=== PATIENT | female | born 1990 | race Caucasian/White ===

== ENCOUNTER 2019-10-07 11:23 | Emergency (ER) | payer OTHER ==
--- OUTSIDE RECORDS SUMMARY | 2019-10-07 11:28 | XMS REPORT ---
:1990 [facility] [address] [place] [address] Care Team Providers Name Role Phone MURPHY BARRIOS Unavailable Unavailable CAROLINA THOMPSON Unavailable Unavailable CIRILO ALAMO Unavailable Unavailable Payers Payer Name Policy Type Policy Number Effective Date Expiration Date Problems This patient has no known problems. Allergies, Adverse Reactions, Alerts Allergy Name Allergy Status Severity Reaction(s) Onset Inactive Treating Comments Type Date Date Clinician Sulfa DA Active [place] (Sulfonamide 08-10 Antibiotics) 00:00: 00 morphine DA Active [place] 08-10 00:00: 00 divalproex DA Active [place] sodium 08-10 00:00: 00 ethosuximide DA Active [place] 08-10 00:00: 00 adhesive DA Active [place] 08-10 00:00: 00 tizanidine DA Active [place] 08-10 00:00: 00 levetiracetam DA Active SV 08-10 00:00: 00 latex DA Active [place] 08-10 00:00: 00 Sulfa DA Active [place] (Sulfonamide 07-14 Antibiotics) 00:00: 00 morphine DA Active [place] 07-14 00:00: 00 divalproex DA Active [place] sodium 07-14 00:00: 00 ethosuximide DA Active [place] 07-14 00:00: 00 adhesive DA Active [place] 0 07-14 00:00: 00 tizanidine DA Active [place] 07-14 00:00: 00 levetiracetam DA Active 07-14 00:00: 00 latex DA Active [place] 07-14 00:00: 00 Medications This patient has no known medications. Results Test Description Test Time Test Comments Text Results Atomic Results Result Comments BASIC METABOLIC PANEL 2019-06-23 20:26:00 Test Item Value Reference Range Comments SODIUM (test code=NA) 140 mmol/l 134.0-147.0 POTASSIUM (test code=K) 4.4 mmol/L 3.6-5.2 CHLORIDE (test code=CL) 106 mmol/l 98.0-107.0 CARBON DIOXIDE (test code=CO2) 24.6 mmol/l 21.0-33.0 ANION GAP (test code=GAP) 13.8 0-20 GLUCOSE (test code=GLU) 103 mg/dl 70.0-110.0 BLOOD UREA NITROGEN (test code=BUN) 11 mg/dl 7.0-18.0 CREATININE (test code=CREAT) 0.86 mg/dL 0.60-1.30 GFR NON BLACK (test code=GFRNONBLACK) 82 mL/min 105-110 GFR BLACK (test code=GFRBLACK) 99 mL/min 127-133 CALCIUM (test code=CA) 9.0 mg/dl 8.0-10.5 BASIC METABOLIC [id number] 20:24:00 Test Item Value Reference Range Comments SODIUM (test code=NA) 140 mmol/l 134.0-147.0 POTASSIUM (test code=K) 4.4 mmol/L 3.6-5.2 CHLORIDE (test code=CL) 106 mmol/l 98.0-107.0 CARBON DIOXIDE (test code=CO2) 24.6 mmol/l 21.0-33.0 ANION GAP (test code=GAP) 13.8 0-20 GLUCOSE (test code=GLU) mg/dl 70.0-110.0 BLOOD UREA NITROGEN (test code=BUN) mg/dl 7.0-18.0 CREATININE (test code=CREAT) mg/dL 0.60-1.30 GFR NON BLACK (test code=GFRNONBLACK) mL/min 105-110 GFR BLACK (test code=GFRBLACK) mL/min 127-133 CALCIUM (test code=CA) mg/dl 8.0-10.5 CBC W/AUTO [id number] 20:19:00 Test Item Value Reference Range Comments WHITE BLOOD CELL (test code=WBC) 9.8 K/mm3 4.5-11.0 RED BLOOD CELL (test code=RBC) 4.45 M/mm3 3.80-5.20 HEMOGLOBIN (test code=HGB) 12.8 gm/dL 12.0-16.0 HEMATOCRIT (test code=HCT) 39.0 % 36.0-48.0 MEAN CELL VOLUME (test code=MCV) 87.6 UM3 82.0-99.0 MEAN CELL HGB (test code=MCH) 28.8 UUG 25.5-32.5 MEAN CELL HGB CONCETRATION (test code=MCHC) 32.8 gm/dL 29.0-35.5 RED CELL DISTRIBUTION WIDTH (test code=RDW) 13.4 % 11.5-15.0 RED CELL DISTRIBUTION WIDTH SD (test 42.6 fL 34.8-50.2 code=RDW-SD) PLATELET COUNT (test code=PLT) 418 K/mm3 150-400 MEAN PLATELET VOLUME (test code=MPV) 9.4 fl 7.4-10.4 NEUTROPHIL % (test code=NT%) 70.6 % 49.0-76.0 IMMATURE GRANULOCYTE % (test code=IG%) 0.3 % 0.0-0.4 LYMPHOCYTE % (test code=LY%) 20.2 % 23.0-38.0 MONOCYTE % (test code=MO%) 7.1 % 1.0-10.0 EOSINOPHIL % (test code=EO%) 1.4 % 1.0-5.0 BASOPHIL % (test code=BA%) 0.4 % 0.0-1.0 NEUTROPHIL # (test code=NT#) 6.9 K/mm3 2.4-6.3 IMMATURE GRANULOCYTE # (test code=IG#) 0.03 x10 3/uL 0.00-0.07 LYMPHOCYTE # (test code=LY#) 2.0 K/mm3 1.2-4.0 MONOCYTE # (test code=MO#) 0.7 K/mm3 0.0-0.6 EOSINOPHIL # (test code=EO#) 0.1 K/MM3 0.0-0.7 BASOPHIL # (test code=BA#) 0.0 K/mm3 0.0-0.2 - XR CHEST 1 [id number] 19:51:00 FAX: Romero Zamarripa MD [phone] [place]: St: REG Name: [facility] : 1990 Age/S: 29/F [address] [facility] Unit#: [id number] Loc: E.ERS2 [place], [place]: [place] [address] Acct: [id number] Dis Date: Status: REG ER PHONE #: [phone] Exam Date: 06/23/20191946 FAX #: [phone] Reason: SOB EXAMS: CPT CODE : [id number] XR CHEST 1 V 36921 AP VIEW OF THE CHEST LOCATION: R16 CLINICAL HISTORY: Shortness of breath. COMPARISON: Chest radiograph 04/16/2019. FINDINGS: The cardiomediastinal shadow is within normal limits. The lungs are clear. No pleural fluids. No acute bony abnormality is found. IMPRESSION: Unremarkable radiographic study of the chest. at 1950 Reported and signed by: Lilibeth Forbes M.D. CC: Romero Zamarripa MD Technologist: NEGRO GEE Trnscrd Date/Time/By: 06/23/2019 (1950) : By: Destin PAGE1 Signed Report FAX: Romero Zamarripa MD [phone] [place]: St: REG Name: [facility] : 1990 Age/S: 29/F [address] [facility] Unit #: [id number] Loc: E.[facility] [place], [place]: [place] [address] Acct: [id number] Dis Date: Status: REG ER PHONE #: [phone] Exam Date: 06/23/20191946 FAX #: [phone] Reason: SOB EXAMS: CPT CODE: [id number] XR CHEST 1 V 54518 <Continued> Orig Print D/T: S: 06/23/2019 (1953) PAGE 2 Signed ReportBASIC METABOLIC [id number] 07:11:00 Test Item Value Reference Range Comments SODIUM (test code=NA) 138 mmol/l 134.0-147.0 POTASSIUM (test code=K) 3.6 mmol/L 3.6-5.2 CHLORIDE (test code=CL) 105 mmol/l 98.0-107.0 CARBON DIOXIDE (test code=CO2) 25.9 mmol/l 21.0-33.0 ANION GAP (test code=GAP) 10.7 0-20 GLUCOSE (test code=GLU) 112 mg/dl 70.0-110.0 BLOOD UREA NITROGEN (test code=BUN) 7 mg/dl 7.0-18.0 CREATININE (test code=CREAT) 0.56 mg/dL 0.60-1.30 GFR NON BLACK (test code=GFRNONBLACK) 135 mL/min 105-110 GFR BLACK (test code=GFRBLACK) 163 mL/min 127-133 CALCIUM (test code=CA) 8.2 mg/dl 8.0-10.5 [id number] 07:11:00 Test Item Value Reference Range Comments MAGNESIUM (test code=MAG) 2.2 mg/dl 1.8-2.4 CBC W/AUTO [id number] 07:09:00 Test Item Value Reference Range Comments WHITE BLOOD CELL (test code=WBC) 6.8 K/mm3 4.5-11.0 RED BLOOD CELL (test code=RBC) 3.75 M/mm3 3.80-5.20 HEMOGLOBIN (test code=HGB) 10.8 gm/dL 12.0-16.0 HEMATOCRIT (test code=HCT) 34.6 % 36.0-48.0 MEAN CELL VOLUME (test code=MCV) 92.3 UM3 82.0-99.0 MEAN CELL HGB (test code=MCH) 28.8 UUG 25.5-32.5 MEAN CELL HGB CONCETRATION (test code=MCHC) 31.2 gm/dL 29.0-35.5 RED CELL DISTRIBUTION WIDTH (test code=RDW) 13.9 % 11.5-15.0 RED CELL DISTRIBUTION WIDTH SD (test 47.3 fL 34.8-50.2 code=RDW-SD) PLATELET COUNT (test code=PLT) 352 K/mm3 150-400 MEAN PLATELET VOLUME (test code=MPV) 9.3 fl 7.4-10.4 NEUTROPHIL % (test code=NT%) 59.8 % 49.0-76.0 IMMATURE GRANULOCYTE % (test code=IG%) 0.9 % 0.0-0.4 LYMPHOCYTE % (test code=LY%) 27.1 % 23.0-38.0 MONOCYTE % (test code=MO%) 9.5 % 1.0-10.0 EOSINOPHIL % (test code=EO%) 2.3 % 1.0-5.0 BASOPHIL % (test code=BA%) 0.4 % 0.0-1.0 NEUTROPHIL # (test code=NT#) 4.1 K/mm3 2.4-6.3 IMMATURE GRANULOCYTE # (test code=IG#) 0.06 x10 3/uL 0.00-0.07 LYMPHOCYTE # (test code=LY#) 1.9 K/mm3 1.2-4.0 MONOCYTE # (test code=MO#) 0.7 K/mm3 0.0-0.6 EOSINOPHIL # (test code=EO#) 0.2 K/MM3 0.0-0.7 BASOPHIL # (test code=BA#) 0.0 K/mm3 0.0-0.2 [id number] 19:58:00 Test Item Value Reference Range Comments GLUBED (test code=GLUBED) 133 mg/dL 70-110 [id number] 17:42:00 Test Item Value Reference Range Comments GLUBED (test code=GLUBED) 104 mg/dL 70-110 URINALYSIS [id number] 14:24:00 Test Item Value Reference Range Comments UA COLOR (test code=COLU) YELLOW UA APPEARANCE (test code=APPU) CLEAR UA GLUCOSE DIPSTICK (test code=DGLUU) NORMAL mg/dl NORMAL UA BILIRUBIN DIPSTICK (test code=BILU) NEGATIVE mg/dL NEGATIVE UA KETONE DIPSTICK (test code=KETU) 5 mg/dl mg/dl NEGATIVE UA SPECIFIC GRAVITY (test code=SGU) 1.010 1.000-1.030 UA BLOOD DIPSTICK (test code=RICHARD) NEGATIVE Ranjit/micL NEGATIVE UA PH DIPSTICK (test code=HEATHER) 8.0 5.0-9.0 UA PROTEIN DIPSTICK (test code=PROU) NEGATIVE mg/dl NEGATIVE UA UROBILINIOGEN DIPSTICK (test code=URO) NORMAL mg/dl NORMAL UA NITRITE DIPSTICK (test code=ESTEFANÍA) NEGATIVE NEGATIVE UA LEUKOCYTE ESTERASE DIPSTICK (test NEGATIVE Gilberto/micL NEGATIVE code=LEUU) UA WBC (test code=WBCU) 0-2 WBC/HPF NONE UA RBC (test code=RBCU) 0-2 RBC/HPF 0-3 UA EPITHELIAL CELLS (test code=EPIU) 0-3 EPI/HPF 0-3 UA BACTERIA (test code=BACU) NONE SEEN NONE URINALYSIS [id number] 14:17:00 Test Item Value Reference Range Comments UA COLOR (test code=COLU) UA APPEARANCE (test code=APPU) UA GLUCOSE DIPSTICK (test code=DGLUU) NORMAL mg/dl NORMAL UA BILIRUBIN DIPSTICK (test code=BILU) NEGATIVE mg/dL NEGATIVE UA KETONE DIPSTICK (test code=KETU) 5 mg/dl mg/dl NEGATIVE UA SPECIFIC GRAVITY (test code=SGU) 1.010 1.000-1.030 UA BLOOD DIPSTICK (test code=RICHARD) NEGATIVE Ranjit/micL NEGATIVE UA PH DIPSTICK (test code=HEATHER) 8.0 5.0-9.0 UA PROTEIN DIPSTICK (test code=PROU) NEGATIVE mg/dl NEGATIVE UA UROBILINIOGEN DIPSTICK (test code=URO) NORMAL mg/dl NORMAL UA NITRITE DIPSTICK (test code=ESTEFANÍA) NEGATIVE NEGATIVE UA LEUKOCYTE ESTERASE DIPSTICK (test NEGATIVE Gilberto/micL NEGATIVE code=LEUU) UA WBC (test code=WBCU) WBC/HPF NONE UA RBC (test code=RBCU) RBC/HPF 0-3 UA EPITHELIAL CELLS (test code=EPIU) EPI/HPF 0-3 UA BACTERIA (test code=BACU) NONE [id number] 12:23:00 Test Item Value Reference Range Comments GLUBED (test code=GLUBED) 110 mg/dL 70-110 THYROID STIMULATING [id number] 11:58:00 Test Item Value Reference Range Comments THYROID STIMULATING HORMONE 0.36 IU/ML 0.47-5.01 Result is in International (test code=TSH) Units/milliliter [id number] 10:57:00 Test Item Value Reference Range Comments MAGNESIUM (test code=MAG) 2.3 mg/dl 1.8-2.4 [id number] 07:07:00 Test Item Value Reference Range Comments GLUBED (test code=GLUBED) 112 mg/dL 70-110 BASIC METABOLIC [id number] 15:37:00 Test Item Value Reference Range Comments SODIUM (test code=NA) 132 mmol/l 134.0-147.0 POTASSIUM (test code=K) 3.9 mmol/L 3.6-5.2 CHLORIDE (test code=CL) 98 mmol/l 98.0-107.0 CARBON DIOXIDE (test code=CO2) 24.7 mmol/l 21.0-33.0 ANION GAP (test code=GAP) 13.2 0-20 GLUCOSE (test code=GLU) 189 mg/dl 70.0-110.0 BLOOD UREA NITROGEN (test code=BUN) 7 mg/dl 7.0-18.0 CREATININE (test code=CREAT) 0.77 mg/dL 0.60-1.30 GFR NON BLACK (test code=GFRNONBLACK) 93 mL/min 105-110 GFR BLACK (test code=GFRBLACK) 113 mL/min 127-133 CALCIUM (test code=CA) 9.0 mg/dl 8.0-10.5 BASIC METABOLIC [id number] 15:35:00 Test Item Value Reference Range Comments SODIUM (test code=NA) 132 mmol/l 134.0-147.0 POTASSIUM (test code=K) 3.9 mmol/L 3.6-5.2 CHLORIDE (test code=CL) 98 mmol/l 98.0-107.0 CARBON DIOXIDE (test code=CO2) 24.7 mmol/l 21.0-33.0 ANION GAP (test code=GAP) 13.2 0-20 GLUCOSE (test code=GLU) mg/dl 70.0-110.0 BLOOD UREA NITROGEN (test code=BUN) mg/dl 7.0-18.0 CREATININE (test code=CREAT) mg/dL 0.60-1.30 GFR NON BLACK (test code=GFRNONBLACK) mL/min 105-110 GFR BLACK (test code=GFRBLACK) mL/min 127-133 CALCIUM (test code=CA) mg/dl 8.0-10.5 - XR CHEST 1 [id number] 15:33:00 FAX: Romero Zamarripa MD [phone] [place]: St: PRE Name: [facility] : 1990 Age/S: 28/F [address] [facility] Unit#: [id number] Loc: E.ERS2 [place], [place]: [place] [address] Acct: [id number] Dis Date: Status: PRE ER PHONE #: [phone] Exam Date: 04/16/2019 1532 FAX #: [phone] Reason: SOB EXAMS: CPT CODE : [id number] XR CHEST 1 V 92707 Chest one view Clinical indication: Shortness ofbreath Comparison: 04/02/2019 Location B2 Lungs are clear. Heart, mediastinum and bony structures are unremarkable. Clothing artifact overlies the subscapular left upper lobe Impression: Normal at 1533 Reported and signed by: Rosa Soria M.D. CC: Romero Zamarripa MD Technologist: VIOLA TOPETE Trnscrd Date/Time/By: 01/2019 (1108) : By: Fina PAGE 1 Signed Report FAX: Romero Zamarripa MD [place]: St: PRE Name: ALDO MACIAS [facility] : 1990 Age/S: 28/F [address] [facility] Unit #: [id number] Loc: E.[address] Phys: [place] [address] Acct: [id number] Dis Date: Status: PRE ER PHONE #: [phone] Exam Date: 04/16/2019 1532 FAX #: [phone] Reason: SOB EXAMS: CPT CODE:[id number] XR CHEST 1 V 12152 <Continued> Orig Print D/T: S: 04/16/2019 (1973) PAGE 2 Signed ReportJACK[facility] W/AUTO [id number] 15:29:00 Test Item Value Reference Range Comments WHITE BLOOD CELL (test code=WBC) 14.4 K/mm3 4.5-11.0 RED BLOOD CELL (test code=RBC) 4.22 M/mm3 3.80-5.20 HEMOGLOBIN (test code=HGB) 12.0 gm/dL 12.0-16.0 HEMATOCRIT (test code=HCT) 37.9 % 36.0-48.0 MEAN CELL VOLUME (test code=MCV) 89.8 UM3 82.0-99.0 MEAN CELL HGB (test code=MCH) 28.4 UUG 25.5-32.5 MEAN CELL HGB CONCETRATION (test code=MCHC) 31.7 gm/dL 29.0-35.5 RED CELL DISTRIBUTION WIDTH (test code=RDW) 13.6 % 11.5-15.0 RED CELL DISTRIBUTION WIDTH SD (test 44.6 fL 34.8-50.2 code=RDW-SD) PLATELET COUNT (test code=PLT) 415 K/mm3 150-400 MEAN PLATELET VOLUME (test code=MPV) 10.1 fl 7.4-10.4 NEUTROPHIL % (test code=NT%) 83.7 % 49.0-76.0 IMMATURE GRANULOCYTE % (test code=IG%) 0.7 % 0.0-0.4 LYMPHOCYTE % (test code=LY%) 9.7 % 23.0-38.0 MONOCYTE % (test code=MO%) 4.9 % 1.0-10.0 EOSINOPHIL % (test code=EO%) 0.8 % 1.0-5.0 BASOPHIL % (test code=BA%) 0.2 % 0.0-1.0 NEUTROPHIL # (test code=NT#) 12.0 K/mm3 2.4-6.3 IMMATURE GRANULOCYTE # (test code=IG#) 0.10 x10 3/uL 0.00-0.07 LYMPHOCYTE # (test code=LY#) 1.4 K/mm3 1.2-4.0 MONOCYTE # (test code=MO#) 0.7 K/mm3 0.0-0.6 EOSINOPHIL # (test code=EO#) 0.1 K/MM3 0.0-0.7 BASOPHIL # (test code=BA#) 0.0 K/mm3 0.0-0.2 URINALYSIS [id number] 18:18:00 Test Item Value Reference Range Comments UA COLOR (test code=COLU) YELLOW UA APPEARANCE (test code=APPU) CLEAR UA GLUCOSE DIPSTICK (test code=DGLUU) NORMAL mg/dl NORMAL UA BILIRUBIN DIPSTICK (test code=BILU) NEGATIVE mg/dL NEGATIVE UA KETONE DIPSTICK (test code=KETU) NEGATIVE mg/dl NEGATIVE UA SPECIFIC GRAVITY (test code=SGU) 1.015 1.000-1.030 UA BLOOD DIPSTICK (test code=RICHARD) NEGATIVE Ranjit/micL NEGATIVE UA PH DIPSTICK (test code=HEATHER) 6.5 5.0-9.0 UA PROTEIN DIPSTICK (test code=PROU) NEGATIVE mg/dl NEGATIVE UA UROBILINIOGEN DIPSTICK (test code=URO) NORMAL mg/dl NORMAL UA NITRITE DIPSTICK (test code=ESTEFANÍA) NEGATIVE NEGATIVE UA LEUKOCYTE ESTERASE DIPSTICK (test NEGATIVE Gilberto/micL NEGATIVE code=LEUU) UA WBC (test code=WBCU) 1-3/HPF WBC/HPF NONE UA RBC (test code=RBCU) 0-2 RBC/HPF 0-3 UA EPITHELIAL CELLS (test code=EPIU) 0-3 EPI/HPF 0-3 UA BACTERIA (test code=BACU) TRACE NONE UR HCG [id number] 18:18:00 Test Item Value Reference Range Comments UR HCG QUAL (test code=HCGQLU) NEGATIVE NEGATIVE URINALYSIS [id number] 18:15:00 Test Item Value Reference Range Comments UA COLOR (test code=COLU) UA APPEARANCE (test code=APPU) UA GLUCOSE DIPSTICK (test code=DGLUU) NORMAL mg/dl NORMAL UA BILIRUBIN DIPSTICK (test code=BILU) NEGATIVE mg/dL NEGATIVE UA KETONE DIPSTICK (test code=KETU) NEGATIVE mg/dl NEGATIVE UA SPECIFIC GRAVITY (test code=SGU) 1.015 1.000-1.030 UA BLOOD DIPSTICK (test code=RICHARD) NEGATIVE Ranjit/micL NEGATIVE UA PH DIPSTICK (test code=HEATHER) 6.5 5.0-9.0 UA PROTEIN DIPSTICK (test code=PROU) NEGATIVE mg/dl NEGATIVE UA UROBILINIOGEN DIPSTICK (test code=URO) NORMAL mg/dl NORMAL UA NITRITE DIPSTICK (test code=ESTEFANÍA) NEGATIVE NEGATIVE UA LEUKOCYTE ESTERASE DIPSTICK (test NEGATIVE Gilberto/micL NEGATIVE code=LEUU) UA WBC (test code=WBCU) WBC/HPF NONE UA RBC (test code=RBCU) RBC/HPF 0-3 UA EPITHELIAL CELLS (test code=EPIU) EPI/HPF 0-3 UA BACTERIA (test code=BACU) NONE UR HCG [id number] 18:15:00 Test Item Value Reference Range Comments UR HCG QUAL (test code=HCGQLU) NEGATIVE NEGATIVE URINALYSIS [id number] 18:12:00 Test Item Value Reference Range Comments UA COLOR (test code=COLU) UA APPEARANCE (test code=APPU) UA GLUCOSE DIPSTICK (test code=DGLUU) NORMAL mg/dl NORMAL UA BILIRUBIN DIPSTICK (test code=BILU) NEGATIVE mg/dL NEGATIVE UA KETONE DIPSTICK (test code=KETU) NEGATIVE mg/dl NEGATIVE UA SPECIFIC GRAVITY (test code=SGU) 1.015 1.000-1.030 UA BLOOD DIPSTICK (test code=RICHARD) NEGATIVE Ranjit/micL NEGATIVE UA PH DIPSTICK (test code=HEATHER) 6.5 5.0-9.0 UA PROTEIN DIPSTICK (test code=PROU) NEGATIVE mg/dl NEGATIVE UA UROBILINIOGEN DIPSTICK (test code=URO) NORMAL mg/dl NORMAL UA NITRITE DIPSTICK (test code=ESTEFANÍA) NEGATIVE NEGATIVE UA LEUKOCYTE ESTERASE DIPSTICK (test NEGATIVE Gilberto/micL NEGATIVE code=LEUU) UA WBC (test code=WBCU) WBC/HPF NONE UA RBC (test code=RBCU) RBC/HPF 0-3 UA EPITHELIAL CELLS (test code=EPIU) EPI/HPF 0-3 UA BACTERIA (test code=BACU) NONE UR HCG [id number] 18:12:00 Test Item Value Reference Range Comments UR HCG QUAL (test code=HCGQLU) NEGATIVE COMPREHENSIVE METABOLIC [id number] 15:11:00 Test Item Value Reference Range Comments SODIUM (test code=NA) 136 mmol/l 134.0-147.0 POTASSIUM (test code=K) 4.3 mmol/L 3.6-5.2 CHLORIDE (test code=CL) 101 mmol/l 98.0-107.0 CARBON DIOXIDE (test code=CO2) 26.7 mmol/l 21.0-33.0 ANION GAP (test code=GAP) 12.6 0-20 GLUCOSE (test code=GLU) 206 mg/dl 70.0-110.0 BLOOD UREA NITROGEN (test code=BUN) 11 mg/dl 7.0-18.0 CREATININE (test code=CREAT) 0.65 mg/dL 0.60-1.30 GFR NON BLACK (test code=GFRNONBLACK) 113 mL/min 105-110 GFR BLACK (test code=GFRBLACK) 137 mL/min 127-133 TOTAL PROTEIN (test code=PROT) 8.2 gm/dL 6.4-8.2 ALBUMIN (test code=ALB) 4.0 gm/dl 3.2-4.7 CALCIUM (test code=CA) 9.2 mg/dl 8.0-10.5 BILIRUBIN TOTAL (test code=BILT) 0.3 mg/dl 0.0-1.0 SGOT/AST (test code=AST) 14 Units/L 15.0-37.0 SGPT/ALT (test code=ALT) 29 Units/L 12.0-78.0 ALKALINE PHOSPHATASE TOTAL (test code=ALKP) 75 Units/L 50.0-136.0 COMPREHENSIVE METABOLIC [id number] 14:59:00 Test Item Value Reference Range Comments SODIUM (test code=NA) 136 mmol/l 134.0-147.0 POTASSIUM (test code=K) 4.3 mmol/L 3.6-5.2 CHLORIDE (test code=CL) 101 mmol/l 98.0-107.0 CARBON DIOXIDE (test code=CO2) 26.7 mmol/l 21.0-33.0 ANION GAP (test code=GAP) 12.6 0-20 GLUCOSE (test code=GLU) mg/dl 70.0-110.0 BLOOD UREA NITROGEN (test code=BUN) mg/dl 7.0-18.0 CREATININE (test code=CREAT) mg/dL 0.60-1.30 GFR NON BLACK (test code=GFRNONBLACK) mL/min 105-110 GFR BLACK (test code=GFRBLACK) mL/min 127-133 TOTAL PROTEIN (test code=PROT) gm/dL 6.4-8.2 ALBUMIN (test code=ALB) gm/dl 3.2-4.7 CALCIUM (test code=CA) mg/dl 8.0-10.5 BILIRUBIN TOTAL (test code=BILT) mg/dl 0.0-1.0 SGOT/AST (test code=AST) Units/L 15.0-37.0 SGPT/ALT (test code=ALT) Units/L 12.0-78.0 ALKALINE PHOSPHATASE TOTAL (test code=ALKP) Units/L 50.0-136.0 CBC W/AUTO [id number] 14:56:00 Test Item Value Reference Range Comments WHITE BLOOD CELL (test code=WBC) 10.3 K/mm3 4.5-11.0 RED BLOOD CELL (test code=RBC) 4.34 M/mm3 3.80-5.20 HEMOGLOBIN (test code=HGB) 12.2 gm/dL 12.0-16.0 HEMATOCRIT (test code=HCT) 38.6 % 36.0-48.0 MEAN CELL VOLUME (test code=MCV) 88.9 UM3 82.0-99.0 MEAN CELL HGB (test code=MCH) 28.1 UUG 25.5-32.5 MEAN CELL HGB CONCETRATION (test code=MCHC) 31.6 gm/dL 29.0-35.5 RED CELL DISTRIBUTION WIDTH (test code=RDW) 14.2 % 11.5-15.0 RED CELL DISTRIBUTION WIDTH SD (test 45.8 fL 34.8-50.2 code=RDW-SD) PLATELET COUNT (test code=PLT) 449 K/mm3 150-400 MEAN PLATELET VOLUME (test code=MPV) 9.4 fl 7.4-10.4 NEUTROPHIL % (test code=NT%) 81.6 % 49.0-76.0 IMMATURE GRANULOCYTE % (test code=IG%) 1.0 % 0.0-0.4 LYMPHOCYTE % (test code=LY%) 11.5 % 23.0-38.0 MONOCYTE % (test code=MO%) 5.8 % 1.0-10.0 EOSINOPHIL % (test code=EO%) 0.0 % 1.0-5.0 BASOPHIL % (test code=BA%) 0.1 % 0.0-1.0 NEUTROPHIL # (test code=NT#) 8.4 K/mm3 2.4-6.3 IMMATURE GRANULOCYTE # (test code=IG#) 0.10 x10 3/uL 0.00-0.07 LYMPHOCYTE # (test code=LY#) 1.2 K/mm3 1.2-4.0 MONOCYTE # (test code=MO#) 0.6 K/mm3 0.0-0.6 EOSINOPHIL # (test code=EO#) 0.0 K/MM3 0.0-0.7 BASOPHIL # (test code=BA#) 0.0 K/mm3 0.0-0.2 - CT ANGIO [id number] 14:13:00 Name: ALDO MACIAS [facility] : 1990 Age/S: 28 / F [address] [place], [place] [address] Unit #: [id number] Loc: LUDY Laird77598 Phys: Corin Paulino [facility] Acct: [id number] Dis Date: Status: REG ER PHONE #: [phone] Exam Date: 04/02/2019 1340 FAX #: [phone] Reason: CHEST PAIN; EVALUATE FOR PE-HX OF PE EXAMS: CPTCODE: [id number] CT ANGIO CHEST [id number] PROCEDURE: CTA CHEST WITH IV CONTRAST AND 3-D MIP RECONSTRUCTION PULMONARY ARTERIES INDICATION: Acute chest pain. COMPARISON: Today's chest x-ray. TECHNIQUE: CTA of the pulmonary arteries was performed with 100 ml Isovue 300 intravenous contrast. Helical imaging performed apices to the lung bases. Multiplanar and 3-D MIP angiographic reconstructions are reviewed. CT imaging performed at this location utilizes radiation dose optimization techniques which include one or more of the following: - Automated exposure control -Adjustment of the mA and/or kV according to patient size -Use of iterative reconstruction technique CT Radiation Dose DLP 895.90 mGy-cm FINDINGS: PULMONARY ARTERIES: Normal enhancement without intraluminal filling defect. MEDIASTINUM: The thoracic aorta is normal. The mediastinal contents are normal. LUNGS: The lungs are clear. No pleural abnormality. UPPER ABDOMEN: Survey may be limited by early phase of contrast enhancement. No abnormality demonstrated. MUSCULOSKELETAL: The skeleton is intact. IMPRESSION: Normal exam. No evidence of pulmonary emboli. END IMPRESSION [id number] PAGE 1 Signed Report (CONTINUED) Name: ALDO MACIAS [facility] : 1990 Age/S: 28 / F [address] [place] [address] Unit #: [id number] Loc: LUDY Laird [address] Phys: Corin Paulino [facility] Acct: [id number] Dis Date: Status: REG ER PHONE #: [phone] Exam Date: 04/02/2019 1340 FAX #: [phone] Reason: CHEST PAIN; EVALUATE FOR PE-HX OF PE EXAMS: CPT CODE: [id number] CT ANGIO CHEST [address]307 < Continued> at 1413 Reported and signed by: Rudi Adams M.D. CC: Romero Zamarripa MD; Corin Paulino Technologist:Kota Bergeron RT(R) CTDI: DLP: Trnscb Date/Time : 04/02/2019 (1412) [email or web address] Orig Print D/T: S: 2018(1119) PAGE 2 Signed ReportPROTHROMBIN [id number] 12:41:00 Test Item Value Reference Range Comments PROTHROMBIN TIME PATIENT 11.6 SECONDS 9.3-12.9 (test code=PTP) INTERNATIONAL NORMAL RATIO 1.0 0.8-1.2 TARGET INR BY (test code=INR) INDICATION Indication INR1. Prophylaxis of venous thrombosis 2.0 - 3.0 (orthopedic surgery), Prophylaxis of venous thrombosis (other than high-risk surgery), Treatment of Deep Vein Thrombosis/Pulmonary Embolism, Prevention of systemic embolism - Tissue heart valves, Acute Myocardial Infarction (to prevent systemic embolism), Valvular heart disease, Atrial Fibrillation, Bileaflet mechanical valve in aortic position.2. Mechanical prosthetic valves (high risk), 2.5 - 3.5 Presence of Lupus Anticoagulant or Antiphospholipid Antibodies, Prevention of systemic embolism - Acute Myocardial Infarction (to prevent recurrent infarct). THROMBOPLASTIN TIME [id number] 12:41:00 Test Item Value Reference Range Comments THROMBOPLASTIN TIME PARTIAL 31.7 Seconds 25.0-39.5 Therapeutic Range: (test code=PTT) 50.4 - 88.3 Seconds Effective 02/27/2019 [id number] 12:41:00 Test Item Value Reference Range Comments D-DIMER (test 258 ng/mlFEU <=500 THROMBOSIS AND/OR PULMONARY code=DDIMER) EMBOLISM AND THE CLINICAL CUT- OFF VALUE FOR EXCLUSION (500 ng/mL FEU) OF THESE CONDITIONSIS VALIDATED BY THE CUSTOMER DEVELOPMENT MANAGER OF THE METHOD. A NEGATIVE D-DIMER RESULT WHEN COMBINED WITH A CLINICALASSESSMENT OF LOW PRETEST PROBABILITY HAS BEEN SHOWN TO HAVEA HIGH NEGATIVE PREDICTIVE VALUE OF DVT OR PE. D-DIMER VALUES >500 ng/mL FEU ARE NOT DIAGNOSTIC FOR DVT, PEor DIC WITHOUT OTHER CONFIRMATORY TESTS AND APPROPRIATECLINICAL EUALUATIONS. HCG SERUM [id number] 12:36:00 Test Item Value Reference Range Comments HCG SERUM QUAL (test code=HCGQL) SERUM NEGATIVE NEGATIVE [id number] 12:23:00 Test Item Value Reference Range Comments METHEMOGLOBIN (test code=METHGB) 0.0 % 0-1.5 CBC W/AUTO [id number] 10:43:00 Test Item Value Reference Range Comments WHITE BLOOD CELL (test code=WBC) 7.67 x10 3/uL 4.5-11.0 RED BLOOD CELL (test code=RBC) 4.15 x10 6/uL 3.54-5.02 HEMOGLOBIN (test code=HGB) 11.9 g/dL 11.0-15.0 HEMATOCRIT (test code=HCT) 37.6 % 33.0-45.0 MEAN CELL VOLUME (test code=MCV) 90.6 fL 81.0-99.0 MEAN CELL HGB (test code=MCH) 28.7 pg 27.0-33.0 MEAN CELL HGB CONCETRATION (test code=MCHC) 31.6 g/dL 33.0-37.0 RED CELL DISTRIBUTION WIDTH CV (test code=RDW) 14.5 % 11.5-14.5 RED CELL DISTRIBUTION WIDTH SD (test 47.7 fL 37.0-54.0 code=RDW-SD) PLATELET COUNT (test code=PLT) 398 x10 3/uL 150-400 MEAN PLATELET VOLUME (test code=MPV) 9.7 fL 7.0-9.0 NEUTROPHIL % (test code=NT%) 65.4 % 56.0-77.0 IMMATURE GRANULOCYTE % (test code=IG%) 0.9 % 0.0-2.0 LYMPHOCYTE % (test code=LY%) 21.8 % 14.0-32.0 MONOCYTE % (test code=MO%) 9.4 % 4.8-9.0 EOSINOPHIL % (test code=EO%) 2.0 % 0.3-3.7 BASOPHIL % (test code=BA%) 0.5 % 0.0-2.0 NUCLEATED RBC % (test code=NRBC%) 0.0 % 0-0 NEUTROPHIL # (test code=NT#) 5.02 x10 3/uL 2.0-7.6 IMMATURE GRANULOCYTE # (test code=IG#) 0.07 x10 3/uL 0.00-0.03 LYMPHOCYTE # (test code=LY#) 1.67 x10 3/uL 1.0-3.8 MONOCYTE # (test code=MO#) 0.72 x10 3/uL 0.1-0.8 EOSINOPHIL # (test code=EO#) 0.15 x10 3/uL 0.0-0.2 BASOPHIL # (test code=BA#) 0.04 x10 3/uL 0.0-0.2 NUCLEATED RBC # (test code=NRBC#) 0.00 x10 3/uL 0.0-0.1 MANUAL DIFF REQUIRED (test code=MDIFF) NO COMPREHENSIVE METABOLIC [id number] 10:35:00 Test Item Value Reference Range Comments SODIUM (test code=NA) 136 mEq/L 134-147 POTASSIUM (test code=K) 4.1 mEq/L 3.4-5.0 CHLORIDE (test code=CL) 105 mEq/L 100-108 CARBON DIOXIDE (test code=CO2) 25 mEq/L 21-33 ANION GAP (test code=GAP) 10 0-20 GLUCOSE (test code=GLU) 126 mg/dL 70-110 BLOOD UREA NITROGEN (test 8 mg/dL 7-18 code=BUN) GLOMERULAR FILTRATION RATE 144.9 105-110 Units of (test code=GFR) measure=ml/min/1.73 m2 CREATININE (test code=CREAT) 0.5 mg/dL 0.6-1.3 TOTAL PROTEIN (test code=PROT) 7.4 g/dL 6.4-8.2 ALBUMIN (test code=ALB) 3.60 g/dL 3.4-5.0 CALCIUM (test code=CA) 8.6 mg/dL 8.0-10.5 BILIRUBIN TOTAL (test 0.30 mg/dL 0.0-1.0 code=BILT) SGOT/AST (test code=AST) 25 IUnit/L 15-37 SGPT/ALT (test code=ALT) 53 IUnit/L 15-65 ALKALINE PHOSPHATASE TOTAL 85 IUnit/L 20-125 (test code=ALKP) [id number] 10:35:00 Test Item Value Reference Range Comments LIPASE (test code=LIP) 85 IUnit/L 73-393 COMPREHENSIVE METABOLIC [id number] 10:31:00 Test Item Value Reference Range Comments SODIUM (test code=NA) 136 mEq/L 134-147 POTASSIUM (test code=K) 4.1 mEq/L 3.4-5.0 CHLORIDE (test code=CL) 105 mEq/L 100-108 CARBON DIOXIDE (test code=CO2) 25 mEq/L 21-33 ANION GAP (test code=GAP) 10 0-20 GLUCOSE (test code=GLU) 126 mg/dL 70-110 BLOOD UREA NITROGEN (test 8 mg/dL 7-18 code=BUN) GLOMERULAR FILTRATION RATE 144.9 105-110 Units of (test code=GFR) measure=ml/min/1.73 m2 CREATININE (test code=CREAT) 0.5 mg/dL 0.6-1.3 TOTAL PROTEIN (test code=PROT) g/dL 6.4-8.2 ALBUMIN (test code=ALB) 3.60 g/dL 3.4-5.0 CALCIUM (test code=CA) 8.6 mg/dL 8.0-10.5 BILIRUBIN TOTAL (test mg/dL 0.0-1.0 code=BILT) SGOT/AST (test code=AST) 25 IUnit/L 15-37 SGPT/ALT (test code=ALT) 53 IUnit/L 15-65 ALKALINE PHOSPHATASE TOTAL IUnit/L 20-125 (test code=ALKP) [id number] 10:31:00 Test Item Value Reference Range Comments LIPASE (test code=LIP) 85 IUnit/L 73-393 URINALYSIS [id number] 10:26:00 Test Item Value Reference Range Comments UA COLOR (test code=COLU) YELLOW YEL/STRAW UA APPEARANCE (test code=APPU) CLEAR CLEAR UA GLUCOSE DIPSTICK (test code=DGLUU) NEGATIVE NEGATIVE UA BILIRUBIN DIPSTICK (test code=BILU) NEGATIVE NEGATIVE UA KETONE DIPSTICK (test code=KETU) NEGATIVE NEGATIVE UA SPECIFIC GRAVITY (test code=SGU) 1.011 1.005-1.030 UA BLOOD DIPSTICK (test code=RICHARD) NEGATIVE NEGATIVE UA PH DIPSTICK (test code=HEATHER) 7.0 5.0-7.0 UA PROTEIN DIPSTICK (test code=PROU) NEGATIVE NEGATIVE UA UROBILINIOGEN DIPSTICK (test code=URO) 0.2 mg/dL 0.2-1.0 UA NITRITE DIPSTICK (test code=ESTEFANÍA) NEGATIVE NEGATIVE UA LEUKOCYTE ESTERASE DIPSTICK (test NEGATIVE NEGATIVE code=LEUU) UA WBC (test code=WBCU) 0-3 WBC/HPF 0-3 UA RBC (test code=RBCU) 0-3 RBC/HPF 0-3 UA BACTERIA (test code=BACU) NONE SEEN /HPF NONE SEEN UA SQUAMOUS CELLS (test code=SQU) 0-5 /HPF NONE SEEN UA MUCUS (test code=MUCU) 1+ /LPF NONE SEEN - XR CHEST 2 [id number] 10:26:00 FAX: Romero Zamarripa MD [phone] [place]: St: REG FAX: Corin PaulinoP [phone] --- Name: ALDO MACIAS [facility] : 1990 Age/S: 28/F [address] [place] [address] Unit #: [id number] Loc: [place] [address] Phys: Corin PaulinoP Acct: [id number] Dis Date: Status: REG ER PHONE #: [phone] Exam Date: 04/02/2019 1014 FAX #: [phone] Reason: CHEST PAIN EXAMS: CPT CODE: [id number] XR CHEST 2 V 74564 CHEST RADIOGRAPHS - PA AND LATERAL: COMPARISON: July 14, 2017 CLINICAL HISTORY: CHEST PAIN The cardiopericardial silhouette is within normal limits. Lungsare clear. No vascular congestion or pneumothorax. IMPRESSION: No acute pulmonary abnormality. at 1026 Reported and signed by: Rayshawn Teran M.D. CC: Romero Zamarripa MD; Corin Paulino Technologist: Logan Owens RT(R) Trnscrd Date/Time/By: 04/02/2019 (2426) : By: [email or web address] Orig Print D/T: S: 04/02/2019 (6686) PAGE 1 Signed ReportURINALYSIS W/ [id number] 23:33:00 Test Item Value Reference Range Comments COLOR (BEAKER) (test xgzu=474) Yellow CLARITY (BEAKER) (test wbvy=144) Clear SPECIFIC GRAVITY UA (BEAKER) (test rcka=912) 1.025 1.001-1.035 PH UA (BEAKER) (test gntf=427) 6.5 5.0-8.0 PROTEIN UA (BEAKER) (test mroa=651) 30 mg/dL Negative GLUCOSE UA (BEAKER) (test namz=230) Negative Negative KETONES UA (BEAKER) (test wyzt=611) Negative Negative BILIRUBIN UA (BEAKER) (test jewk=822) Negative Negative BLOOD UA (BEAKER) (test lkzl=326) Moderate Negative NITRITE UA (BEAKER) (test xvkh=002) Negative Negative LEUKOCYTE ESTERASE UA (BEAKER) (test gffr=023) Negative Negative UROBILINOGEN UA (BEAKER) (test fziv=077) 0.2 mg/dL 0.2-1.0 RBC UA (BEAKER) (test gtvg=674) 108 /HPF WBC UA (BEAKER) (test ulyg=449) 3 /HPF MUCUS (BEAKER) (test pepk=9324) Moderate SQUAMOUS EPITHELIAL (BEAKER) (test uytg=485) 2 /HPF SOURCE(BEAKER) (test oglf=8927) SCREEN, [id number] 23:28:00 Test Item Value Reference Range Comments TEST URINE (BEAKER) (test zgze=687) Negative [id number] 21:25:00 Test Item Value Reference Range Comments LIPASE (BEAKER) (test nmtp=409) 25 U/L 8-78 [id number] 21:25:00 Test Item Value Reference Range Comments AMYLASE (BEAKER) (test jxnt=754) 40 U/L 25-125 Specimen slightly hemolyzed BASIC METABOLIC [id number] 21:25:00 Test Item Value Reference Range Comments SODIUM (BEAKER) (test 136 meq/L 136-145 btga=856) POTASSIUM (BEAKER) (test 4.2 meq/L 3.5-5.1 Specimen slightly qxvz=929) hemolyzed CHLORIDE (BEAKER) (test 104 meq/L 98-107 pgah=428) CO2 (BEAKER) (test 25 meq/L 22-29 rzzl=389) BLOOD UREA NITROGEN 13 mg/dL 7-21 (BEAKER) (test eeui=275) CREATININE (BEAKER) (test 0.65 mg/dL 0.57-1.25 Specimen slightly geuh=829) hemolyzed GLUCOSE RANDOM (BEAKER) 128 mg/dL 70-105 (test giey=329) CALCIUM (BEAKER) (test 9.5 mg/dL 8.4-10.2 suny=549) EGFR (BEAKER) (test 107 mL/min/1.73 sq m ESTIMATED GFR IS NOT uarm=4546) ACCURATE CREATININE CLEARANCE IN PREDICTING GLOMERULAR FILTRATION RATE. ESTIMATED GFR IS NOT APPLICABLE FOR DIALYSIS PATIENTS. HEPATIC FUNCTION [id number] 21:25:00 Test Item Value Reference Range Comments TOTAL PROTEIN (BEAKER) (test 7.6 gm/dL 6.0-8.3 Specimen slightly hemolyzed bcko=191) ALBUMIN (BEAKER) (test 4.1 g/dL 3.5-5.0 Specimen slightly hemolyzed yixp=0345) BILIRUBIN TOTAL (BEAKER) (test 0.3 mg/dL 0.2-1.2 Specimen slightly hemolyzed pano=776) BILIRUBIN DIRECT (BEAKER) (test 0.2 mg/dL 0.1-0.5 Specimen slightly hemolyzed fgwr=892) ALKALINE PHOSPHATASE (BEAKER) 75 U/L 40-150 (test fxsc=695) AST (SGOT) (BEAKER) (test 24 U/L 5-34 Specimen slightly hemolyzed sedl=153) ALT (SGPT) (BEAKER) (test 43 U/L 6-55 Specimen slightly hemolyzed pytl=379) CBC W/PLT COUNT & AUTO [id number] 21:07:00 Test Item Value Reference Range Comments WHITE BLOOD CELL COUNT (BEAKER) (test zrmr=293) 9.9 K/ L 3.5-10.5 RED BLOOD CELL COUNT (BEAKER) (test izir=057) 4.33 M/ L 3.93-5.22 HEMOGLOBIN (BEAKER) (test bxtj=287) 12.6 GM/DL 11.2-15.7 HEMATOCRIT (BEAKER) (test bzit=612) 40.4 % 34.1-44.9 MEAN CORPUSCULAR VOLUME (BEAKER) (test dcoa=266) 93.3 fL 79.4-94.8 MEAN CORPUSCULAR HEMOGLOBIN (BEAKER) (test 29.1 pg 25.6-32.2 ewle=299) MEAN CORPUSCULAR HEMOGLOBIN CONC (BEAKER) (test 31.2 GM/DL 32.2-35.5 ajob=043) RED CELL DISTRIBUTION WIDTH (BEAKER) (test 14.0 % 11.7-14.4 vlpr=444) PLATELET COUNT (BEAKER) (test kxza=331) 417 K/CU MM 150-450 MEAN PLATELET VOLUME (BEAKER) (test yate=077) 9.3 fL 9.4-12.3 NUCLEATED RED BLOOD CELLS (BEAKER) (test 0 /100 WBC 0-0 vlyv=785) NEUTROPHILS RELATIVE PERCENT (BEAKER) (test 69 % gnmb=884) LYMPHOCYTES RELATIVE PERCENT (BEAKER) (test 21 % soep=829) MONOCYTES RELATIVE PERCENT (BEAKER) (test 7 % cwqh=027) EOSINOPHILS RELATIVE PERCENT (BEAKER) (test 1 % zbkg=977) BASOPHILS RELATIVE PERCENT (BEAKER) (test 0 % zbwu=155) NEUTROPHILS ABSOLUTE COUNT (BEAKER) (test 6.77 K/ L 1.56-6.13 syaz=923) LYMPHOCYTES ABSOLUTE COUNT (BEAKER) (test 2.09 K/ L 1.18-3.74 xdlj=232) MONOCYTES ABSOLUTE COUNT (BEAKER) (test 0.72 K/ L 0.24-0.36 qozl=083) EOSINOPHILS ABSOLUTE COUNT (BEAKER) (test 0.13 K/ L 0.04-0.36 oeyf=278) BASOPHILS ABSOLUTE COUNT (BEAKER) (test 0.04 K/ L 0.01-0.08 nfeg=778) IMMATURE GRANULOCYTES-RELATIVE PERCENT (BEAKER) 1 % 0-1 (test awjb=2320) CT, [id number] 15:27:00Reason for exam:->abdominal painIs the patient ?->NoWhat is the patient's sedation requirement?->No SedationFINAL REPORT TECHNIQUE: CT of the abdomen and pelvis WITH intravenous contrast and WITHOUT oral contrast. Dose modulation, iterative reconstruction, and/or weight-based adjustment of the mA/kV was utilized to reduce the radiation dose to as low as reasonably achievable. INDICATION: Abdominal pain. COMPARISON: None. FINDINGS: LOWER THORAX: Unremarkable. HEPATOBILIARY: No focal hepatic lesions. Prior cholecystectomy. No biliary ductal dilatation.SPLEEN: 14.1 cm splenomegaly.PANCREAS: No focal masses or ductal dilatation. ADRENALS: No adrenal nodules.KIDNEYS/URETERS: No hydronephrosis, stones, or solid mass lesions.PELVIC ORGANS/BLADDER: A 2.3 similar hypoenhancing lesion off of the left anterior uterus is most consistent with a subserosal, exophytic leiomyoma. An additional similar lesion off of the lower uterine segment measures 2.2 cm and is also most likely a leiomyoma. Normal premenopausal appearance of the ovaries. PERITONEUM/RETROPERITONEUM: No free air or fluid.LYMPH NODES: No lymphadenopathy.VESSELS: Unremarkable. GI TRACT: No distention or wall thickening. Gastrojejunostomy tube with tip in the proximal jejunum. Prior appendectomy. There appears to be a connection between a portion of jejunum and the skin is seen on images 46 through 51. BONES AND SOFT TISSUES:Unremarkable. IMPRESSION: 1.No definite explanation for the abdominal pain on this CT. 2.There appears to be a connection between the jejunum and the skin. This could be a site of a prior jejunostomy or a fistula. 3.Mild splenomegaly. 4.Leiomyomas of the uterus. Signed: Keny Pittman MDReport Verified Date/Time: 09/04/2018 15:27:26 Reading Location: [address] Radiology Reading Room Electronically signed by: KENY PITTMAN MD on 03:27 PMHEPATIC FUNCTION [id number] 14:11:00 Test Item Value Reference Range Comments TOTAL PROTEIN (BEAKER) (test oups=542) 7.7 gm/dL 6.0-8.5 ALBUMIN (BEAKER) (test xuan=4172) 4.0 g/dL 3.5-5.0 BILIRUBIN TOTAL (BEAKER) (test fqxo=046) 0.6 mg/dL 0.1-1.2 BILIRUBIN DIRECT (BEAKER) (test mkdv=898) 0.4 mg/dL 0.0-0.4 ALKALINE PHOSPHATASE (BEAKER) (test ipec=951) 62 U/L 30-115 AST (SGOT) (BEAKER) (test sdad=448) 36 U/L 5-40 ALT (SGPT) (BEAKER) (test ofxt=835) 33 U/L 5-50 [id number] 14:11:00 Test Item Value Reference Range Comments LIPASE (BEAKER) (test helb=504) 81 U/L 40-240 BASIC METABOLIC [id number] 14:11:00 Test Item Value Reference Range Comments SODIUM (BEAKER) (test 137 meq/L 135-148 trao=362) POTASSIUM (BEAKER) (test 4.4 meq/L 3.6-5.5 tbha=228) CHLORIDE (BEAKER) (test 101 meq/L 98-106 fixp=597) CO2 (BEAKER) (test 23 meq/L 24-32 uuqq=841) BLOOD UREA NITROGEN 13 mg/dL 10-26 (BEAKER) (test rovi=647) CREATININE (BEAKER) (test 0.47 mg/dL 0.50-1.20 jgzj=314) GLUCOSE RANDOM (BEAKER) 117 mg/dL 70-110 (test wewp=199) CALCIUM (BEAKER) (test 9.0 mg/dL 8.5-10.5 ohkd=012) EGFR (BEAKER) (test 156 mL/min/1.73 sq m ESTIMATED GFR IS NOT svsp=1296) ACCURATE CREATININE CLEARANCE IN PREDICTING GLOMERULAR FILTRATION RATE. ESTIMATED GFR IS NOT APPLICABLE FOR DIALYSIS PATIENTS. URINALYSIS W/ [id number] 14:05:00 Test Item Value Reference Range Comments COLOR (BEAKER) (test tkrx=009) Yellow CLARITY (BEAKER) (test ilap=074) Clear SPECIFIC GRAVITY UA (BEAKER) (test iysn=241) 1.015 1.001-1.035 PH UA (BEAKER) (test rrxy=776) 7.0 5.0-8.0 PROTEIN UA (BEAKER) (test iget=904) Negative Negative GLUCOSE UA (BEAKER) (test pczz=461) Negative Negative KETONES UA (BEAKER) (test kphj=848) Negative Negative BILIRUBIN UA (BEAKER) (test rbbu=787) Negative Negative BLOOD UA (BEAKER) (test twqf=229) Negative Negative NITRITE UA (BEAKER) (test lslk=399) Positive Negative LEUKOCYTE ESTERASE UA (BEAKER) (test Negative Negative fdgz=966) UROBILINOGEN UA (BEAKER) (test nbeq=426) 0.2 mg/dL 0.2-1.0 BACTERIA (BEAKER) (test ylax=739) Moderate AMORPHOUS CRYSTALS (BEAKER) (test jcmq=2270) Few RBC UA-MANUAL (BEAKER) (test tsul=5641) None Seen /HPF WBC UA-MANUAL (BEAKER) (test guqk=3719) <5 /HPF SQUAMOUS EPITHELIAL MANUAL (BEAKER) (test <5 /HPF qruj=1917) SOURCE(BEAKER) (test hfto=0053) SCREEN, [id number] 14:00:00 Test Item Value Reference Range Comments TEST URINE (BEAKER) (test bjmc=424) Negative CBC W/PLT COUNT & AUTO [id number] 13:59:00 Test Item Value Reference Range Comments WHITE BLOOD CELL COUNT (BEAKER) (test aesj=350) 10.9 K/ L 4.0-10.0 RED BLOOD CELL COUNT (BEAKER) (test cagx=729) 4.27 M/ L 4.00-5.00 HEMOGLOBIN (BEAKER) (test uahl=360) 12.3 GM/DL 12.0-15.0 HEMATOCRIT (BEAKER) (test xebl=204) 37.9 % 36.0-45.0 MEAN CORPUSCULAR VOLUME (BEAKER) (test sesx=522) 88.7 fL 82.0-99.0 MEAN CORPUSCULAR HEMOGLOBIN (BEAKER) (test 28.7 pg 27.0-33.0 srgg=984) MEAN CORPUSCULAR HEMOGLOBIN CONC (BEAKER) (test 32.4 GM/DL 32.0-36.0 sixp=306) RED CELL DISTRIBUTION WIDTH (BEAKER) (test 13.7 % 10.3-14.2 fyyd=338) PLATELET COUNT (BEAKER) (test fwtd=894) 577 K/CU MM 150-430 MEAN PLATELET VOLUME (BEAKER) (test ftyz=145) 7.4 fL 6.5-10.5 NEUTROPHILS RELATIVE PERCENT (BEAKER) (test 68 % bazj=220) LYMPHOCYTES RELATIVE PERCENT (BEAKER) (test 21 % icpw=199) MONOCYTES RELATIVE PERCENT (BEAKER) (test 8 % lckx=621) EOSINOPHILS RELATIVE PERCENT (BEAKER) (test 2 % xqaq=944) BASOPHILS RELATIVE PERCENT (BEAKER) (test 1 % popb=612) NEUTROPHILS ABSOLUTE COUNT (BEAKER) (test 7.41 K/ L 1.80-8.00 whfl=504) LYMPHOCYTES ABSOLUTE COUNT (BEAKER) (test 2.30 K/ L 1.48-4.50 uxgs=589) MONOCYTES ABSOLUTE COUNT (BEAKER) (test 0.91 K/ L 0.00-1.30 rljt=020) EOSINOPHILS ABSOLUTE COUNT (BEAKER) (test 0.20 K/ L 0.00-0.50 twtl=321) BASOPHILS ABSOLUTE COUNT (BEAKER) (test 0.11 K/ L 0.00-0.20 jhfu=341) PROTHROMBIN [id number] 09:47:00 Test Item Value Reference Range Comments PROTIME (BEAKER) (test otob=331) 16.2 seconds 11.7-14.7 INR (BEAKER) (test nsck=241) 1.3 <=5.9 RECOMMENDED COUMADIN/WARFARIN INR THERAPY RANGESSTANDARD DOSE: 2.0 - 3.0 Includes: PROPHYLAXIS forvenous thrombosis, systemic embolization; TREATMENT for venous thrombosis and/or pulmonary embolus.HIGH RISK: Target INR is 2.5-3.5 for patients with mechanical heart valves.POCT-GLUCOSE [id number] 09:37:00 Test Item Value Reference Range Comments POC-GLUCOSE METER (BEAKER) 95 mg/dL 70-110 [facility]ED AT [facility] [address] (test rkiu=2321) [facility] [address]
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
--- OUTSIDE RECORDS SUMMARY | 2019-10-07 11:28 | XMS REPORT | Summary of Care ---
:1990 Author Organization [facility] Address [address] [place] [address] Care Team Providers Name Role Phone Nohemy Wu Haas Unavailable Unavailable Joe Regalado MD Unavailable Arina Escudero AUD Unavailable Unavailable Romero Zamarripa MD Insurance Hmo Romero Zamarripa MD Primary Care Provider Reason for Visit Reason Comments Authorization Encounter Details Date Type Department Care Team Description 06/13/2019 Telephone [facility] Family Adid Staley MD Authorization [address] 100 Primary Care [place] [id number] [place] [address] [phone] [address] [place] [address] Allergies Active Allergy Reactions Severity Noted Date [...] as of this encounter (statuses as of 06/13/2019) Medications Medication Sig Dispensed Refills Start Date End Date Status ranitidine 300 mg Take one tablet 30 tablet 2 02/21/2017 Active tablet each night before bedtime diclofenac 3 % gel 0 09/28/2017 Active fluticasone-salmeterol Inhale 2 Puffs 2 12 Inhaler 5 07/28/2018 Active (ADVAIR HFA) 230-21 (two) times mcg/actuation inhaler daily. olopatadine (PAZEO) 0.7 Place 1 Drop in 2.5 mL 11 08/02/2018 Active % Drop each eye daily. fluticasone (FLONASE [...] fibr (ISOSOURCE through feeding 1.5 [place]) 0.07 gram-1.5 tube daily. kcal/mL Liqd albuterol 2.5 mg /3 mL Inhale 3 mL 1 Box 6 09/11/2018 Active (0.083 %) nebulizer every 4 (four) solution hours as needed for Wheezing or Shortness of Breath. ipratropium 0.02 % Inhale 2.5 mL 30 Vial 6 09/11/2018 Active nebulizer solution every 6 (six) hours as needed for Wheezing or Shortness of Breath. Lancets (ONETOUCH Use lancet BID 100 Each 3 01/16/2019 Active ULTRASOFT LANCETS) MiscIndications: Type 2 diabetes mellitus without complication, without long-term current use of insulin povidone-iodine Apply to 100 mL 1 02/07/2019 Active (BETADINE) 10 % area(s) as solutionIndications: needed (wound). Wound abscess Vit Take 1 tablet by 90 tablet 3 02/07/2019 Active 02-Ipye-XW-DSS 90-1-50 mouth daily. mg per tabletIndications: Secondary oligomenorrhea, Patient desires metoprolol succinate XL Take 0.5 tablets 45 tablet 0 02/09/2019 Active 25 mg 24 hr tablet by mouth daily. diphenhydrAMINE Take 50 mg by 0 Active (BENADRYL) 25 mg mouth. capsuleIndications: pt stated that she takes it every 8hrs PRN, for allergy PNV Take 1 tablet by 30 tablet 11 03/05/2019 Active Comb.Fl81-Rwbd,Carb-FA- mouth daily. DSS 29-1-50 mg TbECIndications: Encounter for preconception consultation baclofen 10 mg Take 1 tablet by 90 tablet 0 03/22/2019 Active tabletIndications: Neck mouth 3 (three) muscle spasm times daily. ONETOUCH VERIO USE 1 STRIP 2 50 Strip 3 04/18/2019 Active stripIndications: Type (TWO) TIMES 2 diabetes mellitus DAILY. without complication, without long-term current use of insulin mupirocin 2 % ointment Apply to 30 g 0 04/20/2019 Active area(s) 3 (three) times daily. nystatin 100,000 Apply to 30 g 1 04/20/2019 Active unit/gram powder area(s) 2 (two) times daily. amitriptyline 50 mg Take 1 tablet by 30 tablet 2 05/06/2019 Active tabletIndications: mouth at Abdominal pain, bedtime. unspecified abdominal location AZELASTINE 137 mcg (0.1 USE 1 SPRAY IN 1 Bottle 1 05/08/2019 Active %) nasal EACH NOSTRIL 2 sprayIndications: Upper (TWO) TIMES respiratory infection DAILY. with cough and congestion promethazine 6.25 mg/5 Take 20 mL by 473 mL 11 05/09/2019 Active mL solutionIndications: mouth every 6 Nausea and vomiting, (six) hours as intractability of needed for vomiting not specified, Nausea and unspecified vomiting Vomiting (N/V). type butalbital-acetaminophe Take 1 tablet by 20 tablet 0 05/16/2019 Active n-caff 50-325-40 mg mouth every 6 tabletIndications: (six) hours as Nonintractable needed (prn headache, unspecified for). chronicity pattern, unspecified headache type dicyclomine 10 mg Take 1 capsule 90 capsule 3 05/22/2019 Active capsuleIndications: by mouth 3 Nausea and vomiting, (three) times intractability of daily. vomiting not specified, unspecified vomiting type midodrine 2.5 mg tablet TAKE 1 TABLET 3 90 tablet 0 05/24/2019 Active TIMES A DAY traMADOL (ULTRAM) 50 mg Take 1 tablet by 12 tablet 0 2019 Active tabletIndications: mouth every 6 Chronic pain of right (six) hours as ankle needed for Pain (scale 7-10). Oral Electrolytes GIVE 166ML EVERY 1 Bottle 3 05/28/2019 Active (PEDIATRIC ELECTROLYTE) 4 HOURS VIA PEG solutionIndications: Nonepileptic episode traZODONE 50 mg Take 1 tablet by 30 tablet 0 05/28/2019 Active tabletIndications: JOAN mouth at (obstructive sleep bedtime. apnea) Catheter 12 Fr Use as directed 60 Each 2 06/06/2019 Active MiscIndications: Urinary retention venlafaxine XR 75 mg 24 Take 1 capsule 30 capsule 0 06/06/2019 Active hr capsuleIndications: by mouth daily Migraine without aura with breakfast. and with status migrainosus, not intractable mirabegron (MYRBETRIQ) Take 1 tablet by 90 tablet 3 06/06/2019 Active 50 mg mouth daily. 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 04/08/2018 Hypogammaglobulinemia 01/05/2018 Lumbosacral spondylosis without myelopathy 08/09/2017 Overview: Added automatically from request for surgery [id number] Tachycardia 02/04/2017 History of DVT (deep vein thrombosis) 02/04/2017 Chronic superficial gastritis without bleeding 02/04/2017 Gastrointestinal tube in situ 02/04/2017 Ankle instability, left 02/07/2015 Morbid obesity 04/23/2014 Tear of lateral cartilage or meniscus of knee, current 02/11/2014 Epilepsy 06/09/2012 documented as of this encounter (statuses as of 06/13/2019) Resolved Problems Problem Noted Date Resolved Date [...] Headache 03/07/2014 06/06/2019 Overview: ICD10 Diagnosis 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 Seizure 02/18/2014 01/24/2018 documented as of this encounter (statuses as of 06/13/2019) Immunizations Name Administration Dates Next Due Influenza [...] of this encounter Last Filed Vital Signs Not on filedocumented in this encounter Plan of Treatment Date Type Specialty Care Team Description 06/15/2019 Appointment Radiology Nik Alfredo MD [address] [place] [address] 06/27/2019 Office Visit Family Medicine Addi Staley MD [address] [facility] [address] [place] [address] 06/29/2019 Office Visit Rheumatology Barbara Gonzales MD [address] [place] [phone] 07/10/2019 Office Visit Pulmonary Disease Angela Laurent [address] Willoughby [address] [place] [phone] 08/16/2019 Office Visit Cardiology Anil Stewart MD [address] [place] [phone] 09/10/2019 Office Visit Gastroenterology Srikanth Hall MD [address] [place] [phone] 09/17/2019 Office Visit Orthopedic Surgery Wu Marcelino MD [address] [place] [address] [phone] Health Maintenance Due Date Last Done Comments URINE MICROALBUMIN 1998 VARICELLA VACCINES (1 of 2 - 13+ 2001 2-dose series) FOOT EXAM 2006 DTaP,Tdap,and [...] of this encounter Implants Implanted Type Area Buckshot Swage Operator Device Shelf Model / Identifier Expiration Serial / Date Lot [place], Arthrex Fastak Auture #[id number] - [id number] ANCHOR Right: Arthrex Inc 08/14/2018 [id number] / Implanted: Qty: 1 on 04/09/2014 by Nki Alfredo MD at [facility] Feet / [id number] [place], Arthrex Fastak Auture #[id number] - [id number] ANCHOR Left: Arthrex Inc 11/13/2018 [id number] / Implanted: Qty: 2 on 03/18/2015 by Nik Alfredo MD at [facility] Foot / [id number] 22fr Alia Gastric-Jejunal Tube Peg [facility] 08/14/2019 ALIA / Implanted: Qty: 1 on 06/08/2018 at [facility] 0250- 22 / [id number] Screw, Small Bone Innovations 6.0mm X50mm Fusifix Triple Thrd #955-4007 - [id number] SCREW Right: Small Bone [id number] / Implanted: Qty: 1 on 04/09/2014 by Nik Alfredo MD at [facility] Feet Innovations / Screw, Small Bone Innovations 6.0mm X60mm Fusifix Triple Thrd #955-4009 - [id number] SCREW Right: Small Bone [id number] / Implanted: Qty: 1 on 04/09/2014 by Nik Alfredo MD at [facility] Feet Innovations / Screw, Small Bone Innovations 6.0mm X40mm Fusifix Triple Thrd #955-4005 - [id number] SCREW Left: Small Bone [id number] / Implanted: Qty: 2 on 03/18/2015 by Nik Alfredo MD at [facility] AT [facility] Innovations / AUTO #1 LOAD #5 [id number] K-Wire, Small Bone Innovations 1.5 X 150mm #960-0000 - [id number] WIRE Small Bone 960-0000 / Implanted: Qty: 2 on 04/09/2014 at [facility] AT [facility] / K-Wire, Small Bone Innovations 1.5 X 150mm #960-0000 - [id number] WIRE Left: Small Bone 960-0000 / Implanted: Qty: 3 on 03/18/2015 at [facility] AT [facility] Innovations / AUTO #1 LOAD #5 [id number] documented as of this encounter Results Not on filedocumented in this encounter Insurance Payer Benefit Plan / Subscriber ID Effective Dates Phone Address Type Group [facility] xxxxxxxxx 2015-Present Medicaid COMM PLAN - PLUS MANAGED MEDICAID documented as of this encounter Advance Directives Type Date Recorded Patient Trick Rodeo Rider Explanation Advance Directives and Living 01/21/2016 9:55 AM Will Power of Obstetrics Technician 01/21/2016 9:55 AM
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
--- OUTSIDE RECORDS SUMMARY | 2019-10-07 11:29 | XMS REPORT | Summary of Care ---
:1990 Author Organization [facility] Address [address] [place] [address] Care Team Providers Name Role Phone Wu Slater Unavailable Unavailable Joe Regalado MD Unavailable Unavailable Arina Escudero Unavailable Unavailable Romero Zamarripa MD Insurance Hmo Romero Zamarripa MD Primary Care Provider Encounter Details Date Type Department Care Team Description 06/15/2019 Patient Secure [facility] GouSrikanth Nausea and vomiting, Msg GASTROENTEROLOGY -Betty Sparks MD intractability of [facility] [address] vomiting not [address] [facility] specified, unspecified [address] [place], vomiting type [facility] [phone] Allergies Active Allergy Reactions Severity Noted Date [...] as of this encounter (statuses as of 06/16/2019) Medications Medication Sig Dispensed Refills Start Date End Date Status ranitidine 300 mg Take one 30 tablet 2 02/21/2017 Active tablet tablet each night before bedtime diclofenac 3 % gel 0 09/28/2017 Active fluticasone-salmeter Inhale 2 Puffs 12 Inhaler 5 07/28/2018 Active ol (ADVAIR HFA) 2 (two) times 230-21 mcg/actuation daily. inhaler olopatadine (PAZEO) Place 1 Drop 2.5 mL 11 08/02/2018 Active 0.7 % Drop in each eye daily. fluticasone (FLONASE Use 2 Sprays 16 g 11 08/02/2018 Active ALLERGY RELIEF) 50 in each mcg/actuation nasal nostril daily. spray XOPENEX HFA 45 Inhale 1-2 15 g 2 08/04/2018 Active mcg/actuation Puffs every 4 inhaler (four) hours as needed for Wheezing. lactose-reduced food Take 80 mL/hr 30 Bottle 1 08/18/2018 Active with fibr (ISOSOURCE through 1.5 [place]) 0.07 feeding tube gram-1.5 kcal/mL daily. Liqd albuterol 2.5 mg /3 Inhale 3 mL 1 Box 6 09/11/2018 Active mL (0.083 %) every 4 (four) nebulizer solution hours as needed for Wheezing or [...] (BETADINE) 10 % area(s) as solutionIndications: needed Wound abscess (wound). Vit Take 1 tablet 90 tablet 3 02/07/2019 Active 68-Ucox-HF-DSS by mouth 90-1-50 mg per daily. tabletIndications: Secondary oligomenorrhea, Patient desires metoprolol succinate Take 0.5 45 tablet 0 02/09/2019 Active XL 25 mg 24 hr tablets by tablet mouth daily. diphenhydrAMINE Take 50 mg by 0 Active (BENADRYL) 25 mg mouth. capsuleIndications: pt stated that she takes it every 8hrs PRN, for allergy PNV Take 1 tablet 30 tablet 11 03/05/2019 Active Comb.Yu94-Anrv,Carb- by mouth FA-DSS 29-1-50 mg daily. TbECIndications: Encounter for preconception consultation baclofen 10 mg Take 1 tablet 90 tablet 0 03/22/2019 Active tabletIndications: by mouth 3 Neck muscle spasm (three) times daily. ONETOUCH VERIO USE 1 STRIP 2 50 Strip 3 04/18/2019 Active stripIndications: (TWO) TIMES Type 2 diabetes DAILY. mellitus without complication, without long-term current use of insulin mupirocin 2 % Apply to 30 g 0 04/20/2019 Active ointment area(s) 3 (three) times daily. nystatin 100,000 Apply to 30 g 1 04/20/2019 Active unit/gram powder area(s) 2 (two) times daily. amitriptyline 50 mg Take 1 tablet 30 tablet 2 05/06/2019 Active tabletIndications: by mouth at Abdominal pain, bedtime. unspecified abdominal location AZELASTINE 137 mcg USE 1 SPRAY IN 1 Bottle 1 05/08/2019 Active (0.1 %) nasal EACH NOSTRIL 2 sprayIndications: (TWO) TIMES Upper respiratory DAILY. infection with cough and congestion butalbital-acetamino Take 1 tablet 20 tablet 0 05/16/2019 Active phen-caff 50-325-40 by mouth every mg 6 (six) hours tabletIndications: as needed (prn Nonintractable for). headache, unspecified chronicity pattern, unspecified headache type dicyclomine 10 mg Take 1 capsule 90 capsule 3 05/22/2019 Active capsuleIndications: by mouth 3 Nausea and vomiting, (three) times intractability of daily. vomiting not specified, unspecified vomiting type midodrine 2.5 mg TAKE 1 TABLET 90 tablet 0 05/24/2019 Active tablet 3 TIMES A DAY traMADOL (ULTRAM) 50 Take 1 tablet 12 tablet 0 2019 Active mg by mouth every tabletIndications: 6 (six) hours Chronic pain of as needed for right ankle Pain (scale 7-10). Oral Electrolytes GIVE 166ML 1 Bottle 3 05/28/2019 Active (PEDIATRIC EVERY 4 HOURS ELECTROLYTE) VIA PEG solutionIndications: Nonepileptic episode traZODONE 50 mg Take 1 tablet 30 tablet 0 05/28/2019 Active tabletIndications: by mouth at JOAN (obstructive bedtime. sleep apnea) Catheter 12 Fr Use as 60 Each 2 06/06/2019 Active MiscIndications: directed Urinary retention venlafaxine XR 75 mg Take 1 capsule 30 capsule 0 06/06/2019 Active 24 hr by mouth daily capsuleIndications: with Migraine without breakfast. aura and with status migrainosus, not intractable mirabegron Take 1 tablet 90 tablet 3 06/06/2019 Active (MYRBETRIQ) 50 mg by mouth tabletIndications: daily. Bladder spasms venlafaxine 37.5 mg Take 1 tablet 30 tablet 0 06/14/2019 Active tabletIndications: by mouth 3 Bipolar 1 disorder (three) times daily. promethazine 6.25 Take 20 mL by 1419 mL 5 06/16/2019 Active mg/5 mL mouth every 6 solutionIndications: (six) hours as Nausea and vomiting, needed for intractability of Nausea and vomiting not Vomiting specified, (N/V). unspecified vomiting type promethazine 6.25 Take 20 mL by 473 mL 11 05/09/2019 Discontinued mg/5 mL mouth every 6 9 solutionIndications: (six) hours as Nausea and vomiting, needed for intractability of Nausea and vomiting not Vomiting specified, (N/V). unspecified vomiting type promethazine 6.25 Take 20 mL by 946 mL 11 06/16/2019 Discontinued mg/5 mL mouth every 6 9 solutionIndications: (six) hours as Nausea and vomiting, needed for intractability of Nausea and vomiting not Vomiting specified, (N/V). 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 04/08/2018 Hypogammaglobulinemia 01/05/2018 Lumbosacral spondylosis without myelopathy 08/09/2017 Overview: Added automatically from request for surgery [id number] Tachycardia 02/04/2017 History of DVT (deep vein thrombosis) 02/04/2017 Chronic superficial gastritis without bleeding 02/04/2017 Gastrointestinal tube in situ 02/04/2017 Ankle instability, left 02/07/2015 Morbid obesity 04/23/2014 Tear of lateral cartilage or meniscus of knee, current 02/11/2014 Epilepsy 06/09/2012 documented as of this encounter (statuses as of 06/16/2019) Resolved Problems Problem Noted Date Resolved Date [...] Headache 03/07/2014 06/06/2019 Overview: ICD10 Diagnosis Term Medicaid Eligibility Specialist Utility Seizure 02/18/2014 01/24/2018 documented as of this encounter (statuses as of 06/16/2019) Immunizations Name Administration Dates Next Due Influenza [...] Treatment Date Type Specialty Care Team Description 06/29/2019 Office Visit Rheumatology Barbara Gonzales MD [address] [place] [address]. [place] [address] 06/29/2019 Office Visit Family Medicine Addi Staley MD [address] [place] [address] [address] [place] [address] 07/10/2019 Office Visit Pulmonary Disease Angela Laurent [address] [place] [address] [phone] 08/16/2019 Office Visit Cardiology Anil Stewart MD [address] [place] [address]. [place] [address] 09/10/2019 Office Visit Gastroenterology Srikanth Hall MD [address] [place], [place] 179075 09/17/2019 Office Visit Orthopedic Surgery Wu Marcelino MD [address] [place] [address] [phone] Health Maintenance Due Date Last Done Comments [...] of this encounter Implants Implanted Type Area [place] Device Shelf Model / Identifier Expiration Serial / Date Lot [place], Arthrex Fastak Auture #[id number] - [id number] ANCHOR Right: Ar[employer]rex Inc 08/14/2018 [id number] / Implanted: Qty: 1 on 04/09/2014 by Nik Alfredo MD at [facility] AT [facility] / [id number] [place], Arthrex Fastak Auture #[id number] - [id number] ANCHOR Left: [employer]rex [employer] 11/13/2018 [id number] / Implanted: Qty: 2 on 03/18/2015 by Nik Alfredo MD at [facility] [place] AT [facility] / [id number] 22fr Alia Gastric-Jejunal Tube Peg [facility] 08/14/2019 ALIA / Implanted: Qty: 1 on 06/08/2018 at [facility] 0250- 22 / [id number] Screw, Small Bone Innovations 6.0mm X50mm Fusifix Triple Thrd #955-4007 - [id number] SCREW Right: Small Bone 955-4007 / Implanted: Qty: 1 on 04/09/2014 by Nik Alfredo MD at [facility] [place] AT [facility] Innovations / Screw, Small Bone Innovations 6.0mm X60mm Fusifix Triple Thrd #955-4009 - [id number] SCREW Right: Small Bone 955-4009 / Implanted: Qty: 1 on 04/09/2014 by Nik Alfredo MD at [facility] [place] AT [facility] Innovations / Screw, Small Bone Innovations 6.0mm X40mm Fusifix Triple Thrd #955-4005 - [id number] SCREW Left: Small Bone 955-4005 / Implanted: Qty: 2 on 03/18/2015 by Nik Alfredo MD at [facility] [place] AT [facility] Innovations / AUTO #1 LOAD #5 [id number] K-Wire, Small Bone Innovations 1.5 X 150mm #960-0000 - [id number] WIRE Small Bone 960-0000 / Implanted: Qty: 2 on 04/09/2014 at [facility] [place] AT [facility] / K-Wire, Small Bone Innovations 1.5 X 150mm #960-0000 - [id number] WIRE Left: Small Bone 960-0000 / Implanted: Qty: 3 on 03/18/2015 at [facility] [place] AT [facility] [employer] 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
--- OUTSIDE RECORDS SUMMARY | 2019-10-07 11:29 | XMS REPORT | Summary of Care ---
:1990 Author Organization [facility] Address [address] [place] [address] Care Team Providers Name Role Phone Sarahidonita Wu Haas Unavailable Unavailable Joe Regalado MD Unavailable Arina Escudero AUD Unavailable Unavailable Romero Zamarripa MD Insurance Hmo Romero Zamarripa MD Primary Care Provider Reason for Visit Reason Comments Rx Concern/Question Encounter Details Date Type Department Care Team Description 06/15/2019 Telephone [facility] Addi Jones MD Rx Concern/Question [address], [address] [place] [address] Allergies Active Allergy Reactions Severity [...] tablet by 90 tablet 3 02/07/2019 Active 76-Itne-WM-DSS 90-1-50 mouth daily. mg per tabletIndications: Secondary oligomenorrhea, Patient desires metoprolol succinate XL Take 0.5 tablets 45 tablet 0 02/09/2019 Active 25 mg 24 hr tablet by mouth daily. diphenhydrAMINE Take 50 mg by 0 Active (BENADRYL) 25 mg mouth. capsuleIndications: pt stated that she takes it every 8hrs PRN, for allergy PNV Take 1 tablet by 30 tablet 11 03/05/2019 Active Comb.Hy71-Ygjk,Carb-FA- mouth daily. 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 Hypogammaglobulinemia 01/05/2018 Lumbosacral spondylosis without myelopathy 08/09/2017 Overview: Added automatically from request for surgery [id number] Tachycardia 02/04/2017 History of DVT (deep vein [...] Headache 03/07/2014 06/06/2019 Overview: ICD10 Diagnosis Term Mandolin Repair Person Utility Seizure 02/18/2014 01/24/2018 documented as of [...] Description 06/15/2019 Appointment Radiology Nik Alfredo MD [address] [place] [address] [id number] 06/29/2019 Office Visit Rheumatology Barbara Gonzales MD [address] [place] [phone] 06/29/2019 Office Visit Family Medicine Addi Staley MD [address] [facility] [address] [place], [place] 687[address] 07/10/2019 [facility] [address] [place] [address] [place] [address] [phone] 08/16/2019 Office Visit Cardiology Anil Stewart MD [address] [place] [phone] 09/10/2019 Office Visit Gastroenterology GoSrikanth carranza MD [address] [place] [address] [phone] 09/17/2019 Office Visit Orthopedic Surgery Wu Marcelino MD [address] [place] [address] [phone] Health Maintenance Due Date Last Done Comments [...] of this encounter Implants Implanted Type Area Analytical Technician Device Shelf Model / Identifier Expiration Serial / Date Lot [place], Arthrex Fastak Auture #Gn-5675-694cm - [id number] ANCHOR Right: Arthrex Inc 08/14/2018 [id number] / Implanted: Qty: 1 on 04/09/2014 by Nik Alfredo MD at [facility] [place] AT [facility] Feet / [id number] [place], Arthrex Fastak Auture #[id number] - [id number] ANCHOR Left: Ar[employer]rex Inc 11/13/2018 [id number] / Implanted: Qty: 2 on 03/18/2015 by Nik Alfredo MD at [facility] AT [facility] Foot / [id number] 22fr Alia Gastric-Jejunal Tube Peg [facility] 08/14/2019 ALIA / Implanted: Qty: 1 on 06/08/2018 at [facility] 0250- 22 / [id number] Screw, Small Bone Innovations 6.0mm X50mm Fusifix Triple Thrd #955-4007 - [id number] SCREW Right: Small Bone 955-4007 / Implanted: Qty: 1 on 04/09/2014 by Nik Alfredo MD at [facility] AT [facility] Feet Innovations / Screw, Small Bone Innovations 6.0mm X60mm Fusifix Triple Thrd #955-4009 - [id number] SCREW Right: Small Bone 955-4009 / Implanted: Qty: 1 on 04/09/2014 by Nik Alfredo MD at [facility] AT [facility] Feet Innovations / Screw, Small Bone Innovations 6.0mm X40mm Fusifix Triple Thrd #955-4005 - [id number] SCREW Left: Small Bone 955-4005 / Implanted: Qty: 2 on 03/18/2015 by Nik Alfredo MD at [facility] AT [facility] Foot Innovations / AUTO #1 LOAD #5 [id number] K-Wire, Small Bone Innovations 1.5 X 150mm #960-0000 - [id number] WIRE Small Bone 960-0000 / Implanted: Qty: 2 on 04/09/2014 at [facility] AT [facility] Innovations / K-Wire, Small Bone Innovations 1.5 X 150mm #960-0000 - [id number] WIRE Left: Small Bone 960-0000 / Implanted: Qty: 3 on 03/18/2015 at [facility] AT [facility] Foot Innovations / AUTO #1 LOAD #5 [id number] documented as of this encounter Results Not on filedocumented in this encounter Insurance Payer Benefit Plan / Subscriber ID Effective Dates Phone Address Type Group [facility] xxxxxxxxx 2015-Present Medicaid COMM PLAN - PLUS MANAGED MEDICAID documented as of this encounter Advance Directives Type Date Recorded Patient Supply Manager Explanation Advance Directives and Living 01/21/2016 9:55 AM Will Power of Facility Maintenance Technician 01/21/2016 9:55 AM
--- OUTSIDE RECORDS SUMMARY | 2019-10-07 11:30 | XMS REPORT | Summary of Care ---
:1990 Author Organization [facility] Address [address] [place] [address] Care Team Providers Name Role Phone Wu Slater Unavailable Unavailable Joe Regalado MD Unavailable Unavailable Arina Escudero Unavailable Unavailable Romero Zamarripa MD Insurance Hmo Romero Zamarripa MD Primary Care Provider Encounter Details Date Type Department Care Team Description 05/11/2019 Patient Secure [facility] [place] [address] [place] [address] [phone] Allergies Active Allergy Reactions Severity Noted Date [...] 1 tablet 90 tablet 3 02/07/2019 Active 82-Rbwc-XY-DSS by mouth 90-1-50 mg per daily. tabletIndications: Secondary oligomenorrhea, Patient desires metoprolol succinate Take 0.5 45 tablet 0 02/09/2019 Active XL 25 mg 24 hr tablets by tablet mouth daily. diphenhydrAMINE Take 50 mg by 0 Active (BENADRYL) 25 mg mouth. capsuleIndications: pt stated that she takes it every 8hrs PRN, for allergy PNV Take 1 tablet 30 tablet 11 03/05/2019 Active Comb.Dc23-Iuxk,Carb- by mouth FA-DSS 29-1-50 mg daily. TbECIndications: [...] respiratory DAILY. infection with cough and congestion Cholecalciferol, Take 2,000 0 Discontinued Vitamin D3, (VITAMIN Units by 9 D3) 2,000 unit mouth. capsule PEDIATRIC GIVE 166ML 3 10/03/2017 Discontinued ELECTROLYTE solution EVERY 4 HOURS 9 VIA PEG midodrine 2.5 mg TAKE 1 TABLET 90 tablet 0 02/09/2019 Discontinued tablet 3 TIMES A DAY 9 METFORMIN 500 mg TAKE 1 TABLET 180 tablet 1 03/12/2019 Discontinued tabletIndications: BY MOUTH TWICE 9 Type 2 diabetes A DAY WITH mellitus without MEALS complication, without long-term current use of insulin pregabalin 100 mg Take 1 capsule 90 capsule 0 03/22/2019 Discontinued capsule by mouth 3 9 (three) times daily. dicyclomine 10 mg Take 1 capsule 60 capsule 0 04/10/2019 Discontinued capsuleIndications: by mouth 4 9 Nausea and vomiting, (four) times intractability of daily. vomiting not specified, unspecified vomiting type omeprazole 40 mg Take 1 capsule 30 capsule 0 04/29/2019 Discontinued capsuleIndications: by mouth 9 Reflux gastritis daily. midodrine 2.5 mg Take 1 tablet 60 tablet 5 05/03/2019 Discontinued tabletIndications: by mouth 2 9 Idiopathic (two) times hypotension daily. zolpidem 5 mg Take 1 tablet 15 tablet 0 05/04/2019 Discontinued tabletIndications: by mouth at 9 Primary insomnia bedtime as needed for Insomnia. 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 [place] [address] [phone] 06/29/2019 Office Visit Family Medicine Addi Staley MD [address] [facility] [address] [place], [place] [address] 07/10/2019 [facility] [address] [phone] 08/16/2019 Office Visit Cardiology Anil Stewart MD [address] [place] [address]. [place] [phone] 09/10/2019 Office Visit Gastroenterology Srikanth Hall MD [address] [place] [address] 09/17/2019 Office Visit Orthopedic Surgery Wu Marcelino MD [address] [place] [address] [phone] Health Maintenance Due Date Last Done Comments URINE MICROALBUMIN 1998 VARICELLA VACCINES (1 of 2 - 13+ 2001 2-dose series) FOOT EXAM 2006 DTaP,Tdap,and Td Vaccines ( - 2007 Tdap) EYE EXAM 09/04/2015 09/04/2014, 08/02/2014, 07/23/2014, Additional history exists LDL-C 01/06/2019 01/06/2018 INFLUENZA VACCINE 07/15/2019 10/20/2018, 11/25/2014 HgA1C 07/19/2019 01/16/2019, 10/24/2018, 04/06/2018, Additional history exists CREATININE (SERUM) 05/08/2020 05/08/2019, 04/29/2019, 04/05/2019, Additional history exists PNEUMOCOCCAL 0-64 YEARS COMBINED Completed 07/28/2018, 10/15/2014 SERIES PAP SMEAR Discontinued 02/07/2019, 11/29/2014 documented as of this encounter Implants Implanted Type Area Wire Stitcher Operator Device Shelf Model / Identifier Expiration Serial / Date Lot [place], Arthrex Fastak Auture #[id number]-4055-272um - [id number] ANCHOR Right: Arthrex Inc 08/14/2018 [id number] / Implanted: Qty: 1 on 04/09/2014 by Nik Alfredo MD at [facility] AT [facility] / [id number] [place], Arthrex Fastak Auture #[id number] - [id number] ANCHOR Left: Ar[employer]rex Inc 11/13/2018 [id number] / Implanted: Qty: 2 on 03/18/2015 by Nik Alfredo MD at [facility] AT [facility] / [id number] 22fr Jadiel Gastric-Jejunal Tube Peg [facility] 08/14/2019 JADIEL / Implanted: Qty: 1 on 06/08/2018 at [facility] 0250- 22 / [id number] Screw, Small Bone Innovations 6.0mm X50mm Fusifix Triple Thrd #955-4007 - [id number] SCREW Right: Small Bone 955-4007 / Implanted: Qty: 1 on 04/09/2014 by Nik Alfredo MD at [facility] [place] [facility] Feet Innovations / Screw, Small Bone Innovations 6.0mm X60mm Fusifix Triple Thrd #955-4009 - [id number] SCREW Right: Small Bone 955-4009 / Implanted: Qty: 1 on 04/09/2014 by Nik Alfredo MD at [facility] AT [facility] [employer]et Innovations / Screw, Small Bone Innovations 6.0mm X40mm Fusifix Triple Thrd #955-4005 - [id number] SCREW Left: Small Bone 955-4005 / Implanted: Qty: 2 on 03/18/2015 by Nik Alfredo MD at [facility] AT [facility] Innovations / AUTO #1 LOAD #5 [id number] K-Wire, Small Bone Innovations 1.5 X 150mm #960-0000 - [id number] WIRE Small Bone 960-0000 / Implanted: Qty: 2 on 04/09/2014 at [facility] AT [facility] / K-Wire, Small Bone Innovations 1.5 X 150mm #960-0000 - [id number] WIRE Left: Small Bone 960-0000 / Implanted: Qty: 3 on 03/18/2015 at [facility] AT [facility] Innov[employer] / AUTO #1 LOAD #5 [id number] documented as of this encounter Results Not on filedocumented in this encounter Insurance Payer Benefit Plan / Subscriber ID Effective Dates Phone Address Type Group [facility] xxxxxxxxx 2015-Present Medicaid COMM PLAN - PLUS MANAGED MEDICAID documented as of this encounter Advance Directives Type Date Recorded Patient Manager Housekeeping Explanation Advance Directives and Living 01/21/2016 9:55 AM Will Power of Structural Layout Worker 01/21/2016 9:55 AM
--- OUTSIDE RECORDS SUMMARY | 2019-10-07 11:31 | XMS REPORT | Summary of Care ---
:1990 Author Organization [facility] - [facility] Address [address] [place] [address] Care Team Providers Name Role Phone Wu Slater Unavailable Unavailable Joe Regalado MD Unavailable Unavailable Arina Escudero Unavailable Unavailable Romero Zamarripa MD Insurance Hmo Romero Zamarripa MD Primary Care Provider Reason for Visit Reason Comments UTI Encounter Details Date Type Department Care Team Description 06/16/2019 Telephone [facility] Urology- Mario Puente MD UTI [address], [address] [place] [address] Floor [phone] [place] [phone] Allergies Active Allergy Reactions Severity Noted Date [...] 1 tablet 90 tablet 3 02/07/2019 Active 52-Iiwo-FH-DSS by mouth 90-1-50 mg per daily. tabletIndications: Secondary oligomenorrhea, Patient desires metoprolol succinate Take 0.5 45 tablet 0 02/09/2019 Active XL 25 mg 24 hr tablets by tablet mouth daily. diphenhydrAMINE Take 50 mg by 0 Active (BENADRYL) 25 mg mouth. capsuleIndications: pt stated that she takes it every 8hrs PRN, for allergy PNV Take 1 tablet 30 tablet 11 03/05/2019 Active Comb.Vy14-Jfnx,Carb- by mouth FA-DSS 29-1-50 mg daily. TbECIndications: [...] not Vomiting specified, (N/V). unspecified vomiting type cephALEXin 500 mg Take 1 capsule 28 capsule 0 06/16/2019 Active capsuleIndications: by mouth 4 Acute cystitis (four) times without hematuria daily. cephALEXin 500 mg Take 1 capsule 28 capsule 0 06/16/2019 Discontinued capsuleIndications: by mouth 4 9 Acute cystitis (four) times without hematuria daily for 7 days. 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 04/08/2018 Hypogammaglobulinemia 01/05/2018 Lumbosacral spondylosis without myelopathy 08/09/2017 Overview: Added automatically from request for surgery [id number] Tachycardia 02/04/2017 History of DVT (deep vein [...] Headache 03/07/2014 06/06/2019 Overview: ICD10 Diagnosis Term Plum Packer Utility Seizure 02/18/2014 01/24/2018 documented as of [...] Care Team Description 06/29/2019 Office Visit Rheumatology Barbraa Gonzales MD [address] [place] [phone] 06/29/2019 Office Visit Family Medicine Addi Staley MD [address] [facility] [address] [place], [place] [phone] 07/10/2019 Office Visit Pulmonary Disease Angela Laurent [address] Willoughby [address] [place] [address] [phone] 08/16/2019 Office Visit Cardiology Anil Stewart MD [address] [place] [phone] 09/10/2019 Office Visit Gastroenterology Gou, Srikanth Sparks MD [address] [place], [place] 168695 09/17/2019 Office Visit Orthopedic Surgery Wu Marcelino MD [address] [place] [address] [phone] Health Maintenance Due Date Last Done Comments [...] of this encounter Implants Implanted Type Area Lead Nurse Device Shelf Model / Identifier Expiration Serial / Date Lot [place], Arthrex Fastak Auture #[id number] - [id number] ANCHOR Right: Arthrex Inc 08/14/2018 [id number] / Implanted: Qty: 1 on 04/09/2014 by Nik Alfredo MD at [facility] Feet / [id number] [place], Arthrex Fastak Auture #[id number] - [id number] ANCHOR Left: Ar[employer]rex Inc 11/13/2018 [id number] / Implanted: Qty: 2 on 03/18/2015 by Nik Alfredo MD at [facility] Foot / [id number] 22fr Alia Gastric-Jejunal Tube Peg [facility] 08/14/2019 ALIA / Implanted: Qty: 1 on 06/08/2018 at [facility] 0250- 22 / [id number] Screw, Small Bone Innovations 6.0mm X50mm Fusifix Triple Thrd #955-4007 - [id number] SCREW Right: Small Bone 955-4007 / Implanted: Qty: 1 on 04/09/2014 by Nik Alfredo MD at [facility] Feet Innovations / Screw, Small Bone Innovations 6.0mm X60mm Fusifix Triple Thrd #955-4009 - [id number] SCREW Right: Small Bone 955-4009 / Implanted: Qty: 1 on 04/09/2014 by Nik Alfredo MD at [facility] SelStor Innovations / Screw, Small Bone Innovations 6.0mm X40mm Fusifix Triple Thrd #955-4005 - [id number] SCREW Left: Small Bone 955-4005 / Implanted: Qty: 2 on 03/18/2015 by Nik Alfredo MD at [facility] Foot Innovations / AUTO #1 LOAD #5 [id number] K-Wire, Small Bone Innovations 1.5 X 150mm #960-0000 - [id number] WIRE Small Bone 960-0000 / Implanted: Qty: 2 on 04/09/2014 at [facility] Innovations / K-Wire, Small Bone Innovations 1.5 X 150mm #960-0000 - [id number] WIRE Left: Small Bone 960-0000 / Implanted: Qty: 3 on 03/18/2015 at [facility] Foot Innovations / AUTO #1 LOAD #5 [id number] documented as of this encounter Results Not on filedocumented in this encounter Visit Diagnoses Diagnosis Acute cystitis without hematuria Acute cystitis documented in this encounter Insurance Payer Benefit Plan / Subscriber ID Effective Dates Phone Address Type Group [facility] xxxxxxxxx 2015-Present Medicaid COMM PLAN - PLUS MANAGED MEDICAID documented as of this encounter Advance Directives Type Date Recorded 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
--- OUTSIDE RECORDS SUMMARY | 2019-10-07 11:31 | XMS REPORT | Summary of Care ---
:1990 Author Organization [facility] Address [address] [place] [address] Care Team Providers Name Role Phone Wu Slater Unavailable Unavailable Joe Regalado MD Unavailable Unavailable Arina Escudero Unavailable Unavailable Romero Zamarripa MD Insurance Hmo Romero Zamarripa MD Primary Care Provider Reason for Visit Reason Comments URINARY TRACT INFECTION Encounter Details Date Type Department Care Team Description 06/16/2019 Case Management [facility] Mario Puente, URINARY TRACT and Clinics MD INFECTION [address] [place] [phone] Allergies Active Allergy Reactions Severity Noted Date [...] as of this encounter (statuses as of 06/18/2019) Medications Medication Sig Dispensed Refills Start Date [...] tablet by 90 tablet 3 02/07/2019 Active 57-Lhdu-RZ-DSS 90-1-50 mouth daily. mg per tabletIndications: Secondary oligomenorrhea, Patient desires metoprolol succinate XL Take 0.5 tablets 45 tablet 0 02/09/2019 Active 25 mg 24 hr tablet by mouth daily. diphenhydrAMINE Take 50 mg by 0 Active (BENADRYL) 25 mg mouth. capsuleIndications: pt stated that she takes it every 8hrs PRN, for allergy PNV Take 1 tablet by 30 tablet 11 03/05/2019 Active Comb.Gm30-Kisy,Carb-FA- mouth daily. DSS 29-1-50 mg TbECIndications: Encounter [...] respiratory infection DAILY. with cough and congestion butalbital-acetaminophe Take 1 tablet by 20 tablet [...] 3 (three) Bipolar 1 disorder times daily. promethazine 6.25 mg/5 Take 20 mL by 1419 mL 5 06/16/2019 Active mL solutionIndications: mouth every 6 Nausea and vomiting, (six) hours as intractability of needed for vomiting not specified, Nausea and unspecified vomiting Vomiting (N/V). 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 04/08/2018 Hypogammaglobulinemia 01/05/2018 Lumbosacral spondylosis without myelopathy 08/09/2017 Overview: Added automatically from request for surgery [id number] Tachycardia 02/04/2017 History of DVT (deep vein thrombosis) 02/04/2017 Chronic superficial gastritis without bleeding 02/04/2017 Gastrointestinal tube in situ 02/04/2017 Ankle instability, left 02/07/2015 Morbid obesity 04/23/2014 Tear of lateral cartilage or meniscus of knee, current 02/11/2014 Epilepsy 06/09/2012 documented as of this encounter (statuses as of 06/18/2019) Resolved Problems Problem Noted Date Resolved Date [...] Headache 03/07/2014 06/06/2019 Overview: ICD10 Diagnosis Term Communication Equipment Mechanic Utility Seizure 02/18/2014 01/24/2018 documented as of this encounter (statuses as of 06/18/2019) Immunizations Name Administration Dates Next Due Influenza [...] 06/29/2019 Office Visit Rheumatology Barbara Gonzales MD [address] [place] [phone] 06/29/2019 Office Visit Family Medicine Addi Staley MD [address] [facility] [address] [place], [place] [address] 07/10/2019 [facility] [address] [place] [address] [place] [phone] 08/16/2019 Office Visit Cardiology Anil Stewart MD [address] [place] [phone] 09/10/2019 Office Visit Gastroenterology Srikanth Hall MD [address] [place] [address] [phone] 09/17/2019 Office Visit Orthopedic Surgery Wu Marcelino MD [facility] [place] [address] [phone] Health Maintenance Due Date Last Done Comments [...] of this encounter Implants Implanted Type Area University Counselor Device Shelf Model / Identifier Expiration Serial / Date Lot [place], Arthrex Fastak Auture #[id number] - [id number] ANCHOR Right: Arthrex Inc 08/14/2018 [id number] / Implanted: Qty: 1 on 04/09/2014 by Nik Alfredo MD at [facility] Feet / [id number] [place], Arthrex Fastak Auture #[id number] - [id number] ANCHOR Left: Arthrex Inc 11/13/2018 [id number] / Implanted: Qty: 2 on 03/18/2015 by Nik Alfredo MD at [facility] Foot / [id number] 22fr Alia Gastric-Jejunal Tube Peg [facility] 08/14/2019 ALIA / Implanted: Qty: 1 on 06/08/2018 at [facility] 0250- 22 / [id number] Screw, Small Bone Innovations 6.0mm X50mm Fusifix Triple Thrd #955-4007 - [id number] SCREW Right: Small Bone 955-4007 / Implanted: Qty: 1 on 04/09/2014 by Nik Alfredo MD at [facility] Feet Innovations / Screw, Small Bone Innovations 6.0mm X60mm Fusifix Triple Thrd #955-4009 - [id number] SCREW Right: Small Bone 955-4009 / Implanted: Qty: 1 on 04/09/2014 by Nik Alfredo MD at [facility] Feet Innovations / Screw, Small Bone Innovations 6.0mm X40mm Fusifix Triple Thrd #955-4005 - [id number] SCREW Left: Small Bone 955-4005 / Implanted: Qty: 2 on 03/18/2015 by Nik Alfredo MD at [facility] Foot Innovations / AUTO #1 LOAD #5 [id number] K-Wire, Small Bone Innovations 1.5 X 150mm #960-0000 - [id number] WIRE Small Bone 960-0000 / Implanted: Qty: 2 on 04/09/2014 at [facility] / K-Wire, Small Bone Innovations 1.5 X 150mm #960-0000 - [id number] WIRE Left: Small Bone 960-0000 / Implanted: Qty: 3 on 03/18/2015 at [facility] Foot Innovations / AUTO #1 LOAD #5 [id number] documented as of this encounter Results Not on filedocumented in this encounter Visit Diagnoses Diagnosis Acute cystitis without hematuria Acute cystitis documented in this encounter Insurance Payer Benefit Plan / Subscriber ID Effective Dates Phone Address Type Group [facility] xxxxxxxxx 2015-Present Medicaid COMM PLAN - PLUS MANAGED MEDICAID documented as of this encounter Advance Directives Type Date Recorded 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
--- OUTSIDE RECORDS SUMMARY | 2019-10-07 11:32 | XMS REPORT | Summary of Care ---
:1990 Author Organization [facility] - [facility] Address [address] [place] [address] Care Team Providers Name Role Phone Wu Slater Unavailable Unavailable Joe Regalado MD Unavailable Unavailable Arina Escudero Unavailable Unavailable Romero Zamarripa MD Insurance Hmo Romero Zamarripa MD Primary Care Provider Reason for Visit Reason Comments Rx Concern/Question Patient wanting a different meciation other than Keflex Encounter Details Date Type Department Care Team Description 06/18/2019 Telephone [facility] Urology- Nilda Phelan Rx Concern/ Question [facility] Liz, SALVAGE DIVER (Patient wanting a [address]ciation [address] other than Keflex) [place] [address] 145163 Allergies Active Allergy Reactions Severity Noted Date [...] tablet by 90 tablet 3 02/07/2019 Active 61-Ykrd-JO-DSS 90-1-50 mouth daily. mg per tabletIndications: Secondary oligomenorrhea, Patient desires metoprolol succinate XL Take 0.5 tablets 45 tablet 0 02/09/2019 Active 25 mg 24 hr tablet by mouth daily. diphenhydrAMINE Take 50 mg by 0 Active (BENADRYL) 25 mg mouth. capsuleIndications: pt stated that she takes it every 8hrs PRN, for allergy PNV Take 1 tablet by 30 tablet 11 03/05/2019 Active Comb.Zw56-Eixp,Carb-FA- mouth daily. DSS 29-1-50 mg TbECIndications: Encounter [...] Nausea and unspecified vomiting Vomiting (N/V). type cephALEXin 500 mg Take 1 capsule 28 capsule 0 06/16/2019 Active capsuleIndications: by mouth 4 Acute cystitis without (four) times hematuria daily. 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 04/08/2018 Hypogammaglobulinemia 01/05/2018 Lumbosacral spondylosis without myelopathy 08/09/2017 Overview: Added automatically from request for surgery [id number] Tachycardia 02/04/2017 History of DVT (deep vein [...] Headache 03/07/2014 06/06/2019 Overview: ICD10 Diagnosis Term Resident Care Assistant Utility Seizure 02/18/2014 01/24/2018 documented as of [...] 06/29/2019 Office Visit Rheumatology Barbara Gonzales MD [address] [place] [phone] 06/29/2019 Office Visit Family Medicine Addi Staley MD [address] [facility] [address] [place], [place] [address] 07/10/2019 [facility] [address] [place]by [address] [place] [address] [phone] 08/16/2019 Office Visit Cardiology Anil Stewart MD [address] [place] [address] [phone] 09/10/2019 Office Visit Gastroenterology Srikanth Hall MD [address] [place] [address] [phone] 09/17/2019 Office Visit Orthopedic Surgery Wu Marcelino MD [address] [place] [address] [phone] Name Type Priority Associated Diagnoses Order Schedule URINE CULTURE LAB Routine Acute cystitis without 1 Occurrences starting hematuria 06/18/2019 until 09/18/2019 Health Maintenance Due Date Last Done Comments [...] of this encounter Implants Implanted Type Area Lighting Designer Device Shelf Model / Identifier Expiration Serial / Date Lot [place], Arthrex Fastak Auture #[id number] - [id number] ANCHOR Right: Arthrex Inc 08/14/2018 [id number] / Implanted: Qty: 1 on 04/09/2014 by Nik Alfredo MD at [facility] / [id number] [place], Arthrex Fastak Auture #[id number]-[id number] - [id number] ANCHOR Left: Arthrex Inc 11/13/2018 [id number] / Implanted: Qty: 2 on 03/18/2015 by Nik Alfredo MD at [facility] Foot / [id number] 22fr Alia Gastric-Jejunal Tube Peg [facility] 08/14/2019 ALIA / Implanted: Qty: 1 on 06/08/2018 at [facility] 0250- 22 / [id number] Screw, Small Bone Innovations 6.0mm X50mm Fusifix Triple Thrd #955-4007 - [id number] SCREW Right: Small Bone 955-4007 / Implanted: Qty: 1 on 04/09/2014 by Nik Alfredo MD at [facility] PLAYD8 Innovations / Screw, Small Bone Innovations 6.0mm X60mm Fusifix Triple Thrd #955-4009 - [id number] SCREW Right: Small Bone 955-4009 / Implanted: Qty: 1 on 04/09/2014 by Nik Alfredo MD at [facility] [employer]D8 Innovations / Screw, Small Bone Innovations 6.0mm X40mm Fusifix Triple Thrd #955-4005 - [id number] SCREW Left: Small Bone 955-4005 / Implanted: Qty: 2 on 03/18/2015 by Nik Alfredo MD at [facility] [employer] Innovations / AUTO #1 LOAD #5 [id number] K-Wire, Small Bone Innovations 1.5 X 150mm #960-0000 - [id number] WIRE Small Bone 960-0000 / Implanted: Qty: 2 on 04/09/2014 at [facility] Innovations / K-Wire, Small Bone Innovations 1.5 X 150mm #960-0000 - [id number] WIRE Left: Small Bone 960-0000 / Implanted: Qty: 3 on 03/18/2015 at [facility] [employer] Innovations / AUTO #1 LOAD #5 [id number] documented as of this encounter Results Not on filedocumented in this encounter Visit Diagnoses Diagnosis Acute cystitis without hematuria - Primary Acute cystitis documented in this encounter Insurance Payer Benefit Plan / Subscriber ID Effective Dates Phone Address Type Group [facility] xxxxxxxxx 2015-Present Medicaid COMM PLAN - PLUS MANAGED MEDICAID documented as of this encounter Advance Directives Type Date Recorded 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
--- OUTSIDE RECORDS SUMMARY | 2019-10-07 11:33 | XMS REPORT | Summary of Care ---
:1990 Author Organization [facility] Address [address] [place] [address] Care Team Providers Name Role Phone Wu Slater Unavailable Unavailable Joe Regalado MD Unavailable Unavailable Arina Escudero Unavailable Unavailable Romero Zamarripa MD Insurance Hmo Romero Zamarripa MD Primary Care Provider Reason for Visit Reason Comments Medication Problem Encounter Details Date Type Department Care Team Description 06/19/2019 Refill [facility] Family Addi Staley MD Medication Problem Medicine[address] Primary Care [address], [address] [place] [address] Allergies Active Allergy Reactions Severity [...] as of this encounter (statuses as of 06/19/2019) Medications Medication Sig Dispensed Refills Start Date [...] tablet by 90 tablet 3 02/07/2019 Active 01-Stku-SZ-DSS 90-1-50 mouth daily. mg per tabletIndications: Secondary oligomenorrhea, Patient desires metoprolol succinate XL Take 0.5 tablets 45 tablet 0 02/09/2019 Active 25 mg 24 hr tablet by mouth daily. diphenhydrAMINE Take 50 mg by 0 Active (BENADRYL) 25 mg mouth. capsuleIndications: pt stated that she takes it every 8hrs PRN, for allergy PNV Take 1 tablet by 30 tablet 11 03/05/2019 Active Comb.Rl45-Vnld,Carb-FA- mouth daily. DSS 29-1-50 mg TbECIndications: Encounter [...] Acute cystitis without (four) times hematuria daily. oxybutynin XL 5 mg 24 Take 1 tablet by 30 tablet 0 06/19/2019 Active hr tabletIndications: mouth daily. 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 04/08/2018 Hypogammaglobulinemia 01/05/2018 Lumbosacral spondylosis without myelopathy 08/09/2017 Overview: Added automatically from request for surgery [id number] Tachycardia 02/04/2017 History of DVT (deep vein thrombosis) 02/04/2017 Chronic superficial gastritis without bleeding 02/04/2017 Gastrointestinal tube in situ 02/04/2017 Ankle instability, left 02/07/2015 Morbid obesity 04/23/2014 Tear of lateral cartilage or meniscus of knee, current 02/11/2014 Epilepsy 06/09/2012 documented as of this encounter (statuses as of 06/19/2019) Resolved Problems Problem Noted Date Resolved Date [...] Headache 03/07/2014 06/06/2019 Overview: ICD10 Diagnosis Term Retail Sales Manager Utility Seizure 02/18/2014 01/24/2018 documented as of this encounter (statuses as of 06/19/2019) Immunizations Name Administration Dates Next Due Influenza [...] 06/29/2019 Office Visit Rheumatology Barbara Gonzales MD [address] [place] [phone] 06/29/2019 Office Visit Family Medicine Addi Staley MD [address] [facility] [address] [place], [place] [address] 07/10/2019 Office Visit Pulmonary Disease Angela Laurent [address] [place] [address] [place] [address]43[address] 08/16/2019 Office Visit Cardiology Anil Stewart MD [address] [place] [phone] 08/27/2019 Office Visit Gastroenterology Gou, Srikanth Sparks MD [address] [place] [address] [phone] 09/17/2019 Office Visit Orthopedic Surgery Wu Marcelino MD [address] [place] [address] [phone] Health Maintenance Due Date Last Done Comments [...] of this encounter Implants Implanted Type Area Director Of Speech Pathology Device Shelf Model / Identifier Expiration Serial / Date Lot [place], Arthrex Fastak Auture #[id number]-[id number] - [id number] ANCHOR Right: Ar[employer]rex Inc 08/14/2018 [id number] / Implanted: Qty: 1 on 04/09/2014 by Nik Alfredo MD at [facility] Feet / [id number] [place], Arthrex Fastak Auture #[id number] - [id number] ANCHOR Left: Ar[employer]rex Inc 11/13/2018 [id number] / Implanted: Qty: 2 on 03/18/2015 by Nik Alfredo MD at [facility] Foot / [id number] 22fr Alia Gastric-Jejunal Tube Peg [facility] 08/14/2019 ALIA / Implanted: Qty: 1 on 06/08/2018 at [facility] 0250- 22 / [id number] Screw, Small Bone Innovations 6.0mm X50mm Fusifix Triple Thrd #955-4007 - [id number] SCREW Right: Small Bone 955-4007 / Implanted: Qty: 1 on 04/09/2014 by Nik Alfredo MD at [facility] AT [facility] Cutefund Innovations / Screw, Small Bone Innovations 6.0mm X60mm Fusifix Triple Thrd #955-4009 - [id number] SCREW Right: Small Bone 955-4009 / Implanted: Qty: 1 on 04/09/2014 by Nik Alfredo MD at [facility] AT [facility] [employer]efund Innovations / Screw, Small Bone Innovations 6.0mm X40mm Fusifix Triple Thrd #955-4005 - [id number] SCREW Left: Small Bone 955-4005 / Implanted: Qty: 2 on 03/18/2015 by Nik Alfredo MD at [facility] AT [facility] Foot Innovations / AUTO #1 LOAD #5 [id number] K-Wire, Small Bone Innovations 1.5 X 150mm #960-0000 - [id number] WIRE Small Bone 960-0000 / Implanted: Qty: 2 on 04/09/2014 at [facility] AT [facility] Innovations / K-Wire, Small Bone Innovations 1.5 X 150mm #960-0000 - [id number] WIRE Left: Small Bone 960-0000 / Implanted: Qty: 3 on 03/18/2015 at [facility] AT [facility] Foot Innovations / AUTO #1 LOAD #5 [id number] documented as of this encounter Results Not on filedocumented in this encounter Visit Diagnoses Diagnosis Incomplete bladder emptying - Primary documented in this encounter Insurance Payer Benefit Plan / Subscriber ID Effective Dates Phone Address Type Group [facility]ILL[facility] xxxxxxxxx 2015-Present Medicaid COMM PLAN - PLUS MANAGED MEDICAID documented as of this encounter Advance Directives Type Date Recorded 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
--- OUTSIDE RECORDS SUMMARY | 2019-10-07 11:33 | XMS REPORT | Summary of Care ---
:1990 Author Organization [facility] Address [address] [place] [address] Care Team Providers Name Role Phone Wu Slater Unavailable Unavailable Joe Regalado MD Unavailable Unavailable Arina Escudero Unavailable Unavailable Romero Zamarripa MD Insurance Hmo Romero Zamarripa MD Primary Care Provider Reason for Visit Reason Comments Rx Concern/Question Encounter Details Date Type Department Care Team Description 06/13/2019 Telephone [facility] Addi Jones MD Rx Concern/Question [address] Primary [address], [address] [place] [address] Allergies Active Allergy Reactions Severity [...] 1 tablet 90 tablet 3 02/07/2019 Active 98-Eklg-PC-DSS by mouth 90-1-50 mg per daily. tabletIndications: Secondary oligomenorrhea, Patient desires metoprolol succinate Take 0.5 45 tablet 0 02/09/2019 Active XL 25 mg 24 hr tablets by tablet mouth daily. diphenhydrAMINE Take 50 mg by 0 Active (BENADRYL) 25 mg mouth. capsuleIndications: pt stated that she takes it every 8hrs PRN, for allergy PNV Take 1 tablet 30 tablet 11 03/05/2019 Active Comb.Kq82-Awpe,Carb- by mouth FA-DSS 29-1-50 mg daily. TbECIndications: [...] daily. 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 [place] [phone] 06/29/2019 Office Visit Family Medicine Addi Staley MD [address] [facility] [address] [place], [place] [address] 07/10/2019 Office Visit Pulmonary Disease Angela Laurent [address] [place] [address] [place] [address] [phone] 08/16/2019 Office Visit Cardiology Anil Stewart MD [address] [place] [phone] 09/10/2019 Office Visit Gastroenterology Srikanth Hall MD [address] [place] [address] 09/17/2019 Office Visit Orthopedic Surgery Wu Marcelino MD [address] [place] [address] [phone] Health Maintenance Due Date Last Done Comments [...] of this encounter Implants Implanted Type Area Child Care Director Device Shelf Model / Identifier Expiration Serial / Date Lot [place], Arthrex Fastak Auture #[id number]-[id number] - [id number] ANCHOR Right: Arthrex Inc 08/14/2018 [id number] / Implanted: Qty: 1 on 04/09/2014 by Nik Alfredo MD at [facility] Feet / [id number] [place], Arthrex Fastak Auture #Wk-1726-008fv - [id number] ANCHOR Left: Arthrex Inc 11/13/2018 [id number] / Implanted: Qty: 2 on 03/18/2015 by Nik Alfredo MD at [facility] Foot / [id number] 22fr Jadiel Gastric-Jejunal Tube Peg [facility] 08/14/2019 [id number] / Implanted: Qty: 1 on 06/08/2018 at [facility] 0250- 22 / [id number] Screw, Small Bone Innovations 6.0mm X50mm Fusifix Triple Thrd #955-4007 - [id number] SCREW Right: Small Bone 955-4007 / Implanted: Qty: 1 on 04/09/2014 by Nik Alfredo MD at [facility] Feet Innovations / Screw, Small Bone Innovations 6.0mm X60mm Fusifix Triple Thrd #955-4009 - [id number] SCREW Right: Small Bone 955-4009 / Implanted: Qty: 1 on 04/09/2014 by Nik Alfredo MD at [facility] AT [facility] Feet Innovations / Screw, Small Bone Innovations 6.0mm X40mm Fusifix Triple Thrd #955-4005 - [id number] SCREW Left: Small Bone 955-4005 / Implanted: Qty: 2 on 03/18/2015 by Nik Alfredo MD at [facility] AT [facility] Innovations / AUTO #1 LOAD #5 [id number] K-Wire, Small Bone Innovations 1.5 X 150mm #960-0000 - [id number] WIRE Small Bone 960-0000 / Implanted: Qty: 2 on 04/09/2014 at [facility] AT [facility] / K-Wire, Small Bone Innovations 1.5 X 150mm #960-0000 - [id number] WIRE Left: Small Bone 960-0000 / Implanted: Qty: 3 on 03/18/2015 at [facility] AT [facility] Innovations / AUTO #1 LOAD #5 [id number] documented as of this encounter Results Not on filedocumented in this encounter Visit Diagnoses Diagnosis Bipolar 1 disorder - Primary Bipolar I disorder, most recent episode (or current) unspecified documented in this encounter Insurance Payer Benefit Plan / Subscriber ID Effective Dates Phone Address Type Group [facility] xxxxxxxxx 2015-Present Medicaid COMM PLAN - PLUS MANAGED MEDICAID documented as of this encounter Advance Directives Type Date Recorded 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
--- OUTSIDE RECORDS SUMMARY | 2019-10-07 11:33 | XMS REPORT | Summary of Care ---
:1990 Author Organization [facility] Address [address] [place] [address] Care Team Providers Name Role Phone Sarahidonita Wu Haas Unavailable Unavailable Joe Regalado MD Unavailable Arina Escudero AUD Unavailable Unavailable Romero Zamarripa MD Insurance Hmo Romero Zamarripa MD Primary Care Provider Reason for Visit Reason Comments Medication Problem Encounter Details Date Type Department Care Team Description 06/21/2019 Refill [facility] Family Addi Staley MD Medication Problem Medicine, [address] Primary [address], [address] [place] [address] Allergies Active Allergy Reactions Severity [...] as of this encounter (statuses as of 06/21/2019) Medications Medication Sig Dispensed Refills Start Date [...] 1 tablet 90 tablet 3 02/07/2019 Active 57-Vykx-EF-DSS by mouth 90-1-50 mg per daily. tabletIndications: Secondary oligomenorrhea, Patient desires metoprolol succinate Take 0.5 45 tablet 0 02/09/2019 Active XL 25 mg 24 hr tablets by tablet mouth daily. diphenhydrAMINE Take 50 mg by 0 Active (BENADRYL) 25 mg mouth. capsuleIndications: pt stated that she takes it every 8hrs PRN, for allergy PNV Take 1 tablet 30 tablet 11 03/05/2019 Active Comb.Yw48-Huab,Carb- by mouth FA-DSS 29-1-50 mg daily. TbECIndications: [...] Acute cystitis (four) times without hematuria daily. oxybutynin chloride Take 1 tablet 30 tablet 0 06/21/2019 Active 5 mg by mouth tabletIndications: daily. Urinary dysfunction oxybutynin XL 5 mg Take 1 tablet 30 tablet 0 06/19/2019 Discontinued 24 hr by mouth 9 tabletIndications: daily. 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 04/08/2018 Hypogammaglobulinemia 01/05/2018 Lumbosacral spondylosis without myelopathy 08/09/2017 Overview: Added automatically from request for surgery [id number] Tachycardia 02/04/2017 History of DVT (deep vein thrombosis) 02/04/2017 Chronic superficial gastritis without bleeding 02/04/2017 Gastrointestinal tube in situ 02/04/2017 Ankle instability, left 02/07/2015 Morbid obesity 04/23/2014 Tear of lateral cartilage or meniscus of knee, current 02/11/2014 Epilepsy 06/09/2012 documented as of this encounter (statuses as of 06/21/2019) Resolved Problems Problem Noted Date Resolved Date [...] Headache 03/07/2014 06/06/2019 Overview: ICD10 Diagnosis 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 [phone] 06/29/2019 Office Visit Family Medicine Addi Staley MD [address] [place] [address] [address] [place], [place] [address] 07/10/2019 Office Visit Pulmonary Disease Angela Laurent [address] [place] [address] [phone] 08/16/2019 Office Visit Cardiology Anil Stewart MD [address] [facility] [place] [address] 08/27/2019 Office Visit Gastroenterology GoSrikanth carranza MD [address] [place], [place] [phone] 09/17/2019 Office Visit Orthopedic Surgery Wu Marcelino MD [address] [place], [place] 414803 Health Maintenance Due Date Last Done Comments [...] of this encounter Implants Implanted Type Area Narcotics And/Or Vice Detective Device Shelf Model / Identifier Expiration Serial / Date Lot [place], Arthrex Fastak Auture #[id number]-[id number] - [id number] ANCHOR Right: Arthrex Inc 08/14/2018 [id number] / Implanted: Qty: 1 on 04/09/2014 by Nik Alfredo MD at [facility] [place] AT [facility] / [id number] [place], Arthrex Fastak Auture #Nr-7704-054bs - [id number] ANCHOR Left: Ar[employer]rex Inc 11/13/2018 [id number] / Implanted: Qty: 2 on 03/18/2015 by Nik Alfredo MD at [facility] [place] AT [facility] / [id number] 22fr Alia Gastric-Jejunal Tube Peg [facility] 08/14/2019 ALIA / Implanted: Qty: 1 on 06/08/2018 at [facility] 0250- 22 / [id number] Screw, Small Bone Innovations 6.0mm X50mm Fusifix Triple Thrd #955-4007 - [id number] SCREW Right: Small Bone 955-4007 / Implanted: Qty: 1 on 04/09/2014 by Nik Alfredo MD at [facility] [place] AT [facility] Innovations / Screw, Small Bone Innovations 6.0mm X60mm Fusifix Triple Thrd #955-4009 - [id number] SCREW Right: Small Bone 955-4009 / Implanted: Qty: 1 on 04/09/2014 by Nik Alfredo MD at [facility] AT [facility] Innovations / Screw, Small Bone Innovations 6.0mm X40mm Fusifix Triple Thrd #955-4005 - [id number] SCREW Left: Small Bone 955-4005 / Implanted: Qty: 2 on 03/18/2015 by Nik Alfredo MD at [facility] [place] AT [facility] Innovations / AUTO #1 LOAD #5 [id number] K-Wire, Small Bone Innovations 1.5 X 150mm #960-0000 - [id number] WIRE Small Bone 960-0000 / Implanted: Qty: 2 on 04/09/2014 at [facility] AT [facility] / K-Wire, Small Bone Innovations 1.5 X 150mm #960-0000 - [id number] WIRE Left: Small Bone 960-0000 / Implanted: Qty: 3 on 03/18/2015 at [facility] Foot Innovations / AUTO #1 LOAD #5 [id number] documented as of this encounter Results Not on filedocumented in this encounter Visit Diagnoses Diagnosis Urinary dysfunction - Primary Other abnormality of urination documented in this encounter Insurance Payer Benefit Plan / Subscriber ID Effective Dates Phone Address Type Group [facility] xxxxxxxxx 2015-Present Medicaid COMM PLAN - PLUS MANAGED MEDICAID documented as of this encounter Advance Directives Type Date Recorded Patient 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
--- OUTSIDE RECORDS SUMMARY | 2019-10-07 11:34 | XMS REPORT | Summary of Care ---
:1990 Author Organization [facility] - [facility] Address [address] [place] [address] Care Team Providers Name Role Phone Sarahidonita Wu Haas Unavailable Unavailable Joe Regalado MD Unavailable Arina Escudero AUD Unavailable Unavailable Romero Zamarripa MD Insurance Hmo Romero Zamarripa MD Primary Care Provider Reason for Visit Reason Comments Forms Title 19 Encounter Details Date Type Department Care Team Description 06/21/2019 Telephone [facility] Urology- Nilda Phelan, Forms ( Title 19) [facility] [address] [place] [address] [place] [address] Allergies Active Allergy Reactions Severity Noted Date [...] tablet by 90 tablet 3 02/07/2019 Active 94-Ujyy-AK-DSS 90-1-50 mouth daily. mg per tabletIndications: Secondary oligomenorrhea, Patient desires metoprolol succinate XL Take 0.5 tablets 45 tablet 0 02/09/2019 Active 25 mg 24 hr tablet by mouth daily. diphenhydrAMINE Take 50 mg by 0 Active (BENADRYL) 25 mg mouth. capsuleIndications: pt stated that she takes it every 8hrs PRN, for allergy PNV Take 1 tablet by 30 tablet 11 03/05/2019 Active Comb.Sp80-Qnju,Carb-FA- mouth daily. DSS 29-1-50 mg TbECIndications: Encounter [...] cystitis without (four) times hematuria daily. oxybutynin chloride 5 Take 1 tablet by 30 tablet 0 06/21/2019 Active mg tabletIndications: mouth daily. 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 04/08/2018 Hypogammaglobulinemia 01/05/2018 Lumbosacral spondylosis without myelopathy 08/09/2017 Overview: Added automatically from request for surgery [id number] Tachycardia 02/04/2017 History of DVT (deep vein [...] Headache 03/07/2014 06/06/2019 Overview: ICD10 Diagnosis Term Reel Winder Utility Seizure 02/18/2014 01/24/2018 documented as of [...] 06/27/2019 Appointment Radiology Nik Alfredo MD [address] [place], [place] [id number] 06/27/2019 Appointment Radiology Asia Gupta MD [address] [facility] [address] [place], [place] [address] 06/29/2019 Office Visit Rheumatology Barbara Gonzales MD [address] [facility] [place] [address] 06/29/2019 Office Visit Family Medicine Addi Staley MD [address] [facility] [address] [place] [address] 07/10/2019 Office Visit Pulmonary Disease Angela Laurent [address] [place] [address] [place] [address] [phone] 08/16/2019 Office Visit Cardiology Anil Stewart MD [address] [place] [address]. [place] [address] 08/27/2019 Office Visit Gastroenterology Srikanth Hall MD [address] [place] [address] [phone] 09/17/2019 Office Visit Orthopedic Surgery Wu Marcelino MD [address] [place], [place] [phone] Health Maintenance Due Date Last Done Comments [...] of this encounter Implants Implanted Type Area Staff Physical Therapist Device Shelf Model / Identifier Expiration Serial / Date Lot [place], Barbra Fastak Auture #[id number] - [id number] ANCHOR Right: [employer] 08/14/2018 [id number] / Implanted: Qty: 1 on 04/09/2014 by Nik Alfredo MD at [facility] AT [facility] / [id number] [place], [employer] Fastak Auture #[id number] - [id number] ANCHOR Left: [employer] 11/13/2018 [id number] / Implanted: Qty: 2 on 03/18/2015 by Nik Alfredo MD at [facility] AT [facility] / [id number] 22fr Alia Gastric-Jejunal Tube Peg [facility] 08/14/2019 ALIA / Implanted: Qty: 1 on 06/08/2018 at [facility] 0250- 22 / [id number] Screw, Small Bone Innovations 6.0mm X50mm F[employer]ix Triple Thrd #955-4007 - [id number] SCREW Right: Small Bone [id number] / Implanted: Qty: 1 on 04/09/2014 by Nik Alfredo MD at [facility] [place] AT [facility] Innovations / Screw, Small Bone Innovations 6.0mm X60mm [employer] Triple Thrd #955-4009 - [id number] SCREW Right: Small Bone 955-4009 / Implanted: Qty: 1 on 04/09/2014 by Nik Alfrdeo MD at [facility] [place] AT [facility] Innovations / Screw, Small Bone Innovations 6.0mm X40mm [employer] Triple Thrd #955-4005 - [id number] SCREW Left: Small Bone [id number] / Implanted: Qty: 2 on 03/18/2015 by Nik Alfredo MD at [facility] [place] AT [facility] [employer] / AUTO #1 LOAD #5 [id number] K-Wire, Small Bone Innovations 1.5 X 150mm #960-0000 - [id number] WIRE Small Bone 960-0000 / Implanted: Qty: 2 on 04/09/2014 at [facility] [place] AT [facility] [employer] / K-Wire, Small Bone Innovations 1.5 X 150mm #960-0000 - [id number] WIRE Left: Small Bone 960-0000 / Implanted: Qty: 3 on 03/18/2015 at [facility] [place] AT [facility] [employer] / AUTO #1 LOAD #5 [id number] documented as of this encounter Results Not on filedocumented in this encounter Insurance Payer Benefit Plan / Subscriber ID Effective Dates Phone Address Type Group [facility] xxxxxxxxx 2015-Present Medicaid COMM PLAN - PLUS MANAGED MEDICAID documented as of this encounter Advance Directives Type Date Recorded 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
--- OUTSIDE RECORDS SUMMARY | 2019-10-07 11:34 | XMS REPORT | Summary of Care ---
:1990 Author Organization [facility] [place] [address] Care Team Providers Name Role Phone Romero Zamarripa Primary Care Provider Unavailable [place] MD Unavailable Reason for Visit Reason Comments Back Pain Neck Pain Migraine Encounter Details Date Type Department Care Team Description 06/25/2019 Office Visit [facility] Karel Loya Back Pain; Neck Pain; Medicine - Neurology MD [facility] [address], [address] [place] [id number] Allergies Active Allergy Reactions Severity Noted Date Comments Adhesive Tape 07/22/2016 Depakote 07/22/2016 Latex 07/22/2016 Opioid Analgesics 07/22/2016 Sulfa Antibiotics 07/22/2016 Tizanidine Hcl 07/22/2016 Zarontin 07/22/2016 documented as of this encounter (statuses as of 06/25/2019) Medications Medication Sig Dispensed Refills Start End Date Status Date Promethazine HCl Take by mouth. 0 Active (PHENERGAN OR) dicyclomine (BENTYL) Take 20 mg by 0 Active 20 MG tablet mouth every 6 hours. metoclopramide Take 5 mg by 0 Active (REGLAN) 5 MG tablet mouth four times daily. Methocarbamol Take by mouth. 0 Active (ROBAXIN-750 OR) Prochlorperazine Take by mouth. 0 Active Maleate (COMPAZINE PO) Sucralfate (CARAFATE Take by mouth. 0 Active OR) famotidine (PEPCID) Take 40 mg by 0 Active 40 MG tablet mouth daily. ALBUTEROL SULFATE OR Take by mouth. 0 Active albuterol Take 1 Ampule by 0 Active (PROVENTIL) (2.5 nebulization mg/3 mL) 0.083% once. nebulizer solution Scopolamine [address] Place onto the 0 Active MG/3DAYS PT72 skin. hyoscyamine (LEVBID) Take 1 Tab by 60 Each 1 Active 0.375 MG CR mouth every 12 6 tabletIndications: hours as needed Nausea for Cramping. ondansetron 4 mg/2 Inject 2 mL into 15 mL 3 Active mL injection the vein 3 times 6 daily as needed for Nausea. Scopolamine [address] 1 Patch 10 Patch 3 Active MG/3DAYS PT72 onto the skin 6 every 72 hours. ondansetron (ZOFRAN Take 1 Tab by 60 Tab 6 Active ODT) 8 mg mouth every 8 6 disintegrating hours as needed tablet for Nausea. hyoscyamine PLACE 1 TAB UNDER 120 Tab 1 Active (LEVSIN/SL) 0.125 MG THE TONGUE EVERY 6 SL 4 HOURS NEEDED tabletIndications: FOR CRAMPING. Nausea Na Sulfate-K [SUPREP] Take as 1 Bottle 0 Active Sulfate-Mg Sulf directed. 7 (SUPREP BOWEL PREP KIT) 17.5-3.13-1.6 GM/180ML SOLN promethazine Take 10 mL by 240 mL 3 Active (PHENERGAN) 6.25 mouth 4 times 8 MG/5ML syrup daily as needed for Nausea. azelastine (ASTELIN) 1 Lagrange by Nasal 0 Active 0.1 % nasal spray route. 8 ciprofloxacin Take 500 mg by 0 Active (CIPRO) 500 MG mouth two times 8 tablet daily. butalbital-acetamino Take 1 Tab by 0 Active phen-caffeine mouth. 8 (FIORICET, ESGIC) 50-325-40 MG per tablet chlorhexidine Apply topically. 0 Active (HIBICLENS) 4 % 8 liquid EPINEPHrine 0.3 INJECT 0.3 ML BY 0 Active MG/0.3ML injection INTRAMUSCULAR 8 ROUTE ONCE NOW FOR 1 DOSE. FIBER OR 80 mL/hr. 0 Active 8 fluticasone 2 Sprays by Nasal 0 Active (FLONASE) 50 MCG/ACT route. 8 nasal spray Fluticasone-Salmeter 2 Puffs by 0 Active ol (ADVAIR HFA) Inhalation route. 8 230-21 MCG/ACT AERO hydrOXYzine (ATARAX) Take 25 mg by 0 Active 25 MG tablet mouth. 8 ipratropium 0.5 mg by 0 Active (ATROVENT) 0.02 % Inhalation route. 8 nebulizer solution ipratropium INHALE 2.5 ML 6 Active (ATROVENT) 0.02 % EVERY 6 (SIX) 8 nebulizer solution HOURS NEEDED FOR WHEEZING OR SHORTNESS OF BREATH. XOPENEX HFA 45 INHALE 1-2 PUFFS 2 Active MCG/ACT AERO inhaler EVERY 4 (FOUR) 8 HOURS NEEDED FOR WHEEZING. metoprolol TAKE 0.5 TABLETS 1 Active (TOPROL-XL) 25 MG XL BY MOUTH DAILY. 8 tablet midodrine TAKE 1 TABLET 3 1 Active (PROAMATINE) 2.5 MG TIMES A DAY 8 tablet MYRBETRIQ 50 MG TB24 Take 1 Tab by 6 Active mouth daily. 8 nystatin two times daily. 2 Active (MYCOSTATIN) 8 ointment PAZEO 0.7 % SOLN PLACE 1 DROP IN 11 Active EACH EYE DAILY. 8 promethazine Take 10 mL by 240 mL 5 Active (PHENERGAN) 6.25 mouth 4 times 8 MG/5ML syrup daily as needed for Nausea. ondansetron (ZOFRAN Take 1 Tab by 30 Tab 5 Active ODT) 8 mg mouth every 8 8 disintegrating hours as needed tablet for Nausea. amitriptyline Take 1 Tab by 30 Tab 2 Active (ELAVIL) 50 MG mouth nightly. 9 tabletIndications: Migraine with aura and without status migrainosus, not intractable baclofen (LIORESAL) Take 1 Tab by 90 Tab 2 Active 10 MG mouth 3 times 9 tabletIndications: daily. Spasm of muscle LYRICA 100 MG TAKE 1 CAPSULE BY 90 Cap 2 Active capsuleIndications: MOUTH EVERY 8 9 Migraine with aura HOURS and without status migrainosus, not intractable, Spasm of muscle, Other chronic pain, Neck pain, Chronic low back pain with left-sided sciatica, unspecified back pain laterality tramadol (ULTRAM) 50 Take 1 Tab by 90 Tab 2 Active MG mouth every 8 9 tabletIndications: hours as needed Other chronic pain, for Pain. Neck pain, Chronic low back pain with left-sided sciatica, unspecified back pain laterality gabapentin Take 250 mg by 0 06/25/20 Discontinued (NEURONTIN) 250 mouth 3 times 19 MG/5ML solution daily. tramadol (ULTRAM) 50 Take 50 mg by 0 06/25/20 Discontinued MG tablet mouth. 8 19 amitriptyline Take 50 mg by 0 06/25/20 Discontinued (ELAVIL) 50 MG mouth. 8 19 tablet baclofen (LIORESAL) Take 10 mg by 2 06/25/20 Discontinued 10 MG tablet mouth 3 times 8 19 daily. LYRICA 100 MG TAKE 1 CAPSULE BY 2 06/25/20 Discontinued capsule MOUTH EVERY 8 8 19 HOURS documented as of this encounter (statuses as of 06/25/2019) Active Problems Problem Noted Date Hematochezia 04/12/2017 Arm DVT (deep venous thromboembolism), chronic 04/12/2017 Nausea and vomiting 04/12/2017 Functional abdominal pain syndrome 09/25/2016 Nausea 07/26/2016 Unintentional weight loss 07/26/[address] 07/26/2016 History of jejunostomy tube placement 07/26/2016 Obesity (BMI 35.0-39.9 without comorbidity) 07/26/2016 documented as of this encounter (statuses as of 06/25/2019) Resolved Problems Problem Noted Date Resolved Date Delayed gastric emptying 07/26/2016 09/25/2016 documented as of this encounter (statuses as of 06/25/2019) Immunizations Name Administration Dates Next Due Tetanus 09/02/2013 documented as of this encounter Social History Tobacco Use Types Packs/Day Years Used Date Never Smoker Smokeless Tobacco: Never Used Alcohol Use Drinks/Week oz/Week Comments No Alcohol Habits Answer Date Recorded How often do you have a drink containing alcohol? Never 09/15/2018 How many drinks containing alcohol do you have on a typical Not asked day when you are drinking? How often do you have six or more drinks on one occasion? Not asked Sex Assigned at Date Recorded Not on file Job Start Date Occupation Industry Not on file Not on file Not on file Travel History Travel Start Travel End No recent travel history available. documented as of this encounter Last Filed Vital Signs Vital Sign Reading Time Taken Comments Blood Pressure 113/78 06/25/2019 2:36 PM CDT Pulse 76 06/25/2019 2:36 PM CDT Temperature - - Respiratory Rate - - Oxygen Saturation - - Inhaled Oxygen Concentration - - Weight 107.5 kg (237 lb) 06/25/2019 2:36 PM CDT Height 154.9 cm (5' 1") 06/25/2019 2:36 PM CDT Body Mass Index 44.78 06/25/2019 2:36 PM CDT documented in this encounter Progress Notes Karel Loya MD - 06/25/2019 3:00 PM CDT Neurology History and Physical Chief Complaint Neck, lower back pain, migraine... History of Present Illness Coco Stewart is a 29 y.o. left-handed self referred for evaluation of the followin) Neck pain. Pt had a fall in September 2007 during which she sustained neck injury. She has sincehad mid to upper neck pain. She got a concussion, traumatic labyrinthitis for a while. She has received multiple facet injections and she has been managed on Tramadol, Lyrica and Baclofen for pain and spasms. Her pain ranks 4/10 but it is very tender. It is aching in quality. 2) LBP. Pt has hx of chronic LBP No radicular radiation now. Previously would radiate to right knee in the past. She has had lumbar Facet injection and RFAs. LBP started in 2014. Additionally she has had trochanteric bursal injections. 3) Migraine. Pt has hx of migraine at least 15 days out of each month. Frequently gets "floaters". She started having migraines since age 14. Pt has had Imitrex w/o help. Axjazmyne helped better. Fioricet prn is sometimes employed. She was on topiramate w/o help. Now she is on amitriptyline 50 mg at bedtime. Past Medical History Past Medical History: Diagnosis Date Acid reflux Anemia Anxiety Asthma Chronic pain syndrome Convulsion, non-epileptic Depression Diabetes Environmental allergies Hearing loss Hypermobility arthralgia Hypogammaglobulinemia Iron deficiency anemia Memory loss JOAN (obstructive sleep apnea) PFO (patent foramen ovale) POTS (postural orthostatic tachycardia syndrome) Surgical History Past Surgical History: Procedure Laterality Date HX ANKLE SURGERY & 2014 HX APPENDECTOMY 2010 HX ENDOSCOPY HX FOOT SURGERY 2007 HX GALLBLADDER SURGERY 2016 HX KNEE SURGERY 2007 Medications Prior to Admission medications Medication Sig Start Date End Date Taking? Authorizing Provider albuterol (PROVENTIL) (2.5 mg/3 mL) 0.083% nebulizer solution Take 1 Ampule by nebulization once.Provider, Historical ALBUTEROL SULFATE OR Take by mouth. Provider, Historical amitriptyline (ELAVIL) 50 MG tablet Take 50 mg by mouth. 08/07/18 Provider, Historical azelastine (ASTELIN) 0.1 % nasal spray 1 Lagrange by Nasal route. 07/28/18 Provider, Historical baclofen (LIORESAL) 10 MG tablet Take 10 mg by mouth 3 times daily. 08/21/18 Provider, Historical aalzpwbqnm-rjradxmxnfqmq-mwfwrtve (FIORICET, ESGIC) 50-325-40 MG per tablet Take 1 Tab by mouth. 07/31/18 Provider, Historical chlorhexidine (HIBICLENS) 4 % liquid Apply topically. 06/09/18 Provider, Historical ciprofloxacin (CIPRO) 500 MG tablet Take 500 mg by mouth two times daily. Provider, Historical dicyclomine (BENTYL) 20 MG tablet Take 20 mg by mouth every 6 hours. Provider , Historical EPINEPHrine 0.3 MG/0.3ML injection INJECT 0.3 ML BY INTRAMUSCULAR ROUTE ONCE NOW FOR 1 DOSE. 07/31/18 Provider, Historical famotidine (PEPCID) 40 MG tablet Take 40 mg by mouth daily. Provider, Historical FIBER OR 80 mL/hr. 08/18/18 Provider, Historical fluticasone (FLONASE) 50 MCG/ACT nasal spray 2 Sprays by Nasal route. 08/02/18 Provider, Historical Fluticasone-Salmeterol (ADVAIR HFA) 230-21 MCG/ACT AERO 2 Puffs by Inhalation route. 07/28/18 Provider, Historical gabapentin (NEURONTIN) 250 MG/5ML solution Take 250 mg by mouth 3 times daily. Provider, Historical hydrOXYzine (ATARAX) 25 MG tablet Take 25 mg by mouth. 08/07/18 Provider, Historical hyoscyamine (LEVBID) 0.375 MG CR tablet Take 1 Tab by mouth every 12 hours as needed for Cramping. Patient not taking: Reported on 04/12/2018 07/22/16 Destiney Acevedo MD hyoscyamine (LEVSIN/SL) 0.[address] 1 TAB UNDER THE TONGUE EVERY 4 HOURS NEEDED FOR CRAMPING. Patient not taking: Reported on 04/12/2018 09/14/16 Destiney Acevedo MD ipratropium (ATROVENT) 0.02 % nebulizer solution 0.5 mg by Inhalation route. Provider, Historical ipratropium (ATROVENT) 0.02 % nebulizer solution INHALE 2.5 ML EVERY 6 (SIX) HOURS NEEDED FOR WHEEZING OR SHORTNESS OF BREATH. 09/11/18 Provider, Historical LYRICA 100 MG capsule TAKE 1 CAPSULE BY MOUTH EVERY 8 HOURS 07/14/18 Provider, Historical Methocarbamol (ROBAXIN-750 OR) Take by mouth. Provider, Historical metoclopramide (REGLAN) 5 MG tablet Take 5 mg by mouth four times daily. Provider, Historical metoprolol (TOPROL-XL) 25 MG XL tablet TAKE 0.5 TABLETS BY MOUTH DAILY. 08/21/18 Provider, Historical midodrine (PROAMATINE) 2.5 MG tablet TAKE 1 TABLET 3 TIMES A DAY 08/21/18 Provider, Historical MYRBETRIQ 50 MG TB24 Take 1 Tab by mouth daily. 09/08/18 Provider, Historical Na Sulfate-K Sulfate-Mg Sulf (SUPREP BOWEL PREP KIT) 17.5-3.13-1.6 GM/180ML SOLN [SUPREP] Take as directed. Patient not taking: Reported on 04/12/2018 03/31/17 Destiney Acevedo MD nystatin (MYCOSTATIN) ointment two times daily. 08/23/18 Provider, Historical ondansetron (ZOFRAN ODT) 8 mg disintegrating tablet Take 1 Tab by mouth every 8 hours as needed for Nausea. 10/02/18 Destiney Acevedo MD ondansetron (ZOFRAN ODT) 8 mg disintegrating tablet Take 1 Tab by mouth every 8 hours as needed for Nausea. 08/30/16 Destiney Acevedo MD ondansetron 4 mg/2 mL injection Inject 2 mL into the vein 3 times daily as needed for Nausea. Patient not taking: Reported on 04/12/2018 08/26/16 Destiney Acevedo MD PAZEO 0.7 % SOLN PLACE 1 DROP IN EACH EYE DAILY. 09/11/18 Provider, Historical Prochlorperazine Maleate (COMPAZINE PO) Take by mouth. Provider, Historical promethazine (PHENERGAN) 6.25 MG/5ML syrup Take 10 mL by mouth 4 times daily as needed for Nausea. 10/02/18 Destiney Acevedo MD promethazine (PHENERGAN) 6.25 MG/5ML syrup Take 10 mL by mouth 4 times daily as needed for Nausea. 09/04/18 Destiney Acevedo MD Promethazine HCl (PHENERGAN OR) Take by mouth. Provider, Historical Scopolamine 1 MG/3DAYS PT72 Place 1 Patch onto the skin every 72 hours. Patient not taking: Reported on 04/12/2018 08/26/16 Destiney Acevedo MD Scopolamine 1 MG/3DAYS PT72 Place onto the skin. Provider, Historical Sucralfate (CARAFATE OR) Take by mouth. Provider, Historical tramadol (ULTRAM) 50 MG tablet Take 50 mg by mouth. 05/07/18 Provider, Historical XOPENEX HFA 45 MCG/ACT AERO inhaler INHALE 1-2 PUFFS EVERY 4 (FOUR) HOURS NEEDED FOR WHEEZING. 09/02/18 Provider, Historical Allergies Allergies Allergen Reactions Adhesive Tape Depakote Latex Morphine And Related [Opioid Analgesics] Sulfa Antibiotics Zanaflex [Tizanidine Hcl] Zarontin Social History Social History Socioeconomic History Marital status: Single Spouse name: Not on file Number of children: Not on file Years of education: Not on file Highest education level: Not on file Occupational History Not on file Social Needs Financial resource strain: Not on file Food insecurity: Worry: Not on file Inability: Not on file Transportation needs: Medical: Not on file Non-medical: Not on file Tobacco Use Smoking status: Never Smoker Smokeless tobacco: Never Used Substance and Sexual Activity Alcohol use: No Frequency: Never Drug use: No Sexual activity: Not Currently Lifestyle Physical activity: Days per week: Not on file Minutes per session: Not on file Stress: Not on file Relationships Social connections: Talks on phone: Not on file Gets together: Not on file Attends tenriism service: Not on file Active member of club or organization: Not on file Attends meetings of clubs or organizations: Not on file Relationship status: Not on file Intimate partner violence: Fear of current or ex partner: Not on file Emotionally abused: Not on file Physically abused: Not on file Forced sexual activity: Not on file Other Topics Concerns: Not on file Social History Narrative Not on file * Family History * Family History Problem Relation Name Age of Onset Other (Other) Other family hx of depression, thyroid dz, asthma, bipolar disorder, hypertension and diabetes Review of Systems 13 systems review is replete with several issues--gastroparesis on tube feedings , hx of right ankle pain chronically. Had talofibular ligament repair right ankle. Hx pseudotumor cerebri in remission,POTS w/o syncope, frequent migraines as mentioned in HPI, hearing loss, hot/cold flashes, memory impairment... Physical Exam Vitals: 06/25/19 1436 BP: 113/78 BP Location: left arm Patient Position: Sitting Cuff Size: large Pulse: 76 Weight: 237 lb (107.5 kg) Height: 5' 1" (1.549 m) General Exam General Appearance: Obese woman of stated age Skin: multiple skin ulcers likely from nervous skin picking Eyes: PERRLA HENT: Normocephalic, atraumatic, no hearing deficit, normal TM, normal oropharynx Neck: Normal ROM, supple, no lymphadenopathy, no bruits, no thyromegaly Cardiovascular: Regular rate and rhythm, no murmurs Respiratory: Clear to auscultation bilaterally Abdomen: Obese. Soft, non-tender, non-distended, normoactive bowel sounds, G- tube noted. Spine & Back: No scoliosis or other deformities, supple, nontender, no lesions. : Deferred. Rectal: Deferred Extremities: No clubbing, cyanosis, or edema. Crepitus L knee. Tender in knee. Mental Status Awake, alert ,oriented x4--that is to person, place, time and situation. Stream of thought fluent and coherent. Thought content is appropriate. Speech is fluent, no dysarthria. Mood and Affect: Congruent, Normal range (euthymic) at this time. Cranial Nerves II: Acuity deferred, visual rodriguez full, fundoscopic exam with crisp disc margins III, IV, : Pupils equal, round, reactive to light, extraocular muscles intact V1-V3: intact to light touch bilaterally VII: face symmetric, 5/5 orbicularis gus, 5/5 orbicularis oculi VIII: intact to finger rub bilaterally IX, X: palate elevates equally and symmetrically XI: SCM 5/5 on left, 5/5 on right. XII: tongue movements symmetric and midline. No tongue atrophy or fasciculations. Motor Tone: Normal Involuntary movements: None Contractures: None Myotonia: None Atrophy: None Fasciculations: None Upper Extremity Muscle Group Right MRC Left MRC Shoulder Abduction 5 5 Elbow Flexion 5 5 Elbow Extension 5 5 Wrist Flexion 5 5 Wrist Extension 5 5 Finger Extension 5 5 Finger Abduction 5 5 Finger Flexion 5 5 Opposition 5 5 Lower Extremity Muscle Group Right MRC Left MRC Hip Flexion 5 5 Hip Extension 5 5 Hip Abduction 5 5 Hip Adduction 5 5 Knee Extension 5 5 Knee Flexion 5 5 Foot dorsiflexion 5 5 Foot plantar flexion 5 5 Foot inversion 5 5 Foot eversion 5 5 Toe extension 5 5 Toe Flexion 5 5 Sensory Pinprick: reduced in legs and feet Temperature: as above Proprioception: intact Reflexes Right DTR Left DTR Biceps 2 2 Triceps 2 2 Brachioradialis 2 2 Hoffmans abs abs Patellar 2 2 Achilles 1 1 Toes In boot, deferred flexor Cerebellar Finger to Nose: No ataxia Heel to [place]: No ataxia Trunk: intact Gait Gait affected by wearing a boot @ RLE Romberg Negative Ancillary Data 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 Recommendations/Plan Continue Tramadol, baclofen and amitriptyline. RTC 1 month. Karel Loya MD documented in this encounter Plan of Treatment Name Type Priority Associated Diagnoses Order Schedule DRUG SCREEN COMPREHENSIVE Lab Routine Other chronic pain Ordered: 06/25/2019 URINE Chronic low back pain with left-sided sciatica, unspecified back pain laterality Therapeutic drug monitoring Health Maintenance Due Date Last Done Comments BMI FOLLOW UP PLAN 2006 HIV SCREENING 2006 CERVICAL CANCER SCREENING 3 YEAR FOLLOW UP 2009 FLU VACCINE > 6 MONTHS 06/14/2019 TETANUS SHOT (ADULT) 09/02/2023 09/02/2013 documented as of this encounter Results Not on filedocumented in this encounter Visit Diagnoses Diagnosis Chronic low back pain without sciatica, unspecified back pain laterality - Primary Migraine with aura and without status migrainosus, not intractable Migraine with aura, without mention of intractable migraine without mention of status migrainosus Spasm of muscle Other chronic pain Neck pain Cervicalgia Chronic low back pain with left-sided sciatica, unspecified back pain laterality Therapeutic drug monitoring Encounter for therapeutic drug monitoring documented in this encounter Insurance Payer Benefit Plan / Subscriber ID Effective Phone Address Type Group Dates [facility] xxxxxxxxx [facility] [address] [address] Medicaid [employer] [address] [place] [id number] documented as of this encounter
--- OUTSIDE RECORDS SUMMARY | 2019-10-07 11:35 | XMS REPORT | Summary of Care ---
:1990 Author Organization [facility] Address [address] [place] [address] Care Team Providers Name Role Phone Sarahidonita Wu Haas Unavailable Unavailable Joe Regalado MD Unavailable Arina Escudero AUD Unavailable Unavailable Romero Zamarripa MD Insurance Hmo Romero Zamarripa MD Primary Care Provider Reason for Visit Reason Comments Refill Request Encounter Details Date Type Department Care Team Description 06/26/2019 Refill [facility], Addi Staley MD Refill Request [address] [facility] [address] [address] [address] [place] [address] [phone] Allergies Active Allergy Reactions Severity Noted Date [...] as of this encounter (statuses as of 06/27/2019) Medications Medication Sig Dispensed Refills Start Date [...] 1 tablet 90 tablet 3 02/07/2019 Active 74-Febd-QU-DSS by mouth 90-1-50 mg per daily. tabletIndications: Secondary oligomenorrhea, Patient desires metoprolol succinate Take 0.5 45 tablet 0 02/09/2019 Active XL 25 mg 24 hr tablets by tablet mouth daily. diphenhydrAMINE Take 50 mg by 0 Active (BENADRYL) 25 mg mouth. capsuleIndications: pt stated that she takes it every 8hrs PRN, for allergy PNV Take 1 tablet 30 tablet 11 03/05/2019 Active Comb.Gw03-Gpms,Carb- by mouth FA-DSS 29-1-50 mg daily. TbECIndications: [...] HOURS ELECTROLYTE) VIA PEG solutionIndications: Nonepileptic episode Catheter 12 Fr Use as 60 Each [...] mg by mouth tabletIndications: daily. Urinary dysfunction TRAZODONE 50 mg TAKE 1 TABLET 30 tablet 0 06/27/2019 Active tabletIndications: BY MOUTH JOAN (obstructive EVERYDAY AT sleep apnea) BEDTIME traZODONE 50 mg Take 1 tablet 30 tablet 0 05/28/2019 Discontinued tabletIndications: by mouth at 9 JOAN (obstructive bedtime. 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 04/08/2018 Hypogammaglobulinemia 01/05/2018 Lumbosacral spondylosis without myelopathy 08/09/2017 Overview: Added automatically from request for surgery [id number] Tachycardia 02/04/2017 History of DVT (deep vein thrombosis) 02/04/2017 Chronic superficial gastritis without bleeding 02/04/2017 Gastrointestinal tube in situ 02/04/2017 Ankle instability, left 02/07/2015 Morbid obesity 04/23/2014 Tear of lateral cartilage or meniscus of knee, current 02/11/2014 Epilepsy 06/09/2012 documented as of this encounter (statuses as of 06/27/2019) Resolved Problems Problem Noted Date Resolved Date [...] Headache 03/07/2014 06/06/2019 Overview: ICD10 Diagnosis Term Balance Weigher Utility Seizure 02/18/2014 01/24/2018 documented as of this encounter (statuses as of 06/27/2019) Immunizations Name Administration Dates Next Due Influenza [...] 06/29/2019 Office Visit Rheumatology Barbara Gonzales MD [address] [place] [address]. [place] [phone] 06/29/2019 Office Visit Family Medicine Addi Staley MD [address] [place] [address] [address] [place], [place] [address] 07/10/2019 Office Visit Pulmonary Disease Angela Laurent [address] [place] [address] [phone] 08/16/2019 Office Visit Cardiology Anil Stewart MD [address] [facility] [place] [address] 08/27/2019 Office Visit Gastroenterology Srikanth Hall MD [address] [place] [address] [phone] 09/17/2019 Office Visit Orthopedic Surgery Wu Marcelino MD [facility] [place], [place] [address] Health Maintenance Due Date Last Done Comments URINE MICROALBUMIN 1998 VARICELLA VACCINES (1 of 2 - + 2001 2-dose series) FOOT EXAM [...] of this encounter Implants Implanted Type Area Forestry Fire Aide Device Shelf Model / Identifier Expiration Serial / Date Lot [place], Arthrex Fastak Auture #[id number] - [id number] ANCHOR Right: Arthrex Inc 08/14/2018 [id number] / Implanted: Qty: 1 on 04/09/2014 by Nik Alfredo MD at [facility] / [id number] [place], Arthrex Fastak Auture #[id number] - [id number] ANCHOR Left: Arthrex Inc 11/13/2018 [id number] / Implanted: Qty: 2 on 03/18/2015 by Nik Alfredo MD at [facility] AT [facility] / [id number] 22fr Alia Gastric-Jejunal Tube Peg [facility] 08/14/2019 ALIA / Implanted: Qty: 1 on 06/08/2018 at [facility] 0250- 22 / [id number] Screw, Small Bone Innovations 6.0mm X50mm Fusifix Triple Thrd #955-4007 - [id number] SCREW Right: Small Bone [id number] / Implanted: Qty: 1 on 04/09/2014 by Nik Alfredo MD at [facility] [place] AT [facility] Feet Innovations / Screw, Small Bone Innovations 6.0mm X60mm Fusifix Triple Thrd #955-4009 - [id number] SCREW Right: Small Bone [id number] / Implanted: Qty: 1 on 04/09/2014 by Nik Alfredo MD at [facility] [place] AT [facility] Feet Innovations / Screw, Small Bone Innovations 6.0mm X40mm Fusifix Triple Thrd #955-4005 - [id number] SCREW Left: Small Bone [id number] / Implanted: Qty: 2 on 03/18/2015 by Nik Alfredo MD at [facility] [place] AT [facility] Foot Innovations / AUTO #1 LOAD #5 [id number] K-Wire, Small Bone Innovations 1.5 X 150mm #960-0000 - [id number] WIRE Small Bone 960-0000 / Implanted: Qty: 2 on 04/09/2014 at [facility] [place] [facility] Brandfolder / K-Wire, Small Bone Innovations 1.5 X 150mm #960-0000 - [id number] WIRE Left: Small Bone 960-0000 / Implanted: Qty: 3 on 03/18/2015 at [facility] [place] [facility] Foot Innovations / AUTO #1 LOAD #5 [id number] documented as of this encounter Results Not on filedocumented in this encounter Visit Diagnoses Diagnosis JOAN (obstructive sleep apnea) Obstructive sleep apnea (adult) (pediatric) documented in this encounter Insurance Payer Benefit Plan / Subscriber ID Effective Dates Phone Address Type Group [facility] xxxxxxxxx 2015-Present Medicaid COMM PLAN - PLUS MANAGED MEDICAID documented as of this encounter Advance Directives Type Date Recorded 

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
--- OUTSIDE RECORDS SUMMARY | 2019-10-07 11:36 | XMS REPORT | Summary of Care ---
:1990 Author Organization [facility] Address [address] [place] [address] Care Team Providers Name Role Phone Wu Slater Unavailable Unavailable Joe Regalado MD Unavailable Arina Escudero AUD Unavailable Unavailable Romero Zamarripa MD Insurance Hmo Romero Zamarripa MD Primary Care Provider Encounter Details Date Type Department Care Team Description 05/18/2019 Letter (Out) [facility] Orthopaedic Wu Marcelino MD Surgery- [address] Primary Care [address] [address] [address] [place] [address] [phone] Allergies Active Allergy Reactions Severity Noted Date [...] tablet by 90 tablet 3 02/07/2019 Active 10-Ktbs-AS-DSS 90-1-50 mouth daily. mg per tabletIndications: Secondary oligomenorrhea, Patient desires metoprolol succinate XL Take 0.5 tablets 45 tablet 0 02/09/2019 Active 25 mg 24 hr tablet by mouth daily. diphenhydrAMINE Take 50 mg by 0 Active (BENADRYL) 25 mg mouth. capsuleIndications: pt stated that she takes it every 8hrs PRN, for allergy PNV Take 1 tablet by 30 tablet 11 03/05/2019 Active Comb.Vu35-Styl,Carb-FA- mouth daily. DSS 29-1-50 mg TbECIndications: Encounter [...] unspecified for). 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 04/08/2018 Hypogammaglobulinemia 01/05/2018 Lumbosacral spondylosis without myelopathy 08/09/2017 Overview: Added automatically from request for surgery [id number] Tachycardia 02/04/2017 History of DVT (deep vein [...] Headache 03/07/2014 06/06/2019 Overview: ICD10 Diagnosis Term Nailhead Setter Utility Seizure 02/18/2014 01/24/2018 documented as of [...] Care Team Description 06/29/2019 Office Visit Rheumatology Talyor Bazan [address] [address] [phone] Barbara Gonzales MD [address] [place] [phone] 06/29/2019 Office Visit Family Medicine Addi Staley MD [address] [facility] [address] [place], [place] [address]781 07/10/2019 Office Visit Pulmonary Disease Angela Laurent [address] [place] [address] [phone] 08/16/2019 Office Visit Cardiology Anil Stewart MD [address] [place] [address]. [place] [phone] 08/27/2019 Office Visit Gastroenterology Srikanth Hall MD [address] [place] [address] [phone] 09/17/2019 Office Visit Orthopedic Surgery Wu Marcelino MD [address] [place], [place] 290803 Health Maintenance Due Date Last Done Comments [...] of this encounter Implants Implanted Type Area Snowboarder Device Shelf Model / Identifier Expiration Serial / Date Lot [place], Arthrex Fastak Auture #[id number] - [id number] ANCHOR Right: Ar[employer]rex Inc 08/14/2018 [id number] / Implanted: Qty: 1 on 04/09/2014 by Nik Alfredo MD at [facility] / [id number] [place], Arthrex Fastak Auture #[id number] - [id number] ANCHOR Left: Ar[employer]rex Inc 11/13/2018 [id number] / Implanted: Qty: 2 on 03/18/2015 by Nik Alfredo MD at [facility] AT [facility] / [id number] 22fr Jadiel Gastric-Jejunal Tube Peg [facility] 08/14/2019 JADIEL / Implanted: Qty: 1 on 06/08/2018 at [facility] 0250- 22 / [id number] Screw, Small Bone Innovations 6.0mm X50mm Fusifix Triple Thrd #955-4007 - [id number] SCREW Right: Small Bone 955-4007 / Implanted: Qty: 1 on 04/09/2014 by Nik Alfredo MD at [facility] [place] AT [facility] [employer] / Screw, Small Bone Innovations 6.0mm X60mm Fusifix Triple Thrd #955-4009 - [id number] SCREW Right: Small Bone 955-4009 / Implanted: Qty: 1 on 04/09/2014 by Nik Alfredo MD at [facility] [place] AT [facility] Innovations / Screw, Small Bone Innovations 6.0mm X40mm Fusifix Triple Thrd #955-4005 - [id number] SCREW Left: Small Bone 955-4005 / Implanted: Qty: 2 on 03/18/2015 by Nik Alfredo MD at [facility] [place] AT [facility] Foot Innovations / AUTO #1 LOAD #5 [id number] K-Wire, Small Bone Innovations 1.5 X 150mm #960-0000 - [id number] WIRE Small Bone 960-0000 / Implanted: Qty: 2 on 04/09/2014 at [facility] [place] [facility] Innovations / K-Wire, Small Bone Innovations 1.5 X 150mm #960-0000 - [id number] WIRE Left: Small Bone 960-0000 / Implanted: Qty: 3 on 03/18/2015 at [facility] [place] AT [facility] Foot Innov[employer] / AUTO #1 LOAD #5 [id number] documented as of this encounter Results Not on filedocumented in this encounter Insurance Payer Benefit Plan / Subscriber ID Effective Dates Phone Address Type Group [facility] xxxxxxxxx 2015-Present Medicaid COMM PLAN - PLUS MANAGED MEDICAID documented as of this encounter Advance Directives Type Date Recorded 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
--- OUTSIDE RECORDS SUMMARY | 2019-10-07 11:37 | XMS REPORT | Summary of Care ---
:1990 Author Organization [facility] Address [address] [place] [address] Care Team Providers Name Role Phone Sarahidonita Wu Haas Unavailable Unavailable Joe Regalado MD Unavailable Arina Escudero AUD Unavailable Unavailable Romero Zamarripa MD Insurance Hmo Romero Zamarripa MD Primary Care Provider Reason for Visit Reason Comments MED PROB Encounter Details Date Type Department Care Team Description 06/29/2019 Telephone [facility] GASTRO[facility]OLOG[facility] GouSrikanth, MED PROB -[facility] [address] [place] [address] [place] [address] Allergies Active Allergy Reactions Severity Noted [...] as of this encounter (statuses as of 06/29/2019) Medications Medication Sig Dispensed Refills Start Date [...] tablet by 90 tablet 3 02/07/2019 Active 52-Bbkn-OY-DSS 90-1-50 mouth daily. mg per tabletIndications: Secondary oligomenorrhea, Patient desires metoprolol succinate XL Take 0.5 tablets 45 tablet 0 02/09/2019 Active 25 mg 24 hr tablet by mouth daily. diphenhydrAMINE Take 50 mg by 0 Active (BENADRYL) 25 mg mouth. capsuleIndications: pt stated that she takes it every 8hrs PRN, for allergy PNV Take 1 tablet by 30 tablet 11 03/05/2019 Active Comb.Mx40-Cqkb,Carb-FA- mouth daily. DSS 29-1-50 mg TbECIndications: Encounter [...] MOUTH EVERYDAY (obstructive sleep AT BEDTIME apnea) amoxicillin-clavulanate Take 1 tablet by 0 04/11/2019 Active 875-125 mg per tablet mouth 2 (two) times daily. methocarbamol 750 mg Take 750 mg by 0 Active tablet mouth. metoprolol tartrate 25 Take 0.5 tablets 0 05/14/2019 Active mg tablet by mouth. mometasone 50 Use 2 Sprays in 0 Active mcg/actuation nasal each nostril. spray omeprazole 40 mg Take 1 capsule 0 05/02/2019 Active capsule by mouth. ondansetron 4 mg/5 mL Take 5 mL by 2 06/14/2019 Active solution mouth. pantoprazole 40 mg EC Take 40 mg by 0 Active tablet mouth. pregabalin (LYRICA) 100 Take 1 capsule 0 06/25/2019 Active mg capsule by mouth. SELECT-OB + DHA 29 mg Take 1 tablet by 11 06/23/2019 Active iron-1 mg -250 mg combo mouth. pack zolpidem 5 mg tablet Take 1 tablet by 0 05/04/2019 Active mouth. 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 04/08/2018 Hypogammaglobulinemia 01/05/2018 Lumbosacral spondylosis without myelopathy 08/09/2017 Overview: Added automatically from request for surgery [id number] Tachycardia 02/04/2017 History of DVT (deep vein thrombosis) 02/04/2017 Gastrointestinal tube in situ 02/04/2017 Iron deficiency anemia due to dietary causes 01/16/2016 Chronic gastritis without bleeding 09/04/2015 Ankle instability, left 02/07/2015 Morbid obesity 04/23/2014 Tear of lateral cartilage or meniscus of knee, current 02/11/2014 Gastroparesis 11/14/2012 Sleep apnea in adult 07/10/2012 Bipolar 1 disorder, depressed 07/07/2012 Epilepsy 06/09/2012 Insomnia 07/07/2006 documented as of this encounter (statuses as of 06/29/2019) Resolved Problems Problem Noted Date Resolved Date [...] Headache 03/07/2014 06/06/2019 Overview: ICD10 Diagnosis Term Hadoop Java 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 [address] [place] [address] [phone] 08/16/2019 Office Visit Cardiology Anil Stewart MD [address] [place] [address]. [place] [phone] 08/27/2019 Office Visit Gastroenterology GoSrikanth carranza MD [address] [place] [address] [phone] 09/17/2019 Office Visit Orthopedic Surgery Wu Marcelino MD [facility] [place], [place] [address]86[address] Health Maintenance Due Date Last Done Comments [...] of this encounter Implants Implanted Type Area Business Reporter Device Shelf Model / Identifier Expiration Serial / Date Lot [place], Arthrex Fastak Auture #[id number] - [id number] ANCHOR Right: Arthrex Inc 08/14/2018 [id number] / Implanted: Qty: 1 on 04/09/2014 by Nik Alfredo MD at [facility] [place] AT [facility] / [id number] [place], Arthrex Fastak Auture #[id number] - [id number] ANCHOR Left: [employer] 11/13/2018 [id number] / Implanted: Qty: 2 on 03/18/2015 by Nik Alfredo MD at [facility] [place] AT [facility] / [id number] 22fr Jadiel Gastric-Jejunal Tube Peg [facility] 08/14/2019 JADIEL / Implanted: Qty: 1 on 06/08/2018 at [facility] 0250- 22 / [id number] Screw, Small Bone Innovations 6.0mm X50mm Fusifix Triple Thrd #955-4007 - [id number] SCREW Right: Small Bone 955-4007 / Implanted: Qty: 1 on 04/09/2014 by Nik Alfredo MD at [facility] AT [facility] Innovations / Screw, Small Bone Innovations 6.0mm X60mm Fusifix Triple Thrd #955-4009 - [id number] SCREW Right: Small Bone 955-4009 / Implanted: Qty: 1 on 04/09/2014 by Nik Alfredo MD at [facility] AT [facility] Feet Innovations / Screw, Small Bone Innovations 6.0mm X40mm Fusifix Triple Thrd #955-4005 - [id number] SCREW Left: Small Bone 955-4005 / Implanted: Qty: 2 on 03/18/2015 by Nik Alfredo MD at [facility] AT [facility] Foot Innov[employer] / AUTO #1 LOAD #5 [id number] K-Wire, Small Bone Innovations 1.5 X 150mm #960-0000 - [id number] WIRE Small Bone 960-0000 / Implanted: Qty: 2 on 04/09/2014 at [facility] AT [facility] / K-Wire, Small Bone Innovations 1.5 X 150mm #960-0000 - [id number] WIRE Left: Small Bone 960-0000 / Implanted: Qty: 3 on 03/18/2015 at [facility] Foot Innov[employer] / AUTO #1 LOAD #5 [id number] documented as of this encounter Results Not on filedocumented in this encounter Insurance Payer Benefit Plan / Subscriber ID Effective Dates Phone Address Type Group [facility] xxxxxxxxx 2015-Present Medicaid COMM PLAN - PLUS MANAGED MEDICAID documented as of this encounter Advance Directives Type Date Recorded 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
--- OUTSIDE RECORDS SUMMARY | 2019-10-07 11:38 | XMS REPORT | Summary of Care ---
:1990 Author Organization [facility] Address [address] [place] [address] Care Team Providers Name Role Phone Sarahidonita Wu Haas Unavailable Unavailable Joe Regalado MD Unavailable Arina Escudero AUD Unavailable Unavailable Romero Zamarripa MD Insurance Hmo Romero Zamarripa MD Primary Care Provider Reason for Visit Reason Comments MED PROB Encounter Details Date Type Department Care Team Description 06/29/2019 Telephone [facility] GASTROENTEROLOG[facility] GouSrikanth, MED PROB -[facility] [address] [place] [address] [place] [address] Allergies Active Allergy Reactions Severity [...] as of this encounter (statuses as of 07/02/2019) Medications Medication Sig Dispensed Refills Start Date [...] tablet by 90 tablet 3 02/07/2019 Active 61-Sbuj-RQ-DSS 90-1-50 mouth daily. mg per tabletIndications: Secondary oligomenorrhea, Patient desires metoprolol succinate XL Take 0.5 tablets 45 tablet 0 02/09/2019 Active 25 mg 24 hr tablet by mouth daily. diphenhydrAMINE Take 50 mg by 0 Active (BENADRYL) 25 mg mouth. capsuleIndications: pt stated that she takes it every 8hrs PRN, for allergy PNV Take 1 tablet by 30 tablet 11 03/05/2019 Active Comb.Hx72-Jlkp,Carb-FA- mouth daily. 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 04/08/2018 Hypogammaglobulinemia 01/05/2018 Lumbosacral spondylosis without myelopathy 08/09/2017 Overview: Added automatically from request for surgery [id number] Tachycardia 02/04/2017 History of DVT (deep vein [...] as of this encounter (statuses as of 07/02/2019) Resolved Problems Problem Noted Date Resolved Date [...] Headache 03/07/2014 06/06/2019 Overview: ICD10 Diagnosis Term Associate Music Professor Utility Seizure 02/18/2014 01/24/2018 documented as of this encounter (statuses as of 07/02/2019) Immunizations Name Administration Dates Next Due Influenza [...] Specialty Care Team Description 07/10/2019 Office Visit Family Medicine Addi Staley MD [address] [facility] [address] [place], [place] [phone] 07/10/2019 [facility] [address] [place] [address] 08/16/2019 Office Visit Cardiology Anil Stewart MD [address] [place] [address]. [place] [address] 08/27/2019 Office Visit Gastroenterology Gou, Srikanth Sparks MD [address] [place] [address] 984755 09/17/2019 Office Visit Orthopedic Surgery Wu Marcelino MD [address] [place], [place] 173373 Health Maintenance Due Date Last Done Comments [...] of this encounter Implants Implanted Type Area Possum Trapper Device Shelf Model / Identifier Expiration Serial / Date Lot [place], Arthrex Fastak Auture #[id number] - [id number] ANCHOR Right: Ar[employer]rex Inc 08/14/2018 [id number] / Implanted: Qty: 1 on 04/09/2014 by Nik Alfredo MD at [facility] [place] AT [facility] / [id number] [place], Arthrex Fastak Auture #Zi-2427-536pw - [id number] ANCHOR Left: [employer]rex Inc 11/13/2018 [id number] / Implanted: Qty: 2 on 03/18/2015 by Nik Alfredo MD at [facility] AT [facility] / [id number] 22fr [place] Gastric-Jejunal Tube Peg [facility] 08/14/2019 ALIA / Implanted: Qty: 1 on 06/08/2018 at [facility] 0250- 22 / [id number] Screw, Small Bone Innovations 6.0mm X50mm Fusifix Triple Thrd #955-4007 - [id number] SCREW Right: Small Bone 955-4007 / Implanted: Qty: 1 on 04/09/2014 by Nik Alfredo MD at [facility] AT [facility] Innovations / Screw, Small Bone Innovations 6.0mm X60mm Fusifix Triple Thrd #955-4009 - [id number] SCREW Right: Small Bone 955-4009 / Implanted: Qty: 1 on 04/09/2014 by Nik Alfredo MD at [facility] AT [facility] Innovations / Screw, Small Bone Innovations 6.0mm X40mm Fusifix Triple Thrd #955-4005 - [id number] SCREW Left: Small Bone 955-4005 / Implanted: Qty: 2 on 03/18/2015 by Nik Alfredo MD at [facility] AT [facility] Innov[employer] / AUTO #1 LOAD #5 [id number] K-Wire, Small Bone Innovations 1.5 X 150mm #960-0000 - [id number] WIRE Small Bone 960-0000 / Implanted: Qty: 2 on 04/09/2014 at [facility] [place] AT [facility] / K-Wire, Small Bone Innovations 1.5 X 150mm #960-0000 - [id number] WIRE Left: Small Bone 960-0000 / Implanted: Qty: 3 on 03/18/2015 at [facility] AT [facility] Foot Innov[employer] / AUTO #1 LOAD #5 [id number] documented as of this encounter Results Not on filedocumented in this encounter Insurance Payer Benefit Plan / Subscriber ID Effective Dates Phone Address Type Group [facility] xxxxxxxxx 2015-Present Medicaid COMM PLAN - PLUS MANAGED MEDICAID documented as of this encounter Advance Directives Type Date Recorded Patient Maintenance Specialist Explanation Advance Directives and Living 01/21/2016 9:55 AM Will Power of Floating Labor Gang Supervisor 01/21/2016 9:55 AM
--- OUTSIDE RECORDS SUMMARY | 2019-10-07 11:39 | XMS REPORT | Summary of Care ---
:1990 Author Organization [facility] - [facility] Address [address] [place] [address] Care Team Providers Name Role Phone Sarahidonita Wu Haas Unavailable Unavailable Joe Regalado MD Unavailable Arina Escudero AUD Unavailable Unavailable Romero Zamarripa MD Insurance Hmo Romero Zamarripa MD Primary Care Provider Reason for Visit Reason Comments Rx Concern/Question PA Encounter Details Date Type Department Care Team Description 06/29/2019 Telephone [facility] Primary oRmero Zamarripa MD Rx Concern/Question ([place] Care- [address] ) [address] [place] [phone] Allergies Active Allergy Reactions Severity Noted [...] as of this encounter (statuses as of 07/03/2019) Medications Medication Sig Dispensed Refills Start Date [...] tablet by 90 tablet 3 02/07/2019 Active 95-Fusz-JJ-DSS 90-1-50 mouth daily. mg per tabletIndications: Secondary oligomenorrhea, Patient desires metoprolol succinate XL Take 0.5 tablets 45 tablet 0 02/09/2019 Active 25 mg 24 hr tablet by mouth daily. diphenhydrAMINE Take 50 mg by 0 Active (BENADRYL) 25 mg mouth. capsuleIndications: pt stated that she takes it every 8hrs PRN, for allergy PNV Take 1 tablet by 30 tablet 11 03/05/2019 Active Comb.Xv05-Rtzj,Carb-FA- mouth daily. 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 04/08/2018 Hypogammaglobulinemia 01/05/2018 Lumbosacral spondylosis without myelopathy 08/09/2017 Overview: Added automatically from request for surgery [id number] Tachycardia 02/04/2017 History of DVT (deep vein [...] as of this encounter (statuses as of 07/03/2019) Resolved Problems Problem Noted Date Resolved Date [...] Headache 03/07/2014 06/06/2019 Overview: ICD10 Diagnosis Term Serials Librarian Utility Seizure 02/18/2014 01/24/2018 documented as of this encounter (statuses as of 07/03/2019) Immunizations Name Administration Dates Next Due Influenza [...] Treatment Date Type Specialty Care Team Description 07/09/2019 Appointment Radiology Asia Gupta MD [address] [facility] MA[address] [place], [place] [phone] 07/09/2019 Appointment Radiology Nik Alfredo MD 301 [place] [address] 07/10/2019 Office Visit Family Medicine Addi Staley MD [address] [facility] [address] [place] [address] 07/10/2019 Office Visit Pulmonary Disease [address] [phone] 08/16/2019 Office Visit Cardiology Anil Stewart MD [address] [place] [phone] 08/23/2019 Office Visit Rheumatology Neville Pritchett MD [address] [place] [phone] 08/27/2019 Office Visit Gastroenterology Srikanth Hall MD [address] [place] [phone] 09/17/2019 Office Visit Orthopedic Surgery Wu Marcelino MD [address] [place], [place] 914[address] Health Maintenance Due Date Last Done Comments [...] of this encounter Implants Implanted Type Area Hasher Operator Device Shelf Model / Identifier Expiration Serial / Date Lot [place], Arthrex Fastak Auture #[id number] - [id number] ANCHOR Right: Arthrex Inc 08/14/2018 [id number] / Implanted: Qty: 1 on 04/09/2014 by Nik Alfredo MD at [facility] AT [facility] / [id number] [place], Arthrex Fastak Auture #[id number] - [id number] ANCHOR Left: Arthrex Inc 11/13/2018 [id number] / Implanted: Qty: 2 on 03/18/2015 by Nik Alfredo MD at [facility] AT [facility] / [id number] 22fr Alia Gastric-Jejunal Tube Peg [facility] 08/14/2019 ALIA / Implanted: Qty: 1 on 06/08/2018 at [facility] 0250- 22 / [id number] Screw, Small Bone Innovations 6.0mm X50mm Fusifix Triple Thrd #955-4007 - [id number] SCREW Right: Small Bone 955-4007 / Implanted: Qty: 1 on 04/09/2014 by Nik Alfredo MD at [facility] [place] AT [facility] Feet Innovations / Screw, Small Bone Innovations 6.0mm X60mm Fusifix Triple Thrd #955-4009 - [id number] SCREW Right: Small Bone 955-4009 / Implanted: Qty: 1 on 04/09/2014 by Nik Alfredo MD at [facility] AT [facility] Feet Innovations / Screw, Small Bone Innovations 6.0mm X40mm Fusifix Triple Thrd #955-4005 - [id number] SCREW Left: Small Bone 955-4005 / Implanted: Qty: 2 on 03/18/2015 by Nik Alfredo MD at [facility] AT [facility] Innovations / AUTO #1 LOAD #5 [id number] K-Wire, Small Bone Innovations 1.5 X 150mm #960-0000 - [id number] WIRE Small Bone 960-0000 / Implanted: Qty: 2 on 04/09/2014 at [facility] AT [facility] / K-Wire, Small Bone Innovations 1.5 X 150mm #960-0000 - [id number] WIRE Left: Small Bone 960-0000 / Implanted: Qty: 3 on 03/18/2015 at [facility] AT [facility] Foot Innovations / AUTO #1 LOAD #5 [id number] documented as of this encounter Results Not on filedocumented in this encounter Insurance Payer Benefit Plan / Subscriber ID Effective Dates Phone Address Type Group [facility] xxxxxxxxx 2015-Present Medicaid COMM PLAN - PLUS MANAGED MEDICAID documented as of this encounter Advance Directives Type Date Recorded Patient Medical Record Clerk Explanation Advance Directives and Living 01/21/2016 9:55 AM Will Power of Sewing Machine Operator Floorperson 01/21/2016 9:55 AM
--- OUTSIDE RECORDS SUMMARY | 2019-10-07 11:39 | XMS REPORT | Summary of Care ---
:1990 Author Organization [facility] - [facility] Address [address] [place] [address] Care Team Providers Name Role Phone Wu Slater Unavailable Unavailable Joe Regalado MD Unavailable Arina Escudero AUD Unavailable Unavailable Romero Zamarripa MD Insurance Hmo Romero Zamarripa MD Primary Care Provider Reason for Visit Reason Comments Rx Concern/Question Encounter Details Date Type Department Care Team Description 07/02/2019 Telephone [facility] Srikanth Hall Rx Concern/ Question -[facility] MD [place] [address] [place] [phone] Allergies Active Allergy Reactions Severity Noted Date [...] 1 tablet 90 tablet 3 02/07/2019 Active 16-Bbqa-SG-DSS by mouth 90-1-50 mg per daily. tabletIndications: Secondary oligomenorrhea, Patient desires metoprolol succinate Take 0.5 45 tablet 0 02/09/2019 Active XL 25 mg 24 hr tablets by tablet mouth daily. diphenhydrAMINE Take 50 mg by 0 Active (BENADRYL) 25 mg mouth. capsuleIndications: pt stated that she takes it every 8hrs PRN, for allergy PNV Take 1 tablet 30 tablet 11 03/05/2019 Active Comb.Bm27-Cdrj,Carb- by mouth FA-DSS 29-1-50 mg daily. TbECIndications: [...] 3 Bipolar 1 disorder (three) times daily. cephALEXin 500 mg Take 1 capsule 28 capsule 0 06/16/2019 Active capsuleIndications: by mouth 4 Acute cystitis (four) times without hematuria daily. oxybutynin chloride Take 1 tablet 30 tablet 0 06/21/2019 Active 5 mg by mouth tabletIndications: daily. Urinary dysfunction TRAZODONE 50 mg TAKE 1 TABLET 30 tablet 0 06/27/2019 Active tabletIndications: BY MOUTH JOAN (obstructive EVERYDAY AT sleep apnea) BEDTIME amoxicillin-clavulan Take 1 tablet 0 04/11/2019 Active ate 875-125 mg per by mouth 2 tablet (two) times daily. methocarbamol 750 mg Take 750 mg by 0 Active tablet mouth. metoprolol tartrate Take 0.5 0 05/14/2019 Active 25 mg tablet tablets by mouth. mometasone 50 Use 2 Sprays 0 Active mcg/actuation nasal in each spray nostril. omeprazole 40 mg Take 1 capsule 0 05/02/2019 Active capsule by mouth. ondansetron 4 mg/5 Take 5 mL by 2 06/14/2019 Active mL solution mouth. pantoprazole 40 mg Take 40 mg by 0 Active EC tablet mouth. pregabalin (LYRICA) Take 1 capsule 0 06/25/2019 Active 100 mg capsule by mouth. SELECT-OB + DHA 29 Take 1 tablet 11 06/23/2019 Active mg iron-1 mg -250 mg by mouth. combo pack zolpidem 5 mg tablet Take 1 tablet 0 05/04/2019 Active by mouth. promethazine 6.25 Take 20 mL by 2838 mL 2 07/03/2019 Active mg/5 mL mouth every 6 solutionIndications: (six) hours as Nausea and vomiting, needed for intractability of Nausea and vomiting not Vomiting specified, (N/V). 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 Utility Seizure 02/18/2014 01/24/2018 documented as of [...] 07/09/2019 Appointment Radiology Asia Gupta MD 301 [facility] FR1236 [place], [place] [phone] 07/09/2019 Appointment Radiology Nik Alfredo MD 301 [place] [address] 07/10/2019 Office Visit Family Medicine Addi Staley MD [address] [facility] [address] [place], [place] [phone] 07/10/2019 Office Visit Pulmonary Disease [address] [place] [address] [place] [phone] 08/16/2019 Office Visit Cardiology Anil Stewart MD [address] [place] [phone] 08/23/2019 Office Visit Rheumatology Neville Pritchett MD [address] [place] [phone] 08/27/2019 Office Visit Gastroenterology GoSrikanth carranza MD [address] [place] [phone] 09/17/2019 Office Visit Orthopedic Surgery Wu Marcelino MD [address] [place] [address] [phone] Health Maintenance Due Date Last Done Comments [...] of this encounter Implants Implanted Type Area Hydrometallurgical Engineer Device Shelf Model / Identifier Expiration Serial / Date Lot [place], Arthrex Fastak Auture #[id number] - [id number] ANCHOR Right: Arthrex Inc 08/14/2018 [id number] / Implanted: Qty: 1 on 04/09/2014 by Nik Alfredo MD at [facility] Feet / [id number] [place], Arthrex Fastak Auture #[id number] - [id number] ANCHOR Left: Arthrex Inc 11/13/2018 [id number] / Implanted: Qty: 2 on 03/18/2015 by Nik Alfredo MD at [facility] [place] AT [facility] Foot / [id number] 22fr Alia Gastric-Jejunal Tube Peg [facility] 08/14/2019 ALIA / Implanted: Qty: 1 on 06/08/2018 at [facility] 0250- 22 / [id number] Screw, Small Bone Innovations 6.0mm X50mm Fusifix Triple Thrd #955-4007 - [id number] SCREW Right: Small Bone 955-4007 / Implanted: Qty: 1 on 04/09/2014 by Nik Alfredo MD at [facility] AT [facility] THE FASHION Innovations / Screw, Small Bone Innovations 6.0mm X60mm Fusifix Triple Thrd #955-4009 - [id number] SCREW Right: Small Bone 955-4009 / Implanted: Qty: 1 on 04/09/2014 by Nik Alfredo MD at [facility] AT [facility] Feet Innovations / Screw, Small Bone Innovations 6.0mm X40mm Fusifix Triple Thrd #955-4005 - [id number] SCREW Left: Small Bone 955-4005 / Implanted: Qty: 2 on 03/18/2015 by Nik Alfredo MD at [facility] AT [facility] Foot Innovations / AUTO #1 LOAD #5 [id number] K-Wire, Small Bone Innovations 1.5 X 150mm #960-0000 - [id number] WIRE Small Bone 960-0000 / Implanted: Qty: 2 on 04/09/2014 at [facility] AT [facility] [employer] / K-Wire, Small Bone Innovations 1.5 X 150mm #960-0000 - [id number] WIRE Left: Small Bone 960-0000 / Implanted: Qty: 3 on 03/18/2015 at [facility] AT [facility] Foot Innovations / AUTO #1 LOAD #5 [id number] documented as of this encounter Results Not on filedocumented in this encounter Visit Diagnoses Diagnosis Nausea and vomiting, intractability of vomiting not specified, unspecified vomiting type documented in this encounter Insurance Payer Benefit Plan / Subscriber ID Effective Dates Phone Address Type Group [facility] xxxxxxxxx 2015-Present Medicaid COMM PLAN - PLUS MANAGED MEDICAID documented as of this encounter Advance Directives Type Date Recorded Patient Infrastructure Tech Explanation Advance Directives and Living 01/21/2016 9:55 AM Will Power of Cattle Manager 01/21/2016 9:55 AM
--- OUTSIDE RECORDS SUMMARY | 2019-10-07 11:40 | XMS REPORT | Summary of Care ---
:1988 Author Organization [facility] - [address] [address] Care Team Providers Name Role Phone Sarahidonita Wu Haas Unavailable Unavailable Joe Regalado MD Unavailable Arina Escudero AUD Unavailable Unavailable Romero Zamarripa MD Insurance Hmo Romero Zamarripa MD Primary Care Provider Reason for Visit Reason Comments ED F/U Encounter Details Date Type Department Care Team Description 07/05/2019 Patient Outreach [facility] Zabrina Alejandra [facility]SOLE [facility]ER F/U [address] [address] Allergies Active Allergy Reactions Severity Noted Date [...] as of this encounter (statuses as of 07/05/2019) Medications Medication Sig Dispensed Refills Start Date End Date Status ranitidine 300 mg Take one tablet 30 tablet 2 02/21/2017 Active tablet each night before bedtime diclofenac 3 % gel 0 09/28/2017 Active fluticasone-salmeterol Inhale 2 Puffs 2 12 Inhaler 5 07/28/2018 Active (ADVAIR HFA) 230-21 (two) times mcg/actuation inhaler daily. olopatadine (PAZEO) Place 1 Drop in 2.5 [...] tablet by 90 tablet 3 02/07/2019 Active 23-Kcbl-QZ-DSS 90-1-50 mouth daily. mg per tabletIndications: Secondary oligomenorrhea, Patient desires metoprolol succinate Take 0.5 tablets 45 tablet 0 02/09/2019 Active XL 25 mg 24 hr tablet by mouth daily. diphenhydrAMINE Take 50 mg by 0 Active (BENADRYL) 25 mg mouth. capsuleIndications: pt stated that she takes it every 8hrs PRN, for allergy PNV Take 1 tablet by 30 tablet 11 03/05/2019 Active Comb.Ih11-Zdpx,Carb-FA mouth daily. -DSS 29-1-50 mg TbECIndications: Encounter for preconception consultation [...] respiratory DAILY. infection with cough and congestion butalbital-acetaminoph Take 1 tablet by 20 tablet 0 05/16/2019 Active en-caff 50-325-40 mg mouth every 6 tabletIndications: (six) [...] EVERY 1 Bottle 3 05/28/2019 Active (PEDIATRIC 4 HOURS VIA PEG ELECTROLYTE) solutionIndications: Nonepileptic episode Catheter 12 Fr Use as directed 60 Each 2 06/06/2019 Active MiscIndications: Urinary retention venlafaxine XR 75 mg Take 1 capsule 30 capsule 0 06/06/2019 Active 24 hr by mouth daily capsuleIndications: with breakfast. Migraine without aura and with status migrainosus, not intractable mirabegron (MYRBETRIQ) Take 1 tablet by 90 tablet 3 06/06/2019 Active 50 mg mouth daily. tabletIndications: Bladder spasms venlafaxine 37.5 mg Take 1 tablet by 30 tablet 0 06/14/2019 Active tabletIndications: mouth 3 (three) Bipolar 1 disorder times daily. oxybutynin chloride 5 Take 1 tablet by 30 tablet 0 06/21/2019 Active mg tabletIndications: mouth daily. Urinary dysfunction TRAZODONE 50 mg TAKE 1 TABLET BY 30 tablet 0 06/27/2019 Active tabletIndications: JOAN MOUTH EVERYDAY (obstructive sleep AT BEDTIME apnea) amoxicillin-clavulanat Take 1 tablet by 0 04/11/2019 Active e 875-125 mg per mouth 2 (two) tablet times daily. methocarbamol 750 mg Take 750 [...] by 0 Active tablet mouth. pregabalin (LYRICA) Take 1 capsule 0 06/25/2019 Active 100 mg capsule by mouth. SELECT-OB + DHA 29 mg Take 1 tablet by 11 06/23/2019 Active iron-1 mg -250 mg mouth. combo pack zolpidem 5 mg tablet Take 1 tablet by 0 05/04/2019 Active mouth. promethazine 6.25 mg/5 Take 20 mL by 2838 mL 2 07/03/2019 Active mL mouth every 6 solutionIndications: (six) hours as Nausea and vomiting, needed for intractability of Nausea and vomiting not Vomiting (N/V). specified, unspecified vomiting type cephALEXin (KEFLEX) Take 1 capsule 14 capsule 0 07/04/2019 07/11/2019 Active 500 mg by mouth 2 (two) capsuleIndications: times daily for Acute cystitis without 7 days. 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 Hypogammaglobulinemia 01/05/2018 Lumbosacral spondylosis without myelopathy 08/09/2017 Overview: Added automatically from request for surgery [id number] Tachycardia 02/04/2017 History of DVT (deep vein [...] as of this encounter (statuses as of 07/05/2019) Resolved Problems Problem Noted Date Resolved Date [...] Headache 03/07/2014 06/06/2019 Overview: ICD10 Diagnosis Term Technology Training Associate Utility Seizure 02/18/2014 01/24/2018 documented as of this encounter (statuses as of 07/05/2019) Immunizations Name Administration Dates Next Due Influenza [...] Signs Not on filedocumented in this encounter Progress Notes Zabrina Alejandra RN - 07/05/2019 5:22 PM JEFFERSONTZabrina Alejandra RN, dispensary clerk, called Coco Stewart is a 29 year old female following ED discharge on 07/04/2019; patient has had 4 ED visits in 90 days. Are you having any symptoms? No, patient feels better. Do you have all of your medications? Yes Have you scheduled a follow up appointment with your physician? No Do you need assistance with scheduling a follow up appointment? No, thank you. Do you have transportation to your appointment? Yes, self. Do you have any questions or concerns? Not at this time. Zabrina EAST, RN, CCRN Senior Accountant- PATRIZIA documented in this encounter Plan of Treatment Date Type Specialty Care Team Description 07/09/2019 Appointment Radiology Asia Gupta MD [address] [place] [address] [id number] [place], [place] [phone] 07/09/2019 Appointment Radiology Nik Alfredo MD [address] [place] [address] [phone] 07/10/2019 Office Visit Family Medicine Addi Staley MD [address] [facility] [address] [place], [place] [phone] 08/16/2019 Office Visit Cardiology Anil Stewart MD [address] [place] [phone] 08/23/2019 Office Visit Rheumatology Neville Pritchett MD [address] [place] [phone] 08/27/2019 Office Visit Gastroenterology Srikanth Hall MD [address] [place] [address] [phone] 09/11/2019 Office Visit Pulmonary Disease Eli Miller MD [address] [place] [phone] 09/17/2019 Office Visit Orthopedic Surgery Wu Marcelino MD [address] [place], [place] 369003 Health Maintenance Due Date Last Done Comments URINE MICROALBUMIN 1998 VARICELLA VACCINES (1 of 2 - 13+ 2001 2-dose series) FOOT EXAM 2006 DTaP,Tdap,and Td Vaccines (1 - 2007 Tdap) EYE EXAM 09/04/2015 09/04/2014, 08/02/2014, 07/23/2014, Additional history exists LDL-C 01/06/2019 01/06/2018 INFLUENZA VACCINE (#1) 2019 10/20/2018, 11/25/2014 HgA1C 07/19/2019 01/16/2019, 10/24/2018, 04/06/2018, Additional history exists CREATININE (SERUM) 07/04/2020 07/04/2019, 05/08/2019, 04/29/2019, Additional history exists PNEUMOCOCCAL 0-64 YEARS COMBINED Completed 07/28/2018, 10/15/2014 SERIES PAP SMEAR Discontinued 02/07/2019, 11/29/2014 documented as of this encounter Implants Implanted Type Area Salesperson Burial Plots Device Shelf Model / Identifier Expiration Serial / Date Lot [place], Arthrex Fastak Auture #[id number]-[id number] - [id number] ANCHOR Right: Arthrex Inc 08/14/2018 [id number] / Implanted: Qty: 1 on 04/09/2014 by Nik Alfredo MD at [facility] / [id number] [place], Arthrex Fastak Auture #Yr-[id number] - [id number] ANCHOR Left: Arthrex Inc 11/13/2018 [id number] / Implanted: Qty: 2 on 03/18/2015 by Nik Alfredo MD at [facility] AT [facility] Foot / [id number] 22fr Alia Gastric-Jejunal Tube Peg [facility] 08/14/2019 ALIA / Implanted: Qty: 1 on 06/08/2018 at [facility] 0250- 22 / [id number] Screw, Small Bone Innovations 6.0mm X50mm Fusifix Triple Thrd #955-4007 - [id number] SCREW Right: Small Bone 955-4007 / Implanted: Qty: 1 on 04/09/2014 by Nik Alfredo MD at [facility] [place] AT [facility] Feet Innovations / Screw, Small Bone Innovations 6.0mm X60mm Fusifix Triple Thrd #955-4009 - [id number] SCREW Right: Small Bone 955-4009 / Implanted: Qty: 1 on 04/09/2014 by Nik Alfredo MD at [facility] [place] AT [facility] Feet Innovations / Screw, Small Bone Innovations 6.0mm X40mm Fusifix Triple Thrd #955-4005 - [id number] SCREW Left: Small Bone 955-4005 / Implanted: Qty: 2 on 03/18/2015 by Nik Alfredo MD at [facility] [place] AT [facility] Foot Innovations / AUTO #1 LOAD #5 [id number] K-Wire, Small Bone Innovations 1.5 X 150mm #960-0000 - [id number] WIRE Small Bone 960-0000 / Implanted: Qty: 2 on 04/09/2014 at [facility] [place] AT [facility] Innovations / K-Wire, Small Bone Innovations 1.5 X 150mm #960-0000 - [id number] WIRE Left: Small Bone 960-0000 / Implanted: Qty: 3 on 03/18/2015 at [facility] [place] [facility] Foot Innovations / AUTO #1 LOAD #5 [id number] documented as of this encounter Results Not on filedocumented in this encounter Insurance Payer Benefit Plan / Subscriber ID Effective Dates Phone Address Type Group [facility] xxxxxxxxx 2015-Present Medicaid COMM PLAN - PLUS MANAGED MEDICAID documented as of this encounter Advance Directives Type Date Recorded Patient Dietary Aid Explanation Advance Directives and Living 01/21/2016 9:55 AM Will Power of Boiler Shop Supervisor 01/21/2016 9:55 AM
--- OUTSIDE RECORDS SUMMARY | 2019-10-07 11:40 | XMS REPORT | Summary of Care ---
:1990 Author Organization [facility] - [facility] Address [address] [place] [address] Care Team Providers Name Role Phone Wu Slater Unavailable Unavailable Joe Regalado MD Unavailable Arina Escudero AUD Unavailable Unavailable Romero Zamarripa MD Insurance Hmo Romero Zamarripa MD Primary Care Provider Reason for Referral Radiology Services (STAT) Status Reason Specialty Diagnoses / Referred By Referred To Procedures Contact Contact New Request Diagnostic Diagnoses Generalized abdominal pain Other constipation Diana, Katye R, Radiology Procedures 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 [address] [place] [address] Radiology Services (STAT) Status Reason Specialty Diagnoses / Referred By Referred To Procedures Contact Contact New Request Diagnostic Diagnoses Generalized abdominal pain Other constipation Diana, Katye R, Radiology Procedures 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 [address] [place] [address] Reason for Visit Reason Comments Abdominal Pain 1 day Vomiting Nausea Constipation 2 wks Auth/Cert Status Reason Specialty Diagnoses / Referred By Referred To Procedures Contact Contact Emergency Medicine [facility] Emergency Dept [address] [place] [address] Encounter Details Date Type Department Care Team Description 07/04/2019 Emergency [facility] Zoran Singer, Generalized abdominal pain (Primary Dx); Department Other constipation; [address] [place] Acute cystitis without hematuria [place], [place] [phone] LUDY OSMAN [phone] Allergies Active Allergy Reactions Severity Noted Date [...] as of this encounter (statuses as of 07/04/2019) Medications Medication Sig Dispensed Refills Start Date [...] 1 tablet 90 tablet 3 02/07/2019 Active 10-Orwm-CJ-DSS by mouth 90-1-50 mg per daily. tabletIndications: Secondary oligomenorrhea, Patient desires metoprolol succinate Take 0.5 45 tablet 0 02/09/2019 Active XL 25 mg 24 hr tablets by tablet mouth daily. diphenhydrAMINE Take 50 mg by 0 Active (BENADRYL) 25 mg mouth. capsuleIndications: pt stated that she takes it every 8hrs PRN, for allergy PNV Take 1 tablet 30 tablet 11 03/05/2019 Active Comb.Md31-Kzpr,Carb- by mouth FA-DSS 29-1-50 mg daily. TbECIndications: [...] 3 Bipolar 1 disorder (three) times daily. oxybutynin chloride Take 1 tablet 30 [...] Vomiting specified, (N/V). unspecified vomiting type cephALEXin (KEFLEX) Take 1 capsule 14 capsule 0 07/04/2019 Active 500 mg by mouth 2 9 capsuleIndications: (two) times Acute cystitis daily for 7 without hematuria days. cephALEXin 500 mg Take 1 capsule 28 capsule 0 06/16/2019 Discontinued capsuleIndications: by mouth 4 9 Acute cystitis (four) times without hematuria daily. 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 04/08/2018 Hypogammaglobulinemia 01/05/2018 Lumbosacral spondylosis without myelopathy 08/09/2017 Overview: Added automatically from request for surgery [id number] Tachycardia 02/04/2017 History of DVT (deep vein [...] as of this encounter (statuses as of 07/04/2019) Resolved Problems Problem Noted Date Resolved Date [...] Headache 03/07/2014 06/06/2019 Overview: ICD10 Diagnosis 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 Seizure 02/18/2014 01/24/2018 documented as of this encounter (statuses as of 07/04/2019) Immunizations Name Administration Dates Next Due Influenza [...] Sign Reading Time Taken Comments Blood Pressure 124/82 07/04/2019 7:33 PM CDT Pulse 83 07/04/2019 7:33 PM CDT Temperature 36.8 C (98.3 F) 07/04/2019 5:14 PM CDT Respiratory Rate 18 07/04/2019 7:33 PM CDT Oxygen Saturation 97% 07/04/2019 7:33 PM CDT Inhaled Oxygen Concentration - - Weight 107.5 kg (237 lb) 07/04/2019 2:30 PM CDT Height - - Body Mass Index 44.06 06/15/2019 9:12 AM CDT documented in this encounter Discharge Instructions InstructionsZoran Singer MD - 07/04/2019Return to ER for worsening pain, vomiting, fever AttachmentsThe following attachments cannot be sent through Care Everywhere.Abdominal Pain, Adult (Cuban)Urinary Tract Infections (UTIs), Understanding (Cuban)Constipation (Adult) (Cuban)Constipation, Treating ( Cuban)Diet, Eating a High-Fiber (Cuban)documented in this encounter Plan of Treatment Date Type Specialty Care Team Description 07/09/2019 Appointment Radiology Asia Gupta MD [address] [facility] [id number] [place], [place] [phone] 07/09/2019 Appointment Radiology Nik Alfredo MD [address] [place], [place] [phone] 07/10/2019 Office Visit Family Medicine Addi Staley MD [address] [facility] [address] [place] [address] 07/10/2019 Office Visit Pulmonary Disease [address] Willoughby [address] [place] [address] [phone] 08/16/2019 Office Visit Cardiology Anil Stewart MD [address] [place] [phone] 08/23/2019 Office Visit Rheumatology Neville Pritchett MD [address] [place] [phone] 08/27/2019 Office Visit Gastroenterology GoSrikanth carranza MD [address] [place] [phone] 09/17/2019 Office Visit Orthopedic Surgery Wu Marcelino MD [address] [place], [place] [phone] Name Type Priority Associated Diagnoses Date/Time XR KUB IMAGING STAT Generalized abdominal pain 07/04/2019 7:02 PM CDT Other constipation Health Maintenance Due Date Last Done Comments [...] of this encounter Implants Implanted Type Area Jewelsmith Device Shelf Model / Identifier Expiration Serial / Date Lot [place], Arthrex Fastak Auture #[id number] - [id number] ANCHOR Right: [employer] 08/14/2018 [id number] / Implanted: Qty: 1 on 04/09/2014 by Nik Alfredo MD at [facility] AT [facility] / [id number] [place], Arthrex Fastak Auture #[id number] - [id number] ANCHOR Left: [employer] 11/13/2018 [id number] / Implanted: Qty: 2 on 03/18/2015 by Nik Alfredo MD at [facility] AT [facility] / [id number] 22fr Alia Gastric-Jejunal Tube Peg [facility] 08/14/2019 ALIA / Implanted: Qty: 1 on 06/08/2018 at [facility] 0250- 22 / [id number] Screw, Small Bone Innovations 6.0mm X50mm Fusifix Triple Thrd #955-4007 - [id number] SCREW Right: Small Bone [id number] / Implanted: Qty: 1 on 04/09/2014 by Nik Alfredo MD at [facility] [place] [facility] Feet Innovations / Screw, Small Bone Innovations 6.0mm X60mm Fusifix Triple Thrd #955-4009 - [id number] SCREW Right: Small Bone [id number] / Implanted: Qty: 1 on 04/09/2014 by Nik Alfredo MD at [facility] [place] [facility] Healthways Innovations / Screw, Small Bone Innovations 6.0mm X40mm Fusifix Triple Thrd #955-4005 - [id number] SCREW Left: Small Bone [id number] / Implanted: Qty: 2 on 03/18/2015 by Nik Alfredo MD at [facility] AT [facility] Foot Innovations / AUTO #1 LOAD #[id number] K-Wire, Small Bone Innovations 1.5 X 150mm #960-0000 - [id number] WIRE Small Bone 960-0000 / Implanted: Qty: 2 on 04/09/2014 at [facility] AT [facility] Socratic / K-Wire, Small Bone Innovations 1.5 X 150mm #960-0000 - [id number] WIRE Left: Small Bone 960-0000 / Implanted: Qty: 3 on 03/18/2015 at [facility] Foot Innovations / AUTO #1 LOAD #5 [id number] documented as of this encounter Procedures Procedure Name Priority Date/Time Associated Diagnosis Comments XR KUB STAT 07/04/2019 7:02 PM CDT Generalized abdominal pain Other constipation Procedure Note - [facility] [[email or web address] Radiant Results Inft User - 07/04/2019 7:06 PM CDT EXAM: XR KUB HISTORY: constipation COMPARISON: 05/08/2019 FINDINGS: A percutaneous gastrostomy tube is noted, with balloon projecting over the stomach. The bowel gas pattern is normal without luminal distention or evidence of obstruction. A large volume of mixed stool and gas is in the colon and rectum. Right upper quadrant and left lower quadrant surgical clips are noted. No acute osseous abnormalities are identified. IMPRESSION Large amount of fecal burden, correlate for constipation. Nonobstructive bowel gas pattern. EXTRA TUBE URINE STAT 07/04/2019 5:14 PM CULTURE CDT URINALYSIS STAT 07/04/2019 5:14 PM Generalized Results for this CDT abdominal pain procedure are in Other constipation the results section. CBC WITH DIFFERENTIAL STAT 07/04/2019 3:31 PM Generalized Results for this CDT abdominal pain procedure are in Other constipation the results section. CBC WITH DIFF STAT 07/04/2019 3:31 PM Generalized Results for this CDT abdominal pain procedure are in Other constipation the results section. COMP. METABOLIC PANEL STAT 07/04/2019 3:31 PM Generalized Results for this (09573) CDT abdominal pain procedure are in Other constipation the results section. LIPASE STAT 07/04/2019 3:31 PM Generalized Results for this CDT abdominal pain procedure are in Other constipation the results section. CONSENT/REFUSAL FOR Routine 07/04/2019 2:22 PM DIAGNOSIS AND CDT TREATMENT documented in this encounter Results EXTRA TUBE URINE CULTURE (07/04/2019 5:14 PM CDT) Specimen Urine - URINE, CLEAN CATCH Performing Organization Address City/[facility]/Zipcode Phone Number [facility] CLIA: [id number], [address] [place] [phone] [facility] URINALYSIS (07/04/2019 5:14 PM CDT) APPEARANCE Hazy (A) Clear [facility] COLOR Yellow Yellow [facility] PH 6.0 4.8 - 8.0 [facility] SP GRAVITY 1.010 1.003 - 1.030 [facility] GLU U QUAL Normal Normal [facility] BLOOD NegativeComment: Negative [facility] INTERFERENCE FROM [facility] ASCORBIC [facility] CAUSE FALSE NEGATIVE RESULT KETONES Negative Negative [facility] PROTEIN Negative Negative [facility] UROBILIN Normal Normal [facility] BILIRUBIN Negative Negative [facility] NITRITE Negative Negative [facility] LEUK RICHARD 75/uL (A) Negative [facility] RBC/HPF 2 0 - 3 HPF [facility] WBC/HPF 41 (H) 0 - 5 HPF [facility] BACTERIA Moderate (A) Negative [facility] SQ EPITH 4 (H) <=2 HPF [facility] Specimen Urine - URINE, CLEAN CATCH Performing Organization Address City/[facility]/Zipcode Phone Number [facility] CLIA: [id number], [address] [place] [address] [facility] CBC WITH DIFFERENTIAL (07/04/2019 3:31 PM CDT) WBC 8.53 4.30 - 11.10 [facility] 10*3/L [facility] RBC 4.19 3.93 - 5.25 [facility] 10*6/L [facility] HGB 12.0 11.6 - 15.0 [facility] g/dL [facility] HCT 37.6 35.7 - 45.2 % [facility] MCV 89.7 80.6 - 95.5 fL [facility] MCH 28.6 25.9 - 32.8 pg [facility] MCHC 31.9 31.6 - 35.1 [facility] g/dL [facility] RDW-SD 45.7 39.0 - 49.9 fL [facility] RDW-CV 14.2 12.0 - 15.5 % [facility] PLT 395 (H) 166 - 358 [facility] 10*3/L [facility] MPV 9.2 (L) 9.5 - 12.9 fL [facility] NRBC/100 WBC 0.0 0.0 - 10.0 /100 [facility] WBCs [facility] NRBC x10^3 <0.01 10*3/L [facility] GRAN MAT (NEUT) % 66.8 % [facility] IMM GRAN % 1.40 % [facility] LYMPH % 21.6 % [facility] MONO % 7.4 % [facility] EOS % 2.2 % [facility] BASO % 0.6 % [facility] GRAN MAT x10^3(ANC) 5.70 1.88 - 7.09 [facility] 10*3/uL [facility] IMM GRAN x10^3 0.12 (H) 0.00 - 0.06 [facility] 10*3/uL [facility] LYMPH x10^3 1.84 1.32 - 3.29 [facility] 10*3/uL [facility] MONO x10^3 0.63 0.33 - 0.92 [facility] 10*3/uL [facility] EOS x10^3 0.19 0.03 - 0.39 [facility] 10*3/uL [facility] BASO x10^3 0.05 0.01 - 0.07 [facility] 10*3/uL [facility] Specimen Blood - VENOUS Performing Organization Address City/[facility]/Zipcode Phone Number [facility] CLIA: [id number], [address] [place] [address] [facility] LIPASE (07/04/2019 3:31 PM CDT) LIPASE 78 0 - 220 U/L [facility] Specimen Blood - VENOUS Performing Organization Address City/[facility]/Zipcode Phone Number [facility] CLIA: [id number], [address] [place] [address] [facility] COMP. METABOLIC PANEL (51768) (07/04/2019 3:31 PM CDT) NA 139 135 - 145 [facility] mmol/L [facility] K 4.8 3.5 - 5.0 [facility] mmol/L [facility] CL 102 98 - 108 mmol/L [facility] CO2 TOTAL 27 23 - 31 mmol/L [facility] AGAP 10 2 - 16 [facility] BUN 10 7 - 23 mg/dL [facility] GLUCOSE 114 (H) 70 - 110 mg/dL [facility] CREATININE 0.57 0.50 - 1.04 [facility] mg/dL [facility] TOTAL BILI 0.2 0.1 - 1.1 mg/dL [facility] CALCIUM 10.0 8.6 - 10.6 [facility] mg/dL [facility] T PROTEIN 7.2 6.3 - 8.2 g/dL [facility] ALBUMIN 4.3 3.5 - 5.0 g/dL [facility] ALK PHOS 66 34 - 122 U/L [facility] ALT(SGPT) 40 9 - 51 U/L [facility] AST(SGOT) 25 13 - 40 U/L [facility] eGFR Calculation 123.7 mL/min/1.73m2 [facility] (Non- [facility] Vincentian) [place] eGFR Calculation 149.9 mL/min/1.73m2 [facility] () [facility] Specimen Blood - VENOUS Narrative Performed At Association of Glomerular Filtration Rate [facility] (GFR) and Staging of Kidney Disease* [place] + + --+ + | GFR (mL/min/1.73 m2)| With Kidney Damage|Without Kidney Damage + + --+ + |>90 |Stage one| Normal + + --+ + |60-89| Stage two| Decreased GFR + + --+ + |30-59| Stage three| Stage three + + --+ + |15-29| Stage four | Stage four + + --+ + |<15 (or dialysis)|Stage five | Stage five + + --+ + *Each stage assumes the associated GFR level has been in effect for at least three months.Stages 1 to 5, with or without kidney disease, indicate chronic kidney disease. Notes: Determination of stages one and two (with eGFR >59mL/min/1.73 m2) requires estimation of kidney damage for at least three months as defined by structural or functional abnormalities of the kidney, manifested by either: Pathological abnormalities or Markers of kidney damage (including abnormalities in the composition of the blood or urine or abnormalities in imaging tests). Performing Organization Address City/State/Zipcode Phone Number [facility] CLIA: [id number], [address] [place] [address] SERVICES-[facility] documented in this encounter Visit Diagnoses Diagnosis Generalized abdominal pain - Primary Abdominal pain, generalized Other constipation Acute cystitis without hematuria Acute cystitis documented in this encounter Administered Medications Medication Order MAR Action Action Date Dose Rate Site cefTRIAXone (ROCEPHIN) 1,000 mg Given 07/04/2019 7:09 PM CDT 1,000 mg in NaCl 0.9% (NS) 50 mL MINI-BAG 1,000 mg, IV Piggyback, ONCE, 1 dose, Tue07/04/19 at 1945, 50 mL, Reason for Anti-Infective: Documented Infection, Documented Infection Site: Urine, Duration of Therapy: 7 days FENTanyl PF (SUBLIMAZE (PF)) injection 50 Given 07/04/2019 5:55 PM CDT 50 mcg mcg 50 mcg, Slow IV Push, ONCE, 1 dose, Tue07/04/19 at 1845, STAT FENTanyl PF (SUBLIMAZE (PF)) injection 50 Given 07/04/2019 7:09 PM CDT 50 mcg mcg 50 mcg, Slow IV Push, ONCE, 1 dose, Tue07/04/19 at 1945, STAT lactulose (CEPHULAC) solution 60 mL Given 07/04/2019 5:06 PM CDT 60 mL 60 mL, Oral, ONCE, 1 dose, Tue07/04/19 at 1615, BARRETT NaCl 0.9% (NS) IV infusion 1,000 New Bag 07/04/2019 5:06 PM CDT 1,000 mL 999 mL/hr mL at 999 mL/hr, Intravenous, ONCE, 1 dose, Tue07/04/19 at 1615, Routine ondansetron (ZOFRAN (PF)) injection 4 mg Given 07/04/2019 5:06 PM CDT 4 mg 4 mg, Slow IV Push, ONCE, 1 dose, Tue07/04/19 at 1615, BARRETT documented in this encounter Insurance Payer Benefit Plan / Subscriber ID Effective Dates Phone Address Type Group [facility] xxxxxxxxx 2015-Present Medicaid COMM PLAN - PLUS MANAGED MEDICAID documented as of this encounter Advance Directives Type Date Recorded 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
--- OUTSIDE RECORDS SUMMARY | 2019-10-07 11:41 | XMS REPORT | Summary of Care ---
:1990 Author Organization [facility] Address [address] [place] [address] Care Team Providers Name Role Phone SarahidonitaWu Unavailable Unavailable Joe Regalado MD Unavailable Arina Escudero AUD Unavailable Unavailable Romero Zamarripa MD Insurance Hmo Romero Zamarripa MD Primary Care Provider Reason for Visit Reason Comments Medication Assistance [employer] Company ([employer]) Requesting Updated Order Encounter Details Date Type Department Care Team Description 07/03/2019 Telephone [facility] Srikanth Hall Medication Assistance GASTROENTEROLOGY -Betty Sparks MD (D[employer] Company ([employer]) [address] Requesting Updated [address] [place], [place] Order) [address] [address] [place] [phone] Allergies Active Allergy Reactions Severity Noted Date [...] as of this encounter (statuses as of 07/06/2019) Medications Medication Sig Dispensed Refills Start Date [...] tablet by 90 tablet 3 02/07/2019 Active 55-Qoyx-UJ-DSS 90-1-50 mouth daily. mg per tabletIndications: Secondary oligomenorrhea, Patient desires metoprolol succinate XL Take 0.5 tablets 45 tablet 0 02/09/2019 Active 25 mg 24 hr tablet by mouth daily. diphenhydrAMINE Take 50 mg by 0 Active (BENADRYL) 25 mg mouth. capsuleIndications: pt stated that she takes it every 8hrs PRN, for allergy PNV Take 1 tablet by 30 tablet 11 03/05/2019 Active Comb.Po24-Ksjn,Carb-FA- mouth daily. DSS 29-1-50 mg TbECIndications: Encounter [...] by 2838 mL 2 07/03/2019 Active mL solutionIndications: mouth every 6 Nausea and vomiting, (six) hours as intractability of needed for vomiting not specified, Nausea and unspecified vomiting Vomiting (N/V). 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 04/08/2018 Hypogammaglobulinemia 01/05/2018 Lumbosacral spondylosis without myelopathy 08/09/2017 Overview: Added automatically from request for surgery [id number] Tachycardia 02/04/2017 History of DVT (deep vein [...] as of this encounter (statuses as of 07/06/2019) Resolved Problems Problem Noted Date Resolved Date [...] Headache 03/07/2014 06/06/2019 Overview: ICD10 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 02/18/2014 01/24/2018 documented as of this encounter (statuses as of 07/06/2019) Immunizations Name Administration Dates Next Due Influenza [...] 07/09/2019 Appointment Radiology Asia Gupta MD 301 [facility] [address] [place], [place] [phone] 07/09/2019 Appointment Radiology Nik Alfredo MD 301 [place], [place] [phone] 07/10/2019 Office Visit Family Medicine Addi Staley MD [address] [facility] [address] [place] [address] 08/16/2019 Office Visit Cardiology Anil Stewart MD [address] [place] [phone] 08/23/2019 Office Visit Rheumatology Neville Pritchett MD [address] [place] [phone] 08/27/2019 Office Visit Gastroenterology GoSrikanth carranza MD [address] [place] [phone] 09/11/2019 Office Visit Pulmonary Disease Eli Miller MD [address] [place] [phone] 09/17/2019 Office Visit Orthopedic Surgery Wu Marcelino MD [address] [place], [place] 623[address] Health Maintenance Due Date Last Done Comments [...] of this encounter Implants Implanted Type Area Lime Spreader Device Shelf Model / Identifier Expiration Serial / Date Lot [place], Arthrex Fastak Auture #[id number] - [id number] ANCHOR Right: Arthrex Inc 08/14/2018 [id number] / Implanted: Qty: 1 on 04/09/2014 by Nik Alfredo MD at [facility] [place] AT [facility] / [id number] [place], Arthrex Fastak Auture #[id number] - [id number] ANCHOR Left: Arthrex Inc 11/13/2018 [id number] / Implanted: Qty: 2 on 03/18/2015 by Nik Alfredo MD at [facility] AT [facility] / [id number] 22fr Alia Gastric-Jejunal Tube Peg [facility] 08/14/2019 ALIA / Implanted: Qty: 1 on 06/08/[address] [facility] 0250- 22 / [id number] Screw, Small Bone Innovations 6.0mm X50mm Fusifix Triple Thrd #955-4007 - [id number] SCREW Right: Small Bone [id number] / Implanted: Qty: 1 on 04/09/2014 by Nik Alfredo MD at [facility] [place] AT [facility] Feet Innovations / Screw, Small Bone Innovations 6.0mm X60mm Fusifix Triple Thrd #955-4009 - [id number] SCREW Right: Small Bone [id number] / Implanted: Qty: 1 on 04/09/2014 by Nik Alfredo MD at [facility] [place] AT [facility] Feet Innovations / Screw, Small Bone Innovations 6.0mm X40mm Fusifix Triple Thrd #955-4005 - [id number] SCREW Left: Small Bone 955-4005 / Implanted: Qty: 2 on 03/18/2015 by Nik Alfredo MD at [facility] AT [facility] Foot Innovations / AUTO #1 LOAD #5 [id number] K-Wire, Small Bone Innovations 1.5 X 150mm #960-0000 - [id number] WIRE Small Bone 960-0000 / Implanted: Qty: 2 on 04/09/2014 at [facility] AT [facility] Innovations / K-Wire, Small Bone Innovations 1.5 X 150mm #960-0000 - [id number] WIRE Left: Small Bone 960-0000 / Implanted: Qty: 3 on 03/18/2015 at [facility] AT [facility] Foot Innovations / AUTO #1 LOAD #5 [id number] documented as of this encounter Results Not on filedocumented in this encounter Insurance Payer Benefit Plan / Subscriber ID Effective Dates Phone Address Type Group [facility] xxxxxxxxx 2015-Present Medicaid COMM PLAN - PLUS MANAGED MEDICAID documented as of this encounter Advance Directives Type Date Recorded 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
--- OUTSIDE RECORDS SUMMARY | 2019-10-07 11:42 | XMS REPORT | Summary of Care ---
:1990 Author Organization [facility] - [facility] Address [address] [place] [address] Care Team Providers Name Role Phone SarahidonitauW Unavailable Unavailable Joe Regalado MD Unavailable Arina Escudero AUD Unavailable Unavailable Romero Zamarripa MD Insurance Hmo Romero Zamarripa MD Primary Care Provider Encounter Details Date Type Department Care Team Description 06/01/2019 Patient Secure [facility] Family Addi Staley MD [address] Primary [address], [address] [place] [address] Allergies Active Allergy Reactions Severity [...] as of this encounter (statuses as of 07/07/2019) Medications Medication Sig Dispensed Refills Start End Date Status Date ranitidine 300 mg Take one tablet 30 tablet 2 Active tablet each night 7 before bedtime diclofenac 3 % gel 0 Active 7 fluticasone-salmeter Inhale 2 Puffs 2 12 Inhaler 5 Active ol (ADVAIR HFA) (two) times 8 230-21 mcg/actuation daily. inhaler olopatadine (PAZEO) Place 1 Drop in 2.5 mL 11 Active 0.7 % Drop each eye daily. 8 fluticasone (FLONASE Use 2 Sprays in 16 g 11 Active ALLERGY RELIEF) 50 each nostril 8 mcg/actuation nasal daily. spray XOPENEX HFA 45 Inhale 1-2 Puffs 15 g 2 Active mcg/actuation every 4 (four) 8 inhaler hours as needed for Wheezing. lactose-reduced food Take 80 mL/hr 30 Bottle 1 Active with fibr (ISOSOURCE through feeding 8 1.5 [place]) 0.07 tube daily. gram-1.5 kcal/mL Liqd albuterol 2.5 mg /3 Inhale 3 mL 1 Box 6 Active mL (0.083 %) every 4 (four) 8 nebulizer solution hours as needed for Wheezing or Shortness of Breath. ipratropium 0.02 % Inhale 2.5 mL 30 Vial 6 Active nebulizer solution every 6 (six) 8 hours as needed for Wheezing or Shortness of Breath. Lancets (ONETOUCH Use lancet BID 100 Each 3 Active ULTRASOFT LANCETS) 9 MiscIndications: Type 2 diabetes mellitus without complication, without long-term current use of insulin povidone-iodine Apply to 100 mL 1 Active (BETADINE) 10 % area(s) as 9 solutionIndications: needed (wound). Wound abscess Vit Take 1 tablet by 90 tablet 3 Active 02-Xrig-KL-DSS mouth daily. 9 90-1-50 mg per tabletIndications: Secondary oligomenorrhea, Patient desires metoprolol succinate Take 0.5 tablets 45 tablet 0 Active XL 25 mg 24 hr by mouth daily. 9 tablet diphenhydrAMINE Take 50 mg by 0 Active (BENADRYL) 25 mg mouth. capsuleIndications: pt stated that she takes it every 8hrs PRN, for allergy PNV Take 1 tablet by 30 tablet 11 Active Comb.Yv65-Qkso,Carb- mouth daily. 9 FA-DSS 29-1-50 mg TbECIndications: Encounter for preconception consultation baclofen 10 mg Take 1 tablet by 90 tablet 0 Active tabletIndications: mouth 3 (three) 9 Neck muscle spasm times daily. ONETOUCH VERIO USE 1 STRIP 2 50 Strip 3 Active stripIndications: (TWO) TIMES 9 Type 2 diabetes DAILY. mellitus without complication, without long-term current use of insulin mupirocin 2 % Apply to 30 g 0 Active ointment area(s) 3 9 (three) times daily. nystatin 100,000 Apply to 30 g 1 Active unit/gram powder area(s) 2 (two) 9 times daily. amitriptyline 50 mg Take 1 tablet by 30 tablet 2 Active tabletIndications: mouth at 9 Abdominal pain, bedtime. unspecified abdominal location AZELASTINE 137 mcg USE 1 SPRAY IN 1 Bottle 1 Active (0.1 %) nasal EACH NOSTRIL 2 9 sprayIndications: (TWO) TIMES Upper respiratory DAILY. infection with cough and congestion butalbital-acetamino Take 1 tablet by 20 tablet 0 Active phen-caff 50-325-40 mouth every 6 9 mg (six) hours as tabletIndications: needed (prn Nonintractable for). headache, unspecified chronicity pattern, unspecified headache type dicyclomine 10 mg Take 1 capsule 90 capsule 3 Active capsuleIndications: by mouth 3 9 Nausea and vomiting, (three) times intractability of daily. vomiting not specified, unspecified vomiting type midodrine 2.5 mg TAKE 1 TABLET 3 90 tablet 0 Active tablet TIMES A DAY 9 traMADOL (ULTRAM) 50 Take 1 tablet by 12 tablet 0 Active mg mouth every 6 9 tabletIndications: (six) hours as Chronic pain of needed for Pain right ankle (scale 7-10). Oral Electrolytes GIVE 166ML EVERY 1 Bottle 3 Active (PEDIATRIC 4 HOURS VIA PEG 9 ELECTROLYTE) solutionIndications: Nonepileptic episode promethazine 6.25 Take 20 mL by 473 mL 11 06/16/20 Discontinued mg/5 mL mouth every 6 9 19 solutionIndications: (six) hours as Nausea and vomiting, needed for intractability of Nausea and vomiting not Vomiting (N/V). specified, unspecified vomiting type ondansetron 4 mg/5 Take 5 mL by 3 Bottle 2 06/05/20 mL mouth every 8 9 19 solutionIndications: (eight) hours as Nausea and vomiting, needed for N/V intractability of unresponsive to vomiting not Promethazine for specified, up to 14 days. unspecified vomiting type traZODONE 50 mg Take 1 tablet by 30 tablet 0 06/26/20 Discontinued tabletIndications: mouth at 9 19 JOAN (obstructive bedtime. sleep apnea) documented as of this encounter (statuses as of 07/07/2019) Active Problems Problem Noted Date Migraines 06/06/2019 History of heat stroke 06/06/2019 UTI (urinary tract infection), bacterial 04/29/2019 Reflux gastritis 04/29/2019 Malfunction of jejunostomy tube 04/04/2019 Scapholunate ligament injury with no instability, right, subsequent 03/21/2019 encounter Generalized anxiety disorder 06/06/2018 breadman associated with adverse incidents 04/08/2018 Hypogammaglobulinemia 01/05/2018 Lumbosacral spondylosis without myelopathy 08/09/2017 Overview: Added automatically from request for surgery [id number] Tachycardia 02/04/2017 History of DVT (deep vein [...] as of this encounter (statuses as of 07/07/2019) Resolved Problems Problem Noted Date Resolved Date [...] Headache 03/07/2014 06/06/2019 Overview: ICD10 Diagnosis Term 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 Order Clerk Utility Seizure 02/18/2014 01/24/2018 documented as of this encounter (statuses as of 07/07/2019) Immunizations Name Administration Dates Next Due Influenza [...] 07/09/2019 Appointment Radiology Asia Gupta MD [address] [facility] CV[address] [place], [place] [phone] 07/09/2019 Appointment Radiology Nik Alfredo MD 301 [place], [place] [phone] 07/10/2019 Office Visit Family Medicine Addi Staley MD [address] [facility] [address] [place], [place] [address] 08/16/2019 Office Visit Cardiology Anil Stewart MD [address] [place] [phone] 08/23/2019 Office Visit Rheumatology Neville Pritchett MD [address] [place] [phone] 08/27/2019 Office Visit Gastroenterology Gou, Srikanth Sparks MD [address] [place] [address] [phone] 09/11/2019 Office Visit Pulmonary Disease Eli Miller MD [address] [place] [phone] 09/17/2019 Office Visit Orthopedic Surgery Wu Marcelino MD [address] [place], [place] 087[address] Health Maintenance Due Date Last Done Comments [...] of this encounter Implants Implanted Type Area Labor Supervisor Device Shelf Model / Identifier Expiration Serial / Date Lot [place], Arthrex Fastak Auture #[id number] - [id number] ANCHOR Right: Arthrex Inc 08/14/2018 [id number] / Implanted: Qty: 1 on 04/09/2014 by Nik Alfredo MD at [facility] AT [facility] Feet / [id number] [place], Arthrex Fastak Auture #[id number] - [id number] ANCHOR Left: Arthrex Inc 11/13/2018 [id number] / Implanted: Qty: 2 on 03/18/2015 by Nik Alfredo MD at [facility] AT [facility] / [id number] 22fr Alia Gastric-Jejunal Tube Peg [facility] 08/14/2019 ALIA / Implanted: Qty: 1 on 06/08/2018 at [facility] 0250- 22 / [id number] Screw, Small Bone Innovations 6.0mm X50mm Fusifix Triple Thrd #955-4007 - [id number] SCREW Right: Small Bone 955-4007 / Implanted: Qty: 1 on 04/09/2014 by Nik Alfredo MD at [facility] [place] AT [facility] NewAer Innovations / Screw, Small Bone Innovations 6.0mm X60mm Fusifix Triple Thrd #955-4009 - [id number] SCREW Right: Small Bone 955-4009 / Implanted: Qty: 1 on 04/09/2014 by Nik Alfredo MD at [facility] [place] AT [facility] [employer]Aer Innovations / Screw, Small Bone Innovations 6.0mm X40mm Fusifix Triple Thrd #955-4005 - [id number] SCREW Left: Small Bone 955-4005 / Implanted: Qty: 2 on 03/18/2015 by Nik Alfredo MD at [facility] [place] AT [facility] Foot Innovations / AUTO #1 LOAD #5 [id number] K-Wire, Small Bone Innovations 1.5 X 150mm #960-0000 - [id number] WIRE Small Bone 960-0000 / Implanted: Qty: 2 on 04/09/2014 at [facility] [place] AT [facility] KZO Innovations / K-Wire, Small Bone Innovations 1.5 X 150mm #960-0000 - [id number] WIRE Left: Small Bone 960-0000 / Implanted: Qty: 3 on 03/18/2015 at [facility] AT [facility] [employer] Innovations / AUTO #1 LOAD #5 [id number] documented as of this encounter Results Not on filedocumented in this encounter Insurance Payer Benefit Plan / Subscriber ID Effective Dates Phone Address Type Group [facility] xxxxxxxxx 2015-Present Medicaid COMM PLAN - PLUS MANAGED MEDICAID documented as of this encounter Advance Directives Type Date Recorded Patient 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
--- OUTSIDE RECORDS SUMMARY | 2019-10-07 11:42 | XMS REPORT | Summary of Care ---
:1988 Author Organization [facility] - [facility] Address [address] [place] [address] Care Team Providers Name Role Phone Wu Slater Unavailable Unavailable Joe Regalado MD Unavailable Arina Escudero Unavailable Unavailable Romero Zamarripa MD Insurance Hmo Romero Zamarripa MD Primary Care Provider Reason for Referral Radiology Services (STAT) Status Reason Specialty Diagnoses / Referred By Referred To Procedures Contact Contact New Request Diagnostic Diagnoses Pain of left hand Ebrahim, Rania, Radiology Procedures XR HAND 3+ VW LEFT 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 [address] [place] [address] Radiology Services (STAT) Status Reason Specialty Diagnoses / Referred By Referred To Procedures Contact Contact New Request Diagnostic Diagnoses Pain of left hand Ebrahim, Rania, Radiology Procedures XR HAND 3+ VW LEFT 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 [address] [place] [address] Reason for Visit Radiology Services (STAT) Status Reason Specialty Diagnoses / Referred By Referred To Procedures Contact Contact New Request Diagnostic Diagnoses Pain of left hand Ebrahim, Rania, Radiology Procedures XR HAND 3+ VW LEFT 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 [address] [place] [address] Encounter Details Date Type Department Care Team Description 07/06/2019 Hospital Encounter [facility] Serge Paniagua FNP Arrived - [facility] [address] [facility] [address] [address] [place] [phone] Allergies Active Allergy Reactions Severity Noted Date [...] 07/07/2019) Medications Medication Sig Dispensed Refills Start Date [...] (FLONASE Use 2 Sprays in 16 g 08/02/2018 Active ALLERGY RELIEF) 50 each nostril [...] tablet by 90 tablet 3 02/07/2019 Active 98-Xlwg-IG-DSS 90-1-50 mouth daily. mg per tabletIndications: Secondary oligomenorrhea, Patient desires metoprolol succinate Take 0.5 tablets 45 tablet 0 02/09/2019 Active XL 25 mg 24 hr tablet by mouth daily. diphenhydrAMINE Take 50 mg by 0 Active (BENADRYL) 25 mg mouth. capsuleIndications: pt stated that she takes it every 8hrs PRN, for allergy PNV Take 1 tablet by 30 tablet 11 03/05/2019 Active Comb.Cj32-Nfjs,Carb-FA mouth daily. 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 [place] [phone] 08/23/2019 Office Visit Rheumatology Neville Pritchett MD [address] [facility] [place] [phone] 08/27/2019 Office Visit Gastroenterology Srikanth Hall MD [address] [place] [address] [phone] 09/11/2019 Office Visit Pulmonary Disease Eli Miller MD [address] [place] [phone] 09/17/2019 Office Visit Orthopedic Surgery Wu Marcelino MD [address] [place] [address] Health Maintenance Due Date Last Done Comments [...] of this encounter Implants Implanted Type Area Peanut Cleaner Device Shelf Model / Identifier Expiration Serial / Date Lot [place], Arthmayco Fastak Auture #[id number] - [id number] ANCHOR Right: Arthrex Inc 08/14/2018 [id number] / Implanted: Qty: 1 on 04/09/2014 by Nik Alfredo MD at [facility] AT [facility] / [id number] [place], Arthrex Fastak Auture #Lu-0625-925ng - [id number] ANCHOR Left: Arthrex Inc 11/13/2018 [id number] / Implanted: Qty: 2 on 03/18/2015 by Nik Alfredo MD at [facility] AT [facility] / [id number] 22fr Alia Gastric-Jejunal Tube Peg [facility] 08/14/2019 ALIA / Implanted: Qty: 1 on 06/08/2018 at [facility] 0250- 22 / [id number] Screw, Small Bone Innovations 6.0mm X50mm Fusifix Triple Thrd #955-4007 - [id number] SCREW Right: Small Bone 955-4007 / Implanted: Qty: 1 on 04/09/2014 by Nik Alfredo MD at [facility] AT [facility] Innovations / Screw, Small Bone Innovations 6.0mm X60mm Fusifix Triple Thrd #955-4009 - [id number] SCREW Right: Small Bone 955-4009 / Implanted: Qty: 1 on 04/09/2014 by Nik Alfredo MD at [facility] AT [facility] Innovations / Screw, Small Bone Innovations 6.0mm X40mm Fusifix Triple Thrd #955-4005 - [id number] SCREW Left: Small Bone 955-4005 / Implanted: Qty: 2 on 03/18/2015 by Nik Alfredo MD at [facility] AT [facility] Foot Innovations / AUTO #1 LOAD #5 [id number] K-Wire, Small Bone Innovations 1.5 X 150mm #960-0000 - [id number] WIRE Small Bone 960-0000 / Implanted: Qty: 2 on 04/09/2014 at [facility] AT [facility] / K-Wire, Small Bone Innovations 1.5 X 150mm #960-0000 - [id number] WIRE Left: Small Bone 960-0000 / Implanted: Qty: 3 on 03/18/2015 at [facility] AT [facility] Foot Innovations / AUTO #1 LOAD #5 [id number] documented as of this encounter Procedures Procedure Name Priority Date/Time Associated Diagnosis Comments XR HAND 3+ VW LEFT STAT 07/06/2019 9:34 PM Pain of left hand Results for this CDT procedure are in the results section. documented in this encounter Results XR HAND 3+ VW LEFT (07/06/2019 9:34 PM CDT) Specimen Impressions Performed At PACS/VR/DOSE Mild swelling. No acute bony abnormality is present. Narrative Performed At EXAM: PACS/VR/DOSE XR HAND 3+ VW LEFT HISTORY: hit hand on dresser, swelling and bruising COMPARISON: None FINDINGS: Imaging of the hand demonstrates minimal periarticular osteopenia. No erosions, subluxations or acute fractures are seen. Mild swelling is noted over the dorsal hand. Procedure Note [facility], Radiant Results Inft User - 07/06/2019 9:39 PM CDT EXAM: XR HAND 3+ VW LEFT HISTORY: hit hand on dresser, swelling and bruising COMPARISON: None FINDINGS: Imaging of the hand demonstrates minimal periarticular osteopenia. No erosions, subluxations or acute fractures are seen. Mild swelling is noted over the dorsal hand. IMPRESSION Mild swelling. No acute bony abnormality is present. Performing Organization Address City/State/Zipcode Phone Number PACS/VR/DOSE documented in this encounter Visit Diagnoses Diagnosis Pain of left hand Pain in limb documented in this encounter Insurance Payer Benefit Plan / Subscriber ID Effective Dates Phone Address Type Group [facility] xxxxxxxxx 2015-Present Medicaid COMM PLAN - PLUS MANAGED MEDICAID documented as of this encounter Advance Directives Type Date Recorded Patient Casing Soaker Explanation Advance Directives and Living 01/21/2016 9:55 AM Will Power of Import/Export Freight Forwarder 01/21/2016 9:55 AM
--- OUTSIDE RECORDS SUMMARY | 2019-10-07 11:43 | XMS REPORT | Summary of Care ---
:1990 Author Organization [facility] - Health Address [address] [place] [address] Care Team Providers Name Role Phone Sarahidonita Wu Haas Unavailable Unavailable Joe Regalado MD Unavailable Arina Escudero AUD Unavailable Unavailable Romero Zamarripa MD Insurance Hmo Romero Zamarripa MD Primary Care Provider Encounter Details Date Type Department Care Team Description 06/07/2019 Patient Secure Msg [facility] MyChart Messages Doctor Unassigned, [address] [place] [address] [place] [phone] [place] [address] [place] [address] Allergies Active Allergy Reactions Severity Noted Date [...] as of this encounter (statuses as of 07/14/2019) Medications Medication Sig Dispensed Refills Start Date [...] 1 tablet 90 tablet 3 02/07/2019 Active 54-Oauu-AJ-DSS by mouth 90-1-50 mg per daily. tabletIndications: Secondary oligomenorrhea, Patient desires metoprolol succinate Take 0.5 45 tablet 0 02/09/2019 Active XL 25 mg 24 hr tablets by tablet mouth daily. diphenhydrAMINE Take 50 mg by 0 Active (BENADRYL) 25 mg mouth. capsuleIndications: pt stated that she takes it every 8hrs PRN, for allergy PNV Take 1 tablet 30 tablet 11 03/05/2019 Active Comb.Xo40-Yjno,Carb- by mouth FA-DSS 29-1-50 mg daily. TbECIndications: [...] mg by mouth tabletIndications: daily. Bladder spasms promethazine 6.25 Take 20 mL by 473 mL 11 05/09/2019 Discontinued mg/5 mL mouth every 6 9 solutionIndications: (six) hours as Nausea and vomiting, needed for intractability of Nausea and vomiting not Vomiting specified, (N/V). unspecified vomiting type traZODONE 50 mg Take 1 tablet 30 tablet 0 05/28/2019 Discontinued tabletIndications: by mouth at 9 JOAN (obstructive bedtime. 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 04/08/2018 Hypogammaglobulinemia 01/05/2018 Lumbosacral spondylosis without myelopathy 08/09/2017 Overview: Added automatically from request for surgery [id number] Tachycardia 02/04/2017 History of DVT (deep vein [...] as of this encounter (statuses as of 07/14/2019) Resolved Problems Problem Noted Date Resolved Date [...] Headache 03/07/2014 06/06/2019 Overview: ICD10 Diagnosis Term 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 [address] [place], [place] [address] 08/16/2019 Office Visit Cardiology Anil Stewart MD [address] [place] [address] [phone] 08/23/2019 Office Visit Rheumatology Neville Pritchett MD [address] [place] [phone] 08/27/2019 Office Visit Gastroenterology Srikanth Hall MD [address] [place] [address] [phone] 09/11/2019 Office Visit Pulmonary Disease Eli Miller MD [address] [place] [phone] 09/17/2019 Office Visit Orthopedic Surgery Wu Marcelino MD [address] [place], [place] [phone] Health Maintenance Due Date Last Done Comments [...] of this encounter Implants Implanted Type Area Taker Out Device Shelf Model / Identifier Expiration Serial / Date Lot [place], Arthrex Fastak Auture #[id number]-[id number] - [id number] ANCHOR Right: Arthrex Inc 08/14/2018 [id number] / Implanted: Qty: 1 on 04/09/2014 by Nik Alfredo MD at [facility] [place] [facility] Feet / [id number] [place], Arthrex Fastak Auture #[id number]-2924-256oa - [id number] ANCHOR Left: Arthrex Inc 11/13/2018 [id number] / Implanted: Qty: 2 on 03/18/2015 by Nik Alfredo MD at [facility] [place] [facility] Foot / [id number] 22fr Alia Gastric-Jejunal Tube Peg [facility] 08/14/2019 ALIA / Implanted: Qty: 1 on 06/08/2018 at [facility] 0250- 22 / [id number] Screw, Small Bone Innovations 6.0mm X50mm Fusifix Triple Thrd #955-4007 - [id number] SCREW Right: Small Bone 955-4007 / Implanted: Qty: 1 on 04/09/2014 by Nik Alfredo MD at [facility] [place] [facility] Feet Innovations / Screw, Small Bone Innovations 6.0mm X60mm Fusifix Triple Thrd #955-4009 - [id number] SCREW Right: Small Bone 955-4009 / Implanted: Qty: 1 on 04/09/2014 by Nik Alfredo MD at [facility] Feet Innovations / Screw, Small Bone Innovations 6.0mm X40mm Fusifix Triple Thrd #955-4005 - [id number] SCREW Left: Small Bone 955-4005 / Implanted: Qty: 2 on 03/18/2015 by Nik Alfredo MD at [facility] Foot Innovations / AUTO #1 LOAD #5 [id number] K-Wire, Small Bone Innovations 1.5 X 150mm #960-0000 - [id number] WIRE Small Bone 960-0000 / Implanted: Qty: 2 on 04/09/2014 at [facility] AT [facility] / K-Wire, Small Bone Innovations 1.5 X 150mm #960-0000 - [id number] WIRE Left: Small Bone 960-0000 / Implanted: Qty: 3 on 03/18/2015 at [facility] Foot Innovations / AUTO #1 LOAD #5 [id number] documented as of this encounter Results Not on filedocumented in this encounter Insurance Payer Benefit Plan / Subscriber ID Effective Dates Phone Address Type Group [facility] xxxxxxxxx 2015-Present Medicaid COMM PLAN - PLUS MANAGED MEDICAID documented as of this encounter Advance Directives Type Date Recorded 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
--- OUTSIDE RECORDS SUMMARY | 2019-10-07 11:43 | XMS REPORT | Summary of Care ---
:1990 Author Organization [facility] - [facility] Address [address] [place] [address] Care Team Providers Name Role Phone SaarhidonitaWu Unavailable Unavailable Joe Regalado MD Unavailable Arina Escudero AUD Unavailable Unavailable Romero Zamarripa MD Insurance Hmo Romero Zamarripa MD Primary Care Provider Encounter Details Date Type Department Care Team Description 06/13/2019 Patient Secure [facility] Family Addi Staley MD [address] [place] [address] Allergies Active Allergy Reactions Severity [...] 1 tablet 90 tablet 3 02/07/2019 Active 65-Thll-OK-DSS by mouth 90-1-50 mg per daily. tabletIndications: Secondary oligomenorrhea, Patient desires metoprolol succinate Take 0.5 45 tablet 0 02/09/2019 Active XL 25 mg 24 hr tablets by tablet mouth daily. diphenhydrAMINE Take 50 mg by 0 Active (BENADRYL) 25 mg mouth. capsuleIndications: pt stated that she takes it every 8hrs PRN, for allergy PNV Take 1 tablet 30 tablet 11 03/05/2019 Active Comb.Ae27-Vurn,Carb- by mouth FA-DSS 29-1-50 mg daily. 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 04/08/2018 Hypogammaglobulinemia 01/05/2018 Lumbosacral spondylosis without myelopathy 08/09/2017 Overview: Added automatically from request for surgery [id number] Tachycardia 02/04/2017 History of DVT (deep vein [...] Headache 03/07/2014 06/06/2019 Overview: ICD10 Diagnosis Term Wind Site Manager Utility Seizure 02/18/2014 01/24/2018 documented as [...] Visit Family Medicine Addi Staley MD [address] [facility] [address] [place], [place] [phone] 08/16/2019 Office Visit Cardiology Anil Stewart MD [address] [place] [phone] 08/23/2019 Office Visit Rheumatology Neville Pritchett MD [address] [place] [phone] 08/27/2019 Office Visit Gastroenterology Srikanth Hall MD [address] [place] [address] [phone] 09/11/2019 Office Visit Pulmonary Disease Eli Miller MD [address] [place] [phone] 09/17/2019 Office Visit Orthopedic Surgery Wu Marcelino MD [address] [place] [address] [phone] Health Maintenance Due Date Last Done Comments [...] of this encounter Implants Implanted Type Area Laundry Bag Punch Operator Device Shelf Model / Identifier Expiration Serial / Date Lot [place], Arthrex Fastak Auture #Ol-7839-832ug - [id number] ANCHOR Right: Arthrex Inc 08/14/2018 [id number] / Implanted: Qty: 1 on 04/09/2014 by Nik Alfredo MD at [facility] [place] [facility] Feet / [id number] [place], Arthrex Fastak Auture #Yf-[id number] - [id number] ANCHOR Left: Arthrex Inc 11/13/2018 [id number] / Implanted: Qty: 2 on 03/18/2015 by Nik Alfredo MD at [facility] [place] [facility] Foot / [id number] 22fr Alia Gastric-Jejunal Tube Peg [facility] 08/14/2019 ALIA / Implanted: Qty: 1 on 06/08/[address] [facility] 0250- 22 / [id number] Screw, Small Bone Innovations 6.0mm X50mm Fusifix Triple Thrd #955-4007 - [id number] SCREW Right: Small Bone 955-4007 / Implanted: Qty: 1 on 04/09/2014 by Nik Alfredo MD at [facility] [place] [facility] Feet Innovations / Screw, Small Bone Innovations 6.0mm X60mm Fusifix Triple Thrd #955-4009 - [id number] SCREW Right: Small Bone 955-4009 / Implanted: Qty: 1 on 04/09/2014 by Nik Alfredo MD at [facility] AT [facility] Feet Innovations / Screw, Small Bone Innovations 6.0mm X40mm Fusifix Triple Thrd #955-4005 - [id number] SCREW Left: Small Bone 955-4005 / Implanted: Qty: 2 on 03/18/2015 by Nik Alfredo MD at [facility] AT [facility] Foot Innovations / AUTO #1 LOAD #5 [id number] K-Wire, Small Bone Innovations 1.5 X 150mm #960-0000 - [id number] WIRE Small Bone 960-0000 / Implanted: Qty: 2 on 04/09/2014 at [facility] AT [facility] Innovations / K-Wire, Small Bone Innovations 1.5 X 150mm #960-0000 - [id number] WIRE Left: Small Bone 960-0000 / Implanted: Qty: 3 on 03/18/2015 at [facility] AT [facility] Foot Innovations / AUTO #1 LOAD #5 [id number] documented as of this encounter Results Not on filedocumented in this encounter Insurance Payer Benefit Plan / Subscriber ID Effective Dates Phone Address Type Group [facility] xxxxxxxxx 2015-Present Medicaid COMM PLAN - PLUS MANAGED MEDICAID documented as of this encounter Advance Directives Type Date Recorded Patient Cosmetic Dentist Explanation Advance Directives and Living 01/21/2016 9:55 AM Will Power of Sales Exec 01/21/2016 9:55 AM
--- OUTSIDE RECORDS SUMMARY | 2019-10-07 11:44 | XMS REPORT | Summary of Care ---
:1990 Author Organization [facility] - Health Address [address] [place] [address] Care Team Providers Name Role Phone Sarahidonita Wu Haas Unavailable Unavailable Joe Regalado MD Unavailable Arina Escudero AUD Unavailable Unavailable Romero Zamarripa MD Insurance Hmo Romero Zamarripa MD Primary Care Provider Encounter Details Date Type Department Care Team Description 07/17/2019 Orders Only [facility] Doctor Unassigned, No [address] [facility] [place] [address] [address] [place] [phone] Allergies Active Allergy Reactions Severity Noted Date [...] as of this encounter (statuses as of 07/17/2019) Medications Medication Sig Dispensed Refills Start Date [...] tablet by 90 tablet 3 02/07/2019 Active 69-Zuae-FR-DSS 90-1-50 mouth daily. mg per tabletIndications: Secondary oligomenorrhea, Patient desires metoprolol succinate XL Take 0.5 tablets 45 tablet 0 02/09/2019 Active 25 mg 24 hr tablet by mouth daily. diphenhydrAMINE Take 50 mg by 0 Active (BENADRYL) 25 mg mouth. capsuleIndications: pt stated that she takes it every 8hrs PRN, for allergy PNV Take 1 tablet by 30 tablet 11 03/05/2019 Active Comb.Gr94-Zghh,Carb-FA- mouth daily. 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 04/08/2018 Hypogammaglobulinemia 01/05/2018 Lumbosacral spondylosis without myelopathy 08/09/2017 Overview: Added automatically from request for surgery [id number] Tachycardia 02/04/2017 History of DVT (deep vein [...] as of this encounter (statuses as of 07/17/2019) Resolved Problems Problem Noted Date Resolved Date [...] Headache 03/07/2014 06/06/2019 Overview: ICD10 Diagnosis Term Delivery Stock Clerk Utility Seizure 02/18/2014 01/24/2018 documented as of this encounter (statuses as of 07/17/2019) Immunizations Name Administration Dates Next Due Influenza [...] Office Visit Family Medicine Addi Staley MD [address] [place] [address] [phone] 08/16/2019 Office Visit Cardiology Anil Stewart MD [address] [place] [phone] 08/23/2019 Office Visit Rheumatology Neville Pritchett MD [address] [place] [phone] 08/27/2019 Office Visit Gastroenterology Srikanth Hall MD [address] [place] [address] 09/11/2019 Office Visit Pulmonary Disease Eli Miller MD [address] [place] [phone] 09/17/2019 Office Visit Orthopedic Surgery Wu Marcelino MD [address] [place] [address] [phone] Health Maintenance Due Date Last Done Comments [...] of this encounter Implants Implanted Type Area Sand Mixer Machine Device Shelf Model / Identifier Expiration Serial / Date Lot [place], Arthrex Fastak Auture #Qj-5824-329ax - [id number] ANCHOR Right: Arthrex Inc 08/14/2018 [id number] / Implanted: Qty: 1 on 04/09/2014 by Nik Alfredo MD at [facility] AT [facility] / [id number] [place], Arthrex Fastak Auture #Vu-9405-742nr - [id number] ANCHOR Left: Arthrex Inc 11/13/2018 [id number] / Implanted: Qty: 2 on 03/18/2015 by Nik Alfredo MD at [facility] AT [facility] / [id number] 22fr Alia Gastric-Jejunal Tube Peg [facility] 08/14/2019 ALIA / Implanted: Qty: 1 on 06/08/2018 at [facility] 0250- 22 / [id number] Screw, Small Bone Innovations 6.0mm X50mm Fusifix Triple Thrd #955-4007 - [id number] SCREW Right: Small Bone 955-4007 / Implanted: Qty: 1 on 04/09/2014 by Nik Alfredo MD at [facility] AT [facility] Innovations / Screw, Small Bone Innovations 6.0mm X60mm Fusifix Triple Thrd #955-4009 - [id number] SCREW Right: Small Bone 955-4009 / Implanted: Qty: 1 on 04/09/2014 by Nik Alfredo MD at [facility] AT [facility] Innovations / Screw, Small Bone Innovations 6.0mm X40mm Fusifix Triple Thrd #955-4005 - [id number] SCREW Left: Small Bone 955-4005 / Implanted: Qty: 2 on 03/18/2015 by Nik Alfredo MD at [facility] AT [facility] Innovations / AUTO #1 LOAD #5 [id number] K-Wire, Small Bone Innovations 1.5 X 150mm #960-0000 - [id number] WIRE Small Bone 960-0000 / Implanted: Qty: 2 on 04/09/2014 at [facility] SPECIAL[facility] Innovations / K-Wire, Small Bone Innovations 1.5 X 150mm #960-0000 - [id number] WIRE Left: Small Bone 960-0000 / Implanted: Qty: 3 on 03/18/2015 at [facility] Foot Innovations / AUTO #1 LOAD #5 [id number] documented as of this encounter Procedures Procedure Name Priority Date/Time Associated Diagnosis Comments EXTERNAL PROVIDER Routine 07/17/2019 12:01 AM CDT RECORDS documented in this encounter Results Not on filedocumented in this encounter Insurance Payer Benefit Plan / Subscriber ID Effective Dates Phone Address Type Group [facility] xxxxxxxxx 2015-Present Medicaid COMM PLAN - PLUS MANAGED MEDICAID documented as of this encounter Advance Directives Type Date Recorded Patient Machine Maintenance Technician Explanation Advance Directives and Living 01/21/2016 9:55 AM Will Power of Proteomics Scientist 01/21/2016 9:55 AM
--- OUTSIDE RECORDS SUMMARY | 2019-10-07 11:44 | XMS REPORT | Summary of Care ---
:[address] [facility] Address [address] [place] [address] Care Team Providers Name Role Phone Sarahidonita uW Haas Unavailable Unavailable Joe Regalado MD Unavailable Arina Escudero AUD Unavailable Unavailable Romero Zamarripa MD Insurance Hmo Romero Zamarripa MD Primary Care Provider Reason for Visit Reason Comments Refill Request Ondansetron 4 mg/5 mL solution // Pharmacy Request Encounter Details Date Type Department Care Team Description 07/17/2019 Telephone [facility] Srikanth Hall Refill Request GASTROENTEROLOGY -Betty Sparks MD (Ondansetron 4 mg/[address] solution // Pharmacy [address] [place], [place] Request) [address] [address] [place] [address] Allergies Active Allergy Reactions Severity Noted Date [...] as of this encounter (statuses as of 07/18/2019) Medications Medication Sig Dispensed Refills Start Date [...] 1 tablet 90 tablet 3 02/07/2019 Active 32-Wqhd-YB-DSS by mouth 90-1-50 mg per daily. tabletIndications: Secondary oligomenorrhea, Patient desires metoprolol succinate Take 0.5 45 tablet 0 02/09/2019 Active XL 25 mg 24 hr tablets by tablet mouth daily. diphenhydrAMINE Take 50 mg by 0 Active (BENADRYL) 25 mg mouth. capsuleIndications: pt stated that she takes it every 8hrs PRN, for allergy PNV Take 1 tablet 30 tablet 11 03/05/2019 Active Comb.Xt81-Rphq,Carb- by mouth FA-DSS 29-1-50 mg daily. TbECIndications: [...] mouth. promethazine 6.25 Take 20 mL by 410 mL 2 07/18/2019 Active mg/5 mL mouth every 6 solutionIndications: (six) hours as Nausea and vomiting, needed for intractability of Nausea and vomiting not Vomiting specified, (N/V). unspecified vomiting type promethazine 6.25 Take 20 mL by 2838 mL 2 07/03/2019 Discontinued mg/5 mL mouth every 6 9 solutionIndications: (six) hours as Nausea and vomiting, needed for intractability of Nausea and vomiting not Vomiting specified, (N/V). 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 04/08/2018 Hypogammaglobulinemia 01/05/2018 Lumbosacral spondylosis without myelopathy 08/09/2017 Overview: Added automatically from request for surgery [id number] Tachycardia 02/04/2017 History of DVT (deep vein [...] as of this encounter (statuses as of 07/18/2019) Resolved Problems Problem Noted Date Resolved Date [...] Headache 03/07/2014 06/06/2019 Overview: ICD10 Diagnosis Term Compacting Machine Operator/Tender Utility Seizure 02/18/2014 01/24/2018 documented as of this encounter (statuses as of 07/18/2019) Immunizations Name Administration Dates Next Due Influenza [...] Visit Family Medicine Addi Staley MD [address] [facility] [address] [place], [place] [phone] 08/16/2019 Office Visit Cardiology Anil Stewart MD [address] [place] [address] [phone] 08/23/2019 Office Visit Rheumatology Neville Pritchett MD [address] [place] [address] [phone] 08/27/2019 Office Visit Gastroenterology GoSrikanth carranza MD [address] [place] [address] [phone] 09/11/2019 Office Visit Pulmonary Disease Eli Miller MD [address] [place] [phone] 09/17/2019 Office Visit Orthopedic Surgery Wu Marcelino MD [address] [place], [place] [phone] Health Maintenance Due Date Last Done Comments [...] of this encounter Implants Implanted Type Area Services Coordinator Device Shelf Model / Identifier Expiration Serial / Date Lot [place], Arthrex Fastak Auture #Fx-0086-947yn - [id number] ANCHOR Right: Arthrex Inc 08/14/2018 [id number] / Implanted: Qty: 1 on 04/09/2014 by Nik Alfredo MD at [facility] AT [facility] / [id number] [place], Arthrex Fastak Auture #Kh-4267-708jo - [id number] ANCHOR Left: Arthrex Inc 11/13/2018 [id number] / Implanted: Qty: 2 on 03/18/2015 by Nik Alfredo MD at [facility] AT [facility] / [id number] 22fr Alia Gastric-Jejunal Tube Peg [facility] 08/14/2019 ALIA / Implanted: Qty: 1 on 06/08/2018 at [facility] 0250- 22 / [id number] Screw, Small Bone Innovations 6.0mm X50mm Fusifix Triple Thrd #955-4007 - [id number] SCREW Right: Small Bone 955-4007 / Implanted: Qty: 1 on 04/09/2014 by Nik Alfredo MD at [facility] AT [facility] Innovations / Screw, Small Bone Innovations 6.0mm X60mm Fusifix Triple Thrd #955-4009 - [id number] SCREW Right: Small Bone [id number] / Implanted: Qty: 1 on 04/09/2014 by Nik Alfredo MD at [facility] AT [facility] Feet Innovations / Screw, Small Bone Innovations 6.0mm X40mm Fusifix Triple Thrd #955-4005 - [id number] SCREW Left: Small Bone 955-4005 / Implanted: Qty: 2 on 03/18/2015 by Nik Alfredo MD at [facility] AT [facility] Foot Innovations / AUTO #1 LOAD #5 [id number] K-Wire, Small Bone Innovations 1.5 X 150mm #960-0000 - [id number] WIRE Small Bone 960-0000 / Implanted: Qty: 2 on 04/09/[address] [facility] AT [facility] / K-Wire, Small Bone Innovations 1.5 X 150mm #960-0000 - [id number] WIRE Left: Small Bone 960-0000 / Implanted: Qty: 3 on 03/18/[address] [facility] AT [facility] Foot Innovations / AUTO #1 LOAD #5 [id number] documented as of this encounter Results Not on filedocumented in this encounter Visit Diagnoses Diagnosis Nausea and vomiting, intractability of vomiting not specified, unspecified vomiting type documented in this encounter Insurance Payer Benefit Plan / Subscriber ID Effective Dates Phone Address Type Group [facility] xxxxxxxxx 2015-Present Medicaid COMM PLAN - PLUS MANAGED MEDICAID documented as of this encounter Advance Directives Type Date Recorded Patient Support Team Member Explanation Advance Directives and Living 01/21/2016 9:55 AM Will Power of Rotary Shear Operator 01/21/2016 9:55 AM
--- OUTSIDE RECORDS SUMMARY | 2019-10-07 11:45 | XMS REPORT | Summary of Care ---
:1990 Author Organization [facility] Address [address] [place] [address] Care Team Providers Name Role Phone Sarahidonita Wu Haas Unavailable Unavailable Joe Regalado MD Unavailable Arina Escudero AUD Unavailable Unavailable Romero Zamarripa MD Insurance Hmo Romero Zamarripa MD Primary Care Provider Reason for Visit Reason Comments Refill Request Ondansetron 4 mg/5 mL solution // Pharmacy Request Encounter Details Date Type Department Care Team Description 07/17/2019 Telephone [facility] Srikanth Hall Refill Request GASTROENTEROLOGY -Betty Sparks MD (Ondansetron 4 mg/[address] solution // Pharmacy [address] [place], [place] Request) [address] [address] [place] [address] Allergies Active Allergy Reactions Severity Noted Date [...] 07/18/2019) Medications Medication Sig Dispensed Refills Start End [...] 1 tablet by 90 tablet 3 Active 39-Fkbd-YY-DSS mouth daily. 9 90-1-50 mg per tabletIndications: Secondary oligomenorrhea, Patient desires metoprolol succinate Take 0.5 tablets 45 tablet 0 Active XL 25 mg 24 hr by mouth daily. 9 tablet diphenhydrAMINE Take 50 mg by 0 Active (BENADRYL) 25 mg mouth. capsuleIndications: pt stated that she takes it every 8hrs PRN, for allergy PNV Take 1 tablet by 30 tablet 11 Active Comb.Bt48-Fbap,Carb- mouth daily. 9 FA-DSS 29-1-50 mg TbECIndications: [...] VIA PEG 9 ELECTROLYTE) solutionIndications: Nonepileptic episode Catheter 12 Fr Use as directed 60 Each 2 Active MiscIndications: 9 Urinary retention venlafaxine XR 75 mg Take 1 capsule 30 capsule 0 Active 24 hr by mouth daily 9 capsuleIndications: with breakfast. Migraine without aura and with status migrainosus, not intractable mirabegron Take 1 tablet by 90 tablet 3 Active (MYRBETRIQ) 50 mg mouth daily. 9 tabletIndications: Bladder spasms venlafaxine 37.5 mg Take 1 tablet by 30 tablet 0 Active tabletIndications: mouth 3 (three) 9 Bipolar 1 disorder times daily. oxybutynin chloride Take 1 tablet by 30 tablet 0 Active 5 mg mouth daily. 9 tabletIndications: Urinary dysfunction TRAZODONE 50 mg TAKE 1 TABLET BY 30 tablet 0 Active tabletIndications: MOUTH EVERYDAY 9 JOAN (obstructive AT BEDTIME sleep apnea) amoxicillin-clavulan Take 1 tablet by 0 Active ate 875-125 mg per mouth 2 (two) 9 tablet times daily. methocarbamol 750 mg Take 750 mg by 0 Active tablet mouth. metoprolol tartrate Take 0.5 tablets 0 Active 25 mg tablet by mouth. 9 mometasone 50 Use 2 Sprays in 0 Active mcg/actuation nasal each nostril. spray omeprazole 40 mg Take 1 capsule 0 Active capsule by mouth. 9 pantoprazole 40 mg Take 40 mg by 0 Active EC tablet mouth. pregabalin (LYRICA) Take 1 capsule 0 Active 100 mg capsule by mouth. 9 SELECT-OB + DHA 29 Take 1 tablet by 11 Active mg iron-1 mg -250 mg mouth. 9 combo pack zolpidem 5 mg tablet Take 1 tablet by 0 Active mouth. 9 promethazine 6.25 Take 20 mL by 410 mL 2 Active mg/5 mL mouth every 6 9 solutionIndications: (six) hours as Nausea and vomiting, needed for intractability of Nausea and vomiting not Vomiting (N/V). specified, unspecified vomiting type ondansetron 4 mg/5 Take 5 mL by 410 mL 2 Active mL mouth 2 (two) 9 solutionIndications: times daily as Nausea and vomiting, needed for N/V intractability of unresponsive to vomiting not Promethazine. specified, unspecified vomiting type ondansetron 4 mg/5 Take 5 mL by 2 07/18/20 Discontinued mL solution mouth. 9 19 promethazine 6.25 Take 20 mL by 2838 mL 2 07/18/20 Discontinued mg/5 mL mouth every 6 9 19 solutionIndications: (six) hours as Nausea and vomiting, needed for intractability of Nausea and vomiting not Vomiting (N/V). 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 04/08/2018 Hypogammaglobulinemia 01/05/2018 Lumbosacral spondylosis without myelopathy 08/09/2017 Overview: Added automatically from request for surgery [id number] Tachycardia 02/04/2017 History of DVT (deep vein [...] Headache 03/07/2014 06/06/2019 Overview: ICD10 Diagnosis Term Attorney Utility Seizure 02/18/2014 01/24/2018 documented as of [...] Visit Family Medicine Addi Staley MD [address] [facility] [address] [place], [place] [address] 08/16/2019 Office Visit Cardiology Anil Stewart MD [address] [place] [phone] 08/23/2019 Office Visit Rheumatology Neville Pritchett MD [address] [place] [phone] 08/27/2019 Office Visit Gastroenterology Srikanth Hall MD [address] [place] [address] [phone] 09/11/2019 Office Visit Pulmonary Disease Eli Miller MD [address] [place] [address] [phone] 09/17/2019 Office Visit Orthopedic Surgery Wu Marcelino MD [address] [place] [address] [phone] Health Maintenance Due Date Last Done Comments [...] of this encounter Implants Implanted Type Area Mobile Engineer Device Shelf Model / Identifier Expiration Serial / Date Lot [place], Arthrex Fastak Auture #[id number] - [id number] ANCHOR Right: Ar[employer]rex Inc 08/14/2018 [id number] / Implanted: Qty: 1 on 04/09/2014 by Nik Alfredo MD at [facility] Feet / [id number] [place], Arthrex Fastak Auture #[id number] - [id number] ANCHOR Left: Ar[employer]rex Inc 11/13/2018 [id number] / Implanted: Qty: 2 on 03/18/2015 by Nik Alfredo MD at [facility] Foot / [id number] 22fr Alia Gastric-Jejunal Tube [facility] 08/14/2019 ALIA / Implanted: Qty: 1 on 06/08/2018 at [facility] 0250- 22 / [id number] Screw, Small Bone Innovations 6.0mm X50mm Fusifix Triple Thrd #955-4007 - [id number] SCREW Right: Small Bone 955-4007 / Implanted: Qty: 1 on 04/09/2014 by Nik Alfredo MD at [facility] [place] [facility] [employer]vita Innovations / Screw, Small Bone Innovations 6.0mm X60mm Fusifix Triple Thrd #955-4009 - [id number] SCREW Right: Small Bone 955-4009 / Implanted: Qty: 1 on 04/09/2014 by Nik Alfredo MD at [facility] [employer] Innov[employer] / Screw, Small Bone Innovations 6.0mm X40mm Fusifix Triple Thrd #955-4005 - [id number] SCREW Left: Small Bone 955-4005 / Implanted: Qty: 2 on 03/18/2015 by Nik Alfredo MD at [facility] AT [facility] Innovations / AUTO #1 LOAD #5 [id number] K-Wire, Small Bone Innovations 1.5 X 150mm #960-0000 - [id number] WIRE Small Bone 960-0000 / Implanted: Qty: 2 on 04/09/2014 at [facility] [employer] / K-Wire, Small Bone Innovations 1.5 X 150mm #960-0000 - [id number] WIRE Left: Small Bone 960-0000 / Implanted: Qty: 3 on 03/18/2015 at [facility] AT [facility] Innovations / AUTO #1 LOAD #5 [id number] documented as of this encounter Results Not on filedocumented in this encounter Visit Diagnoses Diagnosis Nausea and vomiting, intractability of vomiting not specified, unspecified vomiting type documented in this encounter Insurance Payer Benefit Plan / Subscriber ID Effective Dates Phone Address Type Group [facility] xxxxxxxxx 2015-Present Medicaid COMM PLAN - PLUS MANAGED MEDICAID documented as of this encounter Advance Directives Type Date Recorded Patient Accounting Reconciliation Clerk Explanation Advance Directives and Living 01/21/2016 9:55 AM Will Power of Television Specialist 01/21/2016 9:55 AM
--- OUTSIDE RECORDS SUMMARY | 2019-10-07 11:45 | XMS REPORT | Summary of Care ---
:1990 Author Organization [facility] Address [address] [place] [address] Care Team Providers Name Role Phone Sarahidonita Wu Haas Unavailable Unavailable Joe Regalado MD Unavailable Arina Escudero AUD Unavailable Unavailable Romero Zamarripa MD Insurance Hmo Romero Zamarripa MD Primary Care Provider Reason for Visit Reason Comments Refill Request Ondansetron 4 mg/5 mL solution // Pharmacy Request Encounter Details Date Type Department Care Team Description 07/17/2019 Telephone [facility] Srikanth Hall Refill Request GASTROENTEROLOGY -Betty Sparks MD (Ondansetron 4 mg/[address] solution // Pharmacy [address] [place], [place] Request) [address] [address] [place] [address] Allergies Active Allergy Reactions Severity Noted Date [...] 1 tablet 90 tablet 3 02/07/2019 Active 92-Glap-LU-DSS by mouth 90-1-50 mg per daily. tabletIndications: Secondary oligomenorrhea, Patient desires metoprolol succinate Take 0.5 45 tablet 0 02/09/2019 Active XL 25 mg 24 hr tablets by tablet mouth daily. diphenhydrAMINE Take 50 mg by 0 Active (BENADRYL) 25 mg mouth. capsuleIndications: pt stated that she takes it every 8hrs PRN, for allergy PNV Take 1 tablet 30 tablet 11 03/05/2019 Active Comb.Cs36-Nnsu,Carb- by mouth FA-DSS 29-1-50 mg daily. 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 Seizure 02/18/2014 01/24/2018 documented as of [...] MD [address] [facility] [address] [place], [place] [phone] 08/16/2019 Office Visit Cardiology Anil Stewart MD [address] [place] [phone] 08/23/2019 Office Visit Rheumatology Neville Pritchett MD [address] [place] [phone] 08/27/2019 Office Visit Gastroenterology GoSrikanth carranza MD [address] [place] [address] [phone] 09/11/2019 Office Visit Pulmonary Disease Eli Miller MD [address] [place] [phone] 09/17/2019 Office Visit Orthopedic Surgery Wu Marcelino MD [address] [place], [place] 540[address] Health Maintenance Due Date Last Done Comments [...] of this encounter Implants Implanted Type Area Retail Store Manager Device Shelf Model / Identifier Expiration Serial / Date Lot [place], Arthrex Fastak Auture #[id number] - [id number] ANCHOR Right: Arthrex Inc 08/14/2018 [id number] / Implanted: Qty: 1 on 04/09/2014 by Nik Alfredo MD at [facility] AT [facility] / [id number] [place], Arthrex Fastak Auture #[id number] - [id number] ANCHOR Left: Ar[employer]rex [employer] 11/13/2018 [id number] / Implanted: Qty: 2 on 03/18/2015 by Nik Alfredo MD at [facility] AT [facility] / [id number] 22fr Alia Gastric-Jejunal Tube Peg [facility] 08/14/2019 ALIA / Implanted: Qty: 1 on 06/08/2018 at [facility] 0250- 22 / [id number] Screw, Small Bone Innovations 6.0mm X50mm Fusifix Triple Thrd #955-4007 - [id number] SCREW Right: Small Bone 955-4007 / Implanted: Qty: 1 on 04/09/2014 by Nik Alfredo MD at [facility] AT [facility] Innovations / Screw, Small Bone Innovations 6.0mm X60mm Fusifix Triple Thrd #955-4009 - [id number] SCREW Right: Small Bone [id number] / Implanted: Qty: 1 on 04/09/2014 by Nik Alfredo MD at [facility] AT [facility] Feet Innovations / Screw, Small Bone Innovations 6.0mm X40mm Fusifix Triple Thrd #955-4005 - [id number] SCREW Left: Small Bone 955-4005 / Implanted: Qty: 2 on 03/18/2015 by Nik Alfredo MD at [facility] AT [facility] Foot Innovations / AUTO #1 LOAD #5 [id number] K-Wire, Small Bone Innovations 1.5 X 150mm #960-0000 - [id number] WIRE Small Bone 960-0000 / Implanted: Qty: 2 on 04/09/2014 at [facility] AT [facility] / K-Wire, Small Bone Innovations 1.5 X 150mm #960-0000 - [id number] WIRE Left: Small Bone 960-0000 / Implanted: Qty: 3 on 03/18/2015 at [facility] AT [facility] Foot Innovations / AUTO #1 LOAD #5 [id number] documented as of this encounter Results Not on filedocumented in this encounter Visit Diagnoses Diagnosis Nausea and vomiting, intractability of vomiting not specified, unspecified vomiting type documented in this encounter Insurance Payer Benefit Plan / Subscriber ID Effective Dates Phone Address Type Group [facility] xxxxxxxxx 2015-Present Medicaid COMM PLAN - PLUS MANAGED MEDICAID documented as of this encounter Advance Directives Type Date Recorded Patient Textbook Associate Explanation Advance Directives and Living 01/21/2016 9:55 AM Will Power of Manager Community Outreach 01/21/2016 9:55 AM
--- OUTSIDE RECORDS SUMMARY | 2019-10-07 11:46 | XMS REPORT | Summary of Care ---
:1990 Author Organization [facility] Address [address] [place] [address] Care Team Providers Name Role Phone Sarahidonita Wu Haas Unavailable Unavailable Joe Regalado MD Unavailable Arina Escudero AUD Unavailable Unavailable Romero Zamarripa MD Insurance Hmo Romero Zamarripa MD Primary Care Provider Reason for Visit Reason Comments Refill Request Ondansetron 4 mg/5 mL solution // Pharmacy Request Encounter Details Date Type Department Care Team Description 07/17/2019 Telephone [facility] Srikanth Hall Refill Request GASTROENTEROLOGY -Betty Sparks MD (Ondansetron 4 mg/[address] solution // Pharmacy [address] [place], [place] Request) [address] [address] [place] [phone] Allergies Active Allergy Reactions Severity Noted Date [...] as of this encounter (statuses as of 07/19/2019) Medications Medication Sig Dispensed Refills Start End [...] 1 tablet by 90 tablet 3 Active 58-Wxkp-KI-DSS mouth daily. 9 90-1-50 mg per tabletIndications: Secondary oligomenorrhea, Patient desires metoprolol succinate Take 0.5 tablets 45 tablet 0 Active XL 25 mg 24 hr by mouth daily. 9 tablet diphenhydrAMINE Take 50 mg by 0 Active (BENADRYL) 25 mg mouth. capsuleIndications: pt stated that she takes it every 8hrs PRN, for allergy PNV Take 1 tablet by 30 tablet 11 Active Comb.Mc03-Glfc,Carb- mouth daily. 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 04/08/2018 Hypogammaglobulinemia 01/05/2018 Lumbosacral spondylosis without myelopathy 08/09/2017 Overview: Added automatically from request for surgery [id number] Tachycardia 02/04/2017 History of DVT (deep vein [...] as of this encounter (statuses as of 07/19/2019) Resolved Problems Problem Noted Date Resolved Date [...] Headache 03/07/2014 06/06/2019 Overview: ICD10 Diagnosis Term 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 Utility Seizure 02/18/2014 01/24/2018 documented as of this encounter (statuses as of 07/19/2019) Immunizations Name Administration Dates Next Due Influenza [...] Visit Family Medicine Addi Staley MD [address] [facility] [address] [place], [place] [address] 08/16/2019 Office Visit Cardiology Anil Stewart MD [address] [place] [phone] 08/23/2019 Office Visit Rheumatology Neville Pritchett MD [address] [place] [phone] 08/27/2019 Office Visit Gastroenterology Srikanth Hall MD [address] [place] [address] [phone] 09/11/2019 Office Visit Pulmonary Disease Eli Miller MD [address] [place] [address] [phone] 09/17/2019 Office Visit Orthopedic Surgery Wu Marcelino MD [address] [place] [address] [phone] Health Maintenance Due Date Last Done Comments [...] of this encounter Implants Implanted Type Area Marketing Intern Device Shelf Model / Identifier Expiration Serial / Date Lot [place], Arthrex Fastak Auture #[id number] - [id number] ANCHOR Right: Arthrex Inc 08/14/2018 [id number] / Implanted: Qty: 1 on 04/09/2014 by Nik Alfredo MD at [facility] Feet / [id number] [place], Arthrex Fastak Auture #[id number] - [id number] ANCHOR Left: Ar[employer]rex Inc 11/13/2018 [id number] / Implanted: Qty: 2 on 03/18/2015 by Nik Alfredo MD at [facility] Foot / [id number] 22fr Alia Gastric-Jejunal Tube Peg [facility] 08/14/2019 ALIA / Implanted: Qty: 1 on 06/08/2018 at [facility] 0250- 22 / [id number] Screw, Small Bone Innovations 6.0mm X50mm Fusifix Triple Thrd #955-4007 - [id number] SCREW Right: Small Bone 955-4007 / Implanted: Qty: 1 on 04/09/2014 by Nik Alfredo MD at [facility] [place] AT [facility] [employer] Innovations / Screw, Small Bone Innovations 6.0mm X60mm Fusifix Triple Thrd #955-4009 - [id number] SCREW Right: Small Bone 955-4009 / Implanted: Qty: 1 on 04/09/2014 by Nik Alfredo MD at [facility] AT [facility] [employer] Innovations / Screw, Small Bone Innovations 6.0mm X40mm Fusifix Triple Thrd #955-4005 - [id number] SCREW Left: Small Bone 955-4005 / Implanted: Qty: 2 on 03/18/2015 by Nik Alfredo MD at [facility] AT [facility] Innovations / AUTO #1 LOAD #5 [id number] K-Wire, Small Bone Innovations 1.5 X 150mm #960-0000 - [id number] WIRE Small Bone 960-0000 / Implanted: Qty: 2 on 04/09/2014 at [facility] AT [facility] [employer] / K-Wire, Small Bone Innovations 1.5 X 150mm #960-0000 - [id number] WIRE Left: Small Bone 960-0000 / Implanted: Qty: 3 on 03/18/2015 at [facility] AT [facility] Innovations / AUTO #1 LOAD #5 [id number] documented as of this encounter Results Not on filedocumented in this encounter Visit Diagnoses Diagnosis Nausea and vomiting, intractability of vomiting not specified, unspecified vomiting type documented in this encounter Insurance Payer Benefit Plan / Subscriber ID Effective Dates Phone Address Type Group [facility] xxxxxxxxx 2015-Present Medicaid COMM PLAN - PLUS MANAGED MEDICAID documented as of this encounter Advance Directives Type Date Recorded Patient 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
--- OUTSIDE RECORDS SUMMARY | 2019-10-07 11:47 | XMS REPORT | Summary of Care ---
:1990 Author Organization [facility] - [address] [address] Care Team Providers Name Role Phone Sarahidonita Wu Haas Unavailable Unavailable Joe Regalado MD Unavailable Arina Escudero AUD Unavailable Unavailable Romero Zamarripa MD Insurance Hmo Romero Zamarripa MD Primary Care Provider Reason for Visit Reason Comments Heart Problem heart rate medication question Encounter Details Date Type Department Care Team Description 07/22/2019 Nurse Triage [facility] Jeannette Long RN Heart Problem (heart [address] [place] [address] rate medication [address] question) [place], [place] [phone] Allergies Active Allergy Reactions Severity Noted Date [...] as of this encounter (statuses as of 07/22/2019) Medications Medication Sig Dispensed Refills Start Date [...] tablet by 90 tablet 3 02/07/2019 Active 19-Aiwq-ML-DSS mouth daily. 90-1-50 mg per tabletIndications: Secondary oligomenorrhea, Patient desires metoprolol succinate Take 0.5 tablets 45 tablet 0 02/09/2019 Active XL 25 mg 24 hr tablet by mouth daily. diphenhydrAMINE Take 50 mg by 0 Active (BENADRYL) 25 mg mouth. capsuleIndications: pt stated that she takes it every 8hrs PRN, for allergy PNV Take 1 tablet by 30 tablet 11 03/05/2019 Active Comb.Hr16-Wntv,Carb-F mouth daily. A-DSS 29-1-50 mg TbECIndications: Encounter [...] Upper respiratory infection with cough and congestion butalbital-acetaminop Take 1 tablet by 20 tablet [...] venlafaxine XR 75 mg Take 1 capsule by 30 capsule 0 06/06/2019 Active 24 hr mouth daily with capsuleIndications: breakfast. Migraine without aura and with status migrainosus, not intractable mirabegron Take 1 tablet by 90 tablet 3 06/06/2019 Active (MYRBETRIQ) 50 mg mouth daily. tabletIndications: Bladder spasms venlafaxine 37.5 mg Take 1 tablet by 30 tablet 0 06/14/2019 Active tabletIndications: mouth 3 (three) Bipolar 1 disorder times daily. oxybutynin chloride 5 Take 1 tablet by 30 tablet 0 06/21/2019 Active mg tabletIndications: mouth daily. Urinary dysfunction TRAZODONE 50 mg TAKE 1 TABLET BY 30 tablet 0 06/27/2019 Active tabletIndications: MOUTH EVERYDAY AT JOAN (obstructive BEDTIME sleep apnea) amoxicillin-clavulana Take 1 tablet by 0 04/11/2019 Active te 875-125 mg per mouth 2 (two) tablet times daily. methocarbamol 750 mg Take 750 mg by 0 Active tablet mouth. metoprolol tartrate Take 0.5 tablets 0 05/14/2019 Active 25 mg tablet by mouth. mometasone 50 Use 2 Sprays in 0 Active mcg/actuation nasal each nostril. spray omeprazole 40 mg Take 1 capsule by 0 05/02/2019 Active capsule mouth. pantoprazole 40 mg EC Take 40 mg by 0 Active tablet mouth. pregabalin (LYRICA) Take 1 capsule by 0 06/25/2019 Active 100 mg capsule mouth. SELECT-OB + DHA 29 mg Take 1 tablet by 11 06/23/2019 Active iron-1 mg -250 mg mouth. combo pack zolpidem 5 mg tablet Take 1 tablet by 0 05/04/2019 Active mouth. promethazine 6.25 Take 20 mL by 410 mL 2 07/18/2019 Active mg/5 mL mouth every 6 solutionIndications: (six) hours as Nausea and vomiting, needed for Nausea intractability of and Vomiting vomiting not (N/V). specified, unspecified vomiting type ondansetron 4 mg/5 mL Take 5 mL by mouth 410 mL 2 07/18/2019 Active solutionIndications: 2 (two) times Nausea and vomiting, daily as needed intractability of for N/V vomiting not unresponsive to specified, Promethazine. 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 04/08/2018 Hypogammaglobulinemia 01/05/2018 Lumbosacral spondylosis without myelopathy 08/09/2017 Overview: Added automatically from request for surgery [id number] Tachycardia 02/04/2017 History of DVT (deep vein [...] as of this encounter (statuses as of 07/22/2019) Resolved Problems Problem Noted Date Resolved Date [...] Headache 03/07/2014 06/06/2019 Overview: ICD10 Diagnosis Term 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 Utility Seizure 02/18/2014 01/24/2018 documented as of this encounter (statuses as of 07/22/2019) Immunizations Name Administration Dates Next Due Influenza [...] Family Medicine Addi Staley MD [address] [facility] [address] [place], [place] [phone] 08/16/2019 Office Visit Cardiology Anil Stewart MD [address] [place] [phone] 08/23/2019 Office Visit Rheumatology Neville Pritchett MD [address] [place] [phone] 08/27/2019 Office Visit Gastroenterology GoSrikanth carranza MD [address] [place] [phone] 09/11/2019 Office Visit Pulmonary Disease Eli Miller MD [address] [place] [phone] 09/17/2019 Office Visit Orthopedic Surgery Wu Marcelino MD [address] [place], [place] [phone] Health Maintenance Due Date Last Done Comments [...] of this encounter Implants Implanted Type Area Laborer Chicken Farm Device Shelf Model / Identifier Expiration Serial / Date Lot [place], Arthrex Fastak Auture #[id number] - [id number] ANCHOR Right: Arthrex Inc 08/14/2018 [id number] / Implanted: Qty: 1 on 04/09/2014 by Nik Alfredo MD at [facility] AT [facility] / [id number] [place], Arthrex Fastak Auture #[id number] - [id number] ANCHOR Left: Ar[employer]rex Inc 11/13/2018 [id number] / Implanted: Qty: 2 on 03/18/2015 by Nik Alfredo MD at [facility] AT [facility] / [id number] 22fr Alia Gastric-Jejunal Tube Peg [facility] 08/14/2019 ALIA / Implanted: Qty: 1 on 06/08/2018 at [facility] 0250- 22 / [id number] Screw, Small Bone Innovations 6.0mm X50mm Fusifix Triple Thrd #955-4007 - [id number] SCREW Right: Small Bone 955-4007 / Implanted: Qty: 1 on 04/09/2014 by Nik Alfredo MD at [facility] AT [facility] Innovations / Screw, Small Bone Innovations 6.0mm X60mm Fusifix Triple Thrd #955-4009 - [id number] SCREW Right: Small Bone 955-4009 / Implanted: Qty: 1 on 04/09/2014 by Nik Alfredo MD at [facility] AT [facility] Innovations / Screw, Small Bone Innovations 6.0mm X40mm Fusifix Triple Thrd #955-4005 - [id number] SCREW Left: Small Bone 955-4005 / Implanted: Qty: 2 on 03/18/2015 by Nik Alfredo MD at [facility] [employer] / AUTO #1 LOAD #5 [id number] K-Wire, Small Bone Innovations 1.5 X 150mm #960-0000 - [id number] WIRE Small Bone 960-0000 / Implanted: Qty: 2 on 04/09/2014 at [facility] / K-Wire, Small Bone Innovations 1.5 X 150mm #960-0000 - [id number] WIRE Left: Small Bone 960-0000 / Implanted: Qty: 3 on 03/18/2015 at [facility] AT [facility] / AUTO #1 LOAD #5 [id number] documented as of this encounter Results Not on filedocumented in this encounter Insurance Payer Benefit Plan / Subscriber ID Effective Dates Phone Address Type Group [facility] xxxxxxxxx 2015-Present Medicaid COMM PLAN - PLUS MANAGED MEDICAID documented as of this encounter Advance Directives Type Date Recorded Patient Political Reporter Explanation Advance Directives and Living 01/21/2016 9:55 AM Will Power of Balloon Design Printer 01/21/2016 9:55 AM
--- OUTSIDE RECORDS SUMMARY | 2019-10-07 11:47 | XMS REPORT | Summary of Care ---
:1990 Author Organization [facility] - Health Address [address] [place] [address] Care Team Providers Name Role Phone Sarahidonita Wu Haas Unavailable Unavailable Joe Regalado MD Unavailable Arina Escudero AUD Unavailable Unavailable Romero Zamarripa MD Insurance Hmo Romero Zamarripa MD Primary Care Provider Encounter Details Date Type Department Care Team Description 06/19/2019 Patient Secure Msg [facility] MyChart Messages Doctor Unassigned, [address] [place] [address] [place] [address] [place] [address] [place] [address] Allergies Active Allergy Reactions Severity Noted Date [...] as of this encounter (statuses as of 07/21/2019) Medications Medication Sig Dispensed Refills Start Date [...] 1 tablet 90 tablet 3 02/07/2019 Active 80-Malx-RK-DSS by mouth 90-1-50 mg per daily. tabletIndications: Secondary oligomenorrhea, Patient desires metoprolol succinate Take 0.5 45 tablet 0 02/09/2019 Active XL 25 mg 24 hr tablets by tablet mouth daily. diphenhydrAMINE Take 50 mg by 0 Active (BENADRYL) 25 mg mouth. capsuleIndications: pt stated that she takes it every 8hrs PRN, for allergy PNV Take 1 tablet 30 tablet 11 03/05/2019 Active Comb.Si18-Jjrb,Carb- by mouth FA-DSS 29-1-50 mg daily. TbECIndications: [...] 3 Bipolar 1 disorder (three) times daily. traZODONE 50 mg Take 1 tablet 30 tablet 0 05/28/2019 Discontinued tabletIndications: by mouth at 9 JOAN (obstructive bedtime. sleep apnea) promethazine 6.25 Take 20 mL by 1419 mL 5 06/16/2019 Discontinued mg/5 mL mouth every 6 9 solutionIndications: (six) hours as Nausea and vomiting, needed for intractability of Nausea and vomiting not Vomiting specified, (N/V). unspecified vomiting type cephALEXin 500 mg Take 1 capsule 28 capsule 0 06/16/2019 Discontinued capsuleIndications: by mouth 4 9 Acute cystitis (four) times without hematuria daily. oxybutynin XL 5 mg Take 1 tablet 30 tablet 0 06/19/2019 Discontinued 24 hr by mouth 9 tabletIndications: daily. 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 04/08/2018 Hypogammaglobulinemia 01/05/2018 Lumbosacral spondylosis without myelopathy 08/09/2017 Overview: Added automatically from request for surgery [id number] Tachycardia 02/04/2017 History of DVT (deep vein [...] as of this encounter (statuses as of 07/21/2019) Resolved Problems Problem Noted Date Resolved Date [...] Headache 03/07/2014 06/06/2019 Overview: ICD10 Diagnosis Term 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 Utility Seizure 02/18/2014 01/24/2018 documented as of this encounter (statuses as of 07/21/2019) Immunizations Name Administration Dates Next Due Influenza [...] MD [address] [facility] [address] [place], [place] [phone] 08/16/2019 Office Visit Cardiology Anil Stewart MD [address] [place] [phone] 08/23/2019 Office Visit Rheumatology Neville Pritchett MD [address] [place] [phone] 08/27/2019 Office Visit Gastroenterology GoSrikanth carranza MD [address] [place] [address] [phone] 09/11/2019 Office Visit Pulmonary Disease Eli Miller MD [address] [place] [phone] 09/17/2019 Office Visit Orthopedic Surgery Wu Marcelino MD [address] [place], [place] [address] Health Maintenance Due Date Last Done Comments [...] of this encounter Implants Implanted Type Area Cable Tester Device Shelf Model / Identifier Expiration Serial / Date Lot [place], Arthrex Fastak Auture #[id number] - [id number] ANCHOR Right: Arthrex Inc 08/14/2018 [id number] / Implanted: Qty: 1 on 04/09/2014 by Nik Alfredo MD at [facility] / [id number] [place], Arthrex Fastak Auture #Ry-0735-358md - [id number] ANCHOR Left: Arthrex Inc 11/13/2018 [id number] / Implanted: Qty: 2 on 03/18/2015 by Nik Alfredo MD at [facility] AT [facility] / [id number] 22fr Alia Gastric-Jejunal Tube Peg [facility] 08/14/2019 ALIA / Implanted: Qty: 1 on 06/08/[address] [facility] 0250- 22 / [id number] Screw, Small Bone Innovations 6.0mm X50mm Fusifix Triple Thrd #955-4007 - [id number] SCREW Right: Small Bone 955-4007 / Implanted: Qty: 1 on 04/09/2014 by Nik Alfredo MD at [facility] [place] AT [facility] Feet Innovations / Screw, Small Bone Innovations 6.0mm X60mm Fusifix Triple Thrd #955-4009 - [id number] SCREW Right: Small Bone 955-4009 / Implanted: Qty: 1 on 04/09/2014 by Nik Alfredo MD at [facility] [place] AT [facility] Feet Innovations / Screw, Small Bone Innovations 6.0mm X40mm Fusifix Triple Thrd #955-4005 - [id number] SCREW Left: Small Bone 955-4005 / Implanted: Qty: 2 on 03/18/2015 by Nik Alfredo MD at [facility] AT [facility] Foot Innov[employer] / AUTO #1 LOAD #5 [id number] K-Wire, Small Bone Innovations 1.5 X 150mm #960-0000 - [id number] WIRE Small Bone 960-0000 / Implanted: Qty: 2 on 04/09/2014 at [facility] AT [facility] Innovations / K-Wire, Small Bone Innovations 1.5 X 150mm #960-0000 - [id number] WIRE Left: Small Bone 960-0000 / Implanted: Qty: 3 on 03/18/2015 at [facility] AT [facility] Foot [employer] / AUTO #1 LOAD #5 [id number] documented as of this encounter Results Not on filedocumented in this encounter Insurance Payer Benefit Plan / Subscriber ID Effective Dates Phone Address Type Group [facility] xxxxxxxxx 2015-Present Medicaid COMM PLAN - PLUS MANAGED MEDICAID documented as of this encounter Advance Directives Type Date Recorded Patient Head Men'S Tennis Coach Explanation Advance Directives and Living 01/21/2016 9:55 AM Will Power of Editorial Clerk 01/21/2016 9:55 AM
--- OUTSIDE RECORDS SUMMARY | 2019-10-07 11:48 | XMS REPORT | Summary of Care ---
:1990 Author Organization [facility] - [facility] Address [address] [place] [address] Care Team Providers Name Role Phone Sarahidonita Wu Haas Unavailable Unavailable Joe Regalado MD Unavailable Arina Escudero AUD Unavailable Unavailable Romero Zamarripa MD Insurance Hmo Romero Zamarripa MD Primary Care Provider Reason for Visit Reason Comments Refill Request Encounter Details Date Type Department Care Team Description 07/24/2019 Refill [facility] Family Medicine, Addi Staley MD Refill Request [address] [facility] [address] [address] [address] [place] [address] [phone] Allergies Active Allergy Reactions Severity Noted Date [...] as of this encounter (statuses as of 07/24/2019) Medications Medication Sig Dispensed Refills Start End [...] 1 tablet by 90 tablet 3 Active 11-Vafk-WR-DSS mouth daily. 9 90-1-50 mg per tabletIndications: Secondary oligomenorrhea, Patient desires metoprolol succinate Take 0.5 tablets 45 tablet 0 Active XL 25 mg 24 hr by mouth daily. 9 tablet diphenhydrAMINE Take 50 mg by 0 Active (BENADRYL) 25 mg mouth. capsuleIndications: pt stated that she takes it every 8hrs PRN, for allergy PNV Take 1 tablet by 30 tablet 11 Active Comb.Ut93-Upgb,Carb- mouth daily. 9 FA-DSS 29-1-50 mg TbECIndications: [...] (three) 9 Bipolar 1 disorder times daily. TRAZODONE 50 mg TAKE 1 TABLET BY [...] vomiting not Promethazine. specified, unspecified vomiting type oxybutynin chloride Take 1 tablet by 90 tablet 3 Active 5 mg mouth daily. 9 tabletIndications: Urinary dysfunction oxybutynin chloride Take 1 tablet by 30 tablet 0 07/24/20 Discontinued 5 mg mouth daily. 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 04/08/2018 Hypogammaglobulinemia 01/05/2018 Lumbosacral spondylosis without myelopathy 08/09/2017 Overview: Added automatically from request for surgery [id number] Tachycardia 02/04/2017 History of DVT (deep vein [...] as of this encounter (statuses as of 07/24/2019) Resolved Problems Problem Noted Date Resolved Date [...] 06/06/2019 Overview: ICD10 Diagnosis 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 Utility Seizure 02/18/2014 01/24/2018 documented as of this encounter (statuses as of 07/24/2019) Immunizations Name Administration Dates Next Due Influenza [...] Treatment Date Type Specialty Care Team Description 07/27/2019 Office Visit Allergy & Immunology: [facility] Self Internal Medicine MD Edgardo [address] [facility] [address] [place], [place] [phone] 08/03/2019 Office Visit Family Medicine Addi Staley MD [address] [facility] [address] [place], [place] [address] 08/16/2019 Office Visit Cardiology Anil Stewart MD [address] [place] [phone] 08/23/2019 Office Visit Rheumatology Neville Pritchett MD [address] [place] [phone] 08/27/2019 Office Visit Gastroenterology GouSrikanth MD [address] [place] [phone] 09/11/2019 Office Visit Pulmonary Disease Eli Miller MD [address] [place] [phone] 09/17/2019 Office Visit Orthopedic Surgery Wu Marcelino MD [address] [place] [address] Health Maintenance Due Date Last Done Comments [...] of this encounter Implants Implanted Type Area Amplifier Mechanic Device Shelf Model / Identifier Expiration Serial / Date Lot [place], Arthrex Fastak Auture #[id number]-3295-872bt - [id number] ANCHOR Right: Arthrex Inc 08/14/2018 [id number] / Implanted: Qty: 1 on 04/09/2014 by Nik Alfredo MD at [facility] AT [facility] / [id number] [place], Arthrex Fastak Auture #[id number]-[id number] - [id number] ANCHOR Left: Arthrex Inc 11/13/2018 [id number] / Implanted: Qty: 2 on 03/18/2015 by Nik Alfredo MD at [facility] [place] AT [facility] / [id number] 22fr Alia Gastric-Jejunal Tube Peg [facility] 08/14/2019 ALIA / Implanted: Qty: 1 on 06/08/2018 at [facility] 0250- 22 / [id number] Screw, Small Bone Innovations 6.0mm X50mm Fusifix Triple Thrd #955-4007 - [id number] SCREW Right: Small Bone 955-4007 / Implanted: Qty: 1 on 04/09/2014 by Nik Alfredo MD at [facility] Feet Innovations / Screw, Small Bone Innovations 6.0mm X60mm Fusifix Triple Thrd #955-4009 - [id number] SCREW Right: Small Bone 955-4009 / Implanted: Qty: 1 on 04/09/2014 by Nik Alfredo MD at [facility] AT [facility] Feet [employer] / Screw, Small Bone Innovations 6.0mm X40mm Fusifix Triple Thrd #955-4005 - [id number] SCREW Left: Small Bone 955-4005 / Implanted: Qty: 2 on 03/18/2015 by Nik Alfredo MD at [facility] AT [facility] Foot [employer] / AUTO #1 LOAD #5 [id number] K-Wire, Small Bone Innovations 1.5 X 150mm #960-0000 - [id number] WIRE Small Bone 960-0000 / Implanted: Qty: 2 on 04/09/2014 at [facility] AT [facility] Innovations / K-Wire, Small Bone Innovations 1.5 X 150mm #960-0000 - [id number] WIRE Left: Small Bone 960-0000 / Implanted: Qty: 3 on 03/18/2015 at [facility] AT 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
--- OUTSIDE RECORDS SUMMARY | 2019-10-07 11:48 | XMS REPORT | Summary of Care ---
:1990 Author Organization [facility] Address [address] [place] [address] Care Team Providers Name Role Phone Sarahidonita Wu Haas Unavailable Unavailable Joe Regalado MD Unavailable Arina Escudero AUD Unavailable Unavailable Romero Zamarripa MD Insurance Hmo Romero Zamarripa MD Primary Care Provider Reason for Visit Reason Comments Refill Request Encounter Details Date Type Department Care Team Description 07/21/2019 Refill [facility] Family Medicine, Addi Staley MD Refill Request [address] [facility] [address] [address] [address] [place] [address] [phone] Allergies Active Allergy Reactions Severity Noted Date [...] 07/24/2019) Medications Medication Sig Dispensed Refills Start Date [...] tablet by 90 tablet 3 02/07/2019 Active 93-Hbpq-OM-DSS mouth daily. 90-1-50 mg per tabletIndications: Secondary oligomenorrhea, Patient desires metoprolol succinate Take 0.5 tablets 45 tablet 0 02/09/2019 Active XL 25 mg 24 hr tablet by mouth daily. diphenhydrAMINE Take 50 mg by 0 Active (BENADRYL) 25 mg mouth. capsuleIndications: pt stated that she takes it every 8hrs PRN, for allergy PNV Take 1 tablet by 30 tablet 11 03/05/2019 Active Comb.Eq81-Dqsv,Carb-F mouth daily. 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 Utility Seizure 02/18/2014 01/24/2018 documented as [...] Paz Self Internal Medicine MD Edgardo [address] [place], [place] [address] 08/03/2019 Office Visit Family Medicine Addi Staley MD [address] [facility] [address] [place] [address] 08/16/2019 Office Visit Cardiology Anil Stewart MD [address] [place] [phone] 08/23/2019 Office Visit Rheumatology Neville Pritchett MD [address] [place] [phone] 08/27/2019 Office Visit Gastroenterology GouSrikanth MD [address] [place] [address] [phone] 09/11/2019 Office Visit Pulmonary Disease Eli Miller MD [address] [place] [address] 09/17/2019 Office Visit Orthopedic Surgery Wu Marcelino MD [address] [place] [address] Health Maintenance Due Date Last [...] of this encounter Implants Implanted Type Area Fireman Helper Device Shelf Model / Identifier Expiration Serial / Date Lot [place], Arthrex Fastak Auture #[id number] - [id number] ANCHOR Right: Arthrex Inc 08/14/2018 [id number] / Implanted: Qty: 1 on 04/09/2014 by Nik Alfredo MD at [facility] AT [facility] / [id number] [place], Arthrex Fastak Auture #[id number] - [id number] ANCHOR Left: Arthrex Inc 11/13/2018 [id number] / Implanted: Qty: 2 on 03/18/2015 by Nik Alfredo MD at [facility] AT [facility] / [id number] 22fr Alia Gastric-Jejunal Tube Peg [facility] 08/14/2019 ALIA / Implanted: Qty: 1 on 06/08/2018 at [facility] 0250- 22 / [id number] Screw, Small Bone Innovations 6.0mm X50mm Fusifix Triple Thrd #955-4007 - [id number] SCREW Right: Small Bone [id number] / Implanted: Qty: 1 on 04/09/2014 by Nik Alfredo MD at [facility] AT [facility] Innovations / Screw, Small Bone Innovations 6.0mm X60mm Fusifix Triple Thrd #955-4009 - [id number] SCREW Right: Small Bone [id number] / Implanted: Qty: 1 on 04/09/2014 by Nik Alfredo MD at [facility] AT [facility] Feet Innovations / Screw, Small Bone Innovations 6.0mm X40mm Fusifix Triple Thrd #955-4005 - [id number] SCREW Left: Small Bone [id number] / Implanted: Qty: 2 on 03/18/2015 by Nik Alfredo MD at [facility] AT [facility] Foot Innovations / AUTO #1 LOAD #5 [id number] K-Wire, Small Bone Innovations 1.5 X 150mm #960-0000 - [id number] WIRE Small Bone 960-0000 / Implanted: Qty: 2 on 04/09/2014 at [facility] AT [facility] / K-Wire, Small Bone Innovations 1.5 X 150mm #960-0000 - [id number] WIRE Left: Small Bone 960-0000 / Implanted: Qty: 3 on 03/18/2015 at [facility] AT [facility] Foot Innovations / AUTO #1 LOAD #5 [id number] documented as of this encounter Results Not on filedocumented in this encounter Visit Diagnoses Diagnosis Incomplete bladder emptying Urinary dysfunction Other abnormality of urination documented in this encounter Insurance Payer Benefit Plan / Subscriber ID Effective Dates Phone Address Type Group [facility] xxxxxxxxx 2015-Present Medicaid COMM PLAN - PLUS MANAGED MEDICAID documented as of this encounter Advance Directives Type Date Recorded 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
--- OUTSIDE RECORDS SUMMARY | 2019-10-07 11:49 | XMS REPORT | Summary of Care ---
:1990 Author Organization [facility] Address [address] [place] [address] Care Team Providers Name Role Phone Sarahidonita Wu Haas Unavailable Unavailable Joe Regalado MD Unavailable Arina Escudero AUD Unavailable Unavailable Romero Zamarripa MD Insurance Hmo Romero Zamarripa MD Primary Care Provider Reason for Visit Reason Comments Refill Request Encounter Details Date Type Department Care Team Description 07/22/2019 Refill [facility] Family Medicine, Addi Staley MD Refill Request [address] [facility] [address] [address] [address] [place] [address] [phone] Allergies Active Allergy Reactions Severity Noted Date [...] tablet by 90 tablet 3 02/07/2019 Active 01-Rmxn-XR-DSS mouth daily. 90-1-50 mg per tabletIndications: Secondary oligomenorrhea, Patient desires metoprolol succinate Take 0.5 tablets 45 tablet 0 02/09/2019 Active XL 25 mg 24 hr tablet by mouth daily. diphenhydrAMINE Take 50 mg by 0 Active (BENADRYL) 25 mg mouth. capsuleIndications: pt stated that she takes it every 8hrs PRN, for allergy PNV Take 1 tablet by 30 tablet 11 03/05/2019 Active Comb.Cm32-Seuy,Carb-F mouth daily. A-DSS 29-1-50 mg TbECIndications: Encounter [...] 3 (three) Bipolar 1 disorder times daily. 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 Utility Seizure 02/18/2014 01/24/2018 documented as [...] Treatment Date Type Specialty Care Team Description 07/26/2019 Office Visit Orthopedic Surgery Rudi Lopez MD [address] [place] [address] 07/27/2019 Office Visit Allergy & Immunology: Paz Self Internal Medicine MD Edgardo [address] [place], [place] [address] 08/03/2019 Office Visit Family Medicine Addi Staley MD [address] [facility] [address] [place], [place] [phone] 08/16/2019 Office Visit Cardiology Anil Stewart MD [address] [place] [phone] 08/23/2019 Office Visit Rheumatology Neville Pritchett MD [address] [place] [phone] 08/27/2019 Office Visit Gastroenterology Srikanth Hall MD [address] [place] [address] 09/11/2019 Office Visit Pulmonary Disease Eli Miller MD [address] [place] [address] 09/17/2019 Office Visit Orthopedic Surgery Wu Marcelino MD [address] [place] [address] Health Maintenance Due Date Last [...] of this encounter Implants Implanted Type Area Log Roper Device Shelf Model / Identifier Expiration Serial / Date Lot [place], Arthrex Fastak Auture #[id number] - [id number] ANCHOR Right: Arthrex Inc 08/14/2018 [id number] / Implanted: Qty: 1 on 04/09/2014 by Nik Alfredo MD at [facility] [place] AT [facility] / [id number] [place], Arthrex Fastak Auture #[id number] - [id number] ANCHOR Left: Arthrex Inc 11/13/2018 [id number] / Implanted: Qty: 2 on 03/18/2015 by Nik Alfredo MD at [facility] AT [facility] / [id number] 22fr Alia Gastric-Jejunal Tube Peg [facility] 08/14/2019 ALIA / Implanted: Qty: 1 on 06/08/2018 at [facility] 0250- 22 / [id number] Screw, Small Bone Innovations 6.0mm X50mm Fusifix Triple Thrd #955-4007 - [id number] SCREW Right: Small Bone [id number] / Implanted: Qty: 1 on 04/09/2014 by Nik Alfredo MD at [facility] [place] AT [facility] Innovations / Screw, Small Bone Innovations 6.0mm X60mm Fusifix Triple Thrd #955-4009 - [id number] SCREW Right: Small Bone 955-4009 / Implanted: Qty: 1 on 04/09/2014 by Nik Alfredo MD at [facility] AT [facility] Innovations / Screw, Small Bone Innovations 6.0mm X40mm Fusifix Triple Thrd #955-4005 - [id number] SCREW Left: Small Bone 955-4005 / Implanted: Qty: 2 on 03/18/2015 by Nik Alfredo MD at [facility] AT [facility] Foot Innovations / AUTO #1 LOAD #5 [id number] K-Wire, Small Bone Innovations 1.5 X 150mm #960-0000 - [id number] WIRE Small Bone 960-0000 / Implanted: Qty: 2 on 04/09/2014 at [facility] AT [facility] Utility Funding / K-Wire, Small Bone Innovations 1.5 X 150mm #960-0000 - [id number] WIRE Left: Small Bone 960-0000 / Implanted: Qty: 3 on 03/18/2015 at [facility] AT [facility] Foot Innovations / AUTO #1 LOAD #5 [id number] documented as of this encounter Results Not on filedocumented in this encounter Visit Diagnoses Diagnosis JOAN (obstructive sleep apnea) Obstructive sleep apnea (adult) (pediatric) documented in this encounter Insurance Payer Benefit Plan / Subscriber ID Effective Dates Phone Address Type Group [facility] [place] xxxxxxxxx 2015-Present Medicaid COMM PLAN - PLUS MANAGED MEDICAID documented as of this encounter Advance Directives Type Date Recorded Patient Files Supervisor Explanation Advance Directives and Living 01/21/2016 9:55 AM Will Power of Water And Sewer Systems Superintendent 01/21/2016 9:55 AM
--- OUTSIDE RECORDS SUMMARY | 2019-10-07 11:50 | XMS REPORT | Summary of Care ---
:1990 Author Organization [facility] Address [address] [place] [address] Care Team Providers Name Role Phone Sarahidonita Shereen Haas Unavailable Unavailable Joe Regalado MD Unavailable Arina Escudero AUD Unavailable Unavailable Romero Zamarripa MD Insurance Hmo Romero Zamarripa MD Primary Care Provider Reason for Referral (Routine) Status Reason Specialty Diagnoses / Referred By Referred To Procedures Contact Contact New Request Physical Therapy Diagnoses Patellar maltracking, right Rudi Lopez Procedures CONSULT/REFERRAL PHYSICAL THERAPY MD [facility] [place] [address] [place], [place] [phone] Radiology Services (Routine) Status Reason Specialty Diagnoses / Referred By Referred To Procedures Contact Contact New Request Diagnostic Diagnoses Acute pain of right knee Rudi Lopez Radiology Procedures XR KNEE 3 VW RIGHT MD Osmar [facility] [place] [address] [place] [address] Reason for Visit Reason Comments New Patient right knee Encounter Details Date Type Department Care Team Description 07/26/2019 Office Visit [facility] Rudi Lopez Patellar maltracking, right (Primary Dx); Orthopaedic Surgery- MD Osmar Acute pain of right knee [facility] [address], [address] [place] [id number] [place], [place] [phone] Allergies Active Allergy Reactions Severity Noted Date [...] as of this encounter (statuses as of 07/26/2019) Medications Medication Sig Dispensed Refills Start Date [...] tablet by 90 tablet 3 02/07/2019 Active 84-Tbuu-PL-DSS mouth daily. 90-1-50 mg per tabletIndications: Secondary oligomenorrhea, Patient desires metoprolol succinate Take 0.5 tablets 45 tablet 0 02/09/2019 Active XL 25 mg 24 hr tablet by mouth daily. diphenhydrAMINE Take 50 mg by 0 Active (BENADRYL) 25 mg mouth. capsuleIndications: pt stated that she takes it every 8hrs PRN, for allergy PNV Take 1 tablet by 30 tablet 11 03/05/2019 Active Comb.Tw96-Qyjn,Carb-F mouth daily. A-DSS 29-1-50 mg TbECIndications: Encounter [...] unresponsive to specified, Promethazine. unspecified vomiting type oxybutynin chloride 5 Take 1 tablet by 90 tablet 3 07/24/2019 Active mg tabletIndications: mouth daily. 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 Hypogammaglobulinemia 01/05/2018 Lumbosacral spondylosis without myelopathy 08/09/2017 Overview: Added automatically from request for surgery [id number] Tachycardia 02/04/2017 History of DVT (deep vein [...] as of this encounter (statuses as of 07/26/2019) Resolved Problems Problem Noted Date Resolved Date [...] Headache 03/07/2014 06/06/2019 Overview: ICD10 Diagnosis Term Plaster Pattern Caster Utility Seizure 02/18/2014 01/24/2018 documented as of this encounter (statuses as of 07/26/2019) Immunizations Name Administration Dates Next Due Influenza [...] Pressure - - Pulse - - Temperature 36.8 C (98.2 F) 07/26/2019 1:47 PM CDT Respiratory Rate - - Oxygen Saturation - - Inhaled Oxygen Concentration - - Weight 113.9 kg (251 lb 3.2 oz) 07/26/2019 1:47 PM CDT Height - - Body Mass Index 46.7 06/15/2019 9:12 AM CDT documented in this encounter Progress Sherin Urbano MD - 07/26/2019 1:30 PM CDT Ortho clinic Chief Complaint: Right knee pain HPI: Coco Stewart is a 29 year old female who presents to clinic today with complaint of right knee pain. She describes her pain as lateral pain, worse with getting up from standing and sitting for long periods. Her pain is constantly achy, with occasional sharp pain and "popping." She hashad many small popping episodes, but states that a few weeks ago she felt a much larger "pop" following bending her knee from an extended position, with associated swelling. She denies dislocation. She has a history of plica excision in 2007 and has been treated by Dr. Slater and Dr. Paulino with CSI and PT. She notes minimal improvement with CSI but has had some relief with PT, though admits that transportation and complying with HEP is a problem. She uses a knee brace with some relief, but the knee brace no longer fits. Past Medical History: Diagnosis Date Asthma Autoimmune disorder Bipolar I disorder depressed in partial or unspecified remission Cervical dystonia Generalized anxiety disorder GERD (gastroesophageal reflux disease) Heart murmur Iron deficiency anemia due to dietary causes 01/16/2016 Leiomyoma of uterus, unspecified Migraine Orthostatic lightheadedness [...] Surgeon: Joe Anne; Location: [facility] KNEE ARTHROSCOPY April 05, 2008 plical LIGAMENT REPAIR Left 03/18/2015 Surgeon: Nik Alfredo MD; [facility] RADIOFREQUENCY THERMOCOAGULATION 10/14/2014 RADIOFREQUENCY THERMOCOAGULATION Right 10/14/2014 Surgeon: Joe Anne MD; Location: [facility] SPLINT APPLICATION Left 03/18/2015 Surgeon: Nik Alfredo MD; Location: [facility] TARSAL TUNNEL RELEASE Right 08/14/2014 Surgeon: Nik Alfredo MD; Location: [facility] TENDON LENGTHENING Right 04/09/2014 Surgeon: Nik Alfredo [...] Last attempt to quit: 12/09/2008 Years since quittin.6 Smokeless tobacco: Never Used Tobacco comment: quit [...] file Gets together: Not on file Attends restorationism service: Not on file Active member of [...] Asked Social History Narrative Not on file REVIEW OF SYSTEMS Constitutional: no fever, no chills Eyes: no changes in vision ENMT: no sore throat, no congestion Cardiovascular: no chest pain Respiratory: no cough, no shortness of breath Gastrointestinal: no nausea, no vomiting, no diarrhea Genitourinary: no dysuria Integumentary: no itching, no rashes Neurological: no headaches, no seizures Hematologic/lymphatic: no bruising or bleeding tendencies Physical Exam Temp 36.8 C (98.2 F) (Temporal Artery) | Wt 113.9 kg (251 lb 3.2 oz) | BMI 46.70 kg/m Constitutional: NAD, morbid obesity CV: brisk capillary refill Respiratory: Breaths nonlabored, symmetrical chest expansion Musculoskeletal: Right Knee Fracture boot for ankle sprain in place AROM 0-110 + lateral tilt + maltracking of patella + patella grind TTP lateral joint line Imagin views right knee ordered today to evaluate for acute knee pain demonstrates no fractures or dislocations. Joint spaces maintained. Lateral patellar tilt present. Dx- Right knee patella maltracking - lateral patella compression syndrome Right knee PF chondromalacia A/p Educated patient on condition present Reviewed imaging Discussed conservative vs nonconservative management with the patient. Will proceed with conservative management at this time, since she has seen some imiprovement with brace and PT Script provided for Systems Eng patella stabilization brace Referral to PT Follow up in 6 weeks. Sherin Hameed MD Orthopaedic Surgery PGY-3 documented in this encounter Plan of Treatment Date Type Specialty Care Team Description 08/03/2019 Office Visit Family Medicine Addi Staley MD [address] [facility] [address] [place], [place] [phone] 08/10/2019 Office Visit Allergy & Immunology: Paz Self Internal Medicine MD Edgardo [address] [place], [place] [address] 08/16/2019 Office Visit Cardiology Anil Stewart MD [address] [place] [phone] 08/23/2019 Office Visit Rheumatology Neville Pritchett MD [address] [place] [address]. [place] [phone] 08/27/2019 Office Visit Gastroenterology GouSrikanth MD [address] [place] [address] [phone] 08/30/2019 Office Visit Orthopedic Surgery Rudi Lopez MD [address] [place] [address] [phone] 09/11/2019 Office Visit Pulmonary Disease Eli Miller MD [address] [place] [phone] 09/17/2019 Office Visit Orthopedic Surgery Shereen Marcelino MD [address] [place] [address] Health Maintenance Due Date Last [...] of this encounter Implants Implanted Type Area Double Cut Off Saw Operator Device Shelf Model / Identifier Expiration Serial / Date Lot [place], Arthrex Fastak Auture #[id number]-[id number] - [id number] ANCHOR Right: Arthrex Inc 08/14/2018 [id number] / Implanted: Qty: 1 on 04/09/2014 by Nik Alfredo MD at [facility] Feet / [id number] [place], Arthrex Fastak Auture #Gn-8099-885yg - [id number] ANCHOR Left: Ar[employer]rex Inc 11/13/2018 [id number] / Implanted: Qty: 2 on 03/18/2015 by Nik Alfredo MD at [facility] Foot / [id number] 22fr Alia Gastric-Jejunal Tube Peg [employer] 08/14/2019 ALIA / Implanted: Qty: 1 on 06/08/2018 at [facility] 0250- 22 / [id number] Screw, Small Bone Innovations 6.0mm X50mm Fusifix Triple Thrd #955-4007 - [id number] SCREW Right: Small Bone 955-4007 / Implanted: Qty: 1 on 04/09/2014 by Nik Alfredo MD at [facility] [place] AT [facility] Feet Innovations / Screw, Small Bone Innovations 6.0mm X60mm Fusifix Triple Thrd #955-4009 - [id number] SCREW Right: Small Bone 955-4009 / Implanted: Qty: 1 on 04/09/2014 by Nik Alfredo MD at [facility] [place] AT [facility] Innovations / Screw, Small Bone Innovations 6.0mm X40mm Fusifix Triple Thrd #955-4005 - [id number] SCREW Left: Small Bone 955-4005 / Implanted: Qty: 2 on 03/18/2015 by Nik Alfredo MD at [facility] AT [facility] Foot Innovations / AUTO #1 LOAD #5 [id number] K-Wire, Small Bone Innovations 1.5 X 150mm #960-0000 - [id number] WIRE Small Bone 960-0000 / Implanted: Qty: 2 on 04/09/2014 at [facility] AT [facility] Innovations / K-Wire, Small Bone Innovations 1.5 X 150mm #960-0000 - [id number] WIRE Left: Small Bone 960-0000 / Implanted: Qty: 3 on 03/18/2015 at [facility] AT [facility] Foot Innovations / AUTO #1 LOAD #5 [id number] documented as of this encounter Results XR KNEE 3 VW RIGHT (07/26/2019 1:59 PM CDT) Specimen Narrative Performed At 3 views right knee ordered today to evaluate for acute knee pain PACS demonstrates no fractures or dislocations. Joint spaces maintained. Lateral patellar tilt present. Performing Organization Address City/State/Zipcode Phone Number PACS documented in this encounter Visit Diagnoses Diagnosis Patellar maltracking, right - Primary Acute pain of right knee documented in this encounter Insurance Payer Benefit Plan Subscriber ID Effective Phone Address Type / Group Dates MEDICARE MEDICARE PART xxxxxxxxxxx 2019-[place] [phone] 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
--- OUTSIDE RECORDS SUMMARY | 2019-10-07 11:51 | XMS REPORT | Summary of Care ---
:1990 Author Organization [facility] Address [address] [place] [address] Care Team Providers Name Role Phone Nohemy Wu Haas Unavailable Unavailable Joe Regalado MD Unavailable Arina Escudero AUD Unavailable Unavailable Romero Zamarripa MD Insurance Hmo Romero Zamarripa MD Primary Care Provider Reason for Visit Reason Comments Rx Concern/Question Encounter Details Date Type Department Care Team Description 07/23/2019 Telephone [facility] Anil Stewart MD Rx Concern/Question Cardiology, [id number] [place] [address] [phone] Allergies Active Allergy Reactions Severity Noted Date [...] as of this encounter (statuses as of 07/27/2019) Medications Medication Sig Dispensed Refills Start Date [...] tablet by 90 tablet 3 02/07/2019 Active 02-Vsab-JK-DSS mouth daily. 90-1-50 mg per tabletIndications: Secondary oligomenorrhea, Patient desires metoprolol succinate Take 0.5 tablets 45 tablet 0 02/09/2019 Active XL 25 mg 24 hr tablet by mouth daily. diphenhydrAMINE Take 50 mg by 0 Active (BENADRYL) 25 mg mouth. capsuleIndications: pt stated that she takes it every 8hrs PRN, for allergy PNV Take 1 tablet by 30 tablet 11 03/05/2019 Active Comb.Mt17-Lcnh,Carb-F mouth daily. 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 Hypogammaglobulinemia 01/05/2018 Lumbosacral spondylosis without myelopathy 08/09/2017 Overview: Added automatically from request for surgery [id number] Tachycardia 02/04/2017 History of DVT (deep vein [...] as of this encounter (statuses as of 07/27/2019) Resolved Problems Problem Noted Date Resolved Date [...] Headache 03/07/2014 06/06/2019 Overview: ICD10 Diagnosis Term Fiberglass Machine Operator Utility Seizure 02/18/2014 01/24/2018 documented as of this encounter (statuses as of 07/27/2019) Immunizations Name Administration Dates Next Due Influenza [...] Visit Family Medicine Addi Staley MD [address] [place], [place] [address] 08/10/2019 Office Visit Allergy & Immunology: Paz Self Internal Medicine MD Edgardo [address] [place], [place] [address] 08/16/2019 Office Visit Cardiology Anil Stewart MD [address] [place] [phone] 08/23/2019 Office Visit Rheumatology Neville Pritchett MD [address] [place] [phone] 08/27/2019 Office Visit Gastroenterology GoSrikanth carranza MD [address] [place] [phone] 08/30/2019 Office Visit Orthopedic Surgery Rudi Lopez MD [address] [facility] [address] [place], [place] [address] 09/11/2019 Office Visit Pulmonary Disease Eli Miller MD [address] [place] [address] 09/17/2019 Office Visit Orthopedic Surgery Wu Marcelino MD [address] [place] [address] Health Maintenance Due Date Last [...] of this encounter Implants Implanted Type Area Employment Director Device Shelf Model / Identifier Expiration Serial / Date Lot Eagle, Arthrex Fastak Auture #In-[id number] - [id number] ANCHOR Right: Ar[employer]rex Inc 08/14/2018 [id number] / Implanted: Qty: 1 on 04/09/2014 by Nik Alfredo MD at [facility] [place] AT [facility] / [id number] Eagle, Arthrex Fastak Auture #Ai-1074-489aj - [id number] ANCHOR Left: [employer] 11/13/2018 [id number] / Implanted: Qty: 2 on 03/18/2015 by Nik Alfredo MD at [facility] AT [facility] / [id number] 22fr Alia Gastric-Jejunal Tube Peg [facility] 08/14/2019 ALIA / Implanted: Qty: 1 on 06/08/2018 at [facility] 0250- 22 / [id number] Screw, Small Bone Innovations 6.0mm X50mm Fusifix Triple Thrd #955-4007 - [id number] SCREW Right: Small Bone [id number] / Implanted: Qty: 1 on 04/09/2014 by Nik Alfredo MD at [facility] [place] AT [facility] Innovations / Screw, Small Bone Innovations 6.0mm X60mm Fusifix Triple Thrd #955-4009 - [id number] SCREW Right: Small Bone [id number] / Implanted: Qty: 1 on 04/09/2014 by Nik Alfredo MD at [facility] Feet Innovations / Screw, Small Bone Innovations 6.0mm X40mm Fusifix Triple Thrd #955-4005 - [id number] SCREW Left: Small Bone 955-4005 / Implanted: Qty: 2 on 03/18/2015 by Nik Alfredo MD at [facility] AT [facility] Foot Innovations / AUTO #1 LOAD #5 [id number] K-Wire, Small Bone Innovations 1.5 X 150mm #960-0000 - [id number] WIRE Small Bone 960-0000 / Implanted: Qty: 2 on 04/09/2014 at [facility] AT [facility] Innovations / K-Wire, Small Bone Innovations 1.5 X 150mm #960-0000 - [id number] WIRE Left: Small Bone 960-0000 / Implanted: Qty: 3 on 03/18/2015 at [facility] AT [facility] Foot Innovations / AUTO #1 LOAD #5 [id number] documented as of this encounter Results Not on filedocumented in this encounter Insurance Payer Benefit Plan Subscriber ID Effective Phone Address Type / Group Dates [facility] xxxxxxxxx 2015-Prese Medicaid HEALTHCARE COMM STAR PLUS nt PLAN - MANAGED MEDICAID MEDICARE MEDICARE PART xxxxxxxxxxx 2019-[place] 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
--- OUTSIDE RECORDS SUMMARY | 2019-10-07 11:51 | XMS REPORT | Summary of Care ---
:1990 Author Organization [facility] - [facility] Address [address] [place] [address] Care Team Providers Name Role Phone Wu Slater Unavailable Unavailable Joe Regalado MD Unavailable Arina Escudero AUD Unavailable Unavailable Romero Zamarripa MD Insurance Hmo Romero Zamarripa MD Primary Care Provider Reason for Visit Radiology Services (Routine) Status Reason Specialty Diagnoses / Referred By Referred To Procedures Contact Contact New Request Diagnostic Diagnoses Acute pain of right knee Rudi Lopez Radiology Procedures XR KNEE 3 VW RIGHT MD Osmar [address] [place] [address] [place] [phone] Encounter Details Date Type Department Care Team Description 07/26/2019 Hospital Encounter [facility] Rudi Lopez Arrived Orthopedics at [facility] MD Osmar [facility] Radiology [address] [place] [address] [place], [place] [phone] [phone] Allergies Active Allergy Reactions Severity Noted Date [...] tablet by 90 tablet 3 02/07/2019 Active 96-Lhhb-YG-DSS mouth daily. 90-1-50 mg per tabletIndications: Secondary oligomenorrhea, Patient desires metoprolol succinate Take 0.5 tablets 45 tablet 0 02/09/2019 Active XL 25 mg 24 hr tablet by mouth daily. diphenhydrAMINE Take 50 mg by 0 Active (BENADRYL) 25 mg mouth. capsuleIndications: pt stated that she takes it every 8hrs PRN, for allergy PNV Take 1 tablet by 30 tablet 11 03/05/2019 Active Comb.Ny50-Hprg,Carb-F mouth daily. 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 Hypogammaglobulinemia 01/05/2018 Lumbosacral spondylosis without myelopathy 08/09/2017 Overview: Added automatically from request for surgery [id number] Tachycardia 02/04/2017 History of DVT (deep vein [...] Headache 03/07/2014 06/06/2019 Overview: ICD10 Diagnosis Term Rn New Graduate Utility Seizure 02/18/2014 01/24/2018 documented as of [...] Addi Staley MD [address] [place] [address] 08/10/2019 Office Visit Allergy & Immunology: Paz Self Internal Medicine MD Edgardo [address] [facility] [address] [place], [place] [phone] 08/16/2019 Office Visit Cardiology Anil Stewart MD [address] [place] [phone] 08/23/2019 Office Visit Rheumatology Neville Pritchett MD [address] [place] [address] [phone] 08/27/2019 Office Visit Gastroenterology GoSrikanth carranza MD [address] [place] [address] [phone] 08/30/2019 Office Visit Orthopedic Surgery Rudi Lopez MD [address] [facility] [address] [place], [place] [address] 09/11/2019 Office Visit Pulmonary Disease Eli Miller MD [address] [place] [phone] 09/17/2019 Office Visit Orthopedic Surgery Wu Marcelino MD [address] [place] [address] [phone] Health Maintenance Due Date Last Done Comments [...] of this encounter Implants Implanted Type Area Solar Photovoltaic Installer Device Shelf Model / Identifier Expiration Serial / Date Lot [place], Arthrex Fastak Auture #Xe-[id number] - [id number] ANCHOR Right: Arthrex Inc 08/14/2018 [id number] / Implanted: Qty: 1 on 04/09/2014 by Nik Alfredo MD at [facility] Feet / [id number] [place], Arthrex Fastak Auture #Yc-2427-470ds - [id number] ANCHOR Left: Ar[employer]rex Inc 11/13/2018 [id number] / Implanted: Qty: 2 on 03/18/2015 by Nik Alfredo MD at [facility] Foot / [id number] 22fr Alia Gastric-Jejunal Tube Peg [facility] 08/14/2019 ALIA / Implanted: Qty: 1 on 06/08/2018 at [facility] 0250- 22 / [id number] Screw, Small Bone Innovations 6.0mm X50mm Fusifix Triple Thrd #955-4007 - [id number] SCREW Right: Small Bone 955-4007 / Implanted: Qty: 1 on 04/09/2014 by Nik Alfredo MD at [facility] [place] AT [facility] [employer] Innovations / Screw, Small Bone Innovations 6.0mm X60mm Fusifix Triple Thrd #955-4009 - [id number] SCREW Right: Small Bone 955-4009 / Implanted: Qty: 1 on 04/09/2014 by Nik Alfredo MD at [facility] AT [facility] Innovations / Screw, Small Bone Innovations 6.0mm X40mm Fusifix Triple Thrd #955-4005 - [id number] SCREW Left: Small Bone 955-4005 / Implanted: Qty: 2 on 03/18/2015 by Nik Alfredo MD at [facility] AT [facility] Innovations / AUTO #1 LOAD #5 [id number] K-Wire, Small Bone Innovations 1.5 X 150mm #960-0000 - [id number] WIRE Small Bone 960-0000 / Implanted: Qty: 2 on 04/09/2014 at [facility] studentSN / K-Wire, Small Bone Innovations 1.5 X 150mm #960-0000 - [id number] WIRE Left: Small Bone 960-0000 / Implanted: Qty: 3 on 03/18/2015 at [facility] AT [facility] Innovations / AUTO #1 LOAD #5 [id number] documented as of this encounter Procedures Procedure Name Priority Date/Time Associated Diagnosis Comments XR KNEE 3 VW RIGHT Routine 07/26/2019 1:59 PM Acute pain of right Results for this CDT knee procedure are in the results section. documented in this encounter Results XR KNEE 3 VW RIGHT (07/26/2019 1:59 PM CDT) Specimen Narrative Performed At 3 views right knee ordered today to evaluate for acute knee pain PACS demonstrates no fractures or dislocations. Joint spaces maintained. Lateral patellar tilt present. Performing Organization Address City/State/Zipcode Phone Number PACS documented in this encounter Visit Diagnoses Diagnosis Acute pain of right knee documented in this encounter Insurance Payer Benefit Plan Subscriber ID Effective Phone Address Type / Group Dates MEDICARE MEDICARE PART xxxxxxxxxxx [id number] [phone] [address] [facility] Medicare A & B nt [id number] BIBI MCCARTNEY [id number] [facility] xxxxxxxxx 2015-[place] Medicaid HEALTHCARE COMM STAR PLUS nt PLAN - MANAGED MEDICAID documented as of this encounter Advance Directives Type Date Recorded Patient Trials Manager Explanation Advance Directives and Living 01/21/2016 9:55 AM Will Power of Oil Well Perforator Operator 01/21/2016 9:55 AM
--- OUTSIDE RECORDS SUMMARY | 2019-10-07 11:51 | XMS REPORT | Summary of Care ---
:1990 Author Organization [facility] Address [address] [place] [address] Care Team Providers Name Role Phone Sarahidonita [...] Procedures CONSULT/REFERRAL PHYSICAL THERAPY MD Osmar [address] [facility] [place] [address] [place], [place] [phone] Radiology Services (Routine) Status Reason Specialty Diagnoses / Referred By Referred To Procedures Contact Contact New Request Diagnostic Diagnoses Acute pain of right knee Rudi Lopez Radiology Procedures XR KNEE 3 VW RIGHT MD Osmar [address] [facility] [place] [address] [place] [address] Reason for Visit Reason Comments New Patient right knee Encounter Details Date Type Department Care Team Description 07/26/2019 Office Visit [facility] Rudi Lopez Patellar maltracking, right (Primary Dx); Orthopaedic Surgery- MD Osmar Acute pain of right knee [facility] [address], [address] [place] [phone] [place], [place] [phone] Allergies Active Allergy Reactions Severity Noted Date [...] tablet by 90 tablet 3 02/07/2019 Active 05-Mgbc-BU-DSS mouth daily. 90-1-50 mg per tabletIndications: Secondary oligomenorrhea, Patient desires metoprolol succinate Take 0.5 tablets 45 tablet 0 02/09/2019 Active XL 25 mg 24 hr tablet by mouth daily. diphenhydrAMINE Take 50 mg by 0 Active (BENADRYL) 25 mg mouth. capsuleIndications: pt stated that she takes it every 8hrs PRN, for allergy PNV Take 1 tablet by 30 tablet 11 03/05/2019 Active Comb.Oh78-Wgpr,Carb-F mouth daily. 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 Sherin Hameed MD Orthopaedic Surgery PGY-3 I performed a history and physical examination of the patient and discussed the patient's managementwith the resident's. I reviewed the resident's note and agree with the documented findings and planof care. Rudi Lopez MD Cyber Forensics Analyst Orthopaedic Surgery 07/26/2019 3:05 PM documented in this encounter Plan of Treatment Date Type Specialty Care Team Description 08/03/2019 Office Visit Family Medicine Addi Staley MD [address] [facility] [address] [place], [place] [phone] 08/10/2019 Office Visit Allergy & Immunology: Paz Self Internal Medicine MD Edgardo [address] [facility] 107 [place], [place] [address] 08/16/2019 Office Visit Cardiology Anil Stewart MD [address] [place] [address] [phone] 08/23/2019 Office Visit Rheumatology Neville Pritchett MD [address] [place] [address] [phone] 08/27/2019 Office Visit Gastroenterology Srikanth Hall MD [address] [place] [address] [phone] 08/30/2019 Office Visit Orthopedic Surgery Rudi Lopez MD [address] [facility] 109 [place], [place] 3[address] 09/11/2019 Office Visit Pulmonary Disease Eli Miller MD [address] [place] [address] 09/17/2019 Office Visit Orthopedic Surgery Shereen Marcelino MD [address] [place] [address] [phone] Health Maintenance Due Date Last Done Comments [...] of this encounter Implants Implanted Type Area Mapping Specialist Device Shelf Model / Identifier Expiration Serial / Date Lot [place], Arthrex Fastak Auture #Ft-5025-970ss - [id number] ANCHOR Right: Ar[employer]rex Inc 08/14/2018 [id number] / Implanted: Qty: 1 on 04/09/2014 by Nik Alfredo MD at [facility] [place] AT [facility] Feet / [id number] [place], Arthrex Fastak Auture #Em-0622-534mc - [id number] ANCHOR Left: Ar[employer]rex Inc 11/13/2018 [id number] / Implanted: Qty: 2 on 03/18/2015 by Nik Alfredo MD at [facility] Foot / [id number] 22fr Alia Gastric-Jejunal Tube Peg [facility] 08/14/2019 ALIA / Implanted: Qty: 1 on 06/08/2018 at [facility] 0250- 22 / [id number] Screw, Small Bone Innovations 6.0mm X50mm Fusifix Triple Thrd #955-4007 - [id number] SCREW Right: Small Bone 955-4007 / Implanted: Qty: 1 on 04/09/2014 by Nik Alfredo MD at [facility] [place] AT [facility] [employer] Innovations / Screw, Small Bone Innovations 6.0mm X60mm Fusifix Triple Thrd #955-4009 - [id number] SCREW Right: Small Bone 955-4009 / Implanted: Qty: 1 on 04/09/2014 by Nik Alfredo MD at [facility] [place] AT [facility] [employer] Innov[employer] / Screw, Small Bone Innovations 6.0mm X40mm Fusifix Triple Thrd #955-4005 - [id number] SCREW Left: Small Bone 955-4005 / Implanted: Qty: 2 on 03/18/2015 by Nik Alfredo MD at [facility] [place] [facility] [employer] Innov[employer] / AUTO #1 LOAD #5 [id number] K-Wire, Small Bone Innovations 1.5 X 150mm #960-0000 - [id number] WIRE Small Bone 960-0000 / Implanted: Qty: 2 on 04/09/2014 at [facility] [employer] / K-Wire, Small Bone Innovations 1.5 X 150mm #960-0000 - [id number] WIRE Left: Small Bone 960-0000 / Implanted: Qty: 3 on 03/18/2015 at [facility] [place] [facility] [employer] Innov[employer] / AUTO #1 LOAD #5 [id number] documented as of this encounter Results XR [...] BOX Medicare A & B nt [id number] BIBI MCCARTNEY [phone] [facility] xxxxxxxxx 2015-[place] Medicaid HEALTHCARE [facility] STAR PLUS nt PLAN - MANAGED MEDICAID documented as of this encounter Advance Directives Type Date Recorded 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
--- OUTSIDE RECORDS SUMMARY | 2019-10-07 11:52 | XMS REPORT | Summary of Care ---
:1990 Author Organization [facility] - [facility] Address [address] [place] [address] Care Team Providers Name Role Phone Wu Slater Unavailable Unavailable Joe Regalado MD Unavailable Arina Escudero AUD Unavailable Unavailable Romero Zamarripa MD Insurance Hmo Romero Zamarripa MD Primary Care Provider Reason for Visit Reason Comments Rx Concern/Question oxybutynin chloride 5 mg tablet issue Encounter Details Date Type Department Care Team Description 06/22/2019 Telephone [facility] Pelvic Zhane, Nilda Rx Concern/Question [facility] Liz 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 tabletIndications: Secondary oligomenorrhea, Patient desires metoprolol succinate Take 0.5 45 tablet 0 02/09/2019 Active XL 25 mg 24 hr tablets by tablet mouth daily. diphenhydrAMINE Take 50 mg by 0 Active (BENADRYL) 25 mg mouth. capsuleIndications: pt stated that she takes it every 8hrs PRN, for allergy PNV Take 1 tablet 30 tablet 11 03/05/2019 Active Comb.Gn16-Cuep,Carb- by mouth FA-DSS 29-1-50 mg daily. TbECIndications: [...] Take 1 tablet 30 tablet 0 06/21/2019 Discontinued 5 mg by mouth 9 tabletIndications: daily. 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 04/08/2018 Hypogammaglobulinemia 01/05/2018 Lumbosacral spondylosis without myelopathy 08/09/2017 Overview: Added automatically from request for surgery [id number] Tachycardia 02/04/2017 History of DVT (deep vein [...] as of this encounter (statuses as of 07/29/2019) Resolved Problems Problem Noted Date Resolved Date [...] Headache 03/07/2014 06/06/2019 Overview: ICD10 Diagnosis 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 [phone] 08/27/2019 Office Visit Gastroenterology Srikanth Hall MD 301 [place], [place] [phone] 08/30/2019 Office Visit Orthopedic Surgery Rudi Lopez MD [address] [place] [address] [place] [address] [phone] 09/11/2019 Office Visit Pulmonary Disease Eli Miller MD [address] [place] [phone] 09/17/2019 Office Visit Orthopedic Surgery Wu Marcelino MD [address] [place] [address] Health Maintenance Due Date Last [...] of this encounter Implants Implanted Type Area Choke Reamer Device Shelf Model / Identifier Expiration Serial / Date Lot [place], Arthrex Fastak Auture #[id number] - [id number] ANCHOR Right: [employer] Inc 08/14/2018 [id number] / Implanted: Qty: 1 on 04/09/2014 by Nik Alfredo MD at [facility] [place] AT [facility] / [id number] [place], Arthrex Fastak Auture #[id number] - [id number] ANCHOR Left: [employer] 11/13/2018 [id number] / Implanted: Qty: 2 on 03/18/2015 by Nik Alfredo MD at [facility] [place] AT [facility] / [id number] 22fr Alia Gastric-Jejunal Tube Peg [facility] 08/14/2019 ALIA / Implanted: Qty: 1 on 06/08/2018 at [facility] 0250- 22 / [id number] Screw, Small Bone Innovations 6.0mm X50mm Fusifix Triple Thrd #955-4007 - [id number] SCREW Right: Small Bone [id number] / Implanted: Qty: 1 on 04/09/2014 by Nik Alfredo MD at [facility] [place] AT [facility] Innovations / Screw, Small Bone Innovations 6.0mm X60mm Fusifix Triple Thrd #955-4009 - [id number] SCREW Right: Small Bone [id number] / Implanted: Qty: 1 on 04/09/2014 by Nik Alfredo MD at [facility] AT [facility] Innovations / Screw, Small Bone Innovations 6.0mm X40mm Fusifix Triple Thrd #955-4005 - [id number] SCREW Left: Small Bone [id number] / Implanted: Qty: 2 on 03/18/2015 by Nik Alfredo MD at [facility] [place] AT [facility] Foot Innovations / AUTO #1 LOAD #5 [id number] K-Wire, Small Bone Innovations 1.5 X 150mm #960-0000 - [id number] WIRE Small Bone 960-0000 / Implanted: Qty: 2 on 04/09/2014 at [facility] AT [facility] Innovations / K-Wire, Small Bone Innovations 1.5 X 150mm #960-0000 - [id number] WIRE Left: Small Bone 960-0000 / Implanted: Qty: 3 on 03/18/2015 at [facility] AT [facility] Foot Innovations / AUTO #1 LOAD #5 [id number] documented as of this encounter Results Not on filedocumented in this encounter Insurance Payer Benefit Plan Subscriber ID Effective Phone Address Type / Group Dates [facility] xxxxxxxxx 2015-[place] Medicaid [facility] STAR PLUS nt PLAN - MANAGED MEDICAID MEDICARE MEDICARE PART xxxxxxxxxxx 2019-[place] [phone] 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
--- OUTSIDE RECORDS SUMMARY | 2019-10-07 11:53 | XMS REPORT | Summary of Care ---
:1990 Author Organization [facility] - [facility] Address [address] [place] [address] Care Team Providers Name Role Phone Wu Slater Unavailable Unavailable Joe Regalado MD Unavailable Arina Escudero AUD Unavailable Unavailable Romero Zamarripa MD Insurance Hmo Romero Zamarripa MD Primary Care Provider Reason for Referral MRI/CAT Scan (Routine) Status Reason Specialty Diagnoses / Referred By Referred To Procedures Contact Contact Closed Diagnostic Diagnoses Acute right ankle pain Panchbhavi, Radiology Procedures MR ANKLE RIGHT WO KIMBERLY Zaragoza MD [address] [place] [address] MRI/CAT Scan (Routine) Status Reason Specialty Diagnoses / Referred By Referred To Procedures Contact Contact Closed Diagnostic Diagnoses Acute right ankle pain Panchbhavi, Radiology Procedures MR ANKLE RIGHT WO KIMBERLY Zaragoza MD [address] [place] [address] Reason for Visit MRI/CAT Scan (Routine) Status Reason Specialty Diagnoses / Referred By Referred To Procedures Contact Contact Closed Diagnostic Diagnoses Acute right ankle pain Panchbhavi, Radiology Procedures MR ANKLE RIGHT WO KIMBERLY Zaragoza MD [address] [place] [address] Encounter Details Date Type Department Care Team Description 07/31/2019 Hospital Encounter [facility] IreneNik de guzman, Arrived Resonance Imaging [address] [facility] [place] [address] [place], [place] [phone] Allergies Active Allergy Reactions Severity Noted Date [...] as of this encounter (statuses as of 08/01/2019) Medications Medication Sig Dispensed Refills Start Date [...] tablet by 90 tablet 3 02/07/2019 Active 24-Wrli-PA-DSS mouth daily. 90-1-50 mg per tabletIndications: Secondary oligomenorrhea, Patient desires metoprolol succinate Take 0.5 tablets 45 tablet 0 02/09/2019 Active XL 25 mg 24 hr tablet by mouth daily. diphenhydrAMINE Take 50 mg by 0 Active (BENADRYL) 25 mg mouth. capsuleIndications: pt stated that she takes it every 8hrs PRN, for allergy PNV Take 1 tablet by 30 tablet 11 03/05/2019 Active Comb.Zf31-Uwny,Carb-F mouth daily. 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 04/08/2018 Hypogammaglobulinemia 01/05/2018 Lumbosacral spondylosis without myelopathy 08/09/2017 Overview: Added automatically from request for surgery [id number] Tachycardia 02/04/2017 History of DVT (deep vein [...] as of this encounter (statuses as of 08/01/2019) Resolved Problems Problem Noted Date Resolved Date [...] Headache 03/07/2014 06/06/2019 Overview: ICD10 Diagnosis 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 Utility Seizure 02/18/2014 01/24/2018 documented as of this encounter (statuses as of 08/01/2019) Immunizations Name Administration Dates Next Due Influenza [...] Visit Family Medicine Addi Staley MD [address] [facility] [address] [place], [place] [address] 08/10/2019 Office Visit Allergy & Immunology: Paz Self Internal Medicine MD Edgardo [address] [facility] [address] [place], [place] [address] 08/16/2019 Office Visit Cardiology Anil Stewart MD [address] [place] [phone] 08/23/2019 Office Visit Rheumatology Neville Pritchett MD [address] [place] [phone] 08/27/2019 Office Visit Gastroenterology GoSrikanth carranza MD [address] [place] [address] [phone] 08/30/2019 Ancillary Visit Physical Therapy Edgardo Paulino MD 301 [facility] DS[address]268 [place] [address] [phone] Hector Willis, PT [address] [place] [address] 08/30/2019 Office Visit Orthopedic Surgery Rudi Lopez MD [address] [facility] [address] [place] [address] [place] [address] [phone] 09/11/2019 Office Visit Pulmonary Disease Eli Miller MD 2660 [place] [phone] 09/17/2019 Office Visit Orthopedic Surgery Wu Marcelino MD [address] [place], [place] [phone] Health Maintenance Due Date Last Done Comments [...] of this encounter Implants Implanted Type Area Dog Barber Device Shelf Model / Identifier Expiration Serial / Date Lot [place], Arthrex Fastak Auture #[id number] - [id number] ANCHOR Right: Ar[employer]rex Inc 08/14/2018 [id number] / Implanted: Qty: 1 on 04/09/2014 by Nik Alfredo MD at [facility] [place] AT [facility] / [id number] [place], Arthrex Fastak Auture #[id number] - [id number] ANCHOR Left: [employer] 11/13/2018 [id number] / Implanted: Qty: 2 on 03/18/2015 by Nik Alfredo MD at [facility] [place] AT [facility] / [id number] 22fr Alia Gastric-Jejunal Tube Peg [facility] 08/14/2019 ALIA / Implanted: Qty: 1 on 06/08/2018 at [facility] 0250- 22 / [id number] Screw, Small Bone Innovations 6.0mm X50mm Fusifix Triple Thrd #955-4007 - [id number] SCREW Right: Small Bone 955-4007 / Implanted: Qty: 1 on 04/09/2014 by Nik Alfredo MD at [facility] [place] AT [facility] Innovations / Screw, Small Bone Innovations 6.0mm X60mm Fusifix Triple Thrd #955-4009 - [id number] SCREW Right: Small Bone 955-4009 / Implanted: Qty: 1 on 04/09/2014 by Nik Alfredo MD at [facility] AT [facility] Innovations / Screw, Small Bone Innovations 6.0mm X40mm Fusifix Triple Thrd #955-4005 - [id number] SCREW Left: Small Bone 955-4005 / Implanted: Qty: 2 on 03/18/2015 by Nik Alfredo MD at [facility] [place] AT [facility] Foot Innovations / AUTO #1 LOAD #5 [id number] K-Wire, Small Bone Innovations 1.5 X 150mm #960-0000 - [id number] WIRE Small Bone 960-0000 / Implanted: Qty: 2 on 04/09/2014 at [facility] AT [facility] Innovations / K-Wire, Small Bone Innovations 1.5 X 150mm #960-0000 - [id number] WIRE Left: Small Bone 960-0000 / Implanted: Qty: 3 on 03/18/2015 at [facility] AT [facility] Foot Innovations / AUTO #1 LOAD #5 [id number] documented as of this encounter Procedures Procedure Name Priority Date/Time Associated Diagnosis Comments MR ANKLE RIGHT WO Routine 07/31/2019 3:19 PM Acute right ankle Results for this CONTRAST CDT pain procedure are in the results section. documented in this encounter Results MR ANKLE RIGHT WO CONTRAST (07/31/2019 3:19 PM CDT) Specimen Impressions Performed At Chronic posttraumatic and/or post surgical thickening of the lateral PACS/VR/DOSE ligament complex. Status post calcaneal osteotomy with lateral shift of the Achilles/calcaneal tuberosity. Mild edema within the abductor hallucis muscle belly which may relate to muscle strain versus neurogenic edema. Narrative Performed At EXAM: PACS/VR/DOSE MRI RIGHT ANKLE HISTORY: Ankle pain, uncertain etiol, neg xray COMPARISON: Radiographs dated May 2019 TECHNIQUE AND FINDINGS: 1.5T multiplanar multiweighted MR imaging of the right ankle was performed. BONE AND JOINT: Susceptibility artifact from calcaneal osteotomy screw fixation and lateral malleolar fixation anchors are seen limiting evaluation in these regions. There is lateral shift of the calcaneus at the calcaneal tuberosity/Achilles tendon insertion. The talar dome cartilage surfaces are within normal limits. Bone marrow signal intensity is within normal limits. LIGAMENTS /TENDONS/SOFT TISSUES: The deltoid ligament complex is intact. The syndesmotic ligament complex is unremarkable. The lateral ligament complex is intact with mild thickening of the anterior talofibular ligament and calcaneal fibular ligament. Plantar fascia is intact. There is minimal fatty infiltration seen within the abductor digiti quinti. There is edema seen within the muscle belly of the abductor hallucis. The visualized flexor and extensor tendons are unremarkable.Mild subcutaneous T2 signal increase is seen over the medial and lateral ankle. Procedure Note [facility], Radiant Results Inft User - 07/31/2019 4:17 PM CDT EXAM: MRI RIGHT ANKLE HISTORY: Ankle pain, uncertain etiol, neg xray COMPARISON: Radiographs dated May 2019 TECHNIQUE AND FINDINGS: 1.5T multiplanar multiweighted MR imaging of the right ankle was performed. BONE AND JOINT: Susceptibility artifact from calcaneal osteotomy screw fixation and lateral malleolar fixation anchors are seen limiting evaluation in these regions. There is lateral shift of the calcaneus at the calcaneal tuberosity/Achilles tendon insertion. The talar dome cartilage surfaces are within normal limits. Bone marrow signal intensity is within normal limits. LIGAMENTS /TENDONS/SOFT TISSUES: The deltoid ligament complex is intact. The syndesmotic ligament complex is unremarkable. The lateral ligament complex is intact with mild thickening of the anterior talofibular ligament and calcaneal fibular ligament. Plantar fascia is intact. There is minimal fatty infiltration seen within the abductor digiti quinti. There is edema seen within the muscle belly of the abductor hallucis. The visualized flexor and extensor tendons are unremarkable.Mild subcutaneous T2 signal increase is seen over the medial and lateral ankle. 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 Status post calcaneal osteotomy with lateral shift of the Achilles/calcaneal tuberosity. Mild edema within the abductor hallucis muscle belly which may relate to muscle strain versus neurogenic edema. Performing Organization Address City/State/Zipcode Phone Number PACS/VR/DOSE documented in this encounter Visit Diagnoses Diagnosis Acute right ankle pain documented in this encounter Insurance Payer Benefit Plan Subscriber ID Effective Phone Address Type / Group Dates MEDICARE MEDIC[facility] PART [facility]xx [phone] [address] 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
--- OUTSIDE RECORDS SUMMARY | 2019-10-07 11:53 | XMS REPORT | Summary of Care ---
:1990 Author Organization [facility] - [facility] Address [address] [place] [address] Care Team Providers Name Role Phone Wu Slater Unavailable Unavailable Joe Regalado MD Unavailable Arina Escudero AUD Unavailable Unavailable Romero Zamarripa MD Insurance Hmo Romero Zamarripa MD Primary Care Provider Reason for Visit Reason Comments Abdominal Pain ERFU Constipation ERFU Other FU MEDS Refill Request Encounter Details Date Type Department Care Team Description 08/03/2019 Office Visit [facility] Family Addi Staley, Bladder spasm (Primary Dx); Geri Pagan MD JOAN (obstructive sleep apnea); [facility] [address] Bipolar 1 disorder; [facility] [address] Migraine without aura and without status migrainosus, not intractable; [address] Primary insomnia [address] [address] [place], [place] [phone] [address] [phone] Allergies Active Allergy Reactions Severity Noted Date [...] as of this encounter (statuses as of 08/03/2019) Medications Medication Sig Dispensed Refills Start End [...] 1 tablet by 90 tablet 3 Active 39-Uyhu-EQ-DSS mouth daily. 9 90-1-50 mg per tabletIndications: Secondary oligomenorrhea, Patient desires metoprolol succinate Take 0.5 tablets 45 tablet 0 Active XL 25 mg 24 hr by mouth daily. 9 tablet diphenhydrAMINE Take 50 mg by 0 Active (BENADRYL) 25 mg mouth. capsuleIndications: pt stated that she takes it every 8hrs PRN, for allergy PNV Take 1 tablet by 30 tablet 11 Active Comb.Ac60-Xwpi,Carb- mouth daily. 9 FA-DSS 29-1-50 mg TbECIndications: [...] mg mouth daily. 9 tabletIndications: Bladder spasms amoxicillin-clavulan Take 1 tablet by 0 Active [...] mg mouth daily. 9 tabletIndications: Urinary dysfunction traZODONE 50 mg TAKE 1 TABLET BY 90 tablet 3 Active tabletIndications: MOUTH EVERYDAY 9 JOAN (obstructive AT BEDTIME sleep apnea) venlafaxine 37.5 mg Take 1 tablet by 90 tablet 3 Active tabletIndications: mouth 3 (three) 9 Bipolar 1 disorder times daily. SUMAtriptan 50 mg Take 1 tablet by 30 tablet 0 Active tabletIndications: mouth every 15 9 Migraine without (fifteen) aura and without minutes as status migrainosus, needed for not intractable Migraine. oxybutynin chloride Take 1 tablet by 180 tablet 3 Active 5 mg mouth 2 (two) 9 tabletIndications: times daily. Bladder spasm Diabetic Supplies, Use as directed 3 Each 3 Active Miscellan. (OVAL 9 TAPE) MiscIndications: Bladder spasm venlafaxine 37.5 mg Take 1 tablet by 30 tablet 0 08/03/20 Discontinued tabletIndications: mouth 3 (three) 9 19 Bipolar 1 disorder times daily. 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 04/08/2018 Hypogammaglobulinemia 01/05/2018 Lumbosacral spondylosis without myelopathy 08/09/2017 Overview: Added automatically from request for surgery [id number] Tachycardia 02/04/2017 History of DVT (deep vein [...] as of this encounter (statuses as of 08/03/2019) Resolved Problems Problem Noted Date Resolved Date [...] Headache 03/07/2014 06/06/2019 Overview: ICD10 Diagnosis 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 02/18/2014 01/24/2018 documented as of this encounter (statuses as of 08/03/2019) Immunizations Name Administration Dates Next Due Influenza [...] Sign Reading Time Taken Comments Blood Pressure 113/72 08/03/2019 9:28 AM CDT Pulse 85 08/03/2019 9:28 AM CDT Temperature 36.7 C (98.1 F) 08/03/2019 9:28 AM CDT Respiratory Rate 20 08/03/2019 9:28 AM CDT Oxygen Saturation - - Inhaled Oxygen Concentration - - Weight 113.9 kg (251 lb 3.2 oz) 08/03/2019 9:28 AM CDT Height - - Body Mass Index 46.7 06/15/2019 9:12 AM CDT documented in this encounter Progress Notes Addi Staley MD - 08/03/2019 9:20 AM CDTS: 29 y/o female with multiple medical problems is here for medication refills. The patient states that the venlafaxine has helped decrease her migraines a lot. She states that sheused to have migraines about 15 days per month. Now, she has migraine about 3 days per month. The patient states that she is able to take any NSAIDs due to kidney and GI issues, so when she has migraines there are very painful and she is not able to really take anything. She states that she took Imitrex back in 2005. She states that it did not really help treat migraines at the time, but she does notknow what does she was taking. The patient was taking Fioricet in the past, which she states was helping her migraines. She states that the trazodone helps her insomnia a fair amount and she would like another refill forthat. PMH: migraines, insomnia, bladder spasms Social: the patient has a fiancee. She does not smoke CONSTITUTIONAL: no weight loss/gain, + fatigue, no fevers EYES: no vision changes CV: no chest pain RESPIRATORY: no shortness of breath GI: no abdominal pain : + urinary changes MSK: + joint pain, + back pain SKIN: no rashes NEURO: + headaches PSYCH: + depression/anxiety ENDOCRINE: no heat/cold intolerance HEMATOLOGIC: no abnormal bleeding O:BP 113/72 | Pulse 85 | Temp 36.7 C (98.1 F) (Oral) | Resp 20 | Wt 251 lb 3.2 oz (113.9 kg) | LMP 07/04/2019 (Exact Date) | BMI 46.70 kg/m GEN: NAD, healthy appearing SKIN: no visible rashes EYES: EOMI intact ENT: normal appearing oropharynx NECK: no LAD, no thyromegaly CV: RRR, no m/r/g LUNGS: CTA B, no wheezes/crackles, no accessory muscle exam EXTREMITIES: no edema, 2+ pulses b/l PSYCH: appropriate affect, judgement/insight intact, non-pressured speech NEURO: AAAO X 4 A/P: 1) Obesity - Nutritional/Exercise Counseling and Education: - Counseled on diet, exercise, weight control and goals - worsening, patient has gained about 11 pounds in the last 8 weeks 2) R hand pain - poorly controlled, but stable - partial tear of the scapho-lunar ligament - the patient has an appointment with Dr. Marcelino next month 3) Migraine - better controlled - continue venlafaxine TID, given rx for Imitrex 50 mg po prn for abortive treatment - the patient can continue OTC caffeine pills 4) Bladder spasms - overall better - increase dose of oxybutynin from 5 mg po daily to 5 mg bid 5) Insomnia - poorly controlled, but stable - given rx for trazodone 50 mg po qhs prn Plan discussed with patient. Patient understands medications and dosing, discussed side effects, andmedications reconciled. Barriers for compliance assessed and addressed. Counseled patient on treatment plan. Patient voices understanding of the plan and is available on Nexi. The patient was provided the after visit summary (AVS) documenting the visit, pertinent patient instructions and follow-up recommendations. Patient instructed to follow-up if the condition does not improve. Addi Staley MD, MPH, FAAFP Liquefied Natural Gas Plant Operator, Department of Family Medicine Transitional Studies Instructor, [facility] documented in this encounter Plan of Treatment Date Type Specialty Care Team Description 08/10/2019 Office Visit Allergy & Immunology: Paz Self Internal Medicine MD Edgardo [address] [place] [address] [address] [place] [address] 08/13/2019 Office Visit Orthopedic Surgery Nik Alfredo MD [address] [place] [address] 08/16/2019 Office Visit Cardiology Anil Stewart MD [address] [place] [phone] 08/23/2019 Office Visit Rheumatology Neville Pritchett MD [address] [place] [address] [phone] 08/27/2019 Office Visit Gastroenterology Srikanth Hall MD [address] [place] [address] [phone] 08/30/2019 Ancillary Visit Physical Therapy Edgardo Paulino MD [address] [facility] [id number] [place], [place] [address] Hector Willis, PT [address] [place] [address] 08/30/2019 Office Visit Orthopedic Surgery Rudi Lopez MD [address] [place] [address] [phone] 09/11/2019 Office Visit Pulmonary Disease Eli Miller MD [address] [place] [phone] 09/17/2019 Office Visit Orthopedic Surgery Wu Marcelino MD [address] [place], [place] 965133 10/15/2019 Office Visit Family Medicine Addi Staley MD [address] [facility] [address] [place], [place] 511[address] Health Maintenance Due Date Last Done Comments [...] of this encounter Implants Implanted Type Area Fence Builder Device Shelf Model / Identifier Expiration Serial / Date Lot [place], Arthrex Fastak Auture #[id number] - [id number] ANCHOR Right: [employer] 08/14/2018 [id number] / Implanted: Qty: 1 on 04/09/2014 by Nik Alfredo MD at [facility] AT [facility] / [id number] [place], Arthrex Fastak Auture #[id number] - [id number] ANCHOR Left: [employer] 11/13/2018 [id number] / Implanted: Qty: 2 on 03/18/2015 by Nik Alfredo MD at [facility] AT [facility] / [id number] 22fr Alia Gastric-Jejunal Tube Peg [facility] 08/14/2019 ALIA / Implanted: Qty: 1 on 06/08/2018 at [facility] 0250- 22 / [id number] Screw, Small Bone Innovations 6.0mm X50mm Fusifix Triple Thrd #955-4007 - [id number] SCREW Right: Small Bone 955-4007 / Implanted: Qty: 1 on 04/09/2014 by Nik Alfredo MD at [facility] AT [facility] Innovations / Screw, Small Bone Innovations 6.0mm X60mm Fusifix Triple Thrd #955-4009 - [id number] SCREW Right: Small Bone 955-4009 / Implanted: Qty: 1 on 04/09/2014 by Nik Alfredo MD at [facility] AT [facility] Feet Innovations / Screw, Small Bone Innovations 6.0mm X40mm Fusifix Triple Thrd #955-4005 - [id number] SCREW Left: Small Bone 955-4005 / Implanted: Qty: 2 on 03/18/2015 by Nik Alfredo MD at [facility] AT [facility] Foot Innovations / AUTO #1 LOAD #5 [id number] [place], Small Bone Innovations 1.5 X 150mm #960-0000 - [id number] WIRE Small Bone 960-0000 / Implanted: Qty: 2 on 04/09/2014 at [facility] AT [facility] Innovations / K-Wire, Small Bone Innovations 1.5 X 150mm #960-0000 - [id number] WIRE Left: Small Bone 960-0000 / Implanted: Qty: 3 on 03/18/2015 at [facility] AT [facility] Foot Innovations / AUTO #1 LOAD #5 [id number] documented as of this encounter Results Not on filedocumented in this encounter Visit Diagnoses Diagnosis Bladder spasm - Primary Other specified disorders of bladder JOAN (obstructive sleep apnea) Obstructive sleep apnea (adult) (pediatric) Bipolar 1 disorder Bipolar I disorder, most recent episode (or current) unspecified Migraine without aura and without status migrainosus, not intractable Migraine without aura, without mention of intractable migraine without mention of status migrainosus Primary insomnia Persistent disorder of initiating or maintaining sleep documented in this encounter Insurance Payer Benefit Plan Subscriber ID Effective Phone Address Type / Group Dates MEDICARE MEDICARE PART xxxxxxxxxxx 2019-[place] [phone] 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
--- OUTSIDE RECORDS SUMMARY | 2019-10-07 11:55 | XMS REPORT | Summary of Care ---
:1990 Author Organization [facility] - [facility] Address [address] [place] [address] Care Team Providers Name Role Phone Wu Slater Unavailable Unavailable Joe Regalado MD Unavailable Arina Escudero AUD Unavailable Unavailable Romero Zamarripa MD Insurance Hmo Romero Zamarripa MD Primary Care Provider Reason for Visit Reason Comments Abdominal Pain ERFU Constipation ERFU Other FU MEDS Refill Request Encounter Details Date Type Department Care Team Description 08/03/2019 Office Visit [facility] Family Addi Staley, Bladder spasm (Primary Dx); Geri Pagan MD JOAN (obstructive sleep apnea); [facility] [address] Bipolar 1 disorder; [facility] [address] Migraine without aura and without status migrainosus, not intractable; [address], [place] Primary insomnia [address] [address] [place], [place] [phone] [address] [phone] Allergies Active Allergy Reactions Severity Noted Date [...] 1 tablet by 90 tablet 3 Active 90-Vcpj-JY-DSS mouth daily. 9 90-1-50 mg per tabletIndications: Secondary oligomenorrhea, Patient desires metoprolol succinate Take 0.5 tablets 45 tablet 0 Active XL 25 mg 24 hr by mouth daily. 9 tablet diphenhydrAMINE Take 50 mg by 0 Active (BENADRYL) 25 mg mouth. capsuleIndications: pt stated that she takes it every 8hrs PRN, for allergy PNV Take 1 tablet by 30 tablet 11 Active Comb.Nj41-Nfmo,Carb- mouth daily. 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 The patient was provided the after visit summary (AVS) documenting the visit, pertinent patient instructions and follow-up recommendations. Patient instructed to follow-up if the condition does not improve. Addi Staley MD, MPH, FAAFP Gold Blower, Department of Family Medicine Stained Glass Joiner, [facility] documented in this encounter Plan of Treatment Date Type Specialty Care Team Description 08/10/2019 Office Visit Allergy & Immunology: Paz Self Internal Medicine MD Edgardo [address] [place] [address] [address] [place] [address] 08/13/2019 Office Visit Orthopedic Surgery Nik Alfredo MD [address] [place] [address] 08/16/2019 Office Visit Cardiology Anil Stewart MD [address] [place] [phone] 08/23/2019 Office Visit Rheumatology Neville Pritchett MD [address] [place] [phone] 08/27/2019 Office Visit Gastroenterology Srikanth Hall MD [address] [place] [address] [phone] 08/30/2019 Ancillary Visit Physical Therapy Edgardo Paulino MD [address] [facility] [id number] [place], [place] [address] Hector Willis, PT [address] [place] [address] 08/30/2019 Office Visit Orthopedic Surgery Rudi Lopez MD [address] [place] [address] [phone] 09/11/2019 Office Visit Pulmonary Disease Eli Miller MD [address] [place] [phone] 09/17/2019 Office Visit Orthopedic Surgery Wu Marcelino MD [address] [place], [place] [phone] 10/15/2019 Office Visit Family Medicine Addi Staley MD [address] [facility] [address] [place], [place] 3844[address] Health Maintenance Due Date Last Done Comments [...] of this encounter Implants Implanted Type Area Lawn Technician Device Shelf Model / Identifier Expiration Serial / Date Lot [place], Arthrex Fastak Auture #[id number] - [id number] ANCHOR Right: Ar[employer]rex Inc 08/14/2018 [id number] / Implanted: Qty: 1 on 04/09/2014 by Nik Alfredo MD at [facility] AT [facility] / [id number] [place], Arthrex Fastak Auture #[id number] - [id number] ANCHOR Left: [employer] Inc 11/13/2018 [id number] / Implanted: Qty: 2 on 03/18/2015 by Nik Alfredo MD at [facility] AT [facility] / [id number] 22fr Alia Gastric-Jejunal Tube Peg [facility] 08/14/2019 ALIA / Implanted: Qty: 1 on 06/08/2018 at [facility] 0250- 22 / [id number] Screw, Small Bone Innovations 6.0mm X50mm Fusifix Triple Thrd #955-4007 - [id number] SCREW Right: Small Bone 955-4007 / Implanted: Qty: 1 on 04/09/2014 by iNk Alfredo MD at [facility] AT [facility] Innovations / Screw, Small Bone Innovations 6.0mm X60mm Fusifix Triple Thrd #955-4009 - [id number] SCREW Right: Small Bone 955-4009 / Implanted: Qty: 1 on 04/09/2014 by Nik Alfredo MD at [facility] AT [facility] [employer] / Screw, Small Bone Innovations 6.0mm X40mm Fusifix Triple Thrd #955-4005 - [id number] SCREW Left: Small Bone 955-4005 / Implanted: Qty: 2 on 03/18/2015 by Nik Alfredo MD at [facility] [place] AT [facility] Foot Innov[employer] / AUTO #1 LOAD #5 [id number] K-Wire, Small Bone Innovations 1.5 X 150mm #960-0000 - [id number] WIRE Small Bone 960-0000 / Implanted: Qty: 2 on 04/09/2014 at [facility] [place] AT [facility] Innovations / K-Wire, Small Bone Innovations 1.5 X 150mm #960-0000 - [id number] WIRE Left: Small Bone 960-0000 / Implanted: Qty: 3 on 03/18/2015 at [facility] AT [facility] Foot Innov[employer] / AUTO #1 LOAD #5 [id number] documented as of this encounter Results Not [...] MEDICARE PART xxxxxxxxxxx 2019-[place] [phone] 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
[2019-10-07] MEDS ORDERED: FENTANYL CITR 100 MCG/2 ML ONE (12:12)
[2019-10-07] MEDS ORDERED: ONDANSETRON 4 MG/2 ML VIAL ONE (12:12)
[2019-10-07 13:04] LABS: Absolute Lymphocytes (CBC) 1.3 K/uL (0.7-4.9); Basophils % 0.6 % (0-1.3); Hematocrit 32.8 % (36.0-45.0); Lymphocytes % 24.1 % (15.3-44.8); MPV 7.3 fL (7.6-11.3); RBC Red Blood Cell Count 3.76 M/uL (3.86-4.86)
[2019-10-07 13:17] LABS: BUN Blood Urea Nitrogen 4 mg/dL (7-18); Bicarbonate 30 mmol/L (21-32); Glucose Level 120 mg/dL (74-106); Potassium 3.8 mmol/L (3.5-5.1); Sodium Level 137 mmol/L (136-145)
--- NOTE | 2019-10-07 14:30 | RAD REPORT ---
EXAM DESCRIPTION: CT - Chest For Pe Angio - 10/07/2019 2:10 pm CLINICAL HISTORY: SOB , recent surgical procedure [facility] that utilized general anesthesia COMPARISON: No comparisons TECHNIQUE: Dynamically enhanced 3 mm thick images of the chest were obtained during administration o f approximately 150mL Isovue 370 IV contrast. Coronal and oblique MIP reconstruction images were gene rated and reviewed. Exam utilizes a protocol to evaluate the pulmonary arterial tree. All CT scans are performed using dose optimization technique as appropriate and may include automated exposure control or mA/KV adjustment according to patient size. FINDINGS: No pulmonary emboli are identified. The aorta as imaged shows no acute or suspicious finding. No pericardial thickening or effusion. Hazy ground-glass opacification in the lower left lung field is probably atelectasis. Patient has cong g parenchymal opacities in the inferior aspect of the right middle lobe abutting the diaphragmatic pl eura. Slightly more prominent airspace opacities are present in the posterior gutter on the right. No endobronchial lesion or endobronchial process. No pleural effusion or pleural thickening. No mediastinal or hilar suspicious masses. No chest wall masses or abnormal axillary lymphadenopathy. Cardiac silhouette is prominent. No pericardial effusion. IMPRESSION: Minimal infectious or aspiration infiltrate in the posterior inferior right lower lobe. There are patchy atelectasis changes in both lower lung rodriguez as well. No pulmonary emboli.
--- NOTE | 2019-10-07 14:46 | RAD REPORT ---
EXAM DESCRIPTION: US - Extremity Venous Uni Ltd - 10/07/2019 1:17 pm CLINICAL HISTORY: Right arm pain and swelling COMPARISON: None. TECHNIQUE: Real-time sonographic evaluation of the right upper extremity deep venous systems was per formed. FINDINGS: Normal compressibility, flow augmentation, phasic flow and spontaneous flow are identified in the right upper extremity deep venous system. No intraluminal filling defects seen. Internal jugu lar and subclavian veins are normal as well. IMPRESSION: No DVT in the right upper extremity.
[2019-10-07] MEDS ORDERED: HYDROCODONE/APAP 10/325 TAB ONE (14:49)
[2019-10-07] MEDS ORDERED: ONDANSETRON 4 MG (ODT) TAB ONE (14:50)
--- NOTE | 2019-10-07 15:50 | ER ---
Nurse's Notes [facility] Name: Coco Stewart Age: 29 yrs Sex: Female : 1990 Arrival Date: 10/07/2019 Time: 11:32 Bed 6 Private MD: Diagnosis: Aspiration pneumonia s/p intubation two days prior Presentation: 10/07 11:32 Presenting complaint: Patient states: Pt had surgery on Tuesday on her right arm and had sv a piece of bone removed and then yesterday started having increasing swelling to the right hand and numbness has increased. Reports that she was intubated d/t being a long surgery and c/o SOB with exertion and non-productive cough. Transition of care: patient was not received from another setting of care. Onset of symptoms was October 06, 2019. Risk Assessment: Do you want to hurt yourself or someone else? Patient reports no desire to harm self or others. Care prior to arrival: None. 11:32 Method Of Arrival: Ambulatory sv 11:32 Acuity: ARCHIE 3 sv 12:00 Initial Sepsis Screen: Does the patient meet any 2 criteria? No. Patient's initial jl7 sepsis screen is negative. Does the patient have a suspected source of infection? No. Patient's initial sepsis screen is negative. 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 method jl7 Historical: - Allergies: 11:41 Sulfa (Sulfonamide Antibiotics); sv 11:41 Morphine; sv 11:41 Keppra; sv 11:41 Depakote; sv 11:41 Zarontin; sv 11:41 Zanaflex; sv 11:41 Latex, Natural Rubber; sv 11:41 Adhesives; sv - PMHx: 11:41 Seizures; Anxiety; gastroparesis; GERD; gastritis; Migraines; Pseudotumor; Diabetes - sv NIDDM; iron deficiency anemia; spondylosis; Arthritis; Asthma; Bipolar disorder; Hypogamma globunemia; 11:43 POTS; urinary retention; sv - PSHx: 11:41 ankle; foot; Knee surgery; Appendectomy; Cholecystectomy; Ear Tubes; PEG tube; wrist; sv - Immunization history:: Adult Immunizations up to date. - Social history:: Smoking status: Patient/guardian denies using tobacco. - Ebola Screening: : No symptoms or risks identified at this time. Screenin:52 Abuse screen: Denies threats or abuse. Denies injuries from another. Nutritional jl7 screening: No deficits noted. Tuberculosis screening: No symptoms or risk factors identified. Fall Risk None identified. Assessment: 11:53 General: Appears in no apparent distress. uncomfortable, Behavior is calm, cooperative, jl7 appropriate for age. Pain: Complains of pain in right arm Pain does not radiate. Pain currently is 8 out of 10 on a pain scale. Quality of pain is described as aching, numb, Pain began 2-3 days ago. Is continuous. Neuro: Level of Consciousness is awake, alert, obeys commands, Oriented to person, place, time, situation. Cardiovascular: Patient's skin is warm and dry. Respiratory: Airway is patent Respiratory effort is even, unlabored, Respiratory pattern is regular, symmetrical, Breath sounds are diminished in right posterior middle lobe and right posterior lower lobe. Derm: Skin is pink, warm \T\ dry. Musculoskeletal: Swelling present in right hand. 13:00 Reassessment: Patient appears in no apparent distress at this time. No changes from jl7 previously documented assessment. Patient and/or family updated on plan of care and expected duration. Pain level reassessed. Patient is alert, oriented x 3, equal unlabored respirations, skin warm/dry/pink. 14:00 Reassessment: Patient appears in no apparent distress at this time. No changes from jl7 previously documented assessment. Patient and/or family updated on plan of care and expected duration. Pain level reassessed. Patient is alert, oriented x 3, equal unlabored respirations, skin warm/dry/pink. 14:30 Reassessment: Patient reports increased pain to right shoulder, requests pain and ae4 nausea medication .Provider notified, new orders received. 17:14 Reassessment: EMS received report and has taken transfer of care. ae4 Vital Signs: 11:41 BP 115 / 91; Pulse 93; Resp 20; Temp 98.1; Pulse Ox 100% ; Weight 109.77 kg; Height 5 sv ft. 2 in. (157.48 cm); Pain 8/10; 12:30 BP 105 / 55; Pulse 72; Resp 16 S; Pulse Ox 100% on R/A; jl7 13:30 BP 100 / 58; Pulse 72; Resp 16; Pulse Ox 100% ; jl7 14:30 BP 117 / 74; Pulse 80; Resp 16 S; Pulse Ox 100% on R/A; jl7 15:15 BP 106 / 65; Pulse 70; Resp 16; Pulse Ox 100% ; jl7 11:41 Body Mass Index 44.26 (109.77 kg, 157.48 cm) sv ED Course: 11:32 Patient arrived in ED. mr 11:36 Triage completed. sv 11:41 Arm band placed on. sv 11:42 Juan Miguel Gregg MD is Attending Physician. kdr 11:43 Mathew Garcia RN is Primary Nurse. jl7 11:52 Patient has correct armband on for positive identification. Placed in gown. Bed in low jl7 position. Call light in reach. Side rails up X 1. 12:00 Inserted saline lock: 22 gauge in left forearm, using aseptic technique. jl7 13:17 US Extremity Venous Unilateral Ltd In Process Unspecified. EDMS 13:18 Ultrasound completed. Patient tolerated well. sg3 14:10 CT Chest For PE Angio In Process Unspecified. EDMS 14:11 CT completed. Patient tolerated procedure well. Patient moved back from CT. bq 17:13 No provider procedures requiring assistance completed. Patient transferred, IV remains ae4 in place. Administered Medications: 12:20 Drug: Zofran 4 mg Route: IVP; Site: right forearm; jl7 12:35 Follow up: Response: No adverse reaction jl7 12:22 Drug: fentaNYL (PF) 50 mcg Route: IVP; Site: right forearm; jl7 12:35 Follow up: Response: No adverse reaction; Pain is decreased jl7 14:50 Drug: Zofran 4 mg Route: PO; jl7 15:00 Follow up: Response: No adverse reaction jl7 14:50 Drug: [place] 10 mg-325 mg 1 tabs Route: PO; jl7 15:30 Follow up: Response: No adverse reaction; Pain is decreased jl7 16:20 Drug: Clindamycin 900 mg Route: IVPB; Infused Over: 30 mins; Site: left forearm; ae4 16:50 Follow up: Response: No adverse reaction; IV Status: Completed infusion jl7 Outcome: 15:48 ER care complete, transfer ordered by . kdr 17:14 Transferred by ground EMS to [facility]. ae4 17:14 Condition: stable 17:14 Instructed on the need for transfer, Demonstrated understanding of instructions. 17:15 Patient left the ED. ae4 Signatures: Dispatcher [employer] EDKaylee Bella, RN Juan Miguel Carl MD MD kdr Rivera, Mary mr Divya Viera Jahala, RN RN jl7 Marii Timmons 3 Devyn Juarez RN RN ae4
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
[2019-10-07] MEDS ORDERED: CLINDAMYCIN 900MG/D5W 900 MG/50 ML IVPB IV ONE (16:14)
[2019-10-07 19:29] VITALS: TEMP 98.1; O2SAT 100
[2019-10-07 19:35] VITALS: BP 106/65
== END 2019-10-07 17:15 | disposition short-term general hospital (02) ==
LOC: ER 11:23
DX: J95.4 Chemical pneumonitis due to anesthesia (principal); Z88.2 Allergy status to sulfonamides; Z88.5 Allergy status to narcotic agent; Z88.8 Allergy status to other drugs, medicaments and biological substances; Z91.040 Latex allergy status; Z91.048 Other nonmedicinal substance allergy status
CPT/HCPCS: 96365; 85025; 80048; 36415; 71275; 93971; 96375; 99285; Q9967; J3010; J2405

== ENCOUNTER 2023-01-16 12:00 | Emergency (ER) | payer OTHER ==
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
--- OUTSIDE RECORDS SUMMARY | 2023-01-16 13:01 | XMS REPORT | Continuity of Care Document ---
:1990 Author Organization [facility] t Address [address] [place] [address] Care Team Providers Name Role Phone Kleber Meza MD Primary Care Physician [phone] PAZ HARE Attending Clinician Unavailable GALLO MCKEON Attending Clinician Unavailable NIK CHARLES Attending Clinician Unavailable RAGINI SNELL Attending Clinician Unavailable ANIL WRIGHT Attending Clinician Unavailable Anil Wright MD Attending Clinician Doctor Unassigned, Goehner Attending Clinician Unavailable VELMA LINTON Attending Clinician Unavailable Velma Linton MD Attending Clinician Rommel HERNANDEZ, Antoine Reynoso Attending Clinician Unavailable WU MARCELINO Attending Clinician Unavailable Chari BAE, Wu Attending Clinician Lake BAIN Attending Clinician Unavailable Lake BAIN Attending Clinician Unavailable Ananya BAE, Paz Reynoso Attending Clinician Joseph Edwards PA-C Attending Clinician Edmund Lorenzo MD Attending Clinician JOSEPH EDWARDS Attending Clinician Unavailable ALFREDO REYNOLDS Attending Clinician Unavailable Romero Miller MD Attending Clinician Nik Charles MD Attending Clinician Delilah Polo Attending Clinician Unknown, Attending Attending Clinician Unavailable 2, Krista-Vl Infusion Chair Attending Clinician Unavailable Alfredo Reynolds DO Attending Clinician Jimbo Jni Attending Clinician JIMBO MARTINEZ Attending Clinician Unavailable Karel Felix MD Attending Clinician [phone] ROMERO MILLER Attending Clinician Unavailable ILYA CARDENAS Attending Clinician Unavailable Derik Werner Attending Clinician DERIK VALENTINE Attending Clinician Unavailable DAMARIS BURNS Attending Clinician Unavailable Damaris Burns MD Attending Clinician Dipak Attending Clinician Unavailable DEBBIE ALCANTARA Attending Clinician Unavailable Brian BAE, Debbie Attending Clinician JAY ENCISO Attending Clinician Unavailable Fernie RESISTANCE BRAZER, Jay Attending Clinician Camilo Dillard Attending Clinician Roslyn Narvaez RN Attending Clinician Unavailable Jenny Chan OT Attending Clinician Unavailable 1, Krista-Vl Infusion Chair Attending Clinician Unavailable Nayana Badillo MD Attending Clinician Debbie Velazquez MD Attending Clinician Ortho, Vls-Occup Therapy-Walkin Attending Clinician Unavaila NAYANA Henning Attending Clinician Unavailable Lyla Lopez MD Attending Clinician LYLA LOPEZ Attending Clinician Unavailable Wei Vicente MD Attending Clinician Gallo Mckeon MD Attending Clinician ADELFO COYLE Attending Clinician Unavailable Pineda Grace MD Attending Clinician KAREL FELIX Attending Clinician Unavailable Vasile Cervantes DO Attending Clinician Zaira Shepherd Attending Clinician ZAIRA JENKINS Attending Clinician Unavailable SRIKANTH RODRIGUEZ Attending Clinician Unavailable 4, Krista-Vl Infusion Chair Attending Clinician Unavailable Srikanth Rodriguez MD Attending Clinician GABINO FUNES Attending Clinician Unavailable Gabino Funes MD Attending Clinician 5, Krista-Vl Infusion Chair Attending Clinician Unavailable JUANCHO SAPP Attending Clinician Unavailable 3, Krista Adult Infusion Nurse Attending Clinician Unavailable Beny Thomas MD Attending Clinician Jhony Suresh DO Attending Clinician Vls-Lab Attending Clinician Unavailable EL MILLIGAN Attending Clinician Unavailable El Milligan MD Attending Clinician WEI VICENTE Attending Clinician Unavailable Diamond Cotto MD Attending Clinician DIAMOND COTTO Attending Clinician Unavailable Srikanth Bahena MD Attending Clinician BRIANNA CHAND Attending Clinician Unavailable EVAN DALEY Attending Clinician Unavailable Evan Daley MD Attending Clinician LAURA LANTIGUA Attending Clinician Unavailable Laura Lantigua MD Attending Clinician Adelfo Coyle MD Attending Clinician Bel Brewer MD Attending Clinician [phone] Mannie CASTILLO, Brianna Attending Clinician ADELFO VARGAS Attending Clinician Unavailable Adelfo Vargas MD Attending Clinician ROMÁN RUGGIERO Attending Clinician Unavailable ROMÁN RUGGIERO Attending Clinician Unavailable Pcp-Lab Attending Clinician Unavailable Dennis Perla MD Attending Clinician DENNIS PERLA Attending Clinician Unavailable 3, Krista-Vl Infusion Chair Attending Clinician Unavailable Trudy Stanford Attending Clinician Evangelina PT, Vazquez Attending Clinician Unavailable Linda Bhakta MD Attending Clinician Dariana Dugan MD Attending Clinician Only, Mir Test Attending Clinician Unavailable Srikanth Rey MD Attending Clinician SRIKANTH REY Attending Clinician Unavailable ANGEL VELEZ Attending Clinician Unavailable Pgy3 Attending Clinician Unavailable Angel Velez MD Attending Clinician LINDA BHAKTA Attending Clinician Unavailable Jacqui Brian Attending Clinician Ami Poole Attending Clinician Minerva PHD, Neva Reynoso Attending Clinician Celia Shaikh OT Attending Clinician Unavailable TIFFANY MARTIN Attending Clinician Unavailable Tiffany Orr Attending Clinician Yuly Zhu RN Attending Clinician Unavailable UNKNOWN, ATTENDING Attending Clinician Unavailable DAVID DELA CRUZ Attending Clinician Unavailable David Brand Attending Clinician Luz Mar MD Attending Clinician Cory Ferris MD Attending Clinician [phone] CORY FERRIS Attending Clinician Unavailable Jama Willams MD Attending Clinician JAMA WILLAMS Attending Clinician Unavailable LYRIC SORIANO Attending Clinician Unavailable Judd Downs MD Attending Clinician JUDD DOWNS Attending Clinician Unavailable Kodi HESTER, Giuseppe Humphrey Attending Clinician Unavailable JESS SERNA Attending Clinician Unavailable Shaji Nunez MD Attending Clinician SHAJI NUNEZ Attending Clinician Unavailable Osmar Lowe MD Attending Clinician 2, Krista Adult Infusion Nurse Attending Clinician Unavailable Joe BAE, Christel Whitten Attending Clinician CHRISTEL DIAZ Attending Clinician Unavailable Venus Martins MD Attending Clinician Kehinde BAE, Fito Attending Clinician Jihan Woody MD Attending Clinician Jennie BAE, Maycol Attending Clinician [phone] MAYCOL THRASHER Attending Clinician Unavailable Charan HERNANDEZ, Pedro Luis Attending Clinician Unavailable Kleber Meza MD Attending Clinician Franky Cardenas MD Attending Clinician FRANKY CARDENAS Attending Clinician Unavailable Eladio Velasquez DO Attending Clinician Omaghomi RESISTANCE BRAZER, Omayemi Attending Clinician HARITHA LEMONAYEMGeo Attending Clinician Unavailable LYDIA PICKENS Attending Clinician Unavailable Aston Johnson MD Attending Clinician VIC BERMEO Attending Clinician Unavailable Mert Willis PT Attending Clinician Unavailable Reji Valdez MD Attending Clinician Meera Chun RN Attending Clinician Unavailable Mohan [facility] Resident Attending Clinician Unavailable Shilpa BAE, Marii Gleason Attending Clinician Cinda Hendrix RN, Lisa Attending Clinician Unavailable Andrew GUERREROPSherin Attending Clinician Keira Moulton Attending Clinician Lab, Sleep Attending Clinician Unavailable Gwyn Gilmore MD Attending Clinician Only, [facility] Test Attending Clinician Unavailable Shelia Taylor Attending Clinician SHELIA QUINTANA Attending Clinician Unavailable SHERIN OMRALES Attending Clinician Unavailable ASTON JOHNSON Attending Clinician Unavailable Laura Obrien RN Attending Clinician Unavailable Jenny Martinez Attending Clinician Visit/Fp, [facility]-chp Nurse Attending Clinician Unavailable SUZI GILLIAM Attending Clinician Unavailable Suzi Gilliam DNP Attending Clinician KATERYNA PHELAN Attending Clinician Unavailable Zhane GUERREROP, Kateryna Hill Attending Clinician KINGSTON, JESS Attending Clinician Unavailable Joni PT, Gely N Attending Clinician Unavailable Lydia Pickens MD Attending Clinician WILLIAM BLANKENSHIP Attending Clinician Unavailable Zabrina Alejandra RN Attending Clinician Unavailable Tobi Raymond Attending Clinician RACHEL VELASQUEZ Attending Clinician Unavailable RACHEL VELASQUEZ Attending Clinician Unavailable KLEBER MEZA Attending Clinician Unavailable Rafael DUARTE, Tamela Attending Clinician TAMELA HALL Attending Clinician Unavailable Cecilio Thurman MD Attending Clinician Romana Owen MD Attending Clinician Brianna Natarajan MD Attending Clinician CAMILO WYMAN Attending Clinician Unavailable Kingston RD, Jess Attending Clinician SAM MASSEY Attending Clinician Unavailable William lBankenship MD Attending Clinician Nathaniel Crawford CNM Attending Clinician SINDI SHEPARD Attending Clinician Unavailable Valerie Alvares Attending Clinician Sindi Shepard MD Attending Clinician Dennis Miller MD, Brendan Attending Clinician [phone] Paz Kohler MD Attending Clinician PAZ KOHLER Attending Clinician Unavailable [facility] Attending Clinician Unavailable NATHANIEL CRAWFORD Attending Clinician Unavailable MICHAEL PISANO Attending Clinician Unavailable Aliya BAE, Michael Mo Attending Clinician José Miguel HERNANDEZ, Genia Attending Clinician Unavailable Lexy Beatty Attending Clinician Unavailable Therapy-Walkin, Bmz-Ci-Zacqh Attending Clinician Unavailable Abdoul Duarte DO Attending Clinician Unavailable Jonna HERNANDEZ, Shelia Ramirez Attending Clinician Unavailable YEN LINCOLN Attending Clinician Unavailable James Haile MD Attending Clinician MAURICE WONG Attending Clinician Unavailable JACQUI HAHN Attending Clinician Unavailable Room, Pcp Ortho Cast Attending Clinician Unavailable DEION LARIOS Attending Clinician Unavailable Ilya Cardenas MD Attending Clinician [phone] Jeannette Pozo RN Attending Clinician Unavailable FORTINO GARNETT Attending Clinician Unavailable SERGE GAMA Attending Clinician Unavailable EbSerge [place] Attending Clinician Zoran Singer MD Attending Clinician Mario Puente MD Attending Clinician Celso Gomez Attending Clinician Unavailable MERT ARZOLA Attending Clinician Unavailable MURPHY BARRIOS Attending Clinician Unavailable CAROLINA THOMPSON Attending Clinician Unavailable CIRILO ALAMO Attending Clinician Unavailable WU MARCELINO Admitting Clinician Unavailable Wu Marcelino MD Admitting Clinician Lake BAIN Admitting Clinician Unavailable ANIL WRIGHT Admitting Clinician Unavailable DAMARIS BURNS Admitting Clinician Unavailable Dipak Admitting Clinician Unavailable NAYANA BADILLO Admitting Clinician Unavailable GABINO FUNES Admitting Clinician Unavailable VELMA LINTON Admitting Clinician Unavailable ADELFO VARGAS Admitting Clinician Unavailable ROMÁN RUGGIERO Admitting Clinician Unavailable SRIKANTH RODRIGUEZ Admitting Clinician Unavailable JAMA WILLAMS Admitting Clinician Unavailable JOHN PEÑA Admitting Clinician Unavailable SHAJI NUNEZ Admitting Clinician Unavailable FRANKY CARDENAS Admitting Clinician Unavailable Romero Miller Admitting Clinician Unavailable TAMELA HALL Admitting Clinician Unavailable TIFFANY MARTIN Admitting Clinician Unavailable LINDA BHAKTA Admitting Clinician Unavailable CAMILO WYMAN Admitting Clinician Unavailable SINDI SHEPARD Admitting Clinician Unavailable Sindi Shepard MD Admitting Clinician NIK CHARLES Admitting Clinician Unavailable MICHAEL PISANO Admitting Clinician Unavailable ILYA CARDENAS Admitting Clinician Unavailable SERGE GAMA Admitting Clinician Unavailable Celso Gomez Admitting Clinician Unavailable WOJCIECH LEMON Admitting Clinician Unavailable CORY FERRIS Admitting Clinician Unavailable DERIK VALENTINE Admitting Clinician Unavailable MERT ARZOLA Admitting Clinician Unavailable CIRILO ALAMO Admitting Clinician Unavailable Payers Payer Name Policy Type Policy Number Effective Date Expiration Date S rangel [facility] [id number] [facility] [id number] 2021 HMO 00:00:00 MEDICAID [facility] [id number] 2021 00:00:00 [facility] MEDICARE [id number] COMPLETE CHOICE 00:00:00 [facility] [id number] 2021 00:00:00 [facility] DUAL [id number] 2021 COMP HMO D SNP 00:00:00 [facility] - [id number] [facility] COMMUNITY PLAN - DUAL ELIGIBLE (MEDICARE REPLACEMENT/ADVANTAG E - HMO) [employer] DUAL [id number] SNP O MEDICARE PART A \\T\\ [id number] 2019 B - MEDICARE 00:00:00 [facility] - MEDICARE [id number] COMPLETE (MEDICARE REPLACEMENT HMO) [facility] PLAN [id number] 2021 MEDICARE SNP 00:00:00 [employer] DUAL [id number] COORDINATION HMO SNP 00:00:00 Problems Condition Condition Condition Status Onset Resolution Last Treating Co mments Source Name Details Category Date Date Treatment Clinician Date Left wrist Left wrist Disease Active Overview : [facility] sprain, sprain, 2-07 [facility] ity o f sequela sequela 00:00: g of this note Medical might be Branch different from the original. Added automatic ally from request for surgery [id number] Migraine Migraine Problem Active 2021-11 [place] [facility] with aura with Aura 1-04 Fami ly 00:00: Practic 00 e Chronic Chronic Problem Active 2021-11 [facility] insomnia Insomnia 1-04 Family 00:00: Practic 00 e Type 2 Type 2 Problem Active [facility] diabetes Diabetes 8-04 Family mellitus Mellitus 00:00: Practi c 00 e Cobalamin Cobalamin Problem Active [facility] deficiency Deficiency 8-04 [facility] 00:00: Practic 00 e Transforme Transforme Problem Active V illage d migraine d Migraine 8 [facility] 00:00: Practic 00 e Benign Benign Problem Active [facility] intracrani Intracrani 804 [facility] al al 00:00: Practic hypertensi Hypertensi 00 e on on Asthma Asthma Problem Active [facility] without without 8-04 Family status Status 00:00: Practic asthmaticu Asthmaticu 00 e s s Gastropare Gastropare Problem Active V illage sis sis 8-04 Family syndrome Syndrome 00:00: Practi c 00 e Chronic Chronic Problem Active [facility] low back Low Back 8-04 Family pain Pain 00:00: Practic 00 e Hyperglyce Hyperglyce Problem Active V illage [place] due to [place] Due to 8 [facility] type 2 Type 2 00:00: Practic diabetes Diabetes 00 e mellitus Mellitus Left wrist Left wrist Disease Active U nivers tendonitis tendonitis 1-18 it y of 00:00: [place] [facility] Left wrist Left wrist Disease Active U nivers pain pain 1-18 ity of 00:00: [place] [facility] Hx of Hx of Disease Active Univers Clostridiu Clostridiu 4-21 it y of m m 00:00: [place] difficile difficile 00 Medi stan infection infection Bran ch History of History of Disease Active U nivers recurrent recurrent 4-21 ity of UTIs UTIs 00:00: [place] 00 [facility] Gross Gross Disease Active 2020-0 [facility] hematuria hematuria 4-21 ity of 00:00: [place] 00 [facility] Urinary Urinary Disease Active 2020-0 [facility] retention retention 4-21 ity of 00:00: [place] 00 [facility] Urinary Urinary Disease Active 2020-0 [facility] incontinen incontinen 4-21 it y of ce ce 00:00: [place] 00 [facility] Self-cheyenne Self-cheyenne Disease Active 2020-0 U nivers terizes terizes 4-21 ity of urinary urinary 00:00: [place] bladder bladder 00 Medical Branch Candidal Candidal Disease Active 2020-0 Unive rs intertrigo intertrigo 4-21 it y of 00:00: [place] 00 [facility] Abnormal Abnormal Disease Active 2019- Unive rs vaginal vaginal 4-21 ity of bleeding bleeding 00:00: [place] 00 [facility] Moderate Moderate Disease Active 2020-0 Unive rs persistent persistent 4-21 it y of asthma asthma 00:00: [place] 00 [facility] Allergies Allergies Disease Active 2020- Uni vers 4-21 ity of 00:00: [place] 00 [facility] Chronic Chronic Disease Active 2020-0 [facility] rhinitis rhinitis 4-21 ity of 00:00: [place] 00 [facility] Neuropathi Neuropathi Disease Active 2020-0 U nivers c pain c pain 4-21 ity of 00:00: [place] 00 [facility] Hx of Hx of Disease Active 2020-0 [facility] Clostridiu Clostridiu 4-21 it y of m m 00:00: [place] difficile difficile 00 Medi stan infection infection Bran ch Multiple Multiple Disease Active 2020-0 Unive rs episodes episodes 4-20 ity of of of 00:00: [place] hypoglycem hypoglycem 00 Me dical ia ia Branch Sprain of Sprain of Disease Active 2020- Uni vers left left 3-20 ity of ankle, ankle, 00:00: [place] unspecifie unspecifie 00 Me dical d d Branch ligament, ligament, initial initial encounter encounter Stiffness Stiffness Disease Active 2020- Uni vers of right of right 1-15 ity of wrist wrist 00:00: [place] joint joint 00 Medical Branch Migraines Migraines Disease Active 2019 Uni vers 7-24 ity of 00:00: [place] 00 [facility] History of History of Disease Active 2019- U nivers heat heat 7-24 ity of stroke stroke 00:00: [place] 00 [facility] Candidiasi Candidiasi Disease Active 2019- U nivers s of s of 6-16 ity of breast breast 00:00: [place] 00 [facility] Reflux Reflux Disease Active Univers gastritis gastritis 6-16 ity of 00:00: [place] [facility] Malfunctio Malfunctio Disease Active U nivers n of n of 5-22 ity of jejunostom jejunostom [place] tube y tube 00 [facility] Scapholuna Scapholuna Disease Active U nivers te te 5-08 ity of ligament ligament 00:00: [place] injury injury 00 Medical with no with no Branch instabilit instabilit y, right, y, right, subsequent subsequent encounter encounter Abdominal Abdominal Disease Active 2017-[address] [facility] [address] [facility] Gastropare Gastropare Disease Active 2017-[address] sis sis [facility] PEG PEG Disease Active 2017-[address] [facility] [address] (percutane (percutane 0-30 Marika kes ous ous 00:00: Medical endoscopic endoscopic 00 Ce nter gastrostom gastrostom y) status y) status Nausea Nausea Disease Active 2017-[address] [facility] [address] [facility] Generalize Generalize Disease Recurre Univers d anxiety d anxiety nce 7-24 ity of disorder disorder 00:00: [place] 00 [facility] Medical Medical Disease Active [facility] device device 5-26 it[place] of associated associated [place] with with 00 Medical adverse adverse Branch incidents incidents Hypogammag Hypogammag Disease Recurre Univers lobulinemi lobulinemi nce 2-22 it y of a a 00:00: [place] 00 [facility] Lumbosacra Lumbosacra Disease Active Overview : Univers l l 9-26 Formattin ity of spondylosi spondylosi 00:00: g of this [place] s without s without 00 note Medi stan myelopathy myelopathy might be Branch different from the original. Added automatic ally from request for surgery [id number] Hematochez Hematochez Disease Active [facility] 04-12 [facility] 00:00: 00 Medicin e Arm DVT Arm DVT Disease Active [facility] (deep (deep 5-30 College venous venous 00:00: of thromboemb thromboemb 00 Me dicin olism), olism), e chronic chronic Nausea and Nausea and Disease Active [facility] vomiting vomiting 5-30 Colleg e 00:00: of 00 Medicin e History of History of Disease Active U nivers DVT (deep DVT (deep 3-24 ity of vein vein 00:00: [place] thrombosis thrombosis 00 Me dical ) ) Branch Functional Functional Disease Active 2015-11 [facility] abdominal abdominal 1-12 [facility] pain pain 00:00: of syndrome syndrome 00 Medici n e Nausea Nausea Disease Active [facility] 9-12 College 00:00: of 00 Medicin e Unintentio Unintentio Disease Active [facility] nal weight nal weight 9-12 Co llege loss loss 00:00: of 00 Medicin e Gastrostom Gastrostom Disease Active [facility] y in place y in place 9-12 Co llege 00:00: of 00 Medicin e History of History of Disease Active [facility] jejunostom jejunostom 9-12 Co llege y tube y tube 00:00: of placement placement 00 Medi corine e Obesity Obesity Disease Active [facility] (BMI (BMI 9-12 College 35.0-39.9 35.0-39.9 00:00: of without without 00 Medicin comorbidit comorbidit e y) y) Iron Iron Disease Active [facility] deficiency deficiency 3-04 it y of anemia due anemia due 00:[place] to dietary to dietary 00 Me dical causes causes Branch Chronic Chronic Disease Active 2014-11 [facility] gastritis gastritis 0-22 ity of without without 00:00: [place] bleeding bleeding 00 Medica l Branch Morbid Morbid Disease Recurre Univers obesity obesity nce 6-10 ity of 00:00: [place] 00 [facility] Gastropare Gastropare Disease Active U echo sis sis 1-01 ity of 00:00: [place] 00 [facility] Sleep Sleep Disease Active [facility] apnea in apnea in 8-27 ity of adult adult 00:00: [place] 00 [facility] Bipolar 1 Bipolar 1 Disease Active Uni vers disorder, disorder, 8-24 it[facility] of depressed depressed [place] [facility] Epilepsy Epilepsy Disease Active Unive rs 7-27 ity of 00:00: [place] 00 [facility] Insomnia Insomnia Disease Active Unive rs 8-24 ity of 00:00: [place] 00 [facility] Urinary Urinary Disease Active [facility] retention retention ity of with with [place] incomplete incomplete Me dical bladder bladder Branch emptying emptying Leiomyoma Leiomyoma Disease Active Uni vers of uterus, of uterus, it y of unspecifie [place]specifie [place] d [facility] Allergies, Adverse Reactions, Alerts Allergy Allergy Status Severity Reaction(s) Onset Inactive Treating Comm ents Source Name Type Date Date Clinician Valproic Propensi Active [facility] Acid ty to 07-01 Health adverse 00:00: reaction 00 s Levetira Propensi Active [facility] cetam ty to 07-01 Health adverse 00:00: reaction 00 s Morphine Propensi Active [facility] ty to 07-01 Health adverse 00:00: reaction 00 s Sulfate Propensi Active [facility] ty to 07-01 Health adverse 00:00: reaction 00 s Tizanidi Propensi Active [facility] ne ty to 07-01 Health adverse 00:00: reaction 00 s Ethosuxi Propensi Active [facility] mide ty to 07-01 Health adverse 00:00: reaction 00 s SULFATE DRUG Active Unknown-Cmnt Uni vers ION INGREDI 07-01 ity of 00:00: 00 Medical Branch Adhesive Propensi Active Method i [facility] ty to 07-06 st icones adverse 00:00: Hospita reaction 00 l s to drug Divalpro Propensi Active Method i ex ty to 07-06 st adverse 00:00: [facility]osp[facility] reaction 00 l s to drug Levetira Propensi Active Method i cetam ty to 07-06 st adverse 00:00: [facility]osp[facility] reaction 00 l s to drug Latex Propensi Active Methodi ty to [facility] st adverse 00:00: Hospita reaction 00 l s to drug Morphine Propensi Active Method i ty to 8[facility] adverse 00:00: Hospita reaction 00 l s to drug Sulfa Propensi Active Methodi (Sulfona ty to 07-06 st mide adverse 00:00: Hospita Antibiot reaction 00 l ics) s to drug Tizanidi Propensi Active 2018-0 Method i ne ty to 07-06 st adverse 00:00: Hospita reaction 00 l s to drug Ethosuxi Propensi Active 2019-0 Method i mide ty to 07-06 st adverse 00:00: Hospita reaction 00 l s to drug VENOM-WA DRUG Active ITCHING 2018-0 Univers SP INGREDI 3- ity of 00:00: [place] 00 [facility] Branch Venom-Wa Propensi Active Itching 0 Unive rs sp ty to 3- ity of adverse 00:00: [place] reaction 00 Medical s Branch Sulfa DA Active PR 2017-0 [facility] (Sulfona 08-10 [facility] mide 00:[facility]: d Antibiot 00 Medical ics) Center morphine DA Active PR 2018-0 [facility] 08[facility]10 [facility] divalpro DA Active PR 2017-0 [facility] ex 08-10 [facility] sodium 00:00: d [facility] ethosuxi DA Active PR 2017-0 [facility] mide 08-10 [facility]: d [facility] adhesive DA Active PR 2018-0 [facility] 08-10 [facility] 00:[facility]: d [facility] tizanidi DA Active PR 2018-0 [facility] ne 08-10 [facility] 00:[facility]: d [facility] levetira DA Active SV 2017-0 [facility] cetam 08-10 [facility] 00:[facility]: d [facility] latex DA Active PR 2018-0 [facility] 08-10 [facility]: d [facility] Sulfa DA Active PR RASH, FLU [facility] (Sulfona LIKE 08-10 [facility] mide SYMPTOMS 00:00: d Antibiot 00 Medical ics) Center morphine DA Active PR RASH, VOMIT, 0 HC A FAINT, drops 08-10 [facility]ando bp 00:00: d 00 [facility] divalpro DA Active PR HAIR FALL [facility] ex OUT 08-10 [facility] sodium 00:00: d 00 [facility] ethosuxi DA Active PR RASH 2017-0 [facility] mide 08-10 [facility] 00:[facility]: d [facility] adhesive DA Active PR HIVES 2017-0 [facility] 08-10 [facility] 00:[facility]: d 00 [facility] tizanidi DA Active PR MIGRAINES, 2017-0 [facility] ne N/V 08-10 [facility] 00:00: d 00 [facility] [place] levetira DA Active SV RAGE, [facility] cetam DEPRESSIVE 08-10 [facility] n THOUGHTS 00:00: d Medical Center latex DA Active PR RASH 2017- [facility] 08-10 [facility] 00:00: d 00 [facility] [place] Sulfa DA Active PR 2016-0 [facility] (Sulfona 07-14 [facility] mide 00:00: [place] Antibiot 00 [facility] morphine DA Active PR HCA 07-14 Clear 00:00: Nunes 00 [facility] divalpro DA Active PR H[facility] ex 07-14 Clear sodium 00:00: Nunes 00 [facility] ethosuxi DA Active PR [facility] mide 8 Clear 00:00: Nuens [facility] adhesive DA Active PR [facility] 07-14 Clear 00:00: Nunes 00 [facility] tizanidi DA Active PR [facility] ne 07-14 Clear 00:00: Nunes 00 [facility] levetira DA Active SV [facility] cetam 07-14 Clear 00:00: Nunes 00 [facility] latex DA Active PR [facility] 07-14 Clear 00:00: Nunes 00 [facility] Tizanidi Drug Active Other (See Severe [facility] Allergy Comments) 6-05 headaches Dea es 00:00: GI pains Medical 00 [place] Ethosuxi Drug Active Itching, [facility] 00:[facility]: Medical 00 [place] Adhesive Drug Active Itching, 2017 Paper/leann [facility] Allergy Other (See 6-05 stic tape Marika kes Comments) 00:00: causes Medical 00 blisters! Center Pt states "hypafix" brand works well! Divalpro Drug Active Other (See Mood [facility] ex Allergy Comments) 6-05 swingsHai Dea es 00:00: r Medical 00 [place] Center rs Levetira Drug Active Other (See Caused [facility] cetam Allergy Comments) 6-05 suicidal Luke s 00:00: thoughts Medical 00 and mood Center swings Latex Drug Active Hives [facility] 00[facility] Medical 00 Center Morphine Drug Active Nausea And 2017-[address] Allergy Vomiting, 6-05 [facility] Rash, Other 00:00: Medic al (See 00 Center Comments) Onion Drug Active Other (See Mouth [facility] Allergy Comments) 6-05 blisters Luke s 00:00: Medical 00 Center Sulfa Drug Active Hives, [facility] (Sulfona Allergy Diarrhea, 6-05 [facility] mide Nausea And 00:00: Medica l Antibiot Vomiting 00 Center ics) Tomato Propensi Active Other (See Mouth [facility] (Solanum ty to Comments) 6-05 blisters Dea es Lycopers adverse 00:00: Medical icum) reaction 00 Center s Adhesive Drug Active Itching, Paper/leann [facility] Allergy Other (See 6 stic tape Marika kes Comments) 00:00: causes Medical 00 blisters! Center Pt states "hypafix" brand works well! Sulfa Drug Active Hives, [facility] (Sulfona Allergy Diarrhea, 6-05 [facility] mide Nausea And 00:00: Medica l Antibiot Vomiting 00 Center ics) ADHESIVE Drug Active ITCHING Univers Class 6-05 ity of 00:00: [place] 00 Medical Branch ONION DRUG Active Unknown-Cmnt Univ ers INGREDI 3-25 ity of 00:00: [place] 00 Medical Branch TOMATO DRUG Active Unknown-Cmnt Univ ers INGREDI 3-25 ity of 00:00: [place] 00 Medical Branch Onion Propensi Active Unknown - Sensitivi Un otoniel ty to See comments 3-25 ty ity of adverse 00:00: [place] reaction 00 Medical s Branch Tomato Propensi Active Unknown - Sensitivi Un otoniel ty to See comments 3-25 ty ity of adverse 00:00: [place] reaction 00 Medical s Branch SULFASAL DRUG Active Hives Univers AZINE INGREDI 07-22 ity of 00:00: [place] 00 Medical Branch Sulfasal Propensi Active Hives Univer s azine ty to 07-22 ity of adverse 00:00: [place] reaction 00 Medical s Branch Adhesive Propensi Active [facility] Tape ty to 07-22 College adverse 00:00: of reaction 00 Medicin s to e substanc e Depakote Propensi Active [facility] ty to [address] adverse 00:00: of reaction 00 Medicin s to e drug Latex Propensi Active [facility] ty to 07-22 [place] adverse 00:00: of reaction 00 Medicin s to e substanc e Opioid Propensi Active [facility] Analgesi ty to [address] [place] [address] cs adverse 00:00: of reaction 00 Medicin s to e drug Sulfa Propensi Active [facility] Antibiot ty to [address] [place] [address] ics adverse 00:00: of reaction Medicin s to e drug Opioid Propensi Active [facility] Analgesi ty to [address] [place] [address] cs adverse 00:00: of reaction 00 Medicin s to e drug Tizanidi Propensi Active [facility] ne Hcl ty to 07-22 [place] adverse 00:00: of reaction 00 Medicin s to e drug Zarontin Propensi Active [facility] ty to [address] [place] [address] adverse 00:00: of reaction Medicin s to e drug TIZANIDI DRUG Active ITCHING Univers NE HCL INGREDI 05 ity of 00:00: [place] [facility] Tizanidi Propensi Active Itching Severe Unive rs ne Hcl ty to 05 headaches ity of adverse 00:00: GI pains [place] reaction Medical s Branch ADHESIVE DRUG Active Rash Univers TAPE-CLIFFORD -07 ity of ICONES 00:00: [place] 00 Medical Branch LATEX DRUG Active Rash Univers INGREDI -07 ity of 00:00: Medical Branch Adhesive Propensi Active Rash Univer s Tape-Clifford ty to -07 ity of icones adverse 00:00: [place] reaction 00 Medical s to Branch drug Latex Propensi Active Rash Univers ty to -07 ity of adverse 00:00: [place] reaction 00 Medical s to Branch drug DIVALPRO DRUG Active Other-Cmnt Univ ers EX INGREDI 06-09 ity of SODIUM 00:00: [place] [facility] LEVETIRA DRUG Active Other-Cmnt Univ ers CETAM INGREDI 06-09 ity of 00:00: Medical Branch Divalpro Propensi Active Other - See Tremors, Univers ex ty to comments 06-09 mood ity of Sodium adverse 00:00: swings, [place] reaction 00 appetite Medica l s Branch Levetira Propensi Active Other - See Mood U nivers cetam ty to comments 06-09 swings, ity of adverse 00:00: suicidal [place] reaction 00 thoughts Medica l s Branch Sulfa Propensi Active Hives Univers (Sulfona ty to 06-08 ity of mide adverse 00:00: [place] Antibiot reaction 00 Medica l ics) s to Branch drug MORPHINE DRUG Active High N/V Univers INGREDI 06-08 ity of 00:00: [place] 00 Medical Branch SULFA Drug Active High Hives Univers (SULFONA Class 06-08 ity of MIDE 00:00: [place] ANTIBIOT 00 Medical ICS) Branch ETHOSUXI DRUG Active High Rash Univers MIDE INGREDI 06-08 ity of 00:00: [place] 00 Medical Branch Morphine Propensi Active Nausea Univer s ty to and/or 06-08 ity of adverse Vomiting 00:00: [place] reaction 00 Medical s to Branch drug Ethosuxi Propensi Active Rash Univer s mide ty to 06-08 ity of adverse 00:00: [place] reaction 00 Medical s to Branch drug SULFA Allergy Active Severe Hives [place] (SULFONA to 11-14 Family MIDE substanc 00:00: Practic ANTIBIOT e 00 e ICS) Depakote Allergy Active Severe Other Village to Family substanc Practic e e Keppra Allergy Active Severe Other Village to Family substanc Practic e e Morphine Allergy Active Severe Decreased Vill age to blood Family substanc pressure Practi c e e Social History Social Habit Start Date Stop Date Quantity Comments Source History SDOH [facility] Alcohol Frequency [facility] History SDOH [facility] Alcohol Std Medical Cente r Drinks History SDOH [facility] Alcohol Binge Medical Isidro ter Exposure to 2023-01-02 2023-01-12 Not sure University of SARS-CoV-2 00:00:00 09:57:00 [facility] (event) Branch Alcohol intake 2018-09-04 2018-09-04 Current drinker DIRK Magaña 00:00:00 00:00:00 of alcohol [facility] (finding) Tobacco use and 2017-04-18 2017-04-18 Never used DIRK Ruff exposure 00:00:00 00:00:00 Medical Center History SDOH 2017-04-18 2017-04-18 1 ALCOHOLIC 2X DRIK Jaime Alcohol Comment 00:00:00 00:00:00 PER YEAR Medical C enter History of 2008-12-09 Cigarette Smoker Universi ty of tobacco use 00:00:00 [facility] Sex Assigned At [birth year] DIRK Ruff 00:00:00 00:00:00 Medical Center Smoking Status Start Date Stop Date Source Tobacco smoking consumption [facility] [place] [facility] unknown Never smoked tobacco [facility] Medications Ordered Filled Start Stop Current Ordering Indication Dosage Frequency Signature Comments Components Source Medication Medication Date Date Medication? Clinician (SIG) Name Name dexamethaso 2022- No 10mg 10 mg, Uni vers ne sod phos 01-08 Intramuscu i ty of PF 23:45: 23:38 lar, ONCE, [place] injection 00 :00 1 dose, On Medi stan 10 mg Sat Branch 01/08/23 at 1745, 1 mL HYDROcodone 2022- No 1{tbl} 1 tablet, Univers -acetaminop 2-24 -24 Oral, ity of hen (NORCO 15:45: 15:51 ONCE, 1 Mir as 5) 5-325 mg 00 :00 dose, On Medi stan tablet 1 Fri Branch tablet 01/07/23 at 0945, Routine, PACU HYDROcodone 2022-0 2022- No 1{tbl} 1 tablet, Univers -acetaminop 2-24 24 Oral, ity of hen (NORCO 15:45: 15:51 ONCE, 1 Mir as 5) 5-325 mg 00 :00 dose, On Medi stan tablet 1 Fri Branch tablet 01/07/23 at 0945, Routine, PACU HYDROmorphO Yes .2mg 0.2 mg, Uni vers ne 24 Slow IV ity of (DILAUDID) 15:31: Push, [place] injection 02 Q5MIN PRN, Medi stan 0.2 mg 10 doses, Branch Starting on 01/07/23 at 0931, Until Discontinu ed, Routine, Pain (scale 7-10), PACU
Us e approved by (Faculty): PACU USE -ANESTHESI A SERVICE-HY DROMORPHON E INJECTIONS FENTanyl PF 2022- No 25ug 25 mcg, Un otoniel (SUBLIMAZE 01-07 Slow IV ity o f (PF)) 15:31: 15:56 Push, [place] injection 02 :00 Q5MIN PRN, Medi stan 25 mcg 4 doses, Branch Starting on Tue01/07/23 at 0931, Until Discontinu ed, Routine, Pain (scale 4-6), PACU ondansetron 2022- No 4mg 4 mg, Slow Univers (ZOFRAN 01-07 IV Push, ity of (PF)) 15:31: 15:37 PRN, 1 [place] injection 4 02 :00 dose, Medical mg Starting Branch on Tue01/07/23 at 0931, Until Discontinu ed, Routine, Nausea and Vomiting (N/V), PACU HYDROmorphO 2022- No .2mg 0.2 mg, Un otoniel ne 01-07 Slow IV ity of (DILAUDID) 15:31: 18:40 Push, [place] injection 02 :32 Q5MIN PRN, Medi stan 0.2 mg 10 doses, Branch Starting on Tue01/07/23 at 0931, Until Tue01/07/23 at 1240, Routine, Pain (scale 7-10), PACU
Us e approved by (Faculty): PACU USE -ANESTHESI A SERVICE-HY DROMORPHON E INJECTIONS FENTanyl PF 2022- No 25ug 25 mcg, Un otoniel (SUBLIMAZE 01-07 Slow IV ity o f (PF)) 15:31: 15:56 Push, [place] injection 02 :00 Q5MIN PRN, Medi stan 25 mcg 4 doses, Branch Starting on Tue01/07/23 at 0931, Until Discontinu ed, Routine, Pain (scale 4-6), PACU ondansetron 2022- No 4mg 4 mg, Slow Univers (ZOFRAN 01-07 IV Push, ity of (PF)) 15:31: 15:37 PRN, 1 [place] injection 4 02 :00 dose, Medical mg Starting Branch on Tue01/07/23 at 0931, Until Discontinu ed, Routine, Nausea and Vomiting (N/V), PACU sodium 2022- No PRN, Univers chloride 01-07 Starting ity of 0.9 % 13:14: 15:40 on Tue irrigation 00 :06 01/07/23 at [facility] ical solution 0714, Branch Until Tue01/07/23 at 0940, Intra-op EPINEPHrine 2022- No PRN, Unive rs 1:1,000 (1 01-07 Starting ity of mg/mL) 13:14: 15:40 on Tue (ADRENALIN) 00 :06 01/07/23 at Pr dical injection 0714, Branch Until Tue01/07/23 at 0940, Routine, Intra-op lactated 2022- No 1000mL at 42 Unive rs ringers IV 01-07-24 mL/hr, ity of infusion 12:30: 12:44 1,000 mL, Mir as 1,000 mL 00 :00 IV Medical Infusion, Branch ONCE, 1 dose, On Tue01/07/23 at 0630, Routine, DSU Pre-op lactated 2022- No 1000mL at 42 Unive rs ringers IV 01-07- mL/hr, ity of infusion 12:30: 12:44 1,000 mL, Mir as 1,000 mL 00 :00 IV Medical Infusion, Branch ONCE, 1 dose, On Tue01/07/23 at 0630, Routine, DSU Pre-op Mth-Me 3-0 Yes Take by Univers Blue-Sod 2-24 mouth. ity of Phos-PhSal- 10:40: [address] ([facility]) [place] 118-10-40.8 -36 mg capsule Mth-Me 3-0 Yes Take by Univers Blue-Sod 2-24 mouth. ity of Phos-PhSal- 10:40: [address] ([facility]) Branch 118-10-40.8 -36 mg capsule Mth-Me 2023-0 Yes Take by Univers Blue-Sod 2-24 mouth. ity of Phos-PhSal- 10:40: [address] ([facility]) Branch 118-10-40.8 -36 mg capsule Mth-Me 2023-0 Yes Take by Univers Blue-Sod 2-24 mouth. ity of Phos-PhSal- 10:40: [facility] ([facility] Branch 118-10-40.8 -36 mg capsule Mth-Me 2023-0 Yes Take by Univers Blue-Sod 2-24 mouth. ity of Phos-PhSal- 10:40: [place] [address] Medical (URIBEL) Branch 118-10-40.8 -36 mg capsule Mth-Me 2023-0 Yes Take by Univers Blue-Sod 2-24 mouth. ity of Phos-PhSal- 10:40: [facility] Branch 118-10-40.8 -36 mg capsule Mth-Me 2023-0 Yes Take by Univers Blue-Sod 2-24 mouth. ity of Phos-PhSal- 10:40: [place] [address] Medical (URIBEL) Branch 118-10-40.8 -36 mg capsule Mth-Me 2023-0 Yes Take by Univers Blue-Sod 2-24 mouth. ity of Phos-PhSal- 10:40: [facility] Branch 118-10-40.8 -36 mg capsule Mth-Me 2023-0 Yes Take by Univers Blue-Sod 2-24 mouth. ity of Phos-PhSal- 10:40: [place] [address] Medical (URIBEL) Branch 118-10-40.8 -36 mg capsule HYDROcodone 2022-0 2022- Yes [id number] 1{tbl} Take 1 U nivers -acetaminop 2-24 03-04 tablet by it y of hen 5-325 00:00: 05:59 mouth [place] mg tablet 00 :00 every 6 Medical (six) Branch hours as needed for Pain (scale 4-6) or Pain (scale 7-10) for up to 7 days. Indication s: acute pain HYDROcodone 2022-0 2022- Yes 4647 1{tbl} Take 1 U nivers -acetaminop 2-24 03-04 tablet by it y of hen 5-325 00:00: 05:59 mouth [place] mg tablet 00 :00 every 6 Medical (six) Branch hours as needed for Pain (scale 4-6) or Pain (scale 7-10) for up to 7 days. Indication s: acute pain HYDROcodone 2022- Yes 4647 1{tbl} Take 1 U nivers -acetaminop 2-24 03-04 tablet by it y of hen 5-325 00:00: 05:59 mouth [place] mg tablet 00 :00 every 6 Medical (six) Branch hours as needed for Pain (scale 4-6) or Pain (scale 7-10) for up to 7 days. Indication s: acute pain HYDROcodone 2022- Yes 4647 1{tbl} Take 1 U nivers -acetaminop 2-24 03-04 tablet by it y of hen 5-325 00:00: 05:59 mouth [place] mg tablet 00 :00 every 6 Medical (six) Branch hours as needed for Pain (scale 4-6) or Pain (scale 7-10) for up to 7 days. Indication s: acute pain HYDROcodone 2022- Yes 4647 1{tbl} Take 1 U nivers -acetaminop 2-24 03-04 tablet by it y of hen 5-325 00:00: 05:59 mouth [place] mg tablet 00 :00 every 6 Medical (six) Branch hours as needed for Pain (scale 4-6) or Pain (scale 7-10) for up to 7 days. Indication s: acute pain HYDROcodone 2022- Yes 4647 1{tbl} Take 1 U nivers -acetaminop 2-24 03-04 tablet by it y of hen 5-325 00:00: 05:59 mouth [place] mg tablet 00 :00 every 6 Medical (six) Branch hours as needed for Pain (scale 4-6) or Pain (scale 7-10) for up to 7 days. Indication s: acute pain HYDROcodone 2022- Yes 4647 1{tbl} Take 1 U nivers -acetaminop 2-24 03-04 tablet by it y of hen 5-325 00:00: 05:59 mouth [place] mg tablet 00 :00 every 6 Medical (six) Branch hours as needed for Pain (scale 4-6) or Pain (scale 7-10) for up to 7 days. Indication s: acute pain HYDROcodone 2022- Yes 4647 1{tbl} Take 1 U nivers -acetaminop 2-24 03-04 tablet by it y of hen 5-325 00:00: 05:59 mouth [place] mg tablet 00 :00 every 6 Medical (six) Branch hours as needed for Pain (scale 4-6) or Pain (scale 7-10) for up to 7 days. Indication s: acute pain HYDROcodone 2022- Yes 4647 1{tbl} Take 1 U nivers -acetaminop 01-07 tablet by it y of hen 5-325 00:00: 05:59 mouth [place] mg tablet 00 :00 every 6 Medical (six) Branch hours as needed for Pain (scale 4-6) or Pain (scale 7-10) for up to 7 days. Indication s: acute pain traMADoL 50 2022-2022- No 4647 50mg Take 1 Uni vers mg tablet 01-07- tablet by ity of 00:00: 00:00 mouth [place] 00 :00 every 6 Medical (six) Branch hours as needed for Pain (scale 4-6) or Pain (scale 7-10) for up to 7 days. Indication s: acute pain traMADoL 50 2022- No 4647 50mg Take 1 Uni vers mg tablet 01-07- tablet by ity of 00:00: 00:00 mouth [place] 00 :00 every 6 Medical (six) Branch hours as needed for Pain (scale 4-6) or Pain (scale 7-10) for up to 7 days. Indication s: acute pain insulin 2022- No inject Univers lispro 12-31 under the ity of (HUMALOG 12:17: 00:00 skin. [place] KWIKPEN 48 :00 Medical INSULIN SC) Branch insulin 2022- No inject Univers lispro 12-31 under the ity of (HUMALOG 12:17: 00:00 skin. [place] KWIKPEN 48 :00 Medical INSULIN SC) Branch cefTRIAXone 2022- No 1000mg 1,000 mg, Univers (ROCEPHIN) 12-30 IV ity of 1,000 mg in 04:45: 05:24 Piggyback, [place] NaCl 0.9% 00 :00 ONCE, 1 Medical (NS) 50 mL dose, On Bran h MINI-BAG 12/29/22 at 2245, Administer over 30 Minutes, 50 mL
Reas on for Anti-Infec tive: Documented Infection< br>Documen reggie Infection Site: Urine<br&g t;Duration of Therapy: 7 days iopamidol 0 2022- No [id number] 80mL 80 mL, U nivers (ISOVUE 16 -16 Intravenou ity o f 370-500 mL) 04:16: 04:10 s, ONCE, 1 [place] injection 00 :00 dose, On Medica l 80 mL Wed Branch 12/29/22 at 2230, Routine NaCl 0.9% 2022- No 1000mL at 999 Uni vers (NS) bolus 12-30-16 mL/hr, ity of infusion 02:15: 04:02 1,000 mL, Mir as 1,000 mL 00 :00 IV Medical Infusion, Branch ONCE, 1 dose, On 12/29/22 at 2015, BARRETT cetirizine 2022-0 Yes [id number] 10mg Take 1 U nivers 10 mg 2-15 tablet by ity of tablet 00:00: mouth in [place] [address] the morning Branch and 1 tablet in the evening. FAMOTIDINE 2022-0 Yes [id number] TAKE ONE Univers 20 mg 2-15 (1) TABLET ity of tablet 00:00: BY MOUTH [address] Medical DAILY Branch FAMOTIDINE 2022-0 Yes [id number] TAKE ONE Univers 20 mg 2-15 (1) TABLET ity of tablet 00:00: BY MOUTH [address] Medical DAILY Branch cetirizine 2022-0 Yes [id number] 10mg Take 1 U nivers 10 mg 2-15 tablet by ity of tablet 00:00: mouth in [place] [address] the [facility] morning Branch and 1 tablet in the evening. FAMOTIDINE 2022-0 Yes [id number] TAKE ONE Univers 20 mg 2-15 (1) TABLET ity of tablet 00:00: BY MOUTH [address] Medical DAILY Branch cetirizine 2022-0 Yes [id number] 10mg Take 1 U nivers 10 mg 2-15 tablet by ity of tablet 00:00: mouth in [address] morning [place] and 1 tablet in the evening. FAMOTIDINE 2022-0 Yes [id number] TAKE ONE Univers 20 mg 2-15 (1) TABLET ity of tablet 00:00: BY MOUTH [address] Medical DAILY Branch cetirizine 3-0 Yes [id number] 10mg Take 1 U nivers 10 mg 2-15 tablet by ity of tablet 00:00: mouth in [place] the Medical morning Branch and 1 tablet in the evening. FAMOTIDINE 3-0 Yes [id number] TAKE ONE Univers 20 mg 2-15 (1) TABLET ity of tablet 00:00: BY MOUTH [place] [address] TWICE Medical DAILY Branch cetirizine 3-0 Yes [id number] 10mg Take 1 U nivers 10 mg 2-15 tablet by ity of tablet 00:00: mouth in [place] [address] the Medical morning Branch and 1 tablet in the evening. FAMOTIDINE 2022-0 Yes [id number] TAKE ONE Univers 20 mg 2-15 (1) TABLET ity of tablet 00:00: BY MOUTH [address] Medical DAILY Branch cetirizine 2022-0 Yes [id number] 10mg Take 1 U nivers 10 mg 2-15 tablet by ity of tablet 00:00: mouth in [place] [address] the Medical morning Branch and 1 tablet in the evening. FAMOTIDINE 2022-0 Yes [id number] TAKE ONE Univers 20 mg 2-15 (1) TABLET ity of tablet 00:00: BY MOUTH [address] Medical DAILY Branch cetirizine 2022-0 Yes [id number] 10mg Take 1 U nivers 10 mg 2-15 tablet by ity of tablet 00:00: mouth in [place] [address] the Medical morning Branch and 1 tablet in the evening. FAMOTIDINE 2022-0 Yes [id number] TAKE ONE Univers 20 mg 2-15 (1) TABLET ity of tablet 00:00: BY MOUTH [address] Medical DAILY Branch cetirizine 3-0 Yes [id number] 10mg Take 1 U nivers 10 mg 2-15 tablet by ity of tablet 00:00: mouth in [place] [address] the Medical morning Branch and 1 tablet in the evening. FAMOTIDINE 3-0 Yes [id number] TAKE ONE Univers 20 mg 2-15 (1) TABLET ity of tablet 00:00: BY MOUTH [address] Medical DAILY Branch cetirizine 3-0 Yes [id number] 10mg Take 1 U nivers 10 mg 2-15 tablet by ity of tablet 00:00: mouth in [place] [address] the Medical morning Branch and 1 tablet in the evening. FAMOTIDINE 2023-0 Yes [id number] TAKE ONE Univers 20 mg 2-15 (1) TABLET ity of tablet 00:00: BY MOUTH [place] [address] TWICE Medical DAILY Branch cetirizine 2023-0 Yes [id number] 10mg Take 1 U nivers 10 mg 2-15 tablet by ity of tablet 00:00: mouth in [place] [address] the Medical morning Branch and 1 tablet in the evening. FAMOTIDINE 2023-0 Yes [id number] TAKE ONE Univers 20 mg 2-15 (1) TABLET ity of tablet 00:00: BY MOUTH [place] [address] TWICE Medical DAILY Branch cetirizine 2023-0 Yes [id number] 10mg Take 1 U nivers 10 mg 2-15 tablet by ity of tablet 00:00: mouth in [place] [address] the Medical morning Branch and 1 tablet in the evening. cephALEXin 2023-0 2023- Yes [id number] 500mg Take 1 Univers (KEFLEX) 2-15 02-21 capsule by ity of 500 mg 00:00: 05:59 mouth 4 [place] capsule 00 :00 (four) Medical times Branch daily for 5 days. cephALEXin 2023-0 2023- No [id number] 500mg Take 1 Univers (KEFLEX) 2-15 02-21 capsule by ity of 500 mg 00:00: 05:59 mouth 4 [place] capsule 00 :00 (four) Medical times Branch daily for 5 days. cephALEXin 2023-0 2023- No [id number] 500mg Take 1 Univers (KEFLEX) 2-15 02-21 capsule by ity of 500 mg 00:00: 05:59 mouth 4 [place] capsule 00 :00 (four) Medical times [place] daily for 5 days. promethazin 2023-0 Yes 25mg Take 20 mL Univers e 6.25 mg/5 2-09 by mouth ity of mL solution 00:00: every 8 Mir as 00 (eight) Medical hours as Branch needed for Nausea and Vomiting (N/V). promethazin 2023-0 Yes 25mg Take 20 mL Univers e 6.25 mg/5 2-09 by mouth ity of mL solution 00:00: every 8 Mir as 00 (eight) Medical hours as Branch needed for Nausea and Vomiting (N/V). promethazin 2023-0 Yes 25mg Take 20 mL Univers e 6.25 mg/5 2-09 by mouth ity of mL solution 00:00: every 8 [place] as 00 (eight) Medical hours as Branch needed for Nausea and Vomiting (N/V). promethazin 2023-0 Yes 25mg Take 20 mL Univers e 6.25 mg/5 2-09 by mouth ity of mL solution 00:00: every 8 [place] 00 (eight) Medical hours as Branch needed for Nausea and Vomiting (N/V). promethazin 2023-0 Yes 25mg Take 20 mL Univers e 6.25 mg/5 2-09 by mouth ity of mL solution 00:00: every 8 [place] as 00 (eight) Medical hours as Branch needed for Nausea and Vomiting (N/V). promethazin 2023-0 Yes 25mg Take 20 mL Univers e 6.25 mg/5 2-09 by mouth ity of mL solution 00:00: every 8 [place] 00 (eight) Medical hours as Branch needed for Nausea and Vomiting (N/V). promethazin 2023-0 Yes 25mg Take 20 mL Univers e 6.25 mg/5 2-09 by mouth ity of mL solution 00:00: every 8 [place] 00 (eight) Medical hours as Branch needed for Nausea and Vomiting (N/V). promethazin 2023-0 Yes 25mg Take 20 mL Univers e 6.25 mg/5 2-09 by mouth ity of mL solution 00:00: every 8 [place] as 00 (eight) Medical hours as Branch needed for Nausea and Vomiting (N/V). promethazin 2023-0 Yes 25mg Take 20 mL Univers e 6.25 mg/5 2-09 by mouth ity of mL solution 00:00: every 8 [place] as 00 (eight) Medical hours as Branch needed for Nausea and Vomiting (N/V). promethazin 2023-0 Yes 25mg Take 20 mL Univers e 6.25 mg/5 2-09 by mouth ity of mL solution 00:00: every 8 [place] as 00 (eight) Medical hours as Branch needed for Nausea and Vomiting (N/V). promethazin 2023-0 Yes 25mg Take 20 mL Univers e 6.25 mg/5 2-09 by mouth ity of mL solution 00:00: every 8 [place] as 00 (eight) Medical hours as Branch needed for Nausea and Vomiting (N/V). promethazin 2023-0 Yes 25mg Take 20 mL Univers e 6.25 mg/5 2-09 by mouth ity of mL solution 00:00: every 8 [place] as 00 (eight) Medical hours as Branch needed for Nausea and Vomiting (N/V). promethazin 2023-0 Yes 25mg Take 20 mL Univers e 6.25 mg/5 2-09 by mouth ity of mL solution 00:00: every 8 [place] as 00 (eight) Medical hours as Branch needed for Nausea and Vomiting (N/V). promethazin 2023-0 2023- No 25mg Take 20 mL Univers e 6.25 mg/5 2-09 02-09 by mouth ity of mL solution 00:00: 00:00 every 8 [place] 00 :00 (eight) Medical hours as Branch needed for Nausea and Vomiting (N/V). pantoprazol 2023-0 Yes [id number] 40mg Take 1 Univers e 40 mg EC 2-03 tablet by ity of tablet 00:00: mouth in [place] 00 the Medical morning. Branch pantoprazol 2023-0 Yes [id number] 40mg Take 1 Univers e 40 mg EC 2-03 tablet by ity of tablet 00:00: mouth in [place] 00 the Medical morning. Branch pantoprazol 2023-0 Yes [id number] 40mg Take 1 Univers e 40 mg EC 2-03 tablet by ity of tablet 00:00: mouth in [place] 00 the Medical morning. Branch pantoprazol 2023-0 Yes [id number] 40mg Take 1 Univers e 40 mg EC 2-03 tablet by ity of tablet 00:00: mouth in [place] 00 the Medical morning. Branch pantoprazol 2023-0 Yes [id number] 40mg Take 1 Univers e 40 mg EC 2-03 tablet by ity of tablet 00:00: mouth in [place] 00 the Medical morning. Branch pantoprazol 2023-0 Yes [id number] 40mg Take 1 Univers e 40 mg EC 2-03 tablet by ity of tablet 00:00: mouth in [place] 00 the Medical morning. Branch pantoprazol 2023-0 Yes [id number] 40mg Take 1 Univers e 40 mg EC 2-03 tablet by ity of tablet 00:00: mouth in [place] 00 the Medical morning. Branch pantoprazol 2023-0 Yes [id number] 40mg Take 1 Univers e 40 mg EC 2-03 tablet by ity of tablet 00:00: mouth in [place] 00 the Medical morning. Branch pantoprazol 2023-0 Yes [id number] 40mg Take 1 [facility] e 40 mg EC 2-03 tablet by ity of tablet 00:00: mouth in [place] 00 the Medical morning. Branch pantoprazol 2023-0 Yes [id number] 40mg Take 1 [facility] e 40 mg EC 2-03 tablet by ity of tablet 00:00: mouth in [place] 00 the Medical morning. Branch pantoprazol 2023-0 Yes [id number] 40mg Take 1 [facility] e 40 mg EC 2-03 tablet by ity of tablet 00:00: mouth in [place] 00 the Medical morning. Branch pantoprazol 2023-0 Yes [id number] 40mg Take 1 [facility] e 40 mg EC 2-03 tablet by ity of tablet 00:00: mouth in [place] 00 the Medical morning. Branch pantoprazol 2023-0 Yes [id number] 40mg Take 1 [facility] e 40 mg EC 2-03 tablet by ity of tablet 00:00: mouth in [place] 00 the Medical morning. Branch pantoprazol 2023-0 Yes [id number] 40mg Take 1 [facility] e 40 mg EC 2-03 tablet by ity of tablet 00:00: mouth in [place] 00 the Medical morning. Branch pantoprazol 2023-0 Yes [id number] 40mg Take 1 [facility] e 40 mg EC 2-03 tablet by ity of tablet 00:00: mouth in [place] 00 the Medical morning. Branch pantoprazol 2023-0 Yes [id number] 40mg Take 1 [facility] e 40 mg EC 2-03 tablet by ity of tablet 00:00: mouth in [place] 00 the Medical morning. Branch pantoprazol 2023-0 Yes [id number] 40mg Take 1 [facility] e 40 mg EC 2-03 tablet by ity of tablet 00:00: mouth in [place] 00 the Medical morning. Branch pantoprazol 2023-0 Yes [id number] 40mg Take 1 [facility] e 40 mg EC 2-03 tablet by ity of tablet 00:00: mouth in [place] 00 the Medical morning. Branch pantoprazol 2023-0 Yes [id number] 40mg Take 1 [facility] e 40 mg EC 2-03 tablet by ity of tablet 00:00: mouth in [place] 00 the Medical morning. Branch pantoprazol 2023-0 2023- Yes [id number] 40mg Take 1 [facility] e 40 mg EC 12-16 tablet by ity of tablet 00:00: 05:59 mouth in [place] 00 :00 the [facility] for 30 days. pantoprazol 2022- Yes [id number] 40mg Take 1 [facility] e 40 mg EC 12-16 tablet by ity of tablet 00:00: 05:59 mouth in [place] 00 :00 the [facility] for 30 days. pantoprazol 2022-0 2022- Yes [id number] 40mg Take 1 [facility] e 40 mg EC 12-16 tablet by ity of tablet 00:00: 05:59 mouth in [place] 00 :00 the [facility] for 30 days. pantoprazol 2022-2022- No [id number] 40mg Take 1 [facility] e 40 mg EC 12-16 tablet by ity of tablet 00:00: 00:00 mouth in [place] 00 :00 the [facility] for 30 days. lancets 28 2022-0 Yes [id number] Use as U nivers gauge Misc 1-31 directed ity o f 00:00: [place] 00 Medical Branch lancets 28 2023-0 Yes [id number] Use as U nivers gauge Misc 1-31 directed ity o f 00:00: [place] [facility] lancets 28 2023-0 Yes [id number] Use as U nivers gauge Misc 1-31 directed ity o f 00:00: [place] 00 Medical Branch lancets 28 2023-0 Yes [id number] Use as U nivers gauge Misc 1-31 directed ity o f 00:00: [place] [facility] lancets 28 2023-0 Yes [id number] Use as U nivers gauge Misc 1-31 directed ity o f 00:00: [place] 00 Medical Branch lancets 28 2023-0 Yes [id number] Use as U nivers gauge Misc 1-31 directed ity o f 00:00: [place] 00 Medical Branch lancets 28 2023-0 Yes [id number] Use as U nivers gauge Misc 1-31 directed ity o f 00:00: [place] 00 Medical Branch lancets 28 2023-0 Yes [id number] Use as U nivers gauge Misc 1-31 directed ity o f 00:00: [place] 00 Medical Branch lancets 28 2023-0 Yes [id number] Use as U nivers gauge Misc 1-31 directed ity o f 00:00: [place] [facility] lancets 28 2023-0 Yes [id number] Use as U nivers gauge Misc 1-31 directed ity o f 00:00: [place] [facility] lancets 28 2023-0 Yes [id number] Use as U nivers gauge Misc 1-31 directed ity o f 00:00: [place] [facility] lancets 28 2023-0 Yes [id number] Use as U nivers gauge Misc 1-31 directed ity o f 00:00: [place] [facility] lancets 28 2023-0 Yes [id number] Use as U nivers gauge Misc 1-31 directed ity o f 00:00: [place] [facility] lancets 28 3-0 Yes [id number] Use as U nivers gauge Misc 1-31 directed ity o f 00:00: [place] [facility] lancets 28 2023-0 Yes [id number] Use as U nivers gauge Misc 1-31 directed ity o f 00:00: [place] [facility] lancets 28 2023-0 Yes [id number] Use as U nivers gauge Misc 1-31 directed ity o f 00:00: [place] [facility] lancets 28 2023-0 Yes [id number] Use as U nivers gauge Misc 1-31 directed ity o f 00:00: [place] [facility] lancets 28 2023-0 Yes [id number] Use as U nivers gauge Misc 1-31 directed ity o f 00:00: [place] [facility] lancets 28 2023-0 Yes [id number] Use as U nivers gauge Misc 1-31 directed ity o f 00:00: [place] [facility] lancets 28 2023-0 Yes [id number] Use as U nivers gauge Misc 1-31 directed ity o f 00:00: [place] [facility] lancets 28 2023-0 Yes [id number] Use as U nivers gauge Misc 1-31 directed ity o f 00:00: [place] [facility] lancets 28 2023-0 Yes [id number] Use as U nivers gauge Misc 1-31 directed ity o f 00:00: [place] [facility] lancets 28 2023-0 Yes [id number] Use as U nivers gauge Misc 1-31 directed ity o f 00:00: [place] 00 Medical Branch levalbutero 2022-0 Yes [id number] INHALE 1-2 Univers l 45 1-30 PUFFS BY ity of mcg/actuati 00:00: MOUTH [place] on inhaler 00 EVERY 4 Medica l HOURS Branch NEEDED FOR WHEEZING levalbutero 2023-0 Yes [id number] INHALE 1-2 Univers l 45 1-30 PUFFS BY ity of mcg/actuati 00:00: MOUTH [place] on inhaler 00 EVERY 4 Medica l HOURS Branch NEEDED FOR WHEEZING levalbutero 3-0 Yes [id number] INHALE 1-2 Univers l 45 1-30 PUFFS BY ity of mcg/actuati 00:00: MOUTH [place] on inhaler 00 EVERY 4 Medica l HOURS Branch NEEDED FOR WHEEZING levalbutero 2023-0 Yes [id number] INHALE 1-2 Univers l 45 1-30 PUFFS BY ity of mcg/actuati 00:00: MOUTH [place] on inhaler 00 EVERY 4 Medica l HOURS Branch NEEDED FOR WHEEZING levalbutero 3-0 Yes [id number] INHALE 1-2 Univers l 45 1-30 PUFFS BY ity of mcg/actuati 00:00: MOUTH [place] on inhaler 00 EVERY 4 Medica l HOURS Branch NEEDED FOR WHEEZING levalbutero 3-0 Yes [id number] INHALE 1-2 Univers l 45 1-30 PUFFS BY ity of mcg/actuati 00:00: MOUTH [place] on inhaler 00 EVERY 4 Medica l HOURS Branch NEEDED FOR WHEEZING levalbutero 3-0 Yes [id number] INHALE 1-2 Univers l 45 1-30 PUFFS BY ity of mcg/actuati 00:00: MOUTH [place] on inhaler 00 EVERY 4 Medica l HOURS Branch NEEDED FOR WHEEZING levalbutero 2023-0 Yes [id number] INHALE 1-2 Univers l 45 1-30 PUFFS BY ity of mcg/actuati 00:00: MOUTH [place] on inhaler 00 EVERY 4 Medica l HOURS Branch NEEDED FOR WHEEZING levalbutero 2023-0 Yes [id number] INHALE 1-2 Univers l 45 1-30 PUFFS BY ity of mcg/actuati 00:00: MOUTH [place] on inhaler 00 EVERY 4 Medica l HOURS Branch NEEDED FOR WHEEZING levalbutero 2023-0 Yes [id number] INHALE 1-2 Univers l 45 1-30 PUFFS BY ity of mcg/actuati 00:00: MOUTH [place] on inhaler 00 EVERY 4 Medica l HOURS Branch NEEDED FOR WHEEZING levalbutero 2023-0 Yes [id number] INHALE 1-2 Univers l 45 1-30 PUFFS BY ity of mcg/actuati 00:00: MOUTH [place] on inhaler 00 EVERY 4 Medica l HOURS Branch NEEDED FOR WHEEZING levalbutero 2023-0 Yes [id number] INHALE 1-2 Univers l 45 1-30 PUFFS BY ity of mcg/actuati 00:00: MOUTH [place] on inhaler 00 EVERY 4 Medica l HOURS Branch NEEDED FOR WHEEZING levalbutero 2023-0 Yes [id number] INHALE 1-2 Univers l 45 1-30 PUFFS BY ity of mcg/actuati 00:00: MOUTH [place] on inhaler 00 EVERY 4 Medica l HOURS Branch NEEDED FOR WHEEZING levalbutero 2023-0 Yes [id number] INHALE 1-2 Univers l 45 1-30 PUFFS BY ity of mcg/actuati 00:00: MOUTH [place] on inhaler 00 EVERY 4 Medica l HOURS Branch NEEDED FOR WHEEZING levalbutero 2023-0 Yes [id number] INHALE 1-2 Univers l 45 1-30 PUFFS BY ity of mcg/actuati 00:00: MOUTH [place] on inhaler 00 EVERY 4 Medica l HOURS Branch NEEDED FOR WHEEZING levalbutero 2023-0 Yes [id number] INHALE 1-2 Univers l 45 1-30 PUFFS BY ity of mcg/actuati 00:00: MOUTH [place] on inhaler 00 EVERY 4 Medica l HOURS Branch NEEDED FOR WHEEZING levalbutero 2023-0 Yes [id number] INHALE 1-2 Univers l 45 1-30 PUFFS BY ity of mcg/actuati 00:00: MOUTH [place] on inhaler 00 EVERY 4 Medica l HOURS Branch NEEDED FOR WHEEZING levalbutero 2023-0 Yes [id number] INHALE 1-2 Univers l 45 1-30 PUFFS BY ity of mcg/actuati 00:00: MOUTH [place] on inhaler 00 EVERY 4 Medica l HOURS Branch NEEDED FOR WHEEZING levalbutero 2022-0 Yes [id number] INHALE 1-2 Univers l 45 1-30 PUFFS BY ity of mcg/actuati 00:00: MOUTH [place] on inhaler 00 EVERY 4 Medica l HOURS Branch NEEDED FOR WHEEZING levalbutero 2022-0 Yes [id number] INHALE 1-2 Univers l 45 1-30 PUFFS BY ity of mcg/actuati 00:00: MOUTH [place] on inhaler 00 EVERY 4 Medica l HOURS Branch NEEDED FOR WHEEZING levalbutero 2022-0 Yes [id number] INHALE 1-2 Univers l 45 1-30 PUFFS BY ity of mcg/actuati 00:00: MOUTH [place] on inhaler 00 EVERY 4 Medica l HOURS Branch NEEDED FOR WHEEZING levalbutero 2022-0 Yes [id number] INHALE 1-2 Univers l 45 1-30 PUFFS BY ity of mcg/actuati 00:00: MOUTH [place] on inhaler 00 EVERY 4 Medica l HOURS Branch NEEDED FOR WHEEZING levalbutero 2022-0 Yes [id number] INHALE 1-2 Univers l 45 1-30 PUFFS BY ity of mcg/actuati 00:00: MOUTH [place] on inhaler 00 EVERY 4 Medica l HOURS Branch NEEDED FOR WHEEZING levalbutero 2022-0 Yes [id number] INHALE 1-2 Univers l 45 1-30 PUFFS BY ity of mcg/actuati 00:00: MOUTH [place] on inhaler 00 EVERY 4 Medica l HOURS Branch NEEDED FOR WHEEZING insulin 0 Yes TAKE Univers lispro 100 1-27 DIRECTED ity o f unit/mL pen 00:00: PER [place] injector 00 SLIDING Medical SCALE *MAX Branch DAILY DOSE: 100 UNITS* solifenacin 2022-0 Yes 10mg Take 10 mg Univers 10 mg 1-27 by mouth ity of tablet 00:00: in the [place] 00 morning. Medical Branch insulin 2022-0 Yes TAKE [facility] lispro 100 1-27 DIRECTED ity o f unit/mL pen 00:00: PER [place] injector 00 SLIDING Medical SCALE *MAX Branch DAILY DOSE: 100 UNITS* solifenacin 2022-0 Yes 10mg Take 10 mg [facility] 10 mg 1-27 by mouth ity of tablet 00:00: in the [place] 00 morning. Medical Branch insulin 3-0 Yes TAKE [facility] lispro 100 1-27 DIRECTED ity o f unit/mL pen 00:00: PER [place] injector 00 SLIDING Medical SCALE *MAX Branch DAILY DOSE: 100 UNITS* solifenacin 2023-0 Yes 10mg Take 10 mg [facility] 10 mg 1-27 by mouth ity of tablet 00:00: in the [place] 00 morning. Medical Branch insulin 3-0 Yes TAKE [facility] lispro 100 1-27 DIRECTED ity o f unit/mL pen 00:00: PER [place] injector 00 SLIDING Medical SCALE *MAX Branch DAILY DOSE: 100 UNITS* solifenacin 2023-0 Yes 10mg Take 10 mg [facility] 10 mg 1-27 by mouth ity of tablet 00:00: in the [place] 00 morning. Medical Branch insulin 3-0 Yes TAKE [facility] lispro 100 1-27 DIRECTED ity o f unit/mL pen 00:00: PER [place] injector 00 SLIDING Medical SCALE *MAX Branch DAILY DOSE: 100 UNITS* solifenacin 2023-0 Yes 10mg Take 10 mg [facility] 10 mg 1-27 by mouth ity of tablet 00:00: in the [place] 00 morning. Medical Branch insulin 3-0 Yes TAKE [facility] lispro 100 1-27 DIRECTED ity o f unit/mL pen 00:00: PER [place] injector 00 SLIDING Medical SCALE *MAX Branch DAILY DOSE: 100 UNITS* solifenacin 2023-0 Yes 10mg Take 10 mg [facility] 10 mg 1-27 by mouth ity of tablet 00:00: in the [place] 00 morning. Medical Branch insulin 3-0 Yes TAKE [facility] lispro 100 1-27 DIRECTED ity o f unit/mL pen 00:00: PER [place] injector 00 SLIDING Medical SCALE *MAX Branch DAILY DOSE: 100 UNITS* solifenacin 2023-0 Yes 10mg Take 10 mg [facility] 10 mg 1-27 by mouth ity of tablet 00:00: in the [place] 00 morning. Medical Branch insulin 2023-0 Yes TAKE [facility] lispro 100 1-27 DIRECTED ity o f unit/mL pen 00:00: PER [place] injector 00 SLIDING Medical SCALE *MAX Branch DAILY DOSE: 100 UNITS* solifenacin 2023-0 Yes 10mg Take 10 mg [facility] 10 mg 1-27 by mouth ity of tablet 00:00: in the [place] 00 morning. Medical Branch insulin Yes TAKE [facility] lispro 100 27 DIRECTED ity o f unit/mL pen 00:00: PER [place] injector 00 SLIDING Medical SCALE *MAX Branch DAILY DOSE: 100 UNITS* solifenacin Yes 10mg Take 10 mg [facility] 10 mg 12-10 by mouth ity of tablet 00:00: in the [place] 00 morning. Medical Branch tc 2022- No [id number] 31.5mCi 31.5 Unive rs 99m-tetrofo 12-09 millicurie i ty of smin 17:30: 16:14 , [place] (MYOVIEW) 00 :00 Intravenou Medi stan injection s, ONCE, 1 Bran ch 31.5 dose, On [facility] 12/09/22 at 1130, Routine regadenoson 2022- No [id number] .4mg 0.4 mg, IV Univers (LEXISCAN) 12-09 Push, ity of injection 16:15: 16:14 [place] [facility] [facility]5, Routine
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 Use in each nostril as directed azelastine Yes [id number] 1{spray Use 1 [facility] 137 mcg 1-24 } [place] in ity of (0.1 %) 00:00: each [place] nasal spray 00 nostril in [facility] the [place] morning and 1 [place] in the evening. Use in each nostril as directed azelastine Yes [id number] 1{spray Use 1 [facility] 137 mcg 1-24 } [place] in ity of (0.1 %) 00:00: each [place] nasal spray 00 nostril in [facility] the [place] morning and 1 [place] in the evening. Use in each nostril as directed azelastine Yes [id number] 1{spray Use 1 [facility] 137 mcg 1-24 } [place] in ity of (0.1 %) 00:00: each [place] nasal spray 00 nostril in Me dical the Branch morning and 1 [place] in the evening. Use in each nostril as directed azelastine 2023-0 Yes [id number] 1{spray Use 1 [facility] 137 mcg 1-24 } [place] in ity of (0.1 %) 00:00: each [place] nasal spray 00 nostril in Me dical the Branch morning and 1 [place] in the evening. Use in each nostril as directed azelastine 2023-0 Yes [id number] 1{spray Use 1 [facility] 137 mcg 1-24 } [place] in ity of (0.1 %) 00:00: each [place] nasal spray 00 nostril in Pr dical the Branch morning and 1 [place] in the evening. Use in each nostril as directed azelastine 2023-0 Yes [id number] 1{spray Use 1 [facility] 137 mcg 1-24 } [place] in ity of (0.1 %) 00:00: each [place] nasal spray 00 nostril in Pr dical the Branch morning and 1 [place] in the evening. Use in each nostril as directed azelastine 2023-0 Yes [id number] 1{spray Use 1 [facility] 137 mcg 1-24 } [place] in ity of (0.1 %) 00:00: each [place] nasal spray 00 nostril in Me dical the Branch morning and 1 [place] in the evening. Use in each nostril as directed azelastine 2023-0 Yes [id number] 1{spray Use 1 [facility] 137 mcg 1-24 } [place] in ity of (0.1 %) 00:00: each [place] nasal spray 00 nostril in Pr dical the Branch morning and 1 [place] in the evening. Use in each nostril as directed azelastine 2023-0 Yes [id number] 1{spray Use 1 [facility] 137 mcg 1-24 } [place] in ity of (0.1 %) 00:00: each [place] nasal spray 00 nostril in Me dical the Branch morning and 1 [place] in the evening. Use in each nostril as directed azelastine 2023-0 Yes [id number] 1{spray Use 1 [facility] 137 mcg 1-24 } [place] in ity of (0.1 %) 00:00: each [place] nasal spray 00 nostril in Me dical the Branch morning and 1 [place] in the evening. Use in each nostril as directed azelastine 2023-0 Yes [id number] 1{spray Use 1 [facility] 137 mcg 1-24 } [place] in ity of (0.1 %) 00:00: each [place] nasal spray 00 nostril in Me dical the Branch morning and 1 [place] in the evening. Use in each nostril as directed azelastine 2023-0 Yes [id number] 1{spray Use 1 [facility] 137 mcg 1-24 } [place] in ity of (0.1 %) 00:00: each [place] nasal spray 00 nostril in Me dical the Branch morning and 1 [place] in the evening. Use in each nostril as directed azelastine 2023-0 Yes [id number] 1{spray Use 1 [facility] 137 mcg 1-24 } [place] in ity of (0.1 %) 00:00: each [place] nasal spray 00 nostril in Me dical the Branch morning and 1 [place] in the evening. Use in each nostril as directed azelastine 2023-0 Yes [id number] 1{spray Use 1 [facility] 137 mcg 1-24 } [place] in ity of (0.1 %) 00:00: each [place] nasal spray 00 nostril in Me dical the Branch morning and 1 [place] in the evening. Use in each nostril as directed azelastine 2023-0 Yes [id number] 1{spray Use 1 [facility] 137 mcg 1-24 } [place] in ity of (0.1 %) 00:00: each [place] nasal spray 00 nostril in Me dical the Branch morning and 1 [place] in the evening. Use in each nostril as directed azelastine 2023-0 Yes [id number] 1{spray Use 1 Univers 137 mcg 1-24 } [place] in ity of (0.1 %) 00:00: each [place] nasal spray 00 nostril in Me dical the Branch morning and 1 [place] in the evening. Use in each nostril as directed azelastine 2023-0 Yes [id number] 1{spray Use 1 Univers 137 mcg 1-24 } [place] in ity of (0.1 %) 00:00: each [place] nasal spray 00 nostril in Me dical the Branch morning and 1 [place] in the evening. Use in each nostril as directed azelastine 2023-0 Yes [id number] 1{spray Use 1 Univers 137 mcg 1-24 } [place] in ity of (0.1 %) 00:00: each [place] nasal spray 00 nostril in Pr dical the Branch morning and 1 [place] in the evening. Use in each nostril as directed azelastine 2023-0 Yes [id number] 1{spray Use 1 Univers 137 mcg 1-24 } [place] in ity of (0.1 %) 00:00: each [place] nasal spray 00 nostril in Pr dical the Branch morning and 1 [place] in the evening. Use in each nostril as directed azelastine 2023-0 Yes [id number] 1{spray Use 1 [facility] 137 mcg 1-24 } [place] in ity of (0.1 %) 00:00: each [place] nasal spray 00 nostril in Pr dical the Branch morning and 1 [place] in the evening. Use in each nostril as directed azelastine 2023-0 Yes [id number] 1{spray Use 1 Univers 137 mcg 1-24 } [place] in ity of (0.1 %) 00:00: each [place] nasal spray 00 nostril in Pr dical the Branch morning and 1 [place] in the evening. Use in each nostril as directed azelastine 2023-0 Yes [id number] 1{spray Use 1 Univers 137 mcg 1-24 } [place] in ity of (0.1 %) 00:00: each [place] nasal spray 00 nostril in Pr dical the Branch morning and 1 [place] in the evening. Use in each nostril as directed azelastine 2023-0 Yes [id number] 1{spray Use 1 Univers 137 mcg 1-24 } [place] in ity of (0.1 %) 00:00: each [place] nasal spray 00 nostril in Pr dical the Branch morning and 1 [place] in the evening. Use in each nostril as directed azelastine 2023-0 Yes [id number] 1{spray Use 1 Univers 137 mcg 1-24 } [place] in ity of (0.1 %) 00:00: each [place] nasal spray 00 nostril in Me dical the Branch morning and 1 [place] in the evening. Use in each nostril as directed azelastine 3-0 Yes [id number] 1{spray Use 1 Univers 137 mcg 1-24 } [place] in ity of (0.1 %) 00:00: each [place] nasal spray 00 nostril in Me dical the Branch morning and 1 [place] in the evening. Use in each nostril as directed azelastine 3-0 Yes [id number] 1{spray Use 1 [facility] 137 mcg 1-24 } [place] in ity of (0.1 %) 00:00: each [place] nasal spray 00 nostril in Me dical the Branch morning and 1 [place] in the evening. Use in each nostril as directed azelastine 3-0 Yes [id number] 1{spray Use 1 Univers 137 mcg 1-24 } [place] in ity of (0.1 %) 00:00: each [place] nasal spray 00 nostril in Pr dical the Branch morning and 1 [place] in the evening. Use in each nostril as directed azelastine 3-0 Yes [id number] 1{spray Use 1 [facility] 137 mcg 1-24 } [place] in ity of (0.1 %) 00:00: each [place] nasal spray 00 nostril in Me dical the Branch morning and 1 [place] in the evening. Use in each nostril as directed azelastine 3-0 Yes [id number] 1{spray Use 1 [facility] 137 mcg 1-24 } [place] in ity of (0.1 %) 00:00: each [place] nasal spray 00 nostril in Pr dical the Branch morning and 1 [place] in the evening. Use in each nostril as directed azelastine 3-0 Yes [id number] 1{spray Use 1 [facility] 137 mcg 1-24 } [place] in ity of (0.1 %) 00:00: each [place] nasal spray 00 nostril in Pr dical the Branch morning and 1 [place] in the evening. Use in each nostril as directed NaCl 0.9% 2022-0 2023- No [id number] 1000mL at 999 Univers (NS) IV 1-18 01-18 mL/hr, IV ity of infusion 19:15: 20:20 Infusion, [place] as 1,000 mL 00 :00 ONCE, 1 Medical dose, On Branch 12/01/22 at 1315, Routine methylPREDN 2023-0 Yes [id number] Take by Univers ISolone 1-18 mouth ity of (MEDROL, 00:00: SEE-INSTRU [place] as SURINDER,) 4 mg 00 CTIONS. Medica l tablets follow Branch package directions methylPREDN 2023-0 Yes [id number] Take by Univers ISolone 1-18 mouth ity of (MEDROL, 00:00: SEE-INSTRU [place] SURINDER,) 4 mg 00 CTIONS. Medica l tablets follow Branch package directions methylPREDN 2023-0 Yes [id number] Take by Univers ISolone 1-18 mouth ity of (MEDROL, 00:00: SEE-INSTRU [place] SURINDER,) 4 mg 00 CTIONS. Medica l tablets follow Branch package directions methylPREDN 2023-0 Yes [id number] Take by Univers ISolone 1-18 mouth ity of (MEDROL, 00:00: SEE-INSTRU [place] SURINDER,) 4 mg 00 CTIONS. Medica l tablets follow Branch package directions methylPREDN 2023-0 Yes [id number] Take by Univers ISolone 1-18 mouth ity of (MEDROL, 00:00: SEE-INSTRU [place] SURINDER,) 4 mg 00 CTIONS. Medica l tablets follow Branch package directions methylPREDN 2023-0 Yes [id number] Take by Univers ISolone 1-18 mouth ity of (MEDROL, 00:00: SEE-INSTRU [place] as SURINDER,) 4 mg 00 CTIONS. Medica l tablets follow Branch package directions methylPREDN 2023-0 Yes [id number] Take by Univers ISolone 1-18 mouth ity of (MEDROL, 00:00: SEE-INSTRU [place] as SURINDER,) 4 mg 00 CTIONS. Medica l tablets follow Branch package directions methylPREDN 2023-0 Yes [id number] Take by Univers ISolone 1-18 mouth ity of (MEDROL, 00:00: SEE-INSTRU [place] as SURINDER,) 4 mg 00 CTIONS. Medica l tablets follow Branch package directions methylPREDN 2023-0 Yes [id number] Take by Univers ISolone 1-18 mouth ity of (MEDROL, 00:00: SEE-INSTRU [place] as SURINDER,) 4 mg 00 CTIONS. Medica l tablets follow Branch package directions methylPREDN 2023-0 Yes [id number] Take by Univers ISolone 1-18 mouth ity of (MEDROL, 00:00: SEE-INSTRU [place] as SURINDER,) 4 mg 00 CTIONS. Medica l tablets follow Branch package directions methylPREDN 2023-0 Yes [id number] Take by Univers ISolone 1-18 mouth ity of (MEDROL, 00:00: SEE-INSTRU [place] SURINDER,) 4 mg 00 CTIONS. Medica l tablets follow Branch package directions methylPREDN 2023-0 Yes [id number] Take by Univers ISolone 1-18 mouth ity of (MEDROL, 00:00: SEE-INSTRU [place] as SURINDER,) 4 mg 00 CTIONS. Medica l tablets follow Branch package directions methylPREDN 2023-0 Yes [id number] Take by Univers ISolone 1-18 mouth ity of (MEDROL, 00:00: SEE-INSTRU [place] as SURINDER,) 4 mg 00 CTIONS. Medica l tablets follow Branch package directions methylPREDN 2023-0 Yes [id number] Take by Univers ISolone 1-18 mouth ity of (MEDROL, 00:00: SEE-INSTRU [place] as SURINDER,) 4 mg 00 CTIONS. Medica l tablets follow Branch package directions methylPREDN 2023-0 Yes [id number] Take by Univers ISolone 1-18 mouth ity of (MEDROL, 00:00: SEE-INSTRU [place] as SURINDER,) 4 mg 00 CTIONS. Medica l tablets follow Branch package directions methylPREDN 2023-0 Yes [id number] Take by Univers ISolone 1-18 mouth ity of (MEDROL, 00:00: SEE-INSTRU [place] as SURINDER,) 4 mg 00 CTIONS. Medica l tablets follow Branch package directions methylPREDN 2023-0 Yes [id number] Take by Univers ISolone 1-18 mouth ity of (MEDROL, 00:00: SEE-INSTRU [place] as SURINDER,) 4 mg 00 CTIONS. Medica l tablets follow Branch package directions methylPREDN 2023-0 Yes [id number] Take by Univers ISolone 1-18 mouth ity of (MEDROL, 00:00: SEE-INSTRU [place] as SURINDER,) 4 mg 00 CTIONS. Medica l tablets follow Branch package directions methylPREDN 2023-0 Yes [id number] Take by Univers ISolone 1-18 mouth ity of (MEDROL, 00:00: SEE-INSTRU [place] as SURINDER,) 4 mg 00 CTIONS. Medica l tablets follow Branch package directions methylPREDN 2023-0 Yes [id number] Take by Univers ISolone 1-18 mouth ity of (MEDROL, 00:00: SEE-INSTRU [place] as SURINDER,) 4 mg 00 CTIONS. Medica l tablets follow Branch package directions methylPREDN 2023-0 Yes [id number] Take by Univers ISolone 1-18 mouth ity of (MEDROL, 00:00: SEE-INSTRU [place] as SURINDER,) 4 mg 00 CTIONS. Medica l tablets follow Branch package directions methylPREDN 2023-0 Yes [id number] Take by Univers ISolone 1-18 mouth ity of (MEDROL, 00:00: SEE-INSTRU [place] as SURINDER,) 4 mg 00 CTIONS. Medica l tablets follow Branch package directions methylPREDN 2023-0 Yes [id number] Take by Univers ISolone 1-18 mouth ity of (MEDROL, 00:00: SEE-INSTRU [place] as SURINDER,) 4 mg 00 CTIONS. Medica l tablets follow Branch package directions methylPREDN 2023-0 Yes [id number] Take by Univers ISolone 1-18 mouth ity of (MEDROL, 00:00: SEE-INSTRU [place] as SURINDER,) 4 mg 00 CTIONS. Medica l tablets follow Branch package directions methylPREDN 2023-0 Yes [id number] Take by [facility] ISolone 1-18 mouth ity of (MEDROL, 00:00: SEE-INSTRU [place] SURINDER,) 4 mg 00 CTIONS. Medica l tablets follow Branch package directions methylPREDN 2023-0 Yes [id number] Take by [facility] ISolone 1-18 mouth ity of (MEDROL, 00:00: SEE-INSTRU [place] SURINDER,) 4 mg 00 CTIONS. Medica l tablets follow Branch package directions methylPREDN 2023-0 Yes [id number] Take by [facility] ISolone 1-18 mouth ity of (MEDROL, 00:00: SEE-INSTRU [place] SURINDER,) 4 mg 00 CTIONS. Medica l tablets follow Branch package directions methylPREDN 2023-0 2023- No [id number] Take by [facility] ISol[facility] 12-0117 mouth ity of (MEDROL, 00:00: 00:[place] SURIND[place] 4 mg 00 :00 CTIONS. Medica l tablets follow Branch package directions methylPREDN 0 3- No [id number] Take by [facility] 12-0117 mouth ity of (MEDROL, 00:00: 00:[place] SURIND[place] 4 mg 00 :00 CTIONS. Medica l tablets follow Branch package directions ergotamine- 0 Yes Univer s caffeine 1-13 ity of 1-100 mg 00:00: [place] per tablet 00 [facility] ergotamine- 2022-0 Yes Univer s caffeine 1-13 ity of 1-100 mg 00:00: [place] per tablet 00 [facility] ergotamine- 2022-0 Yes Univer s caffeine 1-13 ity of 1-100 mg 00:00: [place] per tablet 00 [facility] ergotamine- 2022-0 Yes Univer s caffeine 1-13 ity of 1-100 mg 00:00: [place] per tablet 00 [facility] Branch ergotamine- 2022-0 Yes Univer s caffeine 1-13 ity of 1-100 mg 00:00: [place] per tablet 00 [facility] ergotamine- 2022-0 Yes Univer s caffeine 1-13 ity of 1-100 mg 00:00: [place] per tablet 00 [facility] ergotamine- 2022-0 Yes Univer s caffeine 1-13 ity of 1-100 mg 00:00: [place] per tablet 00 [facility] Branch ergotamine- 2022-0 Yes Univer s caffeine 1-13 ity of 1-100 mg 00:00: [place] per tablet 00 [facility] ergotamine- 2022-0 Yes Univer s caffeine 1-13 ity of 1-100 mg 00:00: [place] per tablet 00 [facility] azelastine 0 Yes [id number] 1{spray Use 1 [facility] 137 mcg 1-10 } [place] in ity of (0.1 %) 00:00: each nasal spray 00 nostril in [facility] the Branch morning and 1 [place] in the evening. Use in each nostril as directed cetirizine 0 Yes [id number] 10mg Take 1 U nivers 10 mg 1-10 tablet by ity of tablet 00:00: mouth in [place] the Medical morning Branch and 1 tablet in the evening. fluticasone 0 Yes [id number] 2{puff} Inhale 2 [facility] propion-lauren 1-10 Puffs in ity of meteroL 00:00: the [place] (ADVAIR 00 morning Medical HFA) 230-21 and 2 Branch mcg/actuati Puffs in on inhaler the evening. ipratropium 0 Yes [id number] 3mL Inhale 3 [facility] -albuteroL 1-10 mL 4 ity of 0.5 mg-3 00:00: (four) [place] mg(2.5 mg 00 times Medical base)/3 mL daily. [facility] nebulizer solution EPINEPHrine Yes [id number] INJECT [facility] 0.3 mg/0.3 1-10 0.3ML ity of mL 00:00: INTRAMUSCU [place] injection 00 LARLY Medica l NEEDED FOR Branch ANAPHYLAXI S azelastine 0 Yes [id number] 1{spray Use 1 [facility] 137 mcg 1-10 } [place] in ity of (0.1 %) 00:00: each [place] nasal spray 00 nostril in [facility] the Branch morning and 1 [place] in the evening. Use in each nostril as directed cetirizine 0 Yes [id number] 10mg Take 1 U nivers 10 mg 1-10 tablet by ity of tablet 00:00: mouth in [place] [address] the [facility] and 1 tablet in the evening. fluticasone 0 Yes [id number] 2{puff} Inhale 2 [facility] propion-lauren 1-10 Puffs in ity of meteroL 00:00: the [place] (ADVAIR 00 morning Medical HFA) 230-21 and 2 Branch mcg/actuati Puffs in on inhaler the evening. ipratropium 0 Yes [id number] 3mL Inhale 3 [facility] -albuteroL 1-10 mL 4 ity of 0.5 mg-3 00:00: (four) [place] mg(2.5 mg 00 times Medical base)/3 mL daily. Branch nebulizer solution EPINEPHrine Yes [id number] INJECT [facility] 0.3 mg/0.3 1-10 0.3ML ity of mL 00:00: INTRAMUSCU [place] injection 00 LARLY Medica l NEEDED FOR Branch ANAPHYLAXI S azelastine Yes [id number] 1{spray Use 1 [facility] 137 mcg 1-10 } [place] in ity of (0.1 %) 00:00: each [place] nasal spray 00 nostril in [facility] the Branch morning and 1 [place] in the evening. Use in each nostril as directed cetirizine Yes [id number] 10mg Take 1 U nivers 10 mg 1-10 tablet by ity of tablet 00:00: mouth in [place] 00 the Medical morning Branch and 1 tablet in the evening. fluticasone Yes [id number] 2{puff} Inhale 2 [facility] propion-lauren 1-10 Puffs in ity of meteroL 00:00: the [place] (ADVAIR 00 morning Medical HFA) 230-21 and 2 Branch mcg/actuati Puffs in on inhaler the evening. ipratropium Yes [id number] 3mL Inhale 3 [facility] -albuteroL 1-10 mL 4 ity of 0.5 mg-3 00:00: (four) [place] mg(2.5 mg 00 times Medical base)/3 mL daily. Branch nebulizer solution EPINEPHrine Yes [id number] INJECT Univers 0.3 mg/0.3 1-10 0.3ML ity of mL 00:00: INTRAMUSCU [place] injection 00 LARLY Medica l NEEDED FOR Branch ANAPHYLAXI S azelastine Yes [id number] 1{spray Use 1 [facility] 137 mcg 1-10 } [place] in ity of (0.1 %) 00:00: each [place] nasal spray 00 nostril in [facility] the Branch morning and 1 [place] in the evening. Use in each nostril as directed cetirizine Yes [id number] 10mg Take 1 U nivers 10 mg 1-10 tablet by ity of tablet 00:00: mouth in [place] 00 the Medical morning Branch and 1 tablet in the evening. fluticasone Yes [id number] 2{puff} Inhale 2 [facility] propion-lauren 1-10 Puffs in ity of meteroL 00:00: the [place] (ADVAIR 00 morning Medical HFA) 230-21 and 2 Branch mcg/actuati Puffs in on inhaler the evening. ipratropium Yes [id number] 3mL Inhale 3 [facility] -albuteroL 1-10 mL 4 ity of 0.5 mg-3 00:00: (four) [place] mg(2.5 mg 00 times Medical base)/3 mL daily. Branch nebulizer solution EPINEPHrine Yes [id number] INJECT Univers 0.3 mg/0.3 1-10 0.3ML ity of mL 00:00: INTRAMUSCU [place] injection 00 LARLY Medica l NEEDED FOR Branch ANAPHYLAXI S azelastine Yes [id number] 1{spray Use 1 [facility] 137 mcg 1-10 } [place] in ity of (0.1 %) 00:00: each [place] nasal spray 00 nostril in [facility] the Branch morning and 1 [place] in the evening. Use in each nostril as directed cetirizine Yes [id number] 10mg Take 1 U nivers 10 mg 1-10 tablet by ity of tablet 00:00: mouth in [place] 00 the Medical morning Branch and 1 tablet in the evening. fluticasone Yes [id number] 2{puff} Inhale 2 [facility] propion-lauren 1-10 Puffs in ity of meteroL 00:00: the [place] (ADVAIR 00 morning Medical HFA) 230-21 and 2 Branch mcg/actuati Puffs in on inhaler the evening. ipratropium Yes [id number] 3mL Inhale 3 [facility] -albuteroL 1-10 mL 4 ity of 0.5 mg-3 00:00: (four) [place] mg(2.5 mg 00 times Medical base)/3 mL daily. Branch nebulizer solution EPINEPHrine Yes [id number] INJECT Univers 0.3 mg/0.3 1-10 0.3ML ity of mL 00:00: INTRAMUSCU [place] injection 00 LARLY Medica l NEEDED FOR Branch ANAPHYLAXI S azelastine 2022-0 Yes [id number] 1{spray Use 1 [facility] 137 mcg 1-10 } [place] in ity of (0.1 %) 00:00: each [place] nasal spray 00 nostril in [facility] morning and 1 [place] in the evening. Use in each nostril as directed cetirizine 2022-0 Yes [id number] 10mg Take 1 U nivers 10 mg 1-10 tablet by ity of tablet 00:00: mouth in [address] and 1 tablet in the evening. fluticasone 2022-0 Yes [id number] 2{puff} Inhale 2 [facility] propion-lauren 1-10 Puffs in ity of meteroL 00:00: the [place] (ADVAIR morning Medical HFA) 230-21 and 2 Branch mcg/actuati Puffs in on inhaler the evening. ipratropium 2022-0 Yes [id number] 3mL Inhale 3 [facility] -albuteroL 1-10 mL 4 ity of 0.5 mg-3 00:00: (four) [place] mg(2.5 mg 00 times Medical base)/3 mL daily. [place] nebulizer solution EPINEPHrine 0 Yes [id number] INJECT Univers 0.3 mg/0.3 1-10 0.3ML ity of mL 00:00: INTRAMUSCU [place] injection 00 LARLY Medica l NEEDED FOR Branch ANAPHYLAXI S azelastine 2022-0 Yes [id number] 1{spray Use 1 [facility] 137 mcg 1-10 } [place] in ity of (0.1 %) 00:00: each [place] nasal spray 00 nostril in [facility] morning and 1 [place] in the evening. Use in each nostril as directed cetirizine 2022-0 Yes [id number] 10mg Take 1 U nivers 10 mg 1-10 tablet by ity of tablet 00:00: mouth in [address] and 1 tablet in the evening. fluticasone 2022-0 Yes [id number] 2{puff} Inhale 2 [facility] propion-lauren 1-10 Puffs in ity of meteroL 00:00: the [place] (ADVAIR morning Medical HFA) 230-21 and 2 Branch mcg/actuati Puffs in on inhaler the evening. ipratropium 2022-0 Yes [id number] 3mL Inhale 3 [facility] -albuteroL 1-10 mL 4 ity of 0.5 mg-3 00:00: (four) [place] mg(2.5 mg 00 times Medical base)/3 mL daily. Branch nebulizer solution EPINEPHrine Yes [id number] INJECT Univers 0.3 mg/0.3 1-10 0.3ML ity of mL 00:00: INTRAMUSCU [place] injection 00 LARLY Medica l NEEDED FOR Branch ANAPHYLAXI S azelastine 0 Yes [id number] 1{spray Use 1 [facility] 137 mcg 1-10 } [place] in ity of (0.1 %) 00:00: each [place] nasal spray 00 nostril in [facility] the Branch morning and 1 [place] in the evening. Use in each nostril as directed cetirizine 2022- Yes [id number] 10mg Take 1 U nivers 10 mg 1-10 tablet by ity of tablet 00:00: mouth in [place] [address] the Medical morning Branch and 1 tablet in the evening. fluticasone Yes [id number] 2{puff} Inhale 2 [facility] propion-lauren 1-10 Puffs in ity of meteroL 00:00: the [place] (ADVAIR 00 morning Medical HFA) 230-21 and 2 Branch mcg/actuati Puffs in on inhaler the evening. ipratropium Yes [id number] 3mL Inhale 3 [facility] -albuteroL 1-10 mL 4 ity of 0.5 mg-3 00:00: (four) [place] mg(2.5 mg 00 times Medical base)/3 mL daily. Branch nebulizer solution EPINEPHrine Yes [id number] INJECT Univers 0.3 mg/0.3 1-10 0.3ML ity of mL 00:00: INTRAMUSCU [place] injection 00 LARLY Medica l NEEDED FOR Branch ANAPHYLAXI S azelastine 2022-0 Yes [id number] 1{spray Use 1 [facility] 137 mcg 1-10 } [place] in ity of (0.1 %) 00:00: each [place] nasal spray 00 nostril in [facility] the Branch morning and 1 [place] in the evening. Use in each nostril as directed cetirizine 2022-0 Yes [id number] 10mg Take 1 U nivers 10 mg 1-10 tablet by ity of tablet 00:00: mouth in [place] 00 the Medical morning Branch and 1 tablet in the evening. fluticasone 2022-0 Yes [id number] 2{puff} Inhale 2 [facility] propion-lauren 1-10 Puffs in ity of meteroL 00:00: the [place] (ADVAIR morning Medical HFA) 230-21 and 2 Branch mcg/actuati Puffs in on inhaler the evening. ipratropium 2022-0 Yes [id number] 3mL Inhale 3 [facility] -albuteroL 1-10 mL 4 ity of 0.5 mg-3 00:00: (four) [place] mg(2.5 mg 00 times Medical base)/3 mL daily. Branch nebulizer solution EPINEPHrine 0 Yes [id number] INJECT Univers 0.3 mg/0.3 1-10 0.3ML ity of mL 00:00: INTRAMUSCU [place] injection 00 LARLY Medica l NEEDED FOR Branch ANAPHYLAXI S azelastine 2022-0 Yes [id number] 1{spray Use 1 [facility] 137 mcg 1-10 } [place] in ity of (0.1 %) 00:00: each [place] nasal spray 00 nostril in [facility] the Branch morning and 1 [place] in the evening. Use in each nostril as directed cetirizine 2022-0 Yes [id number] 10mg Take 1 U nivers 10 mg 1-10 tablet by ity of tablet 00:00: mouth in [place] 00 the Medical morning Branch and 1 tablet in the evening. fluticasone 2022-0 Yes [id number] 2{puff} Inhale 2 [facility] propion-lauren 1-10 Puffs in ity of meteroL 00:00: the [place] (ADVAIR morning Medical HFA) 230-21 and 2 Branch mcg/actuati Puffs in on inhaler the evening. ipratropium 2022-0 Yes [id number] 3mL Inhale 3 [facility] -albuteroL 1-10 mL 4 ity of 0.5 mg-3 00:00: (four) [place] mg(2.5 mg 00 times Medical base)/3 mL daily. Branch nebulizer solution EPINEPHrine 2022-0 Yes [id number] INJECT Univers 0.3 mg/0.3 1-10 0.3ML ity of mL 00:00: INTRAMUSCU [place] injection 00 LARLY Medica l NEEDED FOR Branch ANAPHYLAXI S azelastine Yes [id number] 1{spray Use 1 [facility] 137 mcg 1-10 } [place] in ity of (0.1 %) 00:00: each [place] nasal spray 00 nostril in [facility] morning and 1 [place] in the evening. Use in each nostril as directed cetirizine Yes [id number] 10mg Take 1 U nivers 10 mg 1-10 tablet by ity of tablet 00:00: mouth in [place] the [facility] Branch and 1 tablet in the evening. fluticasone 0 Yes [id number] 2{puff} Inhale 2 [facility] propion-lauren 1-10 Puffs in ity of meteroL 00:00: the [place] (ADVAIR morning Medical HFA) 230-21 and 2 Branch mcg/actuati Puffs in on inhaler the evening. ipratropium Yes [id number] 3mL Inhale 3 [facility] -albuteroL 1-10 mL 4 ity of 0.5 mg-3 00:00: (four) [place] mg(2.5 mg 00 times Medical base)/3 mL daily. Branch nebulizer solution EPINEPHrine Yes [id number] INJECT Univers 0.3 mg/0.3 1-10 0.3ML ity of mL 00:00: INTRAMUSCU [place] injection 00 LARLY Medica l NEEDED FOR Branch ANAPHYLAXI S azelastine 0 Yes [id number] 1{spray Use 1 [facility] 137 mcg 1-10 } [place] in ity of (0.1 %) 00:00: each [place] nasal spray 00 nostril in [facility] morning and 1 [place] in the evening. Use in each nostril as directed cetirizine 0 Yes [id number] 10mg Take 1 U nivers 10 mg 1-10 tablet by ity of tablet 00:00: mouth in [place] [address] the [facility] Branch and 1 tablet in the evening. fluticasone 0 Yes [id number] 2{puff} Inhale 2 [facility] propion-lauren 1-10 Puffs in ity of meteroL 00:00: the [place] (ADVAIR morning Medical HFA) 230-21 and 2 Branch mcg/actuati Puffs in on inhaler the evening. ipratropium Yes [id number] 3mL Inhale 3 [facility] -albuteroL 1-10 mL 4 ity of 0.5 mg-3 00:00: (four) [place] mg(2.5 mg 00 times Medical base)/3 mL daily. Branch nebulizer solution EPINEPHrine Yes [id number] INJECT Univers 0.3 mg/0.3 1-10 0.3ML ity of mL 00:00: INTRAMUSCU [place] injection 00 LARLY Medica l NEEDED FOR Branch ANAPHYLAXI S azelastine Yes [id number] 1{spray Use 1 [facility] 137 mcg 1-10 } [place] in ity of (0.1 %) 00:00: each [place] nasal spray 00 nostril in [facility] the Branch morning and 1 [place] in the evening. Use in each nostril as directed cetirizine Yes [id number] 10mg Take 1 U nivers 10 mg 1-10 tablet by ity of tablet 00:00: mouth in [place] 00 the Medical morning Branch and 1 tablet in the evening. fluticasone Yes [id number] 2{puff} Inhale 2 [facility] propion-lauren 1-10 Puffs in ity of meteroL 00:00: the [place] (ADVAIR 00 morning Medical HFA) 230-21 and 2 Branch mcg/actuati Puffs in on inhaler the evening. ipratropium Yes [id number] 3mL Inhale 3 [facility] -albuteroL 1-10 mL 4 ity of 0.5 mg-3 00:00: (four) [place] mg(2.5 mg 00 times Medical base)/3 mL daily. Branch nebulizer solution EPINEPHrine Yes [id number] INJECT Univers 0.3 mg/0.3 1-10 0.3ML ity of mL 00:00: INTRAMUSCU [place] injection 00 LARLY Medica l NEEDED FOR Branch ANAPHYLAXI S azelastine 0 Yes [id number] 1{spray Use 1 [facility] 137 mcg 1-10 } [place] in ity of (0.1 %) 00:00: each [place] nasal spray 00 nostril in [facility] morning and 1 [place] in the evening. Use in each nostril as directed cetirizine 0 Yes [id number] 10mg Take 1 U nivers 10 mg 1-10 tablet by ity of tablet 00:00: mouth in [address] and 1 tablet in the evening. fluticasone 0 Yes [id number] 2{puff} Inhale 2 [facility] propion-lauren 1-10 Puffs in ity of meteroL 00:00: the [place] (ADVAIR morning [facility]) 230-21 and 2 Branch mcg/actuati Puffs in on inhaler the evening. ipratropium Yes [id number] 3mL Inhale 3 Univers -albuteroL 1-10 mL 4 ity of 0.5 mg-3 00:00: (four) [place] mg(2.5 mg 00 times Medical base)/3 mL daily. [facility] nebulizer solution EPINEPHrine Yes [id number] INJECT Univers 0.3 mg/0.3 1-10 0.3ML ity of mL 00:00: INTRAMUSCU [place] injection 00 LARLY Medica l NEEDED FOR [facility] ANAPHYLAXI S azelastine 0 Yes [id number] 1{spray Use 1 [facility] 137 mcg 1-10 } [place] in ity of (0.1 %) 00:00: each [place] nasal spray 00 nostril in [facility] the morning and 1 [place] in the evening. Use in each nostril as directed cetirizine 0 Yes [id number] 10mg Take 1 U nivers 10 mg 1-10 tablet by ity of tablet 00:00: mouth in [address] and 1 tablet in the evening. fluticasone 0 Yes [id number] 2{puff} Inhale 2 [facility] propion-lauren 1-10 Puffs in ity of meteroL 00:00: the [place] (ADVAIR morning Medical [facility]) 230-21 and 2 Branch mcg/actuati Puffs in on inhaler the evening. ipratropium 0 Yes [id number] 3mL Inhale 3 [facility] -albuteroL 1-10 mL 4 ity of 0.5 mg-3 00:00: (four) [place] mg(2.5 mg 00 times Medical base)/3 mL daily. [facility] nebulizer solution EPINEPHrine Yes [id number] INJECT Univers 0.3 mg/0.3 1-10 0.3ML ity of mL 00:00: INTRAMUSCU [place] injection 00 LARLY Medica l NEEDED FOR Branch ANAPHYLAXI S azelastine Yes [id number] 1{spray Use 1 [facility] 137 mcg 1-10 } [place] in ity of (0.1 %) 00:00: each [place] nasal spray 00 nostril in [facility] the Branch morning and 1 [place] in the evening. Use in each nostril as directed cetirizine Yes [id number] 10mg Take 1 U nivers 10 mg 1-10 tablet by ity of tablet 00:00: mouth in [place] [address] the Medical morning Branch and 1 tablet in the evening. fluticasone Yes [id number] 2{puff} Inhale 2 [facility] propion-lauren 1-10 Puffs in ity of meteroL 00:00: the [place] (ADVAIR 00 morning Medical HFA) 230-21 and 2 Branch mcg/actuati Puffs in on inhaler the evening. ipratropium Yes [id number] 3mL Inhale 3 [facility] -albuteroL 1-10 mL 4 ity of 0.5 mg-3 00:00: (four) [place] mg(2.5 mg 00 times Medical base)/3 mL daily. Branch nebulizer solution EPINEPHrine Yes [id number] INJECT Univers 0.3 mg/0.3 1-10 0.3ML ity of mL 00:00: INTRAMUSCU [place] injection 00 LARLY Medica l NEEDED FOR Branch ANAPHYLAXI S azelastine Yes [id number] 1{spray Use 1 [facility] 137 mcg 1-10 } [place] in ity of (0.1 %) 00:00: each [place] nasal spray 00 nostril in [facility] the Branch morning and 1 [place] in the evening. Use in each nostril as directed cetirizine Yes [id number] 10mg Take 1 U nivers 10 mg 1-10 tablet by ity of tablet 00:00: mouth in [place] [address] the Medical morning Branch and 1 tablet in the evening. fluticasone Yes [id number] 2{puff} Inhale 2 [facility] propion-lauren 1-10 Puffs in ity of meteroL 00:00: the [place] (ADVAIR 00 morning Medical HFA) 230-21 and 2 Branch mcg/actuati Puffs in on inhaler the evening. ipratropium 0 Yes [id number] 3mL Inhale 3 [facility] -albuteroL 1-10 mL 4 ity of 0.5 mg-3 00:00: (four) [place] mg(2.5 mg 00 times Medical base)/3 mL daily. Branch nebulizer solution EPINEPHrine Yes [id number] INJECT Univers 0.3 mg/0.3 1-10 0.3ML ity of mL 00:00: INTRAMUSCU [place] injection 00 LARLY Medica l NEEDED FOR Branch ANAPHYLAXI S cetirizine 0 Yes [id number] 10mg Take 1 U nivers 10 mg 1-10 tablet by ity of tablet 00:00: mouth in [place] 00 the Medical morning Branch and 1 tablet in the evening. fluticasone 0 Yes [id number] 2{puff} Inhale 2 [facility] propion-lauren 1-10 Puffs in ity of meteroL 00:00: the [place] (ADVAIR 00 morning Medical HFA) 230-21 and 2 Branch mcg/actuati Puffs in on inhaler the evening. ipratropium 0 Yes [id number] 3mL Inhale 3 [facility] -albuteroL 1-10 mL 4 ity of 0.5 mg-3 00:00: (four) [place] mg(2.5 mg 00 times Medical base)/3 mL daily. Branch nebulizer solution EPINEPHrine 0 Yes [id number] INJECT Univers 0.3 mg/0.3 1-10 0.3ML ity of mL 00:00: INTRAMUSCU [place] injection 00 LARLY Medica l NEEDED FOR Branch ANAPHYLAXI S cetirizine 0 Yes [id number] 10mg Take 1 U nivers 10 mg 1-10 tablet by ity of tablet 00:00: mouth in [place] 00 the Medical morning Branch and 1 tablet in the evening. fluticasone 0 Yes [id number] 2{puff} Inhale 2 [facility] propion-lauren 1-10 Puffs in ity of meteroL 00:00: the [place] (ADVAIR 00 morning Medical HFA) 230-21 and 2 Branch mcg/actuati Puffs in on inhaler the evening. ipratropium 2022-0 Yes [id number] 3mL Inhale 3 Univers -albuteroL 1-10 mL 4 ity of 0.5 mg-3 00:00: (four) [place] mg(2.5 mg 00 times Medical base)/3 mL daily. Branch nebulizer solution EPINEPHrine 0 Yes [id number] INJECT Univers 0.3 mg/0.3 1-10 0.3ML ity of mL 00:00: INTRAMUSCU [place] injection 00 LARLY Medica l NEEDED FOR Branch ANAPHYLAXI S cetirizine 2022-0 Yes [id number] 10mg Take 1 U nivers 10 mg 1-10 tablet by ity of tablet 00:00: mouth in [place] the Medical morning Branch and 1 tablet in the evening. fluticasone 2022-0 Yes [id number] 2{puff} Inhale 2 [facility] propion-lauren 1-10 Puffs in ity of meteroL 00:00: the [place] (ADVAIR morning Medical HFA) 230-21 and 2 Branch mcg/actuati Puffs in on inhaler the evening. ipratropium 2022-0 Yes [id number] 3mL Inhale 3 Univers -albuteroL 1-10 mL 4 ity of 0.5 mg-3 00:00: (four) [place] mg(2.5 mg 00 times Medical base)/3 mL daily. Branch nebulizer solution EPINEPHrine 2022-0 Yes [id number] INJECT Univers 0.3 mg/0.3 1-10 0.3ML ity of mL 00:00: INTRAMUSCU [place] injection 00 LARLY Medica l NEEDED FOR Branch ANAPHYLAXI S cetirizine 2022-0 Yes [id number] 10mg Take 1 U nivers 10 mg 1-10 tablet by ity of tablet 00:00: mouth in [place] the Medical morning Branch and 1 tablet in the evening. fluticasone 2022-0 Yes [id number] 2{puff} Inhale 2 [facility] propion-lauren 1-10 Puffs in ity of meteroL 00:00: the [place] (ADVAIR morning Medical HFA) 230-21 and 2 Branch mcg/actuati Puffs in on inhaler the evening. ipratropium Yes [id number] 3mL Inhale 3 Univers -albuteroL 1-10 mL 4 ity of 0.5 mg-3 00:00: (four) [place] mg(2.5 mg 00 times Medical base)/3 mL daily. Branch nebulizer solution EPINEPHrine Yes [id number] INJECT Univers 0.3 mg/0.3 1-10 0.3ML ity of mL 00:00: INTRAMUSCU [place] injection 00 LARLY Medica l NEEDED FOR Branch ANAPHYLAXI S cetirizine Yes [id number] 10mg Take 1 U nivers 10 mg 1-10 tablet by ity of tablet 00:00: mouth in [place] 00 the Medical morning Branch and 1 tablet in the evening. fluticasone Yes [id number] 2{puff} Inhale 2 [facility] propion-lauren 1-10 Puffs in ity of meteroL 00:00: the [place] (ADVAIR 00 morning Medical HFA) 230-21 and 2 Branch mcg/actuati Puffs in on inhaler the evening. ipratropium 0 Yes [id number] 3mL Inhale 3 Univers -albuteroL 1-10 mL 4 ity of 0.5 mg-3 00:00: (four) [place] mg(2.5 mg 00 times Medical base)/3 mL daily. Branch nebulizer solution EPINEPHrine Yes [id number] INJECT Univers 0.3 mg/0.3 1-10 0.3ML ity of mL 00:00: INTRAMUSCU [place] injection 00 LARLY Medica l NEEDED FOR Branch ANAPHYLAXI S cetirizine 0 Yes [id number] 10mg Take 1 U nivers 10 mg 1-10 tablet by ity of tablet 00:00: mouth in [place] 00 the Medical morning Branch and 1 tablet in the evening. fluticasone 2022-0 Yes [id number] 2{puff} Inhale 2 [facility] propion-lauren 1-10 Puffs in ity of meteroL 00:00: the [place] (ADVAIR 00 morning Medical HFA) 230-21 and 2 Branch mcg/actuati Puffs in on inhaler the evening. ipratropium 0 Yes [id number] 3mL Inhale 3 [facility] -albuteroL 1-10 mL 4 ity of 0.5 mg-3 00:00: (four) [place] mg(2.5 mg 00 times Medical base)/3 mL daily. Branch nebulizer solution EPINEPHrine Yes [id number] INJECT Univers 0.3 mg/0.3 1-10 0.3ML ity of mL 00:00: INTRAMUSCU [place] injection 00 LARLY Medica l NEEDED FOR Branch ANAPHYLAXI S cetirizine Yes [id number] 10mg Take 1 U nivers 10 mg 1-10 tablet by ity of tablet 00:00: mouth in [place] 00 the Medical morning Branch and 1 tablet in the evening. fluticasone 0 Yes [id number] 2{puff} Inhale 2 [facility] propion-lauren 1-10 Puffs in ity of meteroL 00:00: the [place] (ADVAIR 00 morning Medical HFA) 230-21 and 2 Branch mcg/actuati Puffs in on inhaler the evening. ipratropium 0 Yes [id number] 3mL Inhale 3 [facility] -albuteroL 1-10 mL 4 ity of 0.5 mg-3 00:00: (four) [place] mg(2.5 mg 00 times Medical base)/3 mL daily. Branch nebulizer solution EPINEPHrine Yes [id number] INJECT Univers 0.3 mg/0.3 1-10 0.3ML ity of mL 00:00: INTRAMUSCU [place] injection 00 LARLY Medica l NEEDED FOR Branch ANAPHYLAXI S cetirizine 0 Yes [id number] 10mg Take 1 U nivers 10 mg 1-10 tablet by ity of tablet 00:00: mouth in [place] 00 the Medical morning Branch and 1 tablet in the evening. fluticasone 2022-0 Yes [id number] 2{puff} Inhale 2 [facility] propion-lauren 1-10 Puffs in ity of meteroL 00:00: the [place] (ADVAIR 00 morning Medical HFA) 230-21 and 2 Branch mcg/actuati Puffs in on inhaler the evening. ipratropium 2022-0 Yes [id number] 3mL Inhale 3 [facility] -albuteroL 1-10 mL 4 ity of 0.5 mg-3 00:00: (four) [place] mg(2.5 mg 00 times Medical base)/3 mL daily. Branch nebulizer solution EPINEPHrine 0 Yes [id number] INJECT Univers 0.3 mg/0.3 1-10 0.3ML ity of mL 00:00: INTRAMUSCU [place] injection 00 LARLY Medica l NEEDED FOR Branch ANAPHYLAXI S cetirizine 0 Yes [id number] 10mg Take 1 U nivers 10 mg 1-10 tablet by ity of tablet 00:00: mouth in [place] 00 the Medical morning Branch and 1 tablet in the evening. fluticasone 2022-0 Yes [id number] 2{puff} Inhale 2 [facility] propion-lauren 1-10 Puffs in ity of meteroL 00:00: the [place] (ADVAIR morning Medical HFA) 230-21 and 2 Branch mcg/actuati Puffs in on inhaler the evening. ipratropium 2022-0 Yes [id number] 3mL Inhale 3 [facility] -albuteroL 1-10 mL 4 ity of 0.5 mg-3 00:00: (four) [place] mg(2.5 mg 00 times Medical base)/3 mL daily. Branch nebulizer solution EPINEPHrine 0 Yes [id number] INJECT [facility] 0.3 mg/0.3 1-10 0.3ML ity of mL 00:00: INTRAMUSCU [place] injection 00 LARLY Medica l NEEDED FOR Branch ANAPHYLAXI S cetirizine 2022-0 Yes [id number] 10mg Take 1 U nivers 10 mg 1-10 tablet by ity of tablet 00:00: mouth in [place] 00 the Medical morning Branch and 1 tablet in the evening. fluticasone 2022-0 Yes [id number] 2{puff} Inhale 2 [facility] propion-lauren 1-10 Puffs in ity of meteroL 00:00: the [place] (ADVAIR 00 morning Medical HFA) 230-21 and 2 Branch mcg/actuati Puffs in on inhaler the evening. ipratropium 2022-0 Yes [id number] 3mL Inhale 3 [facility] -albuteroL 1-10 mL 4 ity of 0.5 mg-3 00:00: (four) [place] mg(2.5 mg 00 times Medical base)/3 mL daily. Branch nebulizer solution EPINEPHrine Yes [id number] INJECT [facility] 0.3 mg/0.3 1-10 0.3ML ity of mL 00:00: INTRAMUSCU [place] injection 00 LARLY Medica l NEEDED FOR Branch ANAPHYLAXI S cetirizine Yes [id number] 10mg Take 1 U nivers 10 mg 1-10 tablet by ity of tablet 00:00: mouth in [place] 00 the Medical morning Branch and 1 tablet in the evening. fluticasone Yes [id number] 2{puff} Inhale 2 [facility] propion-lauren 1-10 Puffs in ity of meteroL 00:00: the [place] (ADVAIR 00 morning Medical HFA) 230-21 and 2 Branch mcg/actuati Puffs in on inhaler the evening. ipratropium Yes [id number] 3mL Inhale 3 [facility] -albuteroL 1-10 mL 4 ity of 0.5 mg-3 00:00: (four) [place] mg(2.5 mg 00 times Medical base)/3 mL daily. Branch nebulizer solution EPINEPHrine Yes [id number] INJECT [facility] 0.3 mg/0.3 1-10 0.3ML ity of mL 00:00: INTRAMUSCU [place] injection 00 LARLY Medica l NEEDED FOR Branch ANAPHYLAXI S cetirizine Yes [id number] 10mg Take 1 U nivers 10 mg 1-10 tablet by ity of tablet 00:00: mouth in [place] 00 the Medical morning Branch and 1 tablet in the evening. fluticasone Yes [id number] 2{puff} Inhale 2 [facility] propion-lauren 1-10 Puffs in ity of meteroL 00:00: the [place] (ADVAIR 00 morning Medical HFA) 230-21 and 2 Branch mcg/actuati Puffs in on inhaler the evening. ipratropium 0 Yes [id number] 3mL Inhale 3 [facility] -albuteroL 1-10 mL 4 ity of 0.5 mg-3 00:00: (four) [place] mg(2.5 mg 00 times Medical base)/3 mL daily. Branch nebulizer solution EPINEPHrine Yes [id number] INJECT [facility] 0.3 mg/0.3 1-10 0.3ML ity of mL 00:00: INTRAMUSCU [place] injection 00 LARLY Medica l NEEDED FOR Branch ANAPHYLAXI S cetirizine 0 Yes [id number] 10mg Take 1 U nivers 10 mg 1-10 tablet by ity of tablet 00:00: mouth in [place] 00 the Medical morning Branch and 1 tablet in the evening. fluticasone 2022-0 Yes [id number] 2{puff} Inhale 2 [facility] propion-lauren 1-10 Puffs in ity of meteroL 00:00: the [place] (ADVAIR 00 morning Medical HFA) 230-21 and 2 Branch mcg/actuati Puffs in on inhaler the evening. ipratropium 2022-0 Yes [id number] 3mL Inhale 3 [facility] -albuteroL 1-10 mL 4 ity of 0.5 mg-3 00:00: (four) [place] mg(2.5 mg 00 times Medical base)/3 mL daily. Branch nebulizer solution EPINEPHrine Yes [id number] INJECT [facility] 0.3 mg/0.3 1-10 0.3ML ity of mL 00:00: INTRAMUSCU [place] injection 00 LARLY Medica l NEEDED FOR Branch ANAPHYLAXI S cetirizine 2022-0 Yes [id number] 10mg Take 1 U nivers 10 mg 1-10 tablet by ity of tablet 00:00: mouth in [place] 00 the Medical morning Branch and 1 tablet in the evening. fluticasone 2022-0 Yes [id number] 2{puff} Inhale 2 [facility] propion-lauren 1-10 Puffs in ity of meteroL 00:00: the [place] (ADVAIR 00 morning Medical HFA) 230-21 and 2 Branch mcg/actuati Puffs in on inhaler the evening. ipratropium 2022-0 Yes [id number] 3mL Inhale 3 [facility] -albuteroL 1-10 mL 4 ity of 0.5 mg-3 00:00: (four) [place] mg(2.5 mg 00 times Medical base)/3 mL daily. Branch nebulizer solution EPINEPHrine 2022-0 Yes [id number] INJECT [facility] 0.3 mg/0.3 1-10 0.3ML ity of mL 00:00: INTRAMUSCU [place] injection 00 LARLY Medica l NEEDED FOR Branch ANAPHYLAXI S cetirizine 0 Yes [id number] 10mg Take 1 U nivers 10 mg 1-10 tablet by ity of tablet 00:00: mouth in [place] 00 the Medical morning Branch and 1 tablet in the evening. fluticasone 2022-0 Yes [id number] 2{puff} Inhale 2 [facility] propion-lauren 1-10 Puffs in ity of meteroL 00:00: the [place] [facility] 230-21 and 2 Branch mcg/actuati Puffs in on inhaler the evening. ipratropium 2022-0 Yes [id number] 3mL Inhale 3 [facility] -albuteroL 1-10 mL 4 ity of 0.5 mg-3 00:00: (four) [place] mg(2.5 mg 00 times Medical base)/3 mL daily. Branch nebulizer solution EPINEPHrine Yes [id number] INJECT [facility] 0.3 mg/0.3 1-10 0.3ML ity of mL 00:00: INTRAMUSCU [place] injection 00 LARLY Medica l NEEDED FOR Branch ANAPHYLAXI S cetirizine 2022-0 Yes [id number] 10mg Take 1 U nivers 10 mg 1-10 tablet by ity of tablet 00:00: mouth in [place] 00 the Medical morning Branch and 1 tablet in the evening. fluticasone 2022-0 Yes [id number] 2{puff} Inhale 2 [facility] propion-lauren 1-10 Puffs in ity of meteroL 00:00: the [place] [facility] and 2 Branch mcg/actuati Puffs in on inhaler the evening. ipratropium 2022-0 Yes [id number] 3mL Inhale 3 [facility] -albuteroL 1-10 mL 4 ity of 0.5 mg-3 00:00: (four) [place] mg(2.5 mg 00 times Medical base)/3 mL daily. Branch nebulizer solution EPINEPHrine 0 Yes [id number] INJECT Univers 0.3 mg/0.3 1-10 0.3ML ity of mL 00:00: INTRAMUSCU [place] injection 00 LARLY Medica l NEEDED FOR Branch ANAPHYLAXI S cetirizine 2022-0 Yes [id number] 10mg Take 1 U nivers 10 mg 1-10 tablet by ity of tablet 00:00: mouth in [place] 00 the Medical morning Branch and 1 tablet in the evening. fluticasone 2022-0 Yes [id number] 2{puff} Inhale 2 [facility] propion-lauren 1-10 Puffs in ity of meteroL 00:00: the [place] (ADVAIR 00 morning Medical HFA) 230-21 and 2 Branch mcg/actuati Puffs in on inhaler the evening. ipratropium 2022-0 Yes [id number] 3mL Inhale 3 [facility] -albuteroL 1-10 mL 4 ity of 0.5 mg-3 00:00: (four) [place] mg(2.5 mg 00 times Medical base)/3 mL daily. Branch nebulizer solution EPINEPHrine 0 Yes [id number] INJECT Univers 0.3 mg/0.3 1-10 0.3ML ity of mL 00:00: INTRAMUSCU [place] injection 00 LARLY Medica l NEEDED FOR Branch ANAPHYLAXI S cetirizine 2022-0 Yes [id number] 10mg Take 1 U nivers 10 mg 1-10 tablet by ity of tablet 00:00: mouth in [place] 00 the Medical morning Branch and 1 tablet in the evening. fluticasone 2022-0 Yes [id number] 2{puff} Inhale 2 [facility] propion-lauren 1-10 Puffs in ity of meteroL 00:00: the [place] (ADVAIR 00 morning Medical HFA) 230-21 and 2 Branch mcg/actuati Puffs in on inhaler the evening. ipratropium 2022-0 Yes [id number] 3mL Inhale 3 [facility] -albuteroL 1-10 mL 4 ity of 0.5 mg-3 00:00: (four) [place] mg(2.5 mg 00 times Medical base)/3 mL daily. Branch nebulizer solution EPINEPHrine 2022-0 Yes [id number] INJECT Univers 0.3 mg/0.3 1-10 0.3ML ity of mL 00:00: INTRAMUSCU [place] injection 00 LARLY Medica l NEEDED FOR Branch ANAPHYLAXI S cetirizine 2022-0 Yes [id number] 10mg Take 1 U nivers 10 mg 1-10 tablet by ity of tablet 00:00: mouth in [place] 00 the Medical morning Branch and 1 tablet in the evening. fluticasone 2022-0 Yes [id number] 2{puff} Inhale 2 [facility] propion-lauren 1-10 Puffs in ity of meteroL 00:00: the [place] (ADVAIR 00 morning Medical HFA) 230-21 and 2 Branch mcg/actuati Puffs in on inhaler the evening. ipratropium 2022-0 Yes [id number] 3mL Inhale 3 Univers -albuteroL 1-10 mL 4 ity of 0.5 mg-3 00:00: (four) [place] mg(2.5 mg 00 times Medical base)/3 mL daily. Branch nebulizer solution EPINEPHrine Yes [id number] INJECT Univers 0.3 mg/0.3 1-10 0.3ML ity of mL 00:00: INTRAMUSCU [place] injection 00 LARLY Medica l NEEDED FOR Branch ANAPHYLAXI S fluticasone 2022-0 Yes [id number] 2{puff} Inhale 2 [facility] propion-lauren 1-10 Puffs in ity of meteroL 00:00: the [place] (ADVAIR 00 morning Medical HFA) 230-21 and 2 Branch mcg/actuati Puffs in on inhaler the evening. ipratropium 2022-0 Yes [id number] 3mL Inhale 3 [facility] -albuteroL 1-10 mL 4 ity of 0.5 mg-3 00:00: (four) [place] mg(2.5 mg 00 times Medical base)/3 mL daily. Branch nebulizer solution EPINEPHrine 2022-0 Yes [id number] INJECT Univers 0.3 mg/0.3 1-10 0.3ML ity of mL 00:00: INTRAMUSCU [place] injection 00 LARLY Medica l NEEDED FOR Branch ANAPHYLAXI S fluticasone 2022-0 Yes [id number] 2{puff} Inhale 2 [facility] propion-lauren 1-10 Puffs in ity of meteroL 00:00: the [place] (ADVAIR 00 morning Medical HFA) 230-21 and 2 Branch mcg/actuati Puffs in on inhaler the evening. ipratropium 2022-0 Yes [id number] 3mL Inhale 3 Univers -albuteroL 1-10 mL 4 ity of 0.5 mg-3 00:00: (four) [place] mg(2.5 mg 00 times Medical base)/3 mL daily. Branch nebulizer solution EPINEPHrine Yes [id number] INJECT Univers 0.3 mg/0.3 1-10 0.3ML ity of mL 00:00: INTRAMUSCU [place] injection 00 LARLY Medica l NEEDED FOR Branch ANAPHYLAXI S fluticasone Yes [id number] 2{puff} Inhale 2 [facility] propion-lauren 1-10 Puffs in ity of meteroL 00:00: the [place] (ADVAIR 00 morning Medical HFA) 230-21 and 2 Branch mcg/actuati Puffs in on inhaler the evening. ipratropium Yes [id number] 3mL Inhale 3 Univers -albuteroL 1-10 mL 4 ity of 0.5 mg-3 00:00: (four) [place] mg(2.5 mg 00 times Medical base)/3 mL daily. Branch nebulizer solution EPINEPHrine Yes [id number] INJECT Univers 0.3 mg/0.3 1-10 0.3ML ity of mL 00:00: INTRAMUSCU [place] injection 00 LARLY Medica l NEEDED FOR Branch ANAPHYLAXI S fluticasone 0 Yes [id number] 2{puff} Inhale 2 [facility] propion-lauren 1-10 Puffs in ity of meteroL 00:00: the [place] (ADVAIR 00 morning Medical HFA) 230-21 and 2 Branch mcg/actuati Puffs in on inhaler the evening. ipratropium 0 Yes [id number] 3mL Inhale 3 Univers -albuteroL 1-10 mL 4 ity of 0.5 mg-3 00:00: (four) [place] mg(2.5 mg 00 times Medical base)/3 mL daily. Branch nebulizer solution EPINEPHrine Yes [id number] INJECT Univers 0.3 mg/0.3 1-10 0.3ML ity of mL 00:00: INTRAMUSCU [place] injection 00 LARLY Medica l NEEDED FOR Branch ANAPHYLAXI S fluticasone 2022-0 Yes [id number] 2{puff} Inhale 2 [facility] propion-lauren 1-10 Puffs in ity of meteroL 00:00: the [place] (ADVAIR 00 morning Medical HFA) 230-21 and 2 Branch mcg/actuati Puffs in on inhaler the evening. ipratropium 0 Yes [id number] 3mL Inhale 3 Univers -albuteroL 1-10 mL 4 ity of 0.5 mg-3 00:00: (four) [place] mg(2.5 mg 00 times Medical base)/3 mL daily. Branch nebulizer solution EPINEPHrine Yes [id number] INJECT Univers 0.3 mg/0.3 1-10 0.3ML ity of mL 00:00: INTRAMUSCU [place] injection 00 LARLY Medica l NEEDED FOR Branch ANAPHYLAXI S fluticasone 2022-0 Yes [id number] 2{puff} Inhale 2 [facility] propion-lauren 1-10 Puffs in ity of meteroL 00:00: the [place] (ADVAIR 00 morning Medical HFA) 230-21 and 2 Branch mcg/actuati Puffs in on inhaler the evening. ipratropium 2022-0 Yes [id number] 3mL Inhale 3 Univers -albuteroL 1-10 mL 4 ity of 0.5 mg-3 00:00: (four) [place] mg(2.5 mg 00 times Medical base)/3 mL daily. Branch nebulizer solution EPINEPHrine Yes [id number] INJECT Univers 0.3 mg/0.3 1-10 0.3ML ity of mL 00:00: INTRAMUSCU [place] injection 00 LARLY Medica l NEEDED FOR Branch ANAPHYLAXI S fluticasone 2022-0 Yes [id number] 2{puff} Inhale 2 [facility] propion-lauren 1-10 Puffs in ity of meteroL 00:00: the [place] (ADVAIR 00 morning Medical HFA) 230-21 and 2 Branch mcg/actuati Puffs in on inhaler the evening. ipratropium 2022-0 Yes [id number] 3mL Inhale 3 Univers -albuteroL 1-10 mL 4 ity of 0.5 mg-3 00:00: (four) [place] mg(2.5 mg 00 times Medical base)/3 mL daily. Branch nebulizer solution EPINEPHrine 2022-0 Yes [id number] INJECT Univers 0.3 mg/0.3 1-10 0.3ML ity of mL 00:00: INTRAMUSCU [place] injection 00 LARLY Medica l NEEDED FOR Branch ANAPHYLAXI S fluticasone Yes [id number] 2{puff} Inhale 2 [facility] propion-lauren 1-10 Puffs in ity of meteroL 00:00: the [place] (ADVAIR 00 morning Medical HFA) 230-21 and 2 Branch mcg/actuati Puffs in on inhaler the evening. ipratropium Yes [id number] 3mL Inhale 3 Univers -albuteroL 1-10 mL 4 ity of 0.5 mg-3 00:00: (four) [place] mg(2.5 mg 00 times Medical base)/3 mL daily. Branch nebulizer solution EPINEPHrine Yes [id number] INJECT Univers 0.3 mg/0.3 1-10 0.3ML ity of mL 00:00: INTRAMUSCU [place] injection 00 LARLY Medica l NEEDED FOR Branch ANAPHYLAXI S fluticasone Yes [id number] 2{puff} Inhale 2 [facility] propion-lauren 1-10 Puffs in ity of meteroL 00:00: the [place] (ADVAIR 00 morning Medical HFA) 230-21 and 2 Branch mcg/actuati Puffs in on inhaler the evening. ipratropium Yes [id number] 3mL Inhale 3 Univers -albuteroL 1-10 mL 4 ity of 0.5 mg-3 00:00: (four) [place] mg(2.5 mg 00 times Medical base)/3 mL daily. Branch nebulizer solution EPINEPHrine Yes [id number] INJECT Univers 0.3 mg/0.3 1-10 0.3ML ity of mL 00:00: INTRAMUSCU [place] injection 00 LARLY Medica l NEEDED FOR Branch ANAPHYLAXI S fluticasone 0 Yes [id number] 2{puff} Inhale 2 [facility] propion-lauren 1-10 Puffs in ity of meteroL 00:00: the [place] (ADVAIR 00 morning Medical HFA) 230-21 and 2 Branch mcg/actuati Puffs in on inhaler the evening. ipratropium 0 Yes [id number] 3mL Inhale 3 Univers -albuteroL 1-10 mL 4 ity of 0.5 mg-3 00:00: (four) [place] mg(2.5 mg 00 times Medical base)/3 mL daily. Branch nebulizer solution EPINEPHrine Yes [id number] INJECT Univers 0.3 mg/0.3 1-10 0.3ML ity of mL 00:00: INTRAMUSCU [place] injection 00 LARLY Medica l NEEDED FOR Branch ANAPHYLAXI S fluticasone Yes [id number] 2{puff} Inhale 2 [facility] propion-lauren 1-10 Puffs in ity of meteroL 00:00: the [place] (ADVAIR 00 morning Medical HFA) 230-21 and 2 Branch mcg/actuati Puffs in on inhaler the evening. ipratropium Yes [id number] 3mL Inhale 3 Univers -albuteroL 1-10 mL 4 ity of 0.5 mg-3 00:00: (four) [place] mg(2.5 mg 00 times Medical base)/3 mL daily. Branch nebulizer solution EPINEPHrine Yes [id number] INJECT Univers 0.3 mg/0.3 1-10 0.3ML ity of mL 00:00: INTRAMUSCU [place] injection 00 LARLY Medica l NEEDED FOR Branch ANAPHYLAXI S fluticasone Yes [id number] 2{puff} Inhale 2 [facility] propion-lauren 1-10 Puffs in ity of meteroL 00:00: the [place] (ADVAIR 00 morning Medical HFA) 230-21 and 2 Branch mcg/actuati Puffs in on inhaler the evening. ipratropium Yes [id number] 3mL Inhale 3 Univers -albuteroL 1-10 mL 4 ity of 0.5 mg-3 00:00: (four) [place] mg(2.5 mg 00 times Medical base)/3 mL daily. Branch nebulizer solution EPINEPHrine Yes [id number] INJECT Univers 0.3 mg/0.3 1-10 0.3ML ity of mL 00:00: INTRAMUSCU [place] injection 00 LARLY Medica l NEEDED FOR Branch ANAPHYLAXI S cetirizine 2022- No [id number] 10mg Take 1 Univers 10 mg 1-10 02-15 tablet by ity of tablet 00:00: 00:00 mouth in [place] 00 :00 the Medical morning Branch and 1 tablet in the evening. azelastine 3-0 3- No [id number] 1{spray Use 1 Univers 137 mcg 11-23 } [place] in ity of (0.1 %) 00:00: 00:00 each [place] nasal spray 00 :00 nostril in [facility] the Branch morning and 1 [place] in the evening. Use in each nostril as directed metoclopram 2023-0 Yes TAKE 1 Univ ers sera HCl 5 1-08 TABLET 3 ity of mg tablet 00:00: TIMES A 00 DAY BY Medical ORAL Branch ROUTE. metoclopram 2023-0 Yes TAKE 1 Univ ers sera HCl 5 1-08 TABLET 3 ity of mg tablet 00:00: TIMES A [place] DAY BY Medical ORAL Branch ROUTE. metoclopram 2023-0 Yes TAKE 1 Univ ers sera HCl 5 1-08 TABLET 3 ity of mg tablet 00:00: TIMES A [place] 00 DAY BY Medical ORAL Branch ROUTE. metoclopram 2023-0 Yes TAKE 1 Univ ers sera HCl 5 1-08 TABLET 3 ity of mg tablet 00:00: TIMES A [place] 00 DAY BY Medical ORAL Branch ROUTE. metoclopram 2023-0 Yes TAKE 1 Univ ers sera HCl 5 1-08 TABLET 3 ity of mg tablet 00:00: TIMES A [place] 00 DAY BY Medical ORAL Branch ROUTE. metoclopram 2023-0 Yes TAKE 1 Univ ers sera HCl 5 1-08 TABLET 3 ity of mg tablet 00:00: TIMES A 00 DAY BY Medical ORAL Branch ROUTE. metoclopram 2023-0 Yes TAKE 1 Univ ers sera HCl 5 1-08 TABLET 3 ity of mg tablet 00:00: TIMES A [place] 00 DAY BY Medical ORAL Branch ROUTE. metoclopram 2023-0 Yes TAKE 1 Univ ers sera HCl 5 1-08 TABLET 3 ity of mg tablet 00:00: TIMES A [place] 00 DAY BY Medical ORAL Branch ROUTE. metoclopram 2023-0 Yes TAKE 1 Univ ers sera HCl 5 1-08 TABLET 3 ity of mg tablet 00:00: TIMES A [place] 00 DAY BY Medical ORAL Branch ROUTE. gadoteridol 3-0 3- No [id number] .2mL/kg 24.22 mL Univers (PROHANCE-2 -02 12- [id number] (0.2 mL/kg ity of 0 mL) 21:15: 21:05 ?121.1 [place] injection 00 :00 kg), Medical 24.22 mL Intravenou Branc h s, ONCE, 1 dose, On Tue11/17/22 at 1515, Routine levalbutero 2021-11 Yes [id number] 1{puff} Inhale 1-2 Univers l 45 2-30 Puffs ity of mcg/actuati 00:00: every 4 [place] as on inhaler 00 (four) Medical hours as Branch needed for Wheezing. levalbutero 2021-11 Yes [id number] 1{puff} Inhale 1-2 [facility] l 45 2-30 Puffs ity of mcg/actuati 00:00: every 4 [place] as on inhaler 00 (four) Medical hours as Branch needed for Wheezing. levalbutero 2021-11 Yes [id number] 1{puff} Inhale 1-2 [facility] l 45 2-30 Puffs ity of mcg/actuati 00:00: every 4 [place] as on inhaler 00 (four) Medical hours as Branch needed for Wheezing. levalbutero 2021-11 Yes [id number] 1{puff} Inhale 1-2 [facility] l 45 2-30 Puffs ity of mcg/actuati 00:00: every 4 [place] on inhaler 00 (four) Medical hours as Branch needed for Wheezing. levalbutero 2021-11 Yes [id number] 1{puff} Inhale 1-2 [facility] l 45 2-30 Puffs ity of mcg/actuati 00:00: every 4 [place] on inhaler 00 (four) Medical hours as Branch needed for Wheezing. levalbutero 2021-11 Yes [id number] 1{puff} Inhale 1-2 [facility] l 45 2-30 Puffs ity of mcg/actuati 00:00: every 4 [place] as on inhaler 00 (four) Medical hours as Branch needed for Wheezing. levalbutero 2021-11 Yes [id number] 1{puff} Inhale 1-2 [facility] l 45 2-30 Puffs ity of mcg/actuati 00:00: every 4 [place] as on inhaler 00 (four) Medical hours as Branch needed for Wheezing. levalbutero 2021-11 Yes [id number] 1{puff} Inhale 1-2 [facility] l 45 2-30 Puffs ity of mcg/actuati 00:00: every 4 [place] as on inhaler 00 (four) Medical hours as Branch needed for Wheezing. levalbutero 2021-11 Yes [id number] 1{puff} Inhale 1-2 [facility] l 45 2-30 Puffs ity of mcg/actuati 00:00: every 4 [place] on inhaler 00 (four) Medical hours as Branch needed for Wheezing. levalbutero 2021-11 Yes [id number] 1{puff} Inhale 1-2 Univers l 45 2-30 Puffs ity of mcg/actuati 00:00: every 4 [place] on inhaler 00 (four) Medical hours as Branch needed for Wheezing. levalbutero 2021-11 Yes [id number] 1{puff} Inhale 1-2 Univers l 45 2-30 Puffs ity of mcg/actuati 00:00: every 4 [place] on inhaler 00 (four) Medical hours as Branch needed for Wheezing. levalbutero 2021-11 Yes [id number] 1{puff} Inhale 1-2 Univers l 45 2-30 Puffs ity of mcg/actuati 00:00: every 4 [place] on inhaler 00 (four) Medical hours as Branch needed for Wheezing. levalbutero 2021-11 Yes [id number] 1{puff} Inhale 1-2 [facility] l 45 2-30 Puffs ity of mcg/actuati 00:00: every 4 [place] on inhaler 00 (four) Medical hours as Branch needed for Wheezing. levalbutero 2021-11 Yes [id number] 1{puff} Inhale 1-2 [facility] l 45 2-30 Puffs ity of mcg/actuati 00:00: every 4 [place] on inhaler 00 (four) Medical hours as Branch needed for Wheezing. levalbutero 2021-11 Yes [id number] 1{puff} Inhale 1-2 [facility] l 45 2-30 Puffs ity of mcg/actuati 00:00: every 4 [place] on inhaler 00 (four) Medical hours as Branch needed for Wheezing. levalbutero 2021-11 Yes [id number] 1{puff} Inhale 1-2 [facility] l 45 2-30 Puffs ity of mcg/actuati 00:00: every 4 [place] on inhaler 00 (four) Medical hours as Branch needed for Wheezing. levalbutero 2021-11 Yes [id number] 1{puff} Inhale 1-2 Univers l 45 2-30 Puffs ity of mcg/actuati 00:00: every 4 [place] on inhaler 00 (four) Medical hours as Branch needed for Wheezing. levalbutero 2021-11 Yes [id number] 1{puff} Inhale 1-2 Univers l 45 2-30 Puffs ity of mcg/actuati 00:00: every 4 [place] on inhaler 00 (four) Medical hours as Branch needed for Wheezing. levalbutero 2021-11 Yes [id number] 1{puff} Inhale 1-2 Univers l 45 2-30 Puffs ity of mcg/actuati 00:00: every 4 [place] on inhaler 00 (four) Medical hours as Branch needed for Wheezing. levalbutero 2021-11 Yes [id number] 1{puff} Inhale 1-2 Univers l 45 2-30 Puffs ity of mcg/actuati 00:00: every 4 [place] on inhaler 00 (four) Medical hours as Branch needed for Wheezing. levalbutero 2021-11 Yes [id number] 1{puff} Inhale 1-2 [facility] l 45 2-30 Puffs ity of mcg/actuati 00:00: every 4 [place] on inhaler 00 (four) Medical hours as Branch needed for Wheezing. levalbutero 2021-11 Yes [id number] 1{puff} Inhale 1-2 Univers l 45 2-30 Puffs ity of mcg/actuati 00:00: every 4 [place] on inhaler 00 (four) Medical hours as Branch needed for Wheezing. levalbutero 2021-11 Yes [id number] 1{puff} Inhale 1-2 Univers l 45 2-30 Puffs ity of mcg/actuati 00:00: every 4 [place] on inhaler 00 (four) Medical hours as Branch needed for Wheezing. levalbutero 2021-11 Yes [id number] 1{puff} Inhale 1-2 [facility] l 45 2-30 Puffs ity of mcg/actuati 00:00: every 4 [place] on inhaler 00 (four) Medical hours as Branch needed for Wheezing. levalbutero 2021-11 Yes [id number] 1{puff} Inhale 1-2 Univers l 45 2-30 Puffs ity of mcg/actuati 00:00: every 4 [place] on inhaler 00 (four) Medical hours as Branch needed for Wheezing. levalbutero 2021-113- No [id number] 1{puff} Inhale 1-2 [facility] l 45 2-30 01-30 Puffs ity of mcg/actuati 00:00: 00:00 every 4 [place] on inhaler 00 :00 (four) Medical hours as Branch needed for Wheezing. benzonatate 2021-11 Yes [id number] 200mg Take 1 Univers 200 mg 2-28 capsule by ity of capsule 00:00: mouth 3 (three) Medical times Branch daily as needed for Cough. benzonatate 2021-11 Yes [id number] 200mg Take 1 [facility] 200 mg 2-28 capsule by ity of capsule 00:00: mouth (three) Medical times Branch daily as needed for Cough. benzonatate 2021-11 Yes [id number] 200mg Take 1 [facility] 200 mg 2-28 capsule by ity of capsule 00:00: mouth 3 (three) Medical times Branch daily as needed for Cough. benzonatate 2021-11 Yes [id number] 200mg Take 1 [facility] 200 mg 2-28 capsule by ity of capsule 00:00: mouth (three) Medical times Branch daily as needed for Cough. benzonatate 2021-11 Yes [id number] 200mg Take 1 [facility] 200 mg 2-28 capsule by ity of capsule 00:00: mouth 3 (three) Medical times Branch daily as needed for Cough. benzonatate 2021-11 Yes [id number] 200mg Take 1 [facility] 200 mg 2-28 capsule by ity of capsule 00:00: mouth 3 (three) Medical times Branch daily as needed for Cough. benzonatate 2021-11 Yes [id number] 200mg Take 1 [facility] 200 mg 2-28 capsule by ity of capsule 00:00: mouth 3 (three) Medical times Branch daily as needed for Cough. benzonatate 2021-11 Yes [id number] 200mg Take 1 [facility] 200 mg 2-28 capsule by ity of capsule 00:00: mouth (three) Medical times Branch daily as needed for Cough. benzonatate 2021-11 Yes [id number] 200mg Take 1 [facility] 200 mg 2-28 capsule by ity of capsule 00:00: mouth (three) Medical times Branch daily as needed for Cough. benzonatate 2021-11 Yes [id number] 200mg Take 1 [facility] 200 mg 2-28 capsule by ity of capsule 00:00: mouth (three) Medical times Branch daily as needed for Cough. benzonatate 2021-11 Yes [id number] 200mg Take 1 [facility] 200 mg 2-28 capsule by ity of capsule 00:00: mouth (three) Medical times Branch daily as needed for Cough. benzonatate 2021-11 Yes [id number] 200mg Take 1 [facility] 200 mg 2-28 capsule by ity of capsule 00:00: mouth (three) Medical times Branch daily as needed for Cough. benzonatate 2021-11 Yes [id number] 200mg Take 1 [facility] 200 mg 2-28 capsule by [facility] capsule 00:00: mouth (three) Medical times [facility] daily as needed for Cough. benzonatate 2021-11 Yes [id number] 200mg Take 1 [facility] 200 mg 2-28 capsule by [facility] capsule 00:00: mouth (three) Medical times [facility] daily as needed for Cough. benzonatate 2021-11 Yes [id number] 200mg Take 1 [facility] 200 mg 2-28 capsule by [facility] capsule 00:00: mouth (three) Medical times [facility] daily as needed for Cough. benzonatate 2021-11 Yes [id number] 200mg Take 1 [facility] 200 mg 2-28 capsule by [facility] capsule 00:00: mouth (three) Medical times [facility] daily as needed for Cough. benzonatate 2021-11 Yes [id number] 200mg Take 1 [facility] 200 mg 2-28 capsule by [facility] of capsule 00:00: mouth (three) Medical times Branch daily as needed for Cough. benzonatate 2021-11 Yes [id number] 200mg Take 1 [facility] 200 mg 2-28 capsule by ity of capsule 00:00: mouth (three) Medical times Branch daily as needed for Cough. benzonatate 2021-11 Yes [id number] 200mg Take 1 [facility] 200 mg 2-28 capsule by ity of capsule 00:00: mouth (three) Medical times Branch daily as needed for Cough. benzonatate 2021-11 Yes [id number] 200mg Take 1 [facility] 200 mg 2-28 capsule by ity of capsule 00:00: mouth (three) Medical times Branch daily as needed for Cough. benzonatate 2021-11 Yes [id number] 200mg Take 1 [facility] 200 mg 2-28 capsule by ity of capsule 00:00: mouth (three) Medical times Branch daily as needed for Cough. benzonatate 2021-11 Yes [id number] 200mg Take 1 [facility] 200 mg 2-28 capsule by ity of capsule 00:00: mouth (three) Medical times Branch daily as needed for Cough. benzonatate 2021-11 Yes [id number] 200mg Take 1 [facility] 200 mg 2-28 capsule by ity of capsule 00:00: mouth (three) Medical times Branch daily as needed for Cough. benzonatate 2021-11 Yes [id number] 200mg Take 1 [facility] 200 mg 2-28 capsule by ity of capsule 00:00: mouth () Medical times Branch daily as needed for Cough. benzonatate 2021-11 Yes [id number] 200mg Take 1 [facility] 200 mg 2-28 capsule by ity of capsule 00:00: mouth (three) Medical times Branch daily as needed for Cough. benzonatate 2021-11 Yes [id number] 200mg Take 1 [facility] 200 mg 2-28 capsule by ity of capsule 00:00: mouth (three) Medical times Branch daily as needed for Cough. benzonatate 2021-11 Yes [id number] 200mg Take 1 [facility] 200 mg 2-28 capsule by ity of capsule 00:00: mouth (three) Medical times Branch daily as needed for Cough. benzonatate 2021-11 Yes [id number] 200mg Take 1 [facility] 200 mg 2-28 capsule by ity of capsule 00:00: mouth (three) Medical times Branch daily as needed for Cough. benzonatate 2021-11 Yes [id number] 200mg Take 1 [facility] 200 mg 2-28 capsule by ity of capsule 00:00: mouth (three) Medical times Branch daily as needed for Cough. benzonatate 2021-11 Yes [id number] 200mg Take 1 [facility] 200 mg 2-28 capsule by ity of capsule 00:00: mouth (three) Medical times Branch daily as needed for Cough. benzonatate 2021-11 Yes [id number] 200mg Take 1 [facility] 200 mg 2-28 capsule by ity of capsule 00:00: mouth (three) Medical times Branch daily as needed for Cough. benzonatate 2021-11 Yes [id number] 200mg Take 1 [facility] 200 mg 2-28 capsule by ity of capsule 00:00: mouth (three) Medical times Branch daily as needed for Cough. benzonatate 2021-11 Yes [id number] 200mg Take 1 [facility] 200 mg 2-28 capsule by ity of capsule 00:00: mouth (three) Medical times Branch daily as needed for Cough. benzonatate 2021-11 Yes [id number] 200mg Take 1 [facility] 200 mg 2-28 capsule by ity of capsule 00:00: mouth (three) Medical times Branch daily as needed for Cough. benzonatate 2021-11 Yes [id number] 200mg Take 1 [facility] 200 mg 2-28 capsule by ity of capsule 00:00: mouth (three) Medical times Branch daily as needed for Cough. benzonatate 2021-11 Yes [id number] 200mg Take 1 [facility] 200 mg 2-28 capsule by ity of capsule 00:00: mouth (three) Medical times Branch daily as needed for Cough. benzonatate 2021-11 Yes [id number] 200mg Take 1 [facility] 200 mg 2-28 capsule by ity of capsule 00:00: mouth (three) Medical times Branch daily as needed for Cough. benzonatate 2021-11 Yes [id number] 200mg Take 1 [facility] 200 mg 2-28 capsule by ity of capsule 00:00: mouth (three) Medical times Branch daily as needed for Cough. benzonatate 2021-11 Yes [id number] 200mg Take 1 [facility] 200 mg 2-28 capsule by ity of capsule 00:00: mouth 3 [place] 00 (three) Medical times Branch daily as needed for Cough. benzonatate 2021-11 Yes [id number] 200mg Take 1 [facility] 200 mg 2-28 capsule by ity of capsule 00:00: mouth 3 [place] 00 (three) Medical times Branch daily as needed for Cough. benzonatate 2021-11 Yes [id number] 200mg Take 1 [facility] 200 mg 2-28 capsule by ity of capsule 00:00: mouth 3 [place] 00 (three) Medical times Branch daily as needed for Cough. benzonatate 2021-11 Yes [id number] 200mg Take 1 [facility] 200 mg 2-28 capsule by ity of capsule 00:00: mouth 3 [place] 00 (three) Medical times Branch daily as needed for Cough. benzonatate 2021-11 Yes [id number] 200mg Take 1 [facility] 200 mg 2-28 capsule by ity of capsule 00:00: mouth 3 [place] 00 (three) Medical times Branch daily as needed for Cough. benzonatate 2021-11- No [id number] 200mg Take 1 [facility] 200 mg 2-28 02-17 capsule by ity of capsule 00:00: 00:00 mouth 3 [place] 00 :00 (three) Medical times Branch daily as needed for Cough. benzonatate 2021-11- No [id number] 200mg Take 1 [facility] 200 mg 2-28 02-17 capsule by ity of capsule 00:00: 00:00 mouth 3 [place] 00 :00 (three) Medical times Branch daily as needed for Cough. insulin 2021-11 Yes Inject [facility] lispro 2-20 into the [place] (HUMALOG) 14:22: skin. of 100 UNIT/ML 20 Medicin injection e MAGNESIUM 2021-11 Yes Take by [place] CITRATE OR 2-20 mouth as Colle ge 14:20: needed. of 02 Medicin e sumatriptan 2021-11 Yes 50mg Take 50 mg Jose Rafael (IMITREX) 2-20 by mouth [facility] 50 MG 14:20: once as of tablet 02 needed for Medicin Migraine. e Mth-Me 2021-11 Yes Take by [facility] Blue-Sod 2-19 mouth. ity of Phos-PhSal- 10:00: [place] Hyo 03 Medical (URIBEL) Branch 118-10-40.8 -36 mg capsule insulin 2021-11 Yes inject [facility] lispro 2-19 under the ity of (HUMALOG 10:00: skin. [place] KWIKPEN 03 Medical INSULIN SC) Branch [facility] 2021-11 Yes Take by [facility] Blue-Sod 2-19 mouth. ity of Phos-PhSal- 10:00: [place] Hyo 03 Medical (URIBEL) Branch 118-10-40.8 -36 mg capsule insulin 2021-11 Yes inject [facility] lispro 2-19 under the ity of (HUMALOG 10:00: skin. [place] KWIKPEN 03 Medical INSULIN SC) Branch [facility] 2021-11 Yes Take by [facility] Blue-Sod 2-19 mouth. ity of Phos-PhSal- 10:00: [place] Hyo 03 Medical (URIBEL) Branch 118-10-40.8 -36 mg capsule insulin 2021-11 Yes inject [facility] lispro 2-19 under the ity of (HUMALOG 10:00: skin. [place] KWIKPEN 03 Medical INSULIN SC) Branch [facility] 2021-11 Yes Take by [facility] Blue-Sod 2-19 mouth. ity of Phos-PhSal- 10:00: [place] Hyo 03 Medical (URIBEL) Branch 118-10-40.8 -36 mg capsule insulin 2021-11 Yes inject [facility] lispro 2-19 under the ity of (HUMALOG 10:00: skin. [place] KWIKPEN 03 Medical INSULIN SC) Branch [facility] 2021-11 Yes Take by [facility] Blue-Sod 2-19 mouth. ity of Phos-PhSal- 10:00: [place] Hyo 03 Medical (URIBEL) Branch 118-10-40.8 -36 mg capsule insulin 2021-11 Yes inject [facility] lispro 2-19 under the ity of (HUMALOG 10:00: skin. [place] KWIKPEN 03 Medical INSULIN SC) Branch [facility] 2021-11 Yes Take by [facility] Blue-Sod 2-19 mouth. ity of Phos-PhSal- 10:00: [place] Hyo 03 Medical (URIBEL) Branch 118-10-40.8 -36 mg capsule insulin 2021-11 Yes inject [facility] lispro 2-19 under the ity of (HUMALOG 10:00: skin. [place] KWIKPEN 03 Medical INSULIN SC) Branch [facility] 2021-11 Yes Take by [facility] Blue-Sod 2-19 mouth. ity of Phos-PhSal- 10:00: [place] Hyo 03 Medical (URIBEL) Branch 118-10-40.8 -36 mg capsule insulin 2021-11 Yes inject [facility] lispro 2-19 under the ity of (HUMALOG 10:00: skin. [place] KWIKPEN 03 Medical INSULIN SC) Branch [facility] 2021-11 Yes Take by [facility] Blue-Sod 2-19 mouth. ity of Phos-PhSal- 10:00: [place] Hyo 03 Medical (URIBEL) Branch 118-10-40.8 -36 mg capsule insulin 2021-11 Yes inject [facility] lispro 2-19 under the ity of (HUMALOG 10:00: skin. [place] KWIKPEN 03 Medical INSULIN SC) Branch [facility] 2021-11 Yes Take by [facility] Blue-Sod 2-19 mouth. ity of Phos-PhSal- 10:00: [place] Hyo 03 Medical (URIBEL) Branch 118-10-40.8 -36 mg capsule insulin 2021-11 Yes inject [facility] lispro 2-19 under the ity of (HUMALOG 10:00: skin. [place] KWIKPEN 03 Medical INSULIN SC) Branch [facility] 2021-11 Yes Take by [facility] Blue-Sod 2-19 mouth. ity of Phos-PhSal- 10:00: [place] Hyo 03 Medical (URIBEL) Branch 118-10-40.8 -36 mg capsule insulin 2021-11 Yes inject [facility] lispro 2-19 under the ity of (HUMALOG 10:00: skin. [place] KWIKPEN 03 Medical INSULIN SC) Branch [facility] 2021-11 Yes Take by [facility] Blue-Sod 2-19 mouth. ity of Phos-PhSal- 10:00: [place] Hyo 03 Medical (URIBEL) Branch 118-10-40.8 -36 mg capsule insulin 2021-11 Yes inject [facility] lispro 2-19 under the ity of (HUMALOG 10:00: skin. [place] KWIKPEN 03 Medical INSULIN SC) Branch [facility] 2021-11 Yes Take by [facility] Blue-Sod 2-19 mouth. ity of Phos-PhSal- 10:00: [place] Hyo 03 Medical (URIBEL) Branch 118-10-40.8 -36 mg capsule insulin 2021-11 Yes inject [facility] lispro 2-19 under the ity of (HUMALOG 10:00: skin. [place] KWIKPEN 03 Medical INSULIN SC) Branch [facility] 2021-11 Yes Take by [facility] Blue-Sod 2-19 mouth. ity of Phos-PhSal- 10:00: [place] Hyo 03 Medical (URIBEL) Branch 118-10-40.8 -36 mg capsule insulin 2021-11 Yes inject [facility] lispro 2-19 under the ity of (HUMALOG 10:00: skin. [place] KWIKPEN 03 Medical INSULIN SC) Branch [facility] 2021-11 Yes Take by [facility] Blue-Sod 2-19 mouth. ity of Phos-PhSal- 10:00: [place] Hyo 03 Medical (URIBEL) Branch 118-10-40.8 -36 mg capsule insulin 2021-11 Yes inject [facility] lispro 2-19 under the ity of (HUMALOG 10:00: skin. [place] KWIKPEN 03 Medical INSULIN SC) Branch [facility] 2021-11 Yes Take by [facility] Blue-Sod 2-19 mouth. ity of Phos-PhSal- 10:00: [place] Hyo 03 Medical (URIBEL) Branch 118-10-40.8 -36 mg capsule insulin 2021-11 Yes inject [facility] lispro 2-19 under the ity of (HUMALOG 10:00: skin. [place] KWIKPEN 03 Medical INSULIN SC) Branch [facility] 2021-11 Yes Take by [facility] Blue-Sod 2-19 mouth. ity of Phos-PhSal- 10:00: [place] Hyo 03 Medical (URIBEL) Branch 118-10-40.8 -36 mg capsule insulin 2021-11 Yes inject [facility] lispro 2-19 under the ity of (HUMALOG 10:00: skin. [place] KWIKPEN 03 Medical INSULIN SC) Branch [facility] 2021-11 Yes Take by [facility] Blue-Sod 2-19 mouth. ity of Phos-PhSal- 10:00: [place] Hyo 03 Medical (URIBEL) Branch 118-10-40.8 -36 mg capsule insulin 2021-11 Yes inject [facility] lispro 2-19 under the ity of (HUMALOG 10:00: skin. [place] KWIKPEN 03 Medical INSULIN SC) Branch [facility] 2021-11 Yes Take by [facility] Blue-Sod 2-19 mouth. ity of Phos-PhSal- 10:00: [place] Hyo 03 Medical (URIBEL) Branch 118-10-40.8 -36 mg capsule insulin 2021-11 Yes inject [facility] lispro 2-19 under the ity of (HUMALOG 10:00: skin. [place] KWIKPEN 03 Medical INSULIN SC) Branch [facility] 2021-11 Yes Take by [facility] Blue-Sod 2-19 mouth. ity of Phos-PhSal- 10:00: [place] Hyo 03 Medical (URIBEL) Branch 118-10-40.8 -36 mg capsule insulin 2021-11 Yes inject [facility] lispro 2-19 under the ity of (HUMALOG 10:00: skin. [place] KWIKPEN 03 Medical INSULIN SC) Branch [facility] 2021-11 Yes Take by [facility] Blue-Sod 2-19 mouth. ity of Phos-PhSal- 10:00: [place] Hyo 03 Medical (URIBEL) Branch 118-10-40.8 -36 mg capsule insulin 2021-11 Yes inject [facility] lispro 2-19 under the ity of (HUMALOG 10:00: skin. [place] KWIKPEN 03 Medical INSULIN SC) Branch [facility] 2021-11 Yes Take by [facility] Blue-Sod 2-19 mouth. ity of Phos-PhSal- 10:00: [place] Hyo 03 Medical (URIBEL) Branch 118-10-40.8 -36 mg capsule insulin 2021-11 Yes inject [facility] lispro 2-19 under the ity of (HUMALOG 10:00: skin. [place] KWIKPEN 03 Medical INSULIN SC) Branch [facility] 2021-11 Yes Take by [facility] Blue-Sod 2-19 mouth. ity of Phos-PhSal- 10:00: [place] Hyo 03 Medical (URIBEL) Branch 118-10-40.8 -36 mg capsule insulin 2021-11 Yes inject [facility] lispro 2-19 under the ity of (HUMALOG 10:00: skin. [place] KWIKPEN 03 Medical INSULIN SC) Branch [facility] 2021-11 Yes Take by [facility] Blue-Sod 2-19 mouth. ity of Phos-PhSal- 10:00: [place] Hyo 03 Medical (URIBEL) Branch 118-10-40.8 -36 mg capsule insulin 2021-11 Yes inject [facility] lispro 2-19 under the ity of (HUMALOG 10:00: skin. [place] KWIKPEN 03 Medical INSULIN SC) Branch [facility] 2021-11 Yes Take by [facility] Blue-Sod 2-19 mouth. ity of Phos-PhSal- 10:00: [place] Hyo 03 Medical (URIBEL) Branch 118-10-40.8 -36 mg capsule insulin 2021-11 Yes inject [facility] lispro 2-19 under the ity of (HUMALOG 10:00: skin. [place] KWIKPEN 03 Medical INSULIN SC) Branch [facility] 2021-11 Yes Take by [facility] Blue-Sod 2-19 mouth. ity of Phos-PhSal- 10:00: [place] Hyo 03 Medical (URIBEL) Branch 118-10-40.8 -36 mg capsule insulin 2021-11 Yes inject [facility] lispro 2-19 under the ity of (HUMALOG 10:00: skin. [place] KWIKPEN 03 Medical INSULIN SC) Branch [facility] 2021-11 Yes Take by [facility] Blue-Sod 2-19 mouth. ity of Phos-PhSal- 10:00: [place] Hyo 03 Medical (URIBEL) Branch 118-10-40.8 -36 mg capsule insulin 2021-11 Yes inject [facility] lispro 2-19 under the ity of (HUMALOG 10:00: skin. [place] KWIKPEN 03 Medical INSULIN SC) Branch [facility] 2021-11 Yes Take by [facility] Blue-Sod 2-19 mouth. ity of Phos-PhSal- 10:00: [place] Hyo 03 Medical (URIBEL) Branch 118-10-40.8 -36 mg capsule insulin 2021-11 Yes inject [facility] lispro 2-19 under the ity of (HUMALOG 10:00: skin. [place] KWIKPEN 03 Medical INSULIN SC) Branch [facility] 2021-11 Yes Take by [facility] Blue-Sod 2-19 mouth. ity of Phos-PhSal- 10:00: [place] Hyo 03 Medical (URIBEL) Branch 118-10-40.8 -36 mg capsule insulin 2021-11 Yes inject [facility] lispro 2-19 under the ity of (HUMALOG 10:00: skin. [place] KWIKPEN 03 Medical INSULIN SC) Branch [facility] 2021-11 Yes Take by [facility] Blue-Sod 2-19 mouth. ity of Phos-PhSal- 10:00: [place] Hyo 03 Medical (URIBEL) Branch 118-10-40.8 -36 mg capsule insulin 2021-11 Yes inject [facility] lispro 2-19 under the ity of (HUMALOG 10:00: skin. [place] KWIKPEN 03 Medical INSULIN SC) Branch [facility] 2021-11 Yes Take by [facility] Blue-Sod 2-19 mouth. ity of Phos-PhSal- 10:00: [place] Hyo 03 Medical (URIBEL) Branch 118-10-40.8 -36 mg capsule insulin 2021-11 Yes inject [facility] lispro 2-19 under the ity of (HUMALOG 10:00: skin. [place] KWIKPEN 03 Medical INSULIN SC) Branch [facility] 2021-11 Yes Take by Univers Blue-Sod 2-19 mouth. ity of Phos-PhSal- 10:00: [place] Hyo 03 Medical (URIBEL) Branch 118-10-40.8 -36 mg capsule insulin 2021-11 Yes inject [facility] lispro 2-19 under the ity of (HUMALOG 10:00: skin. [place] KWIKPEN 03 Medical INSULIN SC) Branch [facility] 2021-11 Yes Take by [facility] Blue-Sod 2-19 mouth. ity of Phos-PhSal- 10:00: [place] Hyo 03 Medical (URIBEL) Branch 118-10-40.8 -36 mg capsule insulin 2021-11 Yes inject [facility] lispro 2-19 under the ity of (HUMALOG 10:00: skin. [place] KWIKPEN 03 Medical INSULIN SC) Branch [facility] 2021-11 Yes Take by [facility] Blue-Sod 2-19 mouth. ity of Phos-PhSal- 10:00: [place] Hyo 03 Medical (URIBEL) Branch 118-10-40.8 -36 mg capsule insulin 2021-11 Yes inject [facility] lispro 2-19 under the ity of (HUMALOG 10:00: skin. [place] KWIKPEN 03 Medical INSULIN SC) Branch [facility] 2021-11 Yes Take by [facility] Blue-Sod 2-19 mouth. ity of Phos-PhSal- 10:00: [place] Hyo 03 Medical (URIBEL) Branch 118-10-40.8 -36 mg capsule insulin 2021-11 Yes inject [facility] lispro 2-19 under the ity of (HUMALOG 10:00: skin. [place] KWIKPEN 03 Medical INSULIN SC) Branch [facility] 2021-11 Yes Take by [facility] Blue-Sod 2-19 mouth. ity of Phos-PhSal- 10:00: [place] Hyo 03 Medical (URIBEL) Branch 118-10-40.8 -36 mg capsule insulin 2021-11 Yes inject [facility] lispro 2-19 under the ity of (HUMALOG 10:00: skin. [place] KWIKPEN 03 Medical INSULIN SC) Branch [facility] 2021-11 Yes Take by [facility] Blue-Sod 2-19 mouth. ity of Phos-PhSal- 10:00: [place] Hyo 03 Medical (URIBEL) Branch 118-10-40.8 -36 mg capsule insulin 2021-11 Yes inject [facility] lispro 2-19 under the ity of (HUMALOG 10:00: skin. [place] KWIKPEN 03 Medical INSULIN SC) Branch [facility] 2021-11 Yes Take by [facility] Blue-Sod 2-19 mouth. ity of Phos-PhSal- 10:00: [place] Hyo 03 Medical (URIBEL) Branch 118-10-40.8 -36 mg capsule insulin 2021-11 Yes inject [facility] lispro 2-19 under the ity of (HUMALOG 10:00: skin. [place] KWIKPEN 03 Medical INSULIN SC) Branch [facility] 2021-11 Yes Take by [facility] Blue-Sod 2-19 mouth. ity of Phos-PhSal- 10:00: [place] Hyo 03 Medical (URIBEL) Branch 118-10-40.8 -36 mg capsule insulin 2021-11 Yes inject [facility] lispro 2-19 under the ity of (HUMALOG 10:00: skin. [place] KWIKPEN 03 Medical INSULIN SC) Branch [facility] 2021-11 Yes Take by [facility] Blue-Sod 2-19 mouth. ity of Phos-PhSal- 10:00: [place] Hyo 03 Medical (URIBEL) Branch 118-10-40.8 -36 mg capsule insulin 2021-11 Yes inject [facility] lispro 2-19 under the ity of (HUMALOG 10:00: skin. [place] KWIKPEN 03 Medical INSULIN SC) Branch [facility] 2021-11 Yes Take by [facility] Blue-Sod 2-19 mouth. ity of Phos-PhSal- 10:00: [place] Hyo 03 Medical (URIBEL) Branch 118-10-40.8 -36 mg capsule insulin 2021-11 Yes inject [facility] lispro 2-19 under the ity of (HUMALOG 10:00: skin. [place] KWIKPEN 03 Medical INSULIN SC) Branch [facility] 2021-11 Yes Take by [facility] Blue-Sod 2-19 mouth. ity of Phos-PhSal- 10:00: [place] Hyo 03 Medical (URIBEL) Branch 118-10-40.8 -36 mg capsule insulin 2021-11 Yes inject [facility] lispro 2-19 under the ity of (HUMALOG 10:00: skin. [place] KWIKPEN 03 Medical INSULIN SC) Branch [facility] 2021-11 Yes Take by [facility] Blue-Sod 2-19 mouth. ity of Phos-PhSal- 10:00: [place] Hy[facility] 03 Medical (URIBEL) Branch 118-10-40.8 -36 mg capsule insulin 2021-11 Yes inject [facility] lispro 2-19 under the ity of (HUMALOG 10:00: skin. [place] KWIKPEN 03 Medical INSULIN SC) Branch [facility] 2021-11 Yes Take by [facility] Blue-Sod 2-19 mouth. ity of Phos-PhSal- 10:00: [place] Hyo 03 Medical (URIBEL) Branch 118-10-40.8 -36 mg capsule insulin 2021-11 Yes inject [facility] lispro 2-19 under the ity of (HUMALOG 10:00: skin. [place] KWIKPEN 03 Medical INSULIN SC) Branch [facility] 2021-11 Yes Take by [facility] Blue-Sod 2-19 mouth. ity of Phos-PhSal- 10:00: [place] Hy[facility] 03 Medical (URIBEL) Branch 118-10-40.8 -36 mg capsule insulin 2021-11 Yes inject [facility] lispro 2-19 under the ity of (HUMALOG 10:00: skin. [place] KWIKPEN 03 Medical INSULIN SC) Branch [facility] 2021-11 Yes Take by [facility] Blue-Sod 2-19 mouth. ity of Phos-PhSal- 10:00: [place] Hy[facility] 03 Medical (URIBEL) Branch 118-10-40.8 -36 mg capsule insulin 2021-11 Yes inject [facility] lispro 2-19 under the ity of (HUMALOG 10:00: skin. [place] KWIKPEN 03 Medical INSULIN SC) Branch [facility] 2021-11 Yes Take by [facility] Blue-Sod 2-19 mouth. ity of Phos-PhSal- 10:00: [place] [address] Medical (URIB) Branch 118-10-40.8 -36 mg capsule insulin 2021-11 Yes inject Univers lispro 2-19 under the ity of (HUMALOG 10:00: skin. [place] KWIKPEN 03 Medical INSULIN SC) Branch [facility] 2021-11 Yes Take by [facility] Blue-Sod 2-19 mouth. ity of Phos-PhSal- 10:00: [address] (URIB) Branch 118-10-40.8 -36 mg capsule insulin 2021-11 Yes inject [facility] lispro 2-19 under the ity of (HUMALOG 10:00: [facility] [place] pregabalin 2021-11 Yes [id number] TAKE 1 [facility] (LYRICA) 2-19 CAPSULE BY Danielle ge 100 MG 00:00: MOUTH 3 of capsule 00 TIMES Medicin DAILY e baclofen 2021-11 Yes [id number] TAKE 1 [place] [facility] (LIORESAL) 2-19 TABLET BY Glenn ege 10 MG 00:00: MOUTH 3 of tablet 00 TIMES Medicin DAILY e ketorolac 2021-11- No 60mg 60 mg, Unive rs (TORADOL) 12-25 Intramuscu ity of injection 22:57: 23:33 lar, ONCE, [place] 60 mg 00 :00 1 dose, On [facility] Branch 10/24/22 at 1700, [place] traMADoL 2021-11- No 50mg 50 mg, Univer s (ULTRAM) 12-25 Oral, ity of tablet 50 22:48: 23:34 ONCE, 1 [place] mg 00 :00 dose, On [facility] 10/24/22 at 1700, [place] NaCl 0.9% 2021-11- No [id number] 1000mL at 999 Univers (NS) IV 12-21 12-07 mL/hr, IV ity of infusion 17:00: 18:04 Infusion, [place] 1,000 mL 00 :00 ONCE, 1 Medical dose, On Branch 10/20/22 at 1100, Routine levalbutero 2021-11 Yes [id number] INHALE 1-2 Univers l 45 1-30 PUFFS BY ity of mcg/actuati 00:00: MOUTH [place] on inhaler 00 EVERY 4 Medica l HOURS Branch NEEDED FOR WHEEZING *PATIENT NEEDS APPOINTMEN T FOR FURTHER REFILLS* levalbutero 2021-11 Yes [id number] INHALE 1-2 Univers l 45 1-30 PUFFS BY ity of mcg/actuati 00:00: MOUTH [place] on inhaler 00 EVERY 4 Medica l HOURS Branch NEEDED FOR WHEEZING *PATIENT NEEDS APPOINTMEN T FOR FURTHER REFILLS* levalbutero 2021-11 Yes [id number] INHALE 1-2 Univers l 45 1-30 PUFFS BY ity of mcg/actuati 00:00: MOUTH [place] on inhaler 00 EVERY 4 Medica l HOURS Branch NEEDED FOR WHEEZING *PATIENT NEEDS APPOINTMEN T FOR FURTHER REFILLS* levalbutero 2021-11 Yes [id number] INHALE 1-2 Univers l 45 1-30 PUFFS BY ity of mcg/actuati 00:00: MOUTH [place] on inhaler 00 EVERY 4 Medica l HOURS Branch NEEDED FOR WHEEZING *PATIENT NEEDS APPOINTMEN T FOR FURTHER REFILLS* levalbutero 2021-11 Yes [id number] INHALE 1-2 Univers l 45 1-30 PUFFS BY ity of mcg/actuati 00:00: MOUTH [place] on inhaler 00 EVERY 4 Medica l HOURS Branch NEEDED FOR WHEEZING *PATIENT NEEDS APPOINTMEN T FOR FURTHER REFILLS* levalbutero 2021-11 Yes [id number] INHALE 1-2 Univers l 45 1-30 PUFFS BY ity of mcg/actuati 00:00: MOUTH [place] on inhaler 00 EVERY 4 Medica l HOURS Branch NEEDED FOR WHEEZING *PATIENT NEEDS APPOINTMEN T FOR FURTHER REFILLS* levalbutero 2021-11 Yes [id number] INHALE 1-2 Univers l 45 1-30 PUFFS BY ity of mcg/actuati 00:00: MOUTH [place] on inhaler 00 EVERY 4 Medica l HOURS Branch NEEDED FOR WHEEZING *PATIENT NEEDS APPOINTMEN T FOR FURTHER REFILLS* levalbutero 2021-11 Yes [id number] INHALE 1-2 Univers l 45 1-30 PUFFS BY ity of mcg/actuati 00:00: MOUTH [place] on inhaler 00 EVERY 4 Medica l HOURS Branch NEEDED FOR WHEEZING *PATIENT NEEDS APPOINTMEN T FOR FURTHER REFILLS* levalbutero 2021-11 Yes [id number] INHALE 1-2 Univers l 45 1-30 PUFFS BY ity of mcg/actuati 00:00: MOUTH [place] on inhaler 00 EVERY 4 Medica l HOURS Branch NEEDED FOR WHEEZING *PATIENT NEEDS APPOINTMEN T FOR FURTHER REFILLS* levalbutero 2021-11 Yes [id number] INHALE 1-2 Univers l 45 1-30 PUFFS BY ity of mcg/actuati 00:00: MOUTH [place] on inhaler 00 EVERY 4 Medica l HOURS Branch NEEDED FOR WHEEZING *PATIENT NEEDS APPOINTMEN T FOR FURTHER REFILLS* levalbutero 2021-11 Yes [id number] INHALE 1-2 Univers l 45 1-30 PUFFS BY ity of mcg/actuati 00:00: MOUTH [place] on inhaler 00 EVERY 4 Medica l HOURS Branch NEEDED FOR WHEEZING *PATIENT NEEDS APPOINTMEN T FOR FURTHER REFILLS* levalbutero 2021-11 Yes [id number] INHALE 1-2 Univers l 45 1-30 PUFFS BY ity of mcg/actuati 00:00: MOUTH [place] on inhaler 00 EVERY 4 Medica l HOURS Branch NEEDED FOR WHEEZING *PATIENT NEEDS APPOINTMEN T FOR FURTHER REFILLS* levalbutero 2021-11 Yes [id number] INHALE 1-2 Univers l 45 1-30 PUFFS BY ity of mcg/actuati 00:00: MOUTH [place] on inhaler 00 EVERY 4 Medica l HOURS Branch NEEDED FOR WHEEZING *PATIENT NEEDS APPOINTMEN T FOR FURTHER REFILLS* levalbutero 2021-11- No [id number] INHALE 1-2 Univers l 45 1-30 12-30 PUFFS BY ity of mcg/actuati 00:00: 00:00 MOUTH [place] inhaler 00 :00 EVERY 4 Medica l HOURS Branch NEEDED FOR WHEEZING *PATIENT NEEDS APPOINTMEN T FOR FURTHER REFILLS* levalbutero 2021-11- No [id number] INHALE 1-2 Univers l 45 1-30 12-30 PUFFS BY ity of mcg/actuati 00:00: 00:00 MOUTH [place] inhaler 00 :00 EVERY 4 Medica l HOURS Branch NEEDED FOR WHEEZING *PATIENT NEEDS APPOINTMEN T FOR FURTHER REFILLS* ondansetron 2021-11 Yes 4mg Take 5 mL U nivers (ZOFRAN) 4 1-28 by mouth 2 ity of mg/5 mL 00:00: (two) [place] solution 00 times Medical daily as Branch needed for Nausea and Vomiting (N/V) or N/V unresponsi ve to Promethazi ne. ondansetron 2021-11 Yes 4mg Take 5 mL U nivers (ZOFRAN) 4 1-28 by mouth 2 ity of mg/5 mL 00:00: (two) [place] solution 00 times Medical daily as Branch needed for Nausea and Vomiting (N/V) or N/V unresponsi ve to Promethazi ne. ondansetron 2021-11 Yes 4mg Take 5 mL U nivers (ZOFRAN) 4 1-28 by mouth 2 ity of mg/5 mL 00:00: (two) [place] solution 00 times Medical daily as Branch needed for Nausea and Vomiting (N/V) or N/V unresponsi ve to Promethazi ne. ondansetron 2021-11 Yes 4mg Take 5 mL U nivers (ZOFRAN) 4 1-28 by mouth 2 ity of mg/5 mL 00:00: (two) [place] solution 00 times Medical daily as Branch needed for Nausea and Vomiting (N/V) or N/V unresponsi ve to Promethazi ne. ondansetron 2021-11 Yes 4mg Take 5 mL U nivers (ZOFRAN) 4 1-28 by mouth 2 ity of mg/5 mL 00:00: (two) [place] solution 00 times Medical daily as Branch needed for Nausea and Vomiting (N/V) or N/V unresponsi ve to Promethazi ne. ondansetron 2021-11 Yes 4mg Take 5 mL U nivers (ZOFRAN) 4 1-28 by mouth 2 ity of mg/5 mL 00:00: (two) [place] solution 00 times Medical daily as Branch needed for Nausea and Vomiting (N/V) or N/V unresponsi ve to [facility] ne. ondansetron 2021-11 Yes 4mg Take 5 mL [facility] (ZOFRAN) 4 1-28 by mouth 2 [facility]y of mg/5 mL 00:00: (two) [place] solution 00 times Medical daily as Branch needed for Nausea and Vomiting (N/V) or N/V unresponsi ve to [facility] ne. ondansetron 2021- Yes 4mg Take 5 mL [facility] (ZOFRAN) 4 1-28 by mouth 2 ity of mg/5 mL 00:00: (two) [place] solution 00 times Medical daily as Branch needed for Nausea and Vomiting (N/V) or N/V unresponsi ve to [facility] ne. ondansetron 2021- Yes 4mg Take 5 mL [facility] (ZOFRAN) 4 1-28 by mouth 2 [facility]y of mg/5 mL 00:00: (two) [place] solution 00 times Medical daily as Branch needed for Nausea and Vomiting (N/V) or N/V unresponsi ve to [facility] ne. ondansetron 2021- Yes 4mg Take 5 mL [facility] (ZOFRAN) 4 1-28 by mouth 2 [facility]y of mg/5 mL 00:00: (two) [place] solution 00 times Medical daily as Branch needed for Nausea and Vomiting (N/V) or N/V unresponsi ve to [facility] ne. ondansetron 2021- Yes 4mg Take 5 mL [facility] (ZOFRAN) 4 1-28 by mouth 2 [facility]y of mg/5 mL 00:00: (two) [place] solution 00 times Medical daily as Branch needed for Nausea and Vomiting (N/V) or N/V unresponsi ve to [facility] ne. ondansetron 2021- Yes 4mg Take 5 mL [facility] (ZOFRAN) 4 1-28 by mouth 2 ity of mg/5 mL 00:00: (two) [place] solution 00 times Medical daily as Branch needed for Nausea and Vomiting (N/V) or N/V unresponsi ve to [facility] ne. ondansetron 2021-1 Yes 4mg Take 5 mL [facility] (ZOFRAN) 4 1-28 by mouth 2 ity of mg/5 mL 00:00: (two) [place] solution 00 times Medical daily as Branch needed for Nausea and Vomiting (N/V) or N/V unresponsi ve to [facility] ne. ondansetron 2021- Yes 4mg Take 5 mL [facility] (ZOFRAN) 4 1-28 by mouth 2 ity of mg/5 mL 00:00: (two) [place] solution 00 times Medical daily as Branch needed for Nausea and Vomiting (N/V) or N/V unresponsi ve to [facility] ne. ondansetron 2021- Yes 4mg Take 5 mL [facility] (ZOFRAN) 4 1-28 by mouth 2 ity of mg/5 mL 00:00: (two) [place] solution 00 times Medical daily as Branch needed for Nausea and Vomiting (N/V) or N/V unresponsi ve to [facility] ne. ondansetron 2021- Yes 4mg Take 5 mL [facility] (ZOFRAN) 4 1-28 by mouth 2 ity of mg/5 mL 00:00: (two) [place] solution 00 times Medical daily as Branch needed for Nausea and Vomiting (N/V) or N/V unresponsi ve to [facility] ne. ondansetron 2021- Yes 4mg Take 5 mL [facility] (ZOFRAN) 4 1-28 by mouth 2 ity of mg/5 mL 00:00: (two) [place] solution 00 times Medical daily as Branch needed for Nausea and Vomiting (N/V) or N/V unresponsi ve to [facility] ne. ondansetron 2021- Yes 4mg Take 5 mL [facility] (ZOFRAN) 4 1-28 by mouth 2 ity of mg/5 mL 00:00: (two) [place] solution 00 times Medical daily as Branch needed for Nausea and Vomiting (N/V) or N/V unresponsi ve to [facility] ne. ondansetron 2021-1 Yes 4mg Take 5 mL [facility] (ZOFRAN) 4 1-28 by mouth 2 ity of mg/5 mL 00:00: (two) [place] solution 00 times Medical daily as Branch needed for Nausea and Vomiting (N/V) or N/V unresponsi ve to [facility] ne. ondansetron 2021-1 Yes 4mg Take 5 mL [facility] (ZOFRAN) 4 1-28 by mouth 2 ity of mg/5 mL 00:00: (two) [place] solution 00 times Medical daily as Branch needed for Nausea and Vomiting (N/V) or N/V unresponsi ve to [facility] ne. ondansetron 2021- Yes 4mg Take 5 mL [facility] (ZOFRAN) 4 1-28 by mouth 2 ity of mg/5 mL 00:00: (two) [place] solution 00 times Medical daily as Branch needed for Nausea and Vomiting (N/V) or N/V unresponsi ve to [facility] ne. ondansetron 2021- Yes 4mg Take 5 mL [facility] (ZOFRAN) 4 1-28 by mouth 2 ity of mg/5 mL 00:00: (two) [place] solution 00 times Medical daily as Branch needed for Nausea and Vomiting (N/V) or N/V unresponsi ve to [facility] ne. ondansetron 2021- Yes 4mg Take 5 mL [facility] (ZOFRAN) 4 1-28 by mouth 2 ity of mg/5 mL 00:00: (two) [place] solution 00 times Medical daily as Branch needed for Nausea and Vomiting (N/V) or N/V unresponsi ve to [facility] ne. ondansetron 2021- Yes 4mg Take 5 mL [facility] (ZOFRAN) 4 1-28 by mouth 2 ity of mg/5 mL 00:00: (two) [place] solution 00 times Medical daily as Branch needed for Nausea and Vomiting (N/V) or N/V unresponsi ve to [facility] ne. ondansetron 2021- Yes 4mg Take 5 mL [facility] (ZOFRAN) 4 1-28 by mouth 2 ity of mg/5 mL 00:00: (two) [place] solution 00 times Medical daily as Branch needed for Nausea and Vomiting (N/V) or N/V unresponsi ve to [facility] ne. ondansetron 2021-1 Yes 4mg Take 5 mL [facility] (ZOFRAN) 4 1-28 by mouth 2 ity of mg/5 mL 00:00: (two) [place] solution 00 times Medical daily as Branch needed for Nausea and Vomiting (N/V) or N/V unresponsi ve to [facility] ne. ondansetron 2021-1 Yes 4mg Take 5 mL [facility] (ZOFRAN) 4 1-28 by mouth 2 ity of mg/5 mL 00:00: (two) [place] solution 00 times Medical daily as Branch needed for Nausea and Vomiting (N/V) or N/V unresponsi ve to [facility] ne. ondansetron 2021- Yes 4mg Take 5 mL [facility] (ZOFRAN) 4 1-28 by mouth 2 ity of mg/5 mL 00:00: (two) [place] solution 00 times Medical daily as Branch needed for Nausea and Vomiting (N/V) or N/V unresponsi ve to [facility] ne. ondansetron 2021- Yes 4mg Take 5 mL [facility] (ZOFRAN) 4 1-28 by mouth 2 ity of mg/5 mL 00:00: (two) [place] solution 00 times Medical daily as Branch needed for Nausea and Vomiting (N/V) or N/V unresponsi ve to [facility] ne. ondansetron 2021- Yes 4mg Take 5 mL [facility] (ZOFRAN) 4 1-28 by mouth 2 ity of mg/5 mL 00:00: (two) [place] solution 00 times Medical daily as Branch needed for Nausea and Vomiting (N/V) or N/V unresponsi ve to [facility] ne. ondansetron 2021- Yes 4mg Take 5 mL [facility] (ZOFRAN) 4 1-28 by mouth 2 ity of mg/5 mL 00:00: (two) [place] solution 00 times Medical daily as Branch needed for Nausea and Vomiting (N/V) or N/V unresponsi ve to [facility] ne. ondansetron 2021- Yes 4mg Take 5 mL [facility] (ZOFRAN) 4 1-28 by mouth 2 ity of mg/5 mL 00:00: (two) [place] solution 00 times Medical daily as Branch needed for Nausea and Vomiting (N/V) or N/V unresponsi ve to [facility] ne. ondansetron 2021-1 Yes 4mg Take 5 mL [facility] (ZOFRAN) 4 1-28 by mouth 2 ity of mg/5 mL 00:00: (two) [place] solution 00 times Medical daily as Branch needed for Nausea and Vomiting (N/V) or N/V unresponsi ve to [facility] ne. ondansetron 2021- Yes 4mg Take 5 mL [facility] (ZOFRAN) 4 1-28 by mouth 2 ity of mg/5 mL 00:00: (two) [place] solution 00 times Medical daily as Branch needed for Nausea and Vomiting (N/V) or N/V unresponsi ve to [facility] ne. ondansetron 2021- Yes 4mg Take 5 mL [facility] (ZOFRAN) 4 1-28 by mouth 2 ity of mg/5 mL 00:00: (two) [place] solution 00 times Medical daily as Branch needed for Nausea and Vomiting (N/V) or N/V unresponsi ve to [facility] ne. ondansetron 2021- Yes 4mg Take 5 mL [facility] (ZOFRAN) 4 1-28 by mouth 2 ity of mg/5 mL 00:00: (two) [place] solution 00 times Medical daily as Branch needed for Nausea and Vomiting (N/V) or N/V unresponsi ve to [facility] ne. ondansetron 2021- Yes 4mg Take 5 mL [facility] (ZOFRAN) 4 1-28 by mouth 2 ity of mg/5 mL 00:00: (two) [place] solution 00 times Medical daily as Branch needed for Nausea and Vomiting (N/V) or N/V unresponsi ve to [facility] ne. ondansetron 2021- Yes 4mg Take 5 mL [facility] (ZOFRAN) 4 1-28 by mouth 2 ity of mg/5 mL 00:00: (two) [place] solution 00 times Medical daily as Branch needed for Nausea and Vomiting (N/V) or N/V unresponsi ve to [facility] ne. ondansetron 2021-1 Yes 4mg Take 5 mL [facility] (ZOFRAN) 4 1-28 by mouth 2 ity of mg/5 mL 00:00: (two) [place] solution 00 times Medical daily as Branch needed for Nausea and Vomiting (N/V) or N/V unresponsi ve to [facility] ne. ondansetron 2021-1 Yes 4mg Take 5 mL [facility] (ZOFRAN) 4 1-28 by mouth 2 ity of mg/5 mL 00:00: (two) [place] solution 00 times Medical daily as Branch needed for Nausea and Vomiting (N/V) or N/V unresponsi ve to [facility] ne. ondansetron 2021- Yes 4mg Take 5 mL [facility] (ZOFRAN) 4 1-28 by mouth 2 ity of mg/5 mL 00:00: (two) [place] solution 00 times Medical daily as Branch needed for Nausea and Vomiting (N/V) or N/V unresponsi ve to [facility] ne. ondansetron 2021- Yes 4mg Take 5 mL [facility] (ZOFRAN) 4 1-28 by mouth 2 ity of mg/5 mL 00:00: (two) [place] solution 00 times Medical daily as Branch needed for Nausea and Vomiting (N/V) or N/V unresponsi ve to [facility] ne. ondansetron 2021- Yes 4mg Take 5 mL [facility] (ZOFRAN) 4 1-28 by mouth 2 ity of mg/5 mL 00:00: (two) [place] solution 00 times Medical daily as Branch needed for Nausea and Vomiting (N/V) or N/V unresponsi ve to [facility] ne. ondansetron 2021- Yes 4mg Take 5 mL [facility] (ZOFRAN) 4 1-28 by mouth 2 ity of mg/5 mL 00:00: (two) [place] solution 00 times Medical daily as Branch needed for Nausea and Vomiting (N/V) or N/V unresponsi ve to [facility] ne. ondansetron 2021- Yes 4mg Take 5 mL [facility] (ZOFRAN) 4 1-28 by mouth 2 ity of mg/5 mL 00:00: (two) [place] solution 00 times Medical daily as Branch needed for Nausea and Vomiting (N/V) or N/V unresponsi ve to [facility] ne. ondansetron 2021-1 Yes 4mg Take 5 mL [facility] (ZOFRAN) 4 1-28 by mouth 2 ity of mg/5 mL 00:00: (two) [place] solution 00 times Medical daily as Branch needed for Nausea and Vomiting (N/V) or N/V unresponsi ve to [facility] ne. ondansetron 2021-1 Yes 4mg Take 5 mL [facility] (ZOFRAN) 4 1-28 by mouth 2 ity of mg/5 mL 00:00: (two) [place] solution 00 times Medical daily as Branch needed for Nausea and Vomiting (N/V) or N/V unresponsi ve to [facility] ne. ondansetron 2021- Yes 4mg Take 5 mL [facility] (ZOFRAN) 4 1-28 by mouth 2 ity of mg/5 mL 00:00: (two) [place] solution 00 times Medical daily as Branch needed for Nausea and Vomiting (N/V) or N/V unresponsi ve to [facility] ne. ondansetron 2021- Yes 4mg Take 5 mL [facility] (ZOFRAN) 4 1-28 by mouth 2 ity of mg/5 mL 00:00: (two) [place] solution 00 times Medical daily as Branch needed for Nausea and Vomiting (N/V) or N/V unresponsi ve to [facility] ne. ondansetron 2021- Yes 4mg Take 5 mL [facility] (ZOFRAN) 4 1-28 by mouth 2 ity of mg/5 mL 00:00: (two) [place] solution 00 times Medical daily as Branch needed for Nausea and Vomiting (N/V) or N/V unresponsi ve to [facility] ne. ondansetron 2021- Yes 4mg Take 5 mL [facility] (ZOFRAN) 4 1-28 by mouth 2 ity of mg/5 mL 00:00: (two) [place] solution 00 times Medical daily as Branch needed for Nausea and Vomiting (N/V) or N/V unresponsi ve to [facility] ne. ondansetron 2021- Yes 4mg Take 5 mL [facility] (ZOFRAN) 4 1-28 by mouth 2 ity of mg/5 mL 00:00: (two) [place] solution 00 times Medical daily as Branch needed for Nausea and Vomiting (N/V) or N/V unresponsi ve to [facility] ne. ondansetron 2021-1 Yes 4mg Take 5 mL [facility] (ZOFRAN) 4 1-28 by mouth 2 ity of mg/5 mL 00:00: (two) [place] solution 00 times Medical daily as Branch needed for Nausea and Vomiting (N/V) or N/V unresponsi ve to [facility] ne. ondansetron 2021- Yes 4mg Take 5 mL [facility] (ZOFRAN) 4 1-28 by mouth 2 ity of mg/5 mL 00:00: (two) [place] solution 00 times Medical daily as Branch needed for Nausea and Vomiting (N/V) or N/V unresponsi ve to [facility] ne. ondansetron 2021- Yes 4mg Take 5 mL [facility] (ZOFRAN) 4 1-28 by mouth 2 ity of mg/5 mL 00:00: (two) [place] solution 00 times Medical daily as Branch needed for Nausea and Vomiting (N/V) or N/V unresponsi ve to [facility] ne. ondansetron 2021- Yes 4mg Take 5 mL [facility] (ZOFRAN) 4 1-28 by mouth 2 ity of mg/5 mL 00:00: (two) [place] solution 00 times Medical daily as Branch needed for Nausea and Vomiting (N/V) or N/V unresponsi ve to [facility] ne. ondansetron 2021- Yes 4mg Take 5 mL [facility] (ZOFRAN) 4 1-28 by mouth 2 ity of mg/5 mL 00:00: (two) [place] solution 00 times Medical daily as Branch needed for Nausea and Vomiting (N/V) or N/V unresponsi ve to [facility] ne. ondansetron 2021- Yes 4mg Take 5 mL [facility] (ZOFRAN) 4 1-28 by mouth 2 ity of mg/5 mL 00:00: (two) [place] solution 00 times Medical daily as Branch needed for Nausea and Vomiting (N/V) or N/V unresponsi ve to [facility] ne. ondansetron 2021-1 Yes 4mg Take 5 mL [facility] (ZOFRAN) 4 1-28 by mouth 2 ity of mg/5 mL 00:00: (two) [place] solution 00 times Medical daily as Branch needed for Nausea and Vomiting (N/V) or N/V unresponsi ve to [facility] ne. ondansetron 2021-1 Yes 4mg Take 5 mL [facility] (ZOFRAN) 4 1-28 by mouth 2 ity of mg/5 mL 00:00: (two) [place] solution 00 times Medical daily as Branch needed for Nausea and Vomiting (N/V) or N/V unresponsi ve to [facility] ne. ondansetron 2021- Yes 4mg Take 5 mL [facility] (ZOFRAN) 4 1-28 by mouth 2 ity of mg/5 mL 00:00: (two) [place] solution 00 times Medical daily as Branch needed for Nausea and Vomiting (N/V) or N/V unresponsi ve to [facility] ne. ondansetron 2021- Yes 4mg Take 5 mL [facility] (ZOFRAN) 4 1-28 by mouth 2 ity of mg/5 mL 00:00: (two) [place] solution 00 times Medical daily as Branch needed for Nausea and Vomiting (N/V) or N/V unresponsi ve to [facility] ne. ondansetron 2021- Yes 4mg Take 5 mL [facility] (ZOFRAN) 4 1-28 by mouth 2 ity of mg/5 mL 00:00: (two) [place] solution 00 times Medical daily as Branch needed for Nausea and Vomiting (N/V) or N/V unresponsi ve to [facility] ne. ondansetron 2021- Yes 4mg Take 5 mL [facility] (ZOFRAN) 4 1-28 by mouth 2 ity of mg/5 mL 00:00: (two) [place] solution 00 times Medical daily as Branch needed for Nausea and Vomiting (N/V) or N/V unresponsi ve to [facility] ne. ondansetron 2021- Yes 4mg Take 5 mL [facility] (ZOFRAN) 4 1-28 by mouth 2 ity of mg/5 mL 00:00: (two) [place] solution 00 times Medical daily as Branch needed for Nausea and Vomiting (N/V) or N/V unresponsi ve to [facility] ne. ondansetron 2021-1 Yes 4mg Take 5 mL [facility] (ZOFRAN) 4 1-28 by mouth 2 ity of mg/5 mL 00:00: (two) [place] solution 00 times Medical daily as Branch needed for Nausea and Vomiting (N/V) or N/V unresponsi ve to [facility] ne. ondansetron 2021-1 Yes 4mg Take 5 mL [facility] (ZOFRAN) 4 1-28 by mouth 2 ity of mg/5 mL 00:00: (two) [place] solution 00 times Medical daily as Branch needed for Nausea and Vomiting (N/V) or N/V unresponsi ve to [facility] ne. ondansetron 2021-11 Yes 4mg Take 5 mL [facility] (ZOFRAN) 4 1-28 by mouth 2 ity of mg/5 mL 00:00: (two) [place] solution 00 times Medical daily as Branch needed for Nausea and Vomiting (N/V) or N/V unresponsi ve to [facility] ne. ondansetron 2021-11 Yes 4mg Take 5 mL [facility] (ZOFRAN) 4 1-28 by mouth 2 ity of mg/5 mL 00:00: (two) [place] solution 00 times Medical daily as Branch needed for Nausea and Vomiting (N/V) or N/V unresponsi ve to [facility] ne. lidocaine 2021-11- No 1{patch 1 Patch, [facility] (LIDODERM) 1-17 09-30 } Topical, ity of 5 % (700 08:00: 19:59 [facility] [place] mg/patch) 00 :00 over 12 Medical patch 1 Hours, Branch Patch ONCE, 1 dose, On Cecily 09/30/22 at 0200, Routine lidocaine 5 2021-11 Yes [id number] 1{patch Apply 1 [facility] % (700 1-17 } Patch to ity of mg/patch) 00:00: area(s) as [place] patch 00 needed for Medical Localized Branch pain. Diclofenac 2021-11 Yes [id number] Apply to [facility] Sodium 1-17 area(s) 4 ity of (VOLTAREN) 00:00: (four) [place] 1 % gel 00 times Medical daily as Branch needed for Pain (scale 4-6) or Pain (scale 1-3). lidocaine 5 2021-11 Yes [id number] 1{patch Apply 1 [facility] % (700 1-17 } Patch to it[facility] of mg/patch) 00:00: area(s) [place] patch 00 needed for [facility] Localized [facility] pain. Diclofenac 2021-11 Yes [id number] Apply to [facility] Sodium 1-17 area(s) 4 ity of (VOLTAREN) 00:00: (four) [place] 1 % gel 00 times Medical daily as Branch needed for Pain (scale 4-6) or Pain (scale 1-3). lidocaine 2021-11 Yes [id number] 1{patch Apply 1 [facility] % (700 1-17 } Patch to [facility]y of mg/patch) 00:00: area(s) [facility] [place] patch 00 needed for [facility] Localized [facility] pain. Diclofenac 2021-11 Yes [id number] Apply to [facility] Sodium 1-17 area(s) 4 ity of (VOLTAREN) 00:00: (four) [place] 1 % gel 00 times Medical daily as Branch needed for Pain (scale 4-6) or Pain (scale 1-3). lidocaine 2021-11 Yes [id number] 1{patch Apply 1 [facility] % (700 1-17 } Patch to [facility] of mg/patch) 00:00: area(s) [place] patch 00 needed for [facility] Localized [facility] pain. Diclofenac 2021-11 Yes [id number] Apply to [facility] Sodium 1-17 area(s) 4 ity of (VOLTAREN) 00:00: (four) [place] 1 % gel 00 times Medical daily as Branch needed for Pain (scale 4-6) or Pain (scale 1-3). lidocaine 2021-11 Yes [id number] 1{patch Apply 1 [facility] % (700 1-17 } Patch to [facility] of mg/patch) 00:00: area(s) [place] patch 00 needed for [facility] Localized [facility] pain. Diclofenac 2021-11 Yes [id number] Apply to [facility] Sodium 1-17 area(s) 4 ity of (VOLTAREN) 00:00: (four) [place] 1 % gel 00 times Medical daily as Branch needed for Pain (scale 4-6) or Pain (scale 1-3). lidocaine 2021-11 Yes [id number] 1{patch Apply 1 [facility] % (700 1-17 } Patch to [facility] of mg/patch) 00:00: area(s) [place] patch 00 needed for [facility] Localized [facility] pain. Diclofenac 2021-11 Yes [id number] Apply to [facility] Sodium 1-17 area(s) 4 ity of (VOLTAREN) 00:00: (four) [place] 1 % gel 00 times Medical daily as Branch needed for Pain (scale 4-6) or Pain (scale 1-3). lidocaine 2021-11 Yes [id number] 1{patch Apply 1 [facility] % (700 1-17 } Patch to [facility] of mg/patch) 00:00: area(s) as [place] patch 00 needed for Medical Localized Branch pain. Diclofenac 2021-11 Yes [id number] Apply to [facility] Sodium 1-17 area(s) 4 ity of (VOLTAREN) 00:00: (four) [place] 1 % gel 00 times Medical daily as Branch needed for Pain (scale 4-6) or Pain (scale 1-3). lidocaine 2021-11 Yes [id number] 1{patch Apply 1 [facility] % (700 1-17 } Patch to [facility] of mg/patch) 00:00: area(s) [facility] [place] patch 00 needed for Medical Localized [facility] pain. Diclofenac 2021-11 Yes [id number] Apply to [facility] Sodium 1-17 area(s) 4 ity of (VOLTAREN) 00:00: (four) [place] 1 % gel 00 times Medical daily as Branch needed for Pain (scale 4-6) or Pain (scale 1-3). lidocaine 2021-11 Yes [id number] 1{patch Apply 1 [facility] % (700 1-17 } Patch to [facility] of mg/patch) 00:00: area(s) as [place] patch 00 needed for Medical Localized Branch pain. Diclofenac 2021-11 Yes [id number] Apply to [facility] Sodium 1-17 area(s) 4 ity of (VOLTAREN) 00:00: (four) [place] 1 % gel 00 times Medical daily as Branch needed for Pain (scale 4-6) or Pain (scale 1-3). lidocaine 2021-11 Yes [id number] 1{patch Apply 1 [facility] % (700 1-17 } Patch to [facility]y of mg/patch) 00:00: area(s) as [place] patch 00 needed for Medical Localized Branch pain. Diclofenac 2021-11 Yes [id number] Apply to [facility] Sodium 1-17 area(s) 4 ity of (VOLTAREN) 00:00: (four) [place] 1 % gel 00 times Medical daily as Branch needed for Pain (scale 4-6) or Pain (scale 1-3). lidocaine 2021-11 Yes [id number] 1{patch Apply 1 [facility] % (700 1-17 } Patch to [facility] of mg/patch) 00:00: area(s) as [place] patch 00 needed for Medical Localized [facility] pain. Diclofenac 2021-11 Yes [id number] Apply to [facility] Sodium 1-17 area(s) 4 ity of (VOLTAREN) 00:00: (four) [place] 1 % gel 00 times Medical daily as Branch needed for Pain (scale 4-6) or Pain (scale 1-3). lidocaine 2021-11 Yes [id number] 1{patch Apply 1 [facility] % (700 1-17 } Patch to [facility] of mg/patch) 00:00: area(s) as [place] patch 00 needed for Medical Localized [facility] pain. Diclofenac 2021-11 Yes [id number] Apply to [facility] Sodium 1-17 area(s) 4 ity of (VOLTAREN) 00:00: (four) [place] 1 % gel 00 times Medical daily as Branch needed for Pain (scale 4-6) or Pain (scale 1-3). lidocaine 2021-11 Yes [id number] 1{patch Apply 1 [facility] % (700 1-17 } Patch to [facility]y of mg/patch) 00:00: area(s) as [place] patch 00 needed for Medical Localized Branch pain. Diclofenac 2021-11 Yes [id number] Apply to [facility] Sodium 1-17 area(s) 4 ity of (VOLTAREN) 00:00: (four) [place] 1 % gel 00 times Medical daily as Branch needed for Pain (scale 4-6) or Pain (scale 1-3). lidocaine 2021-11 Yes [id number] 1{patch Apply 1 [facility] % (700 1-17 } Patch to [facility] of mg/patch) 00:00: area(s) as [place] patch 00 needed for Medical Localized Branch pain. Diclofenac 2021-11 Yes [id number] Apply to [facility] Sodium 1-17 area(s) 4 ity of (VOLTAREN) 00:00: (four) [place] 1 % gel 00 times Medical daily as Branch needed for Pain (scale 4-6) or Pain (scale 1-3). lidocaine 2021-11 Yes [id number] 1{patch Apply 1 [facility] % (700 1-17 } Patch to [facility]y of mg/patch) 00:00: area(s) as [place] patch 00 needed for Medical Localized Branch pain. Diclofenac 2021-11 Yes [id number] Apply to [facility] Sodium 1-17 area(s) 4 ity of (VOLTAREN) 00:00: (four) [place] 1 % gel 00 times Medical daily as Branch needed for Pain (scale 4-6) or Pain (scale 1-3). lidocaine 5 2021-11 Yes [id number] 1{patch Apply 1 [facility] % (700 1-17 } Patch to [facility]y of mg/patch) 00:00: area(s) as [place] patch 00 needed for Medical Localized Branch pain. Diclofenac 2021-11 Yes [id number] Apply to [facility] Sodium 1-17 area(s) 4 ity of (VOLTAREN) 00:00: (four) [place] 1 % gel 00 times Medical daily as Branch needed for Pain (scale 4-6) or Pain (scale 1-3). Diclofenac 2021-11 Yes [id number] Apply to [facility] Sodium 1-17 area(s) 4 ity of (VOLTAREN) 00:00: (four) [place] 1 % gel 00 times Medical daily as Branch needed for Pain (scale 4-6) or Pain (scale 1-3). Diclofenac 2021-11 Yes [id number] Apply to [facility] Sodium 1-17 area(s) 4 ity of (VOLTAREN) 00:00: (four) [place] 1 % gel 00 times Medical daily as Branch needed for Pain (scale 4-6) or Pain (scale 1-3). Diclofenac 2021-11 Yes [id number] Apply to [facility] Sodium 1-17 area(s) 4 ity of (VOLTAREN) 00:00: (four) [place] 1 % gel 00 times Medical daily as Branch needed for Pain (scale 4-6) or Pain (scale 1-3). Diclofenac 2021-11 Yes [id number] Apply to [facility] Sodium 1-17 area(s) 4 ity of (VOLTAREN) 00:00: (four) [place] 1 % gel 00 times Medical daily as Branch needed for Pain (scale 4-6) or Pain (scale 1-3). Diclofenac 2021-11 Yes [id number] Apply to [facility] Sodium 1-17 area(s) 4 ity of (VOLTAREN) 00:00: (four) [place] 1 % gel 00 times Medical daily as Branch needed for Pain (scale 4-6) or Pain (scale 1-3). Diclofenac 2021-11 Yes [id number] Apply to [facility] Sodium 1-17 area(s) 4 ity of (VOLTAREN) 00:00: (four) [place] 1 % gel 00 times Medical daily as Branch needed for Pain (scale 4-6) or Pain (scale 1-3). Diclofenac 2021-11 Yes [id number] Apply to [facility] Sodium 1-17 area(s) 4 ity of (VOLTAREN) 00:00: (four) [place] 1 % gel 00 times Medical daily as Branch needed for Pain (scale 4-6) or Pain (scale 1-3). Diclofenac 2021-11 Yes [id number] Apply to [facility] Sodium 1-17 area(s) 4 ity of (VOLTAREN) 00:00: (four) [place] 1 % gel 00 times Medical daily as Branch needed for Pain (scale 4-6) or Pain (scale 1-3). Diclofenac 2021-11 Yes [id number] Apply to [facility] Sodium 1-17 area(s) 4 ity of (VOLTAREN) 00:00: (four) [place] 1 % gel 00 times Medical daily as Branch needed for Pain (scale 4-6) or Pain (scale 1-3). Diclofenac 2021-11 Yes [id number] Apply to [facility] Sodium 1-17 area(s) 4 ity of (VOLTAREN) 00:00: (four) [place] 1 % gel 00 times Medical daily as Branch needed for Pain (scale 4-6) or Pain (scale 1-3). Diclofenac 2021-11 Yes [id number] Apply to [facility] Sodium 1-17 area(s) 4 ity of (VOLTAREN) 00:00: (four) [place] 1 % gel 00 times Medical daily as Branch needed for Pain (scale 4-6) or Pain (scale 1-3). Diclofenac 2021-11 Yes [id number] Apply to [facility] Sodium 1-17 area(s) 4 ity of (VOLTAREN) 00:00: (four) [place] 1 % gel 00 times Medical daily as Branch needed for Pain (scale 4-6) or Pain (scale 1-3). Diclofenac 2021-11 Yes [id number] Apply to [facility] Sodium 1-17 area(s) 4 ity of (VOLTAREN) 00:00: (four) [place] 1 % gel 00 times Medical daily as Branch needed for Pain (scale 4-6) or Pain (scale 1-3). Diclofenac 2021-11 Yes [id number] Apply to [facility] Sodium 1-17 area(s) 4 ity of (VOLTAREN) 00:00: (four) [place] 1 % gel 00 times Medical daily as Branch needed for Pain (scale 4-6) or Pain (scale 1-3). Diclofenac 2021-11 Yes [id number] Apply to [facility] Sodium 1-17 area(s) 4 ity of (VOLTAREN) 00:00: (four) [place] 1 % gel 00 times Medical daily as Branch needed for Pain (scale 4-6) or Pain (scale 1-3). Diclofenac 2021-11 Yes [id number] Apply to [facility] Sodium 1-17 area(s) 4 ity of (VOLTAREN) 00:00: (four) [place] 1 % gel 00 times Medical daily as Branch needed for Pain (scale 4-6) or Pain (scale 1-3). Diclofenac 2021-11 Yes [id number] Apply to [facility] Sodium 1-17 area(s) 4 ity of (VOLTAREN) 00:00: (four) [place] 1 % gel 00 times Medical daily as Branch needed for Pain (scale 4-6) or Pain (scale 1-3). Diclofenac 2021-11 Yes [id number] Apply to [facility] Sodium 1-17 area(s) 4 ity of (VOLTAREN) 00:00: (four) [place] 1 % gel 00 times Medical daily as Branch needed for Pain (scale 4-6) or Pain (scale 1-3). Diclofenac 2021-11 Yes [id number] Apply to [facility] Sodium 1-17 area(s) 4 ity of (VOLTAREN) 00:00: (four) [place] 1 % gel 00 times Medical daily as Branch needed for Pain (scale 4-6) or Pain (scale 1-3). Diclofenac 2021-11 Yes [id number] Apply to [facility] Sodium 1-17 area(s) 4 ity of (VOLTAREN) 00:00: (four) [place] 1 % gel 00 times Medical daily as Branch needed for Pain (scale 4-6) or Pain (scale 1-3). Diclofenac 2021-11 Yes [id number] Apply to [facility] Sodium 1-17 area(s) 4 ity of (VOLTAREN) 00:00: (four) [place] 1 % gel 00 times Medical daily as Branch needed for Pain (scale 4-6) or Pain (scale 1-3). Diclofenac 2021-11 Yes [id number] Apply to [facility] Sodium 1-17 area(s) 4 ity of (VOLTAREN) 00:00: (four) [place] 1 % gel 00 times Medical daily as Branch needed for Pain (scale 4-6) or Pain (scale 1-3). Diclofenac 2021-11 Yes [id number] Apply to [facility] Sodium 1-17 area(s) 4 ity of (VOLTAREN) 00:00: (four) [place] 1 % gel 00 times Medical daily as Branch needed for Pain (scale 4-6) or Pain (scale 1-3). Diclofenac 2021-11 Yes [id number] Apply to [facility] Sodium 1-17 area(s) 4 ity of (VOLTAREN) 00:00: (four) [place] 1 % gel 00 times Medical daily as Branch needed for Pain (scale 4-6) or Pain (scale 1-3). Diclofenac 2021-11 Yes [id number] Apply to [facility] Sodium 1-17 area(s) 4 ity of (VOLTAREN) 00:00: (four) [place] 1 % gel 00 times Medical daily as Branch needed for Pain (scale 4-6) or Pain (scale 1-3). Diclofenac 2021-11 Yes [id number] Apply to [facility] Sodium 1-17 area(s) 4 ity of (VOLTAREN) 00:00: (four) [place] 1 % gel 00 times Medical daily as Branch needed for Pain (scale 4-6) or Pain (scale 1-3). Diclofenac 2021-11 Yes [id number] Apply to [facility] Sodium 1-17 area(s) 4 ity of (VOLTAREN) 00:00: (four) [place] 1 % gel 00 times Medical daily as Branch needed for Pain (scale 4-6) or Pain (scale 1-3). Diclofenac 2021-11 Yes [id number] Apply to [facility] Sodium 1-17 area(s) 4 ity of (VOLTAREN) 00:00: (four) [place] 1 % gel 00 times Medical daily as Branch needed for Pain (scale 4-6) or Pain (scale 1-3). Diclofenac 2021-11 Yes [id number] Apply to [facility] Sodium 1-17 area(s) 4 ity of (VOLTAREN) 00:00: (four) [place] 1 % gel 00 times Medical daily as Branch needed for Pain (scale 4-6) or Pain (scale 1-3). Diclofenac 2021-11 Yes [id number] Apply to [facility] Sodium 1-17 area(s) 4 ity of (VOLTAREN) 00:00: (four) [place] 1 % gel 00 times Medical daily as Branch needed for Pain (scale 4-6) or Pain (scale 1-3). Diclofenac 2021-11 Yes [id number] Apply to [facility] Sodium 1-17 area(s) 4 ity of (VOLTAREN) 00:00: (four) [place] 1 % gel 00 times Medical daily as Branch needed for Pain (scale 4-6) or Pain (scale 1-3). Diclofenac 2021-11 Yes [id number] Apply to [facility] Sodium 1-17 area(s) 4 ity of (VOLTAREN) 00:00: (four) [place] 1 % gel 00 times Medical daily as Branch needed for Pain (scale 4-6) or Pain (scale 1-3). Diclofenac 2021-11 Yes [id number] Apply to [facility] Sodium 1-17 area(s) 4 ity of (VOLTAREN) 00:00: (four) [place] 1 % gel 00 times Medical daily as Branch needed for Pain (scale 4-6) or Pain (scale 1-3). Diclofenac 2021-11 Yes [id number] Apply to [facility] Sodium 1-17 area(s) 4 ity of (VOLTAREN) 00:00: (four) [place] 1 % gel 00 times Medical daily as Branch needed for Pain (scale 4-6) or Pain (scale 1-3). Diclofenac 2021-11 Yes [id number] Apply to [facility] Sodium 1-17 area(s) 4 ity of (VOLTAREN) 00:00: (four) [place] 1 % gel 00 times Medical daily as Branch needed for Pain (scale 4-6) or Pain (scale 1-3). Diclofenac 2021-11 Yes [id number] Apply to [facility] Sodium 1-17 area(s) 4 ity of (VOLTAREN) 00:00: (four) [place] 1 % gel 00 times Medical daily as Branch needed for Pain (scale 4-6) or Pain (scale 1-3). Diclofenac 2021-11 Yes [id number] Apply to [facility] Sodium 1-17 area(s) 4 ity of (VOLTAREN) 00:00: (four) [place] 1 % gel 00 times Medical daily as Branch needed for Pain (scale 4-6) or Pain (scale 1-3). Diclofenac 2021-11 Yes [id number] Apply to [facility] Sodium 1-17 area(s) 4 ity of (VOLTAREN) 00:00: (four) [place] 1 % gel 00 times Medical daily as Branch needed for Pain (scale 4-6) or Pain (scale 1-3). Diclofenac 2021-11 Yes [id number] Apply to [facility] Sodium 1-17 area(s) 4 ity of (VOLTAREN) 00:00: (four) [place] 1 % gel 00 times Medical daily as Branch needed for Pain (scale 4-6) or Pain (scale 1-3). Diclofenac 2021-11 Yes [id number] Apply to [facility] Sodium 1-17 area(s) 4 ity of (VOLTAREN) 00:00: (four) [place] 1 % gel 00 times Medical daily as Branch needed for Pain (scale 4-6) or Pain (scale 1-3). Diclofenac 2021-11 Yes [id number] Apply to [facility] Sodium 1-17 area(s) 4 ity of (VOLTAREN) 00:00: (four) [place] 1 % gel 00 times Medical daily as Branch needed for Pain (scale 4-6) or Pain (scale 1-3). Diclofenac 2021-11 Yes [id number] Apply to [facility] Sodium 1-17 area(s) 4 ity of (VOLTAREN) 00:00: (four) [place] 1 % gel 00 times Medical daily as Branch needed for Pain (scale 4-6) or Pain (scale 1-3). Diclofenac 2021-11 Yes [id number] Apply to [facility] Sodium 1-17 area(s) 4 ity of (VOLTAREN) 00:00: (four) [place] 1 % gel 00 times Medical daily as Branch needed for Pain (scale 4-6) or Pain (scale 1-3). Diclofenac 2021-11 Yes [id number] Apply to [facility] Sodium 1-17 area(s) 4 ity of (VOLTAREN) 00:00: (four) [place] 1 % gel 00 times Medical daily as Branch needed for Pain (scale 4-6) or Pain (scale 1-3). Diclofenac 2021-11 Yes [id number] Apply to [facility] Sodium 1-17 area(s) 4 ity of (VOLTAREN) 00:00: (four) [place] 1 % gel 00 times Medical daily as Branch needed for Pain (scale 4-6) or Pain (scale 1-3). Diclofenac 2021-11 Yes [id number] Apply to [facility] Sodium 1-17 area(s) 4 ity of (VOLTAREN) 00:00: (four) [place] 1 % gel 00 times Medical daily as Branch needed for Pain (scale 4-6) or Pain (scale 1-3). Diclofenac 2021-11 Yes [id number] Apply to [facility] Sodium 1-17 area(s) 4 ity of (VOLTAREN) 00:00: (four) [place] 1 % gel 00 times Medical daily as Branch needed for Pain (scale 4-6) or Pain (scale 1-3). Diclofenac 2021-11 Yes [id number] Apply to [facility] Sodium 1-17 area(s) 4 ity of (VOLTAREN) 00:00: (four) [place] 1 % gel 00 times Medical daily as Branch needed for Pain (scale 4-6) or Pain (scale 1-3). Diclofenac 2021-11 Yes [id number] Apply to [facility] Sodium 1-17 area(s) 4 ity of (VOLTAREN) 00:00: (four) [place] 1 % gel 00 times Medical daily as Branch needed for Pain (scale 4-6) or Pain (scale 1-3). Diclofenac 2021-11 Yes [id number] Apply to [facility] Sodium 1-17 area(s) 4 ity of (VOLTAREN) 00:00: (four) [place] 1 % gel 00 times Medical daily as Branch needed for Pain (scale 4-6) or Pain (scale 1-3). Diclofenac 2021-11 Yes [id number] Apply to [facility] Sodium 1-17 area(s) 4 ity of (VOLTAREN) 00:00: (four) [place] 1 % gel 00 times Medical daily as Branch needed for Pain (scale 4-6) or Pain (scale 1-3). Diclofenac 2021-11 Yes [id number] Apply to [facility] Sodium 1-17 area(s) 4 ity of (VOLTAREN) 00:00: (four) [place] 1 % gel 00 times Medical daily as Branch needed for Pain (scale 4-6) or Pain (scale 1-3). Diclofenac 2021-11 Yes [id number] Apply to [facility] Sodium 1-17 area(s) 4 ity of (VOLTAREN) 00:00: (four) [place] 1 % gel 00 times Medical daily as Branch needed for Pain (scale 4-6) or Pain (scale 1-3). Diclofenac 2021-11 Yes [id number] Apply to [facility] Sodium 1-17 area(s) 4 ity of (VOLTAREN) 00:00: (four) [place] 1 % gel 00 times Medical daily as Branch needed for Pain (scale 4-6) or Pain (scale 1-3). Diclofenac 2021-11 Yes [id number] Apply to [facility] Sodium 1-17 area(s) 4 ity of (VOLTAREN) 00:00: (four) [place] 1 % gel 00 times Medical daily as Branch needed for Pain (scale 4-6) or Pain (scale 1-3). Diclofenac 2021-11 Yes [id number] Apply to [facility] Sodium 1-17 area(s) 4 ity of (VOLTAREN) 00:00: (four) [place] 1 % gel 00 times Medical daily as Branch needed for Pain (scale 4-6) or Pain (scale 1-3). lidocaine 5 2021-11- No [id number] 1{patch Apply 1 [facility] % (700 1-17 12-19 } Patch to ity of mg/patch) 00:00: 00:00 area(s) as [place] patch 00 :00 needed for Medical Localized Branch pain. lidocaine 5 2021-11- No [id number] 1{patch Apply 1 [facility] % (700 1-17 12-19 } Patch to ity of mg/patch) 00:00: 00:00 area(s) as [place] patch 00 :00 needed for Medical Localized Branch pain. lidocaine 5 2021-11- No [id number] 1{patch Apply 1 [facility] % (700 1-17 12-19 } Patch to ity of mg/patch) 00:00: 00:00 area(s) as [place] patch 00 :00 needed for Medical Localized Branch pain. methylPREDN 2021-11- No [id number] Take by [facility] ISolone 4 17 11-24 mouth ity of mg tablets 00:00: 05:59 SEE-INSTRU [place] 00 :00 CTIONS for Medical 6 days. Branch follow package directions methylPREDN 2021-11- No [id number] Take by [facility] ISolone 4 17 11-24 mouth ity of mg tablets 00:00: 05:59 SEE-INSTRU [place] 00 :00 CTIONS for Medical 6 days. Branch follow package directions NaCl 0.9% 2021-11- No [id number] 1000mL at 999 Univers (NS) IV 11-22 11-09 mL/hr, IV ity of infusion 16:45: 17:51 Infusion, [place] 1,000 mL 00 :00 ONCE, 1 Medical dose, On Branch Tue09/22/22 at 1045, Routine NaCl 0.9% 2021-11- No [id number] 1000mL at 999 Univers (NS) bolus 104 11-04 mL/hr, ity of infusion 05:45: 06:14 1,000 mL, [place] 1,000 mL 00 :00 IV Medical Infusion, Branch ONCE, 1 dose, On Tue09/17/22 at 0045, [place] ondansetron 2021-11- No [id number] 4mg 4 mg, Slow Univers (ZOFRAN 11-17 11-04 IV Push, ity of (PF)) 05:00: 05:12 ONCE, 1 [place] injection 4 00 :00 dose, On Medi stan mg Fri Branch 09/17/22 at 0000, [place] levalbutero 2021-11 Yes [id number] INHALE 1-2 Univers l 45 1-04 PUFFS BY ity of mcg/actuati 00:00: MOUTH [place] on inhaler 00 EVERY 4 Medica l HOURS Branch NEEDED FOR WHEEZING levalbutero 2021-11 Yes [id number] INHALE 1-2 Univers l 45 1-04 PUFFS BY ity of mcg/actuati 00:00: MOUTH [place] on inhaler 00 EVERY 4 Medica l HOURS Branch NEEDED FOR WHEEZING fluticasone 2021-11 Yes [id number] INHALE 2 [facility] propion-lauren 1-04 PUFFS BY ity of meteroL 00:00: MOUTH 2 [place] (ADVAIR 00 (TWO) Medical HFA) 230-21 TIMES Branch mcg/actuati DAILY. on inhaler levalbutero 2021-11 Yes [id number] INHALE 1-2 Univers l 45 1-04 PUFFS BY ity of mcg/actuati 00:00: MOUTH [place] on inhaler 00 EVERY 4 Medica l HOURS Branch NEEDED FOR WHEEZING fluticasone 2021-11 Yes [id number] INHALE 2 [facility] propion-lauren 1-04 PUFFS BY ity of meteroL 00:00: MOUTH 2 [place] (ADVAIR 00 (TWO) Medical HFA) 230-21 TIMES Branch mcg/actuati DAILY. on inhaler levalbutero 2021-11 Yes [id number] INHALE 1-2 Univers l 45 1-04 PUFFS BY ity of mcg/actuati 00:00: MOUTH [place] on inhaler 00 EVERY 4 Medica l HOURS Branch NEEDED FOR WHEEZING fluticasone 2021-11 Yes [id number] INHALE 2 [facility] propion-lauren 1-04 PUFFS BY ity of meteroL 00:00: MOUTH 2 [place] (ADVAIR 00 (TWO) Medical HFA) 230-21 TIMES Branch mcg/actuati DAILY. on inhaler levalbutero 2021-11 Yes [id number] INHALE 1-2 Univers l 45 1-04 PUFFS BY ity of mcg/actuati 00:00: MOUTH [place] on inhaler 00 EVERY 4 Medica l HOURS Branch NEEDED FOR WHEEZING fluticasone 2021-11 Yes [id number] INHALE 2 [facility] propion-lauren 1-04 PUFFS BY ity of meteroL 00:00: MOUTH 2 [place] (ADVAIR 00 (TWO) Medical HFA) 230-21 TIMES Branch mcg/actuati DAILY. on inhaler levalbutero 2021-11 Yes [id number] INHALE 1-2 Univers l 45 1-04 PUFFS BY ity of mcg/actuati 00:00: MOUTH [place] on inhaler 00 EVERY 4 Medica l HOURS Branch NEEDED FOR WHEEZING fluticasone 2021-11 Yes [id number] INHALE 2 [facility] propion-lauren 1-04 PUFFS BY ity of meteroL 00:00: MOUTH 2 [place] (ADVAIR ([facility]) Medical HFA) 230-21 TIMES Branch mcg/actuati DAILY. on inhaler levalbutero 2021-11 Yes [id number] INHALE 1-2 Univers l 45 1-04 PUFFS BY ity of mcg/actuati 00:00: MOUTH on inhaler 00 EVERY 4 Medica l HOURS Branch NEEDED FOR WHEEZING fluticasone 2021-11 Yes [id number] INHALE 2 [facility] propion-lauren 1-04 PUFFS BY ity of meteroL 00:00: MOUTH 2 [place] (ADVAIR (TWO) Medical HFA) 230-21 TIMES Branch mcg/actuati DAILY. on inhaler levalbutero 2021-11 Yes [id number] INHALE 1-2 Univers l 45 1-04 PUFFS BY ity of mcg/actuati 00:00: MOUTH [place] on inhaler 00 EVERY 4 Medica l HOURS Branch NEEDED FOR WHEEZING fluticasone 2021-11 Yes [id number] INHALE 2 [facility] propion-lauren 1-04 PUFFS BY ity of meteroL 00:00: MOUTH 2 [place] (ADVAIR ([facility]) Medical HFA) 230-21 TIMES Branch mcg/actuati DAILY. on inhaler levalbutero 2021-11 Yes [id number] INHALE 1-2 Univers l 45 1-04 PUFFS BY ity of mcg/actuati 00:00: MOUTH [place] on inhaler 00 EVERY 4 Medica l HOURS Branch NEEDED FOR WHEEZING fluticasone 2021-11 Yes [id number] INHALE 2 [facility] propion-lauren 1-04 PUFFS BY ity of meteroL 00:00: MOUTH 2 [place] (ADVAIR ([facility]) Medical HFA) 230-21 TIMES Branch mcg/actuati DAILY. on inhaler levalbutero 2021-11 Yes [id number] INHALE 1-2 Univers l 45 1-04 PUFFS BY ity of mcg/actuati 00:00: MOUTH [place] on inhaler 00 EVERY 4 Medica l HOURS Branch NEEDED FOR WHEEZING fluticasone 2021-11 Yes [id number] INHALE 2 [facility] propion-lauren 1-04 PUFFS BY ity of meteroL 00:00: MOUTH 2 [place] (ADVAIR (TWO) Medical HFA) 230-21 TIMES Branch mcg/actuati DAILY. on inhaler levalbutero 2021-11 Yes [id number] INHALE 1-2 Univers l 45 1-04 PUFFS BY ity of mcg/actuati 00:00: MOUTH [place] on inhaler 00 EVERY 4 Medica l HOURS Branch NEEDED FOR WHEEZING fluticasone 2021-11 Yes [id number] INHALE 2 [facility] propion-lauren 1-04 PUFFS BY ity of meteroL 00:00: MOUTH 2 [place] (ADVAIR ([facility]) [facility]) 230-21 TIMES Branch mcg/actuati DAILY. on inhaler levalbutero 2021-11 Yes [id number] INHALE 1-2 Univers l 45 1-04 PUFFS BY ity of mcg/actuati 00:00: MOUTH [place] on inhaler 00 EVERY 4 Medica l HOURS Branch NEEDED FOR WHEEZING fluticasone 2021-11 Yes [id number] INHALE 2 [facility] propion-lauren 1-04 PUFFS BY ity of meteroL 00:00: MOUTH 2 [place] [facility]) 230-21 TIMES Branch mcg/actuati DAILY. on inhaler levalbutero 2021-11 Yes [id number] INHALE 1-2 Univers l 45 1-04 PUFFS BY ity of mcg/actuati 00:00: MOUTH [place] on inhaler 00 EVERY 4 Medica l HOURS Branch NEEDED FOR WHEEZING fluticasone 2021-11 Yes [id number] INHALE 2 [facility] propion-lauren 1-04 PUFFS BY ity of meteroL 00:00: MOUTH 2 [place] ([facility]IR [facility] Branch mcg/actuati DAILY. on inhaler fluticasone 2021-11 Yes [id number] INHALE 2 [facility] propion-lauren 1-04 PUFFS BY ity of meteroL 00:00: MOUTH 2 [place] (ADVAIR (TWO) Medical HFA) 230-21 TIMES Branch mcg/actuati DAILY. on inhaler fluticasone 2021-11 Yes [id number] INHALE 2 [facility] propion-lauren 1-04 PUFFS BY ity of meteroL 00:00: MOUTH 2 [place] (ADVAIR (TWO) Medical HFA) 230-21 TIMES Branch mcg/actuati DAILY. on inhaler fluticasone 2021-11 Yes [id number] INHALE 2 [facility] propion-lauren 1-04 PUFFS BY ity of meteroL 00:00: MOUTH 2 [place] (ADVAIR ([facility]) 230-21 TIMES Branch mcg/actuati DAILY. on inhaler fluticasone 2021-11 Yes [id number] INHALE 2 [facility] propion-lauren 1-04 PUFFS BY ity of meteroL 00:00: MOUTH 2 [place] (ADVAIR ([facility]) 230-21 TIMES Branch mcg/actuati DAILY. on inhaler fluticasone 2021-11 Yes [id number] INHALE 2 [facility] propion-lauren 1-04 PUFFS BY ity of meteroL 00:00: MOUTH 2 [place] [facility]ES Branch mcg/actuati DAILY. on inhaler fluticasone 2021-11 Yes [id number] INHALE 2 [facility] propion-lauren 1-04 PUFFS BY ity of meteroL 00:00: MOUTH 2 [place] [facility]-21 TIMES Branch mcg/actuati DAILY. on inhaler fluticasone 2021-11 Yes [id number] INHALE 2 [facility] propion-lauren 1-04 PUFFS BY ity of meteroL 00:00: MOUTH 2 [place] [facility] 230-21 TIMES Branch mcg/actuati DAILY. on inhaler fluticasone 2021-11 Yes [id number] INHALE 2 [facility] propion-lauren 1-04 PUFFS BY ity of meteroL 00:00: MOUTH 2 [place] (ADVAIR [facility] TIMES Branch mcg/actuati DAILY. on inhaler fluticasone 2021-11 Yes [id number] INHALE 2 [facility] propion-lauren 1-04 PUFFS BY ity of meteroL 00:00: MOUTH 2 [place] (ADVAIR 00 ([facility]) [facility] HFA) 230-21 TIMES Branch mcg/actuati DAILY. on inhaler fluticasone 2021-11 Yes [id number] INHALE 2 [facility] propion-lauren 1-04 PUFFS BY ity of meteroL 00:00: MOUTH 2 [place] (ADVAIR 00 ([facility] 230[facility]21 TIMES Branch mcg/actuati DAILY. on inhaler fluticasone 2021-11 Yes [id number] INHALE 2 [facility] propion-lauren 1-04 PUFFS BY ity of meteroL 00:00: MOUTH 2 [place] (ADVAIR ([facility] HFA) 230-21 TIMES Branch mcg/actuati DAILY. on inhaler fluticasone 2021-11 Yes [id number] INHALE 2 [facility] propion-lauren 1-04 PUFFS BY ity of meteroL 00:00: MOUTH 2 [place] (ADVAIR ([facility] HFA) 230-21 TIMES Branch mcg/actuati DAILY. on inhaler fluticasone 2021-11 Yes [id number] INHALE 2 [facility] propion-lauren 1-04 PUFFS BY ity of meteroL 00:00: MOUTH 2 [place] (ADVAIR ([facility] HFA) 230-21 TIMES Branch mcg/actuati DAILY. on inhaler fluticasone 2021-11 Yes [id number] INHALE 2 [facility] propion-lauren 1-04 PUFFS BY ity of meteroL 00:00: MOUTH 2 [place] (ADVAIR ([facility]) [facility] HFA) 230-21 TIMES Branch mcg/actuati DAILY. on inhaler fluticasone 2021-11 Yes [id number] INHALE 2 [facility] propion-lauren 1-04 PUFFS BY ity of meteroL 00:00: MOUTH 2 [place] (ADVAIR ([facility] HFA) 230-21 TIMES Branch mcg/actuati DAILY. on inhaler fluticasone 2021-11 Yes [id number] INHALE 2 [facility] propion-lauren 1-04 PUFFS BY ity of meteroL 00:00: MOUTH 2 [place] (ADVAIR ([facility]) Medical HFA) 230-21 TIMES Branch mcg/actuati DAILY. on inhaler fluticasone 2021-11 Yes [id number] INHALE 2 [facility] propion-lauren 1-04 PUFFS BY ity of meteroL 00:00: MOUTH 2 [place] (ADVAIR (TWO) [facility] HFA) 230-21 TIMES Branch mcg/actuati DAILY. on inhaler fluticasone 2021-11 Yes [id number] INHALE 2 [facility] propion-lauren 1-04 PUFFS BY ity of meteroL 00:00: MOUTH 2 [place] (ADVAIR ([facility]) Medical HFA) 230-21 TIMES Branch mcg/actuati DAILY. on inhaler fluticasone 2021-11- No [id number] INHALE 2 [facility] propion-lauren 1-04 01-10 PUFFS BY ity of meteroL 00:00: 00:00 MOUTH 2 [place] (ADVAIR 00 :00 (TWO) Medical HFA) 230-21 TIMES Branch mcg/actuati DAILY. on inhaler fluticasone 2021-11- No [id number] INHALE 2 [facility] propion-lauren 1-04 01-10 PUFFS BY ity of meteroL 00:00: 00:00 MOUTH 2 [place] (ADVAIR 00 :00 (TWO) Medical HFA) 230-21 TIMES Branch mcg/actuati DAILY. on inhaler fluticasone 2021-11- No [id number] INHALE 2 [facility] propion-lauren 1-04 01-10 PUFFS BY ity of meteroL 00:00: 00:00 MOUTH 2 [place] (ADVAIR 00 :00 (TWO) Medical HFA) 230-21 TIMES Branch mcg/actuati DAILY. on inhaler fluticasone 2021-11- No [id number] INHALE 2 [facility] propion-lauren 1-04 01-10 PUFFS BY ity of meteroL 00:00: 00:00 MOUTH 2 [place] (ADVAIR 00 :00 (TWO) Medical HFA) 230-21 TIMES Branch mcg/actuati DAILY. on inhaler levalbutero 2021-11- No [id number] INHALE 1-2 Univers l 45 1-04 11-30 PUFFS BY ity of mcg/actuati 00:00: 00:00 MOUTH [place] on inhaler 00 :00 EVERY 4 Medica l HOURS Branch NEEDED FOR WHEEZING famotidine 2021-11 Yes [id number] TAKE 1 Univers 20 mg 1-01 TABLET BY ity of tablet 00:00: MOUTH [place] 00 TWICE Medical DAILY Branch famotidine 2021-11 Yes [id number] TAKE 1 [facility] 20 mg 1-01 TABLET BY ity of tablet 00:00: MOUTH [place] 00 TWICE Medical DAILY Branch famotidine 2021-11 Yes [id number] TAKE 1 [facility] 20 mg 1-01 TABLET BY ity of tablet 00:00: MOUTH [place] 00 TWICE Medical DAILY Branch famotidine 2021-11 Yes [id number] TAKE 1 [facility] 20 mg 1-01 TABLET BY ity of tablet 00:00: MOUTH TWICE Medical DAILY Branch famotidine 2021-11 Yes [id number] TAKE 1 [facility] 20 mg 1-01 TABLET BY ity of tablet 00:00: MOUTH [place] TWICE Medical DAILY Branch famotidine 2021-11 Yes [id number] TAKE 1 [facility] 20 mg 1-01 TABLET BY ity of tablet 00:00: MOUTH [place] TWICE Medical DAILY Branch famotidine 2021-11 Yes [id number] TAKE 1 [facility] 20 mg 1-01 TABLET BY ity of tablet 00:00: MOUTH [place] TWICE Medical DAILY Branch famotidine 2021-11 Yes [id number] TAKE 1 Univers 20 mg 1-01 TABLET BY ity of tablet 00:00: [facility] TWICE Medical DAILY Branch famotidine 2021-11 Yes [id number] TAKE 1 Univers 20 mg 1-01 TABLET BY ity of tablet 00:00: [facility] TWICE Medical DAILY Branch famotidine 2021-11 Yes [id number] TAKE 1 Univers 20 mg 1-01 TABLET BY ity of tablet 00:00: MOUTH [place] TWICE Medical DAILY Branch famotidine 2021-11 Yes [id number] TAKE 1 Univers 20 mg 1-01 TABLET BY ity of tablet 00:00: [facility] TWICE Medical DAILY Branch famotidine 2021-11 Yes [id number] TAKE 1 Univers 20 mg 1-01 TABLET BY ity of tablet 00:00: [facility] TWICE Medical DAILY Branch famotidine 2021-11 Yes [id number] TAKE 1 Univers 20 mg 1-01 TABLET BY ity of tablet 00:00: [facility] TWICE Medical DAILY Branch famotidine 2021-11 Yes [id number] TAKE 1 [facility] 20 mg 1-01 TABLET BY ity of tablet 00:00: MOUTH [place] TWICE Medical DAILY Branch famotidine 2021-11 Yes [id number] TAKE 1 [facility] 20 mg 1-01 TABLET BY ity of tablet 00:00: [facility] 00 TWICE Medical DAILY Branch famotidine 2021-11 Yes [id number] TAKE 1 [facility] 20 mg 1-01 TABLET BY ity of tablet 00:00: [facility] TWICE Medical DAILY Branch famotidine 2021-11 Yes [id number] TAKE 1 [facility] 20 mg 1-01 TABLET BY ity of tablet 00:00: MOUTH TWICE Medical DAILY Branch famotidine 2021-11 Yes [id number] TAKE 1 [facility] 20 mg 1-01 TABLET BY ity of tablet 00:00: MOUTH TWICE Medical DAILY Branch famotidine 2021-11 Yes [id number] TAKE 1 [facility] 20 mg 1-01 TABLET BY ity of tablet 00:00: MOUTH TWICE Medical DAILY Branch famotidine 2021-11 Yes [id number] TAKE 1 [facility] 20 mg 1-01 TABLET BY ity of tablet 00:00: MOUTH TWICE Medical DAILY Branch famotidine 2021-11 Yes [id number] TAKE 1 [facility] 20 mg 1-01 TABLET BY ity of tablet 00:00: MOUTH TWICE Medical DAILY Branch famotidine 2021-11 Yes [id number] TAKE 1 [facility] 20 mg 1-01 TABLET BY ity of tablet 00:00: MOUTH TWICE Medical DAILY Branch famotidine 2021-11 Yes [id number] TAKE 1 [facility] 20 mg 1-01 TABLET BY ity of tablet 00:00: [facility] TWICE Medical DAILY Branch famotidine 2021-11 Yes [id number] TAKE 1 [facility] 20 mg 1-01 TABLET BY ity of tablet 00:00: MOUTH TWICE Medical DAILY Branch famotidine 2021-11 Yes [id number] TAKE 1 [facility] 20 mg 1-01 TABLET BY ity of tablet 00:00: [facility] TWICE Medical DAILY Branch famotidine 2021-11 Yes [id number] TAKE 1 [facility] 20 mg 1-01 TABLET BY ity of tablet 00:00: [facility] TWICE Medical DAILY Branch famotidine 2021-11 Yes [id number] TAKE 1 [facility] 20 mg 1-01 TABLET BY ity of tablet 00:00: MOUTH TWICE Medical DAILY Branch famotidine 2021-11 Yes [id number] TAKE 1 [facility] 20 mg 1-01 TABLET BY ity of tablet 00:00: [facility] TWICE Medical DAILY Branch famotidine 2021-11 Yes [id number] TAKE 1 [facility] 20 mg 1-01 TABLET BY ity of tablet 00:00: MOUTH [place] TWICE Medical DAILY Branch famotidine 2021-11 Yes [id number] TAKE 1 [facility] 20 mg 1-01 TABLET BY ity of tablet 00:00: MOUTH [place] TWICE Medical DAILY Branch famotidine 2022-1 Yes [id number] TAKE 1 [facility] 20 mg 1-01 TABLET BY [facility] tablet 00:00: [facility] famotidine 2021-11 Yes [id number] TAKE 1 [facility] 20 mg 1-01 TABLET BY [facility] tablet 00:00: [facility]TH [facility] DA[facility] famotidine 2021-11 Yes [id number] TAKE 1 [facility] 20 mg 1-01 TABLET BY [facility] tablet 00:00: [facility]TH TW[facility] famotidine 2021-11 Yes [id number] TAKE 1 [facility] 20 mg 1-01 TABLET BY [facility] tablet 00:00: [facility]TH [facility] famotidine 2021-11 Yes [id number] TAKE 1 [facility] 20 mg 1-01 TABLET BY [facility] tablet 00:00: [facility]TH [facility] famotidine 2021-11 Yes [id number] TAKE 1 [facility] 20 mg 1-01 TABLET BY [facility] tablet 00:00: [facility]TH TW[facility] DA[facility] famotidine 2021-11 Yes [id number] TAKE 1 [facility] 20 mg 1-01 TABLET BY [facility] tablet 00:00: [facility]TH [facility] DA[facility] famotidine 2021-11 Yes [id number] TAKE 1 [facility] 20 mg 1-01 TABLET BY [facility] tablet 00:00: MOUTH TWICE [facility] DAILY [facility] famotidine 2021-11 Yes [id number] TAKE 1 [facility] 20 mg 1-01 TABLET BY [facility] of tablet 00:00: MOUTH TWICE Medical DAILY Branch famotidine 2021- Yes [id number] TAKE 1 [facility] 20 mg 1-01 TABLET BY [facility] tablet 00:00: MOUTH TWICE Medical DAILY Branch famotidine 2021- Yes [id number] TAKE 1 [facility] 20 mg 1-01 TABLET BY [facility] of tablet 00:00: MOUTH TWICE Medical DAILY Branch famotidine 2021- Yes [id number] TAKE 1 [facility] 20 mg 1-01 TABLET BY [facility] tablet 00:00: MOUTH TWICE Medical DAILY Branch famotidine 2021- Yes [id number] TAKE 1 [facility] 20 mg 1-01 TABLET BY [facility] of tablet 00:00: MOUTH TWICE Medical DAILY Branch famotidine 2021- Yes [id number] TAKE 1 [facility] 20 mg 1-01 TABLET BY [facility] tablet 00:00: MOUTH TWICE Medical DAILY Branch famotidine 2021-11 Yes [id number] TAKE 1 [facility] 20 mg 1-01 TABLET BY [facility] of tablet 00:00: MOUTH TWICE Medical DAILY Branch famotidine 2021-11 Yes [id number] TAKE 1 [facility] 20 mg 1-01 TABLET BY [facility] of tablet 00:00: MOUTH TWICE Medical DAILY Branch famotidine 2021-11 Yes [id number] TAKE 1 [facility] 20 mg 1-01 TABLET BY [facility] of tablet 00:00: MOUTH TWICE Medical DAILY Branch famotidine 2021-11 Yes [id number] TAKE 1 [facility] 20 mg 1-01 TABLET BY [facility] tablet 00:00: MOUTH TWICE Medical DAILY Branch famotidine 2021-11 Yes [id number] TAKE 1 [facility] 20 mg 1-01 TABLET BY [facility] tablet 00:00: MOUTH TWICE Medical DAILY Branch famotidine 2021-11 Yes [id number] TAKE 1 [facility] 20 mg 1-01 TABLET BY [facility] of tablet 00:00: MOUTH TWICE Medical DAILY Branch famotidine 2021-11 Yes [id number] TAKE 1 [facility] 20 mg 1-01 TABLET BY [facility] of tablet 00:00: MOUTH TWICE Medical DAILY Branch famotidine 2021-11 Yes [id number] TAKE 1 [facility] 20 mg 1-01 TABLET BY [facility] of tablet 00:00: MOUTH TWICE Medical DAILY Branch famotidine 2021-11 Yes [id number] TAKE 1 [facility] 20 mg 1-01 TABLET BY [facility] of tablet 00:00: [facility] TWICE Medical DAILY Branch famotidine 2021-11 Yes [id number] TAKE 1 [facility] 20 mg 1-01 TABLET BY ity of tablet 00:00: MOUTH TWICE Medical DAILY Branch famotidine 2021-11 Yes [id number] TAKE 1 [facility] 20 mg 1-01 TABLET BY [facility] of tablet 00:00: MOUTH TWICE Medical DAILY Branch famotidine 2021-11 Yes [id number] TAKE 1 [facility] 20 mg 1-01 TABLET BY [facility] of tablet 00:00: MOUTH TWICE Medical DAILY Branch famotidine 2021-11 Yes [id number] TAKE 1 [facility] 20 mg 1-01 TABLET BY [facility] of tablet 00:00: MOUTH TWICE Medical DAILY Branch famotidine 2022-1 Yes [id number] TAKE 1 [facility] 20 mg 1-01 TABLET BY [facility] of tablet 00:00: MOUTH [place] 00 TWICE Medical DAILY Branch famotidine 2021-11 Yes [id number] TAKE 1 [facility] 20 mg 1-01 TABLET BY [facility] of tablet 00:00: MOUTH 00 TWICE Medical DAILY Branch famotidine 2021-11 Yes [id number] TAKE 1 [facility] 20 mg 1-01 TABLET BY [facility] of tablet 00:00: MOUTH TWICE Medical DAILY Branch famotidine 2021-11 Yes [id number] TAKE 1 [facility] 20 mg 1-01 TABLET BY [facility] of tablet 00:00: MOUTH 00 TWICE Medical DAILY Branch famotidine 2021-11 Yes [id number] TAKE 1 [facility] 20 mg 1-01 TABLET BY [facility] of tablet 00:00: MOUTH TWICE Medical DAILY Branch famotidine 2021-11 Yes [id number] TAKE 1 [facility] 20 mg 1-01 TABLET BY [facility] of tablet 00:00: MOUTH TWICE Medical DAILY Branch famotidine 2021-11 Yes [id number] TAKE 1 [facility] 20 mg 1-01 TABLET BY [facility] of tablet 00:00: MOUTH 00 TWICE Medical DAILY Branch famotidine 2021-11 Yes [id number] TAKE 1 [facility] 20 mg 1-01 TABLET BY [facility] of tablet 00:00: MOUTH 00 TWICE Medical DAILY Branch famotidine 2021-11 Yes [id number] TAKE 1 [facility] 20 mg 1-01 TABLET BY [facility] of tablet 00:00: MOUTH 00 TWICE Medical DAILY Branch famotidine 2021-11 Yes [id number] TAKE 1 [facility] 20 mg 1-01 TABLET BY [facility] of tablet 00:00: MOUTH 00 TWICE Medical DAILY Branch famotidine 2021-11 Yes [id number] TAKE 1 [facility] 20 mg 1-01 TABLET BY [facility] of tablet 00:00: MOUTH 00 TWICE Medical DAILY Branch famotidine 2021-11 Yes [id number] TAKE 1 [facility] 20 mg 1-01 TABLET BY [facility] of tablet 00:00: MOUTH 00 TWICE Medical DAILY Branch famotidine 2021-11 Yes [id number] TAKE 1 [facility] 20 mg 1-01 TABLET BY [facility] of tablet 00:00: MOUTH 00 TWICE Medical DAILY Branch famotidine 2021-11 2023- No [id number] TAKE 1 [facility] 20 mg 1-01 02-15 TABLET BY [facility] of tablet 00:00: 00:00 MOUTH [place] 00 :00 TWICE Medical DAILY Branch triamcinolo 2021-11- No [id number] 20mg [facility] ne 0- 10- [id number] ity of acetonide 00:15: 23:24 [place] (KENALOG) 00 :00 Medical injection Branch 20 mg triamcinolo 2021-11- No [id number] 20mg 20 mg, [facility] ne 0-27 - [id number] Intr[facility] ity of acetonide 00:15: 23:24 [place], [place]CE, [place] (KENALOG[place] 00 :00 1 dose, On Medi stan injection Wed Branch 20 mg 09/08/22 at 1915, Routine triamcinolo 2021-11- No [id number] 20mg [facility] ne 0-09 09- [id number] ity of acetonide 00:15: 23:24 [place] (KENALOG) 00 :00 Medical injection Branch 20 mg triamcinolo 2021-11- No [id number] 20mg 20 mg, [facility] ne 0-09 09- [id number] [facility] ity of acetonide 00:15: 23:24 [place], [place]CE, [place] (KENALOG) 00 :00 1 dose, On Medi stan injection Wed Branch 20 mg 09/08/22 at 1915, Routine triamcinolo 2021-11- No [id number] 20mg [facility] ne 0-09 09- [id number] ity of acetonide 00:15: 23:24 [place] (KENALOG) 00 :00 Medical injection Branch 20 mg triamcinolo 2021-11- No [id number] 20mg 20 mg, [facility] ne 0 10- [id number] [facility] ity of acetonide 00:15: 23:24 [place], [place]CE, [place] (KENALOG) 00 :00 1 dose, On Medi stan injection Wed Branch 20 mg 09/08/22 at 1915, Routine triamcinolo 2021-11- No [id number] 20mg [facility] ne 0-27 - [id number] ity of acetonide 00:15: 23:24 [place] (KENALOG) 00 :00 Medical injection Branch 20 mg triamcinolo 2021-11- No [id number] 20mg 20 mg, [facility] ne 0-27 - [id number] [facility] ity of acetonide 00:15: 23:24 lar, [place]CE, [place] (KENALOG) 00 :00 1 dose, On Medi stan injection Wed Branch 20 mg 09/08/22 at 1915, Routine ibuprofen 2021-11- No 600mg 600 mg, Uni vers (IBU) 0-25 10-25 Oral, ity of tablet 600 05:00: 05:00 ONCE, 1 [place] [facility] mg 00 :00 dose, On Medical Tue Branch 09/07/22 at 0000, [place] cefpodoxime 2021-11- No [id number] 200mg Take 1 [facility] 200 mg 0-25 11-02 tablet by ity of tablet 00:00: 04:59 mouth in [place] 00 :00 the [facility] and 1 tablet in the evening. Do all this for 7 days. cefpodoxime 2021-11- No [id number] 200mg Take 1 [facility] 200 mg 0-25 11- tablet by ity of tablet 00:00: 04:59 mouth in [place] 00 :00 the [facility] and 1 tablet in the evening. Do all this for 7 days. cefpodoxime 2021-11- No [id number] 200mg Take 1 [facility] 200 mg 0-25 11-02 tablet by ity of tablet 00:00: 04:59 mouth in [place] 00 :00 the [facility] and 1 tablet in the evening. Do all this for 7 days. cefpodoxime 2021-11- No [id number] 200mg Take 1 [facility] 200 mg 0-25 11-02 tablet by ity of tablet 00:00: 04:59 mouth in [place] 00 :00 the [facility] and 1 tablet in the evening. Do all this for 7 days. cefpodoxime 2021-11- No [id number] 200mg Take 1 [facility] 200 mg 0-25 11-02 tablet by ity of tablet 00:00: 04:59 mouth in [place] 00 :00 the [facility] and 1 tablet in the evening. Do all this for 7 days. cefpodoxime 2021-11- No [id number] 200mg Take 1 [facility] 200 mg 0-25 11-02 tablet by ity of tablet 00:00: 04:59 mouth in [place] 00 :00 the Medical morning Branch and 1 tablet in the evening. Do all this for 7 days. cefpodoxime 2021-11- No [id number] 200mg Take 1 [facility] 200 mg 0-25 - tablet by ity of tablet 00:00: 04:59 mouth in [place] 00 :00 the Medical morning Branch and 1 tablet in the evening. Do all this for 7 days. cefpodoxime 2021-11- No [id number] 200mg Take 1 [facility] 200 mg 0-25 - tablet by ity of tablet 00:00: 04:59 mouth in [place] 00 :00 the Medical morning Branch and 1 tablet in the evening. Do all this for 7 days. ivabradine 2021-11 Yes [id number] 7.5mg Take 1 [facility] (CORLANOR) 0-19 tablet by ity of 7.5 mg 00:00: mouth in [place] tablet 00 the Medical morning Branch and 1 tablet in the evening. ivabradine 2021-11 Yes [id number] 7.5mg Take 1 [facility] (CORLANOR) 0-19 tablet by ity of 7.5 mg 00:00: mouth in [place] tablet 00 the Medical morning Branch and 1 tablet in the evening. ivabradine 2021-11 Yes [id number] 7.5mg Take 1 [facility] (CORLANOR) 0-19 tablet by ity of 7.5 mg 00:00: mouth in [place] tablet 00 the Medical morning Branch and 1 tablet in the evening. ivabradine 2021-11 Yes [id number] 7.5mg Take 1 [facility] (CORLANOR) 0-19 tablet by ity of 7.5 mg 00:00: mouth in [place] tablet 00 the Medical morning Branch and 1 tablet in the evening. ivabradine 2021-11 Yes [id number] 7.5mg Take 1 [facility] (CORLANOR) 0-19 tablet by ity of 7.5 mg 00:00: mouth in [place] tablet 00 the Medical morning Branch and 1 tablet in the evening. ivabradine 2021-11 Yes [id number] 7.5mg Take 1 [facility] (CORLANOR) 0-19 tablet by ity of 7.5 mg 00:00: mouth in [place] tablet 00 the Medical morning Branch and 1 tablet in the evening. ivabradine 2021-11 Yes [id number] 7.5mg Take 1 [facility] (CORLANOR) 0-19 tablet by ity of 7.5 mg 00:00: mouth in [place] tablet 00 the Medical morning Branch and 1 tablet in the evening. ivabradine 2021-11 Yes [id number] 7.5mg Take 1 [facility] (CORLANOR) 0-19 tablet by ity of 7.5 mg 00:00: mouth in [place] tablet 00 the Medical morning Branch and 1 tablet in the evening. ivabradine 2021-11 Yes [id number] 7.5mg Take 1 [facility] (CORLANOR) 0-19 tablet by ity of 7.5 mg 00:00: mouth in [place] tablet 00 the Medical morning Branch and 1 tablet in the evening. ivabradine 2021-11 Yes [id number] 7.5mg Take 1 [facility] (CORLANOR) 0-19 tablet by ity of 7.5 mg 00:00: mouth in [place] tablet 00 the Medical morning Branch and 1 tablet in the evening. ivabradine 2021-11 Yes [id number] 7.5mg Take 1 [facility] (CORLANOR) 0-19 tablet by ity of 7.5 mg 00:00: mouth in [place] tablet 00 the Medical morning Branch and 1 tablet in the evening. ivabradine 2021-11 Yes [id number] 7.5mg Take 1 [facility] (CORLANOR) 0-19 tablet by ity of 7.5 mg 00:00: mouth in [place] tablet 00 the Medical morning Branch and 1 tablet in the evening. ivabradine 2021-11 Yes [id number] 7.5mg Take 1 [facility] (CORLANOR) 0-19 tablet by ity of 7.5 mg 00:00: mouth in [place] tablet 00 the Medical morning Branch and 1 tablet in the evening. ivabradine 2021-11 Yes [id number] 7.5mg Take 1 [facility] (CORLANOR) 0-19 tablet by ity of 7.5 mg 00:00: mouth in [place] tablet 00 the Medical morning Branch and 1 tablet in the evening. ivabradine 2021-11 Yes [id number] 7.5mg Take 1 [facility] (CORLANOR) 0-19 tablet by ity of 7.5 mg 00:00: mouth in [place] tablet 00 the Medical morning Branch and 1 tablet in the evening. ivabradine 2021-11 Yes [id number] 7.5mg Take 1 [facility] (CORLANOR) 0-19 tablet by ity of 7.5 mg 00:00: mouth in [place] tablet 00 the Medical morning Branch and 1 tablet in the evening. ivabradine 2021-11 Yes [id number] 7.5mg Take 1 [facility] (CORLANOR) 0-19 tablet by ity of 7.5 mg 00:00: mouth in [place] tablet 00 the Medical morning Branch and 1 tablet in the evening. ivabradine 2021-11 Yes [id number] 7.5mg Take 1 [facility] (CORLANOR) 0-19 tablet by ity of 7.5 mg 00:00: mouth in [place] tablet 00 the Medical morning Branch and 1 tablet in the evening. ivabradine 2021-11 Yes [id number] 7.5mg Take 1 [facility] (CORLANOR) 0-19 tablet by ity of 7.5 mg 00:00: mouth in [place] tablet 00 the Medical morning Branch and 1 tablet in the evening. ivabradine 2021-11 Yes [id number] 7.5mg Take 1 [facility] (CORLANOR) 0-19 tablet by ity of 7.5 mg 00:00: mouth in [place] tablet 00 the Medical morning Branch and 1 tablet in the evening. ivabradine 2021-11 Yes [id number] 7.5mg Take 1 [facility] (CORLANOR) 0-19 tablet by ity of 7.5 mg 00:00: mouth in [place] tablet 00 the Medical morning Branch and 1 tablet in the evening. ivabradine 2021-11 Yes [id number] 7.5mg Take 1 [facility] (CORLANOR) 0-19 tablet by ity of 7.5 mg 00:00: mouth in [place] tablet 00 the Medical morning Branch and 1 tablet in the evening. ivabradine 2021-11 Yes [id number] 7.5mg Take 1 [facility] (CORLANOR) 0-19 tablet by ity of 7.5 mg 00:00: mouth in [place] tablet 00 the Medical morning Branch and 1 tablet in the evening. ivabradine 2021-11 Yes [id number] 7.5mg Take 1 [facility] (CORLANOR) 0-19 tablet by ity of 7.5 mg 00:00: mouth in [place] tablet 00 the Medical morning Branch and 1 tablet in the evening. ivabradine 2021-11 Yes [id number] 7.5mg Take 1 [facility] (CORLANOR) 0-19 tablet by ity of 7.5 mg 00:00: mouth in [place] tablet 00 the Medical morning Branch and 1 tablet in the evening. ivabradine 2021-11 Yes [id number] 7.5mg Take 1 [facility] (CORLANOR) 0-19 tablet by ity of 7.5 mg 00:00: mouth in [place] tablet 00 the Medical morning Branch and 1 tablet in the evening. ivabradine 2021-11 Yes [id number] 7.5mg Take 1 [facility] (CORLANOR) 0-19 tablet by ity of 7.5 mg 00:00: mouth in [place] tablet 00 the Medical morning Branch and 1 tablet in the evening. ivabradine 2021-11 Yes [id number] 7.5mg Take 1 [facility] (CORLANOR) 0-19 tablet by ity of 7.5 mg 00:00: mouth in [place] tablet 00 the Medical morning Branch and 1 tablet in the evening. ivabradine 2021-11 Yes [id number] 7.5mg Take 1 [facility] (CORLANOR) 0-19 tablet by ity of 7.5 mg 00:00: mouth in [place] tablet 00 the Medical morning Branch and 1 tablet in the evening. ivabradine 2021-11 Yes [id number] 7.5mg Take 1 [facility] (CORLANOR) 0-19 tablet by ity of 7.5 mg 00:00: mouth in [place] tablet 00 the Medical morning Branch and 1 tablet in the evening. ivabradine 2021-11 Yes [id number] 7.5mg Take 1 [facility] (CORLANOR) 0-19 tablet by ity of 7.5 mg 00:00: mouth in [place] tablet 00 the Medical morning Branch and 1 tablet in the evening. ivabradine 2021-11 Yes [id number] 7.5mg Take 1 [facility] (CORLANOR) 0-19 tablet by ity of 7.5 mg 00:00: mouth in [place] tablet 00 the Medical morning Branch and 1 tablet in the evening. ivabradine 2021-11 Yes [id number] 7.5mg Take 1 [facility] (CORLANOR) 0-19 tablet by ity of 7.5 mg 00:00: mouth in [place] tablet 00 the Medical morning Branch and 1 tablet in the evening. ivabradine 2021-11 Yes [id number] 7.5mg Take 1 [facility] (CORLANOR) 0-19 tablet by ity of 7.5 mg 00:00: mouth in [place] tablet 00 the Medical morning Branch and 1 tablet in the evening. ivabradine 2021-11 Yes [id number] 7.5mg Take 1 [facility] (CORLANOR) 0-19 tablet by ity of 7.5 mg 00:00: mouth in [place] tablet 00 the Medical morning Branch and 1 tablet in the evening. ivabradine 2021-11 Yes [id number] 7.5mg Take 1 [facility] (CORLANOR) 0-19 tablet by ity of 7.5 mg 00:00: mouth in [place] tablet 00 the Medical morning Branch and 1 tablet in the evening. ivabradine 2021-11 Yes [id number] 7.5mg Take 1 [facility] (CORLANOR) 0-19 tablet by ity of 7.5 mg 00:00: mouth in [place] tablet 00 the Medical morning Branch and 1 tablet in the evening. ivabradine 2021-11 Yes [id number] 7.5mg Take 1 [facility] (CORLANOR) 0-19 tablet by ity of 7.5 mg 00:00: mouth in [place] tablet 00 the Medical morning Branch and 1 tablet in the evening. ivabradine 2021-11 Yes [id number] 7.5mg Take 1 [facility] (CORLANOR) 0-19 tablet by ity of 7.5 mg 00:00: mouth in [place] tablet 00 the Medical morning Branch and 1 tablet in the evening. ivabradine 2021-11 Yes [id number] 7.5mg Take 1 [facility] (CORLANOR) 0-19 tablet by ity of 7.5 mg 00:00: mouth in [place] tablet 00 the Medical morning Branch and 1 tablet in the evening. ivabradine 2021-11 Yes [id number] 7.5mg Take 1 [facility] (CORLANOR) 0-19 tablet by ity of 7.5 mg 00:00: mouth in [place] tablet 00 the Medical morning Branch and 1 tablet in the evening. ivabradine 2021-11 Yes [id number] 7.5mg Take 1 [facility] (CORLANOR) 0-19 tablet by ity of 7.5 mg 00:00: mouth in [place] tablet 00 the Medical morning Branch and 1 tablet in the evening. ivabradine 2021-11 Yes [id number] 7.5mg Take 1 [facility] (CORLANOR) 0-19 tablet by ity of 7.5 mg 00:00: mouth in [place] tablet 00 the Medical morning Branch and 1 tablet in the evening. ivabradine 2021-11 Yes [id number] 7.5mg Take 1 [facility] (CORLANOR) 0-19 tablet by ity of 7.5 mg 00:00: mouth in [place] tablet 00 the Medical morning Branch and 1 tablet in the evening. ivabradine 2021-11 Yes [id number] 7.5mg Take 1 [facility] (CORLANOR) 0-19 tablet by ity of 7.5 mg 00:00: mouth in [place] tablet 00 the Medical morning Branch and 1 tablet in the evening. ivabradine 2021-11 Yes [id number] 7.5mg Take 1 [facility] (CORLANOR) 0-19 tablet by ity of 7.5 mg 00:00: mouth in [place] tablet 00 the Medical morning Branch and 1 tablet in the evening. ivabradine 2021-11 Yes [id number] 7.5mg Take 1 [facility] (CORLANOR) 0-19 tablet by ity of 7.5 mg 00:00: mouth in [place] tablet 00 the Medical morning Branch and 1 tablet in the evening. ivabradine 2021-11 Yes [id number] 7.5mg Take 1 [facility] (CORLANOR) 0-19 tablet by ity of 7.5 mg 00:00: mouth in [place] tablet 00 the Medical morning Branch and 1 tablet in the evening. ivabradine 2021-11 Yes [id number] 7.5mg Take 1 [facility] (CORLANOR) 0-19 tablet by ity of 7.5 mg 00:00: mouth in [place] tablet 00 the Medical morning Branch and 1 tablet in the evening. ivabradine 2021-11 Yes [id number] 7.5mg Take 1 [facility] (CORLANOR) 0-19 tablet by ity of 7.5 mg 00:00: mouth in [place] tablet 00 the Medical morning Branch and 1 tablet in the evening. ivabradine 2021-11 Yes [id number] 7.5mg Take 1 [facility] (CORLANOR) 0-19 tablet by ity of 7.5 mg 00:00: mouth in [place] tablet 00 the Medical morning Branch and 1 tablet in the evening. ivabradine 2021-11 Yes [id number] 7.5mg Take 1 [facility] (CORLANOR) 0-19 tablet by ity of 7.5 mg 00:00: mouth in [place] tablet 00 the Medical morning Branch and 1 tablet in the evening. ivabradine 2021-11 Yes [id number] 7.5mg Take 1 [facility] (CORLANOR) 0-19 tablet by ity of 7.5 mg 00:00: mouth in [place] tablet 00 the Medical morning Branch and 1 tablet in the evening. ivabradine 2021-11 Yes [id number] 7.5mg Take 1 [facility] (CORLANOR) 0-19 tablet by ity of 7.5 mg 00:00: mouth in [place] tablet 00 the Medical morning Branch and 1 tablet in the evening. ivabradine 2021-11 Yes [id number] 7.5mg Take 1 [facility] (CORLANOR) 0-19 tablet by ity of 7.5 mg 00:00: mouth in [place] tablet 00 the Medical morning Branch and 1 tablet in the evening. ivabradine 2021-11 Yes [id number] 7.5mg Take 1 [facility] (CORLANOR) 0-19 tablet by ity of 7.5 mg 00:00: mouth in [place] tablet 00 the Medical morning Branch and 1 tablet in the evening. ivabradine 2021-11 Yes [id number] 7.5mg Take 1 [facility] (CORLANOR) 0-19 tablet by ity of 7.5 mg 00:00: mouth in [place] tablet 00 the Medical morning Branch and 1 tablet in the evening. ivabradine 2021-11 Yes [id number] 7.5mg Take 1 [facility] (CORLANOR) 0-19 tablet by ity of 7.5 mg 00:00: mouth in [place] tablet 00 the Medical morning Branch and 1 tablet in the evening. ivabradine 2021-11 Yes [id number] 7.5mg Take 1 [facility] (CORLANOR) 0-19 tablet by ity of 7.5 mg 00:00: mouth in [place] tablet 00 the Medical morning Branch and 1 tablet in the evening. ivabradine 2021-11 Yes [id number] 7.5mg Take 1 [facility] (CORLANOR) 0-19 tablet by ity of 7.5 mg 00:00: mouth in [place] tablet 00 the Medical morning Branch and 1 tablet in the evening. ivabradine 2021-11 Yes [id number] 7.5mg Take 1 [facility] (CORLANOR) 0-19 tablet by ity of 7.5 mg 00:00: mouth in [place] tablet 00 the Medical morning Branch and 1 tablet in the evening. ivabradine 2021-11 Yes [id number] 7.5mg Take 1 [facility] (CORLANOR) 0-19 tablet by ity of 7.5 mg 00:00: mouth in [place] tablet 00 the Medical morning Branch and 1 tablet in the evening. ivabradine 2021-11 Yes [id number] 7.5mg Take 1 [facility] (CORLANOR) 0-19 tablet by ity of 7.5 mg 00:00: mouth in [place] tablet 00 the Medical morning Branch and 1 tablet in the evening. ivabradine 2021-11 Yes [id number] 7.5mg Take 1 [facility] (CORLANOR) 0-19 tablet by ity of 7.5 mg 00:00: mouth in [place] tablet 00 the Medical morning Branch and 1 tablet in the evening. ivabradine 2021-11 Yes [id number] 7.5mg Take 1 [facility] (CORLANOR) 0-19 tablet by ity of 7.5 mg 00:00: mouth in [place] tablet 00 the Medical morning Branch and 1 tablet in the evening. ivabradine 2021-11 Yes [id number] 7.5mg Take 1 [facility] (CORLANOR) 0-19 tablet by ity of 7.5 mg 00:00: mouth in [place] tablet 00 the Medical morning Branch and 1 tablet in the evening. ivabradine 2021-11 Yes [id number] 7.5mg Take 1 [facility] (CORLANOR) 0-19 tablet by ity of 7.5 mg 00:00: mouth in [place] tablet 00 the Medical morning Branch and 1 tablet in the evening. ivabradine 2021-11 Yes [id number] 7.5mg Take 1 [facility] (CORLANOR) 0-19 tablet by ity of 7.5 mg 00:00: mouth in [place] tablet 00 the Medical morning Branch and 1 tablet in the evening. ivabradine 2021-11 Yes [id number] 7.5mg Take 1 [facility] (CORLANOR) 0-19 tablet by ity of 7.5 mg 00:00: mouth in [place] tablet 00 the Medical morning Branch and 1 tablet in the evening. ivabradine 2021-11 Yes [id number] 7.5mg Take 1 [facility] (CORLANOR) 0-19 tablet by ity of 7.5 mg 00:00: mouth in [place] tablet 00 the Medical morning Branch and 1 tablet in the evening. ivabradine 2021-11 Yes [id number] 7.5mg Take 1 [facility] (CORLANOR) 0-19 tablet by ity of 7.5 mg 00:00: mouth in [place] tablet 00 the Medical morning Branch and 1 tablet in the evening. ivabradine 2021-11 Yes [id number] 7.5mg Take 1 [facility] (CORLANOR) 0-19 tablet by ity of 7.5 mg 00:00: mouth in [place] tablet 00 the Medical morning Branch and 1 tablet in the evening. ivabradine 2021-11 Yes [id number] 7.5mg Take 1 [facility] (CORLANOR) 0-19 tablet by ity of 7.5 mg 00:00: mouth in [place] tablet 00 the Medical morning Branch and 1 tablet in the evening. ivabradine 2021-11 Yes [id number] 7.5mg Take 1 [facility] (CORLANOR) 0-19 tablet by ity of 7.5 mg 00:00: mouth in [place] tablet 00 the Medical morning Branch and 1 tablet in the evening. ivabradine 2021-11 Yes [id number] 7.5mg Take 1 [facility] (CORLANOR) 0-19 tablet by ity of 7.5 mg 00:00: mouth in [place] tablet 00 the Medical morning Branch and 1 tablet in the evening. ivabradine 2021-11 Yes [id number] 7.5mg Take 1 [facility] (CORLANOR) 0-19 tablet by ity of 7.5 mg 00:00: mouth in [place] tablet 00 the Medical morning Branch and 1 tablet in the evening. ivabradine 2021-11 Yes [id number] 7.5mg Take 1 [facility] (CORLANOR) 0-19 tablet by ity of 7.5 mg 00:00: mouth in [place] tablet 00 the Medical morning Branch and 1 tablet in the evening. ivabradine 2021-11 Yes [id number] 7.5mg Take 1 [facility] (CORLANOR) 0-19 tablet by ity of 7.5 mg 00:00: mouth in [place] tablet 00 the Medical morning Branch and 1 tablet in the evening. ivabradine 2021-11 Yes [id number] 7.5mg Take 1 [facility] (CORLANOR) 0-19 tablet by ity of 7.5 mg 00:00: mouth in [place] tablet 00 the Medical morning Branch and 1 tablet in the evening. ivabradine 2021-11 Yes [id number] 7.5mg Take 1 [facility] (CORLANOR) 0-19 tablet by ity of 7.5 mg 00:00: mouth in [place] tablet 00 the Medical morning Branch and 1 tablet in the evening. ivabradine 2021-11 Yes [id number] 7.5mg Take 1 [facility] (CORLANOR) 0-19 tablet by ity of 7.5 mg 00:00: mouth in [place] tablet 00 the Medical morning Branch and 1 tablet in the evening. ivabradine 2021-11 Yes [id number] 7.5mg Take 1 [facility] (CORLANOR) 0-19 tablet by ity of 7.5 mg 00:00: mouth in [place] tablet 00 the Medical morning Branch and 1 tablet in the evening. ivabradine 2021-11 Yes [id number] 7.5mg Take 1 [facility] (CORLANOR) 0-19 tablet by ity of 7.5 mg 00:00: mouth in [place] tablet 00 the Medical morning Branch and 1 tablet in the evening. ivabradine 2021-11 Yes [id number] 7.5mg Take 1 [facility] (CORLANOR) 0-19 tablet by ity of 7.5 mg 00:00: mouth in [place] tablet 00 the Medical morning Branch and 1 tablet in the evening. ivabradine 2021-11 Yes [id number] 7.5mg Take 1 [facility] (CORLANOR) 0-19 tablet by ity of 7.5 mg 00:00: mouth in [place] tablet 00 the Medical morning Branch and 1 tablet in the evening. ivabradine 2021-11 Yes [id number] 7.5mg Take 1 [facility] (CORLANOR) 0-19 tablet by ity of 7.5 mg 00:00: mouth in [place] tablet 00 the Medical morning Branch and 1 tablet in the evening. ivabradine 2021-11 Yes [id number] 7.5mg Take 1 [facility] (CORLANOR) 0-19 tablet by ity of 7.5 mg 00:00: mouth in [place] tablet 00 the Medical morning Branch and 1 tablet in the evening. ivabradine 2021-11 Yes [id number] 7.5mg Take 1 [facility] (CORLANOR) 0-19 tablet by ity of 7.5 mg 00:00: mouth in [place] tablet 00 the Medical morning Branch and 1 tablet in the evening. ivabradine 2021-11 Yes [id number] 7.5mg Take 1 [facility] (CORLANOR) 0-19 tablet by ity of 7.5 mg 00:00: mouth in [place] tablet 00 the Medical morning Branch and 1 tablet in the evening. ivabradine 2021-11 Yes [id number] 7.5mg Take 1 [facility] (CORLANOR) 0-19 tablet by ity of 7.5 mg 00:00: mouth in [place] tablet 00 the Medical morning Branch and 1 tablet in the evening. ivabradine 2021-11 Yes [id number] 7.5mg Take 1 [facility] (CORLANOR) 0-19 tablet by ity of 7.5 mg 00:00: mouth in [place] tablet 00 the Medical morning Branch and 1 tablet in the evening. ivabradine 2021-11 Yes [id number] 7.5mg Take 1 [facility] ([facility]) 0-19 tablet by ity of 7.5 mg 00:00: mouth in [place] tablet 00 the Medical morning Branch and 1 tablet in the evening. Insulin 2021-11 Yes INJECT 5 [facility] 0-14 UNITS ity of ([place] 00:[place] USLY ONCE Medica l U-100 DAILY Branch INSULIN) 100 unit/mL (3 mL) injection Insulin 2021-11 Yes INJECT 5 [facility] [place] 0-14 UNITS ity of ([place] 00:[place]: [place] USLY ONCE Medica l U-100 DAILY Branch INSULIN) 100 unit/mL (3 mL) injection Insulin 2021-11 Yes INJECT 5 [facility] [place] 0-14 UNITS ity of ([place] 00:00: [place] 00 USLY ONCE Medica l U-100 DAILY Branch INSULIN) 100 unit/mL (3 mL) injection Insulin 2021-11 Yes INJECT 5 [facility] [place] 0-14 UNITS ity of ([place] 00:00: [place] 00 USLY ONCE Medica l U-100 DAILY Branch INSULIN) 100 unit/mL (3 mL) injection Insulin 2021-11 Yes INJECT 5 [facility] [place] 0-14 UNITS ity of ([place] 00:00: [place] 00 USLY ONCE Medica l U-100 DAILY Branch INSULIN) 100 unit/mL (3 mL) injection Insulin 2021-11 Yes INJECT 5 [facility] [place] 0-14 UNITS ity of ([place] 00:00: [place] 00 USLY ONCE Medica l U-100 DAILY Branch INSULIN) 100 unit/mL (3 mL) injection Insulin 2021-11 Yes INJECT 5 [facility] [place] 0-14 UNITS ity of ([place] 00:00: [place] 00 USLY ONCE Medica l U-100 DAILY Branch INSULIN) 100 unit/mL (3 mL) injection Insulin 2021-11 Yes INJECT 5 [facility] [place] 0-14 UNITS ity of ([place] 00:00: [place] 00 USLY ONCE Medica l U-100 DAILY Branch INSULIN) 100 unit/mL (3 mL) injection Insulin 2021-11 Yes INJECT 5 [facility] [place] 0-14 UNITS ity of ([place] 00:00: [place] 00 USLY ONCE Medica l U-100 DAILY Branch INSULIN) 100 unit/mL (3 mL) injection LANTUS 2021-11 Yes INJECT 5 Jose Rafael SOLOSTAR 0-14 UNITS [facility] 100 UNIT/ML 00:00: SUBCUTANEO of SOPN 00 USLY ONCE Medicin DAILY e insulin 2021-11 Yes [id number] Inject 5 U nivers glargine-yf 0-13 units ity of gn 100 00:00: daily [place] unit/mL (3 00 Medical mL) InPn Branch insulin 2021-11 Yes [id number] Inject 5 U nivers glargine-yf 0-13 units ity of gn 100 00:00: daily [place] unit/mL (3 00 Medical mL) InPn Branch insulin 2021-11 Yes [id number] Inject 5 [facility]ivers glargine-yf 0-13 units ity of gn 100 00:00: daily [place] unit/mL (3 00 Medical mL) InPn Branch insulin 2021-11 Yes [id number] Inject 5 U [facility]ivers glargine-yf 0-13 units ity of gn 100 00:00: daily [place] unit/mL (3 00 Medical mL) InPn Branch insulin 2021-11 Yes [id number] Inject 5 [facility] glargine-yf 0-13 units ity of gn 100 00:00: daily [place] unit/mL (3 00 Medical mL) InPn Branch insulin 2021-11 Yes [id number] Inject 5 U [facility]ivers glargine-yf 0-13 units ity of gn 100 00:00: daily [place] unit/mL (3 00 Medical mL) InPn Branch insulin 2021-11 Yes [id number] Inject 5 U nivers glargine-yf 0-13 units ity of gn 100 00:00: daily [place] unit/mL (3 00 Medical mL) InPn Branch insulin 2021-11 Yes [id number] Inject 5 U nivers glargine-yf 0-13 units ity of gn 100 00:00: daily [place] unit/mL (3 00 Medical mL) InPn Branch insulin 2021-11 Yes [id number] Inject 5 U nivers glargine-yf 0-13 units ity of gn 100 00:00: daily [place] unit/mL (3 00 Medical mL) InPn Branch insulin 2021-11 Yes [id number] Inject 5 U nivers glargine-yf 0-13 units ity of gn 100 00:00: daily [place] unit/mL (3 00 Medical mL) InPn Branch insulin 2021-11 Yes [id number] Inject 5 U nivers glargine-yf 0-13 units ity of gn 100 00:00: daily [place] unit/mL (3 00 Medical mL) InPn Branch insulin 2021-11 Yes [id number] Inject 5 U nivers glargine-yf 0-13 units ity of gn 100 00:00: daily [place] unit/mL (3 00 Medical mL) InPn Branch insulin 2021-11 Yes [id number] Inject 5 U nivers glargine-yf 0-13 units ity of gn 100 00:00: daily [place] unit/mL (3 00 Medical mL) InPn Branch insulin 2021-11 Yes [id number] Inject 5 U nivers glargine-yf 0-13 units ity of gn 100 00:00: daily [place] unit/mL (3 00 Medical mL) InPn Branch insulin 2021-11 Yes [id number] Inject 5 U nivers glargine-yf 0-13 units ity of gn 100 00:00: daily [place] unit/mL (3 00 Medical mL) InPn Branch insulin 2021-11 Yes [id number] Inject 5 U nivers glargine-yf 0-13 units ity of gn 100 00:00: daily [place] unit/mL (3 00 Medical mL) InPn Branch insulin 2021-11 Yes [id number] Inject 5 U nivers glargine-yf 0-13 units ity of gn 100 00:00: daily [place] unit/mL (3 00 Medical mL) InPn Branch insulin 2021-11 Yes [id number] Inject 5 U nivers glargine-yf 0-13 units ity of gn 100 00:00: daily [place] unit/mL (3 00 Medical mL) InPn Branch insulin 2021-11 Yes [id number] Inject 5 U nivers glargine-yf 0-13 units ity of gn 100 00:00: daily [place] unit/mL (3 00 Medical mL) InPn Branch insulin 2021-11 Yes [id number] Inject 5 U nivers glargine-yf 0-13 units ity of gn 100 00:00: daily [place] unit/mL (3 00 Medical mL) InPn Branch insulin 2021-11 Yes [id number] Inject 5 U nivers glargine-yf 0-13 units ity of gn 100 00:00: daily [place] unit/mL (3 00 Medical mL) InPn Branch insulin 2021-11 Yes [id number] Inject 5 U nivers glargine-yf 0-13 units ity of gn 100 00:00: daily [place] unit/mL (3 00 Medical mL) InPn Branch insulin 2021-11 Yes [id number] Inject 5 U nivers glargine-yf 0-13 units ity of gn 100 00:00: daily [place] unit/mL (3 00 Medical mL) InPn Branch insulin 2021-11 Yes [id number] Inject 5 U nivers glargine-yf 0-13 units ity of gn 100 00:00: daily [place] unit/mL (3 00 Medical mL) InPn Branch insulin 2021-11 Yes [id number] Inject 5 U nivers glargine-yf 0-13 units ity of gn 100 00:00: daily [place] unit/mL (3 00 Medical mL) InPn Branch insulin 2021-11 Yes [id number] Inject 5 U nivers glargine-yf 0-13 units ity of gn 100 00:00: daily [place] unit/mL (3 00 Medical mL) InPn Branch insulin 2021-11 Yes [id number] Inject 5 U nivers glargine-yf 0-13 units ity of gn 100 00:00: daily [place] unit/mL (3 00 Medical mL) InPn Branch insulin 2021-11 Yes [id number] Inject 5 U nivers glargine-yf 0-13 units ity of gn 100 00:00: daily [place] unit/mL (3 00 Medical mL) InPn Branch insulin 2021-11 Yes [id number] Inject 5 [facility] glargine-yf 0-13 units ity of gn 100 00:00: daily [place] unit/mL (3 00 Medical mL) InPn Branch insulin 2021-11 Yes [id number] Inject 5 [facility] nivers glargine-yf 0-13 units ity of gn 100 00:00: daily [place] unit/mL (3 00 Medical mL) InPn Branch insulin 2021-11 Yes [id number] Inject 5 U nivers glargine-yf 0-13 units ity of gn 100 00:00: daily [place] unit/mL (3 00 Medical mL) InPn Branch insulin 2021-11 Yes [id number] Inject 5 [facility] nivers glargine-yf 0-13 units ity of gn 100 00:00: daily [place] unit/mL (3 00 Medical mL) InPn Branch insulin 2021-11 Yes [id number] Inject 5 [facility] nivers glargine-yf 0-13 units ity of gn 100 00:00: daily [place] unit/mL (3 00 Medical mL) In Branch insulin 2021-11 Yes [id number] Inject 5 [facility] nivers glargine-yf 0-13 units ity of gn 100 00:00: daily [place] unit/mL (3 00 Medical mL) InPn Branch insulin 2021-11 Yes [id number] Inject 5 [facility] nivers glargine-yf 0-13 units ity of gn 100 00:00: daily [place] unit/mL (3 00 Medical mL) InPn Branch insulin 2021-11 Yes [id number] Inject 5 [facility] glargine-yf 0-13 units ity of gn 100 00:00: daily [place] unit/mL (3 00 Medical mL) InPn Branch insulin 2021-11 Yes [id number] Inject 5 [facility]ivers glargine-yf 0-13 units ity of gn 100 00:00: daily [place] unit/mL (3 00 Medical mL) InPn Branch insulin 2021-11 Yes [id number] Inject 5 [facility] glargine-yf 0-13 units ity of gn 100 00:00: daily [place] unit/mL (3 00 Medical mL) InPn Branch insulin 2021-11 Yes [id number] Inject 5 [facility] nivers glargine-yf 0-13 units ity of gn 100 00:00: daily [place] unit/mL (3 00 Medical mL) InPn Branch insulin 2021-11 Yes [id number] Inject 5 [facility] glargine-yf 0-13 units ity of gn 100 00:00: daily [place] unit/mL (3 00 Medical mL) InPn Branch insulin 2021-11 Yes [id number] Inject 5 [facility]ivers glargine-yf 0-13 units ity of gn 100 00:00: daily [place] unit/mL (3 00 Medical mL) InPn Branch insulin 2021-11 Yes [id number] Inject 5 U nivers glargine-yf 0-13 units ity of gn 100 00:00: daily [place] unit/mL (3 00 Medical mL) InPn Branch insulin 2021-11 Yes [id number] Inject 5 [facility] nivers glargine-yf 0-13 units ity of gn 100 00:00: daily [place] unit/mL (3 00 Medical mL) InPn Branch insulin 2021-11 Yes [id number] Inject 5 U nivers glargine-yf 0-13 units ity of gn 100 00:00: daily [place] unit/mL (3 00 Medical mL) InPn Branch insulin 2021-11 Yes [id number] Inject 5 [facility] nivers glargine-yf 0-13 units ity of gn 100 00:00: daily [place] unit/mL (3 00 Medical mL) InPn Branch insulin 2021-11 Yes [id number] Inject 5 U nivers glargine-yf 0-13 units ity of gn 100 00:00: daily [place] unit/mL (3 00 Medical mL) InPn Branch insulin 2021-11 Yes [id number] Inject 5 U nivers glargine-yf 0-13 units ity of gn 100 00:00: daily [place] unit/mL (3 00 Medical mL) InPn Branch insulin 2021-11 Yes [id number] Inject 5 U nivers glargine-yf 0-13 units ity of gn 100 00:00: daily [place] unit/mL (3 00 Medical mL) InPn Branch insulin 2021-11 Yes [id number] Inject 5 U nivers glargine-yf 0-13 units ity of gn 100 00:00: daily [place] unit/mL (3 00 Medical mL) InPn Branch insulin 2021-11 Yes [id number] Inject 5 U nivers glargine-yf 0-13 units ity of gn 100 00:00: daily [place] unit/mL (3 00 Medical mL) InPn Branch insulin 2021-11 Yes [id number] Inject 5 [facility] nivers glargine-yf 0-13 units ity of gn 100 00:00: daily [place] unit/mL (3 00 Medical mL) InPn Branch insulin 2021-11 Yes [id number] Inject 5 [facility] nivers glargine-yf 0-13 units ity of gn 100 00:00: daily [place] unit/mL (3 00 Medical mL) InPn Branch insulin 2021-11 Yes [id number] Inject 5 [facility] nivers glargine-yf 0-13 units ity of gn 100 00:00: daily [place] unit/mL (3 00 Medical mL) InPn Branch insulin 2021-11 Yes [id number] Inject 5 [facility] nivers glargine-yf 0-13 units ity of gn 100 00:00: daily [place] unit/mL (3 00 Medical mL) InPn Branch insulin 2021-11 Yes [id number] Inject 5 [facility] nivers glargine-yf 0-13 units ity of gn 100 00:00: daily [place] unit/mL (3 00 Medical mL) InPn Branch insulin 2021-11 Yes [id number] Inject 5 [facility]ivers glargine-yf 0-13 units ity of gn 100 00:00: daily [place] unit/mL (3 00 Medical mL) InPn Branch insulin 2021-11 Yes [id number] Inject 5 U nivers glargine-yf 0-13 units ity of gn 100 00:00: daily [place] unit/mL (3 00 Medical mL) InPn Branch insulin 2021-11 Yes [id number] Inject 5 U nivers glargine-yf 0-13 units ity of gn 100 00:00: daily [place] unit/mL (3 00 Medical mL) InPn Branch insulin 2021-11 Yes [id number] Inject 5 U nivers glargine-yf 0-13 units ity of gn 100 00:00: daily [place] unit/mL (3 00 Medical mL) InPn Branch insulin 2021-11 Yes [id number] Inject 5 [facility] nivers glargine-yf 0-13 units ity of gn 100 00:00: daily [place] unit/mL (3 00 Medical mL) InPn Branch insulin 2021-11 Yes [id number] Inject 5 U nivers glargine-yf 0-13 units ity of gn 100 00:00: daily [place] unit/mL (3 00 Medical mL) InPn Branch insulin 2021-11 Yes [id number] Inject 5 U nivers glargine-yf 0-13 units ity of gn 100 00:00: daily [place] unit/mL (3 00 Medical mL) InPn Branch insulin 2021-11 Yes [id number] Inject 5 U nivers glargine-yf 0-13 units ity of gn 100 00:00: daily [place] unit/mL (3 00 Medical mL) InPn Branch insulin 2021-11 Yes [id number] Inject 5 U nivers glargine-yf 0-13 units ity of gn 100 00:00: daily [place] unit/mL (3 00 Medical mL) InPn Branch insulin 2021-11 Yes [id number] Inject 5 U nivers glargine-yf 0-13 units ity of gn 100 00:00: daily [place] unit/mL (3 00 Medical mL) InPn Branch insulin 2021-11 Yes [id number] Inject 5 U nivers glargine-yf 0-13 units ity of gn 100 00:00: daily [place] unit/mL (3 00 Medical mL) InPn Branch insulin 2021-11 Yes [id number] Inject 5 U nivers glargine-yf 0-13 units ity of gn 100 00:00: daily [place] unit/mL (3 00 Medical mL) InPn Branch insulin 2021-11 Yes [id number] Inject 5 U nivers glargine-yf 0-13 units ity of gn 100 00:00: daily [place] unit/mL (3 00 Medical mL) InPn Branch insulin 2021-11 Yes [id number] Inject 5 U nivers glargine-yf 0-13 units ity of gn 100 00:00: daily [place] unit/mL (3 00 Medical mL) InPn Branch insulin 2021-11 Yes [id number] Inject 5 U nivers glargine-yf 0-13 units ity of gn 100 00:00: daily [place] unit/mL (3 00 Medical mL) InPn Branch insulin 2021-11 Yes [id number] Inject 5 U nivers glargine-yf 0-13 units ity of gn 100 00:00: daily [place] unit/mL (3 00 Medical mL) InPn Branch insulin 2021-11 Yes [id number] Inject 5 U nivers glargine-yf 0-13 units ity of gn 100 00:00: daily [place] unit/mL (3 00 Medical mL) InPn Branch insulin 2021-11 Yes [id number] Inject 5 U nivers glargine-yf 0-13 units ity of gn 100 00:00: daily [place] unit/mL (3 00 Medical mL) InPn Branch insulin 2021-11 Yes [id number] Inject 5 U nivers glargine-yf 0-13 units ity of gn 100 00:00: daily [place] unit/mL (3 00 Medical mL) InPn Branch insulin 2021-11 Yes [id number] Inject 5 U nivers glargine-yf 0-13 units ity of gn 100 00:00: daily [place] unit/mL (3 00 Medical mL) InPn Branch insulin 2021-11 Yes [id number] Inject 5 U nivers glargine-yf 0-13 units ity of gn 100 00:00: daily [place] unit/mL (3 00 Medical mL) InPn Branch insulin 2021-11 Yes [id number] Inject 5 U nivers glargine-yf 0-13 units ity of gn 100 00:00: daily [place] unit/mL (3 00 Medical mL) InPn Branch insulin 2021-11 Yes [id number] Inject 5 U nivers glargine-yf 0-13 units ity of gn 100 00:00: daily [place] unit/mL (3 00 Medical mL) InPn Branch insulin 2021-11 Yes [id number] Inject 5 U nivers glargine-yf 0-13 units ity of gn 100 00:00: daily [place] unit/mL (3 00 Medical mL) InPn Branch insulin 2021-11 Yes [id number] Inject 5 U nivers glargine-yf 0-13 units ity of gn 100 00:00: daily [place] unit/mL (3 00 Medical mL) InPn Branch insulin 2021-11 Yes [id number] Inject 5 U nivers glargine-yf 0-13 units ity of gn 100 00:00: daily [place] unit/mL (3 00 Medical mL) InPn Branch insulin 2021-11 Yes [id number] Inject 5 U nivers glargine-yf 0-13 units ity of gn 100 00:00: daily [place] unit/mL (3 00 Medical mL) InPn Branch insulin 2021-11 Yes [id number] Inject 5 U nivers glargine-yf 0-13 units ity of gn 100 00:00: daily [place] unit/mL (3 00 Medical mL) InPn Branch insulin 2021-11 Yes [id number] Inject 5 U nivers glargine-yf 0-13 units ity of gn 100 00:00: daily [place] unit/mL (3 00 Medical mL) InPn Branch insulin 2021-11- No [id number] Inject 5 [facility] glargine-yf 0-13 02-17 units ity of gn 100 00:00: 00:00 daily [place] unit/mL (3 00 :00 Medical mL) InPn Branch insulin 2021-11- No [id number] Inject 5 [facility] glargine-yf 0-13 02-17 units ity of gn 100 00:00: 00:00 daily [place] unit/mL (3 00 [facility] [id number] 5U inject Un otoniel glargine-yf 0-13 10-13 0.05 mL ity of gn 00:00: 00:00 under the [place] (SEMGLEE,IN 00 :[address] [facility], morning. PEN) 100 unit/mL (3 mL) In insulin 2021-11- No [id number] 5U inject Un otoniel glargine-yf 0-13 10-13 0.05 mL ity of gn 00:00: 00:00 under the [place] (SEMGLEE,IN 00 :[address] [facility], morning. PEN) 100 unit/mL (3 mL) In insulin 2021-11 No [id number] 5U inject Un otoniel glargine-yf 0-13 10-13 0.05 mL ity of gn 00:00: 00:00 under the [place] (SEMGLEE,IN 00 :[address] [facility], morning. PEN) 100 unit/mL (3 mL) In NaCl 0.9% 2021-11- No [id number] 1000mL at 999 Univers (NS) IV 0-12 10-12 mL/hr, IV ity of infusion 15:45: 16:55 Infusion, [place] as 1,000 mL 00 :00 ONCE, 1 Medical dose, On Branch Tue08/25/22 at 1045, Routine ondansetron 2021-11 Yes 4mg Take 5 mL U nivers (ZOFRAN) 4 0-12 by mouth 2 ity of mg/5 mL 00:00: (two) [place] solution 00 times Medical daily as Branch needed for Nausea and Vomiting (N/V) or N/V unresponsi ve to Promethazi ne. ondansetron 2021-11 Yes 4mg Take 5 mL U nivers (ZOFRAN) 4 0-12 by mouth 2 ity of mg/5 mL 00:00: (two) [place] solution 00 times Medical daily as Branch needed for Nausea and Vomiting (N/V) or N/V unresponsi ve to Promethazi ne. ondansetron 2-1 Yes 4mg Take 5 mL U nivers (ZOFRAN) 4 0-12 by mouth 2 ity of mg/5 mL 00:00: (two) [place] solution 00 times Medical daily as Branch needed for Nausea and Vomiting (N/V) or N/V unresponsi ve to Promethazi ne. ondansetron 2021-1 Yes 4mg Take 5 mL U nivers (ZOFRAN) 4 0-12 by mouth 2 ity of mg/5 mL 00:00: (two) [place] solution 00 times Medical daily as Branch needed for Nausea and Vomiting (N/V) or N/V unresponsi ve to Promethazi ne. ondansetron 2021-1 Yes 4mg Take 5 mL U nivers (ZOFRAN) 4 0-12 by mouth 2 ity of mg/5 mL 00:00: (two) [place] solution 00 times Medical daily as Branch needed for Nausea and Vomiting (N/V) or N/V unresponsi ve to Promethazi ne. ondansetron 2021- Yes 4mg Take 5 mL U nivers (ZOFRAN) 4 0-12 by mouth 2 ity of mg/5 mL 00:00: (two) [place] solution 00 times Medical daily as Branch needed for Nausea and Vomiting (N/V) or N/V unresponsi ve to Promethazi ne. ondansetron 2021-1 Yes 4mg Take 5 mL U nivers (ZOFRAN) 4 0-12 by mouth 2 ity of mg/5 mL 00:00: (two) [place] solution 00 times Medical daily as Branch needed for Nausea and Vomiting (N/V) or N/V unresponsi ve to Promethazi ne. ondansetron 2021-1 Yes 4mg Take 5 mL U nivers (ZOFRAN) 4 0-12 by mouth 2 ity of mg/5 mL 00:00: (two) [place] solution 00 times Medical daily as Branch needed for Nausea and Vomiting (N/V) or N/V unresponsi ve to Promethazi ne. ondansetron 2-1 Yes 4mg Take 5 mL U nivers (ZOFRAN) 4 0-12 by mouth 2 ity of mg/5 mL 00:00: (two) [place] solution 00 times Medical daily as Branch needed for Nausea and Vomiting (N/V) or N/V unresponsi ve to Promethazi ne. ondansetron 2-1 Yes 4mg Take 5 mL U nivers (ZOFRAN) 4 0-12 by mouth 2 ity of mg/5 mL 00:00: (two) [place] solution 00 times Medical daily as Branch needed for Nausea and Vomiting (N/V) or N/V unresponsi ve to Promethazi ne. ondansetron 2021-1 Yes 4mg Take 5 mL U nivers (ZOFRAN) 4 0-12 by mouth 2 ity of mg/5 mL 00:00: (two) [place] solution 00 times Medical daily as Branch needed for Nausea and Vomiting (N/V) or N/V unresponsi ve to Promethazi ne. ondansetron 2021-1 Yes 4mg Take 5 mL U nivers (ZOFRAN) 4 0-12 by mouth 2 ity of mg/5 mL 00:00: (two) [place] solution 00 times Medical daily as Branch needed for Nausea and Vomiting (N/V) or N/V unresponsi ve to Promethazi ne. ondansetron 2021-1 Yes 4mg Take 5 mL U nivers (ZOFRAN) 4 0-12 by mouth 2 ity of mg/5 mL 00:00: (two) [place] solution 00 times Medical daily as Branch needed for Nausea and Vomiting (N/V) or N/V unresponsi ve to Promethazi ne. ondansetron 2-1 Yes 4mg Take 5 mL U nivers (ZOFRAN) 4 0-12 by mouth 2 ity of mg/5 mL 00:00: (two) [place] solution 00 times Medical daily as Branch needed for Nausea and Vomiting (N/V) or N/V unresponsi ve to Promethazi ne. ondansetron 2-1 Yes 4mg Take 5 mL U nivers (ZOFRAN) 4 0-12 by mouth 2 ity of mg/5 mL 00:00: (two) [place] solution 00 times Medical daily as Branch needed for Nausea and Vomiting (N/V) or N/V unresponsi ve to Promethazi ne. ondansetron 2-1 Yes 4mg Take 5 mL U nivers (ZOFRAN) 4 0-12 by mouth 2 ity of mg/5 mL 00:00: (two) [place] solution 00 times Medical daily as Branch needed for Nausea and Vomiting (N/V) or N/V unresponsi ve to Promethazi ne. ondansetron 2-1 Yes 4mg Take 5 mL U nivers (ZOFRAN) 4 0-12 by mouth 2 ity of mg/5 mL 00:00: (two) [place] solution 00 times Medical daily as Branch needed for Nausea and Vomiting (N/V) or N/V unresponsi ve to Promethazi ne. ondansetron 2021-1 Yes 4mg Take 5 mL U nivers (ZOFRAN) 4 0-12 by mouth 2 ity of mg/5 mL 00:00: (two) [place] solution 00 times Medical daily as Branch needed for Nausea and Vomiting (N/V) or N/V unresponsi ve to Promethazi ne. ondansetron 2021- Yes 4mg Take 5 mL U nivers (ZOFRAN) 4 0-12 by mouth 2 ity of mg/5 mL 00:00: (two) [place] solution 00 times Medical daily as Branch needed for Nausea and Vomiting (N/V) or N/V unresponsi ve to Promethazi ne. ondansetron 2-1 Yes 4mg Take 5 mL U nivers (ZOFRAN) 4 0-12 by mouth 2 ity of mg/5 mL 00:00: (two) [place] solution 00 times Medical daily as Branch needed for Nausea and Vomiting (N/V) or N/V unresponsi ve to Promethazi ne. ondansetron 2-1 Yes 4mg Take 5 mL U nivers (ZOFRAN) 4 0-12 by mouth 2 ity of mg/5 mL 00:00: (two) [place] solution 00 times Medical daily as Branch needed for Nausea and Vomiting (N/V) or N/V unresponsi ve to Promethazi ne. ondansetron 2-1 Yes 4mg Take 5 mL U nivers (ZOFRAN) 4 0-12 by mouth 2 ity of mg/5 mL 00:00: (two) [place] solution 00 times Medical daily as Branch needed for Nausea and Vomiting (N/V) or N/V unresponsi ve to Promethazi ne. ondansetron 2021-11 Yes 4mg Take 5 mL U nivers (ZOFRAN) 4 0-12 by mouth 2 ity of mg/5 mL 00:00: (two) [place] solution 00 times Medical daily as Branch needed for Nausea and Vomiting (N/V) or N/V unresponsi ve to Promethazi ne. ondansetron 2021-11 Yes 4mg Take 5 mL U nivers (ZOFRAN) 4 0-12 by mouth 2 ity of mg/5 mL 00:00: (two) [place] solution 00 times Medical daily as Branch needed for Nausea and Vomiting (N/V) or N/V unresponsi ve to Promethazi ne. ondansetron 2021-11 Yes 4mg Take 5 mL U nivers (ZOFRAN) 4 0-12 by mouth 2 ity of mg/5 mL 00:00: (two) [place] solution 00 times Medical daily as Branch needed for Nausea and Vomiting (N/V) or N/V unresponsi ve to Promethazi ne. ondansetron 2021-11 Yes 4mg Take 5 mL U nivers (ZOFRAN) 4 0-12 by mouth 2 ity of mg/5 mL 00:00: (two) [place] solution 00 times Medical daily as Branch needed for Nausea and Vomiting (N/V) or N/V unresponsi ve to Promethazi ne. ondansetron 2021-11 Yes 4mg Take 5 mL U nivers (ZOFRAN) 4 0-12 by mouth 2 ity of mg/5 mL 00:00: (two) [place] solution 00 times Medical daily as Branch needed for Nausea and Vomiting (N/V) or N/V unresponsi ve to Promethazi ne. ondansetron 2021-11 4mg Take 5 mL Univers (ZOFRAN) 4 0-12 11-28 by mouth 2 it y of mg/5 mL 00:00: 00:00 (two) [place] solution 00 :00 times Medical daily as Branch needed for Nausea and Vomiting (N/V) or N/V unresponsi ve to Promethazi ne. levalbutero 2021-11 Yes [id number] INHALE 1-2 Univers l 45 0-04 PUFFS BY ity of mcg/actuati 00:00: MOUTH [place] on inhaler 00 EVERY 4 Medica l HOURS Branch NEEDED FOR WHEEZING levalbutero 2021-11 Yes [id number] INHALE 1-2 Univers l 45 0-04 PUFFS BY ity of mcg/actuati 00:00: MOUTH [place] on inhaler 00 EVERY 4 Medica l HOURS Branch NEEDED FOR WHEEZING levalbutero 2021-11 Yes [id number] INHALE 1-2 Univers l 45 0-04 PUFFS BY ity of mcg/actuati 00:00: MOUTH [place] on inhaler 00 EVERY 4 Medica l HOURS Branch NEEDED FOR WHEEZING levalbutero 2021-11 Yes [id number] INHALE 1-2 Univers l 45 0-04 PUFFS BY ity of mcg/actuati 00:00: MOUTH [place] on inhaler 00 EVERY 4 Medica l HOURS Branch NEEDED FOR WHEEZING levalbutero 2021-11 Yes [id number] INHALE 1-2 Univers l 45 0-04 PUFFS BY ity of mcg/actuati 00:00: MOUTH [place] on inhaler 00 EVERY 4 Medica l HOURS Branch NEEDED FOR WHEEZING levalbutero 2021-11 Yes [id number] INHALE 1-2 Univers l 45 0-04 PUFFS BY ity of mcg/actuati 00:00: MOUTH [place] on inhaler 00 EVERY 4 Medica l HOURS Branch NEEDED FOR WHEEZING levalbutero 2021-11 Yes [id number] INHALE 1-2 Univers l 45 0-04 PUFFS BY ity of mcg/actuati 00:00: MOUTH [place] on inhaler 00 EVERY 4 Medica l HOURS Branch NEEDED FOR WHEEZING levalbutero 2021-11 Yes [id number] INHALE 1-2 Univers l 45 0-04 PUFFS BY ity of mcg/actuati 00:00: MOUTH [place] on inhaler 00 EVERY 4 Medica l HOURS Branch NEEDED FOR WHEEZING levalbutero 2021-11 Yes [id number] INHALE 1-2 Univers l 45 0-04 PUFFS BY ity of mcg/actuati 00:00: MOUTH [place] on inhaler 00 EVERY 4 Medica l HOURS Branch NEEDED FOR WHEEZING levalbutero 2021-11 Yes [id number] INHALE 1-2 [facility] 45 0-04 PUFFS BY [facility]y of mcg/actuati 00:00: MOUTH [place] on inhaler 00 EVERY 4 [facility]ica [facility] HOURS [facility] NEEDED FOR WHEEZING levalbutero 2021-11 Yes [id number] INHALE 1-2 [facility] 45 0-04 PUFFS BY [facility]y of mcg/actuati 00:00: MOUTH [place] on inhaler 00 EVERY 4 Medica [facility] HOURS [facility] NEEDED FOR WHEEZING levalbutero 2021-11 Yes [id number] INHALE 1-2 [facility] 45 0-04 PUFFS BY ity of mcg/actuati 00:00: MOUTH [place] on inhaler 00 EVERY 4 Medica [facility] HOURS [facility] NEEDED FOR WHEEZING levalbutero 2021-11 Yes [id number] INHALE 1-2 [facility] 45 0-04 PUFFS BY ity of mcg/actuati 00:00: MOUTH [place] on inhaler 00 EVERY 4 Medica [facility] HOURS [facility] NEEDED FOR WHEEZING levalbutero 2021-11 Yes [id number] INHALE 1-2 [facility] 45 0-04 PUFFS BY ity of mcg/actuati 00:00: MOUTH [place] on inhaler 00 EVERY 4 Medica [facility] HOURS [facility] NEEDED FOR WHEEZING levalbutero 2021-11 Yes [id number] INHALE 1-2 [facility] 45 0-04 PUFFS BY ity of mcg/actuati 00:00: MOUTH [place] on inhaler 00 EVERY 4 Medica [facility] HOURS [facility] NEEDED FOR WHEEZING levalbutero 2021-11 Yes [id number] INHALE 1-2 [facility] 45 [facility]-04 PUFFS BY [facility] of mcg/actuati 00:00: MOUTH [place] on inhaler 00 EVERY 4 Medica l HOURS Branch NEEDED FOR WHEEZING levalbutero 2021-11 Yes [id number] INHALE 1-2 [facility] 45 0-04 PUFFS BY ity of mcg/actuati 00:00: MOUTH [place] on inhaler 00 EVERY 4 Medica l HOURS Branch NEEDED FOR WHEEZING levalbutero 2021-11 Yes [id number] INHALE 1-2 [facility] 45 0-04 PUFFS BY ity of mcg/actuati 00:00: MOUTH [place] on inhaler 00 EVERY 4 Medica l HOURS Branch NEEDED FOR WHEEZING levalbutero 2021-11 Yes [id number] INHALE 1-2 [facility] 45 0-04 PUFFS BY ity of mcg/actuati 00:00: MOUTH [place] on inhaler 00 EVERY 4 Medica l HOURS Branch NEEDED FOR WHEEZING levalbutero 2021-11- No [id number] INHALE 1-2 [facility] 45 0-04 11-04 PUFFS BY ity of mcg/actuati 00:00: 00:00 [place] 00 :00 EVERY 4 Medica l HOURS Branch NEEDED FOR WHEEZING ivabradine Yes [id number] TAKE 1 [facility] (CORLANOR) 9-28 TABLET BY ity of 7.5 mg 00:00: MOUTH [place] tablet 00 TWICE A Medical DAY Branch ivabradine Yes [id number] TAKE 1 [facility] (CORLANOR) 9-28 TABLET BY ity of 7.5 mg 00:00: MOUTH [place] tablet 00 TWICE A Medical DAY Branch ivabradine Yes [id number] TAKE 1 [facility] (CORLANOR) 9-28 TABLET BY ity of 7.5 mg 00:00: MOUTH [place] tablet 00 TWICE A Medical DAY Branch ivabradine Yes [id number] TAKE 1 [facility] (CORLANOR) 9-28 TABLET BY ity of 7.5 mg 00:00: MOUTH [place] tablet 00 TWICE A Medical DAY Branch ivabradine Yes [id number] TAKE 1 [facility] (CORLANOR) 9-28 TABLET BY ity of 7.5 mg 00:00: MOUTH [place] tablet 00 TWICE A Medical DAY Branch ivabradine Yes [id number] TAKE 1 [facility] (CORLANOR) 9-28 TABLET BY ity of 7.5 mg 00:00: MOUTH [place] tablet 00 TWICE A Medical DAY Branch ivabradine 2021- No [id number] TAKE 1 [facility] (CORLANOR) 9-28 10-19 TABLET BY ity of 7.5 mg 00:00: 00:00 MOUTH [place] tablet 00 :00 TWICE A Medical DAY Branch ivabradine 2021- No [id number] TAKE 1 [facility] (CORLANOR) 9-28 10-19 TABLET BY ity of 7.5 mg 00:00: 00:00 MOUTH [place] tablet 00 :00 TWICE A Medical DAY Branch ivabradine 2021- No [id number] TAKE 1 [facility] (CORLANOR) 9-28 10-19 TABLET BY ity of 7.5 mg 00:00: 00:00 MOUTH [place] tablet 00 :00 TWICE A Medical DAY Branch diclofenac 2021- No [id number] 50mg Take 1 [facility] 50 mg 9-15 10-31 tablet by ity of tablet 00:00: 04:59 mouth in [place] 00 :00 the Medical morning Branch and 1 tablet at noon and 1 tablet in the evening. Do all this for 45 days. diclofenac 2021- No [id number] 50mg Take 1 [facility] 50 mg 9-15 10-31 tablet by ity of tablet 00:00: 04:59 mouth in [place] 00 :00 the Medical morning Branch and 1 tablet at noon and 1 tablet in the evening. Do all this for 45 days. diclofenac 2021- No [id number] 50mg Take 1 [facility] 50 mg 9-15 10-31 tablet by ity of tablet 00:00: 04:59 mouth in [place] 00 :00 the Medical morning Branch and 1 tablet at noon and 1 tablet in the evening. Do all this for 45 days. diclofenac 2021- No [id number] 50mg Take 1 [facility] 50 mg 9-15 10-31 tablet by ity of tablet 00:00: 04:59 mouth in [place] 00 :00 the Medical morning Branch and 1 tablet at noon and 1 tablet in the evening. Do all this for 45 days. diclofenac 2021- No [id number] 50mg Take 1 [facility] 50 mg 9-15 10-31 tablet by ity of tablet 00:00: 04:59 mouth in [place] 00 :00 the Medical morning Branch and 1 tablet at noon and 1 tablet in the evening. Do all this for 45 days. diclofenac 2021- No [id number] 50mg Take 1 [facility] 50 mg 9-15 10-31 tablet by ity of tablet 00:00: 04:59 mouth in [place] 00 :00 the Medical morning Branch and 1 tablet at noon and 1 tablet in the evening. Do all this for 45 days. diclofenac 2021-2021- No [id number] 50mg Take 1 [facility] 50 mg 9-15 10-31 tablet by ity of tablet 00:00: 04:59 mouth in [place] 00 :00 the Medical morning Branch and 1 tablet at noon and 1 tablet in the evening. Do all this for 45 days. diclofenac 2021-2021- No [id number] 50mg Take 1 [facility] 50 mg 9-15 10-31 tablet by ity of tablet 00:00: 04:59 mouth in [place] 00 :00 the Medical morning Branch and 1 tablet at noon and 1 tablet in the evening. Do all this for 45 days. diclofenac 2021-2021- No [id number] 50mg Take 1 [facility] 50 mg 9-15 10-31 tablet by ity of tablet 00:00: 04:59 mouth in [place] 00 :00 the Medical morning Branch and 1 tablet at noon and 1 tablet in the evening. Do all this for 45 days. diclofenac 2021-0 2021- No [id number] 50mg Take 1 [facility] 50 mg 9-15 10-31 tablet by ity of tablet 00:00: 04:59 mouth in [place] 00 :00 the Medical morning Branch and 1 tablet at noon and 1 tablet in the evening. Do all this for 45 days. diclofenac 2021-2021- No [id number] 50mg Take 1 [facility] 50 mg 9-15 10-31 tablet by ity of tablet 00:00: 04:59 mouth in [place] 00 :00 the Medical morning Branch and 1 tablet at noon and 1 tablet in the evening. Do all this for 45 days. diclofenac 2021-2021- No [id number] 50mg Take 1 [facility] 50 mg 9-15 10-31 tablet by ity of tablet 00:00: 04:59 mouth in [place] 00 :00 the Medical morning Branch and 1 tablet at noon and 1 tablet in the evening. Do all this for 45 days. diclofenac 2021-0 2021- No [id number] 50mg Take 1 [facility] 50 mg 9-15 10-31 tablet by ity of tablet 00:00: 04:59 mouth in [place] 00 :00 the Medical morning Branch and 1 tablet at noon and 1 tablet in the evening. Do all this for 45 days. diclofenac 2021-0 2021- No [id number] 50mg Take 1 [facility] 50 mg 9-15 10-31 tablet by ity of tablet 00:00: 04:59 mouth in [place] 00 :00 the Medical morning Branch and 1 tablet at noon and 1 tablet in the evening. Do all this for 45 days. diclofenac 2021-2021- No [id number] 50mg Take 1 [facility] 50 mg 9-15 10-31 tablet by ity of tablet 00:00: 04:59 mouth in [place] 00 :00 the [facility] morning Branch and 1 tablet at noon and 1 tablet in the evening. Do all this for 45 days. diclofenac 2021-2021- No [id number] 50mg Take 1 [facility] 50 mg 9-15 10-31 tablet by ity of tablet 00:00: 04:59 mouth in [place] 00 :00 the [facility] and 1 tablet at noon and 1 tablet in the evening. Do all this for 45 days. diclofenac 2021-2021- No [id number] 50mg Take 1 [facility] 50 mg 9-15 10-31 tablet by ity of tablet 00:00: 04:59 mouth in [place] 00 :00 the [facility] and 1 tablet at noon and 1 tablet in the evening. Do all this for 45 days. diclofenac 2021-2021- No [id number] 50mg Take 1 [facility] 50 mg 9-15 10-31 tablet by ity of tablet 00:00: 04:59 mouth in [place] 00 :00 the [facility] and 1 tablet at noon and 1 tablet in the evening. Do all this for 45 days. diclofenac 2021-2021- No [id number] 50mg Take 1 [facility] 50 mg 9-15 10-31 tablet by ity of tablet 00:00: 04:59 mouth in [place] 00 :00 the [facility] and 1 tablet at noon and 1 tablet in the evening. Do all this for 45 days. diclofenac 2021-2021- No [id number] 50mg Take 1 [facility] 50 mg 9-15 10-31 tablet by ity of tablet 00:00: 04:59 mouth in [place] 00 :00 the [facility] and 1 tablet at noon and 1 tablet in the evening. Do all this for 45 days. diclofenac 2021-0 2021- No [id number] 50mg Take 1 [facility] 50 mg 9-15 10-31 tablet by ity of tablet 00:00: 04:59 mouth in [place] 00 :00 [facility] and 1 tablet at noon and 1 tablet in the evening. Do all this for 45 days. diclofenac 2021-0 2021- No [id number] 50mg Take 1 [facility] 50 mg 9-15 10-31 tablet by ity of tablet 00:00: 04:59 mouth in [place] 00 :00 the Medical morning Branch and 1 tablet at noon and 1 tablet in the evening. Do all this for 45 days. diclofenac 0 2021- No [id number] 50mg Take 1 [facility] 50 mg 9-15 10-31 tablet by ity of tablet 00:00: 04:59 mouth in [place] 00 :00 the [facility] morning Branch and 1 tablet at noon and 1 tablet in the evening. Do all this for 45 days. diclofenac 0 2021- No [id number] 50mg Take 1 [facility] 50 mg 9-15 10-31 tablet by ity of tablet 00:00: 04:59 mouth in [place] 00 :00 the [facility] and 1 tablet at noon and 1 tablet in the evening. Do all this for 45 days. dicyclomine Yes 10mg Take 10 mg [facility] (BENTYL) 10 9-13 by mouth [facility] MG capsule 14:20: every 6 of 56 hours. Medicin e ALBUTEROL Yes Take by [facility] SULFATE OR 9-13 mouth. [facility] 14:20: of 56 Medicin e albuterol Yes 1{ampul Take 1 [facility] (PROVENTIL) 9-13 e} Ampule by [facility] (2.5 mg/3 14:20: nebulizati of mL) 0.083% 56 on as Medicin nebulizer needed. e solution MAGNESIUM Yes Take by [facility] CITRATE OR 9-13 mouth as Colle ge 14:20: needed. of 56 Medicin e VENLAFAXINE Yes Take by [facility] HCL OR 9-13 mouth. [facility] 14:20: of 56 Medicin e sumatriptan Yes 50mg Take 50 mg [facility] (IMITREX) 9-13 by mouth Colleg e 50 MG 14:20: once as of tablet 56 needed for Medicin Migraine. e naproxen 0 Yes 500mg Take 500 [facility] (NAPROSYN) 9-13 mg by [facility] 500 MG 14:20: mouth 2 of tablet 56 times Medicin daily e (with meals). Nystatin 0 Yes [facility] POWD 9-13 [facility] 14:20: of 56 Medicin e dicyclomine 2022-0 Yes 10mg Take 10 mg [facility] (BENTYL) 10 9-13 by mouth [facility] MG capsule 14:20: every 6 of 56 hours. Medicin e ALBUTEROL Yes Take by [facility] SULFATE OR -13 mouth. [place] 14:20: of 56 Medicin e albuterol Yes 1{ampul Take 1 [facility] (PROVENTIL) 9-13 e} Ampule by [facility] (2.5 mg/3 14:20: nebulizati of mL) 0.083% 56 on as Medicin nebulizer needed. e solution VENLAFAXINE Yes Take by [facility] HCL OR 9-13 mouth. [place] 14:20: of 56 Medicin e naproxen Yes 500mg Take 500 [facility] (NAPROSYN) 9-13 mg by [place] 500 MG 14:20: mouth 2 of tablet 56 times Medicin daily e (with meals). Nystatin 0 Yes [facility] POWD 07-27 [place] 14:20: of 56 Medicin e traMADoL 50 Yes 1{tbl} Take 1 Un [place] mg tablet 9-13 tablet by ity o f 00:00: mouth. [place] [facility] traMADoL 50 Yes 1{tbl} Take 1 Un [place] mg tablet 9-13 tablet by ity o f 00:00: mouth. [place] [facility] traMADoL 50 Yes 1{tbl} Take 1 Un [place] mg tablet 9-13 tablet by ity o f 00:00: mouth. [place] [facility] traMADoL 50 Yes 1{tbl} Take 1 Un [place] mg tablet 9-13 tablet by ity o f 00:00: mouth. [place] [facility] traMADoL 50 Yes 1{tbl} Take 1 Un [place] mg tablet 9-13 tablet by ity o f 00:00: mouth. [place] [facility] traMADoL 50 0 Yes 1{tbl} Take 1 Un o[place] mg tablet 9-13 tablet by ity o f 00:00: mouth. [place] [facility] traMADoL 50 Yes 1{tbl} Take 1 Un o[place] mg tablet 9-13 tablet by ity o f 00:00: mouth. Medical Branch traMADoL 50 2021-0 Yes 1{tbl} Take 1 Un [place] mg tablet 9-13 tablet by ity o f 00:00: mouth. Medical Branch traMADoL 50 2021-0 Yes 1{tbl} Take 1 Un [place] mg tablet 9-13 tablet by ity o f 00:00: mouth. Medical Branch tramadol 2021-0 Yes [id number] 1{tbl} Take 1 [facility] (ULTRAM) 50 9-13 Tablet by [facility] MG tablet 00:00: mouth of 00 every 4 Medicin hours as e needed for Pain (max 6/dqy). tramadol Yes [id number] 1{tbl} Take 1 [facility] (ULTRAM) 50 9-13 Tablet by Col [facility] MG tablet 00:00: mouth of 00 every 4 Medicin hours as e needed for Pain (max 6/dqy). hydrOXYzine Yes [id number] TAKE 1 U nivers 50 mg 9-10 TABLET BY ity of tablet 00:00: MOUTH 3 00 TIMES Medical DAILY Branch NEEDED FOR ANXIETY. hydrOXYzine 0 Yes [id number] TAKE 1 U nivers 50 mg 9-10 TABLET BY ity of tablet 00:00: MOUTH 3 00 TIMES Medical DAILY Branch NEEDED FOR ANXIETY. hydrOXYzine 0 Yes [id number] TAKE 1 U nivers 50 mg 9-10 TABLET BY ity of tablet 00:00: MOUTH 3 00 TIMES Medical DAILY Branch NEEDED FOR ANXIETY. hydrOXYzine 0 Yes [id number] TAKE 1 U nivers 50 mg 9-10 TABLET BY ity of tablet 00:00: MOUTH 3 00 TIMES Medical DAILY Branch NEEDED FOR ANXIETY. hydrOXYzine 0 Yes [id number] TAKE 1 U nivers 50 mg 9-10 TABLET BY ity of tablet 00:00: MOUTH 3 00 TIMES Medical DAILY Branch NEEDED FOR ANXIETY. hydrOXYzine 0 Yes [id number] TAKE 1 U nivers 50 mg 9-10 TABLET BY ity of tablet 00:00: MOUTH 3 00 TIMES Medical DAILY Branch NEEDED FOR ANXIETY. hydrOXYzine 0 Yes [id number] TAKE 1 U nivers 50 mg 9-10 TABLET BY ity of tablet 00:00: MOUTH 3 [place] 00 TIMES Medical DAILY Branch NEEDED FOR ANXIETY. hydrOXYzine 2021-0 Yes [id number] TAKE 1 U nivers 50 mg 9-10 TABLET BY ity of tablet 00:00: MOUTH 3 [place] 00 TIMES Medical DAILY Branch NEEDED FOR ANXIETY. hydrOXYzine 2021-0 Yes [id number] TAKE 1 U nivers 50 mg 9-10 TABLET BY ity of tablet 00:00: MOUTH 3 [place] 00 TIMES Medical DAILY Branch NEEDED FOR ANXIETY. hydrOXYzine 2021-0 Yes [id number] TAKE 1 U nivers 50 mg 9-10 TABLET BY ity of tablet 00:00: MOUTH 3 [place] 00 TIMES Medical DAILY Branch NEEDED FOR ANXIETY. hydrOXYzine 2021-0 Yes [id number] TAKE 1 U nivers 50 mg 9-10 TABLET BY ity of tablet 00:00: MOUTH 3 [place] 00 TIMES Medical DAILY Branch NEEDED FOR ANXIETY. hydrOXYzine 2021-0 Yes [id number] TAKE 1 U nivers 50 mg 9-10 TABLET BY ity of tablet 00:00: MOUTH 3 [place] 00 TIMES Medical DAILY Branch NEEDED FOR ANXIETY. hydrOXYzine 2021-0 Yes [id number] TAKE 1 U nivers 50 mg 9-10 TABLET BY ity of tablet 00:00: MOUTH 3 [place] 00 TIMES Medical DAILY Branch NEEDED FOR ANXIETY. hydrOXYzine 2021-0 Yes [id number] TAKE 1 U nivers 50 mg 9-10 TABLET BY ity of tablet 00:00: MOUTH 3 [place] 00 TIMES Medical DAILY Branch NEEDED FOR ANXIETY. hydrOXYzine 2021-0 Yes [id number] TAKE 1 U nivers 50 mg 9-10 TABLET BY ity of tablet 00:00: MOUTH 3 [place] 00 TIMES Medical DAILY Branch NEEDED FOR ANXIETY. hydrOXYzine 2021-0 Yes [id number] TAKE 1 U nivers 50 mg 9-10 TABLET BY ity of tablet 00:00: MOUTH 3 [place] 00 TIMES Medical DAILY Branch NEEDED FOR ANXIETY. hydrOXYzine 2021-0 Yes [id number] TAKE 1 U nivers 50 mg 9-10 TABLET BY ity of tablet 00:00: MOUTH 3 [place] 00 TIMES Medical DAILY Branch NEEDED FOR ANXIETY. hydrOXYzine 2021-0 Yes [id number] TAKE 1 U nivers 50 mg 9-10 TABLET BY ity of tablet 00:00: MOUTH 3 [place] 00 TIMES Medical DAILY Branch NEEDED FOR ANXIETY. hydrOXYzine 2021-0 Yes [id number] TAKE 1 U nivers 50 mg 9-10 TABLET BY ity of tablet 00:00: MOUTH 3 [place] 00 TIMES Medical DAILY Branch NEEDED FOR ANXIETY. hydrOXYzine 0 Yes [id number] TAKE 1 U nivers 50 mg 9-10 TABLET BY ity of tablet 00:00: MOUTH 3 [place] 00 TIMES Medical DAILY Branch NEEDED FOR ANXIETY. hydrOXYzine 0 Yes [id number] TAKE 1 U nivers 50 mg 9-10 TABLET BY ity of tablet 00:00: MOUTH 3 [place] 00 TIMES Medical DAILY Branch NEEDED FOR ANXIETY. hydrOXYzine 0 Yes [id number] TAKE 1 U nivers 50 mg 9-10 TABLET BY ity of tablet 00:00: MOUTH 3 [place] 00 TIMES Medical DAILY Branch NEEDED FOR ANXIETY. hydrOXYzine 0 Yes [id number] TAKE 1 U nivers 50 mg 9-10 TABLET BY ity of tablet 00:00: MOUTH 3 [place] 00 TIMES Medical DAILY Branch NEEDED FOR ANXIETY. hydrOXYzine 0 Yes [id number] TAKE 1 U nivers 50 mg 9-10 TABLET BY ity of tablet 00:00: MOUTH 3 [place] 00 TIMES Medical DAILY Branch NEEDED FOR ANXIETY. hydrOXYzine 0 Yes [id number] TAKE 1 U nivers 50 mg 9-10 TABLET BY ity of tablet 00:00: MOUTH 3 [place] 00 TIMES Medical DAILY Branch NEEDED FOR ANXIETY. hydrOXYzine 0 Yes [id number] TAKE 1 U nivers 50 mg 9-10 TABLET BY ity of tablet 00:00: MOUTH 3 [place] 00 TIMES Medical DAILY Branch NEEDED FOR ANXIETY. hydrOXYzine 0 Yes [id number] TAKE 1 U nivers 50 mg 9-10 TABLET BY ity of tablet 00:00: MOUTH 3 [place] 00 TIMES Medical DAILY Branch NEEDED FOR ANXIETY. hydrOXYzine 0 Yes [id number] TAKE 1 U nivers 50 mg 9-10 TABLET BY ity of tablet 00:00: MOUTH 3 [place] 00 TIMES Medical DAILY Branch NEEDED FOR ANXIETY. hydrOXYzine 2021-0 Yes [id number] TAKE 1 U nivers 50 mg 9-10 TABLET BY ity of tablet 00:00: MOUTH 3 [place] 00 TIMES Medical DAILY Branch NEEDED FOR ANXIETY. hydrOXYzine 0 Yes [id number] TAKE 1 U nivers 50 mg 9-10 TABLET BY ity of tablet 00:00: MOUTH 3 [place] 00 TIMES Medical DAILY Branch NEEDED FOR ANXIETY. hydrOXYzine 2021-0 Yes [id number] TAKE 1 U nivers 50 mg 9-10 TABLET BY ity of tablet 00:00: MOUTH 3 [place] 00 TIMES Medical DAILY Branch NEEDED FOR ANXIETY. hydrOXYzine 2021-0 Yes [id number] TAKE 1 U nivers 50 mg 9-10 TABLET BY ity of tablet 00:00: MOUTH 3 [place] 00 TIMES Medical DAILY Branch NEEDED FOR ANXIETY. hydrOXYzine 0 Yes [id number] TAKE 1 U nivers 50 mg 9-10 TABLET BY ity of tablet 00:00: MOUTH 3 [place] 00 TIMES Medical DAILY Branch NEEDED FOR ANXIETY. hydrOXYzine 0 Yes [id number] TAKE 1 U nivers 50 mg 9-10 TABLET BY ity of tablet 00:00: MOUTH 3 [place] 00 TIMES Medical DAILY Branch NEEDED FOR ANXIETY. hydrOXYzine 0 Yes [id number] TAKE 1 U nivers 50 mg 9-10 TABLET BY ity of tablet 00:00: MOUTH 3 [place] 00 TIMES Medical DAILY Branch NEEDED FOR ANXIETY. hydrOXYzine 0 Yes [id number] TAKE 1 U nivers 50 mg 9-10 TABLET BY ity of tablet 00:00: MOUTH 3 [place] 00 TIMES Medical DAILY Branch NEEDED FOR ANXIETY. hydrOXYzine 0 Yes [id number] TAKE 1 U nivers 50 mg 9-10 TABLET BY ity of tablet 00:00: MOUTH 3 [place] 00 TIMES Medical DAILY Branch NEEDED FOR ANXIETY. hydrOXYzine 2021-0 Yes [id number] TAKE 1 U nivers 50 mg 9-10 TABLET BY ity of tablet 00:00: MOUTH 3 [place] 00 TIMES Medical DAILY Branch NEEDED FOR ANXIETY. hydrOXYzine 2021-0 Yes [id number] TAKE 1 U nivers 50 mg 9-10 TABLET BY ity of tablet 00:00: MOUTH 3 [place] 00 TIMES Medical DAILY Branch NEEDED FOR ANXIETY. hydrOXYzine 2021-0 Yes [id number] TAKE 1 U nivers 50 mg 9-10 TABLET BY ity of tablet 00:00: MOUTH 3 [place] 00 TIMES Medical DAILY Branch NEEDED FOR ANXIETY. hydrOXYzine 2021-0 Yes [id number] TAKE 1 U nivers 50 mg 9-10 TABLET BY ity of tablet 00:00: MOUTH 3 [place] 00 TIMES Medical DAILY Branch NEEDED FOR ANXIETY. hydrOXYzine 2021-0 Yes [id number] TAKE 1 U nivers 50 mg 9-10 TABLET BY ity of tablet 00:00: MOUTH 3 [place] 00 TIMES Medical DAILY Branch NEEDED FOR ANXIETY. hydrOXYzine 0 Yes [id number] TAKE 1 U nivers 50 mg 9-10 TABLET BY ity of tablet 00:00: MOUTH 3 [place] 00 TIMES Medical DAILY Branch NEEDED FOR ANXIETY. hydrOXYzine 0 Yes [id number] TAKE 1 U nivers 50 mg 9-10 TABLET BY ity of tablet 00:00: MOUTH 3 [place] 00 TIMES Medical DAILY Branch NEEDED FOR ANXIETY. hydrOXYzine 0 Yes [id number] TAKE 1 U nivers 50 mg 9-10 TABLET BY ity of tablet 00:00: MOUTH 3 [place] 00 TIMES Medical DAILY Branch NEEDED FOR ANXIETY. hydrOXYzine 0 Yes [id number] TAKE 1 U nivers 50 mg 9-10 TABLET BY ity of tablet 00:00: MOUTH 3 [place] 00 TIMES Medical DAILY Branch NEEDED FOR ANXIETY. hydrOXYzine 0 Yes [id number] TAKE 1 U nivers 50 mg 9-10 TABLET BY ity of tablet 00:00: MOUTH 3 [place] 00 TIMES Medical DAILY Branch NEEDED FOR ANXIETY. hydrOXYzine 0 Yes [id number] TAKE 1 U nivers 50 mg 9-10 TABLET BY ity of tablet 00:00: MOUTH 3 [place] 00 TIMES Medical DAILY Branch NEEDED FOR ANXIETY. hydrOXYzine 0 Yes [id number] TAKE 1 U nivers 50 mg 9-10 TABLET BY ity of tablet 00:00: MOUTH 3 [place] 00 TIMES Medical DAILY Branch NEEDED FOR ANXIETY. hydrOXYzine 0 Yes [id number] TAKE 1 U nivers 50 mg 9-10 TABLET BY ity of tablet 00:00: MOUTH 3 [place] 00 TIMES Medical DAILY Branch NEEDED FOR ANXIETY. hydrOXYzine 2021-0 Yes [id number] TAKE 1 U nivers 50 mg 9-10 TABLET BY ity of tablet 00:00: MOUTH 3 [place] 00 TIMES Medical DAILY Branch NEEDED FOR ANXIETY. hydrOXYzine 2021-0 Yes [id number] TAKE 1 U nivers 50 mg 9-10 TABLET BY ity of tablet 00:00: MOUTH 3 [place] 00 TIMES Medical DAILY Branch NEEDED FOR ANXIETY. hydrOXYzine 2021-0 Yes [id number] TAKE 1 U nivers 50 mg 9-10 TABLET BY ity of tablet 00:00: MOUTH 3 [place] 00 TIMES Medical DAILY Branch NEEDED FOR ANXIETY. hydrOXYzine 2021-0 Yes [id number] TAKE 1 U nivers 50 mg 9-10 TABLET BY ity of tablet 00:00: MOUTH 3 [place] 00 TIMES Medical DAILY Branch NEEDED FOR ANXIETY. hydrOXYzine 0 Yes [id number] TAKE 1 U nivers 50 mg 9-10 TABLET BY ity of tablet 00:00: MOUTH 3 [place] 00 TIMES Medical DAILY Branch NEEDED FOR ANXIETY. hydrOXYzine 0 Yes [id number] TAKE 1 U nivers 50 mg 9-10 TABLET BY ity of tablet 00:00: MOUTH 3 [place] 00 TIMES Medical DAILY Branch NEEDED FOR ANXIETY. hydrOXYzine 0 Yes [id number] TAKE 1 U nivers 50 mg 9-10 TABLET BY ity of tablet 00:00: MOUTH 3 [place] 00 TIMES Medical DAILY Branch NEEDED FOR ANXIETY. hydrOXYzine 0 Yes [id number] TAKE 1 U nivers 50 mg 9-10 TABLET BY ity of tablet 00:00: MOUTH 3 [place] 00 TIMES Medical DAILY Branch NEEDED FOR ANXIETY. hydrOXYzine 0 Yes [id number] TAKE 1 U nivers 50 mg 9-10 TABLET BY ity of tablet 00:00: MOUTH 3 [place] 00 TIMES Medical DAILY Branch NEEDED FOR ANXIETY. hydrOXYzine 0 Yes [id number] TAKE 1 U nivers 50 mg 9-10 TABLET BY ity of tablet 00:00: MOUTH 3 [place] 00 TIMES Medical DAILY Branch NEEDED FOR ANXIETY. hydrOXYzine 2021-0 Yes [id number] TAKE 1 U nivers 50 mg 9-10 TABLET BY ity of tablet 00:00: MOUTH 3 [place] 00 TIMES Medical DAILY Branch NEEDED FOR ANXIETY. hydrOXYzine 2021-0 Yes [id number] TAKE 1 U nivers 50 mg 9-10 TABLET BY ity of tablet 00:00: MOUTH 3 [place] 00 TIMES Medical DAILY Branch NEEDED FOR ANXIETY. hydrOXYzine 2021-0 Yes [id number] TAKE 1 U nivers 50 mg 9-10 TABLET BY ity of tablet 00:00: MOUTH 3 [place] 00 TIMES Medical DAILY Branch NEEDED FOR ANXIETY. hydrOXYzine 2021-0 Yes [id number] TAKE 1 U nivers 50 mg 9-10 TABLET BY ity of tablet 00:00: MOUTH 3 [place] 00 TIMES Medical DAILY Branch NEEDED FOR ANXIETY. hydrOXYzine 2021-0 Yes [id number] TAKE 1 U nivers 50 mg 9-10 TABLET BY ity of tablet 00:00: MOUTH 3 [place] 00 TIMES Medical DAILY Branch NEEDED FOR ANXIETY. hydrOXYzine 2021-0 Yes [id number] TAKE 1 U nivers 50 mg 9-10 TABLET BY ity of tablet 00:00: MOUTH 3 [place] 00 TIMES Medical DAILY Branch NEEDED FOR ANXIETY. hydrOXYzine 2021-0 Yes [id number] TAKE 1 U nivers 50 mg 9-10 TABLET BY ity of tablet 00:00: MOUTH 3 [place] 00 TIMES Medical DAILY Branch NEEDED FOR ANXIETY. hydrOXYzine 2021-0 Yes [id number] TAKE 1 U nivers 50 mg 9-10 TABLET BY ity of tablet 00:00: MOUTH 3 [place] 00 TIMES Medical DAILY Branch NEEDED FOR ANXIETY. hydrOXYzine 2021-0 Yes [id number] TAKE 1 U nivers 50 mg 9-10 TABLET BY ity of tablet 00:00: MOUTH 3 [place] 00 TIMES Medical DAILY Branch NEEDED FOR ANXIETY. hydrOXYzine 2021-0 Yes [id number] TAKE 1 U nivers 50 mg 9-10 TABLET BY ity of tablet 00:00: MOUTH 3 [place] 00 TIMES Medical DAILY Branch NEEDED FOR ANXIETY. hydrOXYzine 2021-0 Yes [id number] TAKE 1 U nivers 50 mg 9-10 TABLET BY ity of tablet 00:00: MOUTH 3 [place] 00 TIMES Medical DAILY Branch NEEDED FOR ANXIETY. hydrOXYzine 2021-0 Yes [id number] TAKE 1 U nivers 50 mg 9-10 TABLET BY ity of tablet 00:00: MOUTH 3 [place] 00 TIMES Medical DAILY Branch NEEDED FOR ANXIETY. hydrOXYzine 2021-0 Yes [id number] TAKE 1 U nivers 50 mg 9-10 TABLET BY ity of tablet 00:00: MOUTH 3 [place] 00 TIMES Medical DAILY Branch NEEDED FOR ANXIETY. hydrOXYzine 2021-0 Yes [id number] TAKE 1 U nivers 50 mg 9-10 TABLET BY ity of tablet 00:00: MOUTH 3 [place] 00 TIMES Medical DAILY Branch NEEDED FOR ANXIETY. hydrOXYzine 2021-0 Yes [id number] TAKE 1 U nivers 50 mg 9-10 TABLET BY ity of tablet 00:00: MOUTH 3 [place] 00 TIMES Medical DAILY Branch NEEDED FOR ANXIETY. hydrOXYzine 0 Yes [id number] TAKE 1 U nivers 50 mg 9-10 TABLET BY ity of tablet 00:00: MOUTH 3 [place] 00 TIMES Medical DAILY Branch NEEDED FOR ANXIETY. hydrOXYzine 0 Yes [id number] TAKE 1 U nivers 50 mg 9-10 TABLET BY ity of tablet 00:00: MOUTH 3 [place] 00 TIMES Medical DAILY Branch NEEDED FOR ANXIETY. hydrOXYzine 0 Yes [id number] TAKE 1 U nivers 50 mg 9-10 TABLET BY ity of tablet 00:00: MOUTH 3 [place] 00 TIMES Medical DAILY Branch NEEDED FOR ANXIETY. hydrOXYzine 0 Yes [id number] TAKE 1 U nivers 50 mg 9-10 TABLET BY ity of tablet 00:00: MOUTH 3 [place] 00 TIMES Medical DAILY Branch NEEDED FOR ANXIETY. hydrOXYzine 0 Yes [id number] TAKE 1 U nivers 50 mg 9-10 TABLET BY ity of tablet 00:00: MOUTH 3 [place] 00 TIMES Medical DAILY Branch NEEDED FOR ANXIETY. hydrOXYzine 0 Yes [id number] TAKE 1 U nivers 50 mg 9-10 TABLET BY ity of tablet 00:00: MOUTH 3 [place] 00 TIMES Medical DAILY Branch NEEDED FOR ANXIETY. hydrOXYzine 0 Yes [id number] TAKE 1 U nivers 50 mg 9-10 TABLET BY ity of tablet 00:00: MOUTH 3 [place] 00 TIMES Medical DAILY Branch NEEDED FOR ANXIETY. hydrOXYzine 0 Yes [id number] TAKE 1 U nivers 50 mg 9-10 TABLET BY ity of tablet 00:00: MOUTH 3 [place] 00 TIMES Medical DAILY Branch NEEDED FOR ANXIETY. hydrOXYzine 0 Yes [id number] TAKE 1 U nivers 50 mg 9-10 TABLET BY ity of tablet 00:00: MOUTH 3 [place] 00 TIMES Medical DAILY Branch NEEDED FOR ANXIETY. hydrOXYzine 0 Yes [id number] TAKE 1 U nivers 50 mg 9-10 TABLET BY ity of tablet 00:00: MOUTH 3 [place] 00 TIMES Medical DAILY Branch NEEDED FOR ANXIETY. hydrOXYzine 0 Yes [id number] TAKE 1 U nivers 50 mg 9-10 TABLET BY ity of tablet 00:00: MOUTH 3 [place] 00 TIMES Medical DAILY Branch NEEDED FOR ANXIETY. hydrOXYzine 0 Yes [id number] TAKE 1 U nivers 50 mg 9-10 TABLET BY ity of tablet 00:00: MOUTH 3 [place] 00 TIMES Medical DAILY Branch NEEDED FOR ANXIETY. hydrOXYzine 2021-0 Yes [id number] TAKE 1 [facility] n[facility] 50 mg 9-10 TABLET BY [facility] tablet 00:00: MOUTH 3 [place] 00 TIMES Medical DAILY Branch NEEDED FOR ANXIETY. hydrOXYzine 2021-0 Yes [id number] TAKE 1 [facility] nivers 50 mg 9-10 TABLET BY [facility] tablet 00:00: MOUTH 3 [place] 00 TIMES Medical DAILY Branch NEEDED FOR ANXIETY. hydrOXYzine 0 Yes [id number] TAKE 1 [facility] n[facility] 50 mg 9-10 TABLET BY [facility] tablet 00:00: MOUTH 3 [place] 00 TIMES Medical DAILY Branch NEEDED FOR ANXIETY. hydrOXYzine 2021-0 Yes [id number] TAKE 1 [facility] 50 mg 9-10 TABLET BY [facility] tablet 00:00: MOUTH 3 [place] 00 TIMES Medical DAILY Branch NEEDED FOR ANXIETY. hydrOXYzine 0 Yes [id number] TAKE 1 [facility] 50 mg 9-10 TABLET BY [facility] tablet 00:00: MOUTH 3 [place] 00 TIMES Medical DAILY Branch NEEDED FOR ANXIETY. hydrOXYzine 0 Yes [id number] TAKE 1 [facility] n[facility] 50 mg 9-10 TABLET BY [facility] tablet 00:00: MOUTH 3 [place] 00 TIMES Medical DAILY Branch NEEDED FOR ANXIETY. hydrOXYzine 0 Yes [id number] TAKE 1 [facility] 50 mg 9-10 TABLET BY [facility] tablet 00:00: MOUTH 3 [place] 00 TIMES Medical DAILY Branch NEEDED FOR ANXIETY. hydrOXYzine 2021-0 Yes [id number] TAKE 1 [facility] 50 mg 9-10 TABLET BY [facility] tablet 00:00: MOUTH 3 [place] 00 TIMES Medical DAILY Branch NEEDED FOR ANXIETY. hydrOXYzine 2021-0 Yes [id number] TAKE 1 [facility] n[facility] 50 mg 9-10 TABLET BY [facility] tablet 00:00: MOUTH 3 [place] 00 TIMES Medical DAILY Branch NEEDED FOR ANXIETY. hydrOXYzine 2021-0 Yes [id number] TAKE 1 [facility] n[facility] 50 mg 9-10 TABLET BY [facility] tablet 00:00: MOUTH 3 [place] 00 TIMES Medical DAILY Branch NEEDED FOR ANXIETY. hydrOXYzine 2021-0 Yes [id number] TAKE 1 [facility] n[facility] 50 mg 9-10 TABLET BY [facility] tablet 00:00: MOUTH 3 [place] 00 TIMES Medical DAILY Branch NEEDED FOR ANXIETY. hydrOXYzine 2021-0 Yes [id number] TAKE 1 [facility] 50 mg 9-10 TABLET BY [facility] tablet 00:00: MOUTH 3 [place] 00 TIMES Medical DAILY Branch NEEDED FOR ANXIETY. hydrOXYzine 2021-0 Yes [id number] TAKE 1 [facility] 50 mg 9-10 TABLET BY [facility] tablet 00:00: MOUTH 3 [place] 00 TIMES Medical DAILY Branch NEEDED FOR ANXIETY. hydrOXYzine 2021-0 Yes [id number] TAKE 1 [facility] 50 mg 9-10 TABLET BY [facility] tablet 00:00: MOUTH 3 [place] 00 TIMES Medical DAILY Branch NEEDED FOR ANXIETY. hydrOXYzine 2021-0 Yes [id number] TAKE 1 [facility] 50 mg 9-10 TABLET BY [facility] tablet 00:00: MOUTH 3 [place] 00 TIMES Medical DAILY Branch NEEDED FOR ANXIETY. hydrOXYzine 2021-0 Yes [id number] TAKE 1 [facility] 50 mg 9-10 TABLET BY [facility] tablet 00:00: MOUTH 3 [place] 00 TIMES Medical DAILY Branch NEEDED FOR ANXIETY. hydrOXYzine 2021-0 Yes [id number] TAKE 1 [facility] 50 mg 9-10 TABLET BY [facility] tablet 00:00: MOUTH 3 [place] 00 TIMES Medical DAILY Branch NEEDED FOR ANXIETY. hydrOXYzine 2021-0 Yes [id number] TAKE 1 [facility] 50 mg 9-10 TABLET BY [facility] tablet 00:00: MOUTH 3 [place] 00 TIMES Medical DAILY Branch NEEDED FOR ANXIETY. hydrOXYzine 2021-0 Yes [id number] TAKE 1 [facility] 50 mg 9-10 TABLET BY [facility] tablet 00:00: MOUTH 3 [place] 00 TIMES Medical DAILY Branch NEEDED FOR ANXIETY. traZODone 2021-0 Yes [id number] TAKE 1 [facility] 150 mg 9-08 TABLET BY [facility] tablet 00:00: MOUTH [place] 00 EVERYDAY Medical AT BEDTIME Branch venlafaxine 2021-0 Yes [id number] TAKE 2 [facility] 37.5 mg 9-08 TABLETS IN [facility] tablet 00:00: THE 00 MORNING Medical AND 1 Branch TABLET IN THE AFTERNOON AND TWO TABLETS AT NIGHT traZODone 2021-0 Yes [id number] TAKE 1 [facility] vers 150 mg 9-08 TABLET BY [facility] tablet 00:00: MOUTH [place] 00 EVERYDAY Medical AT BEDTIME Branch venlafaxine 2021-0 Yes [id number] TAKE 2 [facility] 37.5 mg 9-08 TABLETS IN [facility] tablet 00:00: THE MORNING Medical AND 1 Branch TABLET IN THE AFTERNOON AND TWO TABLETS AT NIGHT traZODone 2021-0 Yes [id number] TAKE 1 [facility] 150 mg 9-08 TABLET BY [facility] tablet 00:00: MOUTH EVERYDAY Medical AT BEDTIME Branch venlafaxine 2021-0 Yes [id number] TAKE 2 [facility] 37.5 mg 9-08 TABLETS IN [facility] tablet 00:00: THE MORNING Medical AND 1 Branch TABLET IN THE AFTERNOON AND TWO TABLETS AT NIGHT traZODone 2021-0 Yes [id number] TAKE 1 [facility] vers 150 mg 9-08 TABLET BY [facility] tablet 00:00: MOUTH EVERYDAY Medical AT BEDTIME Branch venlafaxine 2021-0 Yes [id number] TAKE 2 [facility] 37.5 mg 9-08 TABLETS IN [facility] tablet 00:00: THE MORNING Medical AND 1 Branch TABLET IN THE AFTERNOON AND TWO TABLETS AT NIGHT traZODone 2021-0 Yes [id number] TAKE 1 [facility] 150 mg 9-08 TABLET BY [facility] of tablet 00:00: MOUTH EVERYDAY Medical AT BEDTIME Branch venlafaxine 2021-0 Yes [id number] TAKE 2 [facility] 37.5 mg 9-08 TABLETS IN [facility] of tablet 00:00: THE MORNING Medical AND 1 Branch TABLET IN THE AFTERNOON AND TWO TABLETS AT NIGHT traZODone 2021-0 Yes [id number] TAKE 1 [facility] vers 150 mg 9-08 TABLET BY [facility] of tablet 00:00: [facility] EVERYDAY Medical AT BEDTIME Branch venlafaxine 2021-0 Yes [id number] TAKE 2 [facility] 37.5 mg 9-08 TABLETS IN ity of tablet 00:00: THE MORNING Medical AND 1 Branch TABLET IN THE AFTERNOON AND TWO TABLETS AT NIGHT traZODone 2-0 Yes [id number] TAKE 1 [facility] vers 150 mg 9-08 TABLET BY [facility] of tablet 00:00: MOUTH [place] EVERYDAY Medical AT BEDTIME Branch venlafaxine 2021-0 Yes [id number] TAKE 2 [facility] 37.5 mg 9-08 TABLETS IN ity of tablet 00:00: THE MORNING Medical AND 1 Branch TABLET IN THE AFTERNOON AND TWO TABLETS AT NIGHT traZODone 2022-0 Yes [id number] TAKE 1 [facility] vers 150 mg 9-08 TABLET BY [facility] tablet 00:00: MOUTH EVERYDAY Medical AT BEDTIME Branch venlafaxine 2021-0 Yes [id number] TAKE 2 [facility] 37.5 mg 9-08 TABLETS IN [facility] of tablet 00:00: THE MORNING Medical AND 1 Branch TABLET IN THE AFTERNOON AND TWO TABLETS AT NIGHT traZODone 2021-0 Yes [id number] TAKE 1 [facility] vers 150 mg 9-08 TABLET BY [facility] of tablet 00:00: MOUTH EVERYDAY Medical AT BEDTIME Branch venlafaxine 2021-0 Yes [id number] TAKE 2 [facility] 37.5 mg 9-08 TABLETS IN [facility] of tablet 00:00: THE MORNING Medical AND 1 Branch TABLET IN THE AFTERNOON AND TWO TABLETS AT NIGHT traZODone 2021-0 Yes [id number] TAKE 1 [facility] vers 150 mg 9-08 TABLET BY [facility] of tablet 00:00: MOUTH EVERYDAY Medical AT BEDTIME Branch venlafaxine 2021-0 Yes [id number] TAKE 2 [facility] 37.5 mg 9-08 TABLETS IN [facility] of tablet 00:00: THE MORNING Medical AND 1 Branch TABLET IN THE AFTERNOON AND TWO TABLETS AT NIGHT traZODone 2021-0 Yes [id number] TAKE 1 [facility] vers 150 mg 9-08 TABLET BY [facility] of tablet 00:00: MOUTH EVERYDAY Medical AT BEDTIME Branch venlafaxine 2021-0 Yes [id number] TAKE 2 [facility] 37.5 mg 9-08 TABLETS IN it[facility] of tablet 00:00: THE MORNING Medical AND 1 Branch TABLET IN THE AFTERNOON AND TWO TABLETS AT NIGHT traZODone 2021-0 Yes [id number] TAKE 1 [facility] vers 150 mg 9-08 TABLET BY [facility] of tablet 00:00: MOUTH EVERYDAY Medical AT BEDTIME Branch venlafaxine 2021-0 Yes [id number] TAKE 2 [facility] 37.5 mg 9-08 TABLETS IN [facility] of tablet 00:00: THE MORNING Medical AND 1 Branch TABLET IN THE AFTERNOON AND TWO TABLETS AT NIGHT traZODone 2021-0 Yes [id number] TAKE 1 [facility] vers 150 mg 9-08 TABLET BY [facility] of tablet 00:00: MOUTH EVERYDAY Medical AT BEDTIME Branch venlafaxine 2021-0 Yes [id number] TAKE 2 [facility] 37.5 mg 9-08 TABLETS IN [facility] of tablet 00:00: THE MORNING Medical AND 1 Branch TABLET IN THE AFTERNOON AND TWO TABLETS AT NIGHT traZODone 2021-0 Yes [id number] TAKE 1 [facility] vers 150 mg 9-08 TABLET BY [facility] of tablet 00:00: MOUTH EVERYDAY Medical AT BEDTIME Branch venlafaxine 2021-0 Yes [id number] TAKE 2 [facility] 37.5 mg 9-08 TABLETS IN [facility] of tablet 00:00: THE MORNING Medical AND 1 Branch TABLET IN THE AFTERNOON AND TWO TABLETS AT NIGHT traZODone 2021-0 Yes [id number] TAKE 1 [facility] vers 150 mg 9-08 TABLET BY [facility] of tablet 00:00: MOUTH EVERYDAY Medical AT BEDTIME Branch venlafaxine 2021-0 Yes [id number] TAKE 2 [facility] 37.5 mg 9-08 TABLETS IN [facility] of tablet 00:00: THE MORNING Medical AND 1 Branch TABLET IN THE AFTERNOON AND TWO TABLETS AT NIGHT traZODone 2021-0 Yes [id number] TAKE 1 [facility] vers 150 mg 9-08 TABLET BY [facility] of tablet 00:00: MOUTH EVERYDAY Medical AT BEDTIME Branch venlafaxine 2021-0 Yes [id number] TAKE 2 [facility] 37.5 mg 9-08 TABLETS IN ity of tablet 00:00: THE MORNING Medical AND 1 Branch TABLET IN THE AFTERNOON AND TWO TABLETS AT NIGHT traZODone 2021-0 Yes [id number] TAKE 1 [facility] vers 150 mg 9-08 TABLET BY it[facility] of tablet 00:00: [facility] EVERYDAY Medical AT BEDTIME Branch venlafaxine 2021-0 Yes [id number] TAKE 2 [facility] 37.5 mg 9-08 TABLETS IN ity of tablet 00:00: THE MORNING Medical AND 1 Branch TABLET IN THE AFTERNOON AND TWO TABLETS AT NIGHT traZODone 2021-0 Yes [id number] TAKE 1 [facility] vers 150 mg 9-08 TABLET BY it[facility] of tablet 00:00: MOUTH EVERYDAY Medical AT BEDTIME Branch venlafaxine 2021-0 Yes [id number] TAKE 2 [facility] 37.5 mg 9-08 TABLETS IN ity of tablet 00:00: THE MORNING Medical AND 1 Branch TABLET IN THE AFTERNOON AND TWO TABLETS AT NIGHT traZODone 2021-0 Yes [id number] TAKE 1 [facility] vers 150 mg 9-08 TABLET BY [facility] of tablet 00:00: MOUTH EVERYDAY Medical AT BEDTIME Branch venlafaxine 2021-0 Yes [id number] TAKE 2 [facility] 37.5 mg 9-08 TABLETS IN ity of tablet 00:00: THE MORNING Medical AND 1 Branch TABLET IN THE AFTERNOON AND TWO TABLETS AT NIGHT traZODone 2021-0 Yes [id number] TAKE 1 [facility] vers 150 mg 9-08 TABLET BY [facility] of tablet 00:00: MOUTH EVERYDAY Medical AT BEDTIME Branch venlafaxine 2021-0 Yes [id number] TAKE 2 [facility] 37.5 mg 9-08 TABLETS IN ity of tablet 00:00: THE MORNING Medical AND 1 Branch TABLET IN THE AFTERNOON AND TWO TABLETS AT NIGHT traZODone 2021-0 Yes [id number] TAKE 1 [facility] vers 150 mg 9-08 TABLET BY [facility] of tablet 00:00: MOUTH EVERYDAY Medical AT BEDTIME Branch venlafaxine 2021-0 Yes [id number] TAKE 2 [facility] 37.5 mg 9-08 TABLETS IN ity of tablet 00:00: THE MORNING Medical AND 1 Branch TABLET IN THE AFTERNOON AND TWO TABLETS AT NIGHT traZODone 2021-0 Yes [id number] TAKE 1 [facility] vers 150 mg 9-08 TABLET BY [facility] of tablet 00:00: MOUTH EVERYDAY Medical AT BEDTIME Branch venlafaxine 2021-0 Yes [id number] TAKE 2 [facility] 37.5 mg 9-08 TABLETS IN ity of tablet 00:00: THE MORNING Medical AND 1 Branch TABLET IN THE AFTERNOON AND TWO TABLETS AT NIGHT traZODone 2021-0 Yes [id number] TAKE 1 [facility] vers 150 mg 9-08 TABLET BY [facility] of tablet 00:00: MOUTH EVERYDAY Medical AT BEDTIME Branch venlafaxine 2021-0 Yes [id number] TAKE 2 [facility] 37.5 mg 9-08 TABLETS IN ity of tablet 00:00: THE MORNING Medical AND 1 Branch TABLET IN THE AFTERNOON AND TWO TABLETS AT NIGHT traZODone 2021-0 Yes [id number] TAKE 1 [facility] vers 150 mg 9-08 TABLET BY [facility] of tablet 00:00: MOUTH EVERYDAY Medical AT BEDTIME Branch venlafaxine 2021-0 Yes [id number] TAKE 2 [facility] 37.5 mg 9-08 TABLETS IN ity of tablet 00:00: THE MORNING Medical AND 1 Branch TABLET IN THE AFTERNOON AND TWO TABLETS AT NIGHT traZODone 2-0 Yes [id number] TAKE 1 [facility] vers 150 mg 9-08 TABLET BY ity of tablet 00:00: MOUTH [place] EVERYDAY Medical AT BEDTIME Branch venlafaxine 2021-0 Yes [id number] TAKE 2 [facility] 37.5 mg 9-08 TABLETS IN ity of tablet 00:00: THE MORNING Medical AND 1 Branch TABLET IN THE AFTERNOON AND TWO TABLETS AT NIGHT traZODone 2-0 Yes [id number] TAKE 1 [facility] vers 150 mg 9-08 TABLET BY ity of tablet 00:00: [facility] EVERYDAY Medical AT BEDTIME Branch venlafaxine 2021-0 Yes [id number] TAKE 2 [facility] 37.5 mg 9-08 TABLETS IN ity of tablet 00:00: THE MORNING Medical AND 1 Branch TABLET IN THE AFTERNOON AND TWO TABLETS AT NIGHT traZODone 2-0 Yes [id number] TAKE 1 [facility] vers 150 mg 9-08 TABLET BY ity of tablet 00:00: MOUTH EVERYDAY Medical AT BEDTIME Branch venlafaxine 2021-0 Yes [id number] TAKE 2 [facility] 37.5 mg 9-08 TABLETS IN ity of tablet 00:00: THE [place] MORNING Medical AND 1 Branch TABLET IN THE AFTERNOON AND TWO TABLETS AT NIGHT traZODone 2021-0 Yes [id number] TAKE 1 [facility] vers 150 mg 9-08 TABLET BY ity of tablet 00:00: [facility] EVERYDAY Medical AT BEDTIME Branch venlafaxine 2021-0 Yes [id number] TAKE 2 [facility] 37.5 mg 9-08 TABLETS IN ity of tablet 00:00: THE [place] MORNING Medical AND 1 Branch TABLET IN THE AFTERNOON AND TWO TABLETS AT NIGHT traZODone 2-0 Yes [id number] TAKE 1 [facility] vers 150 mg 9-08 TABLET BY ity of tablet 00:00: [facility] EVERYDAY Medical AT BEDTIME Branch venlafaxine 2021-0 Yes [id number] TAKE 2 [facility] 37.5 mg 9-08 TABLETS IN ity of tablet 00:00: THE [place] MORNING Medical AND 1 Branch TABLET IN THE AFTERNOON AND TWO TABLETS AT NIGHT traZODone 2-0 Yes [id number] TAKE 1 [facility] vers 150 mg 9-08 TABLET BY ity of tablet 00:00: MOUTH EVERYDAY Medical AT BEDTIME Branch venlafaxine 2021-0 Yes [id number] TAKE 2 [facility] 37.5 mg 9-08 TABLETS IN ity of tablet 00:00: THE MORNING Medical AND 1 Branch TABLET IN THE AFTERNOON AND TWO TABLETS AT NIGHT traZODone 2-0 Yes [id number] TAKE 1 [facility] vers 150 mg 9-08 TABLET BY [facility] of tablet 00:00: MOUTH EVERYDAY Medical AT BEDTIME Branch venlafaxine 2021-0 Yes [id number] TAKE 2 [facility] 37.5 mg 9-08 TABLETS IN ity of tablet 00:00: THE MORNING Medical AND 1 Branch TABLET IN THE AFTERNOON AND TWO TABLETS AT NIGHT traZODone 2021-0 Yes [id number] TAKE 1 [facility] vers 150 mg 9-08 TABLET BY [facility] of tablet 00:00: MOUTH EVERYDAY Medical AT BEDTIME Branch venlafaxine 2021-0 Yes [id number] TAKE 2 [facility] 37.5 mg 9-08 TABLETS IN ity of tablet 00:00: THE MORNING Medical AND 1 Branch TABLET IN THE AFTERNOON AND TWO TABLETS AT NIGHT traZODone 2021-0 Yes [id number] TAKE 1 [facility] vers 150 mg 9-08 TABLET BY ity of tablet 00:00: MOUTH EVERYDAY Medical AT BEDTIME Branch venlafaxine 2021-0 Yes [id number] TAKE 2 [facility] 37.5 mg 9-08 TABLETS IN ity of tablet 00:00: THE MORNING Medical AND 1 Branch TABLET IN THE AFTERNOON AND TWO TABLETS AT NIGHT traZODone 2-0 Yes [id number] TAKE 1 [facility] vers 150 mg 9-08 TABLET BY ity of tablet 00:00: MOUTH EVERYDAY Medical AT BEDTIME Branch venlafaxine 2021-0 Yes [id number] TAKE 2 [facility] 37.5 mg 9-08 TABLETS IN ity of tablet 00:00: THE MORNING Medical AND 1 Branch TABLET IN THE AFTERNOON AND TWO TABLETS AT NIGHT traZODone 2-0 Yes [id number] TAKE 1 [facility] vers 150 mg 9-08 TABLET BY ity of tablet 00:00: MOUTH EVERYDAY Medical AT BEDTIME Branch venlafaxine 2021-0 Yes [id number] TAKE 2 [facility] 37.5 mg 9-08 TABLETS IN ity of tablet 00:00: THE MORNING Medical AND 1 Branch TABLET IN THE AFTERNOON AND TWO TABLETS AT NIGHT traZODone 2-0 Yes [id number] TAKE 1 [facility] vers 150 mg 9-08 TABLET BY ity of tablet 00:00: MOUTH EVERYDAY Medical AT BEDTIME Branch venlafaxine 2021-0 Yes [id number] TAKE 2 [facility] 37.5 mg 9-08 TABLETS IN ity of tablet 00:00: THE MORNING Medical AND 1 Branch TABLET IN THE AFTERNOON AND TWO TABLETS AT NIGHT traZODone 2021-0 Yes [id number] TAKE 1 [facility] vers 150 mg 9-08 TABLET BY ity of tablet 00:00: MOUTH EVERYDAY Medical AT BEDTIME Branch venlafaxine 2021-0 Yes [id number] TAKE 2 [facility] 37.5 mg 9-08 TABLETS IN ity of tablet 00:00: THE MORNING Medical AND 1 Branch TABLET IN THE AFTERNOON AND TWO TABLETS AT NIGHT traZODone 2021-0 Yes [id number] TAKE 1 [facility] vers 150 mg 9-08 TABLET BY ity of tablet 00:00: [facility] EVERYDAY Medical AT BEDTIME Branch venlafaxine 2021-0 Yes [id number] TAKE 2 [facility] 37.5 mg 9-08 TABLETS IN ity of tablet 00:00: THE MORNING Medical AND 1 Branch TABLET IN THE AFTERNOON AND TWO TABLETS AT NIGHT traZODone 2021-0 Yes [id number] TAKE 1 [facility] vers 150 mg 9-08 TABLET BY ity of tablet 00:00: [facility] EVERYDAY Medical AT BEDTIME Branch venlafaxine 2021-0 Yes [id number] TAKE 2 [facility] 37.5 mg 9-08 TABLETS IN ity of tablet 00:00: THE MORNING Medical AND 1 Branch TABLET IN THE AFTERNOON AND TWO TABLETS AT NIGHT traZODone 2-0 Yes [id number] TAKE 1 [facility] vers 150 mg 9-08 TABLET BY ity of tablet 00:00: [facility] EVERYDAY Medical AT BEDTIME Branch venlafaxine 2021-0 Yes [id number] TAKE 2 [facility] 37.5 mg 9-08 TABLETS IN ity of tablet 00:00: THE MORNING Medical AND 1 Branch TABLET IN THE AFTERNOON AND TWO TABLETS AT NIGHT traZODone 2-0 Yes [id number] TAKE 1 [facility] vers 150 mg 9-08 TABLET BY ity of tablet 00:00: MOUTH EVERYDAY Medical AT BEDTIME Branch venlafaxine 2021-0 Yes [id number] TAKE 2 [facility] 37.5 mg 9-08 TABLETS IN ity of tablet 00:00: THE MORNING Medical AND 1 Branch TABLET IN THE AFTERNOON AND TWO TABLETS AT NIGHT traZODone 2-0 Yes [id number] TAKE 1 [facility] vers 150 mg 9-08 TABLET BY ity of tablet 00:00: MOUTH EVERYDAY Medical AT BEDTIME Branch venlafaxine 2021-0 Yes [id number] TAKE 2 [facility] 37.5 mg 9-08 TABLETS IN ity of tablet 00:00: THE MORNING Medical AND 1 Branch TABLET IN THE AFTERNOON AND TWO TABLETS AT NIGHT traZODone 2021-0 Yes [id number] TAKE 1 [facility] vers 150 mg 9-08 TABLET BY ity of tablet 00:00: MOUTH EVERYDAY Medical AT BEDTIME Branch venlafaxine 2021-0 Yes [id number] TAKE 2 [facility] 37.5 mg 9-08 TABLETS IN ity of tablet 00:00: THE MORNING Medical AND 1 Branch TABLET IN THE AFTERNOON AND TWO TABLETS AT NIGHT traZODone 2-0 Yes [id number] TAKE 1 [facility] vers 150 mg 9-08 TABLET BY ity of tablet 00:00: [facility] EVERYDAY Medical AT BEDTIME Branch venlafaxine 2021-0 Yes [id number] TAKE 2 [facility] 37.5 mg 9-08 TABLETS IN ity of tablet 00:00: THE MORNING Medical AND 1 Branch TABLET IN THE AFTERNOON AND TWO TABLETS AT NIGHT traZODone 2-0 Yes [id number] TAKE 1 [facility] vers 150 mg 9-08 TABLET BY ity of tablet 00:00: [facility] EVERYDAY Medical AT BEDTIME Branch venlafaxine 2021-0 Yes [id number] TAKE 2 [facility] 37.5 mg 9-08 TABLETS IN ity of tablet 00:00: THE MORNING Medical AND 1 Branch TABLET IN THE AFTERNOON AND TWO TABLETS AT NIGHT traZODone 2-0 Yes [id number] TAKE 1 [facility] vers 150 mg 9-08 TABLET BY ity of tablet 00:00: MOUTH EVERYDAY Medical AT BEDTIME Branch venlafaxine 2021-0 Yes [id number] TAKE 2 [facility] 37.5 mg 9-08 TABLETS IN ity of tablet 00:00: THE MORNING Medical AND 1 Branch TABLET IN THE AFTERNOON AND TWO TABLETS AT NIGHT traZODone 2-0 Yes [id number] TAKE 1 [facility] vers 150 mg 9-08 TABLET BY ity of tablet 00:00: MOUTH EVERYDAY Medical AT BEDTIME Branch venlafaxine 2021-0 Yes [id number] TAKE 2 [facility] 37.5 mg 9-08 TABLETS IN ity of tablet 00:00: THE MORNING Medical AND 1 Branch TABLET IN THE AFTERNOON AND TWO TABLETS AT NIGHT traZODone 2021-0 Yes [id number] TAKE 1 [facility] vers 150 mg 9-08 TABLET BY it[facility] of tablet 00:00: MOUTH EVERYDAY Medical AT BEDTIME Branch venlafaxine 2021-0 Yes [id number] TAKE 2 [facility] 37.5 mg 9-08 TABLETS IN ity of tablet 00:00: THE MORNING Medical AND 1 Branch TABLET IN THE AFTERNOON AND TWO TABLETS AT NIGHT traZODone 2021-0 Yes [id number] TAKE 1 [facility] vers 150 mg 9-08 TABLET BY ity of tablet 00:00: [facility] EVERYDAY Medical AT BEDTIME Branch venlafaxine 2021-0 Yes [id number] TAKE 2 [facility] 37.5 mg 9-08 TABLETS IN ity of tablet 00:00: THE MORNING Medical AND 1 Branch TABLET IN THE AFTERNOON AND TWO TABLETS AT NIGHT traZODone 2021-0 Yes [id number] TAKE 1 [facility] vers 150 mg 9-08 TABLET BY ity of tablet 00:00: [facility] EVERYDAY Medical AT BEDTIME Branch venlafaxine 2021-0 Yes [id number] TAKE 2 [facility] 37.5 mg 9-08 TABLETS IN ity of tablet 00:00: THE MORNING Medical AND 1 Branch TABLET IN THE AFTERNOON AND TWO TABLETS AT NIGHT traZODone 2021-0 Yes [id number] TAKE 1 [facility] vers 150 mg 9-08 TABLET BY ity of tablet 00:00: [facility] EVERYDAY Medical AT BEDTIME Branch venlafaxine 2021-0 Yes [id number] TAKE 2 [facility] 37.5 mg 9-08 TABLETS IN ity of tablet 00:00: THE MORNING Medical AND 1 Branch TABLET IN THE AFTERNOON AND TWO TABLETS AT NIGHT traZODone 2-0 Yes [id number] TAKE 1 [facility] vers 150 mg 9-08 TABLET BY ity of tablet 00:00: MOUTH EVERYDAY Medical AT BEDTIME Branch venlafaxine 2021-0 Yes [id number] TAKE 2 [facility] 37.5 mg 9-08 TABLETS IN ity of tablet 00:00: THE MORNING Medical AND 1 Branch TABLET IN THE AFTERNOON AND TWO TABLETS AT NIGHT traZODone 2021-0 Yes [id number] TAKE 1 [facility] vers 150 mg 9-08 TABLET BY ity of tablet 00:00: MOUTH EVERYDAY Medical AT BEDTIME Branch venlafaxine 2021-0 Yes [id number] TAKE 2 [facility] 37.5 mg 9-08 TABLETS IN ity of tablet 00:00: THE MORNING Medical AND 1 Branch TABLET IN THE AFTERNOON AND TWO TABLETS AT NIGHT traZODone 2021-0 Yes [id number] TAKE 1 [facility] vers 150 mg 9-08 TABLET BY ity of tablet 00:00: MOUTH EVERYDAY Medical AT BEDTIME Branch venlafaxine 2021-0 Yes [id number] TAKE 2 [facility] 37.5 mg 9-08 TABLETS IN ity of tablet 00:00: THE MORNING Medical AND 1 Branch TABLET IN THE AFTERNOON AND TWO TABLETS AT NIGHT traZODone 2021-0 Yes [id number] TAKE 1 [facility] vers 150 mg 9-08 TABLET BY ity of tablet 00:00: MOUTH EVERYDAY Medical AT BEDTIME Branch venlafaxine 2021-0 Yes [id number] TAKE 2 [facility] 37.5 mg 9-08 TABLETS IN ity of tablet 00:00: THE MORNING Medical AND 1 Branch TABLET IN THE AFTERNOON AND TWO TABLETS AT NIGHT traZODone 2021-0 Yes [id number] TAKE 1 [facility] vers 150 mg 9-08 TABLET BY ity of tablet 00:00: [facility] EVERYDAY Medical AT BEDTIME Branch venlafaxine 2021-0 Yes [id number] TAKE 2 [facility] 37.5 mg 9-08 TABLETS IN ity of tablet 00:00: THE MORNING Medical AND 1 Branch TABLET IN THE AFTERNOON AND TWO TABLETS AT NIGHT traZODone 2-0 Yes [id number] TAKE 1 [facility] vers 150 mg 9-08 TABLET BY ity of tablet 00:00: MOUTH [place] EVERYDAY Medical AT BEDTIME Branch venlafaxine 2021-0 Yes [id number] TAKE 2 [facility] 37.5 mg 9-08 TABLETS IN ity of tablet 00:00: THE MORNING Medical AND 1 Branch TABLET IN THE AFTERNOON AND TWO TABLETS AT NIGHT traZODone 2022-0 Yes [id number] TAKE 1 [facility] vers 150 mg 9-08 TABLET BY ity of tablet 00:00: MOUTH EVERYDAY Medical AT BEDTIME Branch venlafaxine 2021-0 Yes [id number] TAKE 2 [facility] 37.5 mg 9-08 TABLETS IN ity of tablet 00:00: THE MORNING Medical AND 1 Branch TABLET IN THE AFTERNOON AND TWO TABLETS AT NIGHT traZODone 2021-0 Yes [id number] TAKE 1 [facility] vers 150 mg 9-08 TABLET BY ity of tablet 00:00: MOUTH EVERYDAY Medical AT BEDTIME Branch venlafaxine 2021-0 Yes [id number] TAKE 2 [facility] 37.5 mg 9-08 TABLETS IN ity of tablet 00:00: THE MORNING Medical AND 1 Branch TABLET IN THE AFTERNOON AND TWO TABLETS AT NIGHT traZODone 2021-0 Yes [id number] TAKE 1 [facility] vers 150 mg 9-08 TABLET BY ity of tablet 00:00: MOUTH EVERYDAY Medical AT BEDTIME Branch venlafaxine 2021-0 Yes [id number] TAKE 2 [facility] 37.5 mg 9-08 TABLETS IN ity of tablet 00:00: THE MORNING Medical AND 1 Branch TABLET IN THE AFTERNOON AND TWO TABLETS AT NIGHT traZODone 2021-0 Yes [id number] TAKE 1 [facility] vers 150 mg 9-08 TABLET BY ity of tablet 00:00: MOUTH EVERYDAY Medical AT BEDTIME Branch venlafaxine 2021-0 Yes [id number] TAKE 2 [facility] 37.5 mg 9-08 TABLETS IN ity of tablet 00:00: THE MORNING Medical AND 1 Branch TABLET IN THE AFTERNOON AND TWO TABLETS AT NIGHT traZODone 2021-0 Yes [id number] TAKE 1 [facility] vers 150 mg 9-08 TABLET BY ity of tablet 00:00: MOUTH EVERYDAY Medical AT BEDTIME Branch venlafaxine 2021-0 Yes [id number] TAKE 2 [facility] 37.5 mg 9-08 TABLETS IN ity of tablet 00:00: THE MORNING Medical AND 1 Branch TABLET IN THE AFTERNOON AND TWO TABLETS AT NIGHT traZODone 2021-0 Yes [id number] TAKE 1 [facility] vers 150 mg 9-08 TABLET BY ity of tablet 00:00: MOUTH EVERYDAY Medical AT BEDTIME Branch venlafaxine 2021-0 Yes [id number] TAKE 2 [facility] 37.5 mg 9-08 TABLETS IN ity of tablet 00:00: THE MORNING Medical AND 1 Branch TABLET IN THE AFTERNOON AND TWO TABLETS AT NIGHT traZODone 2021-0 Yes [id number] TAKE 1 [facility] vers 150 mg 9-08 TABLET BY ity of tablet 00:00: MOUTH EVERYDAY Medical AT BEDTIME Branch venlafaxine 2021-0 Yes [id number] TAKE 2 [facility] 37.5 mg 9-08 TABLETS IN ity of tablet 00:00: THE MORNING Medical AND 1 Branch TABLET IN THE AFTERNOON AND TWO TABLETS AT NIGHT traZODone 2021-0 Yes [id number] TAKE 1 [facility] vers 150 mg 9-08 TABLET BY ity of tablet 00:00: MOUTH EVERYDAY Medical AT BEDTIME Branch venlafaxine 2021-0 Yes [id number] TAKE 2 [facility] 37.5 mg 9-08 TABLETS IN ity of tablet 00:00: THE MORNING Medical AND 1 Branch TABLET IN THE AFTERNOON AND TWO TABLETS AT NIGHT traZODone 2021-0 Yes [id number] TAKE 1 [facility] vers 150 mg 9-08 TABLET BY ity of tablet 00:00: MOUTH EVERYDAY Medical AT BEDTIME Branch venlafaxine 2021-0 Yes [id number] TAKE 2 [facility] 37.5 mg 9-08 TABLETS IN ity of tablet 00:00: THE MORNING Medical AND 1 Branch TABLET IN THE AFTERNOON AND TWO TABLETS AT NIGHT traZODone 2021-0 Yes [id number] TAKE 1 [facility] vers 150 mg 9-08 TABLET BY ity of tablet 00:00: [facility] EVERYDAY Medical AT BEDTIME Branch venlafaxine 2021-0 Yes [id number] TAKE 2 [facility] 37.5 mg 9-08 TABLETS IN ity of tablet 00:00: THE MORNING Medical AND 1 Branch TABLET IN THE AFTERNOON AND TWO TABLETS AT NIGHT traZODone 2021-0 Yes [id number] TAKE 1 [facility] vers 150 mg 9-08 TABLET BY ity of tablet 00:00: MOUTH EVERYDAY Medical AT BEDTIME Branch venlafaxine 2021-0 Yes [id number] TAKE 2 [facility] 37.5 mg 9-08 TABLETS IN ity of tablet 00:00: THE MORNING Medical AND 1 Branch TABLET IN THE AFTERNOON AND TWO TABLETS AT NIGHT traZODone 2021-0 Yes [id number] TAKE 1 [facility] vers 150 mg 9-08 TABLET BY ity of tablet 00:00: MOUTH EVERYDAY Medical AT BEDTIME Branch venlafaxine 2021-0 Yes [id number] TAKE 2 [facility] 37.5 mg 9-08 TABLETS IN ity of tablet 00:00: THE MORNING Medical AND 1 Branch TABLET IN THE AFTERNOON AND TWO TABLETS AT NIGHT traZODone 2021-0 Yes [id number] TAKE 1 [facility] vers 150 mg 9-08 TABLET BY ity of tablet 00:00: MOUTH EVERYDAY Medical AT BEDTIME Branch venlafaxine 2021-0 Yes [id number] TAKE 2 [facility] 37.5 mg 9-08 TABLETS IN ity of tablet 00:00: THE MORNING Medical AND 1 Branch TABLET IN THE AFTERNOON AND TWO TABLETS AT NIGHT traZODone 2021-0 Yes [id number] TAKE 1 [facility] vers 150 mg 9-08 TABLET BY ity of tablet 00:00: MOUTH EVERYDAY Medical AT BEDTIME Branch venlafaxine 2021-0 Yes [id number] TAKE 2 [facility] 37.5 mg 9-08 TABLETS IN ity of tablet 00:00: THE MORNING Medical AND 1 Branch TABLET IN THE AFTERNOON AND TWO TABLETS AT NIGHT traZODone 2021-0 Yes [id number] TAKE 1 [facility] vers 150 mg 9-08 TABLET BY ity of tablet 00:00: MOUTH EVERYDAY Medical AT BEDTIME Branch venlafaxine 2021-0 Yes [id number] TAKE 2 [facility] 37.5 mg 9-08 TABLETS IN ity of tablet 00:00: THE MORNING Medical AND 1 Branch TABLET IN THE AFTERNOON AND TWO TABLETS AT NIGHT traZODone 2021-0 Yes [id number] TAKE 1 [facility] vers 150 mg 9-08 TABLET BY ity of tablet 00:00: MOUTH EVERYDAY Medical AT BEDTIME Branch venlafaxine 2021-0 Yes [id number] TAKE 2 [facility] 37.5 mg 9-08 TABLETS IN ity of tablet 00:00: THE MORNING Medical AND 1 Branch TABLET IN THE AFTERNOON AND TWO TABLETS AT NIGHT traZODone 2021-0 Yes [id number] TAKE 1 [facility] vers 150 mg 9-08 TABLET BY ity of tablet 00:00: MOUTH EVERYDAY Medical AT BEDTIME Branch venlafaxine 2021-0 Yes [id number] TAKE 2 [facility] 37.5 mg 9-08 TABLETS IN ity of tablet 00:00: THE MORNING Medical AND 1 Branch TABLET IN THE AFTERNOON AND TWO TABLETS AT NIGHT traZODone 2-0 Yes [id number] TAKE 1 [facility] vers 150 mg 9-08 TABLET BY ity of tablet 00:00: MOUTH [place] EVERYDAY Medical AT BEDTIME Branch venlafaxine 2021-0 Yes [id number] TAKE 2 [facility] 37.5 mg 9-08 TABLETS IN ity of tablet 00:00: THE MORNING Medical AND 1 Branch TABLET IN THE AFTERNOON AND TWO TABLETS AT NIGHT traZODone 2-0 Yes [id number] TAKE 1 [facility] vers 150 mg 9-08 TABLET BY ity of tablet 00:00: [facility] EVERYDAY Medical AT BEDTIME Branch venlafaxine 2021-0 Yes [id number] TAKE 2 [facility] 37.5 mg 9-08 TABLETS IN ity of tablet 00:00: THE MORNING Medical AND 1 Branch TABLET IN THE AFTERNOON AND TWO TABLETS AT NIGHT traZODone 2-0 Yes [id number] TAKE 1 [facility] vers 150 mg 9-08 TABLET BY ity of tablet 00:00: MOUTH EVERYDAY Medical AT BEDTIME Branch venlafaxine 2021-0 Yes [id number] TAKE 2 [facility] 37.5 mg 9-08 TABLETS IN ity of tablet 00:00: THE [place] MORNING Medical AND 1 Branch TABLET IN THE AFTERNOON AND TWO TABLETS AT NIGHT traZODone 2021-0 Yes [id number] TAKE 1 [facility] vers 150 mg 9-08 TABLET BY ity of tablet 00:00: [facility] EVERYDAY Medical AT BEDTIME Branch venlafaxine 2021-0 Yes [id number] TAKE 2 [facility] 37.5 mg 9-08 TABLETS IN ity of tablet 00:00: THE [place] MORNING Medical AND 1 Branch TABLET IN THE AFTERNOON AND TWO TABLETS AT NIGHT traZODone 2-0 Yes [id number] TAKE 1 [facility] vers 150 mg 9-08 TABLET BY ity of tablet 00:00: [facility] EVERYDAY Medical AT BEDTIME Branch venlafaxine 2021-0 Yes [id number] TAKE 2 [facility] 37.5 mg 9-08 TABLETS IN ity of tablet 00:00: THE [place] MORNING Medical AND 1 Branch TABLET IN THE AFTERNOON AND TWO TABLETS AT NIGHT traZODone 2-0 Yes [id number] TAKE 1 [facility] vers 150 mg 9-08 TABLET BY ity of tablet 00:00: MOUTH EVERYDAY Medical AT BEDTIME Branch venlafaxine 2021-0 Yes [id number] TAKE 2 [facility] 37.5 mg 9-08 TABLETS IN ity of tablet 00:00: THE MORNING Medical AND 1 Branch TABLET IN THE AFTERNOON AND TWO TABLETS AT NIGHT traZODone 2-0 Yes [id number] TAKE 1 [facility] vers 150 mg 9-08 TABLET BY ity of tablet 00:00: MOUTH EVERYDAY Medical AT BEDTIME Branch venlafaxine 2021-0 Yes [id number] TAKE 2 [facility] 37.5 mg 9-08 TABLETS IN ity of tablet 00:00: THE MORNING Medical AND 1 Branch TABLET IN THE AFTERNOON AND TWO TABLETS AT NIGHT traZODone 2021-0 Yes [id number] TAKE 1 [facility] vers 150 mg 9-08 TABLET BY ity of tablet 00:00: MOUTH EVERYDAY Medical AT BEDTIME Branch venlafaxine 2021-0 Yes [id number] TAKE 2 [facility] 37.5 mg 9-08 TABLETS IN ity of tablet 00:00: THE MORNING Medical AND 1 Branch TABLET IN THE AFTERNOON AND TWO TABLETS AT NIGHT traZODone 2021-0 Yes [id number] TAKE 1 [facility] vers 150 mg 9-08 TABLET BY ity of tablet 00:00: MOUTH EVERYDAY Medical AT BEDTIME Branch venlafaxine 2021-0 Yes [id number] TAKE 2 [facility] 37.5 mg 9-08 TABLETS IN ity of tablet 00:00: THE MORNING Medical AND 1 Branch TABLET IN THE AFTERNOON AND TWO TABLETS AT NIGHT traZODone 2-0 Yes [id number] TAKE 1 [facility] vers 150 mg 9-08 TABLET BY ity of tablet 00:00: MOUTH EVERYDAY Medical AT BEDTIME Branch venlafaxine 2021-0 Yes [id number] TAKE 2 [facility] 37.5 mg 9-08 TABLETS IN ity of tablet 00:00: THE MORNING Medical AND 1 Branch TABLET IN THE AFTERNOON AND TWO TABLETS AT NIGHT traZODone 2-0 Yes [id number] TAKE 1 [facility] vers 150 mg 9-08 TABLET BY ity of tablet 00:00: MOUTH EVERYDAY Medical AT BEDTIME Branch venlafaxine 2021-0 Yes [id number] TAKE 2 [facility] 37.5 mg 9-08 TABLETS IN ity of tablet 00:00: THE MORNING Medical AND 1 Branch TABLET IN THE AFTERNOON AND TWO TABLETS AT NIGHT traZODone 2-0 Yes [id number] TAKE 1 [facility] vers 150 mg 9-08 TABLET BY ity of tablet 00:00: MOUTH EVERYDAY Medical AT BEDTIME Branch venlafaxine 2021-0 Yes [id number] TAKE 2 [facility] 37.5 mg 9-08 TABLETS IN ity of tablet 00:00: THE MORNING Medical AND 1 Branch TABLET IN THE AFTERNOON AND TWO TABLETS AT NIGHT traZODone 2021-0 Yes [id number] TAKE 1 [facility] vers 150 mg 9-08 TABLET BY ity of tablet 00:00: MOUTH EVERYDAY Medical AT BEDTIME Branch venlafaxine 2021-0 Yes [id number] TAKE 2 [facility] 37.5 mg 9-08 TABLETS IN ity of tablet 00:00: THE MORNING Medical AND 1 Branch TABLET IN THE AFTERNOON AND TWO TABLETS AT NIGHT traZODone 2021-0 Yes [id number] TAKE 1 [facility] vers 150 mg 9-08 TABLET BY ity of tablet 00:00: [facility] EVERYDAY Medical AT BEDTIME Branch venlafaxine 2021-0 Yes [id number] TAKE 2 [facility] 37.5 mg 9-08 TABLETS IN ity of tablet 00:00: THE MORNING Medical AND 1 Branch TABLET IN THE AFTERNOON AND TWO TABLETS AT NIGHT traZODone 2021-0 Yes [id number] TAKE 1 [facility] vers 150 mg 9-08 TABLET BY ity of tablet 00:00: [facility] EVERYDAY Medical AT BEDTIME Branch venlafaxine 2021-0 Yes [id number] TAKE 2 [facility] 37.5 mg 9-08 TABLETS IN ity of tablet 00:00: THE MORNING Medical AND 1 Branch TABLET IN THE AFTERNOON AND TWO TABLETS AT NIGHT traZODone 2-0 Yes [id number] TAKE 1 [facility] vers 150 mg 9-08 TABLET BY ity of tablet 00:00: [facility] EVERYDAY Medical AT BEDTIME Branch venlafaxine 2021-0 Yes [id number] TAKE 2 [facility] 37.5 mg 9-08 TABLETS IN ity of tablet 00:00: THE MORNING Medical AND 1 Branch TABLET IN THE AFTERNOON AND TWO TABLETS AT NIGHT traZODone 2-0 Yes [id number] TAKE 1 [facility] vers 150 mg 9-08 TABLET BY ity of tablet 00:00: MOUTH EVERYDAY Medical AT BEDTIME Branch venlafaxine 2021-0 Yes [id number] TAKE 2 [facility] 37.5 mg 9-08 TABLETS IN ity of tablet 00:00: THE MORNING Medical AND 1 Branch TABLET IN THE AFTERNOON AND TWO TABLETS AT NIGHT traZODone 2-0 Yes [id number] TAKE 1 [facility] vers 150 mg 9-08 TABLET BY ity of tablet 00:00: MOUTH EVERYDAY Medical AT BEDTIME Branch venlafaxine 2021-0 Yes [id number] TAKE 2 [facility] 37.5 mg 9-08 TABLETS IN ity of tablet 00:00: THE MORNING Medical AND 1 Branch TABLET IN THE AFTERNOON AND TWO TABLETS AT NIGHT traZODone 2021-0 Yes [id number] TAKE 1 [facility] vers 150 mg 9-08 TABLET BY ity of tablet 00:00: MOUTH EVERYDAY Medical AT BEDTIME Branch venlafaxine 2021-0 Yes [id number] TAKE 2 [facility] 37.5 mg 9-08 TABLETS IN ity of tablet 00:00: THE MORNING Medical AND 1 Branch TABLET IN THE AFTERNOON AND TWO TABLETS AT NIGHT traZODone 2-0 Yes [id number] TAKE 1 [facility] vers 150 mg 9-08 TABLET BY ity of tablet 00:00: [facility] EVERYDAY Medical AT BEDTIME Branch venlafaxine 2021-0 Yes [id number] TAKE 2 [facility] 37.5 mg 9-08 TABLETS IN ity of tablet 00:00: THE MORNING Medical AND 1 Branch TABLET IN THE AFTERNOON AND TWO TABLETS AT NIGHT traZODone 2-0 Yes [id number] TAKE 1 [facility] vers 150 mg 9-08 TABLET BY ity of tablet 00:00: [facility] EVERYDAY Medical AT BEDTIME Branch venlafaxine 2021-0 Yes [id number] TAKE 2 [facility] 37.5 mg 9-08 TABLETS IN ity of tablet 00:00: THE MORNING Medical AND 1 Branch TABLET IN THE AFTERNOON AND TWO TABLETS AT NIGHT traZODone 2-0 Yes [id number] TAKE 1 [facility] vers 150 mg 9-08 TABLET BY ity of tablet 00:00: MOUTH EVERYDAY Medical AT BEDTIME Branch venlafaxine 2021-0 Yes [id number] TAKE 2 [facility] 37.5 mg 9-08 TABLETS IN ity of tablet 00:00: THE MORNING Medical AND 1 Branch TABLET IN THE AFTERNOON AND TWO TABLETS AT NIGHT traZODone 2-0 Yes [id number] TAKE 1 [facility] vers 150 mg 9-08 TABLET BY ity of tablet 00:00: MOUTH EVERYDAY Medical AT BEDTIME Branch venlafaxine 2021-0 Yes [id number] TAKE 2 [facility] 37.5 mg 9-08 TABLETS IN ity of tablet 00:00: THE MORNING Medical AND 1 Branch TABLET IN THE AFTERNOON AND TWO TABLETS AT NIGHT traZODone 2021-0 Yes [id number] TAKE 1 [facility] vers 150 mg 9-08 TABLET BY ity of tablet 00:00: MOUTH EVERYDAY Medical AT BEDTIME Branch venlafaxine 2021-0 Yes [id number] TAKE 2 [facility] 37.5 mg 9-08 TABLETS IN ity of tablet 00:00: THE MORNING Medical AND 1 Branch TABLET IN THE AFTERNOON AND TWO TABLETS AT NIGHT traZODone 2021-0 Yes [id number] TAKE 1 [facility] vers 150 mg 9-08 TABLET BY ity of tablet 00:00: [facility] EVERYDAY Medical AT BEDTIME Branch venlafaxine 2021-0 Yes [id number] TAKE 2 [facility] 37.5 mg 9-08 TABLETS IN ity of tablet 00:00: THE MORNING Medical AND 1 Branch TABLET IN THE AFTERNOON AND TWO TABLETS AT NIGHT traZODone 2021-0 Yes [id number] TAKE 1 [facility] vers 150 mg 9-08 TABLET BY ity of tablet 00:00: [facility] EVERYDAY Medical AT BEDTIME Branch venlafaxine 2021-0 Yes [id number] TAKE 2 [facility] 37.5 mg 9-08 TABLETS IN ity of tablet 00:00: THE MORNING Medical AND 1 Branch TABLET IN THE AFTERNOON AND TWO TABLETS AT NIGHT traZODone 2021-0 Yes [id number] TAKE 1 [facility] vers 150 mg 9-08 TABLET BY ity of tablet 00:00: [facility] EVERYDAY Medical AT BEDTIME Branch venlafaxine 2021-0 Yes [id number] TAKE 2 [facility] 37.5 mg 9-08 TABLETS IN ity of tablet 00:00: THE MORNING Medical AND 1 Branch TABLET IN THE AFTERNOON AND TWO TABLETS AT NIGHT traZODone 2-0 Yes [id number] TAKE 1 [facility] vers 150 mg 9-08 TABLET BY ity of tablet 00:00: MOUTH EVERYDAY Medical AT BEDTIME Branch venlafaxine 2021-0 Yes [id number] TAKE 2 [facility] 37.5 mg 9-08 TABLETS IN ity of tablet 00:00: THE MORNING Medical AND 1 Branch TABLET IN THE AFTERNOON AND TWO TABLETS AT NIGHT traZODone 2021-0 Yes [id number] TAKE 1 [facility] vers 150 mg 9-08 TABLET BY ity of tablet 00:00: [facility] EVERYDAY Medical AT BEDTIME Branch venlafaxine 2021-0 Yes [id number] TAKE 2 [facility] 37.5 mg 9-08 TABLETS IN ity of tablet 00:00: THE MORNING Medical AND 1 Branch TABLET IN THE AFTERNOON AND TWO TABLETS AT NIGHT traZODone 2021-0 Yes [id number] TAKE 1 [facility] vers 150 mg 9-08 TABLET BY ity of tablet 00:00: [facility] EVERYDAY Medical AT BEDTIME Branch venlafaxine 2021-0 Yes [id number] TAKE 2 [facility] 37.5 mg 9-08 TABLETS IN ity of tablet 00:00: THE MORNING Medical AND 1 Branch TABLET IN THE AFTERNOON AND TWO TABLETS AT NIGHT traZODone 2021-0 Yes [id number] TAKE 1 [facility] vers 150 mg 9-08 TABLET BY ity of tablet 00:00: [facility] EVERYDAY Medical AT BEDTIME Branch venlafaxine 2021-0 Yes [id number] TAKE 2 [facility] 37.5 mg 9-08 TABLETS IN ity of tablet 00:00: THE [place] MORNING Medical AND 1 Branch TABLET IN THE AFTERNOON AND TWO TABLETS AT NIGHT traZODone 2021-0 Yes [id number] TAKE 1 [facility] vers 150 mg 9-08 TABLET BY ity of tablet 00:00: [facility] EVERYDAY Medical AT BEDTIME Branch venlafaxine 2021-0 Yes [id number] TAKE 2 [facility] 37.5 mg 9-08 TABLETS IN ity of tablet 00:00: THE [place] MORNING Medical AND 1 Branch TABLET IN THE AFTERNOON AND TWO TABLETS AT NIGHT levalbutero 2021-0 Yes [id number] INHALE 1-2 Univers l 45 9-06 PUFFS ity of mcg/actuati 00:00: EVERY 4 [place] on inhaler 00 HOURS Medic al NEEDED FOR Branch WHEEZING levalbutero 2021-0 Yes [id number] INHALE 1-2 [facility] l 45 9-06 PUFFS ity of mcg/actuati 00:00: EVERY 4 [place] [facility] on inhaler 00 HOURS Medic al NEEDED FOR Branch WHEEZING levalbutero Yes [id number] INHALE 1-2 [facility] l 45 9-06 PUFFS ity of mcg/actuati 00:00: EVERY 4 [facility] on inhaler 00 HOURS Medic al NEEDED FOR Branch WHEEZING levalbutero 0 Yes [id number] INHALE 1-2 [facility] l 45 9-06 PUFFS ity of mcg/actuati 00:00: EVERY 4 [facility] on inhaler 00 HOURS Medic al NEEDED FOR Branch WHEEZING levalbutero Yes [id number] INHALE 1-2 [facility] l 45 9-06 PUFFS ity of mcg/actuati 00:00: EVERY 4 [facility] on inhaler 00 HOURS Medic al NEEDED FOR Branch WHEEZING levalbutero Yes [id number] INHALE 1-2 [facility] l 45 9-06 PUFFS ity of mcg/actuati 00:00: EVERY 4 [place] [facility] on inhaler 00 HOURS Medic al NEEDED FOR Branch WHEEZING levalbutero Yes [id number] INHALE 1-2 [facility] l 45 9-06 PUFFS ity of mcg/actuati 00:00: EVERY 4 [place] [facility] on inhaler 00 HOURS Medic al NEEDED FOR Branch WHEEZING levalbutero Yes [id number] INHALE 1-2 [facility] l 45 9-06 PUFFS ity of mcg/actuati 00:00: EVERY 4 [place] [facility] on inhaler 00 HOURS Medic al NEEDED FOR Branch WHEEZING levalbutero 2021-0 2021- No [id number] INHALE 1-2 [facility] l 45 9-06 10-04 PUFFS ity of mcg/actuati 00:00: 00:00 EVERY 4 [place] on inhaler 00 :00 HOURS Medic al NEEDED FOR Branch WHEEZING cyanocobala Yes INJECT 1 [facility] min 1,000 8-21 ML ity of mcg/mL 00:00: INTRAMUSCU [place] injection 00 LARLY Medical EVERY 14 Branch DAYS FOR 3 MONTHS THEN ONCE PER MONTH THEREAFTER cyanocobala 0 Yes INJECT 1 [facility] min 1,000 8-21 ML ity of mcg/mL 00:00: INTRAMUSCU [place] injection 00 LARLY Medical EVERY 14 Branch DAYS FOR 3 MONTHS THEN ONCE PER MONTH THEREAFTER cyanocobala 2021-0 Yes INJECT 1 [facility] min 1,000 8-21 ML ity of mcg/mL 00:00: INTRAMUSCU [place] injection 00 LARLY Medical EVERY 14 Branch DAYS FOR 3 MONTHS THEN ONCE PER MONTH THEREAFTER cyanocobala 0 Yes INJECT 1 [facility] [place] min 1,000 8-21 ML ity of mcg/mL 00:00: INTRAMUSCU [place] injection 00 LARLY Medical EVERY 14 Branch DAYS FOR 3 MONTHS THEN ONCE PER MONTH THEREAFTER cyanocobala 0 Yes INJECT 1 [facility] [place] min 1,000 8-21 ML ity of mcg/mL 00:00: INTRAMUSCU [place] injection 00 LARLY Medical EVERY 14 Branch DAYS FOR 3 MONTHS THEN ONCE PER MONTH THEREAFTER cyanocobala 0 Yes INJECT 1 [facility] [place] min 1,000 8-21 ML ity of mcg/mL 00:00: INTRAMUSCU [place] injection 00 LARLY Medical EVERY 14 Branch DAYS FOR 3 MONTHS THEN ONCE PER MONTH THEREAFTER cyanocobala 2021-0 Yes INJECT 1 [facility] [place] min 1,000 8-21 ML ity of mcg/mL 00:00: INTRAMUSCU [place] injection 00 LARLY Medical EVERY 14 Branch DAYS FOR 3 MONTHS THEN ONCE PER MONTH THEREAFTER cyanocobala 2021-0 Yes INJECT 1 [facility] [place] min 1,000 8-21 ML ity of mcg/mL 00:00: INTRAMUSCU [place] injection 00 LARLY Medical EVERY 14 Branch DAYS FOR 3 MONTHS THEN ONCE PER MONTH THEREAFTER cyanocobala 2021-0 Yes INJECT 1 [facility] [place] min 1,000 8-21 ML ity of mcg/mL 00:00: INTRAMUSCU [place] injection 00 LARLY Medical EVERY 14 Branch DAYS FOR 3 MONTHS THEN ONCE PER MONTH THEREAFTER cyanocobala 2021-0 Yes [id number] INJECT 1 [facility] min 1000 8-21 ML College MCG/ML 00:00: INTRAMUSCU of injection 00 LARLY Medicin EVERY 14 e DAYS FOR 3 MONTHS THEN ONCE PER MONTH THEREAFTER cyanocobala 2021-0 Yes [id number] INJECT 1 [facility] min 1000 8-21 ML [facility] MCG/ML 00:00: INTRAMUSCU of injection 00 LARLY Medicin EVERY 14 e DAYS FOR 3 MONTHS THEN ONCE PER MONTH THEREAFTER EPINEPHrine 2021-0 Yes [id number] INJECT Univers 0.3 mg/0.3 8-12 0.3ML ity of mL 00:00: INTRAMUSCU [place] injection 00 LARLY Medica l NEEDED FOR Branch ANAPHYLAXI S EPINEPHrine 0 Yes [id number] INJECT [facility] 0.3 mg/0.3 8-12 0.3ML ity of mL 00:00: INTRAMUSCU [place] injection 00 LARLY Medica l NEEDED FOR Branch ANAPHYLAXI S EPINEPHrine 0 Yes [id number] INJECT [facility] 0.3 mg/0.3 8-12 0.3ML ity of mL 00:00: INTRAMUSCU [place] injection 00 LARLY Medica l NEEDED FOR Branch ANAPHYLAXI S EPINEPHrine 0 Yes [id number] INJECT [facility] 0.3 mg/0.3 8-12 0.3ML ity of mL 00:00: INTRAMUSCU [place] injection 00 LARLY Medica l NEEDED FOR Branch ANAPHYLAXI S EPINEPHrine 0 Yes [id number] INJECT [facility] 0.3 mg/0.3 8-12 0.3ML ity of mL 00:00: INTRAMUSCU [place] injection 00 LARLY Medica l NEEDED FOR Branch ANAPHYLAXI S EPINEPHrine 0 Yes [id number] INJECT [facility] 0.3 mg/0.3 8-12 0.3ML ity of mL 00:00: INTRAMUSCU [place] injection 00 LARLY Medica l NEEDED FOR Branch ANAPHYLAXI S EPINEPHrine 0 Yes [id number] INJECT Univers 0.3 mg/0.3 8-12 0.3ML ity of mL 00:00: INTRAMUSCU [place] injection 00 LARLY Medica l NEEDED FOR Branch ANAPHYLAXI S EPINEPHrine 2021-0 Yes [id number] INJECT [facility] 0.3 mg/0.3 8-12 0.3ML ity of mL 00:00: INTRAMUSCU [place] injection 00 LARLY Medica l NEEDED FOR Branch ANAPHYLAXI S EPINEPHrine 2021-0 Yes [id number] INJECT Univers 0.3 mg/0.3 8-12 0.3ML ity of mL 00:00: INTRAMUSCU [place] injection 00 LARLY Medica l NEEDED FOR Branch ANAPHYLAXI S EPINEPHrine 2021-0 Yes [id number] INJECT Univers 0.3 mg/0.3 8-12 0.3ML ity of mL 00:00: INTRAMUSCU [place] injection 00 LARLY Medica l NEEDED FOR Branch ANAPHYLAXI S EPINEPHrine Yes [id number] INJECT [facility] 0.3 mg/0.3 8-12 0.3ML ity of mL 00:00: INTRAMUSCU [place] injection 00 LARLY Medica l NEEDED FOR Branch ANAPHYLAXI S EPINEPHrine Yes [id number] INJECT [facility] 0.3 mg/0.3 8-12 0.3ML ity of mL 00:00: INTRAMUSCU [place] injection 00 LARLY Medica l NEEDED FOR Branch ANAPHYLAXI S EPINEPHrine Yes [id number] INJECT Univers 0.3 mg/0.3 8-12 0.3ML ity of mL 00:00: INTRAMUSCU [place] injection 00 LARLY Medica l NEEDED FOR Branch ANAPHYLAXI S EPINEPHrine Yes [id number] INJECT [facility] 0.3 mg/0.3 8-12 0.3ML ity of mL 00:00: INTRAMUSCU [place] injection 00 LARLY Medica l NEEDED FOR Branch ANAPHYLAXI S EPINEPHrine Yes [id number] INJECT [facility] 0.3 mg/0.3 8-12 0.3ML ity of mL 00:00: INTRAMUSCU [place] injection 00 LARLY Medica l NEEDED FOR Branch ANAPHYLAXI S EPINEPHrine Yes [id number] INJECT Univers 0.3 mg/0.3 8-12 0.3ML ity of mL 00:00: INTRAMUSCU [place] injection 00 LARLY Medica l NEEDED FOR Branch ANAPHYLAXI S EPINEPHrine Yes [id number] INJECT Univers 0.3 mg/0.3 8-12 0.3ML ity of mL 00:00: INTRAMUSCU [place] injection 00 LARLY Medica l NEEDED FOR Branch ANAPHYLAXI S EPINEPHrine Yes [id number] INJECT Univers 0.3 mg/0.3 8-12 0.3ML ity of mL 00:00: INTRAMUSCU [place] injection 00 LARLY Medica l NEEDED FOR Branch ANAPHYLAXI S EPINEPHrine Yes [id number] INJECT Univers 0.3 mg/0.3 8-12 0.3ML ity of mL 00:00: INTRAMUSCU [place] injection 00 LARLY Medica l NEEDED FOR Branch ANAPHYLAXI S EPINEPHrine Yes [id number] INJECT [facility] 0.3 mg/0.3 8-12 0.3ML ity of mL 00:00: INTRAMUSCU [place] injection 00 LARLY Medica l NEEDED FOR Branch ANAPHYLAXI S EPINEPHrine 0 Yes [id number] INJECT Univers 0.3 mg/0.3 8-12 0.3ML ity of mL 00:00: INTRAMUSCU [place] injection 00 LARLY Medica l NEEDED FOR Branch ANAPHYLAXI S EPINEPHrine 0 Yes [id number] INJECT [facility] 0.3 mg/0.3 8-12 0.3ML ity of mL 00:00: INTRAMUSCU [place] injection 00 LARLY Medica l NEEDED FOR Branch ANAPHYLAXI S EPINEPHrine 0 Yes [id number] INJECT [facility] 0.3 mg/0.3 8-12 0.3ML ity of mL 00:00: INTRAMUSCU [place] injection 00 LARLY Medica l NEEDED FOR Branch ANAPHYLAXI S EPINEPHrine 0 Yes [id number] INJECT [facility] 0.3 mg/0.3 8-12 0.3ML ity of mL 00:00: INTRAMUSCU [place] injection 00 LARLY Medica l NEEDED FOR Branch ANAPHYLAXI S EPINEPHrine 0 Yes [id number] INJECT Univers 0.3 mg/0.3 8-12 0.3ML ity of mL 00:00: INTRAMUSCU [place] injection 00 LARLY Medica l NEEDED FOR Branch ANAPHYLAXI S EPINEPHrine 0 Yes [id number] INJECT Univers 0.3 mg/0.3 8-12 0.3ML ity of mL 00:00: INTRAMUSCU [place] injection 00 LARLY Medica l NEEDED FOR Branch ANAPHYLAXI S EPINEPHrine 2021-0 Yes [id number] INJECT Univers 0.3 mg/0.3 8-12 0.3ML ity of mL 00:00: INTRAMUSCU [place] injection 00 LARLY Medica l NEEDED FOR Branch ANAPHYLAXI S EPINEPHrine 2021-0 Yes [id number] INJECT Univers 0.3 mg/0.3 8-12 0.3ML ity of mL 00:00: INTRAMUSCU [place] injection 00 LARLY Medica l NEEDED FOR Branch ANAPHYLAXI S EPINEPHrine 2021-0 Yes [id number] INJECT Univers 0.3 mg/0.3 8-12 0.3ML ity of mL 00:00: INTRAMUSCU [place] injection 00 LARLY Medica l NEEDED FOR Branch ANAPHYLAXI S EPINEPHrine 0 Yes [id number] INJECT [facility] 0.3 mg/0.3 8-12 0.3ML ity of mL 00:00: INTRAMUSCU [place] injection 00 LARLY Medica l NEEDED FOR Branch ANAPHYLAXI S EPINEPHrine 2021-0 Yes [id number] INJECT Univers 0.3 mg/0.3 8-12 0.3ML ity of mL 00:00: INTRAMUSCU [place] injection 00 LARLY Medica l NEEDED FOR Branch ANAPHYLAXI S EPINEPHrine 0 Yes [id number] INJECT [facility] 0.3 mg/0.3 8-12 0.3ML ity of mL 00:00: INTRAMUSCU [place] injection 00 LARLY Medica l NEEDED FOR Branch ANAPHYLAXI S EPINEPHrine 0 Yes [id number] INJECT Univers 0.3 mg/0.3 8-12 0.3ML ity of mL 00:00: INTRAMUSCU [place] injection 00 LARLY Medica l NEEDED FOR Branch ANAPHYLAXI S EPINEPHrine 2021-0 Yes [id number] INJECT Univers 0.3 mg/0.3 8-12 0.3ML ity of mL 00:00: INTRAMUSCU [place] injection 00 LARLY Medica l NEEDED FOR Branch ANAPHYLAXI S EPINEPHrine 0 Yes [id number] INJECT [facility] 0.3 mg/0.3 8-12 0.3ML ity of mL 00:00: INTRAMUSCU [place] injection 00 LARLY Medica l NEEDED FOR Branch ANAPHYLAXI S EPINEPHrine 2021-0 Yes [id number] INJECT [facility] 0.3 mg/0.3 8-12 0.3ML ity of mL 00:00: INTRAMUSCU [place] injection 00 LARLY Medica l NEEDED FOR Branch ANAPHYLAXI S EPINEPHrine 2021-0 Yes [id number] INJECT Univers 0.3 mg/0.3 8-12 0.3ML ity of mL 00:00: INTRAMUSCU [place] injection 00 LARLY Medica l NEEDED FOR Branch ANAPHYLAXI S EPINEPHrine 2021-0 Yes [id number] INJECT [facility] 0.3 mg/0.3 8-12 0.3ML ity of mL 00:00: INTRAMUSCU [place] injection 00 LARLY Medica l NEEDED FOR Branch ANAPHYLAXI S EPINEPHrine 0 Yes [id number] INJECT Univers 0.3 mg/0.3 8-12 0.3ML ity of mL 00:00: INTRAMUSCU [place] injection 00 LARLY Medica l NEEDED FOR Branch ANAPHYLAXI S EPINEPHrine 0 Yes [id number] INJECT [facility] 0.3 mg/0.3 8-12 0.3ML ity of mL 00:00: INTRAMUSCU [place] injection 00 LARLY Medica l NEEDED FOR Branch ANAPHYLAXI S EPINEPHrine Yes [id number] INJECT [facility] 0.3 mg/0.3 8-12 0.3ML ity of mL 00:00: INTRAMUSCU [place] injection 00 LARLY Medica l NEEDED FOR Branch ANAPHYLAXI S EPINEPHrine Yes [id number] INJECT [facility] 0.3 mg/0.3 8-12 0.3ML ity of mL 00:00: INTRAMUSCU [place] injection 00 LARLY Medica l NEEDED FOR Branch ANAPHYLAXI S EPINEPHrine Yes [id number] INJECT [facility] 0.3 mg/0.3 8-12 0.3ML ity of mL 00:00: INTRAMUSCU [place] injection 00 LARLY Medica l NEEDED FOR Branch ANAPHYLAXI S EPINEPHrine 0 Yes [id number] INJECT [facility] 0.3 mg/0.3 8-12 0.3ML ity of mL 00:00: INTRAMUSCU [place] injection 00 LARLY Medica l NEEDED FOR Branch ANAPHYLAXI S EPINEPHrine 0 Yes [id number] INJECT [facility] 0.3 mg/0.3 8-12 0.3ML ity of mL 00:00: INTRAMUSCU [place] injection 00 LARLY Medica l NEEDED FOR Branch ANAPHYLAXI S EPINEPHrine 0 Yes [id number] INJECT [facility] 0.3 mg/0.3 8-12 0.3ML ity of mL 00:00: INTRAMUSCU [place] injection 00 LARLY Medica l NEEDED FOR Branch ANAPHYLAXI S EPINEPHrine 0 Yes [id number] INJECT [facility] 0.3 mg/0.3 8-12 0.3ML ity of mL 00:00: INTRAMUSCU [place] injection 00 LARLY Medica l NEEDED FOR Branch ANAPHYLAXI S EPINEPHrine 2021-0 Yes [id number] INJECT [facility] 0.3 mg/0.3 8-12 0.3ML ity of mL 00:00: INTRAMUSCU [place] injection 00 LARLY Medica l NEEDED FOR Branch ANAPHYLAXI S EPINEPHrine 0 Yes [id number] INJECT [facility] 0.3 mg/0.3 8-12 0.3ML ity of mL 00:00: INTRAMUSCU [place] injection 00 LARLY Medica l NEEDED FOR Branch ANAPHYLAXI S EPINEPHrine 0 Yes [id number] INJECT [facility] 0.3 mg/0.3 8-12 0.3ML ity of mL 00:00: INTRAMUSCU [place] injection 00 LARLY Medica l NEEDED FOR Branch ANAPHYLAXI S EPINEPHrine 0 Yes [id number] INJECT [facility] 0.3 mg/0.3 8-12 0.3ML ity of mL 00:00: INTRAMUSCU [place] injection 00 LARLY Medica l NEEDED FOR Branch ANAPHYLAXI S EPINEPHrine 0 Yes [id number] INJECT [facility] 0.3 mg/0.3 8-12 0.3ML ity of mL 00:00: INTRAMUSCU [place] injection 00 LARLY Medica l NEEDED FOR Branch ANAPHYLAXI S EPINEPHrine 0 Yes [id number] INJECT [facility] 0.3 mg/0.3 8-12 0.3ML ity of mL 00:00: INTRAMUSCU [place] injection 00 LARLY Medica l NEEDED FOR Branch ANAPHYLAXI S EPINEPHrine 0 Yes [id number] INJECT [facility] 0.3 mg/0.3 8-12 0.3ML ity of mL 00:00: INTRAMUSCU [place] injection 00 LARLY Medica l NEEDED FOR Branch ANAPHYLAXI S EPINEPHrine 0 Yes [id number] INJECT [facility] 0.3 mg/0.3 8-12 0.3ML ity of mL 00:00: INTRAMUSCU [place] injection 00 LARLY Medica l NEEDED FOR Branch ANAPHYLAXI S EPINEPHrine 0 Yes [id number] INJECT [facility] 0.3 mg/0.3 8-12 0.3ML ity of mL 00:00: INTRAMUSCU [place] injection 00 LARLY Medica l NEEDED FOR Branch ANAPHYLAXI S EPINEPHrine 0 Yes [id number] INJECT [facility] 0.3 mg/0.3 8-12 0.3ML ity of mL 00:00: INTRAMUSCU [place] injection 00 LARLY Medica l NEEDED FOR Branch ANAPHYLAXI S EPINEPHrine Yes [id number] INJECT [facility] 0.3 mg/0.3 8-12 0.3ML ity of mL 00:00: INTRAMUSCU [place] injection 00 LARLY Medica l NEEDED FOR Branch ANAPHYLAXI S EPINEPHrine 3- No [id number] INJECT [facility] 0.3 mg/0.3 8-12 01-10 0.3ML ity of mL 00:00: 00:00 INTRAMUSCU [place] injection 00 :00 LARLY Medica l NEEDED FOR Branch ANAPHYLAXI S EPINEPHrine 2022- No [id number] INJECT [facility] 0.3 mg/0.3 8-12 01-10 0.3ML ity of mL 00:00: 00:00 INTRAMUSCU [place] injection 00 :00 LARLY Medica l NEEDED FOR Branch ANAPHYLAXI S EPINEPHrine 2022- No [id number] INJECT [facility] 0.3 mg/0.3 8-12 01-10 0.3ML ity of mL 00:00: 00:00 INTRAMUSCU [place] injection 00 :00 LARLY Medica l NEEDED FOR Branch ANAPHYLAXI S EPINEPHrine 2022- No [id number] INJECT [facility] 0.3 mg/0.3 8-12 01-10 0.3ML ity of mL 00:00: 00:00 INTRAMUSCU [place] injection 00 :00 LARLY Medica l NEEDED FOR Branch ANAPHYLAXI S promethazin Yes [id number] 25mg Take 20 mL [facility] e 6.25 mg/5 7-28 by mouth ity of mL solution 00:00: every 8 [place] 00 (eight) Medical hours as Branch needed for Nausea and Vomiting (N/V). promethazin Yes [id number] 25mg Take 20 mL [facility] e 6.25 mg/5 7-28 by mouth ity of mL solution 00:00: every 8 [place] 00 (eight) Medical hours as Branch needed for Nausea and Vomiting (N/V). promethazin Yes [id number] 25mg Take 20 mL [facility] e 6.25 mg/5 7-28 by mouth ity of mL solution 00:00: every 8 [place] 00 (eight) Medical hours as Branch needed for Nausea and Vomiting (N/V). promethazin Yes [id number] 25mg Take 20 mL [facility] e 6.25 mg/5 7-28 by mouth ity of mL solution 00:00: every 8 [place] 00 (eight) Medical hours as Branch needed for Nausea and Vomiting (N/V). promethazin 0 Yes [id number] 25mg Take 20 mL [facility] e 6.25 mg/5 7-28 by mouth ity of mL solution 00:00: every 8 [place] 00 (eight) Medical hours as Branch needed for Nausea and Vomiting (N/V). promethazin 0 Yes [id number] 25mg Take 20 mL [facility] e 6.25 mg/5 7-28 by mouth ity of mL solution 00:00: every 8 [place] 00 (eight) Medical hours as Branch needed for Nausea and Vomiting (N/V). promethazin 0 Yes [id number] 25mg Take 20 mL [facility] e 6.25 mg/5 7-28 by mouth ity of mL solution 00:00: every 8 [place] 00 (eight) Medical hours as Branch needed for Nausea and Vomiting (N/V). promethazin Yes [id number] 25mg Take 20 mL [facility] e 6.25 mg/5 7-28 by mouth ity of mL solution 00:00: every 8 [place] 00 (eight) Medical hours as Branch needed for Nausea and Vomiting (N/V). promethazin 0 Yes [id number] 25mg Take 20 mL [facility] e 6.25 mg/5 7-28 by mouth ity of mL solution 00:00: every 8 [place] 00 (eight) Medical hours as Branch needed for Nausea and Vomiting (N/V). promethazin 0 Yes [id number] 25mg Take 20 mL [facility] e 6.25 mg/5 7-28 by mouth ity of mL solution 00:00: every 8 [place] 00 (eight) Medical hours as Branch needed for Nausea and Vomiting (N/V). promethazin 0 2021- No [id number] 25mg Take 20 mL [facility] e 6.25 mg/5 7-28 10-12 by mouth ity of mL solution 00:00: 00:00 every 8 [place] 00 :00 (eight) Medical hours as Branch needed for Nausea and Vomiting (N/V). ivabradine Yes [id number] TAKE 1 [facility] (CORLANOR) 7-27 TABLET BY ity of 7.5 mg 00:00: MOUTH [place] tablet 00 TWICE A Medical DAY Branch ivabradine Yes [id number] TAKE 1 [facility] (CORLANOR) 7-27 TABLET BY ity of 7.5 mg 00:00: MOUTH [place] tablet 00 TWICE A Medical DAY Branch ivabradine Yes [id number] TAKE 1 [facility] (CORLANOR) 7-27 TABLET BY ity of 7.5 mg 00:00: MOUTH [place] tablet 00 TWICE A Medical DAY Branch ivabradine Yes [id number] TAKE 1 [facility] (CORLANOR) 7-27 TABLET BY ity of 7.5 mg 00:00: MOUTH [place] tablet 00 TWICE A Medical DAY Branch ivabradine Yes [id number] TAKE 1 [facility] (CORLANOR) 7-27 TABLET BY ity of 7.5 mg 00:00: MOUTH [place] tablet 00 TWICE A Medical DAY Branch ivabradine Yes [id number] TAKE 1 [facility] (CORLANOR) 7-27 TABLET BY ity of 7.5 mg 00:00: MOUTH [place] tablet 00 TWICE A Medical DAY Branch ivabradine 2021- No [id number] TAKE 1 [facility] (CORLANOR) 7-27 -28 TABLET BY ity of 7.5 mg 00:00: 00:00 MOUTH [place] tablet 00 :00 TWICE A Medical DAY Branch pregabalin Yes [id number] TAKE 1 [facility] (LYRICA) 7-20 CAPSULE BY [facility] 100 MG 00:00: MOUTH of capsule 00 THREE Medicin TIMES A e DAY tramadol 2021- No [id number] 1{tbl} Take 1 [facility] (ULTRAM) 50 7-20 09-13 Tablet by [facility] MG tablet 00:00: 00:00 mouth of 00 :00 every 4 Medicin hours as e needed for Pain (max 6/dqy). methocarbam Yes [id number] TAKE 1 [facility] ol 7-07 TABLET BY [place] (ROBAXIN) 00:00: MOUTH of 750 MG 00 EVERY 8 Medicin tablet HOURS e NEEDED FOR SPASM methocarbam 0 Yes [id number] TAKE 1 [facility] ol 7-07 TABLET BY [place] (ROBAXIN) 00:00: MOUTH of 750 MG 00 EVERY 8 Medicin tablet HOURS e NEEDED FOR SPASM semaglutide 2021-0 Yes [id number] .25mg inject [facility] (OZEMPIC) 05-12 104 0.25 mg ity of 0.25 mg or 00:00: under the [place] 0.5 mg(2 00 skin Medical mg/1.5 mL) weekly. Branch [place] semaglutide 2021-0 Yes [id number] .25mg inject [facility] (OZEMPIC) 05-12 104 0.25 mg ity of 0.25 mg or 00:00: under the [place] 0.5 mg(2 00 skin Medical mg/1.5 mL) weekly. Branch [place] semaglutide 0 Yes [id number] .25mg inject [facility] (OZEMPIC) 05-12 104 0.25 mg ity of 0.25 mg or 00:00: under the [place] 0.5 mg(2 00 skin Medical mg/1.5 mL) weekly. Branch SenaIj semaglutide 2021-0 Yes [id number] .25mg inject [facility] (OZEMPIC) 05-12 104 0.25 mg ity of 0.25 mg or 00:00: under the [place] 0.5 mg(2 00 skin Medical mg/1.5 mL) weekly. Branch [place] semaglutide 2021-0 Yes [id number] .25mg inject [facility] (OZEMPIC) 05-12 104 0.25 mg ity of 0.25 mg or 00:00: under the [place] 0.5 mg(2 00 skin Medical mg/1.5 mL) weekly. Branch SenaIj semaglutide 2021-0 Yes [id number] .25mg inject [facility] (OZEMPIC) 05-12 104 0.25 mg ity of 0.25 mg or 00:00: under the [place] 0.5 mg(2 00 skin Medical mg/1.5 mL) weekly. Branch SenaIj semaglutide 2021-0 Yes [id number] .25mg inject [facility] (OZEMPIC) 05-12 104 0.25 mg ity of 0.25 mg or 00:00: under the [place] 0.5 mg(2 00 skin Medical mg/1.5 mL) weekly. Branch SenaIj semaglutide 2021-0 Yes [id number] .25mg inject [facility] (OZEMPIC) 05-12 104 0.25 mg ity of 0.25 mg or 00:00: under the [place] 0.5 mg(2 00 skin Medical mg/1.5 mL) weekly. Branch PnIj semaglutide 2021-0 Yes [id number] .25mg inject [facility] (OZEMPIC) 05-12 104 0.25 mg ity of 0.25 mg or 00:00: under the [place] 0.5 mg(2 00 skin Medical mg/1.5 mL) weekly. Branch PnIj semaglutide 2021-0 Yes [id number] .25mg inject [facility] (OZEMPIC) 05-12 104 0.25 mg ity of 0.25 mg or 00:00: under the [place] 0.5 mg(2 00 skin Medical mg/1.5 mL) weekly. Branch PnIj semaglutide 2021-0 Yes [id number] .25mg inject [facility] (OZEMPIC) 05-12 104 0.25 mg ity of 0.25 mg or 00:00: under the [place] 0.5 mg(2 00 skin Medical mg/1.5 mL) weekly. Branch PnIj semaglutide 2021-0 Yes [id number] .25mg inject [facility] (OZEMPIC) 05-12 104 0.25 mg ity of 0.25 mg or 00:00: under the [place] 0.5 mg(2 00 skin Medical mg/1.5 mL) weekly. Branch PnIj semaglutide 2021-0 Yes [id number] .25mg inject [facility] (OZEMPIC) 05-12 104 0.25 mg ity of 0.25 mg or 00:00: under the [place] 0.5 mg(2 00 skin Medical mg/1.5 mL) weekly. Branch PnIj semaglutide 2021-0 Yes [id number] .25mg inject [facility] (OZEMPIC) 05-12 104 0.25 mg ity of 0.25 mg or 00:00: under the [place] 0.5 mg(2 00 skin Medical mg/1.5 mL) weekly. Branch PnIj semaglutide 2021-0 Yes [id number] .25mg inject [facility] (OZEMPIC) 629 104 0.25 mg ity of 0.25 mg or 00:00: under the [place] 0.5 mg(2 00 skin Medical mg/1.5 mL) weekly. Branch SenaIj semaglutide 2021-0 Yes [id number] .25mg inject [facility] (OZEMPIC) 05-12 104 0.25 mg ity of 0.25 mg or 00:00: under the [place] 0.5 mg(2 00 skin Medical mg/1.5 mL) weekly. Branch PnIj semaglutide 2021-0 Yes [id number] .25mg inject [facility] (OZEMPIC) 05-12 104 0.25 mg ity of 0.25 mg or 00:00: under the [place] 0.5 mg(2 00 skin Medical mg/1.5 mL) weekly. Branch SenaIj semaglutide 2021-0 Yes [id number] .25mg inject [facility] (OZEMPIC) 05-12 104 0.25 mg ity of 0.25 mg or 00:00: under the [place] 0.5 mg(2 00 skin Medical mg/1.5 mL) weekly. Branch SenaIj semaglutide 2021-0 Yes [id number] .25mg inject [facility] (OZEMPIC) 05-12 104 0.25 mg ity of 0.25 mg or 00:00: under the [place] 0.5 mg(2 00 skin Medical mg/1.5 mL) weekly. Branch SenaIj semaglutide 2021-0 Yes [id number] .25mg inject [facility] (OZEMPIC) 05-12 104 0.25 mg ity of 0.25 mg or 00:00: under the [place] 0.5 mg(2 00 skin Medical mg/1.5 mL) weekly. Branch PnIj semaglutide 2021-0 Yes [id number] .25mg inject [facility] (OZEMPIC) 05-12 104 0.25 mg ity of 0.25 mg or 00:00: under the [place] 0.5 mg(2 00 skin Medical mg/1.5 mL) weekly. Branch PnIj semaglutide 2021-0 Yes [id number] .25mg inject [facility] (OZEMPIC) 05-12 104 0.25 mg ity of 0.25 mg or 00:00: under the [place] 0.5 mg(2 00 skin Medical mg/1.5 mL) weekly. Branch PnIj semaglutide 2021-0 Yes [id number] .25mg inject [facility] (OZEMPIC) 05-12 104 0.25 mg ity of 0.25 mg or 00:00: under the [place] 0.5 mg(2 00 skin Medical mg/1.5 mL) weekly. Branch PnIj semaglutide 2021-0 Yes [id number] .25mg inject [facility] (OZEMPIC) 05-12 104 0.25 mg ity of 0.25 mg or 00:00: under the [place] 0.5 mg(2 00 skin Medical mg/1.5 mL) weekly. Branch PnIj semaglutide 2021-0 Yes [id number] .25mg inject [facility] (OZEMPIC) 05-12 104 0.25 mg ity of 0.25 mg or 00:00: under the [place] 0.5 mg(2 00 skin Medical mg/1.5 mL) weekly. Branch PnIj semaglutide 2021-0 Yes [id number] .25mg inject [facility] (OZEMPIC) 05-12 104 0.25 mg ity of 0.25 mg or 00:00: under the [place] 0.5 mg(2 00 skin Medical mg/1.5 mL) weekly. Branch PnIj semaglutide 2021-0 Yes [id number] .25mg inject [facility] (OZEMPIC) 05-12 104 0.25 mg ity of 0.25 mg or 00:00: under the [place] 0.5 mg(2 00 skin Medical mg/1.5 mL) weekly. Branch PnIj semaglutide 2021-0 Yes [id number] .25mg inject [facility] (OZEMPIC) 05-12 104 0.25 mg ity of 0.25 mg or 00:00: under the [place] 0.5 mg(2 00 skin Medical mg/1.5 mL) weekly. Branch PnIj semaglutide 2021-0 Yes [id number] .25mg inject [facility] (OZEMPIC) 05-12 104 0.25 mg ity of 0.25 mg or 00:00: under the [place] 0.5 mg(2 00 skin Medical mg/1.5 mL) weekly. Branch PnIj semaglutide 2021-0 Yes [id number] .25mg inject [facility] (OZEMPIC) 05-12 104 0.25 mg ity of 0.25 mg or 00:00: under the [place] 0.5 mg(2 00 skin Medical mg/1.5 mL) weekly. Branch PnIj semaglutide 2021-0 Yes [id number] .25mg inject [facility] (OZEMPIC) 05-12 104 0.25 mg ity of 0.25 mg or 00:00: under the [place] 0.5 mg(2 00 skin Medical mg/1.5 mL) weekly. Branch PnIj semaglutide 2021-0 Yes [id number] .25mg inject [facility] (OZEMPIC) 05-12 104 0.25 mg ity of 0.25 mg or 00:00: under the [place] 0.5 mg(2 00 skin Medical mg/1.5 mL) weekly. Branch PnIj semaglutide 2021-0 Yes [id number] .25mg inject [facility] (OZEMPIC) 05-12 104 0.25 mg ity of 0.25 mg or 00:00: under the [place] 0.5 mg(2 00 skin Medical mg/1.5 mL) weekly. Branch PnIj semaglutide 2021-0 Yes [id number] .25mg inject [facility] (OZEMPIC) 05-12 104 0.25 mg ity of 0.25 mg or 00:00: under the [place] 0.5 mg(2 00 skin Medical mg/1.5 mL) weekly. Branch PnIj semaglutide 2021-0 Yes [id number] .25mg inject [facility] (OZEMPIC) 05-12 104 0.25 mg ity of 0.25 mg or 00:00: under the [place] 0.5 mg(2 00 skin Medical mg/1.5 mL) weekly. Branch PnIj semaglutide 2021-0 Yes [id number] .25mg inject [facility] (OZEMPIC) 05-12 104 0.25 mg ity of 0.25 mg or 00:00: under the [place] 0.5 mg(2 00 skin Medical mg/1.5 mL) weekly. Branch PnIj semaglutide 2021-0 Yes [id number] .25mg inject [facility] (OZEMPIC) 05-12 104 0.25 mg ity of 0.25 mg or 00:00: under the [place] 0.5 mg(2 00 skin Medical mg/1.5 mL) weekly. Branch SenaIj semaglutide 2021-0 Yes [id number] .25mg inject [facility] (OZEMPIC) 05-12 104 0.25 mg ity of 0.25 mg or 00:00: under the [place] 0.5 mg(2 00 skin Medical mg/1.5 mL) weekly. Branch PnIj semaglutide 2021-0 Yes [id number] .25mg inject [facility] (OZEMPIC) 05-12 104 0.25 mg ity of 0.25 mg or 00:00: under the [place] 0.5 mg(2 00 skin Medical mg/1.5 mL) weekly. Branch SenaIj semaglutide 2021-0 Yes [id number] .25mg inject [facility] (OZEMPIC) 05-12 104 0.25 mg ity of 0.25 mg or 00:00: under the [place] 0.5 mg(2 00 skin Medical mg/1.5 mL) weekly. Branch SenaIj semaglutide 2021-0 Yes [id number] .25mg inject [facility] (OZEMPIC) 05-12 104 0.25 mg ity of 0.25 mg or 00:00: under the [place] 0.5 mg(2 00 skin Medical mg/1.5 mL) weekly. Branch [place] semaglutide 2021-0 Yes [id number] .25mg inject [facility] (OZEMPIC) 05-12 104 0.25 mg ity of 0.25 mg or 00:00: under the [place] 0.5 mg(2 00 skin Medical mg/1.5 mL) weekly. Branch SenaIj semaglutide 2021-0 Yes [id number] .25mg inject [facility] (OZEMPIC) 05-12 104 0.25 mg ity of 0.25 mg or 00:00: under the [place] 0.5 mg(2 00 skin Medical mg/1.5 mL) weekly. Branch SenaIj semaglutide 2021-0 Yes [id number] .25mg inject [facility] (OZEMPIC) 05-12 104 0.25 mg ity of 0.25 mg or 00:00: under the [place] 0.5 mg(2 00 skin Medical mg/1.5 mL) weekly. Branch SenaIj semaglutide 2021-0 Yes [id number] .25mg inject [facility] (OZEMPIC) 05-12 104 0.25 mg ity of 0.25 mg or 00:00: under the [place] 0.5 mg(2 00 skin Medical mg/1.5 mL) weekly. Branch SenaIj semaglutide 2021-0 Yes [id number] .25mg inject [facility] (OZEMPIC) 05-12 104 0.25 mg ity of 0.25 mg or 00:00: under the [place] 0.5 mg(2 00 skin Medical mg/1.5 mL) weekly. Branch SenaIj semaglutide 2021-0 Yes [id number] .25mg inject [facility] (OZEMPIC) 05-12 104 0.25 mg ity of 0.25 mg or 00:00: under the [place] 0.5 mg(2 00 skin Medical mg/1.5 mL) weekly. Branch [place] semaglutide 2021-0 Yes [id number] .25mg inject [facility] (OZEMPIC) 05-12 104 0.25 mg ity of 0.25 mg or 00:00: under the [place] 0.5 mg(2 00 skin Medical mg/1.5 mL) weekly. Branch SenaIj semaglutide 2021-0 Yes [id number] .25mg inject [facility] (OZEMPIC) 05-12 104 0.25 mg ity of 0.25 mg or 00:00: under the [place] 0.5 mg(2 00 skin Medical mg/1.5 mL) weekly. Branch [place] semaglutide 2021-0 Yes [id number] .25mg inject [facility] (OZEMPIC) 05-12 104 0.25 mg ity of 0.25 mg or 00:00: under the [place] 0.5 mg(2 00 skin Medical mg/1.5 mL) weekly. Branch SenaIj semaglutide 2021-0 2021- No [id number] .25mg inject [facility] (OZEMPIC) 05-12 12- 104 0.25 mg ity of 0.25 mg or 00:00: 00:00 under the [place] 0.5 mg(2 00 :00 skin Medical mg/1.5 mL) weekly. Branch PnIj semaglutide 2021- No [id number] .25mg inject [facility] (OZEMPIC) 05-12 104 0.25 mg ity of 0.25 mg or 00:00: 00:00 under the [place] 0.5 mg(2 00 :00 skin Medical mg/1.5 mL) weekly. Branch PnIj semaglutide 2021- No [id number] .25mg inject [facility] (OZEMPIC) 05-12 104 0.25 mg ity of 0.25 mg or 00:00: 00:00 under the [place] 0.5 mg(2 00 :00 skin Medical mg/1.5 mL) weekly. Branch PnIj azelastine Yes 1{spray Use 1 [facility] vers 137 mcg 5-31 } [place] in ity of (0.1 %) 00:00: each [place] nasal spray 00 nostril 2 Med ical (two) Branch times daily. Use in each nostril as directed fluticasone Yes [id number] 2{puff} Inhale 2 [facility] propion-lauren 5-31 Puffs 2 ity o f meteroL 00:00: (two) [place] (ADVAIR 00 times Medical HFA) 230-21 daily. Branch mcg/actuati on inhaler fluticasone Yes [id number] USE 2 [facility] [place] propionate 5-31 SPRAYS IN ity of 50 00:00: EACH [place] mcg/actuati 00 NOSTRIL Medic al on nasal EVERY DAY Branch spray azelastine Yes 1{spray Use 1 [facility] vers 137 mcg 5-31 } [place] in ity of (0.1 %) 00:00: each [place] nasal spray 00 nostril 2 Med ical (two) Branch times daily. Use in each nostril as directed fluticasone Yes [id number] 2{puff} Inhale 2 [facility] propion-lauren 5-31 Puffs 2 ity o f meteroL 00:00: (two) [place] (ADVAIR 00 times Medical HFA) 230-21 daily. Branch mcg/actuati on inhaler fluticasone Yes [id number] USE 2 [facility] [place] propionate 5-31 SPRAYS IN ity of 50 00:00: EACH [place] mcg/actuati 00 NOSTRIL Medic al on nasal EVERY DAY Branch spray azelastine Yes 1{spray Use 1 [facility] vers 137 mcg 5-31 } [place] in ity of (0.1 %) 00:00: each [place] nasal spray 00 nostril 2 Med ical (two) Branch times daily. Use in each nostril as directed fluticasone 2021-0 Yes [id number] 2{puff} Inhale 2 [facility] propion-lauren 5-31 Puffs 2 ity o f meteroL 00:00: (two) [place] (ADVAIR 00 times Medical HFA) 230-21 daily. Branch mcg/actuati on inhaler fluticasone 0 Yes [id number] USE 2 Un [place] propionate 5-31 SPRAYS IN ity of 50 00:00: EACH [place] mcg/actuati 00 NOSTRIL Medic al on nasal EVERY DAY Branch spray azelastine 0 Yes 1{spray Use 1 [facility] vers 137 mcg 5-31 } [place] in ity of (0.1 %) 00:00: each [place] nasal spray 00 nostril 2 Med ical (two) Branch times daily. Use in each nostril as directed fluticasone 2021-0 Yes [id number] 2{puff} Inhale 2 [facility] propion-lauren 5-31 Puffs 2 ity o f meteroL 00:00: (two) [place] (ADVAIR 00 times Medical HFA) 230-21 daily. Branch mcg/actuati on inhaler fluticasone 2021-0 Yes [id number] USE 2 [facility] [place] propionate 5-31 SPRAYS IN ity of 50 00:00: EACH [place] mcg/actuati 00 NOSTRIL Medic al on nasal EVERY DAY Branch spray azelastine 2021-0 Yes 1{spray Use 1 [facility] vers 137 mcg 5-31 } [place] in ity of (0.1 %) 00:00: each [place] nasal spray 00 nostril 2 Med ical (two) Branch times daily. Use in each nostril as directed fluticasone 2021-0 Yes [id number] 2{puff} Inhale 2 [facility] propion-lauren 5-31 Puffs 2 ity o f meteroL 00:00: (two) [place] (ADVAIR 00 times Medical HFA) 230-21 daily. Branch mcg/actuati on inhaler fluticasone 2021-0 Yes [id number] USE 2 [facility] [place] propionate 5-31 SPRAYS IN ity of 50 00:00: EACH [place] mcg/actuati 00 NOSTRIL Medic al on nasal EVERY DAY Branch spray azelastine 2021-0 Yes 1{spray Use 1 [facility] vers 137 mcg 5-31 } [place] in ity of (0.1 %) 00:00: each [place] nasal spray 00 nostril 2 Med ical (two) Branch times daily. Use in each nostril as directed fluticasone 2021-0 Yes [id number] 2{puff} Inhale 2 [facility] propion-lauren 5-31 Puffs 2 ity o f meteroL 00:00: (two) [place] (ADVAIR 00 times Medical HFA) 230-21 daily. Branch mcg/actuati on inhaler fluticasone 2021-0 Yes [id number] USE 2 [facility] [place] propionate 5-31 SPRAYS IN ity of 50 00:00: EACH [place] mcg/actuati 00 NOSTRIL Medic al on nasal EVERY DAY Branch spray azelastine 2021-0 Yes 1{spray Use 1 [facility] vers 137 mcg 5-31 } [place] in ity of (0.1 %) 00:00: each [place] nasal spray 00 nostril 2 Med ical (two) Branch times daily. Use in each nostril as directed fluticasone 2021-0 Yes [id number] 2{puff} Inhale 2 [facility] propion-lauren 5-31 Puffs 2 ity o f meteroL 00:00: (two) [place] (ADVAIR 00 times Medical HFA) 230-21 daily. Branch mcg/actuati on inhaler fluticasone 2021-0 Yes [id number] USE 2 [facility] [place] propionate 5-31 SPRAYS IN ity of 50 00:00: EACH [place] mcg/actuati 00 NOSTRIL Medic al on nasal EVERY DAY Branch spray azelastine 2021-0 Yes 1{spray Use 1 [facility] vers 137 mcg 5-31 } [place] in ity of (0.1 %) 00:00: each [place] nasal spray 00 nostril 2 Med ical (two) Branch times daily. Use in each nostril as directed fluticasone Yes [id number] 2{puff} Inhale 2 [facility] propion-lauren 5-31 Puffs 2 ity o f meteroL 00:00: (two) [place] (ADVAIR 00 times Medical HFA) 230-21 daily. Branch mcg/actuati on inhaler fluticasone Yes [id number] USE 2 [facility] [place] propionate 5-31 SPRAYS IN ity of 50 00:00: EACH [place] mcg/actuati 00 NOSTRIL Medic al on nasal EVERY DAY Branch spray azelastine Yes 1{spray Use 1 [facility] vers 137 mcg 5-31 } [place] in ity of (0.1 %) 00:00: each [place] nasal spray 00 nostril 2 Med ical (two) Branch times daily. Use in each nostril as directed fluticasone 0 Yes [id number] 2{puff} Inhale 2 [facility] propion-lauren 5-31 Puffs 2 ity o f meteroL 00:00: (two) [place] (ADVAIR 00 times Medical HFA) 230-21 daily. Branch mcg/actuati on inhaler fluticasone 0 Yes [id number] USE 2 [facility] [place] propionate 5-31 SPRAYS IN ity of 50 00:00: EACH [place] mcg/actuati 00 NOSTRIL Medic al on nasal EVERY DAY Branch spray azelastine 0 Yes 1{spray Use 1 [facility] vers 137 mcg 5-31 } [place] in ity of (0.1 %) 00:00: each [place] nasal spray 00 nostril 2 Med ical (two) Branch times daily. Use in each nostril as directed fluticasone 0 Yes [id number] 2{puff} Inhale 2 [facility] propion-lauren 5-31 Puffs 2 ity o f meteroL 00:00: (two) [place] (ADVAIR 00 times Medical HFA) 230-21 daily. Branch mcg/actuati on inhaler fluticasone 0 Yes [id number] USE 2 [facility] [place] propionate 5-31 SPRAYS IN ity of 50 00:00: EACH [place] mcg/actuati 00 NOSTRIL Medic al on nasal EVERY DAY Branch spray azelastine 0 Yes 1{spray Use 1 [facility] vers 137 mcg 5-31 } [place] in ity of (0.1 %) 00:00: each [place] nasal spray 00 nostril 2 Med ical (two) Branch times daily. Use in each nostril as directed fluticasone Yes [id number] 2{puff} Inhale 2 [facility] propion-lauren 5-31 Puffs 2 ity o f meteroL 00:00: (two) [place] (ADVAIR 00 times Medical HFA) 230-21 daily. Branch mcg/actuati on inhaler fluticasone Yes [id number] USE 2 [facility] [place] propionate 5-31 SPRAYS IN ity of 50 00:00: EACH [place] mcg/actuati 00 NOSTRIL Medic al on nasal EVERY DAY Branch spray azelastine Yes 1{spray Use 1 [facility] vers 137 mcg 5-31 } [place] in ity of (0.1 %) 00:00: each [place] nasal spray 00 nostril 2 Med ical (two) Branch times daily. Use in each nostril as directed fluticasone 0 Yes [id number] 2{puff} Inhale 2 [facility] propion-lauren 5-31 Puffs 2 ity o f meteroL 00:00: (two) [place] (ADVAIR 00 times Medical HFA) 230-21 daily. Branch mcg/actuati on inhaler fluticasone Yes [id number] USE 2 [facility] [place] propionate 5-31 SPRAYS IN ity of 50 00:00: EACH [place] mcg/actuati 00 NOSTRIL Medic al on nasal EVERY DAY Branch spray azelastine 0 Yes 1{spray Use 1 [facility] vers 137 mcg 5-31 } [place] in ity of (0.1 %) 00:00: each [place] nasal spray 00 nostril 2 Med ical (two) Branch times daily. Use in each nostril as directed fluticasone 2021-0 Yes [id number] 2{puff} Inhale 2 [facility] propion-lauren 5-31 Puffs 2 ity o f meteroL 00:00: (two) [place] (ADVAIR 00 times Medical HFA) 230-21 daily. Branch mcg/actuati on inhaler fluticasone 0 Yes [id number] USE 2 [facility] [place] propionate 5-31 SPRAYS IN ity of 50 00:00: EACH [place] mcg/actuati 00 NOSTRIL Medic al on nasal EVERY DAY Branch spray azelastine Yes 1{spray Use 1 [facility] vers 137 mcg 5-31 } [place] in ity of (0.1 %) 00:00: each [place] nasal spray 00 nostril 2 Med ical (two) Branch times daily. Use in each nostril as directed fluticasone 2021-0 Yes [id number] 2{puff} Inhale 2 [facility] propion-lauren 5-31 Puffs 2 ity o f meteroL 00:00: (two) [place] (ADVAIR 00 times Medical HFA) 230-21 daily. Branch mcg/actuati on inhaler fluticasone 0 Yes [id number] USE 2 Un otoniel propionate 5-31 SPRAYS IN ity of 50 00:00: EACH [place] mcg/actuati 00 NOSTRIL Medic al on nasal EVERY DAY Branch spray azelastine 0 Yes 1{spray Use 1 Uni vers 137 mcg 5-31 } [place] in ity of (0.1 %) 00:00: each [place] nasal spray 00 nostril 2 Med ical (two) Branch times daily. Use in each nostril as directed fluticasone 2021-0 Yes [id number] 2{puff} Inhale 2 [facility] propion-lauren 5-31 Puffs 2 ity o f meteroL 00:00: (two) [place] (ADVAIR 00 times Medical HFA) 230-21 daily. Branch mcg/actuati on inhaler fluticasone 2021-0 Yes [id number] USE 2 Un otoniel propionate 5-31 SPRAYS IN ity of 50 00:00: EACH [place] mcg/actuati 00 NOSTRIL Medic al on nasal EVERY DAY Branch spray azelastine 0 Yes 1{spray Use 1 Uni vers 137 mcg 5-31 } [place] in ity of (0.1 %) 00:00: each [place] nasal spray 00 nostril 2 Med ical (two) Branch times daily. Use in each nostril as directed fluticasone 2021-0 Yes [id number] 2{puff} Inhale 2 [facility] propion-lauren 5-31 Puffs 2 ity o f meteroL 00:00: (two) [place] (ADVAIR 00 times Medical HFA) 230-21 daily. Branch mcg/actuati on inhaler fluticasone 2021-0 Yes [id number] USE 2 Un otoniel propionate 5-31 SPRAYS IN ity of 50 00:00: EACH [place] mcg/actuati 00 NOSTRIL Medic al on nasal EVERY DAY Branch spray azelastine 0 Yes 1{spray Use 1 Uni vers 137 mcg 5-31 } [place] in ity of (0.1 %) 00:00: each [place] nasal spray 00 nostril 2 Med ical (two) Branch times daily. Use in each nostril as directed fluticasone 2021-0 Yes [id number] 2{puff} Inhale 2 [facility] propion-lauren 5-31 Puffs 2 ity o f meteroL 00:00: (two) [place] (ADVAIR 00 times Medical HFA) 230-21 daily. Branch mcg/actuati on inhaler fluticasone 2021-0 Yes [id number] USE 2 Un otoniel propionate 5-31 SPRAYS IN ity of 50 00:00: EACH [place] mcg/actuati 00 NOSTRIL Medic al on nasal EVERY DAY Branch spray azelastine 0 Yes 1{spray Use 1 Uni vers 137 mcg 5-31 } [place] in ity of (0.1 %) 00:00: each [place] nasal spray 00 nostril 2 Med ical (two) Branch times daily. Use in each nostril as directed fluticasone 2021-0 Yes [id number] 2{puff} Inhale 2 [facility] propion-lauren 5-31 Puffs 2 ity o f meteroL 00:00: (two) [place] (ADVAIR 00 times Medical HFA) 230-21 daily. Branch mcg/actuati on inhaler fluticasone 2021-0 Yes [id number] USE 2 Un otoniel propionate 5-31 SPRAYS IN ity of 50 00:00: EACH [place] mcg/actuati 00 NOSTRIL Medic al on nasal EVERY DAY Branch spray azelastine 0 Yes 1{spray Use 1 Uni vers 137 mcg 5-31 } [place] in ity of (0.1 %) 00:00: each [place] nasal spray 00 nostril 2 Med ical (two) Branch times daily. Use in each nostril as directed fluticasone 0 Yes [id number] 2{puff} Inhale 2 [facility] propion-lauren 5-31 Puffs 2 ity o f meteroL 00:00: (two) [place] (ADVAIR 00 times Medical HFA) 230-21 daily. Branch mcg/actuati on inhaler fluticasone 0 Yes [id number] USE 2 Un otoniel propionate 5-31 SPRAYS IN ity of 50 00:00: EACH [place] mcg/actuati 00 NOSTRIL Medic al on nasal EVERY DAY Branch spray azelastine 0 Yes 1{spray Use 1 Uni vers 137 mcg 5-31 } [place] in ity of (0.1 %) 00:00: each [place] nasal spray 00 nostril 2 Med ical (two) Branch times daily. Use in each nostril as directed fluticasone 0 Yes [id number] 2{puff} Inhale 2 [facility] propion-lauren 5-31 Puffs 2 ity o f meteroL 00:00: (two) [place] (ADVAIR 00 times Medical HFA) 230-21 daily. Branch mcg/actuati on inhaler fluticasone 0 Yes [id number] USE 2 Un otoniel propionate 5-31 SPRAYS IN ity of 50 00:00: EACH [place] mcg/actuati 00 NOSTRIL Medic al on nasal EVERY DAY Branch spray azelastine 0 Yes 1{spray Use 1 Uni vers 137 mcg 5-31 } [place] in ity of (0.1 %) 00:00: each [place] nasal spray 00 nostril 2 Med ical (two) Branch times daily. Use in each nostril as directed fluticasone 0 Yes [id number] 2{puff} Inhale 2 [facility] propion-lauren 5-31 Puffs 2 ity o f meteroL 00:00: (two) [place] (ADVAIR 00 times Medical HFA) 230-21 daily. Branch mcg/actuati on inhaler fluticasone 0 Yes [id number] USE 2 Un otoniel propionate 5-31 SPRAYS IN ity of 50 00:00: EACH [place] mcg/actuati 00 NOSTRIL Medic al on nasal EVERY DAY Branch spray azelastine 0 Yes 1{spray Use 1 Uni vers 137 mcg 5-31 } [place] in ity of (0.1 %) 00:00: each [place] nasal spray 00 nostril 2 Med ical (two) Branch times daily. Use in each nostril as directed fluticasone Yes [id number] 2{puff} Inhale 2 [facility] propion-lauren 5-31 Puffs 2 ity o f meteroL 00:00: (two) [place] (ADVAIR 00 times Medical HFA) 230-21 daily. Branch mcg/actuati on inhaler fluticasone Yes [id number] USE 2 Un otoniel propionate 5-31 SPRAYS IN ity of 50 00:00: EACH [place] mcg/actuati 00 NOSTRIL Medic al on nasal EVERY DAY Branch spray azelastine 0 Yes 1{spray Use 1 Uni vers 137 mcg 5-31 } [place] in ity of (0.1 %) 00:00: each [place] nasal spray 00 nostril 2 Med ical (two) Branch times daily. Use in each nostril as directed fluticasone 0 Yes [id number] 2{puff} Inhale 2 [facility] propion-lauren 5-31 Puffs 2 ity o f meteroL 00:00: (two) [place] (ADVAIR 00 times Medical HFA) 230-21 daily. Branch mcg/actuati on inhaler fluticasone Yes [id number] USE 2 Un otoniel propionate 5-31 SPRAYS IN ity of 50 00:00: EACH [place] mcg/actuati 00 NOSTRIL Medic al on nasal EVERY DAY Branch spray azelastine 0 Yes 1{spray Use 1 Uni vers 137 mcg 5-31 } [place] in ity of (0.1 %) 00:00: each [place] nasal spray 00 nostril 2 Med ical (two) Branch times daily. Use in each nostril as directed fluticasone 0 Yes [id number] 2{puff} Inhale 2 [facility] propion-lauren 5-31 Puffs 2 ity o f meteroL 00:00: (two) [place] (ADVAIR 00 times Medical HFA) 230-21 daily. Branch mcg/actuati on inhaler fluticasone 0 Yes [id number] USE 2 Un otoniel propionate 5-31 SPRAYS IN ity of 50 00:00: EACH [place] mcg/actuati 00 NOSTRIL Medic al on nasal EVERY DAY Branch spray azelastine 0 Yes 1{spray Use 1 Uni vers 137 mcg 5-31 } [place] in ity of (0.1 %) 00:00: each [place] nasal spray 00 nostril 2 Med ical (two) Branch times daily. Use in each nostril as directed fluticasone 2021-0 Yes [id number] 2{puff} Inhale 2 [facility] propion-lauren 5-31 Puffs 2 ity o f meteroL 00:00: (two) [place] (ADVAIR 00 times Medical HFA) 230-21 daily. Branch mcg/actuati on inhaler fluticasone 0 Yes [id number] USE 2 Un otoniel propionate 5-31 SPRAYS IN ity of 50 00:00: EACH [place] mcg/actuati 00 NOSTRIL Medic al on nasal EVERY DAY Branch spray azelastine 0 Yes 1{spray Use 1 Uni vers 137 mcg 5-31 } [place] in ity of (0.1 %) 00:00: each [place] nasal spray 00 nostril 2 Med ical (two) Branch times daily. Use in each nostril as directed fluticasone 2021-0 Yes [id number] 2{puff} Inhale 2 [facility] propion-lauren 5-31 Puffs 2 ity o f meteroL 00:00: (two) [place] (ADVAIR 00 times Medical HFA) 230-21 daily. Branch mcg/actuati on inhaler fluticasone 2021-0 Yes [id number] USE 2 Un otoniel propionate 5-31 SPRAYS IN ity of 50 00:00: EACH [place] mcg/actuati 00 NOSTRIL Medic al on nasal EVERY DAY Branch spray azelastine 2021-0 Yes 1{spray Use 1 Uni vers 137 mcg 5-31 } [place] in ity of (0.1 %) 00:00: each [place] nasal spray 00 nostril 2 Med ical (two) Branch times daily. Use in each nostril as directed fluticasone 2021-0 Yes [id number] 2{puff} Inhale 2 [facility] propion-lauren 5-31 Puffs 2 ity o f meteroL 00:00: (two) [place] (ADVAIR 00 times Medical HFA) 230-21 daily. Branch mcg/actuati on inhaler fluticasone 2021-0 Yes [id number] USE 2 Un otoniel propionate 5-31 SPRAYS IN ity of 50 00:00: EACH [place] mcg/actuati 00 NOSTRIL Medic al on nasal EVERY DAY Branch spray azelastine 2021-0 Yes 1{spray Use 1 Uni vers 137 mcg 5-31 } [place] in ity of (0.1 %) 00:00: each [place] nasal spray 00 nostril 2 Med ical (two) Branch times daily. Use in each nostril as directed fluticasone 2021-0 Yes [id number] 2{puff} Inhale 2 [facility] propion-lauren 5-31 Puffs 2 ity o f meteroL 00:00: (two) [place] (ADVAIR 00 times Medical HFA) 230-21 daily. Branch mcg/actuati on inhaler fluticasone 2021-0 Yes [id number] USE 2 Un otoniel propionate 5-31 SPRAYS IN ity of 50 00:00: EACH [place] mcg/actuati 00 NOSTRIL Medic al on nasal EVERY DAY Branch spray azelastine 2021-0 Yes 1{spray Use 1 Uni vers 137 mcg 5-31 } [place] in ity of (0.1 %) 00:00: each [place] nasal spray 00 nostril 2 Med ical (two) Branch times daily. Use in each nostril as directed fluticasone 2021-0 Yes [id number] USE 2 Un otoniel propionate 5-31 SPRAYS IN ity of 50 00:00: EACH [place] mcg/actuati 00 NOSTRIL Medic al on nasal EVERY DAY Branch spray azelastine 2021-0 Yes 1{spray Use 1 Uni vers 137 mcg 5-31 } [place] in ity of (0.1 %) 00:00: each [place] nasal spray 00 nostril 2 Med ical (two) Branch times daily. Use in each nostril as directed fluticasone 2021-0 Yes [id number] USE 2 Un otoniel propionate 5-31 SPRAYS IN ity of 50 00:00: EACH [place] mcg/actuati 00 NOSTRIL Medic al on nasal EVERY DAY Branch spray azelastine 2021-0 Yes 1{spray Use 1 Uni vers 137 mcg 5-31 } [place] in ity of (0.1 %) 00:00: each [place] nasal spray 00 nostril 2 Med ical (two) Branch times daily. Use in each nostril as directed fluticasone 2021-0 Yes [id number] USE 2 Un otoniel propionate 5-31 SPRAYS IN ity of 50 00:00: EACH [place] mcg/actuati 00 NOSTRIL Medic al on nasal EVERY DAY Branch spray azelastine 2021-0 Yes 1{spray Use 1 Uni vers 137 mcg 5-31 } [place] in ity of (0.1 %) 00:00: each [place] nasal spray 00 nostril 2 Med ical (two) Branch times daily. Use in each nostril as directed fluticasone 2021-0 Yes [id number] USE 2 Un otoniel propionate 5-31 SPRAYS IN ity of 50 00:00: EACH [place] mcg/actuati 00 NOSTRIL Medic al on nasal EVERY DAY Branch spray azelastine 2021-0 Yes 1{spray Use 1 Uni vers 137 mcg 5-31 } [place] in ity of (0.1 %) 00:00: each [place] nasal spray 00 nostril 2 Med ical (two) Branch times daily. Use in each nostril as directed fluticasone 2021-0 Yes [id number] USE 2 Un otoniel propionate 5-31 SPRAYS IN ity of 50 00:00: EACH [place] mcg/actuati 00 NOSTRIL Medic al on nasal EVERY DAY Branch spray azelastine 2021-0 Yes 1{spray Use 1 Uni vers 137 mcg 5-31 } [place] in ity of (0.1 %) 00:00: each [place] nasal spray 00 nostril 2 Med ical (two) Branch times daily. Use in each nostril as directed fluticasone 2021-0 Yes [id number] USE 2 Un otoniel propionate 5-31 SPRAYS IN ity of 50 00:00: EACH [place] mcg/actuati 00 NOSTRIL Medic al on nasal EVERY DAY Branch spray azelastine 2021-0 Yes 1{spray Use 1 Uni vers 137 mcg 5-31 } [place] in ity of (0.1 %) 00:00: each [place] nasal spray 00 nostril 2 Med ical (two) Branch times daily. Use in each nostril as directed fluticasone 2-0 Yes [id number] USE 2 Un otoniel propionate 5-31 SPRAYS IN ity of 50 00:00: EACH [place] mcg/actuati 00 NOSTRIL Medic al on nasal EVERY DAY Branch spray azelastine 2021-0 Yes 1{spray Use 1 Uni vers 137 mcg 5-31 } [place] in ity of (0.1 %) 00:00: each [place] nasal spray 00 nostril 2 Med ical (two) Branch times daily. Use in each nostril as directed fluticasone 2-0 Yes [id number] USE 2 Un otoniel propionate 5-31 SPRAYS IN ity of 50 00:00: EACH [place] mcg/actuati 00 NOSTRIL Medic al on nasal EVERY DAY Branch spray azelastine 2021-0 Yes 1{spray Use 1 Uni vers 137 mcg 5-31 } [place] in ity of (0.1 %) 00:00: each [place] nasal spray 00 nostril 2 Med ical (two) Branch times daily. Use in each nostril as directed fluticasone 2-0 Yes [id number] USE 2 Un otoniel propionate 5-31 SPRAYS IN ity of 50 00:00: EACH [place] mcg/actuati 00 NOSTRIL Medic al on nasal EVERY DAY Branch spray azelastine 2021-0 Yes 1{spray Use 1 Uni vers 137 mcg 5-31 } [place] in ity of (0.1 %) 00:00: each [place] nasal spray 00 nostril 2 Med ical (two) Branch times daily. Use in each nostril as directed fluticasone 2-0 Yes [id number] USE 2 Un otoniel propionate 5-31 SPRAYS IN ity of 50 00:00: EACH [place] mcg/actuati 00 NOSTRIL Medic al on nasal EVERY DAY Branch spray azelastine 2021-0 Yes 1{spray Use 1 Uni vers 137 mcg 5-31 } [place] in ity of (0.1 %) 00:00: each [place] nasal spray 00 nostril 2 Med ical (two) Branch times daily. Use in each nostril as directed fluticasone 2-0 Yes [id number] USE 2 Un otoniel propionate 5-31 SPRAYS IN ity of 50 00:00: EACH [place] mcg/actuati 00 NOSTRIL Medic al on nasal EVERY DAY Branch spray azelastine 2021-0 Yes 1{spray Use 1 Uni vers 137 mcg 5-31 } [place] in ity of (0.1 %) 00:00: each [place] nasal spray 00 nostril 2 Med ical (two) Branch times daily. Use in each nostril as directed fluticasone 2021-0 Yes [id number] USE 2 Un otoniel propionate 5-31 SPRAYS IN ity of 50 00:00: EACH [place] mcg/actuati 00 NOSTRIL Medic al on nasal EVERY DAY Branch spray azelastine 2021-0 Yes 1{spray Use 1 Uni vers 137 mcg 5-31 } [place] in ity of (0.1 %) 00:00: each [place] nasal spray 00 nostril 2 Med ical (two) Branch times daily. Use in each nostril as directed fluticasone 2021-0 Yes [id number] USE 2 Un otoniel propionate 5-31 SPRAYS IN ity of 50 00:00: EACH [place] mcg/actuati 00 NOSTRIL Medic al on nasal EVERY DAY Branch spray azelastine 2021-0 Yes 1{spray Use 1 Uni vers 137 mcg 5-31 } [place] in ity of (0.1 %) 00:00: each [place] nasal spray 00 nostril 2 Med ical (two) Branch times daily. Use in each nostril as directed fluticasone 2021-0 Yes [id number] USE 2 Un otoniel propionate 5-31 SPRAYS IN ity of 50 00:00: EACH [place] mcg/actuati 00 NOSTRIL Medic al on nasal EVERY DAY Branch spray azelastine 2021-0 Yes 1{spray Use 1 Uni vers 137 mcg 5-31 } [place] in ity of (0.1 %) 00:00: each [place] nasal spray 00 nostril 2 Med ical (two) Branch times daily. Use in each nostril as directed fluticasone 2021-0 Yes [id number] USE 2 Un otoniel propionate 5-31 SPRAYS IN ity of 50 00:00: EACH [place] mcg/actuati 00 NOSTRIL Medic al on nasal EVERY DAY Branch spray azelastine 2021-0 Yes 1{spray Use 1 Uni vers 137 mcg 5-31 } [place] in ity of (0.1 %) 00:00: each [place] nasal spray 00 nostril 2 Med ical (two) Branch times daily. Use in each nostril as directed fluticasone 2-0 Yes [id number] USE 2 Un otoniel propionate 5-31 SPRAYS IN ity of 50 00:00: EACH [place] mcg/actuati 00 NOSTRIL Medic al on nasal EVERY DAY Branch spray azelastine 2021-0 Yes 1{spray Use 1 Uni vers 137 mcg 5-31 } [place] in ity of (0.1 %) 00:00: each [place] nasal spray 00 nostril 2 Med ical (two) Branch times daily. Use in each nostril as directed fluticasone 2021-0 Yes [id number] USE 2 Un otoniel propionate 5-31 SPRAYS IN ity of 50 00:00: EACH [place] mcg/actuati 00 NOSTRIL Medic al on nasal EVERY DAY Branch spray azelastine 2021-0 Yes 1{spray Use 1 Uni vers 137 mcg 5-31 } [place] in ity of (0.1 %) 00:00: each [place] nasal spray 00 nostril 2 Med ical (two) Branch times daily. Use in each nostril as directed fluticasone 2021-0 Yes [id number] USE 2 Un otoniel propionate 5-31 SPRAYS IN ity of 50 00:00: EACH [place] mcg/actuati 00 NOSTRIL Medic al on nasal EVERY DAY Branch spray azelastine 2021-0 Yes 1{spray Use 1 Uni vers 137 mcg 5-31 } [place] in ity of (0.1 %) 00:00: each [place] nasal spray 00 nostril 2 Med ical (two) Branch times daily. Use in each nostril as directed fluticasone 2-0 Yes [id number] USE 2 Un otoniel propionate 5-31 SPRAYS IN ity of 50 00:00: EACH [place] mcg/actuati 00 NOSTRIL Medic al on nasal EVERY DAY Branch spray azelastine 2021-0 Yes 1{spray Use 1 Uni vers 137 mcg 5-31 } [place] in ity of (0.1 %) 00:00: each [place] nasal spray 00 nostril 2 Med ical (two) Branch times daily. Use in each nostril as directed fluticasone 2022-0 Yes [id number] USE 2 Un otoniel propionate 5-31 SPRAYS IN ity of 50 00:00: EACH [place] mcg/actuati 00 NOSTRIL Medic al on nasal EVERY DAY Branch spray azelastine 0 Yes 1{spray Use 1 Uni vers 137 mcg 5-31 } [place] in ity of (0.1 %) 00:00: each [place] nasal spray 00 nostril 2 Med ical (two) Branch times daily. Use in each nostril as directed fluticasone 2021-0 Yes [id number] USE 2 Un otoniel propionate 5-31 SPRAYS IN ity of 50 00:00: EACH [place] mcg/actuati 00 NOSTRIL Medic al on nasal EVERY DAY Branch spray azelastine 0 Yes 1{spray Use 1 Uni vers 137 mcg 5-31 } [place] in ity of (0.1 %) 00:00: each [place] nasal spray 00 nostril 2 Med ical (two) Branch times daily. Use in each nostril as directed fluticasone 2021-0 Yes [id number] USE 2 Un otoniel propionate 5-31 SPRAYS IN ity of 50 00:00: EACH [place] mcg/actuati 00 NOSTRIL Medic al on nasal EVERY DAY Branch spray azelastine 2021-0 Yes 1{spray Use 1 Uni vers 137 mcg 5-31 } [place] in ity of (0.1 %) 00:00: each [place] nasal spray 00 nostril 2 Med ical (two) Branch times daily. Use in each nostril as directed fluticasone 2021-0 Yes [id number] USE 2 Un otoniel propionate 5-31 SPRAYS IN ity of 50 00:00: EACH [place] mcg/actuati 00 NOSTRIL Medic al on nasal EVERY DAY Branch spray azelastine 2021-0 Yes 1{spray Use 1 Uni vers 137 mcg 5-31 } [place] in ity of (0.1 %) 00:00: each [place] nasal spray 00 nostril 2 Med ical (two) Branch times daily. Use in each nostril as directed fluticasone 2021-0 Yes [id number] USE 2 Un otoniel propionate 5-31 SPRAYS IN ity of 50 00:00: EACH [place] mcg/actuati 00 NOSTRIL Medic al on nasal EVERY DAY Branch spray azelastine 2021-0 Yes 1{spray Use 1 Uni vers 137 mcg 5-31 } [place] in ity of (0.1 %) 00:00: each [place] nasal spray 00 nostril 2 Med ical (two) Branch times daily. Use in each nostril as directed fluticasone 2021-0 Yes [id number] USE 2 Un otoniel propionate 5-31 SPRAYS IN ity of 50 00:00: EACH [place] mcg/actuati 00 NOSTRIL Medic al on nasal EVERY DAY Branch spray azelastine 2021-0 Yes 1{spray Use 1 Uni vers 137 mcg 5-31 } [place] in ity of (0.1 %) 00:00: each [place] nasal spray 00 nostril 2 Med ical (two) Branch times daily. Use in each nostril as directed fluticasone 2021-0 Yes [id number] USE 2 Un otoniel propionate 5-31 SPRAYS IN ity of 50 00:00: EACH [place] mcg/actuati 00 NOSTRIL Medic al on nasal EVERY DAY Branch spray azelastine 2021-0 Yes 1{spray Use 1 Uni vers 137 mcg 5-31 } [place] in ity of (0.1 %) 00:00: each [place] nasal spray 00 nostril 2 Med ical (two) Branch times daily. Use in each nostril as directed fluticasone 2021-0 Yes [id number] USE 2 Un otoniel propionate 5-31 SPRAYS IN ity of 50 00:00: EACH [place] mcg/actuati 00 NOSTRIL Medic al on nasal EVERY DAY Branch spray azelastine 2021-0 Yes 1{spray Use 1 Uni vers 137 mcg 5-31 } [place] in ity of (0.1 %) 00:00: each [place] nasal spray 00 nostril 2 Med ical (two) Branch times daily. Use in each nostril as directed fluticasone 2021-0 Yes [id number] USE 2 Un otoniel propionate 5-31 SPRAYS IN ity of 50 00:00: EACH [place] mcg/actuati 00 NOSTRIL Medic al on nasal EVERY DAY Branch spray azelastine 2021-0 Yes 1{spray Use 1 Uni vers 137 mcg 5-31 } [place] in ity of (0.1 %) 00:00: each [place] nasal spray 00 nostril 2 Med ical (two) Branch times daily. Use in each nostril as directed fluticasone Yes [id number] USE 2 Un otoniel propionate 5-31 SPRAYS IN ity of 50 00:00: EACH [place] mcg/actuati 00 NOSTRIL Medic al on nasal EVERY DAY Branch spray azelastine Yes 1{spray Use 1 Uni vers 137 mcg 5-31 } [place] in ity of (0.1 %) 00:00: each [place] nasal spray 00 nostril 2 Med ical (two) Branch times daily. Use in each nostril as directed fluticasone Yes [id number] USE 2 Un otoniel propionate 5-31 SPRAYS IN ity of 50 00:00: EACH [place] mcg/actuati 00 NOSTRIL Medic al on nasal EVERY DAY Branch spray fluticasone Yes [id number] USE 2 Un otoniel propionate 5-31 SPRAYS IN ity of 50 00:00: EACH [place] mcg/actuati 00 NOSTRIL Medic al on nasal EVERY DAY Branch spray fluticasone Yes [id number] USE 2 Un otoniel propionate 5-31 SPRAYS IN ity of 50 00:00: EACH [place] mcg/actuati 00 NOSTRIL Medic al on nasal EVERY DAY Branch spray fluticasone Yes [id number] USE 2 Un otoniel propionate 5-31 SPRAYS IN ity of 50 00:00: EACH [place] mcg/actuati 00 NOSTRIL Medic al on nasal EVERY DAY Branch spray fluticasone 0 Yes [id number] USE 2 Un otoniel propionate 5-31 SPRAYS IN ity of 50 00:00: EACH [place] mcg/actuati 00 NOSTRIL Medic al on nasal EVERY DAY Branch spray fluticasone 0 Yes [id number] USE 2 Un otoniel propionate 5-31 SPRAYS IN ity of 50 00:00: EACH [place] mcg/actuati 00 NOSTRIL Medic al on nasal EVERY DAY Branch spray fluticasone 0 Yes [id number] USE 2 Un otoniel propionate 5-31 SPRAYS IN ity of 50 00:00: EACH [place] mcg/actuati 00 NOSTRIL Medic al on nasal EVERY DAY Branch spray fluticasone 0 Yes [id number] USE 2 Un otoniel propionate 5-31 SPRAYS IN ity of 50 00:00: EACH [place] mcg/actuati 00 NOSTRIL Medic al on nasal EVERY DAY Branch spray fluticasone Yes [id number] USE 2 Un otoniel propionate 5-31 SPRAYS IN ity of 50 00:00: EACH [place] mcg/actuati 00 NOSTRIL Medic al on nasal EVERY DAY Branch spray fluticasone Yes [id number] USE 2 Un otoniel propionate 5-31 SPRAYS IN ity of 50 00:00: EACH [place] mcg/actuati 00 NOSTRIL Medic al on nasal EVERY DAY Branch spray fluticasone Yes [id number] USE 2 Un otoniel propionate 5-31 SPRAYS IN ity of 50 00:00: EACH [place] mcg/actuati 00 NOSTRIL Medic al on nasal EVERY DAY Branch spray fluticasone Yes [id number] USE 2 Un otoniel propionate 5-31 SPRAYS IN ity of 50 00:00: EACH [place] mcg/actuati NOSTRIL Medic al on nasal EVERY DAY Branch spray fluticasone Yes [id number] USE 2 Un otoniel propionate 5-31 SPRAYS IN ity of 50 00:00: EACH [place] mcg/actuati 00 NOSTRIL Medic al on nasal EVERY DAY Branch spray fluticasone Yes [id number] USE 2 Un otoniel propionate 5-31 SPRAYS IN ity of 50 00:00: EACH [place] mcg/actuati 00 NOSTRIL Medic al on nasal EVERY DAY Branch spray fluticasone Yes [id number] USE 2 Un otoniel propionate 5-31 SPRAYS IN ity of 50 00:00: EACH [place] mcg/actuati 00 NOSTRIL Medic al on nasal EVERY DAY Branch spray fluticasone Yes [id number] USE 2 Un otoniel propionate 5-31 SPRAYS IN ity of 50 00:00: EACH [place] mcg/actuati 00 NOSTRIL Medic al on nasal EVERY DAY Branch spray fluticasone Yes [id number] USE 2 Un otoniel propionate 5-31 SPRAYS IN ity of 50 00:00: EACH [place] mcg/actuati 00 NOSTRIL Medic al on nasal EVERY DAY Branch spray fluticasone Yes [id number] USE 2 Un otoniel propionate 5-31 SPRAYS IN ity of 50 00:00: EACH [place] mcg/actuati 00 NOSTRIL Medic al on nasal EVERY DAY Branch spray fluticasone Yes [id number] USE 2 Un otoniel propionate 5-31 SPRAYS IN ity of 50 00:00: EACH [place] mcg/actuati 00 NOSTRIL Medic al on nasal EVERY DAY Branch spray fluticasone Yes [id number] USE 2 Un otoniel propionate 5-31 SPRAYS IN ity of 50 00:00: EACH [place] mcg/actuati 00 NOSTRIL Medic al on nasal EVERY DAY Branch spray fluticasone Yes [id number] USE 2 Un otoniel propionate 5-31 SPRAYS IN ity of 50 00:00: EACH [place] mcg/actuati 00 NOSTRIL Medic al on nasal EVERY DAY Branch spray fluticasone Yes [id number] USE 2 Un otoniel propionate 5-31 SPRAYS IN ity of 50 00:00: EACH [place] mcg/actuati NOSTRIL Medic al on nasal EVERY DAY Branch spray fluticasone Yes [id number] USE 2 Un otoniel propionate 5-31 SPRAYS IN ity of 50 00:00: EACH [place] mcg/actuati 00 NOSTRIL Medic al on nasal EVERY DAY Branch spray fluticasone Yes [id number] USE 2 Un otoniel propionate 5-31 SPRAYS IN ity of 50 00:00: EACH [place] mcg/actuati 00 NOSTRIL Medic al on nasal EVERY DAY Branch spray fluticasone Yes [id number] USE 2 Un otoniel propionate 5-31 SPRAYS IN ity of 50 00:00: EACH [place] mcg/actuati 00 NOSTRIL Medic al on nasal EVERY DAY Branch spray fluticasone Yes [id number] USE 2 Un otoniel propionate 5-31 SPRAYS IN ity of 50 00:00: EACH [place] mcg/actuati 00 NOSTRIL Medic al on nasal EVERY DAY Branch spray fluticasone Yes [id number] USE 2 Un otoniel propionate 5-31 SPRAYS IN ity of 50 00:00: EACH [place] mcg/actuati 00 NOSTRIL Medic al on nasal EVERY DAY Branch spray fluticasone Yes [id number] USE 2 Un otoniel propionate 5-31 SPRAYS IN ity of 50 00:00: EACH [place] mcg/actuati 00 NOSTRIL Medic al on nasal EVERY DAY Branch spray fluticasone Yes [id number] USE 2 Un otoniel propionate 5-31 SPRAYS IN ity of 50 00:00: EACH [place] mcg/actuati 00 NOSTRIL Medic al on nasal EVERY DAY Branch spray fluticasone Yes [id number] USE 2 Un otoniel propionate 5-31 SPRAYS IN ity of 50 00:00: EACH [place] mcg/actuati 00 NOSTRIL Medic al on nasal EVERY DAY Branch spray fluticasone Yes [id number] USE 2 Un otoniel propionate 5-31 SPRAYS IN ity of 50 00:00: EACH [place] mcg/actuati 00 NOSTRIL Medic al on nasal EVERY DAY Branch spray fluticasone Yes [id number] USE 2 Un otoniel propionate 5-31 SPRAYS IN ity of 50 00:00: EACH [place] mcg/actuati NOSTRIL Medic al on nasal EVERY DAY Branch spray fluticasone Yes [id number] USE 2 Un otoniel propionate 5-31 SPRAYS IN ity of 50 00:00: EACH [place] mcg/actuati 00 NOSTRIL Medic al on nasal EVERY DAY Branch spray fluticasone Yes [id number] USE 2 Un otoniel propionate 5-31 SPRAYS IN ity of 50 00:00: EACH [place] mcg/actuati 00 NOSTRIL Medic al on nasal EVERY DAY Branch spray fluticasone Yes [id number] USE 2 Un otoniel propionate 5-31 SPRAYS IN ity of 50 00:00: EACH [place] mcg/actuati 00 NOSTRIL Medic al on nasal EVERY DAY Branch spray fluticasone Yes [id number] USE 2 Un otoniel propionate 5-31 SPRAYS IN ity of 50 00:00: EACH [place] mcg/actuati 00 NOSTRIL Medic al on nasal EVERY DAY Branch spray fluticasone Yes [id number] USE 2 Un otoniel propionate 5-31 SPRAYS IN ity of 50 00:00: EACH [place] mcg/actuati 00 NOSTRIL Medic al on nasal EVERY DAY Branch spray fluticasone Yes [id number] USE 2 Un otoniel propionate 5-31 SPRAYS IN ity of 50 00:00: EACH [place] mcg/actuati 00 NOSTRIL Medic al on nasal EVERY DAY Branch spray fluticasone Yes [id number] USE 2 Un o[facility]iel propionate 5-31 SPRAYS IN ity of 50 00:00: EACH [place] mcg/actuati 00 NOSTRIL Medic al on nasal EVERY DAY Branch spray fluticasone Yes [id number] USE 2 Un otoniel propionate 5-31 SPRAYS IN ity of 50 00:00: EACH [place] mcg/actuati 00 NOSTRIL Medic al on nasal EVERY DAY Branch spray fluticasone Yes [id number] USE 2 Un otoniel propionate 5-31 SPRAYS IN ity of 50 00:00: EACH [place] mcg/actuati 00 NOSTRIL Medic al on nasal EVERY DAY Branch spray fluticasone Yes [id number] USE 2 Un otoniel propionate 5-31 SPRAYS IN ity of 50 00:00: EACH [place] mcg/actuati NOSTRIL Medic al on nasal EVERY DAY Branch spray fluticasone Yes [id number] USE 2 Un otoniel propionate 5-31 SPRAYS IN ity of 50 00:00: EACH [place] mcg/actuati 00 NOSTRIL Medic al on nasal EVERY DAY Branch spray fluticasone Yes [id number] USE 2 Un otoniel propionate 5-31 SPRAYS IN ity of 50 00:00: EACH [place] mcg/actuati 00 NOSTRIL Medic al on nasal EVERY DAY Branch spray fluticasone Yes [id number] USE 2 [facility] propionate 5-31 SPRAYS IN ity of 50 00:00: EACH [place] mcg/actuati 00 NOSTRIL Medic al on nasal EVERY DAY Branch spray fluticasone Yes [id number] USE 2 [facility] propionate 5-31 SPRAYS IN ity of 50 00:00: EACH [place] mcg/actuati 00 NOSTRIL Medic al on nasal EVERY DAY Branch spray fluticasone Yes [id number] USE 2 [facility] propionate 5-31 SPRAYS IN ity of 50 00:00: EACH [place] mcg/actuati 00 NOSTRIL Medic al on nasal EVERY DAY Branch spray fluticasone Yes [id number] USE 2 [facility] propionate 5-31 SPRAYS IN ity of 50 00:00: EACH [place] mcg/actuati 00 NOSTRIL Medic al on nasal EVERY DAY Branch spray fluticasone Yes [id number] USE 2 [facility] propionate 5-31 SPRAYS IN ity of 50 00:00: EACH [place] mcg/actuati 00 NOSTRIL Medic al on nasal EVERY DAY Branch spray azelastine 2022- No 1{spray Use 1 [facility] 137 mcg 5-31 01-10 } [place] in ity of (0.1 %) 00:00: 00:00 each [place] nasal spray 00 :00 nostril 2 Med ical (two) Branch times daily. Use in each nostril as directed azelastine 2022- No 1{spray Use 1 [facility] 137 mcg 5-31 01-10 } [place] in ity of (0.1 %) 00:00: 00:00 each [place] nasal spray 00 :00 nostril 2 Med ical (two) Branch times daily. Use in each nostril as directed azelastine 2022- No 1{spray Use 1 [facility] 137 mcg 5-31 01-10 } [place] in ity of (0.1 %) 00:00: 00:00 each [place] nasal spray 00 :00 nostril 2 Med ical (two) Branch times daily. Use in each nostril as directed azelastine 2022- No 1{spray Use 1 [facility] 137 mcg 5-31 01-10 } [place] in ity of (0.1 %) 00:00: 00:00 each [place] nasal spray 00 :00 nostril 2 Med ical (two) Branch times daily. Use in each nostril as directed fluticasone 2021- No [id number] 2{puff} Inhale 2 [facility] propion-lauren 5-31 11-04 Puffs 2 ity of meteroL 00:00: 00:00 (two) [place] (ADVAIR 00 :00 times Medical HFA) 230-21 daily. Branch mcg/actuati on inhaler blood sugar Yes [id number] E 11.9. [facility] diagnostic 5-20 Please ity of (BLOOD 00:00: provide [place] GLUCOSE 00 test Medical TEST) strip strips Branch proofread by insurance. Use test strips 3 times per day. Lancets 2-0 Yes [id number] E 11.9, [facility] Misc 5-20 please ity of 00:00: provide [place] 00 brand of Medical lancets Branch covered by insurance. Test 3 times per day. Alcohol 2-0 Yes [id number] Apply to [facility] Swabs 5-20 area(s) 3 ity of (ALCOHOL 00:00: (three) [place] PADS) PadM 00 times Medical daily. Branch blood sugar 2-0 Yes [id number] E 11.9. [facility] diagnostic 5-20 Please ity of (BLOOD 00:00: provide [place] GLUCOSE 00 test Medical TEST) strip strips Branch proofread by insurance. Use test strips 3 times per day. Lancets 2021-0 Yes [id number] E 11.9, [facility] Misc 5-20 please ity of 00:00: provide [place] 00 brand of Medical lancets Branch covered by insurance. Test 3 times per day. Alcohol 2021-0 Yes [id number] Apply to [facility] Swabs 5-20 area(s) 3 ity of (ALCOHOL 00:00: (three) [place] PADS) PadM 00 times Medical daily. Branch blood sugar 2021-0 Yes [id number] E 11.9. [facility] diagnostic 5-20 Please ity of (BLOOD 00:00: provide [place] GLUCOSE 00 test Medical TEST) strip strips Branch proofread by insurance. Use test strips 3 times per day. Lancets 2021-0 Yes [id number] E 11.9, [facility] Misc 5-20 please ity of 00:00: provide [place] 00 brand of Medical lancets Branch covered by insurance. Test 3 times per day. Alcohol 2-0 Yes [id number] Apply to [facility] Swabs 5-20 area(s) 3 ity of (ALCOHOL 00:00: (three) [place] PADS) PadM 00 times Medical daily. Branch blood sugar 2-0 Yes [id number] E 11.9. [facility] diagnostic 5-20 Please ity of (BLOOD 00:00: provide [place] GLUCOSE 00 test Medical TEST) strip strips Branch proofread by insurance. Use test strips 3 times per day. Lancets 2-0 Yes [id number] E 11.9, [facility] Misc 5-20 please ity of 00:00: provide [place] 00 brand of Medical lancets Branch covered by insurance. Test 3 times per day. Alcohol 2-0 Yes [id number] Apply to [facility] Swabs 5-20 area(s) 3 ity of (ALCOHOL 00:00: (three) [place] PADS) PadM 00 times Medical daily. Branch blood sugar 2-0 Yes [id number] E 11.9. [facility] diagnostic 5-20 Please ity of (BLOOD 00:00: provide [place] GLUCOSE 00 test Medical TEST) strip strips Branch proofread by insurance. Use test strips 3 times per day. Lancets 2-0 Yes [id number] E 11.9, [facility] Misc 5-20 please ity of 00:00: provide [place] 00 brand of Medical lancets Branch covered by insurance. Test 3 times per day. Alcohol 2021-0 Yes [id number] Apply to [facility] Swabs 5-20 area(s) 3 ity of (ALCOHOL 00:00: (three) [place] PADS) PadM 00 times Medical daily. Branch blood sugar 2021-0 Yes [id number] E 11.9. [facility] diagnostic 5-20 Please ity of (BLOOD 00:00: provide [place] GLUCOSE 00 test Medical TEST) strip strips Branch proofread by insurance. Use test strips 3 times per day. Lancets 2021-0 Yes [id number] E 11.9, [facility] Misc 5-20 please ity of 00:00: provide [place] 00 brand of Medical lancets Branch covered by insurance. Test 3 times per day. Alcohol 2021-0 Yes [id number] Apply to [facility] Swabs 5-20 area(s) 3 ity of (ALCOHOL 00:00: (three) [place] PADS) PadM 00 times Medical daily. Branch blood sugar 2-0 Yes [id number] E 11.9. [facility] diagnostic 5-20 Please ity of (BLOOD 00:00: provide [place] GLUCOSE 00 test Medical TEST) strip strips Branch proofread by insurance. Use test strips 3 times per day. Lancets 2-0 Yes [id number] E 11.9, [facility] Misc 5-20 please ity of 00:00: provide [place] 00 brand of Medical lancets Branch covered by insurance. Test 3 times per day. Alcohol 2-0 Yes [id number] Apply to [facility] Swabs 5-20 area(s) 3 ity of (ALCOHOL 00:00: (three) [place] PADS) PadM 00 times Medical daily. Branch blood sugar 2-0 Yes [id number] E 11.9. [facility] diagnostic 5-20 Please ity of (BLOOD 00:00: provide [place] GLUCOSE 00 test Medical TEST) strip strips Branch proofread by insurance. Use test strips 3 times per day. Lancets 2-0 Yes [id number] E 11.9, [facility] Misc 5-20 please ity of 00:00: provide [place] 00 brand of Medical lancets Branch covered by insurance. Test 3 times per day. Alcohol 2-0 Yes [id number] Apply to [facility] Swabs 5-20 area(s) 3 ity of (ALCOHOL 00:00: (three) [place] PADS) PadM 00 times Medical daily. Branch blood sugar 2-0 Yes [id number] E 11.9. [facility] diagnostic 5-20 Please ity of (BLOOD 00:00: provide [place] GLUCOSE 00 test Medical TEST) strip strips Branch proofread by insurance. Use test strips 3 times per day. Lancets 2021-0 Yes [id number] E 11.9, [facility] Misc 5-20 please ity of 00:00: provide [place] 00 brand of Medical lancets Branch covered by insurance. Test 3 times per day. Alcohol 2021-0 Yes [id number] Apply to [facility] Swabs 5-20 area(s) 3 ity of (ALCOHOL 00:00: (three) [place] PADS) PadM 00 times Medical daily. Branch blood sugar 2-0 Yes [id number] E 11.9. [facility] diagnostic 5-20 Please ity of (BLOOD 00:00: provide [place] GLUCOSE 00 test Medical TEST) strip strips Branch proofread by insurance. Use test strips 3 times per day. Lancets 2-0 Yes [id number] E 11.9, [facility] Misc 5-20 please ity of 00:00: provide [place] 00 brand of Medical lancets Branch covered by insurance. Test 3 times per day. Alcohol 2-0 Yes [id number] Apply to [facility] Swabs 5-20 area(s) 3 ity of (ALCOHOL 00:00: (three) [place] PADS) PadM 00 times Medical daily. Branch blood sugar 2022-0 Yes [id number] E 11.9. [facility] diagnostic 5-20 Please ity of (BLOOD 00:00: provide [place] GLUCOSE 00 test Medical TEST) strip strips Branch proofread by insurance. Use test strips 3 times per day. Lancets 2-0 Yes [id number] E 11.9, [facility] Misc 5-20 please ity of 00:00: provide [place] 00 brand of Medical lancets Branch covered by insurance. Test 3 times per day. Alcohol 2-0 Yes [id number] Apply to [facility] Swabs 5-20 area(s) 3 ity of (ALCOHOL 00:00: (three) [place] PADS) PadM 00 times Medical daily. Branch blood sugar 2-0 Yes [id number] E 11.9. [facility] diagnostic 5-20 Please ity of (BLOOD 00:00: provide [place] GLUCOSE 00 test Medical TEST) strip strips Branch proofread by insurance. Use test strips 3 times per day. Lancets 2021-0 Yes [id number] E 11.9, [facility] Misc 5-20 please ity of 00:00: provide [place] 00 brand of Medical lancets Branch covered by insurance. Test 3 times per day. Alcohol 2-0 Yes [id number] Apply to [facility] Swabs 5-20 area(s) 3 ity of (ALCOHOL 00:00: (three) [place] PADS) PadM 00 times Medical daily. Branch blood sugar 2-0 Yes [id number] E 11.9. [facility] diagnostic 5-20 Please ity of (BLOOD 00:00: provide [place] GLUCOSE 00 test Medical TEST) strip strips Branch proofread by insurance. Use test strips 3 times per day. Lancets 2-0 Yes [id number] E 11.9, [facility] Misc 5-20 please ity of 00:00: provide [place] 00 brand of Medical lancets Branch covered by insurance. Test 3 times per day. Alcohol 2022-0 Yes [id number] Apply to [facility] Swabs 5-20 area(s) 3 ity of (ALCOHOL 00:00: (three) [place] PADS) PadM 00 times Medical daily. Branch blood sugar 2022-0 Yes [id number] E 11.9. [facility] diagnostic 5-20 Please ity of (BLOOD 00:00: provide [place] GLUCOSE 00 test Medical TEST) strip strips Branch proofread by insurance. Use test strips 3 times per day. Lancets 2022-0 Yes [id number] E 11.9, [facility] Misc 5-20 please ity of 00:00: provide [place] 00 brand of Medical lancets Branch covered by insurance. Test 3 times per day. Alcohol 2022-0 Yes [id number] Apply to [facility] Swabs 5-20 area(s) 3 ity of (ALCOHOL 00:00: (three) [place] PADS) PadM 00 times Medical daily. Branch blood sugar 2-0 Yes [id number] E 11.9. [facility] diagnostic 5-20 Please ity of (BLOOD 00:00: provide [place] GLUCOSE 00 test Medical TEST) strip strips Branch proofread by insurance. Use test strips 3 times per day. Lancets 2-0 Yes [id number] E 11.9, [facility] Misc 5-20 please ity of 00:00: provide [place] 00 brand of Medical lancets Branch covered by insurance. Test 3 times per day. Alcohol 2021-0 Yes [id number] Apply to [facility] Swabs 5-20 area(s) 3 ity of (ALCOHOL 00:00: (three) [place] PADS) PadM 00 times Medical daily. Branch blood sugar 2-0 Yes [id number] E 11.9. [facility] diagnostic 5-20 Please ity of (BLOOD 00:00: provide [place] GLUCOSE 00 test Medical TEST) strip strips Branch proofread by insurance. Use test strips 3 times per day. Lancets 2-0 Yes [id number] E 11.9, [facility] Misc 5-20 please ity of 00:00: provide [place] 00 brand of Medical lancets Branch covered by insurance. Test 3 times per day. Alcohol 2-0 Yes [id number] Apply to [facility] Swabs 5-20 area(s) 3 ity of (ALCOHOL 00:00: (three) [place] PADS) PadM 00 times Medical daily. Branch blood sugar 2-0 Yes [id number] E 11.9. [facility] diagnostic 5-20 Please ity of (BLOOD 00:00: provide [place] GLUCOSE 00 test Medical TEST) strip strips Branch proofread by insurance. Use test strips 3 times per day. Lancets 2022-0 Yes [id number] E 11.9, [facility] Misc 5-20 please ity of 00:00: provide [place] 00 brand of Medical lancets Branch covered by insurance. Test 3 times per day. Alcohol 2-0 Yes [id number] Apply to [facility] Swabs 5-20 area(s) 3 ity of (ALCOHOL 00:00: (three) [place] PADS) PadM 00 times Medical daily. Branch blood sugar 2-0 Yes [id number] E 11.9. [facility] diagnostic 5-20 Please ity of (BLOOD 00:00: provide [place] GLUCOSE 00 test Medical TEST) strip strips Branch proofread by insurance. Use test strips 3 times per day. Lancets 2-0 Yes [id number] E 11.9, [facility] Misc 5-20 please ity of 00:00: provide [place] 00 brand of Medical lancets Branch covered by insurance. Test 3 times per day. Alcohol 2-0 Yes [id number] Apply to [facility] Swabs 5-20 area(s) 3 ity of (ALCOHOL 00:00: (three) [place] PADS) PadM 00 times Medical daily. Branch blood sugar 2-0 Yes [id number] E 11.9. [facility] diagnostic 5-20 Please ity of (BLOOD 00:00: provide [place] GLUCOSE 00 test Medical TEST) strip strips Branch proofread by insurance. Use test strips 3 times per day. Lancets 2-0 Yes [id number] E 11.9, [facility] Misc 5-20 please ity of 00:00: provide [place] 00 brand of Medical lancets Branch covered by insurance. Test 3 times per day. Alcohol 2-0 Yes [id number] Apply to [facility] Swabs 5-20 area(s) 3 ity of (ALCOHOL 00:00: (three) [place] PADS) PadM 00 times Medical daily. Branch blood sugar 2022-0 Yes [id number] E 11.9. [facility] diagnostic 5-20 Please ity of (BLOOD 00:00: provide [place] GLUCOSE 00 test Medical TEST) strip strips Branch proofread by insurance. Use test strips 3 times per day. Lancets 2022-0 Yes [id number] E 11.9, [facility] Misc 5-20 please ity of 00:00: provide [place] 00 brand of Medical lancets Branch covered by insurance. Test 3 times per day. Alcohol 2022-0 Yes [id number] Apply to [facility] Swabs 5-20 area(s) 3 ity of (ALCOHOL 00:00: (three) [place] PADS) PadM 00 times Medical daily. Branch blood sugar 2022-0 Yes [id number] E 11.9. [facility] diagnostic 5-20 Please ity of (BLOOD 00:00: provide [place] GLUCOSE 00 test Medical TEST) strip strips Branch proofread by insurance. Use test strips 3 times per day. Lancets 2-0 Yes [id number] E 11.9, [facility] Misc 5-20 please ity of 00:00: provide [place] 00 brand of Medical lancets Branch covered by insurance. Test 3 times per day. Alcohol 2-0 Yes [id number] Apply to [facility] Swabs 5-20 area(s) 3 ity of (ALCOHOL 00:00: (three) [place] PADS) PadM 00 times Medical daily. Branch blood sugar 2-0 Yes [id number] E 11.9. [facility] diagnostic 5-20 Please ity of (BLOOD 00:00: provide [place] GLUCOSE 00 test Medical TEST) strip strips Branch proofread by insurance. Use test strips 3 times per day. Lancets 2-0 Yes [id number] E 11.9, [facility] Misc 5-20 please ity of 00:00: provide [place] 00 brand of Medical lancets Branch covered by insurance. Test 3 times per day. Alcohol 2021-0 Yes [id number] Apply to [facility] Swabs 5-20 area(s) 3 ity of (ALCOHOL 00:00: (three) [place] PADS) PadM 00 times Medical daily. Branch blood sugar 2-0 Yes [id number] E 11.9. [facility] diagnostic 5-20 Please ity of (BLOOD 00:00: provide [place] GLUCOSE 00 test Medical TEST) strip strips Branch proofread by insurance. Use test strips 3 times per day. Lancets 2-0 Yes [id number] E 11.9, [facility] Misc 5-20 please ity of 00:00: provide [place] 00 brand of Medical lancets Branch covered by insurance. Test 3 times per day. Alcohol 2022-0 Yes [id number] Apply to [facility] Swabs 5-20 area(s) 3 ity of (ALCOHOL 00:00: (three) [place] PADS) PadM 00 times Medical daily. Branch blood sugar 2022-0 Yes [id number] E 11.9. [facility] diagnostic 5-20 Please ity of (BLOOD 00:00: provide [place] GLUCOSE 00 test Medical TEST) strip strips Branch proofread by insurance. Use test strips 3 times per day. Lancets 2-0 Yes [id number] E 11.9, [facility] Misc 5-20 please ity of 00:00: provide [place] 00 brand of Medical lancets Branch covered by insurance. Test 3 times per day. Alcohol 2-0 Yes [id number] Apply to [facility] Swabs 5-20 area(s) 3 ity of (ALCOHOL 00:00: (three) [place] PADS) PadM 00 times Medical daily. Branch blood sugar 2-0 Yes [id number] E 11.9. [facility] diagnostic 5-20 Please ity of (BLOOD 00:00: provide [place] GLUCOSE 00 test Medical TEST) strip strips Branch proofread by insurance. Use test strips 3 times per day. Lancets 2-0 Yes [id number] E 11.9, [facility] Misc 5-20 please ity of 00:00: provide [place] 00 brand of Medical lancets Branch covered by insurance. Test 3 times per day. Alcohol 2021-0 Yes [id number] Apply to [facility] Swabs 5-20 area(s) 3 ity of (ALCOHOL 00:00: (three) [place] PADS) PadM 00 times Medical daily. Branch blood sugar 2021-0 Yes [id number] E 11.9. [facility] diagnostic 5-20 Please ity of (BLOOD 00:00: provide [place] GLUCOSE 00 test Medical TEST) strip strips Branch proofread by insurance. Use test strips 3 times per day. Lancets 2-0 Yes [id number] E 11.9, [facility] Misc 5-20 please ity of 00:00: provide [place] 00 brand of Medical lancets Branch covered by insurance. Test 3 times per day. Alcohol 2-0 Yes [id number] Apply to [facility] Swabs 5-20 area(s) 3 ity of (ALCOHOL 00:00: (three) [place] PADS) PadM 00 times Medical daily. Branch blood sugar 2022-0 Yes [id number] E 11.9. [facility] diagnostic 5-20 Please ity of (BLOOD 00:00: provide [place] GLUCOSE 00 test Medical TEST) strip strips Branch proofread by insurance. Use test strips 3 times per day. Lancets 2022-0 Yes [id number] E 11.9, [facility] Misc 5-20 please ity of 00:00: provide [place] 00 brand of Medical lancets Branch covered by insurance. Test 3 times per day. Alcohol 2-0 Yes [id number] Apply to [facility] Swabs 5-20 area(s) 3 ity of (ALCOHOL 00:00: (three) [place] PADS) PadM 00 times Medical daily. Branch blood sugar 2-0 Yes [id number] E 11.9. [facility] diagnostic 5-20 Please ity of (BLOOD 00:00: provide [place] GLUCOSE 00 test Medical TEST) strip strips Branch proofread by insurance. Use test strips 3 times per day. Lancets 2-0 Yes [id number] E 11.9, [facility] Misc 5-20 please ity of 00:00: provide [place] 00 brand of Medical lancets Branch covered by insurance. Test 3 times per day. Alcohol 2021-0 Yes [id number] Apply to [facility] Swabs 5-20 area(s) 3 ity of (ALCOHOL 00:00: (three) [place] PADS) PadM 00 times Medical daily. Branch blood sugar 2021-0 Yes [id number] E 11.9. [facility] diagnostic 5-20 Please ity of (BLOOD 00:00: provide [place] GLUCOSE 00 test Medical TEST) strip strips Branch proofread by insurance. Use test strips 3 times per day. Lancets 2-0 Yes [id number] E 11.9, [facility] Misc 5-20 please ity of 00:00: provide [place] 00 brand of Medical lancets Branch covered by insurance. Test 3 times per day. Alcohol 2021-0 Yes [id number] Apply to [facility] Swabs 5-20 area(s) 3 ity of (ALCOHOL 00:00: (three) [place] PADS) PadM 00 times Medical daily. Branch blood sugar 2-0 Yes [id number] E 11.9. [facility] diagnostic 5-20 Please ity of (BLOOD 00:00: provide [place] GLUCOSE 00 test Medical TEST) strip strips Branch proofread by insurance. Use test strips 3 times per day. Lancets 2-0 Yes [id number] E 11.9, [facility] Misc 5-20 please ity of 00:00: provide [place] 00 brand of Medical lancets Branch covered by insurance. Test 3 times per day. Alcohol 2021-0 Yes [id number] Apply to [facility] Swabs 5-20 area(s) 3 ity of (ALCOHOL 00:00: (three) [place] PADS) PadM 00 times Medical daily. Branch blood sugar 2-0 Yes [id number] E 11.9. [facility] diagnostic 5-20 Please ity of (BLOOD 00:00: provide [place] GLUCOSE 00 test Medical TEST) strip strips Branch proofread by insurance. Use test strips 3 times per day. Lancets 2021-0 Yes [id number] E 11.9, [facility] Misc 5-20 please ity of 00:00: provide [place] 00 brand of Medical lancets Branch covered by insurance. Test 3 times per day. Alcohol 2021-0 Yes [id number] Apply to [facility] Swabs 5-20 area(s) 3 ity of (ALCOHOL 00:00: (three) [place] PADS) PadM 00 times Medical daily. Branch blood sugar 2021-0 Yes [id number] E 11.9. [facility] diagnostic 5-20 Please ity of (BLOOD 00:00: provide [place] GLUCOSE 00 test Medical TEST) strip strips Branch proofread by insurance. Use test strips 3 times per day. Lancets 2021-0 Yes [id number] E 11.9, [facility] Misc 5-20 please ity of 00:00: provide [place] 00 brand of Medical lancets Branch covered by insurance. Test 3 times per day. Alcohol 2021-0 Yes [id number] Apply to [facility] Swabs 5-20 area(s) 3 ity of (ALCOHOL 00:00: (three) [place] PADS) PadM 00 times Medical daily. Branch blood sugar 2021-0 Yes [id number] E 11.9. [facility] diagnostic 5-20 Please ity of (BLOOD 00:00: provide [place] GLUCOSE 00 test Medical TEST) strip strips Branch proofread by insurance. Use test strips 3 times per day. Lancets 2-0 Yes [id number] E 11.9, [facility] Misc 5-20 please ity of 00:00: provide [place] 00 brand of Medical lancets Branch covered by insurance. Test 3 times per day. Alcohol 2-0 Yes [id number] Apply to [facility] Swabs 5-20 area(s) 3 ity of (ALCOHOL 00:00: (three) [place] PADS) PadM 00 times Medical daily. Branch blood sugar 2022-0 Yes [id number] E 11.9. [facility] diagnostic 5-20 Please ity of (BLOOD 00:00: provide [place] GLUCOSE 00 test Medical TEST) strip strips Branch proofread by insurance. Use test strips 3 times per day. Lancets 2022-0 Yes [id number] E 11.9, [facility] Misc 5-20 please ity of 00:00: provide [place] 00 brand of Medical lancets Branch covered by insurance. Test 3 times per day. Alcohol 2022-0 Yes [id number] Apply to [facility] Swabs 5-20 area(s) 3 ity of (ALCOHOL 00:00: (three) [place] PADS) PadM 00 times Medical daily. Branch blood sugar 2-0 Yes [id number] E 11.9. [facility] diagnostic 5-20 Please ity of (BLOOD 00:00: provide [place] GLUCOSE 00 test Medical TEST) strip strips Branch proofread by insurance. Use test strips 3 times per day. Lancets 2-0 Yes [id number] E 11.9, [facility] Misc 5-20 please ity of 00:00: provide [place] 00 brand of Medical lancets Branch covered by insurance. Test 3 times per day. Alcohol 2-0 Yes [id number] Apply to [facility] Swabs 5-20 area(s) 3 ity of (ALCOHOL 00:00: (three) [place] PADS) PadM 00 times Medical daily. Branch blood sugar 2022-0 Yes [id number] E 11.9. [facility] diagnostic 5-20 Please ity of (BLOOD 00:00: provide [place] GLUCOSE 00 test Medical TEST) strip strips Branch proofread by insurance. Use test strips 3 times per day. Lancets 2022-0 Yes [id number] E 11.9, [facility] Misc 5-20 please ity of 00:00: provide [place] 00 brand of Medical lancets Branch covered by insurance. Test 3 times per day. Alcohol 2022-0 Yes [id number] Apply to [facility] Swabs 5-20 area(s) 3 ity of (ALCOHOL 00:00: (three) [place] PADS) PadM 00 times Medical daily. Branch blood sugar 2022-0 Yes [id number] E 11.9. [facility] diagnostic 5-20 Please ity of (BLOOD 00:00: provide [place] GLUCOSE 00 test Medical TEST) strip strips Branch proofread by insurance. Use test strips 3 times per day. Lancets 2-0 Yes [id number] E 11.9, [facility] Misc 5-20 please ity of 00:00: provide [place] 00 brand of Medical lancets Branch covered by insurance. Test 3 times per day. Alcohol 2-0 Yes [id number] Apply to [facility] Swabs 5-20 area(s) 3 ity of (ALCOHOL 00:00: (three) [place] PADS) PadM 00 times Medical daily. Branch blood sugar 2-0 Yes [id number] E 11.9. [facility] diagnostic 5-20 Please ity of (BLOOD 00:00: provide [place] GLUCOSE 00 test Medical TEST) strip strips Branch proofread by insurance. Use test strips 3 times per day. Lancets 2021-0 Yes [id number] E 11.9, [facility] Misc 5-20 please ity of 00:00: provide [place] 00 brand of Medical lancets Branch covered by insurance. Test 3 times per day. Alcohol 2021-0 Yes [id number] Apply to [facility] Swabs 5-20 area(s) 3 ity of (ALCOHOL 00:00: (three) [place] PADS) PadM 00 times Medical daily. Branch blood sugar 2021-0 Yes [id number] E 11.9. [facility] diagnostic 5-20 Please ity of (BLOOD 00:00: provide [place] GLUCOSE 00 test Medical TEST) strip strips Branch proofread by insurance. Use test strips 3 times per day. Lancets 2021-0 Yes [id number] E 11.9, [facility] Misc 5-20 please ity of 00:00: provide [place] 00 brand of Medical lancets Branch covered by insurance. Test 3 times per day. Alcohol 2-0 Yes [id number] Apply to [facility] Swabs 5-20 area(s) 3 ity of (ALCOHOL 00:00: (three) [place] PADS) PadM 00 times Medical daily. Branch blood sugar 2-0 Yes [id number] E 11.9. [facility] diagnostic 5-20 Please ity of (BLOOD 00:00: provide [place] GLUCOSE 00 test Medical TEST) strip strips Branch proofread by insurance. Use test strips 3 times per day. Lancets 2-0 Yes [id number] E 11.9, [facility] Misc 5-20 please ity of 00:00: provide [place] 00 brand of Medical lancets Branch covered by insurance. Test 3 times per day. Alcohol 2021-0 Yes [id number] Apply to [facility] Swabs 5-20 area(s) 3 ity of (ALCOHOL 00:00: (three) [place] PADS) PadM 00 times Medical daily. Branch blood sugar 2-0 Yes [id number] E 11.9. [facility] diagnostic 5-20 Please ity of (BLOOD 00:00: provide [place] GLUCOSE 00 test Medical TEST) strip strips Branch proofread by insurance. Use test strips 3 times per day. Lancets 2021-0 Yes [id number] E 11.9, [facility] Misc 5-20 please ity of 00:00: provide [place] 00 brand of Medical lancets Branch covered by insurance. Test 3 times per day. Alcohol 2021-0 Yes [id number] Apply to [facility] Swabs 5-20 area(s) 3 ity of (ALCOHOL 00:00: (three) [place] PADS) PadM 00 times Medical daily. Branch blood sugar 2021-0 Yes [id number] E 11.9. [facility] diagnostic 5-20 Please ity of (BLOOD 00:00: provide [place] GLUCOSE 00 test Medical TEST) strip strips Branch proofread by insurance. Use test strips 3 times per day. Lancets 2021-0 Yes [id number] E 11.9, [facility] Misc 5-20 please ity of 00:00: provide [place] 00 brand of Medical lancets Branch covered by insurance. Test 3 times per day. Alcohol 2021-0 Yes [id number] Apply to [facility] Swabs 5-20 area(s) 3 ity of (ALCOHOL 00:00: (three) [place] PADS) PadM 00 times Medical daily. Branch blood sugar 2-0 Yes [id number] E 11.9. [facility] 5-20 Please ity of (BLOOD 00:00: provide [place] GLUCOSE 00 test Medical TEST) strip strips Branch proofread by insurance. Use test strips 3 times per day. Lancets 2-0 Yes [id number] E 11.9, [facility] Misc 5-20 please ity of 00:00: provide [place] 00 brand of Medical lancets Branch covered by insurance. Test 3 times per day. Alcohol 2-0 Yes [id number] Apply to [facility] Swabs 5-20 area(s) 3 ity of (ALCOHOL 00:00: (three) [place] PADS) PadM 00 times Medical daily. Branch blood sugar 2-0 Yes [id number] E 11.9. [facility] diagnostic 5-20 Please ity of (BLOOD 00:00: provide [place] GLUCOSE 00 test Medical TEST) strip strips Branch proofread by insurance. Use test strips 3 times per day. Lancets 2-0 Yes [id number] E 11.9, [facility] Misc 5-20 please ity of 00:00: provide [place] 00 brand of Medical lancets Branch covered by insurance. Test 3 times per day. Alcohol 2021-0 Yes [id number] Apply to [facility] Swabs 5-20 area(s) 3 ity of (ALCOHOL 00:00: (three) [place] PADS) PadM 00 times Medical daily. Branch blood sugar 2021-0 Yes [id number] E 11.9. [facility] diagnostic 5-20 Please ity of (BLOOD 00:00: provide [place] GLUCOSE 00 test Medical TEST) strip strips Branch proofread by insurance. Use test strips 3 times per day. Lancets 2021-0 Yes [id number] E 11.9, [facility] Misc 5-20 please ity of 00:00: provide [place] 00 brand of Medical lancets Branch covered by insurance. Test 3 times per day. Alcohol 2021-0 Yes [id number] Apply to [facility] Swabs 5-20 area(s) 3 ity of (ALCOHOL 00:00: (three) [place] PADS) PadM 00 times Medical daily. Branch blood sugar 2-0 Yes [id number] E 11.9. [facility] diagnostic 5-20 Please ity of (BLOOD 00:00: provide [place] GLUCOSE 00 test Medical TEST) strip strips Branch proofread by insurance. Use test strips 3 times per day. Lancets 2-0 Yes [id number] E 11.9, [facility] Misc 5-20 please ity of 00:00: provide [place] 00 brand of Medical lancets Branch covered by insurance. Test 3 times per day. Alcohol 2022-0 Yes [id number] Apply to [facility] Swabs 5-20 area(s) 3 ity of (ALCOHOL 00:00: (three) [place] PADS) PadM 00 times Medical daily. Branch blood sugar 2022-0 Yes [id number] E 11.9. [facility] diagnostic 5-20 Please ity of (BLOOD 00:00: provide [place] GLUCOSE 00 test Medical TEST) strip strips Branch proofread by insurance. Use test strips 3 times per day. Lancets 2-0 Yes [id number] E 11.9, [facility] Misc 5-20 please ity of 00:00: provide [place] 00 brand of Medical lancets Branch covered by insurance. Test 3 times per day. Alcohol 2-0 Yes [id number] Apply to [facility] Swabs 5-20 area(s) 3 ity of (ALCOHOL 00:00: (three) [place] PADS) PadM 00 times Medical daily. Branch blood sugar 2-0 Yes [id number] E 11.9. [facility] diagnostic 5-20 Please ity of (BLOOD 00:00: provide [place] GLUCOSE 00 test Medical TEST) strip strips Branch proofread by insurance. Use test strips 3 times per day. Lancets 2021-0 Yes [id number] E 11.9, [facility] Misc 5-20 please ity of 00:00: provide [place] 00 brand of Medical lancets Branch covered by insurance. Test 3 times per day. Alcohol 2-0 Yes [id number] Apply to [facility] Swabs 5-20 area(s) 3 ity of (ALCOHOL 00:00: (three) [place] PADS) PadM 00 times Medical daily. Branch blood sugar 2-0 Yes [id number] E 11.9. [facility] diagnostic 5-20 Please ity of (BLOOD 00:00: provide [place] GLUCOSE 00 test Medical TEST) strip strips Branch proofread by insurance. Use test strips 3 times per day. Lancets 2-0 Yes [id number] E 11.9, [facility] Misc 5-20 please ity of 00:00: provide [place] 00 brand of Medical lancets Branch covered by insurance. Test 3 times per day. Alcohol 2022-0 Yes [id number] Apply to [facility] Swabs 5-20 area(s) 3 ity of (ALCOHOL 00:00: (three) [place] PADS) PadM 00 times Medical daily. Branch blood sugar 2022-0 Yes [id number] E 11.9. [facility] diagnostic 5-20 Please ity of (BLOOD 00:00: provide [place] GLUCOSE 00 test Medical TEST) strip strips Branch proofread by insurance. Use test strips 3 times per day. Lancets 2022-0 Yes [id number] E 11.9, [facility] Misc 5-20 please ity of 00:00: provide [place] 00 brand of Medical lancets Branch covered by insurance. Test 3 times per day. Alcohol 2022-0 Yes [id number] Apply to [facility] Swabs 5-20 area(s) 3 ity of (ALCOHOL 00:00: (three) [place] PADS) PadM 00 times Medical daily. Branch blood sugar 2022-0 Yes [id number] E 11.9. [facility] diagnostic 5-20 Please ity of (BLOOD 00:00: provide [place] GLUCOSE 00 test Medical TEST) strip strips Branch proofread by insurance. Use test strips 3 times per day. Lancets 2-0 Yes [id number] E 11.9, [facility] Misc 5-20 please ity of 00:00: provide [place] 00 brand of Medical lancets Branch covered by insurance. Test 3 times per day. Alcohol 2-0 Yes [id number] Apply to [facility] Swabs 5-20 area(s) 3 ity of (ALCOHOL 00:00: (three) [place] PADS) PadM 00 times Medical daily. Branch blood sugar 2-0 Yes [id number] E 11.9. [facility] diagnostic 5-20 Please ity of (BLOOD 00:00: provide [place] GLUCOSE 00 test Medical TEST) strip strips Branch proofread by insurance. Use test strips 3 times per day. Lancets 2-0 Yes [id number] E 11.9, [facility] Misc 5-20 please ity of 00:00: provide [place] 00 brand of Medical lancets Branch covered by insurance. Test 3 times per day. Alcohol 2022-0 Yes [id number] Apply to [facility] Swabs 5-20 area(s) 3 ity of (ALCOHOL 00:00: (three) [place] PADS) PadM 00 times Medical daily. Branch blood sugar 2022-0 Yes [id number] E 11.9. [facility] diagnostic 5-20 Please ity of (BLOOD 00:00: provide [place] GLUCOSE 00 test Medical TEST) strip strips Branch proofread by insurance. Use test strips 3 times per day. Lancets 2022-0 Yes [id number] E 11.9, [facility] Misc 5-20 please ity of 00:00: provide [place] 00 brand of Medical lancets Branch covered by insurance. Test 3 times per day. Alcohol 2021-0 Yes [id number] Apply to [facility] Swabs 5-20 area(s) 3 ity of (ALCOHOL 00:00: (three) [place] PADS) PadM 00 times Medical daily. Branch blood sugar 2-0 Yes [id number] E 11.9. [facility] diagnostic 5-20 Please ity of (BLOOD 00:00: provide [place] GLUCOSE 00 test Medical TEST) strip strips Branch proofread by insurance. Use test strips 3 times per day. Lancets 2021-0 Yes [id number] E 11.9, [facility] Misc 5-20 please ity of 00:00: provide [place] 00 brand of Medical lancets Branch covered by insurance. Test 3 times per day. Alcohol 2021-0 Yes [id number] Apply to [facility] Swabs 5-20 area(s) 3 ity of (ALCOHOL 00:00: (three) [place] PADS) PadM 00 times Medical daily. Branch blood sugar 2021-0 Yes [id number] E 11.9. [facility] diagnostic 5-20 Please ity of (BLOOD 00:00: provide [place] GLUCOSE 00 test Medical TEST) strip strips Branch proofread by insurance. Use test strips 3 times per day. Lancets 2021-0 Yes [id number] E 11.9, [facility] Misc 5-20 please ity of 00:00: provide [place] 00 brand of Medical lancets Branch covered by insurance. Test 3 times per day. Alcohol 2021-0 Yes [id number] Apply to [facility] Swabs 5-20 area(s) 3 ity of (ALCOHOL 00:00: (three) [place] PADS) PadM 00 times Medical daily. Branch blood sugar 2-0 Yes [id number] E 11.9. [facility] diagnostic 5-20 Please ity of (BLOOD 00:00: provide [place] GLUCOSE 00 test Medical TEST) strip strips Branch proofread by insurance. Use test strips 3 times per day. Lancets 2-0 Yes [id number] E 11.9, [facility] Misc 5-20 please ity of 00:00: provide [place] 00 brand of Medical lancets Branch covered by insurance. Test 3 times per day. Alcohol 2-0 Yes [id number] Apply to [facility] Swabs 5-20 area(s) 3 ity of (ALCOHOL 00:00: (three) [place] PADS) PadM 00 times Medical daily. Branch blood sugar 2022-0 Yes [id number] E 11.9. [facility] diagnostic 5-20 Please ity of (BLOOD 00:00: provide [place] GLUCOSE 00 test Medical TEST) strip strips Branch proofread by insurance. Use test strips 3 times per day. Lancets 2022-0 Yes [id number] E 11.9, [facility] Misc 5-20 please ity of 00:00: provide [place] 00 brand of Medical lancets Branch covered by insurance. Test 3 times per day. Alcohol 2022-0 Yes [id number] Apply to [facility] Swabs 5-20 area(s) 3 ity of (ALCOHOL 00:00: (three) [place] PADS) PadM 00 times Medical daily. Branch blood sugar 2-0 Yes [id number] E 11.9. [facility] diagnostic 5-20 Please ity of (BLOOD 00:00: provide [place] GLUCOSE 00 test Medical TEST) strip strips Branch proofread by insurance. Use test strips 3 times per day. Lancets 2-0 Yes [id number] E 11.9, [facility] Misc 5-20 please ity of 00:00: provide [place] 00 brand of Medical lancets Branch covered by insurance. Test 3 times per day. Alcohol 2-0 Yes [id number] Apply to [facility] Swabs 5-20 area(s) 3 ity of (ALCOHOL 00:00: (three) [place] PADS) PadM 00 times Medical daily. Branch blood sugar 2-0 Yes [id number] E 11.9. [facility] diagnostic 5-20 Please ity of (BLOOD 00:00: provide [place] GLUCOSE 00 test Medical TEST) strip strips Branch proofread by insurance. Use test strips 3 times per day. Lancets 2022-0 Yes [id number] E 11.9, [facility] Misc 5-20 please ity of 00:00: provide [place] 00 brand of Medical lancets Branch covered by insurance. Test 3 times per day. Alcohol 2022-0 Yes [id number] Apply to [facility] Swabs 5-20 area(s) 3 ity of (ALCOHOL 00:00: (three) [place] PADS) PadM 00 times Medical daily. Branch blood sugar 2022-0 Yes [id number] E 11.9. [facility] diagnostic 5-20 Please ity of (BLOOD 00:00: provide [place] GLUCOSE 00 test Medical TEST) strip strips Branch proofread by insurance. Use test strips 3 times per day. Lancets 2-0 Yes [id number] E 11.9, [facility] Misc 5-20 please ity of 00:00: provide [place] 00 brand of Medical lancets Branch covered by insurance. Test 3 times per day. Alcohol 2021-0 Yes [id number] Apply to [facility] Swabs 5-20 area(s) 3 ity of (ALCOHOL 00:00: (three) [place] PADS) PadM 00 times Medical daily. Branch blood sugar 2021-0 Yes [id number] E 11.9. [facility] diagnostic 5-20 Please ity of (BLOOD 00:00: provide [place] GLUCOSE 00 test Medical TEST) strip strips Branch proofread by insurance. Use test strips 3 times per day. Lancets 2021-0 Yes [id number] E 11.9, [facility] Misc 5-20 please ity of 00:00: provide [place] 00 brand of Medical lancets Branch covered by insurance. Test 3 times per day. Alcohol 2021-0 Yes [id number] Apply to [facility] Swabs 5-20 area(s) 3 ity of (ALCOHOL 00:00: (three) [place] PADS) PadM 00 times Medical daily. Branch blood sugar 2021-0 Yes [id number] E 11.9. [facility] diagnostic 5-20 Please ity of (BLOOD 00:00: provide [place] GLUCOSE 00 test Medical TEST) strip strips Branch proofread by insurance. Use test strips 3 times per day. Lancets 2-0 Yes [id number] E 11.9, [facility] Misc 5-20 please ity of 00:00: provide [place] 00 brand of Medical lancets Branch covered by insurance. Test 3 times per day. Alcohol 2022-0 Yes [id number] Apply to [facility] Swabs 5-20 area(s) 3 ity of (ALCOHOL 00:00: (three) [place] PADS) PadM 00 times Medical daily. Branch blood sugar 2-0 Yes [id number] E 11.9. [facility] diagnostic 5-20 Please ity of (BLOOD 00:00: provide [place] GLUCOSE 00 test Medical TEST) strip strips Branch proofread by insurance. Use test strips 3 times per day. Lancets 2-0 Yes [id number] E 11.9, [facility] Misc 5-20 please ity of 00:00: provide [place] 00 brand of Medical lancets Branch covered by insurance. Test 3 times per day. Alcohol 2-0 Yes [id number] Apply to [facility] Swabs 5-20 area(s) 3 ity of (ALCOHOL 00:00: (three) [place] PADS) PadM 00 times Medical daily. Branch blood sugar 2-0 Yes [id number] E 11.9. [facility] diagnostic 5-20 Please ity of (BLOOD 00:00: provide [place] GLUCOSE 00 test Medical TEST) strip strips Branch proofread by insurance. Use test strips 3 times per day. Lancets 2021-0 Yes [id number] E 11.9, [facility] Misc 5-20 please ity of 00:00: provide [place] 00 brand of Medical lancets Branch covered by insurance. Test 3 times per day. Alcohol 2021-0 Yes [id number] Apply to [facility] Swabs 5-20 area(s) 3 ity of (ALCOHOL 00:00: (three) [place] PADS) PadM 00 times Medical daily. Branch blood sugar 2021-0 Yes [id number] E 11.9. [facility] diagnostic 5-20 Please ity of (BLOOD 00:00: provide [place] GLUCOSE 00 test Medical TEST) strip strips Branch proofread by insurance. Use test strips 3 times per day. Lancets 2021-0 Yes [id number] E 11.9, [facility] Misc 5-20 please ity of 00:00: provide [place] 00 brand of Medical lancets Branch covered by insurance. Test 3 times per day. Alcohol 2021-0 Yes [id number] Apply to [facility] Swabs 5-20 area(s) 3 ity of (ALCOHOL 00:00: (three) [place] PADS) PadM 00 times Medical daily. Branch blood sugar 2-0 Yes [id number] E 11.9. [facility] diagnostic 5-20 Please ity of (BLOOD 00:00: provide [place] GLUCOSE 00 test Medical TEST) strip strips Branch proofread by insurance. Use test strips 3 times per day. Lancets 2-0 Yes [id number] E 11.9, [facility] Misc 5-20 please ity of 00:00: provide [place] 00 brand of Medical lancets Branch covered by insurance. Test 3 times per day. Alcohol 2022-0 Yes [id number] Apply to [facility] Swabs 5-20 area(s) 3 ity of (ALCOHOL 00:00: (three) [place] PADS) PadM 00 times Medical daily. Branch blood sugar 2022-0 Yes [id number] E 11.9. [facility] diagnostic 5-20 Please ity of (BLOOD 00:00: provide [place] GLUCOSE 00 test Medical TEST) strip strips Branch proofread by insurance. Use test strips 3 times per day. Lancets 2022-0 Yes [id number] E 11.9, [facility] Misc 5-20 please ity of 00:00: provide [place] 00 brand of Medical lancets Branch covered by insurance. Test 3 times per day. Alcohol 2-0 Yes [id number] Apply to [facility] Swabs 5-20 area(s) 3 ity of (ALCOHOL 00:00: (three) [place] PADS) PadM 00 times Medical daily. Branch blood sugar 2-0 Yes [id number] E 11.9. [facility] diagnostic 5-20 Please ity of (BLOOD 00:00: provide [place] GLUCOSE 00 test Medical TEST) strip strips Branch proofread by insurance. Use test strips 3 times per day. Lancets 2-0 Yes [id number] E 11.9, [facility] Misc 5-20 please ity of 00:00: provide [place] 00 brand of Medical lancets Branch covered by insurance. Test 3 times per day. Alcohol 2-0 Yes [id number] Apply to [facility] Swabs 5-20 area(s) 3 ity of (ALCOHOL 00:00: (three) [place] PADS) PadM 00 times Medical daily. Branch blood sugar 2022-0 Yes [id number] E 11.9. [facility] diagnostic 5-20 Please ity of (BLOOD 00:00: provide [place] GLUCOSE 00 test Medical TEST) strip strips Branch proofread by insurance. Use test strips 3 times per day. Lancets 2022-0 Yes [id number] E 11.9, [facility] Misc 5-20 please ity of 00:00: provide [place] 00 brand of Medical lancets Branch covered by insurance. Test 3 times per day. Alcohol 2022-0 Yes [id number] Apply to [facility] Swabs 5-20 area(s) 3 ity of (ALCOHOL 00:00: (three) [place] PADS) PadM 00 times Medical daily. Branch blood sugar 2022-0 Yes [id number] E 11.9. [facility] diagnostic 5-20 Please ity of (BLOOD 00:00: provide [place] GLUCOSE 00 test Medical TEST) strip strips Branch proofread by insurance. Use test strips 3 times per day. Lancets 2022-0 Yes [id number] E 11.9, [facility] Misc 5-20 please ity of 00:00: provide [place] 00 brand of Medical lancets Branch covered by insurance. Test 3 times per day. Alcohol 2022-0 Yes [id number] Apply to [facility] Swabs 5-20 area(s) 3 ity of (ALCOHOL 00:00: (three) [place] PADS) PadM 00 times Medical daily. Branch blood sugar 2-0 Yes [id number] E 11.9. [facility] diagnostic 5-20 Please ity of (BLOOD 00:00: provide [place] GLUCOSE 00 test Medical TEST) strip strips Branch proofread by insurance. Use test strips 3 times per day. Lancets 2-0 Yes [id number] E 11.9, [facility] Misc 5-20 please ity of 00:00: provide [place] 00 brand of Medical lancets Branch covered by insurance. Test 3 times per day. Alcohol 2-0 Yes [id number] Apply to [facility] Swabs 5-20 area(s) 3 ity of (ALCOHOL 00:00: (three) [place] PADS) PadM 00 times Medical daily. Branch blood sugar 2022-0 Yes [id number] E 11.9. [facility] diagnostic 5-20 Please ity of (BLOOD 00:00: provide [place] GLUCOSE 00 test Medical TEST) strip strips Branch proofread by insurance. Use test strips 3 times per day. Lancets 2022-0 Yes [id number] E 11.9, [facility] Misc 5-20 please ity of 00:00: provide [place] 00 brand of Medical lancets Branch covered by insurance. Test 3 times per day. Alcohol 2022-0 Yes [id number] Apply to [facility] Swabs 5-20 area(s) 3 ity of (ALCOHOL 00:00: (three) [place] PADS) PadM 00 times Medical daily. Branch blood sugar 2022-0 Yes [id number] E 11.9. [facility] diagnostic 5-20 Please ity of (BLOOD 00:00: provide [place] GLUCOSE 00 test Medical TEST) strip strips Branch proofread by insurance. Use test strips 3 times per day. Lancets 2-0 Yes [id number] E 11.9, [facility] Misc 5-20 please ity of 00:00: provide [place] 00 brand of Medical lancets Branch covered by insurance. Test 3 times per day. Alcohol 2-0 Yes [id number] Apply to [facility] Swabs 5-20 area(s) 3 ity of (ALCOHOL 00:00: (three) [place] PADS) PadM 00 times Medical daily. Branch blood sugar 2-0 Yes [id number] E 11.9. [facility] diagnostic 5-20 Please ity of (BLOOD 00:00: provide [place] GLUCOSE 00 test Medical TEST) strip strips Branch proofread by insurance. Use test strips 3 times per day. Lancets 2021-0 Yes [id number] E 11.9, [facility] Misc 5-20 please ity of 00:00: provide [place] 00 brand of Medical lancets Branch covered by insurance. Test 3 times per day. Alcohol 2021-0 Yes [id number] Apply to [facility] Swabs 5-20 area(s) 3 ity of (ALCOHOL 00:00: (three) [place] PADS) PadM 00 times Medical daily. Branch blood sugar 2021-0 Yes [id number] E 11.9. [facility] diagnostic 5-20 Please ity of (BLOOD 00:00: provide [place] GLUCOSE 00 test Medical TEST) strip strips Branch proofread by insurance. Use test strips 3 times per day. Lancets 2021-0 Yes [id number] E 11.9, [facility] Misc 5-20 please ity of 00:00: provide [place] 00 brand of Medical lancets Branch covered by insurance. Test 3 times per day. Alcohol 2-0 Yes [id number] Apply to [facility] Swabs 5-20 area(s) 3 ity of (ALCOHOL 00:00: (three) [place] PADS) PadM 00 times Medical daily. Branch blood sugar 2-0 Yes [id number] E 11.9. [facility] diagnostic 5-20 Please ity of (BLOOD 00:00: provide [place] GLUCOSE 00 test Medical TEST) strip strips Branch proofread by insurance. Use test strips 3 times per day. Lancets 2-0 Yes [id number] E 11.9, [facility] Misc 5-20 please ity of 00:00: provide [place] 00 brand of Medical lancets Branch covered by insurance. Test 3 times per day. Alcohol 2021-0 Yes [id number] Apply to [facility] Swabs 5-20 area(s) 3 ity of (ALCOHOL 00:00: (three) [place] PADS) PadM 00 times Medical daily. Branch blood sugar 2-0 Yes [id number] E 11.9. [facility] diagnostic 5-20 Please ity of (BLOOD 00:00: provide [place] GLUCOSE 00 test Medical TEST) strip strips Branch proofread by insurance. Use test strips 3 times per day. Lancets 2021-0 Yes [id number] E 11.9, [facility] Misc 5-20 please ity of 00:00: provide [place] 00 brand of Medical lancets Branch covered by insurance. Test 3 times per day. Alcohol 2021-0 Yes [id number] Apply to [facility] Swabs 5-20 area(s) 3 ity of (ALCOHOL 00:00: (three) [place] PADS) PadM 00 times Medical daily. Branch blood sugar 2021-0 Yes [id number] E 11.9. [facility] diagnostic 5-20 Please ity of (BLOOD 00:00: provide [place] GLUCOSE 00 test Medical TEST) strip strips Branch proofread by insurance. Use test strips 3 times per day. Lancets 2021-0 Yes [id number] E 11.9, [facility] Misc 5-20 please ity of 00:00: provide [place] 00 brand of Medical lancets Branch covered by insurance. Test 3 times per day. Alcohol 2021-0 Yes [id number] Apply to [facility] Swabs 5-20 area(s) 3 ity of (ALCOHOL 00:00: (three) [place] PADS) PadM 00 times Medical daily. Branch blood sugar 2-0 Yes [id number] E 11.9. [facility] diagnostic 5-20 Please ity of (BLOOD 00:00: provide [place] GLUCOSE 00 test Medical TEST) strip strips Branch proofread by insurance. Use test strips 3 times per day. Lancets 2-0 Yes [id number] E 11.9, [facility] Misc 5-20 please ity of 00:00: provide [place] 00 brand of Medical lancets Branch covered by insurance. Test 3 times per day. Alcohol 2021-0 Yes [id number] Apply to [facility] Swabs 5-20 area(s) 3 ity of (ALCOHOL 00:00: (three) [place] PADS) PadM 00 times Medical daily. Branch blood sugar 2-0 Yes [id number] E 11.9. [facility] diagnostic 5-20 Please ity of (BLOOD 00:00: provide [place] GLUCOSE 00 test Medical TEST) strip strips Branch proofread by insurance. Use test strips 3 times per day. Lancets 2-0 Yes [id number] E 11.9, [facility] Misc 5-20 please ity of 00:00: provide [place] 00 brand of Medical lancets Branch covered by insurance. Test 3 times per day. Alcohol 2021-0 Yes [id number] Apply to [facility] Swabs 5-20 area(s) 3 ity of (ALCOHOL 00:00: (three) [place] PADS) PadM 00 times Medical daily. Branch blood sugar 2021-0 Yes [id number] E 11.9. [facility] diagnostic 5-20 Please ity of (BLOOD 00:00: provide [place] GLUCOSE 00 test Medical TEST) strip strips Branch proofread by insurance. Use test strips 3 times per day. Lancets 2021-0 Yes [id number] E 11.9, [facility] Misc 5-20 please ity of 00:00: provide [place] 00 brand of Medical lancets Branch covered by insurance. Test 3 times per day. Alcohol 2021-0 Yes [id number] Apply to [facility] Swabs 5-20 area(s) 3 ity of (ALCOHOL 00:00: (three) [place] PADS) PadM 00 times Medical daily. Branch blood sugar 2-0 Yes [id number] E 11.9. [facility] diagnostic 5-20 Please ity of (BLOOD 00:00: provide [place] GLUCOSE 00 test Medical TEST) strip strips Branch proofread by insurance. Use test strips 3 times per day. Lancets 2-0 Yes [id number] E 11.9, [facility] Misc 5-20 please ity of 00:00: provide [place] 00 brand of Medical lancets Branch covered by insurance. Test 3 times per day. Alcohol 2-0 Yes [id number] Apply to [facility] Swabs 5-20 area(s) 3 ity of (ALCOHOL 00:00: (three) [place] PADS) PadM 00 times Medical daily. Branch blood sugar 2022-0 Yes [id number] E 11.9. [facility] diagnostic 5-20 Please ity of (BLOOD 00:00: provide [place] GLUCOSE 00 test Medical TEST) strip strips Branch proofread by insurance. Use test strips 3 times per day. Lancets 2022-0 Yes [id number] E 11.9, [facility] Misc 5-20 please ity of 00:00: provide [place] 00 brand of Medical lancets Branch covered by insurance. Test 3 times per day. Alcohol 2022-0 Yes [id number] Apply to [facility] Swabs 5-20 area(s) 3 ity of (ALCOHOL 00:00: (three) [place] PADS) PadM 00 times Medical daily. Branch blood sugar 2-0 Yes [id number] E 11.9. [facility] diagnostic 5-20 Please ity of (BLOOD 00:00: provide [place] GLUCOSE 00 test Medical TEST) strip strips Branch proofread by insurance. Use test strips 3 times per day. Lancets 2-0 Yes [id number] E 11.9, [facility] Misc 5-20 please ity of 00:00: provide [place] 00 brand of Medical lancets Branch covered by insurance. Test 3 times per day. Alcohol 2-0 Yes [id number] Apply to [facility] Swabs 5-20 area(s) 3 ity of (ALCOHOL 00:00: (three) [place] PADS) PadM 00 times Medical daily. Branch blood sugar 2022-0 Yes [id number] E 11.9. [facility] diagnostic 5-20 Please ity of (BLOOD 00:00: provide [place] GLUCOSE 00 test Medical TEST) strip strips Branch proofread by insurance. Use test strips 3 times per day. Lancets 2-0 Yes [id number] E 11.9, [facility] Misc 5-20 please ity of 00:00: provide [place] 00 brand of Medical lancets Branch covered by insurance. Test 3 times per day. Alcohol 2022-0 Yes [id number] Apply to [facility] Swabs 5-20 area(s) 3 ity of (ALCOHOL 00:00: (three) [place] PADS) PadM 00 times Medical daily. Branch blood sugar 2022-0 Yes [id number] E 11.9. [facility] diagnostic 5-20 Please ity of (BLOOD 00:00: provide [place] GLUCOSE 00 test Medical TEST) strip strips Branch proofread by insurance. Use test strips 3 times per day. Lancets 2022-0 Yes [id number] E 11.9, [facility] Misc 5-20 please ity of 00:00: provide [place] 00 brand of Medical lancets Branch covered by insurance. Test 3 times per day. Alcohol 2-0 Yes [id number] Apply to [facility] Swabs 5-20 area(s) 3 ity of (ALCOHOL 00:00: (three) [place] PADS) PadM 00 times Medical daily. Branch blood sugar 2-0 Yes [id number] E 11.9. [facility] diagnostic 5-20 Please ity of (BLOOD 00:00: provide [place] GLUCOSE 00 test Medical TEST) strip strips Branch proofread by insurance. Use test strips 3 times per day. Lancets 2-0 Yes [id number] E 11.9, [facility] Misc 5-20 please ity of 00:00: provide [place] 00 brand of Medical lancets Branch covered by insurance. Test 3 times per day. Alcohol 2-0 Yes [id number] Apply to [facility] Swabs 5-20 area(s) 3 ity of (ALCOHOL 00:00: (three) [place] PADS) PadM 00 times Medical daily. Branch blood sugar 2-0 Yes [id number] E 11.9. [facility] diagnostic 5-20 Please ity of (BLOOD 00:00: provide [place] GLUCOSE 00 test Medical TEST) strip strips Branch proofread by insurance. Use test strips 3 times per day. Lancets 2-0 Yes [id number] E 11.9, [facility] Misc 5-20 please ity of 00:00: provide [place] 00 brand of Medical lancets Branch covered by insurance. Test 3 times per day. Alcohol 2-0 Yes [id number] Apply to [facility] Swabs 5-20 area(s) 3 ity of (ALCOHOL 00:00: (three) [place] PADS) PadM 00 times Medical daily. Branch blood sugar 2022-0 Yes [id number] E 11.9. [facility] 5-20 Please ity of (BLOOD 00:00: provide [place] GLUCOSE 00 test Medical TEST) strip strips Branch proofread by insurance. Use test strips 3 times per day. Lancets 2022-0 Yes [id number] E 11.9, [facility] Misc 5-20 please ity of 00:00: provide [place] 00 brand of Medical lancets Branch covered by insurance. Test 3 times per day. Alcohol 2-0 Yes [id number] Apply to [facility] Swabs 5-20 area(s) 3 ity of (ALCOHOL 00:00: (three) [place] PADS) PadM 00 times Medical daily. Branch blood sugar 2-0 Yes [id number] E 11.9. [facility] diagnostic 5-20 Please ity of (BLOOD 00:00: provide [place] GLUCOSE 00 test Medical TEST) strip strips Branch proofread by insurance. Use test strips 3 times per day. Lancets 2-0 Yes [id number] E 11.9, [facility] Misc 5-20 please ity of 00:00: provide [place] 00 brand of Medical lancets Branch covered by insurance. Test 3 times per day. Alcohol 2021-0 Yes [id number] Apply to [facility] Swabs 5-20 area(s) 3 ity of (ALCOHOL 00:00: (three) [place] PADS) PadM 00 times Medical daily. Branch blood sugar 2021-0 Yes [id number] E 11.9. [facility] diagnostic 5-20 Please ity of (BLOOD 00:00: provide [place] GLUCOSE 00 test Medical TEST) strip strips Branch proofread by insurance. Use test strips 3 times per day. Lancets 2021-0 Yes [id number] E 11.9, [facility] Misc 5-20 please ity of 00:00: provide [place] 00 brand of Medical lancets Branch covered by insurance. Test 3 times per day. Alcohol 2021-0 Yes [id number] Apply to [facility] Swabs 5-20 area(s) 3 ity of (ALCOHOL 00:00: (three) [place] PADS) PadM 00 times Medical daily. Branch blood sugar 2-0 Yes [id number] E 11.9. [facility] diagnostic 5-20 Please ity of (BLOOD 00:00: provide [place] GLUCOSE 00 test Medical TEST) strip strips Branch proofread by insurance. Use test strips 3 times per day. Lancets 2-0 Yes [id number] E 11.9, [facility] Misc 5-20 please ity of 00:00: provide [place] 00 brand of Medical lancets Branch covered by insurance. Test 3 times per day. Alcohol 2022-0 Yes [id number] Apply to [facility] Swabs 5-20 area(s) 3 ity of (ALCOHOL 00:00: (three) [place] PADS) PadM 00 times Medical daily. Branch blood sugar 2-0 Yes [id number] E 11.9. [facility] diagnostic 5-20 Please ity of (BLOOD 00:00: provide [place] GLUCOSE 00 test Medical TEST) strip strips Branch proofread by insurance. Use test strips 3 times per day. Lancets 2-0 Yes [id number] E 11.9, [facility] Misc 5-20 please ity of 00:00: provide [place] 00 brand of Medical lancets Branch covered by insurance. Test 3 times per day. Alcohol 2021-0 Yes [id number] Apply to [facility] Swabs 5-20 area(s) 3 ity of (ALCOHOL 00:00: (three) [place] PADS) PadM 00 times Medical daily. Branch blood sugar 2-0 Yes [id number] E 11.9. [facility] diagnostic 5-20 Please ity of (BLOOD 00:00: provide [place] GLUCOSE 00 test Medical TEST) strip strips Branch proofread by insurance. Use test strips 3 times per day. Lancets 2021-0 Yes [id number] E 11.9, [facility] Misc 5-20 please ity of 00:00: provide [place] 00 brand of Medical lancets Branch covered by insurance. Test 3 times per day. Alcohol 2021-0 Yes [id number] Apply to [facility] Swabs 5-20 area(s) 3 ity of (ALCOHOL 00:00: (three) [place] PADS) PadM 00 times Medical daily. Branch blood sugar 2-0 Yes [id number] E 11.9. [facility] diagnostic 5-20 Please ity of (BLOOD 00:00: provide [place] GLUCOSE 00 test Medical TEST) strip strips Branch proofread by insurance. Use test strips 3 times per day. Lancets 2-0 Yes [id number] E 11.9, [facility] Misc 5-20 please ity of 00:00: provide [place] 00 brand of Medical lancets Branch covered by insurance. Test 3 times per day. Alcohol 2-0 Yes [id number] Apply to [facility] Swabs 5-20 area(s) 3 ity of (ALCOHOL 00:00: (three) [place] PADS) PadM 00 times Medical daily. Branch blood sugar 2022-0 Yes [id number] E 11.9. [facility] diagnostic 5-20 Please ity of (BLOOD 00:00: provide [place] GLUCOSE 00 test Medical TEST) strip strips Branch proofread by insurance. Use test strips 3 times per day. Lancets 2-0 Yes [id number] E 11.9, [facility] Misc 5-20 please ity of 00:00: provide [place] 00 brand of Medical lancets Branch covered by insurance. Test 3 times per day. Alcohol 2-0 Yes [id number] Apply to [facility] Swabs 5-20 area(s) 3 ity of (ALCOHOL 00:00: (three) [place] PADS) PadM 00 times Medical daily. Branch blood sugar 2-0 Yes [id number] E 11.9. [facility] diagnostic 5-20 Please ity of (BLOOD 00:00: provide [place] GLUCOSE 00 test Medical TEST) strip strips Branch proofread by insurance. Use test strips 3 times per day. Lancets 2021-0 Yes [id number] E 11.9, [facility] Misc 5-20 please ity of 00:00: provide [place] 00 brand of Medical lancets Branch covered by insurance. Test 3 times per day. Alcohol 2-0 Yes [id number] Apply to [facility] Swabs 5-20 area(s) 3 ity of (ALCOHOL 00:00: (three) [place] PADS) PadM 00 times Medical daily. Branch blood sugar 2021-0 Yes [id number] E 11.9. [facility] diagnostic 5-20 Please ity of (BLOOD 00:00: provide [place] GLUCOSE 00 test Medical TEST) strip strips Branch proofread by insurance. Use test strips 3 times per day. Lancets 2-0 Yes [id number] E 11.9, [facility] Misc 5-20 please ity of 00:00: provide [place] 00 brand of Medical lancets Branch covered by insurance. Test 3 times per day. Alcohol 2022-0 Yes [id number] Apply to [facility] Swabs 5-20 area(s) 3 ity of (ALCOHOL 00:00: (three) [place] PADS) PadM 00 times Medical daily. Branch blood sugar 2-0 Yes [id number] E 11.9. [facility] diagnostic 5-20 Please ity of (BLOOD 00:00: provide [place] GLUCOSE 00 test Medical TEST) strip strips Branch proofread by insurance. Use test strips 3 times per day. Lancets 2022-0 Yes [id number] E 11.9, [facility] Misc 5-20 please ity of 00:00: provide [place] 00 brand of Medical lancets Branch covered by insurance. Test 3 times per day. Alcohol 2022-0 Yes [id number] Apply to [facility] Swabs 5-20 area(s) 3 ity of (ALCOHOL 00:00: (three) [place] PADS) PadM 00 times Medical daily. Branch blood sugar 2-0 Yes [id number] E 11.9. [facility] diagnostic 5-20 Please ity of (BLOOD 00:00: provide [place] GLUCOSE 00 test Medical TEST) strip strips Branch proofread by insurance. Use test strips 3 times per day. Lancets 2-0 Yes [id number] E 11.9, [facility] Misc 5-20 please ity of 00:00: provide [place] 00 brand of Medical lancets Branch covered by insurance. Test 3 times per day. Alcohol 2-0 Yes [id number] Apply to [facility] Swabs 5-20 area(s) 3 ity of (ALCOHOL 00:00: (three) [place] PADS) PadM 00 times Medical daily. Branch blood sugar 2-0 Yes [id number] E 11.9. [facility] diagnostic 5-20 Please ity of (BLOOD 00:00: provide [place] GLUCOSE 00 test Medical TEST) strip strips Branch proofread by insurance. Use test strips 3 times per day. Lancets 2-0 Yes [id number] E 11.9, [facility] Misc 5-20 please ity of 00:00: provide [place] 00 brand of Medical lancets Branch covered by insurance. Test 3 times per day. Alcohol 2-0 Yes [id number] Apply to [facility] Swabs 5-20 area(s) 3 ity of (ALCOHOL 00:00: (three) [place] PADS) PadM 00 times Medical daily. Branch blood sugar 2-0 Yes [id number] E 11.9. [facility] diagnostic 5-20 Please ity of (BLOOD 00:00: provide [place] GLUCOSE 00 test Medical TEST) strip strips Branch proofread by insurance. Use test strips 3 times per day. Lancets 2-0 Yes [id number] E 11.9, [facility] Misc 5-20 please ity of 00:00: provide [place] 00 brand of Medical lancets Branch covered by insurance. Test 3 times per day. Alcohol 2-0 Yes [id number] Apply to [facility] Swabs 5-20 area(s) 3 ity of (ALCOHOL 00:00: (three) [place] PADS) PadM 00 times Medical daily. Branch blood sugar 2-0 Yes [id number] E 11.9. [facility] diagnostic 5-20 Please ity of (BLOOD 00:00: provide [place] GLUCOSE 00 test Medical TEST) strip strips Branch proofread by insurance. Use test strips 3 times per day. Lancets 2-0 Yes [id number] E 11.9, [facility] Misc 5-20 please ity of 00:00: provide [place] 00 brand of Medical lancets Branch covered by insurance. Test 3 times per day. Alcohol 2021-0 Yes [id number] Apply to [facility] Swabs 5-20 area(s) 3 ity of (ALCOHOL 00:00: (three) [place] PADS) PadM 00 times Medical daily. Branch blood sugar 2021-0 Yes [id number] E 11.9. [facility] diagnostic 5-20 Please ity of (BLOOD 00:00: provide [place] GLUCOSE 00 test Medical TEST) strip strips Branch proofread by insurance. Use test strips 3 times per day. Lancets 2-0 Yes [id number] E 11.9, [facility] Misc 5-20 please ity of 00:00: provide [place] 00 brand of Medical lancets Branch covered by insurance. Test 3 times per day. Alcohol 2-0 Yes [id number] Apply to [facility] Swabs 5-20 area(s) 3 ity of (ALCOHOL 00:00: (three) [place] PADS) PadM 00 times Medical daily. Branch blood sugar 2-0 Yes [id number] E 11.9. [facility] diagnostic 5-20 Please ity of (BLOOD 00:00: provide [place] GLUCOSE 00 test Medical TEST) strip strips Branch proofread by insurance. Use test strips 3 times per day. Lancets 2-0 Yes [id number] E 11.9, [facility] Misc 5-20 please ity of 00:00: provide [place] 00 brand of Medical lancets Branch covered by insurance. Test 3 times per day. Alcohol 2-0 Yes [id number] Apply to [facility] Swabs 5-20 area(s) 3 ity of (ALCOHOL 00:00: (three) [place] PADS) PadM 00 times Medical daily. Branch blood sugar 2021-0 Yes [id number] E 11.9. [facility] diagnostic 5-20 Please ity of (BLOOD 00:00: provide [place] GLUCOSE 00 test Medical TEST) strip strips Branch proofread by insurance. Use test strips 3 times per day. Lancets 2021-0 Yes [id number] E 11.9, [facility] Misc 5-20 please ity of 00:00: provide [place] 00 brand of Medical lancets Branch covered by insurance. Test 3 times per day. Alcohol 2021-0 Yes [id number] Apply to [facility] Swabs 5-20 area(s) 3 ity of (ALCOHOL 00:00: (three) [place] PADS) PadM 00 times Medical daily. Branch blood sugar 2021-0 Yes [id number] USE 1 [facility] 5-19 STRIP 2 ity of (ONETOUCH 00:00: (TWO) [place] VERIO TEST 00 TIMES Medical STRIPS) DAILY. Branch strip blood sugar 2021-0 Yes [id number] USE 1 [facility] diagnostic 5-19 STRIP 2 ity of (ONETOUCH 00:00: (TWO) [place] VERIO TEST 00 TIMES Medical STRIPS) DAILY. Branch strip blood sugar 2021-0 Yes [id number] USE 1 [facility] diagnostic 5-19 STRIP 2 ity of (ONETOUCH 00:00: (TWO) [place] VERIO TEST 00 TIMES Medical STRIPS) DAILY. Branch strip blood sugar 2-0 Yes [id number] USE 1 [facility] diagnostic 5-19 STRIP 2 ity of (ONETOUCH 00:00: (TWO) [place] VERIO TEST 00 TIMES Medical STRIPS) DAILY. Branch strip blood sugar 2021-0 Yes [id number] USE 1 [facility] diagnostic 5-19 STRIP 2 ity of (ONETOUCH 00:00: (TWO) [place] VERIO TEST 00 TIMES Medical STRIPS) DAILY. Branch strip blood sugar 2-0 Yes [id number] USE 1 [facility] diagnostic 5-19 STRIP 2 ity of (ONETOUCH 00:00: (TWO) [place] VERIO TEST 00 TIMES Medical STRIPS) DAILY. Branch strip blood sugar 2-0 Yes [id number] USE 1 [facility] diagnostic 5-19 STRIP 2 ity of (ONETOUCH 00:00: (TWO) [place] VERIO TEST 00 TIMES Medical STRIPS) DAILY. Branch strip blood sugar 2022-0 Yes [id number] USE 1 [facility] diagnostic 5-19 STRIP 2 ity of (ONETOUCH 00:00: (TWO) [place] VERIO TEST 00 TIMES Medical STRIPS) DAILY. Branch strip blood sugar 2022-0 Yes [id number] USE 1 [facility] diagnostic 5-19 STRIP 2 ity of (ONETOUCH 00:00: (TWO) [place] VERIO TEST 00 TIMES Medical STRIPS) DAILY. Branch strip blood sugar 2022-0 Yes [id number] USE 1 [facility] diagnostic 5-19 STRIP 2 ity of (ONETOUCH 00:00: (TWO) [place] VERIO TEST 00 TIMES Medical STRIPS) DAILY. Branch strip blood sugar 2022-0 Yes [id number] USE 1 [facility] diagnostic 5-19 STRIP 2 ity of (ONETOUCH 00:00: (TWO) [place] VERIO TEST 00 TIMES Medical STRIPS) DAILY. Branch strip blood sugar 2022-0 Yes [id number] USE 1 [facility] diagnostic 5-19 STRIP 2 ity of (ONETOUCH 00:00: (TWO) [place] VERIO TEST 00 TIMES Medical STRIPS) DAILY. Branch strip blood sugar 2022-0 Yes [id number] USE 1 [facility] diagnostic 5-19 STRIP 2 ity of (ONETOUCH 00:00: (TWO) [place] VERIO TEST 00 TIMES Medical STRIPS) DAILY. Branch strip blood sugar 2022-0 Yes [id number] USE 1 [facility] diagnostic 5-19 STRIP 2 ity of (ONETOUCH 00:00: (TWO) [place] VERIO TEST 00 TIMES Medical STRIPS) DAILY. Branch strip blood sugar 2022-0 Yes [id number] USE 1 [facility] diagnostic 5-19 STRIP 2 ity of (ONETOUCH 00:00: (TWO) [place] VERIO TEST 00 TIMES Medical STRIPS) DAILY. Branch strip blood sugar 2022-0 Yes [id number] USE 1 [facility] diagnostic 5-19 STRIP 2 ity of (ONETOUCH 00:00: (TWO) [place] VERIO TEST 00 TIMES Medical STRIPS) DAILY. Branch strip blood sugar 2022-0 Yes [id number] USE 1 [facility] diagnostic 5-19 STRIP 2 ity of (ONETOUCH 00:00: (TWO) [place] VERIO TEST 00 TIMES Medical STRIPS) DAILY. Branch strip blood sugar 2022-0 Yes [id number] USE 1 [facility] diagnostic 5-19 STRIP 2 ity of (ONETOUCH 00:00: (TWO) [place] VERIO TEST 00 TIMES Medical STRIPS) DAILY. Branch strip blood sugar 2022-0 Yes [id number] USE 1 [facility] diagnostic 5-19 STRIP 2 ity of (ONETOUCH 00:00: (TWO) [place] VERIO TEST 00 TIMES Medical STRIPS) DAILY. Branch strip blood sugar 2022-0 Yes [id number] USE 1 [facility] diagnostic 5-19 STRIP 2 ity of (ONETOUCH 00:00: (TWO) [place] VERIO TEST 00 TIMES Medical STRIPS) DAILY. Branch strip blood sugar 2022-0 Yes [id number] USE 1 [facility] diagnostic 5-19 STRIP 2 ity of (ONETOUCH 00:00: (TWO) [place] VERIO TEST 00 TIMES Medical STRIPS) DAILY. Branch strip blood sugar 2022-0 Yes [id number] USE 1 [facility] diagnostic 5-19 STRIP 2 ity of (ONETOUCH 00:00: (TWO) [place] VERIO TEST 00 TIMES Medical STRIPS) DAILY. Branch strip blood sugar 2022-0 Yes [id number] USE 1 [facility] diagnostic 5-19 STRIP 2 ity of (ONETOUCH 00:00: (TWO) [place] VERIO TEST 00 TIMES Medical STRIPS) DAILY. Branch strip blood sugar 2022-0 Yes [id number] USE 1 [facility] diagnostic 5-19 STRIP 2 ity of (ONETOUCH 00:00: (TWO) [place] VERIO TEST 00 TIMES Medical STRIPS) DAILY. Branch strip blood sugar 2022-0 Yes [id number] USE 1 [facility] diagnostic 5-19 STRIP 2 ity of (ONETOUCH 00:00: (TWO) [place] VERIO TEST 00 TIMES Medical STRIPS) DAILY. Branch strip blood sugar 2022-0 Yes [id number] USE 1 [facility] diagnostic 5-19 STRIP 2 ity of (ONETOUCH 00:00: (TWO) [place] VERIO TEST 00 TIMES Medical STRIPS) DAILY. Branch strip blood sugar 2022-0 Yes [id number] USE 1 [facility] diagnostic 5-19 STRIP 2 ity of (ONETOUCH 00:00: (TWO) [place] VERIO TEST 00 TIMES Medical STRIPS) DAILY. Branch strip blood sugar 2022-0 Yes [id number] USE 1 [facility] diagnostic 5-19 STRIP 2 ity of (ONETOUCH 00:00: (TWO) [place] VERIO TEST 00 TIMES Medical STRIPS) DAILY. Branch strip blood sugar 2022-0 Yes [id number] USE 1 [facility] diagnostic 5-19 STRIP 2 ity of (ONETOUCH 00:00: (TWO) [place] VERIO TEST 00 TIMES Medical STRIPS) DAILY. Branch strip blood sugar 2022-0 Yes [id number] USE 1 [facility] diagnostic 5-19 STRIP 2 ity of (ONETOUCH 00:00: (TWO) [place] VERIO TEST 00 TIMES Medical STRIPS) DAILY. Branch strip blood sugar 2022-0 Yes [id number] USE 1 [facility] diagnostic 5-19 STRIP 2 ity of (ONETOUCH 00:00: (TWO) [place] VERIO TEST 00 TIMES Medical STRIPS) DAILY. Branch strip blood sugar 2022-0 Yes [id number] USE 1 [facility] diagnostic 5-19 STRIP 2 ity of (ONETOUCH 00:00: (TWO) [place] VERIO TEST 00 TIMES Medical STRIPS) DAILY. Branch strip blood sugar 2022-0 Yes [id number] USE 1 [facility] diagnostic 5-19 STRIP 2 ity of (ONETOUCH 00:00: (TWO) [place] VERIO TEST 00 TIMES Medical STRIPS) DAILY. Branch strip blood sugar 2022-0 Yes [id number] USE 1 [facility] diagnostic 5-19 STRIP 2 ity of (ONETOUCH 00:00: (TWO) [place] VERIO TEST 00 TIMES Medical STRIPS) DAILY. Branch strip blood sugar 2022-0 Yes [id number] USE 1 [facility] diagnostic 5-19 STRIP 2 ity of (ONETOUCH 00:00: (TWO) [place] VERIO TEST 00 TIMES Medical STRIPS) DAILY. Branch strip blood sugar 2022-0 Yes [id number] USE 1 [facility] diagnostic 5-19 STRIP 2 ity of (ONETOUCH 00:00: (TWO) [place] VERIO TEST 00 TIMES Medical STRIPS) DAILY. Branch strip blood sugar 2022-0 Yes [id number] USE 1 [facility] diagnostic 5-19 STRIP 2 ity of (ONETOUCH 00:00: (TWO) [place] VERIO TEST 00 TIMES Medical STRIPS) DAILY. Branch strip blood sugar 2022-0 Yes [id number] USE 1 [facility] diagnostic 5-19 STRIP 2 ity of (ONETOUCH 00:00: (TWO) [place] VERIO TEST 00 TIMES Medical STRIPS) DAILY. Branch strip blood sugar 2022-0 Yes [id number] USE 1 [facility] diagnostic 5-19 STRIP 2 ity of (ONETOUCH 00:00: (TWO) [place] VERIO TEST 00 TIMES Medical STRIPS) DAILY. Branch strip blood sugar 2022-0 Yes [id number] USE 1 [facility] diagnostic 5-19 STRIP 2 ity of (ONETOUCH 00:00: (TWO) [place] VERIO TEST 00 TIMES Medical STRIPS) DAILY. Branch strip blood sugar 2022-0 Yes [id number] USE 1 [facility] diagnostic 5-19 STRIP 2 ity of (ONETOUCH 00:00: (TWO) [place] VERIO TEST 00 TIMES Medical STRIPS) DAILY. Branch strip blood sugar 2022-0 Yes [id number] USE 1 [facility] diagnostic 5-19 STRIP 2 ity of (ONETOUCH 00:00: (TWO) [place] VERIO TEST 00 TIMES Medical STRIPS) DAILY. Branch strip blood sugar 2022-0 Yes [id number] USE 1 [facility] diagnostic 5-19 STRIP 2 ity of (ONETOUCH 00:00: (TWO) [place] VERIO TEST 00 TIMES Medical STRIPS) DAILY. Branch strip blood sugar 2022-0 Yes [id number] USE 1 [facility] diagnostic 5-19 STRIP 2 ity of (ONETOUCH 00:00: (TWO) [place] VERIO TEST 00 TIMES Medical STRIPS) DAILY. Branch strip blood sugar 2022-0 Yes [id number] USE 1 [facility] diagnostic 5-19 STRIP 2 ity of (ONETOUCH 00:00: (TWO) [place] VERIO TEST 00 TIMES Medical STRIPS) DAILY. Branch strip blood sugar 2022-0 Yes [id number] USE 1 [facility] diagnostic 5-19 STRIP 2 ity of (ONETOUCH 00:00: (TWO) [place] VERIO TEST 00 TIMES Medical STRIPS) DAILY. Branch strip blood sugar 2022-0 Yes [id number] USE 1 [facility] diagnostic 5-19 STRIP 2 ity of (ONETOUCH 00:00: (TWO) [place] VERIO TEST 00 TIMES Medical STRIPS) DAILY. Branch strip blood sugar 2022-0 Yes [id number] USE 1 [facility] diagnostic 5-19 STRIP 2 ity of (ONETOUCH 00:00: (TWO) [place] VERIO TEST 00 TIMES Medical STRIPS) DAILY. Branch strip blood sugar 2022-0 Yes [id number] USE 1 [facility] diagnostic 5-19 STRIP 2 ity of (ONETOUCH 00:00: (TWO) [place] VERIO TEST 00 TIMES Medical STRIPS) DAILY. Branch strip blood sugar 2022-0 Yes [id number] USE 1 [facility] diagnostic 5-19 STRIP 2 ity of (ONETOUCH 00:00: (TWO) [place] VERIO TEST 00 TIMES Medical STRIPS) DAILY. Branch strip blood sugar 2022-0 Yes [id number] USE 1 [facility] diagnostic 5-19 STRIP 2 ity of (ONETOUCH 00:00: (TWO) [place] VERIO TEST 00 TIMES Medical STRIPS) DAILY. Branch strip blood sugar 2022-0 Yes [id number] USE 1 [facility] diagnostic 5-19 STRIP 2 ity of (ONETOUCH 00:00: (TWO) [place] VERIO TEST 00 TIMES Medical STRIPS) DAILY. Branch strip blood sugar 2022-0 Yes [id number] USE 1 [facility] diagnostic 5-19 STRIP 2 ity of (ONETOUCH 00:00: (TWO) [place] VERIO TEST 00 TIMES Medical STRIPS) DAILY. Branch strip blood sugar 2-0 Yes [id number] USE 1 [facility] diagnostic 5-19 STRIP 2 ity of (ONETOUCH 00:00: (TWO) [place] VERIO TEST 00 TIMES Medical STRIPS) DAILY. Branch strip blood sugar 2022-0 Yes [id number] USE 1 [facility] diagnostic 5-19 STRIP 2 ity of (ONETOUCH 00:00: (TWO) [place] VERIO TEST 00 TIMES Medical STRIPS) DAILY. Branch strip blood sugar 2022-0 Yes [id number] USE 1 [facility] diagnostic 5-19 STRIP 2 ity of (ONETOUCH 00:00: (TWO) [place] VERIO TEST 00 TIMES Medical STRIPS) DAILY. Branch strip blood sugar 2022-0 Yes [id number] USE 1 [facility] diagnostic 5-19 STRIP 2 ity of (ONETOUCH 00:00: (TWO) [place] VERIO TEST 00 TIMES Medical STRIPS) DAILY. Branch strip blood sugar 2022-0 Yes [id number] USE 1 [facility] diagnostic 5-19 STRIP 2 ity of (ONETOUCH 00:00: (TWO) [place] VERIO TEST 00 TIMES Medical STRIPS) DAILY. Branch strip blood sugar 2022-0 Yes [id number] USE 1 [facility] diagnostic 5-19 STRIP 2 ity of (ONETOUCH 00:00: (TWO) [place] VERIO TEST 00 TIMES Medical STRIPS) DAILY. Branch strip blood sugar 2022-0 Yes [id number] USE 1 [facility] diagnostic 5-19 STRIP 2 ity of (ONETOUCH 00:00: (TWO) [place] VERIO TEST 00 TIMES Medical STRIPS) DAILY. Branch strip blood sugar 2022-0 Yes [id number] USE 1 [facility] diagnostic 5-19 STRIP 2 ity of (ONETOUCH 00:00: (TWO) [place] VERIO TEST 00 TIMES Medical STRIPS) DAILY. Branch strip blood sugar 2022-0 Yes [id number] USE 1 [facility] diagnostic 5-19 STRIP 2 ity of (ONETOUCH 00:00: (TWO) [place] VERIO TEST 00 TIMES Medical STRIPS) DAILY. Branch strip blood sugar 2022-0 Yes [id number] USE 1 [facility] diagnostic 5-19 STRIP 2 ity of (ONETOUCH 00:00: (TWO) [place] VERIO TEST 00 TIMES Medical STRIPS) DAILY. Branch strip blood sugar 2022-0 Yes [id number] USE 1 [facility] diagnostic 5-19 STRIP 2 ity of (ONETOUCH 00:00: (TWO) [place] VERIO TEST 00 TIMES Medical STRIPS) DAILY. Branch strip blood sugar 2022-0 Yes [id number] USE 1 [facility] diagnostic 5-19 STRIP 2 ity of (ONETOUCH 00:00: (TWO) [place] VERIO TEST 00 TIMES Medical STRIPS) DAILY. Branch strip blood sugar 2022-0 Yes [id number] USE 1 [facility] diagnostic 5-19 STRIP 2 ity of (ONETOUCH 00:00: (TWO) [place] VERIO TEST 00 TIMES Medical STRIPS) DAILY. Branch strip blood sugar 2022-0 Yes [id number] USE 1 [facility] diagnostic 5-19 STRIP 2 ity of (ONETOUCH 00:00: (TWO) [place] VERIO TEST 00 TIMES Medical STRIPS) DAILY. Branch strip blood sugar 2022-0 Yes [id number] USE 1 [facility] diagnostic 5-19 STRIP 2 ity of (ONETOUCH 00:00: (TWO) [place] VERIO TEST 00 TIMES Medical STRIPS) DAILY. Branch strip blood sugar 2022-0 Yes [id number] USE 1 [facility] diagnostic 5-19 STRIP 2 ity of (ONETOUCH 00:00: (TWO) [place] VERIO TEST 00 TIMES Medical STRIPS) DAILY. Branch strip blood sugar 2022-0 Yes [id number] USE 1 [facility] diagnostic 5-19 STRIP 2 ity of (ONETOUCH 00:00: (TWO) [place] VERIO TEST 00 TIMES Medical STRIPS) DAILY. Branch strip blood sugar 2022-0 Yes [id number] USE 1 [facility] diagnostic 5-19 STRIP 2 ity of (ONETOUCH 00:00: (TWO) [place] VERIO TEST 00 TIMES Medical STRIPS) DAILY. Branch strip blood sugar 2022-0 Yes [id number] USE 1 [facility] diagnostic 5-19 STRIP 2 ity of (ONETOUCH 00:00: (TWO) [place] VERIO TEST 00 TIMES Medical STRIPS) DAILY. Branch strip blood sugar 2022-0 Yes [id number] USE 1 [facility] diagnostic 5-19 STRIP 2 ity of (ONETOUCH 00:00: (TWO) [place] VERIO TEST 00 TIMES Medical STRIPS) DAILY. Branch strip blood sugar 2022-0 Yes [id number] USE 1 [facility] diagnostic 5-19 STRIP 2 ity of (ONETOUCH 00:00: (TWO) [place] VERIO TEST 00 TIMES Medical STRIPS) DAILY. Branch strip blood sugar 2022-0 Yes [id number] USE 1 [facility] diagnostic 5-19 STRIP 2 ity of (ONETOUCH 00:00: (TWO) [place] VERIO TEST 00 TIMES Medical STRIPS) DAILY. Branch strip blood sugar 2022-0 Yes [id number] USE 1 [facility] diagnostic 5-19 STRIP 2 ity of (ONETOUCH 00:00: (TWO) [place] VERIO TEST 00 TIMES Medical STRIPS) DAILY. Branch strip blood sugar 2022-0 Yes [id number] USE 1 [facility] diagnostic 5-19 STRIP 2 ity of (ONETOUCH 00:00: (TWO) [place] VERIO TEST 00 TIMES Medical STRIPS) DAILY. Branch strip blood sugar 2022-0 Yes [id number] USE 1 [facility] diagnostic 5-19 STRIP 2 ity of (ONETOUCH 00:00: (TWO) [place] VERIO TEST 00 TIMES Medical STRIPS) DAILY. Branch strip blood sugar 2022-0 Yes [id number] USE 1 [facility] diagnostic 5-19 STRIP 2 ity of (ONETOUCH 00:00: (TWO) [place] VERIO TEST 00 TIMES Medical STRIPS) DAILY. Branch strip blood sugar 2022-0 Yes [id number] USE 1 [facility] diagnostic 5-19 STRIP 2 ity of (ONETOUCH 00:00: (TWO) [place] VERIO TEST 00 TIMES Medical STRIPS) DAILY. Branch strip blood sugar 2022-0 Yes [id number] USE 1 [facility] diagnostic 5-19 STRIP 2 ity of (ONETOUCH 00:00: (TWO) [place] VERIO TEST 00 TIMES Medical STRIPS) DAILY. Branch strip blood sugar 2022-0 Yes [id number] USE 1 [facility] diagnostic 5-19 STRIP 2 ity of (ONETOUCH 00:00: (TWO) [place] VERIO TEST 00 TIMES Medical STRIPS) DAILY. Branch strip blood sugar 2022-0 Yes [id number] USE 1 [facility] diagnostic 5-19 STRIP 2 ity of (ONETOUCH 00:00: (TWO) [place] VERIO TEST 00 TIMES Medical STRIPS) DAILY. Branch strip blood sugar 2022-0 Yes [id number] USE 1 [facility] 5-19 STRIP 2 ity of (ONETOUCH 00:00: (TWO) [place] VERIO TEST 00 TIMES Medical STRIPS) DAILY. Branch strip blood sugar 2022-0 Yes [id number] USE 1 [facility] 5-19 STRIP 2 ity of (ONETOUCH 00:00: (TWO) [place] VERIO TEST 00 TIMES Medical STRIPS) DAILY. Branch strip blood sugar 2022-0 Yes [id number] USE 1 [facility] diagnostic 5-19 STRIP 2 ity of (ONETOUCH 00:00: (TWO) [place] VERIO TEST 00 TIMES Medical STRIPS) DAILY. Branch strip blood sugar 2022-0 Yes [id number] USE 1 [facility] 5-19 STRIP 2 ity of (ONETOUCH 00:00: (TWO) [place] VERIO TEST 00 TIMES Medical STRIPS) DAILY. Branch strip blood sugar 2022-0 Yes [id number] USE 1 [facility] 5-19 STRIP 2 ity of (ONETOUCH 00:00: (TWO) [place] VERIO TEST 00 TIMES Medical STRIPS) DAILY. Branch strip blood sugar 2022-0 Yes [id number] USE 1 [facility] 5-19 STRIP 2 ity of (ONETOUCH 00:00: (TWO) [place] VERIO TEST 00 TIMES Medical STRIPS) DAILY. Branch strip blood sugar 2022-0 Yes [id number] USE 1 [facility] 5-19 STRIP 2 ity of (ONETOUCH 00:00: (TWO) [place] VERIO TEST 00 TIMES Medical STRIPS) DAILY. Branch strip blood sugar 2022-0 Yes [id number] USE 1 [facility] 5-19 STRIP 2 ity of (ONETOUCH 00:00: (TWO) [place] VERIO TEST 00 TIMES Medical STRIPS) DAILY. Branch strip blood sugar 2022-0 Yes [id number] USE 1 [facility] 5-19 STRIP 2 ity of (ONETOUCH 00:00: (TWO) [place] VERIO TEST 00 TIMES Medical STRIPS) DAILY. Branch strip blood sugar 2022-0 Yes [id number] USE 1 [facility] diagnostic 5-19 STRIP 2 ity of (ONETOUCH 00:00: (TWO) [place] VERIO TEST 00 TIMES Medical STRIPS) DAILY. Branch strip blood sugar 2022-0 Yes [id number] USE 1 [facility] diagnostic 5-19 STRIP 2 ity of (ONETOUCH 00:00: (TWO) [place] VERIO TEST 00 TIMES Medical STRIPS) DAILY. Branch strip blood sugar 2022-0 Yes [id number] USE 1 [facility] 5-19 STRIP 2 ity of (ONETOUCH 00:00: (TWO) [place] VERIO TEST 00 TIMES Medical STRIPS) DAILY. Branch strip blood sugar 2022-0 Yes [id number] USE 1 [facility] diagnostic 5-19 STRIP 2 ity of (ONETOUCH 00:00: (TWO) [place] VERIO TEST 00 TIMES Medical STRIPS) DAILY. Branch strip blood sugar 2022-0 Yes [id number] USE 1 [facility] diagnostic 5-19 STRIP 2 ity of (ONETOUCH 00:00: (TWO) [place] VERIO TEST 00 TIMES Medical STRIPS) DAILY. Branch strip blood sugar 2022-0 Yes [id number] USE 1 [facility] diagnostic 5-19 STRIP 2 ity of (ONETOUCH 00:00: (TWO) [place] VERIO TEST 00 TIMES Medical STRIPS) DAILY. Branch strip blood sugar 2022-0 Yes [id number] USE 1 [facility] diagnostic 5-19 STRIP 2 ity of (ONETOUCH 00:00: (TWO) [place] VERIO TEST 00 TIMES Medical STRIPS) DAILY. Branch strip blood sugar 2022-0 Yes [id number] USE 1 [facility] diagnostic 5-19 STRIP 2 ity of (ONETOUCH 00:00: (TWO) [place] VERIO TEST 00 TIMES Medical STRIPS) DAILY. Branch strip blood sugar 2022-0 Yes [id number] USE 1 [facility] diagnostic 5-19 STRIP 2 ity of (ONETOUCH 00:00: (TWO) [place] VERIO TEST 00 TIMES Medical STRIPS) DAILY. Branch strip blood sugar 2022-0 Yes [id number] USE 1 [facility] diagnostic 5-19 STRIP 2 ity of (ONETOUCH 00:00: (TWO) [place] VERIO TEST 00 TIMES Medical STRIPS) DAILY. Branch strip blood sugar 2022-0 Yes [id number] USE 1 [facility] diagnostic 5-19 STRIP 2 ity of (ONETOUCH 00:00: (TWO) [place] VERIO TEST 00 TIMES Medical STRIPS) DAILY. Branch strip blood sugar 2021-0 Yes [id number] USE 1 [facility] 5-19 STRIP 2 ity of (ONETOUCH 00:00: (TWO) [place] VERIO TEST 00 TIMES Medical STRIPS) DAILY. Branch strip blood sugar 2021-0 Yes [id number] USE 1 [facility] diagnostic 5-19 STRIP 2 ity of (ONETOUCH 00:00: (TWO) [place] VERIO TEST 00 TIMES Medical STRIPS) DAILY. Branch strip blood sugar 2021-0 Yes [id number] USE 1 [facility] diagnostic 5-19 STRIP 2 ity of (ONETOUCH 00:00: (TWO) [place] VERIO TEST 00 TIMES Medical STRIPS) DAILY. Branch strip ondansetron 2021-0 Yes [id number] 4mg Take 5 mL [facility] (ZOFRAN) 4 5-17 by mouth 2 ity of mg/5 mL 00:00: (two) [place] solution 00 times Medical daily as Branch needed for Nausea and Vomiting (N/V) or N/V unresponsi ve to Promethazi ne. nystatin 2-0 Yes [id number] Apply to U nivers 100,000 5-17 area(s) 2 ity of unit/gram 00:00: (two) [place] powder 00 times Medical daily. Branch ondansetron 2021-0 Yes [id number] 4mg Take 5 mL [facility] (ZOFRAN) 4 5-17 by mouth 2 ity of mg/5 mL 00:00: (two) [place] solution 00 times Medical daily as Branch needed for Nausea and Vomiting (N/V) or N/V unresponsi ve to Promethazi ne. nystatin 2-0 Yes [id number] Apply to U nivers 100,000 5-17 area(s) 2 ity of unit/gram 00:00: (two) [place] powder 00 times Medical daily. Branch ondansetron 2-0 Yes [id number] 4mg Take 5 mL [facility] (ZOFRAN) 4 5-17 by mouth 2 ity of mg/5 mL 00:00: (two) [place] solution 00 times Medical daily as Branch needed for Nausea and Vomiting (N/V) or N/V unresponsi ve to Promethazi ne. nystatin 2022-0 Yes [id number] Apply to U nivers 100,000 5-17 area(s) 2 ity of unit/gram 00:00: (two) [place] powder 00 times Medical daily. Branch ondansetron 2021-0 Yes [id number] 4mg Take 5 mL [facility] (ZOFRAN) 4 5-17 by mouth 2 ity of mg/5 mL 00:00: (two) [place] solution 00 times Medical daily as Branch needed for Nausea and Vomiting (N/V) or N/V unresponsi ve to Promethwai ne. nystatin 2021-0 Yes [id number] Apply to [facility] 100,000 5-17 area(s) 2 ity of unit/gram 00:00: (two) [place] powder 00 times Medical daily. Branch ondansetron 2021-0 Yes [id number] 4mg Take 5 mL [facility] (ZOFRAN) 4 5-17 by mouth 2 ity of mg/5 mL 00:00: (two) [place] solution 00 times Medical daily as Branch needed for Nausea and Vomiting (N/V) or N/V unresponsi ve to [facility]. nystatin 2021-0 Yes [id number] Apply to U [facility] 100,000 5-17 area(s) 2 ity of unit/gram 00:00: (two) [place] powder 00 times Medical daily. Branch ondansetron 2021-0 Yes [id number] 4mg Take 5 mL [facility] (ZOFRAN) 4 5-17 by mouth 2 ity of mg/5 mL 00:00: (two) [place] solution 00 times Medical daily as Branch needed for Nausea and Vomiting (N/V) [facility]-0 Yes [id number] Apply to [facility] 100,000 5-17 area(s) 2 ity of unit/gram 00:00: (two) [place] powder 00 times Medical daily. Branch ondansetron 2-0 Yes [id number] 4mg Take 5 mL [facility] (ZOFRAN) 4 5-17 by mouth 2 ity of mg/5 mL 00:00: (two) [place] solution 00 times Medical daily as Branch needed for Nausea and Vomiting (N/V) or N/V unresponsi ve to Promethazi ne. nystatin 2-0 Yes [id number] Apply to U nivers 100,000 5-17 area(s) 2 ity of unit/gram 00:00: (two) [place] powder 00 times Medical daily. Branch ondansetron 2-0 Yes [id number] 4mg Take 5 mL [facility] (ZOFRAN) 4 5-17 by mouth 2 ity of mg/5 mL 00:00: (two) [place] solution 00 times Medical daily as Branch needed for Nausea and Vomiting (N/V) or N/V unresponsi ve to [facility]. nystatin 2-0 Yes [id number] Apply to U nivers 100,000 5-17 area(s) 2 ity of unit/gram 00:00: (two) [place] powder 00 times Medical daily. Branch ondansetron 2021-0 Yes [id number] 4mg Take 5 mL [facility] (ZOFRAN) 4 5-17 by mouth 2 ity of mg/5 mL 00:00: (two) [place] solution 00 times Medical daily as Branch needed for Nausea and Vomiting (N/V) or N/V unresponsi ve to [facility]. nystatin 2021-0 Yes [id number] Apply to U nivers 100,000 5-17 area(s) 2 ity of unit/gram 00:00: (two) [place] powder 00 times Medical daily. Branch ondansetron 2021-0 Yes [id number] 4mg Take 5 mL [facility] (ZOFRAN) 4 5-17 by mouth 2 ity of mg/5 mL 00:00: (two) [place] solution 00 times Medical daily as Branch needed for Nausea and Vomiting (N/V) or N/V unresponsi ve to [facility]. nystatin 2-0 Yes [id number] Apply to U nivers 100,000 5-17 area(s) 2 ity of unit/gram 00:00: (two) [place] powder 00 times Medical daily. Branch nystatin 2022-0 Yes [id number] Apply to U nivers 100,000 5-17 area(s) 2 ity of unit/gram 00:00: (two) [place] powder 00 times Medical daily. Branch nystatin 2022-0 Yes [id number] Apply to U nivers 100,000 5-17 area(s) 2 ity of unit/gram 00:00: (two) [place] powder 00 times Medical daily. Branch nystatin 2022-0 Yes [id number] Apply to U nivers 100,000 5-17 area(s) 2 ity of unit/gram 00:00: (two) [place] powder 00 times Medical daily. Branch nystatin 2022-0 Yes [id number] Apply to U nivers 100,000 5-17 area(s) 2 ity of unit/gram 00:00: (two) [place] powder 00 times Medical daily. Branch nystatin 2022-0 Yes [id number] Apply to U nivers 100,000 5-17 area(s) 2 ity of unit/gram 00:00: (two) [place] powder 00 times Medical daily. Branch nystatin 2022-0 Yes [id number] Apply to U nivers 100,000 5-17 area(s) 2 ity of unit/gram 00:00: (two) [place] powder 00 times Medical daily. Branch nystatin 2022-0 Yes [id number] Apply to U nivers 100,000 5-17 area(s) 2 ity of unit/gram 00:00: (two) [place] powder 00 times Medical daily. Branch nystatin 2022-0 Yes [id number] Apply to U nivers 100,000 5-17 area(s) 2 ity of unit/gram 00:00: (two) [place] powder 00 times Medical daily. Branch nystatin 2022-0 Yes [id number] Apply to U nivers 100,000 5-17 area(s) 2 ity of unit/gram 00:00: (two) [place] powder 00 times Medical daily. Branch nystatin 2022-0 Yes [id number] Apply to U nivers 100,000 5-17 area(s) 2 ity of unit/gram 00:00: (two) [place] powder 00 times Medical daily. Branch nystatin 2022-0 Yes [id number] Apply to U nivers 100,000 5-17 area(s) 2 ity of unit/gram 00:00: (two) [place] powder 00 times Medical daily. Branch nystatin 2022-0 Yes [id number] Apply to U nivers 100,000 5-17 area(s) 2 ity of unit/gram 00:00: (two) [place] powder 00 times Medical daily. Branch nystatin 2022-0 Yes [id number] Apply to U nivers 100,000 5-17 area(s) 2 ity of unit/gram 00:00: (two) [place] powder 00 times Medical daily. Branch nystatin 2022-0 Yes [id number] Apply to U nivers 100,000 5-17 area(s) 2 ity of unit/gram 00:00: (two) [place] powder 00 times Medical daily. Branch nystatin 2022-0 Yes [id number] Apply to U nivers 100,000 5-17 area(s) 2 ity of unit/gram 00:00: (two) [place] powder 00 times Medical daily. Branch nystatin 2022-0 Yes [id number] Apply to U nivers 100,000 5-17 area(s) 2 ity of unit/gram 00:00: (two) [place] powder 00 times Medical daily. Branch nystatin 2022-0 Yes [id number] Apply to U nivers 100,000 5-17 area(s) 2 ity of unit/gram 00:00: (two) [place] powder 00 times Medical daily. Branch nystatin 2022-0 Yes [id number] Apply to U nivers 100,000 5-17 area(s) 2 ity of unit/gram 00:00: (two) [place] powder 00 times Medical daily. Branch nystatin 2022-0 Yes [id number] Apply to U nivers 100,000 5-17 area(s) 2 ity of unit/gram 00:00: (two) [place] powder 00 times Medical daily. Branch nystatin 2022-0 Yes [id number] Apply to U nivers 100,000 5-17 area(s) 2 ity of unit/gram 00:00: (two) [place] powder 00 times Medical daily. Branch nystatin 2022-0 Yes [id number] Apply to U nivers 100,000 5-17 area(s) 2 ity of unit/gram 00:00: (two) [place] powder 00 times Medical daily. Branch nystatin 2022-0 Yes [id number] Apply to U nivers 100,000 5-17 area(s) 2 ity of unit/gram 00:00: (two) [place] powder 00 times Medical daily. Branch nystatin 2022-0 Yes [id number] Apply to U nivers 100,000 5-17 area(s) 2 ity of unit/gram 00:00: (two) [place] powder 00 times Medical daily. Branch nystatin 2022-0 Yes [id number] Apply to U nivers 100,000 5-17 area(s) 2 ity of unit/gram 00:00: (two) [place] powder 00 times Medical daily. Branch nystatin 2022-0 Yes [id number] Apply to U nivers 100,000 5-17 area(s) 2 ity of unit/gram 00:00: (two) [place] powder 00 times Medical daily. Branch nystatin 2022-0 Yes [id number] Apply to U nivers 100,000 5-17 area(s) 2 ity of unit/gram 00:00: (two) [place] powder 00 times Medical daily. Branch nystatin 2022-0 Yes [id number] Apply to U nivers 100,000 5-17 area(s) 2 ity of unit/gram 00:00: (two) [place] powder 00 times Medical daily. Branch nystatin 2022-0 Yes [id number] Apply to U nivers 100,000 5-17 area(s) 2 ity of unit/gram 00:00: (two) [place] powder 00 times Medical daily. Branch nystatin 2022-0 Yes [id number] Apply to U nivers 100,000 5-17 area(s) 2 ity of unit/gram 00:00: (two) [place] powder 00 times Medical daily. Branch nystatin 2022-0 Yes [id number] Apply to U nivers 100,000 5-17 area(s) 2 ity of unit/gram 00:00: (two) [place] powder 00 times Medical daily. Branch nystatin 2022-0 Yes [id number] Apply to U nivers 100,000 5-17 area(s) 2 ity of unit/gram 00:00: (two) [place] powder 00 times Medical daily. Branch nystatin 2022-0 Yes [id number] Apply to U nivers 100,000 5-17 area(s) 2 ity of unit/gram 00:00: (two) [place] powder 00 times Medical daily. Branch nystatin 2022-0 Yes [id number] Apply to U nivers 100,000 5-17 area(s) 2 ity of unit/gram 00:00: (two) [place] powder 00 times Medical daily. Branch nystatin 2022-0 Yes [id number] Apply to U nivers 100,000 5-17 area(s) 2 ity of unit/gram 00:00: (two) [place] powder 00 times Medical daily. Branch nystatin 2022-0 Yes [id number] Apply to U nivers 100,000 5-17 area(s) 2 ity of unit/gram 00:00: (two) [place] powder 00 times Medical daily. Branch nystatin 2022-0 Yes [id number] Apply to U nivers 100,000 5-17 area(s) 2 ity of unit/gram 00:00: (two) [place] powder 00 times Medical daily. Branch nystatin 2022-0 Yes [id number] Apply to U nivers 100,000 5-17 area(s) 2 ity of unit/gram 00:00: (two) [place] powder 00 times Medical daily. Branch nystatin 2022-0 Yes [id number] Apply to U nivers 100,000 5-17 area(s) 2 ity of unit/gram 00:00: (two) [place] powder 00 times Medical daily. Branch nystatin 2022-0 Yes [id number] Apply to U nivers 100,000 5-17 area(s) 2 ity of unit/gram 00:00: (two) [place] powder 00 times Medical daily. Branch nystatin 2022-0 Yes [id number] Apply to U nivers 100,000 5-17 area(s) 2 ity of unit/gram 00:00: (two) [place] powder 00 times Medical daily. Branch nystatin 2022-0 Yes [id number] Apply to U nivers 100,000 5-17 area(s) 2 ity of unit/gram 00:00: (two) [place] powder 00 times Medical daily. Branch nystatin 2022-0 Yes [id number] Apply to U nivers 100,000 5-17 area(s) 2 ity of unit/gram 00:00: (two) [place] powder 00 times Medical daily. Branch nystatin 2022-0 Yes [id number] Apply to U nivers 100,000 5-17 area(s) 2 ity of unit/gram 00:00: (two) [place] powder 00 times Medical daily. Branch nystatin 2022-0 Yes [id number] Apply to U nivers 100,000 5-17 area(s) 2 ity of unit/gram 00:00: (two) [place] powder 00 times Medical daily. Branch nystatin 2022-0 Yes [id number] Apply to U nivers 100,000 5-17 area(s) 2 ity of unit/gram 00:00: (two) [place] powder 00 times Medical daily. Branch nystatin 2022-0 Yes [id number] Apply to U nivers 100,000 5-17 area(s) 2 ity of unit/gram 00:00: (two) [place] powder 00 times Medical daily. Branch nystatin 2022-0 Yes [id number] Apply to U nivers 100,000 5-17 area(s) 2 ity of unit/gram 00:00: (two) [place] powder 00 times Medical daily. Branch nystatin 2022-0 Yes [id number] Apply to U nivers 100,000 5-17 area(s) 2 ity of unit/gram 00:00: (two) [place] powder 00 times Medical daily. Branch nystatin 2022-0 Yes [id number] Apply to U nivers 100,000 5-17 area(s) 2 ity of unit/gram 00:00: (two) [place] powder 00 times Medical daily. Branch nystatin 2022-0 Yes [id number] Apply to U nivers 100,000 5-17 area(s) 2 ity of unit/gram 00:00: (two) [place] powder 00 times Medical daily. Branch nystatin 2022-0 Yes [id number] Apply to U nivers 100,000 5-17 area(s) 2 ity of unit/gram 00:00: (two) [place] powder 00 times Medical daily. Branch nystatin 2022-0 Yes [id number] Apply to U nivers 100,000 5-17 area(s) 2 ity of unit/gram 00:00: (two) [place] powder 00 times Medical daily. Branch nystatin 2022-0 Yes [id number] Apply to U nivers 100,000 5-17 area(s) 2 ity of unit/gram 00:00: (two) [place] powder 00 times Medical daily. Branch nystatin 2022-0 Yes [id number] Apply to U nivers 100,000 5-17 area(s) 2 ity of unit/gram 00:00: (two) [place] powder 00 times Medical daily. Branch nystatin 2022-0 Yes [id number] Apply to U nivers 100,000 5-17 area(s) 2 ity of unit/gram 00:00: (two) [place] powder 00 times Medical daily. Branch nystatin 2022-0 Yes [id number] Apply to U nivers 100,000 5-17 area(s) 2 ity of unit/gram 00:00: (two) [place] powder 00 times Medical daily. Branch nystatin 2022-0 Yes [id number] Apply to U nivers 100,000 5-17 area(s) 2 ity of unit/gram 00:00: (two) [place] powder 00 times Medical daily. Branch nystatin 2022-0 Yes [id number] Apply to U nivers 100,000 5-17 area(s) 2 ity of unit/gram 00:00: (two) [place] powder 00 times Medical daily. Branch nystatin 2022-0 Yes [id number] Apply to U nivers 100,000 5-17 area(s) 2 ity of unit/gram 00:00: (two) [place] powder 00 times Medical daily. Branch nystatin 2022-0 Yes [id number] Apply to U nivers 100,000 5-17 area(s) 2 ity of unit/gram 00:00: (two) [place] powder 00 times Medical daily. Branch nystatin 2022-0 Yes [id number] Apply to U nivers 100,000 5-17 area(s) 2 ity of unit/gram 00:00: (two) [place] powder 00 times Medical daily. Branch nystatin 2022-0 Yes [id number] Apply to U nivers 100,000 5-17 area(s) 2 ity of unit/gram 00:00: (two) [place] powder 00 times Medical daily. Branch nystatin 2022-0 Yes [id number] Apply to U nivers 100,000 5-17 area(s) 2 ity of unit/gram 00:00: (two) [place] powder 00 times Medical daily. Branch nystatin 2022-0 Yes [id number] Apply to U nivers 100,000 5-17 area(s) 2 ity of unit/gram 00:00: (two) [place] powder 00 times Medical daily. Branch nystatin 2022-0 Yes [id number] Apply to U nivers 100,000 5-17 area(s) 2 ity of unit/gram 00:00: (two) [place] powder 00 times Medical daily. Branch nystatin 2022-0 Yes [id number] Apply to U nivers 100,000 5-17 area(s) 2 ity of unit/gram 00:00: (two) [place] powder 00 times Medical daily. Branch nystatin 2022-0 Yes [id number] Apply to U nivers 100,000 5-17 area(s) 2 ity of unit/gram 00:00: (two) [place] powder 00 times Medical daily. Branch nystatin 2022-0 Yes [id number] Apply to U nivers 100,000 5-17 area(s) 2 ity of unit/gram 00:00: (two) [place] powder 00 times Medical daily. Branch nystatin 2022-0 Yes [id number] Apply to U nivers 100,000 5-17 area(s) 2 ity of unit/gram 00:00: (two) [place] powder 00 times Medical daily. Branch nystatin 2022-0 Yes [id number] Apply to U nivers 100,000 5-17 area(s) 2 ity of unit/gram 00:00: (two) [place] powder 00 times Medical daily. Branch nystatin 2022-0 Yes [id number] Apply to U nivers 100,000 5-17 area(s) 2 ity of unit/gram 00:00: (two) [place] powder 00 times Medical daily. Branch nystatin 2022-0 Yes [id number] Apply to U nivers 100,000 5-17 area(s) 2 ity of unit/gram 00:00: (two) [place] powder 00 times Medical daily. Branch nystatin 2022-0 Yes [id number] Apply to U nivers 100,000 5-17 area(s) 2 ity of unit/gram 00:00: (two) [place] powder 00 times Medical daily. Branch nystatin 2022-0 Yes [id number] Apply to U nivers 100,000 5-17 area(s) 2 ity of unit/gram 00:00: (two) [place] powder 00 times Medical daily. Branch nystatin 2022-0 Yes [id number] Apply to U nivers 100,000 5-17 area(s) 2 ity of unit/gram 00:00: (two) [place] powder 00 times Medical daily. Branch nystatin 2022-0 Yes [id number] Apply to U nivers 100,000 5-17 area(s) 2 ity of unit/gram 00:00: (two) [place] powder 00 times Medical daily. Branch nystatin 2022-0 Yes [id number] Apply to U nivers 100,000 5-17 area(s) 2 ity of unit/gram 00:00: (two) [place] powder 00 times Medical daily. Branch nystatin 2022-0 Yes [id number] Apply to U nivers 100,000 5-17 area(s) 2 ity of unit/gram 00:00: (two) [place] powder 00 times Medical daily. Branch nystatin 2022-0 Yes [id number] Apply to U nivers 100,000 5-17 area(s) 2 ity of unit/gram 00:00: (two) [place] powder 00 times Medical daily. Branch nystatin 2022-0 Yes [id number] Apply to U nivers 100,000 5-17 area(s) 2 ity of unit/gram 00:00: (two) [place] powder 00 times Medical daily. Branch nystatin 2022-0 Yes [id number] Apply to U nivers 100,000 5-17 area(s) 2 ity of unit/gram 00:00: (two) [place] powder 00 times Medical daily. Branch nystatin 2022-0 Yes [id number] Apply to U nivers 100,000 5-17 area(s) 2 ity of unit/gram 00:00: (two) [place] powder 00 times Medical daily. Branch nystatin 2022-0 Yes [id number] Apply to U nivers 100,000 5-17 area(s) 2 ity of unit/gram 00:00: (two) [place] powder 00 times Medical daily. Branch nystatin 2022-0 Yes [id number] Apply to U nivers 100,000 5-17 area(s) 2 ity of unit/gram 00:00: (two) [place] powder 00 times Medical daily. Branch nystatin 2022-0 Yes [id number] Apply to U nivers 100,000 5-17 area(s) 2 ity of unit/gram 00:00: (two) [place] powder 00 times Medical daily. Branch nystatin 2022-0 Yes [id number] Apply to U nivers 100,000 5-17 area(s) 2 ity of unit/gram 00:00: (two) [place] powder 00 times Medical daily. Branch nystatin 2022-0 Yes [id number] Apply to U nivers 100,000 5-17 area(s) 2 ity of unit/gram 00:00: (two) [place] powder 00 times Medical daily. Branch nystatin 2022-0 Yes [id number] Apply to U nivers 100,000 5-17 area(s) 2 ity of unit/gram 00:00: (two) [place] powder 00 times Medical daily. Branch nystatin 2022-0 Yes [id number] Apply to U nivers 100,000 5-17 area(s) 2 ity of unit/gram 00:00: (two) [place] powder 00 times Medical daily. Branch nystatin 2022-0 Yes [id number] Apply to U nivers 100,000 5-17 area(s) 2 ity of unit/gram 00:00: (two) [place] powder 00 times Medical daily. Branch nystatin 2022-0 Yes [id number] Apply to U nivers 100,000 5-17 area(s) 2 ity of unit/gram 00:00: (two) [place] powder 00 times Medical daily. Branch nystatin 2022-0 Yes [id number] Apply to U nivers 100,000 5-17 area(s) 2 ity of unit/gram 00:00: (two) [place] powder 00 times Medical daily. Branch nystatin 2022-0 Yes [id number] Apply to U nivers 100,000 5-17 area(s) 2 ity of unit/gram 00:00: (two) [place] powder 00 times Medical daily. Branch nystatin 2022-0 Yes [id number] Apply to U nivers 100,000 5-17 area(s) 2 ity of unit/gram 00:00: (two) [place] powder 00 times Medical daily. Branch nystatin 2022-0 Yes [id number] Apply to U nivers 100,000 5-17 area(s) 2 ity of unit/gram 00:00: (two) [place] powder 00 times Medical daily. Branch nystatin 2022-0 Yes [id number] Apply to U nivers 100,000 5-17 area(s) 2 ity of unit/gram 00:00: (two) [place] powder 00 times Medical daily. Branch ondansetron 0 2021- No [id number] 4mg Take 5 mL [facility] (ZOFRAN) 4 5-17 10-12 by mouth 2 it y of mg/5 mL 00:00: 00:00 (two) [place] solution 00 :00 times Medical daily as Branch needed for Nausea and Vomiting (N/V) or N/V unresponsi ve to [facility]. PRO COMFORT 2021-0 Yes USE TO [facility] ers ALCOHOL 5-16 TEST BLOOD ity of PADS PadM 00:00: GLUCOSE [place] 00 TWICE Medical DAILY Branch OT 0 Yes USE TO [facility] ULTRA/FASTT 5-16 CALIBRATE ity of RACK 00:00: METER [place] CONTROL 00 Medical [facility] Branch ONETOUCH 0 Yes USE TO [facility] ULTRA2 5-16 TEST BLOOD ity of METER Misc 00:00: GLUCOSE [place] 00 [facility] PRO COMFORT 2021-0 Yes USE TO [facility] ers ALCOHOL 5-16 TEST BLOOD ity of PADS PadM 00:00: GLUCOSE [place] 00 TWICE Medical DAILY Branch OT 2021-0 Yes USE TO [facility] ULTRA/FASTT 5-16 CALIBRATE ity of RACK 00:00: METER [place] CONTROL 00 Medical [facility] Branch ONETOUCH 2021-0 Yes USE TO [facility] ULTRA2 5-16 TEST BLOOD ity of METER Misc 00:00: GLUCOSE [place] [facility] PRO COMFORT 2021-0 Yes USE TO Univ ers ALCOHOL 5-16 TEST BLOOD ity of PADS PadM 00:00: GLUCOSE [place] 00 TWICE Medical DAILY Branch OT 2021-0 Yes USE TO [facility] ULTRA/FASTT 5-16 CALIBRATE ity of RACK 00:00: METER [place] CONTROL 00 Medical [facility] Branch ONETOUCH 2021-0 Yes USE TO [facility] ULTRA2 5-16 TEST BLOOD ity of METER Misc 00:00: GLUCOSE [place] [facility] PRO COMFORT 2021-0 Yes USE TO [facility] ers ALCOHOL 5-16 TEST BLOOD ity of PADS PadM 00:00: GLUCOSE [place] 00 TWICE Medical DAILY Branch OT 2021-0 Yes USE TO [facility] ULTRA/FASTT 5-16 CALIBRATE ity of RACK 00:00: METER [place] CONTROL 00 Medical [facility] Branch ONETOUCH 2021-0 Yes USE TO [facility] ULTRA2 5-16 TEST BLOOD ity of METER Misc 00:00: GLUCOSE [place] 00 [facility] PRO COMFORT 2022-0 Yes USE TO [facility] ers ALCOHOL 5-16 TEST BLOOD ity of PADS PadM 00:00: GLUCOSE [place] 00 TWICE Medical DAILY Branch OT 2-0 Yes USE TO [facility] ULTRA/FASTT 5-16 CALIBRATE ity of RACK 00:00: METER [place] CONTROL 00 Medical [facility] ONETOUCH 2-0 Yes USE TO [facility] ULTRA2 5-16 TEST BLOOD ity of METER Misc 00:00: GLUCOSE [place] [facility] PRO COMFORT 2-0 Yes USE TO [facility] ers ALCOHOL 5-16 TEST BLOOD ity of PADS PadM 00:00: GLUCOSE [place] 00 TWICE Medical DAILY Branch OT 2-0 Yes USE TO [facility] ULTRA/FASTT 5-16 CALIBRATE ity of RACK 00:00: METER [place] CONTROL 00 Medical [facility] Branch ONETOUCH 2-0 Yes USE TO [facility] ULTRA2 5-16 TEST BLOOD ity of METER Misc 00:00: GLUCOSE [place] [facility] PRO COMFORT 2-0 Yes USE TO [facility] ers ALCOHOL 5-16 TEST BLOOD ity of PADS PadM 00:00: GLUCOSE [place] 00 TWICE Medical DAILY Branch OT 2-0 Yes USE TO [facility] ULTRA/FASTT 5-16 CALIBRATE ity of RACK 00:00: METER [place] CONTROL 00 Medical [facility] Branch ONETOUCH 2-0 Yes USE TO [facility] ULTRA2 5-16 TEST BLOOD ity of METER Misc 00:00: GLUCOSE [place] [facility] PRO COMFORT 2-0 Yes USE TO Univ ers ALCOHOL 5-16 TEST BLOOD ity of PADS PadM 00:00: GLUCOSE [place] 00 TWICE Medical DAILY Branch OT 2-0 Yes USE TO [facility] ULTRA/FASTT 5-16 CALIBRATE ity of RACK 00:00: METER [place] CONTROL 00 Medical [facility] ONETOUCH 2-0 Yes USE TO [facility] ULTRA2 5-16 TEST BLOOD ity of METER Misc 00:00: [place]SE [place] 00 [facility] PRO COMFORT 2-0 Yes USE TO [facility] ers ALCOHOL 5-16 TEST BLOOD ity of PADS PadM 00:00: GLUCOSE [place] 00 TWICE Medical DAILY Branch OT 2-0 Yes USE TO [facility] ULTRA/FASTT 5-16 CALIBRATE ity of RACK 00:00: METER [place] CONTROL 00 Medical [facility] ONETOUCH 2-0 Yes USE TO [facility] ULTRA2 5-16 TEST BLOOD ity of METER Misc 00:00: [place]SE [place] [facility] PRO COMFORT 2-0 Yes USE TO [facility] ers ALCOHOL 5-16 TEST BLOOD ity of PADS PadM 00:00: GLUCOSE [place] 00 TWICE Medical DAILY Branch OT 2-0 Yes USE TO [facility] ULTRA/FASTT 5-16 CALIBRATE ity of RACK 00:00: METER [place] CONTROL 00 Medical [facility] ONETOUCH 2-0 Yes USE TO [facility] ULTRA2 5-16 TEST BLOOD ity of METER Misc 00:00: [place]SE [place] [facility] PRO COMFORT 2-0 Yes USE TO [facility] ALCOHOL 5-16 TEST BLOOD ity of PADS PadM 00:00: GLUCOSE [place] 00 TWICE Medical DAILY [facility] OT 2021-0 Yes USE TO [facility] ULTRA/FASTT 5-16 CALIBRATE ity of RACK 00:00: METER [place] CONTROL 00 Medical [facility] ONETOUCH 2021-0 Yes USE TO [facility] ULTRA2 5-16 TEST BLOOD ity of METER Misc 00:00: [place]SE [place] 00 [facility] PRO COMFORT 2-0 Yes USE TO [facility] ALCOHOL 5-16 TEST BLOOD ity of PADS PadM 00:00: GLUCOSE [place] 00 TWICE Medical DAILY [facility] OT 2021-0 Yes USE TO [facility] ULTRA/FASTT 5-16 CALIBRATE ity of RACK 00:00: METER [place] CONTROL 00 [facility] ONETOUCH 2021-0 Yes USE TO [facility] ULTRA2 5-16 TEST BLOOD ity of METER Misc 00:00: [place]SE [place] 00 [facility] PRO COMFORT 2-0 Yes USE TO [facility] ALCOHOL 5-16 TEST BLOOD ity of PADS PadM 00:00: GLUCOSE [place] 00 TWICE Medical DAILY [facility] OT 2-0 Yes USE TO [facility] ULTRA/FASTT 5-16 CALIBRATE ity of RACK 00:00: METER [place] CONTROL 00 Medical [facility] ONETOUCH 2-0 Yes USE TO [facility] ULTRA2 5-16 TEST BLOOD ity of METER Misc 00:00: [place]SE [place] 00 [facility] PRO COMFORT 2-0 Yes USE TO [facility] ALCOHOL 5-16 TEST BLOOD ity of PADS PadM 00:00: GLUCOSE [place] 00 TWICE Medical DAILY Branch OT 2-0 Yes USE TO [facility] ULTRA/FASTT 5-16 CALIBRATE ity of RACK 00:00: METER [place] CONTROL 00 [facility] ONETOUCH 2-0 Yes USE TO [facility] ULTRA2 5-16 TEST BLOOD ity of METER Misc 00:00: [place]SE [place] 00 [facility] PRO COMFORT 2-0 Yes USE TO [facility] ers ALCOHOL 5-16 TEST BLOOD ity of PADS PadM 00:00: GLUCOSE [place] 00 TWICE Medical DAILY Branch OT 2-0 Yes USE TO [facility] ULTRA/FASTT 5-16 CALIBRATE ity of RACK 00:00: METER [place] CONTROL 00 Medical [facility] ONETOUCH 2-0 Yes USE TO [facility] ULTRA2 5-16 TEST BLOOD ity of METER Misc 00:00: [place]SE [place] 00 [facility] PRO COMFORT 2-0 Yes USE TO [facility] ers ALCOHOL 5-16 TEST BLOOD ity of PADS PadM 00:00: GLUCOSE [place] 00 TWICE Medical DAILY Branch OT 2-0 Yes USE TO [facility] ULTRA/FASTT 5-16 CALIBRATE ity of RACK 00:00: METER [place] CONTROL 00 [facility] ONETOUCH 2021-0 Yes USE TO [facility] ULTRA2 5-16 TEST BLOOD ity of METER Misc 00:00: [place]SE [place] 00 [facility] PRO COMFORT 2-0 Yes USE TO [facility] ers ALCOHOL 5-16 TEST BLOOD ity of PADS PadM 00:00: GLUCOSE [place] 00 TWICE Medical DAILY Branch OT 2-0 Yes USE TO [facility] ULTRA/FASTT 5-16 CALIBRATE ity of RACK 00:00: METER [place] CONTROL 00 [facility] ONETOUCH 2-0 Yes USE TO [facility] ULTRA2 5-16 TEST BLOOD ity of METER Misc 00:00: [place]SE [place] 00 [facility] PRO COMFORT 2-0 Yes USE TO [facility] ers ALCOHOL 5-16 TEST BLOOD ity of PADS PadM 00:00: GLUCOSE [place] 00 TWICE Medical DAILY Branch OT 2-0 Yes USE TO [facility] ULTRA/FASTT 5-16 CALIBRATE ity of RACK 00:00: METER [place] CONTROL 00 Medical [facility] ONETOUCH 2-0 Yes USE TO [facility] ULTRA2 5-16 TEST BLOOD ity of METER Misc 00:00: [place]SE [place] 00 [facility] PRO COMFORT 2-0 Yes USE TO [facility] ers ALCOHOL 5-16 TEST BLOOD ity of PADS PadM 00:00: GLUCOSE [place] 00 TWICE Medical DAILY Branch OT 2-0 Yes USE TO [facility] ULTRA/FASTT 5-16 CALIBRATE ity of RACK 00:00: METER [place] CONTROL 00 Medical [facility] ONETOUCH 2-0 Yes USE TO [facility] ULTRA2 5-16 TEST BLOOD ity of METER Misc 00:00: [place]SE [place] 00 [facility] PRO COMFORT 2-0 Yes USE TO [facility] ers ALCOHOL 5-16 TEST BLOOD ity of PADS PadM 00:00: GLUCOSE [place] 00 TWICE Medical DAILY Branch OT 2-0 Yes USE TO [facility] ULTRA/FASTT 5-16 CALIBRATE ity of RACK 00:00: METER [place] CONTROL 00 Medical [facility] ONETOUCH 2-0 Yes USE TO [facility] ULTRA2 5-16 TEST BLOOD ity of METER Misc 00:00: [place]SE [place] 00 [facility] PRO COMFORT 2-0 Yes USE TO [facility] ALCOHOL 5-16 TEST BLOOD ity of PADS PadM 00:00: GLUCOSE [place] 00 TWICE Medical DAILY [facility] OT 2021-0 Yes USE TO [facility] ULTRA/FASTT 5-16 CALIBRATE ity of RACK 00:00: METER [place] CONTROL 00 Medical [facility] ONETOUCH 2-0 Yes USE TO [facility] ULTRA2 5-16 TEST BLOOD ity of METER Misc 00:00: [place]SE [place] 00 [facility] PRO COMFORT 2-0 Yes USE TO [facility] ers ALCOHOL 5-16 TEST BLOOD ity of PADS PadM 00:00: GLUCOSE [place] 00 TWICE Medical DAILY [facility] OT 2-0 Yes USE TO [facility] ULTRA/FASTT 5-16 CALIBRATE ity of RACK 00:00: METER [place] CONTROL 00 [facility] ONETOUCH 2-0 Yes USE TO [facility] ULTRA2 5-16 TEST BLOOD ity of METER Misc 00:00: [place]SE [place] 00 [facility] PRO COMFORT 2-0 Yes USE TO [facility] ers ALCOHOL 5-16 TEST BLOOD ity of PADS PadM 00:00: GLUCOSE [place] 00 TWICE Medical DAILY [facility] OT 2-0 Yes USE TO [facility] ULTRA/FASTT 5-16 CALIBRATE ity of RACK 00:00: METER [place] CONTROL 00 Medical [facility] ONETOUCH 2-0 Yes USE TO [facility] ULTRA2 5-16 TEST BLOOD ity of METER Misc 00:00: [place]SE [place] 00 [facility] PRO COMFORT 2-0 Yes USE TO [facility] ers ALCOHOL 5-16 TEST BLOOD ity of PADS PadM 00:00: GLUCOSE [place] 00 TWICE Medical DAILY Branch OT 2-0 Yes USE TO [facility] ULTRA/FASTT 5-16 CALIBRATE ity of RACK 00:00: METER [place] CONTROL 00 Medical [facility] ONETOUCH 2-0 Yes USE TO [facility] ULTRA2 5-16 TEST BLOOD ity of METER Misc 00:00: [place]SE [place] 00 [facility] PRO COMFORT 2-0 Yes USE TO [facility] ALCOHOL 5-16 TEST BLOOD ity of PADS PadM 00:00: GLUCOSE [place] 00 TWICE Medical DAILY Branch OT 2021-0 Yes USE TO [facility] ULTRA/FASTT 5-16 CALIBRATE ity of RACK 00:00: METER [place] CONTROL 00 Medical [facility] ONETOUCH 2021-0 Yes USE TO [facility] ULTRA2 5-16 TEST BLOOD ity of METER Misc 00:00: GLU[place]SE [place] 00 [facility] PRO COMFORT 2-0 Yes USE TO [facility] ALCOHOL 5-16 TEST BLOOD ity of PADS PadM 00:00: GLUCOSE [place] 00 TWICE Medical DAILY [facility] OT 2021-0 Yes USE TO [facility] ULTRA/FASTT 5-16 CALIBRATE ity of RACK 00:00: METER [place] CONTROL 00 Medical [facility] ONETOUCH 2021-0 Yes USE TO [facility] ULTRA2 5-16 TEST BLOOD ity of METER Misc 00:00: [place]SE [place] 00 [facility] PRO COMFORT 2-0 Yes USE TO [facility] ers ALCOHOL 5-16 TEST BLOOD ity of PADS PadM 00:00: GLUCOSE [place] 00 TWICE Medical DAILY Branch OT 2021-0 Yes USE TO [facility] ULTRA/FASTT 5-16 CALIBRATE ity of RACK 00:00: METER [place] CONTROL 00 Medical [facility] ONETOUCH 2021-0 Yes USE TO [facility] ULTRA2 5-16 TEST BLOOD ity of METER Misc 00:00: [place]SE [place] 00 [facility] PRO COMFORT 2-0 Yes USE TO [facility] ALCOHOL 5-16 TEST BLOOD ity of PADS PadM 00:00: GLUCOSE [place] 00 TWICE Medical DAILY Branch OT 2-0 Yes USE TO [facility] ULTRA/FASTT 5-16 CALIBRATE ity of RACK 00:00: METER [place] CONTROL 00 Medical [facility] ONETOUCH 2-0 Yes USE TO [facility] ULTRA2 5-16 TEST BLOOD ity of METER Misc 00:00: [place]SE [place] 00 [facility] PRO COMFORT 2-0 Yes USE TO [facility] ers ALCOHOL 5-16 TEST BLOOD ity of PADS PadM 00:00: GLUCOSE [place] 00 TWICE Medical DAILY Branch OT 2-0 Yes USE TO [facility] ULTRA/FASTT 5-16 CALIBRATE ity of RACK 00:00: METER [place] CONTROL 00 [facility] ONETOUCH 2-0 Yes USE TO [facility] ULTRA2 5-16 TEST BLOOD ity of METER Misc 00:00: [place]SE [place] 00 [facility] PRO COMFORT 2-0 Yes USE TO [facility] ers ALCOHOL 5-16 TEST BLOOD ity of PADS PadM 00:00: GLUCOSE [place] 00 TWICE Medical DAILY Branch OT 2-0 Yes USE TO [facility] ULTRA/FASTT 5-16 CALIBRATE ity of RACK 00:00: METER [place] CONTROL 00 Medical [facility] ONETOUCH 2021-0 Yes USE TO [facility] ULTRA2 5-16 TEST BLOOD ity of METER Misc 00:00: GLU[place]SE [place] 00 [facility] PRO COMFORT 2-0 Yes USE TO [facility] ers ALCOHOL 5-16 TEST BLOOD ity of PADS PadM 00:00: GLUCOSE [place] 00 TWICE Medical DAILY Branch OT 2-0 Yes USE TO [facility] ULTRA/FASTT 5-16 CALIBRATE ity of RACK 00:00: METER [place] CONTROL 00 Medical [facility] ONETOUCH 2-0 Yes USE TO [facility] ULTRA2 5-16 TEST BLOOD ity of METER Misc 00:00: GLU[place]SE [place] 00 [facility] PRO COMFORT 2-0 Yes USE TO [facility] ers ALCOHOL 5-16 TEST BLOOD ity of PADS PadM 00:00: GLUCOSE [place] 00 TWICE Medical DAILY Branch OT 2-0 Yes USE TO [facility] ULTRA/FASTT 5-16 CALIBRATE ity of RACK 00:00: METER [place] CONTROL 00 Medical [facility] ONETOUCH 2-0 Yes USE TO [facility] ULTRA2 5-16 TEST BLOOD ity of METER Misc 00:00: GLU[place]SE [place] 00 [facility] PRO COMFORT 2-0 Yes USE TO [facility] ers ALCOHOL 5-16 TEST BLOOD ity of PADS PadM 00:00: GLUCOSE [place] 00 TWICE Medical DAILY Branch OT 2-0 Yes USE TO [facility] ULTRA/FASTT 5-16 CALIBRATE ity of RACK 00:00: METER [place] CONTROL 00 Medical [facility] ONETOUCH 2-0 Yes USE TO [facility] ULTRA2 5-16 TEST BLOOD ity of METER Misc 00:00: GLUCOSE [place] 00 [facility] PRO COMFORT 2022-0 Yes USE TO [facility] ers ALCOHOL 5-16 TEST BLOOD ity of PADS PadM 00:00: GLUCOSE [place] 00 TWICE Medical DAILY Branch OT 2021-0 Yes USE TO [facility] ULTRA/FASTT 5-16 CALIBRATE ity of RACK 00:00: METER [place] CONTROL 00 Medical [facility] ONETOUCH 2021-0 Yes USE TO [facility] ULTRA2 5-16 TEST BLOOD ity of METER Misc 00:00: GLU[place]SE [place] 00 [facility] PRO COMFORT 2-0 Yes USE TO [facility] ers ALCOHOL 5-16 TEST BLOOD ity of PADS PadM 00:00: GLUCOSE [place] 00 TWICE Medical DAILY Branch OT 2021-0 Yes USE TO [facility] ULTRA/FASTT 5-16 CALIBRATE ity of RACK 00:00: METER [place] CONTROL 00 [facility] ONETOUCH 2021-0 Yes USE TO [facility] ULTRA2 5-16 TEST BLOOD ity of METER Misc 00:00: GLUCOSE [place] 00 [facility] PRO COMFORT 2021-0 Yes USE TO [facility] ers ALCOHOL 5-16 TEST BLOOD ity of PADS PadM 00:00: GLUCOSE [place] 00 TWICE Medical DAILY Branch OT 2021-0 Yes USE TO [facility] ULTRA/FASTT 5-16 CALIBRATE ity of RACK 00:00: METER [place] CONTROL 00 [facility] ONETOUCH 2021-0 Yes USE TO [facility] ULTRA2 5-16 TEST BLOOD ity of METER Misc 00:00: [place] [facility] PRO COMFORT 2-0 Yes USE TO [facility] ers ALCOHOL 5-16 TEST BLOOD ity of PADS PadM 00:00: GLUCOSE [place] 00 TWICE Medical DAILY Branch OT 2021-0 Yes USE TO [facility] ULTRA/FASTT 5-16 CALIBRATE ity of RACK 00:00: METER [place] CONTROL 00 Medical [facility] ONETOUCH 2-0 Yes USE TO [facility] ULTRA2 5-16 TEST BLOOD ity of METER Misc 00:00: GLUCOSE [place] 00 [facility] PRO COMFORT 2-0 Yes USE TO [facility] ers ALCOHOL 5-16 TEST BLOOD ity of PADS PadM 00:00: GLUCOSE [place] 00 TWICE Medical DAILY Branch OT 2-0 Yes USE TO [facility] ULTRA/FASTT 5-16 CALIBRATE ity of RACK 00:00: METER [place] CONTROL 00 [facility] ONETOUCH 2-0 Yes USE TO [facility] ULTRA2 5-16 TEST BLOOD ity of METER Misc 00:00: GLUCOSE [place] 00 [facility] PRO COMFORT 2-0 Yes USE TO [facility] ers ALCOHOL 5-16 TEST BLOOD ity of PADS PadM 00:00: GLUCOSE [place] 00 TWICE Medical DAILY Branch OT 2-0 Yes USE TO [facility] ULTRA/FASTT 5-16 CALIBRATE ity of RACK 00:00: METER [place] CONTROL 00 Medical [facility] ONETOUCH 2-0 Yes USE TO [facility] ULTRA2 5-16 TEST BLOOD ity of METER Misc 00:00: [place]UCOSE [place] 00 [facility] PRO COMFORT 2-0 Yes USE TO Univ ers ALCOHOL 5-16 TEST BLOOD ity of PADS PadM 00:00: GLUCOSE [place] 00 TWICE Medical DAILY Branch OT 2021-0 Yes USE TO [facility] ULTRA/FASTT 5-16 CALIBRATE ity of RACK 00:00: METER [place] CONTROL 00 Medical [facility] ONETOUCH 2021-0 Yes USE TO [facility] ULTRA2 5-16 TEST BLOOD ity of METER Misc 00:00: GLUCOSE [place] 00 [facility] PRO COMFORT 2-0 Yes USE TO [facility] ers ALCOHOL 5-16 TEST BLOOD ity of PADS PadM 00:00: GLUCOSE [place] 00 TWICE Medical DAILY Branch OT 2-0 Yes USE TO [facility] ULTRA/FASTT 5-16 CALIBRATE ity of RACK 00:00: METER [place] CONTROL 00 Medical [facility] ONETOUCH 2-0 Yes USE TO [facility] ULTRA2 5-16 TEST BLOOD ity of METER Misc 00:00: [place] [facility] PRO COMFORT 2-0 Yes USE TO Univ ers ALCOHOL 5-16 TEST BLOOD ity of PADS PadM 00:00: GLUCOSE [place] 00 TWICE Medical DAILY Branch OT 2-0 Yes USE TO [facility] ULTRA/FASTT 5-16 CALIBRATE ity of RACK 00:00: METER [place] CONTROL 00 Medical [facility] ONETOUCH 2-0 Yes USE TO [facility] ULTRA2 5-16 TEST BLOOD ity of METER Misc 00:00: GLUCOSE [place] 00 [facility] PRO COMFORT 2-0 Yes USE TO Univ ers ALCOHOL 5-16 TEST BLOOD ity of PADS PadM 00:00: GLUCOSE [place] 00 TWICE Medical DAILY Branch OT 2-0 Yes USE TO [facility] ULTRA/FASTT 5-16 CALIBRATE ity of RACK 00:00: METER [place] CONTROL 00 Medical [facility] ONETOUCH 2-0 Yes USE TO [facility] ULTRA2 5-16 TEST BLOOD ity of METER Misc 00:00: GLUCOSE [place] 00 [facility] PRO COMFORT 2-0 Yes USE TO Univ ers ALCOHOL 5-16 TEST BLOOD ity of PADS PadM 00:00: GLUCOSE [place] 00 TWICE Medical DAILY Branch OT 2-0 Yes USE TO [facility] ULTRA/FASTT 5-16 CALIBRATE ity of RACK 00:00: METER [place] CONTROL 00 [facility] ONETOUCH 2021-0 Yes USE TO [facility] ULTRA2 5-16 TEST BLOOD ity of METER Misc 00:00: GLUCOSE [place] 00 [facility] PRO COMFORT 2-0 Yes USE TO Univ ers ALCOHOL 5-16 TEST BLOOD ity of PADS PadM 00:00: GLUCOSE [place] 00 TWICE Medical DAILY Branch OT 2021-0 Yes USE TO [facility] ULTRA/FASTT 5-16 CALIBRATE ity of RACK 00:00: METER [place] CONTROL 00 [facility] ONETOUCH 2021-0 Yes USE TO [facility] ULTRA2 5-16 TEST BLOOD ity of METER Misc 00:00: GLUCOSE [place] 00 [facility] PRO COMFORT 2-0 Yes USE TO Univ ers ALCOHOL 5-16 TEST BLOOD ity of PADS PadM 00:00: GLUCOSE [place] 00 TWICE Medical DAILY Branch OT 2021-0 Yes USE TO [facility] ULTRA/FASTT 5-16 CALIBRATE ity of RACK 00:00: METER [place] CONTROL 00 [facility] ONETOUCH 2021-0 Yes USE TO [facility] ULTRA2 5-16 TEST BLOOD ity of METER Misc 00:00: GLUCOSE [place] 00 [facility] PRO COMFORT 2-0 Yes USE TO Univ ers ALCOHOL 5-16 TEST BLOOD ity of PADS PadM 00:00: GLUCOSE [place] 00 TWICE Medical DAILY Branch OT 2-0 Yes USE TO [facility] ULTRA/FASTT 5-16 CALIBRATE ity of RACK 00:00: METER [place] CONTROL 00 [facility] ONETOUCH 2021-0 Yes USE TO [facility] ULTRA2 5-16 TEST BLOOD ity of METER Misc 00:00: GLUCOSE [place] 00 [facility] PRO COMFORT 2-0 Yes USE TO Univ ers ALCOHOL 5-16 TEST BLOOD ity of PADS PadM 00:00: GLUCOSE [place] 00 TWICE Medical DAILY Branch OT 2-0 Yes USE TO [facility] ULTRA/FASTT 5-16 CALIBRATE ity of RACK 00:00: METER [place] CONTROL 00 [facility] ONETOUCH 2-0 Yes USE TO [facility] ULTRA2 5-16 TEST BLOOD ity of METER Misc 00:00: GLUCOSE [place] 00 [facility] PRO COMFORT 2021-0 Yes USE TO Univ ers ALCOHOL 5-16 TEST BLOOD ity of PADS PadM 00:00: GLUCOSE [place] 00 TWICE Medical DAILY Branch OT 2021-0 Yes USE TO [facility] ULTRA/FASTT 5-16 CALIBRATE ity of RACK 00:00: METER [place] CONTROL 00 Medical [facility] ONETOUCH 2021-0 Yes USE TO [facility] ULTRA2 5-16 TEST BLOOD ity of METER Misc 00:00: GLUCOSE [place] 00 [facility] PRO COMFORT 2021-0 Yes USE TO Univ ers ALCOHOL 5-16 TEST BLOOD ity of PADS PadM 00:00: GLUCOSE [place] 00 TWICE Medical DAILY Branch OT 2021-0 Yes USE TO [facility] ULTRA/FASTT 5-16 CALIBRATE ity of RACK 00:00: METER [place] CONTROL 00 [facility] ONETOUCH 2021-0 Yes USE TO [facility] ULTRA2 5-16 TEST BLOOD ity of METER Misc 00:00: GLUCOSE [place] 00 [facility] OT 2-0 Yes USE TO [facility] ULTRA/FASTT 5-16 CALIBRATE ity of RACK 00:00: METER [place] CONTROL 00 Medical [facility] ONETOUCH 2021-0 Yes USE TO [facility] ULTRA2 5-16 TEST BLOOD ity of METER Misc 00:00: GLUCOSE [place] 00 [facility] OT 2021-0 Yes USE TO [facility] ULTRA/FASTT 5-16 CALIBRATE ity of RACK 00:00: METER [place] CONTROL 00 Medical [facility] ONETOUCH 2021-0 Yes USE TO [facility] ULTRA2 5-16 TEST BLOOD ity of METER Misc 00:00: GLUCOSE [place] 00 [facility] OT 2-0 Yes USE TO [facility] ULTRA/FASTT 5-16 CALIBRATE ity of RACK 00:00: METER [place] CONTROL 00 Medical [facility] ONETOUCH 2021-0 Yes USE TO [facility] ULTRA2 5-16 TEST BLOOD ity of METER Misc 00:00: GLUCOSE [place] 00 [facility] OT 2-0 Yes USE TO [facility] ULTRA/FASTT 5-16 CALIBRATE ity of RACK 00:00: METER [place] CONTROL 00 [facility] ONETOUCH 2-0 Yes USE TO [facility] ULTRA2 5-16 TEST BLOOD ity of METER Misc 00:00: GLUCOSE [place] 00 [facility] OT 2021-0 Yes USE TO [facility] ULTRA/FASTT 5-16 CALIBRATE ity of RACK 00:00: METER [place] CONTROL 00 [facility] ONETOUCH 2021-0 Yes USE TO [facility] ULTRA2 5-16 TEST BLOOD ity of METER Misc 00:00: [place] [facility] OT 2021-0 Yes USE TO [facility] ULTRA/FASTT 5-16 CALIBRATE ity of RACK 00:00: METER [place] CONTROL 00 [facility] ONETOUCH 2021-0 Yes USE TO [facility] ULTRA2 5-16 TEST BLOOD ity of METER Misc 00:00: [place] [facility] OT 2021-0 Yes USE TO [facility] ULTRA/FASTT 5-16 CALIBRATE ity of RACK 00:00: METER [place] CONTROL 00 [facility] ONETOUCH 2021-0 Yes USE TO [facility] ULTRA2 5-16 TEST BLOOD ity of METER Misc 00:00: [place] [place] [facility] OT 2021-0 Yes USE TO [facility] ULTRA/FASTT 5-16 CALIBRATE ity of RACK 00:00: METER [place] CONTROL 00 [facility] ONETOUCH 2021-0 Yes USE TO [facility] ULTRA2 5-16 TEST BLOOD ity of METER Misc 00:00: GLUCOSE [place] 00 [facility] OT 2021-0 Yes USE TO [facility] ULTRA/FASTT 5-16 CALIBRATE ity of RACK 00:00: METER [place] CONTROL 00 [facility] ONETOUCH 2021-0 Yes USE TO [facility] ULTRA2 5-16 TEST BLOOD ity of METER Misc 00:00: [place]SE [place] [facility] OT 2021-0 Yes USE TO [facility] ULTRA/FASTT 5-16 CALIBRATE ity of RACK 00:00: METER [place] CONTROL 00 [facility] ONETOUCH 2021-0 Yes USE TO [facility] ULTRA2 5-16 TEST BLOOD ity of METER Misc 00:00: GLUCOSE [place] 00 [facility] OT 2021-0 Yes USE TO [facility] ULTRA/FASTT 5-16 CALIBRATE ity of RACK 00:00: METER [place] CONTROL 00 [facility] ONETOUCH 2021-0 Yes USE TO [facility] ULTRA2 5-16 TEST BLOOD ity of METER Misc 00:00: GLUCOSE [place] 00 [facility] OT 2021-0 Yes USE TO [facility] ULTRA/FASTT 5-16 CALIBRATE ity of RACK 00:00: METER [place] CONTROL 00 [facility] ONETOUCH 2021-0 Yes USE TO [facility] ULTRA2 5-16 TEST BLOOD ity of METER Misc 00:00: [place] [place] [facility] OT 2021-0 Yes USE TO [facility] ULTRA/FASTT 5-16 CALIBRATE ity of RACK 00:00: METER [place] CONTROL 00 [facility] ONETOUCH 2021-0 Yes USE TO [facility] ULTRA2 5-16 TEST BLOOD ity of METER Misc 00:00: [place] [place] [facility] OT 2021-0 Yes USE TO [facility] ULTRA/FASTT 5-16 CALIBRATE ity of RACK 00:00: METER [place] CONTROL [facility] ONETOUCH 2021-0 Yes USE TO [facility] ULTRA2 5-16 TEST BLOOD ity of METER Misc 00:00: [place]SE [place] [facility] OT 2021-0 Yes USE TO [facility] ULTRA/FASTT 5-16 CALIBRATE ity of RACK 00:00: METER [place] CONTROL 00 [facility] ONETOUCH 2021-0 Yes USE TO [facility] ULTRA2 5-16 TEST BLOOD ity of METER Misc 00:00: [place] [place] [facility] OT 2021-0 Yes USE TO [facility] ULTRA/FASTT 5-16 CALIBRATE ity of RACK 00:00: METER [place] CONTROL 00 [facility] ONETOUCH 2021-0 Yes USE TO [facility] ULTRA2 5-16 TEST BLOOD ity of METER Misc 00:00: [place]SE [place] [facility] OT 2021-0 Yes USE TO [facility] ULTRA/FASTT 5-16 CALIBRATE ity of RACK 00:00: METER [place] CONTROL 00 [facility] ONETOUCH 2021-0 Yes USE TO [facility] ULTRA2 5-16 TEST BLOOD ity of METER Misc 00:00: [place]SE [place] [facility] OT 2021-0 Yes USE TO [facility] ULTRA/FASTT 5-16 CALIBRATE ity of RACK 00:00: METER [place] CONTROL 00 [facility] ONETOUCH 2021-0 Yes USE TO [facility] ULTRA2 5-16 TEST BLOOD ity of METER Misc 00:00: [place] [place] [facility] OT 2-0 Yes USE TO [facility] ULTRA/FASTT 5-16 CALIBRATE ity of RACK 00:00: METER [place] CONTROL 00 [facility] ONETOUCH 2021-0 Yes USE TO [facility] ULTRA2 5-16 TEST BLOOD ity of METER Misc 00:00: GLU[place]SE [place] 00 [facility] OT 2021-0 Yes USE TO [facility] ULTRA/FASTT 5-16 CALIBRATE ity of RACK 00:00: METER [place] CONTROL 00 [facility] ONETOUCH 2021-0 Yes USE TO [facility] ULTRA2 5-16 TEST BLOOD ity of METER Misc 00:00: GLU[place]SE [place] 00 [facility] OT 2021-0 Yes USE TO [facility] ULTRA/FASTT 5-16 CALIBRATE ity of RACK 00:00: METER [place] CONTROL 00 [facility] ONETOUCH 2021-0 Yes USE TO [facility] ULTRA2 5-16 TEST BLOOD ity of METER Misc 00:00: GLU[place]SE [place] 00 [facility] OT 2021-0 Yes USE TO [facility] ULTRA/FASTT 5-16 CALIBRATE ity of RACK 00:00: METER [place] CONTROL 00 [facility] ONETOUCH 2021-0 Yes USE TO [facility] ULTRA2 5-16 TEST BLOOD ity of METER Misc 00:00: GLUCOSE [place] 00 [facility] OT 2021-0 Yes USE TO [facility] ULTRA/FASTT 5-16 CALIBRATE ity of RACK 00:00: METER [place] CONTROL 00 [facility] ONETOUCH 2021-0 Yes USE TO [facility] ULTRA2 5-16 TEST BLOOD ity of METER Misc 00:00: GLU[place]SE [place] 00 [facility] OT 2021-0 Yes USE TO [facility] ULTRA/FASTT 5-16 CALIBRATE ity of RACK 00:00: METER [place] CONTROL 00 [facility] ONETOUCH 2021-0 Yes USE TO [facility] ULTRA2 5-16 TEST BLOOD ity of METER Misc 00:00: [place]SE [place] 00 [facility] OT 2021-0 Yes USE TO [facility] ULTRA/FASTT 5-16 CALIBRATE ity of RACK 00:00: METER [place] CONTROL 00 [facility] ONETOUCH 2021-0 Yes USE TO [facility] ULTRA2 5-16 TEST BLOOD ity of METER Misc 00:00: GLUCOSE [place] 00 [facility] OT 2021-0 Yes USE TO [facility] ULTRA/FASTT 5-16 CALIBRATE ity of RACK 00:00: METER [place] CONTROL 00 [facility] ONETOUCH 2-0 Yes USE TO [facility] ULTRA2 5-16 TEST BLOOD ity of METER Misc 00:00: [place]SE [place] 00 [facility] OT 2021-0 Yes USE TO [facility] ULTRA/FASTT 5-16 CALIBRATE ity of RACK 00:00: METER [place] CONTROL [facility] ONETOUCH 2021-0 Yes USE TO [facility] ULTRA2 5-16 TEST BLOOD ity of METER Misc 00:00: [place] [facility] OT 2021-0 Yes USE TO [facility] ULTRA/FASTT 5-16 CALIBRATE ity of RACK 00:00: METER [place] CONTROL 00 [facility] ONETOUCH 2021-0 Yes USE TO [facility] ULTRA2 5-16 TEST BLOOD ity of METER Misc 00:00: GLU[place]SE [place] 00 [facility] OT 2021-0 Yes USE TO [facility] ULTRA/FASTT 5-16 CALIBRATE ity of RACK 00:00: METER [place] CONTROL 00 [facility] ONETOUCH 2021-0 Yes USE TO [facility] ULTRA2 5-16 TEST BLOOD ity of METER Misc 00:00: GLU[place]SE [place] [facility] OT 2021-0 Yes USE TO [facility] ULTRA/FASTT 5-16 CALIBRATE ity of RACK 00:00: METER [place] CONTROL 00 [facility] ONETOUCH 2021-0 Yes USE TO [facility] ULTRA2 5-16 TEST BLOOD ity of METER Misc 00:00: [place]SE [place] [facility] OT 2021-0 Yes USE TO [facility] ULTRA/FASTT 5-16 CALIBRATE ity of RACK 00:00: METER [place] CONTROL 00 [facility] ONETOUCH 2021-0 Yes USE TO [facility] ULTRA2 5-16 TEST BLOOD ity of METER Misc 00:00: [place]SE [place] [facility] OT 2-0 Yes USE TO [facility] ULTRA/FASTT 5-16 CALIBRATE ity of RACK 00:00: METER [place] CONTROL 00 [facility] ONETOUCH 2021-0 Yes USE TO [facility] ULTRA2 5-16 TEST BLOOD ity of METER Misc 00:00: [place]SE [place] [facility] OT 2-0 Yes USE TO [facility] ULTRA/FASTT 5-16 CALIBRATE ity of RACK 00:00: METER [place] CONTROL 00 [facility] ONETOUCH 2-0 Yes USE TO [facility] ULTRA2 5-16 TEST BLOOD ity of METER Misc 00:00[place] [facility] OT 2021-0 Yes USE TO [facility] ULTRA/FASTT 5-16 CALIBRATE ity of RACK 00:00: METER [place] CONTROL 00 [facility] ONETOUCH 2021-0 Yes USE TO Univers ULTRA2 5-16 TEST BLOOD ity of METER Misc 00:00: [place] [facility] OT 2021-0 Yes USE TO [facility] ULTRA/FASTT 5-16 CALIBRATE ity of RACK 00:00: METER [place] CONTROL 00 [facility] ONETOUCH 2021-0 Yes USE TO Univers ULTRA2 5-16 TEST BLOOD ity of METER Misc 00:00: [place] [facility] OT 2021-0 Yes USE TO [facility] ULTRA/FASTT 5-16 CALIBRATE ity of RACK 00:00: METER [place] CONTROL 00 [facility] ONETOUCH 2021-0 Yes USE TO Univers ULTRA2 5-16 TEST BLOOD ity of METER Misc 00:00: [place]SE [place] [facility] OT 2021-0 Yes USE TO [facility] ULTRA/FASTT 5-16 CALIBRATE ity of RACK 00:00: METER [place] CONTROL 00 [facility] ONETOUCH 2021-0 Yes USE TO Univers ULTRA2 5-16 TEST BLOOD ity of METER Misc 00:00: [place] [facility] OT 2021-0 Yes USE TO [facility] ULTRA/FASTT 5-16 CALIBRATE ity of RACK 00:00: METER [place] CONTROL 00 [facility] ONETOUCH 2021-0 Yes USE TO Univers ULTRA2 5-16 TEST BLOOD ity of METER Misc 00:00: [place] [facility] OT 2021-0 Yes USE TO [facility] ULTRA/FASTT 5-16 CALIBRATE ity of RACK 00:00: METER [place] CONTROL 00 [facility] ONETOUCH 2021-0 Yes USE TO Univers ULTRA2 5-16 TEST BLOOD ity of METER Misc 00:00: [place]SE [place] [facility] OT 2021-0 Yes USE TO [facility] ULTRA/FASTT 5-16 CALIBRATE ity of RACK 00:00: METER [place] CONTROL 00 [facility] ONETOUCH 2021-0 Yes USE TO Univers ULTRA2 5-16 TEST BLOOD ity of METER Misc 00:00: [place]SE [place] [facility] OT 2021-0 Yes USE TO [facility] ULTRA/FASTT 5-16 CALIBRATE ity of RACK 00:00: METER [place] CONTROL 00 [facility] ONETOUCH 2021-0 Yes USE TO Univers ULTRA2 5-16 TEST BLOOD ity of METER Misc 00:00: [place] [facility] OT 2021-0 Yes USE TO [facility] ULTRA/FASTT 5-16 CALIBRATE ity of RACK 00:00: METER [place] CONTROL 00 [facility] ONETOUCH 2021-0 Yes USE TO Univers ULTRA2 5-16 TEST BLOOD ity of METER Misc 00:00: [place] [facility] OT 2021-0 Yes USE TO [facility] ULTRA/FASTT 5-16 CALIBRATE ity of RACK 00:00: METER [place] CONTROL [facility] ONETOUCH 2021-0 Yes USE TO Univers ULTRA2 5-16 TEST BLOOD ity of METER Misc 00:00: [place] [facility] OT 2021-0 Yes USE TO [facility] ULTRA/FASTT 5-16 CALIBRATE ity of RACK 00:00: METER [place] CONTROL 00 [facility] ONETOUCH 2021-0 Yes USE TO Univers ULTRA2 5-16 TEST BLOOD ity of METER Misc 00:00: [place] [facility] OT 2021-0 Yes USE TO [facility] ULTRA/FASTT 5-16 CALIBRATE ity of RACK 00:00: METER [place] CONTROL 00 [facility] ONETOUCH 2021-0 Yes USE TO Univers ULTRA2 5-16 TEST BLOOD ity of METER Misc 00:00: [place] [facility] OT 2-0 Yes USE TO [facility] ULTRA/FASTT 5-16 CALIBRATE ity of RACK 00:00: METER [place] CONTROL 00 [facility] ONETOUCH 2021-0 Yes USE TO Univers ULTRA2 5-16 TEST BLOOD ity of METER Misc 00:00: [place] [facility] OT 2021-0 Yes USE TO [facility] ULTRA/FASTT 5-16 CALIBRATE ity of RACK 00:00: METER [place] CONTROL 00 [facility] ONETOUCH 2021-0 Yes USE TO Univers ULTRA2 5-16 TEST BLOOD ity of METER Misc 00:00: [place] [facility] OT 2-0 Yes USE TO [facility] ULTRA/FASTT 5-16 CALIBRATE ity of RACK 00:00: METER [place] CONTROL 00 [facility] ONETOUCH 2021-0 Yes USE TO Univers ULTRA2 5-16 TEST BLOOD ity of METER Misc 00:00: [place] [facility] OT 2021-0 Yes USE TO [facility] ULTRA/FASTT 5-16 CALIBRATE ity of RACK 00:00: METER [place] CONTROL 00 [facility] ONETOUCH 2021-0 Yes USE TO Univers ULTRA2 5-16 TEST BLOOD ity of METER Misc 00:00: [place]SE [place] [facility] OT 2021-0 Yes USE TO [facility] ULTRA/FASTT 5-16 CALIBRATE ity of RACK 00:00: METER [place] CONTROL 00 [facility] ONETOUCH 2021-0 Yes USE TO Univers ULTRA2 5-16 TEST BLOOD ity of METER Misc 00:00: [place]SE [place] [facility] OT 2021-0 Yes USE TO [facility] ULTRA/FASTT 5-16 CALIBRATE ity of RACK 00:00: METER [place] CONTROL 00 [facility] ONETOUCH 2021-0 Yes USE TO Univers ULTRA2 5-16 TEST BLOOD ity of METER Misc 00:00: [place]SE [place] [facility] OT 2021-0 Yes USE TO [facility] ULTRA/FASTT 5-16 CALIBRATE ity of RACK 00:00: METER [place] CONTROL 00 [facility] ONETOUCH 2021-0 Yes USE TO Univers ULTRA2 5-16 TEST BLOOD ity of METER Misc 00:00: [place]SE [place] [facility] OT 2021-0 Yes USE TO [facility] ULTRA/FASTT 5-16 CALIBRATE ity of RACK 00:00: METER [place] CONTROL 00 [facility] ONETOUCH 2021-0 Yes USE TO Univers ULTRA2 5-16 TEST BLOOD ity of METER Misc 00:00: [place]SE [place] [facility] OT 2021-0 Yes USE TO [facility] ULTRA/FASTT 5-16 CALIBRATE ity of RACK 00:00: METER [place] CONTROL 00 [facility] ONETOUCH 2021-0 Yes USE TO Univers ULTRA2 5-16 TEST BLOOD ity of METER Misc 00:00: [place]SE [place] [facility] OT 2021-0 Yes USE TO [facility] ULTRA/FASTT 5-16 CALIBRATE ity of RACK 00:00: METER [place] CONTROL 00 [facility] ONETOUCH 2021-0 Yes USE TO Univers ULTRA2 5-16 TEST BLOOD ity of METER Misc 00:00: [place]SE [place] [facility] OT 2021-0 Yes USE TO [facility] ULTRA/FASTT 5-16 CALIBRATE ity of RACK 00:00: METER [place] CONTROL 00 [facility] ONETOUCH 2021-0 Yes USE TO [facility] ULTRA2 5-16 TEST BLOOD ity of METER Misc 00:00: [place]SE [place] [facility] PRO COMFORT 2021-0 2022- No USE TO Uni vers ALCOHOL 5-16 12-19 TEST BLOOD ity o f PADS PadM 00:00: 00:00 [place]SE [place] :00 TWICE Medical DAILY Branch PRO COMFORT 2021-0 2021- No USE TO Uni vers ALCOHOL 5-16 12-19 TEST BLOOD ity o f PADS PadM 00:00: 00:00 [place]SE [place] 00 :00 TWICE Medical DAILY Branch PRO COMFORT 2021-0 2021- No USE TO Uni vers ALCOHOL 5-16 12-19 TEST BLOOD ity o f PADS PadM 00:00: 00:00 [place]SE [place] 00 :00 TWICE Medical DAILY Branch famotidine 2021-0 Yes [id number] 20mg Take 1 [facility] 20 mg 5-13 tablet by ity of tablet 00:00: mouth [place] ([facility]) Medical times Branch daily. famotidine 2021-0 Yes [id number] 20mg Take 1 [facility] 20 mg 5-13 tablet by ity of tablet 00:00: mouth [place] (two) Medical times Branch daily. famotidine 2021-0 Yes [id number] 20mg Take 1 [facility] 20 mg 5-13 tablet by ity of tablet 00:00: mouth [place] (two) Medical times Branch daily. famotidine 2021-0 Yes [id number] 20mg Take 1 [facility] 20 mg 5-13 tablet by ity of tablet 00:00: mouth 2 [place] (two) Medical times Branch daily. famotidine 2022-0 Yes [id number] 20mg Take 1 [facility] 20 mg 5-13 tablet by ity of tablet 00:00: mouth 2 [place] (two) Medical times Branch daily. famotidine 2-0 Yes [id number] 20mg Take 1 [facility] 20 mg 5-13 tablet by ity of tablet 00:00: mouth [place] (two) Medical times Branch daily. famotidine 2022-0 Yes [id number] 20mg Take 1 [facility] 20 mg 5-13 tablet by ity of tablet 00:00: mouth [place] (two) Medical times Branch daily. famotidine 2022-0 Yes [id number] 20mg Take 1 [facility] 20 mg 5-13 tablet by ity of tablet 00:00: mouth [place] (two) Medical times Branch daily. famotidine 2022-0 Yes [id number] 20mg Take 1 [facility] 20 mg 5-13 tablet by ity of tablet 00:00: mouth [place] (two) Medical times Branch daily. famotidine 2022-0 Yes [id number] 20mg Take 1 [facility] 20 mg 5-13 tablet by ity of tablet 00:00: mouth [place] (two) Medical times Branch daily. famotidine 2022-0 Yes [id number] 20mg Take 1 [facility] 20 mg 5-13 tablet by ity of tablet 00:00: mouth [place] (two) Medical times Branch daily. famotidine 2022-0 Yes [id number] 20mg Take 1 [facility] 20 mg 5-13 tablet by ity of tablet 00:00: mouth [place] (two) Medical times Branch daily. famotidine 2022-0 Yes [id number] 20mg Take 1 [facility] 20 mg 5-13 tablet by ity of tablet 00:00: [address] (two) Medical times Branch daily. famotidine 2022-0 Yes [id number] 20mg Take 1 [facility] 20 mg 5-13 tablet by ity of tablet 00:00: mouth [address] [place] [address] (two) Medical times Branch daily. famotidine 2022-0 Yes [id number] 20mg Take 1 [facility] 20 mg 5-13 tablet by ity of tablet 00:00: mouth [address] [place] [address] (two) Medical times Branch daily. famotidine 2022-0 Yes [id number] 20mg Take 1 [facility] 20 mg 5-13 tablet by ity of tablet 00:00: mouth [address] [place] [address] (two) Medical times Branch daily. famotidine 2022-0 Yes [id number] 20mg Take 1 [facility] 20 mg 5-13 tablet by ity of tablet 00:00: mouth [address] [place] [address] (two) Medical times Branch daily. famotidine 2022-0 Yes [id number] 20mg Take 1 [facility] 20 mg 5-13 tablet by ity of tablet 00:00: mouth 2 (two) Medical times Branch daily. famotidine 2022-0 Yes [id number] 20mg Take 1 [facility] 20 mg 5-13 tablet by ity of tablet 00:00: mouth 2 (two) Medical times Branch daily. famotidine 2022-0 Yes [id number] 20mg Take 1 [facility] 20 mg 5-13 tablet by ity of tablet 00:00: mouth 2 (two) Medical times Branch daily. famotidine 2022-0 Yes [id number] 20mg Take 1 [facility] 20 mg 5-13 tablet by ity of tablet 00:00: mouth 2 [place] (two) Medical times Branch daily. famotidine 2022-0 Yes [id number] 20mg Take 1 [facility] 20 mg 5-13 tablet by ity of tablet 00:00: mouth 2 [place] (two) Medical times Branch daily. famotidine 2022-0 Yes [id number] 20mg Take 1 [facility] 20 mg 5-13 tablet by ity of tablet 00:00: mouth 2 [place] (two) Medical times Branch daily. famotidine 2022-0 Yes [id number] 20mg Take 1 [facility] 20 mg 5-13 tablet by ity of tablet 00:00: mouth 2 [place] (two) Medical times Branch daily. famotidine 2022-0 Yes [id number] 20mg Take 1 [facility] 20 mg 5-13 tablet by ity of tablet 00:00: mouth 2 [place] (two) Medical times Branch daily. famotidine 2022-0 2022- No [id number] 20mg Take 1 [facility] 20 mg 5-13 - tablet by ity of tablet 00:00: 00:00 mouth 2 [place] 00 :00 (two) Medical times Branch daily. nystatin-tr 2022-0 Yes [id number] Apply to Univers iamcinolone 5-03 area(s) 3 ity of cream 00:00: (three) [place] 00 times Medical daily. Branch nystatin-tr 2022-0 Yes [id number] Apply to Univers iamcinolone 5-03 area(s) 3 ity of cream 00:00: (three) [place] 00 times Medical daily. Branch nystatin-tr 2022-0 Yes [id number] Apply to Univers iamcinolone 5-03 area(s) 3 ity of cream 00:00: (three) [place] 00 times Medical daily. Branch nystatin-tr 2022-0 Yes [id number] Apply to Univers iamcinolone 5-03 area(s) 3 ity of cream 00:00: (three) [place] 00 times Medical daily. Branch nystatin-tr 2022-0 Yes [id number] Apply to Univers iamcinolone 5-03 area(s) 3 ity of cream 00:00: (three) [place] 00 times Medical daily. Branch nystatin-tr 2022-0 Yes [id number] Apply to Univers iamcinolone 5-03 area(s) 3 ity of cream 00:00: (three) [place] 00 times Medical daily. Branch nystatin-tr 2022-0 Yes [id number] Apply to Univers iamcinolone 5-03 area(s) 3 ity of cream 00:00: (three) [place] 00 times Medical daily. Branch nystatin-tr 2022-0 Yes [id number] Apply to Univers iamcinolone 5-03 area(s) 3 ity of cream 00:00: (three) [place] 00 times Medical daily. Branch nystatin-tr 2022-0 Yes [id number] Apply to Univers iamcinolone 5-03 area(s) 3 ity of cream 00:00: (three) [place] 00 times Medical daily. Branch nystatin-tr 2022-0 Yes [id number] Apply to Univers iamcinolone 5-03 area(s) 3 ity of cream 00:00: (three) [place] 00 times Medical daily. Branch nystatin-tr 2022-0 Yes [id number] Apply to Univers iamcinolone 5-03 area(s) 3 ity of cream 00:00: (three) [place] 00 times Medical daily. Branch nystatin-tr 2022-0 Yes [id number] Apply to Univers iamcinolone 5-03 area(s) 3 ity of cream 00:00: (three) [place] 00 times Medical daily. Branch nystatin-tr 2022-0 Yes [id number] Apply to Univers iamcinolone 5-03 area(s) 3 ity of cream 00:00: (three) [place] 00 times Medical daily. Branch nystatin-tr 2022-0 Yes [id number] Apply to Univers iamcinolone 5-03 area(s) 3 ity of cream 00:00: (three) [place] 00 times Medical daily. Branch nystatin-tr 2022-0 Yes [id number] Apply to Univers iamcinolone 5-03 area(s) 3 ity of cream 00:00: (three) [place] 00 times Medical daily. Branch nystatin-tr 2022-0 Yes [id number] Apply to Univers iamcinolone 5-03 area(s) 3 ity of cream 00:00: (three) [place] 00 times Medical daily. Branch nystatin-tr 2022-0 Yes [id number] Apply to Univers iamcinolone 5-03 area(s) 3 ity of cream 00:00: (three) [place] 00 times Medical daily. Branch nystatin-tr 2022-0 Yes [id number] Apply to Univers iamcinolone 5-03 area(s) 3 ity of cream 00:00: (three) [place] 00 times Medical daily. Branch nystatin-tr 2022-0 Yes [id number] Apply to Univers iamcinolone 5-03 area(s) 3 ity of cream 00:00: (three) [place] 00 times Medical daily. Branch nystatin-tr 2022-0 Yes [id number] Apply to Univers iamcinolone 5-03 area(s) 3 ity of cream 00:00: (three) [place] 00 times Medical daily. Branch nystatin-tr 2022-0 Yes [id number] Apply to Univers iamcinolone 5-03 area(s) 3 ity of cream 00:00: (three) [place] 00 times Medical daily. Branch nystatin-tr 2022-0 Yes [id number] Apply to Univers iamcinolone 5-03 area(s) 3 ity of cream 00:00: (three) [place] 00 times Medical daily. Branch nystatin-tr 2022-0 Yes [id number] Apply to Univers iamcinolone 5-03 area(s) 3 ity of cream 00:00: (three) [place] 00 times Medical daily. Branch nystatin-tr 2022-0 Yes [id number] Apply to Univers iamcinolone 5-03 area(s) 3 ity of cream 00:00: (three) [place] 00 times Medical daily. Branch nystatin-tr 2022-0 Yes [id number] Apply to Univers iamcinolone 5-03 area(s) 3 ity of cream 00:00: (three) [place] 00 times Medical daily. Branch nystatin-tr 2022-0 Yes [id number] Apply to Univers iamcinolone 5-03 area(s) 3 ity of cream 00:00: (three) [place] 00 times Medical daily. Branch nystatin-tr 2022-0 Yes [id number] Apply to Univers iamcinolone 5-03 area(s) 3 ity of cream 00:00: (three) [place] 00 times Medical daily. Branch nystatin-tr 2022-0 Yes [id number] Apply to Univers iamcinolone 5-03 area(s) 3 ity of cream 00:00: (three) [place] 00 times Medical daily. Branch nystatin-tr 2022-0 Yes [id number] Apply to Univers iamcinolone 5-03 area(s) 3 ity of cream 00:00: (three) [place] 00 times Medical daily. Branch nystatin-tr 2022-0 Yes [id number] Apply to Univers iamcinolone 5-03 area(s) 3 ity of cream 00:00: (three) [place] 00 times Medical daily. Branch nystatin-tr 2022-0 Yes [id number] Apply to Univers iamcinolone 5-03 area(s) 3 ity of cream 00:00: (three) [place] 00 times Medical daily. Branch nystatin-tr 2022-0 Yes [id number] Apply to Univers iamcinolone 5-03 area(s) 3 ity of cream 00:00: (three) [place] 00 times Medical daily. Branch nystatin-tr 2022-0 Yes [id number] Apply to Univers iamcinolone 5-03 area(s) 3 ity of cream 00:00: (three) [place] 00 times Medical daily. Branch nystatin-tr 2022-0 Yes [id number] Apply to Univers iamcinolone 5-03 area(s) 3 ity of cream 00:00: (three) [place] 00 times Medical daily. Branch nystatin-tr 2022-0 Yes [id number] Apply to Univers iamcinolone 5-03 area(s) 3 ity of cream 00:00: (three) [place] 00 times Medical daily. Branch nystatin-tr 2022-0 Yes [id number] Apply to Univers iamcinolone 5-03 area(s) 3 ity of cream 00:00: (three) [place] 00 times Medical daily. Branch nystatin-tr 2022-0 Yes [id number] Apply to Univers iamcinolone 5-03 area(s) 3 ity of cream 00:00: (three) [place] 00 times Medical daily. Branch nystatin-tr 2022-0 Yes [id number] Apply to Univers iamcinolone 5-03 area(s) 3 ity of cream 00:00: (three) [place] 00 times Medical daily. Branch nystatin-tr 2022-0 Yes [id number] Apply to Univers iamcinolone 5-03 area(s) 3 ity of cream 00:00: (three) [place] 00 times Medical daily. Branch nystatin-tr 2022-0 Yes [id number] Apply to Univers iamcinolone 5-03 area(s) 3 ity of cream 00:00: (three) [place] 00 times Medical daily. Branch nystatin-tr 2022-0 Yes [id number] Apply to Univers iamcinolone 5-03 area(s) 3 ity of cream 00:00: (three) [place] 00 times Medical daily. Branch nystatin-tr 2022-0 Yes [id number] Apply to Univers iamcinolone 5-03 area(s) 3 ity of cream 00:00: (three) [place] 00 times Medical daily. Branch nystatin-tr 2022-0 Yes [id number] Apply to Univers iamcinolone 5-03 area(s) 3 ity of cream 00:00: (three) [place] 00 times Medical daily. Branch nystatin-tr 2022-0 Yes [id number] Apply to Univers iamcinolone 5-03 area(s) 3 ity of cream 00:00: (three) [place] 00 times Medical daily. Branch nystatin-tr 2022-0 Yes [id number] Apply to Univers iamcinolone 5-03 area(s) 3 ity of cream 00:00: (three) [place] 00 times Medical daily. Branch nystatin-tr 2022-0 Yes [id number] Apply to Univers iamcinolone 5-03 area(s) 3 ity of cream 00:00: (three) [place] 00 times Medical daily. Branch nystatin-tr 2022-0 Yes [id number] Apply to Univers iamcinolone 5-03 area(s) 3 ity of cream 00:00: (three) [place] 00 times Medical daily. Branch nystatin-tr 2022-0 Yes [id number] Apply to Univers iamcinolone 5-03 area(s) 3 ity of cream 00:00: (three) [place] 00 times Medical daily. Branch nystatin-tr 2022-0 Yes [id number] Apply to Univers iamcinolone 5-03 area(s) 3 ity of cream 00:00: (three) [place] 00 times Medical daily. Branch nystatin-tr 2022-0 Yes [id number] Apply to Univers iamcinolone 5-03 area(s) 3 ity of cream 00:00: (three) [place] 00 times Medical daily. Branch nystatin-tr 2022-0 2022- No [id number] Apply to Univers iamcinolone 5-03 12-19 area(s) 3 it y of cream 00:00: 00:00 (three) [place] 00 :00 times Medical daily. Branch nystatin-tr 2022-0 2022- No [id number] Apply to Univers iamcinolone 5-03 12-19 area(s) 3 it y of cream 00:00: 00:00 (three) [place] 00 :00 times Medical daily. Branch nystatin-tr 2022-0 2022- No [id number] Apply to Univers iamcinolone 5-03 12-19 area(s) 3 it y of cream 00:00: 00:00 (three) [place] 00 :00 times Medical daily. Branch Methen-Hyos 2022-0 Yes [id number] 120mg Take 120 Univers c-M.Blue-Sa 4-18 mg by ity of l-NaPhos 00:00: mouth 2 [place] ([facility]) 00 (two) Medical 120-0.12 mg times Branch Cap daily as needed (bladder spasms). [place]-Hyos 2022-0 Yes [id number] 120mg Take 120 Univers c-M.Blue-Sa 4-18 mg by ity of l-NaPhos 00:00: mouth 2 [place] ([facility]) 00 (two) Medical 120-0.12 mg times Branch Cap daily as needed (bladder spasms). [place] 2022-0 Yes [id number] 120mg Take 120 Univers c-M.Blue-Sa 4-18 mg by ity of l-NaPhos 00:00: mouth 2 [place] ([facility]) 00 (two) Medical 120-0.12 mg times Branch Cap daily as needed (bladder spasms). [place] 2022-0 Yes [id number] 120mg Take 120 Univers c-M.Blue-Sa 4-18 mg by ity of l-NaPhos 00:00: mouth 2 [place] ([facility]) 00 (two) Medical 120-0.12 mg times Branch Cap daily as needed (bladder spasms). [place] 2022-0 Yes [id number] 120mg Take 120 Univers c-M.Blue-Sa 4-18 mg by ity of l-NaPhos 00:00: mouth 2 [place] ([facility]) 00 (two) Medical 120-0.12 mg times Branch Cap daily as needed (bladder spasms). [place] 2-0 Yes [id number] 120mg Take 120 Univers c-M.Blue-Sa 4-18 mg by ity of l-NaPhos 00:00: mouth 2 [place] ([facility]) 00 (two) Medical 120-0.12 mg times Branch Cap daily as needed (bladder spasms). [place] 2-0 Yes [id number] 120mg Take 120 Univers c-M.Blue-Sa 4-18 mg by ity of l-NaPhos 00:00: mouth 2 [place] ([facility]) 00 (two) Medical 120-0.12 mg times Branch Cap daily as needed (bladder spasms). [place] 2022-0 Yes [id number] 120mg Take 120 Univers c-M.Blue-Sa 4-18 mg by ity of l-NaPhos 00:00: mouth 2 [place] ([facility]) 00 (two) Medical 120-0.12 mg times Branch Cap daily as needed (bladder spasms). [place] 2022-0 Yes [id number] 120mg Take 120 Univers c-M.Blue-Sa 4-18 mg by ity of l-NaPhos 00:00: mouth 2 [place] ([facility]) 00 (two) Medical 120-0.12 mg times Branch Cap daily as needed (bladder spasms). [place] 2-0 Yes [id number] 120mg Take 120 Univers c-M.Blue-Sa 4-18 mg by ity of l-NaPhos 00:00: mouth 2 [place] ([facility]) 00 (two) Medical 120-0.12 mg times Branch Cap daily as needed (bladder spasms). [place]os 2021-0 Yes [id number] 120mg Take 120 Univers c-M.Blue-Sa 4-18 mg by ity of l-NaPhos 00:00: mouth 2 [place] ([facility]) 00 (two) Medical 120-0.12 mg times Branch Cap daily as needed (bladder spasms). [place]os 2021-0 Yes [id number] 120mg Take 120 Univers c-M.Blue-Sa 4-18 mg by ity of l-NaPhos 00:00: mouth 2 [place] ([facility]) 00 (two) Medical 120-0.12 mg times Branch Cap daily as needed (bladder spasms). [place]os 2021-0 Yes [id number] 120mg Take 120 Univers c-M.Blue-Sa 4-18 mg by ity of l-NaPhos 00:00: mouth 2 [place] ([facility]) 00 (two) Medical 120-0.12 mg times Branch Cap daily as needed (bladder spasms). [place]os 2021-0 Yes [id number] 120mg Take 120 Univers c-M.Blue-Sa 4-18 mg by ity of l-NaPhos 00:00: mouth 2 [place] ([facility]) 00 (two) Medical 120-0.12 mg times Branch Cap daily as needed (bladder spasms). [place] 2-0 Yes [id number] 120mg Take 120 Univers c-M.Blue-Sa 4-18 mg by ity of l-NaPhos 00:00: mouth 2 [place] ([facility]) 00 (two) Medical 120-0.12 mg times Branch Cap daily as needed (bladder spasms). [place] 2-0 Yes [id number] 120mg Take 120 Univers c-M.Blue-Sa 4-18 mg by ity of l-NaPhos 00:00: mouth 2 [place] ([facility]) 00 (two) Medical 120-0.12 mg times Branch Cap daily as needed (bladder spasms). [place] 2-0 Yes [id number] 120mg Take 120 Univers c-M.Blue-Sa 4-18 mg by ity of l-NaPhos 00:00: mouth 2 [place] ([facility]) 00 (two) Medical 120-0.12 mg times Branch Cap daily as needed (bladder spasms). [place]os 2021-0 Yes [id number] 120mg Take 120 Univers c-M.Blue-Sa 4-18 mg by ity of l-NaPhos 00:00: mouth 2 [place] ([facility]) 00 (two) Medical 120-0.12 mg times Branch Cap daily as needed (bladder spasms). [place] 2021-0 Yes [id number] 120mg Take 120 Univers c-M.Blue-Sa 4-18 mg by ity of l-NaPhos 00:00: mouth 2 [place] ([facility]) 00 (two) Medical 120-0.12 mg times Branch Cap daily as needed (bladder spasms). [place] 2021-0 Yes [id number] 120mg Take 120 Univers c-M.Blue-Sa 4-18 mg by ity of l-NaPhos 00:00: mouth 2 [place] ([facility]) 00 (two) Medical 120-0.12 mg times Branch Cap daily as needed (bladder spasms). [place]os 2021-0 Yes [id number] 120mg Take 120 Univers c-M.Blue-Sa 4-18 mg by ity of l-NaPhos 00:00: mouth 2 [place] ([facility]) 00 (two) Medical 120-0.12 mg times Branch Cap daily as needed (bladder spasms). [place]os 2021-0 Yes [id number] 120mg Take 120 Univers c-M.Blue-Sa 4-18 mg by ity of l-NaPhos 00:00: mouth 2 [place] ([facility]) 00 (two) Medical 120-0.12 mg times Branch Cap daily as needed (bladder spasms). [place]-[facility]os 2021-0 Yes [id number] 120mg Take 120 Univers c-M.Blue-Sa 4-18 mg by ity of l-NaPhos 00:00: mouth 2 [place] ([facility]) 00 (two) Medical 120-0.12 mg times Branch Cap daily as needed (bladder spasms). [place]os 2021-0 Yes [id number] 120mg Take 120 Univers c-M.Blue-Sa 4-18 mg by ity of l-NaPhos 00:00: mouth 2 [place] ([facility]) 00 (two) Medical 120-0.12 mg times Branch Cap daily as needed (bladder spasms). [place] 2021-0 Yes [id number] 120mg Take 120 Univers c-M.Blue-Sa 4-18 mg by ity of l-NaPhos 00:00: mouth 2 [place] ([facility]) 00 (two) Medical 120-0.12 mg times Branch Cap daily as needed (bladder spasms). [place] 2021-0 Yes [id number] 120mg Take 120 Univers c-M.Blue-Sa 4-18 mg by ity of l-NaPhos 00:00: mouth 2 [place] ([facility]) 00 (two) Medical 120-0.12 mg times Branch Cap daily as needed (bladder spasms). [place]-[facility] 2021-0 Yes [id number] 120mg Take 120 Univers c-M.Blue-Sa 4-18 mg by ity of l-NaPhos 00:00: mouth 2 [place] ([facility]) 00 (two) Medical 120-0.12 mg times Branch Cap daily as needed (bladder spasms). [facility]os 2021-0 Yes [id number] 120mg Take 120 [facility]-M.Blue-Sa 4-18 mg by [facility] 00:00: mouth 2 [place] ([facility]) 00 (two) Medical 120-0.12 mg times Branch Cap daily as needed (bladder spasms). [facility]os 2021-0 Yes [id number] 120mg Take 120 [facility] c-M.Blue-Sa 4-18 mg by ity of l-[facility]Ph[facility] 00:00: mouth 2 [place] ([facility]) 00 (two) Medical 120-0.12 mg times Branch Cap daily as needed (bladder spasms). [facility]os 2022-0 Yes [id number] 120mg Take 120 [facility] c-M.Blue-Sa 4-18 mg by ity of l-[facility]Ph[facility] 00:00: mouth 2 [place] ([facility]) 00 (two) Medical 120-0.12 mg times Branch Cap daily as needed (bladder spasms). [facility]os 2021-0 Yes [id number] 120mg Take 120 [facility] c-M.Blue-Sa 4-18 mg by ity of l-NaPhos 00:00: mouth 2 [place] ([facility]) 00 (two) Medical 120-0.12 mg times Branch Cap daily as needed (bladder spasms). [facility]os 2021-0 Yes [id number] 120mg Take 120 [facility] c-M.Blue-Sa 4-18 mg by ity of l-NaPhos 00:00: mouth 2 [place] ([facility]) 00 (two) Medical 120-0.12 mg times Branch Cap daily as needed (bladder spasms). [facility]os 2021-0 Yes [id number] 120mg Take 120 [facility] c-M.Blue-Sa 4-18 mg by ity of l-NaPhos 00:00: mouth 2 [place] ([facility]) 00 (two) Medical 120-0.12 mg times Branch Cap daily as needed (bladder spasms). [facility]os 2021-0 Yes [id number] 120mg Take 120 [facility] c-M.Blue-Sa 4-18 mg by ity of l-NaPhos 00:00: mouth 2 [place] ([facility]) 00 (two) Medical 120-0.12 mg times Branch Cap daily as needed (bladder spasms). [facility]os 2021-0 Yes [id number] 120mg Take 120 [facility] c-M.Blue-Sa 4-18 mg by ity of l-NaPhos 00:00: mouth 2 [place] ([facility]) 00 (two) Medical 120-0.12 mg times Branch Cap daily as needed (bladder spasms). [facility]os 2021-0 Yes [id number] 120mg Take 120 [facility] c-M.Blue-Sa 4-18 mg by ity of l-NaPhos 00:00: mouth 2 [place] ([facility]) 00 (two) Medical 120-0.12 mg times Branch Cap daily as needed (bladder spasms). [facility]os 2022-0 Yes [id number] 120mg Take 120 [facility] c-M.Blue-Sa 4-18 mg by ity of l-NaPhos 00:00: mouth 2 [place] ([facility]) 00 (two) Medical 120-0.12 mg times Branch Cap daily as needed (bladder spasms). [facility]os 2022-0 Yes [id number] 120mg Take 120 [facility] c-M.Blue-Sa 4-18 mg by ity of l-NaPhos 00:00: mouth 2 [place] ([facility]) 00 (two) Medical 120-0.12 mg times Branch Cap daily as needed (bladder spasms). [facility]os 2022-0 Yes [id number] 120mg Take 120 [facility] c-M.Blue-Sa 4-18 mg by ity of l-NaPhos 00:00: mouth 2 [place] ([facility]) 00 (two) Medical 120-0.12 mg times Branch Cap daily as needed (bladder spasms). [facility]os 2-0 Yes [id number] 120mg Take 120 [facility] c-M.Blue-Sa 4-18 mg by ity of l-NaPhos 00:00: mouth 2 [place] ([facility]) 00 (two) Medical 120-0.12 mg times Branch Cap daily as needed (bladder spasms). [facility]os 2-0 Yes [id number] 120mg Take 120 [facility] c-M.Blue-Sa 4-18 mg by ity of l-NaPhos 00:00: mouth 2 [place] ([facility]) 00 (two) Medical 120-0.12 mg times Branch Cap daily as needed (bladder spasms). [facility]os 2022-0 Yes [id number] 120mg Take 120 [facility] c-M.Blue-Sa 4-18 mg by ity of l-NaPhos 00:00: mouth 2 [place] ([facility]) 00 (two) Medical 120-0.12 mg times Branch Cap daily as needed (bladder spasms). [facility]os 2022-0 Yes [id number] 120mg Take 120 [facility] c-M.Blue-Sa 4-18 mg by ity of l-NaPhos 00:00: mouth 2 [place] ([facility]) 00 (two) Medical 120-0.12 mg times Branch Cap daily as needed (bladder spasms). [facility]os 2022-0 Yes [id number] 120mg Take 120 [facility] c-M.Blue-Sa 4-18 mg by ity of l-NaPhos 00:00: mouth 2 [place] ([facility]) 00 (two) Medical 120-0.12 mg times Branch Cap daily as needed (bladder spasms). [facility]os 2022-0 Yes [id number] 120mg Take 120 [facility] c-M.Blue-Sa 4-18 mg by ity of l-NaPhos 00:00: mouth 2 [place] ([facility]) 00 (two) Medical 120-0.12 mg times Branch Cap daily as needed (bladder spasms). [facility]-Hyos 2022-0 Yes [id number] 120mg Take 120 [facility] c-M.Blue-Sa 4-18 mg by ity of l-NaPhos 00:00: mouth 2 [place] ([facility]) 00 (two) Medical 120-0.12 mg times Branch Cap daily as needed (bladder spasms). [facility]os 2022-0 Yes [id number] 120mg Take 120 [facility] c-M.Blue-Sa 4-18 mg by ity of l-NaPhos 00:00: mouth 2 [place] ([facility]) 00 (two) Medical 120-0.12 mg times Branch Cap daily as needed (bladder spasms). [facility]-Hyos 2022-0 Yes [id number] 120mg Take 120 [facility] c-M.Blue-Sa 4-18 mg by ity of l-NaPhos 00:00: mouth 2 [place] ([facility]) 00 (two) Medical 120-0.12 mg times Branch Cap daily as needed (bladder spasms). [facility]hen-Hyos 2022-0 Yes [id number] 120mg Take 120 [facility] c-M.Blue-Sa 4-18 mg by ity of l-NaPhos 00:00: mouth 2 [place] ([facility]) 00 (two) Medical 120-0.12 mg times Branch Cap daily as needed (bladder spasms). [facility]-Hyos 2022-0 Yes [id number] 120mg Take 120 [facility] c-M.Blue-Sa 4-18 mg by ity of l-NaPhos 00:00: mouth 2 [place] ([facility]) 00 (two) Medical 120-0.12 mg times Branch Cap daily as needed (bladder spasms). [facility]-Hyos 2021-0 2021- No [id number] 120mg Take 120 [facility] c-M.Blue-Sa 4-18 12-19 mg by ity of l-NaPhos 00:00: 00:00 mouth 2 [place] ([facility]) 00 :00 (two) Medical 120-0.12 mg times Branch Cap daily as needed (bladder spasms). [facility]-Hyos 2021-0 2021- No [id number] 120mg Take 120 [facility] c-M.Blue-Sa 4-18 12-19 mg by ity of l-NaPhos 00:00: 00:00 mouth 2 [place] ([facility]) 00 :00 (two) Medical 120-0.12 mg times Branch Cap daily as needed (bladder spasms). [facility]-Hyos 2021-0 2021- No [id number] 120mg Take 120 [facility] c-M.Blue-Sa 4-18 12-19 mg by ity of l-NaPhos 00:00: 00:00 mouth 2 [place] ([facility]) 00 :00 (two) Medical 120-0.12 mg times Branch Cap daily as needed (bladder spasms). tamsulosin 2-0 Yes [id number] .4mg Take 1 Un o[facility]iel 0.4 mg 24 4-04 capsule by ity of hr capsule 00:00: mouth [place] 00 daily. Medical Branch tamsulosin 2-0 Yes [id number] .4mg Take 1 Un [facility] 0.4 mg 24 4-04 capsule by ity of hr capsule 00:00: mouth 00 daily. Medical Branch tamsulosin 2022-0 Yes [id number] .4mg Take 1 Un [facility] 0.4 mg 24 4-04 capsule by ity of hr capsule 00:00: mouth 00 daily. Medical Branch tamsulosin 2022-0 Yes [id number] .4mg Take 1 Un [facility] 0.4 mg 24 4-04 capsule by ity of hr capsule 00:00: mouth 00 daily. Medical Branch tamsulosin 2022-0 Yes [id number] .4mg Take 1 Un [place] 0.4 mg 24 4-04 capsule by ity of hr capsule 00:00: mouth 00 daily. Medical Branch tamsulosin 2-0 Yes [id number] .4mg Take 1 Un [facility] 0.4 mg 24 4-04 capsule by ity of hr capsule 00:00: mouth [place] 00 daily. Medical Branch tamsulosin 2-0 Yes [id number] .4mg Take 1 Un [facility] 0.4 mg 24 4-04 capsule by ity of hr capsule 00:00: mouth [place] 00 daily. Medical Branch tamsulosin 2-0 Yes [id number] .4mg Take 1 Un [facility] 0.4 mg 24 4-04 capsule by ity of hr capsule 00:00: mouth [place] 00 daily. Medical Branch tamsulosin 2-0 Yes [id number] .4mg Take 1 Un [facility] 0.4 mg 24 4-04 capsule by ity of hr capsule 00:00: mouth [place] 00 daily. Medical Branch tamsulosin 2-0 Yes [id number] .4mg Take 1 Un [facility] 0.4 mg 24 4-04 capsule by ity of hr capsule 00:00: mouth [place] 00 daily. Medical Branch tamsulosin 2-0 Yes [id number] .4mg Take 1 Un [facility] 0.4 mg 24 4-04 capsule by ity of hr capsule 00:00: mouth [place] 00 daily. Medical Branch tamsulosin 2-0 Yes [id number] .4mg Take 1 Un [facility] 0.4 mg 24 4-04 capsule by ity of hr capsule 00:00: mouth [place] 00 daily. Medical Branch tamsulosin 2022-0 Yes [id number] .4mg Take 1 Un [facility] 0.4 mg 24 4-04 capsule by ity of hr capsule 00:00: mouth [place] 00 daily. Medical Branch tamsulosin 2-0 Yes [id number] .4mg Take 1 Un [facility] 0.4 mg 24 4-04 capsule by ity of hr capsule 00:00: mouth [place] 00 daily. Medical Branch tamsulosin 2022-0 Yes [id number] .4mg Take 1 Un [facility] 0.4 mg 24 4-04 capsule by ity of hr capsule 00:00: mouth [place] 00 daily. Medical Branch tamsulosin 2022-0 Yes [id number] .4mg Take 1 Un [facility] 0.4 mg 24 4-04 capsule by ity of hr capsule 00:00: mouth [place] 00 daily. Medical Branch tamsulosin 2022-0 Yes [id number] .4mg Take 1 Un [facility] 0.4 mg 24 4-04 capsule by ity of hr capsule 00:00: mouth [place] 00 daily. Medical Branch tamsulosin 2-0 Yes [id number] .4mg Take 1 Un [facility] 0.4 mg 24 4-04 capsule by ity of hr capsule 00:00: mouth [place] 00 daily. Medical Branch tamsulosin 2-0 Yes [id number] .4mg Take 1 Un [facility] 0.4 mg 24 4-04 capsule by ity of hr capsule 00:00: mouth [place] 00 daily. Medical Branch tamsulosin 2-0 Yes [id number] .4mg Take 1 Un [facility] 0.4 mg 24 4-04 capsule by ity of hr capsule 00:00: mouth [place] 00 daily. Medical Branch tamsulosin 2-0 Yes [id number] .4mg Take 1 Un [facility] 0.4 mg 24 4-04 capsule by ity of hr capsule 00:00: mouth [place] 00 daily. Medical Branch tamsulosin 2-0 Yes [id number] .4mg Take 1 Un [place] 0.4 mg 24 4-04 capsule by ity of hr capsule 00:00: mouth [place] 00 daily. Medical Branch tamsulosin 2-0 Yes [id number] .4mg Take 1 Un [facility] 0.4 mg 24 4-04 capsule by ity of hr capsule 00:00: mouth [place] 00 daily. Medical Branch tamsulosin 2-0 Yes [id number] .4mg Take 1 Un [place] 0.4 mg 24 4-04 capsule by ity of hr capsule 00:00: mouth [place] 00 daily. Medical Branch tamsulosin 2-0 Yes [id number] .4mg Take 1 Un [place] 0.4 mg 24 4-04 capsule by ity of hr capsule 00:00: mouth [place] 00 daily. Medical Branch tamsulosin 2-0 Yes [id number] .4mg Take 1 Un [place] 0.4 mg 24 4-04 capsule by ity of hr capsule 00:00: mouth [place] 00 daily. Medical Branch tamsulosin 2-0 Yes [id number] .4mg Take 1 Un [place] 0.4 mg 24 4-04 capsule by ity of hr capsule 00:00: mouth [place] 00 daily. Medical Branch tamsulosin 2022-0 Yes [id number] .4mg Take 1 Un [facility] 0.4 mg 24 4-04 capsule by ity of hr capsule 00:00: mouth [place] 00 daily. Medical Branch tamsulosin 2-0 Yes [id number] .4mg Take 1 Un [place] 0.4 mg 24 4-04 capsule by ity of hr capsule 00:00: mouth [place] 00 daily. Medical Branch tamsulosin 2-0 Yes [id number] .4mg Take 1 Un [place] 0.4 mg 24 4-04 capsule by ity of hr capsule 00:00: mouth [place] 00 daily. Medical Branch tamsulosin 2-0 Yes [id number] .4mg Take 1 Un [place] 0.4 mg 24 4-04 capsule by ity of hr capsule 00:00: mouth [place] 00 daily. Medical Branch tamsulosin 2021-0 Yes [id number] .4mg Take 1 Un [place] 0.4 mg 24 4-04 capsule by ity of hr capsule 00:00: mouth [place] 00 daily. Medical Branch tamsulosin 2-0 Yes [id number] .4mg Take 1 Un [place] 0.4 mg 24 4-04 capsule by ity of hr capsule 00:00: mouth [place] 00 daily. Medical Branch tamsulosin 2-0 Yes [id number] .4mg Take 1 Un [place] 0.4 mg 24 4-04 capsule by ity of hr capsule 00:00: mouth [place] 00 daily. Medical Branch tamsulosin 2-0 Yes [id number] .4mg Take 1 Un [place] 0.4 mg 24 4-04 capsule by ity of hr capsule 00:00: mouth [place] 00 daily. Medical Branch tamsulosin 2-0 Yes [id number] .4mg Take 1 Un [place] 0.4 mg 24 4-04 capsule by ity of hr capsule 00:00: mouth [place] 00 daily. Medical Branch tamsulosin 2-0 Yes [id number] .4mg Take 1 Un [place] 0.4 mg 24 4-04 capsule by ity of hr capsule 00:00: mouth [place] 00 daily. Medical Branch tamsulosin 2-0 Yes [id number] .4mg Take 1 [facility] [place] 0.4 mg 24 4-04 capsule by ity of hr capsule 00:00: mouth [place] 00 daily. Medical Branch tamsulosin 2-0 Yes [id number] .4mg Take 1 Un [place] 0.4 mg 24 4-04 capsule by ity of hr capsule 00:00: mouth [place] 00 daily. Medical Branch tamsulosin 2-0 Yes [id number] .4mg Take 1 Un [place] 0.4 mg 24 4-04 capsule by ity of hr capsule 00:00: mouth [place] 00 daily. Medical Branch tamsulosin 2-0 Yes [id number] .4mg Take 1 [facility] [place] 0.4 mg 24 4-04 capsule by ity of hr capsule 00:00: mouth [place] 00 daily. Medical Branch tamsulosin 2-0 Yes [id number] .4mg Take 1 Un [place] 0.4 mg 24 4-04 capsule by ity of hr capsule 00:00: mouth [place] 00 daily. Medical Branch tamsulosin 2-0 Yes [id number] .4mg Take 1 [facility] [place] 0.4 mg 24 4-04 capsule by ity of hr capsule 00:00: mouth [place] 00 daily. Medical Branch tamsulosin 2-0 Yes [id number] .4mg Take 1 Un [place] 0.4 mg 24 4-04 capsule by ity of hr capsule 00:00: mouth [place] 00 daily. Medical Branch tamsulosin 2-0 Yes [id number] .4mg Take 1 Un [place] 0.4 mg 24 4-04 capsule by ity of hr capsule 00:00: mouth [place] 00 daily. Medical Branch tamsulosin 2-0 Yes [id number] .4mg Take 1 [facility] [place] 0.4 mg 24 4-04 capsule by ity of hr capsule 00:00: mouth [place] 00 daily. Medical Branch tamsulosin 2-0 Yes [id number] .4mg Take 1 [facility] [place] 0.4 mg 24 4-04 capsule by ity of hr capsule 00:00: mouth [place] 00 daily. Medical Branch tamsulosin 2-0 Yes [id number] .4mg Take 1 Un [place] 0.4 mg 24 4-04 capsule by ity of hr capsule 00:00: mouth [place] 00 daily. Medical Branch tamsulosin 2-0 Yes [id number] .4mg Take 1 Un [place] 0.4 mg 24 4-04 capsule by ity of hr capsule 00:00: mouth [place] 00 daily. Medical Branch tamsulosin 2-0 Yes [id number] .4mg Take 1 Un [place] 0.4 mg 24 4-04 capsule by ity of hr capsule 00:00: mouth [place] 00 daily. Medical Branch tamsulosin 2021-0 Yes [id number] .4mg Take 1 Un [place] 0.4 mg 24 4-04 capsule by ity of hr capsule 00:00: mouth [place] 00 daily. Medical Branch tamsulosin 2-0 Yes [id number] .4mg Take 1 [facility] [place] 0.4 mg 24 4-04 capsule by ity of hr capsule 00:00: mouth [place] 00 daily. Medical Branch tamsulosin 2-0 Yes [id number] .4mg Take 1 Un [place] 0.4 mg 24 4-04 capsule by ity of hr capsule 00:00: mouth [place] 00 daily. Medical Branch tamsulosin 2021-0 Yes [id number] .4mg Take 1 Un [place] 0.4 mg 24 4-04 capsule by ity of hr capsule 00:00: mouth [place] 00 daily. Medical Branch tamsulosin 2021-0 Yes [id number] .4mg Take 1 [facility] [place] 0.4 mg 24 4-04 capsule by ity of hr capsule 00:00: mouth [place] 00 daily. Medical Branch tamsulosin 2021-0 Yes [id number] .4mg Take 1 Un [place] 0.4 mg 24 4-04 capsule by ity of hr capsule 00:00: mouth [place] 00 daily. Medical Branch tamsulosin 2021-0 Yes [id number] .4mg Take 1 Un [place] 0.4 mg 24 4-04 capsule by ity of hr capsule 00:00: mouth [place] 00 daily. Medical Branch tamsulosin 2-0 Yes [id number] .4mg Take 1 Un [place] 0.4 mg 24 4-04 capsule by ity of hr capsule 00:00: mouth [place] 00 daily. Medical Branch tamsulosin 2-0 Yes [id number] .4mg Take 1 [facility] [place] 0.4 mg 24 4-04 capsule by ity of hr capsule 00:00: mouth [place] 00 daily. Medical Branch tamsulosin 2-0 Yes [id number] .4mg Take 1 Un [place] 0.4 mg 24 4-04 capsule by ity of hr capsule 00:00: mouth [place] 00 daily. Medical Branch tamsulosin 2-0 Yes [id number] .4mg Take 1 [facility] [place] 0.4 mg 24 4-04 capsule by ity of hr capsule 00:00: mouth [place] 00 daily. Medical Branch tamsulosin 2-0 Yes [id number] .4mg Take 1 Un [place] 0.4 mg 24 4-04 capsule by ity of hr capsule 00:00: mouth [place] 00 daily. Medical Branch tamsulosin 2-0 Yes [id number] .4mg Take 1 Un [place] 0.4 mg 24 4-04 capsule by ity of hr capsule 00:00: mouth [place] 00 daily. Medical Branch tamsulosin 2-0 Yes [id number] .4mg Take 1 [facility] [place] 0.4 mg 24 4-04 capsule by ity of hr capsule 00:00: mouth [place] 00 daily. Medical Branch tamsulosin 2021-0 Yes [id number] .4mg Take 1 [facility] [place] 0.4 mg 24 4-04 capsule by ity of hr capsule 00:00: mouth [place] 00 daily. Medical Branch tamsulosin 2021-0 Yes [id number] .4mg Take 1 [facility] [place] 0.4 mg 24 4-04 capsule by ity of hr capsule 00:00: mouth [place] 00 daily. Medical Branch tamsulosin 2021-0 Yes [id number] .4mg Take 1 [facility] [place] 0.4 mg 24 4-04 capsule by ity of hr capsule 00:00: mouth [place] 00 daily. Medical Branch tamsulosin 2021-0 Yes [id number] .4mg Take 1 [facility] [place] 0.4 mg 24 4-04 capsule by ity of hr capsule 00:00: mouth [place] 00 daily. Medical Branch tamsulosin 2-0 Yes [id number] .4mg Take 1 [facility] [place] 0.4 mg 24 4-04 capsule by ity of hr capsule 00:00: mouth [place] 00 daily. Medical Branch tamsulosin 2-0 Yes [id number] .4mg Take 1 [facility] [place] 0.4 mg 24 4-04 capsule by ity of hr capsule 00:00: mouth [place] 00 daily. Medical Branch tamsulosin 2-0 Yes [id number] .4mg Take 1 [facility] [place] 0.4 mg 24 4-04 capsule by ity of hr capsule 00:00: mouth [place] 00 daily. Medical Branch tamsulosin 2-0 Yes [id number] .4mg Take 1 [facility] [place] 0.4 mg 24 4-04 capsule by ity of hr capsule 00:00: mouth [place] 00 daily. Medical Branch tamsulosin 2-0 Yes [id number] .4mg Take 1 [facility] [place] 0.4 mg 24 4-04 capsule by ity of hr capsule 00:00: mouth [place] 00 daily. Medical Branch tamsulosin 2-0 Yes [id number] .4mg Take 1 [facility] [place] 0.4 mg 24 4-04 capsule by ity of hr capsule 00:00: mouth [place] 00 daily. Medical Branch tamsulosin 2-0 Yes [id number] .4mg Take 1 [facility] [place] 0.4 mg 24 4-04 capsule by ity of hr capsule 00:00: mouth [place] 00 daily. Medical Branch tamsulosin 2-0 Yes [id number] .4mg Take 1 [facility] [place] 0.4 mg 24 4-04 capsule by ity of hr capsule 00:00: mouth [place] 00 daily. Medical Branch tamsulosin 2-0 Yes [id number] .4mg Take 1 [facility] [place] 0.4 mg 24 4-04 capsule by ity of hr capsule 00:00: mouth [place] 00 daily. Medical Branch tamsulosin 2-0 Yes [id number] .4mg Take 1 [facility] [place] 0.4 mg 24 4-04 capsule by ity of hr capsule 00:00: mouth [place] 00 daily. Medical Branch tamsulosin 2-0 Yes [id number] .4mg Take 1 [facility] [place] 0.4 mg 24 4-04 capsule by ity of hr capsule 00:00: mouth [place] 00 daily. Medical Branch tamsulosin 2-0 Yes [id number] .4mg Take 1 [facility] [place] 0.4 mg 24 4-04 capsule by ity of hr capsule 00:00: mouth [place] 00 daily. Medical Branch tamsulosin 2-0 Yes [id number] .4mg Take 1 [facility] [place] 0.4 mg 24 4-04 capsule by ity of hr capsule 00:00: mouth [place] 00 daily. Medical Branch tamsulosin 2-0 Yes [id number] .4mg Take 1 [facility] [place] 0.4 mg 24 4-04 capsule by ity of hr capsule 00:00: mouth [place] 00 daily. Medical Branch tamsulosin 2022-0 Yes [id number] .4mg Take 1 [facility] [place] 0.4 mg 24 4-04 capsule by ity of hr capsule 00:00: mouth [place] 00 daily. Medical Branch tamsulosin 2022-0 Yes [id number] .4mg Take 1 [facility] [place] 0.4 mg 24 4-04 capsule by ity of hr capsule 00:00: mouth [place] 00 daily. Medical Branch tamsulosin 2022-0 Yes [id number] .4mg Take 1 [facility] [place] 0.4 mg 24 4-04 capsule by ity of hr capsule 00:00: mouth [place] 00 daily. Medical Branch tamsulosin 2022-0 Yes [id number] .4mg Take 1 [facility] [place] 0.4 mg 24 4-04 capsule by ity of hr capsule 00:00: mouth [place] 00 daily. Medical Branch tamsulosin 2022-0 Yes [id number] .4mg Take 1 [facility] [place] 0.4 mg 24 4-04 capsule by ity of hr capsule 00:00: mouth [place] 00 daily. Medical Branch tamsulosin 2022-0 Yes [id number] .4mg Take 1 [facility] [place] 0.4 mg 24 4-04 capsule by ity of hr capsule 00:00: mouth [place] 00 daily. Medical Branch tamsulosin 2022-0 Yes [id number] .4mg Take 1 [facility] [place] 0.4 mg 24 4-04 capsule by ity of hr capsule 00:00: mouth [place] 00 daily. Medical Branch tamsulosin 2022-0 Yes [id number] .4mg Take 1 [facility] [place] 0.4 mg 24 4-04 capsule by ity of hr capsule 00:00: mouth [place] 00 daily. Medical Branch tamsulosin 2022-0 Yes [id number] .4mg Take 1 [facility] [place] 0.4 mg 24 4-04 capsule by ity of hr capsule 00:00: mouth [place] 00 daily. Medical Branch tamsulosin 2022-0 Yes [id number] .4mg Take 1 [facility] [place] 0.4 mg 24 4-04 capsule by ity of hr capsule 00:00: mouth [place] 00 daily. Medical Branch tamsulosin 2022-0 Yes [id number] .4mg Take 1 [facility] [place] 0.4 mg 24 4-04 capsule by ity of hr capsule 00:00: mouth [place] 00 daily. Medical Branch tamsulosin 2022-0 Yes [id number] .4mg Take 1 [facility] [place] 0.4 mg 24 4-04 capsule by ity of hr capsule 00:00: mouth [place] 00 daily. Medical Branch tamsulosin 2022-0 Yes [id number] .4mg Take 1 [facility] [place] 0.4 mg 24 4-04 capsule by ity of hr capsule 00:00: mouth [place] 00 daily. Medical Branch tamsulosin 2022-0 Yes [id number] .4mg Take 1 [facility] [place] 0.4 mg 24 4-04 capsule by ity of hr capsule 00:00: mouth [place] 00 daily. Medical Branch tamsulosin 2022-0 Yes [id number] .4mg Take 1 [facility] [place] 0.4 mg 24 4-04 capsule by ity of hr capsule 00:00: mouth [place] 00 daily. Medical Branch tamsulosin 2022-0 Yes [id number] .4mg Take 1 [facility] [place] 0.4 mg 24 4-04 capsule by ity of hr capsule 00:00: mouth [place] 00 daily. Medical Branch tamsulosin 2022-0 Yes [id number] .4mg Take 1 [facility] [place] 0.4 mg 24 4-04 capsule by ity of hr capsule 00:00: mouth [place] 00 daily. Medical Branch tamsulosin 2022-0 Yes [id number] .4mg Take 1 [facility] [place] 0.4 mg 24 4-04 capsule by ity of hr capsule 00:00: mouth [place] 00 daily. Medical Branch tamsulosin 2022-0 Yes [id number] .4mg Take 1 [facility] [place] 0.4 mg 24 4-04 capsule by ity of hr capsule 00:00: mouth [place] 00 daily. Medical Branch tamsulosin 2022-0 Yes [id number] .4mg Take 1 [facility] [place] 0.4 mg 24 4-04 capsule by ity of hr capsule 00:00: mouth [place] 00 daily. Medical Branch tamsulosin 2022-0 Yes [id number] .4mg Take 1 [facility] [place] 0.4 mg 24 4-04 capsule by ity of hr capsule 00:00: mouth [place] 00 daily. Medical Branch tamsulosin 2022-0 Yes [id number] .4mg Take 1 [facility] [place] 0.4 mg 24 4-04 capsule by ity of hr capsule 00:00: mouth [place] 00 daily. Medical Branch tamsulosin 2022-0 Yes [id number] .4mg Take 1 [facility] [place] 0.4 mg 24 4-04 capsule by ity of hr capsule 00:00: mouth [place] 00 daily. Medical Branch tamsulosin Yes [id number] .4mg Take 1 Un [place] 0.4 mg 24 4-04 capsule by ity of hr capsule 00:00: mouth [place] 00 daily. Medical Branch dicyclomine Yes 10mg Take 10 mg Jose Rafael (BENTYL) 10 3-14 by mouth [facility] capsule 14:45: every 6 of 20 hours. Medicin e ALBUTEROL Yes Take by [facility] SULFATE OR 3-14 mouth. [place] 14:45: of 20 Medicin e albuterol Yes 1{ampul Take 1 [place] [facility] (PROVENTIL) 3-14 e} Ampule by [facility] (2.5 mg/3 14:45: nebulizati of mL) 0.083% 20 on as Medicin nebulizer needed. e solution methocarbam Yes TAKE 1 [facility] 750 mg 3-14 TABLET BY ity o f tablet 00:00: MOUTH [place] 00 EVERY 8 Medical HOURS Branch NEEDED (SPASM). methocarbam Yes TAKE 1 [facility] oL 750 mg 3-14 TABLET BY ity o f tablet 00:00: MOUTH [place] 00 EVERY 8 Medical HOURS Branch NEEDED (SPASM). methocarbam 0 Yes TAKE 1 [facility] oL 750 mg 3-14 TABLET BY ity o f tablet 00:00: MOUTH [place] 00 EVERY 8 Medical HOURS Branch NEEDED (SPASM). methocarbam Yes TAKE 1 [facility] oL 750 mg 3-14 TABLET BY ity o f tablet 00:00: MOUTH [place] 00 EVERY 8 Medical HOURS Branch NEEDED (SPASM). methocarbam Yes TAKE 1 [facility] oL 750 mg 3-14 TABLET BY ity o f tablet 00:00: MOUTH [place] 00 EVERY 8 Medical HOURS Branch NEEDED (SPASM). methocarbam 2021-0 Yes TAKE 1 [facility] oL 750 mg 3-14 TABLET BY ity o f tablet 00:00: MOUTH [place] 00 EVERY 8 Medical HOURS Branch NEEDED (SPASM). methocarbam 2021-0 Yes TAKE 1 [facility] ers oL 750 mg 3-14 TABLET BY ity o f tablet 00:00: MOUTH [place] 00 EVERY 8 Medical HOURS Branch NEEDED (SPASM). methocarbam 2021-0 Yes TAKE 1 [facility] ers oL 750 mg 3-14 TABLET BY ity o f tablet 00:00: MOUTH [place] 00 EVERY 8 Medical HOURS Branch NEEDED (SPASM). methocarbam 2021-0 Yes TAKE 1 [facility] ers oL 750 mg 3-14 TABLET BY ity o f tablet 00:00: MOUTH [place] 00 EVERY 8 Medical HOURS Branch NEEDED (SPASM). methocarbam 2021-0 Yes TAKE 1 [facility] oL 750 mg 3-14 TABLET BY ity o f tablet 00:00: MOUTH [place] 00 EVERY 8 Medical HOURS Branch NEEDED (SPASM). methocarbam 2021-0 Yes TAKE 1 [facility] ers oL 750 mg 3-14 TABLET BY ity o f tablet 00:00: MOUTH [place] 00 EVERY 8 Medical HOURS Branch NEEDED (SPASM). methocarbam 2021-0 Yes TAKE 1 [facility] oL 750 mg 3-14 TABLET BY ity o f tablet 00:00: MOUTH [place] 00 EVERY 8 Medical HOURS Branch NEEDED (SPASM). methocarbam 2021-0 Yes TAKE 1 [facility] oL 750 mg 3-14 TABLET BY ity o f tablet 00:00: MOUTH [place] 00 EVERY 8 Medical HOURS Branch NEEDED (SPASM). methocarbam 2021-0 Yes TAKE 1 [facility] oL 750 mg 3-14 TABLET BY ity o f tablet 00:00: MOUTH [place] 00 EVERY 8 Medical HOURS Branch NEEDED (SPASM). methocarbam 2021-0 Yes TAKE 1 [facility] ers oL 750 mg 3-14 TABLET BY ity o f tablet 00:00: MOUTH [place] 00 EVERY 8 Medical HOURS Branch NEEDED (SPASM). methocarbam 2021-0 Yes TAKE 1 [facility] oL 750 mg 3-14 TABLET BY ity o f tablet 00:00: MOUTH [place] 00 EVERY 8 Medical HOURS Branch NEEDED (SPASM). methocarbam 2021-0 Yes TAKE 1 [facility] oL 750 mg 3-14 TABLET BY ity o f tablet 00:00: MOUTH [place] 00 EVERY 8 Medical HOURS Branch NEEDED (SPASM). methocarbam 2021-0 Yes TAKE 1 [facility] 3-14 TABLET BY [facility] o f tablet 00:00: MOUTH [place] 00 EVERY 8 [facility] HOURS [facility] NEEDED (SPASM). methocarbam 2021-0 Yes TAKE 1 [facility] 750 mg 3-14 TABLET BY [facility] o [facility] tablet 00:00: MOUTH [place] 00 EVERY 8 [facility] HOURS [facility] NEEDED (SPASM). methocarbam 2021-0 Yes TAKE 1 [facility] 750 mg 3-14 TABLET BY [facility] tablet 00:00: MOUTH [place] 00 EVERY 8 [facility] HOURS [facility] NEEDED (SPASM). methocarbam 2021-0 Yes TAKE 1 [facility] 750 mg 3-14 TABLET BY [facility] tablet 00:00: MOUTH [place] 00 EVERY 8 [facility] HOU[facility] NEEDED (SPASM). methocarbam 2021-0 Yes TAKE 1 [facility] 750 mg 3-14 TABLET BY [facility] tablet 00:00: MOUTH [place] 00 EVERY 8 [facility] HOURS [facility] NEEDED (SPASM). methocarbam 2021-0 Yes TAKE 1 [facility] 750 mg 3-14 TABLET BY [facility] tablet 00:00: MOUTH [place] 00 EVERY 8 [facility] HOU[facility] NEEDED (SPASM). methocarbam 2021-0 Yes TAKE 1 [facility] 750 mg 3-14 TABLET BY [facility] tablet 00:00: MOUTH [place] 00 EVERY 8 [facility] HOU[facility] NEEDED (SPASM). methocarbam 2021-0 Yes TAKE 1 [facility] 750 mg 3-14 TABLET BY [facility] tablet 00:00: MOUTH [place] 00 EVERY 8 [facility] HOU[facility] NEEDED (SPASM). methocarbam 2021-0 Yes TAKE 1 [facility] 750 mg 3-14 TABLET BY [facility] tablet 00:00: MOUTH [place] 00 EVERY 8 [facility] HOU[facility] NEEDED (SPASM). methocarbam 2021-0 Yes TAKE 1 [facility] 750 mg 3-14 TABLET BY [facility] tablet 00:00: MOUTH [place] 00 EVERY 8 [facility] HOU[facility] NEEDED (SPASM). methocarbam 2021-0 Yes TAKE 1 [facility] 750 mg 3-14 TABLET BY [facility] tablet 00:00: MOUTH [place] 00 EVERY 8 [facility] HOU[facility] NEEDED (SPASM). methocarbam 2021-0 Yes TAKE 1 [facility] 750 mg 3-14 TABLET BY [facility] tablet 00:00: MOUTH [place] 00 EVERY 8 [facility] HOURS [facility] NEEDED (SPASM). methocarbam 2021-0 Yes TAKE 1 [facility] 750 mg 3-14 TABLET BY [facility] tablet 00:00: MOUTH [place] 00 EVERY 8 [facility] HOU[facility] NEEDED (SPASM). methocarbam 2021-0 Yes TAKE 1 [facility] 750 mg 3-14 TABLET BY [facility] tablet 00:00: MOUTH [place] 00 EVERY 8 [facility] HOU[facility] NEEDED (SPASM). methocarbam 2021-0 Yes TAKE 1 [facility] 750 mg 3-14 TABLET BY [facility] tablet 00:00: MOUTH [place] 00 EVERY 8 [facility] HOURS [facility] NEEDED (SPASM). methocarbam 2021-0 Yes TAKE 1 [facility] 750 mg 3-14 TABLET BY [facility] o [facility] tablet 00:00: MOUTH [place] 00 EVERY 8 [facility] HOU[facility] NEEDED (SPASM). methocarbam 2021-0 Yes TAKE 1 [facility] 750 mg 3-14 TABLET BY [facility] o [facility] tablet 00:00: MOUTH [place] 00 EVERY 8 [facility] HOURS [facility] NEEDED (SPASM). methocarbam 2021-0 Yes TAKE 1 [facility] 750 mg 3-14 TABLET BY [facility] tablet 00:00: MOUTH [place] 00 EVERY 8 [facility] HOU[facility] NEEDED (SPASM). methocarbam 2021-0 Yes TAKE 1 [facility] 750 mg 3-14 TABLET BY [facility] tablet 00:00: MOUTH [place] 00 EVERY 8 [facility] HOU[facility] NEEDED (SPASM). methocarbam 2021-0 Yes TAKE 1 [facility] 750 mg 3-14 TABLET BY [facility] o [facility] tablet 00:00: MOUTH [place] 00 EVERY 8 [facility] HOU[facility] NEEDED (SPASM). methocarbam 2021-0 Yes TAKE 1 [facility] 750 mg 3-14 TABLET BY [facility] o [facility] tablet 00:00: MOUTH [place] 00 EVERY 8 [facility] HOURS [facility] NEEDED (SPASM). methocarbam 2021-0 Yes TAKE 1 [facility] 750 mg 3-14 TABLET BY [facility] o [facility] tablet 00:00: MOUTH [place] 00 EVERY 8 [facility] HOURS [facility] NEEDED (SPASM). methocarbam 2021-0 Yes TAKE 1 [facility] 750 mg 3-14 TABLET BY [facility] o [facility] tablet 00:00: MOUTH [place] 00 EVERY 8 [facility] HOURS [facility] NEEDED (SPASM). methocarbam 2021-0 Yes TAKE 1 [facility] 750 mg 3-14 TABLET BY [facility] o f tablet 00:00: MOUTH [place] 00 EVERY 8 [facility] HOURS [facility] NEEDED (SPASM). methocarbam 2021-0 Yes TAKE 1 [facility] 750 mg 3-14 TABLET BY [facility] o f tablet 00:00: MOUTH [place] 00 EVERY 8 [facility] HOURS [facility] NEEDED (SPASM). methocarbam 2021-0 Yes TAKE 1 [facility] 750 mg 3-14 TABLET BY [facility] o [facility] tablet 00:00: MOUTH [place] 00 EVERY 8 [facility] HOURS [facility] NEEDED (SPASM). methocarbam 2021-0 Yes TAKE 1 [facility] 750 mg 3-14 TABLET BY [facility] o [facility] tablet 00:00: MOUTH [place] 00 EVERY 8 [facility] HOURS [facility] NEEDED (SPASM). methocarbam 2021-0 Yes TAKE 1 [facility] 750 mg 3-14 TABLET BY [facility] o [facility] tablet 00:00: MOUTH [place] 00 EVERY 8 [facility] HOURS [facility] NEEDED (SPASM). methocarbam 2021-0 Yes TAKE 1 [facility] 750 mg 3-14 TABLET BY [facility] o f tablet 00:00: MOUTH [place] 00 EVERY 8 [facility] HOURS [facility] NEEDED (SPASM). methocarbam 2021-0 Yes TAKE 1 [facility] 750 mg 3-14 TABLET BY [facility] o f tablet 00:00: MOUTH [place] 00 EVERY 8 [facility] HOURS [facility] NEEDED (SPASM). methocarbam 2021-0 Yes TAKE 1 [facility] 750 mg 3-14 TABLET BY [facility] o [facility] tablet 00:00: MOUTH [place] 00 EVERY 8 [facility] HOURS [facility] NEEDED (SPASM). methocarbam 2021-0 Yes TAKE 1 [facility] 750 mg 3-14 TABLET BY [facility] o [facility] tablet 00:00: MOUTH [place] 00 EVERY 8 [facility] HOURS [facility] NEEDED (SPASM). methocarbam 2021-0 Yes TAKE 1 [facility] 750 mg 3-14 TABLET BY [facility] o f tablet 00:00: MOUTH [place] 00 EVERY 8 [facility] HOURS [facility] NEEDED (SPASM). methocarbam 2021-0 Yes TAKE 1 [facility] 750 mg 3-14 TABLET BY [facility] o [facility] tablet 00:00: MOUTH [place] 00 EVERY 8 [facility] HOURS [facility] NEEDED (SPASM). methocarbam 2021-0 Yes TAKE 1 [facility] 750 mg 3-14 TABLET BY [facility] o [facility] tablet 00:00: MOUTH [place] 00 EVERY 8 [facility] HOURS [facility] NEEDED (SPASM). methocarbam 2021-0 Yes TAKE 1 [facility] 750 mg 3-14 TABLET BY [facility] o [facility] tablet 00:00: MOUTH [place] 00 EVERY 8 [facility] HOURS [facility] NEEDED (SPASM). methocarbam 2021-0 Yes TAKE 1 [facility] 750 mg 3-14 TABLET BY [facility] o [facility] tablet 00:00: MOUTH [place] 00 EVERY 8 [facility] HOURS [facility] NEEDED (SPASM). methocarbam 2021-0 Yes TAKE 1 [facility] 750 mg 3-14 TABLET BY [facility] o [facility] tablet 00:00: MOUTH [place] 00 EVERY 8 [facility] HOURS [facility] NEEDED (SPASM). methocarbam 2021-0 Yes TAKE 1 [facility] 750 mg 3-14 TABLET BY [facility] tablet 00:00: MOUTH [place] 00 EVERY 8 [facility] HOURS [facility] NEEDED (SPASM). methocarbam 2021-0 Yes TAKE 1 [facility] 750 mg 3-14 TABLET BY [facility] o [facility] tablet 00:00: MOUTH [place] 00 EVERY 8 [facility] HOURS [facility] NEEDED (SPASM). methocarbam 2021-0 Yes TAKE 1 [facility] 750 mg 3-14 TABLET BY [facility] o [facility] tablet 00:00: MOUTH [place] 00 EVERY 8 [facility] HOURS [facility] NEEDED (SPASM). methocarbam 2021-0 Yes TAKE 1 [facility] 750 mg 3-14 TABLET BY [facility] o [facility] tablet 00:00: MOUTH [place] 00 EVERY 8 [facility] HOURS [facility] NEEDED (SPASM). methocarbam 2021-0 Yes TAKE 1 [facility] 750 mg 3-14 TABLET BY [facility] o [facility] tablet 00:00: MOUTH [place] 00 EVERY 8 [facility] HOURS [facility] NEEDED (SPASM). methocarbam 2021-0 Yes TAKE 1 [facility] 750 mg 3-14 TABLET BY [facility] tablet 00:00: MOUTH [place] 00 EVERY 8 [facility] HOURS [facility] NEEDED (SPASM). methocarbam 2021-0 Yes TAKE 1 [facility] 750 mg 3-14 TABLET BY [facility] o [facility] tablet 00:00: MOUTH [place] 00 EVERY 8 [facility] HOURS [facility] NEEDED (SPASM). methocarbam 2021-0 Yes TAKE 1 [facility] 750 mg 3-14 TABLET BY [facility] o f tablet 00:00: MOUTH [place] 00 EVERY 8 [facility] HOURS [facility] NEEDED (SPASM). methocarbam 2021-0 Yes TAKE 1 [facility] 750 mg 3-14 TABLET BY [facility] o [facility] tablet 00:00: MOUTH [place] 00 EVERY 8 [facility] HOURS [facility] NEEDED (SPASM). methocarbam 2021-0 Yes TAKE 1 [facility] 750 mg 3-14 TABLET BY [facility] o [facility] tablet 00:00: MOUTH [place] 00 EVERY 8 [facility] HOURS [facility] NEEDED (SPASM). methocarbam 2021-0 Yes TAKE 1 [facility] 750 mg 3-14 TABLET BY [facility] o [facility] tablet 00:00: MOUTH [place] 00 EVERY 8 [facility] HOURS [facility] NEEDED (SPASM). methocarbam 2021-0 Yes TAKE 1 [facility] 750 mg 3-14 TABLET BY [facility] o [facility] tablet 00:00: MOUTH [place] 00 EVERY 8 [facility] HOURS [facility] NEEDED (SPASM). methocarbam 2021-0 Yes TAKE 1 [facility] 750 mg 3-14 TABLET BY [facility] o [facility] tablet 00:00: MOUTH [place] 00 EVERY 8 [facility] HOURS [facility] NEEDED (SPASM). methocarbam 2021-0 Yes TAKE 1 [facility] 750 mg 3-14 TABLET BY [facility] o [facility] tablet 00:00: MOUTH [place] 00 EVERY 8 [facility] HOURS [facility] NEEDED (SPASM). methocarbam 2021-0 Yes TAKE 1 [facility] 750 mg 3-14 TABLET BY [facility] o [facility] tablet 00:00: MOUTH [place] 00 EVERY 8 [facility] HOURS [facility] NEEDED (SPASM). methocarbam 2021-0 Yes TAKE 1 [facility] 750 mg 3-14 TABLET BY [facility] o [facility] tablet 00:00: MOUTH [place] 00 EVERY 8 [facility] HOURS [facility] NEEDED (SPASM). methocarbam 2021-0 Yes TAKE 1 [facility] 750 mg 3-14 TABLET BY [facility] o f tablet 00:00: MOUTH [place] 00 EVERY 8 [facility] HOURS [facility] NEEDED (SPASM). methocarbam 2021-0 Yes TAKE 1 [facility] 750 mg 3-14 TABLET BY [facility] o [facility] tablet 00:00: MOUTH [place] 00 EVERY 8 [facility] HOURS [facility] NEEDED (SPASM). methocarbam 2021-0 Yes TAKE 1 [facility] 750 mg 3-14 TABLET BY [facility] o [facility] tablet 00:00: MOUTH [place] 00 EVERY 8 [facility] HOURS [facility] NEEDED (SPASM). methocarbam 2021-0 Yes TAKE 1 [facility] 750 mg 3-14 TABLET BY [facility] o f tablet 00:00: MOUTH [place] 00 EVERY 8 [facility] HOURS [facility] NEEDED (SPASM). methocarbam 2021-0 Yes TAKE 1 [facility] 750 mg 3-14 TABLET BY [facility] o [facility] tablet 00:00: MOUTH [place] 00 EVERY 8 [facility] HOURS [facility] NEEDED (SPASM). methocarbam 2021-0 Yes TAKE 1 [facility] 750 mg 3-14 TABLET BY [facility] o f tablet 00:00: MOUTH [place] 00 EVERY 8 [facility] HOURS [facility] NEEDED (SPASM). methocarbam 2021-0 Yes TAKE 1 [facility] 750 mg 3-14 TABLET BY ity o f tablet 00:00: MOUTH [place] 00 EVERY 8 [facility] HOURS [facility] NEEDED (SPASM). methocarbam 2021-0 Yes TAKE 1 [facility] 750 mg 3-14 TABLET BY ity o f tablet 00:00: MOUTH [place] 00 EVERY 8 [facility] HOURS [facility] NEEDED (SPASM). methocarbam 2021-0 Yes TAKE 1 [facility] 750 mg 3-14 TABLET BY ity o f tablet 00:00: MOUTH [place] 00 EVERY 8 [facility] HOURS [facility] NEEDED (SPASM). methocarbam 2021-0 Yes TAKE 1 [facility] 750 mg 3-14 TABLET BY ity o f tablet 00:00: MOUTH [place] 00 EVERY 8 [facility] HOURS [facility] NEEDED (SPASM). methocarbam 2021-0 Yes TAKE 1 [facility] 750 mg 3-14 TABLET BY ity o f tablet 00:00: MOUTH [place] 00 EVERY 8 [facility] HOURS [facility] NEEDED (SPASM). methocarbam 2021-0 Yes TAKE 1 [facility] 750 mg 3-14 TABLET BY ity o f tablet 00:00: MOUTH [place] 00 EVERY 8 [facility] HOURS [facility] NEEDED (SPASM). methocarbam 2021-0 Yes TAKE 1 [facility] 750 mg 3-14 TABLET BY ity o f tablet 00:00: MOUTH [place] 00 EVERY 8 [facility] HOURS [facility] NEEDED (SPASM). methocarbam 2021-0 Yes TAKE 1 [facility] 750 mg 3-14 TABLET BY ity o f tablet 00:00: MOUTH [place] 00 EVERY 8 [facility] HOURS [facility] NEEDED (SPASM). methocarbam 2021-0 Yes TAKE 1 [facility] 750 mg 3-14 TABLET BY ity o f tablet 00:00: MOUTH [place] 00 EVERY 8 [facility] HOURS [facility] NEEDED (SPASM). methocarbam 2021-0 Yes TAKE 1 [facility] 750 mg 3-14 TABLET BY ity o f tablet 00:00: MOUTH [place] 00 EVERY 8 [facility] HOURS [facility] NEEDED (SPASM). methocarbam 2021-0 Yes TAKE 1 [facility] 750 mg 3-14 TABLET BY ity o f tablet 00:00: MOUTH [place] 00 EVERY 8 [facility] HOURS [facility] NEEDED (SPASM). methocarbam 2021-0 Yes TAKE 1 [facility] 750 mg 3-14 TABLET BY ity o f tablet 00:00: MOUTH [place] 00 EVERY 8 [facility] HOURS [facility] NEEDED (SPASM). methocarbam 2021-0 Yes TAKE 1 [facility] 750 mg 3-14 TABLET BY ity o f tablet 00:00: MOUTH [place] 00 EVERY 8 [facility] HOURS [facility] NEEDED (SPASM). methocarbam 2021-0 Yes TAKE 1 [facility] 750 mg 3-14 TABLET BY ity o f tablet 00:00: MOUTH [place] 00 EVERY 8 Medical HOURS [facility] NEEDED (SPASM). methocarbam 2021-0 Yes TAKE 1 [facility] 750 mg 3-14 TABLET BY ity o f tablet 00:00: MOUTH [place] 00 EVERY 8 Medical HOURS [facility] NEEDED (SPASM). methocarbam 2021-0 Yes TAKE 1 [facility] 750 mg 3-14 TABLET BY ity o f tablet 00:00: MOUTH [place] 00 EVERY 8 Medical HOURS [facility] NEEDED (SPASM). methocarbam 2021-0 Yes TAKE 1 [facility] 750 mg 3-14 TABLET BY ity o f tablet 00:00: MOUTH [place] 00 EVERY 8 [facility] HOURS [facility] NEEDED (SPASM). methocarbam 2021-0 Yes TAKE 1 [facility] 750 mg 3-14 TABLET BY ity o f tablet 00:00: MOUTH [place] 00 EVERY 8 Medical HOURS [facility] NEEDED (SPASM). methocarbam 2021-0 Yes TAKE 1 [facility] 750 mg 3-14 TABLET BY ity o f tablet 00:00: MOUTH [place] 00 EVERY 8 Medical HOURS [facility] NEEDED (SPASM). methocarbam 2021-0 Yes TAKE 1 [facility] 750 mg 3-14 TABLET BY ity o f tablet 00:00: MOUTH [place] 00 EVERY 8 Medical HOURS [facility] NEEDED (SPASM). methocarbam 2021-0 Yes TAKE 1 [facility] 750 mg 3-14 TABLET BY ity o f tablet 00:00: MOUTH [place] 00 EVERY 8 Medical HOURS [facility] NEEDED (SPASM). methocarbam 2021-0 Yes TAKE 1 [facility] 750 mg 3-14 TABLET BY ity o f tablet 00:00: MOUTH [place] 00 EVERY 8 Medical HOURS [facility] NEEDED (SPASM). methocarbam 2021-0 Yes TAKE 1 [facility] 750 mg 3-14 TABLET BY ity o f tablet 00:00: MOUTH [place] 00 EVERY 8 Medical HOURS [facility] NEEDED (SPASM). methocarbam 2021-0 Yes TAKE 1 [facility] 750 mg 3-14 TABLET BY ity o f tablet 00:00: MOUTH [place] 00 EVERY 8 Medical HOURS [facility] NEEDED (SPASM). methocarbam Yes TAKE 1 [facility] 750 mg 3-14 TABLET BY ity o f tablet 00:00: MOUTH [place] 00 EVERY 8 Medical HOURS [facility] NEEDED (SPASM). methocarbam Yes TAKE 1 [facility] 750 mg 3-14 TABLET BY ity o f tablet 00:00: MOUTH [place] 00 EVERY 8 Medical HOURS [facility] NEEDED (SPASM). methocarbam Yes TAKE 1 [facility] 750 mg 3-14 TABLET BY ity o f tablet 00:00: MOUTH [place] 00 EVERY 8 Medical HOURS [facility] NEEDED (SPASM). methocarbam Yes TAKE 1 [facility] 750 mg 3-14 TABLET BY ity o f tablet 00:00: MOUTH [place] 00 EVERY 8 Medical HOURS [facility] NEEDED (SPASM). methocarbam Yes TAKE 1 [facility] 750 mg 3-14 TABLET BY ity o f tablet 00:00: MOUTH [place] 00 EVERY 8 Medical HOURS Branch NEEDED (SPASM). tramadol Yes [id number] 1{tbl} Take 1 [facility] (ULTRAM) 50 3-14 Tablet by [facility] MG tablet 00:00: mouth of 00 every 4 Medicin hours as e needed for Pain (max 6/dqy). methocarbam Yes [id number] 750mg Take 1 [facility] ol 3-14 Tablet by [place] (ROBAXIN-75 00:00: mouth of 0) 750 MG 00 every 8 Medicin tablet hours as e needed (spasm). topiramate Yes [id number] TAKE 1 [facility] (Topamax) 2-13 TABLET BY [facility]alt [facility] 25 MG 00:00: MOUTH tablet 00 TWICE A DAY cyanocobala Yes [id number] INJECT 1ML [facility] min 1000 1-31 INTRAMUSCU Colle ge MCG/ML 00:00: LARLY of injection 00 EVERY 14 Medici n DAYS FOR 3 e MONTHS THEN ONCE PER MONTH THEREAFTER tramadol 2022- No [id number] 1{tbl} Take 1 [facility] (ULTRAM) 50 1-26 03-14 Tablet by [facility] MG tablet 00:00: 00:00 mouth of 00 :00 every 8 Medicin hours as e needed for Pain. dicyclomine 2020-11 Yes 10mg Take 10 mg [facility] (BENTYL) 10 2-13 by mouth [facility] MG capsule 15:06: every 6 of 51 hours. Medicin e Nystatin 2020-11 Yes [facility] POWD 2-13 [place] 15:06: of 51 Medicin e Nystatin 2020-11 Yes [facility] POWD 2-13 [place] 15:06: of 51 Medicin e ALBUTEROL 2020-11 Yes Take by [facility] [facility] SULFATE OR 2-13 mouth. [place] 15:03: of 21 Medicin e albuterol 2020-11 Yes 1{ampul Take 1 [place] [facility] (PROVENTIL) 2-13 e} Ampule by Col [facility] (2.5 mg/3 15:03: nebulizati of mL) 0.083% 21 on as Medicin nebulizer needed. e solution MAGNESIUM 2020-11 Yes Take by [facility] CITRATE OR 2-13 mouth as [facility] 15:03: needed. of 21 Medicin e VENLAFAXINE 2020-11 Yes Take by [place] [facility] HCL OR 2-13 mouth. [place] 15:03: of 21 Medicin e sumatriptan 2020-11 Yes 50mg Take 50 mg [facility] (IMITREX) 2-13 by mouth Colleg e 50 MG 15:03: once as of tablet 21 needed for Medicin Migraine. e naproxen 2020-11 Yes 500mg Take 500 [facility] (NAPROSYN) 2-13 mg by [place] 500 MG 15:03: mouth 2 of tablet 21 times Medicin daily e (with meals). MAGNESIUM 2020-11 Yes Take by [facility] CITRATE OR 2-13 mouth as [facility] 15:03: needed. of 21 Medicin e VENLAFAXINE 2020-11 Yes Take by [place] [facility] HCL OR 2-13 mouth. [facility] 15:03: of 21 Medicin e sumatriptan 2020-11 Yes 50mg Take 50 mg [facility] (IMITREX) 2-13 by mouth [facility] e 50 MG 15:03: once as of tablet 21 needed for Medicin Migraine. e naproxen 2020-11 Yes 500mg Take 500 [facility] (NAPROSYN) 2-13 mg by [place] 500 MG 15:03: mouth 2 of tablet 21 times Medicin daily e (with meals). Promethazin 2020-11- No Take by [place] [facility] HCl 2- 12-13 mouth. [place] (PHENERGAN 15:03: 00:00 of OR) 21 :00 Medicin e Sucralfate 2020-11- No Take by [place] [facility] (CARAFATE 2-13 12-13 mouth. [place] OR) 15:03: 00:00 of 21 :00 Medicin e oxybutynin 2020-11- No 5mg Take 5 mg [facility] (DITROPAN) 2-13 12-13 by mouth [facility] 5 MG tablet 15:03: 00:00 two times of 21 :00 daily. Medicin e baclofen 2020-11 Yes [id number] TAKE 1 [facility] (LIORESAL) 2-13 TABLET BY [facility] 10 MG 00:00: MOUTH of tablet 00 THREE Medicin TIMES A e DAY baclofen 2020-11 Yes [id number] TAKE 1 [place] [facility] (LIORESAL) 2-13 TABLET BY [facility] 10 MG 00:00: MOUTH of tablet 00 THREE Medicin TIMES A e DAY baclofen 2020-11 Yes [id number] TAKE 1 [place] [facility] (LIORESAL) 2-13 TABLET BY [facility] 10 MG 00:00: MOUTH of tablet 00 THREE Medicin TIMES A e DAY pregabalin 2020-11 Yes [id number] TAKE 1 [facility] (LYRICA) 2-12 CAPSULE BY [facility] 100 MG 00:00: MOUTH of capsule 00 THREE Medicin TIMES A e DAY pregabalin 2020-11 Yes [id number] TAKE 1 [facility] (LYRICA) 2-12 CAPSULE BY [facility] 100 MG 00:00: MOUTH of capsule 00 THREE Medicin TIMES A e DAY cyanocobala 2020-11 Yes [id number] INJECT 1ML [facility] min 1000 1-24 INTRAMUSCU [facility]le [facility] MCG/ML 00:00: LARLY of injection 00 EVERY 14 Medici n DAYS FOR 3 e MONTHS THEN ONCE PER MONTH THEREAFTER topiramate 2020-11 Yes [facility] 25 mg 1-19 ity of tablet 00:00: [address] topiramate 2020-11 Yes Univers 25 mg 1-19 ity of tablet 00:00: [address] topiramate 2020-11 Yes Univers 25 mg 1-19 ity of tablet 00:00: [address] topiramate 2020- Yes [facility] 25 mg 1-19 ity of tablet 00:00: [address] topiramate 2020- Yes Univers 25 mg 1-19 ity of tablet 00:00: [address] topiramate 2020- Yes Univers 25 mg 1-19 ity of tablet 00:00: [address] topiramate 2020- Yes Univers 25 mg 1-19 ity of tablet 00:00: [address] topiramate 2020- Yes Univers 25 mg 1-19 ity of tablet 00:00: [address] topiramate 2020- Yes Univers 25 mg 1-19 ity of tablet 00:00: [address] topiramate 2020- Yes Univers 25 mg 1-19 ity of tablet 00:00: [address] topiramate 2020- Yes Univers 25 mg 1-19 ity of tablet 00:00: [address] topiramate 2020- Yes [facility] 25 mg 1-19 ity of tablet 00:00: [address] topiramate 2020- Yes Univers 25 mg 1-19 ity of tablet 00:00: [address] topiramate 2020- Yes Univers 25 mg 1-19 ity of tablet 00:00: [address] topiramate 2020- Yes Univers 25 mg 1-19 ity of tablet 00:00: [address] topiramate 2020- Yes Univers 25 mg 1-19 ity of tablet 00:00: [address] topiramate 2020- Yes Univers 25 mg 1-19 ity of tablet 00:00: [address] topiramate 2020- Yes Univers 25 mg 1-19 ity of tablet 00:00: [address] topiramate 2020- Yes Univers 25 mg 1-19 ity of tablet 00:00: [address] topiramate 2020- Yes Univers 25 mg 1-19 ity of tablet 00:00: [address] topiramate 2020- Yes Univers 25 mg 1-19 ity of tablet 00:00: [address] topiramate 2020-1 Yes Univers 25 mg 1-19 ity of tablet 00:00: [facility] topiramate 2020- Yes Univers 25 mg 1-19 ity of tablet 00:00: [address] topiramate 2020- Yes Univers 25 mg 1-19 ity of tablet 00:00: [address] topiramate 2020- Yes Univers 25 mg 1-19 ity of tablet 00:00: [address] topiramate 2020- Yes Univers 25 mg 1-19 ity of tablet 00:00: [address] topiramate 2020- Yes Univers 25 mg 1-19 ity of tablet 00:00: [address] topiramate 2020- Yes Univers 25 mg 1-19 ity of tablet 00:00: [address] topiramate 2020- Yes Univers 25 mg 1-19 ity of tablet 00:00: [address] topiramate 2020- Yes [facility] 25 mg 1-19 ity of tablet 00:00: [address] topiramate 2020- Yes Univers 25 mg 1-19 ity of tablet 00:00: [address] topiramate 2020- Yes Univers 25 mg 1-19 ity of tablet 00:00: [address] topiramate 2020- Yes [facility] 25 mg 1-19 ity of tablet 00:00: [address] topiramate 2020- Yes [facility] 25 mg 1-19 ity of tablet 00:00: [address] topiramate 2020- Yes Univers 25 mg 1-19 ity of tablet 00:00: [address] topiramate 2020- Yes Univers 25 mg 1-19 ity of tablet 00:00: [address] topiramate 2020- Yes Univers 25 mg 1-19 ity of tablet 00:00: [address] topiramate 2020- Yes [facility] 25 mg 1-19 ity of tablet 00:00: [address] topiramate 2020- Yes Univers 25 mg 1-19 ity of tablet 00:00: [address] topiramate 2020- Yes Univers 25 mg 1-19 ity of tablet 00:00: [address] topiramate 2020- Yes Univers 25 mg 1-19 ity of tablet 00:00: [address] topiramate 2020- Yes Univers 25 mg 1-19 ity of tablet 00:00: [address] topiramate 2020- Yes Univers 25 mg 1-19 ity of tablet 00:00: [address] topiramate 2020- Yes Univers 25 mg 1-19 ity of tablet 00:00: [address] topiramate 2020- Yes Univers 25 mg 1-19 ity of tablet 00:00: [address] topiramate 2020- Yes Univers 25 mg 1-19 ity of tablet 00:00: [address] topiramate 2020- Yes Univers 25 mg 1-19 ity of tablet 00:00: [address] topiramate 2020- Yes Univers 25 mg 1-19 ity of tablet 00:00: [address] topiramate 2020- Yes Univers 25 mg 1-19 ity of tablet 00:00: [address] topiramate 2020- Yes Univers 25 mg 1-19 ity of tablet 00:00: [address] topiramate 2020- Yes Univers 25 mg 1-19 ity of tablet 00:00: [address] topiramate 2020- Yes Univers 25 mg 1-19 ity of tablet 00:00: [address] topiramate 2020- Yes [facility] 25 mg 1-19 ity of tablet 00:00: [address] topiramate 2020- Yes [facility] 25 mg 1-19 ity of tablet 00:00: [address] topiramate 2020- Yes [facility] 25 mg 1-19 ity of tablet 00:00: [address] topiramate 2020- Yes [facility] 25 mg 1-19 ity of tablet 00:00: [address] topiramate 2020- Yes Univers 25 mg 1-19 ity of tablet 00:00: [address] topiramate 2020- Yes Univers 25 mg 1-19 ity of tablet 00:00: [address] topiramate 2020- Yes Univers 25 mg 1-19 ity of tablet 00:00: [address] topiramate 2020- Yes Univers 25 mg 1-19 ity of tablet 00:00: [address] topiramate 2020- Yes Univers 25 mg 1-19 ity of tablet 00:00: [address] topiramate 2020- Yes Univers 25 mg 1-19 ity of tablet 00:00: [address] topiramate 2020- Yes [facility] 25 mg 1-19 ity of tablet 00:00: [address] topiramate 2020- Yes [facility] 25 mg 1-19 ity of tablet 00:00: [address] topiramate 2020- Yes [facility] 25 mg 1-19 ity of tablet 00:00: [address] topiramate 2020- Yes [facility] 25 mg 1-19 ity of tablet 00:00: [address] topiramate 2020- Yes [facility] 25 mg 1-19 ity of tablet 00:00: [address] topiramate 2020- Yes [facility] 25 mg 1-19 ity of tablet 00:00: [address] topiramate 2020- Yes [facility] 25 mg 1-19 ity of tablet 00:00: [address] topiramate 2020- Yes [facility] 25 mg 1-19 ity of tablet 00:00: [address] topiramate 2020- Yes [facility] 25 mg 1-19 ity of tablet 00:00: [address] topiramate 2020- Yes [facility] 25 mg 1-19 ity of tablet 00:00: [address] topiramate 2020- Yes [facility] 25 mg 1-19 ity of tablet 00:00: [address] topiramate 2020- Yes [facility] 25 mg 1-19 ity of tablet 00:00: [address] topiramate 2020- Yes [facility] 25 mg 1-19 ity of tablet 00:00: [address] topiramate 2020- Yes [facility] 25 mg 1-19 ity of tablet 00:00: [address] topiramate 2020- Yes [facility] 25 mg 1-19 ity of tablet 00:00: [address] topiramate 2020- Yes [facility] 25 mg 1-19 ity of tablet 00:00: [address] topiramate 2020- Yes [facility] 25 mg 1-19 ity of tablet 00:00: [address] topiramate 2020-11 Yes [facility] 25 mg 1-19 ity of tablet 00:00: [address] topiramate 2020- Yes [facility] 25 mg 1-19 ity of tablet 00:00: [address] topiramate 2020- Yes [facility] 25 mg 1-19 ity of tablet 00:00: [address] topiramate 2020- Yes [facility] 25 mg 1-19 ity of tablet 00:00: [address] topiramate 2020- Yes [facility] 25 mg 1-19 ity of tablet 00:00: [address] topiramate 2020- Yes [facility] 25 mg 1-19 ity of tablet 00:00: [address] topiramate 2020- Yes [facility] 25 mg 1-19 ity of tablet 00:00: [address] topiramate 2020- Yes [facility] 25 mg 1-19 ity of tablet 00:00: [address] topiramate 2020- Yes [facility] 25 mg 1-19 ity of tablet 00:00: [address] topiramate 2020- Yes [facility] 25 mg 1-19 ity of tablet 00:00: [address] topiramate 2020- Yes [facility] 25 mg 1-19 ity of tablet 00:00: [address] topiramate 2020- Yes [facility] 25 mg 1-19 ity of tablet 00:00: [address] topiramate 2020- Yes [facility] 25 mg 1-19 ity of tablet 00:00: [address] topiramate 2020- Yes [facility] 25 mg 1-19 ity of tablet 00:00: [address] topiramate 2020- Yes [facility] 25 mg 1-19 ity of tablet 00:00: [address] topiramate 2020- Yes [facility] 25 mg 1-19 ity of tablet 00:00: [address] topiramate 2020- Yes [facility] 25 mg 1-19 ity of tablet 00:00: [address] topiramate 2020- Yes [facility] 25 mg 1-19 ity of tablet 00:00: [address] topiramate 2020- Yes [facility] 25 mg 1-19 ity of tablet 00:00: [address] topiramate 2020-11 Yes [facility] 25 mg 1-19 ity of tablet 00:00: [facility] topiramate 2020-11 Yes [facility] 25 mg 1-19 ity of tablet 00:00: [facility] topiramate 2020-11 Yes [facility] 25 mg 1-19 ity of tablet 00:00: [facility] topiramate 2020-11 Yes [facility] 25 mg 1-19 ity of tablet 00:00: [facility] topiramate 2020-11 Yes [facility] 25 mg 1-19 ity of tablet 00:00: [facility] topiramate 2020-11 Yes [facility] 25 mg 1-19 ity of tablet 00:00: [facility] topiramate 2020-11 Yes [facility] 25 mg 1-19 ity of tablet 00:00: [place] [facility] topiramate 2020-11 Yes [facility] 25 mg 1-19 ity of tablet 00:00: [place] [facility] sodium 2020-11 Yes Infuse [facility] chloride 0-19 into a Health 0.9 % 14:18: venous solution 32 catheter. azelastine 2020-11 Yes 1{spray Administer [facility] (Astelin) 0-19 } 1 spray Health 0.1 % nasal 14:18: into spray 32 affected nostril(s) . azelastine 2020-11 Yes 1{spray Administer [facility] (Astelin) 0-19 } 1 spray Health 0.1 % nasal 14:18: into spray 32 affected nostril(s) . sodium 2020-11 Yes Infuse [facility] chloride 0-19 into a Health 0.9 % 14:18: venous solution 32 catheter. azelastine 2020-11 Yes 1{spray Administer [facility] (Astelin) 0-19 } 1 spray Health 0.1 % nasal 14:18: into spray 32 affected nostril(s) . sodium 2020-11 Yes Infuse [facility] chloride 0-19 into a [facility] 0.9 % 14:18: venous solution 32 catheter. PAZEO 0.7 % 2020-[id number] 1 [facility] Drop 0-12 DROP IN ity of 00:00: EACH EYE ONCE DAILY [facility] PAZEO 0.7 % 2020-[id number] 1 [facility] Drop 0-12 DROP IN ity of 00:00: EACH EYE ONCE DAILY [facility] PAZEO 0.7 % 2020-[id number] 1 [facility] Drop 0-12 DROP IN ity of 00:00: EACH EYE [place] 00 ONCE DAILY [facility] PAZEO 0.7 % 2020-[id number] 1 [facility] Drop 0-12 DROP IN ity of 00:00: EACH EYE [place] 00 ONCE DAILY [facility] PAZEO 0.7 % 2020-[id number] 1 [facility] Drop 0-12 DROP IN ity of 00:00: EACH EYE [place] 00 ONCE DAILY [facility] PAZEO 0.7 % 2020-[id number] 1 [facility] Drop 0-12 DROP IN ity of 00:00: EACH EYE [place] 00 ONCE DAILY [facility] PAZEO 0.7 % 2020-[id number] 1 [facility] Drop 0-12 DROP IN ity of 00:00: EACH EYE [place] 00 ONCE DAILY [facility] PAZEO 0.7 % 2020-[id number] 1 [facility] Drop 0-12 DROP IN ity of 00:00: EACH EYE [place] 00 ONCE DAILY [facility] PAZEO 0.7 % 2020-[id number] 1 [facility] Drop 0-12 DROP IN ity of 00:00: EACH EYE [place] 00 ONCE DAILY [facility] PAZEO 0.7 % 2020-[id number] 1 [facility] Drop 0-12 DROP IN ity of 00:00: EACH EYE [place] 00 ONCE DAILY [facility] PAZEO 0.7 % 2020-[id number] 1 [facility] Drop 0-12 DROP IN ity of 00:00: EACH EYE [place] 00 ONCE DAILY [facility] PAZEO 0.7 % 2020-[id number] 1 [facility] Drop 0-12 DROP IN ity of 00:00: EACH EYE [place] 00 ONCE DAILY [facility] PAZEO 0.7 % 2020-[id number] 1 [facility] Drop 0-12 DROP IN ity of 00:00: EACH EYE [place] 00 ONCE DAILY [facility] PAZEO 0.7 % 2020-[id number] 1 [facility] Drop 0-12 DROP IN ity of 00:00: EACH EYE [place] 00 ONCE DAILY [facility] PAZEO 0.7 % 2020-[id number] 1 [facility] Drop 0-12 DROP IN ity of 00:00: EACH EYE [place] 00 ONCE DAILY [facility] PAZEO 0.7 % 2020-[id number] 1 [facility] Drop 0-12 DROP IN ity of 00:00: EACH EYE [place] 00 ONCE DAILY [facility] PAZEO 0.7 % 2020-[id number] 1 [facility] Drop 0-12 DROP IN ity of 00:00: EACH EYE [place] 00 ONCE DAILY [facility] PAZEO 0.7 % 2020-[id number] 1 [facility] Drop 0-12 DROP IN ity of 00:00: EACH EYE [place] 00 ONCE DAILY [facility] PAZEO 0.7 % 2020-[id number] 1 [facility] Drop 0-12 DROP IN ity of 00:00: EACH EYE [place] 00 ONCE DAILY [facility] PAZEO 0.7 % 2020-[id number] 1 [facility] Drop 0-12 DROP IN ity of 00:00: EACH EYE [place] 00 ONCE DAILY [facility] PAZEO 0.7 % 2020-[id number] 1 [facility] Drop 0-12 DROP IN ity of 00:00: EACH EYE [place] 00 ONCE DAILY [facility] PAZEO 0.7 % 2020-[id number] 1 [facility] Drop 0-12 DROP IN ity of 00:00: EACH EYE [place] 00 ONCE DAILY [facility] PAZEO 0.7 % 2020-[id number] 1 [facility] Drop 0-12 DROP IN ity of 00:00: EACH EYE [place] 00 ONCE DAILY [facility] PAZEO 0.7 % 2020-[id number] 1 [facility] Drop 0-12 DROP IN ity of 00:00: EACH EYE [place] 00 ONCE DAILY [facility] PAZEO 0.7 % 2020-[id number] 1 [facility] Drop 0-12 DROP IN ity of 00:00: EACH EYE [place] 00 ONCE DAILY [facility] PAZEO 0.7 % 2020-[id number] 1 [facility] Drop 0-12 DROP IN ity of 00:00: EACH EYE [place] 00 ONCE DAILY [facility] PAZEO 0.7 % 2020-[id number] 1 [facility] Drop 0-12 DROP IN ity of 00:00: EACH EYE [place] 00 ONCE DAILY [facility] PAZEO 0.7 % 2020-[id number] 1 [facility] Drop 0-12 DROP IN ity of 00:00: EACH EYE [place] 00 ONCE DAILY [facility] PAZEO 0.7 % 2020-[id number] 1 [facility] Drop 0-12 DROP IN ity of 00:00: EACH EYE [place] 00 ONCE DAILY [facility] PAZEO 0.7 % 2020-[id number] 1 [facility] Drop 0-12 DROP IN ity of 00:00: EACH EYE [place] 00 ONCE DAILY [facility] PAZEO 0.7 % 2020-[id number] 1 [facility] Drop 0-12 DROP IN ity of 00:00: EACH EYE [place] 00 ONCE DAILY [facility] PAZEO 0.7 % 2020-[id number] 1 [facility] Drop 0-12 DROP IN ity of 00:00: EACH EYE [place] 00 ONCE DAILY [facility] PAZEO 0.7 % 2020-[id number] 1 [facility] Drop 0-12 DROP IN ity of 00:00: EACH EYE [place] 00 ONCE DAILY [facility] PAZEO 0.7 % 2020-[id number] 1 [facility] Drop 0-12 DROP IN ity of 00:00: EACH EYE [place] 00 ONCE DAILY [facility] PAZEO 0.7 % 2020-[id number] 1 [facility] Drop 0-12 DROP IN ity of 00:00: EACH EYE [place] 00 ONCE DAILY [facility] PAZEO 0.7 % 2020-[id number] 1 [facility] Drop 0-12 DROP IN ity of 00:00: EACH EYE [place] 00 ONCE DAILY [facility] PAZEO 0.7 % 2020-[id number] 1 [facility] Drop 0-12 DROP IN ity of 00:00: EACH EYE [place] 00 ONCE DAILY [facility] PAZEO 0.7 % 2020-[id number] 1 [facility] Drop 0-12 DROP IN ity of 00:00: EACH EYE [place] 00 ONCE DAILY [facility] PAZEO 0.7 % 2020-[id number] 1 [facility] Drop 0-12 DROP IN ity of 00:00: EACH EYE [place] 00 ONCE DAILY [facility] PAZEO 0.7 % 2020-[id number] 1 [facility] Drop 0-12 DROP IN ity of 00:00: EACH EYE [place] 00 ONCE DAILY [facility] PAZEO 0.7 % 2020-[id number] 1 [facility] Drop 0-12 DROP IN ity of 00:00: EACH EYE [place] 00 ONCE DAILY [facility] PAZEO 0.7 % 2020-[id number] 1 [facility] Drop 0-12 DROP IN ity of 00:00: EACH EYE [place] 00 ONCE DAILY [facility] PAZEO 0.7 % 2020-[id number] 1 [facility] Drop 0-12 DROP IN ity of 00:00: EACH EYE [place] 00 ONCE DAILY [facility] PAZEO 0.7 % 2020-[id number] 1 [facility] Drop 0-12 DROP IN ity of 00:00: EACH EYE [place] 00 ONCE DAILY [facility] PAZEO 0.7 % 2020-[id number] 1 [facility] Drop 0-12 DROP IN ity of 00:00: EACH EYE [place] 00 ONCE DAILY [facility] PAZEO 0.7 % 2020-[id number] 1 [facility] Drop 0-12 DROP IN ity of 00:00: EACH EYE [place] 00 ONCE DAILY [facility] PAZEO 0.7 % 2020-[id number] 1 [facility] Drop 0-12 DROP IN ity of 00:00: EACH EYE [place] 00 ONCE DAILY [facility] PAZEO 0.7 % 2020-[id number] 1 [facility] Drop 0-12 DROP IN ity of 00:00: EACH EYE [place] 00 ONCE DAILY [facility] PAZEO 0.7 % 2020-[id number] 1 [facility] Drop 0-12 DROP IN ity of 00:00: EACH EYE [place] 00 ONCE DAILY [facility] PAZEO 0.7 % 2020-[id number] 1 [facility] Drop 0-12 DROP IN ity of 00:00: EACH EYE [place] 00 ONCE DAILY [facility] PAZEO 0.7 % 2020-[id number] 1 [facility] Drop 0-12 DROP IN ity of 00:00: EACH EYE [place] 00 ONCE DAILY [facility] PAZEO 0.7 % 2020-[id number] 1 [facility] Drop 0-12 DROP IN ity of 00:00: EACH EYE [place] 00 ONCE DAILY [facility] PAZEO 0.7 % 2020-[id number] 1 [facility] Drop 0-12 DROP IN ity of 00:00: EACH EYE [place] 00 ONCE DAILY [facility] PAZEO 0.7 % 2020-[id number] 1 [facility] Drop 0-12 DROP IN ity of 00:00: EACH EYE [place] 00 ONCE DAILY [facility] PAZEO 0.7 % 2020-[id number] 1 [facility] Drop 0-12 DROP IN ity of 00:00: EACH EYE [place] 00 ONCE DAILY [facility] PAZEO 0.7 % 2020-[id number] 1 [facility] Drop 0-12 DROP IN ity of 00:00: EACH EYE [place] 00 ONCE DAILY [facility] PAZEO 0.7 % 2020-[id number] 1 [facility] Drop 0-12 DROP IN ity of 00:00: EACH EYE [place] 00 ONCE DAILY [facility] PAZEO 0.7 % 2020-[id number] 1 [facility] Drop 0-12 DROP IN ity of 00:00: EACH EYE [place] 00 ONCE DAILY [facility] PAZEO 0.7 % 2020-[id number] 1 [facility] Drop 0-12 DROP IN ity of 00:00: EACH EYE [place] 00 ONCE DAILY [facility] PAZEO 0.7 % 2020-[id number] 1 [facility] Drop 0-12 DROP IN ity of 00:00: EACH EYE [place] 00 ONCE DAILY [facility] PAZEO 0.7 % 2020-[id number] 1 [facility] Drop 0-12 DROP IN ity of 00:00: EACH EYE [place] 00 ONCE DAILY [facility] PAZEO 0.7 % 2020-[id number] 1 [facility] Drop 0-12 DROP IN ity of 00:00: EACH EYE [place] 00 ONCE DAILY [facility] PAZEO 0.7 % 2020-[id number] 1 [facility] Drop 0-12 DROP IN ity of 00:00: EACH EYE [place] 00 ONCE DAILY [facility] PAZEO 0.7 % 2020-[id number] 1 [facility] Drop 0-12 DROP IN ity of 00:00: EACH EYE [place] 00 ONCE DAILY [facility] PAZEO 0.7 % 2020-[id number] 1 [facility] Drop 0-12 DROP IN ity of 00:00: EACH EYE [place] 00 ONCE DAILY [facility] PAZEO 0.7 % 2020-[id number] 1 [facility] Drop 0-12 DROP IN ity of 00:00: EACH EYE [place] 00 ONCE DAILY [facility] PAZEO 0.7 % 2020-[id number] 1 [facility] Drop 0-12 DROP IN ity of 00:00: EACH EYE [place] 00 ONCE DAILY [facility] PAZEO 0.7 % 2020-[id number] 1 [facility] Drop 0-12 DROP IN ity of 00:00: EACH EYE [place] 00 ONCE DAILY [facility] PAZEO 0.7 % 2020-[id number] 1 [facility] Drop 0-12 DROP IN ity of 00:00: EACH EYE [place] 00 ONCE DAILY [facility] PAZEO 0.7 % 2020-[id number] 1 [facility] Drop 0-12 DROP IN ity of 00:00: EACH EYE [place] 00 ONCE DAILY [facility] PAZEO 0.7 % 2020-[id number] 1 [facility] Drop 0-12 DROP IN ity of 00:00: EACH EYE [place] 00 ONCE DAILY [facility] PAZEO 0.7 % 2020-[id number] 1 [facility] Drop 0-12 DROP IN ity of 00:00: EACH EYE [place] 00 ONCE DAILY [facility] PAZEO 0.7 % 2020-[id number] 1 [facility] Drop 0-12 DROP IN ity of 00:00: EACH EYE [place] 00 ONCE DAILY [facility] PAZEO 0.7 % 2020-[id number] 1 [facility] Drop 0-12 DROP IN ity of 00:00: EACH EYE [place] 00 ONCE DAILY [facility] PAZEO 0.7 % 2020-[id number] 1 [facility] Drop 0-12 DROP IN ity of 00:00: EACH EYE [place] 00 ONCE DAILY [facility] PAZEO 0.7 % 2020-[id number] 1 [facility] Drop 0-12 DROP IN ity of 00:00: EACH EYE [place] 00 ONCE DAILY [facility] PAZEO 0.7 % 2020-[id number] 1 [facility] Drop 0-12 DROP IN ity of 00:00: EACH EYE [place] 00 ONCE DAILY [facility] PAZEO 0.7 % 2020-[id number] 1 [facility] Drop 0-12 DROP IN ity of 00:00: EACH EYE [place] 00 ONCE DAILY [facility] PAZEO 0.7 % 2020-[id number] 1 [facility] Drop 0-12 DROP IN ity of 00:00: EACH EYE [place] 00 ONCE DAILY [facility] PAZEO 0.7 % 2020-[id number] 1 [facility] Drop 0-12 DROP IN ity of 00:00: EACH EYE [place] 00 ONCE DAILY [facility] PAZEO 0.7 % 2020-[id number] 1 [facility] Drop 0-12 DROP IN ity of 00:00: EACH EYE [place] 00 ONCE DAILY [facility] PAZEO 0.7 % 2020-[id number] 1 [facility] Drop 0-12 DROP IN ity of 00:00: EACH EYE [place] 00 ONCE DAILY [facility] PAZEO 0.7 % 2020-[id number] 1 [facility] Drop 0-12 DROP IN ity of 00:00: EACH EYE [place] 00 ONCE DAILY [facility] PAZEO 0.7 % 2020-[id number] 1 [facility] Drop 0-12 DROP IN ity of 00:00: EACH EYE [place] 00 ONCE DAILY [facility] PAZEO 0.7 % 2020-[id number] 1 [facility] Drop 0-12 DROP IN ity of 00:00: EACH EYE [place] 00 ONCE DAILY [facility] PAZEO 0.7 % 2020-[id number] 1 [facility] Drop 0-12 DROP IN ity of 00:00: EACH EYE [place] 00 ONCE DAILY [facility] PAZEO 0.7 % 2020-[id number] 1 [facility] Drop 0-12 DROP IN ity of 00:00: EACH EYE [place] 00 ONCE DAILY [facility] PAZEO 0.7 % 2020-[id number] 1 [facility] Drop 0-12 DROP IN ity of 00:00: EACH EYE [place] 00 ONCE DAILY [facility] PAZEO 0.7 % 2020-[id number] 1 [facility] Drop 0-12 DROP IN ity of 00:00: EACH EYE [place] 00 ONCE DAILY [facility] PAZEO 0.7 % 2020-[id number] 1 [facility] Drop 0-12 DROP IN ity of 00:00: EACH EYE [place] 00 ONCE DAILY [facility] PAZEO 0.7 % 2020-[id number] 1 [facility] Drop 0-12 DROP IN ity of 00:00: EACH EYE [place] 00 ONCE DAILY [facility] PAZEO 0.7 % 2020-[id number] 1 [facility] Drop 0-12 DROP IN ity of 00:00: EACH EYE [place] 00 ONCE DAILY [facility] PAZEO 0.7 % 2020-[id number] 1 [facility] Drop 0-12 DROP IN ity of 00:00: EACH EYE [place] 00 ONCE DAILY [facility] PAZEO 0.7 % 2020-[id number] 1 [facility] Drop 0-12 DROP IN ity of 00:00: EACH EYE [place] 00 ONCE DAILY [facility] PAZEO 0.7 % 2020-[id number] 1 [facility] Drop 0-12 DROP IN ity of 00:00: EACH EYE [place] 00 ONCE DAILY [facility] PAZEO 0.7 % 2020-[id number] 1 [facility] Drop 0-12 DROP IN ity of 00:00: EACH EYE [place] 00 ONCE DAILY [facility] PAZEO 0.7 % 2020-[id number] 1 [facility] Drop 0-12 DROP IN ity of 00:00: EACH EYE [place] 00 ONCE DAILY [facility] PAZEO 0.7 % 2020-[id number] 1 [facility] Drop 0-12 DROP IN ity of 00:00: EACH EYE [place] 00 ONCE DAILY [facility] PAZEO 0.7 % 2020-[id number] 1 [facility] Drop 0-12 DROP IN ity of 00:00: EACH EYE [place] 00 ONCE DAILY [facility] PAZEO 0.7 % 2020-[id number] 1 [facility] Drop 0-12 DROP IN ity of 00:00: EACH EYE [place] 00 ONCE DAILY [facility] PAZEO 0.7 % 2020-[id number] 1 [facility] Drop 0-12 DROP IN ity of 00:00: EACH EYE [place] 00 ONCE DAILY [facility] PAZEO 0.7 % 2020-[id number] 1 [facility] Drop 0-12 DROP IN ity of 00:00: EACH EYE [place] 00 ONCE DAILY [facility] PAZEO 0.7 % 2020-[id number] 1 [facility] Drop 0-12 DROP IN ity of 00:00: EACH EYE [place] 00 ONCE DAILY [facility] PAZEO 0.7 % 2020-[id number] 1 [facility] Drop 0-12 DROP IN ity of 00:00: EACH EYE [place] 00 ONCE DAILY [facility] PAZEO 0.7 % 2020-[id number] 1 [facility] Drop 0-12 DROP IN ity of 00:00: EACH EYE [place] 00 ONCE DAILY [facility] PAZEO 0.7 % 2020-[id number] 1 [facility] Drop 0-12 DROP IN ity of 00:00: EACH EYE [place] 00 ONCE DAILY [facility] Promethazin Yes Take by [facility] e HCl 9-15 mouth. [place] (PHENERGAN 15:02: of OR) 00 Medicin e dicyclomine Yes 10mg Take 10 mg [facility] (BENTYL) 10 9-15 by mouth [facility] MG capsule 15:02: every 6 of 00 hours. Medicin e Sucralfate 0 Yes Take by [facility] (CARAFATE 9-15 mouth. [place] OR) 15:02: of 00 Medicin e ALBUTEROL 0 Yes Take by [facility] SULFATE OR 9-15 mouth. [place] 15:02: of 00 Medicin e albuterol 0 Yes 1{ampul Take 1 [facility] (PROVENTIL) 9-15 e} Ampule by [facility] (2.5 mg/3 15:02: nebulizati of mL) 0.083% 00 on as Medicin nebulizer needed. e solution Promethazin Yes Take by [place] [facility] e HCl 9-15 mouth. [place] (PHENERGAN 15:02: of OR) 00 Medicin e dicyclomine 0 Yes 10mg Take 10 mg [facility] (BENTYL) 10 9-15 by mouth [facility] MG capsule 15:02: every 6 of 00 hours. Medicin e Sucralfate 0 Yes Take by [facility] (CARAFATE 9-15 mouth. [place]) 15:02: of 00 Medicin e ALBUTEROL 0 Yes Take by [facility] SULFATE OR 9-15 mouth. [facility] 15:02: of 00 Medicin e albuterol 0 Yes 1{ampul Take 1 [facility] (PROVENTIL) 9-15 e} Ampule by [facility] (2.5 mg/3 15:02: nebulizati of mL) 0.083% 00 on as Medicin nebulizer needed. e solution MAGNESIUM 0 Yes Take by [facility] CITRATE OR 9-15 mouth as [facility] 15:02: needed. of 00 Medicin e oxybutynin 0 Yes 5mg Take 5 mg [facility] (DITROPAN) 9-15 by mouth [facility] 5 MG tablet 15:02: two times o f 00 daily. Medicin e VENLAFAXINE 0 Yes Take by [facility] HCL OR 9-15 mouth. [place] 15:02: of 00 Medicin e sumatriptan 2020-0 Yes 50mg Take 50 mg [facility] (IMITREX) 9-15 by mouth [facility] 50 MG 15:02: once as of tablet 00 needed for Medicin Migraine. e naproxen 0 Yes 500mg Take 500 [facility] (NAPROSYN) 9-15 mg by [place] 500 MG 15:02: mouth 2 of tablet 00 times Medicin daily e (with meals). MAGNESIUM 2020-0 Yes Take by [facility] CITRATE OR 9-15 mouth as [facility] 15:02: needed. of 00 Medicin e oxybutynin 0 Yes 5mg Take 5 mg [facility] (DITROPAN) 9-15 by mouth Colle ge 5 MG tablet 15:02: two times o f 00 daily. Medicin e VENLAFAXINE 2020-0 Yes Take by [facility] HCL OR 9-15 mouth. [facility] 15:02: of 00 Medicin e sumatriptan 2020-0 Yes 50mg Take 50 mg [facility] (IMITREX) 9-15 by mouth [facility] 50 MG 15:02: once as of tablet 00 needed for Medicin Migraine. e naproxen 2020-0 Yes 500mg Take 500 [facility] (NAPROSYN) 9-15 mg by [place] 500 MG 15:02: mouth 2 of tablet 00 times Medicin daily e (with meals). tramadol 2020-0 Yes [id number] 1{tbl} Take 1 [facility] (ULTRAM) 50 9-15 Tablet by [facility] MG tablet 00:00: mouth of 00 every 8 Medicin hours as e needed for Pain. baclofen Yes [id number] TAKE 1 [facility] (LIORESAL) 9-15 TABLET BY [facility] 10 MG 00:00: MOUTH of tablet 00 THREE Medicin TIMES A e DAY Cyanocobala Yes [id number] 1000ug Inject [facility] min 1000 9-15 1,000 mcg [facility] MCG/ML KIT 00:00: as of 00 directed Medicin every 14 e days. For 3 months then once per week tramadol 2020- Yes [id number] 1{tbl} Take 1 [facility] (ULTRAM) 50 9-15 Tablet by [facility] MG tablet 00:00: mouth of 00 every 8 Medicin hours as e needed for Pain. tramadol Yes [id number] 1{tbl} Take 1 [facility] (ULTRAM) 50 9-15 Tablet by [facility] MG tablet 00:00: mouth of 00 every 8 Medicin hours as e needed for Pain. baclofen Yes [id number] TAKE 1 [facility] (LIORESAL) 9-15 TABLET BY [facility] 10 MG 00:00: MOUTH of tablet 00 THREE Medicin TIMES A e DAY Cyanocobala Yes [id number] 1000ug Inject [facility] min 1000 9-15 1,000 mcg Colleg [facility] MCG/ML KIT 00:00: as of 00 directed Medicin every 14 e days. For 3 months then once per week baclofen 2020-0 2020- No [id number] TAKE 1 [facility] (LIORESAL) 9-15 12-13 TABLET BY [facility] 10 MG 00:00: 00:00 MOUTH of tablet 00 :00 THREE Medicin TIMES A e DAY Topamax 25 2020-0 Yes [id number] 25mg Q.5D Take 1 [facility] tablet 8-18 tablet ( 00:00: mg total) 00 by mouth 2 (two) times a day. Topamax 25 2020-0 Yes [id number] 25mg Q.5D Take 1 [facility] tablet 8-18 tablet ( 00:00: mg total) 00 by mouth 2 (two) times a day. topiramate 2020-0 2020- No 25mg Take 25 mg [facility] (TOPAMAX) 07-01 by mouth [facility] 25 MG 00:00: 04:59 two times of tablet 00 :00 daily. Medicin e topiramate 2020-0 2020- No 25mg Take 25 mg [facility] (TOPAMAX) 07-01 by mouth [facility] 25 MG 00:00: 04:59 two times of tablet 00 :00 daily. Medicin e acetaZOLAMI 0 Yes 250mg Take 250 [facility] (Diamox) 8-17 mg by Health 250 MG 00:00: mouth. tablet 00 venlafaxine 0 Yes [facility] (Effexor) 8-17 Health 37.5 MG 00:00: tablet 00 acetaZOLAMI 2020-0 Yes 250mg Take 250 [facility] (Diamox) 8-17 mg by [facility] 250 MG 00:00: mouth. tablet 00 venlafaxine 0 Yes [facility] (Effexor) 8-17 Health 37.5 MG 00:00: tablet 00 acetaZOLAMI 0 Yes 250mg Take 250 [facility] (Diamox) 8-17 mg by [facility] 250 MG 00:00: mouth. tablet 00 venlafaxine 0 Yes [facility] (Effexor) 8-17 Health 37.5 MG 00:00: tablet 00 pregabalin 2020-0 Yes [facility] (Lyrica) 8-16 [facility] 100 MG 00:00: capsule 00 pregabalin 2020-0 Yes [facility] (Lyrica) 8-16 [facility] 100 MG 00:00: capsule 00 pregabalin 2020-0 Yes [facility] (Lyrica) 8-16 [facility] 100 MG 00:00: capsule 00 pregabalin 2020-0 Yes [id number] TAKE 1 [facility] (LYRICA) 8-16 CAPSULE BY [facility] 100 MG 00:00: MOUTH of capsule 00 THREE Medicin TIMES A e DAY pregabalin 2020-0 Yes [id number] TAKE 1 [facility] (LYRICA) 8-16 CAPSULE BY [facility] 100 MG 00:00: MOUTH of capsule 00 THREE Medicin TIMES A e DAY promethazin 2020-0 Yes [facility] 8-09 [facility] (Phenergan) 00:00: 6.25 MG/5ML 00 syrup nystatin 2021-0 Yes APPLY TO [facility] (Mycostatin 06-22 AFFECTED [facility]al [facility] ) cream 00:00: AREA TWICE 00 A DAY promethazin 2020-0 Yes [facility] e 06-22 [facility] (Phenergan) 00:00: 6.25 MG/5ML 00 syrup nystatin 2020-0 Yes APPLY TO [facility] (Mycostatin 06-22 AFFECTED [facility]al [facility] ) cream 00:00: AREA TWICE 00 A DAY promethazin 2020-0 Yes [facility] 06-[facility] (Phenergan) 00:00: 6.25 MG/5ML 00 syrup nystatin 2020-0 Yes APPLY TO [facility] (Mycostatin 06-22 AFFECTED Heal th ) cream 00:00: AREA TWICE 00 A DAY nystatin 2020-0 Yes [id number] Apply to U nivers 100,000 8 affected ity of unit/gram 00:00: area(s) 2 [facility] as cream 00 (two) Medical times Branch daily. nystatin 2020-0 Yes [id number] Apply to [facility] 100,000 06-22 affected ity of unit/gram 00:00: area(s) 2 [facility] cream 00 (two) Medical times Branch daily. nystatin 2020-0 Yes [id number] Apply to [facility] 100,000 8 affected ity of unit/gram 00:00: area(s) 2 [facility] cream 00 (two) Medical times Branch daily. nystatin 2020-0 Yes [id number] Apply to [facility] 100,000 8 affected ity of unit/gram 00:00: area(s) 2 [facility] cream 00 (two) Medical times Branch daily. nystatin 2020-0 Yes [id number] Apply to [facility] 100,000 8 affected ity of unit/gram 00:00: area(s) 2 [facility] cream 00 (two) Medical times Branch daily. nystatin 2020-0 Yes [id number] Apply to [facility] 100,000 8 affected ity of unit/gram 00:00: area(s) 2 [facility] cream 00 (two) Medical times Branch daily. nystatin 2020-0 Yes [id number] Apply to [facility] 100,000 8 affected ity of unit/gram 00:00: area(s) 2 [facility] cream 00 (two) Medical times Branch daily. nystatin 2020-0 Yes [id number] Apply to [facility] 100,000 8-09 affected ity of unit/gram 00:00: area(s) 2 [facility] cream 00 (two) Medical times Branch daily. nystatin 2020-0 Yes [id number] Apply to [facility] 100,000 8- affected ity of unit/gram 00:00: area(s) 2 [facility] cream 00 (two) Medical times Branch daily. nystatin 2020-0 Yes [id number] Apply to [facility] 100,000 8- affected ity of unit/gram 00:00: area(s) 2 [facility] cream 00 (two) Medical times Branch daily. nystatin 2020-0 Yes [id number] Apply to [facility] 100,000 8- affected ity of unit/gram 00:00: area(s) 2 [facility] cream 00 (two) Medical times Branch daily. nystatin 2020-0 Yes [id number] Apply to U [facility]ivers 100,000 8- affected ity of unit/gram 00:00: area(s) 2 [facility] cream 00 (two) Medical times Branch daily. nystatin 2020-0 Yes [id number] Apply to [facility] 100,000 8- affected ity of unit/gram 00:00: area(s) 2 [facility] cream 00 (two) Medical times Branch daily. nystatin 2020-0 Yes [id number] Apply to [facility] nivers 100,000 8- affected ity of unit/gram 00:00: area(s) 2 Mir as cream 00 (two) Medical times Branch daily. nystatin 2020-0 Yes [id number] Apply to [facility] nivers 100,000 8- affected ity of unit/gram 00:00: area(s) 2 Mir as cream 00 (two) Medical times Branch daily. nystatin 202-0 Yes [id number] Apply to U nivers 100,000 8-09 affected ity of unit/gram 00:00: area(s) 2 Mir as cream 00 (two) Medical times Branch daily. nystatin 202-0 Yes [id number] Apply to U nivers 100,000 8- affected ity of unit/gram 00:00: area(s) 2 Mir as cream 00 (two) Medical times Branch daily. nystatin 2020-0 Yes [id number] Apply to [facility] 100,000 8-09 affected ity of unit/gram 00:00: area(s) 2 Mir as cream 00 (two) Medical times Branch daily. nystatin 2020-0 Yes [id number] Apply to [facility] 100,000 8- affected ity of unit/gram 00:00: area(s) 2 Mir as cream 00 (two) Medical times Branch daily. nystatin 2020-0 Yes [id number] Apply to [facility] 100,000 8- affected ity of unit/gram 00:00: area(s) 2 Mir as cream 00 (two) Medical times Branch daily. nystatin 2020-0 Yes [id number] Apply to [facility] 100,000 8- affected ity of unit/gram 00:00: area(s) 2 Mir as cream 00 (two) Medical times Branch daily. nystatin 2020-0 Yes [id number] Apply to [facility] 100,000 8- affected ity of unit/gram 00:00: area(s) 2 Mir as cream 00 (two) Medical times Branch daily. nystatin 2020-0 Yes [id number] Apply to [facility] 100,000 8- affected ity of unit/gram 00:00: area(s) 2 Mir as cream 00 (two) Medical times Branch daily. nystatin 2020-0 Yes [id number] Apply to [facility] 100,000 8- affected ity of unit/gram 00:00: area(s) 2 Mir as cream 00 (two) Medical times Branch daily. nystatin 2020-0 Yes [id number] Apply to [facility] 100,000 8- affected ity of unit/gram 00:00: area(s) 2 Mir as cream 00 (two) Medical times Branch daily. nystatin 202-0 Yes [id number] Apply to [facility] 100,000 8-09 affected ity of unit/gram 00:00: area(s) 2 Mir as cream 00 (two) Medical times Branch daily. nystatin 202-0 Yes [id number] Apply to [facility] 100,000 8- affected ity of unit/gram 00:00: area(s) 2 Mir as cream 00 (two) Medical times Branch daily. nystatin 2020-0 Yes [id number] Apply to [facility] 100,000 8-09 affected ity of unit/gram 00:00: area(s) 2 Mir as cream 00 (two) Medical times Branch daily. nystatin 2020-0 Yes [id number] Apply to [facility] 100,000 8- affected ity of unit/gram 00:00: area(s) 2 Mir as cream 00 (two) Medical times Branch daily. nystatin 2020-0 Yes [id number] Apply to [facility] 100,000 8- affected ity of unit/gram 00:00: area(s) 2 Mir as cream 00 (two) Medical times Branch daily. nystatin 2020-0 Yes [id number] Apply to [facility] 100,000 8- affected ity of unit/gram 00:00: area(s) 2 Mir as cream 00 (two) Medical times Branch daily. nystatin 2020-0 Yes [id number] Apply to [facility] 100,000 8- affected ity of unit/gram 00:00: area(s) 2 Mir as cream 00 (two) Medical times Branch daily. nystatin 2020-0 Yes [id number] Apply to [facility] 100,000 8- affected ity of unit/gram 00:00: area(s) 2 Mir as cream 00 (two) Medical times Branch daily. nystatin 2020-0 Yes [id number] Apply to [facility] 100,000 8- affected ity of unit/gram 00:00: area(s) 2 [facility] as cream 00 (two) Medical times Branch daily. nystatin 2020-0 Yes [id number] Apply to [facility] 100,000 8- affected ity of unit/gram 00:00: area(s) 2 Mir as cream 00 (two) Medical times Branch daily. nystatin 202-0 Yes [id number] Apply to [facility] 100,000 8-09 affected ity of unit/gram 00:00: area(s) 2 Mir as cream 00 (two) Medical times Branch daily. nystatin 202-0 Yes [id number] Apply to [facility] 100,000 8- affected ity of unit/gram 00:00: area(s) 2 [facility] as cream 00 (two) Medical times Branch daily. nystatin 2020-0 Yes [id number] Apply to [facility] 100,000 8-09 affected ity of unit/gram 00:00: area(s) 2 Mir as cream 00 (two) Medical times Branch daily. nystatin 2020-0 Yes [id number] Apply to [facility] 100,000 8- affected ity of unit/gram 00:00: area(s) 2 Mir as cream 00 (two) Medical times Branch daily. nystatin 2020-0 Yes [id number] Apply to [facility] 100,000 8- affected ity of unit/gram 00:00: area(s) 2 Mir as cream 00 (two) Medical times Branch daily. nystatin 2020-0 Yes [id number] Apply to [facility] 100,000 8- affected ity of unit/gram 00:00: area(s) 2 Mir as cream 00 (two) Medical times Branch daily. nystatin 2020-0 Yes [id number] Apply to [facility] 100,000 8- affected ity of unit/gram 00:00: area(s) 2 Mir as cream 00 (two) Medical times Branch daily. nystatin 2020-0 Yes [id number] Apply to [facility] 100,000 8- affected ity of unit/gram 00:00: area(s) 2 Mir as cream 00 (two) Medical times Branch daily. nystatin 2020-0 Yes [id number] Apply to [facility] 100,000 8- affected ity of unit/gram 00:00: area(s) 2 Mir as cream 00 (two) Medical times Branch daily. nystatin 2020-0 Yes [id number] Apply to [facility] 100,000 8- affected ity of unit/gram 00:00: area(s) 2 Mir as cream 00 (two) Medical times Branch daily. nystatin 202-0 Yes [id number] Apply to [facility] 100,000 8-09 affected ity of unit/gram 00:00: area(s) 2 Mir as cream 00 (two) Medical times Branch daily. nystatin 202-0 Yes [id number] Apply to [facility] 100,000 8- affected ity of unit/gram 00:00: area(s) 2 Mir as cream 00 (two) Medical times Branch daily. nystatin 2020-0 Yes [id number] Apply to [facility] 100,000 8-09 affected ity of unit/gram 00:00: area(s) 2 Mir as cream 00 (two) Medical times Branch daily. nystatin 2020-0 Yes [id number] Apply to [facility] 100,000 8- affected ity of unit/gram 00:00: area(s) 2 Mir as cream 00 (two) Medical times Branch daily. nystatin 2020-0 Yes [id number] Apply to [facility] 100,000 8- affected ity of unit/gram 00:00: area(s) 2 Mir as cream 00 (two) Medical times Branch daily. nystatin 2020-0 Yes [id number] Apply to [facility] 100,000 8- affected ity of unit/gram 00:00: area(s) 2 Mir as cream 00 (two) Medical times Branch daily. nystatin 2020-0 Yes [id number] Apply to [facility] 100,000 8- affected ity of unit/gram 00:00: area(s) 2 Mir as cream 00 (two) Medical times Branch daily. nystatin 2020-0 Yes [id number] Apply to [facility] 100,000 8- affected ity of unit/gram 00:00: area(s) 2 Mir as cream 00 (two) Medical times Branch daily. nystatin 2020-0 Yes [id number] Apply to [facility] 100,000 8- affected ity of unit/gram 00:00: area(s) 2 Mir as cream 00 (two) Medical times Branch daily. nystatin 2020-0 Yes [id number] Apply to [facility] 100,000 8- affected ity of unit/gram 00:00: area(s) 2 Mir as cream 00 (two) Medical times Branch daily. nystatin 202-0 Yes [id number] Apply to [facility] 100,000 8-09 affected ity of unit/gram 00:00: area(s) 2 Mir as cream 00 (two) Medical times Branch daily. nystatin 202-0 Yes [id number] Apply to [facility] 100,000 8- affected ity of unit/gram 00:00: area(s) 2 Mir as cream 00 (two) Medical times Branch daily. nystatin 2020-0 Yes [id number] Apply to [facility] 100,000 8-09 affected ity of unit/gram 00:00: area(s) 2 Mir as cream 00 (two) Medical times Branch daily. nystatin 2020-0 Yes [id number] Apply to [facility] 100,000 8- affected ity of unit/gram 00:00: area(s) 2 Mir as cream 00 (two) Medical times Branch daily. nystatin 2020-0 Yes [id number] Apply to [facility] 100,000 8- affected ity of unit/gram 00:00: area(s) 2 Mir as cream 00 (two) Medical times Branch daily. nystatin 2020-0 Yes [id number] Apply to [facility] 100,000 8- affected ity of unit/gram 00:00: area(s) 2 Mir as cream 00 (two) Medical times Branch daily. nystatin 2020-0 Yes [id number] Apply to [facility] 100,000 8- affected ity of unit/gram 00:00: area(s) 2 Mir as cream 00 (two) Medical times Branch daily. nystatin 2020-0 Yes [id number] Apply to [facility] 100,000 8- affected ity of unit/gram 00:00: area(s) 2 Mir as cream 00 (two) Medical times Branch daily. nystatin 2020-0 Yes [id number] Apply to [facility] 100,000 8- affected ity of unit/gram 00:00: area(s) 2 Mir as cream 00 (two) Medical times Branch daily. nystatin 2020-0 Yes [id number] Apply to [facility] 100,000 8- affected ity of unit/gram 00:00: area(s) 2 Mir as cream 00 (two) Medical times Branch daily. nystatin 202-0 Yes [id number] Apply to [facility] 100,000 8-09 affected ity of unit/gram 00:00: area(s) 2 Mir as cream 00 (two) Medical times Branch daily. nystatin 202-0 Yes [id number] Apply to [facility] 100,000 8- affected ity of unit/gram 00:00: area(s) 2 Mir as cream 00 (two) Medical times Branch daily. nystatin 2020-0 Yes [id number] Apply to [facility] 100,000 8-09 affected ity of unit/gram 00:00: area(s) 2 Mir as cream 00 (two) Medical times Branch daily. nystatin 2020-0 Yes [id number] Apply to [facility] 100,000 8- affected ity of unit/gram 00:00: area(s) 2 Mir as cream 00 (two) Medical times Branch daily. nystatin 2020-0 Yes [id number] Apply to [facility] 100,000 8- affected ity of unit/gram 00:00: area(s) 2 Mir as cream 00 (two) Medical times Branch daily. nystatin 2020-0 Yes [id number] Apply to [facility] 100,000 8- affected ity of unit/gram 00:00: area(s) 2 Mir as cream 00 (two) Medical times Branch daily. nystatin 2020-0 Yes [id number] Apply to [facility] 100,000 8- affected ity of unit/gram 00:00: area(s) 2 Mir as cream 00 (two) Medical times Branch daily. nystatin 2020-0 Yes [id number] Apply to [facility] 100,000 8- affected ity of unit/gram 00:00: area(s) 2 Mir as cream 00 (two) Medical times Branch daily. nystatin 2020-0 Yes [id number] Apply to [facility] 100,000 8- affected ity of unit/gram 00:00: area(s) 2 Mir as cream 00 (two) Medical times Branch daily. nystatin 2020-0 Yes [id number] Apply to [facility] 100,000 8- affected ity of unit/gram 00:00: area(s) 2 [facility] as cream 00 (two) Medical times Branch daily. nystatin 202-0 Yes [id number] Apply to [facility] 100,000 8-09 affected ity of unit/gram 00:00: area(s) 2 Mir as cream 00 (two) Medical times Branch daily. nystatin 202-0 Yes [id number] Apply to [facility] 100,000 8- affected ity of unit/gram 00:00: area(s) 2 Mir as cream 00 (two) Medical times Branch daily. nystatin 2020-0 Yes [id number] Apply to [facility] 100,000 8-09 affected ity of unit/gram 00:00: area(s) 2 Mir as cream 00 (two) Medical times Branch daily. nystatin 2020-0 Yes [id number] Apply to [facility] 100,000 8- affected ity of unit/gram 00:00: area(s) 2 Mir as cream 00 (two) Medical times Branch daily. nystatin 2020-0 Yes [id number] Apply to [facility] 100,000 8- affected ity of unit/gram 00:00: area(s) 2 Mir as cream 00 (two) Medical times Branch daily. nystatin 2020-0 Yes [id number] Apply to [facility] 100,000 8- affected ity of unit/gram 00:00: area(s) 2 Mir as cream 00 (two) Medical times Branch daily. nystatin 2020-0 Yes [id number] Apply to [facility] 100,000 8- affected ity of unit/gram 00:00: area(s) 2 Mir as cream 00 (two) Medical times Branch daily. nystatin 2020-0 Yes [id number] Apply to [facility] 100,000 8- affected ity of unit/gram 00:00: area(s) 2 Mir as cream 00 (two) Medical times Branch daily. nystatin 2020-0 Yes [id number] Apply to [facility] 100,000 8- affected ity of unit/gram 00:00: area(s) 2 Mir as cream 00 (two) Medical times Branch daily. nystatin 2020-0 Yes [id number] Apply to [facility] 100,000 8- affected ity of unit/gram 00:00: area(s) 2 Mir as cream 00 (two) Medical times Branch daily. nystatin 202-0 Yes [id number] Apply to [facility] 100,000 8-09 affected ity of unit/gram 00:00: area(s) 2 Mir as cream 00 (two) Medical times Branch daily. nystatin 202-0 Yes [id number] Apply to [facility] 100,000 8- affected ity of unit/gram 00:00: area(s) 2 Mir as cream 00 (two) Medical times Branch daily. nystatin 2020-0 Yes [id number] Apply to [facility] 100,000 8-09 affected ity of unit/gram 00:00: area(s) 2 Mir as cream 00 (two) Medical times Branch daily. nystatin 2020-0 Yes [id number] Apply to [facility] 100,000 8- affected ity of unit/gram 00:00: area(s) 2 Mir as cream 00 (two) Medical times Branch daily. nystatin 2020-0 Yes [id number] Apply to [facility] 100,000 8- affected ity of unit/gram 00:00: area(s) 2 Mir as cream 00 (two) Medical times Branch daily. nystatin 2020-0 Yes [id number] Apply to [facility] 100,000 8- affected ity of unit/gram 00:00: area(s) 2 Mir as cream 00 (two) Medical times Branch daily. nystatin 2020-0 Yes [id number] Apply to [facility] 100,000 8- affected ity of unit/gram 00:00: area(s) 2 Mir as cream 00 (two) Medical times Branch daily. nystatin 2020-0 Yes [id number] Apply to [facility] 100,000 8- affected ity of unit/gram 00:00: area(s) 2 Mir as cream 00 (two) Medical times Branch daily. nystatin 2020-0 Yes [id number] Apply to [facility] 100,000 8- affected ity of unit/gram 00:00: area(s) 2 Mir as cream 00 (two) Medical times Branch daily. nystatin 2020-0 Yes [id number] Apply to [facility] 100,000 8- affected ity of unit/gram 00:00: area(s) 2 Mir as cream 00 (two) Medical times Branch daily. nystatin 202-0 Yes [id number] Apply to [facility] 100,000 8-09 affected ity of unit/gram 00:00: area(s) 2 Mir as cream 00 (two) Medical times Branch daily. nystatin 202-0 Yes [id number] Apply to [facility] 100,000 8- affected ity of unit/gram 00:00: area(s) 2 Mir as cream 00 (two) Medical times Branch daily. nystatin 2020-0 Yes [id number] Apply to [facility] 100,000 8- affected ity of unit/gram 00:00: area(s) 2 Mir as cream 00 (two) Medical times Branch daily. nystatin 2020-0 Yes [id number] Apply to [facility] 100,000 8- affected ity of unit/gram 00:00: area(s) 2 Mir as cream 00 (two) Medical times Branch daily. nystatin 2020-0 Yes [id number] Apply to [facility] 100,000 8- affected ity of unit/gram 00:00: area(s) 2 Mir as cream 00 (two) Medical times Branch daily. nystatin 2020-0 Yes [id number] Apply to [facility] 100,000 8 affected ity of unit/gram 00:00: area(s) 2 Mir as cream 00 (two) Medical times Branch daily. nystatin 2020-0 Yes [id number] Apply to [facility] 100,000 8 affected ity of unit/gram 00:00: area(s) 2 Mir as cream 00 (two) Medical times Branch daily. nystatin 2020-0 Yes [id number] Apply to [facility] 100,000 8 affected ity of unit/gram 00:00: area(s) 2 Mir as cream 00 (two) Medical times Branch daily. nystatin 2020-0 Yes [id number] Apply to [facility] 100,000 8 affected ity of unit/gram 00:00: area(s) 2 Mir as cream 00 (two) Medical times Branch daily. nystatin 2020-0 Yes [id number] Apply to [facility] 100,000 8 affected ity of unit/gram 00:00: area(s) 2 Mir as cream 00 (two) Medical times Branch daily. nystatin 2020-0 Yes [id number] Apply to [facility] 100,000 8- affected ity of unit/gram 00:00: area(s) 2 Mir as cream 00 (two) Medical times Branch daily. ondansetron 0 Yes TAKE 5ML UT (Zofran) 4 7-29 BY MOUTH [facility] MG/5ML 00:00: TWICE A solution 00 DAY NEEDED FOR NAUSEA & VOMITING UNRESPONSI VE TO PROMETHAZI NE ondansetron Yes TAKE 5ML UT (Zofran) 4 7-29 BY MOUTH [facility] MG/5ML 00:00: TWICE A solution 00 DAY NEEDED FOR NAUSEA & VOMITING UNRESPONSI VE TO PROMETHAZI NE ondansetron Yes TAKE 5ML UT (Zofran) 4 7-29 BY MOUTH [facility] MG/5ML 00:00: TWICE A solution 00 DAY NEEDED FOR NAUSEA & VOMITING UNRESPONSI VE TO PROMETHAZI NE traMADol Yes 50mg Take 50 mg UT (Ultram) 50 7-24 by mouth [facility] MG tablet 00:00: every 8 00 (eight) hours if needed. traMADol Yes 50mg Take 50 mg UT (Ultram) 50 7-24 by mouth [facility] MG tablet 00:00: every 8 00 (eight) hours if needed. traMADol Yes 50mg Take 50 mg UT (Ultram) 50 7-24 by mouth [facility] MG tablet 00:00: every 8 00 (eight) hours if needed. Advair HFA Yes INHALE 2 UT 230-21 7-14 PUFFS BY [facility] MCG/ACT 00:00: MOUTH 2 inhaler 00 (TWO) TIMES DAILY. Advair HFA Yes INHALE 2 UT 230-21 7-14 PUFFS BY [facility] MCG/ACT 00:00: MOUTH 2 inhaler 00 (TWO) TIMES DAILY. Advair HFA Yes INHALE 2 UT 230-21 7-14 PUFFS BY [facility] MCG/ACT 00:00: MOUTH 2 inhaler 00 (TWO) TIMES DAILY. metoprolol Yes TAKE 0.5 UT tartrate 7-08 TABLETS BY [facility] (Lopressor) 00:00: MOUTH 3 25 MG 00 (THREE) tablet TIMES DAILY. metoprolol Yes TAKE 0.5 UT tartrate 7-08 TABLETS BY [facility] (Lopressor) 00:00: MOUTH 3 25 MG 00 (THREE) tablet TIMES DAILY. metoprolol Yes TAKE 0.5 UT tartrate 7-08 TABLETS BY [facility] (Lopressor) 00:00: MOUTH 3 25 MG 00 (THREE) tablet TIMES DAILY. meloxicam 2021-0 Yes TAKE 1 UT (Mobic) 7.5 6-28 TABLET BY [facility] MG tablet 00:00: MOUTH ONCE 00 DAILY NEEDED FOR PAIN (SCALE 7 10). meloxicam Yes TAKE 1 UT (Mobic) 7.5 6-28 TABLET BY [facility] MG tablet 00:00: MOUTH ONCE 00 DAILY NEEDED FOR PAIN (SCALE 7 10). meloxicam Yes TAKE 1 UT (Mobic) 7.5 6-28 TABLET BY [facility] MG tablet 00:00: MOUTH ONCE 00 DAILY NEEDED FOR PAIN (SCALE 7 10). hydrOXYzine Yes 1{tbl} [id number] Take 1 UT HCl 6-20 [id number] tablet by [facility] (Atarax) 50 00:00: 3D mouth 3 MG tablet 00 (three) times a day if needed. TAKE 1 TABLET BY MOUTH 3 TIMES DAILY NEEDED FOR ANXIETY hydrOXYzine Yes 1{tbl} Q.[id number] Take 1 UT HCl 6-20 [id number] tablet by [facility] (Atarax) 50 00:00: 3D mouth 3 MG tablet 00 (three) times a day if needed. TAKE 1 TABLET BY MOUTH 3 TIMES DAILY NEEDED FOR ANXIETY hydrOXYzine Yes 1{tbl} Q.[id number] Take 1 UT HCl 6-20 [id number] tablet by [facility] (Atarax) 50 00:00: 3D mouth 3 MG tablet 00 (three) times a day if needed. TAKE 1 TABLET BY MOUTH 3 TIMES DAILY NEEDED FOR ANXIETY baclofen Yes TAKE 1 UT (Lioresal) 6-16 TABLET BY [facility] 10 MG 00:00: MOUTH tablet 00 THREE TIMES A DAY baclofen 2020-0 Yes TAKE 1 UT (Lioresal) 6-16 TABLET BY [facility] 10 MG 00:00: MOUTH tablet 00 THREE TIMES A DAY baclofen 2020-0 Yes TAKE 1 UT (Lioresal) 6-16 TABLET BY [facility] 10 MG 00:00: MOUTH tablet 00 THREE TIMES A DAY cyanocobala 2020-0 Yes 1{tbl} Place 1 [facility] min/folic 6-16 tablet ity of acid 00:00: under the [place] (VITAMIN 00 tongue. Medical B02-VMSUG Branch ACID) 1,000-400 mcg Lozg cyanocobala 2021-0 Yes 1{tbl} Place 1 [facility] min/folic 6-16 tablet ity of acid 00:00: under the [place] (VITAMIN 00 tongue. Medical X36-DZOLC Branch ACID) 1,000-400 mcg Lozg cyanocobala 2021-0 Yes 1{tbl} Place 1 [facility] min/folic 6-16 tablet ity of acid 00:00: under the [place] (VITAMIN 00 tongue. Medical S26-PMUXV Branch ACID) 1,000-400 mcg Lozg cyanocobala 1-0 Yes 1{tbl} Place 1 [facility] min/folic 6-16 tablet ity of acid 00:00: under the [place] (VITAMIN 00 tongue. Medical Q18-YYPON Branch ACID) 1,000-400 mcg Lozg cyanocobala 1-0 Yes 1{tbl} Place 1 [facility] min/folic 6-16 tablet ity of acid 00:00: under the [place] (VITAMIN 00 tongue. Medical R72-DCLDQ Branch ACID) 1,000-400 mcg Lozg cyanocobala 1-0 Yes 1{tbl} Place 1 [facility] min/folic 6-16 tablet ity of acid 00:00: under the [place] (VITAMIN 00 tongue. Medical X17-URPNO Branch ACID) 1,000-400 mcg Lozg cyanocobala 1-0 Yes 1{tbl} Place 1 [facility] min/folic 6-16 tablet ity of acid 00:00: under the [place] (VITAMIN 00 tongue. Medical E05-QLXEZ Branch ACID) 1,000-400 mcg Lozg cyanocobala 1-0 Yes 1{tbl} Place 1 [facility] min/folic 6-16 tablet ity of acid 00:00: under the [place] (VITAMIN 00 tongue. Medical Q92-KPASL Branch ACID) 1,000-400 mcg Lozg cyanocobala 2021-0 Yes 1{tbl} Place 1 [facility] min/folic 6-16 tablet ity of acid 00:00: under the [place] (VITAMIN 00 tongue. Medical X16-XWUDE Branch ACID) 1,000-400 mcg Lozg cyanocobala 2021-0 Yes 1{tbl} Place 1 [facility] min/folic 6-16 tablet ity of acid 00:00: under the [place] (VITAMIN 00 tongue. Medical E58-NTSXI Branch ACID) 1,000-400 mcg Lozg cyanocobala 2021-0 Yes 1{tbl} Place 1 [facility] min/folic 6-16 tablet ity of acid 00:00: under the [place] (VITAMIN 00 tongue. Medical C16-VYWCN Branch ACID) 1,000-400 mcg Lozg cyanocobala 2021-0 Yes 1{tbl} Place 1 [facility] min/folic 6-16 tablet ity of acid 00:00: under the [place] (VITAMIN 00 tongue. Medical P12-GLHMD Branch ACID) 1,000-400 mcg Lozg cyanocobala 2021-0 Yes 1{tbl} Place 1 [facility] min/folic 6-16 tablet ity of acid 00:00: under the [place] (VITAMIN 00 tongue. Medical G95-ICRHN Branch ACID) 1,000-400 mcg Lozg cyanocobala 2021-0 Yes 1{tbl} Place 1 [facility] min/folic 6-16 tablet ity of acid 00:00: under the [place] (VITAMIN 00 tongue. Medical V88-IXUEY Branch ACID) 1,000-400 mcg Lozg cyanocobala 2021-0 Yes 1{tbl} Place 1 [facility] min/folic 6-16 tablet ity of acid 00:00: under the [place] (VITAMIN 00 tongue. Medical X80-JFXUF Branch ACID) 1,000-400 mcg Lozg cyanocobala 2021-0 Yes 1{tbl} Place 1 [facility] min/folic 6-16 tablet ity of acid 00:00: under the [place] (VITAMIN 00 tongue. Medical Z20-OCDRA Branch ACID) 1,000-400 mcg Lozg cyanocobala 2021-0 Yes 1{tbl} Place 1 [facility] min/folic 6-16 tablet ity of acid 00:00: under the [place] (VITAMIN 00 tongue. Medical M28-BJVZS Branch ACID) 1,000-400 mcg Lozg cyanocobala 2021-0 Yes 1{tbl} Place 1 [facility] min/folic 6-16 tablet ity of acid 00:00: under the [place] (VITAMIN 00 tongue. Medical J47-ECFLZ Branch ACID) 1,000-400 mcg Lozg cyanocobala 2021-0 Yes 1{tbl} Place 1 [facility] min/folic 6-16 tablet ity of acid 00:00: under the [place] (VITAMIN 00 tongue. Medical U58-PXYXZ Branch ACID) 1,000-400 mcg Lozg cyanocobala 1-0 Yes 1{tbl} Place 1 [facility] min/folic 6-16 tablet ity of acid 00:00: under the [place] (VITAMIN 00 tongue. Medical X50-KNLSE Branch ACID) 1,000-400 mcg Lozg cyanocobala 1-0 Yes 1{tbl} Place 1 [facility] min/folic 6-16 tablet ity of acid 00:00: under the [place] (VITAMIN 00 tongue. Medical E98-HQYRQ Branch ACID) 1,000-400 mcg Lozg cyanocobala 2020-0 Yes 1{tbl} Place 1 [facility] min/folic 6-16 tablet ity of acid 00:00: under the [place] (VITAMIN 00 tongue. Medical Y83-TEEOL Branch ACID) 1,000-400 mcg Lozg cyanocobala 2020-0 Yes 1{tbl} Place 1 [facility] min/folic 6-16 tablet ity of acid 00:00: under the [place] (VITAMIN 00 tongue. Medical O18-TIFEI Branch ACID) 1,000-400 mcg Lozg cyanocobala 2020-0 Yes 1{tbl} Place 1 [facility] min/folic 6-16 tablet ity of acid 00:00: under the [place] (VITAMIN 00 tongue. Medical I38-NQJCA Branch ACID) 1,000-400 mcg Lozg cyanocobala 1-0 Yes 1{tbl} Place 1 [facility] min/folic 6-16 tablet ity of acid 00:00: under the [place] (VITAMIN 00 tongue. Medical D12-NHNBM Branch ACID) 1,000-400 mcg Lozg cyanocobala 1-0 Yes 1{tbl} Place 1 [facility] min/folic 6-16 tablet ity of acid 00:00: under the [place] (VITAMIN 00 tongue. Medical Q04-VBKHG Branch ACID) 1,000-400 mcg Lozg cyanocobala 1-0 Yes 1{tbl} Place 1 [facility] min/folic 6-16 tablet ity of acid 00:00: under the [place] (VITAMIN 00 tongue. Medical O27-CBOTO Branch ACID) 1,000-400 mcg Lozg cyanocobala 2021-0 Yes 1{tbl} Place 1 [facility] min/folic 6-16 tablet ity of acid 00:00: under the [place] (VITAMIN 00 tongue. Medical Y58-BQFKS Branch ACID) 1,000-400 mcg Lozg cyanocobala 2021-0 Yes 1{tbl} Place 1 [facility] min/folic 6-16 tablet ity of acid 00:00: under the [place] (VITAMIN 00 tongue. Medical H01-SQAJL Branch ACID) 1,000-400 mcg Lozg cyanocobala 2021-0 Yes 1{tbl} Place 1 [facility] min/folic 6-16 tablet ity of acid 00:00: under the [place] (VITAMIN 00 tongue. Medical C55-NLHYT Branch ACID) 1,000-400 mcg Lozg cyanocobala 2021-0 Yes 1{tbl} Place 1 [facility] min/folic 6-16 tablet ity of acid 00:00: under the [place] (VITAMIN 00 tongue. Medical L87-YCYVT Branch ACID) 1,000-400 mcg Lozg cyanocobala 1-0 Yes 1{tbl} Place 1 [facility] min/folic 6-16 tablet ity of acid 00:00: under the [place] (VITAMIN 00 tongue. Medical Y05-KEUWP Branch ACID) 1,000-400 mcg Lozg cyanocobala 1-0 Yes 1{tbl} Place 1 [facility] n[facility] min/folic 6-16 tablet ity of acid 00:00: under the [place] (VITAMIN 00 tongue. Medical R16-NKBYK Branch ACID) 1,000-400 mcg Lozg cyanocobala 2021-0 Yes 1{tbl} Place 1 [facility] min/folic 6-16 tablet ity of acid 00:00: under the [place] (VITAMIN 00 tongue. Medical E54-HUNQU Branch ACID) 1,000-400 mcg Lozg cyanocobala 2021-0 Yes 1{tbl} Place 1 [facility] min/folic 6-16 tablet ity of acid 00:00: under the [place] (VITAMIN 00 tongue. Medical R24-MVIVX Branch ACID) 1,000-400 mcg Lozg cyanocobala 2021-0 Yes 1{tbl} Place 1 [facility] nivers min/folic 6-16 tablet ity of acid 00:00: under the [place] (VITAMIN 00 tongue. Medical J61-BVUQW Branch ACID) 1,000-400 mcg Lozg cyanocobala 2021-0 Yes 1{tbl} Place 1 [facility] min/folic 6-16 tablet ity of acid 00:00: under the [place] (VITAMIN 00 tongue. Medical Z80-QUFXY Branch ACID) 1,000-400 mcg Lozg cyanocobala 2021-0 Yes 1{tbl} Place 1 [facility]ivers min/folic 6-16 tablet ity of acid 00:00: under the [place] (VITAMIN 00 tongue. Medical H31-BACRJ Branch ACID) 1,000-400 mcg Lozg cyanocobala 2021-0 Yes 1{tbl} Place 1 [facility] min/folic 6-16 tablet ity of acid 00:00: under the [place] (VITAMIN 00 tongue. Medical O64-CCBXA Branch ACID) 1,000-400 mcg Lozg cyanocobala 2021-0 Yes 1{tbl} Place 1 U nivers min/folic 6-16 tablet ity of acid 00:00: under the [place] (VITAMIN 00 tongue. Medical [id number] Branch ACID) 1,000-400 mcg Lozg cyanocobala 2021-0 Yes 1{tbl} Place 1 U nivers min/folic 6-16 tablet ity of acid 00:00: under the [place] (VITAMIN 00 tongue. Medical [id number]-[id number] Branch ACID) 1,000-400 mcg Lozg cyanocobala 2021-0 Yes 1{tbl} Place 1 U nivers min/folic 6-16 tablet ity of acid 00:00: under the [place] (VITAMIN 00 tongue. Medical [id number] Branch ACID) 1,000-400 mcg Lozg cyanocobala 2021-0 Yes 1{tbl} Place 1 [facility] min/folic 6-16 tablet ity of acid 00:00: under the [place] (VITAMIN 00 tongue. Medical F70-HVAVB Branch ACID) 1,000-400 mcg Lozg cyanocobala 2021-0 Yes 1{tbl} Place 1 [facility] min/folic 6-16 tablet ity of acid 00:00: under the [place] (VITAMIN 00 tongue. Medical M79-GDZAH Branch ACID) 1,000-400 mcg Lozg cyanocobala 2021-0 Yes 1{tbl} Place 1 [facility] min/folic 6-16 tablet ity of acid 00:00: under the [place] (VITAMIN 00 tongue. Medical J52-FGAIT Branch ACID) 1,000-400 mcg Lozg cyanocobala 1-0 Yes 1{tbl} Place 1 [facility] min/folic 6-16 tablet ity of acid 00:00: under the [place] (VITAMIN 00 tongue. Medical Z81-HDPWL Branch ACID) 1,000-400 mcg Lozg cyanocobala 1-0 Yes 1{tbl} Place 1 [facility] min/folic 6-16 tablet ity of acid 00:00: under the [place] (VITAMIN 00 tongue. Medical D99-XAMKJ Branch ACID) 1,000-400 mcg Lozg cyanocobala 1-0 Yes 1{tbl} Place 1 [facility] min/folic 6-16 tablet ity of acid 00:00: under the [place] (VITAMIN 00 tongue. Medical W66-GAOYO Branch ACID) 1,000-400 mcg Lozg cyanocobala 1-0 Yes 1{tbl} Place 1 [facility] nivers min/folic 6-16 tablet ity of acid 00:00: under the [place] (VITAMIN 00 tongue. Medical U27-LHWQA Branch ACID) 1,000-400 mcg Lozg cyanocobala 1-0 Yes 1{tbl} Place 1 [facility] min/folic 6-16 tablet ity of acid 00:00: under the [place] (VITAMIN 00 tongue. Medical N56-FYGLH Branch ACID) 1,000-400 mcg Lozg cyanocobala 1-0 Yes 1{tbl} Place 1 [facility] nivers min/folic 6-16 tablet ity of acid 00:00: under the [place] (VITAMIN 00 tongue. Medical C20-PNZIG Branch ACID) 1,000-400 mcg Lozg cyanocobala 2021-0 Yes 1{tbl} Place 1 [facility] n[facility] min/folic 6-16 tablet ity of acid 00:00: under the [place] (VITAMIN 00 tongue. Medical L52-RJDUM Branch ACID) 1,000-400 mcg Lozg cyanocobala 2021-0 Yes 1{tbl} Place 1 [facility] n[facility] min/folic 6-16 tablet ity of acid 00:00: under the [place] (VITAMIN 00 tongue. Medical V92-MXVWS Branch ACID) 1,000-400 mcg Lozg cyanocobala 2021-0 Yes 1{tbl} Place 1 [facility] nivers min/folic 6-16 tablet ity of acid 00:00: under the [place] (VITAMIN 00 tongue. Medical J67-DFAMJ Branch ACID) 1,000-400 mcg Lozg cyanocobala 2021-0 Yes 1{tbl} Place 1 [facility] nivers min/folic 6-16 tablet ity of acid 00:00: under the [place] (VITAMIN 00 tongue. Medical M61-PQUZN Branch ACID) 1,000-400 mcg Lozg cyanocobala 2021-0 Yes 1{tbl} Place 1 [facility] nivers min/folic 6-16 tablet ity of acid 00:00: under the [place] (VITAMIN 00 tongue. Medical J76-BXKTN Branch ACID) 1,000-400 mcg Lozg cyanocobala 2021-0 Yes 1{tbl} Place 1 [facility] nivers min/folic 6-16 tablet ity of acid 00:00: under the [place] (VITAMIN 00 tongue. Medical M12-XYVCJ Branch ACID) 1,000-400 mcg Lozg cyanocobala 2021-0 Yes 1{tbl} Place 1 [facility] nivers min/folic 6-16 tablet ity of acid 00:00: under the [place] (VITAMIN 00 tongue. Medical S41-DHCBD Branch ACID) 1,000-400 mcg Lozg cyanocobala 2021-0 Yes 1{tbl} Place 1 [facility] nivers min/folic 6-16 tablet ity of acid 00:00: under the [place] (VITAMIN 00 tongue. Medical Y82-BRUKV Branch ACID) 1,000-400 mcg Lozg cyanocobala 2021-0 Yes 1{tbl} Place 1 [facility] nivers min/folic 6-16 tablet ity of acid 00:00: under the [place] (VITAMIN 00 tongue. Medical B96-LEYOH Branch ACID) 1,000-400 mcg Lozg cyanocobala 2021-0 Yes 1{tbl} Place 1 [facility] nivers min/folic 6-16 tablet ity of acid 00:00: under the [place] (VITAMIN 00 tongue. Medical X95-USXLX Branch ACID) 1,000-400 mcg Lozg cyanocobala 2021-0 Yes 1{tbl} Place 1 [facility] nivers min/folic 6-16 tablet ity of acid 00:00: under the [place] (VITAMIN 00 tongue. Medical O99-FPUVV Branch ACID) 1,000-400 mcg Lozg cyanocobala 2021-0 Yes 1{tbl} Place 1 [facility] nivers min/folic 6-16 tablet ity of acid 00:00: under the [place] (VITAMIN 00 tongue. Medical L05-YTYEE Branch ACID) 1,000-400 mcg Lozg cyanocobala 1-0 Yes 1{tbl} Place 1 [facility] nivers min/folic 6-16 tablet ity of acid 00:00: under the [place] (VITAMIN 00 tongue. Medical Q41-PBHRI Branch ACID) 1,000-400 mcg Lozg cyanocobala 1-0 Yes 1{tbl} Place 1 [facility] min/folic 6-16 tablet ity of acid 00:00: under the [place] (VITAMIN 00 tongue. Medical X32-VYPES Branch ACID) 1,000-400 mcg Lozg cyanocobala 1-0 Yes 1{tbl} Place 1 [facility] n[facility] min/folic 6-16 tablet ity of acid 00:00: under the [place] (VITAMIN 00 tongue. Medical C91-TYZQR Branch ACID) 1,000-400 mcg Lozg cyanocobala 1-0 Yes 1{tbl} Place 1 [facility] nivers min/folic 6-16 tablet ity of acid 00:00: under the [place] (VITAMIN 00 tongue. Medical H76-OGZIV Branch ACID) 1,000-400 mcg Lozg cyanocobala 2021-0 Yes 1{tbl} Place 1 [facility] nivers min/folic 6-16 tablet ity of acid 00:00: under the [place] (VITAMIN 00 tongue. Medical D59-AVHFL Branch ACID) 1,000-400 mcg Lozg cyanocobala 2021-0 Yes 1{tbl} Place 1 [facility] n[facility] min/folic 6-16 tablet ity of acid 00:00: under the [place] (VITAMIN 00 tongue. Medical B04-QZVVM Branch ACID) 1,000-400 mcg Lozg cyanocobala 2021-0 Yes 1{tbl} Place 1 [facility] nivers min/folic 6-16 tablet ity of acid 00:00: under the [place] (VITAMIN 00 tongue. Medical D34-XVYTO Branch ACID) 1,000-400 mcg Lozg cyanocobala 2021-0 Yes 1{tbl} Place 1 [facility] nivers min/folic 6-16 tablet ity of acid 00:00: under the [place] (VITAMIN 00 tongue. Medical R13-ODGDJ Branch ACID) 1,000-400 mcg Lozg cyanocobala 1-0 Yes 1{tbl} Place 1 [facility] nivers min/folic 6-16 tablet ity of acid 00:00: under the [place] (VITAMIN 00 tongue. Medical E55-ZNNZT Branch ACID) 1,000-400 mcg Lozg cyanocobala 1-0 Yes 1{tbl} Place 1 [facility] nivers min/folic 6-16 tablet ity of acid 00:00: under the [place] (VITAMIN 00 tongue. Medical O39-QFDYB Branch ACID) 1,000-400 mcg Lozg cyanocobala 1-0 Yes 1{tbl} Place 1 [facility] n[facility] min/folic 6-16 tablet ity of acid 00:00: under the [place] (VITAMIN 00 tongue. Medical H13-EFXEC Branch ACID) 1,000-400 mcg Lozg cyanocobala 2020-0 Yes 1{tbl} Place 1 [facility] nivers min/folic 6-16 tablet ity of acid 00:00: under the [place] (VITAMIN 00 tongue. Medical N39-DJNRL Branch ACID) 1,000-400 mcg Lozg cyanocobala 1-0 Yes 1{tbl} Place 1 [facility] nivers min/folic 6-16 tablet ity of acid 00:00: under the [place] (VITAMIN 00 tongue. Medical I46-NIZXC Branch ACID) 1,000-400 mcg Lozg cyanocobala 1-0 Yes 1{tbl} Place 1 [facility] nivers min/folic 6-16 tablet ity of acid 00:00: under the [place] (VITAMIN 00 tongue. Medical D41-SYYBC Branch ACID) 1,000-400 mcg Lozg cyanocobala 2021-0 Yes 1{tbl} Place 1 [facility] nivers min/folic 6-16 tablet ity of acid 00:00: under the [place] (VITAMIN 00 tongue. Medical N28-SJCKB Branch ACID) 1,000-400 mcg Lozg cyanocobala 1-0 Yes 1{tbl} Place 1 [facility] nivers min/folic 6-16 tablet ity of acid 00:00: under the [place] (VITAMIN 00 tongue. Medical A40-IOOLF Branch ACID) 1,000-400 mcg Lozg cyanocobala 2021-0 Yes 1{tbl} Place 1 [facility] nivers min/folic 6-16 tablet ity of acid 00:00: under the [place] (VITAMIN 00 tongue. Medical I50-ERFQD Branch ACID) 1,000-400 mcg Lozg cyanocobala 2021-0 Yes 1{tbl} Place 1 [facility] n[facility] min/folic 6-16 tablet ity of acid 00:00: under the [place] (VITAMIN 00 tongue. Medical X55-BGESI Branch ACID) 1,000-400 mcg Lozg cyanocobala 2021-0 Yes 1{tbl} Place 1 [facility] n[facility] min/folic 6-16 tablet ity of acid 00:00: under the [place] (VITAMIN 00 tongue. Medical C65-XCQKT Branch ACID) 1,000-400 mcg Lozg cyanocobala 2021-0 Yes 1{tbl} Place 1 [facility] nivers min/folic 6-16 tablet ity of acid 00:00: under the [place] (VITAMIN 00 tongue. Medical X15-QNPQV Branch ACID) 1,000-400 mcg Lozg cyanocobala 2021-0 Yes 1{tbl} Place 1 [facility] n[facility] min/folic 6-16 tablet ity of acid 00:00: under the [place] (VITAMIN 00 tongue. Medical I27-KDUCC Branch ACID) 1,000-400 mcg Lozg cyanocobala 2021-0 Yes 1{tbl} Place 1 [facility] n[facility] min/folic 6-16 tablet ity of acid 00:00: under the [place] (VITAMIN 00 tongue. Medical Q56-YJEJO Branch ACID) 1,000-400 mcg Lozg cyanocobala 2021-0 Yes 1{tbl} Place 1 [facility] nivers min/folic 6-16 tablet ity of acid 00:00: under the [place] (VITAMIN 00 tongue. Medical C14-JNEDM Branch ACID) 1,000-400 mcg Lozg cyanocobala 2021-0 Yes 1{tbl} Place 1 [facility] n[facility] min/folic 6-16 tablet ity of acid 00:00: under the [place] (VITAMIN 00 tongue. Medical H01-XYVCV Branch ACID) 1,000-400 mcg Lozg cyanocobala 2021-0 Yes 1{tbl} Place 1 [facility] nivers min/folic 6-16 tablet ity of acid 00:00: under the [place] (VITAMIN 00 tongue. Medical J63-VHENG Branch ACID) 1,000-400 mcg Lozg cyanocobala 1-0 Yes 1{tbl} Place 1 [facility] nivers min/folic 6-16 tablet ity of acid 00:00: under the [place] (VITAMIN 00 tongue. Medical Y54-KCFPO Branch ACID) 1,000-400 mcg Lozg cyanocobala 1-0 Yes 1{tbl} Place 1 [facility] n[facility] min/folic 6-16 tablet ity of acid 00:00: under the [place] (VITAMIN 00 tongue. Medical V47-XFMHV Branch ACID) 1,000-400 mcg Lozg cyanocobala 1-0 Yes 1{tbl} Place 1 [facility] nivers min/folic 6-16 tablet ity of acid 00:00: under the [place] (VITAMIN 00 tongue. Medical D22-BHNMK Branch ACID) 1,000-400 mcg Lozg cyanocobala 2020-0 Yes 1{tbl} Place 1 [facility] n[facility] min/folic 6-16 tablet ity of acid 00:00: under the [place] (VITAMIN 00 tongue. Medical J43-VSYTK Branch ACID) 1,000-400 mcg Lozg cyanocobala 1-0 Yes 1{tbl} Place 1 [facility] nivers min/folic 6-16 tablet ity of acid 00:00: under the [place] (VITAMIN 00 tongue. Medical Y08-DEBOF Branch ACID) 1,000-400 mcg Lozg cyanocobala 1-0 Yes 1{tbl} Place 1 [facility] nivers min/folic 6-16 tablet ity of acid 00:00: under the [place] (VITAMIN 00 tongue. Medical T84-CDXZM Branch ACID) 1,000-400 mcg Lozg cyanocobala 2021-0 Yes 1{tbl} Place 1 [facility] nivers min/folic 6-16 tablet ity of acid 00:00: under the [place] (VITAMIN 00 tongue. Medical C54-WRYKB Branch ACID) 1,000-400 mcg Lozg cyanocobala 1-0 Yes 1{tbl} Place 1 U nivers min/folic 6-16 tablet ity of acid 00:00: under the [place] (VITAMIN 00 tongue. Medical U39-WOFWX Branch ACID) 1,000-400 mcg Lozg cyanocobala 2021-0 Yes 1{tbl} Place 1 [facility] nivers min/folic 6-16 tablet ity of acid 00:00: under the [place] (VITAMIN 00 tongue. Medical G30-RWEEI Branch ACID) 1,000-400 mcg Lozg cyanocobala 2021-0 Yes 1{tbl} Place 1 U nivers min/folic 6-16 tablet ity of acid 00:00: under the [place] (VITAMIN 00 tongue. Medical U60-KLKMV Branch ACID) 1,000-400 mcg Lozg cyanocobala 2021-0 Yes 1{tbl} Place 1 U nivers min/folic 6-16 tablet ity of acid 00:00: under the [place] (VITAMIN 00 tongue. Medical P77-ZOSIJ Branch ACID) 1,000-400 mcg Lozg cyanocobala 2021-0 Yes 1{tbl} Place 1 U nivers min/folic 6-16 tablet ity of acid 00:00: under the [place] (VITAMIN 00 tongue. Medical A58-VBOLE Branch ACID) 1,000-400 mcg Lozg cyanocobala 1-0 Yes 1{tbl} Place 1 U nivers min/folic 6-16 tablet ity of acid 00:00: under the [place] (VITAMIN 00 tongue. Medical Z34-KKOKZ Branch ACID) 1,000-400 mcg Lozg cyanocobala 2021-0 Yes 1{tbl} Place 1 U nivers min/folic 6-16 tablet ity of acid 00:00: under the [place] (VITAMIN 00 tongue. Medical M49-AGIGL Branch ACID) 1,000-400 mcg Lozg cyanocobala 2021-0 Yes 1{tbl} Place 1 U nivers min/folic 6-16 tablet ity of acid 00:00: under the [place] (VITAMIN 00 tongue. Medical L28-DRVLF Branch ACID) 1,000-400 mcg Lozg cyanocobala 2021-0 Yes 1{tbl} Place 1 U nivers min/folic 6-16 tablet ity of acid 00:00: under the [place] (VITAMIN 00 tongue. Medical P42-OLJBD Branch ACID) 1,000-400 mcg Lozg cyanocobala 2021-0 Yes 1{tbl} Place 1 U nivers min/folic 6-16 tablet ity of acid 00:00: under the [place] (VITAMIN 00 tongue. Medical G73-UUXUN Branch ACID) 1,000-400 mcg Lozg cyanocobala 0 Yes 1{tbl} Place 1 [facility] nivers min/folic 6-16 tablet ity of acid 00:00: under the [place] (VITAMIN 00 tongue. Medical M92-MOVOU Branch ACID) 1,000-400 mcg Lozg Cobalamin 2020-0 Yes [id number] 1{tbl} Place 1 [facility] Combination 6-16 Tablet [facility] (B-12) 00:00: under the of 1000-400 00 tongue Medicin MCG SUBL daily. e tramadol 2020-0 Yes [id number] 1{tbl} Take 1 [facility] (ULTRAM) 50 6-16 Tablet by [facility] MG tablet 00:00: mouth of 00 every 8 Medicin hours as e needed for Pain. pregabalin 2020-0 Yes [id number] TAKE 1 [facility] (LYRICA) 6-16 CAPSULE BY Colle [facility] 100 MG 00:00: MOUTH of capsule 00 THREE Medicin TIMES A e DAY baclofen 2020-0 Yes [id number] TAKE 1 [facility] (LIORESAL) 6-16 TABLET BY [facility] 10 MG 00:00: MOUTH of tablet 00 THREE Medicin TIMES A e DAY Cobalamin 2020-0 Yes [id number] 1{tbl} Place 1 [facility] Combination 6-16 Tablet [facility] (-) 00:00: under the of 1000-400 00 tongue Medicin MCG SUBL daily. e Cobalamin 2020-0 Yes [id number] 1{tbl} Place 1 [facility] Combination 6-16 Tablet [facility] (B-) 00:00: under the of 1000-400 00 tongue Medicin MCG SUBL daily. e Cobalamin 2020-0 2020- No [id number] 1{tbl} Place 1 [facility] Combination 6-16 12-13 Tablet [facility]le [facility] (B-12) 00:00: 00:00 under the of 1000-400 00 :00 tongue Medicin MCG SUBL daily. e tramadol 2020-0 2020- No [id number] 1{tbl} Take 1 [facility] (ULTRAM) 50 6-16 09-15 Tablet by [facility] l[facility] MG tablet 00:00: 00:00 mouth of 00 :00 every 8 Medicin hours as e needed for Pain. baclofen 2020- No [id number] TAKE 1 [facility] (LIORESAL) 04-29 TABLET BY [facility] 10 MG 00:00: 00:00 MOUTH of tablet 00 :00 THREE Medicin TIMES A e DAY tramadol 2020- No [id number] 1{tbl} Take 1 [facility] (ULTRAM) 50 04-29 Tablet by [facility] MG tablet 00:00: 00:00 mouth of 00 :00 every 8 Medicin hours as e needed for Pain. baclofen 2020- No [id number] TAKE 1 [facility] (LIORESAL) 04-29 TABLET BY [facility] 10 MG 00:00: 00:00 MOUTH of tablet 00 :00 THREE Medicin TIMES A e DAY meloxicam Yes 7.5mg Take 7.5 [facility] (MOBIC) 7.5 6-04 mg by [facility] MG tablet 00:00: mouth. of 00 Medicin e hydrOXYzine 2020-0 Yes 50mg Take 50 mg [facility] (ATARAX) 50 6-04 by mouth. [facility]ge MG tablet 00:00: of 00 Medicin e meloxicam 2020-0 Yes 7.5mg Take 7.5 [facility] (MOBIC) 7.5 6-04 mg by [facility] MG tablet 00:00: mouth. of 00 Medicin e hydrOXYzine 2020-0 Yes 50mg Take 50 mg [facility] (ATARAX) 50 6-04 by mouth. [facility]ge MG tablet 00:00: of 00 Medicin e meloxicam 2020-0 Yes 7.5mg Take 7.5 [facility] (MOBIC) 7.5 6-04 mg by [facility] MG tablet 00:00: mouth. of 00 Medicin e hydrOXYzine 2020-0 Yes 50mg Take 50 mg [facility] (ATARAX) 50 6-04 by mouth. [facility] MG tablet 00:00: of 00 Medicin e meloxicam 2020-0 Yes 7.5mg Take 7.5 [facility] (MOBIC) 7.5 6-04 mg by [facility] MG tablet 00:00: mouth. of 00 Medicin e hydrOXYzine Yes 50mg Take 50 mg [facility] (ATARAX) 50 6-04 by mouth. Col lege MG tablet 00:00: of Medicin e meloxicam Yes 7.5mg Take 7.5 [facility] (MOBIC) 7.5 6-04 mg by [facility] MG tablet 00:00: mouth. of 00 Medicin e hydrOXYzine Yes 50mg Take 50 mg [facility] (ATARAX) 50 6-04 by mouth. [facility]ge MG tablet 00:00: of Medicin e meloxicam Yes 7.5mg Take 7.5 [place] [facility] (MOBIC) 7.5 6-04 mg by [facility] MG tablet 00:00: mouth. of 00 Medicin e hydrOXYzine Yes 50mg Take 50 mg [facility] (ATARAX) 50 6-04 by mouth. [facility]ge MG tablet 00:00: of Medicin e meloxicam Yes 7.5mg Take 7.5 [place] [facility] (MOBIC) 7.5 6-04 mg by [facility] MG tablet 00:00: mouth. of Medicin e hydrOXYzine Yes 50mg Take 50 mg [facility] (ATARAX) 50 6-04 by mouth. [facility]ge MG tablet 00:00: of Medicin e baclofen 2020- No [id number] TAKE 1 [facility] (LIORESAL) 5-20 06-16 TABLET BY [facility] 10 MG 00:00: 00:00 MOUTH of tablet 00 :00 THREE Medicin TIMES A e DAY pregabalin 2020- No [id number] TAKE 1 [facility] (LYRICA) 4-11 06-16 CAPSULE BY [facility] 100 MG 00:00: 00:00 MOUTH of capsule 00 :00 THREE Medicin TIMES A e DAY traZODone Yes 150mg Take 150 [facility] (Desyrel) 4-06 mg by Health 150 MG 00:00: mouth tablet 00 every night. SUMAtriptan Yes TAKE 1 [facility] (Imitrex) 4-06 TABLET BY [facility]alt [facility] 50 MG 00:00: MOUTH tablet 00 EVERY 15 (FIFTEEN) MINUTES NEEDED FOR MIGRAINE. traZODone Yes 150mg Take 150 [facility] (Desyrel) 4-06 mg by Health 150 MG 00:00: mouth tablet 00 every night. SUMAtriptan 1-0 Yes TAKE 1 [facility] (Imitrex) 4-06 TABLET BY [facility]alt [facility] 50 MG 00:00: MOUTH tablet 00 EVERY 15 (FIFTEEN) MINUTES NEEDED FOR MIGRAINE. traZODone 2021-0 Yes 150mg Take 150 [facility] (Desyrel) 4-06 mg by Health 150 MG 00:00: mouth tablet 00 every night. SUMAtriptan 1-0 Yes TAKE 1 [facility] (Imitrex) 4-06 TABLET BY [facility]alt [facility] 50 MG 00:00: MOUTH tablet 00 EVERY 15 (FIFTEEN) MINUTES NEEDED FOR MIGRAINE. SUMAtriptan 1-0 Yes [id number] 50mg Take 1 [facility] 50 mg 4-06 tablet by ity of tablet 00:00: mouth [place] 00 every 15 Medical (fifteen) Branch minutes as needed for Migraine. SUMAtriptan 1-0 Yes [id number] 50mg Take 1 [facility] 50 mg 4-06 tablet by ity of tablet 00:00: mouth [place] 00 every 15 Medical (fifteen) Branch minutes as needed for Migraine. SUMAtriptan 1-0 Yes [id number] 50mg Take 1 [facility] 50 mg 4-06 tablet by ity of tablet 00:00: mouth [place] 00 every 15 Medical (fifteen) Branch minutes as needed for Migraine. SUMAtriptan 1-0 Yes [id number] 50mg Take 1 [facility] 50 mg 4-06 tablet by ity of tablet 00:00: mouth [place] 00 every 15 Medical (fifteen) Branch minutes as needed for Migraine. SUMAtriptan 1-0 Yes [id number] 50mg Take 1 [facility] 50 mg 4-06 tablet by ity of tablet 00:00: mouth [place] 00 every 15 Medical (fifteen) Branch minutes as needed for Migraine. SUMAtriptan 2021-0 Yes [id number] 50mg Take 1 [facility] 50 mg 4-06 tablet by ity of tablet 00:00: mouth [place] 00 every 15 Medical (fifteen) Branch minutes as needed for Migraine. SUMAtriptan 2021-0 Yes [id number] 50mg Take 1 [facility] 50 mg 4-06 tablet by ity of tablet 00:00: mouth [place] 00 every 15 Medical (fifteen) Branch minutes as needed for Migraine. SUMAtriptan 2021-0 Yes [id number] 50mg Take 1 [facility] 50 mg 4-06 tablet by ity of tablet 00:00: mouth [place] 00 every 15 Medical (fifteen) Branch minutes as needed for Migraine. SUMAtriptan 2021-0 Yes [id number] 50mg Take 1 [facility] 50 mg 4-06 tablet by ity of tablet 00:00: mouth [place] 00 every 15 Medical (fifteen) Branch minutes as needed for Migraine. SUMAtriptan 2021-0 Yes [id number] 50mg Take 1 [facility] 50 mg 4-06 tablet by ity of tablet 00:00: mouth [place] 00 every 15 Medical (fifteen) Branch minutes as needed for Migraine. SUMAtriptan 2021-0 Yes [id number] 50mg Take 1 [facility] 50 mg 4-06 tablet by ity of tablet 00:00: mouth [place] 00 every 15 Medical (fifteen) Branch minutes as needed for Migraine. SUMAtriptan 2021-0 Yes [id number] 50mg Take 1 [facility] 50 mg 4-06 tablet by ity of tablet 00:00: mouth [place] 00 every 15 Medical (fifteen) Branch minutes as needed for Migraine. SUMAtriptan 2021-0 Yes [id number] 50mg Take 1 [facility] 50 mg 4-06 tablet by ity of tablet 00:00: mouth [place] 00 every 15 Medical (fifteen) Branch minutes as needed for Migraine. SUMAtriptan 2021-0 Yes [id number] 50mg Take 1 [facility] 50 mg 4-06 tablet by ity of tablet 00:00: mouth [place] 00 every 15 Medical (fifteen) Branch minutes as needed for Migraine. SUMAtriptan 2021-0 Yes [id number] 50mg Take 1 [facility] 50 mg 4-06 tablet by ity of tablet 00:00: mouth [place] 00 every 15 Medical (fifteen) Branch minutes as needed for Migraine. SUMAtriptan 2021-0 Yes [id number] 50mg Take 1 [facility] 50 mg 4-06 tablet by ity of tablet 00:00: mouth [place] 00 every 15 Medical (fifteen) Branch minutes as needed for Migraine. SUMAtriptan 2021-0 Yes [id number] 50mg Take 1 [facility] 50 mg 4-06 tablet by ity of tablet 00:00: mouth [place] 00 every 15 Medical (fifteen) Branch minutes as needed for Migraine. SUMAtriptan 2021-0 Yes [id number] 50mg Take 1 [facility] 50 mg 4-06 tablet by ity of tablet 00:00: mouth [place] 00 every 15 Medical (fifteen) Branch minutes as needed for Migraine. SUMAtriptan 2021-0 Yes [id number] 50mg Take 1 [facility] 50 mg 4-06 tablet by ity of tablet 00:00: mouth [place] 00 every 15 Medical (fifteen) Branch minutes as needed for Migraine. SUMAtriptan 2021-0 Yes [id number] 50mg Take 1 [facility] 50 mg 4-06 tablet by ity of tablet 00:00: mouth [place] 00 every 15 Medical (fifteen) Branch minutes as needed for Migraine. SUMAtriptan 2021-0 Yes [id number] 50mg Take 1 [facility] 50 mg 4-06 tablet by ity of tablet 00:00: mouth [place] 00 every 15 Medical (fifteen) Branch minutes as needed for Migraine. SUMAtriptan 2021-0 Yes [id number] 50mg Take 1 [facility] 50 mg 4-06 tablet by ity of tablet 00:00: mouth [place] 00 every 15 Medical (fifteen) Branch minutes as needed for Migraine. SUMAtriptan 2021-0 Yes [id number] 50mg Take 1 [facility] 50 mg 4-06 tablet by ity of tablet 00:00: mouth [place] 00 every 15 Medical (fifteen) Branch minutes as needed for Migraine. SUMAtriptan 2021-0 Yes [id number] 50mg Take 1 [facility] 50 mg 4-06 tablet by ity of tablet 00:00: mouth [place] 00 every 15 Medical (fifteen) Branch minutes as needed for Migraine. SUMAtriptan 2021-0 Yes [id number] 50mg Take 1 [facility] 50 mg 4-06 tablet by ity of tablet 00:00: mouth [place] 00 every 15 Medical (fifteen) Branch minutes as needed for Migraine. SUMAtriptan 2021-0 Yes [id number] 50mg Take 1 [facility] 50 mg 4-06 tablet by ity of tablet 00:00: mouth [place] 00 every 15 Medical (fifteen) Branch minutes as needed for Migraine. SUMAtriptan 2021-0 Yes [id number] 50mg Take 1 [facility] 50 mg 4-06 tablet by ity of tablet 00:00: mouth [place] 00 every 15 Medical (fifteen) Branch minutes as needed for Migraine. SUMAtriptan 2021-0 Yes [id number] 50mg Take 1 [facility] 50 mg 4-06 tablet by ity of tablet 00:00: mouth [place] 00 every 15 Medical (fifteen) Branch minutes as needed for Migraine. SUMAtriptan 2021-0 Yes [id number] 50mg Take 1 [facility] 50 mg 4-06 tablet by ity of tablet 00:00: mouth [place] 00 every 15 Medical (fifteen) Branch minutes as needed for Migraine. SUMAtriptan 2021-0 Yes [id number] 50mg Take 1 [facility] 50 mg 4-06 tablet by ity of tablet 00:00: mouth [place] 00 every 15 Medical (fifteen) Branch minutes as needed for Migraine. SUMAtriptan 2021-0 Yes [id number] 50mg Take 1 [facility] 50 mg 4-06 tablet by ity of tablet 00:00: mouth [place] 00 every 15 Medical (fifteen) Branch minutes as needed for Migraine. SUMAtriptan 2021-0 Yes [id number] 50mg Take 1 [facility] 50 mg 4-06 tablet by ity of tablet 00:00: mouth [place] 00 every 15 Medical (fifteen) Branch minutes as needed for Migraine. SUMAtriptan 2021-0 Yes [id number] 50mg Take 1 [facility] 50 mg 4-06 tablet by ity of tablet 00:00: mouth [place] 00 every 15 Medical (fifteen) Branch minutes as needed for Migraine. SUMAtriptan 2021-0 Yes [id number] 50mg Take 1 [facility] 50 mg 4-06 tablet by ity of tablet 00:00: mouth [place] 00 every 15 Medical (fifteen) Branch minutes as needed for Migraine. SUMAtriptan 2021-0 Yes [id number] 50mg Take 1 [facility] 50 mg 4-06 tablet by ity of tablet 00:00: mouth [place] 00 every 15 Medical (fifteen) Branch minutes as needed for Migraine. SUMAtriptan 2021-0 Yes [id number] 50mg Take 1 [facility] 50 mg 4-06 tablet by ity of tablet 00:00: mouth [place] 00 every 15 Medical (fifteen) Branch minutes as needed for Migraine. SUMAtriptan 2021-0 Yes [id number] 50mg Take 1 [facility] 50 mg 4-06 tablet by ity of tablet 00:00: mouth [place] 00 every 15 Medical (fifteen) Branch minutes as needed for Migraine. SUMAtriptan 2021-0 Yes [id number] 50mg Take 1 [facility] 50 mg 4-06 tablet by ity of tablet 00:00: mouth [place] 00 every 15 Medical (fifteen) Branch minutes as needed for Migraine. SUMAtriptan 2021-0 Yes [id number] 50mg Take 1 [facility] 50 mg 4-06 tablet by ity of tablet 00:00: mouth [place] 00 every 15 Medical (fifteen) Branch minutes as needed for Migraine. SUMAtriptan 2021-0 Yes [id number] 50mg Take 1 [facility] 50 mg 4-06 tablet by ity of tablet 00:00: mouth [place] 00 every 15 Medical (fifteen) Branch minutes as needed for Migraine. SUMAtriptan 2021-0 Yes [id number] 50mg Take 1 [facility] 50 mg 4-06 tablet by ity of tablet 00:00: mouth [place] 00 every 15 Medical (fifteen) Branch minutes as needed for Migraine. SUMAtriptan 2021-0 Yes [id number] 50mg Take 1 [facility] 50 mg 4-06 tablet by ity of tablet 00:00: mouth [place] 00 every 15 Medical (fifteen) Branch minutes as needed for Migraine. SUMAtriptan 2021-0 Yes [id number] 50mg Take 1 [facility] 50 mg 4-06 tablet by ity of tablet 00:00: mouth [place] 00 every 15 Medical (fifteen) Branch minutes as needed for Migraine. SUMAtriptan 2021-0 Yes [id number] 50mg Take 1 [facility] 50 mg 4-06 tablet by ity of tablet 00:00: mouth [place] 00 every 15 Medical (fifteen) Branch minutes as needed for Migraine. SUMAtriptan 2021-0 Yes [id number] 50mg Take 1 [facility] 50 mg 4-06 tablet by ity of tablet 00:00: mouth [place] 00 every 15 Medical (fifteen) Branch minutes as needed for Migraine. SUMAtriptan 2021-0 Yes [id number] 50mg Take 1 [facility] 50 mg 4-06 tablet by ity of tablet 00:00: mouth [place] 00 every 15 Medical (fifteen) Branch minutes as needed for Migraine. SUMAtriptan 2021-0 Yes [id number] 50mg Take 1 [facility] 50 mg 4-06 tablet by ity of tablet 00:00: mouth [place] 00 every 15 Medical (fifteen) Branch minutes as needed for Migraine. SUMAtriptan 2021-0 Yes [id number] 50mg Take 1 [facility] 50 mg 4-06 tablet by [facility] of tablet 00:00: mouth [place] 00 every 15 Medical (fifteen) Branch minutes as needed for Migraine. SUMAtriptan 2021-0 Yes [id number] 50mg Take 1 [facility] 50 mg 4-06 tablet by [facility] of tablet 00:00: mouth [place] 00 every 15 Medical (fifteen) Branch minutes as needed for Migraine. SUMAtriptan 2020-0 Yes [id number] 50mg Take 1 [facility] 50 mg 4-06 tablet by ity of tablet 00:00: mouth [place] 00 every 15 Medical (fifteen) Branch minutes as needed for Migraine. SUMAtriptan 2- No [id number] 50mg Take 1 [facility] 50 mg 4-06 12-19 tablet by ity of tablet 00:00: 00:00 mouth [place] 00 :00 every 15 Medical (fifteen) Branch minutes as needed for Migraine. SUMAtriptan 2020-2021- No [id number] 50mg Take 1 [facility] 50 mg 4-06 12-19 tablet by ity of tablet 00:00: 00:00 mouth [place] 00 :00 every 15 Medical (fifteen) Branch minutes as needed for Migraine. SUMAtriptan 2021- No [id number] 50mg Take 1 [facility] 50 mg 4-06 12-19 tablet by ity of tablet 00:00: 00:00 mouth [place] 00 :00 every 15 Medical (fifteen) Branch minutes as needed for Migraine. lidocaine 2020-0 Yes [id number] 1{patch PLACE 1 [facility] (LIDODERM) 3-08 } PATCH ONTO [facility] 5 % patch 00:00: THE SKIN of 00 EVERY 24 Medicin HOURS. e lidocaine 2020-0 Yes [id number] 1{patch PLACE 1 [facility] (LIDODERM) 3-08 } PATCH ONTO [facility] 5 % patch 00:00: THE SKIN of 00 EVERY 24 Medicin HOURS. e lidocaine 2020-0 Yes [id number] 1{patch PLACE 1 [facility] (LIDODERM) 3-08 } PATCH ONTO [facility] 5 % patch 00:00: THE SKIN of 00 EVERY 24 Medicin HOURS. e lidocaine 2020-0 Yes [id number] 1{patch PLACE 1 [facility] (LIDODERM) 3-08 } PATCH ONTO [facility] 5 % patch 00:00: THE SKIN of 00 EVERY 24 Medicin HOURS. e lidocaine 202-0 Yes [id number] 1{patch PLACE 1 [facility] (LIDODERM) 3-08 } PATCH ONTO [facility] 5 % patch 00:00: THE SKIN of 00 EVERY 24 Medicin HOURS. e lidocaine 202-0 Yes [id number] 1{patch PLACE 1 [facility] (LIDODERM) 3-08 } PATCH ONTO [facility] 5 % patch 00:00: THE SKIN of 00 EVERY 24 Medicin HOURS. e lidocaine 2021-0 Yes [id number] 1{patch PLACE 1 [facility] (LIDODERM) 3-08 } PATCH ONTO [facility] 5 % patch 00:00: THE SKIN of 00 EVERY 24 Medicin HOURS. e ipratropium 2021-0 Yes INHALE 3 [facility] -albuterol 3-05 ML EVERY 6 [facility] (Duo-Neb) 00:00: (SIX) 0.5-2.5 00 HOURS mg/3 mL NEEDED FOR nebulizer WHEEZING solution OR SHORTNESS OF BREATH. ipratropium 2021-0 Yes 3mL Inhale 3 [facility] -albuterol 3-05 mL. [facility] (Duo-Neb) 00:00: 0.5-2.5 00 mg/3 mL nebulizer solution ipratropium 2021-0 Yes INHALE 3 [facility] -albuterol 3-05 ML EVERY 6 [facility] (Duo-Neb) 00:00: (SIX) 0.5-2.5 00 HOURS mg/3 mL NEEDED FOR nebulizer WHEEZING solution OR SHORTNESS OF BREATH. ipratropium 2021-0 Yes 3mL Inhale 3 [facility] -albuterol 3-05 mL. Health (Duo-Neb) 00:00: 0.5-2.5 00 mg/3 mL nebulizer solution ipratropium 2021-0 Yes INHALE 3 [facility] -albuterol 3-05 ML EVERY 6 [facility] (Duo-Neb) 00:00: (SIX) 0.5-2.5 00 HOURS mg/3 mL NEEDED FOR nebulizer WHEEZING solution OR SHORTNESS OF BREATH. ipratropium 2021-0 Yes 3mL Inhale 3 [facility] -albuterol 3-05 mL. [facility] (Duo-Neb) 00:00: 0.5-2.5 00 mg/3 mL nebulizer solution ipratropium 2021-0 Yes 3mL Inhale 3 [facility] -albuteroL 3-05 mL every 6 ity of 0.5 mg-3 00:00: (six) [place] mg(2.5 mg 00 hours as Medica l base)/3 mL needed for Bra nch nebulizer Wheezing solution or Shortness of Breath. ipratropium 2021-0 Yes 3mL Inhale 3 [facility] -albuteroL 3-05 mL every 6 ity of 0.5 mg-3 00:00: (six) [place] mg(2.5 mg 00 hours as Medica l base)/3 mL needed for Bra nch nebulizer Wheezing solution or Shortness of Breath. ipratropium 2021-0 Yes 3mL Inhale 3 [facility] -albuteroL 3-05 mL every 6 ity of 0.5 mg-3 00:00: (six) [place] mg(2.5 mg 00 hours as Medica l base)/3 mL needed for Bra nch nebulizer Wheezing solution or Shortness of Breath. ipratropium 2021-0 Yes 3mL Inhale 3 [facility] -albuteroL 3-05 mL every 6 ity of 0.5 mg-3 00:00: (six) [place] mg(2.5 mg 00 hours as Medica l base)/3 mL needed for Bra nch nebulizer Wheezing solution or Shortness of Breath. ipratropium 2021-0 Yes 3mL Inhale 3 [facility] -albuteroL 3-05 mL every 6 ity of 0.5 mg-3 00:00: (six) [place] mg(2.5 mg 00 hours as Medica l base)/3 mL needed for Bra nch nebulizer Wheezing solution or Shortness of Breath. ipratropium 2021-0 Yes 3mL Inhale 3 [facility] -albuteroL 3-05 mL every 6 ity of 0.5 mg-3 00:00: (six) [place] mg(2.5 mg 00 hours as Medica l base)/3 mL needed for Bra nch nebulizer Wheezing solution or Shortness of Breath. ipratropium 2021-0 Yes 3mL Inhale 3 [facility] -albuteroL 3-05 mL every 6 ity of 0.5 mg-3 00:00: (six) [place] mg(2.5 mg 00 hours as Medica l base)/3 mL needed for Bra nch nebulizer Wheezing solution or Shortness of Breath. ipratropium 2021-0 Yes 3mL Inhale 3 [facility] -albuteroL 3-05 mL every 6 ity of 0.5 mg-3 00:00: (six) [place] mg(2.5 mg 00 hours as Medica l base)/3 mL needed for Bra nch nebulizer Wheezing solution or Shortness of Breath. ipratropium 2021-0 Yes 3mL Inhale 3 [facility] -albuteroL 3-05 mL every 6 ity of 0.5 mg-3 00:00: (six) [place] mg(2.5 mg 00 hours as Medica l base)/3 mL needed for Bra nch nebulizer Wheezing solution or Shortness of Breath. ipratropium 2021-0 Yes 3mL Inhale 3 [facility] -albuteroL 3-05 mL every 6 ity of 0.5 mg-3 00:00: (six) [place] mg(2.5 mg 00 hours as Medica l base)/3 mL needed for Bra nch nebulizer Wheezing solution or Shortness of Breath. ipratropium 2021-0 Yes 3mL Inhale 3 [facility] -albuteroL 3-05 mL every 6 ity of 0.5 mg-3 00:00: (six) [place] mg(2.5 mg 00 hours as Medica l base)/3 mL needed for Bra nch nebulizer Wheezing solution or Shortness of Breath. ipratropium 2021-0 Yes 3mL Inhale 3 [facility] -albuteroL 3-05 mL every 6 ity of 0.5 mg-3 00:00: (six) [place] mg(2.5 mg 00 hours as Medica l base)/3 mL needed for Bra nch nebulizer Wheezing solution or Shortness of Breath. ipratropium 2021-0 Yes 3mL Inhale 3 [facility] -albuteroL 3-05 mL every 6 ity of 0.5 mg-3 00:00: (six) [place] mg(2.5 mg 00 hours as Medica l base)/3 mL needed for Bra nch nebulizer Wheezing solution or Shortness of Breath. ipratropium 2021-0 Yes 3mL Inhale 3 [facility] -albuteroL 3-05 mL every 6 ity of 0.5 mg-3 00:00: (six) [place] mg(2.5 mg 00 hours as Medica l base)/3 mL needed for Bra nch nebulizer Wheezing solution or Shortness of Breath. ipratropium 2021-0 Yes 3mL Inhale 3 [facility] -albuteroL 3-05 mL every 6 ity of 0.5 mg-3 00:00: (six) [place] mg(2.5 mg 00 hours as Medica l base)/3 mL needed for Bra nch nebulizer Wheezing solution or Shortness of Breath. ipratropium 2021-0 Yes 3mL Inhale 3 [facility] -albuteroL 3-05 mL every 6 ity of 0.5 mg-3 00:00: (six) [place] mg(2.5 mg 00 hours as Medica l base)/3 mL needed for Bra nch nebulizer Wheezing solution or Shortness of Breath. ipratropium 2021-0 Yes 3mL Inhale 3 [facility] -albuteroL 3-05 mL every 6 ity of 0.5 mg-3 00:00: (six) [place] mg(2.5 mg 00 hours as Medica l base)/3 mL needed for Bra nch nebulizer Wheezing solution or Shortness of Breath. ipratropium 2021-0 Yes 3mL Inhale 3 [facility] -albuteroL 3-05 mL every 6 ity of 0.5 mg-3 00:00: (six) [place] mg(2.5 mg 00 hours as Medica l base)/3 mL needed for Bra nch nebulizer Wheezing solution or Shortness of Breath. ipratropium 2021-0 Yes 3mL Inhale 3 [facility] -albuteroL 3-05 mL every 6 ity of 0.5 mg-3 00:00: (six) [place] mg(2.5 mg 00 hours as Medica l base)/3 mL needed for Bra nch nebulizer Wheezing solution or Shortness of Breath. ipratropium 2021-0 Yes 3mL Inhale 3 [facility] -albuteroL 3-05 mL every 6 ity of 0.5 mg-3 00:00: (six) [place] mg(2.5 mg 00 hours as Medica l base)/3 mL needed for Bra nch nebulizer Wheezing solution or Shortness of Breath. ipratropium 2021-0 Yes 3mL Inhale 3 [facility] -albuteroL 3-05 mL every 6 ity of 0.5 mg-3 00:00: (six) [place] mg(2.5 mg 00 hours as Medica l base)/3 mL needed for Bra nch nebulizer Wheezing solution or Shortness of Breath. ipratropium 2021-0 Yes 3mL Inhale 3 [facility] -albuteroL 3-05 mL every 6 ity of 0.5 mg-3 00:00: (six) [place] mg(2.5 mg 00 hours as Medica l base)/3 mL needed for Bra nch nebulizer Wheezing solution or Shortness of Breath. ipratropium 2021-0 Yes 3mL Inhale 3 [facility] -albuteroL 3-05 mL every 6 ity of 0.5 mg-3 00:00: (six) [place] mg(2.5 mg 00 hours as Medica l base)/3 mL needed for Bra nch nebulizer Wheezing solution or Shortness of Breath. ipratropium 2021-0 Yes 3mL Inhale 3 [facility] -albuteroL 3-05 mL every 6 ity of 0.5 mg-3 00:00: (six) [place] mg(2.5 mg 00 hours as Medica l base)/3 mL needed for Bra nch nebulizer Wheezing solution or Shortness of Breath. ipratropium 2021-0 Yes 3mL Inhale 3 [facility] -albuteroL 3-05 mL every 6 ity of 0.5 mg-3 00:00: (six) [place] mg(2.5 mg 00 hours as Medica l base)/3 mL needed for Bra nch nebulizer Wheezing solution or Shortness of Breath. ipratropium 2021-0 Yes 3mL Inhale 3 [facility] -albuteroL 3-05 mL every 6 ity of 0.5 mg-3 00:00: (six) [place] mg(2.5 mg 00 hours as Medica l base)/3 mL needed for Bra nch nebulizer Wheezing solution or Shortness of Breath. ipratropium 2021-0 Yes 3mL Inhale 3 [facility] -albuteroL 3-05 mL every 6 ity of 0.5 mg-3 00:00: (six) [place] mg(2.5 mg 00 hours as Medica l base)/3 mL needed for Bra nch nebulizer Wheezing solution or Shortness of Breath. ipratropium 2021-0 Yes 3mL Inhale 3 [facility] -albuteroL 3-05 mL every 6 ity of 0.5 mg-3 00:00: (six) [place] mg(2.5 mg 00 hours as Medica l base)/3 mL needed for Bra nch nebulizer Wheezing solution or Shortness of Breath. ipratropium 2021-0 Yes 3mL Inhale 3 [facility] -albuteroL 3-05 mL every 6 ity of 0.5 mg-3 00:00: (six) [place] mg(2.5 mg 00 hours as Medica l base)/3 mL needed for Bra nch nebulizer Wheezing solution or Shortness of Breath. ipratropium 2021-0 Yes 3mL Inhale 3 [facility] -albuteroL 3-05 mL every 6 ity of 0.5 mg-3 00:00: (six) [place] mg(2.5 mg 00 hours as Medica l base)/3 mL needed for Bra nch nebulizer Wheezing solution or Shortness of Breath. ipratropium 2021-0 Yes 3mL Inhale 3 [facility] -albuteroL 3-05 mL every 6 ity of 0.5 mg-3 00:00: (six) [place] mg(2.5 mg 00 hours as Medica l base)/3 mL needed for Bra nch nebulizer Wheezing solution or Shortness of Breath. ipratropium 2021-0 Yes 3mL Inhale 3 [facility] -albuteroL 3-05 mL every 6 ity of 0.5 mg-3 00:00: (six) [place] mg(2.5 mg 00 hours as Medica l base)/3 mL needed for Bra nch nebulizer Wheezing solution or Shortness of Breath. ipratropium 2021-0 Yes 3mL Inhale 3 [facility] -albuteroL 3-05 mL every 6 ity of 0.5 mg-3 00:00: (six) [place] mg(2.5 mg 00 hours as Medica l base)/3 mL needed for Bra nch nebulizer Wheezing solution or Shortness of Breath. ipratropium 2021-0 Yes 3mL Inhale 3 [facility] -albuteroL 3-05 mL every 6 ity of 0.5 mg-3 00:00: (six) [place] mg(2.5 mg 00 hours as Medica l base)/3 mL needed for Bra nch nebulizer Wheezing solution or Shortness of Breath. ipratropium 2021-0 Yes 3mL Inhale 3 [facility] -albuteroL 3-05 mL every 6 ity of 0.5 mg-3 00:00: (six) [place] mg(2.5 mg 00 hours as Medica l base)/3 mL needed for Bra nch nebulizer Wheezing solution or Shortness of Breath. ipratropium 2021-0 Yes 3mL Inhale 3 [facility] -albuteroL 3-05 mL every 6 ity of 0.5 mg-3 00:00: (six) [place] mg(2.5 mg 00 hours as Medica l base)/3 mL needed for Bra nch nebulizer Wheezing solution or Shortness of Breath. ipratropium 2021-0 Yes 3mL Inhale 3 [facility] -albuteroL 3-05 mL every 6 ity of 0.5 mg-3 00:00: (six) [place] mg(2.5 mg 00 hours as Medica l base)/3 mL needed for Bra nch nebulizer Wheezing solution or Shortness of Breath. ipratropium 2021-0 Yes 3mL Inhale 3 [facility] -albuteroL 3-05 mL every 6 ity of 0.5 mg-3 00:00: (six) [place] mg(2.5 mg 00 hours as Medica l base)/3 mL needed for Bra nch nebulizer Wheezing solution or Shortness of Breath. ipratropium 2021-0 Yes 3mL Inhale 3 [facility] -albuteroL 3-05 mL every 6 ity of 0.5 mg-3 00:00: (six) [place] mg(2.5 mg 00 hours as Medica l base)/3 mL needed for Bra nch nebulizer Wheezing solution or Shortness of Breath. ipratropium 2021-0 Yes 3mL Inhale 3 [facility] -albuteroL 3-05 mL every 6 ity of 0.5 mg-3 00:00: (six) [place] mg(2.5 mg 00 hours as Medica l base)/3 mL needed for Bra nch nebulizer Wheezing solution or Shortness of Breath. ipratropium 2021-0 Yes 3mL Inhale 3 [facility] -albuteroL 3-05 mL every 6 ity of 0.5 mg-3 00:00: (six) [place] mg(2.5 mg 00 hours as Medica l base)/3 mL needed for Bra nch nebulizer Wheezing solution or Shortness of Breath. ipratropium 2021-0 Yes 3mL Inhale 3 [facility] -albuteroL 3-05 mL every 6 ity of 0.5 mg-3 00:00: (six) [place] mg(2.5 mg 00 hours as Medica l base)/3 mL needed for Bra nch nebulizer Wheezing solution or Shortness of Breath. ipratropium 2021-0 Yes 3mL Inhale 3 [facility] -albuteroL 3-05 mL every 6 ity of 0.5 mg-3 00:00: (six) [place] mg(2.5 mg 00 hours as Medica l base)/3 mL needed for Bra nch nebulizer Wheezing solution or Shortness of Breath. ipratropium 2021-0 Yes 3mL Inhale 3 [facility] -albuteroL 3-05 mL every 6 ity of 0.5 mg-3 00:00: (six) [place] mg(2.5 mg 00 hours as Medica l base)/3 mL needed for Bra nch nebulizer Wheezing solution or Shortness of Breath. ipratropium 2021-0 Yes 3mL Inhale 3 [facility] -albuteroL 3-05 mL every 6 ity of 0.5 mg-3 00:00: (six) [place] mg(2.5 mg 00 hours as Medica l base)/3 mL needed for Bra nch nebulizer Wheezing solution or Shortness of Breath. ipratropium 2021-0 Yes 3mL Inhale 3 [facility] -albuteroL 3-05 mL every 6 ity of 0.5 mg-3 00:00: (six) [place] mg(2.5 mg 00 hours as Medica l base)/3 mL needed for Bra nch nebulizer Wheezing solution or Shortness of Breath. ipratropium 2021-0 Yes 3mL Inhale 3 [facility] -albuteroL 3-05 mL every 6 ity of 0.5 mg-3 00:00: (six) [place] mg(2.5 mg 00 hours as Medica l base)/3 mL needed for Bra nch nebulizer Wheezing solution or Shortness of Breath. ipratropium 2021-0 Yes 3mL Inhale 3 [facility] -albuteroL 3-05 mL every 6 ity of 0.5 mg-3 00:00: (six) [place] mg(2.5 mg 00 hours as Medica l base)/3 mL needed for Bra nch nebulizer Wheezing solution or Shortness of Breath. ipratropium 2021-0 Yes 3mL Inhale 3 [facility] -albuteroL 3-05 mL every 6 ity of 0.5 mg-3 00:00: (six) [place] mg(2.5 mg 00 hours as Medica l base)/3 mL needed for Bra nch nebulizer Wheezing solution or Shortness of Breath. ipratropium 2021-0 Yes 3mL Inhale 3 [facility] -albuteroL 3-05 mL every 6 ity of 0.5 mg-3 00:00: (six) [place] mg(2.5 mg 00 hours as Medica l base)/3 mL needed for Bra nch nebulizer Wheezing solution or Shortness of Breath. ipratropium 2021-0 Yes 3mL Inhale 3 [facility] -albuteroL 3-05 mL every 6 ity of 0.5 mg-3 00:00: (six) [place] mg(2.5 mg 00 hours as Medica l base)/3 mL needed for Bra nch nebulizer Wheezing solution or Shortness of Breath. ipratropium 2021-0 Yes 3mL Inhale 3 [facility] -albuteroL 3-05 mL every 6 ity of 0.5 mg-3 00:00: (six) [place] mg(2.5 mg 00 hours as Medica l base)/3 mL needed for Bra nch nebulizer Wheezing solution or Shortness of Breath. ipratropium 2021-0 Yes 3mL Inhale 3 [facility] -albuteroL 3-05 mL every 6 ity of 0.5 mg-3 00:00: (six) [place] mg(2.5 mg 00 hours as Medica l base)/3 mL needed for Bra nch nebulizer Wheezing solution or Shortness of Breath. ipratropium 2021-0 Yes 3mL Inhale 3 [facility] -albuteroL 3-05 mL every 6 ity of 0.5 mg-3 00:00: (six) [place] mg(2.5 mg 00 hours as Medica l base)/3 mL needed for Bra nch nebulizer Wheezing solution or Shortness of Breath. ipratropium 2021-0 Yes 3mL Inhale 3 [facility] -albuteroL 3-05 mL every 6 ity of 0.5 mg-3 00:00: (six) [place] mg(2.5 mg 00 hours as Medica l base)/3 mL needed for Bra nch nebulizer Wheezing solution or Shortness of Breath. ipratropium 2021-0 Yes 3mL Inhale 3 [facility] -albuteroL 3-05 mL every 6 ity of 0.5 mg-3 00:00: (six) [place] mg(2.5 mg 00 hours as Medica l base)/3 mL needed for Bra nch nebulizer Wheezing solution or Shortness of Breath. ipratropium 2021-0 Yes 3mL Inhale 3 [facility] -albuteroL 3-05 mL every 6 ity of 0.5 mg-3 00:00: (six) [place] mg(2.5 mg 00 hours as Medica l base)/3 mL needed for Bra nch nebulizer Wheezing solution or Shortness of Breath. ipratropium 2021-0 Yes 3mL Inhale 3 [facility] -albuteroL 3-05 mL every 6 ity of 0.5 mg-3 00:00: (six) [place] mg(2.5 mg 00 hours as Medica l base)/3 mL needed for Bra nch nebulizer Wheezing solution or Shortness of Breath. ipratropium 2021-0 Yes 3mL Inhale 3 [facility] -albuteroL 3-05 mL every 6 ity of 0.5 mg-3 00:00: (six) [place] mg(2.5 mg 00 hours as Medica l base)/3 mL needed for Bra nch nebulizer Wheezing solution or Shortness of Breath. ipratropium 2021-0 Yes 3mL Inhale 3 [facility] -albuteroL 3-05 mL every 6 ity of 0.5 mg-3 00:00: (six) [place] mg(2.5 mg 00 hours as Medica l base)/3 mL needed for Bra nch nebulizer Wheezing solution or Shortness of Breath. ipratropium 2021-0 Yes 3mL Inhale 3 [facility] -albuteroL 3-05 mL every 6 ity of 0.5 mg-3 00:00: (six) [place] mg(2.5 mg 00 hours as Medica l base)/3 mL needed for Bra nch nebulizer Wheezing solution or Shortness of Breath. ipratropium 2021-0 Yes 3mL Inhale 3 [facility] -albuteroL 3-05 mL every 6 ity of 0.5 mg-3 00:00: (six) [place] mg(2.5 mg 00 hours as Medica l base)/3 mL needed for Bra nch nebulizer Wheezing solution or Shortness of Breath. ipratropium 2021-0 Yes 3mL Inhale 3 [facility] -albuteroL 3-05 mL every 6 ity of 0.5 mg-3 00:00: (six) [place] mg(2.5 mg 00 hours as Medica l base)/3 mL needed for Bra nch nebulizer Wheezing solution or Shortness of Breath. ipratropium 2021-0 Yes 3mL Inhale 3 [facility] -albuteroL 3-05 mL every 6 ity of 0.5 mg-3 00:00: (six) [place] mg(2.5 mg 00 hours as Medica l base)/3 mL needed for Bra nch nebulizer Wheezing solution or Shortness of Breath. ipratropium 2021-0 Yes 3mL Inhale 3 [facility] -albuteroL 3-05 mL every 6 ity of 0.5 mg-3 00:00: (six) [place] mg(2.5 mg 00 hours as Medica l base)/3 mL needed for Bra nch nebulizer Wheezing solution or Shortness of Breath. ipratropium 2021-0 Yes 3mL Inhale 3 [facility] -albuteroL 3-05 mL every 6 ity of 0.5 mg-3 00:00: (six) [place] mg(2.5 mg 00 hours as Medica l base)/3 mL needed for Bra nch nebulizer Wheezing solution or Shortness of Breath. ipratropium 2021-0 Yes 3mL Inhale 3 [facility] -albuteroL 3-05 mL every 6 ity of 0.5 mg-3 00:00: (six) [place] mg(2.5 mg 00 hours as Medica l base)/3 mL needed for Bra nch nebulizer Wheezing solution or Shortness of Breath. ipratropium 2021-0 Yes 3mL Inhale 3 [facility] -albuteroL 3-05 mL every 6 ity of 0.5 mg-3 00:00: (six) [place] mg(2.5 mg 00 hours as Medica l base)/3 mL needed for Bra nch nebulizer Wheezing solution or Shortness of Breath. ipratropium 2021-0 Yes 3mL Inhale 3 [facility] -albuteroL 3-05 mL every 6 ity of 0.5 mg-3 00:00: (six) [place] mg(2.5 mg 00 hours as Medica l base)/3 mL needed for Bra nch nebulizer Wheezing solution or Shortness of Breath. ipratropium 2021-0 Yes 3mL Inhale 3 [facility] -albuteroL 3-05 mL every 6 ity of 0.5 mg-3 00:00: (six) [place] mg(2.5 mg 00 hours as Medica l base)/3 mL needed for Bra nch nebulizer Wheezing solution or Shortness of Breath. ipratropium 2021-0 Yes 3mL Inhale 3 [facility] -albuteroL 3-05 mL every 6 ity of 0.5 mg-3 00:00: (six) [place] mg(2.5 mg 00 hours as Medica l base)/3 mL needed for Bra nch nebulizer Wheezing solution or Shortness of Breath. ipratropium 2021-0 Yes 3mL Inhale 3 [facility] -albuteroL 3-05 mL every 6 ity of 0.5 mg-3 00:00: (six) [place] mg(2.5 mg 00 hours as Medica l base)/3 mL needed for Bra nch nebulizer Wheezing solution or Shortness of Breath. ipratropium 2021-0 Yes 3mL Inhale 3 [facility] -albuteroL 3-05 mL every 6 ity of 0.5 mg-3 00:00: (six) [place] mg(2.5 mg 00 hours as Medica l base)/3 mL needed for Bra nch nebulizer Wheezing solution or Shortness of Breath. ipratropium 2021-0 Yes 3mL Inhale 3 [facility] -albuteroL 3-05 mL every 6 ity of 0.5 mg-3 00:00: (six) [place] mg(2.5 mg 00 hours as Medica l base)/3 mL needed for Bra nch nebulizer Wheezing solution or Shortness of Breath. ipratropium 2021-0 Yes 3mL Inhale 3 [facility] -albuteroL 3-05 mL every 6 ity of 0.5 mg-3 00:00: (six) [place] mg(2.5 mg 00 hours as Medica l base)/3 mL needed for Bra nch nebulizer Wheezing solution or Shortness of Breath. ipratropium 2021-0 Yes 3mL Inhale 3 [facility] -albuteroL 3-05 mL every 6 ity of 0.5 mg-3 00:00: (six) [place] mg(2.5 mg 00 hours as Medica l base)/3 mL needed for Bra nch nebulizer Wheezing solution or Shortness of Breath. ipratropium 2021-0 Yes 3mL Inhale 3 [facility] -albuteroL 3-05 mL every 6 ity of 0.5 mg-3 00:00: (six) [place] mg(2.5 mg 00 hours as Medica l base)/3 mL needed for Bra nch nebulizer Wheezing solution or Shortness of Breath. ipratropium 2021-0 Yes 3mL Inhale 3 [facility] -albuteroL 3-05 mL every 6 ity of 0.5 mg-3 00:00: (six) [place] mg(2.5 mg 00 hours as Medica l base)/3 mL needed for Bra nch nebulizer Wheezing solution or Shortness of Breath. ipratropium 2021-0 Yes 3mL Inhale 3 [facility] -albuteroL 3-05 mL every 6 ity of 0.5 mg-3 00:00: (six) [place] mg(2.5 mg 00 hours as Medica l base)/3 mL needed for Bra nch nebulizer Wheezing solution or Shortness of Breath. ipratropium 2021-0 Yes 3mL Inhale 3 [facility] -albuteroL 3-05 mL every 6 ity of 0.5 mg-3 00:00: (six) [place] mg(2.5 mg 00 hours as Medica l base)/3 mL needed for Bra nch nebulizer Wheezing solution or Shortness of Breath. ipratropium 2021-0 Yes 3mL Inhale 3 [facility] -albuteroL 3-05 mL every 6 ity of 0.5 mg-3 00:00: (six) [place] mg(2.5 mg 00 hours as Medica l base)/3 mL needed for Bra nch nebulizer Wheezing solution or Shortness of Breath. ipratropium 2021-0 Yes 3mL Inhale 3 [facility] -albuteroL 3-05 mL every 6 ity of 0.5 mg-3 00:00: (six) [place] mg(2.5 mg 00 hours as Medica l base)/3 mL needed for Bra nch nebulizer Wheezing solution or Shortness of Breath. ipratropium 2021-0 Yes 3mL Inhale 3 [facility] -albuteroL 3-05 mL every 6 ity of 0.5 mg-3 00:00: (six) [place] mg(2.5 mg 00 hours as Medica l base)/3 mL needed for Bra nch nebulizer Wheezing solution or Shortness of Breath. ipratropium 2021-0 Yes 3mL Inhale 3 [facility] -albuteroL 3-05 mL every 6 ity of 0.5 mg-3 00:00: (six) [place] mg(2.5 mg 00 hours as Medica l base)/3 mL needed for Bra nch nebulizer Wheezing solution or Shortness of Breath. ipratropium 2021-0 Yes 3mL Inhale 3 [facility] -albuteroL 3-05 mL every 6 ity of 0.5 mg-3 00:00: (six) [place] mg(2.5 mg 00 hours as Medica l base)/3 mL needed for Bra nch nebulizer Wheezing solution or Shortness of Breath. ipratropium 2021-0 Yes 3mL Inhale 3 [facility] -albuteroL 3-05 mL every 6 ity of 0.5 mg-3 00:00: (six) [place] mg(2.5 mg 00 hours as Medica l base)/3 mL needed for Bra n[facility] nebulizer Wheezing solution or Shortness of Breath. ipratropium 2021-0 Yes 3mL Inhale 3 Un otoniel -albuteroL 3-05 mL every 6 ity of 0.5 mg-3 00:00: (six) [place] mg(2.5 mg 00 hours as Medica l base)/3 mL needed for Bra n[facility] nebulizer Wheezing solution or Shortness of Breath. ipratropium 2021-0 Yes 3mL Inhale 3 Un otoniel -albuteroL 3-05 mL every 6 ity of 0.5 mg-3 00:00: (six) [place] mg(2.5 mg 00 hours as Medica l base)/3 mL needed for Bra n[facility] nebulizer Wheezing solution or Shortness of Breath. ipratropium 2021-0 Yes 3mL Inhale 3 Un otoniel -albuteroL 3-05 mL every 6 ity of 0.5 mg-3 00:00: (six) [place] mg(2.5 mg 00 hours as Medica l base)/3 mL needed for Bra n[facility] nebulizer Wheezing solution or Shortness of Breath. ipratropium 2021-0 Yes 3mL Inhale 3 Un otoniel -albuteroL 3-05 mL every 6 ity of 0.5 mg-3 00:00: (six) [place] mg(2.5 mg 00 hours as Medica l base)/3 mL needed for Bra nch nebulizer Wheezing solution or Shortness of Breath. ipratropium 2021-0 Yes 3mL Inhale 3 Un o[facility]iel -albuteroL 3-05 mL every 6 ity of 0.5 mg-3 00:00: (six) [place] mg(2.5 mg 00 hours as Medica l base)/3 mL needed for Bra nch nebulizer Wheezing solution or Shortness of Breath. ipratropium 2021-0 Yes 3mL Inhale 3 Un o[facility]iel -albuteroL 3-05 mL every 6 ity of 0.5 mg-3 00:00: (six) [place] mg(2.5 mg 00 hours as Medica l base)/3 mL needed for Bra nch nebulizer Wheezing solution or Shortness of Breath. ipratropium 2021-0 Yes 3mL Inhale 3 Un o[facility] -albuteroL 3-05 mL every 6 ity of 0.5 mg-3 00:00: (six) [place] mg(2.5 mg 00 hours as Medica l base)/3 mL needed for Bra nch nebulizer Wheezing solution or Shortness of Breath. ipratropium 2021-0 Yes 3mL Inhale 3 Un o[facility] -albuteroL 3-05 mL every 6 ity of 0.5 mg-3 00:00: (six) [place] mg(2.5 mg 00 hours as Medica l base)/3 mL needed for Bra nch nebulizer Wheezing solution or Shortness of Breath. ipratropium 2021-0 Yes 3mL Inhale 3 [facility] -albuteroL 3-05 mL every 6 ity of 0.5 mg-3 00:00: (six) [place] mg(2.5 mg 00 hours as Medica l base)/3 mL needed for Bra nch nebulizer Wheezing solution or Shortness of Breath. ipratropium 2021-0 Yes 3mL Inhale 3 [facility] -albuteroL 3-05 mL every 6 ity of 0.5 mg-3 00:00: (six) [place] mg(2.5 mg 00 hours as Medica l base)/3 mL needed for Bra nch nebulizer Wheezing solution or Shortness of Breath. ipratropium 1-0 Yes 3mL Inhale 3 [facility] -albuteroL 3-05 mL every 6 ity of 0.5 mg-3 00:00: (six) [place] mg(2.5 mg 00 hours as Medica l base)/3 mL needed for Bra nch nebulizer Wheezing solution or Shortness of Breath. ipratropium 1-0 Yes 3mL Inhale 3 [facility] -albuteroL 3-05 mL every 6 ity of 0.5 mg-3 00:00: (six) [place] mg(2.5 mg 00 hours as Medica l base)/3 mL needed for Bra nch nebulizer Wheezing solution or Shortness of Breath. ipratropium 2021-0 Yes 3mL Inhale 3 [facility] -albuteroL 3-05 mL every 6 ity of 0.5 mg-3 00:00: (six) [place] mg(2.5 mg 00 hours as Medica l base)/3 mL needed for Bra nch nebulizer Wheezing solution or Shortness of Breath. ipratropium 2021-0 Yes 3mL Inhale 3 [facility] -albuteroL 3-05 mL every 6 ity of 0.5 mg-3 00:00: (six) [place] mg(2.5 mg 00 hours as Medica [facility] base)/3 mL needed for Bra nch nebulizer Wheezing solution or Shortness of Breath. ipratropium 2021-0 Yes 3mL Inhale 3 [facility] -albuteroL 3-05 mL every 6 ity of 0.5 mg-3 00:00: (six) [place] mg(2.5 mg 00 hours as [facility] base)/3 mL needed for Bra nch nebulizer Wheezing solution or Shortness of Breath. ipratropium 2021-0 Yes 3mL Inhale 3 [facility] -albuteroL 3-05 mL every 6 ity of 0.5 mg-3 00:00: (six) [place] mg(2.5 mg 00 hours as [facility] base)/3 mL needed for Bra nch nebulizer Wheezing solution or Shortness of Breath. ipratropium 1-0 Yes 3mL Inhale 3 [facility] -albuteroL 3-05 mL every 6 ity of 0.5 mg-3 00:00: (six) [place] mg(2.5 mg 00 hours as [facility] base)/3 mL needed for Bra nch nebulizer Wheezing solution or Shortness of Breath. ipratropium 2020-0 Yes 3mL Inhale 3 [facility] -albuteroL 3-05 mL every 6 ity of 0.5 mg-3 00:00: (six) [place] mg(2.5 mg 00 hours as Med[facility] base)/3 mL needed for Bra nch nebulizer Wheezing solution or Shortness of Breath. ipratropium 2020-0 Yes 3mL Inhale 3 [facility] -albuteroL 3-05 mL every 6 ity of 0.5 mg-3 00:00: (six) [place] mg(2.5 mg 00 hours as Med[facility] l base)/3 mL needed for Bra nch nebulizer Wheezing solution or Shortness of Breath. ipratropium 2020-0 Yes 3mL Inhale 3 [facility] -albuteroL 3-05 mL every 6 ity of 0.5 mg-3 00:00: (six) [place] mg(2.5 mg 00 hours as Medica l base)/3 mL needed for Bra nch nebulizer Wheezing solution or Shortness of Breath. amitriptyli 2020-0 Yes [id number] TAKE 1 [facility] (ELAVIL) 3-01 TABLET BY [facility] 50 MG 00:00: MOUTH of tablet 00 EVERY DAY Medicin AT NIGHT e amitriptyli 2020-0 Yes [id number] TAKE 1 [facility] (ELAVIL) 3-01 TABLET BY [facility] 50 MG 00:00: MOUTH of tablet 00 EVERY DAY Medicin AT NIGHT e amitriptyli 2020-0 Yes [id number] TAKE 1 [facility] (ELAVIL) 3-01 TABLET BY [facility] 50 MG 00:00: MOUTH of tablet 00 EVERY DAY Medicin AT NIGHT e amitriptyli 2020- 2021- No [id number] TAKE 1 [facility] ne (ELAVIL) 3-01 12-13 TABLET BY [facility] 50 MG 00:00: 00:00 MOUTH of tablet 00 :00 EVERY DAY Medicin AT NIGHT e tramadol 1- No [id number] 1{tbl} Take 1 [facility] (ULTRAM) 50 2-26 06-16 Tablet by [facility] MG tablet 00:00: 00:00 mouth of 00 :00 every 8 Medicin hours as e needed for Pain. lidocaine 2020-[address] [facility]oderm[facility] patch 00:00: THE SKIN 00 EVERY 24 HOURS. lidocaine 2020-[address] [facility] (Lidoderm[facility] 1[facility] % patch 00:00: THE SKIN 00 EVERY 24 HOURS. lidocaine 2020-[address] 1 [facility] (Lidoderm) 1-[facility] % patch 00:00: THE SKIN 00 EVERY 24 HOURS. EPINEPHrine 2020-0 Yes 0.3 ML [facility] (Epipen) 1-22 [facility] 0.3 00:00: [place] MG/0.3ML 00 NEEDED injection (ANAPHYLAX syringe IS). EPINEPHrine 2020-0 Yes 0.3 ML [facility] (Epipen) 1-22 [facility] 0.3 00:00: [place] MG/0.3ML 00 NEEDED injection (ANAPHYLAX syringe IS). EPINEPHrine 2021-0 Yes 0.3 ML BY [facility] (Epipen) 1-22 [facility]CU [facility]alt [facility] 0.3 00:00: [place] MG/0.3ML 00 NEEDED injection (ANAPHYLAX syringe IS). tramadol 2019- Yes [id number] 1{tbl} Take 1 [facility] (ULTRAM) 50 1-18 Tablet by [facility] MG tablet 00:00: mouth of 00 every 8 Medicin hours as e needed for Pain. lidocaine 2019-11 Yes [id number] 1{patch Place 1 [facility] (LIDODERM) 1-18 } Patch onto [facility] 5 % patch 00:00: the skin of 00 every 24 Medicin hours. e baclofen 2019-11 Yes [id number] TAKE 1 [facility] (LIORESAL) 0-16 TABLET BY [facility] 10 MG 00:00: MOUTH of tablet 00 THREE Medicin TIMES A e DAY OneTouch 2019-11 Yes USE LANCET [facility] 0-06 2 TIMES [facility] Lancets 33G 00:00: DAY misc 00 OneTouch 2019-11 Yes USE LANCET [facility] 0-06 2 TIMES [facility] Lancets 33G 00:00: DAY misc 00 OneTouch 2019-11 Yes USE LANCET [facility] 0-06 2 TIMES [facility] 33G 00:00: DAY misc 00 VENLAFAXINE 2020-0 Yes Take by [place] [facility] HCL OR 8-19 mouth. College 20:19: of 52 Medicin e sumatriptan 2020-0 Yes 50mg Take 50 mg [facility] (IMITREX) 8-19 by mouth Colleg e 50 MG 20:19: once as of tablet 52 needed for Medicin Migraine. e VENLAFAXINE 2020-0 Yes Take by [facility] HCL OR 8-19 mouth. College 20:19: of 52 Medicin e sumatriptan 2020-0 Yes 50mg Take 50 mg [facility] (IMITREX) 8-19 by mouth Colleg e 50 MG 20:19: once as of tablet 52 needed for Medicin Migraine. e Promethazin 2020-0 Yes Take by [place] [facility] e HCl 8-19 mouth. College (PHENERGAN 20:19: of OR) 40 Medicin e Sucralfate 2020-0 Yes Take by [facility] (CARAFATE 8-19 mouth. College OR) 20:19: of 40 Medicin e MAGNESIUM 2020-0 Yes Take by [facility] CITRATE OR 8-19 mouth as Colle ge 20:19: needed. of 40 Medicin e oxybutynin 2020-0 Yes 5mg Take 5 mg [facility] (DITROPAN) 8-19 by mouth [facility]le [facility] 5 MG tablet 20:19: two times o f 40 daily. Medicin e naproxen 2020-0 Yes 500mg Take 500 [facility] (NAPROSYN) 8-19 mg by [place] 500 MG 20:19: mouth 2 of tablet 40 times Medicin daily e (with meals). Promethazin 2020-0 Yes Take by [place] [facility] e HCl - mouth. [facility] (PHENERGAN 20:19: of OR) 40 Medicin e Sucralfate 2020-0 Yes Take by [facility] (CARAFATE - mouth. [facility] OR) 20:19: of 40 Medicin e MAGNESIUM 2020-0 Yes Take by [facility] CITRATE OR 07-02 mouth as Colle ge 20:19: needed. of 40 Medicin e oxybutynin 2020-0 Yes 5mg Take 5 mg [facility] (DITROPAN) 8- by mouth [facility]le ge 5 MG tablet 20:19: two times o f 40 daily. Medicin e naproxen 2020-0 Yes 500mg Take 500 [facility] (NAPROSYN) 8-19 mg by [place] 500 MG 20:19: mouth 2 of tablet 40 times Medicin daily e (with meals). Prochlorper 2020-0 2020- No Take by [facility] azine 07-02 mouth. [facility] 20:19: 00:00 of (COMPAZINE 40 :00 Medicin PO) e Scopolamine 2020-0 2020- No Place onto [facility] 1 MG/3DAYS 07-02 the skin. [facility] PT72 20:19: 00:00 of 40 :00 Medicin e raNITIdine 2020-0 2020- No Take by [facility] HCl (ZANTAC 07-02 mouth. [facility]le ge OR) 20:19: 00:00 of 14 :00 Medicin e dicyclomine 2020-0 Yes 10mg Take 10 mg [facility] (BENTYL) 10 - by mouth [facility] MG capsule 20:17: every 6 of 42 hours. Medicin e albuterol 2020-0 Yes 1{ampul Take 1 [facility] (PROVENTIL) - e} Ampule by [facility] (2.5 mg/3 20:17: nebulizati of mL) 0.083% 42 on as Medicin nebulizer needed. e solution dicyclomine 2020-0 Yes 10mg Take 10 mg [facility] (BENTYL) 10 8-19 by mouth [facility] MG capsule 20:17: every 6 of 42 hours. Medicin e albuterol 2020-0 Yes 1{ampul Take 1 [facility] (PROVENTIL) 8-19 e} Ampule by [facility] (2.5 mg/3 20:17: nebulizati of mL) 0.083% 42 on as Medicin nebulizer needed. e solution VENLAFAXINE 2020-0 Yes Take by [facility] HCL OR 8-19 mouth. [place] 15:19: of 52 Medicin e sumatriptan 2020-0 Yes 50mg Take 50 mg [facility] (IMITREX) 8-19 by mouth Colleg e 50 MG 15:19: once as of tablet 52 needed for Medicin Migraine. e Promethazin 2020-0 Yes Take by [facility] e HCl 8-19 mouth. [place] (PHENERGAN 15:19: of OR) 40 Medicin e Sucralfate 2020-0 Yes Take by [facility] (CARAFATE 8-19 mouth. [place] OR) 15:19: of 40 Medicin e MAGNESIUM 2020-0 Yes Take by [facility] CITRATE OR 8-19 mouth as Colle ge 15:19: needed. of 40 Medicin e oxybutynin 2020-0 Yes 5mg Take 5 mg [facility] (DITROPAN) 8-19 by mouth Colle ge 5 MG tablet 15:19: two times o f 40 daily. Medicin e naproxen 2020-0 Yes 500mg Take 500 [facility] (NAPROSYN) 8-19 mg by [place] 500 MG 15:19: mouth 2 of tablet 40 times Medicin daily e (with meals). dicyclomine 2020-0 Yes 10mg Take 10 mg [facility] (BENTYL) 10 8-19 by mouth [facility] MG capsule 15:17: every 6 of 42 hours. Medicin e albuterol 2020-0 Yes 1{ampul Take 1 [facility] (PROVENTIL) 8-19 e} Ampule by [facility] (2.5 mg/3 15:17: nebulizati of mL) 0.083% 42 on as Medicin nebulizer needed. e solution pregabalin 2020-0 Yes [id number] 100mg Take 1 Cap [facility] (LYRICA) 8-19 by mouth 3 [facility]le [facility] 100 MG 00:00: times of capsule 00 daily. Medicin e tramadol 2020-0 Yes [id number] 1{tbl} Take 1 Tab [facility] (ULTRAM) 50 8-19 by mouth [facility] MG tablet 00:00: every 8 of 00 hours as Medicin needed for e Pain. pregabalin 2020-0 Yes [id number] 100mg Take 1 Cap [facility] (LYRICA) 8-19 by mouth 3 [facility] 100 MG 00:00: times of capsule 00 daily. Medicin e tramadol 2019-0 2020- No [id number] 1{tbl} Take 1 Tab [facility] (ULTRAM) 50 8-19 11-18 by mouth [facility] MG tablet 00:00: 00:00 every 8 of 00 :00 hours as Medicin needed for e Pain. baclofen 2019-0 Yes [id number] TAKE 1 [facility] (LIORESAL) 7-29 TABLET BY [facility] 10 MG 00:00: MOUTH of tablet 00 THREE Medicin TIMES A e DAY Adhesive 2019-0 Yes [id number] Use as [facility] Tape 7-20 directed ity of (HYPAFIX) 2 00:00: [place] X 72 " Tape 00 Medical Branch Adhesive 0 Yes [id number] Use as [facility] vers Tape 7-20 directed ity of (HYPAFIX) 2 00:00: [place] X 72 " Tape 00 Medical Branch Adhesive 2019-0 Yes [id number] Use as [facility] vers Tape 7-20 directed ity of (HYPAFIX) 2 00:00: [place] X 72 " Tape 00 Medical Branch Adhesive 2019-0 Yes [id number] Use as [facility] vers Tape 7-20 directed ity of (HYPAFIX) 2 00:00: [place] X 72 " Tape 00 Medical Branch Adhesive 2019-0 Yes [id number] Use as [facility] vers Tape 7-20 directed ity of (HYPAFIX) 2 00:00: [place] X 72 " Tape 00 Medical Branch Adhesive 2019-0 Yes [id number] Use as [facility] vers Tape 7-20 directed ity of (HYPAFIX) 2 00:00: [place] X 72 " Tape 00 Medical Branch Adhesive 2019-0 Yes [id number] Use as [facility] vers Tape 7-20 directed ity of (HYPAFIX) 2 00:00: [place] X 72 " Tape 00 Medical Branch Adhesive 2020-0 Yes [id number] Use as [facility] vers Tape 7-20 directed ity of (HYPAFIX) 2 00:00: [place] X 72 " Tape 00 Medical Branch Adhesive 2020-0 Yes [id number] Use as [facility] vers Tape 7-20 directed ity of (HYPAFIX) 2 00:00: [place] X 72 " Tape 00 Medical Branch Adhesive 2020-0 Yes [id number] Use as [facility] vers Tape 7-20 directed ity of (HYPAFIX) 2 00:00: [place] X 72 " Tape 00 Medical Branch Adhesive 2020-0 Yes [id number] Use as [facility] vers Tape 7-20 directed ity of (HYPAFIX) 2 00:00: [place] X 72 " Tape 00 Medical Branch Adhesive 2020-0 Yes [id number] Use as [facility] vers Tape 7-20 directed ity of (HYPAFIX) 2 00:00: [place] X 72 " Tape 00 Medical Branch Adhesive 2020-0 Yes [id number] Use as [facility] vers Tape 7-20 directed ity of (HYPAFIX) 2 00:00: [place] X 72 " Tape 00 Medical Branch Adhesive 2020-0 Yes [id number] Use as [facility] vers Tape 7-20 directed ity of (HYPAFIX) 2 00:00: [place] X 72 " Tape 00 Medical Branch Adhesive 2020-0 Yes [id number] Use as [facility] vers Tape 7-20 directed ity of (HYPAFIX) 2 00:00: [place] X 72 " Tape 00 Medical Branch Adhesive 2020-0 Yes [id number] Use as [facility] vers Tape 7-20 directed ity of (HYPAFIX) 2 00:00: [place] X 72 " Tape 00 Medical Branch Adhesive 2020-0 Yes [id number] Use as [facility] vers Tape 7-20 directed ity of (HYPAFIX) 2 00:00: [place] X 72 " Tape 00 Medical Branch Adhesive 2020-0 Yes [id number] Use as [facility] vers Tape 7-20 directed ity of (HYPAFIX) 2 00:00: [place] X 72 " Tape 00 Medical Branch Adhesive 2020-0 Yes [id number] Use as [facility] vers Tape 7-20 directed ity of (HYPAFIX) 2 00:00: [place] X 72 " Tape 00 Medical Branch Adhesive 2020-0 Yes [id number] Use as [facility] vers Tape 7-20 directed ity of (HYPAFIX) 2 00:00: [place] X 72 " Tape 00 Medical Branch Adhesive 2020-0 Yes [id number] Use as [facility] vers Tape 7-20 directed ity of (HYPAFIX) 2 00:00: [place] X 72 " Tape 00 Medical Branch Adhesive 2020-0 Yes [id number] Use as [facility] vers Tape 7-20 directed ity of (HYPAFIX) 2 00:00: [place] X 72 " Tape 00 Medical Branch Adhesive 2020-0 Yes [id number] Use as [facility] vers Tape 7-20 directed ity of (HYPAFIX) 2 00:00: [place] X 72 " Tape 00 Medical Branch Adhesive 2020-0 Yes [id number] Use as [facility] vers Tape 7-20 directed ity of (HYPAFIX) 2 00:00: [place] X 72 " Tape 00 Medical Branch Adhesive 2020-0 Yes [id number] Use as [facility] vers Tape 7-20 directed ity of (HYPAFIX) 2 00:00: [place] X 72 " Tape 00 Medical Branch Adhesive 2020-0 Yes [id number] Use as [facility] vers Tape 7-20 directed ity of (HYPAFIX) 2 00:00: [place] X 72 " Tape 00 Medical Branch Adhesive 2020-0 Yes [id number] Use as [facility] vers Tape 7-20 directed ity of (HYPAFIX) 2 00:00: [place] X 72 " Tape 00 Medical Branch Adhesive 2020-0 Yes [id number] Use as [facility] vers Tape 7-20 directed ity of (HYPAFIX) 2 00:00: [place] X 72 " Tape 00 Medical Branch Adhesive 2020-0 Yes [id number] Use as [facility] vers Tape 7-20 directed ity of (HYPAFIX) 2 00:00: [place] X 72 " Tape 00 Medical Branch Adhesive 2020-0 Yes [id number] Use as [facility] vers Tape 7-20 directed ity of (HYPAFIX) 2 00:00: [place] X 72 " Tape 00 Medical Branch Adhesive 2020-0 Yes [id number] Use as [facility] vers Tape 7-20 directed ity of (HYPAFIX) 2 00:00: [place] X 72 " Tape 00 Medical Branch Adhesive 2020-0 Yes [id number] Use as [facility] vers Tape 7-20 directed ity of (HYPAFIX) 2 00:00: [place] X 72 " Tape 00 Medical Branch Adhesive 2020-0 Yes [id number] Use as [facility] vers Tape 7-20 directed ity of (HYPAFIX) 2 00:00: [place] X 72 " Tape 00 Medical Branch Adhesive 2020-0 Yes [id number] Use as [facility] vers Tape 7-20 directed ity of (HYPAFIX) 2 00:00: [place] X 72 " Tape 00 Medical Branch Adhesive 2020-0 Yes [id number] Use as [facility] vers Tape 7-20 directed ity of (HYPAFIX) 2 00:00: [place] X 72 " Tape 00 [facility] Branch Adhesive 2020-0 Yes [id number] Use as [facility] vers Tape 7-20 directed ity of (HYPAFIX) 2 00:00: [place] X 72 " Tape 00 Medical Branch Adhesive 2020-0 Yes [id number] Use as [facility] vers Tape 7-20 directed ity of (HYPAFIX) 2 00:00: [place] X 72 " Tape 00 Medical Branch Adhesive 2020-0 Yes [id number] Use as [facility] vers Tape 7-20 directed ity of (HYPAFIX) 2 00:00: [place] X 72 " Tape 00 Medical Branch Adhesive 2020-0 Yes [id number] Use as [facility] vers Tape 7-20 directed ity of (HYPAFIX) 2 00:00: [place] X 72 " Tape 00 Medical Branch Adhesive 2020-0 Yes [id number] Use as [facility] vers Tape 7-20 directed ity of (HYPAFIX) 2 00:00: [place] X 72 " Tape 00 Medical Branch Adhesive 2020-0 Yes [id number] Use as [facility] vers Tape 7-20 directed ity of (HYPAFIX) 2 00:00: [place] X 72 " Tape 00 Medical Branch Adhesive 2020-0 Yes [id number] Use as [facility] vers Tape 7-20 directed ity of (HYPAFIX) 2 00:00: [place] X 72 " Tape 00 [facility] Branch Adhesive 2020-0 Yes [id number] Use as [facility] vers Tape 7-20 directed ity of (HYPAFIX) 2 00:00: [place] X 72 " Tape 00 [facility] Branch Adhesive 2020-0 Yes [id number] Use as [facility] vers Tape 7-20 directed ity of (HYPAFIX) 2 00:00: [place] X 72 " Tape 00 [facility] Branch Adhesive 2020-0 Yes [id number] Use as [facility] vers Tape 7-20 directed ity of (HYPAFIX) 2 00:00: [place] X 72 " Tape 00 Medical Branch Adhesive 2020-0 Yes [id number] Use as [facility] vers Tape 7-20 directed ity of (HYPAFIX) 2 00:00: [place] X 72 " Tape 00 [facility] Branch Adhesive 2020-0 Yes [id number] Use as [facility] vers Tape 7-20 directed ity of (HYPAFIX) 2 00:00: [place] X 72 " Tape 00 [facility] Branch Adhesive 2019-0 Yes [id number] Use as [facility] vers Tape 7-20 directed ity of (HYPAFIX) 2 00:00: [place] X 72 " Tape 00 [facility] Branch Adhesive 2020-0 Yes [id number] Use as [facility] vers Tape 7-20 directed ity of (HYPAFIX) 2 00:00: [place] X 72 " Tape 00 [facility] Branch Adhesive 2019-0 Yes [id number] Use as Uni vers Tape 7-20 directed ity of (HYPAFIX) 2 00:00: [place] X 72 " Tape 00 [facility] Branch Adhesive 2019-0 2021- No [id number] Use as [facility] Tape 7-20 12-19 directed ity of (HYPAFIX) 2 00:00: 00:00 [place] X 72 " Tape 00 :00 Medical Branch Adhesive 2019-0 2021- No [id number] Use as [facility] Tape 7-20 12-19 directed ity of (HYPAFIX) 2 00:00: 00:00 [place] X 72 " Tape 00 :00 Medical Branch Adhesive 2019-0 2021- No [id number] Use as [facility] Tape 7-20 12-19 directed ity of (HYPAFIX) 2 00:00: 00:00 [place] X 72 " Tape 00 :00 Medical Branch trazodone 2020-0 Yes TAKE 1 [facility] (DESYREL) 6-04 TABLET BY [facility]le [facility] 50 MG 00:00: MOUTH of tablet 00 EVERYDAY Medicin AT BEDTIME e trazodone 2020-0 Yes TAKE 1 [facility] (DESYREL) 6-04 TABLET BY [facility] 50 MG 00:00: MOUTH of tablet 00 EVERYDAY Medicin AT BEDTIME e trazodone 2020-0 Yes TAKE 1 [facility] (DESYREL) 6-04 TABLET BY [facility] 50 MG 00:00: MOUTH of tablet 00 EVERYDAY Medicin AT BEDTIME e trazodone 2020-0 Yes TAKE 1 [facility] (DESYREL) 6-04 TABLET BY [facility] 50 MG 00:00: MOUTH of tablet 00 EVERYDAY Medicin AT BEDTIME e trazodone 2020-0 Yes TAKE 1 [facility] (DESYREL) 6-04 TABLET BY [facility] 50 MG 00:00: MOUTH of tablet 00 EVERYDAY Medicin AT BEDTIME e trazodone 2020-0 Yes TAKE 1 [facility] (DESYREL) 6-04 TABLET BY [facility] 50 MG 00:00: MOUTH of tablet 00 EVERYDAY Medicin AT BEDTIME e trazodone 2020-0 Yes TAKE 1 [facility] (DESYREL) 6-04 TABLET BY Colle ge 50 MG 00:00: MOUTH of tablet 00 EVERYDAY Medicin AT BEDTIME e trazodone 2020-0 Yes TAKE 1 [facility] (DESYREL) 6-04 TABLET BY [facility] 50 MG 00:00: MOUTH of tablet 00 EVERYDAY Medicin AT BEDTIME e trazodone 2020-0 Yes TAKE 1 [facility] (DESYREL) 6-04 TABLET BY [facility]le [facility] 50 MG 00:00: MOUTH of tablet 00 EVERYDAY Medicin AT BEDTIME e tramadol 2020-0 2020- No [id number] TAKE 1 [facility] (ULTRAM) 50 6- 08-19 TABLET BY Co [facility]lege MG tablet 00:00: 00:00 MOUTH of 00 :00 EVERY 8 Medicin HOURS e NEEDED FOR PAIN naproxen 2020-0 Yes 500mg Take 500 [facility] (NAPROSYN) 5-21 mg by [place] 500 MG 18:25: mouth 2 of tablet 22 times Medicin daily e (with meals). Promethazin 2020-0 Yes Take by [place] [facility] e HCl 5-21 mouth. College (PHENERGAN 18:23: of OR) 48 Medicin e dicyclomine 2020-0 Yes 10mg Take 10 mg [facility] (BENTYL) 10 5-21 by mouth [facility] MG capsule 18:23: every 6 of 48 hours. Medicin e Prochlorper 2020-0 Yes Take by [place] [facility] azine 5-21 mouth. [facility] 18:23: of (COMPAZINE 48 Medicin PO) e Sucralfate 2020-0 Yes Take by [facility] (CARAFATE 5-21 mouth. College OR) 18:23: of 48 Medicin e ALBUTEROL 2020-0 Yes Take by [facility] SULFATE OR 5-21 mouth. College 18:23: of 48 Medicin e albuterol 2020-0 Yes 1{ampul Take 1 [facility] (PROVENTIL) 5-21 e} Ampule by [facility] (2.5 mg/3 18:23: nebulizati of mL) 0.083% 48 on once. Medic in nebulizer e solution Scopolamine 2020-[address] [facility] 1 MG/3DAYS 5-21 the skin. [facility] PT72 18:23: of 48 Medicin e MAGNESIUM 2020-0 Yes Take by [facility] CITRATE OR 5-21 mouth as Colle ge 18:23: needed. of 48 Medicin e oxybutynin 2020-0 Yes 5mg Take 5 mg [facility] (DITROPAN) 5-21 by mouth Colle ge 5 MG tablet 18:23: two times o f 48 daily. Medicin e VENLAFAXINE 2020-0 Yes Take by [facility] HCL OR 5-21 mouth. College 18:23: of 48 Medicin e sumatriptan 2020-0 Yes 50mg Take 50 mg [facility] (IMITREX) 5-21 by mouth [facility] e 50 MG 18:23: once as of tablet 48 needed for Medicin Migraine. e raNITIdine 2020-0 Yes Take by [facility] HCl (ZANTAC 5-21 mouth. Colleg e OR) 18:23: of 48 Medicin e ALBUTEROL 2020-0 Yes Take by [facility] SULFATE OR 5-21 mouth. College 18:23: of 48 Medicin e ALBUTEROL 2020-0 Yes Take by [facility] SULFATE OR 5-21 mouth. College 18:23: of 48 Medicin e ALBUTEROL 2020-0 Yes Take by [facility] SULFATE OR 5-21 mouth. College 13:23: of 48 Medicin e naproxen 2020-0 Yes 500mg Take 500 [facility] (Naprosyn) 5-14 mg by Health 500 MG 00:00: mouth. tablet 00 naproxen 2020-0 Yes 500mg Take 500 [facility] (Naprosyn) 5-14 mg by Health 500 MG 00:00: mouth. tablet 00 naproxen 2020-0 Yes 500mg Take 500 [facility] (Naprosyn) 5-14 mg by Health 500 MG 00:00: mouth. tablet 00 Respiratory 2020-0 Yes Use as [facility] 2-21 directed [facility] Supplies 00:00: ([employer] 00 S Combo Pack) device Respiratory 2020-0 Yes Use as [facility] 2-21 directed [facility] Supplies 00:00: ([employer] 00 S Combo Pack) device Respiratory 2020-0 Yes Use as [facility] 2-21 directed Health Supplies 00:00: ([employer] 00 S Combo Pack) device Nebulizer & 2020-0 Yes [id number] Use as [facility] Compressor 2-21 directed ity o f For Neb 00:00: [place] [facility] 00 [facility] Nebulizer & 2020-0 Yes [id number] Use as [facility] Compressor 2-21 directed ity o f For Neb 00:00: [place] [facility] 00 [facility] Nebulizer & 2020-0 Yes [id number] Use as [facility] Compressor 2-21 directed ity o f For Neb 00:00: [place] [facility] 00 [facility] Nebulizer & 2020-0 Yes [id number] Use as [facility] Compressor 2-21 directed ity o f For Neb 00:00: [place] [facility] 00 [facility] Nebulizer & 2020-0 Yes [id number] Use as [facility] Compressor 2-21 directed ity o f For Neb 00:00: [place] [facility] 00 [facility] Nebulizer & 2020-0 Yes [id number] Use as [facility] Compressor 2-21 directed ity o f For Neb 00:00: [place] [facility] 00 [facility] Nebulizer & 2020-0 Yes [id number] Use as [facility] Compressor 2-21 directed ity o f For Neb 00:00: [place] [facility] 00 [facility] Nebulizer & 2020-0 Yes [id number] Use as [facility] Compressor 2-21 directed ity o f For Neb 00:00: [place] [facility] 00 [facility] Nebulizer & 2020-0 Yes [id number] Use as [facility] Compressor 2-21 directed ity o f For Neb 00:00: [place] [facility] 00 [facility] Nebulizer & 2020-0 Yes [id number] Use as [facility] Compressor 2-21 directed ity o f For Neb 00:00: [place] [facility] 00 [facility] Nebulizer & 2020-0 Yes [id number] Use as [facility] Compressor 2-21 directed ity o f For Neb 00:00: [place] [facility] 00 [facility] Nebulizer & 2020-0 Yes [id number] Use as [facility] Compressor 2-21 directed ity o f For Neb 00:00: [place] [facility] 00 [facility] Nebulizer & 2020-0 Yes [id number] Use as [facility] Compressor 2-21 directed ity o f For Neb 00:00: [place] [facility] 00 [facility] Nebulizer & 2020-0 Yes [id number] Use as [facility] Compressor 2-21 directed ity o f For Neb 00:00: [place] [facility] 00 [facility] Nebulizer & 2020-0 Yes [id number] Use as [facility] Compressor 2-21 directed ity o f For Neb 00:00: [place] [facility] 00 [facility] Nebulizer & 2020-0 Yes [id number] Use as [facility] Compressor 2-21 directed ity o f For Neb 00:00: [facility] Nebulizer & 2020-0 Yes [id number] Use as [facility] Compressor 2-21 directed ity o f For Neb 00:00: [place] [facility] 00 [facility] Nebulizer & 2020-0 Yes [id number] Use as [facility] Compressor 2-21 directed ity o f For Neb 00:00: 00 [facility] Branch Nebulizer & 2020-0 Yes [id number] Use as [facility] Compressor 2-21 directed ity o f For Neb 00:00: Medical Branch Nebulizer & 2020-0 Yes [id number] Use as [facility] Compressor 2-21 directed ity o f For Neb 00:00: [facility] Nebulizer & 2020-0 Yes [id number] Use as [facility] Compressor 2-21 directed ity o f For Neb 00:00: [facility] Branch Nebulizer & 2020-0 Yes [id number] Use as [facility] Compressor 2-21 directed ity o f For Neb 00:00: [facility] Nebulizer & 2020-0 Yes [id number] Use as [facility] Compressor 2-21 directed ity o f For Neb 00:00: [facility] Branch Nebulizer & 2020-0 Yes [id number] Use as [facility] Compressor 2-21 directed ity o f For Neb 00:00: 00 [facility] Branch Nebulizer & 2020-0 Yes [id number] Use as [facility] Compressor 2-21 directed ity o f For Neb 00:00: [place] [facility] 00 [facility] Nebulizer & 2020-0 Yes [id number] Use as [facility] Compressor 2-21 directed ity o f For Neb 00:00: [place] [facility] 00 [facility] Nebulizer & 2020-0 Yes [id number] Use as [facility] Compressor 2-21 directed ity o f For Neb 00:00: [place] [facility] 00 [facility] Nebulizer & 2020-0 Yes [id number] Use as [facility] Compressor 2-21 directed ity o f For Neb 00:00: [place] [facility] 00 [facility] Nebulizer & 2020-0 Yes [id number] Use as [facility] Compressor 2-21 directed ity o f For Neb 00:00: [place] [facility] 00 [facility] Nebulizer & 2020-0 Yes [id number] Use as [facility] Compressor 2-21 directed ity o f For Neb 00:00: [place] [facility] 00 [facility] Branch Nebulizer & 2020-0 Yes [id number] Use as [facility] Compressor 2-21 directed ity o f For Neb 00:00: 00 Medical Branch Nebulizer & 2020-0 Yes [id number] Use as [facility] Compressor 2-21 directed ity o f For Neb 00:00: [place] [facility] Nebulizer & 2020-0 Yes [id number] Use as [facility] Compressor 2-21 directed ity o f For Neb 00:00: 00 Medical Branch Nebulizer & 2020-0 Yes [id number] Use as [facility] Compressor 2-21 directed ity o f For Neb 00:00: [place] [facility] 00 Medical Branch Nebulizer & 2020-0 Yes [id number] Use as [facility] Compressor 2-21 directed ity o f For Neb 00:00: Medical Branch Nebulizer & 2020-0 Yes [id number] Use as [facility] Compressor 2-21 directed ity o f For Neb 00:00: 00 Medical Branch Nebulizer & 2020-0 Yes [id number] Use as [facility] Compressor 2-21 directed ity o f For Neb 00:00: [place] [facility] 00 [facility] Branch Nebulizer & 2020-0 Yes [id number] Use as [facility] Compressor 2-21 directed ity o f For Neb 00:00: [place] [facility] 00 [facility] Branch Nebulizer & 2020-0 Yes [id number] Use as [facility] Compressor 2-21 directed ity o f For Neb 00:00: [place] [facility] 00 [facility] Branch Nebulizer & 2020-0 Yes [id number] Use as [facility] Compressor 2-21 directed ity o f For Neb 00:00: [place] [facility] 00 [facility] Branch Nebulizer & 2020-0 Yes [id number] Use as [facility] Compressor 2-21 directed ity o f For Neb 00:00: [place] [facility] 00 [facility] Branch Nebulizer & 2020-0 Yes [id number] Use as [facility] Compressor 2-21 directed ity o f For Neb 00:00: [place] [facility] 00 [facility] Branch Nebulizer & 2020-0 Yes [id number] Use as [facility] Compressor 2-21 directed ity o f For Neb 00:00: [place] [facility] 00 [facility] Nebulizer & 2020-0 Yes [id number] Use as [facility] Compressor 2-21 directed ity o f For Neb 00:00: [place] [facility] 00 [facility] Nebulizer & 2020-0 Yes [id number] Use as [facility] Compressor 2-21 directed ity o f For Neb 00:00: 00 Medical Branch Nebulizer & 2020-0 Yes [id number] Use as [facility] Compressor 2-21 directed ity o f For Neb 00:00: [place] [facility] 00 [facility] Nebulizer & 2020-0 Yes [id number] Use as [facility] Compressor 2-21 directed ity o f For Neb 00:00: [place] [facility] 00 [facility] Nebulizer & 2020-0 Yes [id number] Use as [facility] Compressor 2-21 directed ity o f For Neb 00:00: [place] [facility] Nebulizer & 2020-0 Yes [id number] Use as [facility] Compressor 2-21 directed ity o f For Neb 00:00: [place] [facility] Nebulizer & 2020-0 Yes [id number] Use as [facility] Compressor 2-21 directed ity o f For Neb 00:00: [place] [facility] 00 [facility] Nebulizer & 2020-0 Yes [id number] Use as [facility] Compressor 2-21 directed ity o f For Neb 00:00: Medical Branch Nebulizer & 2020-0 Yes [id number] Use as [facility] Compressor 2-21 directed ity o f For Neb 00:00: [place] [facility] 00 [facility] Nebulizer & 2020-0 Yes [id number] Use as [facility] Compressor 2-21 directed ity o f For Neb 00:00: [place] [facility] 00 [facility] Nebulizer & 2020-0 Yes [id number] Use as [facility] Compressor 2-21 directed ity o f For Neb 00:00: [place] 00 [facility] Nebulizer & 2020-0 Yes [id number] Use as [facility] Compressor 2-21 directed ity o f For Neb 00:00: [place] [facility] 00 [facility] Nebulizer & 2020-0 Yes [id number] Use as [facility] Compressor 2-21 directed ity o f For Neb 00:00: [place] [facility] 00 [facility] Nebulizer & 2020-0 Yes [id number] Use as [facility] Compressor 2-21 directed ity o f For Neb 00:00: [place] 00 [facility] Nebulizer & 2020-0 Yes [id number] Use as [facility] Compressor 2-21 directed ity o f For Neb 00:00: [place] [facility] 00 [facility] Nebulizer & 2020-0 Yes [id number] Use as [facility] Compressor 2-21 directed ity o f For Neb 00:00: 00 Medical Branch Nebulizer & 2020-0 Yes [id number] Use as [facility] Compressor 2-21 directed ity o f For Neb 00:00: Medical Branch Nebulizer & 2020-0 Yes [id number] Use as [facility] Compressor 2-21 directed ity o f For Neb 00:00: 00 Medical Branch Nebulizer & 2020-0 Yes [id number] Use as [facility] Compressor 2-21 directed ity o f For Neb 00:00: Medical Branch Nebulizer & 2020-0 Yes [id number] Use as [facility] Compressor 2-21 directed ity o f For Neb 00:00: Medical Branch Nebulizer & 2020-0 Yes [id number] Use as [facility] Compressor 2-21 directed ity o f For Neb 00:00: Medical Branch Nebulizer & 2020-0 Yes [id number] Use as [facility] Compressor 2-21 directed ity o f For Neb 00:00: Medical Branch Nebulizer & 2020-0 Yes [id number] Use as [facility] Compressor 2-21 directed ity o f For Neb 00:00: Medical Branch Nebulizer & 2020-0 Yes [id number] Use as [facility] Compressor 2-21 directed ity o f For Neb 00:00: [place] [facility] Nebulizer & 2020-0 Yes [id number] Use as [facility] Compressor 2-21 directed ity o f For Neb 00:00: [place] [facility] 00 [facility] Nebulizer & 2020-0 Yes [id number] Use as [facility] Compressor 2-21 directed ity o f For Neb 00:00: [place] [facility] 00 [facility] Nebulizer & 2020-0 Yes [id number] Use as [facility] Compressor 2-21 directed ity o f For Neb 00:00: [place] [facility] 00 [facility] Nebulizer & 2020-0 Yes [id number] Use as [facility] Compressor 2-21 directed ity o f For Neb 00:00: [place] 00 [facility] Nebulizer & 2020-0 Yes [id number] Use as [facility] Compressor 2-21 directed ity o f For Neb 00:00: [place] 00 [facility] Nebulizer & 2020-0 Yes [id number] Use as [facility] Compressor 2-21 directed ity o f For Neb 00:00: 00 Medical Branch Nebulizer & 2020-0 Yes [id number] Use as [facility] Compressor 2-21 directed ity o f For Neb 00:00: 00 Medical Branch Nebulizer & 2020-0 Yes [id number] Use as [facility] Compressor 2-21 directed ity o f For Neb 00:00: Medical Branch Nebulizer & 2020-0 Yes [id number] Use as [facility] Compressor 2-21 directed ity o f For Neb 00:00: Medical Branch Nebulizer & 2020-0 Yes [id number] Use as [facility] Compressor 2-21 directed ity o f For Neb 00:00: Medical Branch Nebulizer & 2020-0 Yes [id number] Use as [facility] Compressor 2-21 directed ity o f For Neb 00:00: Medical Branch Nebulizer & 2020-0 Yes [id number] Use as [facility] Compressor 2-21 directed ity o f For Neb 00:00: Medical Branch Nebulizer & 2020-0 Yes [id number] Use as [facility] Compressor 2-21 directed ity o f For Neb 00:00: Medical Branch Nebulizer & 2020-0 Yes [id number] Use as [facility] Compressor 2-21 directed ity o f For Neb 00:00: Medical Branch Nebulizer & 2020-0 Yes [id number] Use as [facility] Compressor 2-21 directed ity o f For Neb 00:00: [place] [facility] Nebulizer & 2020-0 Yes [id number] Use as [facility] Compressor 2-21 directed ity o f For Neb 00:00: [place] [facility] 00 [facility] Nebulizer & 2020-0 Yes [id number] Use as [facility] Compressor 2-21 directed ity o f For Neb 00:00: [place] [facility] Nebulizer & 2020-0 Yes [id number] Use as [facility] Compressor 2-21 directed ity o f For Neb 00:00: [place] [facility] 00 [facility] Nebulizer & 2020-0 Yes [id number] Use as [facility] Compressor 2-21 directed ity o f For Neb 00:00: [place] [facility] 00 [facility] Nebulizer & 2020-0 Yes [id number] Use as [facility] Compressor 2-21 directed ity o f For Neb 00:00: [place] [facility] 00 [facility] Nebulizer & 2020-0 Yes [id number] Use as [facility] Compressor 2-21 directed ity o f For Neb 00:00: [place] [facility] 00 [facility] Nebulizer & 2020-0 Yes [id number] Use as [facility] Compressor 2-21 directed ity o f For Neb 00:00: [place] [facility] 00 [facility] Nebulizer & 2020-0 Yes [id number] Use as [facility] Compressor 2-21 directed ity o f For Neb 00:00: [place] 00 [facility] Nebulizer & 2020-0 Yes [id number] Use as [facility] Compressor 2-21 directed ity o f For Neb 00:00: [place] [facility] Nebulizer & 2020-0 Yes [id number] Use as [facility] Compressor 2-21 directed ity o f For Neb 00:00: [place] [facility] Nebulizer & 2020-0 Yes [id number] Use as [facility] Compressor 2-21 directed ity o f For Neb 00:00: [place] [facility] Nebulizer & 2020-0 Yes [id number] Use as [facility] Compressor 2-21 directed ity o f For Neb 00:00: [place] [facility] Nebulizer & 2020-0 Yes [id number] Use as [facility] Compressor 2-21 directed ity o f For Neb 00:00: [place] [facility] 00 [facility] Nebulizer & 2020-0 Yes [id number] Use as [facility] Compressor 2-21 directed ity o f For Neb 00:00: [place] 00 [facility] Nebulizer & 2020-0 Yes [id number] Use as [facility] Compressor 2-21 directed ity o f For Neb 00:00: [place] 00 [facility] Nebulizer & 2020-0 Yes [id number] Use as [facility] Compressor 2-21 directed ity o f For Neb 00:00: [place] [facility] 00 [facility] Nebulizer & 2020-0 Yes [id number] Use as [facility] Compressor 2-21 directed ity o f For Neb 00:00: [place] [facility] 00 [facility] Nebulizer & 2020-0 Yes [id number] Use as [facility] Compressor 2-21 directed ity o f For Neb 00:00: Medical Branch Nebulizer & 2020-0 Yes [id number] Use as [facility] Compressor 2-21 directed ity o f For Neb 00:00: Medical Branch Nebulizer & 2020-0 Yes [id number] Use as [facility] Compressor 2-21 directed ity o f For Neb 00:00: Medical Branch Nebulizer & 2020-0 Yes [id number] Use as [facility] Compressor 2-21 directed ity o f For Neb 00:00: [place] [facility] Nebulizer & 2020-0 Yes [id number] Use as [facility] Compressor 2-21 directed ity o f For Neb 00:00: Medical Branch Nebulizer & 2020-0 Yes [id number] Use as [facility] Compressor 2-21 directed ity o f For Neb 00:00: [place] [facility] Nebulizer & 2020-0 Yes [id number] Use as [facility] Compressor 2-21 directed ity o f For Neb 00:00: [place] [facility] Promethazin 2020-0 Yes Take by [place] [facility] e HCl 2-19 mouth. [place] (PHENERGAN 19:24: of OR) 25 Medicin e dicyclomine 2020-0 Yes 10mg Take 10 mg [facility] (BENTYL) 10 2-19 by mouth [facility] MG capsule 19:24: every 6 of 25 hours. Medicin e Prochlorper 2020-0 Yes Take by [place] [facility] azine 2-19 mouth. [place] Maleate 19:24: of (COMPAZINE 25 Medicin PO) e Sucralfate 2020-0 Yes Take by [facility] (CARAFATE 2-19 mouth. [place] OR) 19:24: of 25 Medicin e ALBUTEROL 2020-0 Yes Take by [facility] SULFATE OR 2-19 mouth. [place] 19:24: of 25 Medicin e albuterol 2020-0 Yes 1{ampul Take 1 [place] [facility] (PROVENTIL) 2-19 e} Ampule by [facility] (2.5 mg/3 19:24: nebulizati of mL) 0.083% 25 on once. Medic in nebulizer e solution Scopolamine 2020-[address] [facility] 1 MG/3DAYS 2-19 the skin. [facility] PT72 19:24: of 25 Medicin e MAGNESIUM 2020-0 Yes Take by [facility] [facility] CITRATE OR 2-19 mouth as [facility] 19:24: needed. of 25 Medicin e oxybutynin 2020-0 Yes 5mg Take 5 mg [facility] (DITROPAN) 2-19 by mouth [facility] 5 MG tablet 19:24: two times o f 25 daily. Medicin e VENLAFAXINE 2020-0 Yes Take by [place] [facility] HCL OR 2-19 mouth. [facility] 19:24: of 25 Medicin e sumatriptan 2020-0 Yes 50mg Take 50 mg [place] [facility] (IMITREX) 2-19 by mouth [facility] 50 MG 19:24: once as of tablet 25 needed for Medicin Migraine. e raNITIdine 2020-0 Yes Take by [facility] HCl (ZANTAC 2-19 mouth. [facility] OR) 19:24: of 25 Medicin e pregabalin 2020-0 Yes 100mg Take 1 Cap [facility] (LYRICA) 2-19 by mouth 3 [facility] 100 MG 00:00: times of capsule 00 daily. Medicin e tramadol 2020-0 Yes [id number] 1{tbl} Take 1 Tab [place] [facility] (ULTRAM) 50 2-19 by mouth [facility] MG tablet 00:00: every 8 of 00 hours as Medicin needed for e Pain. amitriptyli 2020-0 Yes [id number] 50mg Take 1 Tab [facility] ne (ELAVIL) 2-19 by mouth [facility] 50 MG 00:00: nightly. of tablet 00 Medicin e baclofen 2020-0 Yes [id number] TAKE 1 [place] [facility] (LIORESAL) 2-19 TABLET BY [facility] 10 MG 00:00: MOUTH of tablet 00 THREE Medicin TIMES A e DAY pregabalin 2020-0 Yes 100mg Take 1 Cap [facility] (LYRICA) 2-19 by mouth 3 [facility] 100 MG 00:00: times of capsule 00 daily. Medicin e tramadol 2020-0 Yes [id number] 1{tbl} Take 1 Tab [place] (ULTRAM) 50 2-19 by mouth [place] [facility] MG tablet 00:00: every 8 of 00 hours as Medicin needed for e Pain. amitriptyli 2020-0 Yes [id number] 50mg Take 1 Tab [facility] ne (ELAVIL) 2-19 by mouth [place] [facility] 50 MG 00:00: nightly. of tablet 00 Medicin e baclofen 2020-0 Yes [id number] TAKE 1 [place] [facility] (LIORESAL) 2-19 TABLET BY [facility] 10 MG 00:00: MOUTH of tablet 00 THREE Medicin TIMES A e DAY amitriptyli 2020-0 Yes [id number] 50mg Take 1 Tab [facility] ne (ELAVIL) 2-19 by mouth [place] [facility] 50 MG 00:00: nightly. of tablet 00 Medicin e amitriptyli 2020-0 Yes [id number] 50mg Take 1 Tab [facility] ne (ELAVIL) 2-19 by mouth [place] [facility] 50 MG 00:00: nightly. of tablet 00 Medicin e Gauze Pads 0 Yes Use as [facility] 2-19 directed Heal th (RA STERILE 00:00: PADS 4"X4") 00 4"X4" pads Gauze Pads Yes Use as [facility] 2-19 directed Heal th (RA STERILE 00:00: PADS 4"X4") 00 4"X4" pads Gauze Pads 0 Yes Use as [facility] 2-19 directed Heal th (RA STERILE 00:00: PADS 4"X4") 00 4"X4" pads Gauze 2019-0 Yes [id number] Use as Unive rs Bandage - directed ity of (GAUZE PAD) 00:00: [place] 4 X 4 " 00 Medical Bndg Branch Miscellaneo 0 Yes [id number] [facility] [place] ity of Supply Misc 00:00: valve [place] 00 bags, 500 Medical ml Branch syringe, Yes [id number] 1{syrin 1 Syringe [facility] ENFit, 2-19 ge} 3 (three) ity of non-sterile 00:00: times [place] (MONOJECT 00 daily. Medical ENFIT Branch SYRINGE) 35 mL Syrg nut.tx.impa 2019-0 Yes [id number] 1000mL 1,000 mL [facility] ired renal 2-19 by PEG ity of fxn,soy 00:00: [place]ube route [place] (NOVASOURCE 00 daily. Medica l RENAL 2 Method of Branch STAN) 0.09 feeding is gram- 2 pump, 4 kcal/mL cans per Liqd day, patient to titrate rate of administra tion, 80mL/hr into the Jejunal port of [place] GJ tube Miscellaneo 2020-0 Yes [id number] 4 straight [facility] 2-19 12" G ity of Supply Misc 00:00: [place] [facility] extensions Branch Miscellaneo 2020-0 Yes [id number] 4 right [facility] 2-19 angle 12" ity of Supply Misc 00:00: [place] 00 [place] [facility] Gauze 2019-0 Yes [id number] Use as Unive rs Bandage 2-19 directed ity of (GAUZE PAD) 00:00: [place] 4 X 4 " 00 Medical Bndg Branch Miscellaneo 2019-0 Yes [id number] [facility] 01-02 [place] ity of Supply Misc 00:00: valve bags, 500 Medical ml Branch syringe, 0 Yes [id number] 1{syrin 1 Syringe [facility], 01-02 ge} 3 (three) ity of non-sterile 00:00: times [place] (MONOJECT 00 daily. Medical ENFIT Branch SYRINGE) 35 mL Syrg nut.tx.impa 0 Yes [id number] 1000mL 1,000 mL [facility] ired renal 2-19 by PEG ity of fxn,soy 00:00: [place] (NOVASOURCE 00 daily. Medica l RENAL 2 Method of Branch STAN) 0.09 feeding is gram- 2 pump, 4 kcal/mL cans per Liqd day, patient to titrate rate of administra tion, 80mL/hr into the Jejunal port of [place] GJ tube Miscellaneo 2020-0 Yes [id number] 4 straight [facility] 2-19 12" G ity of Supply Misc 00:00: [place] Medical extensions Branch Miscellaneo 2020-0 Yes [id number] 4 right [facility] 2-19 angle 12" ity of Supply Misc 00:00: [place] 00 extensions [facility] Gauze 2020-0 Yes [id number] Use as Unive rs Bandage 2-19 directed ity of (GAUZE PAD) 00:00: [place] 4 X 4 " 00 Medical Bndg Branch Miscellaneo 2020-0 Yes [id number] [facility] 2-19 [place] ity of Supply Misc 00:00: valve [place] 00 bags, 500 Medical ml Branch syringe, 2020-0 Yes [id number] 1{syrin 1 Syringe [facility] ENFit, 2-19 ge} 3 (three) ity of non-sterile 00:00: times [place] (MONOJECT 00 daily. Medical ENFIT Branch SYRINGE) 35 mL Syrg nut.tx.impa 2020-0 Yes [id number] 1000mL 1,000 mL [facility] ired renal 2-19 by PEG ity of fxn,soy 00:00: [place] (NOVASOURCE 00 daily. Medica l RENAL 2 Method of Branch STAN) 0.09 feeding is gram- 2 pump, 4 kcal/mL cans per Liqd day, patient to titrate rate of administra tion, 80mL/hr into the Jejunal port of [place] GJ tube Miscellaneo 2020-0 Yes [id number] 4 straight [facility] 01-02 12" G ity of Supply Misc 00:00: bolus [place] 00 Ze Medical extensions Branch Miscellaneo 2020-0 Yes [id number] 4 right [facility] 2-19 angle 12" ity of Supply Misc 00:00: [place] 00 extensions [facility] Gauze 2020-0 Yes [id number] Use as Unive rs Bandage 2 directed ity of (GAUZE PAD) 00:00: [place] 4 X 4 " 00 Medical Bndg Branch Miscellaneo 2020-0 Yes [id number] [facility] [address] ity of Supply Misc 00:00: valve [place] 00 bags, 500 Medical ml Branch syringe, 2020-0 Yes [id number] 1{syrin 1 Syringe [facility] ENFit, 2-19 ge} 3 (three) ity of non-sterile 00:00: times [place] (MONOJECT 00 daily. Medical ENFIT Branch SYRINGE) 35 mL Syrg nut.tx.impa 2020-0 Yes [id number] 1000mL 1,000 mL [facility] ired renal 2-19 by PEG ity of fxn,soy 00:00: [place] (NOVASOURCE 00 daily. Medica l RENAL 2 Method of Branch STAN) 0.09 feeding is gram- 2 pump, 4 kcal/mL cans per Liqd day, patient to titrate rate of administra tion, 80mL/hr into the Jejunal port of [place] GJ tube Miscellaneo 2020-0 Yes [id number] 4 straight [facility] 2-19 12" G ity of Supply Misc 00:00: [facility] Medical extensions Branch Miscellaneo 2020-0 Yes [id number] 4 right [facility] 2-19 angle 12" ity of Supply Misc 00:00: [place] 00 extensions [facility] Gauze 2019-0 Yes [id number] Use as Unive rs Bandage 219 directed ity of (GAUZE PAD) 00:00: [place] 4 X 4 " 00 Medical Bndg Branch Miscellaneo 2019-0 Yes [id number] [facility] 01-02 [place] ity of Supply Misc 00:00: valve bags, 500 Medical ml Branch syringe, 0 Yes [id number] 1{syrin 1 Syringe Univers [facility], 01-02 ge} 3 (three) ity of non-sterile 00:00: times [place] (MONOJECT 00 daily. Medical ENFIT Branch SYRINGE) 35 mL Syrg nut.tx.impa 0 Yes [id number] 1000mL 1,000 mL [facility] ired renal 2-19 by PEG ity of fxn,soy 00:00: [place]ube [place] (NOVASOURCE 00 daily. Medica l RENAL 2 Method of Branch STAN) 0.09 feeding is gram- 2 pump, 4 kcal/mL cans per Liqd day, patient to titrate rate of administra tion, 80mL/hr into the Jejunal port of [place] GJ tube Miscellaneo 2020-0 Yes [id number] 4 straight [facility] 219 12" G ity of Supply Misc 00:00: [place] Medical extensions Branch Miscellaneo 2020-0 Yes [id number] 4 right [facility] 2-19 angle 12" ity of Supply Misc 00:00: [place] 00 extensions [facility] Gauze 2020-0 Yes [id number] Use as Unive rs Bandage 2-19 directed ity of (GAUZE PAD) 00:00: [place] 4 X 4 " 00 Medical Bndg Branch Miscellaneo 2020-0 Yes [id number] [facility] 2-19 [place] ity of Supply Misc 00:00: valve [place] 00 bags, 500 Medical ml Branch syringe, 2020-0 Yes [id number] 1{syrin 1 Syringe [facility] ENFit, 2-19 ge} 3 (three) ity of non-sterile 00:00: times [place] (MONOJECT 00 daily. Medical ENFIT Branch SYRINGE) 35 mL Syrg nut.tx.impa 2020-0 Yes [id number] 1000mL 1,000 mL [facility] ired renal 2-19 by PEG ity of fxn,soy 00:00: [place]ube [place] (NOVASOURCE 00 daily. Medica l RENAL 2 Method of Branch STAN) 0.09 feeding is gram- 2 pump, 4 kcal/mL cans per Liqd day, patient to titrate rate of administra tion, 80mL/hr into the Jejunal port of [place] GJ tube Miscellaneo 2020-0 Yes [id number] 4 straight [facility] 2-19 12" G ity of Supply Misc 00:00: bolus [place] 00 Ze Medical extensions Branch Miscellaneo 2020-0 Yes [id number] 4 right [facility] 2-19 angle 12" ity of Supply Misc 00:00: [place] 00 extensions [facility] Gauze 2020-0 Yes [id number] Use as Unive rs Bandage 2-19 directed ity of (GAUZE PAD) 00:00: [place] 4 X 4 " 00 Medical Bndg Branch Miscellaneo 2020-0 Yes [id number] [facility] 2-19 [place] ity of Supply Misc 00:00: valve [place] 00 bags, 500 Medical ml Branch syringe, 2020-0 Yes [id number] 1{syrin 1 Syringe [facility] ENFit, 2-19 ge} 3 (three) ity of non-sterile 00:00: times [place] (MONOJECT 00 daily. Medical ENFIT Branch SYRINGE) 35 mL Syrg nut.tx.impa 2020-0 Yes [id number] 1000mL 1,000 mL [facility] ired renal 2-19 by PEG ity of fxn,soy 00:00: [place]ube route [place] (NOVASOURCE 00 daily. Medica l RENAL 2 Method of Branch STAN) 0.09 feeding is gram- 2 pump, 4 kcal/mL cans per Liqd day, patient to titrate rate of administra tion, 80mL/hr into the Jejunal port of [place] GJ tube Miscellaneo 2020-0 Yes [id number] 4 straight [facility] 2-19 12" G ity of Supply Misc 00:00: bolus [place] Medical extensions Branch Miscellaneo 2020-0 Yes [id number] 4 right [facility] 2 angle 12" ity of Supply Misc 00:00: [place] 00 extensions [facility] Gauze 2019-0 Yes [id number] Use as Unive rs Bandage 2-19 directed ity of (GAUZE PAD) 00:00: [place] 4 X 4 " 00 Medical Bndg Branch Miscellaneo 0 Yes [id number] [facility] 01-02 [place] ity of Supply Misc 00:00: valve bags, 500 Medical ml Branch syringe, 0 Yes [id number] 1{syrin 1 [facility]} 3 (three) ity of non-sterile 00:00: times [place] (MONOJECT 00 daily. Medical ENFIT Branch SYRINGE) 35 mL Syrg nut.tx.impa 2019-0 Yes [id number] 1000mL 1,000 mL [facility] ired renal 2-19 by PEG ity of fxn,soy 00:00: [place]ube route [place] (NOVASOURCE 00 daily. Medica l RENAL 2 Method of Branch STAN) 0.09 feeding is gram- 2 pump, 4 kcal/mL cans per Liqd day, patient to titrate rate of administra tion, 80mL/hr into the Jejunal port of [place] GJ tube Miscellaneo 2020-0 Yes [id number] 4 straight [facility] 219 12" G ity of Supply Misc 00:00: bolus [place] Medical extensions Branch Miscellaneo 2020-0 Yes [id number] 4 right [facility] 2 angle 12" ity of Supply Misc 00:00: [place] 00 extensions [facility] Branch Gauze 2020-0 Yes [id number] Use as Unive rs Bandage 2-19 directed ity of (GAUZE PAD) 00:00: [place] 4 X 4 " 00 Medical Bndg Branch Miscellaneo 2019-0 Yes [id number] [facility] 2-19 [place] ity of Supply Misc 00:00: valve [place] 00 bags, 500 Medical ml Branch syringe, 2020-0 Yes [id number] 1{syrin 1 Syringe [facility] ENFit, 2-19 ge} 3 (three) ity of non-sterile 00:00: times [place] (MONOJECT 00 daily. Medical ENFIT Branch SYRINGE) 35 mL Syrg nut.tx.impa 2020-0 Yes [id number] 1000mL 1,000 mL [facility] ired renal 2-19 by PEG ity of fxn,soy 00:00: [place]ube route [place] (NOVASOURCE 00 daily. Medica l RENAL 2 Method of Branch STAN) 0.09 feeding is gram- 2 pump, 4 kcal/mL cans per Liqd day, patient to titrate rate of administra tion, 80mL/hr into the Jejunal port of Jad[place] GJ tube Miscellaneo 2020-0 Yes [id number] 4 straight [facility] 01-02 12" G ity of Supply Misc 00:00: bolus [place] 00 Ze Medical extensions Branch Miscellaneo 2020-0 Yes [id number] 4 right [facility] 2-19 angle 12" ity of Supply Misc 00:00: [place] 00 extensions [facility] Branch Gauze 2020-0 Yes [id number] Use as Unive rs Bandage 2-19 directed ity of (GAUZE PAD) 00:00: [place] 4 X 4 " 00 Medical Bndg Branch Miscellaneo 2020-0 Yes [id number] [facility] 2-19 [place] ity of Supply Misc 00:00: valve [place] 00 bags, 500 Medical ml Branch syringe, 2020-0 Yes [id number] 1{syrin 1 Syringe [facility] ENFit, 2-19 ge} 3 (three) ity of non-sterile 00:00: times [place] (MONOJECT 00 daily. Medical ENFIT Branch SYRINGE) 35 mL Syrg nut.tx.impa 2020-0 Yes [id number] 1000mL 1,000 mL [facility] ired renal 2-19 by PEG ity of fxn,soy 00:00: Tube route [place] (NOVASOURCE 00 daily. Medica l RENAL 2 Method of Branch STAN) 0.09 feeding is gram- 2 pump, 4 kcal/mL cans per Liqd day, patient to titrate rate of administra tion, 80mL/hr into the Jejunal port of Jadiel GJ tube Miscellaneo 2020-0 Yes [id number] 4 straight [facility] 2-19 12" G ity of Supply Misc 00:00: bolus Ze Medical extensions Branch Miscellaneo 2020-0 Yes [id number] 4 right [facility] 2 angle 12" ity of Supply Misc 00:00: [place] feed [place] 00 extensions Medical Branch Gauze 2019-0 Yes [id number] Use as Unive rs Bandage 2-19 directed ity of (GAUZE PAD) 00:00: [place] 4 X 4 " 00 Medical Bndg Branch Miscellaneo 2019-0 Yes [id number] [facility] 01-02 [place] ity of Supply Misc 00:00: valve bags, 500 Medical ml Branch syringe, 2019-0 Yes [id number] 1{syrin 1 Syringe [facility] ENFit, 01-02 ge} 3 (three) ity of non-sterile 00:00: times [place] (MONOJECT 00 daily. Medical ENFIT Branch SYRINGE) 35 mL Syrg nut.tx.impa 2019-0 Yes [id number] 1000mL 1,000 mL [facility] ired renal 2-19 by PEG ity of fxn,soy 00:00: [place]ube [place] (NOVASOURCE 00 daily. Medica l RENAL 2 Method of Branch STAN) 0.09 feeding is gram- 2 pump, 4 kcal/mL cans per Liqd day, patient to titrate rate of administra tion, 80mL/hr into the Jejunal port of Jadiel GJ tube Miscellaneo 2020-0 Yes [id number] 4 straight [facility] 2-19 12" G ity of Supply Misc 00:00: bolus [place] Medical extensions Branch Miscellaneo 2020-0 Yes [id number] 4 right [facility] 2 angle 12" ity of Supply Misc 00:[place] Gauze 2020-0 Yes [id number] Use as Unive rs Bandage 2-19 directed ity of (GAUZE PAD) 00:00: [place] 4 X 4 " 00 Medical Bndg Branch Miscellaneo 2019-0 Yes [id number] enfit [facility] 2-19 [place] ity of Supply Misc 00:00: valve [place] 00 bags, 500 Medical ml Branch syringe, 2020-0 Yes [id number] 1{syrin 1 Syringe [facility], 2-19 ge} 3 (three) ity of non-sterile 00:00: times [place] (MONOJECT 00 daily. Medical ENFIT Branch SYRINGE) 35 mL Syrg nut.tx.impa 2020-0 Yes [id number] 1000mL 1,000 mL [facility] 2-19 by PEG ity of fxn,soy 00:00: [place]ube [place] (NOVASOURCE 00 daily. Medica l RENAL 2 Method of Branch STAN) 0.09 feeding is gram- 2 pump, 4 kcal/mL cans per Liqd day, patient to titrate rate of administra tion, 80mL/hr into the Jejunal port of Jadiel GJ tube Miscellaneo 2019-0 Yes [id number] 4 straight [facility] 19 12" G ity of Supply Misc 00:00: bolus [place] 00 Ze Medical extensions Branch Miscellaneo 2020-0 Yes [id number] 4 right [facility] 2-19 angle 12" ity of Supply Misc 00:00: [place] 00 extensions [place] [facility] Gauze 2020-0 Yes [id number] Use as Unive rs Bandage 2-19 directed ity of (GAUZE PAD) 00:00: [place] 4 X 4 " 00 Medical Bndg Branch Miscellaneo 2019-0 Yes [id number] [facility] -19 [place] ity of Supply Misc 00:00: valve [place] 00 bags, 500 Medical ml Branch syringe, 2020-0 Yes [id number] 1{syrin 1 Syringe [facility], 2-19 ge} 3 (three) ity of non-sterile 00:00: times [place] (MONOJECT 00 daily. Medical ENFIT Branch SYRINGE) 35 mL Syrg nut.tx.impa 2020-0 Yes [id number] 1000mL 1,000 mL [facility] 2-19 by PEG ity of fxn,soy 00:00: [place]ube route [place] (NOVASOURCE 00 daily. Medica l RENAL 2 Method of Branch STAN) 0.09 feeding is gram- 2 pump, 4 kcal/mL cans per Liqd day, patient to titrate rate of administra tion, 80mL/hr into the Jejunal port of Jadiel GJ tube Miscellaneo 2020-0 Yes [id number] 4 straight [facility] 2-19 12" G ity of Supply Misc 00:00: bolus [place] Medical extensions Branch Miscellaneo 2020-0 Yes [id number] 4 right [facility] 2-19 angle 12" ity of Supply Misc 00:00: [place] 00 extensions [facility] Branch Gauze 2019-0 Yes [id number] Use as Unive rs Bandage 2-19 directed ity of (GAUZE PAD) 00:00: [place] 4 X 4 " 00 Medical Bndg Branch Miscellaneo 2019-0 Yes [id number] [facility] 01-02 [place] ity of Supply Misc 00:00: valve bags, 500 Medical ml Branch syringe, 2019-0 Yes [id number] 1{syrin 1 Syringe [facility], 219 ge} 3 (three) ity of non-sterile 00:00: times [place] (MONOJECT 00 daily. Medical ENFIT Branch SYRINGE) 35 mL Syrg nut.tx.impa 0 Yes [id number] 1000mL 1,000 mL [facility] 2-19 by PEG ity of fxn,soy 00:00: [place]ube route [place] (NOVASOURCE 00 daily. Medica l RENAL 2 Method of Branch STAN) 0.09 feeding is gram- 2 pump, 4 kcal/mL cans per Liqd day, patient to titrate rate of administra tion, 80mL/hr into the Jejunal port of Jadiel GJ tube Miscellaneo 2020-0 Yes [id number] 4 straight [facility] 2-19 12" G ity of Supply Misc 00:00: bolus [place] Medical extensions Branch Miscellaneo 2020-0 Yes [id number] 4 right [facility] 2-19 angle 12" ity of Supply Misc 00:00: [place] 00 extensions Medical Branch Gauze 2020-0 Yes [id number] Use as Unive rs Bandage 2-19 directed ity of (GAUZE PAD) 00:00: [place] 4 X 4 " 00 Medical Bndg Branch Miscellaneo 2019-0 Yes [id number] enfit [facility] -19 [place] ity of Supply Misc 00:00: valve [place] 00 bags, 500 Medical ml Branch syringe, 2019-0 Yes [id number] 1{syrin 1 Syringe [facility], 2-19 ge} 3 (three) ity of non-sterile 00:00: times [place] (MONOJECT 00 daily. Medical ENFIT Branch SYRINGE) 35 mL Syrg nut.tx.impa 2020-0 Yes [id number] 1000mL 1,000 mL [facility] renal 2-19 by PEG ity of fxn,soy 00:00: [place]ube route [place] (NOVASOURCE 00 daily. Medica l RENAL 2 Method of Branch STAN) 0.09 feeding is gram- 2 pump, 4 kcal/mL cans per Liqd day, patient to titrate rate of administra tion, 80mL/hr into the Jejunal port of Jadiel GJ tube Miscellaneo 2019-0 Yes [id number] 4 straight [facility] 01-02 12" G ity of Supply Misc 00:00: bolus [place] 00 Ze Medical extensions Branch Miscellaneo 2020-0 Yes [id number] 4 right [facility] 01-02 angle 12" ity of Supply Misc 00:00: [place] feed [place] 00 extensions Medical Branch Gauze 2020-0 Yes [id number] Use as Unive rs Bandage 01-02 directed ity of (GAUZE PAD) 00:00: [place] 4 X 4 " 00 Medical Bndg Branch Miscellaneo 2020-0 Yes [id number] [facility] 19 [place] ity of Supply Misc 00:00: valve [place] 00 bags, 500 Medical ml Branch syringe, 2019-0 Yes [id number] 1{syrin 1 Syringe [facility], 2-19 ge} 3 (three) ity of non-sterile 00:00: times [place] (MONOJECT 00 daily. Medical ENFIT Branch SYRINGE) 35 mL Syrg nut.tx.impa 2020-0 Yes [id number] 1000mL 1,000 mL [facility] renal 2-19 by PEG ity of fxn,soy 00:00: Tube route [place] (NOVASOURCE 00 daily. Medica l RENAL 2 Method of Branch STAN) 0.09 feeding is gram- 2 pump, 4 kcal/mL cans per Liqd day, patient to titrate rate of administra tion, 80mL/hr into the Jejunal port of Jadiel GJ tube Miscellaneo 2020-0 Yes [id number] 4 straight [facility] 2-19 12" G ity of Supply Misc 00:00: bolus [place] Medical extensions Branch Miscellaneo 2020-0 Yes [id number] 4 right [facility] 219 angle 12" ity of Supply Misc 00:00: J feed [place] 00 extensions Medical Branch Gauze 2020-0 Yes [id number] Use as Unive rs Bandage 2-19 directed ity of (GAUZE PAD) 00:00: [place] 4 X 4 " 00 Medical Bndg Branch Miscellaneo 2019-0 Yes [id number] [facility] 01-02 [place] ity of Supply Misc 00:00: valve bags, 500 Medical ml Branch syringe, 2019-0 Yes [id number] 1{syrin 1 Syringe Univers [facility], 219 ge} 3 (three) ity of non-sterile 00:00: times [place] (MONOJECT 00 daily. Medical ENFIT Branch SYRINGE) 35 mL Syrg nut.tx.impa 2019-0 Yes [id number] 1000mL 1,000 mL [facility] 2-19 by PEG ity of fxn,soy 00:00: Tube route [place] (NOVASOURCE 00 daily. Medica l RENAL 2 Method of Branch STAN) 0.09 feeding is gram- 2 pump, 4 kcal/mL cans per Liqd day, patient to titrate rate of administra tion, 80mL/hr into the Jejunal port of Jadiel GJ tube Miscellaneo 2020-0 Yes [id number] 4 straight [facility] 2-19 12" G ity of Supply Misc 00:00: bolus [place] Medical extensions Branch Miscellaneo 2020-0 Yes [id number] 4 right [facility] 01-02 angle 12" ity of Supply Misc 00:00: J feed [place] 00 extensions Medical Branch Gauze 2020-0 Yes [id number] Use as Unive rs Bandage 2-19 directed ity of (GAUZE PAD) 00:00: [place] 4 X 4 " 00 Medical Bndg Branch Miscellaneo 2020-0 Yes [id number] enfit [facility] 2-19 [place] ity of Supply Misc 00:00: valve [place] 00 bags, 500 Medical ml Branch syringe, 2020-0 Yes [id number] 1{syrin 1 Syringe [facility], 2-19 ge} 3 (three) ity of non-sterile 00:00: times [place] (MONOJECT 00 daily. Medical ENFIT Branch SYRINGE) 35 mL Syrg nut.tx.impa 2020-0 Yes [id number] 1000mL 1,000 mL [facility] renal 2-19 by PEG ity of fxn,soy 00:00: Tube route [place] (NOVASOURCE 00 daily. Medica l RENAL 2 Method of Branch STAN) 0.09 feeding is gram- 2 pump, 4 kcal/mL cans per Liqd day, patient to titrate rate of administra tion, 80mL/hr into the Jejunal port of Jadiel GJ tube Miscellaneo 2020-0 Yes [id number] 4 straight [facility] 01-02 12" G ity of Supply Misc 00:00: bolus [place] 00 Ze Medical extensions Branch Miscellaneo 2020-0 Yes [id number] 4 right [facility] -19 angle 12" ity of Supply Misc 00:00: J feed [place] 00 extensions Medical Branch Gauze 2020-0 Yes [id number] Use as Unive rs Bandage 01-02 directed ity of (GAUZE PAD) 00:00: [place] 4 X 4 " 00 Medical Bndg Branch Miscellaneo 2020-0 Yes [id number] [facility] -19 [place] ity of Supply Misc 00:00: valve [place] 00 bags, 500 Medical ml Branch syringe, 2019-0 Yes [id number] 1{syrin 1 Syringe [facility], 2-19 ge} 3 (three) ity of non-sterile 00:00: times [place] (MONOJECT 00 daily. Medical ENFIT Branch SYRINGE) 35 mL Syrg nut.tx.impa 2020-0 Yes [id number] 1000mL 1,000 mL [facility] i[facility] renal 2-19 by PEG ity of fxn,soy 00:00: Tube route [place] (NOVASOURCE 00 daily. Medica l RENAL 2 Method of Branch STAN) 0.09 feeding is gram- 2 pump, 4 kcal/mL cans per Liqd day, patient to titrate rate of administra tion, 80mL/hr into the Jejunal port of Jadiel GJ tube Miscellaneo 2020-0 Yes [id number] 4 straight [facility] 2-19 12" G ity of Supply Misc 00:00: bolus [place] Medical extensions Branch Miscellaneo 2020-0 Yes [id number] 4 right [facility] 01-02 angle 12" ity of Supply Misc 00:00: J feed [place] 00 extensions Medical Branch Gauze 2020-0 Yes [id number] Use as Unive rs Bandage 2-19 directed ity of (GAUZE PAD) 00:00: [place] 4 X 4 " 00 Medical Bndg Branch Miscellaneo 2019-0 Yes [id number] [facility] 01-02 [place] ity of Supply Misc 00:00: valve [place], 500 Medical ml Branch syringe, 2019-0 Yes [id number] 1{syrin 1 Syringe [facility], 219 ge} 3 (three) ity of non-sterile 00:00: times [place] (MONOJECT 00 daily. Medical ENFIT Branch SYRINGE) 35 mL Syrg nut.tx.impa 2019-0 Yes [id number] 1000mL 1,000 mL [facility] i[facility] renal 2-19 by PEG ity of fxn,soy 00:00: Tube route [place] (NOVASOURCE 00 daily. Medica l RENAL 2 Method of Branch STAN) 0.09 feeding is gram- 2 pump, 4 kcal/mL cans per Liqd day, patient to titrate rate of administra tion, 80mL/hr into the Jejunal port of Jadiel GJ tube Miscellaneo 2020-0 Yes [id number] 4 [facility] 2-19 12" G ity of Supply Misc 00:00: bolus Ze Medical extensions Branch Miscellaneo 2020-0 Yes [id number] 4 right [facility] 01-02 angle 12" ity of Supply Misc 00:00: J feed [place] 00 extensions Medical Branch Gauze 2020-0 Yes [id number] Use as Unive rs Bandage 2-19 directed ity of (GAUZE PAD) 00:00: [place] 4 X 4 " 00 Medical Bndg Branch Miscellaneo 2019-0 Yes [id number] enfit [facility] 2-19 [place] ity of Supply Misc 00:00: valve [place] 00 bags, 500 Medical ml Branch syringe, 2019-0 Yes [id number] 1{syrin 1 Syringe [facility], 2-19 ge} 3 (three) ity of non-sterile 00:00: times [place] (MONOJECT 00 daily. Medical ENFIT Branch SYRINGE) 35 mL Syrg nut.tx.impa 2020-0 Yes [id number] 1000mL 1,000 mL [facility] ired renal 2-19 by PEG ity of fxn,soy 00:00: Tube route [place] (NOVASOURCE 00 daily. Medica l RENAL 2 Method of Branch STAN) 0.09 feeding is gram- 2 pump, 4 kcal/mL cans per Liqd day, patient to titrate rate of administra tion, 80mL/hr into the Jejunal port of Jadiel GJ tube Miscellaneo 2020-0 Yes [id number] 4 straight [facility] -19 12" G ity of Supply Misc 00:00: bolus [place] 00 Ze Medical extensions Branch Miscellaneo 2020-0 Yes [id number] 4 right [facility] -19 angle 12" ity of Supply Misc 00:00: J feed [place] 00 extensions Medical Branch Gauze 2020-0 Yes [id number] Use as Unive rs Bandage 2-19 directed ity of (GAUZE PAD) 00:00: [place] 4 X 4 " 00 Medical Bndg Branch Miscellaneo 2020-0 Yes [id number] [facility] 2-19 [place] ity of Supply Misc 00:00: valve [place] 00 bags, 500 Medical ml Branch syringe, 2019-0 Yes [id number] 1{syrin 1 Syringe [facility], 2-19 ge} 3 (three) ity of non-sterile 00:00: times [place] (MONOJECT 00 daily. Medical ENFIT Branch SYRINGE) 35 mL Syrg nut.tx.impa 2020-0 Yes [id number] 1000mL 1,000 mL [facility] ired renal 2-19 by PEG ity of fxn,soy 00:00: Tube route [place] (NOVASOURCE 00 daily. Medica l RENAL 2 Method of Branch STAN) 0.09 feeding is gram- 2 pump, 4 kcal/mL cans per Liqd day, patient to titrate rate of administra tion, 80mL/hr into the Jejunal port of Jadiel GJ tube Miscellaneo 2020-0 Yes [id number] 4 straight [facility] 2-19 12" G ity of Supply Misc 00:00: bolus [place] Medical extensions Branch Miscellaneo 2020-0 Yes [id number] 4 right [facility] 19 angle 12" ity of Supply Misc 00:00: J feed [place] 00 extensions Medical Branch Gauze 2020-0 Yes [id number] Use as Unive rs Bandage 2-19 directed ity of (GAUZE PAD) 00:00: [place] 4 X 4 " 00 Medical Bndg Branch Miscellaneo 0 Yes [id number] [facility] 01-02 [place] ity of Supply Misc 00:00: valve bags, 500 Medical ml Branch syringe, 0 Yes [id number] 1{syrin 1 Syringe Univers [facility], 219 ge} 3 (three) ity of non-sterile 00:00: times [place] (MONOJECT 00 daily. Medical ENFIT Branch SYRINGE) 35 mL Syrg nut.tx.impa 0 Yes [id number] 1000mL 1,000 mL [facility] ired renal 2-19 by PEG ity of fxn,soy 00:00: Tube route [place] (NOVASOURCE 00 daily. Medica l RENAL 2 Method of Branch STAN) 0.09 feeding is gram- 2 pump, 4 kcal/mL cans per Liqd day, patient to titrate rate of administra tion, 80mL/hr into the Jejunal port of Jadiel GJ tube Miscellaneo 2020-0 Yes [id number] 4 straight [facility] 2-19 12" G ity of Supply Misc 00:00: bolus Ze Medical extensions Branch Miscellaneo 2020-0 Yes [id number] 4 right [facility] 01-02 angle 12" ity of Supply Misc 00:00: J feed [place] 00 extensions Medical Branch Gauze 2020-0 Yes [id number] Use as Unive rs Bandage 2-19 directed ity of (GAUZE PAD) 00:00: [place] 4 X 4 " 00 Medical Bndg Branch Miscellaneo 2019-0 Yes [id number] enfit [facility] 2-19 [place] ity of Supply Misc 00:00: valve [place] 00 bags, 500 Medical ml Branch syringe, 2020-0 Yes [id number] 1{syrin 1 Syringe [facility], 2-19 ge} 3 (three) ity of non-sterile 00:00: times [place] (MONOJECT 00 daily. Medical ENFIT Branch SYRINGE) 35 mL Syrg nut.tx.impa 2020-0 Yes [id number] 1000mL 1,000 mL [facility] ired renal 2-19 by PEG ity of fxn,soy 00:00: Tube route [place] (NOVASOURCE 00 daily. Medica l RENAL 2 Method of Branch STAN) 0.09 feeding is gram- 2 pump, 4 kcal/mL cans per Liqd day, patient to titrate rate of administra tion, 80mL/hr into the Jejunal port of Jadiel GJ tube Miscellaneo 2020-0 Yes [id number] 4 straight [facility] 2-19 12" G ity of Supply Misc 00:00: bolus [place] 00 Ze Medical extensions Branch Miscellaneo 2020-0 Yes [id number] 4 right [facility] 2-19 angle 12" ity of Supply Misc 00:00: J feed [place] 00 extensions Medical Branch Gauze 2020-0 Yes [id number] Use as Unive rs Bandage 2-19 directed ity of (GAUZE PAD) 00:00: [place] 4 X 4 " 00 Medical Bndg Branch Miscellaneo 2020-0 Yes [id number] [facility] 2-19 [place] ity of Supply Misc 00:00: valve [place] 00 bags, 500 Medical ml Branch syringe, 2019-0 Yes [id number] 1{syrin 1 Syringe [facility], 2-19 ge} 3 (three) ity of non-sterile 00:00: times [place] (MONOJECT 00 daily. Medical ENFIT Branch SYRINGE) 35 mL Syrg nut.tx.impa 2020-0 Yes [id number] 1000mL 1,000 mL [facility] ired renal 2-19 by PEG ity of fxn,soy 00:00: Tube route [place] (NOVASOURCE 00 daily. Medica l RENAL 2 Method of Branch STAN) 0.09 feeding is gram- 2 pump, 4 kcal/mL cans per Liqd day, patient to titrate rate of administra tion, 80mL/hr into the Jejunal port of Jadiel GJ tube Miscellaneo 2020-0 Yes [id number] 4 straight [facility] 2-19 12" G ity of Supply Misc 00:00: bolus [place] Medical extensions Branch Miscellaneo 2020-0 Yes [id number] 4 right [facility] 19 angle 12" ity of Supply Misc 00:00: J feed [place] 00 extensions Medical Branch Gauze 2020-0 Yes [id number] Use as Unive rs Bandage 2-19 directed ity of (GAUZE PAD) 00:00: [place] 4 X 4 " 00 Medical Bndg Branch Miscellaneo 0 Yes [id number] [facility] 01-02 [place] ity of Supply Misc 00:00: valve bags, 500 Medical ml Branch syringe, 0 Yes [id number] 1{syrin 1 Syringe [facility], 219 ge} 3 (three) ity of non-sterile 00:00: times [place] (MONOJECT 00 daily. Medical ENFIT Branch SYRINGE) 35 mL Syrg nut.tx.impa 0 Yes [id number] 1000mL 1,000 mL [facility] ired renal 2-19 by PEG ity of fxn,soy 00:00: Tube route [place] (NOVASOURCE 00 daily. Medica l RENAL 2 Method of Branch STAN) 0.09 feeding is gram- 2 pump, 4 kcal/mL cans per Liqd day, patient to titrate rate of administra tion, 80mL/hr into the Jejunal port of Jadiel GJ tube Miscellaneo 2020-0 Yes [id number] 4 straight [facility] 2-19 12" G ity of Supply Misc 00:00: bolus Ze Medical extensions Branch Miscellaneo 2020-0 Yes [id number] 4 right [facility] 01-02 angle 12" ity of Supply Misc 00:00: J feed [place] 00 extensions Medical Branch Gauze 2020-0 Yes [id number] Use as Unive rs Bandage 2-19 directed ity of (GAUZE PAD) 00:00: [place] 4 X 4 " 00 Medical Bndg Branch Miscellaneo 2020-0 Yes [id number] enfit [facility] -19 [place] ity of Supply Misc 00:00: valve [place] 00 bags, 500 Medical ml Branch syringe, 2019-0 Yes [id number] 1{syrin 1 Syringe [facility], 2-19 ge} 3 (three) ity of non-sterile 00:00: times [place] (MONOJECT 00 daily. Medical ENFIT Branch SYRINGE) 35 mL Syrg nut.tx.impa 2020-0 Yes [id number] 1000mL 1,000 mL [facility] ired renal 2-19 by PEG ity of fxn,soy 00:00: Tube route [place] (NOVASOURCE 00 daily. Medica l RENAL 2 Method of Branch STAN) 0.09 feeding is gram- 2 pump, 4 kcal/mL cans per Liqd day, patient to titrate rate of administra tion, 80mL/hr into the Jejunal port of Jadiel GJ tube Miscellaneo 2020-0 Yes [id number] 4 straight [facility] 01-02 12" G ity of Supply Misc 00:00: bolus [place] 00 Ze Medical extensions Branch Miscellaneo 2020-0 Yes [id number] 4 right [facility] -19 angle 12" ity of Supply Misc 00:00: J feed [place] 00 extensions Medical Branch Gauze 2020-0 Yes [id number] Use as Unive rs Bandage 01-02 directed ity of (GAUZE PAD) 00:00: [place] 4 X 4 " 00 Medical Bndg Branch Miscellaneo 2020-0 Yes [id number] [facility] -19 [place] ity of Supply Misc 00:00: valve [place] 00 bags, 500 Medical ml Branch syringe, 2019-0 Yes [id number] 1{syrin 1 Syringe [facility]NFit, 2-19 ge} 3 (three) ity of non-sterile 00:00: times [place] (MONOJECT 00 daily. Medical ENFIT Branch SYRINGE) 35 mL Syrg nut.tx.impa 2020-0 Yes [id number] 1000mL 1,000 mL [facility] ired renal 2-19 by PEG ity of fxn,soy 00:00: Tube route [place] (NOVASOURCE 00 daily. Medica l RENAL 2 Method of Branch STAN) 0.09 feeding is gram- 2 pump, 4 kcal/mL cans per Liqd day, patient to titrate rate of administra tion, 80mL/hr into the Jejunal port of Jadiel GJ tube Miscellaneo 2020-0 Yes [id number] 4 straight [facility] 2-19 12" G ity of Supply Misc 00:00: bolus Ze Medical extensions Branch Miscellaneo 2020-0 Yes [id number] 4 right [facility] 01-02 angle 12" ity of Supply Misc 00:00: J feed [place] 00 extensions Medical Branch Gauze 2020-0 Yes [id number] Use as Unive rs Bandage 2-19 directed ity of (GAUZE PAD) 00:00: [place] 4 X 4 " 00 Medical Bndg Branch Miscellaneo 2019-0 Yes [id number] [facility] 01-02 [place] ity of Supply Misc 00:00: valve bags, 500 Medical ml Branch syringe, 0 Yes [id number] 1{syrin 1 Syringe [facility], 219 ge} 3 (three) ity of non-sterile 00:00: times [place] (MONOJECT 00 daily. Medical ENFIT Branch SYRINGE) 35 mL Syrg nut.tx.impa 2019-0 Yes [id number] 1000mL 1,000 mL [facility] ired renal 2-19 by PEG ity of fxn,soy 00:00: Tube route [place] (NOVASOURCE 00 daily. Medica l RENAL 2 Method of Branch STAN) 0.09 feeding is gram- 2 pump, 4 kcal/mL cans per Liqd day, patient to titrate rate of administra tion, 80mL/hr into the Jejunal port of Jadiel GJ tube Miscellaneo 2020-0 Yes [id number] 4 straight [facility] 2-19 12" G ity of Supply Misc 00:00: bolus Ze Medical extensions Branch Miscellaneo 2020-0 Yes [id number] 4 right [facility] -19 angle 12" ity of Supply Misc 00:00: J feed [place] 00 extensions Medical Branch Gauze 2020-0 Yes [id number] Use as Unive rs Bandage 2-19 directed ity of (GAUZE PAD) 00:00: [place] 4 X 4 " 00 Medical Bndg Branch Miscellaneo 2020-0 Yes [id number] enfit [facility] 2-19 [place] ity of Supply Misc 00:00: valve [place] 00 bags, 500 Medical ml Branch syringe, 2019-0 Yes [id number] 1{syrin 1 Syringe [facility]it, 2-19 ge} 3 (three) ity of non-sterile 00:00: times [place] (MONOJECT 00 daily. Medical ENFIT Branch SYRINGE) 35 mL Syrg nut.tx.impa 2020-0 Yes [id number] 1000mL 1,000 mL [facility] ired renal 2-19 by PEG ity of fxn,soy 00:00: Tube route [place] (NOVASOURCE 00 daily. Medica l RENAL 2 Method of Branch STAN) 0.09 feeding is gram- 2 pump, 4 kcal/mL cans per Liqd day, patient to titrate rate of administra tion, 80mL/hr into the Jejunal port of Jadiel GJ tube Miscellaneo 2020-0 Yes [id number] 4 straight [facility] 01-02 12" G ity of Supply Misc 00:00: bolus [place] 00 Ze Medical extensions Branch Miscellaneo 2020-0 Yes [id number] 4 right [facility] - angle 12" ity of Supply Misc 00:00: J feed [place] 00 extensions Medical Branch Gauze 2020-0 Yes [id number] Use as Unive rs Bandage 01-02 directed ity of (GAUZE PAD) 00:00: [place] 4 X 4 " 00 Medical Bndg Branch Miscellaneo 2020-0 Yes [id number] [facility] -19 [place] ity of Supply Misc 00:00: valve [place] 00 bags, 500 Medical ml Branch syringe, 2019-0 Yes [id number] 1{syrin 1 Syringe [facility]NFit, 2-19 ge} 3 (three) ity of non-sterile 00:00: times [place] (MONOJECT 00 daily. Medical ENFIT Branch SYRINGE) 35 mL Syrg nut.tx.impa 2020-0 Yes [id number] 1000mL 1,000 mL [facility] ired renal 2-19 by PEG ity of fxn,soy 00:00: Tube route [place] (NOVASOURCE 00 daily. Medica l RENAL 2 Method of Branch STAN) 0.09 feeding is gram- 2 pump, 4 kcal/mL cans per Liqd day, patient to titrate rate of administra tion, 80mL/hr into the Jejunal port of Jadiel GJ tube Miscellaneo 2020-0 Yes [id number] 4 straight [facility] 2-19 12" G ity of Supply Misc 00:00: bolus Ze Medical extensions Branch Miscellaneo 2020-0 Yes [id number] 4 right [facility] 2-19 angle 12" ity of Supply Misc 00:00: [place] 00 extensions Medical Branch Gauze 2020-0 Yes [id number] Use as Unive rs Bandage 2-19 directed ity of (GAUZE PAD) 00:00: [place] 4 X 4 " 00 Medical Bndg Branch Miscellaneo 2020-0 Yes [id number] [facility] 01-02 [place] ity of Supply Misc 00:00: valve bags, 500 Medical ml Branch syringe, 2019-0 Yes [id number] 1{syrin 1 [facility]ringe [facility]} 3 (three) ity of non-sterile 00:00: times [place] (MONOJECT 00 daily. Medical ENFIT Branch SYRINGE) 35 mL Syrg nut.tx.impa 2019-0 Yes [id number] 1000mL 1,000 mL [facility] ired renal 2-19 by PEG ity of fxn,soy 00:00: Tube route [place] (NOVASOURCE 00 daily. Medica l RENAL 2 Method of Branch STAN) 0.09 feeding is gram- 2 pump, 4 kcal/mL cans per Liqd day, patient to titrate rate of administra tion, 80mL/hr into the Jejunal port of Jadiel GJ tube Miscellaneo 2020-0 Yes [id number] 4 straight [facility] 2-19 12" G ity of Supply Misc 00:00: bolus [place] Ze Medical extensions Branch Miscellaneo 2020-0 Yes [id number] 4 right [facility] 2-19 angle 12" ity of Supply Misc 00:00: [place] 00 extensions Medical Branch Gauze 2020-0 Yes [id number] Use as Unive rs Bandage 2-19 directed ity of (GAUZE PAD) 00:00: [place] 4 X 4 " 00 Medical Bndg Branch Miscellaneo 2020-0 Yes [id number] enfit [facility] -19 [place] ity of Supply Misc 00:00: valve [place] 00 bags, 500 Medical ml Branch syringe, 2019-0 Yes [id number] 1{syrin 1 Syringe [facility] ENFit, 2-19 ge} 3 (three) ity of non-sterile 00:00: times [place] (MONOJECT 00 daily. Medical ENFIT Branch SYRINGE) 35 mL Syrg nut.tx.impa 2020-0 Yes [id number] 1000mL 1,000 mL [facility] 2-19 by PEG ity of fxn,[place] 00:00: [place] (NOVASOURCE 00 daily. Medica l RENAL 2 Method of Branch STAN) 0.09 feeding is gram- 2 pump, 4 kcal/mL cans per Liqd day, patient to titrate rate of administra tion, 80mL/hr into the Jejunal port of Jadiel GJ tube Miscellaneo 2020-0 Yes [id number] 4 straight [facility] 01-02 12" G ity of Supply Misc 00:00: bolus [place] 00 Ze Medical extensions Branch Miscellaneo 2020-0 Yes [id number] 4 right [facility] -19 angle 12" ity of Supply Misc 00:00: [place] 00 extensions Medical Branch Gauze 2020-0 Yes [id number] Use as Unive rs Bandage 2 directed ity of (GAUZE PAD) 00:00: [place] 4 X 4 " 00 Medical Bndg Branch Miscellaneo 2020-0 Yes [id number] [facility] -19 [place] ity of Supply Misc 00:00: valve [place] 00 bags, 500 Medical ml Branch syringe, 2019-0 Yes [id number] 1{syrin 1 Syringe [facility]NFit, 2-19 ge} 3 (three) ity of non-sterile 00:00: times [place] (MONOJECT 00 daily. Medical ENFIT Branch SYRINGE) 35 mL Syrg nut.tx.impa 2019-0 Yes [id number] 1000mL 1,000 mL [facility] renal 2-19 by PEG ity of fxn,soy 00:00: [place] (NOVASOURCE 00 daily. Medica l RENAL 2 Method of Branch STAN) 0.09 feeding is gram- 2 pump, 4 kcal/mL cans per Liqd day, patient to titrate rate of administra tion, 80mL/hr into the Jejunal port of Jadiel GJ tube Miscellaneo 2020-0 Yes [id number] 4 straight [facility] 2-19 12" G ity of Supply Misc 00:00: bolus [place] Medical extensions Branch Miscellaneo 2020-0 Yes [id number] 4 right [facility] 2-19 angle 12" ity of Supply Misc 00:00: [place] 00 extensions [place] Branch Gauze 2020-0 Yes [id number] Use as Unive rs Bandage 2-19 directed ity of (GAUZE PAD) 00:00: [place] 4 X 4 " 00 Medical Bndg Branch Miscellaneo 2019-0 [id number] [place] ity of [facility] Misc 00:00: valve bags, 500 Medical ml Branch syringe, 0 Yes [id number] 1{syrin 1 [facility]} 3 (three) ity of non-sterile 00:00: times [place] (MONOJECT 00 daily. Medical ENFIT Branch SYRINGE) 35 mL Syrg nut.tx.impa 2019-0 Yes [id number] 1000mL 1,000 mL [facility] renal 2-19 by PEG ity of fxn,soy 00:00: [place]ube [place] (NOVASOURCE 00 daily. Medica l RENAL 2 Method of Branch STAN) 0.09 feeding is gram- 2 pump, 4 kcal/mL cans per Liqd day, patient to titrate rate of administra tion, 80mL/hr into the Jejunal port of Jadiel GJ tube Miscellaneo 2020-0 Yes [id number] 4 straight [facility] 2-19 12" G ity of Supply Misc 00:00: bolus [place] Ze Medical extensions Branch Miscellaneo 2020-0 Yes [id number] 4 right [facility] 2-19 angle 12" ity of Supply Misc 00:00: [place] 00 extensions Medical Branch Gauze 2020-0 Yes [id number] Use as Unive rs Bandage 2-19 directed ity of (GAUZE PAD) 00:00: [place] 4 X 4 " 00 Medical Bndg Branch Miscellaneo 2020-0 Yes [id number] enfit [facility] 2-19 [place] ity of Supply Misc 00:00: valve [place] 00 bags, 500 Medical ml Branch syringe, 2020-0 Yes [id number] 1{syrin 1 Syringe [facility], 2-19 ge} 3 (three) ity of non-sterile 00:00: times [place] (MONOJECT 00 daily. Medical ENFIT Branch SYRINGE) 35 mL Syrg nut.tx.impa 2019-0 Yes [id number] 1000mL 1,000 mL [facility] renal 2-19 by PEG ity of fxn,soy 00:00: [place]ube route [place] (NOVASOURCE 00 daily. Medica l RENAL 2 Method of Branch STAN) 0.09 feeding is gram- 2 pump, 4 kcal/mL cans per Liqd day, patient to titrate rate of administra tion, 80mL/hr into the Jejunal port of Jadiel GJ tube Miscellaneo 2020-0 Yes [id number] 4 straight [facility] 2-19 12" G ity of Supply Misc 00:00: bolus [place] 00 Ze Medical extensions Branch Miscellaneo 2020-0 Yes [id number] 4 right [facility] 2-19 angle 12" ity of Supply Misc 00:00: [place] extensions Medical [place] Gauze 2020-0 Yes [id number] Use as Unive rs Bandage 2-19 directed ity of (GAUZE PAD) 00:00: [place] 4 X 4 " 00 Medical Bndg Branch Miscellaneo 2020-0 Yes [id number] [facility] 2-19 [place] ity of Supply Misc 00:00: valve [place] 00 bags, 500 Medical ml Branch syringe, 2019-0 Yes [id number] 1{syrin 1 Syringe [facility], 2-19 ge} 3 (three) ity of non-sterile 00:00: times [place] (MONOJECT 00 daily. Medical ENFIT Branch SYRINGE) 35 mL Syrg nut.tx.impa 2020-0 Yes [id number] 1000mL 1,000 mL [facility] renal 2-19 by PEG ity of fxn,soy 00:00: [place]ube route [place] (NOVASOURCE 00 daily. Medica l RENAL 2 Method of Branch STAN) 0.09 feeding is gram- 2 pump, 4 kcal/mL cans per Liqd day, patient to titrate rate of administra tion, 80mL/hr into the Jejunal port of Jadiel GJ tube Miscellaneo 2020-0 Yes [id number] 4 straight [facility] 2-19 12" G ity of Supply Misc 00:00: [place] Medical extensions Branch Miscellaneo 2020-0 Yes [id number] 4 right [facility] 219 angle 12" ity of Supply Misc 00:00: [place] feed [place] 00 extensions Medical Branch Gauze 2020-0 Yes [id number] Use as Unive rs Bandage 2-19 directed ity of (GAUZE PAD) 00:00: [place] 4 X 4 " 00 Medical Bndg Branch Miscellaneo 2019-0 [id number] [place] ity of Supply Misc 00:00: valve bags, 500 Medical ml Branch syringe, 0 Yes [id number] 1{syrin 1 Syringe [facility], 01-02 ge} 3 (three) ity of non-sterile 00:00: times [place] (MONOJECT 00 daily. Medical ENFIT Branch SYRINGE) 35 mL Syrg nut.tx.impa 0 Yes [id number] 1000mL 1,000 mL [facility] renal 2-19 by PEG ity of fxn,soy 00:00: Tube route [place] (NOVASOURCE 00 daily. Medica l RENAL 2 Method of Branch STAN) 0.09 feeding is gram- 2 pump, 4 kcal/mL cans per Liqd day, patient to titrate rate of administra tion, 80mL/hr into the Jejunal port of Jadiel GJ tube Miscellaneo 2020-0 Yes [id number] 4 straight [facility] 2-19 12" G ity of Supply Misc 00:00: bolus [place] Medical extensions Branch Miscellaneo 2020-0 Yes [id number] 4 right [facility] 2-19 angle 12" ity of Supply Misc 00:00: [place] feed [place] 00 extensions Medical Branch Gauze 2020-0 Yes [id number] Use as Unive rs Bandage 2-19 directed ity of (GAUZE PAD) 00:00: [place] 4 X 4 " 00 Medical Bndg Branch Miscellaneo 2020-0 Yes [id number] enfit [facility] 2-19 [place] ity of Supply Misc 00:00: valve [place] 00 bags, 500 Medical ml Branch syringe, 2020-0 Yes [id number] 1{syrin 1 Syringe [facility], 2-19 ge} 3 (three) ity of non-sterile 00:00: times [place] (MONOJECT 00 daily. Medical ENFIT Branch SYRINGE) 35 mL Syrg nut.tx.impa 2019-0 Yes [id number] 1000mL 1,000 mL [facility] renal 2-19 by PEG ity of fxn,soy 00:00: Tube route [place] (NOVASOURCE 00 daily. Medica l RENAL 2 Method of Branch STAN) 0.09 feeding is gram- 2 pump, 4 kcal/mL cans per Liqd day, patient to titrate rate of administra tion, 80mL/hr into the Jejunal port of Jadiel GJ tube Miscellaneo 2020-0 Yes [id number] 4 straight [facility] 01-02 12" G ity of Supply Misc 00:00: bolus [place] 00 Ze Medical extensions Branch Miscellaneo 2020-0 Yes [id number] 4 right [facility] -19 angle 12" ity of Supply Misc 00:00: J feed [place] 00 extensions Medical Branch Gauze 2020-0 Yes [id number] Use as Unive rs Bandage 2-19 directed ity of (GAUZE PAD) 00:00: [place] 4 X 4 " 00 Medical Bndg Branch Miscellaneo 2020-0 Yes [id number] [facility] 2-19 [place] ity of Supply Misc 00:00: valve [place] 00 bags, 500 Medical ml Branch syringe, 2019-0 Yes [id number] 1{syrin 1 Syringe [facility], 2-19 ge} 3 (three) ity of non-sterile 00:00: times [place] (MONOJECT 00 daily. Medical ENFIT Branch SYRINGE) 35 mL Syrg nut.tx.impa 2020-0 Yes [id number] 1000mL 1,000 mL [facility] renal 2-19 by PEG ity of fxn,soy 00:00: Tube route [place] (NOVASOURCE 00 daily. Medica l RENAL 2 Method of Branch STAN) 0.09 feeding is gram- 2 pump, 4 kcal/mL cans per Liqd day, patient to titrate rate of administra tion, 80mL/hr into the Jejunal port of Jadiel GJ tube Miscellaneo 2020-0 Yes [id number] 4 straight [facility] 2-19 12" G ity of Supply Misc 00:00: [place] Medical extensions Branch Miscellaneo 2020-0 Yes [id number] 4 right [facility] 2 angle 12" ity of Supply Misc 00:00: J feed [place] 00 extensions Medical Branch Gauze 2020-0 Yes [id number] Use as Unive rs Bandage 2-19 directed ity of (GAUZE PAD) 00:00: [place] 4 X 4 " 00 Medical Bndg Branch Miscellaneo 2019-0 Yes [id number] [facility] 01-02 [place] ity of Supply Misc 00:00: valve bags, 500 Medical ml Branch syringe, 0 Yes [id number] 1{syrin 1 Syringe [facility], 219 ge} 3 (three) ity of non-sterile 00:00: times [place] (MONOJECT 00 daily. Medical ENFIT Branch SYRINGE) 35 mL Syrg nut.tx.impa 0 Yes [id number] 1000mL 1,000 mL [facility] renal 2-19 by PEG ity of fxn,soy 00:00: Tube route [place] (NOVASOURCE 00 daily. Medica l RENAL 2 Method of Branch STAN) 0.09 feeding is gram- 2 pump, 4 kcal/mL cans per Liqd day, patient to titrate rate of administra tion, 80mL/hr into the Jejunal port of Jadiel GJ tube Miscellaneo 2020-0 Yes [id number] 4 straight [facility] 2-19 12" G ity of Supply Misc 00:00: [place] Medical extensions Branch Miscellaneo 2020-0 Yes [id number] 4 right [facility] 2-19 angle 12" ity of Supply Misc 00:00: J feed [place] 00 extensions Medical Branch Gauze 2020-0 Yes [id number] Use as Unive rs Bandage 2-19 directed ity of (GAUZE PAD) 00:00: [place] 4 X 4 " 00 Medical Bndg Branch Miscellaneo 2020-0 Yes [id number] enfit [facility] -19 [place] ity of Supply Misc 00:00: valve [place] 00 bags, 500 Medical ml Branch syringe, 2020-0 Yes [id number] 1{syrin 1 Syringe [facility], 2-19 ge} 3 (three) ity of non-sterile 00:00: times [place] (MONOJECT 00 daily. Medical ENFIT Branch SYRINGE) 35 mL Syrg nut.tx.impa 2020-0 Yes [id number] 1000mL 1,000 mL [facility] renal 2-19 by PEG ity of fxn,soy 00:00: Tube route [place] (NOVASOURCE 00 daily. Medica l RENAL 2 Method of Branch STAN) 0.09 feeding is gram- 2 pump, 4 kcal/mL cans per Liqd day, patient to titrate rate of administra tion, 80mL/hr into the Jejunal port of Jadiel GJ tube Miscellaneo 2020-0 Yes [id number] 4 straight [facility] 01-02 12" G ity of Supply Misc 00:00: bolus [place] 00 Ze Medical extensions Branch Miscellaneo 2020-0 Yes [id number] 4 right [facility] - angle 12" ity of Supply Misc 00:00: J feed [place] 00 extensions Medical Branch Gauze 2020-0 Yes [id number] Use as Unive rs Bandage 2-19 directed ity of (GAUZE PAD) 00:00: [place] 4 X 4 " 00 Medical Bndg Branch Miscellaneo 2020-0 Yes [id number] [facility] 2-19 [place] ity of Supply Misc 00:00: valve [place] 00 bags, 500 Medical ml Branch syringe, 2020-0 Yes [id number] 1{syrin 1 Syringe [facility], 2-19 ge} 3 (three) ity of non-sterile 00:00: times [place] (MONOJECT 00 daily. Medical ENFIT Branch SYRINGE) 35 mL Syrg nut.tx.impa 2020-0 Yes [id number] 1000mL 1,000 mL [facility] renal 2-19 by PEG ity of fxn,soy 00:00: Tube route [place] (NOVASOURCE 00 daily. Medica l RENAL 2 Method of Branch STAN) 0.09 feeding is gram- 2 pump, 4 kcal/mL cans per Liqd day, patient to titrate rate of administra tion, 80mL/hr into the Jejunal port of Jadiel GJ tube Miscellaneo 2020-0 Yes [id number] 4 straight [facility] 219 12" G ity of Supply Misc 00:00: bolus [place] Medical extensions Branch Miscellaneo 2019-0 Yes [id number] 4 right [facility] 01-02 angle 12" ity of Supply Misc 00:00: J feed [place] 00 extensions Medical Branch Gauze 2019-0 Yes [id number] Use as Unive rs Bandage 2-19 directed ity of (GAUZE PAD) 00:00: [place] 4 X 4 " 00 Medical Bndg Branch Miscellaneo 0 Yes [id number] [facility] 01-02 [place] ity of Supply Misc 00:00: valve bags, 500 Medical ml Branch syringe, 0 Yes [id number] 1{syrin 1 Syringe Univers [facility], 01-02 ge} 3 (three) ity of non-sterile 00:00: times [place] (MONOJECT 00 daily. Medical ENFIT Branch SYRINGE) 35 mL Syrg nut.tx.impa 0 Yes [id number] 1000mL 1,000 mL [facility] ired renal 2-19 by PEG ity of fxn,soy 00:00: Tube route [place] (NOVASOURCE 00 daily. Medica l RENAL 2 Method of Branch STAN) 0.09 feeding is gram- 2 pump, 4 kcal/mL cans per Liqd day, patient to titrate rate of administra tion, 80mL/hr into the Jejunal port of Jadiel GJ tube Miscellaneo 2020-0 Yes [id number] 4 [facility] 219 12" G ity of Supply Misc 00:00: bolus [place] Medical extensions Branch Miscellaneo 2020-0 Yes [id number] 4 right [facility] 2-19 angle 12" ity of Supply Misc 00:00: J feed [place] 00 extensions Medical Branch Gauze 2020-0 Yes [id number] Use as Unive rs Bandage 2-19 directed ity of (GAUZE PAD) 00:00: [place] 4 X 4 " 00 Medical Bndg Branch Miscellaneo 2020-0 [id number] [place] ity of Supply Misc 00:00: valve [place] 00 bags, 500 Medical ml Branch syringe, 2020-0 Yes [id number] 1{syrin 1 Syringe [facility], 2-19 ge} 3 (three) ity of non-sterile 00:00: times [place] (MONOJECT 00 daily. Medical ENFIT Branch SYRINGE) 35 mL Syrg nut.tx.impa 2020-0 Yes [id number] 1000mL 1,000 mL [facility] renal 2-19 by PEG ity of fxn,soy 00:00: Tube route [place] (NOVASOURCE 00 daily. Medica l RENAL 2 Method of Branch STAN) 0.09 feeding is gram- 2 pump, 4 kcal/mL cans per Liqd day, patient to titrate rate of administra tion, 80mL/hr into the Jejunal port of Jadiel GJ tube Miscellaneo 2020-0 Yes [id number] 4 straight [facility] 01-02 12" G ity of Supply Misc 00:00: bolus [place] 00 Ze Medical extensions Branch Miscellaneo 2020-0 Yes [id number] 4 right [facility] 01-02 angle 12" ity of Supply Misc 00:00: J feed [place] 00 extensions Medical Branch Gauze 2020-0 Yes [id number] Use as Unive rs Bandage -19 directed ity of (GAUZE PAD) 00:00: [place] 4 X 4 " 00 Medical Bndg Branch Miscellaneo 2020-0 Yes [id number] [facility] -19 [place] ity of Supply Misc 00:00: valve [place] 00 bags, 500 Medical ml Branch syringe, 2020-0 Yes [id number] 1{syrin 1 Syringe [facility], 2-19 ge} 3 (three) ity of non-sterile 00:00: times [place] (MONOJECT 00 daily. Medical ENFIT Branch SYRINGE) 35 mL Syrg nut.tx.impa 2020-0 Yes [id number] 1000mL 1,000 mL [facility] ired renal 2-19 by PEG ity of fxn,soy 00:00: Tube route [place] (NOVASOURCE 00 daily. Medica l RENAL 2 Method of Branch STNA) 0.09 feeding is gram- 2 pump, 4 kcal/mL cans per Liqd day, patient to titrate rate of administra tion, 80mL/hr into the Jejunal port of Jadiel GJ tube Miscellaneo 2020-0 Yes [id number] 4 straight [facility] 219 12" G ity of Supply Misc 00:00: bolus [place] Medical extensions Branch Miscellaneo 2019-0 Yes [id number] 4 right [facility] 01-02 angle 12" ity of Supply Misc 00:00: J feed [place] 00 extensions Medical Branch Gauze 2020-0 Yes [id number] Use as Unive rs Bandage 2-19 directed ity of (GAUZE PAD) 00:00: [place] 4 X 4 " 00 Medical Bndg Branch Miscellaneo 0 [id number] [place] ity of Supply Misc 00:00: valve bags, 500 Medical ml Branch syringe, 0 Yes [id number] 1{syrin 1 Syringe [facility]} 3 (three) ity of non-sterile 00:00: times [place] (MONOJECT 00 daily. Medical ENFIT Branch SYRINGE) 35 mL Syrg nut.tx.impa 0 Yes [id number] 1000mL 1,000 mL [facility] ired renal 2-19 by PEG ity of fxn,soy 00:00: Tube route [place] (NOVASOURCE 00 daily. Medica l RENAL 2 Method of Branch STAN) 0.09 feeding is gram- 2 pump, 4 kcal/mL cans per Liqd day, patient to titrate rate of administra tion, 80mL/hr into the Jejunal port of Jadiel GJ tube Miscellaneo 2019-0 Yes [id number] 4 straight [facility] 2 12" G ity of Supply Misc 00:00: bolus [place] Medical extensions Branch Miscellaneo 2019-0 Yes [id number] 4 right [facility] 01-02 angle 12" ity of Supply Misc 00:00: J feed [place] 00 extensions Medical Branch Gauze 2019-0 Yes [id number] Use as Unive rs Bandage 2-19 directed ity of (GAUZE PAD) 00:00: [place] 4 X 4 " 00 Medical Bndg Branch Miscellaneo 2020-0 [id number] [place] ity of Supply Misc 00:00: valve [place] 00 bags, 500 Medical ml Branch syringe, 2020-0 Yes [id number] 1{syrin 1 Syringe [facility]NFit, 2-19 ge} 3 (three) ity of non-sterile 00:00: times [place] (MONOJECT 00 daily. Medical ENFIT Branch SYRINGE) 35 mL Syrg nut.tx.impa 2020-0 Yes [id number] 1000mL 1,000 mL [facility] ired renal 2-19 by PEG ity of fxn,soy 00:00: Tube route [place] (NOVASOURCE 00 daily. Medica l RENAL 2 Method of Branch STAN) 0.09 feeding is gram- 2 pump, 4 kcal/mL cans per Liqd day, patient to titrate rate of administra tion, 80mL/hr into the Jejunal port of Jadiel GJ tube Miscellaneo 2020-0 Yes [id number] 4 straight [facility] 01-02 12" G ity of Supply Misc 00:00: bolus [place] 00 Ze Medical extensions Branch Miscellaneo 2020-0 Yes [id number] 4 right [facility] 01-02 angle 12" ity of Supply Misc 00:00: J feed [place] 00 extensions Medical Branch Gauze 2020-0 Yes [id number] Use as Unive rs Bandage 01-02 directed ity of (GAUZE PAD) 00:00: [place] 4 X 4 " 00 Medical Bndg Branch Miscellaneo 2020-0 Yes [id number] [facility] 19 [place] ity of Supply Misc 00:00: valve [place] 00 bags, 500 Medical ml Branch syringe, 2020-0 Yes [id number] 1{syrin 1 Syringe [facility] ENFit, 2-19 ge} 3 (three) ity of non-sterile 00:00: times [place] (MONOJECT 00 daily. Medical ENFIT Branch SYRINGE) 35 mL Syrg nut.tx.impa 2020-0 Yes [id number] 1000mL 1,000 mL [facility] ired renal 2-19 by PEG ity of fxn,soy 00:00: Tube route [place] (NOVASOURCE 00 daily. Medica l RENAL 2 Method of Branch STAN) 0.09 feeding is gram- 2 pump, 4 kcal/mL cans per Liqd day, patient to titrate rate of administra tion, 80mL/hr into the Jejunal port of Jadiel GJ tube Miscellaneo 2020-0 Yes [id number] 4 straight [facility] 2-19 12" G ity of Supply Misc 00:00: bolus [place] Medical extensions Branch Miscellaneo 2020-0 Yes [id number] 4 right [facility] 01-02 angle 12" ity of Supply Misc 00:00: J feed [place] 00 extensions Medical Branch Gauze 2020-0 Yes [id number] Use as Unive rs Bandage 2-19 directed ity of (GAUZE PAD) 00:00: [place] 4 X 4 " 00 Medical Bndg Branch Miscellaneo 2019-0 [id number] [place] ity of Supply Misc 00:00: valve bags, 500 Medical ml Branch syringe, 0 Yes [id number] 1{syrin 1 Syringe [facility] ENFit, 219 ge} 3 (three) ity of non-sterile 00:00: times [place] (MONOJECT 00 daily. Medical ENFIT Branch SYRINGE) 35 mL Syrg nut.tx.impa 0 Yes [id number] 1000mL 1,000 mL [facility] ired renal 2-19 by PEG ity of fxn,soy 00:00: Tube route [place] (NOVASOURCE 00 daily. Medica l RENAL 2 Method of Branch STAN) 0.09 feeding is gram- 2 pump, 4 kcal/mL cans per Liqd day, patient to titrate rate of administra tion, 80mL/hr into the Jejunal port of Jadiel GJ tube Miscellaneo 2020-0 Yes [id number] 4 straight [facility] 219 12" G ity of Supply Misc 00:00: bolus [place] Medical extensions Branch Miscellaneo 2020-0 Yes [id number] 4 right [facility] 219 angle 12" ity of Supply Misc 00:00: J feed [place] 00 extensions Medical Branch Gauze 2020-0 Yes [id number] Use as Unive rs Bandage 2-19 directed ity of (GAUZE PAD) 00:00: [place] 4 X 4 " 00 Medical Bndg Branch Miscellaneo 2020-0 [id number] [facility] [place] ity of Supply Misc 00:00: valve [place] 00 bags, 500 Medical ml Branch syringe, 2020-0 Yes [id number] 1{syrin 1 Syringe [facility] ENFit, 2-19 ge} 3 (three) ity of non-sterile 00:00: times [place] (MONOJECT 00 daily. Medical ENFIT Branch SYRINGE) 35 mL Syrg nut.tx.impa 2020-0 Yes [id number] 1000mL 1,000 mL [facility] ired renal 2-19 by PEG ity of fxn,soy 00:00: Tube route [place] (NOVASOURCE 00 daily. Medica l RENAL 2 Method of Branch STAN) 0.09 feeding is gram- 2 pump, 4 kcal/mL cans per Liqd day, patient to titrate rate of administra tion, 80mL/hr into the Jejunal port of Jadiel GJ tube Miscellaneo 2020-0 Yes [id number] 4 straight [facility] 01-02 12" G ity of Supply Misc 00:00: bolus [place] 00 Ze Medical extensions Branch Miscellaneo 2020-0 Yes [id number] 4 right [facility] 01-02 angle 12" ity of Supply Misc 00:00: J feed [place] 00 extensions Medical Branch Gauze 2020-0 Yes [id number] Use as Unive rs Bandage 01-02 directed ity of (GAUZE PAD) 00:00: [place] 4 X 4 " 00 Medical Bndg Branch Miscellaneo 2020-0 Yes [id number] [facility] 01-02 [place] ity of Supply Misc 00:00: valve [place] 00 bags, 500 Medical ml Branch syringe, 2020-0 Yes [id number] 1{syrin 1 Syringe [facility] ENFit, 2-19 ge} 3 (three) ity of non-sterile 00:00: times [place] (MONOJECT 00 daily. Medical ENFIT Branch SYRINGE) 35 mL Syrg nut.tx.impa 2020-0 Yes [id number] 1000mL 1,000 mL [facility] ired renal 2-19 by PEG ity of fxn,soy 00:00: Tube route [place] (NOVASOURCE 00 daily. Medica l RENAL 2 Method of Branch STAN) 0.09 feeding is gram- 2 pump, 4 kcal/mL cans per Liqd day, patient to titrate rate of administra tion, 80mL/hr into the Jejunal port of Jadiel GJ tube Miscellaneo 2020-0 Yes [id number] 4 straight [facility] 2-19 12" G ity of Supply Misc 00:00: bolus Ze Medical extensions Branch Miscellaneo 2020-0 Yes [id number] 4 right [facility] 01-02 angle 12" ity of Supply Misc 00:00: J feed [place] 00 extensions Medical Branch Gauze 2020-0 Yes [id number] Use as Unive rs Bandage 2-19 directed ity of (GAUZE PAD) 00:00: [place] 4 X 4 " 00 Medical Bndg Branch Miscellaneo 2019-0 Yes [id number] [facility] 01-02 [place] ity of Supply Misc 00:00: valve bags, 500 Medical ml Branch syringe, 0 Yes [id number] 1{syrin 1 Syringe [facility] ENFit, 2-19 ge} 3 (three) ity of non-sterile 00:00: times [place] (MONOJECT 00 daily. Medical ENFIT Branch SYRINGE) 35 mL Syrg nut.tx.impa 0 Yes [id number] 1000mL 1,000 mL [facility] ired renal 2-19 by PEG ity of fxn,soy 00:00: Tube route [place] (NOVASOURCE 00 daily. Medica l RENAL 2 Method of Branch STAN) 0.09 feeding is gram- 2 pump, 4 kcal/mL cans per Liqd day, patient to titrate rate of administra tion, 80mL/hr into the Jejunal port of Jadiel GJ tube Miscellaneo 2020-0 Yes [id number] 4 [facility] 2-19 12" G ity of Supply Misc 00:00: bolus Ze Medical extensions Branch Miscellaneo 2020-0 Yes [id number] 4 right [facility] 2-19 angle 12" ity of Supply Misc 00:00: [place] 00 extensions Medical Branch Gauze 2020-0 Yes [id number] Use as Unive rs Bandage 2-19 directed ity of (GAUZE PAD) 00:00: [place] 4 X 4 " 00 Medical Bndg Branch Miscellaneo 2020-0 [id number] [place] ity of Supply Misc 00:00: valve [place] 00 bags, 500 Medical ml Branch syringe, 2020-0 Yes [id number] 1{syrin 1 Syringe [facility] ENFit, 2-19 ge} 3 (three) ity of non-sterile 00:00: times [place] (MONOJECT 00 daily. Medical ENFIT Branch SYRINGE) 35 mL Syrg nut.tx.impa 2020-0 Yes [id number] 1000mL 1,000 mL [facility] ired renal 2-19 by PEG ity of fxn,soy 00:00: Tube route [place] (NOVASOURCE 00 daily. Medica l RENAL 2 Method of Branch STAN) 0.09 feeding is gram- 2 pump, 4 kcal/mL cans per Liqd day, patient to titrate rate of administra tion, 80mL/hr into the Jejunal port of Jadiel GJ tube Miscellaneo 2020-0 Yes [id number] 4 straight [facility] 01-02 12" G ity of Supply Misc 00:00: bolus [place] 00 Ze Medical extensions Branch Miscellaneo 2020-0 Yes [id number] 4 right [facility] 01-02 angle 12" ity of Supply Misc 00:00: [place] 00 extensions Medical Branch Gauze 2020-0 Yes [id number] Use as Unive rs Bandage 01-02 directed ity of (GAUZE PAD) 00:00: [place] 4 X 4 " 00 Medical Bndg Branch Miscellaneo 2020-0 Yes [id number] [facility] 01-02 [place] ity of Supply Misc 00:00: valve [place] 00 bags, 500 Medical ml Branch syringe, 2020-0 Yes [id number] 1{syrin 1 Syringe [facility] ENFit, 2-19 ge} 3 (three) ity of non-sterile 00:00: times [place] (MONOJECT 00 daily. Medical ENFIT Branch SYRINGE) 35 mL Syrg nut.tx.impa 2020-0 Yes [id number] 1000mL 1,000 mL [facility] 2-19 by PEG ity of fxn,[place] 00:00: [place] (NOVASOURCE 00 daily. Medica l RENAL 2 Method of Branch STAN) 0.09 feeding is gram- 2 pump, 4 kcal/mL cans per Liqd day, patient to titrate rate of administra tion, 80mL/hr into the Jejunal port of Jadiel GJ tube Miscellaneo 2020-0 Yes [id number] 4 straight [facility] 2-19 12" G ity of Supply Misc 00:00: bolus Ze Medical extensions Branch Miscellaneo 2019-0 Yes [id number] 4 right [facility] 219 angle 12" ity of Supply Misc 00:00: [place] 00 extensions [facility] Gauze 2020-0 Yes [id number] Use as Unive rs Bandage 2-19 directed ity of (GAUZE PAD) 00:00: [place] 4 X 4 " 00 Medical Bndg Branch [facility]iscellaneo 2019-0 [id number] [place] ity of Supply Misc 00:00: valve bags, 500 Medical ml Branch syringe, 0 Yes [id number] 1{syrin 1 Syringe [facility], 2-19 ge} 3 (three) ity of non-sterile 00:00: times [place] (MONOJECT 00 daily. Medical ENFIT Branch SYRINGE) 35 mL Syrg nut.tx.impa 0 Yes [id number] 1000mL 1,000 mL [facility] 2-19 by PEG ity of fxn,soy 00:00: [place] (NOVASOURCE 00 daily. Medica l RENAL 2 Method of Branch STAN) 0.09 feeding is gram- 2 pump, 4 kcal/mL cans per Liqd day, patient to titrate rate of administra tion, 80mL/hr into the Jejunal port of Jadiel GJ tube Miscellaneo 2020-0 Yes [id number] 4 [facility] 2-19 12" G ity of Supply Misc 00:00: bolus Ze Medical extensions Branch Miscellaneo 2020-0 Yes [id number] 4 right [facility] 2-19 angle 12" ity of Supply Misc 00:00: [place] 00 extensions [facility] Gauze 2020-0 Yes [id number] Use as Unive rs Bandage 2-19 directed ity of (GAUZE PAD) 00:00: [place] 4 X 4 " 00 Medical Bndg Branch Miscellaneo 2020-0 Yes [id number] enfit [facility] 01-02 [place] ity of Supply Misc 00:00: valve [place] 00 bags, 500 Medical ml Branch syringe, 2020-0 Yes [id number] 1{syrin 1 Syringe [facility], 2-19 ge} 3 (three) ity of non-sterile 00:00: times [place] (MONOJECT 00 daily. Medical ENFIT Branch SYRINGE) 35 mL Syrg nut.tx.impa 2020-0 Yes [id number] 1000mL 1,000 mL [facility] 2-19 by PEG ity of fxn,soy 00:00: [place]ube [place] (NOVASOURCE 00 daily. Medica l RENAL 2 Method of Branch STAN) 0.09 feeding is gram- 2 pump, 4 kcal/mL cans per Liqd day, patient to titrate rate of administra tion, 80mL/hr into the Jejunal port of Jadiel GJ tube Miscellaneo 2020-0 Yes [id number] 4 straight [facility] 01-02 12" G ity of Supply Misc 00:00: bolus [place] 00 Ze Medical extensions Branch Miscellaneo 2020-0 Yes [id number] 4 right [facility] 01-02 angle 12" ity of Supply Misc 00:00: [place] feed [place] 00 extensions [facility] Branch Gauze 2020-0 Yes [id number] Use as Unive rs Bandage 01-02 directed ity of (GAUZE PAD) 00:00: [place] 4 X 4 " 00 Medical Bndg Branch Miscellaneo 2020-0 Yes [id number] [facility] 19 [place] ity of Supply Misc 00:00: valve [place] 00 bags, 500 Medical ml Branch syringe, 2020-0 Yes [id number] 1{syrin 1 Syringe [facility], 2-19 ge} 3 (three) ity of non-sterile 00:00: times [place] (MONOJECT 00 daily. Medical ENFIT Branch SYRINGE) 35 mL Syrg nut.tx.impa 2020-0 Yes [id number] 1000mL 1,000 mL [facility] 2-19 by PEG ity of fxn,soy 00:00: [place]ube route [place] (NOVASOURCE 00 daily. Medica l RENAL 2 Method of Branch STAN) 0.09 feeding is gram- 2 pump, 4 kcal/mL cans per Liqd day, patient to titrate rate of administra tion, 80mL/hr into the Jejunal port of Jadiel GJ tube Miscellaneo 2020-0 Yes [id number] 4 straight [facility] 219 12" G ity of Supply Misc 00:00: bolus [place] Medical extensions Branch Miscellaneo 2019-0 Yes [id number] 4 right [facility] 01-02 angle 12" ity of Supply Misc 00:00: [place] feed [place] 00 extensions Medical Branch Gauze 2019-0 Yes [id number] Use as Unive rs Bandage 2-19 directed ity of (GAUZE PAD) 00:00: [place] 4 X 4 " 00 Medical Bndg Branch Miscellaneo 0 [id number] [place] ity of Supply Misc 00:00: valve bags, 500 Medical ml Branch syringe, Yes [id number] 1{syrin 1 Syringe [facility], 219 ge} 3 (three) ity of non-sterile 00:00: times [place] (MONOJECT 00 daily. Medical ENFIT Branch SYRINGE) 35 mL Syrg nut.tx.impa Yes [id number] 1000mL 1,000 mL [facility] 2-19 by PEG ity of fxn,soy 00:00: [place]ube route [place] (NOVASOURCE 00 daily. Medica l RENAL 2 Method of Branch STAN) 0.09 feeding is gram- 2 pump, 4 kcal/mL cans per Liqd day, patient to titrate rate of administra tion, 80mL/hr into the Jejunal port of Jadiel GJ tube Miscellaneo 2019-0 Yes [id number] 4 [facility] 219 12" G ity of Supply Misc 00:00: bolus [place] Medical extensions Branch Miscellaneo 2019-0 Yes [id number] 4 right [facility] 01-02 angle 12" ity of Supply Misc 00:00: [place] 00 extensions Medical Branch Gauze 2019-0 Yes [id number] Use as Unive rs Bandage 2-19 directed ity of (GAUZE PAD) 00:00: [place] 4 X 4 " 00 Medical Bndg Branch Miscellaneo 2020-0 Yes [id number] enfit [facility] 01-02 [place] ity of Supply Misc 00:00: valve [place] 00 bags, 500 Medical ml Branch syringe, 2020-0 Yes [id number] 1{syrin 1 Syringe [facility], 2-19 ge} 3 (three) ity of non-sterile 00:00: times [place] (MONOJECT 00 daily. Medical ENFIT Branch SYRINGE) 35 mL Syrg nut.tx.impa 2020-0 Yes [id number] 1000mL 1,000 mL [facility] 2-19 by PEG ity of fxn,soy 00:00: Tube route [place] (NOVASOURCE 00 daily. Medica l RENAL 2 Method of Branch STAN) 0.09 feeding is gram- 2 pump, 4 kcal/mL cans per Liqd day, patient to titrate rate of administra tion, 80mL/hr into the Jejunal port of Jadiel GJ tube Miscellaneo 2020-0 Yes [id number] 4 straight [facility] 01-02 12" G ity of Supply Misc 00:00: bolus [place] 00 Ze Medical extensions Branch Miscellaneo 2020-0 Yes [id number] 4 right [facility] 01-02 angle 12" ity of Supply Misc 00:00: [place] feed [place] 00 extensions Medical Branch Gauze 2020-0 Yes [id number] Use as Unive rs Bandage 01-02 directed ity of (GAUZE PAD) 00:00: [place] 4 X 4 " 00 Medical Bndg Branch Miscellaneo 2020-0 Yes [id number] [facility] 19 [place] ity of Supply Misc 00:00: valve [place] 00 bags, 500 Medical ml Branch syringe, 2019-0 Yes [id number] 1{syrin 1 Syringe [facility], 2-19 ge} 3 (three) ity of non-sterile 00:00: times [place] (MONOJECT 00 daily. Medical ENFIT Branch SYRINGE) 35 mL Syrg nut.tx.impa 2020-0 Yes [id number] 1000mL 1,000 mL [facility] 2-19 by PEG ity of fxn,soy 00:00: Tube route [place] (NOVASOURCE 00 daily. Medica l RENAL 2 Method of Branch STAN) 0.09 feeding is gram- 2 pump, 4 kcal/mL cans per Liqd day, patient to titrate rate of administra tion, 80mL/hr into the Jejunal port of Jadiel GJ tube Miscellaneo 2020-0 Yes [id number] 4 straight [facility] 2-19 12" G ity of Supply Misc 00:00: bolus [place] Medical extensions Branch Miscellaneo 2019-0 Yes [id number] 4 right [facility] 19 angle 12" ity of Supply Misc 00:00: J feed [place] 00 extensions Medical Branch Gauze 2019-0 Yes [id number] Use as Unive rs Bandage 2-19 directed ity of (GAUZE PAD) 00:00: [place] 4 X 4 " 00 Medical Bndg Branch Miscellaneo 0 [id number] [place] ity of Supply Misc 00:00: valve bags, 500 Medical ml Branch syringe, Yes [id number] 1{syrin 1 Syringe [facility], 2-19 ge} 3 (three) ity of non-sterile 00:00: times [place] (MONOJECT 00 daily. Medical ENFIT Branch SYRINGE) 35 mL Syrg nut.tx.impa Yes [id number] 1000mL 1,000 mL [facility] 2-19 by PEG ity of fxn,soy 00:00: [place]ube route [place] (NOVASOURCE 00 daily. Medica l RENAL 2 Method of Branch STAN) 0.09 feeding is gram- 2 pump, 4 kcal/mL cans per Liqd day, patient to titrate rate of administra tion, 80mL/hr into the Jejunal port of Jadiel GJ tube Miscellaneo 2019-0 Yes [id number] 4 straight [facility] 2-19 12" G ity of Supply Misc 00:00: bolus [place] Medical extensions Branch Miscellaneo 2019-0 Yes [id number] 4 right [facility] 2-19 angle 12" ity of Supply Misc 00:00: J feed [place] 00 extensions Medical Branch Gauze 2020-0 Yes [id number] Use as Unive rs Bandage 2-19 directed ity of (GAUZE PAD) 00:00: [place] 4 X 4 " 00 Medical Bndg Branch Miscellaneo 2020-0 Yes [id number] enfit [facility] 01-02 [place] ity of Supply Misc 00:00: valve [place] 00 bags, 500 Medical ml Branch syringe, 2019-0 Yes [id number] 1{syrin 1 Syringe [facility], 2-19 ge} 3 (three) ity of non-sterile 00:00: times [place] (MONOJECT 00 daily. Medical ENFIT Branch SYRINGE) 35 mL Syrg nut.tx.impa 2020-0 Yes [id number] 1000mL 1,000 mL [facility] 2-19 by PEG ity of fxn,soy 00:00: Tube route [place] (NOVASOURCE 00 daily. Medica l RENAL 2 Method of Branch STAN) 0.09 feeding is gram- 2 pump, 4 kcal/mL cans per Liqd day, patient to titrate rate of administra tion, 80mL/hr into the Jejunal port of Jadiel GJ tube Miscellaneo 2020-0 Yes [id number] 4 straight [facility] 01-02 12" G ity of Supply Misc 00:00: bolus [place] 00 Ze Medical extensions Branch Miscellaneo 2020-0 Yes [id number] 4 right [facility] 01-02 angle 12" ity of Supply Misc 00:00: J feed [place] 00 extensions Medical Branch Gauze 2020-0 Yes [id number] Use as Unive rs Bandage 01-02 directed ity of (GAUZE PAD) 00:00: [place] 4 X 4 " 00 Medical Bndg Branch Miscellaneo 2020-0 Yes [id number] [facility] 01-02 [place] ity of Supply Misc 00:00: valve [place] 00 bags, 500 Medical ml Branch syringe, 2019-0 Yes [id number] 1{syrin 1 Syringe [facility], 2-19 ge} 3 (three) ity of non-sterile 00:00: times [place] (MONOJECT 00 daily. Medical ENFIT Branch SYRINGE) 35 mL Syrg nut.tx.impa 2020-0 Yes [id number] 1000mL 1,000 mL [facility] 2-19 by PEG ity of fxn,soy 00:00: Tube route [place] (NOVASOURCE 00 daily. Medica l RENAL 2 Method of Branch STAN) 0.09 feeding is gram- 2 pump, 4 kcal/mL cans per Liqd day, patient to titrate rate of administra tion, 80mL/hr into the Jejunal port of Jadiel GJ tube Miscellaneo 2020-0 Yes [id number] 4 straight [facility] 2-19 12" G ity of Supply Misc 00:00: bolus Ze Medical extensions Branch Miscellaneo 2019-0 Yes [id number] 4 right [facility] 2-19 angle 12" ity of Supply Misc 00:00: J feed [place] 00 extensions Medical Branch Gauze 2020-0 Yes [id number] Use as Unive rs Bandage 2-19 directed ity of (GAUZE PAD) 00:00: [place] 4 X 4 " 00 Medical Bndg Branch Miscellaneo 2019-0 [id number] [place] ity of Supply Misc 00:00: valve bags, 500 Medical ml Branch syringe, 0 Yes [id number] 1{syrin 1 Syringe [facility], 2-19 ge} 3 (three) ity of non-sterile 00:00: times [place] (MONOJECT 00 daily. Medical ENFIT Branch SYRINGE) 35 mL Syrg nut.tx.impa 0 Yes [id number] 1000mL 1,000 mL [facility] 2-19 by PEG ity of fxn,soy 00:00: Tube route [place] (NOVASOURCE 00 daily. Medica l RENAL 2 Method of Branch STAN) 0.09 feeding is gram- 2 pump, 4 kcal/mL cans per Liqd day, patient to titrate rate of administra tion, 80mL/hr into the Jejunal port of Jadiel GJ tube Miscellaneo 2020-0 Yes [id number] 4 [facility] 2-19 12" G ity of Supply Misc 00:00: bolus Ze Medical extensions Branch Miscellaneo 2020-0 Yes [id number] 4 right [facility] 2-19 angle 12" ity of Supply Misc 00:00: J feed [place] 00 extensions Medical Branch Gauze 2020-0 Yes [id number] Use as Unive rs Bandage 2-19 directed ity of (GAUZE PAD) 00:00: [place] 4 X 4 " 00 Medical Bndg Branch Miscellaneo 2020-0 [id number] [place] ity of Supply Misc 00:00: valve [place] 00 bags, 500 Medical ml Branch syringe, 2019-0 Yes [id number] 1{syrin 1 Syringe [facility], 2-19 ge} 3 (three) ity of non-sterile 00:00: times [place] (MONOJECT 00 daily. Medical ENFIT Branch SYRINGE) 35 mL Syrg nut.tx.impa 2019-0 Yes [id number] 1000mL 1,000 mL [facility] 2-19 by PEG ity of fxn,soy 00:00: Tube route [place] (NOVASOURCE 00 daily. Medica l RENAL 2 Method of Branch STAN) 0.09 feeding is gram- 2 pump, 4 kcal/mL cans per Liqd day, patient to titrate rate of administra tion, 80mL/hr into the Jejunal port of Jadiel GJ tube Miscellaneo 2020-0 Yes [id number] 4 straight [facility] 01-02 12" G ity of Supply Misc 00:00: bolus [place] 00 Ze Medical extensions Branch Miscellaneo 2020-0 Yes [id number] 4 right [facility] 01-02 angle 12" ity of Supply Misc 00:00: J feed [place] 00 extensions Medical Branch Gauze 2020-0 Yes [id number] Use as Unive rs Bandage 2-19 directed ity of (GAUZE PAD) 00:00: [place] 4 X 4 " 00 Medical Bndg Branch Miscellaneo 2020-0 Yes [id number] [facility] 01-02 [place] ity of Supply Misc 00:00: valve [place] 00 bags, 500 Medical ml Branch syringe, 2019-0 Yes [id number] 1{syrin 1 Syringe [facility], 2-19 ge} 3 (three) ity of non-sterile 00:00: times [place] (MONOJECT 00 daily. Medical ENFIT Branch SYRINGE) 35 mL Syrg nut.tx.impa 2020-0 Yes [id number] 1000mL 1,000 mL [facility] 2-19 by PEG ity of fxn,soy 00:00: Tube route [place] (NOVASOURCE 00 daily. Medica l RENAL 2 Method of Branch STAN) 0.09 feeding is gram- 2 pump, 4 kcal/mL cans per Liqd day, patient to titrate rate of administra tion, 80mL/hr into the Jejunal port of Jadiel GJ tube Miscellaneo 2020-0 Yes [id number] 4 straight [facility] 2-19 12" G ity of Supply Misc 00:00: bolus Ze Medical extensions Branch Miscellaneo 2019-0 Yes [id number] 4 right [facility] 2-19 angle 12" ity of Supply Misc 00:00: J feed [place] 00 extensions Medical Branch Gauze 2020-0 Yes [id number] Use as Unive rs Bandage 2-19 directed ity of (GAUZE PAD) 00:00: [place] 4 X 4 " 00 Medical Bndg Branch Miscellaneo 2019-0 [id number] [place] ity of Supply Misc 00:00: valve 00 bags, 500 Medical ml Branch syringe, 0 Yes [id number] 1{syrin 1 Syringe [facility], 2-19 ge} 3 (three) ity of non-sterile 00:00: times [place] (MONOJECT 00 daily. Medical ENFIT Branch SYRINGE) 35 mL Syrg nut.tx.impa 0 Yes [id number] 1000mL 1,000 mL [facility] 2-19 by PEG ity of fxn,soy 00:00: Tube route [place] (NOVASOURCE 00 daily. Medica l RENAL 2 Method of Branch STAN) 0.09 feeding is gram- 2 pump, 4 kcal/mL cans per Liqd day, patient to titrate rate of administra tion, 80mL/hr into the Jejunal port of Jadiel GJ tube Miscellaneo 2020-0 Yes [id number] 4 [facility] 2-19 12" G ity of Supply Misc 00:00: bolus Ze Medical extensions Branch Miscellaneo 2020-0 Yes [id number] 4 right [facility] 2-19 angle 12" ity of Supply Misc 00:00: J feed [place] 00 extensions Medical Branch Gauze 2020-0 Yes [id number] Use as Unive rs Bandage 2-19 directed ity of (GAUZE PAD) 00:00: [place] 4 X 4 " 00 Medical Bndg Branch Miscellaneo 2020-0 Yes [id number] enfit [facility] 19 [place] ity of Supply Misc 00:00: valve [place] 00 bags, 500 Medical ml Branch syringe, 2020-0 Yes [id number] 1{syrin 1 Syringe [facility], 2-19 ge} 3 (three) ity of non-sterile 00:00: times [place] (MONOJECT 00 daily. Medical ENFIT Branch SYRINGE) 35 mL Syrg nut.tx.impa 2020-0 Yes [id number] 1000mL 1,000 mL [facility] 2-19 by PEG ity of fxn,soy 00:00: Tube route [place] (NOVASOURCE 00 daily. Medica l RENAL 2 Method of Branch STAN) 0.09 feeding is gram- 2 pump, 4 kcal/mL cans per Liqd day, patient to titrate rate of administra tion, 80mL/hr into the Jejunal port of Jadiel GJ tube Miscellaneo 2020-0 Yes [id number] 4 straight [facility] - 12" G ity of Supply Misc 00:00: bolus [place] 00 Ze Medical extensions Branch Miscellaneo 2020-0 Yes [id number] 4 right [facility] - angle 12" ity of Supply Misc 00:00: J feed [place] 00 extensions Medical Branch Gauze 2020-0 Yes [id number] Use as Unive rs Bandage 2-19 directed ity of (GAUZE PAD) 00:00: [place] 4 X 4 " 00 Medical Bndg Branch Miscellaneo 2020-0 Yes [id number] [facility] -19 [place] ity of Supply Misc 00:00: valve [place] 00 bags, 500 Medical ml Branch syringe, 2019-0 Yes [id number] 1{syrin 1 Syringe [facility], 2-19 ge} 3 (three) ity of non-sterile 00:00: times [place] (MONOJECT 00 daily. Medical ENFIT Branch SYRINGE) 35 mL Syrg nut.tx.impa 2020-0 Yes [id number] 1000mL 1,000 mL [facility] 2-19 by PEG ity of fxn,soy 00:00: Tube route [place] (NOVASOURCE 00 daily. Medica l RENAL 2 Method of Branch STAN) 0.09 feeding is gram- 2 pump, 4 kcal/mL cans per Liqd day, patient to titrate rate of administra tion, 80mL/hr into the Jejunal port of Jadiel GJ tube Miscellaneo 2020-0 Yes [id number] 4 straight [facility] 2-19 12" G ity of Supply Misc 00:00: bolus Ze Medical extensions Branch Miscellaneo 2020-0 Yes [id number] 4 right [facility] 2-19 angle 12" ity of Supply Misc 00:00: J feed [place] 00 extensions Medical Branch Gauze 2020-0 Yes [id number] Use as Unive rs Bandage 2-19 directed ity of (GAUZE PAD) 00:00: [place] 4 X 4 " 00 Medical Bndg Branch Miscellaneo 2019-0 Yes [id number] enfit [facility] 2-19 [place] ity of Supply Misc 00:00: valve 00 bags, 500 Medical ml Branch syringe, 0 Yes [id number] 1{syrin 1 Syringe [facility], 2-19 ge} 3 (three) ity of non-sterile 00:00: times [place] (MONOJECT 00 daily. Medical ENFIT Branch SYRINGE) 35 mL Syrg nut.tx.impa 0 Yes [id number] 1000mL 1,000 mL [facility] 2-19 by PEG ity of fxn,soy 00:00: Tube route [place] (NOVASOURCE 00 daily. Medica l RENAL 2 Method of Branch STAN) 0.09 feeding is gram- 2 pump, 4 kcal/mL cans per Liqd day, patient to titrate rate of administra tion, 80mL/hr into the Jejunal port of Jadiel GJ tube Miscellaneo 2020-0 Yes [id number] 4 straight [facility] 2-19 12" G ity of Supply Misc 00:00: bolus Ze Medical extensions Branch Miscellaneo 2020-0 Yes [id number] 4 right [facility] 2-19 angle 12" ity of Supply Misc 00:00: J feed [place] 00 extensions Medical Branch Gauze 2020-0 Yes [id number] Use as Unive rs Bandage 2-19 directed ity of (GAUZE PAD) 00:00: [place] 4 X 4 " 00 Medical Bndg Branch Miscellaneo 2020-0 Yes [id number] enfit [facility] 2-19 [place] ity of Supply Misc 00:00: valve [place] 00 bags, 500 Medical ml Branch syringe, 2020-0 Yes [id number] 1{syrin 1 Syringe [facility], 2-19 ge} 3 (three) ity of non-sterile 00:00: times [place] (MONOJECT 00 daily. Medical ENFIT Branch SYRINGE) 35 mL Syrg nut.tx.impa 2020-0 Yes [id number] 1000mL 1,000 mL [facility] 2-19 by PEG ity of fxn,soy 00:00: Tube route [place] (NOVASOURCE 00 daily. Medica l RENAL 2 Method of Branch STAN) 0.09 feeding is gram- 2 pump, 4 kcal/mL cans per Liqd day, patient to titrate rate of administra tion, 80mL/hr into the Jejunal port of Jadiel GJ tube Miscellaneo 2020-0 Yes [id number] 4 straight [facility] 2-19 12" G ity of Supply Misc 00:00: bolus [place] 00 Ze Medical extensions Branch Miscellaneo 2020-0 Yes [id number] 4 right [facility] 2-19 angle 12" ity of Supply Misc 00:00: J feed [place] 00 extensions Medical Branch Gauze 2020-0 Yes [id number] Use as Unive rs Bandage 2-19 directed ity of (GAUZE PAD) 00:00: [place] 4 X 4 " 00 Medical Bndg Branch Miscellaneo 2020-0 Yes [id number] [facility] 2-19 [place] ity of Supply Misc 00:00: valve [place] 00 bags, 500 Medical ml Branch syringe, 2019-0 Yes [id number] 1{syrin 1 Syringe [facility], 2-19 ge} 3 (three) ity of non-sterile 00:00: times [place] (MONOJECT 00 daily. Medical ENFIT Branch SYRINGE) 35 mL Syrg nut.tx.impa 2020-0 Yes [id number] 1000mL 1,000 mL [facility] 2-19 by PEG ity of fxn,soy 00:00: Tube route [place] (NOVASOURCE 00 daily. Medica l RENAL 2 Method of Branch STAN) 0.09 feeding is gram- 2 pump, 4 kcal/mL cans per Liqd day, patient to titrate rate of administra tion, 80mL/hr into the Jejunal port of Jadiel GJ tube Miscellaneo 2020-0 Yes [id number] 4 straight [facility] 2-19 12" G ity of Supply Misc 00:00: bolus Ze Medical extensions Branch Miscellaneo 2019-0 Yes [id number] 4 right [facility] 2-19 angle 12" ity of Supply Misc 00:00: J feed [place] 00 extensions Medical Branch Gauze 2019-0 Yes [id number] Use as Unive rs Bandage 2-19 directed ity of (GAUZE PAD) 00:00: [place] 4 X 4 " 00 Medical Bndg Branch Miscellaneo 2019-0 [id number] [place] ity of Supply Misc 00:00: [place] 00 bags, 500 Medical ml Branch syringe, 2019-0 Yes [id number] 1{syrin 1 Syringe [facility] E[facility]it, 2-19 ge} 3 (three) ity of non-sterile 00:00: times [place] (MONOJECT 00 daily. Medical ENFIT Branch SYRINGE) 35 mL Syrg nut.tx.impa 0 Yes [id number] 1000mL 1,000 mL [facility] 2-19 by PEG ity of fxn,soy 00:00: Tube route [place] (NOVASOURCE 00 daily. Medica l RENAL 2 Method of Branch STAN) 0.09 feeding is gram- 2 pump, 4 kcal/mL cans per Liqd day, patient to titrate rate of administra tion, 80mL/hr into the Jejunal port of Jadiel GJ tube Miscellaneo 2020-0 Yes [id number] 4 straight [facility] 2-19 12" G ity of Supply Misc 00:00: bolus Ze Medical extensions Branch Miscellaneo 2020-0 Yes [id number] 4 right [facility] 2-19 angle 12" ity of Supply Misc 00:00: J feed [place] 00 extensions Medical Branch Gauze 2019-0 Yes [id number] Use as Unive rs Bandage 2-19 directed ity of (GAUZE PAD) 00:00: [place] 4 X 4 " 00 Medical Bndg Branch Miscellaneo 2020-0 Yes [id number] enfit [facility] -19 [place] ity of Supply Misc 00:00: valve [place] 00 bags, 500 Medical ml Branch syringe, 2020-0 Yes [id number] 1{syrin 1 Syringe [facility] ENFit, 2-19 ge} 3 (three) ity of non-sterile 00:00: times [place] (MONOJECT 00 daily. Medical ENFIT Branch SYRINGE) 35 mL Syrg nut.tx.impa 2020-0 Yes [id number] 1000mL 1,000 mL [facility] 2-19 by PEG ity of fxn,soy 00:00: Tube route [place] (NOVASOURCE 00 daily. Medica l RENAL 2 Method of Branch STAN) 0.09 feeding is gram- 2 pump, 4 kcal/mL cans per Liqd day, patient to titrate rate of administra tion, 80mL/hr into the Jejunal port of Jadiel GJ tube Miscellaneo 2020-0 Yes [id number] 4 straight [facility] 2-19 12" G ity of Supply Misc 00:00: bolus [place] 00 Ze Medical extensions Branch Miscellaneo 2020-0 Yes [id number] 4 right [facility] 2-19 angle 12" ity of Supply Misc 00:00: J feed [place] 00 extensions Medical Branch Gauze 2020-0 Yes [id number] Use as Unive rs Bandage 2-19 directed ity of (GAUZE PAD) 00:00: [place] 4 X 4 " 00 Medical Bndg Branch Miscellaneo 2020-0 Yes [id number] [facility] 2-19 [place] ity of Supply Misc 00:00: valve [place] 00 bags, 500 Medical ml Branch syringe, 2019-0 Yes [id number] 1{syrin 1 Syringe [facility] E[facility], 2-19 ge} 3 (three) ity of non-sterile 00:00: times [place] (MONOJECT 00 daily. Medical ENFIT Branch SYRINGE) 35 mL Syrg nut.tx.impa 2020-0 Yes [id number] 1000mL 1,000 mL [facility] 2-19 by PEG ity of fxn,soy 00:00: Tube route [place] (NOVASOURCE 00 daily. Medica l RENAL 2 Method of Branch STAN) 0.09 feeding is gram- 2 pump, 4 kcal/mL cans per Liqd day, patient to titrate rate of administra tion, 80mL/hr into the Jejunal port of Jadiel GJ tube Miscellaneo 2020-0 Yes [id number] 4 straight [facility] 2-19 12" G ity of Supply Misc 00:00: bolus Ze Medical extensions Branch Miscellaneo 2019-0 Yes [id number] 4 right [facility] 2-19 angle 12" ity of Supply Misc 00:00: [place] 00 extensions [facility] Gauze 2019-0 Yes [id number] Use as Unive rs Bandage 219 directed ity of (GAUZE PAD) 00:00: [place] 4 X 4 " 00 Medical Bndg Branch Miscellaneo 2019-0 Yes [id number] [facility] 19 [place] ity of Supply Misc 00:00: valve 00 bags, 500 Medical ml Branch syringe, 2019-0 Yes [id number] 1{syrin 1 Syringe [facility] ENFit, 2-19 ge} 3 (three) ity of non-sterile 00:00: times [place] (MONOJECT 00 daily. Medical ENFIT Branch SYRINGE) 35 mL Syrg nut.tx.impa 0 Yes [id number] 1000mL 1,000 mL [facility] 2-19 by PEG ity of fxn,soy 00:00: Tube route [place] (NOVASOURCE 00 daily. Medica l RENAL 2 Method of Branch STAN) 0.09 feeding is gram- 2 pump, 4 kcal/mL cans per Liqd day, patient to titrate rate of administra tion, 80mL/hr into the Jejunal port of Jadiel GJ tube Miscellaneo 2020-0 Yes [id number] 4 [facility] 2-19 12" G ity of Supply Misc 00:00: bolus [place] Medical extensions Branch Miscellaneo 2020-0 Yes [id number] 4 right [facility] 2-19 angle 12" ity of Supply Misc 00:[place] Gauze 2019-0 Yes [id number] Use as Unive rs Bandage 2-19 directed ity of (GAUZE PAD) 00:00: [place] 4 X 4 " 00 Medical Bndg Branch Miscellaneo 2020-0 Yes [id number] enfit [facility] -19 [place] ity of Supply Misc 00:00: valve [place] 00 bags, 500 Medical ml Branch syringe, 2020-0 Yes [id number] 1{syrin 1 Syringe [facility], 2-19 ge} 3 (three) ity of non-sterile 00:00: times [place] (MONOJECT 00 daily. Medical ENFIT Branch SYRINGE) 35 mL Syrg nut.tx.impa 2020-0 Yes [id number] 1000mL 1,000 mL [facility] 2-19 by PEG ity of fxn,soy 00:00: [place]ube route [place] (NOVASOURCE 00 daily. Medica l RENAL 2 Method of Branch STAN) 0.09 feeding is gram- 2 pump, 4 kcal/mL cans per Liqd day, patient to titrate rate of administra tion, 80mL/hr into the Jejunal port of Jadiel GJ tube Miscellaneo 2020-0 Yes [id number] 4 straight [facility] 2- 12" G ity of Supply Misc 00:00: bolus [place] 00 Ze Medical extensions Branch Miscellaneo 2020-0 Yes [id number] 4 right [facility] - angle 12" ity of Supply Misc 00:00: [place] 00 extensions [place] [facility] Gauze 2020-0 Yes [id number] Use as Unive rs Bandage 2-19 directed ity of (GAUZE PAD) 00:00: [place] 4 X 4 " 00 Medical Bndg Branch Miscellaneo 2020-0 [id number] [place] ity of Supply Misc 00:00: valve [place] 00 bags, 500 Medical ml Branch syringe, 2019-0 Yes [id number] 1{syrin 1 Syringe [facility], 2-19 ge} 3 (three) ity of non-sterile 00:00: times [place] (MONOJECT 00 daily. Medical ENFIT Branch SYRINGE) 35 mL Syrg nut.tx.impa 2020-0 Yes [id number] 1000mL 1,000 mL [facility] 2-19 by PEG ity of fxn,soy 00:00: [place]ube route [place] (NOVASOURCE 00 daily. Medica l RENAL 2 Method of Branch STAN) 0.09 feeding is gram- 2 pump, 4 kcal/mL cans per Liqd day, patient to titrate rate of administra tion, 80mL/hr into the Jejunal port of Jadiel GJ tube Miscellaneo 2020-0 Yes [id number] 4 straight [facility] 219 12" G ity of Supply Misc 00:00: bolus [place] Medical extensions Branch Miscellaneo 2020-0 Yes [id number] 4 right [facility] 19 angle 12" ity of Supply Misc 00:00: [place] 00 extensions [facility] Branch Gauze 2020-0 Yes [id number] Use as Unive rs Bandage 19 directed ity of (GAUZE PAD) 00:00: [place] 4 X 4 " 00 Medical Bndg Branch Miscellaneo 2019-0 Yes [id number] [facility] 01-02 [place] ity of Supply Misc 00:00: valve [place] 00 bags, 500 Medical ml Branch syringe, 2019-0 Yes [id number] 1{syrin 1 Syringe [facility], 2-19 ge} 3 (three) ity of non-sterile 00:00: times [place] (MONOJECT 00 daily. Medical ENFIT Branch SYRINGE) 35 mL Syrg nut.tx.impa 0 Yes [id number] 1000mL 1,000 mL [facility] 2-19 by PEG ity of fxn,soy 00:00: Tube route [place] (NOVASOURCE 00 daily. Medica l RENAL 2 Method of Branch STAN) 0.09 feeding is gram- 2 pump, 4 kcal/mL cans per Liqd day, patient to titrate rate of administra tion, 80mL/hr into the Jejunal port of Jadiel GJ tube Miscellaneo 2020-0 Yes [id number] 4 [facility] 219 12" G ity of Supply Misc 00:00: bolus [place] Medical extensions Branch Miscellaneo 2020-0 Yes [id number] 4 right [facility] 2-19 angle 12" ity of Supply Misc 00:00: [place] 00 extensions [facility] Branch Gauze 2019-0 Yes [id number] Use as Unive rs Bandage 2-19 directed ity of (GAUZE PAD) 00:00: [place] 4 X 4 " 00 Medical Bndg Branch Miscellaneo 2020-0 Yes [id number] enfit [facility] -19 [place] ity of Supply Misc 00:00: valve [place] 00 bags, 500 Medical ml Branch syringe, 2020-0 Yes [id number] 1{syrin 1 Syringe [facility], 2-19 ge} 3 (three) ity of non-sterile 00:00: times [place] (MONOJECT 00 daily. Medical ENFIT Branch SYRINGE) 35 mL Syrg nut.tx.impa 2020-0 Yes [id number] 1000mL 1,000 mL [facility] 2-19 by PEG ity of fxn,soy 00:00: Tube route [place] (NOVASOURCE 00 daily. Medica l RENAL 2 Method of Branch STAN) 0.09 feeding is gram- 2 pump, 4 kcal/mL cans per Liqd day, patient to titrate rate of administra tion, 80mL/hr into the Jejunal port of Jadiel GJ tube Miscellaneo 2020-0 Yes [id number] 4 straight [facility] 2-19 12" G ity of Supply Misc 00:00: bolus [place] 00 Ze Medical extensions Branch Miscellaneo 2020-0 Yes [id number] 4 right [facility] 2-19 angle 12" ity of Supply Misc 00:00: [place] 00 extensions Medical Branch Gauze 2020-0 Yes [id number] Use as Unive rs Bandage 2-19 directed ity of (GAUZE PAD) 00:00: [place] 4 X 4 " 00 Medical Bndg Branch Miscellaneo 2020-0 [id number] [place] ity of Supply Misc 00:00: valve [place] 00 bags, 500 Medical ml Branch syringe, 2020-0 Yes [id number] 1{syrin 1 Syringe [facility], 2-19 ge} 3 (three) ity of non-sterile 00:00: times [place] (MONOJECT 00 daily. Medical ENFIT Branch SYRINGE) 35 mL Syrg nut.tx.impa 2020-0 Yes [id number] 1000mL 1,000 mL [facility] 2-19 by PEG ity of fxn,soy 00:00: Tube route [place] (NOVASOURCE 00 daily. Medica l RENAL 2 Method of Branch STAN) 0.09 feeding is gram- 2 pump, 4 kcal/mL cans per Liqd day, patient to titrate rate of administra tion, 80mL/hr into the Jejunal port of Jadiel GJ tube Miscellaneo 2020-0 Yes [id number] 4 straight [facility] 219 12" G ity of Supply Misc 00:00: bolus [place] Medical extensions Branch Miscellaneo 2020-0 Yes [id number] 4 right [facility] 19 angle 12" ity of Supply Misc 00:00: J feed [place] 00 extensions Medical Branch Gauze 2020-0 Yes [id number] Use as Unive rs Bandage 01-02 directed ity of (GAUZE PAD) 00:00: [place] 4 X 4 " 00 Medical Bndg Branch Miscellaneo 2019-0 [id number] [place] ity of Supply Misc 00:00: valve [place] 00 bags, 500 Medical ml Branch syringe, 2019-0 Yes [id number] 1{syrin 1 Syringe [facility], 219 ge} 3 (three) ity of non-sterile 00:00: times [place] (MONOJECT 00 daily. Medical ENFIT Branch SYRINGE) 35 mL Syrg nut.tx.impa 0 Yes [id number] 1000mL 1,000 mL [facility] 2-19 by PEG ity of fxn,soy 00:00: Tube route [place] (NOVASOURCE 00 daily. Medica l RENAL 2 Method of Branch STAN) 0.09 feeding is gram- 2 pump, 4 kcal/mL cans per Liqd day, patient to titrate rate of administra tion, 80mL/hr into the Jejunal port of Jadiel GJ tube Miscellaneo 2020-0 Yes [id number] 4 [facility] 219 12" G ity of Supply Misc 00:00: bolus [place] Medical extensions Branch Miscellaneo 2020-0 Yes [id number] 4 right [facility] 219 angle 12" ity of Supply Misc 00:00: J feed [place] 00 extensions Medical Branch Gauze 2020-0 Yes [id number] Use as Unive rs Bandage 2-19 directed ity of (GAUZE PAD) 00:00: [place] 4 X 4 " 00 Medical Bndg Branch Miscellaneo 2020-0 Yes [id number] enfit [facility] -19 [place] ity of Supply Misc 00:00: valve [place] 00 bags, 500 Medical ml Branch syringe, 2020-0 Yes [id number] 1{syrin 1 Syringe [facility], 2-19 ge} 3 (three) ity of non-sterile 00:00: times [place] (MONOJECT 00 daily. Medical ENFIT Branch SYRINGE) 35 mL Syrg nut.tx.impa 2020-0 Yes [id number] 1000mL 1,000 mL [facility] 2-19 by PEG ity of fxn,soy 00:00: Tube route [place] (NOVASOURCE 00 daily. Medica l RENAL 2 Method of Branch STAN) 0.09 feeding is gram- 2 pump, 4 kcal/mL cans per Liqd day, patient to titrate rate of administra tion, 80mL/hr into the Jejunal port of Jadiel GJ tube Miscellaneo 2020-0 Yes [id number] 4 straight [facility] 2-19 12" G ity of Supply Misc 00:00: bolus [place] 00 Ze Medical extensions Branch Miscellaneo 2020-0 Yes [id number] 4 right [facility] 2-19 angle 12" ity of Supply Misc 00:00: J feed [place] 00 extensions Medical Branch Gauze 2020-0 Yes [id number] Use as Unive rs Bandage 2-19 directed ity of (GAUZE PAD) 00:00: [place] 4 X 4 " 00 Medical Bndg Branch Miscellaneo 2020-0 [id number] [place] ity of Supply Misc 00:00: valve [place] 00 bags, 500 Medical ml Branch syringe, 2020-0 Yes [id number] 1{syrin 1 Syringe [facility], 2-19 ge} 3 (three) ity of non-sterile 00:00: times [place] (MONOJECT 00 daily. Medical ENFIT Branch SYRINGE) 35 mL Syrg nut.tx.impa 2020-0 Yes [id number] 1000mL 1,000 mL [facility] 2-19 by PEG ity of fxn,soy 00:00: Tube route [place] (NOVASOURCE 00 daily. Medica l RENAL 2 Method of Branch STAN) 0.09 feeding is gram- 2 pump, 4 kcal/mL cans per Liqd day, patient to titrate rate of administra tion, 80mL/hr into the Jejunal port of Jadiel GJ tube Miscellaneo 2020-0 Yes [id number] 4 straight [facility] 01-02 12" G ity of Supply Misc 00:00: bolus [place] Medical extensions Branch Miscellaneo 2020-0 Yes [id number] 4 right [facility] 19 angle 12" ity of Supply Misc 00:00: J feed [place] 00 extensions Medical Branch Gauze 2019-0 Yes [id number] Use as Unive rs Bandage 01-02 directed ity of (GAUZE PAD) 00:00: [place] 4 X 4 " 00 Medical Bndg Branch Miscellaneo 2019-0 Yes [id number] [facility] 01-02 [place] ity of Supply Misc 00:00: valve bags, 500 Medical ml Branch syringe, 2019-0 Yes [id number] 1{syrin 1 Syringe [facility], 01-02 ge} 3 (three) ity of non-sterile 00:00: times [place] (MONOJECT 00 daily. Medical ENFIT Branch SYRINGE) 35 mL Syrg nut.tx.impa 0 Yes [id number] 1000mL 1,000 mL [facility] 2-19 by PEG ity of fxn,soy 00:00: Tube route [place] (NOVASOURCE 00 daily. Medica l RENAL 2 Method of Branch STAN) 0.09 feeding is gram- 2 pump, 4 kcal/mL cans per Liqd day, patient to titrate rate of administra tion, 80mL/hr into the Jejunal port of Jadiel GJ tube Miscellaneo 2020-0 Yes [id number] 4 [facility] 219 12" G ity of Supply Misc 00:00: bolus [place] Medical extensions Branch Miscellaneo 2020-0 Yes [id number] 4 right [facility] 19 angle 12" ity of Supply Misc 00:00: J feed [place] 00 extensions Medical Branch Gauze 2019-0 Yes [id number] Use as Unive rs Bandage 2-19 directed ity of (GAUZE PAD) 00:00: [place] 4 X 4 " 00 Medical Bndg Branch Miscellaneo 2020-0 Yes [id number] enfit [facility] 2-19 [place] ity of Supply Misc 00:00: valve [place] 00 bags, 500 Medical ml Branch syringe, 2020-0 Yes [id number] 1{syrin 1 Syringe [facility], 2-19 ge} 3 (three) ity of non-sterile 00:00: times [place] (MONOJECT 00 daily. Medical ENFIT Branch SYRINGE) 35 mL Syrg nut.tx.impa 2020-0 Yes [id number] 1000mL 1,000 mL [facility] 2-19 by PEG ity of fxn,soy 00:00: Tube route [place] (NOVASOURCE 00 daily. Medica l RENAL 2 Method of Branch STAN) 0.09 feeding is gram- 2 pump, 4 kcal/mL cans per Liqd day, patient to titrate rate of administra tion, 80mL/hr into the Jejunal port of Jadiel GJ tube Miscellaneo 2020-0 Yes [id number] 4 straight [facility] 2-19 12" G ity of Supply Misc 00:00: bolus [place] 00 Ze Medical extensions Branch Miscellaneo 2020-0 Yes [id number] 4 right [facility] 2-19 angle 12" ity of Supply Misc 00:00: J feed [place] 00 extensions Medical Branch Gauze 2020-0 Yes [id number] Use as Unive rs Bandage 2-19 directed ity of (GAUZE PAD) 00:00: [place] 4 X 4 " 00 Medical Bndg Branch Miscellaneo 2020-0 [id number] [place] ity of Supply Misc 00:00: valve [place] 00 bags, 500 Medical ml Branch syringe, 2020-0 Yes [id number] 1{syrin 1 Syringe [facility], 2-19 ge} 3 (three) ity of non-sterile 00:00: times [place] (MONOJECT 00 daily. Medical ENFIT Branch SYRINGE) 35 mL Syrg nut.tx.impa 2020-0 Yes [id number] 1000mL 1,000 mL [facility] 2-19 by PEG ity of fxn,soy 00:00: Tube route [place] (NOVASOURCE 00 daily. Medica l RENAL 2 Method of Branch STAN) 0.09 feeding is gram- 2 pump, 4 kcal/mL cans per Liqd day, patient to titrate rate of administra tion, 80mL/hr into the Jejunal port of Jadiel GJ tube Miscellaneo 2020-0 Yes [id number] 4 [facility] 01-02 12" G ity of Supply Misc 00:00: bolus [place] Medical extensions Branch Miscellaneo 2020-0 Yes [id number] 4 right [facility] 19 angle 12" ity of Supply Misc 00:00: J feed [place] 00 extensions Medical Branch Gauze 2019-0 Yes [id number] Use as Unive rs Bandage 01-02 directed ity of (GAUZE PAD) 00:00: [place] 4 X 4 " 00 Medical Bndg Branch Miscellaneo 2019-0 Yes [id number] [facility] 01-02 [place] ity of Supply Misc 00:00: valve [place], 500 Medical ml Branch syringe, 2019-0 Yes [id number] 1{syrin 1 Syringe [facility]} 3 (three) ity of non-sterile 00:00: times [place] (MONOJECT 00 daily. Medical ENFIT Branch SYRINGE) 35 mL Syrg nut.tx.impa 0 Yes [id number] 1000mL 1,000 mL [facility] 2-19 by PEG ity of fxn,soy 00:00: Tube route [place] (NOVASOURCE 00 daily. Medica l RENAL 2 Method of Branch STAN) 0.09 feeding is gram- 2 pump, 4 kcal/mL cans per Liqd day, patient to titrate rate of administra tion, 80mL/hr into the Jejunal port of Jadiel GJ tube Miscellaneo 2020-0 Yes [id number] 4 [facility] 01-02 12" G ity of Supply Misc 00:00: bolus [place] Medical extensions Branch Miscellaneo 2020-0 Yes [id number] 4 right [facility] 19 angle 12" ity of Supply Misc 00:00: J feed [place] 00 extensions Medical Branch Gauze 2019-0 Yes [id number] Use as Unive rs Bandage 2-19 directed ity of (GAUZE PAD) 00:00: [place] 4 X 4 " 00 Medical Bndg Branch Miscellaneo 2020-0 Yes [id number] enfit [facility] 2-19 [place] ity of Supply Misc 00:00: valve [place] 00 bags, 500 Medical ml Branch syringe, 2020-0 Yes [id number] 1{syrin 1 Syringe [facility], 2-19 ge} 3 (three) ity of non-sterile 00:00: times [place] (MONOJECT 00 daily. Medical ENFIT Branch SYRINGE) 35 mL Syrg nut.tx.impa 2020-0 Yes [id number] 1000mL 1,000 mL [facility] 2-19 by PEG ity of fxn,soy 00:00: Tube route [place] (NOVASOURCE 00 daily. Medica l RENAL 2 Method of Branch STAN) 0.09 feeding is gram- 2 pump, 4 kcal/mL cans per Liqd day, patient to titrate rate of administra tion, 80mL/hr into the Jejunal port of Jadiel GJ tube Miscellaneo 2020-0 Yes [id number] 4 straight [facility] 2-19 12" G ity of Supply Misc 00:00: bolus [place] 00 Ze Medical extensions Branch Miscellaneo 2020-0 Yes [id number] 4 right [facility] 2-19 angle 12" ity of Supply Misc 00:00: J feed [place] 00 extensions Medical Branch Gauze 2020-0 Yes [id number] Use as Unive rs Bandage 2-19 directed ity of (GAUZE PAD) 00:00: [place] 4 X 4 " 00 Medical Bndg Branch Miscellaneo 2020-0 Yes [id number] enfit [facility] 2-19 [place] ity of Supply Misc 00:00: valve [place] 00 bags, 500 Medical ml Branch syringe, 2020-0 Yes [id number] 1{syrin 1 Syringe [facility], 2-19 ge} 3 (three) ity of non-sterile 00:00: times [place] (MONOJECT 00 daily. Medical ENFIT Branch SYRINGE) 35 mL Syrg nut.tx.impa 2020-0 Yes [id number] 1000mL 1,000 mL [facility] 2-19 by PEG ity of fxn,soy 00:00: Tube route [place] (NOVASOURCE 00 daily. Medica l RENAL 2 Method of Branch STAN) 0.09 feeding is gram- 2 pump, 4 kcal/mL cans per Liqd day, patient to titrate rate of administra tion, 80mL/hr into the Jejunal port of Jadiel GJ tube Miscellaneo 2020-0 Yes [id number] 4 [facility] 01-02 12" G ity of Supply Misc 00:00: bolus [place] Medical extensions Branch Miscellaneo 2020-0 Yes [id number] 4 right [facility] 19 angle 12" ity of Supply Misc 00:00: J feed [place] 00 extensions Medical Branch Gauze 2019-0 Yes [id number] Use as Unive rs Bandage 01-02 directed ity of (GAUZE PAD) 00:00: [place] 4 X 4 " 00 Medical Bndg Branch Miscellaneo 2019-0 Yes [id number] [facility] 01-02 [place] ity of Supply Misc 00:00: valve 00 bags, 500 Medical ml Branch syringe, 2019-0 Yes [id number] 1{syrin 1 Syringe [facility], 01-02 ge} 3 (three) ity of non-sterile 00:00: times [place] (MONOJECT 00 daily. Medical ENFIT Branch SYRINGE) 35 mL Syrg nut.tx.impa 0 Yes [id number] 1000mL 1,000 mL [facility] 2-19 by PEG ity of fxn,soy 00:00: Tube route [place] (NOVASOURCE 00 daily. Medica l RENAL 2 Method of Branch STAN) 0.09 feeding is gram- 2 pump, 4 kcal/mL cans per Liqd day, patient to titrate rate of administra tion, 80mL/hr into the Jejunal port of Jadiel GJ tube Miscellaneo 2020-0 Yes [id number] 4 [facility] 19 12" G ity of Supply Misc 00:00: bolus [place] Medical extensions Branch Miscellaneo 2020-0 Yes [id number] 4 [facility] 19 angle 12" ity of Supply Misc 00:00: J feed [place] 00 extensions Medical Branch Gauze 2020-0 Yes [id number] Use as Unive rs Bandage 2-19 directed ity of (GAUZE PAD) 00:00: [place] 4 X 4 " 00 Medical Bndg Branch Miscellaneo 2020-0 Yes [id number] enfit [facility] -19 [place] ity of Supply Misc 00:00: valve [place] 00 bags, 500 Medical ml Branch syringe, 2019-0 Yes [id number] 1{syrin 1 Syringe [facility], 2-19 ge} 3 (three) ity of non-sterile 00:00: times [place] (MONOJECT 00 daily. Medical ENFIT Branch SYRINGE) 35 mL Syrg nut.tx.impa 2020-0 Yes [id number] 1000mL 1,000 mL [facility] 2-19 by PEG ity of fxn,soy 00:00: Tube route [place] (NOVASOURCE 00 daily. Medica l RENAL 2 Method of Branch STAN) 0.09 feeding is gram- 2 pump, 4 kcal/mL cans per Liqd day, patient to titrate rate of administra tion, 80mL/hr into the Jejunal port of Jadiel GJ tube Miscellaneo 2020-0 Yes [id number] 4 straight [facility] 2-19 12" G ity of Supply Misc 00:00: bolus [place] 00 Ze Medical extensions Branch Miscellaneo 2020-0 Yes [id number] 4 right [facility] 2-19 angle 12" ity of Supply Misc 00:00: J feed [place] 00 extensions Medical Branch Gauze 2020-0 Yes [id number] Use as Unive rs Bandage 2-19 directed ity of (GAUZE PAD) 00:00: [place] 4 X 4 " 00 Medical Bndg Branch Miscellaneo 2020-0 Yes [id number] enfit [facility] 2-19 [place] ity of Supply Misc 00:00: valve [place] 00 bags, 500 Medical ml Branch syringe, 2019-0 Yes [id number] 1{syrin 1 Syringe [facility], 2-19 ge} 3 (three) ity of non-sterile 00:00: times [place] (MONOJECT 00 daily. Medical ENFIT Branch SYRINGE) 35 mL Syrg nut.tx.impa 2020-0 Yes [id number] 1000mL 1,000 mL [facility] 2-19 by PEG ity of fxn,soy 00:00: Tube route [place] (NOVASOURCE 00 daily. Medica l RENAL 2 Method of Branch STAN) 0.09 feeding is gram- 2 pump, 4 kcal/mL cans per Liqd day, patient to titrate rate of administra tion, 80mL/hr into the Jejunal port of Jadiel GJ tube Miscellaneo 2020-0 Yes [id number] 4 straight [facility] 01-02 12" G ity of Supply Misc 00:00: bolus [place] Medical extensions Branch Miscellaneo 2020-0 Yes [id number] 4 right [facility] - angle 12" ity of Supply Misc 00:00: J feed [place] 00 extensions Medical Branch Gauze 0 Yes [id number] Use as Unive rs Bandage 01-02 directed ity of (GAUZE PAD) 00:00: [place] 4 X 4 " 00 Medical Bndg Branch Miscellaneo 2019-0 [id number] [place] ity of Supply Misc 00:00: valve 00 bags, 500 Medical ml Branch syringe, 2019-0 Yes [id number] 1{syrin 1 Syringe [facility], 01-02 ge} 3 (three) ity of non-sterile 00:00: times [place] (MONOJECT 00 daily. Medical ENFIT Branch SYRINGE) 35 mL Syrg nut.tx.impa 2019-0 Yes [id number] 1000mL 1,000 mL [facility] 2-19 by PEG ity of fxn,soy 00:00: Tube route [place] (NOVASOURCE 00 daily. Medica l RENAL 2 Method of Branch STAN) 0.09 feeding is gram- 2 pump, 4 kcal/mL cans per Liqd day, patient to titrate rate of administra tion, 80mL/hr into the Jejunal port of Jadiel GJ tube Miscellaneo 2020-0 Yes [id number] 4 straight [facility] 219 12" G ity of Supply Misc 00:00: bolus [place] Medical extensions Branch Miscellaneo 2020-0 Yes [id number] 4 right [facility] 01-02 angle 12" ity of Supply Misc 00:00: J feed [place] 00 extensions Medical Branch Gauze 2020-0 Yes [id number] Use as Unive rs Bandage 2-19 directed ity of (GAUZE PAD) 00:00: [place] 4 X 4 " 00 Medical Bndg Branch Miscellaneo 2020-0 Yes [id number] enfit [facility] 2-19 [place] ity of Supply Misc 00:00: valve [place] 00 bags, 500 Medical ml Branch syringe, 2019-0 Yes [id number] 1{syrin 1 Syringe [facility], 2-19 ge} 3 (three) ity of non-sterile 00:00: times [place] (MONOJECT 00 daily. Medical ENFIT Branch SYRINGE) 35 mL Syrg nut.tx.impa 2019-0 Yes [id number] 1000mL 1,000 mL [facility] 2-19 by PEG ity of fxn,soy 00:00: Tube route [place] (NOVASOURCE 00 daily. Medica l RENAL 2 Method of Branch STAN) 0.09 feeding is gram- 2 pump, 4 kcal/mL cans per Liqd day, patient to titrate rate of administra tion, 80mL/hr into the Jejunal port of Jadiel GJ tube Miscellaneo 2020-0 Yes [id number] 4 straight [facility] 2-19 12" G ity of Supply Misc 00:00: bolus [place] 00 Ze Medical extensions Branch Miscellaneo 2020-0 Yes [id number] 4 right [facility] 2-19 angle 12" ity of Supply Misc 00:00: J feed [place] 00 extensions Medical Branch Gauze 2020-0 Yes [id number] Use as Unive rs Bandage 2-19 directed ity of (GAUZE PAD) 00:00: [place] 4 X 4 " 00 Medical Bndg Branch Miscellaneo 2020-0 Yes [id number] enfit [facility] 2-19 [place] ity of Supply Misc 00:00: valve [place] 00 bags, 500 Medical ml Branch syringe, 2019-0 Yes [id number] 1{syrin 1 Syringe [facility], 2-19 ge} 3 (three) ity of non-sterile 00:00: times [place] (MONOJECT 00 daily. Medical ENFIT Branch SYRINGE) 35 mL Syrg nut.tx.impa 2020-0 Yes [id number] 1000mL 1,000 mL [facility] 2-19 by PEG ity of fxn,soy 00:00: Tube route [place] (NOVASOURCE 00 daily. Medica l RENAL 2 Method of Branch STAN) 0.09 feeding is gram- 2 pump, 4 kcal/mL cans per Liqd day, patient to titrate rate of administra tion, 80mL/hr into the Jejunal port of Jadiel GJ tube Miscellaneo 2020-0 Yes [id number] 4 straight [facility] 01-02 12" G ity of Supply Misc 00:00: bolus Ze Medical extensions Branch Miscellaneo 2020-0 Yes [id number] 4 right [facility] 19 angle 12" ity of Supply Misc 00:00: [place] extensions Medical Branch Gauze 2019-0 Yes [id number] Use as Unive rs Bandage 01-02 directed ity of (GAUZE PAD) 00:00: [place] 4 X 4 " 00 Medical Bndg Branch Miscellaneo 2019-0 [id number] [place] ity of Supply Misc 00:00: [place] 00 bags, 500 Medical ml Branch syringe, 2019-0 Yes [id number] 1{syrin 1 Syringe [facility], 01-02 ge} 3 (three) ity of non-sterile 00:00: times [place] (MONOJECT 00 daily. Medical ENFIT Branch SYRINGE) 35 mL Syrg nut.tx.impa 2020-0 Yes [id number] 1000mL 1,000 mL [facility] 2-19 by PEG ity of fxn,soy 00:00: Tube route [place] (NOVASOURCE 00 daily. Medica l RENAL 2 Method of Branch STAN) 0.09 feeding is gram- 2 pump, 4 kcal/mL cans per Liqd day, patient to titrate rate of administra tion, 80mL/hr into the Jejunal port of Jadiel GJ tube Miscellaneo 2020-0 Yes [id number] 4 [facility] 19 12" G ity of Supply Misc 00:00: bolus Ze Medical extensions Branch Miscellaneo 2020-0 Yes [id number] 4 right [facility] 19 angle 12" ity of Supply Misc 00:00: [place] 00 extensions Medical Branch Gauze 2020-0 Yes [id number] Use as Unive rs Bandage 2-19 directed ity of (GAUZE PAD) 00:00: [place] 4 X 4 " 00 Medical Bndg Branch Miscellaneo 2020-0 Yes [id number] enfit [facility] 2-19 [place] ity of Supply Misc 00:00: valve [place] 00 bags, 500 Medical ml Branch syringe, 2019-0 Yes [id number] 1{syrin 1 Syringe [facility], 2-19 ge} 3 (three) ity of non-sterile 00:00: times [place] (MONOJECT 00 daily. Medical ENFIT Branch SYRINGE) 35 mL Syrg nut.tx.impa 2019-0 Yes [id number] 1000mL 1,000 mL [facility] 2-19 by PEG ity of fxn,soy 00:00: Tube route [place] (NOVASOURCE 00 daily. Medica l RENAL 2 Method of Branch STAN) 0.09 feeding is gram- 2 pump, 4 kcal/mL cans per Liqd day, patient to titrate rate of administra tion, 80mL/hr into the Jejunal port of Jadiel GJ tube Miscellaneo 2020-0 Yes [id number] 4 straight [facility] 2-19 12" G ity of Supply Misc 00:00: bolus [place] 00 Ze Medical extensions Branch Miscellaneo 2020-0 Yes [id number] 4 right [facility] 2-19 angle 12" ity of Supply Misc 00:00: [place] 00 extensions [place] Gauze 2020-0 Yes [id number] Use as Unive rs Bandage 2-19 directed ity of (GAUZE PAD) 00:00: [place] 4 X 4 " 00 Medical Bndg Branch Miscellaneo 2020-0 Yes [id number] enfit [facility] 2-19 Doan ity of Supply Misc 00:00: valve [place] 00 bags, 500 Medical ml Branch syringe, 2019-0 Yes [id number] 1{syrin 1 Syringe [facility], 2-19 ge} 3 (three) ity of non-sterile 00:00: times [place] (MONOJECT 00 daily. Medical ENFIT Branch SYRINGE) 35 mL Syrg [email or web address] 2019-0 Yes [id number] 1000mL 1,000 mL [facility] renal 2-19 by PEG ity of fxn,soy 00:00: [place]ube route [place] (NOVASOURCE 00 daily. Medica l RENAL 2 Method of Branch STAN) 0.09 feeding is gram- 2 pump, 4 kcal/mL cans per Liqd day, patient to titrate rate of administra tion, 80mL/hr into the Jejunal port of Jadiel GJ tube Miscellaneo 2020-0 Yes [id number] 4 straight [facility] 01-02 12" G ity of Supply Misc 00:00: bolus [place] Ze Medical extensions Branch Miscellaneo 2020-0 Yes [id number] 4 right [facility] 19 angle 12" ity of Supply Misc 00:00: [place] 00 extensions [place] Branch Gauze 2019-0 Yes [id number] Use as Unive rs Bandage 01-02 directed ity of (GAUZE PAD) 00:00: [place] 4 X 4 " 00 Medical Bndg Branch Miscellaneo 2019-0 [id number] ity [facility] Misc 00:00: valve 00 bags, 500 Medical ml Branch syringe, 2019-0 Yes [id number] 1{syrin 1 Syringe [facility] ENFit, 19 ge} 3 (three) ity of non-sterile 00:00: times [place] (MONOJECT 00 daily. Medical ENFIT Branch SYRINGE) 35 mL Syrg [email or web address] 2020-0 Yes [id number] 1000mL 1,000 mL [facility] renal 2-19 by PEG ity of fxn,soy 00:00: [place]ube route [place] (NOVASOURCE 00 daily. Medica l RENAL 2 Method of Branch STAN) 0.09 feeding is gram- 2 pump, 4 kcal/mL cans per Liqd day, patient to titrate rate of administra tion, 80mL/hr into the Jejunal port of Jadiel GJ tube Miscellaneo 2020-0 Yes [id number] 4 [facility] 219 12" G ity of Supply Misc 00:00: [place] Medical extensions Branch Miscellaneo 2020-0 Yes [id number] 4 right [facility] 19 angle 12" ity of Supply Misc 00:00: [place] 00 extensions [place] Gauze 2020-0 Yes [id number] Use as Unive rs Bandage 2-19 directed ity of (GAUZE PAD) 00:00: [place] 4 X 4 " 00 Medical Bndg Branch Miscellaneo 2020-0 Yes [id number] enfit [facility] 2-19 Doan ity of Supply Misc 00:00: valve [place] 00 bags, 500 Medical ml Branch syringe, 2020-0 Yes [id number] 1{syrin 1 Syringe [facility], 2-19 ge} 3 (three) ity of non-sterile 00:00: times [place] (MONOJECT 00 daily. Medical ENFIT Branch SYRINGE) 35 mL Syrg [email or web address] 2019-0 Yes [id number] 1000mL 1,000 mL [facility] renal 2-19 by PEG ity of fxn,soy 00:00: [place]ube route [place] (NOVASOURCE 00 daily. Medica l RENAL 2 Method of Branch STAN) 0.09 feeding is gram- 2 pump, 4 kcal/mL cans per Liqd day, patient to titrate rate of administra tion, 80mL/hr into the Jejunal port of Jadiel GJ tube Miscellaneo 2020-0 Yes [id number] 4 straight [facility] 2-19 12" G ity of Supply Misc 00:00: bolus [place] 00 Ze Medical extensions Branch Miscellaneo 2020-0 Yes [id number] 4 right [facility] 2-19 angle 12" ity of Supply Misc 00:00: [place] 00 extensions [place] Branch Gauze 2020-0 Yes [id number] Use as Unive rs Bandage 2-19 directed ity of (GAUZE PAD) 00:00: [place] 4 X 4 " 00 Medical Bndg Branch Miscellaneo 2020-0 Yes [id number] enfit [facility] 2-19 Doan ity of Supply Misc 00:00: valve [place] 00 bags, 500 Medical ml Branch syringe, 2019-0 Yes [id number] 1{syrin 1 Syringe [facility], 2-19 ge} 3 (three) ity of non-sterile 00:00: times [place] (MONOJECT 00 daily. Medical ENFIT Branch SYRINGE) 35 mL Syrg [email or web address] 2019-0 Yes [id number] 1000mL 1,000 mL [facility] renal 2-19 by PEG ity of fxn,soy 00:00: Tube route [place] (NOVASOURCE 00 daily. Medica l RENAL 2 Method of Branch STAN) 0.09 feeding is gram- 2 pump, 4 kcal/mL cans per Liqd day, patient to titrate rate of administra tion, 80mL/hr into the Jejunal port of Jadiel GJ tube Miscellaneo 2020-0 Yes [id number] 4 straight [facility] 01-02 12" G ity of Supply Misc 00:00: bolus [place] Ze Medical extensions Branch Miscellaneo 2020-0 Yes [id number] 4 right [facility] 19 angle 12" ity of Supply Misc 00:00: [place] 00 extensions Medical Branch Gauze 2020-0 Yes [id number] Use as Unive rs Bandage 01-02 directed ity of (GAUZE PAD) 00:00: [place] 4 X 4 " 00 Medical Bndg Branch Miscellaneo 2019-0 [id number] Doan ity of Supply Misc 00:00: valve [place] 00 bags, 500 Medical ml Branch syringe, 2019-0 Yes [id number] 1{syrin 1 Syringe Univers [facility], 01-02 ge} 3 (three) ity of non-sterile 00:00: times [place] (MONOJECT 00 daily. Medical ENFIT Branch SYRINGE) 35 mL Syrg [email or web address] 2020-0 Yes [id number] 1000mL 1,000 mL [facility] ired renal 2-19 by PEG ity of fxn,soy 00:00: Tube route [place] (NOVASOURCE 00 daily. Medica l RENAL 2 Method of Branch STAN) 0.09 feeding is gram- 2 pump, 4 kcal/mL cans per Liqd day, patient to titrate rate of administra tion, 80mL/hr into the Jejunal port of Jadiel GJ tube Miscellaneo 2020-0 Yes [id number] 4 [facility] 2-19 12" G ity of Supply Misc 00:00: [place] Medical extensions Branch Miscellaneo 2020-0 Yes [id number] 4 right [facility] 19 angle 12" ity of Supply Misc 00:00: [place] 00 extensions Medical Branch Gauze 2020-0 Yes [id number] Use as Unive rs Bandage 2-19 directed ity of (GAUZE PAD) 00:00: [place] 4 X 4 " 00 Medical Bndg Branch Miscellaneo 2020-0 Yes [id number] enfit [facility] 2-19 Doan ity of Supply Misc 00:00: valve [place] 00 bags, 500 Medical ml Branch syringe, 2020-0 Yes [id number] 1{syrin 1 Syringe [facility], 2-19 ge} 3 (three) ity of non-sterile 00:00: times [place] (MONOJECT 00 daily. Medical ENFIT Branch SYRINGE) 35 mL Syrg [email or web address] 2019-0 Yes [id number] 1000mL 1,000 mL [facility] renal 2-19 by PEG ity of fxn,soy 00:00: Tube route [place] (NOVASOURCE 00 daily. Medica l RENAL 2 Method of Branch STAN) 0.09 feeding is gram- 2 pump, 4 kcal/mL cans per Liqd day, patient to titrate rate of administra tion, 80mL/hr into the Jejunal port of Jadiel GJ tube Miscellaneo 2020-0 Yes [id number] 4 straight [facility] 2-19 12" G ity of Supply Misc 00:00: bolus [place] 00 Ze Medical extensions Branch Miscellaneo 2020-0 Yes [id number] 4 right [facility] 2-19 angle 12" ity of Supply Misc 00:00: [place] 00 extensions Medical Branch Gauze 2020-0 Yes [id number] Use as Unive rs Bandage 2-19 directed ity of (GAUZE PAD) 00:00: [place] 4 X 4 " 00 Medical Bndg Branch Miscellaneo 2020-0 Yes [id number] enfit [facility] 2-19 Doan ity of Supply Misc 00:00: valve [place] 00 bags, 500 Medical ml Branch syringe, 2020-0 Yes [id number] 1{syrin 1 Syringe [facility], 2-19 ge} 3 (three) ity of non-sterile 00:00: times [place] (MONOJECT 00 daily. Medical ENFIT Branch SYRINGE) 35 mL Syrg [email or web address] 2020-0 Yes [id number] 1000mL 1,000 mL [facility] i[facility] renal -19 by PEG ity of fxn,soy 00:00: Tube route [place] (NOVASOURCE 00 daily. Medica l RENAL 2 Method of Branch STAN) 0.09 feeding is gram- 2 pump, 4 kcal/mL cans per Liqd day, patient to titrate rate of administra tion, 80mL/hr into the Jejunal port of Jadiel GJ tube Miscellaneo 2020-0 Yes [id number] 4 straight [facility] Medical 01-02 12" G ity of Supply Misc 00:00: [place] Medical extensions Branch Miscellaneo 2020-0 Yes [id number] 4 right [facility] 01-02 angle 12" ity of Supply Misc 00:00: [place] 00 extensions Medical Branch pregabalin 0 2020- No 100mg Take 1 Cap [place] (LYRICA) 01-02 by mouth 3 Glenn ege 100 MG 00:00: 00:00 times of capsule 00 :00 daily. Medicin e Olopatadine 2020-[address] 1 [place] HCl (Pazeo) 2-03 DROP IN Healt h 0.7 % 00:00: EACH EYE solution 00 DAILY. Olopatadine 2020-[address] 1 [place] HCl (Pazeo) 2-03 DROP IN Healt h 0.7 % 00:00: EACH EYE solution 00 DAILY. Olopatadine 2020-[address] 1 [place] HCl (Pazeo) 2-03 DROP IN Healt h 0.7 % 00:00: EACH EYE solution 00 DAILY. baclofen 2020-0 2020- No [id number] TAKE 1 [place] (LIORESAL) 12-17 TABLET BY Col lege 10 MG 00:00: 00:00 MOUTH of tablet 00 :00 THREE Medicin TIMES A e DAY Oral 2018-11 Yes [id number] GIVE 166ML Uni vers Electrolyte 2-02 EVERY 4 ity o f s 00:00: HOURS VIA [place] (PEDIATRIC 00 PEG Medical ELECTROLYTE Branch ) solution Oral 2018-11 Yes [id number] GIVE 166ML Uni vers Electrolyte 2-02 EVERY 4 ity o f s 00:00: HOURS VIA [place] (PEDIATRIC 00 PEG Medical ELECTROLYTE Branch ) solution Oral 2018-11 Yes [id number] GIVE 166ML Uni vers Electrolyte 2-02 EVERY 4 ity o f s 00:00: HOURS VIA [place] (PEDIATRIC 00 PEG Medical ELECTROLYTE Branch ) solution Oral 2019- Yes [id number] GIVE 166ML Uni vers Electrolyte 2-02 EVERY 4 ity o f s 00:00: HOURS VIA [place] (PEDIATRIC 00 PEG Medical ELECTROLYTE Branch ) solution Oral 2019- Yes [id number] GIVE 166ML Uni vers Electrolyte 2-02 EVERY 4 ity o f s 00:00: HOURS VIA [place] (PEDIATRIC 00 PEG Medical ELECTROLYTE Branch ) solution Oral 2019- Yes [id number] GIVE 166ML Uni vers Electrolyte 2-02 EVERY 4 ity o f s 00:00: HOURS VIA [place] (PEDIATRIC 00 PEG Medical ELECTROLYTE Branch ) solution Oral 2018- Yes [id number] GIVE 166ML Uni vers Electrolyte 2-02 EVERY 4 ity o f s 00:00: HOURS VIA [place] (PEDIATRIC 00 PEG Medical ELECTROLYTE Branch ) solution Oral 2018- Yes [id number] GIVE 166ML Uni vers Electrolyte 2-02 EVERY 4 ity o f s 00:00: HOURS VIA [place] (PEDIATRIC 00 PEG Medical ELECTROLYTE Branch ) solution Oral 2019- Yes [id number] GIVE 166ML Uni vers Electrolyte 2-02 EVERY 4 ity o f s 00:00: HOURS VIA [place] (PEDIATRIC 00 PEG Medical ELECTROLYTE Branch ) solution Oral 2019- Yes [id number] GIVE 166ML Uni vers Electrolyte 2-02 EVERY 4 ity o f s 00:00: HOURS VIA [place] (PEDIATRIC 00 PEG Medical ELECTROLYTE Branch ) solution Oral 2019- Yes [id number] GIVE 166ML Uni vers Electrolyte 2-02 EVERY 4 ity o f s 00:00: HOURS VIA [place] (PEDIATRIC 00 PEG Medical ELECTROLYTE Branch ) solution Oral 2019- Yes [id number] GIVE 166ML Uni vers Electrolyte 2-02 EVERY 4 ity o f s 00:00: HOURS VIA [place] (PEDIATRIC 00 PEG Medical ELECTROLYTE Branch ) solution Oral 2019- Yes [id number] GIVE 166ML Uni vers Electrolyte 2-02 EVERY 4 ity o f s 00:00: HOURS VIA [place] (PEDIATRIC 00 PEG Medical ELECTROLYTE Branch ) solution Oral 2019- Yes [id number] GIVE 166ML Uni vers Electrolyte 2-02 EVERY 4 ity o f s 00:00: HOURS VIA [place] (PEDIATRIC 00 PEG Medical ELECTROLYTE Branch ) solution Oral 2019- Yes [id number] GIVE 166ML Uni vers Electrolyte 2-02 EVERY 4 ity o f s 00:00: HOURS VIA [place] (PEDIATRIC 00 PEG Medical ELECTROLYTE Branch ) solution Oral 2018-11 Yes [id number] GIVE 166ML Uni vers Electrolyte 2-02 EVERY 4 ity o f s 00:00: HOURS VIA [place] (PEDIATRIC 00 PEG Medical ELECTROLYTE Branch ) solution Oral 2018- Yes [id number] GIVE 166ML Uni vers Electrolyte 2-02 EVERY 4 ity o f s 00:00: HOURS VIA [place] (PEDIATRIC 00 PEG Medical ELECTROLYTE Branch ) solution Oral 2018-11 Yes [id number] GIVE 166ML Uni vers Electrolyte 2-02 EVERY 4 ity o f s 00:00: HOURS VIA [place] (PEDIATRIC 00 PEG Medical ELECTROLYTE Branch ) solution Oral 2018-11 Yes [id number] GIVE 166ML Uni vers Electrolyte 2-02 EVERY 4 ity o f s 00:00: HOURS VIA [place] (PEDIATRIC 00 PEG Medical ELECTROLYTE Branch ) solution Oral 2018-11 Yes [id number] GIVE 166ML Uni vers Electrolyte 2-02 EVERY 4 ity o f s 00:00: HOURS VIA [place] (PEDIATRIC 00 PEG Medical ELECTROLYTE Branch ) solution Oral 2018-11 Yes [id number] GIVE 166ML Uni vers Electrolyte 2-02 EVERY 4 ity o f s 00:00: HOURS VIA [place] (PEDIATRIC 00 PEG Medical ELECTROLYTE Branch ) solution Oral 2018-11 Yes [id number] GIVE 166ML Uni vers Electrolyte 2-02 EVERY 4 ity o f s 00:00: HOURS VIA [place] (PEDIATRIC 00 PEG Medical ELECTROLYTE Branch ) solution Oral 2018-11 Yes [id number] GIVE 166ML Uni vers Electrolyte 2-02 EVERY 4 ity o f s 00:00: HOURS VIA [place] (PEDIATRIC 00 PEG Medical ELECTROLYTE Branch ) solution Oral 2018-11 Yes [id number] GIVE 166ML Uni vers Electrolyte 2-02 EVERY 4 ity o f s 00:00: HOURS VIA [place] (PEDIATRIC 00 PEG Medical ELECTROLYTE Branch ) solution Oral 2018-11 Yes [id number] GIVE 166ML Uni vers Electrolyte 2-02 EVERY 4 ity o f s 00:00: HOURS VIA [place] (PEDIATRIC 00 PEG Medical ELECTROLYTE Branch ) solution Oral 2018- Yes [id number] GIVE 166ML Uni vers Electrolyte 2-02 EVERY 4 ity o f s 00:00: HOURS VIA [place] (PEDIATRIC 00 PEG Medical ELECTROLYTE Branch ) solution Oral 2018- Yes [id number] GIVE 166ML Uni vers Electrolyte 2-02 EVERY 4 ity o f s 00:00: HOURS VIA [place] (PEDIATRIC 00 PEG Medical ELECTROLYTE Branch ) solution Oral 2018-11 Yes [id number] GIVE 166ML Uni vers Electrolyte 2-02 EVERY 4 ity o f s 00:00: HOURS VIA [place] (PEDIATRIC 00 PEG Medical ELECTROLYTE Branch ) solution Oral 2019- Yes [id number] GIVE 166ML Uni vers Electrolyte 2-02 EVERY 4 ity o f s 00:00: HOURS VIA [place] (PEDIATRIC 00 PEG Medical ELECTROLYTE Branch ) solution Oral 2019- Yes [id number] GIVE 166ML Uni vers Electrolyte 2-02 EVERY 4 ity o f s 00:00: HOURS VIA [place] (PEDIATRIC 00 PEG Medical ELECTROLYTE Branch ) solution Oral 2019- Yes [id number] GIVE 166ML Uni vers Electrolyte 2-02 EVERY 4 ity o f s 00:00: HOURS VIA [place] (PEDIATRIC 00 PEG Medical ELECTROLYTE Branch ) solution Oral 2018- Yes [id number] GIVE 166ML Uni vers Electrolyte 2-02 EVERY 4 ity o f s 00:00: HOURS VIA [place] (PEDIATRIC 00 PEG Medical ELECTROLYTE Branch ) solution Oral 2018- Yes [id number] GIVE 166ML Uni vers Electrolyte 2-02 EVERY 4 ity o f s 00:00: HOURS VIA [place] (PEDIATRIC 00 PEG Medical ELECTROLYTE Branch ) solution Oral 2019- Yes [id number] GIVE 166ML Uni vers Electrolyte 2-02 EVERY 4 ity o f s 00:00: HOURS VIA [place] (PEDIATRIC 00 PEG Medical ELECTROLYTE Branch ) solution Oral 2019- Yes [id number] GIVE 166ML Uni vers Electrolyte 2-02 EVERY 4 ity o f s 00:00: HOURS VIA [place] (PEDIATRIC 00 PEG Medical ELECTROLYTE Branch ) solution Oral 2019- Yes [id number] GIVE 166ML Uni vers Electrolyte 2-02 EVERY 4 ity o f s 00:00: HOURS VIA [place] (PEDIATRIC 00 PEG Medical ELECTROLYTE Branch ) solution Oral 2019- Yes [id number] GIVE 166ML Uni vers Electrolyte 2-02 EVERY 4 ity o f s 00:00: HOURS VIA [place] (PEDIATRIC 00 PEG Medical ELECTROLYTE Branch ) solution Oral 2019- Yes [id number] GIVE 166ML Uni vers Electrolyte 2-02 EVERY 4 ity o f s 00:00: HOURS VIA [place] (PEDIATRIC 00 PEG Medical ELECTROLYTE Branch ) solution Oral 2019- Yes [id number] GIVE 166ML Uni vers Electrolyte 2-02 EVERY 4 ity o f s 00:00: HOURS VIA [place] (PEDIATRIC 00 PEG Medical ELECTROLYTE Branch ) solution Oral 2019- Yes [id number] GIVE 166ML Uni vers Electrolyte 2-02 EVERY 4 ity o f s 00:00: HOURS VIA [place] (PEDIATRIC 00 PEG Medical ELECTROLYTE Branch ) solution Oral 2018-11 Yes [id number] GIVE 166ML Uni vers Electrolyte 2-02 EVERY 4 ity o f s 00:00: HOURS VIA [place] (PEDIATRIC 00 PEG Medical ELECTROLYTE Branch ) solution Oral 2018- Yes [id number] GIVE 166ML Uni vers Electrolyte 2-02 EVERY 4 ity o f s 00:00: HOURS VIA [place] (PEDIATRIC 00 PEG Medical ELECTROLYTE Branch ) solution Oral 2018-11 Yes [id number] GIVE 166ML Uni vers Electrolyte 2-02 EVERY 4 ity o f s 00:00: HOURS VIA [place] (PEDIATRIC 00 PEG Medical ELECTROLYTE Branch ) solution Oral 2018-11 Yes [id number] GIVE 166ML Uni vers Electrolyte 2-02 EVERY 4 ity o f s 00:00: HOURS VIA [place] (PEDIATRIC 00 PEG Medical ELECTROLYTE Branch ) solution Oral 2018-11 Yes [id number] GIVE 166ML Uni vers Electrolyte 2-02 EVERY 4 ity o f s 00:00: HOURS VIA [place] (PEDIATRIC 00 PEG Medical ELECTROLYTE Branch ) solution Oral 2018-11 Yes [id number] GIVE 166ML Uni vers Electrolyte 2-02 EVERY 4 ity o f s 00:00: HOURS VIA [place] (PEDIATRIC 00 PEG Medical ELECTROLYTE Branch ) solution Oral 2018-11 Yes [id number] GIVE 166ML Uni vers Electrolyte 2-02 EVERY 4 ity o f s 00:00: HOURS VIA [place] (PEDIATRIC 00 PEG Medical ELECTROLYTE Branch ) solution Oral 2018-11 Yes [id number] GIVE 166ML Uni vers Electrolyte 2-02 EVERY 4 ity o f s 00:00: HOURS VIA [place] (PEDIATRIC 00 PEG Medical ELECTROLYTE Branch ) solution Oral 2018-11 Yes [id number] GIVE 166ML Uni vers Electrolyte 2-02 EVERY 4 ity o f s 00:00: HOURS VIA [place] (PEDIATRIC 00 PEG Medical ELECTROLYTE Branch ) solution Oral 2018-11 Yes [id number] GIVE 166ML Uni vers Electrolyte 2-02 EVERY 4 ity o f s 00:00: HOURS VIA [place] (PEDIATRIC 00 PEG Medical ELECTROLYTE Branch ) solution Oral 2018- Yes [id number] GIVE 166ML Uni vers Electrolyte 2-02 EVERY 4 ity o f s 00:00: HOURS VIA [place] (PEDIATRIC 00 PEG Medical ELECTROLYTE Branch ) solution Oral 2018- Yes [id number] GIVE 166ML Uni vers Electrolyte 2-02 EVERY 4 ity o f s 00:00: HOURS VIA [place] (PEDIATRIC 00 PEG Medical ELECTROLYTE Branch ) solution Oral 2018-11 Yes [id number] GIVE 166ML Uni vers Electrolyte 2-02 EVERY 4 ity o f s 00:00: HOURS VIA [place] (PEDIATRIC 00 PEG Medical ELECTROLYTE Branch ) solution Oral 2019- Yes [id number] GIVE 166ML Uni vers Electrolyte 2-02 EVERY 4 ity o f s 00:00: HOURS VIA [place] (PEDIATRIC 00 PEG Medical ELECTROLYTE Branch ) solution Oral 2019- Yes [id number] GIVE 166ML Uni vers Electrolyte 2-02 EVERY 4 ity o f s 00:00: HOURS VIA [place] (PEDIATRIC 00 PEG Medical ELECTROLYTE Branch ) solution Oral 2019- Yes [id number] GIVE 166ML Uni vers Electrolyte 2-02 EVERY 4 ity o f s 00:00: HOURS VIA [place] (PEDIATRIC 00 PEG Medical ELECTROLYTE Branch ) solution Oral 2018- Yes [id number] GIVE 166ML Uni vers Electrolyte 2-02 EVERY 4 ity o f s 00:00: HOURS VIA [place] (PEDIATRIC 00 PEG Medical ELECTROLYTE Branch ) solution Oral 2018- Yes [id number] GIVE 166ML Uni vers Electrolyte 2-02 EVERY 4 ity o f s 00:00: HOURS VIA [place] (PEDIATRIC 00 PEG Medical ELECTROLYTE Branch ) solution Oral 2019- Yes [id number] GIVE 166ML Uni vers Electrolyte 2-02 EVERY 4 ity o f s 00:00: HOURS VIA [place] (PEDIATRIC 00 PEG Medical ELECTROLYTE Branch ) solution Oral 2019- Yes [id number] GIVE 166ML Uni vers Electrolyte 2-02 EVERY 4 ity o f s 00:00: HOURS VIA [place] (PEDIATRIC 00 PEG Medical ELECTROLYTE Branch ) solution Oral 2019- Yes [id number] GIVE 166ML Uni vers Electrolyte 2-02 EVERY 4 ity o f s 00:00: HOURS VIA [place] (PEDIATRIC 00 PEG Medical ELECTROLYTE Branch ) solution Oral 2019- Yes [id number] GIVE 166ML Uni vers Electrolyte 2-02 EVERY 4 ity o f s 00:00: HOURS VIA [place] (PEDIATRIC 00 PEG Medical ELECTROLYTE Branch ) solution Oral 2019- Yes [id number] GIVE 166ML Uni vers Electrolyte 2-02 EVERY 4 ity o f s 00:00: HOURS VIA [place] (PEDIATRIC 00 PEG Medical ELECTROLYTE Branch ) solution Oral 2019- Yes [id number] GIVE 166ML Uni vers Electrolyte 2-02 EVERY 4 ity o f s 00:00: HOURS VIA [place] (PEDIATRIC 00 PEG Medical ELECTROLYTE Branch ) solution Oral 2019- Yes [id number] GIVE 166ML Uni vers Electrolyte 2-02 EVERY 4 ity o f s 00:00: HOURS VIA [place] (PEDIATRIC 00 PEG Medical ELECTROLYTE Branch ) solution Oral 2018-11 Yes [id number] GIVE 166ML Uni vers Electrolyte 2-02 EVERY 4 ity o f s 00:00: HOURS VIA [place] (PEDIATRIC 00 PEG Medical ELECTROLYTE Branch ) solution Oral 2018- Yes [id number] GIVE 166ML Uni vers Electrolyte 2-02 EVERY 4 ity o f s 00:00: HOURS VIA [place] (PEDIATRIC 00 PEG Medical ELECTROLYTE Branch ) solution Oral 2018-11 Yes [id number] GIVE 166ML Uni vers Electrolyte 2-02 EVERY 4 ity o f s 00:00: HOURS VIA [place] (PEDIATRIC 00 PEG Medical ELECTROLYTE Branch ) solution Oral 2018-11 Yes [id number] GIVE 166ML Uni vers Electrolyte 2-02 EVERY 4 ity o f s 00:00: HOURS VIA [place] (PEDIATRIC 00 PEG Medical ELECTROLYTE Branch ) solution Oral 2018-11 Yes [id number] GIVE 166ML Uni vers Electrolyte 2-02 EVERY 4 ity o f s 00:00: HOURS VIA [place] (PEDIATRIC 00 PEG Medical ELECTROLYTE Branch ) solution Oral 2018-11 Yes [id number] GIVE 166ML Uni vers Electrolyte 2-02 EVERY 4 ity o f s 00:00: HOURS VIA [place] (PEDIATRIC 00 PEG Medical ELECTROLYTE Branch ) solution Oral 2018-11 Yes [id number] GIVE 166ML Uni vers Electrolyte 2-02 EVERY 4 ity o f s 00:00: HOURS VIA [place] (PEDIATRIC 00 PEG Medical ELECTROLYTE Branch ) solution Oral 2018-11 Yes [id number] GIVE 166ML Uni vers Electrolyte 2-02 EVERY 4 ity o f s 00:00: HOURS VIA [place] (PEDIATRIC 00 PEG Medical ELECTROLYTE Branch ) solution Oral 2018-11 Yes [id number] GIVE 166ML Uni vers Electrolyte 2-02 EVERY 4 ity o f s 00:00: HOURS VIA [place] (PEDIATRIC 00 PEG Medical ELECTROLYTE Branch ) solution Oral 2018-11 Yes [id number] GIVE 166ML Uni vers Electrolyte 2-02 EVERY 4 ity o f s 00:00: HOURS VIA [place] (PEDIATRIC 00 PEG Medical ELECTROLYTE Branch ) solution Oral 2018- Yes [id number] GIVE 166ML Uni vers Electrolyte 2-02 EVERY 4 ity o f s 00:00: HOURS VIA [place] (PEDIATRIC 00 PEG Medical ELECTROLYTE Branch ) solution Oral 2018- Yes [id number] GIVE 166ML Uni vers Electrolyte 2-02 EVERY 4 ity o f s 00:00: HOURS VIA [place] (PEDIATRIC 00 PEG Medical ELECTROLYTE Branch ) solution Oral 2018-11 Yes [id number] GIVE 166ML Uni vers Electrolyte 2-02 EVERY 4 ity o f s 00:00: HOURS VIA [place] (PEDIATRIC 00 PEG Medical ELECTROLYTE Branch ) solution Oral 2019- Yes [id number] GIVE 166ML Uni vers Electrolyte 2-02 EVERY 4 ity o f s 00:00: HOURS VIA [place] (PEDIATRIC 00 PEG Medical ELECTROLYTE Branch ) solution Oral 2019- Yes [id number] GIVE 166ML Uni vers Electrolyte 2-02 EVERY 4 ity o f s 00:00: HOURS VIA [place] (PEDIATRIC 00 PEG Medical ELECTROLYTE Branch ) solution Oral 2019- Yes [id number] GIVE 166ML Uni vers Electrolyte 2-02 EVERY 4 ity o f s 00:00: HOURS VIA [place] (PEDIATRIC 00 PEG Medical ELECTROLYTE Branch ) solution Oral 2018- Yes [id number] GIVE 166ML Uni vers Electrolyte 2-02 EVERY 4 ity o f s 00:00: HOURS VIA [place] (PEDIATRIC 00 PEG Medical ELECTROLYTE Branch ) solution Oral 2018- Yes [id number] GIVE 166ML Uni vers Electrolyte 2-02 EVERY 4 ity o f s 00:00: HOURS VIA [place] (PEDIATRIC 00 PEG Medical ELECTROLYTE Branch ) solution Oral 2019- Yes [id number] GIVE 166ML Uni vers Electrolyte 2-02 EVERY 4 ity o f s 00:00: HOURS VIA [place] (PEDIATRIC 00 PEG Medical ELECTROLYTE Branch ) solution Oral 2019- Yes [id number] GIVE 166ML Uni vers Electrolyte 2-02 EVERY 4 ity o f s 00:00: HOURS VIA [place] (PEDIATRIC 00 PEG Medical ELECTROLYTE Branch ) solution Oral 2019- Yes [id number] GIVE 166ML Uni vers Electrolyte 2-02 EVERY 4 ity o f s 00:00: HOURS VIA [place] (PEDIATRIC 00 PEG Medical ELECTROLYTE Branch ) solution Oral 2019- Yes [id number] GIVE 166ML Uni vers Electrolyte 2-02 EVERY 4 ity o f s 00:00: HOURS VIA [place] (PEDIATRIC 00 PEG Medical ELECTROLYTE Branch ) solution Oral 2019- Yes [id number] GIVE 166ML Uni vers Electrolyte 2-02 EVERY 4 ity o f s 00:00: HOURS VIA [place] (PEDIATRIC 00 PEG Medical ELECTROLYTE Branch ) solution Oral 2019- Yes [id number] GIVE 166ML Uni vers Electrolyte 2-02 EVERY 4 ity o f s 00:00: HOURS VIA [place] (PEDIATRIC 00 PEG Medical ELECTROLYTE Branch ) solution Oral 2019- Yes [id number] GIVE 166ML Uni vers Electrolyte 2-02 EVERY 4 ity o f s 00:00: HOURS VIA [place] (PEDIATRIC 00 PEG Medical ELECTROLYTE Branch ) solution Oral 2018-11 Yes [id number] GIVE 166ML Uni vers Electrolyte 2-02 EVERY 4 ity o f s 00:00: HOURS VIA [place] (PEDIATRIC 00 PEG Medical ELECTROLYTE Branch ) solution Oral 2018-11 Yes [id number] GIVE 166ML Uni vers Electrolyte 2-02 EVERY 4 ity o f s 00:00: HOURS VIA [place] (PEDIATRIC 00 PEG Medical ELECTROLYTE Branch ) solution Oral 2018-11 Yes [id number] GIVE 166ML Uni vers Electrolyte 2-02 EVERY 4 ity o f s 00:00: HOURS VIA [place] (PEDIATRIC 00 PEG Medical ELECTROLYTE Branch ) solution Oral 2018-11 Yes [id number] GIVE 166ML Uni vers Electrolyte 2-02 EVERY 4 ity o f s 00:00: HOURS VIA [place] (PEDIATRIC 00 PEG Medical ELECTROLYTE Branch ) solution Oral 2018-11 Yes [id number] GIVE 166ML Uni vers Electrolyte 2-02 EVERY 4 ity o f s 00:00: HOURS VIA [place] (PEDIATRIC 00 PEG Medical ELECTROLYTE Branch ) solution Oral 2018-11 Yes [id number] GIVE 166ML Uni vers Electrolyte 2-02 EVERY 4 ity o f s 00:00: HOURS VIA [place] (PEDIATRIC 00 PEG Medical ELECTROLYTE Branch ) solution Oral 2018-11 Yes [id number] GIVE 166ML Uni vers Electrolyte 2-02 EVERY 4 ity o f s 00:00: HOURS VIA [place] (PEDIATRIC 00 PEG Medical ELECTROLYTE Branch ) solution Oral 2018-11- No [id number] GIVE 166ML Un o[place]iel Electrolyte 2-02 02-17 EVERY 4 ity of s 00:00: 00:00 HOURS VIA [place] (PEDIATRIC 00 :00 PEG Medical ELECTROLYTE Branch ) solution Oral 2018-11- No [id number] GIVE 166ML [facility] Electrolyte 2-02 02-17 EVERY 4 ity of s 00:00: 00:00 HOURS VIA [place] (PEDIATRIC 00 :00 PEG Medical ELECTROLYTE Branch ) solution LYRICA 100 2018-11 2020- No [id number] TAKE 1 Jose Rafael MG capsule 12-06 CAPSULE BY [facility] 00:00: 00:00 MOUTH of 00 :00 EVERY 8 Medicin HOURS e tramadol 2018-11- No [id number] 50mg Take 1 Tab [facility] (ULTRAM) 50 12-02 by mouth [facility] MG tablet 00:00: 00:00 every 8 of 00 :00 hours as Medicin needed for e Pain. hydrocodone 2018-11- No [id number] 1 tab Jose Rafael -acetaminop -19 -19 every 4-6 [facility] hen (NORCO) 00:00: 00:00 hrs for of 10-325 MG 00 :00 post-surgi Medi corine per tablet stan joint e pain R hand levalbutero 2018-11 Yes 1{puff} Inhale 1-2 [facility] l (Xopenex) 1-15 puffs. Health 45 MCG/ACT 00:00: inhaler 00 levalbutero 2018-11 Yes 1{puff} Inhale 1-2 [facility] (Xopenex) 1-15 puffs. Health 45 MCG/ACT 00:00: inhaler 00 levalbutero 2018-11 Yes 1{puff} Inhale 1-2 [facility] l (Xopenex) 1-15 puffs. Health 45 MCG/ACT 00:00: inhaler 00 glucose 2018-11 Yes USE 1 [facility] blood 0-14 STRIP 2 Health (OneTouch 00:00: (TWO) Verio) test 00 TIMES strip DAILY. glucose 2018-11 Yes USE 1 [facility] blood 0-14 STRIP 2 Health (OneTouch 00:00: (TWO) Verio) test 00 TIMES strip DAILY. glucose 2018-11 Yes USE 1 [facility] blood 0-14 STRIP 2 Health (OneTouch 00:00: (TWO) Verio) test 00 TIMES strip DAILY. Continuous Yes Use as [facility] Glucose 9-20 directed Health Monitor Sup 00:00: (Oval Tape) 00 [facility] oxybutynin 2019- Yes 5mg Take 5 mg [facility] (Ditropan) 9-20 by mouth. Heal th 5 MG tablet 00:00: 00 Continuous Yes Use as [facility] Glucose 9-20 directed Health Monitor Sup 00:00: (Oval Tape) 00 [facility] oxybutynin 2019-0 Yes 5mg Take 5 mg [facility] (Ditropan) 9-20 by mouth. [facility]al th 5 MG tablet 00:00: 00 oxybutynin 2019-0 Yes 5mg Take 5 mg [facility] (Ditropan) 9-20 by mouth. [facility]al th 5 MG tablet 00:00: 00 Continuous 0 Yes Use as [facility] Glucose 9-20 directed Health Monitor Sup 00:00: (Oval Tape) 00 [facility] Diabetic 2018- Yes [id number] Use as [facility] Supplies, 9-20 directed ity of Miscellan. 00:00: [place] (OVAL TAPE) 00 Medical Misc Branch Diabetic 2019-0 Yes [id number] Use as [facility] Supplies, 9-20 directed ity of Miscellan. 00:00: [place] (OVAL TAPE) 00 Medical Misc Branch Diabetic 2019-0 Yes [id number] Use as [facility] Supplies, 9-20 directed ity of Miscellan. 00:00: [place] (OVAL TAPE) 00 Medical Misc Branch Diabetic 2019-0 Yes [id number] Use as [facility] Supplies, 9-20 directed ity of Miscellan. 00:00: [place] (OVAL TAPE) 00 Medical Misc Branch Diabetic 2019-0 Yes [id number] Use as [facility] Supplies, 9-20 directed ity of Miscellan. 00:00: [place] (OVAL TAPE) 00 Medical Misc Branch Diabetic 2019-0 Yes [id number] Use as [facility] Supplies, 9-20 directed ity of Miscellan. 00:00: [place] (OVAL TAPE) 00 Medical Misc Branch Diabetic 2019-0 Yes [id number] Use as [facility] Supplies, 9-20 directed ity of Miscellan. 00:00: [place] (OVAL TAPE) 00 Medical Misc Branch Diabetic 2019-0 Yes [id number] Use as [facility] Supplies, 9-20 directed ity of Miscellan. 00:00: [place] (OVAL TAPE) 00 Medical Misc Branch Diabetic 2019-0 Yes [id number] Use as [facility] Supplies, 9-20 directed ity of Miscellan. 00:00: [place] (OVAL TAPE) 00 Medical Misc Branch Diabetic 2019-0 Yes [id number] Use as [facility] Supplies, 9-20 directed ity of Miscellan. 00:00: [place] (OVAL TAPE) 00 Medical Misc Branch Diabetic 2019-0 Yes [id number] Use as [facility] Supplies, 9-20 directed ity of Miscellan. 00:00: [place] (OVAL TAPE) 00 Medical Misc Branch Diabetic 2019-0 Yes [id number] Use as [facility] Supplies, 9-20 directed ity of Miscellan. 00:00: [place] (OVAL TAPE) 00 Medical Misc Branch Diabetic 2019-0 Yes [id number] Use as [facility] Supplies, 9-20 directed ity of Miscellan. 00:00: [place] (OVAL TAPE) 00 Medical Misc Branch Diabetic 2019-0 Yes [id number] Use as [facility] Supplies, 9-20 directed ity of Miscellan. 00:00: [place] (OVAL TAPE) 00 Medical Misc Branch Diabetic 2019-0 Yes [id number] Use as [facility] Supplies, 9-20 directed ity of Miscellan. 00:00: [place] (OVAL TAPE) 00 Medical Misc Branch Diabetic 2019-0 Yes [id number] Use as [facility] Supplies, 9-20 directed ity of Miscellan. 00:00: [place] (OVAL TAPE) 00 Medical Misc Branch Diabetic 2019-0 Yes [id number] Use as [facility] Supplies, 9-20 directed ity of Miscellan. 00:00: [place] (OVAL TAPE) 00 Medical Misc Branch Diabetic 2019-0 Yes [id number] Use as [facility] Supplies, 9-20 directed ity of Miscellan. 00:00: [place] (OVAL TAPE) 00 Medical Misc Branch Diabetic 2019-0 Yes [id number] Use as [facility] Supplies, 9-20 directed ity of Miscellan. 00:00: [place] (OVAL TAPE) 00 Medical Misc Branch Diabetic 2019-0 Yes [id number] Use as [facility] Supplies, 9-20 directed ity of Miscellan. 00:00: [place] (OVAL TAPE) 00 Medical Misc Branch Diabetic 2019-0 Yes [id number] Use as [facility] Supplies, 9-20 directed ity of Miscellan. 00:00: [place] (OVAL TAPE) 00 Medical Misc Branch Diabetic 2019-0 Yes [id number] Use as [facility] Supplies, 9-20 directed ity of Miscellan. 00:00: [place] (OVAL TAPE) 00 Medical Misc Branch Diabetic 2019-0 Yes [id number] Use as [facility] Supplies, 9-20 directed ity of Miscellan. 00:00: [place] (OVAL TAPE) 00 Medical Misc Branch Diabetic 2019-0 Yes [id number] Use as [facility] Supplies, 9-20 directed ity of Miscellan. 00:00: [place] (OVAL TAPE) 00 Medical Misc Branch Diabetic 2019-0 Yes [id number] Use as [facility] Supplies, 9-20 directed ity of Miscellan. 00:00: [place] (OVAL TAPE) 00 Medical Misc Branch Diabetic 2019-0 Yes [id number] Use as [facility] Supplies, 9-20 directed ity of Miscellan. 00:00: [place] (OVAL TAPE) 00 Medical Misc Branch Diabetic 2019-0 Yes [id number] Use as [facility] Supplies, 9-20 directed ity of Miscellan. 00:00: [place] (OVAL TAPE) 00 Medical Misc Branch Diabetic 2019-0 Yes [id number] Use as [facility] Supplies, 9-20 directed ity of Miscellan. 00:00: [place] (OVAL TAPE) 00 Medical Misc Branch Diabetic 2019-0 Yes [id number] Use as [facility] Supplies, 9-20 directed ity of Miscellan. 00:00: [place] (OVAL TAPE) 00 Medical Misc Branch Diabetic 2019-0 Yes [id number] Use as [facility] Supplies, 9-20 directed ity of Miscellan. 00:00: [place] (OVAL TAPE) 00 Medical Misc Branch Diabetic 2019-0 Yes [id number] Use as [facility] Supplies, 9-20 directed ity of Miscellan. 00:00: [place] (OVAL TAPE) 00 Medical Misc Branch Diabetic 2019-0 Yes [id number] Use as [facility] Supplies, 9-20 directed ity of Miscellan. 00:00: [place] (OVAL TAPE) 00 Medical Misc Branch Diabetic 2019-0 Yes [id number] Use as [facility] Supplies, 9-20 directed ity of Miscellan. 00:00: [place] (OVAL TAPE) 00 Medical Misc Branch Diabetic 2019-0 Yes [id number] Use as [facility] Supplies, 9-20 directed ity of Miscellan. 00:00: [place] (OVAL TAPE) 00 Medical Misc Branch Diabetic 2019-0 Yes [id number] Use as [facility] Supplies, 9-20 directed ity of Miscellan. 00:00: [place] (OVAL TAPE) 00 Medical Misc Branch Diabetic 2019-0 Yes [id number] Use as [facility] Supplies, 9-20 directed ity of Miscellan. 00:00: [place] (OVAL TAPE) 00 Medical Misc Branch Diabetic 2019-0 Yes [id number] Use as [facility] Supplies, 9-20 directed ity of Miscellan. 00:00: [place] (OVAL TAPE) 00 Medical Misc Branch Diabetic 2019-0 Yes [id number] Use as [facility] Supplies, 9-20 directed ity of Miscellan. 00:00: [place] (OVAL TAPE) 00 Medical Misc Branch Diabetic 2019-0 Yes [id number] Use as [facility] Supplies, 9-20 directed ity of Miscellan. 00:00: [place] (OVAL TAPE) 00 Medical Misc Branch Diabetic 2019-0 Yes [id number] Use as [facility] Supplies, 9-20 directed ity of Miscellan. 00:00: [place] (OVAL TAPE) 00 Medical Misc Branch Diabetic 2019-0 Yes [id number] Use as [facility] Supplies, 9-20 directed ity of Miscellan. 00:00: [place] (OVAL TAPE) 00 Medical Misc Branch Diabetic 2019-0 Yes [id number] Use as [facility] Supplies, 9-20 directed ity of Miscellan. 00:00: [place] (OVAL TAPE) 00 Medical Misc Branch Diabetic 2019-0 Yes [id number] Use as [facility] Supplies, 9-20 directed ity of Miscellan. 00:00: [place] (OVAL TAPE) 00 Medical Misc Branch Diabetic 2019-0 Yes [id number] Use as [facility] Supplies, 9-20 directed ity of Miscellan. 00:00: [place] (OVAL TAPE) 00 Medical Misc Branch Diabetic 2019-0 Yes [id number] Use as [facility] Supplies, 9-20 directed ity of Miscellan. 00:00: [place] (OVAL TAPE) 00 Medical Misc Branch Diabetic 2019-0 Yes [id number] Use as [facility] Supplies, 9-20 directed ity of Miscellan. 00:00: [place] (OVAL TAPE) 00 Medical Misc Branch Diabetic 2019-0 Yes [id number] Use as [facility] Supplies, 9-20 directed ity of Miscellan. 00:00: [place] (OVAL TAPE) 00 Medical Misc Branch Diabetic 2019-0 Yes [id number] Use as [facility] Supplies, 9-20 directed ity of Miscellan. 00:00: [place] (OVAL TAPE) 00 Medical Misc Branch Diabetic 2019-0 Yes [id number] Use as [facility] Supplies, 9-20 directed ity of Miscellan. 00:00: [place] (OVAL TAPE) 00 Medical Misc Branch Diabetic 2019-0 Yes [id number] Use as [facility] Supplies, 08-03 directed ity of Miscellan. 00:00: [place] (OVAL TAPE) 00 Medical [facility] Diabetic 2018-2021- No [id number] Use as [facility] Supp[facility], 08-03 directed ity o f Miscellan. 00:00: 00:00 [place] (OVAL TAPE) 00 :00 Medical [facility] Diabetic 2018-2021- No [id number] Use as [facility] Supplies, 08-03 directed ity o f Miscellan. 00:00: 00:00 [place] (OVAL TAPE) 00 :00 Medical [facility] Diabetic 2018-2021- No [id number] Use as [facility] Supplies, 08-03 directed ity o f Miscellan. 00:00: 00:00 [place] (OVAL TAPE) 00 :00 Medical [facility] gabapentin 2019- No 250mg Take 250 [facility] (NEURONTIN) 8-12 08-12 mg by [facility] 250 MG/5ML 21:31: 00:00 mouth 3 of solution 27 :00 times Medicin daily. e amitriptyli Yes [id number] 50mg Take 1 Tab [facility] ne (ELAVIL) 8-12 by mouth [facility] 50 MG 00:00: nightly. of tablet 00 Medicin e baclofen Yes [id number] 10mg Take 1 Tab [facility] (LIORESAL) 8-12 by mouth 3 [facility] 10 MG 00:00: times of tablet 00 daily. Medicin e LYRICA 100 2018- Yes [id number] TAKE 1 [facility] MG capsule 8-12 CAPSULE BY [facility] 00:00: MOUTH of 00 EVERY 8 Medicin HOURS e tramadol Yes [id number] 50mg Take 1 Tab [facility] (ULTRAM) 50 8-12 by mouth [facility] MG tablet 00:00: every 8 of 00 hours as Medicin needed for e Pain. pregabalin Yes 1{capsu Take 1 [facility] (LYRICA) 8-12 le} capsule by ity o f 100 mg 00:00: mouth. [place] capsule 00 Medical Branch pregabalin 2018- Yes 1{capsu Take 1 [facility] (LYRICA) 8-12 le} capsule by ity o f 100 mg 00:00: mouth. [place] capsule Medical Branch pregabalin 2019-0 Yes 1{capsu Take 1 [facility] (LYRICA) 8-12 le} capsule by ity o f 100 mg 00:00: mouth. [place] capsule Medical Branch pregabalin 2019-0 Yes 1{capsu Take 1 [facility] (LYRICA) 8-12 le} capsule by ity o f 100 mg 00:00: mouth. [place] capsule Medical Branch pregabalin 2019-0 Yes 1{capsu Take 1 [facility] (LYRICA) 8-12 le} capsule by ity o f 100 mg 00:00: mouth. [place] capsule Medical Branch pregabalin 2019-0 Yes 1{capsu Take 1 [facility] (LYRICA) 8-12 le} capsule by ity o f 100 mg 00:00: mouth. [place] capsule Medical Branch pregabalin 2019-0 Yes 1{capsu Take 1 [facility] (LYRICA) 8-12 le} capsule by ity o f 100 mg 00:00: mouth. [place] capsule Medical Branch pregabalin 2019-0 Yes 1{capsu Take 1 [facility] (LYRICA) 8-12 le} capsule by ity o f 100 mg 00:00: mouth. [place] capsule Medical Branch pregabalin 2019-0 Yes 1{capsu Take 1 [facility] (LYRICA) 8-12 le} capsule by ity o f 100 mg 00:00: mouth. [place] capsule Medical Branch pregabalin 2019-0 Yes 1{capsu Take 1 [facility] (LYRICA) 8-12 le} capsule by ity o f 100 mg 00:00: mouth. [place] capsule Medical Branch pregabalin 2019-0 Yes 1{capsu Take 1 [facility] (LYRICA) 8-12 le} capsule by ity o f 100 mg 00:00: mouth. [place] capsule Medical Branch pregabalin 2019-0 Yes 1{capsu Take 1 [facility] (LYRICA) 8-12 le} capsule by ity o f 100 mg 00:00: mouth. [place] capsule Medical Branch pregabalin 2019-0 Yes 1{capsu Take 1 [facility] (LYRICA) 8-12 le} capsule by ity o f 100 mg 00:00: mouth. [place] capsule Medical Branch pregabalin 2019-0 Yes 1{capsu Take 1 [facility] (LYRICA) 8-12 le} capsule by ity o f 100 mg 00:00: mouth. [place] capsule Medical Branch pregabalin 2019-0 Yes 1{capsu Take 1 [facility] (LYRICA) 8-12 le} capsule by ity o f 100 mg 00:00: mouth. [place] capsule Medical Branch pregabalin 2019-0 Yes 1{capsu Take 1 [facility] (LYRICA) 8-12 le} capsule by ity o f 100 mg 00:00: mouth. [place] capsule Medical Branch pregabalin 2019-0 Yes 1{capsu Take 1 [facility] (LYRICA) 8-12 le} capsule by ity o f 100 mg 00:00: mouth. [place] capsule Medical Branch pregabalin 2019-0 Yes 1{capsu Take 1 [facility] (LYRICA) 8-12 le} capsule by ity o f 100 mg 00:00: mouth. [place] capsule Medical Branch pregabalin 2019-0 Yes 1{capsu Take 1 [facility] (LYRICA) 8-12 le} capsule by ity o f 100 mg 00:00: mouth. [place] capsule Medical Branch pregabalin 2019-0 Yes 1{capsu Take 1 [facility] (LYRICA) 8-12 le} capsule by ity o f 100 mg 00:00: mouth. [place] capsule Medical Branch pregabalin 2019-0 Yes 1{capsu Take 1 [facility] (LYRICA) 8-12 le} capsule by ity o f 100 mg 00:00: mouth. [place] capsule Medical Branch pregabalin 2019-0 Yes 1{capsu Take 1 [facility] (LYRICA) 8-12 le} capsule by ity o f 100 mg 00:00: mouth. [place] capsule Medical [facility] pregabalin 2019-0 Yes 1{capsu Take 1 [facility] (LYRICA) 8-12 le} capsule by ity o f 100 mg 00:00: mouth. [place] capsule Medical [facility] pregabalin 2019-0 Yes 1{capsu Take 1 [facility] (LYRICA) 8-12 le} capsule by ity o f 100 mg 00:00: mouth. [place] capsule Medical [facility] pregabalin 2019-0 Yes 1{capsu Take 1 [facility] (LYRICA) 8-12 le} capsule by ity o f 100 mg 00:00: mouth. [place] capsule Medical Branch pregabalin 2019-0 Yes 1{capsu Take 1 [facility] (LYRICA) 8-12 le} capsule by ity o f 100 mg 00:00: mouth. [place] capsule Medical Branch pregabalin 2019-0 Yes 1{capsu Take 1 [facility] (LYRICA) 8-12 le} capsule by ity o f 100 mg 00:00: mouth. [place] capsule Medical Branch pregabalin 2019-0 Yes 1{capsu Take 1 [facility] (LYRICA) 8-12 le} capsule by ity o f 100 mg 00:00: mouth. [place] capsule Medical Branch pregabalin 2019-0 Yes 1{capsu Take 1 [facility] (LYRICA) 8-12 le} capsule by ity o f 100 mg 00:00: mouth. [place] capsule Medical Branch pregabalin 2019-0 Yes 1{capsu Take 1 [facility] (LYRICA) 8-12 le} capsule by ity o f 100 mg 00:00: mouth. [place] capsule Medical Branch pregabalin 2019-0 Yes 1{capsu Take 1 [facility] (LYRICA) 8-12 le} capsule by ity o f 100 mg 00:00: mouth. [place] capsule Medical [facility] pregabalin 2019-0 Yes 1{capsu Take 1 [facility] (LYRICA) 8-12 le} capsule by ity o f 100 mg 00:00: mouth. [place] capsule Medical Branch pregabalin 2019-0 Yes 1{capsu Take 1 [facility] (LYRICA) 8-12 le} capsule by ity o f 100 mg 00:00: mouth. [place] capsule Medical Branch pregabalin 2019-0 Yes 1{capsu Take 1 [facility] (LYRICA) 8-12 le} capsule by ity o f 100 mg 00:00: mouth. [place] capsule Medical Branch pregabalin 2019-0 Yes 1{capsu Take 1 [facility] (LYRICA) 8-12 le} capsule by ity o f 100 mg 00:00: mouth. [place] capsule Medical [facility] pregabalin 2019 Yes 1{capsu Take 1 [facility] (LYRICA) 8-12 le} capsule by ity o f 100 mg 00:00: mouth. [place] capsule Medical [facility] pregabalin 0 Yes 1{capsu Take 1 [facility] (LYRICA) 8-12 le} capsule by ity o f 100 mg 00:00: mouth. [place] capsule Medical [facility] pregabalin 0 Yes 1{capsu Take 1 [facility] (LYRICA) 8-12 le} capsule by ity o f 100 mg 00:00: mouth. [place] capsule Medical Branch pregabalin Yes 1{capsu Take 1 [facility] (LYRICA) 8-12 le} capsule by ity o f 100 mg 00:00: mouth. [place] capsule Medical [facility] pregabalin 0 Yes 1{capsu Take 1 [facility] (LYRICA) 8-12 le} capsule by ity o f 100 mg 00:00: mouth. [place] capsule Medical [facility] pregabalin 0 Yes 1{capsu Take 1 [facility] (LYRICA) 8-12 le} capsule by ity o f 100 mg 00:00: mouth. [place] capsule Medical [facility] pregabalin 0 Yes 1{capsu Take 1 [facility] (LYRICA) 8-12 le} capsule by ity o f 100 mg 00:00: mouth. [place] capsule Medical [facility] pregabalin 0 Yes 1{capsu Take 1 [facility] (LYRICA) 8-12 le} capsule by ity o f 100 mg 00:00: mouth. [place] capsule Medical [facility] pregabalin 0 Yes 1{capsu Take 1 [facility] (LYRICA) 8-12 le} capsule by ity o f 100 mg 00:00: mouth. [place] capsule Medical Branch pregabalin 2018-0 Yes 1{capsu Take 1 [facility] (LYRICA) 8-12 le} capsule by ity o f 100 mg 00:00: mouth. [place] capsule Medical [facility] pregabalin 0 Yes 1{capsu Take 1 [facility] (LYRICA) 8-12 le} capsule by ity o f 100 mg 00:00: mouth. [place] capsule Medical [facility] pregabalin 2019-0 Yes 1{capsu Take 1 [facility] (LYRICA) 8-12 le} capsule by ity o f 100 mg 00:00: mouth. [place] capsule Medical Branch pregabalin [id number] Yes 1{capsu Take 1 [facility] (LYRICA) 8-12 le} capsule by ity o f 100 mg 00:00: mouth. [place] capsule Medical [facility] pregabalin 2019-0 Yes 1{capsu Take 1 [facility] (LYRICA) 8-12 le} capsule by ity o f 100 mg 00:00: mouth. [place] capsule Medical [facility] pregabalin 0 Yes 1{capsu Take 1 [facility] (LYRICA) 8-12 le} capsule by ity o f 100 mg 00:00: mouth. [place] capsule [facility] pregabalin 2018-0 Yes 1{capsu Take 1 [facility] (LYRICA) 8-12 le} capsule by ity o f 100 mg 00:00: mouth. [place] capsule Medical [facility] pregabalin 2019-0 Yes 1{capsu Take 1 [facility] (LYRICA) 8-12 le} capsule by ity o f 100 mg 00:00: mouth. [place] capsule Medical [facility] pregabalin 2019-0 Yes 1{capsu Take 1 [facility] (LYRICA) 8-12 le} capsule by ity o f 100 mg 00:00: mouth. [place] capsule Medical [facility] pregabalin 2019-0 Yes 1{capsu Take 1 [facility] (LYRICA) 8-12 le} capsule by ity o f 100 mg 00:00: mouth. [place] capsule Medical [facility] pregabalin 2019-0 Yes 1{capsu Take 1 [facility] (LYRICA) 8-12 le} capsule by ity o f 100 mg 00:00: mouth. [place] capsule Medical [facility] pregabalin 2019-0 Yes 1{capsu Take 1 [facility] (LYRICA) 8-12 le} capsule by ity o f 100 mg 00:00: mouth. [place] capsule Medical [facility] pregabalin 2018-0 Yes 1{capsu Take 1 [facility] (LYRICA) 8-12 le} capsule by ity o f 100 mg 00:00: mouth. [place] capsule Medical [facility] pregabalin 2018-0 Yes 1{capsu Take 1 [facility] (LYRICA) 8-12 le} capsule by ity o f 100 mg 00:00: mouth. [place] capsule Medical [facility] pregabalin 2019-0 Yes 1{capsu Take 1 [facility] (LYRICA) 8-12 le} capsule by ity o f 100 mg 00:00: mouth. [place] capsule Medical [facility] pregabalin 2019-0 Yes 1{capsu Take 1 [facility] (LYRICA) 8-12 le} capsule by ity o f 100 mg 00:00: mouth. [place] capsule Medical [facility] pregabalin 2018-0 Yes 1{capsu Take 1 [facility] (LYRICA) 8-12 le} capsule by ity o f 100 mg 00:00: mouth. [place] capsule [facility] pregabalin 0 Yes 1{capsu Take 1 [facility] (LYRICA) 8-12 le} capsule by ity o f 100 mg 00:00: mouth. [place] capsule [facility] pregabalin 2019-0 Yes 1{capsu Take 1 [facility] (LYRICA) 8-12 le} capsule by ity o f 100 mg 00:00: mouth. [place] capsule [facility] pregabalin 2019-0 Yes 1{capsu Take 1 [facility] (LYRICA) 8-12 le} capsule by ity o f 100 mg 00:00: mouth. [place] capsule Medical [facility] pregabalin 2019-0 Yes 1{capsu Take 1 [facility] (LYRICA) 8-12 le} capsule by ity o f 100 mg 00:00: mouth. [place] capsule [facility] pregabalin 2019-0 Yes 1{capsu Take 1 [facility] (LYRICA) 8-12 le} capsule by ity o f 100 mg 00:00: mouth. [place] capsule Medical [facility] pregabalin 2019-0 Yes 1{capsu Take 1 [facility] (LYRICA) 8-12 le} capsule by ity o f 100 mg 00:00: mouth. [place] capsule [facility] pregabalin 2019-0 Yes 1{capsu Take 1 [facility] (LYRICA) 8-12 le} capsule by ity o f 100 mg 00:00: mouth. [place] capsule Medical [facility] pregabalin 2018-0 Yes 1{capsu Take 1 [facility] (LYRICA) 8-12 le} capsule by ity o f 100 mg 00:00: mouth. [place] capsule Medical [facility] pregabalin 2019-0 Yes 1{capsu Take 1 [facility] (LYRICA) 8-12 le} capsule by ity o f 100 mg 00:00: mouth. [place] capsule [facility] pregabalin 2019-0 Yes 1{capsu Take 1 [facility] (LYRICA) 8-12 le} capsule by ity o f 100 mg 00:00: mouth. [place] capsule [facility] pregabalin 0 Yes 1{capsu Take 1 [facility] (LYRICA) 8-12 le} capsule by ity o f 100 mg 00:00: mouth. [place] capsule [facility] pregabalin 0 Yes 1{capsu Take 1 [facility] (LYRICA) 8-12 le} capsule by ity o f 100 mg 00:00: mouth. [place] capsule [facility] pregabalin 0 Yes 1{capsu Take 1 [facility] (LYRICA) 8-12 le} capsule by ity o f 100 mg 00:00: mouth. [place] capsule [facility] pregabalin 0 Yes 1{capsu Take 1 [facility] (LYRICA) 8-12 le} capsule by ity o f 100 mg 00:00: mouth. [place] capsule [facility] pregabalin 0 Yes 1{capsu Take 1 [facility] (LYRICA) 8-12 le} capsule by ity o f 100 mg 00:00: mouth. [place] capsule [facility] pregabalin 2019-0 Yes 1{capsu Take 1 [facility] (LYRICA) 8-12 le} capsule by ity o f 100 mg 00:00: mouth. [place] capsule [facility] pregabalin 2019-0 Yes 1{capsu Take 1 [facility] (LYRICA) 8-12 le} capsule by ity o f 100 mg 00:00: mouth. [place] capsule [facility] pregabalin 2018-0 Yes 1{capsu Take 1 [facility] (LYRICA) 8-12 le} capsule by ity o f 100 mg 00:00: mouth. [place] capsule [facility] pregabalin 2018-0 Yes 1{capsu Take 1 [facility] (LYRICA) 8-12 le} capsule by ity o f 100 mg 00:00: mouth. [place] capsule [facility] pregabalin [id number] Yes 1{capsu Take 1 [facility] (LYRICA) 8-12 le} capsule by ity o f 100 mg 00:00: mouth. [place] capsule [facility] pregabalin 0 Yes 1{capsu Take 1 [facility] (LYRICA) 8-12 le} capsule by ity o f 100 mg 00:00: mouth. [place] capsule [facility] pregabalin 0 Yes 1{capsu Take 1 [facility] (LYRICA) 8-12 le} capsule by ity o f 100 mg 00:00: mouth. [place] capsule [facility] pregabalin 0 Yes 1{capsu Take 1 [facility] (LYRICA) 8-12 le} capsule by ity o f 100 mg 00:00: mouth. [place] capsule [facility] pregabalin Yes 1{capsu Take 1 [facility] (LYRICA) 8-12 le} capsule by ity o f 100 mg 00:00: mouth. [place] capsule [facility] pregabalin Yes 1{capsu Take 1 [facility] (LYRICA) 8-12 le} capsule by ity o f 100 mg 00:00: mouth. [place] capsule [facility] pregabalin 0 Yes 1{capsu Take 1 [facility] (LYRICA) 8-12 le} capsule by ity o f 100 mg 00:00: mouth. [place] capsule [facility] pregabalin 2018-0 Yes 1{capsu Take 1 [facility] (LYRICA) 8-12 le} capsule by ity o f 100 mg 00:00: mouth. [place] capsule [facility] pregabalin 2018-0 Yes 1{capsu Take 1 [facility] (LYRICA) 8-12 le} capsule by ity o f 100 mg 00:00: mouth. [place] capsule [facility] pregabalin 2018-0 Yes 1{capsu Take 1 [facility] (LYRICA) 8-12 le} capsule by ity o f 100 mg 00:00: mouth. [place] capsule [facility] pregabalin 2018-0 Yes 1{capsu Take 1 [facility] (LYRICA) 8-12 le} capsule by ity o f 100 mg 00:00: mouth. [place] capsule [facility] pregabalin 2019-0 Yes 1{capsu Take 1 [facility] (LYRICA) 8-12 le} capsule by ity o f 100 mg 00:00: mouth. [place] capsule [facility] pregabalin 2019-0 Yes 1{capsu Take 1 [facility] (LYRICA) 8-12 le} capsule by ity o f 100 mg 00:00: mouth. capsule [facility] pregabalin 2019-0 Yes 1{capsu Take 1 [facility] (LYRICA) 8-12 le} capsule by ity o f 100 mg 00:00: mouth. capsule [facility] pregabalin 2018-0 Yes 1{capsu Take 1 [facility] (LYRICA) 8-12 le} capsule by ity o f 100 mg 00:00: mouth. [place] capsule [facility] pregabalin 2018-0 Yes 1{capsu Take 1 [facility] (LYRICA) 8-12 le} capsule by ity o f 100 mg 00:00: mouth. [place] capsule [facility] pregabalin 2018-0 Yes 1{capsu Take 1 [facility] (LYRICA) 8-12 le} capsule by ity o f 100 mg 00:00: mouth. [place] capsule [facility] pregabalin 2019-0 Yes 1{capsu Take 1 [facility] 100 mg 8-12 le} capsule by ity of capsule 00:00: mouth. [facility] pregabalin 2019-0 Yes 1{capsu Take 1 [facility] 100 mg 8-12 le} capsule by ity of capsule 00:00: mouth. [facility] pregabalin 2019-0 Yes 1{capsu Take 1 [facility] 100 mg 8-12 le} capsule by ity of capsule 00:00: mouth. [facility] pregabalin 2019-0 Yes 1{capsu Take 1 [facility] 100 mg 8-12 le} capsule by ity of capsule 00:00: mouth. [facility] pregabalin 2019-0 Yes 1{capsu Take 1 Un otoniel 100 mg 8-12 le} capsule by ity of capsule 00:00: mouth. [facility] pregabalin 2019-0 Yes 1{capsu Take 1 Un [facility] 100 mg 8-12 le} capsule by ity of capsule 00:00: mouth. [place] [facility] pregabalin Yes 1{capsu Take 1 Un o[facility] 100 mg 8-12 le} capsule by ity of capsule 00:00: mouth. [place] [facility] pregabalin Yes 1{capsu Take 1 Un [facility] 100 mg 8-12 le} capsule by ity of capsule 00:00: mouth. [place] [facility] pregabalin Yes 1{capsu Take 1 Un [facility] 100 mg 8-12 le} capsule by ity of capsule 00:00: mouth. [place] [facility] amitriptyli 2020- No [id number] 50mg Take 1 Tab [facility] ne (ELAVIL) 8-12 01-02 by mouth [facility] lege 50 MG 00:00: 00:00 nightly. of tablet 00 :00 Medicin e Catheter Yes [id number] Use as [facility] Fr Misc 7-24 directed ity of 00:00: Medical Branch Catheter 12 2018-0 Yes [id number] Use as [facility] Fr Misc 7-24 directed ity of 00:00: Medical Branch Catheter 12 2018-0 Yes [id number] Use as [facility] Fr Misc 7-24 directed ity of 00:00: Medical Branch Catheter 12 2018-0 Yes [id number] Use as [facility] Fr Misc 7-24 directed ity of 00:00: [place] [facility] Catheter 12 2018-0 Yes [id number] Use as [facility] Fr Misc 7-24 directed ity of 00:00: Medical Branch Catheter 12 2018-0 Yes [id number] Use as [facility] Fr Misc 7-24 directed ity of 00:00: Medical Branch Catheter 12 2018-0 Yes [id number] Use as [facility] Fr Misc 7-24 directed ity of 00:00: [place] [facility] Catheter 12 2018-0 Yes [id number] Use as [facility] Fr Misc 7-24 directed ity of 00:00: [place] [facility] Catheter 12 2018-0 Yes [id number] Use as [facility] Fr Misc 7-24 directed ity of 00:00: [place] [facility] Catheter 12 2018-0 Yes [id number] Use as [facility] Fr Misc 7-24 directed ity of 00:00: [place] [facility] Catheter 12 2019-0 Yes [id number] Use as [facility] Fr Misc 7-24 directed ity of 00:00: [place] 00 Medical [facility] Catheter 12 2019-0 Yes [id number] Use as [facility] Fr Misc 7-24 directed ity of 00:00: [place] [facility] Catheter 12 2019-0 Yes [id number] Use as [facility] Fr Misc 7-24 directed ity of 00:00: [place] [facility] Catheter 12 2019-0 Yes [id number] Use as [facility] Fr Misc 7-24 directed ity of 00:00: [place] [facility] Catheter 12 2019-0 Yes [id number] Use as [facility] Fr Misc 7-24 directed ity of 00:00: [place] [facility] Catheter 12 2019-0 Yes [id number] Use as [facility] Fr Misc 7-24 directed ity of 00:00: [place] [facility] Catheter 12 2019-0 Yes [id number] Use as [facility] Fr Misc 7-24 directed ity of 00:00: [place] [facility] Catheter 12 2019-0 Yes [id number] Use as [facility] Fr Misc 7-24 directed ity of 00:00: [place] [facility] Catheter 12 2019-0 Yes [id number] Use as [facility] Fr Misc 7-24 directed ity of 00:00: [place] [facility] Catheter 12 2019-0 Yes [id number] Use as [facility] Fr Misc 7-24 directed ity of 00:00: [place] [facility] Catheter 12 2019-0 Yes [id number] Use as [facility] Fr Misc 7-24 directed ity of 00:00: [place] [facility] Catheter 12 2019-0 Yes [id number] Use as [facility] Fr Misc 7-24 directed ity of 00:00: [place] [facility] Catheter 12 2019-0 Yes [id number] Use as [facility] Fr Misc 7-24 directed ity of 00:00: [place] [facility] Catheter 12 2019-0 Yes [id number] Use as [facility] Fr Misc 7-24 directed ity of 00:00: [place] [facility] Catheter 12 2019-0 Yes [id number] Use as [facility] Fr Misc 7-24 directed ity of 00:00: [place] [facility] Catheter 12 2019-0 Yes [id number] Use as [facility] Fr Misc 7-24 directed ity of 00:00: [place] [facility] Catheter 12 2019-0 Yes [id number] Use as [facility] Fr Misc 7-24 directed ity of 00:00: [place] [facility] Catheter 12 2019-0 Yes [id number] Use as [facility] Fr Misc 7-24 directed ity of 00:00: [place] [facility] Catheter 12 2019-0 Yes [id number] Use as [facility] Fr Misc 7-24 directed ity of 00:00: [place] [facility] Catheter 12 2019-0 Yes [id number] Use as [facility] Fr Misc 7-24 directed ity of 00:00: [place] [facility] Catheter 12 2019-0 Yes [id number] Use as [facility] Fr Misc 7-24 directed ity of 00:00: [place] [facility] Catheter 12 2019-0 Yes [id number] Use as [facility] Fr Misc 7-24 directed ity of 00:00: [place] [facility] Catheter 12 2019-0 Yes [id number] Use as [facility] Fr Misc 7-24 directed ity of 00:00: [place] [facility] Catheter 12 2019-0 Yes [id number] Use as [facility] Fr Misc 7-24 directed ity of 00:00: [place] [facility] Catheter 12 2019-0 Yes [id number] Use as [facility] Fr Misc 7-24 directed ity of 00:00: [place] [facility] Catheter 12 2019-0 Yes [id number] Use as [facility] Fr Misc 7-24 directed ity of 00:00: [place] [facility] Catheter 12 2019-0 Yes [id number] Use as [facility] Fr Misc 7-24 directed ity of 00:00: [place] [facility] Catheter 12 2019-0 Yes [id number] Use as [facility] Fr Misc 7-24 directed ity of 00:00: [place] [facility] Catheter 12 2019-0 Yes [id number] Use as [facility] Fr Misc 7-24 directed ity of 00:00: [place] [facility] Catheter 12 2019-0 Yes [id number] Use as [facility] Fr Misc 7-24 directed ity of 00:00: [place] [facility] Catheter 12 2019-0 Yes [id number] Use as [facility] Fr Misc 7-24 directed ity of 00:00: [place] [facility] Catheter 12 2019-0 Yes [id number] Use as [facility] Fr Misc 7-24 directed ity of 00:00: [place] [facility] Catheter 12 2019-0 Yes [id number] Use as [facility] Fr Misc 7-24 directed ity of 00:00: [place] [facility] Catheter 12 2019-0 Yes [id number] Use as [facility] Fr Misc 7-24 directed ity of 00:00: [place] 00 Medical Branch Catheter 12 2019-0 Yes [id number] Use as [facility] Fr Misc 7-24 directed ity of 00:00: [place] 00 Medical Branch Catheter 12 2019-0 Yes [id number] Use as [facility] Fr Misc 7-24 directed ity of 00:00: [place] 00 Medical Branch Catheter 12 2019-0 Yes [id number] Use as [facility] Fr Misc 7-24 directed ity of 00:00: [place] [facility] Catheter 12 2019-0 Yes [id number] Use as [facility] Fr Misc 7-24 directed ity of 00:00: [place] [facility] Catheter 12 2019-0 Yes [id number] Use as [facility] Fr Misc 7-24 directed ity of 00:00: [place] [facility] Catheter 12 2019-0 Yes [id number] Use as [facility] Fr Misc 7-24 directed ity of 00:00: [place] [facility] Catheter 12 2019-0 Yes [id number] Use as [facility] Fr Misc 7-24 directed ity of 00:00: [place] [facility] Catheter 12 2019-0 Yes [id number] Use as [facility] Fr Misc 7-24 directed ity of 00:00: [place] 00 Medical Branch Catheter 12 2019-0 Yes [id number] Use as [facility] Fr Misc 7-24 directed ity of 00:00: [place] 00 Medical Branch Catheter 12 2019-0 Yes [id number] Use as [facility] Fr Misc 7-24 directed ity of 00:00: [place] 00 [facility] Branch Catheter 12 2019-0 Yes [id number] Use as [facility] Fr Misc 7-24 directed ity of 00:00: [place] [facility] Catheter 12 2019-0 Yes [id number] Use as [facility] Fr Misc 7-24 directed ity of 00:00: [place] 00 [facility] Branch Catheter 12 2019-0 Yes [id number] Use as [facility] Fr Misc 7-24 directed ity of 00:00: [place] 00 [facility] Branch Catheter 12 2019-0 Yes [id number] Use as [facility] Fr Misc 7-24 directed ity of 00:00: [place] 00 Medical Branch Catheter 12 2019-0 Yes [id number] Use as [facility] Fr Misc 7-24 directed ity of 00:00: [place] 00 [facility] Branch Catheter 12 2019-0 Yes [id number] Use as [facility] Fr Misc 7-24 directed ity of 00:00: [place] 00 [facility] Branch Catheter 12 2019-0 Yes [id number] Use as [facility] Fr Misc 7-24 directed ity of 00:00: [place] 00 [facility] Branch Catheter 12 2019-0 Yes [id number] Use as [facility] Fr Misc 7-24 directed ity of 00:00: [place] [facility] Catheter 12 2019-0 Yes [id number] Use as [facility] Fr Misc 7-24 directed ity of 00:00: [place] [facility] Catheter 12 2019-0 Yes [id number] Use as [facility] Fr Misc 7-24 directed ity of 00:00: [place] [facility] Catheter 12 2019-0 Yes [id number] Use as [facility] Fr Misc 7-24 directed ity of 00:00: [place] [facility] Catheter 12 2019-0 Yes [id number] Use as [facility] Fr Misc 7-24 directed ity of 00:00: [place] [facility] Catheter 12 2019-0 Yes [id number] Use as [facility] Fr Misc 7-24 directed ity of 00:00: [place] [facility] Catheter 12 2019-0 Yes [id number] Use as [facility] Fr Misc 7-24 directed ity of 00:00: [place] [facility] Catheter 12 2019-0 Yes [id number] Use as [facility] Fr Misc 7-24 directed ity of 00:00: [place] [facility] Catheter 12 2019-0 Yes [id number] Use as [facility] Fr Misc 7-24 directed ity of 00:00: [place] [facility] Catheter 12 2019-0 Yes [id number] Use as [facility] Fr Misc 7-24 directed ity of 00:00: [place] [facility] Catheter 12 2019-0 Yes [id number] Use as [facility] Fr Misc 7-24 directed ity of 00:00: [place] [facility] Catheter 12 2019-0 Yes [id number] Use as [facility] Fr Misc 7-24 directed ity of 00:00: [place] [facility] Catheter 12 2019-0 Yes [id number] Use as [facility] Fr Misc 7-24 directed ity of 00:00: [place] [facility] Catheter 12 2019-0 Yes [id number] Use as [facility] Fr Misc 7-24 directed ity of 00:00: [place] [facility] Catheter 12 2019-0 Yes [id number] Use as [facility] Fr Misc 7-24 directed ity of 00:00: [place] [facility] Catheter 12 2019-0 Yes [id number] Use as [facility] Fr Misc 7-24 directed ity of 00:00: [place] [facility] Catheter 12 2019-0 Yes [id number] Use as [facility] Fr Misc 7-24 directed ity of 00:00: [place] [facility] Catheter 12 2019-0 Yes [id number] Use as [facility] Fr Misc 7-24 directed ity of 00:00: [place] [facility] Catheter 12 2019-0 Yes [id number] Use as [facility] Fr Misc 7-24 directed ity of 00:00: [place] [facility] Catheter 12 2019-0 Yes [id number] Use as [facility] Fr Misc 7-24 directed ity of 00:00: [place] [facility] Catheter 12 2019-0 Yes [id number] Use as [facility] Fr Misc 7-24 directed ity of 00:00: [place] [facility] Catheter 12 2019-0 Yes [id number] Use as [facility] Fr Misc 7-24 directed ity of 00:00: [place] [facility] Catheter 12 2019-0 Yes [id number] Use as [facility] Fr Misc 7-24 directed ity of 00:00: [place] [facility] Catheter 12 2019-0 Yes [id number] Use as [facility] Fr Misc 7-24 directed ity of 00:00: [place] [facility] Catheter 12 2019-0 Yes [id number] Use as [facility] Fr Misc 7-24 directed ity of 00:00: [place] [facility] Catheter 12 2019-0 Yes [id number] Use as [facility] Fr Misc 7-24 directed ity of 00:00: [place] [facility] Catheter 12 2019-0 Yes [id number] Use as [facility] Fr Misc 7-24 directed ity of 00:00: [place] [facility] Catheter 12 2019-0 Yes [id number] Use as [facility] Fr Misc 7-24 directed ity of 00:00: [place] [facility] Catheter 12 2019-0 Yes [id number] Use as [facility] Fr Misc 7-24 directed ity of 00:00: [place] [facility] Catheter 12 2019-0 Yes [id number] Use as [facility] Fr Misc 7-24 directed ity of 00:00: [place] [facility] Catheter 12 2019-0 Yes [id number] Use as [facility] Fr Misc 7-24 directed ity of 00:00: [place] [facility] Catheter 12 2019-0 Yes [id number] Use as [facility] Fr Misc 7-24 directed ity of 00:00: [place] [facility] Catheter 12 2019-0 Yes [id number] Use as [facility] Fr Misc 7-24 directed ity of 00:00: [place] 00 [facility] Branch Catheter 12 2019-0 Yes [id number] Use as [facility] Fr Misc 7-24 directed ity of 00:00: [place] 00 [facility] Branch Catheter 12 2019-0 Yes [id number] Use as [facility] Fr Misc 7-24 directed ity of 00:00: [place] [facility] Catheter 12 2019-0 Yes [id number] Use as [facility] Fr Misc 7-24 directed ity of 00:00: [place] [facility] Catheter 12 2019-0 Yes [id number] Use as [facility] Fr Misc 7-24 directed ity of 00:00: [place] [facility] Catheter 12 2019-0 Yes [id number] Use as [facility] Fr Misc 7-24 directed ity of 00:00: [place] [facility] Catheter 12 2018-0 Yes [id number] Use as [facility] Fr Misc 7-24 directed ity of 00:00: [place] [facility] Catheter 12 2019-0 Yes [id number] Use as [facility] Fr Misc 7-24 directed ity of 00:00: [place] [facility] Catheter 12 2019-0 Yes [id number] Use as [facility] Fr Misc 7-24 directed ity of 00:00: [place] 00 Medical Branch Catheter 12 2019-0 Yes [id number] Use as [facility] Fr Misc 7-24 directed ity of 00:00: [place] 00 Medical Branch Catheter 12 2019-0 Yes [id number] Use as [facility] Fr Misc 7-24 directed ity of 00:00: [place] [facility] Catheter 12 2019-0 Yes [id number] Use as [facility] Fr Misc 7-24 directed ity of 00:00: [place] [facility] Catheter 12 2019-0 Yes [id number] Use as [facility] Fr Misc 7-24 directed ity of 00:00: [place] 00 [facility] Branch traMADOL 2019-0 Yes [id number] 50mg Take 1 Univers (ULTRAM) 50 7-13 109 tablet by ity of mg tablet 00:00: mouth [place] 00 every 6 Medical (six) Branch hours as needed for Pain (scale 7-10). traMADOL 2019-0 Yes [id number] 50mg Take 1 Univers (ULTRAM) 50 7-13 109 tablet by ity of mg tablet 00:00: mouth [place] [address] every 6 Medical (six) Branch hours as needed for Pain (scale 7-10). traMADOL 2018-0 Yes [id number] 50mg Take 1 Univers (ULTRAM) 50 7-13 109 tablet by ity of mg tablet 00:00: mouth [place] 00 every 6 Medical (six) Branch hours as needed for Pain (scale 7-10). traMADOL 2019-0 Yes [id number] 50mg Take 1 Univers (ULTRAM) 50 7-13 109 tablet by ity of mg tablet 00:00: mouth [place] 00 every 6 Medical (six) Branch hours as needed for Pain (scale 7-10). traMADOL 2019-0 Yes [id number] 50mg Take 1 Univers (ULTRAM) 50 7-13 109 tablet by ity of mg tablet 00:00: mouth [place] 00 every 6 Medical (six) Branch hours as needed for Pain (scale 7-10). traMADOL 2019-0 Yes [id number] 50mg Take 1 Univers (ULTRAM) 50 7-13 109 tablet by ity of mg tablet 00:00: mouth [place] 00 every 6 Medical (six) Branch hours as needed for Pain (scale 7-10). traMADOL 2019-0 Yes [id number] 50mg Take 1 Univers (ULTRAM) 50 7-13 109 tablet by ity of mg tablet 00:00: mouth [place] 00 every 6 Medical (six) Branch hours as needed for Pain (scale 7-10). traMADOL 2019-0 Yes [id number] 50mg Take 1 Univers (ULTRAM) 50 7-13 109 tablet by ity of mg tablet 00:00: mouth [place] 00 every 6 Medical (six) Branch hours as needed for Pain (scale 7-10). traMADOL 2019-0 Yes [id number] 50mg Take 1 Univers (ULTRAM) 50 7-13 109 tablet by ity of mg tablet 00:00: mouth [place] 00 every 6 Medical (six) Branch hours as needed for Pain (scale 7-10). traMADOL 2019-0 Yes [id number] 50mg Take 1 Univers (ULTRAM) 50 7-13 109 tablet by ity of mg tablet 00:00: mouth [place] 00 every 6 Medical (six) Branch hours as needed for Pain (scale 7-10). traMADOL 2019-0 Yes [id number] 50mg Take 1 Univers (ULTRAM) 50 7-13 109 tablet by ity of mg tablet 00:00: mouth [place] 00 every 6 Medical (six) Branch hours as needed for Pain (scale 7-10). traMADOL 2019-0 Yes [id number] 50mg Take 1 Univers (ULTRAM) 50 7-13 109 tablet by ity of mg tablet 00:00: mouth [place] 00 every 6 Medical (six) Branch hours as needed for Pain (scale 7-10). traMADOL 2019-0 Yes [id number] 50mg Take 1 Univers (ULTRAM) 50 7-13 109 tablet by ity of mg tablet 00:00: mouth [place] 00 every 6 Medical (six) Branch hours as needed for Pain (scale 7-10). traMADOL 2019-0 Yes [id number] 50mg Take 1 Univers (ULTRAM) 50 7-13 109 tablet by ity of mg tablet 00:00: mouth [place] 00 every 6 Medical (six) Branch hours as needed for Pain (scale 7-10). traMADOL 2019-0 Yes [id number] 50mg Take 1 Univers (ULTRAM) 50 7-13 109 tablet by ity of mg tablet 00:00: mouth [place] 00 every 6 Medical (six) Branch hours as needed for Pain (scale 7-10). traMADOL 2019-0 Yes [id number] 50mg Take 1 Univers (ULTRAM) 50 7-13 109 tablet by ity of mg tablet 00:00: mouth [place] 00 every 6 Medical (six) Branch hours as needed for Pain (scale 7-10). traMADOL 2019-0 Yes [id number] 50mg Take 1 Univers (ULTRAM) 50 7-13 109 tablet by ity of mg tablet 00:00: mouth [place] 00 every 6 Medical (six) Branch hours as needed for Pain (scale 7-10). traMADOL 2019-0 Yes [id number] 50mg Take 1 Univers (ULTRAM) 50 7-13 109 tablet by ity of mg tablet 00:00: mouth [place] 00 every 6 Medical (six) Branch hours as needed for Pain (scale 7-10). traMADOL 2019-0 Yes [id number] 50mg Take 1 Univers (ULTRAM) 50 7-13 109 tablet by ity of mg tablet 00:00: mouth [place] 00 every 6 Medical (six) Branch hours as needed for Pain (scale 7-10). traMADOL 2019-0 Yes [id number] 50mg Take 1 Univers (ULTRAM) 50 7-13 109 tablet by ity of mg tablet 00:00: mouth [place] 00 every 6 Medical (six) Branch hours as needed for Pain (scale 7-10). traMADOL 2019-0 Yes [id number] 50mg Take 1 Univers (ULTRAM) 50 7-13 109 tablet by ity of mg tablet 00:00: mouth [place] 00 every 6 Medical (six) Branch hours as needed for Pain (scale 7-10). traMADOL 2019-0 Yes [id number] 50mg Take 1 Univers (ULTRAM) 50 7-13 109 tablet by ity of mg tablet 00:00: mouth [place] 00 every 6 Medical (six) Branch hours as needed for Pain (scale 7-10). traMADOL 2019-0 Yes [id number] 50mg Take 1 Univers (ULTRAM) 50 7-13 109 tablet by ity of mg tablet 00:00: mouth [place] 00 every 6 Medical (six) Branch hours as needed for Pain (scale 7-10). traMADOL 2019-0 Yes [id number] 50mg Take 1 Univers (ULTRAM) 50 7-13 109 tablet by ity of mg tablet 00:00: mouth [place] 00 every 6 Medical (six) Branch hours as needed for Pain (scale 7-10). traMADOL 2019-0 Yes [id number] 50mg Take 1 Univers (ULTRAM) 50 7-13 109 tablet by ity of mg tablet 00:00: mouth [place] 00 every 6 Medical (six) Branch hours as needed for Pain (scale 7-10). traMADOL 2019-0 Yes [id number] 50mg Take 1 Univers (ULTRAM) 50 7-13 109 tablet by ity of mg tablet 00:00: mouth [place] 00 every 6 Medical (six) Branch hours as needed for Pain (scale 7-10). traMADOL 2019-0 Yes [id number] 50mg Take 1 Univers (ULTRAM) 50 7-13 109 tablet by ity of mg tablet 00:00: mouth [place] 00 every 6 Medical (six) Branch hours as needed for Pain (scale 7-10). traMADOL 2019-0 Yes [id number] 50mg Take 1 Univers (ULTRAM) 50 7-13 109 tablet by ity of mg tablet 00:00: mouth [place] 00 every 6 Medical (six) Branch hours as needed for Pain (scale 7-10). traMADOL 2019-0 Yes [id number] 50mg Take 1 Univers (ULTRAM) 50 7-13 109 tablet by ity of mg tablet 00:00: mouth [place] 00 every 6 Medical (six) Branch hours as needed for Pain (scale 7-10). traMADOL 2019-0 Yes [id number] 50mg Take 1 Univers (ULTRAM) 50 7-13 109 tablet by ity of mg tablet 00:00: mouth [place] 00 every 6 Medical (six) Branch hours as needed for Pain (scale 7-10). traMADOL 2019-0 Yes [id number] 50mg Take 1 Univers (ULTRAM) 50 7-13 109 tablet by ity of mg tablet 00:00: mouth [place] 00 every 6 Medical (six) Branch hours as needed for Pain (scale 7-10). traMADOL 2019-0 Yes [id number] 50mg Take 1 Univers (ULTRAM) 50 7-13 109 tablet by ity of mg tablet 00:00: mouth [place] 00 every 6 Medical (six) Branch hours as needed for Pain (scale 7-10). traMADOL 2019-0 Yes [id number] 50mg Take 1 Univers (ULTRAM) 50 7-13 109 tablet by ity of mg tablet 00:00: mouth [place] 00 every 6 Medical (six) Branch hours as needed for Pain (scale 7-10). traMADOL 2019-0 Yes [id number] 50mg Take 1 Univers (ULTRAM) 50 7-13 109 tablet by ity of mg tablet 00:00: mouth [place] 00 every 6 Medical (six) Branch hours as needed for Pain (scale 7-10). traMADOL 2019-0 Yes [id number] 50mg Take 1 Univers (ULTRAM) 50 7-13 109 tablet by ity of mg tablet 00:00: mouth [place] 00 every 6 Medical (six) Branch hours as needed for Pain (scale 7-10). traMADOL 2019-0 Yes [id number] 50mg Take 1 [facility] (ULTRAM) 50 7-13 109 tablet by ity of mg tablet 00:00: mouth [place] 00 every 6 Medical (six) Branch hours as needed for Pain (scale 7-10). traMADOL 2019-0 Yes [id number] 50mg Take 1 Univers (ULTRAM) 50 7-13 109 tablet by ity of mg tablet 00:00: mouth [place] 00 every 6 Medical (six) Branch hours as needed for Pain (scale 7-10). traMADOL 2019-0 Yes [id number] 50mg Take 1 Univers (ULTRAM) 50 7-13 109 tablet by ity of mg tablet 00:00: mouth [place] 00 every 6 Medical (six) Branch hours as needed for Pain (scale 7-10). traMADOL 2019-0 Yes [id number] 50mg Take 1 Univers (ULTRAM) 50 7-13 109 tablet by ity of mg tablet 00:00: mouth [place] 00 every 6 Medical (six) Branch hours as needed for Pain (scale 7-10). traMADOL 2019-0 Yes [id number] 50mg Take 1 Univers (ULTRAM) 50 7-13 109 tablet by ity of mg tablet 00:00: mouth [place] 00 every 6 Medical (six) Branch hours as needed for Pain (scale 7-10). traMADOL 2019-0 Yes [id number] 50mg Take 1 [facility] (ULTRAM) 50 7-13 109 tablet by ity of mg tablet 00:00: mouth [place] 00 every 6 Medical (six) Branch hours as needed for Pain (scale 7-10). traMADOL 2019-0 Yes [id number] 50mg Take 1 [facility] (ULTRAM) 50 7-13 109 tablet by ity of mg tablet 00:00: mouth [place] 00 every 6 Medical (six) Branch hours as needed for Pain (scale 7-10). traMADOL 2019-0 Yes [id number] 50mg Take 1 [facility] (ULTRAM) 50 7-13 109 tablet by ity of mg tablet 00:00: mouth [place] 00 every 6 Medical (six) Branch hours as needed for Pain (scale 7-10). traMADOL 2019-0 Yes [id number] 50mg Take 1 [facility] (ULTRAM) 50 7-13 109 tablet by ity of mg tablet 00:00: mouth [place] 00 every 6 Medical (six) Branch hours as needed for Pain (scale 7-10). traMADOL 2019-0 Yes [id number] 50mg Take 1 Univers (ULTRAM) 50 7-13 109 tablet by ity of mg tablet 00:00: mouth [place] 00 every 6 Medical (six) Branch hours as needed for Pain (scale 7-10). traMADOL 2019-0 Yes [id number] 50mg Take 1 [facility] (ULTRAM) 50 7-13 109 tablet by ity of mg tablet 00:00: mouth [place] 00 every 6 Medical (six) Branch hours as needed for Pain (scale 7-10). traMADOL 2019-0 Yes [id number] 50mg Take 1 Univers (ULTRAM) 50 7-13 109 tablet by ity of mg tablet 00:00: mouth [place] 00 every 6 Medical (six) Branch hours as needed for Pain (scale 7-10). traMADOL 2019-0 Yes [id number] 50mg Take 1 [facility] (ULTRAM) 50 7-13 109 tablet by ity of mg tablet 00:00: mouth [place] 00 every 6 Medical (six) Branch hours as needed for Pain (scale 7-10). traMADOL 2019-0 Yes [id number] 50mg Take 1 [facility] (ULTRAM) 50 7-13 109 tablet by ity of mg tablet 00:00: mouth [place] 00 every 6 Medical (six) Branch hours as needed for Pain (scale 7-10). traMADOL 2019-0 Yes [id number] 50mg Take 1 [facility] (ULTRAM) 50 7-13 109 tablet by ity of mg tablet 00:00: mouth [place] 00 every 6 Medical (six) Branch hours as needed for Pain (scale 7-10). traMADOL 2019-0 Yes [id number] 50mg Take 1 [facility] (ULTRAM) 50 7-13 109 tablet by ity of mg tablet 00:00: mouth [place] 00 every 6 Medical (six) Branch hours as needed for Pain (scale 7-10). traMADOL 2019-0 Yes [id number] 50mg Take 1 [facility] (ULTRAM) 50 7-13 109 tablet by ity of mg tablet 00:00: mouth [place] 00 every 6 Medical (six) Branch hours as needed for Pain (scale 7-10). traMADOL 2019-0 Yes [id number] 50mg Take 1 [facility] (ULTRAM) 50 7-13 109 tablet by ity of mg tablet 00:00: mouth [place] 00 every 6 Medical (six) Branch hours as needed for Pain (scale 7-10). traMADOL 2019-0 Yes [id number] 50mg Take 1 [facility] (ULTRAM) 50 7-13 109 tablet by ity of mg tablet 00:00: mouth [place] 00 every 6 Medical (six) Branch hours as needed for Pain (scale 7-10). traMADOL 2019-0 Yes [id number] 50mg Take 1 [facility] (ULTRAM) 50 7-13 109 tablet by ity of mg tablet 00:00: mouth [place] 00 every 6 Medical (six) Branch hours as needed for Pain (scale 7-10). traMADOL 2019-0 Yes [id number] 50mg Take 1 [facility] (ULTRAM) 50 7-13 109 tablet by ity of mg tablet 00:00: mouth [place] 00 every 6 Medical (six) Branch hours as needed for Pain (scale 7-10). traMADOL 2019-0 Yes [id number] 50mg Take 1 [facility] (ULTRAM) 50 7-13 109 tablet by ity of mg tablet 00:00: mouth [place] 00 every 6 Medical (six) Branch hours as needed for Pain (scale 7-10). traMADOL 2019-0 Yes [id number] 50mg Take 1 [facility] (ULTRAM) 50 7-13 109 tablet by ity of mg tablet 00:00: mouth [place] 00 every 6 Medical (six) Branch hours as needed for Pain (scale 7-10). traMADOL 2019-0 Yes [id number] 50mg Take 1 [facility] (ULTRAM) 50 7-13 109 tablet by ity of mg tablet 00:00: mouth [place] 00 every 6 Medical (six) Branch hours as needed for Pain (scale 7-10). traMADOL 2019-0 Yes [id number] 50mg Take 1 [facility] (ULTRAM) 50 7-13 109 tablet by ity of mg tablet 00:00: mouth [place] 00 every 6 Medical (six) Branch hours as needed for Pain (scale 7-10). traMADOL 2019-0 Yes [id number] 50mg Take 1 [facility] (ULTRAM) 50 7-13 109 tablet by ity of mg tablet 00:00: mouth [place] 00 every 6 Medical (six) Branch hours as needed for Pain (scale 7-10). traMADOL 2019-0 Yes [id number] 50mg Take 1 [facility] (ULTRAM) 50 7-13 109 tablet by ity of mg tablet 00:00: mouth [place] 00 every 6 Medical (six) Branch hours as needed for Pain (scale 7-10). traMADOL 2019-0 Yes [id number] 50mg Take 1 [facility] (ULTRAM) 50 7-13 109 tablet by ity of mg tablet 00:00: mouth [place] 00 every 6 Medical (six) Branch hours as needed for Pain (scale 7-10). traMADOL 2019-0 Yes [id number] 50mg Take 1 [facility] 50 7-13 109 tablet by [facility] tablet 00:00: mouth [place] 00 every 6 Medical (six) Branch hours as needed for Pain (scale 7-10). traMADOL 2019-0 Yes [id number] 50mg Take 1 [facility] (ULTRAM) 50 7-13 109 tablet by [facility] mg tablet 00:00: mouth [place] 00 every 6 Medical (six) Branch hours as needed for Pain (scale 7-10). traMADOL 2019-0 Yes [id number] 50mg Take 1 [facility] (ULTRAM) 50 7-13 109 tablet by [facility] mg tablet 00:00: mouth [place] 00 every 6 Medical (six) Branch hours as needed for Pain (scale 7-10). traMADOL 2019-0 Yes [id number] 50mg Take 1 [facility] (ULTRAM) 50 7-13 109 tablet by [facility] mg tablet 00:00: mouth [place] 00 every 6 Medical (six) Branch hours as needed for Pain (scale 7-10). traMADOL 2019-0 Yes [id number] 50mg Take 1 [facility] (ULTRAM) 50 7-13 109 tablet by [facility] mg tablet 00:00: mouth [place] 00 every 6 Medical (six) Branch hours as needed for Pain (scale 7-10). traMADOL 2019-0 Yes [id number] 50mg Take 1 [facility] (ULTRAM) 50 7-13 109 tablet by [facility] mg tablet 00:00: mouth [place] 00 every 6 Medical (six) Branch hours as needed for Pain (scale 7-10). traMADOL 2019-0 Yes [id number] 50mg Take 1 [facility] (ULTRAM) 50 7-13 109 tablet by [facility] tablet 00:00: mouth [place] 00 every 6 Medical (six) Branch hours as needed for Pain (scale 7-10). traMADOL 2019-0 Yes [id number] 50mg Take 1 [facility] (ULTRAM) 50 7-13 109 tablet by [facility] mg tablet 00:00: mouth [place] 00 every 6 Medical (six) Branch hours as needed for Pain (scale 7-10). traMADOL 2019-0 Yes [id number] 50mg Take 1 [facility] (ULTRAM) 50 7-13 109 tablet by [facility] tablet 00:00: mouth [place] 00 every 6 Medical (six) Branch hours as needed for Pain (scale 7-10). traMADOL 2019-0 Yes [id number] 50mg Take 1 [facility] (ULTRAM) 50 7-13 109 tablet by [facility] mg tablet 00:00: mouth [place] 00 every 6 Medical (six) Branch hours as needed for Pain (scale 7-10). traMADOL 2019-0 Yes [id number] 50mg Take 1 [facility] (ULTRAM) 50 7-13 109 tablet by [facility] tablet 00:00: mouth [place] 00 every 6 Medical (six) Branch hours as needed for Pain (scale 7-10). traMADOL 2019-0 Yes [id number] 50mg Take 1 [facility] (ULTRAM) 50 7-13 109 tablet by [facility] tablet 00:00: mouth [place] 00 every 6 Medical (six) Branch hours as needed for Pain (scale 7-10). traMADOL 2019-0 Yes [id number] 50mg Take 1 [facility] (ULTRAM) 50 7-13 109 tablet by [facility] tablet 00:00: mouth [place] 00 every 6 Medical (six) Branch hours as needed for Pain (scale 7-10). traMADOL 2019-0 Yes [id number] 50mg Take 1 [facility] (ULTRAM) 50 7-13 109 tablet by [facility] tablet 00:00: mouth [place] 00 every 6 Medical (six) Branch hours as needed for Pain (scale 7-10). traMADOL 2019-0 Yes [id number] 50mg Take 1 [facility] (ULTRAM) 50 7-13 109 tablet by [facility] tablet 00:00: mouth [place] 00 every 6 Medical (six) Branch hours as needed for Pain (scale 7-10). traMADOL 2019-0 Yes [id number] 50mg Take 1 [facility] (ULTRAM) 50 7-13 109 tablet by [facility] tablet 00:00: mouth [place] 00 every 6 Medical (six) Branch hours as needed for Pain (scale 7-10). traMADOL 2019-0 Yes [id number] 50mg Take 1 [facility] (ULTRAM) 50 7-13 109 tablet by [facility] mg tablet 00:00: mouth [place] 00 every 6 Medical (six) Branch hours as needed for Pain (scale 7-10). traMADOL 2019-0 Yes [id number] 50mg Take 1 [facility] (ULTRAM) 50 7-13 109 tablet by [facility] mg tablet 00:00: mouth [place] 00 every 6 Medical (six) Branch hours as needed for Pain (scale 7-10). traMADOL 2019-0 Yes [id number] 50mg Take 1 [facility] (ULTRAM) 50 7-13 109 tablet by [facility] mg tablet 00:00: mouth [place] 00 every 6 Medical (six) Branch hours as needed for Pain (scale 7-10). traMADOL 2019-0 Yes [id number] 50mg Take 1 [facility] (ULTRAM) 50 7-13 109 tablet by [facility] mg tablet 00:00: mouth [place] 00 every 6 Medical (six) Branch hours as needed for Pain (scale 7-10). traMADOL 2019-0 Yes [id number] 50mg Take 1 [facility] (ULTRAM) 50 7-13 109 tablet by [facility] mg tablet 00:00: mouth [place] 00 every 6 Medical (six) Branch hours as needed for Pain (scale 7-10). traMADOL 2019-0 Yes [id number] 50mg Take 1 [facility] (ULTRAM) 50 7-13 109 tablet by [facility] tablet 00:00: mouth [place] 00 every 6 Medical (six) Branch hours as needed for Pain (scale 7-10). traMADOL 2019-0 Yes [id number] 50mg Take 1 [facility] (ULTRAM) 50 7-13 109 tablet by [facility] tablet 00:00: mouth [place] 00 every 6 Medical (six) Branch hours as needed for Pain (scale 7-10). traMADOL 2019-0 Yes [id number] 50mg Take 1 [facility] (ULTRAM) 50 7-13 109 tablet by [facility] tablet 00:00: mouth [place] 00 every 6 Medical (six) Branch hours as needed for Pain (scale 7-10). traMADOL 2019-0 Yes [id number] 50mg Take 1 [facility] (ULTRAM) 50 7-13 109 tablet by [facility] tablet 00:00: mouth [place] 00 every 6 Medical (six) Branch hours as needed for Pain (scale 7-10). traMADOL 2019-0 Yes [id number] 50mg Take 1 [facility] (ULTRAM) 50 7-13 109 tablet by [facility] tablet 00:00: mouth [place] 00 every 6 Medical (six) Branch hours as needed for Pain (scale 7-10). traMADOL 2019-0 Yes [id number] 50mg Take 1 [facility] (ULTRAM) 50 7-13 109 tablet by [facility] mg tablet 00:00: mouth [place] 00 every 6 Medical (six) Branch hours as needed for Pain (scale 7-10). traMADOL 2019 Yes [id number] 50mg Take 1 [facility] (ULTRAM) 50 7-13 109 tablet by [facility] tablet 00:00: mouth [place] 00 every 6 Medical (six) Branch hours as needed for Pain (scale 7-10). traMADOL 20190 Yes [id number] 50mg Take 1 [facility] (ULTRAM) 50 7-13 109 tablet by [facility] mg tablet 00:00: mouth [place] 00 every 6 Medical (six) Branch hours as needed for Pain (scale 7-10). traMADOL 0 Yes [id number] 50mg Take 1 [facility] (ULTRAM) 50 7-13 109 tablet by [facility] mg tablet 00:00: mouth [place] 00 every 6 Medical (six) Branch hours as needed for Pain (scale 7-10). traMADOL 0 Yes [id number] 50mg Take 1 [facility] (ULTRAM) 50 7-13 109 tablet by [facility] tablet 00:00: mouth [place] 00 every 6 Medical (six) Branch hours as needed for Pain (scale 7-10). traMADOL Yes [id number] 50mg Take 1 [facility] (ULTRAM) 50 7-13 109 tablet by [facility] tablet 00:00: mouth [place] 00 every 6 Medical (six) Branch hours as needed for Pain (scale 7-10). traMADOL 0 Yes [id number] 50mg Take 1 [facility] (ULTRAM) 50 7-13 109 tablet by [facility] mg tablet 00:00: mouth [place] 00 every 6 Medical (six) Branch hours as needed for Pain (scale 7-10). traMADOL Yes [id number] 50mg Take 1 [facility] (ULTRAM) 50 7-13 109 tablet by [facility] mg tablet 00:00: mouth [place] 00 every 6 Medical (six) Branch hours as needed for Pain (scale 7-10). traMADOL 2022- No [id number] 50mg Take 1 [facility] (ULTRAM) 50 7-13 02-17 109 tablet by [facility] mg tablet 00:00: 00:00 mouth [place] 00 :00 every 6 Medical (six) Branch hours as needed for Pain (scale 7-10). traMADOL 2018-2022- No [id number] 50mg Take 1 [facility] (ULTRAM) 50 7-13 02-17 109 tablet by [facility] of mg tablet 00:00: 00:00 mouth [place] 00 :00 every 6 Medical (six) Branch hours as needed for Pain (scale 7-10). amoxicillin 2020- No 1{tbl} Take 1 Tab [facility] -clavulanat 04-11 by [facility]: 05:59 of (AUGMENTIN) 00 :00 Medicin 875-125 MG e per tablet baclofen Yes [id number] 10mg Take 1 [facility] mg tablet 5-09 4 tablet by [facility] o f 00:00: mouth 3 (three) Medical times Branch daily. baclofen Yes [id number] 10mg Take 1 [facility] mg tablet 5-09 4 tablet by [facility] o f 00:00: mouth 3 (three) Medical times Branch daily. baclofen Yes [id number] 10mg Take 1 [facility] mg tablet 5-09 4 tablet by [facility] o f 00:00: mouth 3 (three) Medical times Branch daily. baclofen Yes [id number] 10mg Take 1 [facility] mg tablet 5-09 4 tablet by [facility] o f 00:00: mouth 3 (three) Medical times Branch daily. baclofen Yes [id number] 10mg Take 1 [facility] mg tablet 5-09 4 tablet by [facility] o f 00:00: mouth 3 (three) Medical times Branch daily. baclofen Yes [id number] 10mg Take 1 [facility] mg tablet 5-09 4 tablet by [facility] o f 00:00: mouth 3 (three) Medical times Branch daily. baclofen Yes [id number] 10mg Take 1 [facility] mg tablet 5-09 4 tablet by [facility] o f 00:00: mouth 3 (three) Medical times Branch daily. baclofen Yes [id number] 10mg Take 1 [facility] mg tablet 5-09 4 tablet by [facility] o f 00:00: mouth 3 00 (three) Medical times Branch daily. baclofen Yes [id number] 10mg Take 1 [facility] mg tablet 5-09 4 tablet by [facility] o f 00:00: mouth 3 (three) Medical times Branch daily. baclofen 10 Yes [id number] 10mg Take 1 [facility] mg tablet 5-09 4 tablet by [facility] o f 00:00: mouth 3 (three) Medical times Branch daily. baclofen 10 2018- Yes [id number] 10mg Take 1 [facility] mg tablet 5-09 4 tablet by [facility] o f 00:00: mouth 3 (three) Medical times Branch daily. baclofen 10 Yes [id number] 10mg Take 1 [facility] mg tablet 5-09 4 tablet by [facility] o f 00:00: mouth 3 (three) Medical times Branch daily. baclofen 10 Yes [id number] 10mg Take 1 [facility] mg tablet 5-09 4 tablet by [facility] o f 00:00: mouth 3 (three) Medical times Branch daily. baclofen 10 Yes [id number] 10mg Take 1 [facility] mg tablet 5-09 4 tablet by [facility] o f 00:00: mouth 3 (three) Medical times Branch daily. baclofen Yes [id number] 10mg Take 1 [facility] mg tablet 5-09 4 tablet by [facility] o f 00:00: mouth (three) Medical times Branch daily. baclofen Yes [id number] 10mg Take 1 [facility] mg tablet 5-09 4 tablet by [facility] o f 00:00: mouth (three) Medical times Branch daily. baclofen 10 Yes [id number] 10mg Take 1 [facility] mg tablet 5-09 4 tablet by [facility] o f 00:00: mouth 3 (three) Medical times Branch daily. baclofen 10 Yes [id number] 10mg Take 1 [facility] mg tablet 5-09 4 tablet by [facility] o f 00:00: mouth 3 (three) Medical times Branch daily. baclofen 10 Yes [id number] 10mg Take 1 [facility] mg tablet 5-09 4 tablet by [facility] o f 00:00: mouth 3 (three) Medical times Branch daily. baclofen 10 Yes [id number] 10mg Take 1 [facility] mg tablet 5-09 4 tablet by [facility] o f 00:00: mouth 3 (three) Medical times Branch daily. baclofen 10 Yes [id number] 10mg Take 1 [facility] mg tablet 5-09 4 tablet by [facility] o f 00:00: mouth 3 (three) Medical times Branch daily. baclofen 10 Yes [id number] 10mg Take 1 [facility] mg tablet 5-09 4 tablet by [facility] o f 00:00: mouth 3 (three) Medical times Branch daily. baclofen 10 Yes [id number] 10mg Take 1 [facility] mg tablet 5-09 4 tablet by [facility]y o f 00:00: mouth 3 (three) Medical times Branch daily. baclofen Yes [id number] 10mg Take 1 [facility] mg tablet 5-09 4 tablet by [facility]y o f 00:00: mouth 3 (three) Medical times Branch daily. baclofen Yes [id number] 10mg Take 1 [facility] mg tablet 5-09 4 tablet by ity o f 00:00: mouth (three) Medical times Branch daily. baclofen Yes [id number] 10mg Take 1 [facility] mg tablet 5-09 4 tablet by ity o f 00:00: mouth (three) Medical times Branch daily. baclofen Yes [id number] 10mg Take 1 [facility] mg tablet 5-09 4 tablet by ity o f 00:00: mouth (three) Medical times Branch daily. baclofen Yes [id number] 10mg Take 1 [facility] mg tablet 5-09 4 tablet by ity o f 00:00: mouth (three) Medical times Branch daily. baclofen Yes [id number] 10mg Take 1 [facility] mg tablet 5-09 4 tablet by ity o f 00:00: mouth (three) Medical times Branch daily. baclofen Yes [id number] 10mg Take 1 [facility] mg tablet 5-09 4 tablet by ity o f 00:00: mouth 3 (three) Medical times Branch daily. baclofen 10 2018- Yes [id number] 10mg Take 1 [facility] mg tablet 5-09 4 tablet by ity o f 00:00: mouth 3 (three) Medical times Branch daily. baclofen Yes [id number] 10mg Take 1 [facility] mg tablet 5-09 4 tablet by ity o f 00:00: mouth 3 (three) Medical times Branch daily. baclofen 10 Yes [id number] 10mg Take 1 [facility] mg tablet 5-09 4 tablet by ity o f 00:00: mouth (three) Medical times Branch daily. baclofen Yes [id number] 10mg Take 1 [facility] mg tablet 5-09 4 tablet by ity o f 00:00: mouth 3 (three) Medical times Branch daily. baclofen Yes [id number] 10mg Take 1 [facility] mg tablet 5-09 4 tablet by [facility]y o f 00:00: mouth 3 (three) Medical times Branch daily. baclofen Yes [id number] 10mg Take 1 [facility] mg tablet 5-09 4 tablet by ity o f 00:00: mouth (three) Medical times Branch daily. baclofen Yes [id number] 10mg Take 1 [facility] mg tablet 5-09 4 tablet by ity o f 00:00: mouth (three) Medical times Branch daily. baclofen Yes [id number] 10mg Take 1 [facility] mg tablet 5-09 4 tablet by [facility]y o f 00:00: mouth (three) Medical times Branch daily. baclofen Yes [id number] 10mg Take 1 [facility] mg tablet 5-09 4 tablet by [facility]y o f 00:00: mouth (three) Medical times Branch daily. baclofen Yes [id number] 10mg Take 1 [facility] mg tablet 5-09 4 tablet by [facility]y o f 00:00: mouth (three) Medical times Branch daily. baclofen Yes [id number] 10mg Take 1 [facility] mg tablet 5-09 4 tablet by [facility]y o f 00:00: mouth 3 (three) Medical times Branch daily. baclofen 10 2018- Yes [id number] 10mg Take 1 [facility] mg tablet 5-09 4 tablet by [facility] o f 00:00: mouth 3 (three) Medical times Branch daily. baclofen 10 Yes [id number] 10mg Take 1 [facility] mg tablet 5-09 4 tablet by [facility]y o f 00:00: mouth 3 (three) Medical times Branch daily. baclofen Yes [id number] 10mg Take 1 [facility] mg tablet 5-09 4 tablet by [facility]y o f 00:00: mouth 3 (three) Medical times Branch daily. baclofen 10 2018- Yes [id number] 10mg Take 1 [facility] mg tablet 5-09 4 tablet by [facility]y o f 00:00: mouth 3 (three) Medical times Branch daily. baclofen 10 Yes [id number] 10mg Take 1 [facility] mg tablet 5-09 4 tablet by [facility] o f 00:00: mouth 3 (three) Medical times Branch daily. baclofen Yes [id number] 10mg Take 1 [facility] mg tablet 5-09 4 tablet by [facility] o f 00:00: mouth 3 (three) Medical times Branch daily. baclofen Yes [id number] 10mg Take 1 [facility] mg tablet 5-09 4 tablet by [facility]y o f 00:00: mouth 3 (three) Medical times Branch daily. baclofen Yes [id number] 10mg Take 1 [facility] mg tablet 5-09 4 tablet by [facility]y o f 00:00: mouth 3 (three) Medical times Branch daily. baclofen Yes [id number] 10mg Take 1 [facility] mg tablet 5-09 4 tablet by [facility]y o f 00:00: mouth 3 (three) Medical times Branch daily. baclofen Yes [id number] 10mg Take 1 [facility] mg tablet 5-09 4 tablet by [facility]y o f 00:00: mouth 3 (three) Medical times Branch daily. baclofen Yes [id number] 10mg Take 1 [facility] mg tablet 5-09 4 tablet by [facility]y o f 00:00: mouth 3 (three) Medical times Branch daily. baclofen 10 Yes [id number] 10mg Take 1 [facility] mg tablet 5-09 4 tablet by [facility]y o f 00:00: mouth 3 (three) Medical times Branch daily. baclofen 10 Yes [id number] 10mg Take 1 [facility] mg tablet 5-09 4 tablet by ity o f 00:00: mouth 3 (three) Medical times Branch daily. baclofen 10 Yes [id number] 10mg Take 1 [facility] mg tablet 5-09 4 tablet by ity o f 00:00: mouth 3 (three) Medical times Branch daily. baclofen 10 2018- Yes [id number] 10mg Take 1 [facility] mg tablet 5-09 4 tablet by ity o f 00:00: mouth 3 (three) Medical times Branch daily. baclofen 10 2018- Yes [id number] 10mg Take 1 [facility] mg tablet 5-09 4 tablet by ity o f 00:00: mouth 3 (three) Medical times Branch daily. baclofen 2018- Yes [id number] 10mg Take 1 [facility] mg tablet 5-09 4 tablet by ity o f 00:00: mouth 3 (three) Medical times Branch daily. baclofen 10 2018- Yes [id number] 10mg Take 1 [facility] mg tablet 5-09 4 tablet by [facility]y o f 00:00: mouth 3 (three) Medical times Branch daily. baclofen Yes [id number] 10mg Take 1 [facility] mg tablet 5-09 4 tablet by ity o f 00:00: mouth (three) Medical times Branch daily. baclofen Yes [id number] 10mg Take 1 [facility] mg tablet 5-09 4 tablet by [facility] o f 00:00: mouth (three) Medical times Branch daily. baclofen Yes [id number] 10mg Take 1 [facility] mg tablet 5-09 4 tablet by ity o f 00:00: mouth 3 (three) Medical times Branch daily. baclofen 10 2018- Yes [id number] 10mg Take 1 [facility] mg tablet 5-09 4 tablet by [facility]y o f 00:00: mouth (three) Medical times Branch daily. baclofen 10 Yes [id number] 10mg Take 1 [facility] mg tablet 5-09 4 tablet by [facility]y o f 00:00: mouth 3 (three) Medical times Branch daily. baclofen 10 2018- Yes [id number] 10mg Take 1 [facility] mg tablet 5-09 4 tablet by [facility]y o f 00:00: mouth 3 (three) Medical times Branch daily. baclofen 10 2018- Yes [id number] 10mg Take 1 [facility] mg tablet 5-09 4 tablet by [facility]y o f 00:00: mouth 3 (three) Medical times Branch daily. baclofen 10 Yes [id number] 10mg Take 1 [facility] mg tablet 5-09 4 tablet by [facility]y o f 00:00: mouth 3 (three) Medical times Branch daily. baclofen 2018- Yes [id number] 10mg Take 1 [facility] mg tablet 5-09 4 tablet by [facility]y o f 00:00: mouth 3 (three) Medical times Branch daily. baclofen Yes [id number] 10mg Take 1 [facility] mg tablet 5-09 4 tablet by [facility]y o f 00:00: mouth (three) Medical times Branch daily. baclofen Yes [id number] 10mg Take 1 [facility] mg tablet 5-09 4 tablet by [facility]y o f 00:00: mouth (three) Medical times Branch daily. baclofen Yes [id number] 10mg Take 1 [facility] mg tablet 5-09 4 tablet by [facility]y o f 00:00: mouth (three) Medical times Branch daily. baclofen Yes [id number] 10mg Take 1 [facility] mg tablet 5-09 4 tablet by [facility]y o f 00:00: mouth (three) Medical times Branch daily. baclofen Yes [id number] 10mg Take 1 [facility] mg tablet 5-09 4 tablet by ity o f 00:00: mouth (three) Medical times Branch daily. baclofen Yes [id number] 10mg Take 1 [facility] mg tablet 5-09 4 tablet by [facility]y o f 00:00: mouth (three) Medical times Branch daily. baclofen Yes [id number] 10mg Take 1 [facility] mg tablet 5-09 4 tablet by ity o f 00:00: mouth (three) Medical times Branch daily. baclofen Yes [id number] 10mg Take 1 [facility] mg tablet 5-09 4 tablet by [facility]y o f 00:00: mouth 3 (three) Medical times Branch daily. baclofen Yes [id number] 10mg Take 1 [facility] mg tablet 5-09 4 tablet by [facility]y o f 00:00: mouth 3 (three) Medical times Branch daily. baclofen Yes [id number] 10mg Take 1 [facility] mg tablet 5-09 4 tablet by [facility] o f 00:00: mouth 3 (three) Medical times Branch daily. baclofen 10 2018- Yes [id number] 10mg Take 1 [facility] mg tablet 5-09 4 tablet by [facility] o f 00:00: mouth 3 (three) Medical times Branch daily. baclofen Yes [id number] 10mg Take 1 [facility] mg tablet 5-09 4 tablet by [facility] o f 00:00: mouth 3 (three) Medical times Branch daily. baclofen Yes [id number] 10mg Take 1 [facility] mg tablet 5-09 4 tablet by ity o f 00:00: mouth 3 (three) Medical times Branch daily. baclofen Yes [id number] 10mg Take 1 [facility] mg tablet 5-09 4 tablet by ity o f 00:00: mouth 3 (three) Medical times Branch daily. baclofen Yes [id number] 10mg Take 1 [facility] mg tablet 5-09 4 tablet by ity o f 00:00: mouth 3 (three) Medical times Branch daily. baclofen Yes [id number] 10mg Take 1 [facility] mg tablet 5-09 4 tablet by ity o f 00:00: mouth 3 (three) Medical times Branch daily. baclofen Yes [id number] 10mg Take 1 [facility] mg tablet 5-09 4 tablet by ity o f 00:00: mouth 3 (three) Medical times Branch daily. baclofen Yes [id number] 10mg Take 1 [facility] mg tablet 5-09 4 tablet by ity o f 00:00: mouth 3 (three) Medical times Branch daily. baclofen Yes [id number] 10mg Take 1 [facility] mg tablet 5-09 4 tablet by [facility]y o f 00:00: mouth 3 (three) Medical times Branch daily. baclofen 10 Yes [id number] 10mg Take 1 [facility] mg tablet 5-09 4 tablet by ity o f 00:00: mouth 3 (three) Medical times Branch daily. baclofen Yes [id number] 10mg Take 1 [facility] mg tablet 5-09 4 tablet by ity o f 00:00: mouth 3 (three) Medical times Branch daily. baclofen 10 2018- Yes [id number] 10mg Take 1 [facility] mg tablet 5-09 4 tablet by ity o f 00:00: mouth 3 (three) Medical times Branch daily. baclofen 10 2018- Yes [id number] 10mg Take 1 [facility] mg tablet 5-09 4 tablet by ity o f 00:00: mouth 3 (three) Medical times Branch daily. baclofen 10 2018- Yes [id number] 10mg Take 1 [facility] mg tablet 5-09 4 tablet by ity o f 00:00: mouth 3 (three) Medical times Branch daily. baclofen 10 2018- Yes [id number] 10mg Take 1 [facility] mg tablet 5-09 4 tablet by ity o f 00:00: mouth 3 (three) Medical times Branch daily. baclofen 10 2018- Yes [id number] 10mg Take 1 [facility] mg tablet 5-09 4 tablet by ity o f 00:00: mouth () Medical times Branch daily. baclofen Yes [id number] 10mg Take 1 [facility] mg tablet 5-09 4 tablet by ity o f 00:00: mouth (three) Medical times Branch daily. baclofen 10 Yes [id number] 10mg Take 1 [facility] mg tablet 5-09 4 tablet by ity o f 00:00: mouth (three) Medical times Branch daily. baclofen 10 2018- Yes [id number] 10mg Take 1 [facility] mg tablet 5-09 4 tablet by ity o f 00:00: mouth (three) Medical times Branch daily. baclofen 10 2018- Yes [id number] 10mg Take 1 [facility] mg tablet 5-09 4 tablet by ity o f 00:00: mouth 3 (three) Medical times Branch daily. baclofen 10 2018- Yes [id number] 10mg Take 1 [facility] mg tablet 5-09 4 tablet by ity o f 00:00: mouth 3 (three) Medical times Branch daily. baclofen 10 2018- Yes [id number] 10mg Take 1 [facility] mg tablet 5-09 4 tablet by ity o f 00:00: mouth 3 (three) Medical times Branch daily. baclofen 10 Yes [id number] 10mg Take 1 [facility] mg tablet 5-09 4 tablet by ity o f 00:00: mouth 3 (three) Medical times Branch daily. baclofen 10 Yes [id number] 10mg Take 1 [facility] mg tablet 5-09 4 tablet by ity o f 00:00: mouth 3 (three) Medical times Branch daily. baclofen 10 Yes [id number] 10mg Take 1 [facility] mg tablet 5-09 4 tablet by ity o f 00:00: mouth 3 (three) Medical times Branch daily. baclofen Yes [id number] 10mg Take 1 [facility] mg tablet 5-09 4 tablet by ity o f 00:00: mouth 3 (three) Medical times Branch daily. baclofen Yes [id number] 10mg Take 1 [facility] mg tablet 5-09 4 tablet by ity o f 00:00: mouth 3 (three) Medical times Branch daily. baclofen Yes [id number] 10mg Take 1 [facility] mg tablet 5-09 4 tablet by ity o f 00:00: mouth 3 (three) Medical times Branch daily. promethazin 2017-11 Yes 12.5mg Take 10 mL [facility] e 1-[address] (PHENERGAN) 00:00: times of 6.25 MG/5ML 00 daily as Medi coirne syrup needed for e Nausea. ondansetron 2017-11 Yes 8mg Take 1 Tab [facility] (ZOFRAN 1-19 by [facility] [place]) 8 mg 00:00: every 8 of disintegrat 00 hours as Medi corine ing tablet needed for e Nausea. promethazin 2017-11- No 12.5mg Take 10 mL [facility] e 1-19 -[address] [place] [address] (PHENERGAN) 00:00: 00:00 times of 6.25 MG/5ML 00 :00 daily as Medi corine syrup needed for e Nausea. ondansetron 2017-11- No 8mg Take 1 Tab [facility] (ZOFRAN 1-19 -19 by mouth [place] ODT) 8 mg 00:00: 00:00 every 8 of disintegrat 00 :00 hours as Medi corine ing tablet needed for e Nausea. metoclopram 2017-11 Yes 5mg Take 5 mg [facility] sera 11-15 by mouth [place] (REGLAN) 5 14:40: four times o f MG tablet 21 daily. Medicin e Methocarbam 2017-11 Yes Take by [place] [facility] 11-15 mouth. [place] (ROBAXIN-75 14:40: of 0 OR) 21 Medicin e Prochlorper 2017-11 Yes Take by [place] [facility] azine 11-15 mouth. [place] Maleate 14:40: of (COMPAZINE 21 Medicin PO) e famotidine 2017-11 Yes 40mg Take 40 mg [facility] (PEPCID) 40 11-15 by mouth [place] [facility] MG tablet 14:40: daily. of 21 Medicin e ipratropium 2017-11 Yes .5mg 0.5 mg by [facility] (ATROVENT) 0-29 Inhalation [facility] 0.02 % 00:00: route. of nebulizer 00 Medicin solution e ipratropium 2017-11 Yes INHALE 2.5 [facility] (ATROVENT) 0-29 ML EVERY 6 [facility] 0.02 % 00:00: (SIX) of nebulizer 00 HOURS Medici n solution NEEDED FOR e WHEEZING OR SHORTNESS OF BREATH. PAZEO 0.7 % 2017-[address] [place] [facility] SOLN 0-29 DROP IN [place] 00:00: EACH EYE of 00 DAILY. Medicin e ipratropium 2017-11 Yes .5mg 0.5 mg by [facility] (ATROVENT) 0-29 Inhalation Col [facility] 0.02 % 00:00: route. of nebulizer 00 Medicin solution e ipratropium 2017-11 Yes INHALE 2.5 [facility] (ATROVENT) 0-29 ML EVERY 6 Col [facility] 0.02 % 00:00: (SIX) of nebulizer 00 HOURS Medici n solution NEEDED FOR e WHEEZING OR SHORTNESS OF BREATH. PAZEO 0.7 % 2017-[address] [place] [facility] SOLN 0-29 DROP IN [place] 00:00: EACH EYE of 00 DAILY. Medicin e ipratropium 2017-11 Yes .5mg 0.5 mg by [facility] (ATROVENT) 0-29 Inhalation Col [facility] 0.02 % 00:00: route. of nebulizer 00 Medicin solution e ipratropium 2017-11 Yes INHALE 2.5 [facility] (ATROVENT) 0-29 ML EVERY 6 Col lege 0.02 % 00:00: (SIX) of nebulizer 00 HOURS Medici n solution NEEDED FOR e WHEEZING OR SHORTNESS OF BREATH. PAZEO 0.7 % 2017-[address] [place] [facility] SOLN 0-29 DROP IN [facility] 00:00: EACH EYE of 00 DAILY. Medicin e ipratropium 2017-11 Yes .5mg 0.5 mg by [facility] (ATROVENT) 0-29 Inhalation Col [facility] 0.02 % 00:00: route. of nebulizer 00 Medicin solution e ipratropium 2017-11 Yes INHALE 2.5 [facility] (ATROVENT) 0-29 ML EVERY 6 [facility] 0.02 % 00:00: (SIX) of nebulizer 00 HOURS Medici n solution NEEDED FOR e WHEEZING OR SHORTNESS OF BREATH. PAZEO 0.7 % 2017-[address] [place] [facility] SOLN 0-29 DROP IN [place] 00:00: EACH EYE of 00 DAILY. Medicin e ipratropium 2017-11 Yes .5mg 0.5 mg by [facility] (ATROVENT) 0-29 Inhalation [facility] 0.02 % 00:00: route. of nebulizer 00 Medicin solution e ipratropium 2017-11 Yes INHALE 2.5 [facility] (ATROVENT) 0-29 ML EVERY 6 [facility] 0.02 % 00:00: (SIX) of nebulizer 00 HOURS Medici n solution NEEDED FOR e WHEEZING OR SHORTNESS OF BREATH. PAZEO 0.7 % 2017-[address] [place] [facility] SOLN 0-29 DROP IN [facility] 00:00: EACH EYE of 00 DAILY. Medicin e ipratropium 2017-11 Yes .5mg 0.5 mg by [facility] (ATROVENT) 0-29 Inhalation [facility] 0.02 % 00:00: route. of nebulizer 00 Medicin solution e ipratropium 2017-11 Yes INHALE 2.5 [facility] (ATROVENT) 0-29 ML EVERY 6 [facility] 0.02 % 00:00: (SIX) of nebulizer 00 HOURS Medici n solution NEEDED FOR e WHEEZING OR SHORTNESS OF BREATH. PAZEO 0.7 % 2017-[address] 1 [place] [facility] SOLN 0-29 DROP IN [facility] 00:00: EACH EYE of 00 DAILY. Medicin e ipratropium 2017-11 Yes .5mg 0.5 mg by [facility] (ATROVENT) 0-29 Inhalation [facility] 0.02 % 00:00: route. of nebulizer 00 Medicin solution e ipratropium 2017-11 Yes INHALE 2.5 [facility] (ATROVENT) 0-29 ML EVERY 6 [facility] 0.02 % 00:00: (SIX) of nebulizer 00 HOURS Medici n solution NEEDED FOR e WHEEZING OR SHORTNESS OF BREATH. ipratropium 2017-11 Yes .5mg 0.5 mg by [facility] (ATROVENT) 0-29 Inhalation [facility] 0.02 % 00:00: route. of nebulizer 00 Medicin solution e ipratropium 2017-11 Yes INHALE 2.5 [facility] (ATROVENT) 0-29 ML EVERY 6 [facility] 0.02 % 00:00: (SIX) of nebulizer 00 HOURS Medici n solution NEEDED FOR e WHEEZING OR SHORTNESS OF BREATH. PAZEO 0.7 % 2017-[address] [place] [facility] SOLN 0-29 DROP IN [facility] 00:00: EACH EYE of 00 DAILY. Medicin e PAZEO 0.7 % 2017-[address] 1 [place] [facility] SOLN 0-29 DROP IN [facility] 00:00: EACH EYE of 00 DAILY. Medicin e ipratropium 2017-11 Yes .5mg 0.5 mg by [facility] (ATROVENT) 0-29 Inhalation [facility] 0.02 % 00:00: route. of nebulizer 00 Medicin solution e PAZEO 0.7 % 2017-[address] 1 [place] [facility] SOLN 0-29 DROP IN [facility] 00:00: EACH EYE of 00 DAILY. Medicin e ipratropium 2017-11 Yes .5mg 0.5 mg by [facility] (ATROVENT) 0-29 Inhalation [facility] 0.02 % 00:00: route. of nebulizer 00 Medicin solution e PAZEO 0.7 % 2017-[address] 1 [place] [facility] SOLN 0-29 DROP IN [facility] 00:00: EACH EYE of 00 DAILY. Medicin e ipratropium 2017-11 Yes .5mg 0.5 mg by [facility] (ATROVENT) 0-29 Inhalation [facility] 0.02 % 00:00: route. of nebulizer 00 Medicin solution e PAZEO 0.7 % 2017-[address] 1 [place] [facility] SOLN 0-29 DROP IN [facility] 00:00: EACH EYE of 00 DAILY. Medicin e ipratropium 2017-11 Yes .5mg 0.5 mg by [facility] (ATROVENT) 0-29 Inhalation [facility] 0.02 % 00:00: route. of nebulizer 00 Medicin solution e PAZEO 0.7 % 2017-[address] 1 [place] [facility] SOLN 0-29 DROP IN [facility] 00:00: EACH EYE of 00 DAILY. Medicin e ipratropium 2017-11 No INHALE 2.5 [facility] (ATROVENT) 0-29 12-13 ML EVERY 6 [facility] 0.02 % 00:00: 00:00 (SIX) of nebulizer 00 :00 HOURS Medici n solution NEEDED FOR e WHEEZING OR SHORTNESS OF BREATH. MYRBETRIQ 2017-11 Yes 1{tbl} Take 1 Tab [facility] 50 MG TB24 0-26 by mouth [facility] 00:00: daily. of 00 Medicin e promethazin 2017-11 Yes 12.5mg Take 10 mL [facility] e 0-[address] [place] [address] (PHENERGAN) 00:00: times of 6.25 MG/5ML 00 daily as Medi corine syrup needed for e Nausea. promethazin 2017-11 Yes 12.5mg Take 10 mL [facility] e 0-22 by mouth 4 [place] (PHENERGAN) 00:00: times of 6.25 MG/5ML 00 daily as Medi corine syrup needed for e Nausea. promethazin 2017-11 Yes 12.5mg Take 10 mL [facility] e 0-22 by mouth 4 [place] (PHENERGAN) 00:00: times of 6.25 MG/5ML 00 daily as Medi corine syrup needed for e Nausea. promethazin 2017-11 Yes 12.5mg Take 10 mL [facility] e 0-22 by mouth 4 [place] (PHENERGAN) 00:00: times of 6.25 MG/5ML 00 daily as Medi corine syrup needed for e Nausea. promethazin 2017-11 Yes 12.5mg Take 10 mL [facility] e 0-22 by mouth 4 [facility] (PHENERGAN) 00:00: times of 6.25 MG/5ML 00 daily as Medi corine syrup needed for e Nausea. promethazin 2017-11 Yes 12.5mg Take 10 mL [facility] e 0-22 by mouth 4 [facility] (PHENERGAN) 00:00: times of 6.25 MG/5ML 00 daily as Medi corine syrup needed for e Nausea. promethazin 2017-11 Yes 12.5mg Take 10 mL [facility] e 0-22 by mouth 4 [facility] (PHENERGAN) 00:00: times of 6.25 MG/5ML 00 daily as Medi corine syrup needed for e Nausea. promethazin 2017-11 Yes 12.5mg Take 10 mL [facility] e 0-22 by mouth 4 [place] (PHENERGAN) 00:00: times of 6.25 MG/5ML 00 daily as Medi corine syrup needed for e Nausea. promethazin 2017-11 Yes 12.5mg Take 10 mL [facility] e 0-22 by mouth 4 [place] (PHENERGAN) 00:00: times of 6.25 MG/5ML 00 daily as Medi corine syrup needed for e Nausea. promethazin 2017-11 Yes 12.5mg Take 10 mL [facility] e 0-22 by mouth 4 [place] (PHENERGAN) 00:00: times of 6.25 MG/5ML 00 daily as Medi corine syrup needed for e Nausea. promethazin 2017-11 Yes 12.5mg Take 10 mL [facility] e 0-22 by mouth 4 [place] (PHENERGAN) 00:00: times of 6.25 MG/5ML 00 daily as Medi corine syrup needed for e Nausea. promethazin 2017-11 Yes 12.5mg Take 10 mL [facility] e 0-22 by mouth 4 [place] (PHENERGAN) 00:00: times of 6.25 MG/5ML 00 daily as Medi corine syrup needed for e Nausea. ciprofloxac 2017-11 Yes 500mg Take 500 [facility] in (CIPRO) 0-21 mg by [place] 500 MG 00:00: mouth two of tablet 00 times Medicin daily. e XOPENEX HFA 2017-11 Yes INHALE 1-2 [facility] 45 MCG/ACT 0-20 PUFFS [place] AERO 00:00: EVERY 4 of inhaler 00 (FOUR) Medicin HOURS e NEEDED FOR WHEEZING. XOPENEX HFA 2017-11 Yes INHALE 1-2 [facility] 45 MCG/ACT 0-20 PUFFS [facility] AERO 00:00: EVERY 4 of inhaler 00 (FOUR) Medicin HOURS e NEEDED FOR WHEEZING. XOPENEX HFA 2017-11 Yes INHALE 1-2 [facility] 45 MCG/ACT 0-20 PUFFS [facility] AERO 00:00: EVERY 4 of inhaler 00 (FOUR) Medicin HOURS e NEEDED FOR WHEEZING. XOPENEX HFA 2017-11 Yes INHALE 1-2 [facility] 45 MCG/ACT 0-20 PUFFS [facility] AERO 00:00: EVERY 4 of inhaler 00 (FOUR) Medicin HOURS e NEEDED FOR WHEEZING. XOPENEX HFA 2017-11 Yes INHALE 1-2 [facility] 45 MCG/ACT 0-20 PUFFS [facility] AERO 00:00: EVERY 4 of inhaler 00 (FOUR) Medicin HOURS e NEEDED FOR WHEEZING. XOPENEX HFA 2017-11 Yes INHALE 1-2 [facility] 45 MCG/ACT 0-20 PUFFS [facility] AERO 00:00: EVERY 4 of inhaler 00 (FOUR) Medicin HOURS e NEEDED FOR WHEEZING. XOPENEX HFA 2017-11 Yes INHALE 1-2 [facility] 45 MCG/ACT 0-20 PUFFS [facility] AERO 00:00: EVERY 4 of inhaler 00 (FOUR) Medicin HOURS e NEEDED FOR WHEEZING. XOPENEX HFA 2017-11 Yes INHALE 1-2 [facility] 45 MCG/ACT 0-20 PUFFS [facility] AERO 00:00: EVERY 4 of inhaler 00 (FOUR) Medicin HOURS e NEEDED FOR WHEEZING. XOPENEX HFA 2017-11 Yes INHALE 1-2 [facility] 45 MCG/ACT 0-20 PUFFS [facility] AERO 00:00: EVERY 4 of inhaler 00 (FOUR) Medicin HOURS e NEEDED FOR WHEEZING. XOPENEX HFA 2017-11 Yes INHALE 1-2 [facility] 45 MCG/ACT 0-20 PUFFS [facility] AERO 00:00: EVERY 4 of inhaler 00 (FOUR) Medicin HOURS e NEEDED FOR WHEEZING. XOPENEX HFA 2017-11 Yes INHALE 1-2 [facility] 45 MCG/ACT 0-20 PUFFS [facility] AERO 00:00: EVERY 4 of inhaler 00 (FOUR) Medicin HOURS e NEEDED FOR WHEEZING. XOPENEX HFA 2017-11 Yes INHALE 1-2 [facility] 45 MCG/ACT 0-20 PUFFS [facility] AERO 00:00: EVERY 4 of inhaler 00 (FOUR) Medicin HOURS e NEEDED FOR WHEEZING. nystatin 2017-11 Yes two times [facility] (MYCOSTATIN 0-10 daily. [facility] ) ointment 00:00: of 00 Medicin e nystatin 2017-11 Yes two times [facility] (MYCOSTATIN 0-10 daily. Colleg [facility] ) ointment 00:00: of 00 Medicin e nystatin 2017-11 Yes two times [facility] (MYCOSTATIN 0-10 daily. [facility] ) ointment 00:00: of 00 Medicin e nystatin 2017-11 Yes two times [facility] (MYCOSTATIN 0-10 daily. Colleg [facility] ) ointment 00:00: of 00 Medicin e nystatin 2017-11 Yes two times [facility] (MYCOSTATIN 0-10 daily. [facility] ) ointment 00:00: of 00 Medicin e nystatin 2017-11 Yes two times [facility] (MYCOSTATIN 0-10 daily. [facility] ) ointment 00:00: of 00 Medicin e nystatin 2017-11 Yes two times [facility] (MYCOSTATIN 0-10 daily. [facility] ) ointment 00:00: of 00 Medicin e nystatin 2017-11 Yes two times [facility] (MYCOSTATIN 0-10 daily. [facility] ) ointment 00:00: of 00 Medicin e nystatin 2017-11 Yes two times [facility] (MYCOSTATIN 0-10 daily. [facility] ) ointment 00:00: of 00 Medicin e nystatin 2017-11 Yes two times [facility] (MYCOSTATIN 0-10 daily. [facility] ) ointment 00:00: of 00 Medicin e nystatin 2017-11 Yes two times [facility] (MYCOSTATIN 0-10 daily. [facility] ) ointment 00:00: of 00 Medicin e nystatin 2017-11 Yes two times [facility] (MYCOSTATIN 0-10 daily. Colleg e ) ointment 00:00: of 00 Medicin e metoprolol 2017-11 Yes TAKE 0.5 [facility] (TOPROL-XL) 0-08 TABLETS BY [facility] 25 MG XL 00:00: MOUTH of tablet 00 DAILY. Medicin e midodrine 2017-11 Yes TAKE 1 [facility] (PROAMATINE 0-08 TABLET 3 [facility] ) 2.5 MG 00:00: TIMES A of tablet 00 DAY Medicin e metoprolol 2017-11 Yes 3 times [facility] (TOPROL-XL) 0-08 daily. [facility] 25 MG XL 00:00: of tablet 00 Medicin e midodrine 2017-11 Yes as needed. [facility] (PROAMATINE 0-08 [place] ) 2.5 MG 00:00: of tablet 00 Medicin e metoprolol 2017-11 Yes 3 times [facility] (TOPROL-XL) 0-08 daily. [facility] 25 MG XL 00:00: of tablet 00 Medicin e midodrine 2017-11 Yes as needed. [facility] (PROAMATINE 0-08 [place] ) 2.5 MG 00:00: of tablet 00 Medicin e metoprolol 2017-11 Yes 3 times [facility] (TOPROL-XL) 0-08 daily. [facility] 25 MG XL 00:00: of tablet 00 Medicin e midodrine 2017-11 Yes as needed. [facility] (PROAMATINE 0-08 [place] ) 2.5 MG 00:00: of tablet 00 Medicin e metoprolol 2017- Yes 3 times [facility] (TOPROL-XL) 0-08 daily. [facility] 25 MG XL 00:00: of tablet 00 Medicin e midodrine 2017-11 Yes as needed. [facility] (PROAMATINE 0-08 [place] ) 2.5 MG 00:00: of tablet 00 Medicin e metoprolol 2017-11 Yes 3 times [facility] (TOPROL-XL) 0-08 daily. [facility] 25 MG XL 00:00: of tablet 00 Medicin e midodrine 2017-11 Yes as needed. [facility] (PROAMATINE 0-08 [place] ) 2.5 MG 00:00: of tablet 00 Medicin e metoprolol 2017-1 Yes 3 times [facility] (TOPROL-XL) 0-08 daily. [facility] 25 MG XL 00:00: of tablet 00 Medicin e midodrine 2017-11 Yes as needed. [facility] (PROAMATINE 0-08 [place] ) 2.5 MG 00:00: of tablet 00 Medicin e metoprolol 2017-11 Yes 3 times [facility] (TOPROL-XL) 0-08 daily. [facility] 25 MG XL 00:00: of tablet 00 Medicin e midodrine 2017-11 Yes as needed. [facility] (PROAMATINE 008 [place] ) 2.5 MG 00:00: of tablet 00 Medicin e metoprolol 2017-11 Yes 3 times [facility] (TOPROL-XL) 0-08 daily. [facility] 25 MG XL 00:00: of tablet 00 Medicin e metoprolol 2017-11 Yes 3 times [facility] (TOPROL-XL) 0-08 daily. [facility] 25 MG XL 00:00: of tablet 00 Medicin e metoprolol 2017-11 Yes 3 times [facility] (TOPROL-XL) 0-08 daily. [facility] 25 MG XL 00:00: of tablet 00 Medicin e metoprolol 2017-11 Yes 3 times [facility] (TOPROL-XL) 0-08 daily. [facility] 25 MG XL 00:00: of tablet 00 Medicin e midodrine 2017-11- No as needed. [facility] (PROAMATINE 13 [place] ) 2.5 MG 00:00: 00:00 of tablet 00 :00 Medicin e baclofen 2017-11 2019- No 10mg Take 10 mg [facility] (LIORESAL) 08-12 by mouth 3 [facility] 10 MG 00:00: 00:00 times of tablet 00 :00 daily. Medicin e FIBER OR 2017-11 Yes 80mL/h 80 mL/hr. [facility] 0-05 [facility] 00:00: of 00 Medicin e FIBER OR 2017-11 Yes 80mL/h 80 mL/hr. [facility] 0-05 [facility] 00:00: of 00 Medicin e FIBER OR 2017-11 Yes 80mL/h 80 mL/hr. [facility] 0-05 [facility] 00:00: of 00 Medicin e FIBER OR 2017-11 Yes 80mL/h 80 mL/hr. [facility] 0-05 [facility] 00:00: of 00 Medicin e FIBER OR 2017-11 Yes 80mL/h 80 mL/hr. [facility] 0-05 [facility] 00:00: of 00 Medicin e FIBER OR 2017-11 Yes 80mL/h 80 mL/hr. [facility] 0-05 [facility] 00:00: of 00 Medicin e FIBER OR 2017-11 Yes 80mL/h 80 mL/hr. [facility] 0-05 [facility] 00:00: of 00 Medicin e FIBER OR 2017-11 Yes 80mL/h 80 mL/hr. [facility] 0-05 [place] 00:00: of 00 Medicin e FIBER OR 2017-11 Yes 80mL/h 80 mL/hr. [facility] 0-05 [place] 00:00: of 00 Medicin e FIBER OR 2017-11 Yes 80mL/h 80 mL/hr. [facility] 0-05 [place] 00:00: of 00 Medicin e FIBER OR 2017-11 Yes 80mL/h 80 mL/hr. [facility] 0-05 [place] 00:00: of 00 Medicin e FIBER OR 2017-11 Yes 80mL/h 80 mL/hr. [facility] 0-05 [place] 00:00: of 00 Medicin e hydrOXYzine 0 Yes 25mg Take 25 mg [facility] (ATARAX) 25 9-24 by mouth. [facility] MG tablet 00:00: of 00 Medicin e hydrOXYzine Yes 25mg Take 25 mg [facility] (ATARAX) 25 9-24 by mouth. [facility] MG tablet 00:00: of 00 Medicin e hydrOXYzine 0 Yes 25mg Take 25 mg [facility] (ATARAX) 25 9-24 by mouth. [facility] MG tablet 00:00: of 00 Medicin e hydrOXYzine 2020- No 25mg Take 25 mg [facility] (ATARAX) 25 08-07 08-19 by mouth. [facility] MG tablet 00:00: 00:00 of 00 :00 Medicin e amitriptyli 0 2019- No 50mg Take 50 mg [facility] ne (ELAVIL) 08-07 08-12 by mouth. [facility] 50 MG 00:00: 00:00 of tablet 00 :00 Medicin e fluticasone 0 Yes 2{spray 2 Sprays [facility] (FLONASE) 08-02 } by [facility] 50 MCG/ACT 00:00: route. of nasal spray 00 Medicin e fluticasone 2018-0 Yes 2{spray 2 Sprays [facility] (FLONASE) 9-19 } by [facility]al [facility] 50 MCG/ACT 00:00: route. of nasal spray 00 Medicin e fluticasone 2018-0 Yes 2{spray 2 Sprays [facility] (FLONASE) 9-19 } by Nasal [facility] 50 MCG/ACT 00:00: route. of nasal spray 00 Medicin e fluticasone 2018-0 Yes 2{spray 2 Sprays [facility] (FLONASE) 9-19 } by [facility]al [facility] 50 MCG/ACT 00:00: route. of nasal spray 00 Medicin e fluticasone 2017-0 Yes 2{spray 2 Sprays [facility] (FLONASE) 9-19 } by [facility]al [facility] 50 MCG/ACT 00:00: route. of nasal spray 00 Medicin e fluticasone 2017-0 Yes 2{spray 2 Sprays [facility] (FLONASE) 9-19 } by Nasal [facility] 50 MCG/ACT 00:00: route. of nasal spray 00 Medicin e fluticasone 2017-0 Yes 2{spray 2 Sprays [facility] (FLONASE) 9-19 } by [facility]al [facility] 50 MCG/ACT 00:00: route. of nasal spray 00 Medicin e fluticasone 2017-0 Yes 2{spray 2 Sprays [facility] (FLONASE) 9-19 } by Nasal [facility] 50 MCG/ACT 00:00: route. of nasal spray 00 Medicin e fluticasone 2017-0 Yes 2{spray 2 Sprays [facility] (FLONASE) 9-19 } by Nasal [facility] 50 MCG/ACT 00:00: route. of nasal spray 00 Medicin e fluticasone 2017-0 Yes 2{spray 2 Sprays [facility] (FLONASE) 9-19 } by [facility]al [facility] 50 MCG/ACT 00:00: route. of nasal spray 00 Medicin e fluticasone 2017-0 Yes 2{spray 2 Sprays [facility] (FLONASE) 9-19 } by [facility]al [facility] 50 MCG/ACT 00:00: route. of nasal spray 00 Medicin e fluticasone 2018-0 Yes 2{spray 2 Sprays [facility] (FLONASE) 9-19 } by Nasal [facility] 50 MCG/ACT 00:00: route. of nasal spray 00 Medicin e butalbital- Yes 1{tbl} Take 1 Tab [facility] acetaminoph 9-17 by mouth. [facility] en-caffeine 00:00: of (FIORICET, 00 Medicin ESGIC) e 50-325-40 MG per tablet EPINEPHrine Yes INJECT 0.3 [facility] 0.3 9-17 ML BY College MG/0.3ML 00:00: INTRAMUSCU of injection 00 LAR ROUTE Medic in ONCE NOW e FOR 1 DOSE. EPINEPHrine Yes INJECT 0.3 [facility] 0.3 9-17 ML BY [facility] MG/0.3ML 00:00: INTRAMUSCU of injection 00 LAR ROUTE Medic in ONCE NOW e FOR 1 DOSE. EPINEPHrine Yes INJECT 0.3 [facility] 0.3 9-17 ML BY [facility] MG/0.3ML 00:00: INTRAMUSCU of injection 00 LAR ROUTE Medic in ONCE NOW e FOR 1 DOSE. EPINEPHrine Yes INJECT 0.3 [facility] 0.3 9-17 ML BY [facility] MG/0.3ML 00:00: INTRAMUSCU of injection 00 LAR ROUTE Medic in ONCE NOW e FOR 1 DOSE. EPINEPHrine Yes INJECT 0.3 [facility] 0.3 9-17 ML BY [facility] MG/0.3ML 00:00: INTRAMUSCU of injection 00 LAR ROUTE Medic in ONCE NOW e FOR 1 DOSE. EPINEPHrine Yes INJECT 0.3 [facility] 0.3 9-17 ML BY [facility] MG/0.3ML 00:00: INTRAMUSCU of injection 00 LAR ROUTE Medic in ONCE NOW e FOR 1 DOSE. EPINEPHrine Yes INJECT 0.3 [facility] 0.3 9-17 ML BY [facility] MG/0.3ML 00:00: INTRAMUSCU of injection 00 LAR ROUTE Medic in ONCE NOW e FOR 1 DOSE. EPINEPHrine Yes INJECT 0.3 [facility] 0.3 9-17 ML BY [facility] MG/0.3ML 00:00: INTRAMUSCU of injection 00 LAR ROUTE Medic in ONCE NOW e FOR 1 DOSE. EPINEPHrine Yes INJECT 0.3 [facility] 0.3 9-17 ML BY [facility] MG/0.3ML 00:00: INTRAMUSCU of injection 00 LAR ROUTE Medic in ONCE NOW e FOR 1 DOSE. EPINEPHrine Yes INJECT 0.3 [facility] 0.3 9-17 ML BY [facility] MG/0.3ML 00:00: INTRAMUSCU of injection 00 LAR ROUTE Medic in ONCE NOW e FOR 1 DOSE. EPINEPHrine 2017- Yes INJECT 0.3 [facility] 0.3 9-17 ML BY [facility] MG/0.3ML 00:00: INTRAMUSCU of injection 00 LAR ROUTE Medic in ONCE NOW e FOR 1 DOSE. EPINEPHrine 2018-0 Yes INJECT 0.3 [facility] 0.3 9-17 ML BY [facility] MG/0.3ML 00:00: INTRAMUSCU of injection 00 LAR ROUTE Medic in ONCE NOW e FOR 1 DOSE. azelastine Yes 1{spray 1 [place] by [facility] (ASTELIN) 9-14 } Nasal [facility] 0.1 % nasal 00:00: route. of spray Medicin e Fluticasone 2017-0 Yes 2{puff} 2 Puffs by [facility] -Salmeterol 9-14 Inhalation [facility] (ADVAIR 00:00: route. of HFA) Medicin MCG/ACT e AERO azelastine 0 Yes 1{spray 1 [place] by [facility] (ASTELIN) 9-14 } Nasal [facility] 0.1 % nasal 00:00: route. of spray Medicin e Fluticasone 2017-0 Yes 2{puff} 2 Puffs by [facility] -Salmeterol 9-14 Inhalation [facility] (ADVAIR 00:00: route. of HFA) Medicin MCG/ACT e AERO azelastine 2017-0 Yes 1{spray 1 [place] by [facility] (ASTELIN) 9-14 } Nasal [facility] 0.1 % nasal 00:00: route. of spray 00 Medicin e Fluticasone 2017-0 Yes 2{puff} 2 Puffs by [facility] -Salmeterol 9-14 Inhalation [facility] (ADVAIR 00:00: route. of HFA) Medicin MCG/ACT e AERO azelastine 2017-0 Yes 1{spray 1 [place] by [facility] (ASTELIN) 9-14 } Nasal [facility] 0.1 % nasal 00:00: route as of spray 00 needed. Medicin e Fluticasone 2017-0 Yes 2{puff} 2 Puffs by [facility] -Salmeterol 9-14 Inhalation [facility] (ADVAIR 00:00: route. of HFA) Medicin MCG/ACT e AERO azelastine 2018-0 Yes 1{spray 1 [place] by [facility] (ASTELIN) 9-14 } Nasal [facility] 0.1 % nasal 00:00: route as of spray 00 needed. Medicin e Fluticasone 2018-0 Yes 2{puff} 2 Puffs by [facility] -Salmeterol 9-14 Inhalation [facility] (ADVAIR 00:00: route. of HFA) Medicin MCG/ACT e AERO azelastine 2017-0 Yes 1{spray 1 [place] by [facility] (ASTELIN) 9-14 } Nasal [facility] 0.1 % nasal 00:00: route as of spray 00 needed. Medicin e azelastine 2017-0 Yes 1{spray 1 [place] by [facility] (ASTELIN) 9-14 } Nasal [facility] 0.1 % nasal 00:00: route as of spray 00 needed. Medicin e Fluticasone 2018-0 Yes 2{puff} 2 Puffs by [facility] -Salmeterol 9-14 Inhalation [facility] (ADVAIR 00:00: route. of HFA) Medicin MCG/ACT e AERO Fluticasone 2017-0 Yes 2{puff} 2 Puffs by [facility] -Salmeterol 9-14 Inhalation [facility] (ADVAIR 00:00: route. of HFA) Medicin MCG/ACT e AERO azelastine 2017-0 Yes 1{spray 1 [place] by [facility] (ASTELIN) 9-14 } Nasal [facility] 0.1 % nasal 00:00: route as of spray 00 needed. Medicin e Fluticasone 2018-0 Yes 2{puff} 2 Puffs by [facility] -Salmeterol 9-14 Inhalation [facility] (ADVAIR 00:00: route. of HFA) Medicin MCG/ACT e AERO azelastine 2017-0 Yes 1{spray 1 [place] by [facility] (ASTELIN) 9-14 } Nasal [facility] 0.1 % nasal 00:00: route as of spray 00 needed. Medicin e Fluticasone 2018-0 Yes 2{puff} 2 Puffs by [facility] -Salmeterol 9-14 [facility]: route. of MCG/ACT 00 Medicin AERO e azelastine 2018-0 Yes 1{spray 1 [place] by [facility] (ASTELIN) 9-14 } Nasal [facility] 0.1 % nasal 00:00: route as of spray 00 needed. Medicin e Fluticasone 2018-0 Yes 2{puff} 2 Puffs by [facility] -Salmeterol 9-14 Inhalation Co [facility]ge 00:00: route. of MCG/ACT 00 Medicin AERO e azelastine 2018-0 Yes 1{spray 1 [place] by [facility] (ASTELIN) 9-14 } Nasal [facility] 0.1 % nasal 00:00: route as of spray 00 needed. Medicin e Fluticasone 2018-0 Yes 2{puff} 2 Puffs by [facility] -Salmeterol 9-14 Inhalation Co [facility] 00:00: route. of MCG/ACT 00 Medicin AERO e azelastine 2018-0 Yes 1{spray 1 [place] by [facility] (ASTELIN) 9-14 } Nasal [place] 0.1 % nasal 00:00: route as of spray 00 needed. Medicin e Fluticasone 2018-0 Yes 2{puff} 2 Puffs by [facility] -Salmeterol 9-14 Inhalation Co [facility] 00:00: route. of MCG/ACT 00 Medicin AERO e LYRICA 100 2017-0 2019- No TAKE 1 [facility] MG capsule [id number] CAPSULE BY Co [facility] 00:00: 00:00 MOUTH of 00 :00 EVERY 8 Medicin HOURS e chlorhexidi Yes Apply [facility] 7-27 topically. [place] ([facility] 00:00: of 4 % liquid 00 Medicin e chlorhexidi 2017-0 Yes Apply [facility] 7-27 topically. [place] ([facility] 00:00: of 4 % liquid 00 Medicin e chlorhexidi 2017-0 Yes Apply [facility] 7-27 topically. [facility] 00:00: of 4 % liquid 00 Medicin e chlorhexidi Yes Apply [facility] 7-27 topically. [facility]) 00:00: of 4 % liquid 00 Medicin e chlorhexidi Yes Apply [facility] 7-27 topically. [facility]) 00:00: of 4 % liquid 00 Medicin e chlorhexidi 2017-0 Yes Apply [facility] 7-27 topically. [facility]) 00:00: of 4 % liquid 00 Medicin e chlorhexidi 0 Yes Apply [facility] 7-27 topically. [facility]) 00:00: of 4 % liquid 00 Medicin e chlorhexidi 2017-0 Yes Apply [facility] 7-27 topically. [facility]) 00:00: of 4 % liquid 00 Medicin e chlorhexidi 0 Yes Apply [facility] 7-27 topically. [facility]) 00:00: of 4 % liquid 00 Medicin e chlorhexidi 2017-0 Yes Apply [facility] 7-27 topically. [facility]) 00:00: of 4 % liquid 00 Medicin e chlorhexidi 2017-0 Yes Apply [facility] 7-27 topically. [facility]) 00:00: of 4 % liquid 00 Medicin e chlorhexidi 0 Yes Apply [facility] 7-27 topically. [place] ([facility]) 00:00: of 4 % liquid 00 Medicin e tramadol 2019- No 50mg Take 50 mg [facility] (ULTRAM) 50 05-07 08-12 by mouth. [facility]lege MG tablet 00:00: 00:00 of 00 :00 Medicin e methocarbam Yes 750mg [id number] Take [address] [facility] 04-24 [id number] mg by [facility] (ROBAXIN) 14:28: 3D mouth 3 Medic al 750 MG 50 (three) Center tablet times daily. LINACLOTIDE Yes 72ug QD [address] [facility] (LINZESS 04-24 [facility]) 14:28: [facility] 50 route Center daily. pantoprazol Yes 40mg QD [address] [facility] 04-[facility] (PROTONIX) 14:28: [facility] 40 MG 50 route Center tablet daily. ranitidine Yes 300mg QD [address] [facility] (ZANTAC) 11 [facility] 300 MG 14:28: [facility] capsule 50 route Center every evening. METOPROLOL 2018-0 Yes 12.5mg 12.[address] [facility] TARTRATE 6-11 [facility] 14:28: [facility] 50 route as Center needed For tachycardi a . ondansetron 2018-0 Yes 8mg Take [address] [facility] (ZOFRAN-ODT 6-11 by mouth 3 Marika kes ) 8 MG 14:28: (three) Medical disintegrat 50 times Center ing tablet daily as needed for Nausea. promethazin 2018-0 Yes 25mg Take [address] [facility] 6-11 [facility] 4 [facility] (PHENERGAN) 14:28: (four) Medi stan 6.25 mg/5 50 times Center mL syrup daily as needed for Nausea. lactulose 2018-0 Yes 30g [facility] (CHRON[facility] 04-24 [facility] Marika kes 10 gram/15 14:28: [facility] mL (15 mL) 50 route 3 Center solution (three) times daily as needed . sucralfate 2018-0 Yes 1g 1 [facility] (CARAFATE[facility] 04-24 [facility] 100 mg/mL 14:28: [facility] suspension 50 route as Cente r needed . mometasone 2018-0 Yes 2{spray Q.5D [address] [facility] (NASONEX) 04-24 } by Nasal [facility] 50 14:28: route 2 Medical mcg/actuati 50 (two) Center on nasal times spray daily. azelastine 2018-0 Yes 1{spray [address] [facility] (ASTELIN) 04-24 } Nasal [facility] 137 mcg 14:28: route as Medica l (0.1 %) 50 needed for Center nasal spray Rhinitis Use in each nostril as directed . albuterol 2018-0 Yes 2.5mg Take 2.[address] [facility] (PROVENTIL) 6-11 mg by [facility] 2.5 mg /3 14:28: nebulizati Me dical mL (0.083 50 on every 6 Cent er %) (six) nebulizer hours as solution needed for Wheezing. ipratropium 2018-0 Yes 3mL Take [address] [facility] -albuterol 6-11 by [facility] (DUO-NEB) 14:28: nebulizati Me dical 0.5 mg-3 50 on every 6 Cente r mg(2.5 mg (six) base)/3 mL hours as nebulizer needed for solution Wheezing. NUT.SUP,SPE 2018-0 Yes 16[oz_a Take [address] [facility] C.FRM,L-FR, 6-11 v] by mouth [facility] IRON/FOS 14:28: as needed. Med ical (TWOCAL HN 50 Center ORAL) sodium 2018-[address] [facility] chloride 6-11 intravenou [facility] 0.9% (NS) 14:28: sly as Medica l infusion 50 needed. Center levalbutero 2018-0 Yes Inhale by [facility] HCl 6-11 mouth via [facility] (XOPENEX 14:28: inhaler. Medic al INHL) 50 Center pregabalin 2018-0 Yes 100mg [id number] Take [address] [facility] (LYRICA) 6- [id number] mg by [facility] 100 MG 14:28: 3D mouth 3 Medical capsule 50 (three) Center times daily. methocarbam 2018-0 Yes 750mg [id number] Take [address] [facility] ol 6-11 [id number] mg by [facility] (ROBAXIN) 14:28: 3D mouth 3 Medic al 750 MG 50 (three) Center tablet times daily. LINACLOTIDE 2018-0 Yes 72ug QD [address] [facility] (LINZESS 6-11 Gastrostom [facility] ORAL) 14:28: y Tube Medical 50 route Center daily. pantoprazol 2018-0 Yes 40mg QD [address] [facility] 6-11 Gastrostom [facility] (PROTONIX) 14:28: y Tube Medic al 40 MG 50 route Center tablet daily. ranitidine 2018-0 Yes 300mg QD [address] [facility] (ZANTAC) 6-11 Gastrostom [facility] 300 MG 14:28: y Tube Medical capsule 50 route Center every evening. METOPROLOL 2018-0 Yes 12.5mg 12.[address] [facility] TARTRATE 6-11 Gastrostom [facility] ORAL 14:28: y Tube Medical 50 route as Center needed For tachycardi a . ondansetron 2018-0 Yes 8mg Take [address] [facility] (ZOFRAN-ODT 6-11 by mouth 3 Marika kes ) 8 MG 14:28: (three) Medical disintegrat 50 times Center ing tablet daily as needed for Nausea. promethazin 2018-0 Yes 25mg Take [address] [facility] e 6-11 by mouth 4 [facility] (PHENERGAN) 14:28: (four) Medi stan 6.25 mg/5 50 times Center mL syrup daily as needed for Nausea. lactulose 2018-0 Yes 30g 30 g [facility] (CHRONULAC[facility] 04-24 Gastrostom Marika kes 10 gram/15 14:28: y Tube Medic al mL (15 mL) 50 route 3 Center solution (three) times daily as needed . sucralfate 2018-0 Yes 1g 1 g by [facility] (CARAF[facility] 04-24 Gastrostom [facility] 100 mg/mL 14:28: y Tube Medica l suspension 50 route as Cente r needed . mometasone 2018-0 Yes 2{spray Q.5D [address] [facility] (NASONEX) 04-24 } by Nasal [facility] 50 14:28: route 2 Medical mcg/actuati 50 (two) Center on nasal times spray daily. azelastine 2017-0 Yes 1{spray [address] [facility] (ASTELIN) 04-24 } Nasal [facility] 137 mcg 14:28: route as Medica l (0.1 %) 50 needed for Center nasal spray Rhinitis Use in each nostril as directed . albuterol 2018-0 Yes 2.5mg Take 2.[address] [facility] (PROVENTIL) 6-11 mg by [facility] 2.5 mg /3 14:28: nebulizati Me dical mL (0.083 50 on every 6 Cent er %) (six) nebulizer hours as solution needed for Wheezing. ipratropium 2018-0 Yes 3mL Take [address] [facility] -albuterol 6-11 by [facility] (DUO-NEB) 14:28: nebulizati Me dical 0.5 mg-3 50 on every 6 Cente r mg(2.5 mg (six) base)/3 mL hours as nebulizer needed for solution Wheezing. NUT.SUP,SPE 2018-0 Yes 16[oz_a Take [address] [facility] C.FRM,L-FR, 6-11 v] by mouth [facility] IRON/FOS 14:28: as needed. Med ical (TWOCAL HN 50 Center ORAL) sodium 2018-[address] [facility] chloride 6-11 intravenou [facility] 0.9% (NS) 14:28: sly as Medica l infusion 50 needed. Center levalbutero 2018-0 Yes Inhale by [facility] HCl 6-11 mouth via [facility] (XOPENEX 14:28: inhaler. Medic al INHL) 50 Center pregabalin 2018-0 Yes 100mg [id number] Take [address] [facility] (LYRICA) 6-11 [id number] mg by Luke [facility] 100 MG 14:28: 3D mouth 3 Medical capsule 50 (three) Center times daily. methocarbam 2018-0 Yes 750mg [id number] Take [address] [facility] ol 6- [id number] mg by [facility] (ROBAXIN) 14:28: 3D mouth 3 Medic al 750 MG 50 (three) Center tablet times daily. LINACLOTIDE 2018-0 Yes 72ug QD [address] [facility] (LINZESS 6-11 Gastrostom [facility] ORAL) 14:28: y Tube Medical 50 route Center daily. pantoprazol 2018-0 Yes 40mg QD [address] [facility] 6-11 Gastrostom [facility] (PROTONIX) 14:28: y Tube Medic al 40 MG 50 route Center tablet daily. ranitidine 2018-0 Yes 300mg QD [address] [facility] (ZANTAC) 6-11 Gastrostom [facility] 300 MG 14:28: y Tube Medical capsule 50 route Center every evening. METOPROLOL 2018-0 Yes 12.5mg 12.[address] [facility] TARTRATE 6-11 Gastrostom [facility] ORAL 14:28: y Tube Medical 50 route as Center needed For tachycardi a . ondansetron 2018-0 Yes 8mg Take [address] (ZOFRAN-ODT 6-11 by mouth 3 Marika kes ) 8 MG 14:28: (three) Medical disintegrat 50 times Center ing tablet daily as needed for Nausea. promethazin 2018-0 Yes 25mg Take [address] [facility] e 6-11 by mouth 4 [facility] (PHENERGAN) 14:28: (four) Medi stan 6.25 mg/5 50 times Center mL syrup daily as needed for Nausea. lactulose 2018-0 Yes 30g 30 g by [facility] (CHRONULAC) 04-24 Gastrostom Marika kes 10 gram/15 14:28: y Tube Medic al mL (15 mL) 50 route 3 Center solution (three) times daily as needed . sucralfate 2018-0 Yes 1g 1 g by [facility] (CARAFATE[facility] 04-24 Gastrostom [facility] 100 mg/mL 14:28: y Tube Medica l suspension 50 route as Cente r needed . mometasone 2018-0 Yes 2{spray Q.5D [address] [facility] (NASONEX) 04-24 } by Nasal [facility] 50 14:28: route 2 Medical mcg/actuati 50 (two) Center on nasal times spray daily. azelastine 2017-0 Yes 1{spray [address] [facility] (ASTELIN) 04-24 } Nasal [facility] 137 mcg 14:28: route as Medica l (0.1 %) 50 needed for Center nasal spray Rhinitis Use in each nostril as directed . albuterol 20180 Yes 2.5mg Take 2.[address] [facility] (PROVENTIL) 6-11 mg by [facility] 2.5 mg /3 14:28: nebulizati Me dical mL (0.083 50 on every 6 Cent er %) (six) nebulizer hours as solution needed for Wheezing. ipratropium 2017-0 Yes 3mL Take [address] [facility] -albuterol 6-11 by [facility] (DUO-NEB) 14:28: nebulizati Me dical 0.5 mg-3 50 on every 6 Cente r mg(2.5 mg (six) base)/3 mL hours as nebulizer needed for solution Wheezing. NUT.SUP,SPE 2018-0 Yes 16[oz_a Take [address] [facility] C.FRM,L-FR, 6-11 v] by mouth [facility] IRON/FOS 14:28: as needed. Med ical (TWOCAL HN 50 Center ORAL) sodium 2017-[address] [facility] chloride 6-11 intravenou [facility] 0.9% (NS) 14:28: sly as Medica l infusion 50 needed. Center levalbutero 2018-0 Yes Inhale by [facility] HCl 6-11 mouth via [facility] (XOPENEX 14:28: inhaler. Medic al INHL) 50 Center pregabalin Yes 100mg [id number] Take [address] [facility] (LYRICA) 6-11 [id number] mg by [facility] 100 MG 14:28: 3D mouth 3 Medical capsule 50 (three) Center times daily. ALBUTEROL Yes Take by [facility] SULFATE OR 5-30 mouth. College 20:11: of 59 Medicin e dicyclomine Yes 20mg Take 20 mg [facility] (BENTYL) 20 5-30 by mouth Glenn ege MG tablet 20:11: every 6 of 59 hours. Medicin e Na Yes [SUPREP] [facility] Sulfate-K 5-18 Take as [place] Sulfate-Mg 00:00: directed. of Sulf 00 Medicin (SUPREP e BOWEL PREP KIT) 17.5-3.13-1 .6 GM/180ML SOLN Sucralfate 2015-11 Yes Take by [facility] (CARAFATE 1-10 mouth. [place] OR) 16:39: of 29 Medicin e albuterol 2015-11 Yes 1{ampul Take 1 [facility] (PROVENTIL) 1-10 e} Ampule by [facility] (2.5 mg/3 16:39: nebulizati of mL) 0.083% 29 on once. Medic in nebulizer e solution Scopolamine 2015-[address] [facility] 1 MG/3DAYS 1-10 the skin. Glenn ege [id number] 16:39: of 29 Medicin e Promethazin 2015-11 Yes Take by [place] [facility] e HCl 1-10 mouth. [place] (PHENERGAN 16:39: of OR) 29 Medicin e hyoscyamine 2015-[id number] 1 [facility] (LEVSIN/SL) 11-14 TAB UNDER Col lege 0.125 MG SL 00:00: THE TONGUE of tablet 00 EVERY 4 Medicin HOURS e NEEDED FOR CRAMPING. hyoscyamine 2015-[id number] [facility] (LEVSIN/SL) 11-14 TAB UNDER Col lege 0.125 MG SL 00:00: THE TONGUE of tablet 00 EVERY 4 Medicin HOURS e NEEDED FOR CRAMPING. hyoscyamine 2015-11- No [id number] PLACE 1 [facility] (LEVSIN/SL) 1 05-21 TAB UNDER Co llege 0.125 MG SL 00:00: 00:00 THE TONGUE of tablet 00 :00 EVERY 4 Medicin HOURS e NEEDED FOR CRAMPING. ondansetron 2015-11 Yes 8mg Take 1 Tab [facility] (ZOFRAN 0-17 by mouth [place] ODT) 8 mg 00:00: every 8 of disintegrat 00 hours as Medi corine ing tablet needed for e Nausea. ondansetron 2015-11 Yes 8mg Take 1 Tab [facility] (ZOFRAN 0-17 by mouth [facility] ODT) 8 mg 00:00: every 8 of disintegrat 00 hours as Medi corine ing tablet needed for e Nausea. ondansetron 2015-11- No 8mg Take 1 Tab [facility] (ZOFRAN 0-17 05-21 by mouth [place] ODT) 8 mg 00:00: 00:00 every 8 of disintegrat 00 :00 hours as Medi corine ing tablet needed for e Nausea. ondansetron 2015-11 Yes 4mg Inject 2 [facility] 4 mg/2 mL 0-13 mL into [facility] injection 00:00: the vein 3 of 00 times Medicin daily as e needed for Nausea. Scopolamine 2015-11 Yes 1{patch Place 1 [facility] 1 MG/3DAYS 0-13 } Patch onto [facility] [id number] 00:00: the skin of 00 every 72 Medicin hours. e ondansetron 2015-11 Yes 4mg Inject 2 [facility] 4 mg/2 mL 0-13 mL into [facility] injection 00:00: the vein 3 of 00 times Medicin daily as e needed for Nausea. Scopolamine 2015-11 Yes 1{patch Place 1 [facility] 1 MG/3DAYS 0-13 } Patch onto [facility] PT72 00:00: the skin of 00 every 72 Medicin hours. e ondansetron 2015-11- No 4mg Inject 2 [facility] 4 mg/2 mL 0-13 05-21 mL into Colleg e injection 00:00: 00:00 the vein 3 o f 00 :00 times Medicin daily as e needed for Nausea. Scopolamine 2015-11 2020- No 1{patch Place 1 [facility] 1 MG/3DAYS 0-13 05-21 } Patch onto Co l[facility] [id number] 00:00: 00:00 the skin of 00 :00 every 72 Medicin hours. e hyoscyamine Yes [id number] 375ug Take 1 Tab [facility] (LEVBID) 08 by mouth [facility] 0.375 MG CR 00:00: every 12 of tablet 00 hours as Medicin needed for e Cramping. hyoscyamine Yes [id number] 375ug Take 1 Tab [facility] (LEVBID) 08 by mouth [facility] 0.375 MG CR 00:00: every 12 of tablet 00 hours as Medicin needed for e Cramping. hyoscyamine 2020- No [id number] 375ug Take 1 Tab [facility] (LEVBID) 07-22 by mouth Colleg e 0.375 MG CR 00:00: 00:00 every 12 o f tablet 00 :00 hours as Medicin needed for e Cramping. epinephrine epinephrine No epinephrin [place] 0.3 mg/0.3 0.3 mg/0.3 e 0.3 Fa katie mL mL mg/0.3 mL Practic injection, injection, injection, e auto-inject auto-inject auto-injec or INJECT or INJECT tor INJECT 0.3ML 0.3ML 0.3ML INTRAMUSCUL INTRAMUSCUL INTRAMUSCU TANA TANA LARLY NEEDED FOR NEEDED FOR NEEDED FOR ANAPHYLAXIS ANAPHYLAXIS ANAPHYLAXI S famotidine famotidine No famotidine [place] 20 mg 20 mg 20 mg Family tablet TAKE tablet TAKE tablet Practic 1 TABLET BY 1 TABLET BY TAKE 1 e MOUTH TWICE MOUTH TWICE TABLET BY DAILY DAILY MOUTH TWICE DAILY fluticasone fluticasone No fluticason [place] propionate propionate e Fam earl 50 50 propionate Practic mcg/actuati mcg/actuati 50 e on nasal on nasal mcg/actuat spray,suspe spray,suspe ion nasal nsion nsion spray,susp INSTILL 2 INSTILL 2 ension SPRAYS IN SPRAYS IN INSTILL 2 EACH EACH SPRAYS IN NOSTRIL NOSTRIL EACH EVERY DAY EVERY DAY NOSTRIL EVERY DAY hydroxyzine hydroxyzine No hydroxyzin [place] HCl 50 mg HCl 50 mg e HCl 50 F amily tablet TAKE tablet TAKE mg tablet Practic 1 TABLET BY 1 TABLET BY TAKE 1 e MOUTH 3 MOUTH 3 TABLET BY TIMES DAILY TIMES DAILY MOUTH 3 NEEDED NEEDED TIMES FOR ANXIETY FOR ANXIETY DAILY NEEDED FOR ANXIETY levalbutero levalbutero No levalbuter [facility] l HFA 45 l HFA 45 ol HFA 45 Fa katie mcg/actuati mcg/actuati mcg/actuat Practic on aerosol on aerosol ion e inhaler inhaler aerosol INHALE 1-2 INHALE 1-2 inhaler PUFFS EVERY PUFFS EVERY INHALE 1-2 4 HOURS 4 HOURS PUFFS NEEDED FOR NEEDED FOR EVERY 4 WHEEZING WHEEZING HOURS NEEDED FOR WHEEZING meloxicam meloxicam No meloxicam [facility] 7.5 mg 7.5 mg 7.5 mg Family tablet TAKE tablet TAKE tablet Practic 1 TABLET BY 1 TABLET BY TAKE 1 e MOUTH ONCE MOUTH ONCE TABLET BY DAILY DAILY MOUTH ONCE NEEDED FOR NEEDED FOR DAILY PAIN (SCALE PAIN (SCALE NEEDED FOR 7-10). 7-10). PAIN (SCALE 7-10). methocarbam methocarbam No methocarba [facility] ol 750 mg ol 750 mg mol 750 mg Family tablet TAKE tablet TAKE tablet Practic 1 TABLET BY 1 TABLET BY TAKE 1 e MOUTH EVERY MOUTH EVERY TABLET BY 8 HOURS 8 HOURS MOUTH NEEDED FOR NEEDED FOR EVERY 8 SPASM SPASM HOURS NEEDED FOR SPASM metoclopram metoclopram No 1 TID metoclopra [facility] sera 5 mg sera 5 mg mide 5 mg Fa katie tablet Take tablet Take tablet Practic 1 tablet 3 1 tablet 3 Take 1 e times a day times a day tablet 3 by oral by oral times a route. route. day by oral route. nystatin nystatin No nystatin Mack [facility]io 100,000 100,000 100,000 Family unit/gram unit/gram unit/gram Practic topical topical topical e cream APPLY cream APPLY cream TO AFFECTED TO AFFECTED APPLY TO AREA TWICE AREA TWICE AFFECTED A DAY A DAY AREA TWICE A DAY ondansetron [facility]dans[facility]ron [facility] mg 8 mg n 8 mg Family disintegrat disintegrat disintegra Practic ing tablet ing tablet ting e Place 1 Place 1 tablet tablet [address] 1 times a day times a day tablet 3 by by times a translingua translingua day by l route. l route. translingu al route. ondansetron ondansetron No [facility] HCl 4 mg/5 HCl 4 mg/5 n HCl 4 Family mL oral mL oral mg/5 mL Practi c solution solution oral e TAKE 5ML BY TAKE 5ML BY solution MOUTH TWICE MOUTH TWICE TAKE 5ML DAILY DAILY BY MOUTH NEEDED FOR NEEDED FOR TWICE NAUSEA & NAUSEA & DAILY VOMITING OR VOMITING OR NEEDED FOR NAUSEA/VOMI NAUSEA/VOMI NAUSEA & TING TING VOMITING UNRESPONSIV UNRESPONSIV OR E TO E TO NAUSEA/VOM PROMETHAZIN PROMETHAZIN ITING E E UNRESPONSI VE TO PROMETHAZI NE OneTouch OneTouch [facility] Ultra Ultra Ultra Family Control Control Control Practi c solution solution solution e USE TO USE TO USE TO CALIBRATE CALIBRATE CALIBRATE METER METER METER Oneuch Oneuch No [facility] gio Ultra Test Ultra Test Ultra Test Family strips USE strips USE strips USE Practic TO TEST TO TEST TO TEST e BLOOD BLOOD BLOOD GLUCOSE GLUCOSE GLUCOSE TWICE DAILY TWICE DAILY TWICE DAILY OneTouch OneTouch No OneTouch Mack langleye Ultra2 Ultra2 Ultra2 Family Meter USE Meter USE Meter USE Practic TO TEST TO TEST TO TEST e BLOOD BLOOD BLOOD GLUCOSE GLUCOSE GLUCOSE Ozempic Ozempic No Ozempic [facility] [facility] 0.25 mg or 0.25 mg or 0.25 mg or Family 0.5 mg (2 0.5 mg (2 0.5 mg (2 Practic mg/1.5 mL) mg/1.5 mL) mg/1.5 mL) e subcutaneou subcutaneou subcutaneo s pen s pen us pen injector injector injector INJECT 0.25 INJECT 0.25 INJECT MG UNDER MG UNDER 0.25 MG THE SKIN THE SKIN UNDER THE ONCE A WEEK ONCE A WEEK SKIN ONCE A WEEK pregabalin pregabalin pregabalin [facility] 100 mg 100 mg 100 mg Family capsule capsule capsule Practi c TAKE 1 TAKE 1 TAKE 1 e CAPSULE BY CAPSULE BY CAPSULE BY MOUTH 3 MOUTH 3 MOUTH 3 TIMES DAILY TIMES DAILY TIMES DAILY Safety Safety No Safety [facility] Lancets 28 Lancets 28 Lancets 28 Family gauge USE gauge USE gauge USE Practic TO TEST TO TEST TO TEST e BLOOD BLOOD BLOOD GLUCOSE GLUCOSE GLUCOSE TWICE DAILY TWICE DAILY TWICE DAILY solifenacin solifenacin No solifenaci [facility] 10 mg 10 mg n 10 mg Family tablet TAKE tablet TAKE tablet Practic 1 TABLET BY 1 TABLET BY TAKE 1 e MOUTH EVERY MOUTH EVERY TABLET BY DAY DAY MOUTH EVERY DAY topiramate topiramate No topiramate [facility] 25 mg 25 mg 25 mg Family tablet TAKE tablet TAKE tablet Practic 1 TABLET BY 1 TABLET BY TAKE 1 e MOUTH TWICE MOUTH TWICE TABLET BY DAILY DAILY MOUTH TWICE DAILY tramadol 50 tramadol 50 No tramadol [place] mg tablet mg tablet 50 mg Fami ly TAKE 1 TAKE 1 tablet Practic TABLET BY TABLET BY TAKE 1 e MOUTH EVERY MOUTH EVERY TABLET BY 4 HOURS 4 HOURS MOUTH NEEDED FOR NEEDED FOR EVERY 4 PAIN (MAX PAIN (MAX HOURS 6/DQY). 6/DQY). NEEDED FOR PAIN (MAX 6/DQY). trazodone trazodone No trazodone [facility] 150 mg 150 mg 150 mg Family tablet TAKE tablet TAKE tablet Practic 1 TABLET BY 1 TABLET BY TAKE 1 e MOUTH EVERY MOUTH EVERY TABLET BY DAY AT DAY AT MOUTH BEDTIME BEDTIME EVERY DAY AT BEDTIME Uribel 118 Uribel 118 No Uribel 118 [facility] mg-10 mg-10 mg-10 Family mg-40.8 mg-40.8 mg-40.8 Practi c mg-36 mg mg-36 mg mg-36 mg e capsule capsule capsule TAKE 1 TAKE 1 TAKE 1 CAPSULE BY CAPSULE BY CAPSULE BY MOUTH EVERY MOUTH EVERY MOUTH 8 HOURS 8 HOURS EVERY 8 NEEDED FOR NEEDED FOR HOURS BLADDER BLADDER NEEDED FOR SPASMS. SPASMS. BLADDER SPASMS. venlafaxine venlafaxine venlafaxin [facility] 37.5 mg 37.5 mg e 37.5 mg Fami ly tablet TAKE tablet TAKE tablet Practic 2 TABLETS 2 TABLETS TAKE 2 e BY MOUTH IN BY MOUTH IN TABLETS BY THE MORNING THE MORNING MOUTH IN ~201 TAKE 1 ~201 TAKE 1 THE TABLET BY TABLET BY MORNING MOUTH IN MOUTH IN ~201 TAKE THE THE 1 TABLET AFTERNOON AFTERNOON BY MOUTH ~108Q2 TAKE ~108Q2 TAKE IN THE 2 TABLETS 2 TABLETS AFTERNOON BY MOUTH AT BY MOUTH AT ~108Q2 NIGHT NIGHT TAKE 2 TABLETS BY MOUTH AT NIGHT Advair HFA Advair HFA No Advair HFA [facility] 230 mcg-21 230 mcg-21 230 mcg-21 Family mcg/actuati mcg/actuati mcg/actuat Practic on aerosol on aerosol ion e inhaler inhaler aerosol INHALE TWO INHALE TWO inhaler (2) PUFFS (2) PUFFS INHALE TWO BY MOUTH BY MOUTH (2) PUFFS TWICE DAILY TWICE DAILY BY MOUTH TWICE DAILY azelastine azelastine azelastine [facility] 137 mcg 137 mcg 137 mcg Family (0.1 %) (0.1 %) (0.1 %) Practi c nasal spray nasal spray nasal e aerosol aerosol spray INSTILL ONE INSTILL ONE aerosol (1) SPRAY (1) SPRAY INSTILL IN EACH IN EACH ONE (1) NOSTRIL NOSTRIL SPRAY IN TWICE DAILY TWICE DAILY EACH DIRECTED DIRECTED NOSTRIL TWICE DAILY DIRECTED baclofen 10 baclofen 10 No baclofen [place] mg tablet mg tablet 10 mg Fami ly TAKE 1 TAKE 1 tablet Practic TABLET BY TABLET BY TAKE 1 e MOUTH 3 MOUTH 3 TABLET BY TIMES DAILY TIMES DAILY MOUTH 3 TIMES DAILY cefpodoxime cefpodoxime No cefpodoxim [facility] 200 mg 200 mg e 200 mg Family tablet TAKE tablet TAKE tablet Practic 1 TABLET BY 1 TABLET BY TAKE 1 e MOUTH IN MOUTH IN TABLET BY THE MORNING THE MORNING MOUTH IN AND 1 AND 1 THE TABLET IN TABLET IN MORNING THE THE AND 1 EVENING. DO EVENING. DO TABLET IN ALL THIS ALL THIS THE FOR 7 DAYS. FOR 7 DAYS. EVENING. DO ALL THIS FOR 7 DAYS. chlorhexidi chlorhexidi No chlorhexid [facility] Family gluconate gluconate gluconate Practic 0.12 % 0.12 % 0.12 % e mouthwash mouthwash mouthwash SWISH AND SWISH AND SWISH AND SPIT OUT 15 SPIT OUT 15 SPIT OUT ML 2 (TWO) ML 2 (TWO) 15 ML 2 TIMES DAILY TIMES DAILY (TWO) FOR 30 FOR 30 TIMES DAYS. DAYS. DAILY FOR 30 DAYS. Corlanor Corlanor No Corlanor Mack gio 7.5 mg 7.5 mg 7.5 mg Family tablet TAKE tablet TAKE tablet Practic 1 TABLET BY 1 TABLET BY TAKE 1 e MOUTH IN MOUTH IN TABLET BY THE MORNING THE MORNING MOUTH IN AND 1 AND 1 THE TABLET IN TABLET IN MORNING THE THE AND 1 EVENING. EVENING. TABLET IN THE EVENING. cyanocobala cyanocobala No cyanocobal [facility] min (vit min (vit robles (vit Fa katie B-12) 1,000 B-12) 1,000 B-12) Practic mcg/mL mcg/mL 1,000 e injection injection mcg/mL solution solution injection INJECT 1ML INJECT 1ML solution INTRAMUSCUL INTRAMUSCUL INJECT 1ML TANA EVERY TANA EVERY INTRAMUSCU 14 DAYS FOR 14 DAYS FOR LARLY 3 MONTHS 3 MONTHS EVERY 14 THEN ONCE THEN ONCE DAYS FOR 3 PER MONTH PER MONTH MONTHS THEREAFTER THEREAFTER THEN ONCE PER MONTH THEREAFTER diclofenac diclofenac No diclofenac [facility] potassium potassium potassium [facility] 50 mg 50 mg 50 mg Practic tablet tablet tablet e PLEASE SEE PLEASE SEE PLEASE SEE ATTACHED ATTACHED ATTACHED FOR FOR FOR DETAILED DETAILED DETAILED DIRECTIONS DIRECTIONS DIRECTIONS epinephrine epinephrine No epinephrin [place] 0.3 mg/0.3 0.3 mg/0.3 e 0.3 Fa katie mL mL mg/0.3 mL Practic injection, injection, injection, e auto-inject auto-inject auto-injec or INJECT or INJECT tor INJECT 0.3ML 0.3ML 0.3ML INTRAMUSCUL INTRAMUSCUL INTRAMUSCU TANA TANA LARLY NEEDED FOR NEEDED FOR NEEDED FOR ANAPHYLAXIS ANAPHYLAXIS ANAPHYLAXI S famotidine famotidine No famotidine [facility] 20 mg 20 mg 20 mg Family tablet TAKE tablet TAKE tablet Practic 1 TABLET BY 1 TABLET BY TAKE 1 e MOUTH TWICE MOUTH TWICE TABLET BY DAILY DAILY MOUTH TWICE DAILY fluticasone fluticasone No fluticason [facility] propionate propionate e Fam earl 50 50 propionate Practic mcg/actuati mcg/actuati 50 e on nasal on nasal mcg/actuat spray,suspe spray,suspe ion nasal nsion nsion spray,susp INSTILL 2 INSTILL 2 ension SPRAYS IN SPRAYS IN INSTILL 2 EACH EACH SPRAYS IN NOSTRIL NOSTRIL EACH EVERY DAY EVERY DAY NOSTRIL EVERY DAY hydroxyzine hydroxyzine No hydroxyzin [facility] HCl 50 mg HCl 50 mg e HCl 50 F amily tablet TAKE tablet TAKE mg tablet Practic 1 TABLET BY 1 TABLET BY TAKE 1 e MOUTH THREE MOUTH THREE TABLET BY TIMES A DAY TIMES A DAY MOUTH NEEDED NEEDED THREE FOR ANXIETY FOR ANXIETY TIMES A DAY NEEDED FOR ANXIETY insulin insulin No insulin [facility] lispro lispro lispro Family (U-100) 100 (U-100) 100 (U-100) Practic unit/mL unit/mL 100 e subcutaneou subcutaneou unit/mL s pen TAKE s pen TAKE subcutaneo DIRECTED DIRECTED us pen PER SLIDING PER SLIDING TAKE SCALE *MAX SCALE *MAX DIRECTED DAILY DOSE: DAILY DOSE: PER 100 UNITS* 100 UNITS* SLIDING SCALE *MAX DAILY DOSE: 100 UNITS* Lantus Lantus No Lantus [place] Solostar Solostar Solostar Fam earl U-100 U-100 U-100 Practic Insulin 100 Insulin 100 Insulin e unit/mL (3 unit/mL (3 100 mL) mL) unit/mL (3 subcutaneou subcutaneou mL) s pen s pen subcutaneo INJECT 5 INJECT 5 us pen UNITS UNITS INJECT 5 SUBCUTANEOU SUBCUTANEOU UNITS SLY ONCE SLY ONCE SUBCUTANEO DAILY DAILY USLY ONCE DAILY levalbutero levalbutero No levalbuter [facility] l HFA 45 l HFA 45 ol HFA 45 Fa katie mcg/actuati mcg/actuati mcg/actuat Practic on aerosol on aerosol ion e inhaler inhaler aerosol INHALE 1-2 INHALE 1-2 inhaler PUFFS BY PUFFS BY INHALE 1-2 MOUTH EVERY MOUTH EVERY PUFFS BY 4 HOURS 4 HOURS MOUTH NEEDED FOR NEEDED FOR EVERY 4 WHEEZING WHEEZING HOURS NEEDED FOR WHEEZING meloxicam meloxicam No meloxicam [facility] 7.5 mg 7.5 mg 7.5 mg Family tablet TAKE tablet TAKE tablet Practic 1 TABLET BY 1 TABLET BY TAKE 1 e MOUTH ONCE MOUTH ONCE TABLET BY DAILY DAILY MOUTH ONCE NEEDED FOR NEEDED FOR DAILY PAIN (SCALE PAIN (SCALE NEEDED FOR 7-10). 7-10). PAIN (SCALE 7-10). methocarbam methocarbam No methocarba [facility] ol 750 mg ol 750 mg mol 750 mg Family tablet TAKE tablet TAKE tablet Practic 1 TABLET BY 1 TABLET BY TAKE 1 e MOUTH EVERY MOUTH EVERY TABLET BY 8 HOURS 8 HOURS MOUTH NEEDED FOR NEEDED FOR EVERY 8 SPASM SPASM HOURS NEEDED FOR SPASM metoclopram metoclopram No metoclopra [facility] sera 5 mg sera 5 mg mide 5 mg Fa katie tablet TAKE tablet TAKE tablet Practic 1 TABLET 3 1 TABLET 3 TAKE 1 e TIMES A DAY TIMES A DAY TABLET 3 BY ORAL BY ORAL TIMES A ROUTE. ROUTE. DAY BY ORAL ROUTE. Novolog Novolog No Novolog [place] [facility] Flexpen Flexpen Flexpen Family U-100 U-100 U-100 Practic Insulin Insulin Insulin e aspart 100 aspart 100 aspart 100 unit/mL (3 unit/mL (3 unit/mL (3 mL) mL) mL) subcutaneou subcutaneou subcutaneo s take as s take as us take as directed in directed in directed sliding sliding in sliding scale max scale max scale max is 100 is 100 is 100 units per units per units per day day day nystatin nystatin No nystatin [facility] 100,000 100,000 100,000 Family unit/gram unit/gram unit/gram Practic topical topical topical e cream APPLY cream APPLY cream TO AFFECTED TO AFFECTED APPLY TO AREA TWICE AREA TWICE AFFECTED A DAY A DAY AREA TWICE A DAY ondansetron ondansetron No ondansetro [facility] 8 mg 8 mg n 8 mg Family disintegrat disintegrat disintegra Practic ing tablet ing tablet ting e PLACE 1 PLACE 1 tablet TABLET [address] 1 TIMES A DAY TIMES A DAY TABLET 3 BY BY TIMES A TRANSLINGUA TRANSLINGUA DAY BY L ROUTE. L ROUTE. TRANSLINGU AL ROUTE. OneTouch OneTouch No OneTouch [facility] langleye Ultra Ultra Ultra Family Control Control Control Practi c solution solution solution e USE TO USE TO USE TO CALIBRATE CALIBRATE CALIBRATE METER METER METER OneTouch OneTouch No OneTouch Mack langleye Ultra Test Ultra Test Ultra Test Family strips USE strips USE strips USE Practic TO TEST TO TEST TO TEST e BLOOD BLOOD BLOOD GLUCOSE GLUCOSE GLUCOSE TWICE DAILY TWICE DAILY TWICE DAILY OneTouch OneTouch No KelleyTouch [place] langleye Ultra2 Ultra2 Ultra2 Family Meter USE Meter USE Meter USE Practic TO TEST TO TEST TO TEST e BLOOD BLOOD BLOOD GLUCOSE GLUCOSE GLUCOSE Ozempic Ozempic No Ozempic [place] [facility] 0.25 mg or 0.25 mg or 0.25 mg or Family 0.5 mg (2 0.5 mg (2 0.5 mg (2 Practic mg/1.5 mL) mg/1.5 mL) mg/1.5 mL) e subcutaneou subcutaneou subcutaneo s pen s pen us pen injector injector injector INJECT 0.25 INJECT 0.25 INJECT MG UNDER MG UNDER 0.25 MG THE SKIN THE SKIN UNDER THE ONCE A WEEK ONCE A WEEK SKIN ONCE A WEEK pregabalin pregabalin pregabalin [facility] 100 mg 100 mg 100 mg Family capsule capsule capsule Practi c TAKE 1 TAKE 1 TAKE 1 e CAPSULE BY CAPSULE BY CAPSULE BY MOUTH 3 MOUTH 3 MOUTH 3 TIMES DAILY TIMES DAILY TIMES DAILY Pro Comfort Pro Comfort No Pro V illage Alcohol Alcohol Comfort Family Pads USE TO Pads USE TO Alcohol Practic TEST BLOOD TEST BLOOD Pads USE e GLUCOSE GLUCOSE TO TEST TWICE DAILY TWICE DAILY BLOOD GLUCOSE TWICE DAILY Safety Safety No Safety [place] Lancets 28 Lancets 28 Lancets 28 Family gauge USE gauge USE gauge USE Practic TO TEST TO TEST TO TEST e BLOOD BLOOD BLOOD GLUCOSE GLUCOSE GLUCOSE TWICE DAILY TWICE DAILY TWICE DAILY solifenacin solifenacin No solifenaci [facility] 10 mg 10 mg n 10 mg Family tablet TAKE tablet TAKE tablet Practic 1 TABLET BY 1 TABLET BY TAKE 1 e MOUTH EVERY MOUTH EVERY TABLET BY DAY DAY MOUTH EVERY DAY topiramate topiramate topiramate [facility] 25 mg 25 mg 25 mg Family tablet TAKE tablet TAKE tablet Practic 1 TABLET BY 1 TABLET BY TAKE 1 e MOUTH TWICE MOUTH TWICE TABLET BY DAILY DAILY MOUTH TWICE DAILY tramadol 50 tramadol 50 No tramadol [place] mg tablet mg tablet 50 mg Fami ly TAKE 1 TAKE 1 tablet Practic TABLET BY TABLET BY TAKE 1 e MOUTH EVERY MOUTH EVERY TABLET BY 4 HOURS 4 HOURS MOUTH NEEDED FOR NEEDED FOR EVERY 4 PAIN (MAX PAIN (MAX HOURS 6/DQY). 6/DQY). NEEDED FOR PAIN (MAX 6/DQY). trazodone trazodone No trazodone [facility] 150 mg 150 mg 150 mg Family tablet TAKE tablet TAKE tablet Practic 1 TABLET BY 1 TABLET BY TAKE 1 e MOUTH EVERY MOUTH EVERY TABLET BY DAY AT DAY AT MOUTH BEDTIME BEDTIME EVERY DAY AT BEDTIME Uribel 118 Uribel 118 No Uribel 118 [facility] mg-10 mg-10 mg-10 Family mg-40.8 mg-40.8 mg-40.8 Practi c mg-36 mg mg-36 mg mg-36 mg e capsule capsule capsule TAKE 1 TAKE 1 TAKE 1 CAPSULE BY CAPSULE BY CAPSULE BY MOUTH EVERY MOUTH EVERY MOUTH 8 HOURS 8 HOURS EVERY 8 NEEDED FOR NEEDED FOR HOURS BLADDER BLADDER NEEDED FOR SPASMS. SPASMS. BLADDER SPASMS. venlafaxine venlafaxine No venlafaxin [facility] 37.5 mg 37.5 mg e 37.5 mg Fami ly tablet TAKE tablet TAKE tablet Practic 2 TABLETS 2 TABLETS TAKE 2 e BY MOUTH IN BY MOUTH IN TABLETS BY THE MORNING THE MORNING MOUTH IN ~201 TAKE 1 ~201 TAKE 1 THE TABLET BY TABLET BY MORNING MOUTH IN MOUTH IN ~201 TAKE THE THE 1 TABLET AFTERNOON AFTERNOON BY MOUTH ~108Q2 TAKE ~108Q2 TAKE IN THE 2 TABLETS 2 TABLETS AFTERNOON BY MOUTH AT BY MOUTH AT ~108Q2 NIGHT NIGHT TAKE 2 TABLETS BY MOUTH AT NIGHT Advair HFA Advair HFA No Advair HFA [facility] 230 mcg-21 230 mcg-21 230 mcg-21 Family mcg/actuati mcg/actuati mcg/actuat Practic on aerosol on aerosol ion e inhaler inhaler aerosol INHALE TWO INHALE TWO inhaler (2) PUFFS (2) PUFFS INHALE TWO BY MOUTH BY MOUTH (2) PUFFS TWICE DAILY TWICE DAILY BY MOUTH TWICE DAILY azelastine azelastine No azelastine [facility] 137 mcg 137 mcg 137 mcg Family (0.1 %) (0.1 %) (0.1 %) Practi c nasal spray nasal spray nasal e aerosol aerosol spray INSTILL ONE INSTILL ONE aerosol (1) SPRAY (1) SPRAY INSTILL IN EACH IN EACH ONE (1) NOSTRIL NOSTRIL SPRAY IN TWICE DAILY TWICE DAILY EACH DIRECTED DIRECTED NOSTRIL TWICE DAILY DIRECTED chlorhexidi chlorhexidi No chlorhexid [facility] ne ne ine Family gluconate gluconate gluconate Practic 0.12 % 0.12 % 0.12 % e mouthwash mouthwash mouthwash SWISH AND SWISH AND SWISH AND SPIT OUT 15 SPIT OUT 15 SPIT OUT ML 2 (TWO) ML 2 (TWO) 15 ML 2 TIMES DAILY TIMES DAILY (TWO) FOR 30 FOR 30 TIMES DAYS. DAYS. DAILY FOR 30 DAYS. Corlanor Corlanor No Corlanor Mack gio 7.5 mg 7.5 mg 7.5 mg Family tablet TAKE tablet TAKE tablet Practic 1 TABLET BY 1 TABLET BY TAKE 1 e MOUTH TWICE MOUTH TWICE TABLET BY A DAY svt A DAY svt MOUTH TWICE A DAY svt cyanocobala cyanocobala No cyanocobal [place] min (vit min (vit robles (vit Fa katie B-12) 1,000 B-12) 1,000 B-12) Practic mcg/mL mcg/mL 1,000 e injection injection mcg/mL solution solution injection INJECT 1ML INJECT 1ML solution INTRAMUSCUL INTRAMUSCUL INJECT 1ML TANA EVERY TANA EVERY INTRAMUSCU 14 DAYS FOR 14 DAYS FOR LARLY 3 MONTHS 3 MONTHS EVERY 14 THEN ONCE THEN ONCE DAYS FOR 3 PER MONTH PER MONTH MONTHS THEREAFTER THEREAFTER THEN ONCE PER MONTH THEREAFTER Easy Touch Easy Touch No Easy Touch [place] Alcohol Alcohol Alcohol Family Prep Pads Prep Pads Prep Pads Practic USE USE USE e DIRECTED DIRECTED DIRECTED THREE TIMES THREE TIMES THREE A DAY A DAY TIMES A DAY Immunizations Ordered Immunization Filled Immunization Date Status Commen ts Source Name Name Influenza Virus 2022-09-30 [facility] [place] [facility] Preserv and ABX Free Bran ch 6 MO-64 YRS Influenza Virus 2022-09-30 Completed [facility]:00 [place] [facility] Preserv and ABX Free Bran ch 6 MO-64 YRS Influenza Virus 2022-09-30 Completed [facility]:00 [place] [facility] Preserv and ABX Free Bran ch 6 MO-64 YRS Influenza Virus 2022-09-30 Completed [facility], [facility]:00 [place] [facility] Preserv and ABX Free Bran ch 6 MO-64 YRS Influenza Virus 2022-09-30 Completed [facility], [facility]:00 [place] [facility] Preserv and ABX Free Bran ch 6 MO-64 YRS Influenza Virus 2022-09-30 Completed [facility], [facility]:00:00 [place] [facility] Preserv and ABX Free Bran ch 6 MO-64 YRS Influenza Virus 2022-09-30 Completed [facility], [facility]:00:00 [place] [facility] Preserv and ABX Free Bran ch 6 MO-64 YRS Influenza Virus 2022-09-30 Completed [facility], 00:00:00 [place] [facility] Preserv and ABX Free Bran ch 6 MO-64 YRS Influenza Virus 2022-09-30 Completed [facility], 00:00:00 [place] [facility] Preserv and ABX Free Bran ch 6 MO-64 YRS Influenza Virus 2022-09-30 Completed [facility], 00:00:00 [place] [facility] Preserv and ABX Free Bran ch 6 MO-64 YRS Influenza Virus 2022-09-30 Completed [facility], 00:00:00 [place] [facility] Preserv and ABX Free Bran ch 6 MO-64 YRS Influenza Virus 2022-09-30 Completed [facility], 00:00:00 [place] [facility] Preserv and ABX Free Bran ch 6 MO-64 YRS Influenza Virus 2022-09-30 Completed [facility], 00:00:00 [place] [facility] Preserv and ABX Free Bran ch 6 MO-64 YRS Influenza Virus 2022-09-30 Completed [facility], 00:00:00 [place] [facility] Preserv and ABX Free Bran ch 6 MO-64 YRS Influenza Virus 2022-09-30 Completed [facility], 00:00:00 [place] [facility] Preserv and ABX Free Bran ch 6 MO-64 YRS Influenza Virus 2022-09-30 Completed [facility], 00:00:00 [place] [facility] Preserv and ABX Free Bran ch 6 MO-64 YRS Influenza Virus 2022-09-30 Completed [facility], 00:00:00 [place] [facility] Preserv and ABX Free Bran ch 6 MO-64 YRS Influenza Virus 2022-09-30 Completed [facility], 00:00:00 [place] [facility] Preserv and ABX Free Bran ch 6 MO-64 YRS Influenza Virus 2022-09-30 Completed [facility], 00:00:00 [place] [facility] Preserv and ABX Free Bran ch 6 MO-64 YRS Influenza Virus 2022-09-30 Completed [facility], 00:00:00 [place] [facility] Preserv and ABX Free Bran ch 6 MO-64 YRS Influenza Virus 2022-09-30 Completed [facility], 00:00:00 [place] [facility] Preserv and ABX Free Bran ch 6 MO-64 YRS Influenza Virus 2022-09-30 Completed [facility], 00:00:00 [place] [facility] Preserv and ABX Free Bran ch 6 MO-64 YRS Influenza Virus 2022-09-30 Completed [facility], 00:00:00 [place] [facility] Preserv and ABX Free Bran ch 6 MO-64 YRS Influenza Virus 2022-09-30 Completed [facility], 00:00:00 [place] [facility] Preserv and ABX Free Bran ch 6 MO-64 YRS Influenza Virus 2022-09-30 Completed [facility], 00:00:00 [place] [facility] Preserv and ABX Free Bran ch 6 MO-64 YRS Influenza Virus 2022-09-30 Completed [facility], 00:00:00 [place] [facility] Preserv and ABX Free Bran ch 6 MO-64 YRS Influenza Virus 2022-09-30 Completed [facility], 00:00:00 [place] [facility] Preserv and ABX Free Bran ch 6 MO-64 YRS Influenza Virus 2022-09-30 Completed [facility], 00:00:00 [place] [facility] Preserv and ABX Free Bran ch 6 MO-64 YRS Influenza Virus 2022-09-30 Completed [facility], 00:00:00 [place] [facility] Preserv and ABX Free Bran ch 6 MO-64 YRS Influenza Virus 2022-09-30 Completed [facility], 00:00:00 [place] [facility] Preserv and ABX Free Bran ch 6 MO-64 YRS Influenza Virus 2022-09-30 Completed [facility], 00:00:00 [place] [facility] Preserv and ABX Free Bran ch 6 MO-64 YRS Influenza Virus 2022-09-30 Completed [facility], 00:00:00 [place] [facility] Preserv and ABX Free Bran ch 6 MO-64 YRS Influenza Virus 2022-09-30 Completed [facility], 00:00:00 [place] [facility] Preserv and ABX Free Bran ch 6 MO-64 YRS Influenza Virus 2022-09-30 Completed [facility], 00:00:00 [place] [facility] Preserv and ABX Free Bran ch 6 MO-64 YRS Influenza Virus 2022-09-30 Completed [facility], 00:00:00 [place] [facility] Preserv and ABX Free Bran ch 6 MO-64 YRS Influenza Virus 2022-09-30 Completed [facility], 00:00:00 [place] [facility] Preserv and ABX Free Bran ch 6 MO-64 YRS Influenza Virus 2022-09-30 Completed [facility], 00:00:00 [place] [facility] Preserv and ABX Free Bran ch 6 MO-64 YRS Influenza Virus 2022-09-30 Completed [facility], 00:00:00 [place] [facility] Preserv and ABX Free Bran ch 6 MO-64 YRS Influenza Virus 2022-09-30 Completed [facility], 00:00:00 [place] [facility] Preserv and ABX Free Bran ch 6 MO-64 YRS Influenza Virus 2022-09-30 Completed [facility], 00:00:00 [place] [facility] Preserv and ABX Free Bran ch 6 MO-64 YRS Influenza Virus 2022-09-30 Completed [facility], 00:00:00 [place] [facility] Preserv and ABX Free Bran ch 6 MO-64 YRS Influenza Virus 2022-09-30 Completed [facility], 00:00:00 [place] [facility] Preserv and ABX Free Bran ch 6 MO-64 YRS Influenza Virus 2022-09-30 Completed [facility], 00:00:00 [place] [facility] Preserv and ABX Free Bran ch 6 MO-64 YRS Influenza Virus 2022-09-30 Completed [facility], 00:00:00 [place] [facility] Preserv and ABX Free Bran ch 6 MO-64 YRS Influenza Virus 2022-09-30 Completed [facility], 00:00:00 [place] [facility] Preserv and ABX Free Bran ch 6 MO-64 YRS Influenza Virus 2022-09-30 Completed [facility], 00:00:00 [place] [facility] Preserv and ABX Free Bran ch 6 MO-64 YRS Influenza Virus 2022-09-30 Completed [facility], 00:00:00 [place] [facility] Preserv and ABX Free Bran ch 6 MO-64 YRS Influenza Virus 2022-09-30 Completed [facility], 00:00:00 [place] [facility] Preserv and ABX Free Bran ch 6 MO-64 YRS Influenza Virus 2022-09-30 Completed [facility], 00:00:00 [place] [facility] Preserv and ABX Free Bran ch 6 MO-64 YRS Influenza Virus 2022-09-30 Completed [facility], 00:00:00 [place] [facility] Preserv and ABX Free Bran ch 6 MO-64 YRS Influenza Virus 2022-09-30 Completed [facility], 00:00:00 [place] [facility] Preserv and ABX Free Bran ch 6 MO-64 YRS Influenza Virus 2022-09-30 Completed [facility], 00:00:00 [place] [facility] Preserv and ABX Free Bran ch 6 MO-64 YRS Influenza Virus 2022-09-30 Completed [facility], 00:00:00 [place] [facility] Preserv and ABX Free Bran ch 6 MO-64 YRS Influenza Virus 2022-09-30 Completed [facility] 00:00:00 [place] [facility] Preserv and ABX Free Bran ch 6 MO-64 YRS Influenza Virus 2022-09-30 Completed [facility], 00:00:00 [place] [facility] Preserv and ABX Free Bran ch 6 MO-64 YRS Influenza Virus 2022-09-30 Completed [facility], 00:00:00 [place] [facility] Preserv and ABX Free Bran ch 6 MO-64 YRS Influenza Virus 2022-09-30 Completed [facility], 00:00:00 [place] [facility] Preserv and ABX Free Bran ch 6 MO-64 YRS Influenza Virus 2022-09-30 Completed [facility], 00:00:00 [place] [facility] Preserv and ABX Free Bran ch 6 MO-64 YRS Influenza Virus 2022-09-30 Completed [facility], 00:00:00 [place] [facility] Preserv and ABX Free Bran ch 6 MO-64 YRS Influenza Virus 2022-09-30 Completed [facility], 00:00:00 [place] [facility] Preserv and ABX Free Bran ch 6 MO-64 YRS Influenza Virus 2022-09-30 Completed [facility], 00:00:00 [place] [facility] Preserv and ABX Free Bran ch 6 MO-64 YRS Influenza Virus 2022-09-30 Completed [facility], 00:00:00 [place] [facility] Preserv and ABX Free Bran ch 6 MO-64 YRS Influenza Virus 2022-09-30 Completed [facility], 00:00:00 [place] [facility] Preserv and ABX Free Bran ch 6 MO-64 YRS Influenza Virus 2022-09-30 Completed [facility], 00:00:00 [place] [facility] Preserv and ABX Free Bran ch 6 MO-64 YRS Influenza Virus 2022-09-30 Completed [facility], 00:00:00 [place] [facility] Preserv and ABX Free Bran ch 6 MO-64 YRS Influenza Virus 2022-09-30 Completed [facility], 00:00:00 [place] [facility] Preserv and ABX Free Bran ch 6 MO-64 YRS Influenza Virus 2022-09-30 Completed [facility], 00:00:00 [place] [facility] Preserv and ABX Free Bran ch 6 MO-64 YRS Influenza Virus 2022-09-30 Completed [facility], 00:00:00 [place] [facility] Preserv and ABX Free Bran ch 6 MO-64 YRS Influenza Virus 2022-09-30 Completed [facility], 00:00:00 [place] [facility] Preserv and ABX Free Bran ch 6 MO-64 YRS Influenza Virus 2022-09-30 Completed [facility], 00:00:00 [place] [facility] Preserv and ABX Free Bran ch 6 MO-64 YRS Influenza Virus 2022-09-30 Completed [facility], 00:00:00 [place] [facility] Preserv and ABX Free Bran ch 6 MO-64 YRS Influenza Virus 2021-11-24 Completed [facility], 00:00:00 [place] [facility] Preserv and ABX Free Bran ch 6 MO-64 YRS Influenza Virus 2021-11-24 Completed [facility], 00:00:00 [place] [facility] Preserv and ABX Free Bran ch 6 MO-64 YRS Influenza Virus 2021-11-24 Completed [facility], 00:00:00 [place] [facility] Preserv and ABX Free Bran ch 6 MO-64 YRS Influenza Virus 2021-11-24 Completed [facility], 00:00:00 [place] [facility] Preserv and ABX Free Bran ch 6 MO-64 YRS Influenza Virus 2021-11-24 Completed [facility], 00:00:00 [place] [facility] Preserv and ABX Free Bran ch 6 MO-64 YRS Influenza Virus 2021-11-24 Completed [facility], 00:00:00 [place] [facility] Preserv and ABX Free Bran ch 6 MO-64 YRS Influenza Virus 2021-11-24 Completed [facility], 00:00:00 [place] [facility] Preserv and ABX Free Bran ch 6 MO-64 YRS Influenza Virus 2021-11-24 Completed [facility], 00:00:00 [place] [facility] Preserv and ABX Free Bran ch 6 MO-64 YRS Influenza Virus 2021-11-24 Completed [facility], 00:00:00 [place] [facility] Preserv and ABX Free Bran ch 6 MO-64 YRS Influenza Virus 2021-11-24 Completed [facility], 00:00:00 [place] [facility] Preserv and ABX Free Bran ch 6 MO-64 YRS Influenza Virus 2021-11-24 Completed [facility], 00:00:00 [place] [facility] Preserv and ABX Free Bran ch 6 MO-64 YRS Influenza Virus 2021-11-24 Completed [facility], 00:00:00 [place] [facility] Preserv and ABX Free Bran ch 6 MO-64 YRS Influenza Virus 2021-11-24 Completed [facility], 00:00:00 [place] [facility] Preserv and ABX Free Bran ch 6 MO-64 YRS Influenza Virus 2021-11-24 Completed [facility], 00:00:00 [place] [facility] Preserv and ABX Free Bran ch 6 MO-64 YRS Influenza Virus 2021-11-24 Completed [facility], 00:00:00 [place] [facility] Preserv and ABX Free Bran ch 6 MO-64 YRS Influenza Virus 2021-11-24 Completed [facility], 00:00:00 [place] [facility] Preserv and ABX Free Bran ch 6 MO-64 YRS Influenza Virus 2021-11-24 Completed [facility], 00:00:00 [place] [facility] Preserv and ABX Free Bran ch 6 MO-64 YRS Influenza Virus 2021-11-24 Completed [facility], 00:00:00 [place] [facility] Preserv and ABX Free Bran ch 6 MO-64 YRS Influenza Virus 2021-11-24 Completed [facility], 00:00:00 [place] [facility] Preserv and ABX Free Bran ch 6 MO-64 YRS Influenza Virus 2021-11-24 Completed [facility], 00:00:00 [place] [facility] Preserv and ABX Free Bran ch 6 MO-64 YRS Influenza Virus 2021-11-24 Completed [facility], 00:00:00 [place] [facility] Preserv and ABX Free Bran ch 6 MO-64 YRS Influenza Virus 2021-11-24 Completed [facility], 00:00:00 [place] [facility] Preserv and ABX Free Bran ch 6 MO-64 YRS Influenza Virus 2021-11-24 Completed [facility], 00:00:00 [place] [facility] Preserv and ABX Free Bran ch 6 MO-64 YRS Influenza Virus 2021-11-24 Completed [facility], 00:00:00 [place] [facility] Preserv and ABX Free Bran ch 6 MO-64 YRS Influenza Virus 2021-11-24 Completed [facility], 00:00:00 [place] [facility] Preserv and ABX Free Bran ch 6 MO-64 YRS Influenza Virus 2021-11-24 Completed [facility], 00:00:00 [place] [facility] Preserv and ABX Free Bran ch 6 MO-64 YRS Influenza Virus 2021-11-24 Completed [facility], 00:00:00 [place] [facility] Preserv and ABX Free Bran ch 6 MO-64 YRS Influenza Virus 2021-11-24 Completed [facility], 00:00:00 [place] [facility] Preserv and ABX Free Bran ch 6 MO-64 YRS Influenza Virus 2021-11-24 Completed [facility], 00:00:00 [place] [facility] Preserv and ABX Free Bran ch 6 MO-64 YRS Influenza Virus 2021-11-24 Completed [facility], 00:00:00 [place] [facility] Preserv and ABX Free Bran ch 6 MO-64 YRS Influenza Virus 2021-11-24 Completed [facility], 00:00:00 [place] [facility] Preserv and ABX Free Bran ch 6 MO-64 YRS Influenza Virus 2021-11-24 Completed [facility], 00:00:00 [place] [facility] Preserv and ABX Free Bran ch 6 MO-64 YRS Influenza Virus 2021-11-24 Completed [facility], 00:00:00 [place] [facility] Preserv and ABX Free Bran ch 6 MO-64 YRS Influenza Virus 2021-11-24 Completed [facility], 00:00:00 [place] [facility] Preserv and ABX Free Bran ch 6 MO-64 YRS Influenza Virus 2021-11-24 Completed [facility], 00:00:00 [place] [facility] Preserv and ABX Free Bran ch 6 MO-64 YRS Influenza Virus 2021-11-24 Completed [facility], 00:00:00 [place] [facility] Preserv and ABX Free Bran ch 6 MO-64 YRS Influenza Virus 2021-11-24 Completed [facility], 00:00:00 [place] [facility] Preserv and ABX Free Bran ch 6 MO-64 YRS Influenza Virus 2021-11-24 Completed [facility], 00:00:00 [place] [facility] Preserv and ABX Free Bran ch 6 MO-64 YRS Influenza Virus 2021-11-24 Completed [facility], 00:00:00 [place] [facility] Preserv and ABX Free Bran ch 6 MO-64 YRS Influenza Virus 2021-11-24 Completed [facility], 00:00:00 [place] [facility] Preserv and ABX Free Bran ch 6 MO-64 YRS Influenza Virus 2021-11-24 Completed [facility], 00:00:00 [place] [facility] Preserv and ABX Free Bran ch 6 MO-64 YRS Influenza Virus 2021-11-24 Completed [facility], 00:00:00 [place] [facility] Preserv and ABX Free Bran ch 6 MO-64 YRS Influenza Virus 2021-11-24 Completed [facility], 00:00:00 [place] [facility] Preserv and ABX Free Bran ch 6 MO-64 YRS Influenza Virus 2021-11-24 Completed [facility], 00:00:00 [place] [facility] Preserv and ABX Free Bran ch 6 MO-64 YRS Influenza Virus 2021-11-24 Completed [facility], 00:00:00 [place] [facility] Preserv and ABX Free Bran ch 6 MO-64 YRS Influenza Virus 2021-11-24 Completed [facility], 00:00:00 [place] [facility] Preserv and ABX Free Bran ch 6 MO-64 YRS Influenza Virus 2021-11-24 Completed [facility], 00:00:00 [place] [facility] Preserv and ABX Free Bran ch 6 MO-64 YRS Influenza Virus 2021-11-24 Completed [facility], 00:00:00 [place] [facility] Preserv and ABX Free Bran ch 6 MO-64 YRS Influenza Virus 2021-11-24 Completed [facility], 00:00:00 [place] [facility] Preserv and ABX Free Bran ch 6 MO-64 YRS Influenza Virus 2021-11-24 Completed [facility], 00:00:00 [place] [facility] Preserv and ABX Free Bran ch 6 MO-64 YRS Influenza Virus 2021-11-24 Completed [facility], 00:00:00 [place] [facility] Preserv and ABX Free Bran ch 6 MO-64 YRS Influenza Virus 2021-11-24 Completed [facility], 00:00:00 [place] [facility] Preserv and ABX Free Bran ch 6 MO-64 YRS Influenza Virus 2021-11-24 Completed [facility], 00:00:00 [place] [facility] Preserv and ABX Free Bran ch 6 MO-64 YRS Influenza Virus 2021-11-24 Completed [facility], 00:00:00 [place] [facility] Preserv and ABX Free Bran ch 6 MO-64 YRS Influenza Virus 2021-11-24 Completed [facility], 00:00:00 [place] [facility] Preserv and ABX Free Bran ch 6 MO-64 YRS Influenza Virus 2021-11-24 Completed [facility], 00:00:00 [place] [facility] Preserv and ABX Free Bran ch 6 MO-64 YRS Influenza Virus 2021-11-24 Completed [facility], 00:00:00 [place] [facility] Preserv and ABX Free Bran ch 6 MO-64 YRS Influenza Virus 2021-11-24 Completed [facility], 00:00:00 [place] [facility] Preserv and ABX Free Bran ch 6 MO-64 YRS Influenza Virus 2021-11-24 Completed [facility], 00:00:00 [place] [facility] Preserv and ABX Free Bran ch 6 MO-64 YRS Influenza Virus 2021-11-24 Completed [facility], 00:00:00 [place] [facility] Preserv and ABX Free Bran ch 6 MO-64 YRS Influenza Virus 2021-11-24 Completed [facility], 00:00:00 [place] [facility] Preserv and ABX Free Bran ch 6 MO-64 YRS Influenza Virus 2021-11-24 Completed [facility], 00:00:00 [place] [facility] Preserv and ABX Free Bran ch 6 MO-64 YRS Influenza Virus 2021-11-24 Completed [facility], 00:00:00 [place] [facility] Preserv and ABX Free Bran ch 6 MO-64 YRS Influenza Virus 2021-11-24 Completed [facility], 00:00:00 [place] [facility] Preserv and ABX Free Bran ch 6 MO-64 YRS Influenza Virus 2021-11-24 Completed [facility], 00:00:00 [place] [facility] Preserv and ABX Free Bran ch 6 MO-64 YRS Influenza Virus 2021-11-24 Completed [facility], 00:00:00 [place] [facility] Preserv and ABX Free Bran ch 6 MO-64 YRS Influenza Virus 2021-11-24 Completed [facility], 00:00:00 [place] [facility] Preserv and ABX Free Bran ch 6 MO-64 YRS Influenza Virus 2021-11-24 Completed [facility], 00:00:00 [place] [facility] Preserv and ABX Free Bran ch 6 MO-64 YRS Influenza Virus 2021-11-24 Completed [facility] 00:00:00 [place] [facility] Preserv and ABX Free Bran ch 6 MO-64 YRS Influenza Virus 2021-11-24 [facility]pleted [facility] [place] [facility] Preserv and ABX Free Bran ch 6 MO-64 YRS Influenza Virus 2021-11-24 Completed [facility], [facility]:00 [place] [facility] Preserv and ABX Free Bran ch 6 MO-64 YRS Influenza Virus 2021-11-24 Completed [facility], 00:[facility]:00 [place] [facility] Preserv and ABX Free Bran ch 6 MO-64 YRS Influenza Virus 2021-11-24 Completed [facility], 00:[facility]:00 [place] [facility] Preserv and ABX Free Bran ch 6 MO-64 YRS Influenza Virus 2021-11-24 Completed [facility], 00:00:00 [place] [facility] Preserv and ABX Free Bran ch 6 MO-64 YRS Influenza Virus 2021-11-24 Completed [facility], 00:00:00 [place] [facility] Preserv and ABX Free Bran ch 6 MO-64 YRS Influenza Virus 2021-11-24 Completed [facility], 00:00:00 [place] [facility] Preserv and ABX Free Bran ch 6 MO-64 YRS Influenza Virus 2021-11-24 Completed [facility], 00:00:00 [place] [facility] Preserv and ABX Free Bran ch 6 MO-64 YRS Influenza Virus 2021-11-24 Completed [facility], 00:00:00 [place] [facility] Preserv and ABX Free Bran ch 6 MO-64 YRS Influenza Virus 2021-11-24 Completed [facility], 00:00:00 [place] [facility] Preserv and ABX Free Bran ch 6 MO-64 YRS Influenza Virus 2021-11-24 Completed [facility], 00:00:00 [place] [facility] Preserv and ABX Free Bran ch 6 MO-64 YRS Influenza Virus 2021-11-24 Completed [facility], 00:00:00 [place] [facility] Preserv and ABX Free Bran ch 6 MO-64 YRS Influenza Virus 2021-11-24 Completed [facility], 00:00:00 [place] [facility] Preserv and ABX Free Bran ch 6 MO-64 YRS Influenza Virus 2021-11-24 Completed [facility], 00:00:00 [place] [facility] Preserv and ABX Free Bran ch 6 MO-64 YRS Influenza Virus 2021-11-24 Completed [facility], 00:00:00 [place] [facility] Preserv and ABX Free Bran ch 6 MO-64 YRS Influenza Virus 2021-11-24 Completed [facility], 00:00:00 [place] [facility] Preserv and ABX Free Bran ch 6 MO-64 YRS Influenza Virus 2021-11-24 Completed [facility], 00:00:00 [place] [facility] Preserv and ABX Free Bran ch 6 MO-64 YRS Influenza Virus 2021-11-24 Completed [facility], 00:00:00 [place] [facility] Preserv and ABX Free Bran ch 6 MO-64 YRS Influenza Virus 2021-11-24 Completed [facility], 00:00:00 [place] [facility] Preserv and ABX Free Bran ch 6 MO-64 YRS Influenza Virus 2021-11-24 Completed [facility], 00:00:00 [place] [facility] Preserv and ABX Free Bran ch 6 MO-64 YRS Influenza Virus 2021-11-24 Completed [facility], 00:00:00 [place] [facility] Preserv and ABX Free Bran ch 6 MO-64 YRS Influenza Virus 2021-11-24 Completed [facility], 00:00:00 [place] [facility] Preserv and ABX Free Bran ch 6 MO-64 YRS Influenza Virus 2021-11-24 Completed [facility], 00:00:00 [place] [facility] Preserv and ABX Free Bran ch 6 MO-64 YRS Influenza Virus 2021-11-24 Completed [facility], 00:00:00 [place] [facility] Preserv and ABX Free Bran ch 6 MO-64 YRS Influenza Virus 2021-11-24 Completed [facility], 00:00:00 [place] [facility] Preserv and ABX Free Bran ch 6 MO-64 YRS Influenza Virus 2021-11-24 Completed [facility], 00:00:00 [place] [facility] Preserv and ABX Free Bran ch 6 MO-64 YRS Influenza Virus 2021-11-24 Completed [facility], 00:00:00 [place] [facility] Preserv and ABX Free Bran ch 6 MO-64 YRS Influenza Virus 2021-11-24 Completed [facility], 00:00:00 [place] [facility] Preserv and ABX Free Bran ch 6 MO-64 YRS Influenza Virus 2021-11-24 Completed [facility], 00:00:00 [place] [facility] Preserv and ABX Free Bran ch 6 MO-64 YRS Influenza Virus 2021-11-24 Completed [facility], 00:00:00 [place] [facility] Preserv and ABX Free Bran ch 6 MO-64 YRS Influenza Virus 2021-11-24 Completed [facility], 00:00:00 [place] [facility] Preserv and ABX Free Bran ch 6 MO-64 YRS Influenza Virus 2021-11-24 Completed [facility], 00:00:00 [place] [facility] Preserv and ABX Free Bran ch 6 MO-64 YRS Influenza Virus 2021-11-24 Completed [facility], 00:00:00 [place] [facility] Preserv and ABX Free Bran ch 6 MO-64 YRS Influenza Virus 2021-11-24 Completed [facility], 00:00:00 [place] [facility] Preserv and ABX Free Bran ch 6 MO-64 YRS Influenza Virus 2021-11-24 Completed [facility], 00:00:00 [place] [facility] Preserv and ABX Free Bran ch 6 MO-64 YRS Influenza Virus 2021-11-24 Completed [facility], 00:00:00 [place] [facility] Preserv and ABX Free Bran ch 6 MO-64 YRS Influenza Virus 2021-11-24 Completed [facility], 00:00:00 [place] [facility] Preserv and ABX Free Bran ch 6 MO-64 YRS Influenza (whole) 2019-10-15 Completed [facility] 00:00:00 [facility] Influenza 2019-10-15 Completed [facility] (Preservative Free) 00:00:00 [facility] Influenza (whole) 2019-10-15 Completed [facility] 00:00:00 [facility] Influenza 2019-10-15 Completed [facility] (Preservative Free) 00:00:00 [facility] Influenza (whole) 2019-10-15 Completed [facility] 00:00:00 [facility] Influenza 2019-10-15 Completed [facility] (Preservative Free) 00:00:00 [facility] Influenza (whole) 2019-10-15 Completed [facility] 00:00:00 of [facility] Influenza 2019-10-15 Completed [facility] (Preservative Free) 00:00:00 [facility] Influenza (whole) 2019-10-15 Completed [facility] 00:00:00 [facility] Influenza (whole) 2019-10-15 Completed [facility] 00:00:00 [facility] Influenza 2019-10-15 Completed [facility] (Preservative Free) 00:00:00 [facility] Influenza 2019-10-15 Completed [facility] (Preservative Free) 00:00:00 [facility] Influenza Virus 2019-10-15 Completed [facility] Influenza Virus 2019-10-15 Completed [facility] 00:00:00 [facility] Influenza Virus 2019-10-15 Completed [facility] 00:00:00 [facility] Influenza Virus 2019-10-15 Completed [facility] 00:00:00 [facility] Influenza Virus 2019-10-15 Completed [facility] 00:00:00 [facility] Influenza Virus 2019-10-15 Completed [facility] 00:00:00 [facility] Influenza Virus 2019-10-15 Completed [facility] 00:00:00 [facility] Influenza Virus 2019-10-15 Completed [facility] 00:00:00 [facility] Influenza Virus 2019-10-15 Completed [facility] 00:00:00 [facility] Influenza Virus 2019-10-15 Completed [facility] 00:00:00 [facility] Influenza Virus 2019-10-15 Completed [facility] 00:00:00 [facility] Influenza Virus 2019-10-15 Completed [facility] 00:00:00 [facility] Influenza Virus 2019-10-15 Completed [facility] 00:00:00 [facility] Influenza Virus 2019-10-15 Completed [facility] 00:00:00 [facility] Influenza Virus 2019-10-15 Completed [facility] 00:00:00 [facility] Influenza Virus 2019-10-15 Completed [facility] 00:00:00 [facility] Influenza Virus 2019-10-15 Completed [facility] 00:00:00 [facility] Influenza Virus 2019-10-15 Completed [facility] 00:00:00 [facility] Influenza Virus 2019-10-15 Completed [facility] 00:00:00 [facility] Influenza Virus 2019-10-15 Completed [facility] 00:00:00 [facility] Influenza Virus 2019-10-15 Completed [facility] 00:00:00 [facility] Influenza Virus 2019-10-15 Completed [facility] 00:00:00 [facility] Influenza Virus 2019-10-15 Completed [facility] 00:00:00 [facility] Influenza Virus 2019-10-15 Completed [facility] 00:00:00 [facility] Influenza Virus 2019-10-15 Completed [facility] 00:00:00 [facility] Influenza Virus 2019-10-15 Completed [facility] 00:00:00 [facility] Influenza Virus 2019-10-15 Completed [facility] 00:00:00 [facility] Influenza Virus 2019-10-15 Completed [facility] 00:00:00 [facility] Influenza Virus 2019-10-15 Completed [facility] 00:00:00 [facility] Influenza Virus 2019-10-15 Completed [facility] 00:00:00 [facility] Influenza Virus 2019-10-15 Completed [facility] 00:00:00 [facility] Influenza Virus 2019-10-15 Completed [facility] 00:00:00 [facility] Influenza Virus 2019-10-15 Completed [facility] 00:00:00 [facility] Influenza Virus 2019-10-15 Completed [facility] 00:00:00 [facility] Influenza Virus 2019-10-15 Completed [facility] 00:00:00 [facility] Influenza Virus 2019-10-15 Completed [facility] 00:00:00 [facility] Influenza Virus 2019-10-15 Completed [facility] 00:00:00 [facility] Influenza Virus 2019-10-15 Completed [facility] 00:00:00 [facility] Influenza Virus 2019-10-15 Completed [facility] 00:00:00 [facility] Influenza Virus 2019-10-15 Completed [facility] 00:00:00 [facility] Influenza Virus 2019-10-15 Completed [facility] 00:00:00 [facility] Influenza Virus 2019-10-15 Completed [facility] 00:00:00 [facility] Influenza Virus 2019-10-15 Completed [facility] 00:00:00 [facility] Influenza Virus 2019-10-15 Completed [facility] 00:00:00 [facility] Influenza Virus 2019-10-15 Completed [facility] 00:00:00 [facility] Influenza Virus 2019-10-15 Completed [facility] 00:00:00 [facility] Influenza Virus 2019-10-15 Completed [facility] 00:00:00 [facility] Influenza Virus 2019-10-15 Completed [facility] 00:00:00 [facility] Influenza Virus 2019-10-15 Completed [facility] 00:00:00 [facility] Influenza Virus 2019-10-15 Completed [facility] 00:00:00 [facility] Influenza Virus 2019-10-15 Completed [facility] 00:00:00 [facility] Influenza Virus 2019-10-15 Completed [facility] 00:00:00 [facility] Influenza Virus 2019-10-15 Completed [facility] 00:00:00 [facility] Influenza Virus 2019-10-15 Completed [facility] 00:00:00 [facility] Influenza Virus 2019-10-15 Completed [facility] 00:00:00 [facility] Influenza Virus 2019-10-15 Completed [facility] 00:00:00 [facility] Influenza Virus 2019-10-15 Completed [facility] 00:00:00 [facility] Influenza Virus 2019-10-15 Completed [facility] 00:00:00 [facility] Influenza Virus 2019-10-15 Completed [facility] 00:00:00 [facility] Influenza Virus 2019-10-15 Completed [facility] 00:00:00 [facility] Influenza Virus 2019-10-15 Completed [facility] 00:00:00 [facility] Influenza Virus 2019-10-15 Completed [facility] 00:00:00 [facility] Influenza Virus 2019-10-15 Completed [facility] 00:00:00 [facility] Influenza Virus 2019-10-15 Completed [facility] 00:00:00 [facility] Influenza Virus 2019-10-15 Completed [facility] 00:00:00 [facility] Influenza Virus 2019-10-15 Completed [facility] 00:00:00 [facility] Influenza Virus 2019-10-15 Completed [facility] 00:00:00 [facility] Influenza Virus 2019-10-15 Completed [facility] 00:00:00 [facility] Influenza Virus 2019-10-15 Completed [facility] 00:00:00 [facility] Influenza Virus 2019-10-15 Completed [facility] 00:00:00 [facility] Influenza Virus 2019-10-15 Completed [facility] 00:00:00 [facility] Influenza Virus 2019-10-15 Completed [facility] 00:00:00 [facility] Influenza Virus 2019-10-15 Completed [facility] 00:00:00 [facility] Influenza Virus 2019-10-15 Completed [facility] 00:00:00 [facility] Influenza Virus 2019-10-15 Completed [facility] 00:00:00 [facility] Influenza Virus 2019-10-15 Completed [facility] 00:00:00 [facility] Influenza Virus 2019-10-15 Completed [facility] 00:00:00 [facility] Influenza Virus 2019-10-15 Completed [facility] 00:00:00 [facility] Influenza Virus 2019-10-15 Completed [facility] 00:00:00 [facility] Influenza Virus 2019-10-15 Completed [facility] 00:00:00 [facility] Influenza Virus 2019-10-15 Completed [facility] 00:00:00 [facility] Influenza Virus 2019-10-15 Completed [facility] 00:00:00 [facility] Influenza Virus 2019-10-15 Completed [facility] 00:00:00 [facility] Influenza Virus 2019-10-15 Completed [facility] 00:00:00 [facility] Influenza Virus 2019-10-15 Completed [facility] 00:00:00 [facility] Influenza Virus 2019-10-15 Completed [facility] 00:00:00 [facility] Influenza Virus 2019-10-15 Completed [facility] 00:00:00 [facility] Influenza Virus 2019-10-15 Completed [facility] 00:00:00 [facility] Influenza Virus 2019-10-15 Completed [facility] 00:00:00 [facility] Influenza Virus 2019-10-15 Completed [facility] 00:00:00 [facility] Influenza Virus 2019-10-15 Completed [facility] 00:00:00 [facility] Influenza Virus 2019-10-15 Completed [facility] 00:00:00 [facility] Influenza Virus 2019-10-15 Completed [facility] 00:00:00 [facility] Influenza Virus 2019-10-15 Completed [facility] 00:00:00 [facility] Influenza Virus 2019-10-15 Completed [facility] 00:00:00 [facility] Influenza Virus 2019-10-15 Completed [facility] 00:00:00 [facility] Influenza Virus 2019-10-15 Completed [facility] 00:00:00 [facility] Influenza Virus 2019-10-15 Completed [facility] 00:00:00 [facility] Influenza Virus 2019-10-15 Completed [facility] 00:00:00 [facility] Influenza Virus 2019-10-15 Completed [facility] 00:00:00 [facility] Influenza Virus 2019-10-15 Completed [facility] 00:00:00 [facility] Influenza Virus 2019-10-15 Completed [facility] 00:00:00 [facility] Influenza Virus 2019-10-15 Completed [facility] 00:00:00 [facility] Influenza Virus 2019-10-15 Completed [facility] 00:00:00 [facility] Influenza Virus 2019-10-15 Completed [facility] 00:00:00 [facility] Influenza Virus 2019-10-15 Completed [facility] 00:00:00 [facility] Influenza Quad-PF 2018-10-20 Completed [facility] 00:00:00 of Medicine Influenza Quad-PF 2018-10-20 Completed [facility] 00[facility]00:00 of Medicine Influenza Quad-PF 2018-10-20 Completed [facility] 00:00:00 of Medicine Influenza Quad-PF 2018-10-20 Completed [facility] 00[facility]00:00 of Medicine Influenza Quad-PF 2018-10-20 Completed [facility] 00:00:00 of Medicine Influenza Quad-PF 2018-10-20 Completed [facility] 00[facility]00:00 of Medicine Influenza Virus 2018-10-20 Completed [facility] 00:00:00 [facility] Influenza Virus 2018-10-20 Completed [facility] - Whole 00:00:00 [facility] Influenza Virus 2018-10-20 Completed [facility] - Whole 00:00:00 [facility] Influenza Virus 2018-10-20 Completed [facility] - Whole 00:00:00 [facility] Influenza Virus 2018-10-20 Completed [facility] - Whole 00:00:00 [facility] Influenza Virus 2018-10-20 Completed [facility] - Whole 00:00:00 [facility] Influenza Virus 2018-10-20 Completed [facility] - Whole 00:00:00 [facility] Influenza Virus 2018-10-20 Completed [facility] - Whole 00:00:00 [facility] Influenza Virus 2018-10-20 Completed [facility] - Whole 00:00:00 [facility] Influenza Virus 2018-10-20 Completed [facility] - Whole 00:00:00 [facility] Influenza Virus 2018-10-20 Completed [facility] - Whole 00:00:00 [facility] Influenza Virus 2018-10-20 Completed [facility] - Whole 00:00:00 [facility] Influenza Virus 2018-10-20 Completed [facility] - Whole 00:00:00 [facility] Influenza Virus 2018-10-20 Completed [facility] - Whole 00:00:00 [facility] Influenza Virus 2018-10-20 Completed [facility] - Whole 00:00:00 [facility] Influenza Virus 2018-10-20 Completed [facility] - Whole 00:00:00 [facility] Influenza Virus 2018-10-20 Completed [facility] - Whole 00:00:00 [facility] Influenza Virus 2018-10-20 Completed [facility] - Whole 00:00:00 [facility] Influenza Virus 2018-10-20 Completed [facility] - Whole 00:00:00 [facility] Influenza Virus 2018-10-20 Completed [facility] - Whole 00:00:00 [facility] Influenza Virus 2018-10-20 Completed [facility] - Whole 00:00:00 [facility] Influenza Virus 2018-10-20 Completed [facility] - Whole 00:00:00 [facility] Influenza Virus 2018-10-20 Completed [facility] - Whole 00:00:00 [facility] Influenza Virus 2018-10-20 Completed [facility] - Whole 00:00:00 [facility] Influenza Virus 2018-10-20 Completed [facility] - Whole 00:00:00 [facility] Influenza Virus 2018-10-20 Completed [facility] - Whole 00:00:00 [facility] Influenza Virus 2018-10-20 Completed [facility] - Whole 00:00:00 [facility] Influenza Virus 2018-10-20 Completed [facility] - Whole 00:00:00 [facility] Influenza Virus 2018-10-20 Completed [facility] - Whole 00:00:00 [facility] Influenza Virus 2018-10-20 Completed [facility] - Whole 00:00:00 [facility] Influenza Virus 2018-10-20 Completed [facility] - Whole 00:00:00 [facility] Influenza Virus 2018-10-20 Completed [facility] - Whole 00:00:00 [facility] Influenza Virus 2018-10-20 Completed [facility] - Whole 00:00:00 [facility] Influenza Virus 2018-10-20 Completed [facility] - Whole 00:00:00 [facility] Influenza Virus 2018-10-20 Completed [facility] - Whole 00:00:00 [facility] Influenza Virus 2018-10-20 Completed [facility] - Whole 00:00:00 [facility] Influenza Virus 2018-10-20 Completed [facility] - Whole 00:00:00 [facility] Influenza Virus 2018-10-20 Completed [facility] - Whole 00:00:00 [facility] Influenza Virus 2018-10-20 Completed [facility] - Whole 00:00:00 [facility] Influenza Virus 2018-10-20 Completed [facility] - Whole 00:00:00 [facility] Influenza Virus 2018-10-20 Completed [facility] - Whole 00:00:00 [facility] Influenza Virus 2018-10-20 Completed [facility] - Whole 00:00:00 [facility] Influenza Virus 2018-10-20 Completed [facility] - Whole 00:00:00 [facility] Influenza Virus 2018-10-20 Completed [facility] - Whole 00:00:00 [facility] Influenza Virus 2018-10-20 Completed [facility] - Whole 00:00:00 [facility] Influenza Virus 2018-10-20 Completed [facility] - Whole 00:00:00 [facility] Influenza Virus 2018-10-20 Completed [facility] - Whole 00:00:00 [facility] Influenza Virus 2018-10-20 Completed [facility] - Whole 00:00:00 [facility] Influenza Virus 2018-10-20 Completed [facility] - Whole 00:00:00 [facility] Influenza Virus 2018-10-20 Completed [facility] - Whole 00:00:00 [facility] Influenza Virus 2018-10-20 Completed [facility] - Whole 00:00:00 [facility] Influenza Virus 2018-10-20 Completed [facility] - Whole 00:00:00 [facility] Influenza Virus 2018-10-20 Completed [facility] Vaccine - Whole 00:00:00 [facility] Influenza Virus 2018-10-20 Completed [facility] Vaccine - Whole 00:00:00 [facility] Influenza Virus 2018-10-20 Completed [facility] Vaccine - Whole 00:00:00 [facility] Influenza Virus 2018-10-20 Completed [facility] Vaccine - Whole 00:00:00 [facility] Influenza Virus 2018-10-20 Completed [facility] Vaccine - Whole 00:00:00 [facility] Influenza Virus 2018-10-20 Completed [facility] Vaccine - Whole 00:00:00 [facility] Influenza Virus 2018-10-20 Completed [facility] Vaccine - Whole 00:00:00 [facility] Influenza Virus 2018-10-20 Completed [facility] Vaccine - Whole 00:00:00 [facility] Influenza Virus 2018-10-20 Completed [facility] Vaccine - Whole 00:00:00 [facility] Influenza Virus 2018-10-20 Completed [facility] Vaccine - Whole 00:00:00 [facility] Influenza Virus 2018-10-20 Completed [facility] Vaccine - Whole 00:00:00 [facility] Influenza Virus 2018-10-20 Completed [facility] Vaccine - Whole 00:00:00 [facility] Influenza Virus 2018-10-20 Completed [facility] Vaccine - Whole 00:00:00 [facility] Influenza Virus 2018-10-20 Completed [facility] Vaccine - Whole 00:00:00 [facility] Influenza Virus 2018-10-20 Completed [facility] Vaccine - Whole 00:00:00 [facility] Influenza Virus 2018-10-20 Completed [facility] of Vaccine - Whole 00:00:00 [facility] Influenza Virus 2018-10-20 Completed [facility] of Vaccine - Whole 00:00:00 [facility] Influenza Virus 2018-10-20 Completed [facility] of Vaccine - Whole 00:00:00 [facility] Influenza Virus 2018-10-20 Completed [facility] of Vaccine - Whole 00:00:00 [facility] Influenza Virus 2018-10-20 Completed [facility] Vaccine - Whole 00:00:00 [facility] Influenza Virus 2018-10-20 Completed [facility] of Vaccine - Whole 00:00:00 [facility] Influenza Virus 2018-10-20 Completed [facility] Vaccine - Whole 00:00:00 [facility] Influenza Virus 2018-10-20 Completed [facility] of Vaccine - Whole 00:00:00 [facility] Influenza Virus 2018-10-20 Completed [facility] of Vaccine - Whole 00:00:00 [facility] Influenza Virus 2018-10-20 Completed [facility] Vaccine - Whole 00:00:00 [facility] Influenza Virus 2018-10-20 Completed [facility] Vaccine - Whole 00:00:00 [facility] Influenza Virus 2018-10-20 Completed [facility] Vaccine - Whole 00:00:00 [facility] Influenza Virus 2018-10-20 Completed [facility] Vaccine - Whole 00:00:00 [facility] Influenza Virus 2018-10-20 Completed [facility] Vaccine - Whole 00:00:00 [facility] Influenza Virus 2018-10-20 Completed [facility] of Vaccine - Whole 00:00:00 [facility] Influenza Virus 2018-10-20 Completed [facility] Vaccine - Whole 00:00:00 [facility] Influenza Virus 2018-10-20 Completed [facility] of Vaccine - Whole 00:00:00 [facility] Influenza Virus 2018-10-20 Completed [facility] Vaccine - Whole 00:00:00 [facility] Influenza Virus 2018-10-20 Completed [facility] Vaccine - Whole 00:00:00 [facility] Influenza Virus 2018-10-20 Completed [facility] Vaccine - Whole 00:00:00 [facility] Influenza Virus 2018-10-20 Completed [facility] of Vaccine - Whole 00:00:00 [facility] Influenza Virus 2018-10-20 Completed [facility] of Vaccine - Whole 00:00:00 [facility] Influenza Virus 2018-10-20 Completed [facility] of Vaccine - Whole 00:00:00 [facility] Influenza Virus 2018-10-20 Completed [facility] of Vaccine - Whole 00:00:00 [facility] Influenza Virus 2018-10-20 Completed [facility] Vaccine - Whole 00:00:00 [facility] Influenza Virus 2018-10-20 Completed [facility] of Vaccine - Whole 00:00:00 [facility] Influenza Virus 2018-10-20 Completed [facility] Vaccine - Whole 00:00:00 [facility] Influenza Virus 2018-10-20 Completed [facility] of Vaccine - Whole 00:00:00 [facility] Influenza Virus 2018-10-20 Completed [facility] Vaccine - Whole 00:00:00 [facility] Influenza Virus 2018-10-20 Completed [facility] of Vaccine - Whole 00:00:00 [facility] Influenza Virus 2018-10-20 Completed [facility] Vaccine - Whole 00:00:00 [facility] Influenza Virus 2018-10-20 Completed [facility] Vaccine - Whole 00:00:00 [facility] Influenza Virus 2018-10-20 Completed [facility] of Vaccine - Whole 00:00:00 [facility] Influenza Virus 2018-10-20 Completed [facility] of Vaccine - Whole 00:00:00 [facility] Influenza Virus 2018-10-20 Completed [facility] of Vaccine - Whole 00:00:00 [facility] Influenza Virus 2018-10-20 Completed [facility] of Vaccine - Whole 00:00:00 [facility] Influenza Virus 2018-10-20 Completed [facility] Vaccine - Whole 00:00:00 [facility] Influenza Virus 2018-10-20 Completed [facility] Vaccine - Whole 00:00:00 [facility] Influenza Virus 2018-10-20 Completed [facility] Vaccine - Whole 00:00:00 [facility] Pneumococcal 2018-07-28 Completed [facility] Polysaccharide 00:00:00 of Medicin e Pneumococcal 2018-07-28 Completed [facility] Polysaccharide 00:00:00 of Medicin e Pneumococcal 2018-07-28 Completed [facility] Polysaccharide 00:00:00 of Medicin e Pneumococcal 2018-07-28 Completed [facility] ge Polysaccharide 00:00:00 of Medicin e Pneumococcal 2018-07-28 Completed [facility] Polysaccharide 00:00:00 of Medicin e Pneumococcal 2018-07-28 Completed [facility] Col[facility] ge Polysaccharide 00:00:00 of Medicin e Pneumococcal 2018-07-28 Completed [facility] f Polysaccharide, 00:00:00 [place] [facility] ical PPSV23 (PNEUMOVAX) Branch Pneumococcal 2018-07-28 Completed [facility] o f Polysaccharide, 00:00:00 [place] [facility] PPSV23 (PNEUMOVAX) Branch Pneumococcal 2018-07-28 Completed [facility] o f Polysaccharide, 00:00:00 [place] [facility] PPSV23 (PNEUMOVAX) Branch Pneumococcal 2018-07-28 Completed [facility] f Polysaccharide, 00:00:00 [place] [facility] PPSV23 (PNEUMOVAX) Branch Pneumococcal 2018-07-28 Completed [facility] f Polysaccharide, 00:00:00 [place] [facility] PPSV23 (PNEUMOVAX) Branch Pneumococcal 2018-07-28 Completed [facility] f Polysaccharide, 00:00:00 [place] [facility] PPSV23 (PNEUMOVAX) Branch Pneumococcal 2018-07-28 Completed [facility] f Polysaccharide, 00:00:00 [place] [facility] PPSV23 (PNEUMOVAX) Branch Pneumococcal 2018-07-28 Completed [facility] f Polysaccharide, 00:00:00 [place] [facility] PPSV23 (PNEUMOVAX) Branch Pneumococcal 2018-07-28 Completed [facility] f Polysaccharide, 00:00:00 [place] [facility] PPSV23 (PNEUMOVAX) Branch Pneumococcal 2018-07-28 Completed [facility] f Polysaccharide, 00:00:00 [place] [facility] PPSV23 (PNEUMOVAX) Branch Pneumococcal 2018-07-28 Completed [facility] o f Polysaccharide, 00:00:00 [place] [facility] PPSV23 (PNEUMOVAX) Branch Pneumococcal 2018-07-28 Completed [facility] o f Polysaccharide, 00:00:00 [place] [facility] PPSV23 (PNEUMOVAX) Branch Pneumococcal 2018-07-28 Completed [facility] o f Polysaccharide, 00:00:00 [place] [facility] PPSV23 (PNEUMOVAX) Branch Pneumococcal 2018-07-28 Completed [facility] o f Polysaccharide, 00:00:00 [place] [facility] PPSV23 (PNEUMOVAX) Branch Pneumococcal 2018-07-28 Completed [facility] o f Polysaccharide, 00:00:00 [place] [facility] PPSV23 (PNEUMOVAX) Branch Pneumococcal 2018-07-28 Completed [facility] o f Polysaccharide, 00:00:00 [place] [facility] PPSV23 (PNEUMOVAX) Branch Pneumococcal 2018-07-28 Completed [facility] o f Polysaccharide, 00:00:00 [place] [facility] PPSV23 (PNEUMOVAX) Branch Pneumococcal 2018-07-28 Completed [facility] o f Polysaccharide, 00:00:00 [place] [facility] PPSV23 (PNEUMOVAX) Branch Pneumococcal 2018-07-28 Completed [facility] o f Polysaccharide, 00:00:00 [place] [facility] PPSV23 (PNEUMOVAX) Branch Pneumococcal 2018-07-28 Completed [facility] o f Polysaccharide, 00:00:00 [place] [facility] PPSV23 (PNEUMOVAX) Branch Pneumococcal 2018-07-28 Completed [facility] o f Polysaccharide, 00:00:00 [place] [facility] PPSV23 (PNEUMOVAX) Branch Pneumococcal 2018-07-28 Completed [facility] o f Polysaccharide, 00:00:00 [place] [facility] PPSV23 (PNEUMOVAX) Branch Pneumococcal 2018-07-28 Completed [facility] o f Polysaccharide, 00:00:00 [place] [facility] PPSV23 (PNEUMOVAX) Branch Pneumococcal 2018-07-28 Completed [facility] o f Polysaccharide, 00:00:00 [place] [facility] PPSV23 (PNEUMOVAX) Branch Pneumococcal 2018-07-28 Completed [facility] o f Polysaccharide, 00:00:00 [place] [facility] PPSV23 (PNEUMOVAX) Branch Pneumococcal 2018-07-28 Completed [facility] o f Polysaccharide, 00:00:00 [place] [facility] PPSV23 (PNEUMOVAX) Branch Pneumococcal 2018-07-28 Completed [facility] f Polysaccharide, 00:00:00 [place] [facility] PPSV23 (PNEUMOVAX) Branch Pneumococcal 2018-07-28 Completed [facility] f Polysaccharide, 00:00:00 [place] [facility] PPSV23 (PNEUMOVAX) Branch Pneumococcal 2018-07-28 Completed [facility] f Polysaccharide, 00:00:00 [place] [facility] PPSV23 (PNEUMOVAX) Branch Pneumococcal 2018-07-28 Completed [facility] f Polysaccharide, 00:00:00 [place] [facility] PPSV23 (PNEUMOVAX) Branch Pneumococcal 2018-07-28 Completed [facility] o f Polysaccharide, 00:00:00 [place] [facility] PPSV23 (PNEUMOVAX) Branch Pneumococcal 2018-07-28 Completed [facility] o f Polysaccharide, 00:00:00 [place] [facility] PPSV23 (PNEUMOVAX) Branch Pneumococcal 2018-07-28 Completed [facility] o f Polysaccharide, 00:00:00 [place] [facility] PPSV23 (PNEUMOVAX) Branch Pneumococcal 2018-07-28 Completed [facility] o f Polysaccharide, 00:00:00 [place] [facility] PPSV23 (PNEUMOVAX) Branch Pneumococcal 2018-07-28 Completed [facility] o f Polysaccharide, 00:00:00 [place] [facility] PPSV23 (PNEUMOVAX) Branch Pneumococcal 2018-07-28 Completed [facility] o f Polysaccharide, 00:00:00 [place] [facility] PPSV23 (PNEUMOVAX) Branch Pneumococcal 2018-07-28 Completed [facility] o f Polysaccharide, 00:00:00 [place] [facility] PPSV23 (PNEUMOVAX) Branch Pneumococcal 2018-07-28 Completed [facility] o f Polysaccharide, 00:00:00 [place] [facility] PPSV23 (PNEUMOVAX) Branch Pneumococcal 2018-07-28 Completed [facility] o f Polysaccharide, 00:00:00 [place] [facility] PPSV23 (PNEUMOVAX) Branch Pneumococcal 2018-07-28 Completed [facility] o f Polysaccharide, 00:00:00 [place] [facility] PPSV23 (PNEUMOVAX) Branch Pneumococcal 2018-07-28 Completed [facility] o f Polysaccharide, 00:00:00 [place] [facility] PPSV23 (PNEUMOVAX) Branch Pneumococcal 2018-07-28 Completed [facility] o f Polysaccharide, 00:00:00 [place] [facility] PPSV23 (PNEUMOVAX) Branch Pneumococcal 2018-07-28 Completed [facility] o f Polysaccharide, 00:00:00 [place] [facility] PPSV23 (PNEUMOVAX) Branch Pneumococcal 2018-07-28 Completed [facility] o f Polysaccharide, 00:00:00 [place] [facility] PPSV23 (PNEUMOVAX) Branch Pneumococcal 2018-07-28 Completed [facility] o f Polysaccharide, 00:00:00 [place] [facility] PPSV23 (PNEUMOVAX) Branch Pneumococcal 2018-07-28 Completed [facility] o f Polysaccharide, 00:00:00 [place] [facility] PPSV23 (PNEUMOVAX) Branch Pneumococcal 2018-07-28 Completed [facility] o f Polysaccharide, 00:00:00 [place] [facility] PPSV23 (PNEUMOVAX) Branch Pneumococcal 2018-07-28 Completed [facility] o f Polysaccharide, 00:00:00 [place] [facility] PPSV23 (PNEUMOVAX) Branch Pneumococcal 2018-07-28 Completed [facility] f Polysaccharide, 00:00:00 [place] [facility] PPSV23 (PNEUMOVAX) Branch Pneumococcal 2018-07-28 Completed [facility] o f Polysaccharide, 00:00:00 [place] [facility] PPSV23 (PNEUMOVAX) Branch Pneumococcal 2018-07-28 Completed [facility] o f Polysaccharide, 00:00:00 [place] [facility] PPSV23 (PNEUMOVAX) Branch Pneumococcal 2018-07-28 Completed [facility] o f Polysaccharide, 00:00:00 [place] [facility] PPSV23 (PNEUMOVAX) Branch Pneumococcal 2018-07-28 Completed [facility] o f Polysaccharide, 00:00:00 [place] [facility] PPSV23 (PNEUMOVAX) Branch Pneumococcal 2018-07-28 Completed [facility] o f Polysaccharide, 00:00:00 [place] [facility] PPSV23 (PNEUMOVAX) Branch Pneumococcal 2018-07-28 Completed [facility] o f Polysaccharide, 00:00:00 [place] [facility] PPSV23 (PNEUMOVAX) Branch Pneumococcal 2018-07-28 Completed [facility] o f Polysaccharide, 00:00:00 [place] [facility] PPSV23 (PNEUMOVAX) Branch Pneumococcal 2018-07-28 Completed [facility] o f Polysaccharide, 00:00:00 [place] [facility] PPSV23 (PNEUMOVAX) Branch Pneumococcal 2018-07-28 Completed [facility] o f Polysaccharide, 00:00:00 [place] [facility] PPSV23 (PNEUMOVAX) Branch Pneumococcal 2018-07-28 Completed [facility] o f Polysaccharide, 00:00:00 [place] [facility] PPSV23 (PNEUMOVAX) Branch Pneumococcal 2018-07-28 Completed [facility] o f Polysaccharide, 00:00:00 [place] [facility] PPSV23 (PNEUMOVAX) Branch Pneumococcal 2018-07-28 Completed [facility] o f Polysaccharide, 00:00:00 [place] [facility] PPSV23 (PNEUMOVAX) Branch Pneumococcal 2018-07-28 Completed [facility] o f Polysaccharide, 00:00:00 [place] [facility] PPSV23 (PNEUMOVAX) Branch Pneumococcal 2018-07-28 Completed [facility] o f Polysaccharide, 00:00:00 [place] [facility] PPSV23 (PNEUMOVAX) Branch Pneumococcal 2018-07-28 Completed [facility] o f Polysaccharide, 00:00:00 [place] [facility] PPSV23 (PNEUMOVAX) Branch Pneumococcal 2018-07-28 Completed [facility] o f Polysaccharide, 00:00:00 [place] [facility] PPSV23 (PNEUMOVAX) Branch Pneumococcal 2018-07-28 Completed [facility] o f Polysaccharide, 00:00:00 [place] [facility] PPSV23 (PNEUMOVAX) Branch Pneumococcal 2018-07-28 Completed [facility] o f Polysaccharide, 00:00:00 [place] [facility] PPSV23 (PNEUMOVAX) Branch Pneumococcal 2018-07-28 Completed [facility] o f Polysaccharide, 00:00:00 [place] [facility] PPSV23 (PNEUMOVAX) Branch Pneumococcal 2018-07-28 Completed [facility] o f Polysaccharide, 00:00:00 [place] [facility] PPSV23 (PNEUMOVAX) Branch Pneumococcal 2018-07-28 Completed [facility] o f Polysaccharide, 00:00:00 [place] [facility] PPSV23 (PNEUMOVAX) Branch Pneumococcal 2018-07-28 Completed [facility] o f Polysaccharide, 00:00:00 [place] [facility] PPSV23 (PNEUMOVAX) Branch Pneumococcal 2018-07-28 Completed [facility] o f Polysaccharide, 00:00:00 [place] [facility] PPSV23 (PNEUMOVAX) Branch Pneumococcal 2018-07-28 Completed [facility] o f Polysaccharide, 00:00:00 [place] [facility] PPSV23 (PNEUMOVAX) Branch Pneumococcal 2018-07-28 Completed [facility] o f Polysaccharide, 00:00:00 [place] [facility] PPSV23 (PNEUMOVAX) Branch Pneumococcal 2018-07-28 Completed [facility] o f Polysaccharide, 00:00:00 [place] [facility] PPSV23 (PNEUMOVAX) Branch Pneumococcal 2018-07-28 Completed [facility] o f Polysaccharide, 00:00:00 [place] [facility] PPSV23 (PNEUMOVAX) Branch Pneumococcal 2018-07-28 Completed [facility] o f Polysaccharide, 00:00:00 [place] [facility] PPSV23 (PNEUMOVAX) Branch Pneumococcal 2018-07-28 Completed [facility] o f Polysaccharide, 00:00:00 [place] [facility] PPSV23 (PNEUMOVAX) Branch Pneumococcal 2018-07-28 Completed [facility] o f Polysaccharide, 00:00:00 [place] [facility] PPSV23 (PNEUMOVAX) Branch Pneumococcal 2018-07-28 Completed [facility] o f Polysaccharide, 00:00:00 [place] [facility] PPSV23 (PNEUMOVAX) Branch Pneumococcal 2018-07-28 Completed [facility] o f Polysaccharide, 00:00:00 [place] [facility] PPSV23 (PNEUMOVAX) Branch Pneumococcal 2018-07-28 Completed [facility] o f Polysaccharide, 00:00:00 [place] [facility] PPSV23 (PNEUMOVAX) Branch Pneumococcal 2018-07-28 Completed [facility] o f Polysaccharide, 00:00:00 [place] [facility] PPSV23 (PNEUMOVAX) Branch Pneumococcal 2018-07-28 Completed [facility] o f Polysaccharide, 00:00:00 [place] [facility] PPSV23 (PNEUMOVAX) Branch Pneumococcal 2018-07-28 Completed [facility] o f Polysaccharide, 00:00:00 [place] [facility] PPSV23 (PNEUMOVAX) Branch Pneumococcal 2018-07-28 Completed [facility] o f Polysaccharide, 00:00:00 [place] [facility] PPSV23 (PNEUMOVAX) Branch Pneumococcal 2018-07-28 Completed [facility] o f Polysaccharide, 00:00:00 [place] [facility] PPSV23 (PNEUMOVAX) Branch Pneumococcal 2018-07-28 Completed [facility] o f Polysaccharide, 00:00:00 [place] [facility] PPSV23 (PNEUMOVAX) Branch Pneumococcal 2018-07-28 Completed [facility] o f Polysaccharide, 00:00:00 [place] [facility] PPSV23 (PNEUMOVAX) Branch Pneumococcal 2018-07-28 Completed [facility] o f Polysaccharide, 00:00:00 [place] [facility] PPSV23 (PNEUMOVAX) Branch Pneumococcal 2018-07-28 Completed [facility] o f Polysaccharide, 00:00:00 [place] [facility] PPSV23 (PNEUMOVAX) Branch Pneumococcal 2018-07-28 Completed [facility] o f Polysaccharide, 00:00:00 [place] [facility] PPSV23 (PNEUMOVAX) Branch Pneumococcal 2018-07-28 Completed [facility] o f Polysaccharide, 00:00:00 [place] [facility] PPSV23 (PNEUMOVAX) Branch Pneumococcal 2018-07-28 Completed [facility] o f Polysaccharide, 00:00:00 [place] [facility] PPSV23 (PNEUMOVAX) Branch Pneumococcal 2018-07-28 Completed [facility] o f Polysaccharide, 00:00:00 [place] [facility] PPSV23 (PNEUMOVAX) Branch Pneumococcal 2018-07-28 Completed [facility] o f Polysaccharide, 00:00:00 [place] [facility] PPSV23 (PNEUMOVAX) Branch Pneumococcal 2018-07-28 Completed [facility] o f Polysaccharide, 00:00:00 [place] [facility] PPSV23 (PNEUMOVAX) Branch Pneumococcal 2018-07-28 Completed [facility] o f Polysaccharide, 00:00:00 [place] [facility] PPSV23 (PNEUMOVAX) Branch Pneumococcal 2018-07-28 Completed [facility] o f Polysaccharide, 00:00:00 [place] [facility] PPSV23 (PNEUMOVAX) Branch Pneumococcal 2018-07-28 Completed [facility] o f Polysaccharide, 00:00:00 [place] [facility] PPSV23 (PNEUMOVAX) Branch Pneumococcal 2018-07-28 Completed [facility] o f Polysaccharide, 00:00:00 [place] [facility] PPSV23 (PNEUMOVAX) Branch Pneumococcal 2018-07-28 Completed [facility] o f Polysaccharide, 00:00:00 [place] [facility] PPSV23 (PNEUMOVAX) Branch Pneumococcal 2018-07-28 Completed [facility] o f Polysaccharide, 00:00:00 [place] [facility] PPSV23 (PNEUMOVAX) Branch Pneumococcal 2018-07-28 Completed [facility] o f Polysaccharide, 00:00:00 [place] [facility] PPSV23 (PNEUMOVAX) Branch Pneumococcal 2018-07-28 Completed [facility] o f Polysaccharide, 00:00:00 [place] [facility] PPSV23 (PNEUMOVAX) Branch Pneumococcal 2018-07-28 Completed [facility] o f Polysaccharide, 00:00:00 [place] [facility] PPSV23 (PNEUMOVAX) Branch Influenza 2014-11-25 Completed [facility] (Preservative Free) 00:00:00 [facility] Influenza 2014-11-25 Completed [facility] (Preservative Free) 00:00:00 [facility] Influenza 2014-11-25 Completed [facility] (Preservative Free) 00:00:00 [facility] Influenza 2014-11-25 Completed [facility] (Preservative Free) 00:00:00 [facility] Influenza 2014-11-25 Completed [facility] (Preservative Free) 00:00:00 [facility] Influenza 2014-11-25 Completed [facility] (Preservative Free) 00:00:00 [facility] Influenza Virus 2014-11-25 Completed [facility] of Vaccine Quad IM 3+ 00:00:00 [facility] Influenza Virus 2014-11-25 Completed [facility]it y of Vaccine Quad IM 3+ 00:00:00 [facility] Influenza Virus 2014-11-25 Completed [facility] y of Vaccine Quad IM 3+ 00:00:00 [facility] Influenza Virus 2014-11-25 Completed [facility] y of Vaccine Quad IM 3+ 00:00:00 [facility] Influenza Virus 2014-11-25 Completed [facility] of Vaccine Quad IM 3+ 00:00:00 [facility] Influenza Virus 2014-11-25 Completed [facility] y of Vaccine Quad IM 3+ 00:00:00 [facility] Influenza Virus 2014-11-25 Completed [facility] of Vaccine Quad IM 3+ 00:00:00 [facility] Influenza Virus 2014-11-25 Completed [facility] of Vaccine Quad IM 3+ 00:00:00 [facility] Influenza Virus 2014-11-25 Completed [facility] of Vaccine Quad IM 3+ 00:00:00 [facility] Influenza Virus 2014-11-25 Completed [facility] of Vaccine Quad IM 3+ 00:00:00 [facility] Influenza Virus 2014-11-25 Completed [facility] of Vaccine Quad IM 3+ 00:00:00 [facility] Influenza Virus 2014-11-25 Completed [facility] of Vaccine Quad IM 3+ 00:00:00 [facility] Influenza Virus 2014-11-25 Completed [facility] of Vaccine Quad IM 3+ 00:00:00 [facility] Influenza Virus 2014-11-25 Completed [facility] of Vaccine Quad IM 3+ 00:00:00 [facility] Influenza Virus 2014-11-25 Completed [facility] of Vaccine Quad IM 3+ 00:00:00 [facility] Influenza Virus 2014-11-25 Completed [facility] of Vaccine Quad IM 3+ 00:00:00 [facility] Influenza Virus 2014-11-25 Completed [facility] of Vaccine Quad IM 3+ 00:00:00 [facility] Influenza Virus 2014-11-25 Completed [facility] of Vaccine Quad IM 3+ 00:00:00 [facility] Influenza Virus 2014-11-25 Completed [facility] of Vaccine Quad IM 3+ 00:00:00 [facility] Influenza Virus 2014-11-25 Completed [facility] of Vaccine Quad IM 3+ 00:00:00 [facility] Influenza Virus 2014-11-25 Completed [facility] of Vaccine Quad IM 3+ 00:00:00 [facility] Influenza Virus 2014-11-25 Completed [facility] of Vaccine Quad IM 3+ 00:00:00 [facility] Influenza Virus 2014-11-25 Completed [facility] of Vaccine Quad IM 3+ 00:00:00 [facility] Influenza Virus 2014-11-25 Completed [facility] of Vaccine Quad IM 3+ 00:00:00 [facility] Influenza Virus 2014-11-25 Completed [facility] of Vaccine Quad IM 3+ 00:00:00 [facility] Influenza Virus 2014-11-25 Completed [facility] of Vaccine Quad IM 3+ 00:00:00 [facility] Influenza Virus 2014-11-25 Completed [facility] of Vaccine Quad IM 3+ 00:00:00 [facility] Influenza Virus 2014-11-25 Completed [facility] of Vaccine Quad IM 3+ 00:00:00 [facility] Influenza Virus 2014-11-25 Completed [facility] of Vaccine Quad IM 3+ 00:00:00 [facility] Influenza Virus 2014-11-25 Completed [facility] of Vaccine Quad IM 3+ 00:00:00 [facility] Influenza Virus 2014-11-25 Completed [facility] of Vaccine Quad IM 3+ 00:00:00 [facility] Influenza Virus 2014-11-25 Completed [facility] of Vaccine Quad IM 3+ 00:00:00 [facility] Influenza Virus 2014-11-25 Completed [facility] of Vaccine Quad IM 3+ 00:00:00 [facility] Influenza Virus 2014-11-25 Completed [facility] of Vaccine Quad IM 3+ 00:00:00 [facility] Influenza Virus 2014-11-25 Completed [facility] of Vaccine Quad IM 3+ 00:00:00 [facility] Influenza Virus 2014-11-25 Completed [facility] of Vaccine Quad IM 3+ 00:00:00 [facility] Influenza Virus 2014-11-25 Completed [facility] of Vaccine Quad IM 3+ 00:00:00 [facility] Influenza Virus 2014-11-25 Completed [facility] of Vaccine Quad IM 3+ 00:00:00 [facility] Influenza Virus 2014-11-25 Completed [facility] of Vaccine Quad IM 3+ 00:00:00 [facility] Influenza Virus 2014-11-25 Completed [facility] of Vaccine Quad IM 3+ 00:00:00 [facility] Influenza Virus 2014-11-25 Completed [facility] of Vaccine Quad IM 3+ 00:00:00 [facility] Influenza Virus 2014-11-25 Completed [facility] of Vaccine Quad IM 3+ 00:00:00 [facility] Influenza Virus 2014-11-25 Completed [facility] of Vaccine Quad IM 3+ 00:00:00 [facility] Influenza Virus 2014-11-25 Completed [facility] of Vaccine Quad IM 3+ 00:00:00 [facility] Influenza Virus 2014-11-25 Completed [facility] of Vaccine Quad IM 3+ 00:00:00 [facility] Influenza Virus 2014-11-25 Completed [facility] of Vaccine Quad IM 3+ 00:00:00 [facility] Influenza Virus 2014-11-25 Completed [facility] 00:00:00 [facility] Influenza Virus 2014-11-25 Completed [facility] 00:00:00 [facility] Influenza Virus 2014-11-25 Completed [facility] IM 3+ 00:00:00 [facility] Influenza Virus 2014-11-25 Completed [facility] IM 3+ 00:00:00 [facility] Influenza Virus 2014-11-25 Completed [facility] Vaccine [facility] IM 3+ 00:00:00 [facility] Influenza Virus 2014-11-25 Completed [facility] Vaccine [facility] IM 3+ 00:00:00 [facility] Influenza Virus 2014-11-25 Completed [facility] Vaccine [facility] IM 3+ 00:00:00 [facility] Influenza Virus 2014-11-25 Completed [facility] Vaccine [facility] IM 3+ 00:00:00 [facility] Influenza Virus 2014-11-25 Completed [facility] Vaccine [facility] IM 3+ 00:00:00 [facility] Influenza Virus 2014-11-25 Completed [facility]ine [facility] IM 3+ 00:00:00 [facility] Influenza Virus 2014-11-25 Completed [facility] Vaccine [facility] IM 3+ 00:00:00 [facility] Influenza Virus 2014-11-25 Completed [facility] Vaccine [facility] IM 3+ 00:00:00 [facility] Influenza Virus 2014-11-25 Completed [facility] Vaccine [facility] IM 3+ 00:00:00 [facility] Influenza Virus 2014-11-25 Completed [facility] Vaccine [facility] IM 3+ 00:00:00 [facility] Influenza Virus 2014-11-25 Completed [facility] Vaccine [facility] IM 3+ 00:00:00 [facility] Influenza Virus 2014-11-25 Completed [facility]ine [facility] IM 3+ 00:00:00 [facility] Influenza Virus 2014-11-25 Completed [facility] Vaccine [facility] IM 3+ 00:00:00 [facility] Influenza Virus 2014-11-25 Completed [facility] Vaccine [facility] IM 3+ 00:00:00 [facility] Influenza Virus 2014-11-25 Completed [facility] Vaccine [facility] IM 3+ 00:00:00 [facility] Influenza Virus 2014-11-25 Completed [facility] Vaccine [facility] IM 3+ 00:00:00 [facility] Influenza Virus 2014-11-25 Completed [facility] Vaccine [facility] IM 3+ 00:00:00 [facility] Influenza Virus 2014-11-25 Completed [facility] Vaccine [facility] IM 3+ 00:00:00 [facility] Influenza Virus 2014-11-25 Completed [facility] Vaccine [facility] IM 3+ 00:00:00 [facility] Influenza Virus 2014-11-25 Completed [facility] Vaccine [facility] IM 3+ 00:00:00 [facility] Influenza Virus 2014-11-25 Completed [facility] Vaccine [facility] IM 3+ 00:00:00 [facility] Influenza Virus 2014-11-25 Completed [facility] Vaccine [facility] IM 3+ 00:00:00 [facility] Influenza Virus 2014-11-25 Completed [facility] Vaccine [facility] IM 3+ 00:00:00 [facility] Influenza Virus 2014-11-25 Completed [facility] Vaccine [facility] IM 3+ 00:00:00 [facility] Influenza Virus 2014-11-25 Completed [facility] Vaccine [facility] IM 3+ 00:00:00 [facility] Influenza Virus 2014-11-25 Completed [facility] Vaccine [facility] IM 3+ 00:00:00 [facility] Influenza Virus 2014-11-25 Completed [facility] Vaccine [facility] IM 3+ 00:00:00 [facility] Influenza Virus 2014-11-25 Completed [facility] Vaccine [facility] IM 3+ 00:00:00 [facility] Influenza Virus 2014-11-25 Completed [facility] Vaccine [facility] IM 3+ 00:00:00 [facility] Influenza Virus 2014-11-25 Completed [facility] Vaccine [facility] IM 3+ 00:00:00 [facility] Influenza Virus 2014-11-25 Completed [facility] Vaccine [facility] IM 3+ 00:00:00 [facility] Influenza Virus 2014-11-25 Completed [facility] Vaccine [facility] IM 3+ 00:00:00 [facility] Influenza Virus 2014-11-25 Completed [facility] Vaccine [facility] IM 3+ 00:00:00 [facility] Influenza Virus 2014-11-25 Completed [facility] Vaccine [facility] IM 3+ 00:00:00 [facility] Influenza Virus 2014-11-25 Completed [facility] Vaccine [facility] IM 3+ 00:00:00 [facility] Influenza Virus 2014-11-25 Completed [facility] Vaccine [facility] IM 3+ 00:00:00 [facility] Influenza Virus 2014-11-25 Completed [facility] Vaccine [facility] IM 3+ 00:00:00 [facility] Influenza Virus 2014-11-25 Completed [facility] Vaccine [facility] IM 3+ 00:00:00 [facility] Influenza Virus 2014-11-25 Completed [facility] Vaccine [facility] IM 3+ 00:00:00 [facility] Influenza Virus 2014-11-25 Completed [facility] Vaccine [facility] IM 3+ 00:00:00 [facility] Influenza Virus 2014-11-25 Completed [facility] Vaccine [facility] IM 3+ 00:00:00 [facility] Influenza Virus 2014-11-25 Completed [facility] Vaccine [facility] IM 3+ 00:00:00 [facility] Influenza Virus 2014-11-25 Completed [facility] Vaccine [facility] IM 3+ 00:00:00 [facility] Influenza Virus 2014-11-25 Completed [facility] Vaccine [facility] IM 3+ 00:00:00 [facility] Influenza Virus 2014-11-25 Completed [facility] Vaccine [facility] IM 3+ 00:00:00 [facility] Influenza Virus 2014-11-25 Completed [facility] Vaccine [facility] IM 3+ 00:00:00 [facility] Influenza Virus 2014-11-25 Completed [facility] Vaccine [facility] IM 3+ 00:00:00 [facility] Influenza Virus 2014-11-25 Completed [facility] Vaccine [facility] IM 3+ 00:00:00 [facility] Influenza Virus 2014-11-25 Completed [facility] Vaccine [facility] IM 3+ 00:00:00 [facility] Influenza Virus 2014-11-25 Completed [facility] Vaccine [facility] IM 3+ 00:00:00 [facility] Influenza Virus 2014-11-25 Completed [facility] Vaccine [facility] IM 3+ 00:00:00 [facility] Influenza Virus 2014-11-25 Completed [facility] Vaccine [facility] IM 3+ 00:00:00 [facility] Influenza Virus 2014-11-25 Completed [facility] Vaccine [facility] IM 3+ 00:00:00 [facility] Influenza Virus 2014-11-25 Completed [facility] Vaccine [facility] IM 3+ 00:00:00 [facility] Influenza Virus 2014-11-25 Completed [facility]ine [facility] IM 3+ 00:00:00 [facility] Influenza Virus 2014-11-25 Completed [facility] Vaccine [facility] IM 3+ 00:00:00 [facility] Pneumococcal 2014-10-15 Completed [facility] Polysaccharide 00:00:00 of Medicin e Pneumococcal 2014-10-15 Completed [facility] Polysaccharide 00:00:00 of Medicin e Pneumococcal 2014-10-15 Completed [facility] Polysaccharide 00:00:00 of Medicin e Pneumococcal 2014-10-15 Completed [facility] Polysaccharide 00:00:00 of Medic[facility] e Pneumococcal 2014-10-15 Completed [facility] Polysaccharide 00:00:00 of Medicin e Pneumococcal 2014-10-15 Completed [facility] Polysaccharide 00:00:00 of Medicin e Pneumococcal 2014-10-15 Completed [facility] Polysaccharide, 00:00:00 [facility] PPSV23 (PNEUMOVAX) [place] Pneumococcal 2014-10-15 Completed [facility] Polysaccharide, 00:00:00 [place] [facility] PPSV23 (PNEUMOVAX) [facility] Pneumococcal 2014-10-15 Completed [facility] Polysaccharide, 00:00:00 [place] [facility] PPSV23 (PNEUMOVAX) [facility] Pneumococcal 2014-10-15 Completed [facility] Polysaccharide, 00:00:00 [place] [facility] PPSV23 (PNEUMOVAX) Branch Pneumococcal 2014-10-15 Completed [facility] Polysaccharide, 00:00:00 [place] [facility] PPSV23 (PNEUMOVAX) Branch Pneumococcal 2014-10-15 Completed [facility] Polysaccharide, 00:00:00 [place] [facility] PPSV23 (PNEUMOVAX) Branch Pneumococcal 2014-10-15 Completed [facility] Polysaccharide, 00:00:00 [place] [facility] PPSV23 (PNEUMOVAX) Branch Pneumococcal 2014-10-15 Completed [facility] Polysaccharide, 00:00:00 [place] [facility] PPSV23 (PNEUMOVAX) Branch Pneumococcal 2014-10-15 Completed [facility] Polysaccharide, 00:00:00 [place] [facility] PPSV23 (PNEUMOVAX) Branch Pneumococcal 2014-10-15 Completed [facility] Polysaccharide, 00:00:00 [place] [facility] PPSV23 (PNEUMOVAX) Branch Pneumococcal 2014-10-15 Completed [facility] Polysaccharide, 00:00:00 [place] [facility] PPSV23 (PNEUMOVAX) Branch Pneumococcal 2014-10-15 Completed [facility] Polysaccharide, 00:00:00 [place] [facility] PPSV23 (PNEUMOVAX) Branch Pneumococcal 2014-10-15 Completed [facility] Polysaccharide, 00:00:00 [place] [facility] PPSV23 (PNEUMOVAX) Branch Pneumococcal 2014-10-15 Completed [facility] Polysaccharide, 00:00:00 [place] [facility] PPSV23 (PNEUMOVAX) Branch Pneumococcal 2014-10-15 Completed [facility] Polysaccharide, 00:00:00 [place] [facility] PPSV23 (PNEUMOVAX) Branch Pneumococcal 2014-10-15 Completed [facility] Polysaccharide, 00:00:00 [place] [facility] PPSV23 (PNEUMOVAX) Branch Pneumococcal 2014-10-15 Completed [facility] Polysaccharide, 00:00:00 [place] [facility] PPSV23 (PNEUMOVAX) Branch Pneumococcal 2014-10-15 Completed [facility] Polysaccharide, 00:00:00 [place] [facility] PPSV23 (PNEUMOVAX) Branch Pneumococcal 2014-10-15 Completed [facility] Polysaccharide, 00:00:00 [place] [facility] PPSV23 (PNEUMOVAX) Branch Pneumococcal 2014-10-15 Completed [facility] Polysaccharide, 00:00:00 [place] [facility] PPSV23 (PNEUMOVAX) Branch Pneumococcal 2014-10-15 Completed [facility] Polysaccharide, 00:00:00 [place] [facility] PPSV23 (PNEUMOVAX) Branch Pneumococcal 2014-10-15 Completed [facility] Polysaccharide, 00:00:00 [place] [facility] PPSV23 (PNEUMOVAX) Branch Pneumococcal 2014-10-15 Completed [facility] Polysaccharide, 00:00:00 [place] [facility] PPSV23 (PNEUMOVAX) Branch Pneumococcal 2014-10-15 Completed [facility] Polysaccharide, 00:00:00 [place] [facility] PPSV23 (PNEUMOVAX) Branch Pneumococcal 2014-10-15 Completed [facility] Polysaccharide, 00:00:00 [place] [facility] PPSV23 (PNEUMOVAX) Branch Pneumococcal 2014-10-15 Completed [facility] Polysaccharide, 00:00:00 [place] [facility] PPSV23 (PNEUMOVAX) Branch Pneumococcal 2014-10-15 Completed [facility] Polysaccharide, 00:00:00 [place] [facility] PPSV23 (PNEUMOVAX) Branch Pneumococcal 2014-10-15 Completed [facility] Polysaccharide, 00:00:00 [place] [facility] PPSV23 (PNEUMOVAX) Branch Pneumococcal 2014-10-15 Completed [facility] Polysaccharide, 00:00:00 [place] [facility] PPSV23 (PNEUMOVAX) Branch Pneumococcal 2014-10-15 Completed [facility] Polysaccharide, 00:00:00 [place] [facility] PPSV23 (PNEUMOVAX) Branch Pneumococcal 2014-10-15 Completed [facility] Polysaccharide, 00:00:00 [place] [facility] PPSV23 (PNEUMOVAX) Branch Pneumococcal 2014-10-15 Completed [facility] Polysaccharide, 00:00:00 [place] [facility] PPSV23 (PNEUMOVAX) Branch Pneumococcal 2014-10-15 Completed [facility] Polysaccharide, 00:00:00 [place] [facility] PPSV23 (PNEUMOVAX) Branch Pneumococcal 2014-10-15 Completed [facility] Polysaccharide, 00:00:00 [place] [facility] PPSV23 (PNEUMOVAX) Branch Pneumococcal 2014-10-15 Completed [facility] Polysaccharide, 00:00:00 [place] [facility] PPSV23 (PNEUMOVAX) Branch Pneumococcal 2014-10-15 Completed [facility] Polysaccharide, 00:00:00 [place] [facility] PPSV23 (PNEUMOVAX) Branch Pneumococcal 2014-10-15 Completed [facility] Polysaccharide, 00:00:00 [place] [facility] PPSV23 (PNEUMOVAX) Branch Pneumococcal 2014-10-15 Completed [facility] Polysaccharide, 00:00:00 [place] [facility] PPSV23 (PNEUMOVAX) Branch Pneumococcal 2014-10-15 Completed [facility] Polysaccharide, 00:00:00 [place] [facility] PPSV23 (PNEUMOVAX) Branch Pneumococcal 2014-10-15 Completed [facility] Polysaccharide, 00:00:00 [place] [facility] PPSV23 (PNEUMOVAX) Branch Pneumococcal 2014-10-15 Completed [facility] Polysaccharide, 00:00:00 [place] [facility] PPSV23 (PNEUMOVAX) Branch Pneumococcal 2014-10-15 Completed [facility] Polysaccharide, 00:00:00 [place] [facility] PPSV23 (PNEUMOVAX) Branch Pneumococcal 2014-10-15 Completed [facility] Polysaccharide, 00:00:00 [place] [facility] PPSV23 (PNEUMOVAX) Branch Pneumococcal 2014-10-15 Completed [facility] Polysaccharide, 00:00:00 [place] [facility] PPSV23 (PNEUMOVAX) Branch Pneumococcal 2014-10-15 Completed [facility] Polysaccharide, 00:00:00 [place] [facility] PPSV23 (PNEUMOVAX) Branch Pneumococcal 2014-10-15 Completed [facility] Polysaccharide, 00:00:00 [place] [facility] PPSV23 (PNEUMOVAX) Branch Pneumococcal 2014-10-15 Completed [facility] Polysaccharide, 00:00:00 [place] [facility] PPSV23 (PNEUMOVAX) Branch Pneumococcal 2014-10-15 Completed [facility] Polysaccharide, 00:00:00 [place] [facility] PPSV23 (PNEUMOVAX) Branch Pneumococcal 2014-10-15 Completed [facility] Polysaccharide, 00:00:00 [place] [facility] PPSV23 (PNEUMOVAX) Branch Pneumococcal 2014-10-15 Completed [facility] Polysaccharide, 00:00:00 [place] [facility] PPSV23 (PNEUMOVAX) Branch Pneumococcal 2014-10-15 Completed [facility] Polysaccharide, 00:00:00 [place] [facility] PPSV23 (PNEUMOVAX) Branch Pneumococcal 2014-10-15 Completed [facility] Polysaccharide, 00:00:00 [place] [facility] PPSV23 (PNEUMOVAX) Branch Pneumococcal 2014-10-15 Completed [facility] Polysaccharide, 00:00:00 [place] [facility] PPSV23 (PNEUMOVAX) Branch Pneumococcal 2014-10-15 Completed [facility] Polysaccharide, 00:00:00 [place] [facility] PPSV23 (PNEUMOVAX) Branch Pneumococcal 2014-10-15 Completed [facility] Polysaccharide, 00:00:00 [place] [facility] PPSV23 (PNEUMOVAX) Branch Pneumococcal 2014-10-15 Completed [facility] Polysaccharide, 00:00:00 [place] [facility] PPSV23 (PNEUMOVAX) Branch Pneumococcal 2014-10-15 Completed [facility] Polysaccharide, 00:00:00 [place] [facility] PPSV23 (PNEUMOVAX) Branch Pneumococcal 2014-10-15 Completed [facility] Polysaccharide, 00:00:00 [place] [facility] PPSV23 (PNEUMOVAX) Branch Pneumococcal 2014-10-15 Completed [facility] Polysaccharide, 00:00:00 [place] [facility] PPSV23 (PNEUMOVAX) Branch Pneumococcal 2014-10-15 Completed [facility] Polysaccharide, 00:00:00 [place] [facility] PPSV23 (PNEUMOVAX) Branch Pneumococcal 2014-10-15 Completed [facility] Polysaccharide, 00:00:00 [place] [facility] PPSV23 (PNEUMOVAX) Branch Pneumococcal 2014-10-15 Completed [facility] Polysaccharide, 00:00:00 [place] [facility] PPSV23 (PNEUMOVAX) Branch Pneumococcal 2014-10-15 Completed [facility] Polysaccharide, 00:00:00 [place] [facility] PPSV23 (PNEUMOVAX) Branch Pneumococcal 2014-10-15 Completed [facility] Polysaccharide, 00:00:00 [place] [facility] PPSV23 (PNEUMOVAX) Branch Pneumococcal 2014-10-15 Completed [facility] Polysaccharide, 00:00:00 [place] [facility] PPSV23 (PNEUMOVAX) Branch Pneumococcal 2014-10-15 Completed [facility] Polysaccharide, 00:00:00 [place] [facility] PPSV23 (PNEUMOVAX) Branch Pneumococcal 2014-10-15 Completed [facility] Polysaccharide, 00:00:00 [place] [facility] PPSV23 (PNEUMOVAX) Branch Pneumococcal 2014-10-15 Completed [facility] Polysaccharide, 00:00:00 [place] [facility] PPSV23 (PNEUMOVAX) Branch Pneumococcal 2014-10-15 Completed [facility] Polysaccharide, 00:00:00 [place] [facility] PPSV23 (PNEUMOVAX) Branch Pneumococcal 2014-10-15 Completed [facility] Polysaccharide, 00:00:00 [place] [facility] PPSV23 (PNEUMOVAX) Branch Pneumococcal 2014-10-15 Completed [facility] Polysaccharide, 00:00:00 [place] [facility] PPSV23 (PNEUMOVAX) Branch Pneumococcal 2014-10-15 Completed [facility] Polysaccharide, 00:00:00 [place] [facility] PPSV23 (PNEUMOVAX) Branch Pneumococcal 2014-10-15 Completed [facility] Polysaccharide, 00:00:00 [place] [facility] PPSV23 (PNEUMOVAX) Branch Pneumococcal 2014-10-15 Completed [facility] Polysaccharide, 00:00:00 [place] [facility] PPSV23 (PNEUMOVAX) Branch Pneumococcal 2014-10-15 Completed [facility] Polysaccharide, 00:00:00 [place] [facility] PPSV23 (PNEUMOVAX) Branch Pneumococcal 2014-10-15 Completed [facility] Polysaccharide, 00:00:00 [place] [facility] PPSV23 (PNEUMOVAX) Branch Pneumococcal 2014-10-15 Completed [facility] Polysaccharide, 00:00:00 [place] [facility] PPSV23 (PNEUMOVAX) Branch Pneumococcal 2014-10-15 Completed [facility] Polysaccharide, 00:00:00 [place] [facility] PPSV23 (PNEUMOVAX) Branch Pneumococcal 2014-10-15 Completed [facility] Polysaccharide, 00:00:00 [place] [facility] PPSV23 (PNEUMOVAX) Branch Pneumococcal 2014-10-15 Completed [facility] Polysaccharide, 00:00:00 [place] [facility] PPSV23 (PNEUMOVAX) Branch Pneumococcal 2014-10-15 Completed [facility] Polysaccharide, 00:00:00 [place] [facility] PPSV23 (PNEUMOVAX) Branch Pneumococcal 2014-10-15 Completed [facility] Polysaccharide, 00:00:00 [place] [facility] PPSV23 (PNEUMOVAX) Branch Pneumococcal 2014-10-15 Completed [facility] Polysaccharide, 00:00:00 [place] [facility] PPSV23 (PNEUMOVAX) Branch Pneumococcal 2014-10-15 Completed [facility] Polysaccharide, 00:00:00 [place] [facility] PPSV23 (PNEUMOVAX) Branch Pneumococcal 2014-10-15 Completed [facility] Polysaccharide, 00:00:00 [place] [facility] PPSV23 (PNEUMOVAX) Branch Pneumococcal 2014-10-15 Completed [facility] Polysaccharide, 00:00:00 [place] [facility] PPSV23 (PNEUMOVAX) Branch Pneumococcal 2014-10-15 Completed [facility] Polysaccharide, 00:00:00 [place] [facility] PPSV23 (PNEUMOVAX) Branch Pneumococcal 2014-10-15 Completed [facility] Polysaccharide, 00:00:00 [place] [facility] PPSV23 (PNEUMOVAX) Branch Pneumococcal 2014-10-15 Completed [facility] Polysaccharide, 00:00:00 [place] [facility] PPSV23 (PNEUMOVAX) Branch Pneumococcal 2014-10-15 Completed [facility] Polysaccharide, 00:00:00 [place] [facility] PPSV23 (PNEUMOVAX) Branch Pneumococcal 2014-10-15 Completed [facility] Polysaccharide, 00:00:00 [place] [facility] PPSV23 (PNEUMOVAX) Branch Pneumococcal 2014-10-15 Completed [facility] Polysaccharide, 00:00:00 [place] [facility] PPSV23 (PNEUMOVAX) Branch Pneumococcal 2014-10-15 Completed [facility] Polysaccharide, 00:00:00 [place] [facility] PPSV23 (PNEUMOVAX) Branch Pneumococcal 2014-10-15 Completed [facility] Polysaccharide, 00:00:00 [place] [facility] PPSV23 (PNEUMOVAX) Branch Pneumococcal 2014-10-15 Completed [facility] Polysaccharide, 00:00:00 [place] [facility] PPSV23 (PNEUMOVAX) Branch Pneumococcal 2014-10-15 Completed [facility] Polysaccharide, 00:00:00 [place] [facility] PPSV23 (PNEUMOVAX) Branch Pneumococcal 2014-10-15 Completed [facility] Polysaccharide, 00:00:00 [place] [facility] PPSV23 (PNEUMOVAX) Branch Pneumococcal 2014-10-15 Completed [facility] Polysaccharide, 00:00:00 [place] [facility] PPSV23 (PNEUMOVAX) Branch Pneumococcal 2014-10-15 Completed [facility] Polysaccharide, 00:00:00 [place] [facility] PPSV23 (PNEUMOVAX) Branch Pneumococcal 2014-10-15 Completed [facility] Polysaccharide, 00:00:00 [place] [facility] PPSV23 (PNEUMOVAX) Branch Pneumococcal 2014-10-15 Completed [facility] Polysaccharide, 00:00:00 [place] [facility] PPSV23 (PNEUMOVAX) Branch Pneumococcal 2014-10-15 Completed [facility] Polysaccharide, 00:00:00 [place] [facility] PPSV23 (PNEUMOVAX) Branch Pneumococcal 2014-10-15 Completed [facility] Polysaccharide, 00:00:00 [place] [facility] PPSV23 (PNEUMOVAX) Branch Pneumococcal 2014-10-15 Completed [facility] Polysaccharide, 00:00:00 [place] [facility] PPSV23 (PNEUMOVAX) Branch Pneumococcal 2014-10-15 Completed [facility] Polysaccharide, 00:00:00 [place] [facility] PPSV23 (PNEUMOVAX) Branch Pneumococcal 2014-10-15 Completed [facility] Polysaccharide, 00:00:00 [place] [facility] PPSV23 (PNEUMOVAX) Branch Tetanus 2013-09-02 Completed [facility] 00:00:00 of Medicine Tetanus 2013-09-02 Completed [facility] 00:00:00 of Medicine Tetanus 2013-09-02 Completed [facility] 00:00:00 of Medicine Tetanus 2013-09-02 Completed [facility] 00:00:00 of Medicine Tetanus 2013-09-02 Completed [facility] 00:00:00 of Medicine Tetanus 2013-09-02 Completed [facility] 00:00:00 of Medicine Tetanus 2013-09-02 Completed [facility] 00:00:00 of Medicine Tetanus 2013-09-02 Completed [facility] 00:00:00 of Medicine Tetanus 2013-09-02 Completed [facility] 00:00:00 of Medicine Tetanus 2013-09-02 Completed [facility] 00:00:00 of Medicine Tetanus 2013-09-02 Completed [facility] 00:00:00 of Medicine Tetanus 2013-09-02 Completed [facility] 00:00:00 of Medicine Tetanus Toxoid, 2013-09-02 Completed [facility] Absorbed 00:00:00 [facility] Tetanus Toxoid, 2013-09-02 Completed [facility] Absorbed 00:00:00 [facility] Tetanus Toxoid, 2013-09-02 Completed [facility] Absorbed 00:00:00 [facility] Tetanus Toxoid, 2013-09-02 Completed [facility] Absorbed 00:00:00 [facility] Tetanus Toxoid, 2013-09-02 Completed [facility] Absorbed 00:00:00 [facility] Tetanus Toxoid, 2013-09-02 Completed [facility] Absorbed 00:00:00 [facility] Tetanus Toxoid, 2013-09-02 Completed [facility] Absorbed 00:00:00 [facility] Tetanus Toxoid, 2013-09-02 Completed [facility] Absorbed 00:00:00 [facility] Tetanus Toxoid, 2013-09-02 Completed [facility] Absorbed 00:00:00 [facility] Tetanus Toxoid, 2013-09-02 Completed [facility] Absorbed 00:00:00 [facility] Tetanus Toxoid, 2013-09-02 Completed [facility] Absorbed 00:00:00 [facility] Tetanus Toxoid, 2013-09-02 Completed [facility] Absorbed 00:00:00 [facility] Tetanus Toxoid, 2013-09-02 Completed [facility] Absorbed 00:00:00 [facility] Tetanus Toxoid, 2013-09-02 Completed [facility] Absorbed 00:00:00 [facility] Tetanus Toxoid, 2013-09-02 Completed [facility] Absorbed 00:00:00 [facility] Tetanus Toxoid, 2013-09-02 Completed [facility] Absorbed 00:00:00 [facility] Tetanus Toxoid, 2013-09-02 Completed [facility] Absorbed 00:00:00 [facility] Tetanus Toxoid, 2013-09-02 Completed [facility] Absorbed 00:00:00 [facility] Tetanus Toxoid, 2013-09-02 Completed [facility] Absorbed 00:00:00 [facility] Tetanus Toxoid, 2013-09-02 Completed [facility] Absorbed 00:00:00 [facility] Tetanus Toxoid, 2013-09-02 Completed [facility] Absorbed 00:00:00 [facility] Tetanus Toxoid, 2013-09-02 Completed [facility] Absorbed 00:00:00 [facility] Tetanus Toxoid, 2013-09-02 Completed [facility] Absorbed 00:00:00 [facility] Tetanus Toxoid, 2013-09-02 Completed [facility] Absorbed 00:00:00 [facility] Tetanus Toxoid, 2013-09-02 Completed [facility] Absorbed 00:00:00 [facility] Tetanus Toxoid, 2013-09-02 Completed [facility] Absorbed 00:00:00 [facility] Tetanus Toxoid, 2013-09-02 Completed [facility] Absorbed 00:00:00 [facility] Tetanus Toxoid, 2013-09-02 Completed [facility] Absorbed 00:00:00 [facility] Tetanus Toxoid, 2013-09-02 Completed [facility] Absorbed 00:00:00 [facility] Tetanus Toxoid, 2013-09-02 Completed [facility] Absorbed 00:00:00 [facility] Tetanus Toxoid, 2013-09-02 Completed [facility] Absorbed 00:00:00 [facility] Tetanus Toxoid, 2013-09-02 Completed [facility] Absorbed 00:00:00 [facility] Tetanus Toxoid, 2013-09-02 Completed [facility] Absorbed 00:00:00 [facility] Tetanus Toxoid, 2013-09-02 Completed [facility] Absorbed 00:00:00 [facility] Tetanus Toxoid, 2013-09-02 Completed [facility] Absorbed 00:00:00 [facility] Tetanus Toxoid, 2013-09-02 Completed [facility] Absorbed 00:00:00 [facility] Tetanus Toxoid, 2013-09-02 Completed [facility] Absorbed 00:00:00 [facility] Tetanus Toxoid, 2013-09-02 Completed [facility] Absorbed 00:00:00 [facility] Tetanus Toxoid, 2013-09-02 Completed [facility] Absorbed 00:00:00 [facility] Tetanus Toxoid, 2013-09-02 Completed [facility] Absorbed 00:00:00 [facility] Tetanus Toxoid, 2013-09-02 Completed [facility] Absorbed 00:00:00 [facility] Tetanus Toxoid, 2013-09-02 Completed [facility] Absorbed 00:00:00 [facility] Tetanus Toxoid, 2013-09-02 Completed [facility] Absorbed 00:00:00 [facility] Tetanus Toxoid, 2013-09-02 Completed [facility] Absorbed 00:00:00 [facility] Tetanus Toxoid, 2013-09-02 Completed [facility] Absorbed 00:00:00 [facility] Tetanus Toxoid, 2013-09-02 Completed [facility] Absorbed 00:00:00 [facility] Tetanus Toxoid, 2013-09-02 Completed [facility] Absorbed 00:00:00 [facility] Tetanus Toxoid, 2013-09-02 Completed [facility] 00:00:00 [facility] Tetanus Toxoid, 2013-09-02 Completed [facility] 00:00:00 [facility] Tetanus Toxoid, 2013-09-02 Completed [facility]bed 00:00:00 [facility] Tetanus Toxoid, 2013-09-02 Completed [facility]bed 00:00:00 [facility] Tetanus Toxoid, 2013-09-02 Completed [facility]bed 00:00:00 [facility] Tetanus Toxoid, 2013-09-02 Completed [facility]bed 00:00:00 [facility] Tetanus Toxoid, 2013-09-02 Completed [facility]bed 00:00:00 [facility] Tetanus Toxoid, 2013-09-02 Completed [facility]bed 00:00:00 [facility] Tetanus Toxoid, 2013-09-02 Completed [facility]bed 00:00:00 [facility] Tetanus Toxoid, 2013-09-02 Completed [facility]bed 00:00:00 [facility] Tetanus Toxoid, 2013-09-02 Completed [facility]bed 00:00:00 [facility] Tetanus Toxoid, 2013-09-02 Completed [facility]bed 00:00:00 [facility] Tetanus Toxoid, 2013-09-02 Completed [facility]bed 00:00:00 [facility] Tetanus Toxoid, 2013-09-02 Completed [facility] Abs[facility]bed 00:00:00 [facility] Tetanus Toxoid, 2013-09-02 Completed [facility] Abs[facility]bed 00:00:00 [facility] Tetanus Toxoid, 2013-09-02 Completed [facility]bed 00:00:00 [facility] Tetanus Toxoid, 2013-09-02 Completed [facility]bed 00:00:00 [facility] Tetanus Toxoid, 2013-09-02 Completed [facility]bed 00:00:00 [facility] Tetanus Toxoid, 2013-09-02 Completed [facility] Abs[facility]bed 00:00:00 [facility] Tetanus Toxoid, 2013-09-02 Completed [facility] Abs[facility]bed 00:00:00 [facility] Tetanus Toxoid, 2013-09-02 Completed [facility]bed 00:00:00 [facility] Tetanus Toxoid, 2013-09-02 Completed [facility] Abs[facility]bed 00:00:00 [facility] Tetanus Toxoid, 2013-09-02 Completed [facility] Abs[facility]bed 00:00:00 [facility] Tetanus Toxoid, 2013-09-02 Completed [facility] Abs[facility]bed 00:00:00 [facility] Tetanus Toxoid, 2013-09-02 Completed [facility]bed 00:00:00 [facility] Tetanus Toxoid, 2013-09-02 Completed [facility]bed 00:00:00 [facility] Tetanus Toxoid, 2013-09-02 Completed [facility]bed 00:00:00 [facility] Tetanus Toxoid, 2013-09-02 Completed [facility]bed 00:00:00 [facility] Tetanus Toxoid, 2013-09-02 Completed [facility] Abs[facility]bed 00:00:00 [facility] Tetanus Toxoid, 2013-09-02 Completed [facility]bed 00:00:00 [facility] Tetanus Toxoid, 2013-09-02 Completed [facility]bed 00:00:00 [facility] Tetanus Toxoid, 2013-09-02 Completed [facility]bed 00:00:00 [facility] Tetanus Toxoid, 2013-09-02 Completed [facility]bed 00:00:00 [facility] Tetanus Toxoid, 2013-09-02 Completed [facility] Abs[facility]bed 00:00:00 [facility] Tetanus Toxoid, 2013-09-02 Completed [facility]bed 00:00:00 [facility] Tetanus Toxoid, 2013-09-02 Completed [facility]bed 00:00:00 [facility] Tetanus Toxoid, 2013-09-02 Completed [facility] Abs[facility]bed 00:00:00 [facility] Tetanus Toxoid, 2013-09-02 Completed [facility]bed 00:00:00 [facility] Tetanus Toxoid, 2013-09-02 Completed [facility]bed 00:00:00 [facility] Tetanus Toxoid, 2013-09-02 Completed [facility]bed 00:00:00 [facility] Tetanus Toxoid, 2013-09-02 Completed [facility]bed 00:00:00 [facility] Tetanus Toxoid, 2013-09-02 Completed [facility] Abs[facility]bed 00:00:00 [facility] Tetanus Toxoid, 2013-09-02 Completed [facility] Abs[facility]bed 00:00:00 [facility] Tetanus Toxoid, 2013-09-02 Completed [facility] Abs[facility]bed 00:00:00 [facility] Tetanus Toxoid, 2013-09-02 Completed [facility]bed 00:00:00 [facility] Tetanus Toxoid, 2013-09-02 Completed [facility]bed 00:00:00 [facility] Tetanus Toxoid, 2013-09-02 Completed [facility] Abs[facility]bed 00:00:00 [facility] Tetanus Toxoid, 2013-09-02 Completed [facility]bed 00:00:00 [facility] Tetanus Toxoid, 2013-09-02 Completed [facility]bed 00:00:00 [facility] Tetanus Toxoid, 2013-09-02 Completed [facility] Abs[facility]bed 00:00:00 [facility] Tetanus Toxoid, 2013-09-02 Completed [facility]bed 00:00:00 [facility] Tetanus Toxoid, 2013-09-02 Completed [facility]bed 00:00:00 [facility] Tetanus Toxoid, 2013-09-02 Completed [facility]bed 00:00:00 [facility] Tetanus Toxoid, 2013-09-02 Completed [facility]bed 00:00:00 [facility] Tetanus Toxoid, 2013-09-02 Completed [facility]bed 00:00:00 [facility] Tetanus Toxoid, 2013-09-02 Completed [facility]bed 00:00:00 [facility] Tetanus Toxoid, 2013-09-02 Completed [facility] Abs[facility]bed 00:00:00 [facility] Tetanus Toxoid, 2013-09-02 Completed [facility] 00:00:00 [facility] Tetanus Toxoid, 2013-09-02 Completed [facility] 00:00:00 [facility] TDAP 2013-08-14 Completed [facility] 00:00:00 [facility] Tdap 2013-08-14 Completed [employer] 00:00:00 of Medicine Tdap 2013-08-14 Completed [facility] 00:00:00 of Medicine Tdap 2013-08-14 Completed [employer] 00:00:00 of Medicine Tdap 2013-08-14 Completed [employer] 00:00:00 of Medicine Tdap 2013-08-14 Completed [employer] 00:00:00 of Medicine Tdap 2013-08-14 Completed [employer] 00:00:00 of Medicine TDAP 2013-08-14 Completed [facility] 00:00:00 [facility] TDAP 2013-08-14 Completed [facility] 00:00:00 [facility] TDAP 2013-08-14 Completed [facility] 00:00:00 [facility] TDAP 2013-08-14 Completed [facility] 00:00:00 [facility] TDAP 2013-08-14 Completed [facility] 00:00:00 [facility] TDAP 2013-08-14 Completed [facility] 00:00:00 [facility] TDAP 2013-08-14 Completed [facility] 00:00:00 [facility] TDAP 2013-08-14 Completed [facility] 00:00:00 [facility] TDAP 2013-08-14 Completed [facility] 00:00:00 [facility] TDAP 2013-08-14 Completed [facility] 00:00:00 [facility] TDAP 2013-08-14 Completed [facility] 00:00:00 [facility] TDAP 2013-08-14 Completed [facility] 00:00:00 [facility] TDAP 2013-08-14 Completed [facility] 00:00:00 [facility] TDAP 2013-08-14 Completed [facility] 00:00:00 [facility] TDAP 2013-08-14 Completed [facility] 00:00:00 [facility] TDAP 2013-08-14 Completed [facility] 00:00:00 [facility] TDAP 2013-08-14 Completed [facility] 00:00:00 [facility] TDAP 2013-08-14 Completed [facility] 00:00:00 [facility] TDAP 2013-08-14 Completed [facility] 00:00:00 [facility] TDAP 2013-08-14 Completed [facility] 00:00:00 [facility] TDAP 2013-08-14 Completed [facility] 00:00:00 [facility] TDAP 2013-08-14 Completed [facility] 00:00:00 [facility] TDAP 2013-08-14 Completed [facility] 00:00:00 [facility] TDAP 2013-08-14 Completed [facility] 00:00:00 [facility] TDAP 2013-08-14 Completed [facility] 00:00:00 [facility] TDAP 2013-08-14 Completed [facility] 00:00:00 [facility] TDAP 2013-08-14 Completed [facility] 00:00:00 [facility] TDAP 2013-08-14 Completed [facility] 00:00:00 [facility] TDAP 2013-08-14 Completed [facility] 00:00:00 [facility] TDAP 2013-08-14 Completed [facility] 00:00:00 [facility] TDAP 2013-08-14 Completed [facility] 00:00:00 [facility] TDAP 2013-08-14 Completed [facility] 00:00:00 [facility] TDAP 2013-08-14 Completed [facility] 00:00:00 [facility] TDAP 2013-08-14 Completed [facility] 00:00:00 [facility] TDAP 2013-08-14 Completed [facility] 00:00:00 [facility] TDAP 2013-08-14 Completed [facility] 00:00:00 [facility] TDAP 2013-08-14 Completed [facility] 00:00:00 [facility] TDAP 2013-08-14 Completed [facility] 00:00:00 [facility] TDAP 2013-08-14 Completed [facility] 00:00:00 [facility] TDAP 2013-08-14 Completed [facility] 00:00:00 [facility] TDAP 2013-08-14 Completed [facility] 00:00:00 [facility] TDAP 2013-08-14 Completed [facility] 00:00:00 [facility] TDAP 2013-08-14 Completed [facility] 00:00:00 [facility] TDAP 2013-08-14 Completed [facility] 00:00:00 [facility] TDAP 2013-08-14 Completed [facility] 00:00:00 [facility] TDAP 2013-08-14 Completed [facility] 00:00:00 [facility] TDAP 2013-08-14 Completed [facility] 00:00:00 [facility] TDAP 2013-08-14 Completed [facility] 00:00:00 [facility] TDAP 2013-08-14 Completed [facility] 00:00:00 [facility] TDAP 2013-08-14 Completed [facility] 00:00:00 [facility] TDAP 2013-08-14 Completed [facility] 00:00:00 [facility] TDAP 2013-08-14 Completed [facility] 00:00:00 [facility] TDAP 2013-08-14 Completed [facility] 00:00:00 [facility] TDAP 2013-08-14 Completed [facility] 00:00:00 [facility] TDAP 2013-08-14 Completed [facility] 00:00:00 [facility] TDAP 2013-08-14 Completed [facility] 00:00:00 [facility] TDAP 2013-08-14 Completed [facility] 00:00:00 [facility] TDAP 2013-08-14 Completed [facility] 00:00:00 [facility] TDAP 2013-08-14 Completed [facility] 00:00:00 [facility] TDAP 2013-08-14 Completed [facility] 00:00:00 [facility] TDAP 2013-08-14 Completed [facility] 00:00:00 [facility] TDAP 2013-08-14 Completed [facility] 00:00:00 [facility] TDAP 2013-08-14 Completed [facility] 00:00:00 [facility] TDAP 2013-08-14 Completed [facility] 00:00:00 [facility] TDAP 2013-08-14 Completed [facility] 00:00:00 [facility] TDAP 2013-08-14 Completed [facility] 00:00:00 [facility] TDAP 2013-08-14 Completed [facility] 00:00:00 [facility] TDAP 2013-08-14 Completed [facility] 00:00:00 [facility] TDAP 2013-08-14 Completed [facility] 00:00:00 [facility] TDAP 2013-08-14 Completed [facility] 00:00:00 [facility] TDAP 2013-08-14 Completed [facility] 00:00:00 [facility] TDAP 2013-08-14 Completed [facility] 00:00:00 [facility] TDAP 2013-08-14 Completed [facility] 00:00:00 [facility] TDAP 2013-08-14 Completed [facility] 00:00:00 [facility] TDAP 2013-08-14 Completed [facility] 00:00:00 [facility] TDAP 2013-08-14 Completed [facility] 00:00:00 [facility] TDAP 2013-08-14 Completed [facility] 00:00:00 [facility] TDAP 2013-08-14 Completed [facility] 00:00:00 [facility] TDAP 2013-08-14 Completed [facility] 00:00:00 [facility] TDAP 2013-08-14 Completed [facility] 00:00:00 [facility] TDAP 2013-08-14 Completed [facility] 00:00:00 [facility] TDAP 2013-08-14 Completed [facility] 00:00:00 [facility] TDAP 2013-08-14 Completed [facility] 00:00:00 [facility] TDAP 2013-08-14 Completed [facility] 00:00:00 [facility] TDAP 2013-08-14 Completed [facility] 00:00:00 [facility] TDAP 2013-08-14 Completed [facility] 00:00:00 [facility] TDAP 2013-08-14 Completed [facility] 00:00:00 [facility] TDAP 2013-08-14 Completed [facility] 00:00:00 [facility] TDAP 2013-08-14 Completed [facility] 00:00:00 [facility] TDAP 2013-08-14 Completed [facility] 00:00:00 [facility] TDAP 2013-08-14 Completed [facility] 00:00:00 [facility] TDAP 2013-08-14 Completed [facility] 00:00:00 [facility] TDAP 2013-08-14 Completed [facility] 00:00:00 [facility] TDAP 2013-08-14 Completed [facility] 00:00:00 [facility] TDAP 2013-08-14 Completed [facility] 00:00:00 [facility] TDAP 2013-08-14 Completed [facility] 00:00:00 [facility] TDAP 2013-08-14 Completed [facility] 00:00:00 [facility] TDAP 2013-08-14 Completed [facility] 00:00:00 [facility] TDAP 2013-08-14 Completed [facility] 00:00:00 [facility] TDAP 2013-08-14 Completed [facility] 00:00:00 [facility] TDAP 2013-08-14 Completed [facility] 00:00:00 [facility] TDAP 2013-08-14 Completed [facility] 00:00:00 [facility] TDAP 2013-08-14 Completed [facility] 00:00:00 [facility] TDAP 2013-08-14 Completed [facility] 00:00:00 [facility] TDAP 2013-08-14 Completed [facility] 00:00:00 [facility] Proquad 1992 Completed [facility] of (MMR/VARICELLA) 00:00:00 [facility] Proquad 1992 Completed [facility] of (MMR/VARICELLA) 00:00:00 [facility] Proquad 1992 Completed [facility] of (MMR/VARICELLA) 00:00:00 [facility] Proquad 1992 Completed [facility] of (MMR/VARICELLA) 00:00:00 [facility] Proquad 1992 Completed [facility] of (MMR/VARICELLA) 00:00:00 [facility] Proquad 1992 Completed [facility] of (MMR/VARICELLA) 00:00:00 [facility] Proquad 1992 Completed [facility] of (MMR/VARICELLA) 00:00:00 [facility] Proquad 1992 Completed [facility] of (MMR/VARICELLA) 00:00:00 [facility] Proquad 1992 Completed [facility] of (MMR/VARICELLA) 00:00:00 [facility] Proquad 1992 Completed [facility] of (MMR/VARICELLA) 00:00:00 [facility] Proquad 1992 Completed [facility] of (MMR/VARICELLA) 00:00:00 [facility] Proquad 1992 Completed [facility] of (MMR/VARICELLA) 00:00:00 [facility] Proquad 1992 Completed [facility] of (MMR/VARICELLA) 00:00:00 [facility] Proquad 1992 Completed [facility] of (MMR/VARICELLA) 00:00:00 [facility] Proquad 1992 Completed [facility] 00:00:00 [facility] Proquad 1992 Completed [facility] of (MMR/VARICELLA) 00:00:00 [facility] Proquad 1992 Completed [facility] of (MMR/VARICELLA) 00:00:00 [facility] Proquad 1992 Completed [facility] of (MMR/VARICELLA) 00:00:00 [facility] Proquad 1992 Completed [facility] of (MMR/VARICELLA) 00:00:00 [facility] Proquad 1992 Completed [facility] of (MMR/VARICELLA) 00:00:00 [facility] Proquad 1992 Completed [facility] of (MMR/VARICELLA) 00:00:00 [facility] Proquad 1992 Completed [facility] of (MMR/VARICELLA) 00:00:00 [facility] Proquad 1992 Completed [facility] of (MMR/VARICELLA) 00:00:00 [facility] Proquad 1992 Completed [facility] of (MMR/VARICELLA) 00:00:00 [facility] Proquad 1992 Completed [facility] of (MMR/VARICELLA) 00:00:00 [facility] Proquad 1992 Completed [facility] of (MMR/VARICELLA) 00:00:00 [facility] Proquad 1992 Completed [facility] of (MMR/VARICELLA) 00:00:00 [facility] Proquad 1992 Completed [facility] of (MMR/VARICELLA) 00:00:00 [facility] Proquad 1992 Completed [facility] of (MMR/VARICELLA) 00:00:00 [facility] Proquad 1992 Completed [facility] of (MMR/VARICELLA) 00:00:00 [facility] Proquad 1992 Completed [facility] of (MMR/VARICELLA) 00:00:00 [facility] Proquad 1992 Completed [facility] of (MMR/VARICELLA) 00:00:00 [facility] Proquad 1992 Completed [facility] of (MMR/VARICELLA) 00:00:00 [facility] Proquad 1992 Completed [facility] of (MMR/VARICELLA) 00:00:00 [facility] Proquad 1992 Completed [facility] of (MMR/VARICELLA) 00:00:00 [facility] Proquad 1992 Completed [facility] of (MMR/VARICELLA) 00:00:00 [facility] Proquad 1992 Completed [facility] of (MMR/VARICELLA) 00:00:00 [facility] Proquad 1992 Completed [facility] of (MMR/VARICELLA) 00:00:00 [facility] Proquad 1992 Completed [facility] of (MMR/VARICELLA) 00:00:00 [facility] Proquad 1992 Completed [facility] of (MMR/VARICELLA) 00:00:00 [facility] Proquad 1992 Completed [facility] of (MMR/VARICELLA) 00:00:00 [facility] Proquad 1992 Completed [facility] of (MMR/VARICELLA) 00:00:00 [facility] Proquad 1992 Completed [facility] of (MMR/VARICELLA) 00:00:00 [facility] Proquad 1992 Completed [facility] of (MMR/VARICELLA) 00:00:00 [facility] Proquad 1992 Completed [facility] of (MMR/VARICELLA) 00:00:00 [facility] Proquad 1992 Completed [facility] of (MMR/VARICELLA) 00:00:00 [facility] Proquad 1992 Completed [facility] of (MMR/VARICELLA) 00:00:00 [facility] Proquad 1992 Completed [facility] of (MMR/VARICELLA) 00:00:00 [facility] Proquad 1992 Completed [facility] of (MMR/VARICELLA) 00:00:00 [facility] Proquad 1992 Completed [facility] of (MMR/VARICELLA) 00:00:00 [facility] Proquad 1992 Completed [facility] of (MMR/VARICELLA) 00:00:00 [facility] Proquad 1992 Completed [facility]VAR[facility]LLA[facility] 00:00:00 [facility] Proquad 1992 Completed [facility] of (MMR/VARICELLA) 00:00:00 [facility] Proquad 1992 Completed [facility] of (MMR/VARICELLA) 00:00:00 [facility] Proquad 1992 Completed [facility] of (MMR/VARICELLA) 00:00:00 [facility] Proquad 1992 Completed [facility] of (MMR/VARICELLA) 00:00:00 [facility] Proquad 1992 Completed [facility] of (MMR/VARICELLA) 00:00:00 [facility] Proquad 1992 Completed [facility] of (MMR/VARICELLA) 00:00:00 [facility] Proquad 1992 Completed [facility] of (MMR/VARICELLA) 00:00:00 [facility] Proquad 1992 Completed [facility] of (MMR/VARICELLA) 00:00:00 [facility] Proquad 1992 Completed [facility] of (MMR/VARICELLA) 00:00:00 [facility] Proquad 1992 Completed [facility] of (MMR/VARICELLA) 00:00:00 [facility] Proquad 1992 Completed [facility] of (MMR/VARICELLA) 00:00:00 [facility] Proquad 1992 Completed [facility] of (MMR/VARICELLA) 00:00:00 [facility] Proquad 1992 Completed [facility] of (MMR/VARICELLA) 00:00:00 [facility] Proquad 1992 Completed [facility] of (MMR/VARICELLA) 00:00:00 [facility] Proquad 1992 Completed [facility] of (MMR/VARICELLA) 00:00:00 [facility] Proquad 1992 Completed [facility] of (MMR/VARICELLA) 00:00:00 [facility] Proquad 1992 Completed [facility] of (MMR/VARICELLA) 00:00:00 [facility] Proquad 1992 Completed [facility] (MMR/VARICELLA) 00:00:00 [facility] Proquad 1992 Completed [facility] (MMR[facility]VARICELLA) 00:00:00 [facility] Proquad 1992 Completed [facility] of (MMR/VARICELLA) 00:00:00 [facility] Proquad 1992 Completed [facility] of (MMR/VARICELLA) 00:00:00 [facility] Proquad 1992 Completed [facility] of (MMR/VARICELLA) 00:00:00 [facility] Proquad 1992 Completed [facility] of (MMR/VARICELLA) 00:00:00 [facility] Proquad 1992 Completed [facility] of (MMR/VARICELLA) 00:00:00 [facility] Proquad 1992 Completed [facility] of (MMR/VARICELLA) 00:00:00 [facility] Proquad 1992 Completed [facility] of (MMR/VARICELLA) 00:00:00 [facility] Proquad 1992 Completed [facility] of (MMR/VARICELLA) 00:00:00 [facility] Proquad 1992 Completed [facility] of (MMR/VARICELLA) 00:00:00 [facility] Proquad 1992 Completed [facility] of (MMR/VARICELLA) 00:00:00 [facility] Proquad 1992 Completed [facility] of (MMR/VARICELLA) 00:00:00 [facility] Proquad 1992 Completed [facility] of (MMR/VARICELLA) 00:00:00 [facility] Proquad 1992 Completed [facility] of (MMR/VARICELLA) 00:00:00 [facility] Proquad 1992 Completed [facility] of (MMR/VARICELLA) 00:00:00 [facility] Proquad 1992 Completed [facility] of (MMR/VARICELLA) 00:00:00 [facility] Proquad 1992 Completed [facility] of (MMR/VARICELLA) 00:00:00 [facility] Proquad 1992 Completed [facility] of (MMR/VARICELLA) 00:00:00 [facility] Proquad 1992 Completed [facility] of (MMR/VARICELLA) 00:00:00 [facility] Proquad 1992 Completed [facility] of (MMR/VARICELLA) 00:00:00 [facility] Proquad 1992 Completed [facility] of (MMR/VARICELLA) 00:00:00 [facility] Proquad 1992 Completed [facility] of (MMR/VARICELLA) 00:00:00 [facility] Proquad 1992 Completed [facility] of (MMR/VARICELLA) 00:00:00 [facility] Proquad 1992 Completed [facility] of (MMR/VARICELLA) 00:00:00 [facility] Proquad 1992 Completed [facility] (MMR/VARICELLA) 00:00:00 [facility] Proquad 1992 Completed [facility] (MMR/VARICELLA) 00:00:00 [facility] Proquad 1992 Completed [facility] (MMR/VARICELLA) 00:00:00 [facility] Proquad 1992 Completed [facility] of (MMR/VARICELLA) 00:00:00 [facility] Proquad 1992 Completed [facility] of (MMR/VARICELLA) 00:00:00 [facility] Proquad 1992 Completed [facility] of (MMR/VARICELLA) 00:00:00 [facility] Proquad 1992 Completed [facility] (MMR/VARICELLA) 00:00:00 [facility] Proquad 1992 Completed [facility] (MMR/VARICELLA) 00:00:00 [facility] Proquad 1992 Completed [facility] (MMR/VARICELLA) 00:00:00 [facility] MMRV 1992 [facility] MMRV 1992 Completed [employer] 00:00:00 of Medicine MMRV 1992 Completed [facility] 00:00:00 of Medicine MMRV 1992 Completed [facility] 00:00:00 [facility] Medicine MMRV 1992 Completed [facility] 00:00:00 of Medicine MMRV 1992 Completed [facility] 00:00:00 [facility] Varicella 1989 Completed [facility] (varivax)(chicken 00:00:00 [facility] Varicella 1989 Completed [facility] (varivax)(chicken 00:00:00 [facility] Varicella 1989 Completed [facility] (varivax)(chicken 00:00:00 [facility] Varicella 1989 Completed [facility] (varivax)(chicken 00:00:00 [facility] Varicella 1989 Completed [facility] (varivax)(chicken 00:00:00 [facility] Varicella 1989 Completed [facility] (varivax)(chicken 00:00:00 [facility] Varicella 1989 Completed [facility] (varivax)(chicken 00:00:00 [facility] Varicella 1989 Completed [facility] (varivax)(chicken 00:00:00 [facility] Varicella 1989 Completed [facility] (varivax)(chicken 00:00:00 [facility] Varicella 1989 Completed [facility] (varivax)(chicken [facility] Varicella 1989 Completed [facility] Varicella 1989 Completed [facility] Varicella 1989 Completed [facility] Varicella 1989 Completed [facility] Varicella 1989 Completed [facility] Varicella 1989 Completed [facility] Varicella 1989 Completed [facility] Varicella 1989 Completed [facility] Varicella 1989 Completed [facility] Varicella 1989 Completed [facility] Varicella 1989 Completed [facility] Varicella 1989 Completed [facility] Varicella 1989 Completed [facility] 00[facility] Varicella 1989 Completed [facility] 00[facility] Varicella 1989 Completed [facility] 00:[facility] Varicella 1989 Completed [facility] 00[facility] Varicella 1989 Completed [facility] 00:[facility] Varicella 1989 Completed [facility] Varicella 1989 Completed [facility] Varicella 1989 Completed [facility] Varicella 1989 Completed [facility] Varicella 1989 Completed [facility] Varicella 1989 Completed [facility] Varicella 1989 Completed [facility] Varicella 1989 Completed [facility] 00:[facility] Varicella 1989 Completed [facility] Varicella 1989 Completed [facility] 00:[facility] Varicella 1989 Completed [facility] 00[facility] Varicella 1989 Completed [facility] 00[facility] Varicella 1989 Completed [facility] 00[facility] Varicella 1989 Completed [facility] Varicella 1989 Completed [facility] 00[facility] Varicella 1989 Completed [facility] 00[facility] Varicella 1989 Completed [facility] 00:[facility] Varicella 1989 Completed [facility] 00[facility] Varicella 1989 Completed [facility] Varicella 1989 Completed [facility] 00:[facility] Varicella 1989 Completed [facility] 00[facility] Varicella 1989 Completed [facility] 00:[facility] Varicella 1989 Completed [facility] 00[facility] Varicella 1989 Completed [facility] 00:[facility] Varicella 1989 Completed [facility] 00[facility] Varicella 1989 Completed [facility] 00:[facility] Varicella 1989 Completed [facility] 00[facility] Varicella 1989 Completed [facility] 00[facility] Varicella 1989 Completed [facility] 00:[facility] Varicella 1989 Completed [facility] 00[facility] Varicella 1989 Completed [facility] 00:[facility] Varicella 1989 Completed [facility] 00[facility] Varicella 1989 Completed [facility] 00:[facility] Varicella 1989 Completed [facility] 00[facility] [place] [facility] Varicella 1989 Completed [facility] 00:[facility] Varicella 1989 Completed [facility] 00[facility] Varicella 1989 Completed [facility] 00:[facility] Varicella 1989 Completed [facility] 00[facility] Varicella 1989 Completed [facility] 00:[facility] Varicella 1989 Completed [facility] 00:[facility] Varicella 1989 Completed [facility] 00:[facility] Varicella 1989 Completed [facility] 00:[facility] Varicella 1989 Completed [facility] 00[facility] [place] [facility] Varicella 1989 Completed [facility] 00:[facility] [place] [facility] Varicella 1989 Completed [facility] 00[facility] [place] [facility] Varicella 1989 Completed [facility] 00:[facility] Varicella 1989 Completed [facility] 00[facility] Varicella 1989 Completed [facility] 00:[facility] Varicella 1989 Completed [facility] 00[facility] Varicella 1989 Completed [facility] 00:[facility] Varicella 1989 Completed [facility] 00:[facility] Varicella 1989 Completed [facility] 00[facility] Varicella 1989 Completed [facility] 00:[facility] Varicella 1989 Completed [facility] 00:[facility] Varicella 1989 Completed [facility] 00:[facility] Varicella 1989 Completed [facility] 00:[facility] Varicella 1989 Completed [facility] 00:[facility] Varicella 1989 Completed [facility] 00[facility] Varicella 1989 Completed [facility] 00:[facility] Varicella 1989 Completed [facility] 00[facility] Varicella 1989 Completed [facility] 00:[facility] Varicella 1989 Completed [facility] 00[facility] Varicella 1989 Completed [facility] 00:[facility] Varicella 1989 Completed [facility] 00:[facility] Varicella 1989 Completed [facility] 00[facility] Varicella 1989 Completed [facility] 00:[facility] Varicella 1989 Completed [facility] 00:[facility] Varicella 1989 Completed [facility] 00[facility] Varicella 1989 Completed [facility] 00:[facility] [place] [facility] Varicella 1989 Completed [facility] 00[facility] [place] [facility] Varicella 1989 Completed [facility] 00:[facility] Varicella 1989 Completed [facility] 00:[facility] [place] [facility] Varicella 1989 Completed [facility] 00:[facility] Varicella 1989 Completed [facility] 00:[facility] Varicella 1989 Completed [facility] 00:00[facility] Varicella 1989 Completed [facility] 00:00[facility] Varicella 1989 Completed [facility] 00[facility]00[facility] Varicella 1989 Completed [facility] 00[facility]00[facility] Varicella 1989 Completed [facility] 00:[facility]ella 1989 [facility] 1989 Completed [facility] 00[facility]00:00 [facility] Medicine [facility] 1989 [facility] Varicella 1989 Completed [facility] 00:00:00 of Medicine Varicella 1989 Completed [facility] 00:00:00 of Medicine Varicella 1989 Completed [facility] 00:00:00 of Medicine Vital Signs Vital Name Observation Time Observation Value Comments Source Systolic blood 2023-01-12 16:10:00 100 mm[Hg] Univer [facility]ity of pressure [facility] Diastolic blood 2023-01-12 16:10:00 64 mm[Hg] Unive rsity of [facility] Heart rate 2023-01-12 16:10:00 68 /min [facility] Body temperature 2023-01-12 16:10:00 36.56 Sheyla [facility] Respiratory rate 2023-01-12 16:10:00 20 /min [facility] Body height 2023-01-12 16:10:00 157.5 cm [facility] Body weight 2023-01-12 16:10:00 120.112 kg [facility] BMI 2023-01-12 16:10:00 48.43 kg/m2 [facility] Oxygen saturation in 2023-01-12 16:10:00 99 /min [facility] Arterial blood by [facility] Pulse oximetry Branch Systolic blood 2023-01-08 22:58:19 117 mm[Hg] Univer sity of pressure [facility] Diastolic blood 2023-01-08 22:58:19 72 mm[Hg] Unive rsity of pressure [facility] Heart rate 2023-01-08 22:58:19 84 /min [facility] Body temperature 2023-01-08 22:58:19 36.67 Sheyla [facility] Respiratory rate 2023-01-08 22:58:19 16 /min [facility] Oxygen saturation in 2023-01-08 22:58:19 98 /min [facility] Arterial blood by [facility] Pulse oximetry Branch Body height 2023-01-08 22:35:00 157.5 cm [facility] Body weight 2023-01-08 22:35:00 112.492 kg [facility] BMI 2023-01-08 22:35:00 45.36 kg/m2 [facility] Systolic blood 2023-01-07 16:15:00 152 mm[Hg] Univer [facility]ity of pressure [facility] Diastolic blood 2023-01-07 16:15:00 66 mm[Hg] Unive rsity of pressure [facility] Heart rate 2023-01-07 16:15:00 79 /min [facility] Respiratory rate 2023-01-07 16:15:00 17 /min [facility] Oxygen saturation in 2023-01-07 16:15:00 97 /min [facility] Arterial blood by [facility] stan Pulse oximetry Branch Body temperature 2023-01-07 15:30:00 36.39 Sheyla [facility] Body height 2023-01-07 12:10:00 157.5 cm [facility] Body weight 2023-01-07 12:10:00 112.492 kg [facility] BMI 2023-01-07 12:10:00 45.36 kg/m2 [facility] Systolic blood 2023-01-07 16:15:00 152 mm[Hg] [facility] pressure [facility] Diastolic blood 2023-01-07 16:15:00 66 mm[Hg] Unive rsity of pressure [facility] Heart rate 2023-01-07 16:15:00 79 /min [facility] Respiratory rate 2023-01-07 16:15:00 17 /min [facility] Oxygen saturation in 2023-01-07 16:15:00 97 /min [facility] Arterial blood by [facility] Pulse oxim[facility] Body temperature 2023-01-07 15:30:00 36.39 Sheyla [facility] Body height 2023-01-07 12:10:00 157.5 cm [facility] Body weight 2023-01-07 12:10:00 112.492 kg [facility] BMI 2023-01-07 12:10:00 45.36 kg/m2 [facility] Systolic blood 2022-12-30 05:00:00 130 mm[Hg] Univer [facility]ity of pressure [facility] Diastolic blood 2022-12-30 05:00:00 69 mm[Hg] Unive rsity of pressure [facility] Heart rate 2022-12-30 05:00:00 60 /min [facility] Respiratory rate 2022-12-30 05:00:00 18 /min [facility] Oxygen saturation in 2022-12-30 05:00:00 98 /min [facility] Arterial blood by [facility] stan Pulse oximetry Branch Body temperature 2022-12-30 01:16:00 36.67 Sheyla [facility] Body weight 2022-12-30 01:16:00 109.77 kg [facility] BMI 2022-12-30 01:16:00 44.26 kg/m2 [facility] Body temperature 2022-12-20 21:07:00 36.22 Sheyla [facility] Body weight 2022-12-20 21:07:00 109.77 kg [facility] BMI 2022-12-20 21:07:00 44.26 kg/m2 [facility] Body temperature 2022-12-16 17:18:00 36.5 Sheyla [facility] Body height 2022-12-16 17:18:00 157.5 cm [facility] Body weight 2022-12-16 17:18:00 114.851 kg [facility] BMI 2022-12-16 17:18:00 46.31 kg/m2 [facility] Body temperature 2022-12-02 22:15:00 36.06 Sheyla [facility] Body height 2022-12-02 22:15:00 157.5 cm [facility] Body weight 2022-12-02 22:15:00 111.449 kg [facility] BMI 2022-12-02 22:15:00 44.94 kg/m2 [facility] Systolic blood 2022-12-01 21:24:00 123 mm[Hg] Univer sity of pressure [facility] Diastolic blood 2022-12-01 21:24:00 81 mm[Hg] Unive rsity of pressure [facility] Heart rate 2022-12-01 21:24:00 70 /min [facility] Body temperature 2022-12-01 21:24:00 36.72 Sheyla [facility] Respiratory rate 2022-12-01 21:24:00 18 /min Univ [facility] Body height 2022-12-01 21:24:00 157.5 cm [facility] Body weight 2022-12-01 21:24:00 114.125 kg [facility] BMI 2022-12-01 21:24:00 46.02 kg/m2 [facility] Oxygen saturation in 2022-12-01 21:24:00 98 /min University Arterial blood by [facility] Pulse oximetry Branch Body weight 2022-12-01 19:07:00 116.121 kg [facility] BMI 2022-12-01 19:07:00 46.82 kg/m2 [facility] Systolic blood 2022-12-01 16:10:00 109 mm[Hg] Univer [facility]ity of pressure [facility] Diastolic blood 2022-12-01 16:10:00 61 mm[Hg] Unive rsity of pressure [facility] Heart rate 2022-12-01 16:10:00 70 /min [facility] Respiratory rate 2022-12-01 16:10:00 16 /min Univ ersity of [facility] Body height 2022-12-01 16:10:00 157.5 cm [facility] Body weight 2022-12-01 16:10:00 116.121 kg [facility] BMI 2022-12-01 16:10:00 46.82 kg/m2 [facility] Oxygen saturation in 2022-12-01 16:10:00 98 /min [facility] Arterial blood by [facility] Pulse oximetry Branch Systolic blood 2022-11-23 20:47:00 115 mm[Hg] Univer sity of pressure [facility] Diastolic blood 2022-11-23 20:47:00 69 mm[Hg] Unive rsity of pressure [facility] Heart rate 2022-11-23 20:47:00 67 /min [facility] Body temperature 2022-11-23 20:47:00 36.72 Sheyla [facility] Respiratory rate 2022-11-23 20:47:00 18 /min Univ [facility] Body height 2022-11-23 20:47:00 157.5 cm [facility] Body weight 2022-11-23 20:47:00 115.667 kg [facility] BMI 2022-11-23 20:47:00 46.64 kg/m2 [facility] Oxygen saturation in 2022-11-23 20:47:00 95 /min [facility] Arterial blood by [facility] Pulse oximetry Branch Systolic blood 2022-11-10 22:06:00 127 mm[Hg] Univer sity of pressure [facility] Diastolic blood 2022-11-10 22:06:00 79 mm[Hg] Unive rsity of pressure [facility] Heart rate 2022-11-10 22:06:00 66 /min [facility] Body temperature 2022-11-10 22:06:00 37.28 Sheyla [facility] Respiratory rate 2022-11-10 22:06:00 20 /min Univ [facility] Body height 2022-11-10 22:06:00 157.5 cm [facility] Body weight 2022-11-10 22:06:00 121.11 kg [facility] BMI 2022-11-10 22:06:00 48.83 kg/m2 [facility] Oxygen saturation in 2022-11-10 22:06:00 98 /min [facility] Arterial blood by [facility] Pulse oximetry Branch Systolic blood 2022-11-02 20:22:00 114 mm[Hg] [facility] pressure Medicine Diastolic blood 2022-11-02 20:22:00 76 mm[Hg] [facility] Medicine Heart rate 2022-11-02 20:22:00 81 /min [facility] 2022-11-02 20:22:00 157.5 cm [facility] Body weight 2022-11-02 20:22:00 116.212 kg [facility] BMI 2022-11-02 20:22:00 46.86 kg/m2 [facility] Systolic blood 2022-11-01 15:47:00 103 mm[Hg] Univer [facility]ity of [facility] Diastolic blood 2022-11-01 15:47:00 68 mm[Hg] Unive rsity of pressure [facility] Heart rate 2022-11-01 15:47:00 65 /min [facility] Body temperature 2022-11-01 15:47:00 36.89 Sheyla [facility] ers[facility] of [facility] Respiratory rate 2022-11-01 15:47:00 16 /min [facility] Body height 2022-11-01 15:47:00 157.5 cm [facility] Body weight 2022-11-01 15:47:00 117.028 kg [facility] BMI 2022-11-01 15:47:00 47.19 kg/m2 [facility] Oxygen saturation in 2022-11-01 15:47:00 96 /min [facility] of Arterial blood by [facility] Pulse oximetry Branch Body temperature 2022-10-27 15:54:00 35.94 Sheyla [facility] Body height 2022-10-27 15:54:00 157.5 cm [facility] Body weight 2022-10-27 15:54:00 117.3 kg [facility] BMI 2022-10-27 15:54:00 47.30 kg/m2 [facility] Systolic blood 2022-10-26 20:42:00 122 mm[Hg] Univer sity of pressure [facility] Diastolic blood 2022-10-26 20:42:00 73 mm[Hg] Unive rsity of pressure [facility] Heart rate 2022-10-26 20:42:00 72 /min [facility] Body temperature 2022-10-26 20:42:00 37 Sheyla [facility] Respiratory rate 2022-10-26 20:42:00 18 /min [facility] Body height 2022-10-26 20:42:00 157.5 cm [facility] Body weight 2022-10-26 20:42:00 114.306 kg [facility] BMI 2022-10-26 20:42:00 46.09 kg/m2 [facility] Oxygen saturation in 2022-10-26 20:42:00 98 /min [facility] Arterial blood by [facility] Pulse oximetry Branch Systolic blood 2022-10-24 21:51:00 163 mm[Hg] Univer sity of pressure [facility] Diastolic blood 2022-10-24 21:51:00 87 mm[Hg] Unive rsity of pressure [facility] Heart rate 2022-10-24 21:51:00 75 /min [facility] Body temperature 2022-10-24 21:51:00 36.44 Sheyla [facility] Respiratory rate 2022-10-24 21:51:00 20 /min [facility] Body weight 2022-10-24 21:51:00 114.306 kg [facility] BMI 2022-10-24 21:51:00 46.09 kg/m2 [facility] Oxygen saturation in 2022-10-24 21:51:00 96 /min [facility] Arterial blood by [facility] stan Pulse oximetry Branch Heart rate 2022-10-20 16:46:00 75 /min [facility] Body temperature 2022-10-20 16:46:00 36.11 Sheyla [facility] Respiratory rate 2022-10-20 16:46:00 18 /min [facility] Body height 2022-10-20 16:46:00 157.5 cm [facility] Body weight 2022-10-20 16:46:00 117.028 kg [facility] BMI 2022-10-20 16:46:00 47.19 kg/m2 [facility] Oxygen saturation in 2022-10-20 16:46:00 98 /min [facility] Systolic blood 2022-09-30 22:26:00 132 mm[Hg] Univer [facility]ity of pressure [facility] Diastolic blood 2022-09-30 22:26:00 79 mm[Hg] Unive rsity of pressure [facility] Heart rate 2022-09-30 22:26:00 59 /min [facility] Body temperature 2022-09-30 22:26:00 36.78 Sheyla [facility] Respiratory rate 2022-09-30 22:26:00 18 /min Univ [facility] Body height 2022-09-30 22:26:00 157.5 cm [facility] Body weight 2022-09-30 22:26:00 117.073 kg [facility] BMI 2022-09-30 22:26:00 47.21 kg/m2 [facility] Oxygen saturation in 2022-09-30 22:26:00 99 /min [facility] by [facility] Systolic blood 2022-09-30 08:27:00 117 mm[Hg] Univer sity of pressure [facility] Diastolic blood 2022-09-30 08:27:00 60 mm[Hg] Unive rsity of pressure [facility] Heart rate 2022-09-30 08:27:00 67 /min [facility] Respiratory rate 2022-09-30 08:27:00 18 /min [facility] Oxygen saturation in 2022-09-30 08:27:00 98 /min [facility] by [facility] Body temperature 2022-09-30 06:27:00 36.5 Sheyla [facility] Body weight 2022-09-30 06:27:00 114.306 kg [facility] BMI 2022-09-30 06:27:00 46.09 kg/m2 [facility] Systolic blood 2022-09-28 00:41:00 127 mm[Hg] Univer sity of pressure [facility] Diastolic blood 2022-09-28 00:41:00 80 mm[Hg] Unive rsity of pressure [facility] Heart rate 2022-09-28 00:41:00 63 /min [facility] Body temperature 2022-09-28 00:41:00 36.94 Sheyla [facility] Respiratory rate 2022-09-28 00:41:00 17 /min [facility] Body height 2022-09-28 00:41:00 157.5 cm [facility] Body weight 2022-09-28 00:41:00 113.853 kg [facility] BMI 2022-09-28 00:41:00 45.91 kg/m2 [facility] Oxygen saturation in 2022-09-28 00:41:00 98 /min [facility] Arterial blood by [facility] Pulse oximetry Branch Systolic blood 2022-09-22 16:33:00 126 mm[Hg] [facility] Diastolic blood 2022-09-22 16:33:00 88 mm[Hg] [facility] Heart rate 2022-09-22 16:33:00 79 /min [facility] Body temperature 2022-09-22 16:33:00 36.5 Sheyla [facility] Respiratory rate 2022-09-22 16:33:00 20 /min [facility] Body height 2022-09-22 16:33:00 157.5 cm [facility] Body weight 2022-09-22 16:33:00 113.853 kg [facility] BMI 2022-09-22 16:33:00 45.91 kg/m2 [facility] Oxygen saturation in 2022-09-22 16:33:00 97 /min [facility] Arterial blood by [employer] [facility] Systolic blood 2022-09-17 06:02:00 117 mm[Hg] [facility] Diastolic blood 2022-09-17 06:02:00 73 mm[Hg] [facility] Heart rate 2022-09-17 06:02:00 73 /min [facility] Respiratory rate 2022-09-17 06:02:00 18 /min [facility] Oxygen saturation in 2022-09-17 06:02:00 99 /min [facility] Arterial blood by [facility] Pulse oximetry Branch Body temperature 2022-09-17 03:45:00 37 Sheyla [facility] Body weight 2022-09-17 03:45:00 113.853 kg [facility] BMI 2022-09-17 03:45:00 45.91 kg/m2 [facility] BP Diastolic 2022-09-17 00:00:00 76 mm[Hg] [facility] Height 2022-09-17 00:00:00 62 [in_i] [facility] BMI (Body Mass 2022-09-17 00:00:00 44.8 kg/m2 [facility] BP Systolic 2022-09-17 00:00:00 124 mm[Hg] [facility] Body Weight 2022-09-17 00:00:00 245 [lb_av] [facility] Body temperature 2022-09-08 21:16:00 36.33 Sheyla [facility] Body height 2022-09-08 21:16:00 157.5 cm [facility] Body weight 2022-09-08 21:16:00 114.261 kg [facility] BMI 2022-09-08 21:16:00 46.07 kg/m2 [facility] Systolic blood 2022-09-07 06:30:00 110 mm[Hg] [facility] Diastolic blood 2022-09-07 06:30:00 56 mm[Hg] [facility] Heart rate 2022-09-07 06:30:00 66 /min [facility] Body temperature 2022-09-07 06:30:00 36.78 Sheyla [facility] Respiratory rate 2022-09-07 06:30:00 19 /min [facility] Oxygen saturation in 2022-09-07 06:30:00 97 /min [facility] Arterial blood by [facility] Pulse oximetry Branch Body height 2022-09-07 01:42:00 157.5 cm [facility] Body weight 2022-09-07 01:42:00 114.034 kg [facility] BMI 2022-09-07 01:42:00 45.98 kg/m2 [facility] Systolic blood 2022-09-02 20:39:00 116 mm[Hg] [facility] Diastolic blood 2022-09-02 20:39:00 67 mm[Hg] [facility] Heart rate 2022-09-02 20:39:00 71 /min [facility] Body temperature 2022-09-02 20:39:00 36.44 Sheyla [facility] Body height 2022-09-02 20:39:00 157.5 cm [facility] Body weight 2022-09-02 20:39:00 115.622 kg [facility] BMI 2022-09-02 20:39:00 46.62 kg/m2 [facility] Oxygen saturation in 2022-09-02 20:39:00 98 /min [facility] Arterial blood by [facility] Pulse oximetry Branch Systolic blood 2022-08-26 20:13:00 117 mm[Hg] [facility] Diastolic blood 2022-08-26 20:13:00 77 mm[Hg] [facility] Heart rate 2022-08-26 20:13:00 60 /min [facility] Body temperature 2022-08-26 20:13:00 36.22 Sheyla [facility] Respiratory rate 2022-08-26 20:13:00 18 /min [facility] Body height 2022-08-26 20:13:00 157.5 cm [facility] Body weight 2022-08-26 20:13:00 114.397 kg [facility] BMI 2022-08-26 20:13:00 46.13 kg/m2 [facility] Oxygen saturation in 2022-08-26 20:13:00 98 /min r/a [facility] Arterial blood by [facility] Pulse oximetry Branch Body weight 2022-08-25 15:34:00 114.76 kg [facility] BMI 2022-08-25 15:34:00 46.27 kg/m2 [facility] Body temperature 2022-08-02 15:06:00 36.11 Sheyla [facility] Body height 2022-08-02 15:06:00 157.5 cm [facility] Body weight 2022-08-02 15:06:00 114.76 kg [facility] BMI 2022-08-02 15:06:00 46.27 kg/m2 [facility] Body temperature 2022-07-29 21:50:00 36.33 Sheyla [facility] Body height 2022-07-29 21:50:00 157.5 cm [facility] Body weight 2022-07-29 21:50:00 112.401 kg [facility] BMI 2022-07-29 21:50:00 45.32 kg/m2 [facility] Systolic blood 2022-07-27 19:18:00 126 mm[Hg] [facility] pressure Medicine Diastolic blood 2022-07-27 19:18:00 72 mm[Hg] [facility] pressure Medicine Heart rate 2022-07-27 19:18:00 73 /min [facility] Respiratory rate 2022-07-27 19:18:00 21 /min [facility] Body height 2022-07-27 19:18:00 157.5 cm [facility] Body weight 2022-07-27 19:18:00 114.306 kg [facility] BMI 2022-07-27 19:18:00 46.09 kg/m2 [facility] BP Diastolic 2022-06-17 00:00:00 74 mm[Hg] [facility] Height 2022-06-17 00:00:00 62 [in_i] [facility] BMI (Body Mass 2022-06-17 00:00:00 45.5 kg/m2 [facility] BP Systolic 2022-06-17 00:00:00 122 mm[Hg] [facility] Body Weight 2022-06-17 00:00:00 249 [lb_av] [facility] Systolic blood 2022-01-25 19:39:00 114 mm[Hg] [facility] of pressure Medicine Diastolic blood 2022-01-25 19:39:00 80 mm[Hg] [facility] of pressure Medicine Heart rate 2022-01-25 19:39:00 85 /min [facility] Body height 2022-01-25 19:39:00 157.5 cm [facility] Body weight 2022-01-25 19:39:00 117.482 kg [facility] BMI 2022-01-25 19:39:00 47.37 kg/m2 [facility] Systolic blood 2021-10-26 20:45:00 122 mm[Hg] [facility] of pressure Medicine Diastolic blood 2021-10-26 20:45:00 77 mm[Hg] [facility] pressure Medicine Heart rate 2021-10-26 20:45:00 90 /min [facility] Body height 2021-10-26 20:45:00 157.5 cm [facility] Body weight 2021-10-26 20:45:00 117.482 kg [facility] BMI 2021-10-26 20:45:00 47.37 kg/m2 [facility] Systolic blood 2021-07-29 20:05:00 108 mm[Hg] [facility] pressure Medicine Diastolic blood 2021-07-29 20:05:00 73 mm[Hg] [facility] of pressure Medicine Heart rate 2021-07-29 20:05:00 70 /min [facility] Body height 2021-07-29 20:05:00 157.5 cm [facility] Body weight 2021-07-29 20:05:00 112.492 kg [facility] BMI 2021-07-29 20:05:00 45.36 kg/m2 [facility] Systolic blood 2021-04-29 19:12:00 132 mm[Hg] [facility] of pressure Medicine Diastolic blood 2021-04-29 19:12:00 85 mm[Hg] [facility] of pressure Medicine Heart rate 2021-04-29 19:12:00 93 /min [facility] Body height 2021-04-29 19:12:00 157.5 cm [facility] Body weight 2021-04-29 19:12:00 112.492 kg [facility] BMI 2021-04-29 19:12:00 45.36 kg/m2 [facility] Systolic blood 2020-10-01 21:45:00 118 mm[Hg] [facility] of pressure Medicine Diastolic blood 2020-10-01 21:45:00 37 mm[Hg] [facility] of pressure Medicine Heart rate 2020-10-01 21:45:00 96 /min [facility] Body height 2020-10-01 21:45:00 157.5 cm [facility] Body weight 2020-10-01 21:45:00 112.492 kg [facility] BMI 2020-10-01 21:45:00 45.36 kg/m2 [facility] Systolic blood 2020-07-02 20:11:00 117 mm[Hg] [facility] of pressure Medicine Diastolic blood 2020-07-02 20:11:00 80 mm[Hg] [facility] of pressure Medicine Heart rate 2020-07-02 20:11:00 78 /min [facility] Body height 2020-07-02 20:11:00 157.5 cm [facility] Body weight 2020-07-02 20:11:00 112.492 kg [facility] BMI 2020-07-02 20:11:00 45.36 kg/m2 [facility] Systolic blood 2020-04-03 18:21:00 131 mm[Hg] [facility] Diastolic blood 2020-04-03 18:21:00 87 mm[Hg] [facility] of pressure Medicine Heart rate 2020-04-03 18:21:00 103 /min [facility] Body height 2020-04-03 18:21:00 154.9 cm [facility] Body weight 2020-04-03 18:21:00 116.574 kg [facility] BMI 2020-04-03 18:21:00 48.56 kg/m2 [facility] Systolic blood 2020-01-02 19:21:00 133 mm[Hg] [facility] of pressure Medicine Diastolic blood 2020-01-02 19:21:00 78 mm[Hg] [facility] of pressure Medicine Heart rate 2020-01-02 19:21:00 101 /min [facility] Body height 2020-01-02 19:21:00 154.9 cm [facility] Medicine Body weight 2020-01-02 19:21:00 116.574 kg [facility] BMI 2020-01-02 19:21:00 48.56 kg/m2 [facility] Systolic blood 2019-06-25 19:36:00 113 mm[Hg] [facility] of pressure Medicine Diastolic blood 2019-06-25 19:36:00 78 mm[Hg] [facility] of pressure Medicine Heart rate 2019-06-25 19:36:00 76 /min [facility] Body height 2019-06-25 19:36:00 154.9 cm [facility] Body weight 2019-06-25 19:36:00 107.502 kg [facility] BMI 2019-06-25 19:36:00 44.78 kg/m2 [facility] Procedures Procedure Date / Time Performing Clinician Source Performed ASSIGNMENT OF BENEFITS 2023-01-12 15:58:43 Doctor Unassigned, [facility] CONSENT/REFUSAL FOR 2023-01-08 22:28:40 Doctor Unassigned, [facility] DIAGNOSIS AND TREATMENT [facility] [place] TIME OR 2023-01-07 15:28:42 Earnestine Conde [facility] (NON-REPORTABLE) Medical Branch [place] TIME OR 2023-01-07 15:28:42 Earnestine Conde [facility] (NON-REPORTABLE) Medical Branch WRIST ARTHROSCOPY 2023-01-07 12:59:00 Wu Marcelino [facility] POSTERIOR INTEROSSEOUS 2023-01-07 12:59:00 [facility] NERVE NEURECTOMY [facility] POCT GLUCOSE (AUTOMATED) 2023-01-07 12:35:00 Wu Marcelino [facility] POCT GLUCOSE (AUTOMATED) 2023-01-07 12:35:00 Wu Marcelino [facility] CONSENT/REFUSAL FOR 2023-01-07 11:53:37 [facility] DIAGNOSIS AND TREATMENT [facility] CONSENT/REFUSAL FOR 2023-01-07 11:53:37 Doctor Hoang [facility] DIAGNOSIS AND TREATMENT [facility] ASSIGNMENT OF BENEFITS 2023-01-07 11:52:19 [facility] ASSIGNMENT OF BENEFITS 2023-01-07 11:52:19 [facility] DAY SURGERY - VICTORY 2023-01-07 06:01:00 Doctor Hoang [facility] [place] [facility] POCT TEST 2023-01-07 00:00:00 Verónica Nielsen [facility] POCT TEST 2023-01-07 00:00:00 Verónica Nielsen [facility] CBC WITH DIFF 2022-12-30 03:17:00 [place] [facility] LIPASE 2022-12-30 02:16:00 [place] [facility] TEST, SERUM 2022-12-30 02:16:00 [place] [facility] TROPONIN I 2022-12-30 02:16:00 [place] [facility] COMP. METABOLIC PANEL 2022-12-30 02:16:00 [place] [facility] ([id number]) Medical Branch D-DIMER 2022-12-30 02:16:00 [place] [facility] URINALYSIS 2022-12-30 02:16:00 [place] [facility] CONSENT/REFUSAL FOR 2022-12-30 00:56:21 Doctor Unassyuri [facility] DIAGNOSIS [facility] TREAT[facility] MEDICATION CORRESPONDENCE 2022-12-20 06:01:00 Doctor Unassyuri, [facility] NM MYOCARDIUM PERFUSION 2022-12-09 17:22:00 Adriana [facility] STRESS ONLY [facility] NM MYOCARDIUM PERFUSION 2022-12-09 17:22:[facility] NM MYOCARDIUM PERFUSION 2022-12-09 17:22:00 Adriana [facility] STRESS ONLY [facility] NM MYOCARDIUM PERFUSION 2022-12-09 17:22:00 Adriana [facility] STRESS [facility] XR FOOT 3+ VW RIGHT 2022-12-02 21:52:00 Nik Charles [facility] MEDICATION CORRESPONDENCE 2022-12-01 06:01:00 Doctor Unadot, [facility] Name [facility] DME/SUPPLY JUSTIFICATION 2022-11-25 06:01:00 Doctor Unassigned, [facility] Name [facility] MR HAND LEFT W WO 2022-11-17 21:24:11 Rolo Dhillon [facility] POCT SARS-COV-2 ANTIGEN 2022-11-10 22:40:00 Jimbo Martinez [facility] ([facility] NOW) [facility] POCT MOLECULAR FLU 2022-11-10 22:10:00 Unknown, Attending [facility] POCT MOLECULAR STREP 2022-11-10 22:07:00 Unknown, Attending [facility] DRUG MONITOR PROFILE 1 2022-11-02 21:29:00 Karel Felix [facility]/SCREEN/RFL, URINE [facility] DRUG MONITOR PROFILE 1 2022-11-02 15:29:00 [facility]/SCREEN/RFL, URINE Medicine PROVIDED MEDICATIONS 2022-11-02 15:29:00 [facility] HT SPECIMEN VALIDITY 2022-11-02 15:29:00 [facility] XR CHEST 2 VW 2022-10-25 00:08:00 Damaris Burns [facility] XR CERVICAL SPINE 2 VW 2022-10-25 00:08:00 Damaris Burns [facility] XR ANKLE 3+ VW RIGHT 2022-10-25 00:08:00 Damaris Burns [facility] XR TIBIA FIBULA 2 VW 2022-10-25 00:08:00 Basil Damaris [facility] RIGHT [facility] XR WRIST 3+ VW LEFT 2022-10-25 00:08:00 Basil Damaris [facility] POCT TEST 2022-10-24 23:38:00 Basil Damaris [facility] CONSENT/REFUSAL FOR 2022-10-24 21:50:27 Doctor Unassyuri, [facility] DIAGNOSIS AND TREATMENT [facility] FLU VACC ([id number]), 6 2022-09-30 22:29:56 Jay Enciso [facility] [place]-62 YRS, .5ML, IM, QUAD Medica l Branch (FLUCELVAX) XR LUMBAR SPINE 2 VW 2022-09-30 07:54:18 Camilo Wyman [facility] POCT TEST 2022-09-30 07:39:00 Camilo Wyman [facility] CONSENT/REFUSAL FOR 2022-09-30 06:27:44 Doctor Unadot, [facility] DIAGNOSIS AND TREATMENT [facility] XR LUMBAR SPINE 2 VW 2022-09-28 01:07:36 Derik Valentine [facility] XR HIPS 2 VW RIGHT 2022-09-28 01:07:36 Derik Valentine [facility] XR CHEST 1 VW 2022-09-17 05:31:00 [place] [facility] LIPASE 2022-09-17 05:08:00 [place] [facility] TROPONIN I 2022-09-17 05:08:00 [place] [facility] CBC WITH DIFF 2022-09-17 05:08:00 [place] [facility] POCT TEST 2022-09-17 04:18:00 [place] [facility] URINALYSIS 2022-09-17 04:16:00 [place] [facility] CONSENT/REFUSAL FOR 2022-09-17 03:43:24 Doctor Unassigned, [facility] DI[facility]NOSIS [facility] TREAT[facility] ABDOMEN PELVIS WO 2022-09-07 05:50:39 Nayana Badillo [facility] POCT TEST 2022-09-07 04:44:00 Nayana Badillo [facility] URINALYSIS 2022-09-07 04:43:00 Nayana Badillo [facility] EXTRA TUBE URINE CULTURE 2022-09-07 04:43:00 Nayana Badillo [facility] CONSENT/REFUSAL FOR 2022-09-07 01:42:56 Doctor Unassigned, [facility] DIAGNOSIS AND TREATMENT [facility] POCT HEMOGLOBIN A1C TEST 2022-08-26 00:00:00 Gallo Mckeon [facility] HDZ VISUAL FIELD - 2022-03-29 20:02:12 [place] - BOTH EYES [facility] OCT, OPTIC NERVE - OU - 2022-03-29 20:02:11 [place] B[facility] EYES [facility] HDZ VISUAL FIELD - 2021-09-01 20:32:23 [place] - BOTH EYES [facility] HDZ VISUAL FIELD - 2021-09-01 20:32:23 [place] - BOTH EYES [facility] OCT, OPTIC NERVE - OU - 2021-09-01 19:54:09 [place] B[facility] EYES [facility] OCT, OPTIC NERVE - OU - 2021-09-01 19:54:09 [place] BOTH EYES [facility] Plan of Care Planned Activity Planned Date Details Comments Source Future Scheduled 2023-01-08 COVID-19 VACCINE (#1) [facility] 08:02:21 [code = COVID-19 Hospital VACCINE (#1)] Future Scheduled 2023-01-08 Screening for [facility] Test 08:02:21 malignant neoplasm of Hospit al cervix (procedure) [code = 406835438] Future Scheduled 2023-01-08 INFLUENZA VACCINE [facility] Test 08:02:21 [code = INFLUENZA Hospital VACCINE] Future Scheduled 2022-11-15 COVID-19 Vaccine (#1) [employer] Test 00:44:17 [code = COVID-19 of Medicine Vaccine (#1)] Future Scheduled 2022-11-15 BMI FOLLOW UP PLAN [employer] Test 00:44:17 [code = BMI FOLLOW UP of Med icine PLAN] Future Scheduled 2022-11-15 Hepatitis C screening [employer] Test 00:44:17 (procedure) [code = of Medic ine 051702481] Future Scheduled 2022-11-15 Human immunodeficiency [employer] Test 00:44:17 virus screening of Medicine (procedure) [code = 458424483] Future Scheduled 2022-11-15 MEDICARE IPPE (WELCOME [employer] Test 00:44:17 TO MEDICARE) [code = of Medi cine MEDICARE IPPE (WELCOME TO MEDICARE)] Future Scheduled 2022-11-15 Screening for [facility] Test 00:44:17 malignant neoplasm of of Med icine cervix (procedure) [code = 050723379] Future Scheduled 2022-11-15 FLU VACCINE > 6 MONTHS [employer] Test 00:44:17 [code = FLU VACCINE > of Med icine 6 MONTHS] Future Scheduled 2022-11-15 TETANUS SHOT (ADULT) [employer] Test 00:44:17 [code = TETANUS SHOT of Medi cine (ADULT)] Diagnostic Test 2022-09-17 HbA1c (hemoglobin [facility] 00:00:00 A1c), blood [code = Practice HbA1c (hemoglobin A1c), blood] Diagnostic Test 2022-09-17 CMP, serum or plasma [facility] 00:00:00 [code = CMP, serum or Practi ce plasma] Diagnostic Test 2022-09-17 microalbumin/creatinin [facility] Pending 00:00:00 e, mass ratio, urine Practic e [code = microalbumin/creatinin e, mass ratio, urine] Future Scheduled 2022-07-27 COVID-19 Vaccine (#1) [employer] Test 15:03:57 [code = COVID-19 of Medicine Vaccine (#1)] Future Scheduled 2022-07-27 BMI FOLLOW UP PLAN [employer] Test 15:03:57 [code = BMI FOLLOW UP of Med icine PLAN] Future Scheduled 2022-07-27 Hepatitis C screening [employer] Test 15:03:57 (procedure) [code = of Medic ine 697410506] Future Scheduled 2022-07-27 Human immunodeficiency [employer] Test 15:03:57 virus screening of Medicine (procedure) [code = 950954278] Future Scheduled 2022-07-27 MEDICARE AWV (Initial) [employer] Test 15:03:57 [code = MEDICARE AWV of Medi cine (Initial)] Future Scheduled 2022-07-27 Screening for [facility] [employer] Test 15:03:57 malignant neoplasm of of Med icine cervix (procedure) [code = 349410123] Future Scheduled 2022-07-27 FLU VACCINE > 6 MONTHS [employer] Test 15:03:57 [code = FLU VACCINE > of Med icine 6 MONTHS] Future Scheduled 2022-07-27 TETANUS SHOT (ADULT) [employer] Test 15:03:57 [code = TETANUS SHOT of Medi cine (ADULT)] Future Scheduled 2022-07-27 MRI CERVICAL SPINE WO 1 Occurrences [employer] Test 14:59:32 CONTRAST [code = starting of Medicine 72850-5] 07/27/2022 until 07/27/2023 Future Scheduled 2022-01-28 COVID-19 Vaccine (1) [employer] Test 21:09:49 [code = COVID-19 of Medicine Vaccine (1)] Future Scheduled 2022-01-28 BMI FOLLOW UP PLAN [employer] Test 21:09:49 [code = BMI FOLLOW UP of Med icine PLAN] Future Scheduled 2022-01-28 Hepatitis C screening [employer] Test 21:09:49 (procedure) [code = of Medic ine 749965126] Future Scheduled 2022-01-28 Human immunodeficiency [employer] Test 21:09:49 virus screening of Medicine (procedure) [code = 652755375] Future Scheduled 2022-01-28 MEDICARE AWV (Initial) [employer] Test 21:09:49 [code = MEDICARE AWV of Medi cine (Initial)] Future Scheduled 2022-01-28 FLU VACCINE > 6 MONTHS [employer] Test 21:09:49 [code = FLU VACCINE > of Med icine 6 MONTHS] Future Scheduled 2022-01-28 Screening for [facility] Test 21:09:49 malignant neoplasm of of Med icine cervix (procedure) [code = 878674641] Future Scheduled 2022-01-28 TETANUS SHOT (ADULT) [employer] Test 21:09:49 [code = TETANUS SHOT of Medi cine (ADULT)] Future Scheduled 2021-12-11 COVID-19 VACCINE (1) [facility] 14:23:03 [code = COVID-19 Hospital VACCINE (1)] Future Scheduled 2021-12-11 Hepatitis C screening [facility] 14:23:03 (procedure) [code = Hospital 060225997] Future Scheduled 2021-12-11 Screening for [employer] Test 14:23:03 malignant neoplasm of Hospit al cervix (procedure) [code = 229850427] Future Scheduled 2021-12-11 INFLUENZA VACCINE [facility] Test 14:23:03 [code = INFLUENZA Hospital VACCINE] Future Scheduled 2021-10-26 DRUG SCREEN Ordered: [facility] [employer] Test 15:47:06 COMPREHENSIVE URINE 10/26/2021 of Medic ine [code = 57493] Future Scheduled 2021-10-26 COVID-19 Vaccine (1) [employer] Test 15:08:27 [code = COVID-19 of Medicine Vaccine (1)] Future Scheduled 2021-10-26 BMI FOLLOW UP PLAN [employer] Test 15:08:27 [code = BMI FOLLOW UP of Med icine PLAN] Future Scheduled 2021-10-26 Hepatitis C screening [employer] Test 15:08:27 (procedure) [code = of Medic ine 385577978] Future Scheduled 2021-10-26 Human immunodeficiency [employer] Test 15:08:27 virus screening of Medicine (procedure) [code = 648172330] Future Scheduled 2021-10-26 MEDICARE AWV (Initial) [employer] Test 15:08:27 [code = MEDICARE AWV of Medi cine (Initial)] Future Scheduled 2021-10-26 FLU VACCINE > 6 MONTHS [employer] 15:08:27 [code = FLU VACCINE > of Med icine 6 MONTHS] Future Scheduled 2021-10-26 Screening for Joser Af[facility] [employer] 15:08:27 malignant neoplasm of of Med icine cervix (procedure) [code = 372539003] Future Scheduled 2021-10-26 TETANUS SHOT (ADULT) [employer] 15:08:27 [code = TETANUS SHOT of Medi cine (ADULT)] Future Scheduled 2021-07-30 COVID-19 Vaccine (1) [employer] 16:23:22 [code = COVID-19 of Medicine Vaccine (1)] Future Scheduled 2021-07-30 BMI FOLLOW UP PLAN [employer] 16:23:22 [code = BMI FOLLOW UP of Med icine PLAN] Future Scheduled 2021-07-30 Hepatitis C screening [facility] Test 16:23:22 (procedure) [code = of Medic ine [id number]] Future Scheduled 2021-07-30 Human immunodeficiency [employer] 16:23:22 virus screening of Medicine (procedure) [code = 123071841] Future Scheduled 2021-07-30 MEDICARE AWV (Initial) [employer] 16:23:22 [code = MEDICARE AWV of Medi cine (Initial)] Future Scheduled 2021-07-30 FLU VACCINE > 6 MONTHS [employer] 16:23:22 [code = FLU VACCINE > of Med icine 6 MONTHS] Future Scheduled 2021-07-30 Screening for Jose [employer] 16:23:22 malignant neoplasm of of Med icine cervix (procedure) [code = 962688521] Future Scheduled 2021-07-30 TETANUS SHOT (ADULT) [employer] 16:23:22 [code = TETANUS SHOT of Medi cine (ADULT)] Future Scheduled 2021-07-30 COVID-19 Vaccine (1) [employer] 16:23:22 [code = COVID-19 of Medicine Vaccine (1)] Future Scheduled 2021-07-30 BMI FOLLOW UP PLAN [employer] 16:23:22 [code = BMI FOLLOW UP of Med icine PLAN] Future Scheduled 2021-07-30 Hepatitis C screening [employer] 16:23:22 (procedure) [code = of Medic ine [id number]] Future Scheduled 2021-07-30 Human immunodeficiency [employer] 16:23:22 virus screening of Medicine (procedure) [code = 840327633] Future Scheduled 2021-07-30 MEDICARE AWV (Initial) [employer] 16:23:22 [code = MEDICARE AWV of Medi cine (Initial)] Future Scheduled 2021-07-30 FLU VACCINE > 6 MONTHS [employer] 16:23:22 [code = FLU VACCINE > of Med icine 6 MONTHS] Future Scheduled 2021-07-30 Screening for [facility] [employer] Test 16:23:22 malignant neoplasm of of Med icine cervix (procedure) [code = 297107169] Future Scheduled 2021-07-30 TETANUS SHOT (ADULT) [employer] 16:23:22 [code = TETANUS SHOT of Medi cine (ADULT)] Future Scheduled 2021-04-30 COVID-19 Vaccine (1) [employer] 09:27:45 [code = COVID-19 of Medicine Vaccine (1)] Future Scheduled 2021-04-30 BMI FOLLOW UP PLAN [employer] 09:27:45 [code = BMI FOLLOW UP of Med icine PLAN] Future Scheduled 2021-04-30 Hepatitis C screening [employer] 09:27:45 (procedure) [code = of Medic ine [id number]] Future Scheduled 2021-04-30 Human immunodeficiency [employer] 09:27:45 virus screening of Medicine (procedure) [code = 929655647] Future Scheduled 2021-04-30 MEDICARE AWV (Initial) [employer] 09:27:45 [code = MEDICARE AWV of Medi cine (Initial)] Future Scheduled 2021-04-30 FLU VACCINE > 6 MONTHS [employer] 09:27:45 [code = FLU VACCINE > of Med icine 6 MONTHS] Future Scheduled 2021-04-30 Screening for Jose [facility] [employer] 09:27:45 malignant neoplasm of of Med icine cervix (procedure) [code = 924255490] Future Scheduled 2021-04-30 TETANUS SHOT (ADULT) [employer] 09:27:45 [code = TETANUS SHOT of Medi cine (ADULT)] Future Scheduled 2021-04-29 INTRINSIC FACTOR Ordered: [facility] [employer] [facility] 15:03:13 BLOCKING AB [code = 04/29/2021 of Medic ine 47550] Future Scheduled 2021-04-29 DRUG SCREEN Ordered: [facility] [employer] 15:03:13 COMPREHENSIVE URINE 04/29/2021 of Medic ine [code = 15317] Future Scheduled DRUG SCREEN Ordered: [facility] [employer] COMPREHENSIVE URINE 06/25/2019 of Medic ine [code = 06322] Future Scheduled BMI FOLLOW UP PLAN [employer] [code = BMI FOLLOW UP of Med icine PLAN] Future Scheduled HIV SCREENING [code = [employer] HIV SCREENING] of Medicine Future Scheduled CERVICAL CANCER [facility] [employer] Test SCREENING 3 YEAR of Medicine FOLLOW UP [code = CERVICAL CANCER SCREENING 3 YEAR FOLLOW UP] Future Scheduled FLU VACCINE > 6 MONTHS [employer] [code = FLU VACCINE > of Med icine 6 MONTHS] Future Scheduled TETANUS SHOT (ADULT) [employer] [code = TETANUS SHOT of Medi cine (ADULT)] Future Scheduled BMI FOLLOW UP PLAN [employer] [code = BMI FOLLOW UP of Med icine PLAN] Future Scheduled HIV SCREENING [code = [employer] HIV SCREENING] of Medicine Future Scheduled MEDICARE IPPE (WELCOME [employer] TO MEDICARE) [code = of Medi cine MEDICARE IPPE (WELCOME TO MEDICARE)] Future Scheduled CERVICAL CANCER [facility] [employer] Test SCREENING 3 YEAR of Medicine FOLLOW UP [code = CERVICAL CANCER SCREENING 3 YEAR FOLLOW UP] Future Scheduled TETANUS SHOT (ADULT) [employer] [code = TETANUS SHOT of Medi cine (ADULT)] Future Scheduled BMI FOLLOW UP PLAN [employer] [code = BMI FOLLOW UP of Med icine PLAN] Future Scheduled HIV SCREENING [code = [employer] HIV SCREENING] of Medicine Future Scheduled MEDICARE IPPE (WELCOME [employer] TO MEDICARE) [code = of Medi cine MEDICARE IPPE (WELCOME TO MEDICARE)] Future Scheduled FLU VACCINE > 6 MONTHS [employer] [code = FLU VACCINE > of Med icine 6 MONTHS] Future Scheduled CERVICAL CANCER [facility] [employer] Test SCREENING 3 YEAR of Medicine FOLLOW UP [code = CERVICAL CANCER SCREENING 3 YEAR FOLLOW UP] Future Scheduled TETANUS SHOT (ADULT) [employer] [code = TETANUS SHOT of Medi cine (ADULT)] Future Scheduled DRUG SCREEN Ordered: [facility] [employer] COMPREHENSIVE URINE 07/02/2020 of Medic ine [code = 88789] Future Scheduled BMI FOLLOW UP PLAN [employer] [code = BMI FOLLOW UP of Med icine PLAN] Future Scheduled HIV SCREENING [code = [employer] HIV SCREENING] of Medicine Future Scheduled MEDICARE AWV (Initial) [employer] [code = MEDICARE AWV of Medi cine (Initial)] Future Scheduled FLU VACCINE > 6 MONTHS [employer] [code = FLU VACCINE > of Med icine 6 MONTHS] Future Scheduled CERVICAL CANCER [facility] [employer] Test SCREENING 3 YEAR of Medicine FOLLOW UP [code = CERVICAL CANCER SCREENING 3 YEAR FOLLOW UP] Future Scheduled TETANUS SHOT (ADULT) [employer] [code = TETANUS SHOT of Medi cine (ADULT)] Future Scheduled ZOSTER VACCINE (1 of [employer] 2) [code = ZOSTER of Medicin e VACCINE (1 of 2)] Future Scheduled BMI FOLLOW UP PLAN [employer] [code = BMI FOLLOW UP of Med icine PLAN] Future Scheduled HEPATITIS C SCREENING [employer] [code = HEPATITIS C of Medic ine SCREENING] Future Scheduled HIV SCREENING [code = [employer] HIV SCREENING] of Medicine Future Scheduled MEDICARE AWV (Initial) [employer] [code = MEDICARE AWV of Medi cine (Initial)] Future Scheduled FLU VACCINE > 6 MONTHS [employer] [code = FLU VACCINE > of Med icine 6 MONTHS] Future Scheduled CERVICAL CANCER [facility] [employer] Test SCREENING 3 YEAR of Medicine FOLLOW UP [code = CERVICAL CANCER SCREENING 3 YEAR FOLLOW UP] Future Scheduled TETANUS SHOT (ADULT) [employer] [code = TETANUS SHOT of Medi cine (ADULT)] Instructions [facility] Practice Encounters Start End Encounter Admission Attending Care Care Encounter Source Date/Time Date/Time Type Type Clinicians Facility Department ID 2022-02-12 Outpatient KIERAN ALCARAZ [id number] [place] 14:49:16 [id number] [facility] 2022-02-10 Outpatient KIERAN ALCARAZ [id number] [place] 13:18:13 [id number] [facility] 2021-09-14 Emergency [facility] [id number] Univers 13:56:27 ity of [facility] 2021-09-14 Emergency [facility] [id number] Univers 02:01:50 ity of [facility] 2021-09-12 Emergency [facility] [id number] Univers 10:55:45 ity of [facility] 2021-09-11 Emergency [facility] [id number] Univers 17:13:32 ity of [facility] 2021-09-11 Emergency [facility] [id number] Univers 16:01:59 ity of [facility] 2021-09-11 Emergency [facility] [id number] Univers 08:32:29 ity of [facility] 2021-09-10 Emergency [facility] [id number] Univers 22:09:40 ity of [facility] 2021-09-10 Emergency [facility] [id number] Univers 18:31:05 ity of [facility] 2023-01-19 2023-01-19 Outpatient R ALIS [facility] [id number] Univers 11:40:00 11:40:00 RAGINI ity [facility] 2023-01-13 2023-01-13 Outpatient R ARACELI [facility] [id number] Univers 13:50:00 13:50:00 NIK ity [facility] 2023-01-12 2023-01-12 [facility] 1.2.840.114 [id number] Univers 11:15:00 11:15:00 Visit Anil HEALTH 350.1.13.10 it y [place] [id number] [facility] [address] OFFICE BUILDING 2023-01-12 2023-01-12 Outpatient R ADRIANA [facility] [id number] Univers 11:15:00 10:44:34 ANIL ity [facility] 2023-01-12 2023-01-12 Orders Doctor WU 1.2.840.114 [id number] Univers 00:00:00 00:00:00 Only Unassigned, GILDA 350.1.13.10 ity of [place] [facility] 4.2.7.2.686 Mir as [id number] [place] [address] [address] 2023-01-08 2023-01-08 Emergency X ROYER, [facility] ERT [id number] Univers 16:36:00 17:43:00 VELMA ishmael of [facility] 2023-01-08 2023-01-08 Emergency [facility] 1.2.840.114 [id number] Univers 16:36:00 17:43:00 Velma RINALDI 350.1.13.10 i ty of [facility] 4.2.7.2.686 [facility] [id number] [facility] [address] 2023-01-08 2023-01-08 Nurse WU Carney 1.2.840.114 [id number] Univers 00:00:00 00:00:00 Triage Charleneshreyasromse Reynoso GILDA 350.1.13.10 ity of [facility] 4.2.7.2.[address] [place] [address] [id number] [facility] [address] 2023-01-07 2023-01-07 Outpatient R [facility] SOR [id number] Univers 05:51:00 10:35:00 WU quiñones [facility] 2023-01-07 2023-01-07 [facility] 1.2.840.114 [id number] Univers 05:51:00 10:35:00 Encounter [facility] 350.1.13.10 ity [facility] 4.2.7.2.[address] [place] [phone] ([facility]) 2023-01-07 2023-01-07 Surgery [facility] 1.2.305.612 [id number] Univers 07:40:00 10:18:00 Wu [facility] 350.1.13.10 ity of [facility] 4.2.7.2.[address] [place] [address] AT [phone] Pr hollis PETE 020 [facility] 2022-12-29 2022-12-29 Emergency X [place] [facility] ERT [id number] Univers 19:18:00 23:26:00 [place] o f [facility] 2022-12-29 2022-12-29 Emergency [place] TRAUMA 1.2.840.114 [id number] Univers 19:18:00 23:26:00 [facility] 350.1.13.10 it y of 4.2.7.2.686 [facility] [id number] [facility] [address]14 [address] 2022-12-29 2022-12-29 Telephone [facility] 1.2.840.114 [id number] Univers 00:00:00 00:00:00 Paz POLLOCK 350.1.13.10 ity of [place] [id number] [facility] AND [place]REU [address] [facility] 2022-12-28 2022-12-28 Refill [facility] 1.2.840.114 [id number] Univers 00:00:00 00:00:00 Joseph ZIMMERMAN 350.1.13.10 i ty of [facility] [place]2.[place] [id number] [facility] [address] 2022-12-23 2022-12-23 Telephone [facility] 1.2.773.913 [id number] Univers 00:00:00 00:00:00 Edmund KAPLAN 350.1.13.10 ity of CARE 4.2.7.2.686 [facility] [place] AT [phone] Pr dical VICTORY 072 [facility] 2022-12-20 2022-12-20 Outpatient R CHARI [facility] [id number] Univers 14:50:00 15:49:44 WU quiñones of [facility] 2022-12-20 2022-12-20 Office [facility] 1.2.543.770 [id number] Univers 14:50:00 15:49:44 Visit Wu JOHN 350.1.13.10 it y of C[place] [facility] [phone] Me dical [address] 2022-12-20 2022-12-20 Orders Doctor WU 1.2.840.114 [id number] Univers 00:00:00 00:00:00 Only Unassigned, GILDA 350.1.13.10 ity of [place] [facility] 4.2.7.2.686 Mir as [id number] [facility] [address] 2022-12-17 2022-12-17 Telephone [facility] 1.2.737.489 [id number] Univers 00:00:00 00:00:00 Joseph ZIMMERMAN 350.1.13.10 i ty of [facility] [id number] [address] 2022-12-16 2022-12-16 Office [facility] 1.2.840.114 [id number] Univers 11:00:00 11:15:00 Visit Joseph ZIMMERMAN 350.1.13.10 i ty of [facility] [place] [id number] [address] 2022-12-16 2022-12-16 Outpatient [facility] [id number] Univers 11:00:00 11:00:00 JOSEPH [facility] 2022-12-16 2022-12-16 Telephone [facility] 1.2.297.821 [id number] Univers 00:00:00 00:00:00 Joseph ZIMMERMAN 350.1.13.10 i ty of [facility] [id number] [address] 2022-12-15 2022-12-15 Outpatient R RODOLFO [facility] [id number] Univers 10:30:00 10:30:00 ALFREDO quiñones o f [facility] 2022-12-14 2022-12-14 Outpatient R ALIS [facility] [id number] Univers 10:00:00 10:00:00 RAGINI quiñones [facility] 2022-12-13 2022-12-13 Telephone Romero Miller [facility] 1.2.840.114 [id number] Univers 00:00:00 00:00:00 S HEALTH 350.1.13.10 it y of [place] [phone] Med [address] 2022-12-12 2022-12-12 Rolanda [facility] 1.2.840.114 [id number] Univers 00:00:00 00:00:00 Paz Reynoso MULTISPEC 350.1.13.10 ity of [place] [id number] [facility] AND ABREU [address] [facility] 2022-12-10 2022-12-10 Rolanda [facility] 1.2.840.114 [id number] Univers 00:00:00 00:00:00 Joseph ZIMMERMAN 350.1.13.10 i ty of [facility] [place].2.[place] [id number] [facility] [address] 2022-12-09 2022-12-09 [facility] 1.2.840.114 [id number] Univers 09:09:17 23:59:00 Encounter Anil SPECIALTY 350.1.13.10 ity [place] AT [id number] Pr sanjayshelby FREEMAN [address] [place] [address] 2022-12-09 2022-12-09 [facility] 1.2.840.114 [id number] Univers 09:08:59 09:08:59 Encounter Anil SPECIALTY 350.1.13.10 ity of [place] AT [id number] Pr sanjayshelby BAPTISTELex[employer] [address] [place] [address] 2022-12-09 2022-12-09 [facility] 1.2.840.114 [id number] Univers 09:08:40 09:08:40 Encounter Anil SPECIALTY 350.1.13.10 ity of [place] AT [id number] Pr sanjayshelby FREEMAN [address] [place] [address] 2022-12-09 2022-12-09 Outpatient [facility] [id number] Univers 09:08:12 09:07:00 ANIL ity of [facility] 2022-12-09 2022-12-09 [facility] 1.2.840.114 [id number] Univers 09:00:00 09:07:00 Encounter Anil SPECIALTY 350.1.13.10 it[place] [id number] Pr sanjayshelby FREEMAN [address] [place] [address] 2022-12-07 2022-12-07 [facility] 1.2.483.562 [id number] Univers 00:00:00 00:00:00 Edmund SPECIALTY 350.1.13.10 ity of [facility] 4.2.7.2.686 [facility] AT [phone] Pr hollis Diez2 Jin [facility] 2022-12-06 2022-12-06 Outpatient R GRACE, [facility] [id number] Univers 15:00:00 15:00:00 [facility] 2022-12-06 2022-12-06 Outpatient R GRACE, [facility] [id number] Univers 15:00:00 15:00:00 [facility] 2022-12-06 2022-12-06 Outpatient R GRACE [facility] [id number] Univers 15:00:00 15:00:00 [facility] 2022-12-06 2022-12-06 Outpatient R GRACE [facility] [id number] Univers 15:00:00 15:00:00 [facility] 2022-12-06 2022-12-06 [facility] [id number] Univers 15:00:00 15:00:00 [facility] 2022-12-06 2022-12-06 Outpatient R GRACE [facility] [id number] Univers 15:00:00 15:00:00 [facility] 2022-12-06 2022-12-06 Outpatient R GRACE [facility] [id number] Univers 15:00:00 15:00:00 [facility] 2022-12-06 2022-12-06 Outpatient R GRACE, [facility] [id number] Univers 15:00:00 15:00:00 [facility] 2022-12-06 2022-12-06 Outpatient R GRACE [facility] [id number] Univers 15:00:00 15:00:00 [facility] 2022-12-06 2022-12-06 Outpatient R GRACE [facility] [id number] Univers 14:00:00 14:00:00 [facility] 2022-12-03 2022-12-03 Outpatient R ADRIANA [facility] [id number] Univers 14:00:00 23:59:00 ANIL ity of [facility] 2022-12-03 2022-12-03 [facility] [id number] Univers 11:00:00 11:00:00 ANIL ity of [facility] 2022-12-03 2022-12-03 Telephone Ananya [facility] 1.2.840.114 [id number] Univers 00:00:00 00:00:00 Paz Reynoso MULTISPEC 350.1.13.10 ity of [facility] 4.2.7.2.[place] [id number] [facility] AND ABREU [address] [facility] 2022-12-02 2022-12-02 Outpatient R [facility]OC[facility]SIETRIN[facility] [id number] Univers 15:36:32 23:59:00 NIK ity of [facility] 2022-12-02 2022-12-02 [facility] 1.2.840.114 [id number] Univers 15:36:32 23:59:00 Encounter Nik PRIMARY 350.1.13.10 [place] [id number] Pr dical [address] 2022-12-02 2022-12-02 Office IrenecassieUN[facility] 1.2.840.114 [id number] Univers 16:00:00 16:10:00 Visit Nik PRIMARY 350.1.13.10 it y [place] [id number] Pr dical [address] 2022-12-01 2022-12-01 Urgent David, Delilah J [facility] 1.2.840 .114 [id number] Univers 15:30:00 15:41:08 Care Unknown, Attending HEALTH 350.1.13.10 [place] of [place] [id number] [facility] PRIMARY & [address] SPECIALTY CARE 2022-12-01 2022-12-01 Nurse Floresita Persaud Infusion Chair [facility] 1 .2.840.114 [id number] Univers 13:00:00 15:30:00 Visit Alfredo Reynolds K SPECIALTY 350.1.13. 10 it[place] AT [id number] Pr hollis FREEMAN 3 [facility] 2022-12-01 2022-12-01 Office Adriana [facility] 1.2.840.114 [id number] Univers 10:45:00 10:45:00 Visit [facility] 350.1.13.10 it y of [place] [phone] [place] [id number] OFFICE BUILDING 2022-12-01 2022-12-01 Outpatient R ADRIANA [facility] [id number] Univers 10:45:00 10:39:58 ANIL ity [facility] 2022-12-01 2022-12-01 Orders Doctor REGAN 1.2.840.114 [id number] Univers 00:00:00 00:00:00 Only Unassigned, GILDA 350.1.13.10 ity of [facility] 4.2.7.2.686 Mir as [id number] [address] 2022-11-26 2022-11-26 Telephone Maura [facility] 1.2.585.785 [id number] Univers 00:00:00 00:00:00 Edmund SPECIALTY 350.1.13.10 it[place] AT [id number] Pr sanjayshelby FREEMAN [address] [place] [address] 2022-11-25 2022-11-25 Outpatient R ARACELI [facility] [id number] Univers 15:00:00 15:00:00 NIK ity [facility] 2022-11-25 2022-11-25 Telephone Maura [facility] 1.2.995.740 [id number] Univers 00:00:00 00:00:00 Edmund SPECIALTY 350.1.13.10 it[place] AT [id number] Pr sanjayshelby [address] 2022-11-25 2022-11-25 Orders Doctor REGAN 1.2.840.114 [id number] Univers 00:00:00 00:00:00 Only Unassigned, GILDA 350.1.13.10 ity of [place] [facility] 4.2.7.2.686 Mir as [id number] [facility] [address] 2022-11-23 2022-11-23 Outpatient [facility] [id number] Univers 14:30:00 15:32:42 PAZ quiñones o f [facility] 2022-11-23 2022-11-23 Office [facility] 1.2.840.114 [id number] Univers 14:30:00 15:32:42 Visit Paz POLLOCK 350.1.13.10 ity of [facility] 4.2.7.2.686 [facility] [id number] [facility] AND ABREU [address] [facility] 2022-11-18 2022-11-18 Outpatient [facility] [id number] Univers 15:30:00 15:30:00 NIK [facility] 2022-11-17 2022-11-17 Out[facility] [id number] Univers 13:25:41 23:59:00 WU y [facility] 2022-11-17 2022-11-17 [facility] 1.2.840.114 [id number] Univers 13:25:41 23:59:00 Encounter Wu ROSAURA 350.1.13.10 ity of [facility] 4.2.7.2.686 [facility] AT [id number] Pr hollis FREEMAN 804 [facility] 2022-11-15 2022-11-15 Outpatient [facility] [id number] Univers 11:30:00 11:30:00 ALFREDO quiñones o [facility] 2022-11-11 2022-11-11 Outpatient [facility] [id number] Univers 14:00:00 14:00:00 ARGINI [facility] 2022-11-11 2022-11-11 Refsangeeta HareUN[facility] 1.2.840.114 [id number] Univers 00:00:00 00:00:00 Paz L MULTISPEC 350.1.13.10 ity of IAL[place] 4.2.7.2.686 [facility] [id number] [facility] AND [address] DIABETES CLINIC 2022-11-11 2022-11-11 Telephone [facility] 1.2.840.114 [id number] Univers 00:00:00 00:00:00 [facility] 350.1.13.10 it y [facility] 4.2.7.2.686 [facility] [id number] [facility] PRIMARY & [address] SPECIALTY CARE 2022-11-10 2022-11-10 Outpatient R JUAN [facility] [id number] Univers 15:15:00 17:03:15 JIMBO itlexi [facility] 2022-11-10 2022-11-10 Urgent Juan [facility] 1.2.840.1 [id number] Univers 15:15:00 17:03:15 Care Unknown, [id number] [id number] [facility] [phone] [facility] PRIMARY & [address] SPECIALTY CARE 2022-11-10 2022-11-10 Outpatient R CHARI [facility] [id number] Univers 13:20:00 13:20:00 WU lexi [facility] 2022-11-09 2022-11-09 Telephone Floresita Persaud [facility] [id number] Univers 00:00:00 00:00:00 Infusion SPECIALTY [id number] ity of [facility] 4.2.7.2.686 [facility] AT [id number] Pr sanjayshelby FREEMAN [address] [place] 2022-11-03 2022-11-03 Outpatient R RODOLFO [facility] [id number] Univers 10:30:00 10:30:00 ALFREDO quiñones o f [facility] 2022-11-02 2022-11-02 Office LUIS Felix [id number] [facility] 14:30:00 15:12:17 Visit Karel AMBULATOR 350.1.13.21 [facility] Y 0.2.7.2.686 of [id number] [facility] 800 e 2022-11-01 2022-11-01 Outpatient R ROMERO MILLER [facility] [id number] Univers 10:00:00 10:33:05 ity [facility] 2022-11-01 2022-11-01 Office Dallin [facility] 1.2.840.114 [id number] Univers 10:00:00 10:33:05 Visit S HEALTH 350.1.13.10 it y of FAMILY 4.2.7.2.686 [place] [facility] [id number] Med ical [place] 044 [facility] 2022-10-28 2022-10-28 Outpatient R RONALD [facility] [id number] Univers 10:10:00 10:10:00 [facility] 2022-10-28 2022-10-28 Telephone Dallin Romero [facility] 1.2.840.114 [id number] Univers 00:00:00 00:00:00 S HEALTH 350.1.13.10 it y of FAMILY 4.2.7.2.686 [facility] [id number] Med ical [place] 044 [facility] 2022-10-27 2022-10-27 Outpatient R CHARI [facility] [id number] Univers 10:30:00 10:31:36 WU ity [facility] 2022-10-27 2022-10-27 Office [facility] 1.2.651.982 [id number] [id number] Univers 10:30:00 10:31:36 Visit Wu SPECIALTY 350.1.13.10 ity of [facility] 4.2.7.2.686 [facility] AT [id number] Pr sanjayal PETE [address] [place] 2022-10-26 2022-10-26 Urgent Derik Valentine Lexi [facility] 1.2.840.114 [id number] Univers 14:30:00 14:45:00 Care Unknown, Attending HEALTH 350.1.13.10 ity of [place] 4.2.7.2.686 [place] [facility] [id number] [facility] PRIMARY & [address] SPECIALTY CARE 2022-10-262022-10-26 Outpatient R GINGERKELSEAVictorino [facility] [id number] Univers 14:30:00 14:30:00 ity of [facility] 2022-10-24 2022-10-24 Emergency X [facility] ERT [id number] [id number] Univers 15:51:00 19:37:00 , DAMARIS ity of [facility] 2022-10-24 2022-10-24 Emergency [facility] 1.2.840.114 [id number] Univers 15:51:00 19:37:00 , Damaris CENTER 350.1.13.10 it y of 4.2.7.2.686 [place] [id number] [address] 2022-10-21 2022-10-21 Outpatient Piazza_D VFP VFP [id number] 7-20 [facility] 00:00:00 00:00:00 [id number] Family Practic e 2022-10-21 2022-10-21 Outpatient Piazza_D VFP VFP [id number] 20 [facility] 00:00:00 00:00:00 [id number] Family Practic e 2022-10-20 2022-10-20 Nurse 2Floresita Infusion Chair [facility] 1 .2.840.114 [id number] Univers 10:30:00 13:00:00 Visit Alfredo Reynolds SPECIALTY 350.1.13. 10 ity of CARE 4.2.7.2.686 [place] CENTER AT [id number] Pr hollis FREEMAN 053 [facility] 2022-10-20 2022-10-20 Outpatient Laurie REYNOLDS [facility] [id number] Univers 10:30:00 10:30:00 ALFREDO quiñones o f [facility] 2022-10-20 2022-10-20 Telephone Romero Miller [facility] 1.2.840.114 [id number] Univers 00:00:00 00:00:00 S PRIMARY 350.1.13.10 it y of CARE 4.2.7.2.686 [place] [id number] Pr hollis [address] 2022-10-15 2022-10-15 Outpatient Laurie ALCANTARA [facility] [id number] Univers 09:30:00 09:30:00 DEBBIE quiñones [facility] 2022-10-13 2022-10-13 Rolanda [facility] 1.2.840.114 [id number] Univers 00:00:00 00:00:00 Paz KASPERPEC 350.1.13.10 ity of IALTY 4.2.7.2.686 [facility] [place] [id number] [facility] AND LOIS [address] [facility] 2022-10-13 2022-10-13 Thanh [facility] 1.2.587.665 [id number] [id number] Univers 00:00:00 00:00:00 Edmund SPECIALTY 350.1.13.10 ity of CARE 4.2.7.2.686 [facility] AT [id number] Pr sanjayshelby FREEMAN [address] [place] [address] 2022-10-12 2022-10-12 Out[facility] [id number] Univers 15:30:00 15:30:00 PAZ dawson [facility] 2022-10-11 2022-10-11 Outpatient [facility] [id number] Univers 09:30:00 23:59:00 DEBBIE quiñones [facility] 2022-10-11 2022-10-11 [facility] 1.2.014.227 [id number] Univers 09:30:00 23:59:00 Encounter Debbie HEALTH 350.1.13.10 ity of [place] 4.2.7.2.686 [place] [id number] [facility] [address] OFFICE BUILDING 2022-10-11 2022-10-11 Romero Mann [facility] 1.2.840.114 [id number] Univers 00:00:00 00:00:00 S HEALTH 350.1.13.10 it y of FAMILY 4.2.7.2.686 [place] [facility] [id number] Med ical [place] [address] [facility] 2022-10-08 2022-10-08 Rolanda [facility] 1.2.840.114 [id number] Univers 00:00:00 00:00:00 Alfredo K SPECIALTY 350.1.13.10 ity of CARE 4.2.7.2.686 [place] CENTER AT [id number] Pr hollis FREEMAN 072 [facility] 2022-10-06 2022-10-06 Outpatient R RODOLFO [facility] [id number] Univers 10:30:00 10:30:00 ALFREDO ity o f [facility] 2022-09-30 2022-09-30 Outpatient R FERNIE [facility] ERT [id number] Univers 16:30:00 17:15:08 JAY ity [facility] 2022-09-30 2022-09-30 Office [facility] 1.2.840.114 [id number] Univers 16:30:00 17:15:08 Visit Jay [facility] 350.1.13.10 it y of CARE 4.2.7.2.686 [place] [id number] Pr hollis [address] 2022-09-30 2022-09-30 Outpatient R FERNIE [facility] [id number] Univers 16:30:00 16:30:00 JAY [facility] 2022-09-30 2022-09-30 Emergency Garo, TRAUMA 1.2.267.493 [id number] Univers 00:28:00 02:52:00 Cynise [place] 350.1.13.10 it y of 4.2.7.2.686 [place] [id number] [facility] [address] 2022-09-29 2022-09-29 Nurse WU Narvaez 1.2.840.114 [id number] Univers 00:00:00 00:00:00 Triage Roslyn ARELLANO 350.1.13.10 it y of HOSPITAL 4.2.7.2.686 Mir as [id number] [facility] [address] 2022-09-28 2022-09-28 Outpatient R ADRIANA [facility] [id number] Univers 10:30:00 10:30:00 ANIL ity [facility] 2022-09-27 2022-09-27 Outpatient R DERIK VALENTINE [facility] [id number] Univers 19:00:00 23:59:00 ity [facility] 2022-09-27 2022-09-27 Hospital Derik Valentine [facility] 1.2.840.114 [id number] Univers 18:54:09 23:59:00 Encounter Y HEALTH 350.1.13.10 ity of [place] 4.2.7.2.686 [facility] [id number] [facility] PRIMARY & [address] SPECIALTY CARE 2022-09-27 2022-09-27 Urgent Derik Valentine [facility] 1.2.840.114 [id number] Univers 18:00:00 19:24:54 Care Unknown, Attending HEALTH 350.1.13.10 ity of [place] 4.2.7.2.686 [facility] [id number] [facility] PRIMARY & [address] SPECIALTY CARE 2022-09-23 2022-09-23 Outpatient R [facility] [id number] Univers 13:45:00 13:45:00 ity of [facility] 2022-09-23 2022-09-23 Sami Chan [facility] 1.2.840.114 [id number] Univers 00:00:00 00:00:00 Management Jenny [facility] 350.1.13.10 ity of [facility] 4.2.7.2.686 [facility] [id number] [address] ([facility]) 2022-09-22 2022-09-22 Nurse Floresita Claudio Infusion Chair [facility] 1 .2.840.114 [id number] Univers 10:30:00 13:00:00 Visit Alfredo Reynolds SPECIALTY 350.1.13. 10 ity of CARE 4.2.7.2.686 [facility] AT [id number] Pr sanjayshelby FREEMAN [address] [place] [address] 2022-09-22 2022-09-22 Outpatient R RODOLFO [facility] [id number] Univers 10:30:00 10:30:00 ALFREDO dawson [facility] 2022-09-16 2022-09-17 Emergency X [place] [facility] ERT [id number] Univers 22:47:00 01:39:00 [place] [facility] 2022-09-16 2022-09-17 Emergency Nayana Badillo 1.2.840 .114 [id number] Univers 22:47:00 01:39:00 [place] 350.1.13.10 ity of 4.2.7.2.686 [place] [id number] [facility] [address] 2022-09-17 2022-09-17 Outpatient Piazza_D VFP [facility] [id number] [facility] 00:00:00 00:00:00 [id number] Family Practic e 2022-09-17 2022-09-17 Lamine [facility] [place] - [id number] V illage 00:00:00 00:00:00 Matthew, Anderson Family DO: 7111 Medical - Pract Medical [place] - e Center VM_SUSSY_Shikha Porter, [address] [address] , Ph. 2022-09-16 2022-09-16 Outpatient Piazza_D [facility] [id number] [facility] 00:00:00 00:00:00 [id number] Family Practic e 2022-09-16 2022-09-16 Rolanda [facility] 1.2.840.114 [id number] Univers 00:00:00 00:00:00 [facility] 350.1.13.10 ity of IALTY 4.2.7.2.686 [place] CENTER [id number] [address] DIABETES CLINIC 2022-09-14 2022-09-14 Rolanda [facility] 1.2.840.114 [id number] Univers 00:00:00 00:00:00 Paz [facility] 350.1.13.10 ity of IALTY 4.2.7.2.686 [place] CENTER [id number] [address] DIABETES CLINIC 2022-09-13 2022-09-13 Rolanda [facility] 1.2.840.114 [id number] Univers 00:00:00 00:00:00 Paz [facility] 350.1.13.10 ity of IALTY 4.2.7.2.686 [place] CENTER [id number] [facility] AND ABREU [address] DIABETES CLINIC 2022-09-13 2022-09-13 Refsangeeta Velazquez [facility] 1.2.840.114 [id number] Univers 00:00:00 00:00:00 Debbie ELSIE 350.1.13.10 i ty of [facility] 4.[place].7.2.[place] [id number] [facility] [address] 2022-09-08 2022-09-08 Ancillary Ortho, Vls-Occup Therapy-Wal kin [facility] 1.2.840.114 [id number] Univers 17:30:00 18:00:00 Visit Wu Marcelino 350.1.13.10 ity of BETTY 4.2.7.2.686 [facility] [id number] [address] ([facility]) 2022-09-08 2022-09-08 Outpatient R CHARI [facility] [id number] Univers 16:20:00 16:41:34 WU quiñones [facility] 2022-09-08 2022-09-08 Office [facility] 1.2.583.819 [id number] Univers 16:20:00 16:41:34 Visit Wu ROSAURA 350.1.13.10 ity of CARE 4.2.7.2.686 [facility] AT [phone] Pr sanjayshelby FREEMAN 198 [facility] 2022-09-07 2022-09-07 Outpatient R ROMERO MILLER [facility] [id number] Univers 11:00:00 11:00:00 ity of [facility] 2022-09-06 2022-09-07 Emergency X JUSTINO, [facility] ERT [id number] Univers 20:45:00 01:38:00 NAYANA quiñones [facility] 2022-09-06 2022-09-07 Emergency Justino, TRAU[place] 1.2.938.622 [id number] Univers 20:45:00 01:38:00 Nayana E CENTER 350.1.13.10 ity of 4.2.7.2.686 [facility] [id number] [facility] [address] 2022-09-06 2022-09-06 Outpatient R ALIS [facility] [id number] [id number] Univers 16:40:00 15:33:12 RAGINI quiñones [facility] 2022-09-02 2022-09-02 Office Edmund Lorenzo [facility] 1.2.840.114 [id number] Univers 15:30:00 16:00:00 Visit John Lyla SPECIALTY 350.1.13.10 ity of CARE 4.2.7.2.686 [place] AT [id number] Pr hollis FREEMAN [address] [place] [address] 2022-09-02 2022-09-02 Outpatient [facility] [id number] Univers 15:30:00 15:30:00 LYLA quiñones [facility] 2022-09-01 2022-09-01 Telephone [facility] 1.2.840.114 [id number] Univers 00:00:00 00:00:00 [facility] 350.1.13.10 it y of [place] 4.2.7.2.686 [place] [id number] [place] [id number] OFFICE BUILDING 2022-08-26 2022-08-26 Outpatient [facility] [id number] Univers 15:00:00 17:03:13 GALLO quiñones [facility] 2022-08-26 2022-08-26 Office [facility] 1.2.680.272 [id number] Univers 15:00:00 17:03:13 Visit Gallo Calvin PRIMARY 350.1.13.10 it y of CARE 4.2.7.2.686 [place] [id number] Pr dicshelby [address] [place] [address] 2022-08-26 2022-08-26 Refill [facility]UN[facility] 1.2.104.689 2005 1946 Univers 00:00:00 00:00:00 Gallo H PRIMARY 350.1.13.10 it y of CARE 4.2.7.2.686 [place] [id number] Pr dicct [address] 2022-08-25 2022-08-25 Nurse Floresita Persaud Infusion Chair [facility] 1 .2.840.114 [id number] Univers 10:30:00 13:00:00 Visit Alfredo Reynolds SPECIALTY 350.1.13. 10 ity of CARE 4.2.7.2.686 [place] CENTER AT [id number] Pr hollis FREEMAN 053 [facility] 2022-08-25 2022-08-25 Outpatient R RODOLFO [facility] [id number] Univers 10:30:00 10:30:00 ALFREDO ding f [facility] 2022-08-25 2022-08-25 Telephone [facility]UN[facility] 1.2.047.688 [id number] Univers 00:00:00 00:00:00 Alfredo Ames SPECIALTY 350.1.13.10 ity of CARE 4.2.7.2.686 [place] CENTER AT [id number] Pr hollis FREEMAN 072 [facility] 2022-08-15 2022-08-15 Rolanda H[facility]UN[facility] 1.2.840.114 [id number] Univers 00:00:00 00:00:00 Paz KASPERPEC 350.1.13.10 ity of IALTY 4.2.7.2.686 [place] C[place] [id number] Helen Guillen [address] [facility] 2022-08-12 2022-08-12 Outpatient Laurie MARCELINO [facility] [id number] Univers 16:21:35 23:59:00 WU ity [facility] 2022-08-12 2022-08-12 [facility] 1.2.840.114 [id number] Univers 16:21:35 23:59:00 Encounter Wu SPECIALTY 350.1.13.10 ity of CARE 4.2.7.2.686 [place] C[place] AT [id number] Pr hollis FREEMAN 804 [facility] 2022-08-12 2022-08-12 Outpatient Piazza_D VFP VFP [id number] 7- Village 00:00:00 00:00:00 [id number] Family Practic e 2022-08-11 2022-08-11 Outpatient R RODOLFO [facility] [id number] Univers 11:30:00 11:30:00 ALFREDO dawson [facility] 2022-08-09 2022-08-09 Outpatient Laurie COYLE [facility] [id number] Univers 14:50:00 14:50:00 ADELFO quiñones [facility] 2022-08-06 2022-08-06 Telephone Rodolfo [facility] 1.2.212.024 [id number] [id number] Univers 00:00:00 00:00:00 Alfredo Ames SPECIALTY 350.1.13.10 ity of CARE 4.2.7.2.686 [place] AT [id number] [facility] 053 [facility] 2022-08-04 2022-08-04 Refill LeslyUN[facility] 1.2.735.736 [id number] Univers 00:00:00 00:00:00 [facility] 350.1.13.10 it y of FAMILY 4.2.7.2.686 [place] [facility] [id number] Med ical [place] [address] [facility] 2022-08-03 2022-08-03 Refill CinthiaUN[facility] 1.2.840.114 [id number] Univers 00:00:00 00:00:00 [facility] 350.1.13.10 it y of [place] 4.2.7.2.686 [place] [id number] [facility] [address] OFFICE BUILDING 2022-08-02 2022-08-02 Outpatient Laurie COYLE [facility] [id number] Univers 14:40:00 14:40:00 ADELFO quiñones [facility] 2022-08-02 2022-08-02 Outpatient R CHARI [facility] [id number] Univers 09:20:00 11:03:13 WU quiñones [facility] 2022-08-02 2022-08-02 Office [facility] 1.2.056.861 [id number] Univers 09:20:00 11:03:13 Visit Wu [facility] 350.1.13.10 it y of CARE 4.2.7.2.686 [place] [facility] [id number] Pr dic[address] 2022-08-02 2022-08-02 Outpatient Laurie MARCELINO [facility] [id number] [id number] Univers 09:20:00 09:20:00 WU ity of [facility] 2022-07-29 2022-07-29 Outpatient R ARACELI [facility] [id number] Univers 16:40:00 17:11:23 NIK ity [facility] 2022-07-29 2022-07-29 Office [facility]UN[facility] 1.2.840.114 [id number] Univers 16:40:00 17:11:23 Visit Nik PRIMARY 350.1.13.10 it y of CARE 4.2.7.2.686 [place] [facility] 212.4734527 Pr hollis [address] 2022-07-28 2022-07-28 Nurse 2Floresita Infusion Chair [facility] 1 .2.840.114 [id number] Univers 11:00:00 13:30:00 Visit Alfredo Reynolds SPECIALTY 350.1.13. 10 ity of CARE 4.2.7.2.686 [place] AT 341.5638859 Pr sanjayshelby VICTORY 3 [facility] 2022-07-28 2022-07-28 Outpatient R RODOLFO [facility] [id number] Univers 11:00:00 11:00:00 ALFREDO ding f [facility] 2022-07-27 2022-07-27 Office LUIS FELIX 1.2.840.114 [id number] [facility] 14:10:48 14:53:54 Visit KAREL AMBULATOR 350.1.13.21 College Y 0.2.7.2.686 of [id number] [facility] corine 800 e 2022-07-23 2022-07-23 Refsangeeta Hare [facility] 1.2.840.114 [id number] [id number] Univers 00:00:00 00:00:00 Paz Reynoso MULTISPEC 350.1.13.10 ity of IALTY 4.2.7.2.686 [place] C[place] [id number] Helen pierce AND LOIS [address] [facility]ES CLINIC 2022-07-23 2022-07-23 Rolanda Cervantes [facility] 1.2.840.114 [id number] Univers 00:00:00 00:00:00 Vasile PRIMARY 350.1.13.10 it y of C[place] 4.2.7.2.686 [place] [id number] [address] 2022-07-22 2022-07-22 Outpatient R ARACELI [facility] [id number] Univers 16:50:00 16:50:00 NIK ity of [facility] 2022-07-22 2022-07-22 [facility] 1.2.840.114 [id number] Univers 00:00:00 00:00:00 Vasile PRIMARY 350.1.13.10 it y of C[place] 4.2.7.2.686 [place] [id number] [address] 2022-07-22 2022-07-22 Rolanda [facility]UN[facility] 1.2.840.114 [id number] Univers 00:00:00 00:00:00 Paz KASPERPEC 350.1.13.10 ity of IALTY 4.2.7.2.686 [place] C[place] [id number] [address] DIABETES CLINIC 2022-07-21 2022-07-21 [facility] 1.2.840.114 [id number] Univers 00:00:00 00:00:00 Wu SPECIALTY 350.1.13.10 ity of CARE 4.2.7.2.686 [place] C[place] AT [id number] [facility] 198 [facility] 2022-07-21 2022-07-21 Rolanda [facility]UN[facility] 1.2.840.114 [id number] Univers 00:00:00 00:00:00 Paz Reynoso MULTISPEC 350.1.13.10 ity of IALTY 4.2.7.2.686 [place] [id number] [address] DIABETES CLINIC 2022-07-15 2022-07-15 Outpatient [facility] [id number] Univers 15:40:00 15:40:00 NIK ity of [facility] 2022-07-14 2022-07-14 [facility] 1.2.840.114 [id number] Univers 20:53:01 23:59:00 Encounter Zaira SPECIALTY 350.1.13.10 ity of CARE 4.2.7.2.686 [facility] AT [id number] Pr hollis FREEMAN 808 [facility] 2022-07-14 2022-07-14 Outpatient [facility] [id number] [id number] Univers 20:00:00 20:55:37 ZAIRA ity [facility] 2022-07-14 2022-07-14 Urgent Zaira Jenkins [facility] 1.2.840.1 14 [id number] Univers 20:00:00 20:55:37 Care Unknown, Attending BETTY 350.1.13.10 ity of CITY 4.2.7.2.686 [facility] [id number] [address] 2022-07-14 2022-07-14 Nurse Floresita Persaud Infusion Chair [facility] 1 .2.840.114 [id number] Univers 10:00:00 12:30:00 Visit Alfredo Reynolds SPECIALTY 350.1.13. 10 ity of CARE 4.2.7.2.686 [facility] AT [id number] Pr hollis FREEMAN 053 [facility] 2022-07-14 2022-07-14 Rolanda [facility] 1.2.840.114 [id number] Univers 00:00:00 00:00:00 Paz Reynoso MULTISPEC 350.1.13.10 ity of IALTY 4.2.7.2.[address] [place] [address] [id number] [facility] AND LOIS [address] [place] [address] DIABETES CLINIC 2022-07-12 2022-07-12 Outpatient Piazza_D VFP VFP [id number] 7-20 Village 00:00:00 00:00:00 [id number] Family Practic e 2022-06-30 2022-06-30 Outpatient R SRIKANTH RODRIGUEZ [facility] [id number] Univers 08:30:00 08:30:00 ity of [facility] 2022-06-29 2022-06-29 Outpatient R BRIAN [facility] [id number] Univers 13:30:00 13:30:00 DEBBIE ity [facility] 2022-06-25 2022-06-25 Rolanda Hare [facility] 1.2.840.114 [id number] Univers 00:00:00 00:00:00 Paz KASPERPEC 350.1.13.10 ity of IALTY 4.2.7.2.686 [facility] [id number] Helen pierce AND LOIS [address] [facility] 2022-06-17 2022-06-17 Lamine Matthew_D [facility] [place] - [id number] 0 Village 00:00:00 00:00:00 Matthew, [place] [id number] Family DO: 7111 Medical - Pract ic Medical _HOU_[facility] [address], [place] [address] , Ph. 2022-06-16 2022-06-16 Nurse 4Floresita Infusion Chair [facility] 1 ..840.114 [id number] Univers 10:30:00 13:00:00 Visit Srikanth Rodriguez SPECIALTY 350.1.13.1 0 ity of CARE 4.2.7.2.686 [facility] AT [id number] Pr hollis FREEMAN [address] [place] [address] 2022-06-16 2022-06-16 Outpatient SRIKANTH HER [facility] [id number] Univers 10:30:00 10:30:00 ity of [facility] 2022-06-16 2022-06-16 Outpatient SRIKANTH HER [facility] [id number] Univers 10:30:00 10:30:00 ity of [facility] 2022-06-09 2022-06-09 Outpatient Laurie FUNES [facility] [id number] Univers 09:27:03 23:59:00 GABINO ity [facility] 2022-06-09 2022-06-09 [facility] SANTANA Funes 1.2.840.114 [id number] Univers 09:27:03 23:59:00 Encounter Gabino [facility] 350.1.13.10 [place] [id number] [facility] [address] 2022-06-09 2022-06-09 Hospital SANTANA Funes 1.2.840.114 [id number] Univers 09:27:03 23:59:00 Encounter Gabino [facility] 350.1.13.10 [place] [id number] [facility] [address] 2022-06-09 2022-06-09 Outpatient R LEONOR [facility] [id number] Univers 09:27:03 23:59:00 GABINO ity of [facility] 2022-06-09 2022-06-09 Telephone Cinthia [facility] 1.2.840.114 [id number] Univers 00:00:00 00:00:00 [facility] 350.1.13.10 [place] [id number] [place] [id number] Branch OFFICE BUILDING 2022-06-09 2022-06-09 Rolanda Hare [facility] 1.2.840.114 [id number] Univers 00:00:00 00:00:00 Paz [place] 350.1.13.10 [place] [id number] [place] [id number] [facility] 2022-06-07 2022-06-07 Telephone Srikanth Rodriguez [facility] 1.2.840.114 [id number] Univers 00:00:00 00:00:00 [place] [facility] 350.1.13.10 [place] [id number] Pr hollis FREEMAN [address] [place] 2022-06-03 2022-06-03 Nurse Floresita Claudio Infusion Chair [facility] 1 .2.840.114 [id number] Univers 11:30:00 14:00:00 Visit Srikanth Rodriguez SPECIALTY 350.1.13.1 0 [place] [id number] Pr hollis Rosario [facility] 2022-06-03 2022-06-03 Outpatient R SRIKANTH RODRIGUEZ [facility] [id number] Univers 11:30:00 11:30:00 ity of [facility] 2022-06-02 2022-06-02 Outpatient LUIS FELIX [facility] [id number] [facility] 10:38:57 15:08:43 KAREL manriquez of Medicin e 2022-06-02 2022-06-02 Outpatient R MICHAEL SRIKANTH [facility] [id number] Univers 10:30:00 10:30:00 ity of [facility] 2022-06-02 2022-06-02 [facility] 1.2.840.114 [id number] Univers 00:00:00 00:00:00 [facility] 350.1.13.10 [place] [id number] [address] 2022-05-31 2022-05-31 [facility] 1.2.840.114 [id number] Univers 00:00:00 00:00:00 Paz [facility] 350.1.13.10 [place] [id number] [address] [facility] 2022-05-31 2022-05-31 Refsangeeta [facility] 1.2.840.114 [id number] Univers 00:00:00 00:00:00 [facility] 350.1.13.10 [place] [id number] [address] OFFICE [facility] 2022-05-28 2022-05-28 [facility] 1.2.840.114 [id number] Univers 00:00:00 00:00:00 Paz Reynoso MULTISPEC 350.1.13.10 ity of [place] [id number] [address] DIABETES CLINIC 2022 2022 Orders Doctor WU 1.2.840.114 [id number] Univers 00:00:00 00:00:00 Only Unassigned, GILDA 350.1.13.10 ity of [facility] 4.2.7.2.686 Mir as [id number] [facility] [address] 2022-05-24 2022-05-24 Outpatient Piazza_D VFP VFP [id number] 7-20 Village 00:00:00 00:00:00 [id number] Family Practic e 2022-05-21 2022-05-21 Nurse 5Krista-South Infusion Chair [facility] 1 .2.840.114 [id number] Univers 09:30:00 12:00:00 Visit Srikanth Rodriguez SPECIALTY 350.1.13.1 0 it[place] [id number] Pr hollis [facility] [address] [place] [address] 2022-05-21 2022-05-21 Outpatient SRIKANTH HER [facility] [id number] Univers 09:30:00 09:30:00 ity of [facility] 2022-05-20 2022-05-20 Outpatient Laurie SAPP [facility] [id number] Univers 16:00:00 16:00:00 JUANCHO ity of [facility] 2022-05-19 2022-05-19 Rolanda Cervantes [facility] 1.2.840.114 [id number] Univers 00:00:00 00:00:00 Vasile JOHN 350.1.13.10 it y [place] [id number] Pr hollis [address] 2022-05-19 2022-05-19 Rolanda Hare [facility] 1.2.840.114 [id number] Univers 00:00:00 00:00:00 Paz POLLOCK 350.1.13.10 it[place] [id number] [facility] AND LOIS [address] DIABETES CLINIC 2022-05-18 2022-05-18 Telephone 3, Krista [facility] 1.2.385.131 [id number] Univers 00:00:00 00:00:00 Adult SPECIALTY 350.1.13.10 ity of Infusion CARE 4.2.7.2.686 Mri as Nurse CENTER AT [id number] Pr sanjayshelby EMILELexi 053 [facility] 2022-05-14 2022-05-14 Telemedici [facility] 1.2.840.114 [id number] Univers 11:30:00 11:45:00 ne Visit Beny NIMCO 350.1.13.10 ity [facility] 4.2.[place] [id number] Pr hollis [place] 098 [facility] 2022-05-14 2022-05-14 Outpatient R WILLIAM [facility] [id number] Univers 11:30:00 11:30:00 BENY itlexi [facility] 2022-05-11 2022-05-11 Telephone [facility] 1.2.834.862 [id number] Univers 00:00:00 00:00:00 Jhony PRIMARY 350.1.13.10 it y of C[place].2.[place] [id number] Pr hollis [address] 2022-05-10 2022-05-10 Unhairing Inspector Vls-Lab [facility] 1.2.840.114 [id number] Univers 16:30:00 16:45:00 Visit Srikanth Rodriguez SPECIALTY 350.1.13.1 0 ity of [place] AT [id number] Pr sanjayshelby PETE 353 [facility] 2022-05-10 2022-05-10 Outpatient R SRIKANTH RODRIGUEZ [facility] [id number] Univers 16:30:00 16:30:00 ity [facility] 2022-05-10 2022-05-10 Outpatient R [facility] [id number] Univers 11:00:00 12:18:58 EL [facility] 2022-05-10 2022-05-10 Office Jhony Suresh [facility] 1.2.840.114 [id number] Univers 11:00:00 12:18:58 Visit El Milligan PRIMARY 350.1.13. 10 it[place] [id number] Pr hollis [address] [place] [address] 2022-05-06 2022-05-06 Telephone [facility] 1.2.840.114 [id number] Univers 00:00:00 00:00:00 [facility] 350.1.13.10 it y of [place].2.[place] JULIAN [id number] [address] OFFICE BUILDING 2022-05-04 2022-05-04 Outpatient R BRIAN [facility] [id number] Univers 13:30:00 13:30:00 DEBBIE [facility] 2022-05-04 2022-05-04 [facility] 1.2.382.505 [id number] Univers 00:00:00 00:00:00 [facility] SPECIALTY 350.1.13.10 ity of CARE 4.2.7.2.686 [facility] [place] AT [id number] Pr hollis [address] 2022-05-03 2022-05-03 Telephone Srikanth Rodriguez [facility] 1.2.840.114 [id number] Univers 00:00:00 00:00:00 Clare MULTISPEC 350.1.13.10 ity of IALTY 4.2.7.2.686 [facility] [id number] [facility] AND LOIS [address] [place] [address] DIABETES CLINIC 2022-04-29 2022-04-29 Outpatient R WEI VICENTE [facility] [id number] Univers 10:30:00 11:26:40 [facility] 2022-04-29 2022-04-29 Office [facility] 1.2.840.114 [id number] Univers 10:30:00 11:26:40 Visit [facility] 350.1.13.10 it y of [place] [id number] [address] OFFICE BUILDING 2022-04-29 2022-04-29 Outpatient R WEI VICENTE [facility] [id number] Univers 10:30:00 11:26:40 WEI VICENTE ity [facility] 2022-04-29 2022-04-29 Telephone Cinthia [facility] 1.2.840.114 [id number] Univers 00:00:00 00:00:00 Muhie HEALTH 350.1.13.10 it y of [place] [id number] [facility] [address] OFFICE [facility] 2022-04-28 2022-04-28 Telephone [facility] 1.2.840.114 [id number] Univers 00:00:00 00:00:00 Beny HEALTH 350.1.13.10 it y of [place] [id number] [facility] [address] OFFICE [facility] 2022-04-16 2022-04-16 [facility] 1.2.840.114 [id number] Univers 12:05:33 23:59:00 Encounter Diamond PRIMARY 350.1.13.10 ity of [place] CARE 4.2.7.2.[place] [id number] Pr hollis [address] 2022-04-16 2022-04-16 Outpatient Laurie COTTO [facility] [id number] Univers 12:05:33 23:59:00 DIAMOND quiñones [facility] 2022-04-16 2022-04-16 Outpatient Laurie COTTO [facility] [id number] Univers 11:00:00 12:01:04 DIAMOND quiñones [facility] 2022-04-16 2022-04-16 Office Srikanth Bahena [facility] 1.2.840.114 [id number] Univers 11:00:00 12:01:04 Visit Cotto, Diamond Leila PRIMARY 350.1.13.1 0 ity of C[place] 4.2.7.2.[place] [id number] Pr dical [address] 2022-04-16 2022-04-16 [facility] 1.2.840.114 [id number] Univers 00:00:00 00:00:00 Beny HEALTH 350.1.13.10 it y of [place] [id number] [address] OFFICE [facility] 2022-04-16 2022-04-16 [facility] 1.2.840.114 [id number] Univers 00:00:00 00:00:00 Beny HEALTH 350.1.13.10 it y of [place] [id number] [address] OFFICE [facility] 2022-04-16 2022-04-16 Telephone [facility] 1.2.840.114 [id number] Univers 00:00:00 00:00:00 Beny HEALTH 350.1.13.10 it y of [place] [id number] [address] OFFICE [facility] 2022-04-16 2022-04-16 Telephone [facility] 1.2.840.114 [id number] Univers 00:00:00 00:00:00 Beny HEALTH 350.1.13.10 it y of [place].2.[place] [id number] [address] OFFICE [facility] 2022-04-14 2022-04-14 Outpatient R MANNIE [facility] [id number] Univers 11:30:00 11:30:00 BRIANNA quiñones [facility] 2022-04-14 2022-04-14 Telephone [facility] 1.2.840.114 [id number] Univers 00:00:00 00:00:00 Beny HEALTH 350.1.13.10 it y of [place] [id number] [address] OFFICE [facility] 2022-04-13 2022-04-13 Outpatient R [facility] [id number] Univers 15:30:00 16:59:09 BENY quiñones [facility] 2022-04-13 2022-04-13 Office [facility] 1.2.840.114 [id number] Univers 15:30:00 16:59:09 Visit Beny HEALTH 350.1.13.10 it y of GARY 4.2.7.2.686 [facility] [id number] [facility] [address] OFFICE BUILDING 2022-04-13 2022-04-13 Out[facility] [id number] Univers 15:30:00 15:30:00 BENY quiñones [facility] 2022-04-13 2022-04-13 Outpatient [facility] [id number] Univers 12:30:00 13:09:03 PAZ dawson [facility] 2022-04-13 2022-04-13 Office [facility] 1.2.840.114 [id number] Univers 12:30:00 13:09:03 Visit [facility] 350.1.13.10 ity of JAQUELIN 4.2.7.2.686 [facility] [id number] [facility] [place] 86[address] DIABETES CLINIC 2022-04-13 2022-04-13 Outpatient R ANANYA [facility] [id number] Univers 12:30:00 13:09:03 PAZ dawson [facility] 2022-04-09 2022-04-09 Emergency X [facility] ERT [id number] Univers 13:20:00 14:36:00 EVAN quiñones [facility] 2022-04-09 2022-04-09 [facility] 1.2.620.974 [id number] Univers 13:20:00 14:36:00 Evan [facility] 350.1.13.10 it y of Christel BLAIR 4.2.7.2.686 [facility] [id number] [address] ([facility]) 2022-04-09 2022-04-09 Emergency X [facility] ERT [id number] Univers 13:20:00 14:36:00 EVAN quiñones [facility] 2022-04-06 2022-04-06 Outpatient [facility] [id number] Univers 10:10:00 11:23:39 LAURA [facility] 2022-04-06 2022-04-06 Office Srikanth Bahena [facility] 1.2.840.114 [id number] Univers 10:10:00 11:23:39 Visit Laura Lantigua Edgardo PRIMARY 350.1.13.1 0 ity of CARE 4.2.7.2.686 [place] [facility] [id number] Pr sanjayshelby [address] [place] [address] 2022-04-06 2022-04-06 Outpatient R GRZEGORZ [facility] [id number] Univers 10:10:00 10:10:00 LAURA [facility] 2022-04-06 2022-04-06 Outpatient R ADRIANA [facility] [id number] Univers 08:45:00 08:45:00 ANIL [facility] 2022-04-05 2022-04-05 Outpatient Laurie COYLE [facility] [id number] Univers 14:40:00 16:07:03 ADELFO [facility] 2022-04-05 2022-04-05 Office [facility] 1.2.840.114 [id number] Univers 14:40:00 16:07:03 Visit Adelfo Whitten SPECIALTY 350.1.13.10 it[place] C[place]2.[place] AT [id number] Pr sanjayshelby FREEMAN [address] [place] [address] 2022-04-05 2022-04-05 Outpatient Laurie COYLE [facility] [id number] Univers 14:40:00 16:07:03 ADELFO itlexi [facility] 2022-04-05 2022-04-05 Office [facility] 1.2.840.114 [id number] Univers 14:40:00 16:07:03 Visit Adelfo A SPECIALTY 350.1.13.10 ity of C[place].2.[place].2.[place] AT [id number] Pr hollis FREEMAN [address] [place] [address] 2022-04-05 2022-04-05 Outpatient Laurie [facility] [id number] Univers 14:40:00 14:40:00 ADELFO ity [facility] 2022-03-31 2022-03-31 Nurse 4, Floresita Infusion Chair [facility] 1 .2.840.114 [id number] Univers 11:30:00 13:00:00 Visit Srikanth Rodriguez SPECIALTY 350.1.13.1 0 ity of C[place].2.7.2.[place] AT [id number] Pr sanjayshelby FREEMAN 053 [facility] 2022-03-31 2022-03-31 Outpatient R PIERCELacie SRIKANTH [facility] [id number] Univers 11:30:00 11:30:00 ity of [facility] 2022-03-30 2022-03-30 Telephone [facility] 1.2.840.114 [id number] Univers 00:00:00 00:00:00 Clare SPECIALTY 350.1.13.10 ity of C[place].2.7.2.[place] AT [id number] Pr sanjayshelby EMILELexi 072 [facility] 2022-03-30 2022-03-30 Telephone [facility] 1.2.840.114 [id number] [facility] 00:00:00 00:00:00 [facility] HEALTH 350.1.13.10 it y [place]2.[place] - [id number] [facility] [address] 2022-03-30 2022-03-30 Telephone Shruti [facility] 1.2.840.114 [id number] [id number] Univers 00:00:00 00:00:00 Srikanth PRIMARY 350.1.13.10 it y of C[place].2.7.2.[place] [id number] Pr sanjayshelby [address] 2022-03-29 2022-03-29 Office Raven, UTP 6400 1.2.077.959 1641 [id number] [place] 14:15:00 14:30:[address] 350.1.13.58 Health atomi 9.2.7.2.686 [id number] 4 2022-03-26 2022-03-26 Orders Doctor WU 1.2.840.114 [id number] Univers 00:00:00 00:00:00 Only Unassigned, GILDA 350.1.13.10 ity of [facility] 4.2.7.2.686 Mir as [id number] [facility] [address] 2022-03-26 2022-03-26 Telephone Ananya, [facility] 1.2.840.114 [id number] Univers 00:00:00 00:00:00 Paz Edgardo KASPERPEC 350.1.13.10 ity of [facility] 4.2.7.2.686 [place] C[place] [id number] [address] DIABETES CLINIC 2022-03-26 2022-03-26 Refsangeeta EdwardsUNM [facility] 1.2.840.114 [id number] Univers 00:00:00 00:00:00 Joseph ZIMMERMAN 350.1.13.10 i ty of [facility] 4.[place].7.2.686 [place] [id number] [facility] [address] 2022-03-26 2022-03-26 Refsangeeta ChandUNM [facility] 1.2.840.114 [id number] Univers 00:00:00 00:00:00 [facility] 350.1.13.10 it y of [place].2.[place] [id number] [address] OFFICE BUILDING 2022-03-23 2022-03-23 Outpatient Laurie THOMAS [facility] [id number] Univers 14:30:00 14:30:00 BENY quiñones [facility] 2022-03-17 2022-03-17 Outpatient R MANNIE [facility] [id number] Univers 11:00:00 11:42:42 BRIANNA quiñones [facility] 2022-03-17 2022-03-17 Office [facility] 1.2.840.114 [id number] Univers 11:00:00 11:42:42 Visit [facility] 350.1.13.10 it y of [place].2.[place] [id number] [address] OFFICE BUILDING 2022-03-16 2022-03-16 Emergency X ROYER, [facility] ERT [id number] Univers 20:38:00 22:32:00 VELMA ity [facility] 2022-03-16 2022-03-16 Emergency [facility] 1.2.840.114 [id number] Univers 20:38:00 22:32:00 Velma HEALTH 350.1.13.10 it y of [place].2.686 [place] [id number] [address] ([facility]) 2022-03-16 2022-03-16 Emergency X ROYER, [facility] ERT [id number] Univers 20:38:00 22:32:00 VELMA [facility] 2022-03-16 2022-03-16 Outpatient R ADRIANA [facility] [id number] Univers 08:00:00 08:00:00 ANIL [facility] 2022-03-16 2022-03-16 Telephone Adriana [facility] 1.2.482.286 [id number] Univers 00:00:00 00:00:00 [facility] 350.1.13.10 it y of [place].2.[place] [id number] [place] [address] OFFICE BUILDING 2022-03-10 2022-03-11 Emergency X ADELFO VARGAS [facility] ERT [id number] Univers 18:47:00 02:39:00 ity [facility] 2022-03-10 2022-03-11 Emergency Adelfo Vargas TRAUMA 1.2.840.114 [id number] Univers 18:47:00 02:39:00 W CENTER 350.1.13.10 it [place] of [place].2.7.2.686 [place] [id number] [address] 2022-03-11 2022-03-11 Telephone Shruti [facility] 1.2.840.114 [id number] Univers 00:00:00 00:00:00 Srikanth PRIMARY 350.1.13.10 it y of CARE 4.2.7.2.[place] [id number] [address] 2022-03-09 2022-03-09 Outpatient R [facility] [id number] Univers 15:10:00 15:10:00 ity of [facility] 2022-03-04 2022-03-04 Rolanda Hare [facility] 1.2.840.114 [id number] Univers 00:00:00 00:00:00 Paz KASPERPEC 350.1.13.10 ity of I[place] 4.2.7.2.686 [place] C[place] [id number] [facility] AND [address] DIABETES CLINIC 2022-03-04 2022-03-04 Telephone Srikanth Rodriguez [facility] 1.2.840.114 [id number] Univers 00:00:00 00:00:00 Armandos SPECIALTY 350.1.13.10 ity of CARE 4.2.7.2.686 [place] AT [id number] Pr sanjayshelby FREEMAN 072 [facility] 2022-03-04 2022-03-04 Rolanda Edwards [facility] 1.2.840.114 [id number] Univers 00:00:00 00:00:00 Joseph ZIMMERMAN 350.1.13.10 i ty of [facility] 4.2.7.2.686 [place] [id number] [facility] [address] 2022-03-04 2022-03-04 Rolanda Hare [facility] 1.2.840.114 [id number] Univers 00:00:00 00:00:00 Paz KASPERPEC 350.1.13.10 ity of I[place] 4.2.7.2.686 [place] [id number] [facility] AND [address] DIABETES CLINIC 2022-03-03 2022-03-03 Nurse Floresita Persaud Infusion Chair [facility] 1 .2.840.114 [id number] Univers 11:30:00 13:00:00 Visit Srikanth Rodriguez SPECIALTY 350.1.13.1 0 ity of CARE 4.2.7.2.686 [place] C[place] AT [id number] Pr dicshelby FREEMAN 053 [facility] 2022-03-03 2022-03-03 Outpatient R SRIKANTH RODRIGUEZ [facility] [id number] Univers 11:30:00 11:30:00 ity [facility] 2022-03-03 2022-03-03 Outpatient R SRIKANTH RODRIGUEZ [facility] [id number] Univers 11:30:00 11:30:00 ity of [facility] 2022-03-02 2022-03-02 Outpatient R LEONOR [facility] [id number] Univers 00:00:00 00:00:00 GABINO ity [facility] 2022-03-02 2022-03-02 Outpatient R LEONOR [facility] [id number] Univers 00:00:00 00:00:00 GABINO ity [facility] 2022-02-23 2022-02-23 Outpatient R WILLIAM [facility] [id number] Univers 09:00:00 10:18:24 BENY ity [facility] 2022-02-23 2022-02-23 Office [facility] 1.2.840.114 [id number] Univers 09:00:00 10:18:24 Visit Beny HEALTH 350.1.13.10 it y of [place].2.[place] [id number] [address] OFFICE BUILDING 2022-02-23 2022-02-23 Refill [facility] 1.2.840.114 [id number] Univers 00:00:00 00:00:00 Beny HEALTH 350.1.13.10 it y of [place].2.[place] [id number] [address] OFFICE BUILDING 2022-02-22 2022-02-22 Emergency X RUGGIERO ROMÁN [facility] ERT [id number] Univers 08:18:00 12:20:00 BAHMAN ROMÁN lexi [facility] 2022-02-22 2022-02-22 Emergency [facility] 1.2.584.607 [id number] Univers 08:18:00 12:20:00 Román HEALTH 350.1.13.10 it y of [place].2.[place] [id number] [address] ([facility]) 2022-02-22 2022-02-22 Emergency X ROMÁN RUGGIERO [facility] ERT 1 [id number] Univers 08:18:00 12:20:00 ROMÁN RUGGIERO [facility] 2022-02-17 2022-02-17 Nurse 1Floresita Infusion Chair [facility] 1 .2.840.114 [id number] Univers 11:00:00 12:30:00 Visit Srikanth Rodriguez SPECIALTY 350.1.13.1 0 ity of CARE 4.2.7.2.686 [place] C[place] AT [id number] Pr sanjayshelby FREEMAN 053 [facility] 2022-02-17 2022-02-17 Outpatient R SRIKANTH RODRIGUEZ [facility] [id number] Univers 11:00:00 [facility]:00[facility]-17 2022-02-17 Outpatient R MICHAEL [facility] [id number] Univers 11:00:00 11:00:00 [facility] 2022-02-17 2022-02-17 Outpatient R SRIKANTH RODRIGUEZ [facility] [id number] Univers 11:00:00 11:00:00 [facility] 2022-02-15 2022-02-15 Outpatient Laurie LANTIGUA [facility] [id number] Univers 15:40:29 23:59:00 LAURA [facility] 2022-02-15 2022-02-15 [facility] 1..840.114 [id number] Univers 15:30:00 23:59:00 Encounter Laura Reynoso SPECIALTY 350.1.13.10 ity of C[place] 4[place]2.7.2.686 [place] AT [id number] Pr sanjayshelby FREEMAN 806 [facility] 2022-02-15 2022-02-15 Unhairing Inspector Pcp-Lab [facility] 1.2.840.114 [id number] Univers 11:45:00 12:00:00 Visit Dennis Perla PRIMARY 350.1.13.10 ity of [place] 4.2.7.2.686 [place] [id number] Pr sanjayshelby [address] [place] [address] 2022-02-15 2022-02-15 Office Jhony Suresh [facility] 1.2.840.114 [id number] Univers 10:40:00 11:42:46 Visit AstonbryantDennis lama PRIMARY 350.1.13.10 ity of C[place] 4.2.7.2.686 [place] [id number] Pr hollis [address] [place] [address] 2022-02-15 2022-02-15 Outpatient R PAN [facility] [id number] Univers 10:40:00 11:42:46 DENNIS blancolexi [facility] 2022-02-15 2022-02-15 Outpatient [facility] [id number] Univers 00:00:00 00:00:00 LAURA lexi [facility] 2022-02-12 2022-02-12 Telephone [facility] 12.840.114 [id number] Univers 00:00:00 00:00:00 Srikanth PRIMARY 350.1.13.10 it y [place] 4.2.7.2.686 [place] [id number] [address] 2022-02-10 2022-02-10 Telephone [facility] 1.2.840.114 [id number] Univers 00:00:00 00:00:00 Srikanth PRIMARY 350.1.13.10 it y of C[place] [id number] Pr hollis [address] [place] [address] 2022-02-05 2022-02-05 [facility] [id number] Univers 15:10:00 16:32:37 LAURA quiñones [facility] 2022-02-05 2022-02-05 Office Shruti Srikanth [facility] 1.2.840.114 [id number] Univers 15:10:00 16:32:37 Visit Laura Lantigua L PRIMARY 350.1.13.1 0 it[place] [id number] Pr hollis [address] [place] [address] 2022-02-05 2022-02-05 [facility] [id number] Univers 15:10:00 16:32:37 LAURA [facility] 2022-02-05 2022-02-05 Outpatient Laurie LANTIGUA [facility] [id number] Univers 15:10:00 16:32:37 LAURA [facility] 2022-02-05 2022-02-05 Nurse 3, Floresita Infusion Chair [facility] 1 .2.840.114 [id number] Univers 10:00:00 11:30:00 Visit Srikanth Rodriguez SPECIALTY 350.1.13.1 0 [place] [id number] Pr hollis FREEMAN 3 [facility] 2022-02-05 2022-02-05 Outpatient SRIKANTH HER [facility] [id number] Univers 10:00:00 10:00:00 [facility] 2022-02-03 2022-02-03 Outpatient SRIKANTH HER [facility] [id number] Univers 11:00:00 11:00:00 [facility] 2022-02-03 2022-02-03 Outpatient SRIKANTH HER [facility] [id number] Univers 11:00:00 11:00:00 [facility] 2022-01-27 2022-01-27 SANTANA Gilliland 1.2.251.970 [id number] Univers 00:00:00 00:00:00 Management Irfan Y HEALTH 350.1.13.10 [place] [id number] [facility] [address] 2022-01-25 2022-01-25 Office LUIS FELIX 1.2.840.114 [id number] [facility] 14:23:06 15:22:49 Visit KAREL AMBULATOR 350.1.13.21 [place] 0.2.7.2.686 [id number] [facility] 800 e 2022-01-21 2022-01-21 Outpatient Laurie COYLE [facility] [id number] Univers 13:00:00 13:00:00 ADELFO quiñones [facility] 2022-01-21 2022-01-21 Outpatient Laurie COYLE [facility] [id number] Univers 13:00:00 13:00:00 ADELFO [facility] 2022-01-21 2022-01-21 Outpatient Laurie COYLE [facility] [id number] Univers 13:00:00 13:00:00 ADELFO [facility] 2022-01-21 2022-01-21 Case Evangelina, [facility] 1.2.840.114 [id number] Univers 00:00:00 00:00:00 Management [facility] 350.1.13.10 ity of [facility] 4.2.7.2.686 [facility] [id number] [address] ([facility]) 2022-01-20 2022-01-20 Outpatient SRIKANTH HER [facility] [id number] Univers 09:30:00 09:30:00 ity [facility] 2022-01-20 2022-01-20 Outpatient SRIKANTH HER [facility] [id number] Univers 09:30:00 [facility]22-01-06 Nurse 3, Krista Adult Infusion Nurse [facility] 1.2.840.114 [id number] Univers 10:30:00 12:00:00 Visit Srikanth Rodriguez SPECIALTY 350.1.13.1 0 ity of [facility] 4.2.7.2.686 [facility] AT [phone] Pr hollis [address] 2022-01-06 2022-01-06 Outpatient SRIKANTH HER [facility] [id number] Univers 10:30:00 10:30:00 ity [facility] 2022-01-06 2022-01-06 Outpatient SRIKANTH HER [facility] [id number] Univers 10:30:00 [facility] 2022-01-04 Outpatient Laurie MARCELINO [facility] [id number] Univers 15:10:00 15:10:00 [facility]22-[facility]-04 2022-01-04 Outpatient Laurie MARCELINO [facility] [id number] Univers 15:10:00 15:10:00 WU ity [facility] 2022-01-04 2022-01-04 Outpatient R CHARI [facility] [id number] Univers 15:10:00 15:10:00 WU ity [facility] 2021-12-31 2021-12-31 Refs[facility]eta [facility] 1.2.443.850 [id number] Univers 00:00:00 00:00:00 Linda SPECIALTY 350.1.13.10 [place] [phone] Pr hollis FREEMAN [address] [facility] 2021-12-30 2021-12-30 Refsangeeta Ba[facility]UN[facility] 1.2.840.114 [id number] Univers 00:00:00 00:00:00 Srikanth PRIMARY 350.1.13.10 it y of C[place].2.686 [place] [facility] [phone] Pr sanjayshelby [address] [place] [address] 2021-12-29 2021-12-29 Outpatient R SRIKANTH RODRIGUEZ [facility] [id number] Univers 10:52:50 23:59:00 ity [facility] 2021-12-29 2021-12-29 [facility] Srikanth Rodriguez [facility] 1.2.840.114 [id number] Univers 10:52:50 23:59:00 Encounter [facility] 350.1.13.10 ity of CLINICS [place].2.[place] [id number] [facility] [address] 2021-12-29 2021-12-29 Outpatient R SRIKANTH RODRIGUEZ [facility] [id number] Univers 10:52:50 23:59:00 ity [facility] 2021-12-29 2021-12-29 Outpatient R MICHAEL SRIKANTH [facility] [id number] Univers 00:00:00 00:00:00 ity [facility] 2021-12-28 2021-12-28 Outpatient R JONNA [facility] [id number] Univers 13:00:00 13:00:00 ADELFO ity [facility] 2021-12-28 2021-12-28 Outpatient Laurie COYLE [facility] [id number] Univers 13:00:00 13:00:00 ADELFO quiñones [facility] 2021-12-28 2021-12-28 Outpatient Laurie COYLE [facility] [id number] Univers 13:00:00 13:00:00 ADELFO quiñones [facility] 2021-12-28 2021-12-28 Telephone Ritchie, [facility] 1.2.840.114 [id number] Univers 00:00:00 00:00:00 [facility] 350.1.13.10 i ty of [facility] [place].2.7.2.[place] [id number] [address] 2021-12-26 2021-12-26 Laboratory Only, [facility] 1.2.840. 114 [id number] Univers 13:15:00 13:30:00 Only Srikanth Rey [facility] 350.1.13.10 ity [facility] [place].2.7.2.[place] [id number] [facility] PRIMARY & [address] SPECIALTY CARE 2021-12-26 2021-12-26 Outpatient Laurie REY [facility] [id number] Univers 13:15:00 13:15:00 SRIKANTH lexi [facility] 2021-12-24 2021-12-24 Outpatient R EMBER [facility] [id number] Univers 14:00:00 15:18:05 ANGEL [facility] 2021-12-24 2021-12-24 Office Pgy3 UNIVERSIT 1.2.449.143 [id number] Univers 14:00:00 15:18:05 Visit VelezAngel campbell [facility] 350.1.13.10 ity of [facility] 4.2.7.2.686 [place] [id number] [address] 2021-12-24 2021-12-24 Outpatient Laurie VELEZ [facility] [id number] Univers 14:00:00 15:18:05 ANGEL lexi [facility] 2021-12-24 2021-12-24 Outpatient Laurie VELEZ [facility] [id number] Univers 14:00:00 15:18:05 ANGEL ity of [facility] 2021-12-24 2021-12-24 Orders Doctor WU 1.2.840.114 [id number] Univers 00:00:00 00:00:00 Only Unassigned, GILDA 350.1.13.10 ity of [place] [facility] 4.2.7.2.686 Mir as [id number] [facility] [address] 2021-12-23 2021-12-23 Outpatient R MICHAEL [facility] [id number] Univers 10:00:00 10:00:00 ity of [facility] 2021-12-23 2021-12-23 Outpatient R MICHAEL [facility] [id number] Univers 10:00:00 10:00:00 ity of [facility] 2021-12-23 2021-12-23 Outpatient R MICHAEL [facility] [id number] Univers 10:00:00 10:00:00 ity [facility] 2021-12-23 2021-12-23 Outpatient R MICHAEL [facility] [id number] Univers 10:00:00 10:00:00 ity of [facility] 2021-12-18 2021-12-18 Telephone Shruti [facility] 1.2.840.114 [id number] Univers 00:00:00 00:00:00 Srikanth PRIMARY 350.1.13.10 it y of CARE 4.2.7.2.[place] [id number] [facility] [address] 2021-12-08 2021-12-08 Outpatient R ADRIANA [facility] [id number] Univers 13:51:10 23:59:00 ANIL ity of [facility] 2021-12-08 2021-12-08 [facility] SANTANA Wright 1.2.840.114 [id number] Univers 13:51:10 23:59:00 Encounter Anil Y HEALTH 350.1.13.10 ity of CL[place]ICS [place] [id number] [facility] [address] 2021-12-08 2021-12-08 Nurse 3Krista Adult Infusion Nurse [facility] 1.2.840.114 [id number] Univers 10:30:00 12:00:00 Visit Srikanth Rodriguez [place] SPECIALTY 350.1.13.1 0 it[place] of C[place] [phone] Pr dicshelby VICTORY [address] [facility] 2021-12-08 2021-12-08 Outpatient R SRIKANTH RODRIGUEZ [facility] [id number] Univers 10:30:00 10:30:00 ity [facility] 2021-12-08 2021-12-08 Outpatient R MICHAEL [facility] [id number] Univers 10:30:00 10:30:00 ity [facility] 2021-12-08 2021-12-08 Outpatient R MICHAEL SRIKANTH [facility] [id number] Univers 10:30:00 10:30:00 ity [facility] 2021-12-08 2021-12-08 Outpatient R ADRIANA [facility] [id number] Univers 00:00:00 00:00:00 ANIL ity [facility] 2021-12-07 2021-12-07 [facility] [id number] Univers 16:50:10 23:59:00 [facility] 2021-12-07 2021-12-07 [facility] [id number] Univers 16:50:10 23:59:00 [facility] 2021-12-07 2021-12-07 [facility] [id number] Univers 16:50:10 23:59:00 [facility] 2021-12-07 2021-12-07 [facility] 1.2.840.114 [id number] Univers 16:50:00 23:59:00 Encounter Linda SPECIALTY 350.1.13.10 ity [place] C[place] [id number] Pr sanjayshelby PETE [address] [facility] 2021-12-07 2021-12-07 [facility] [id number] Univers 16:30:00 17:23:01 LINDA ity [facility] 2021-12-07 2021-12-07 Office Yony [facility] 1.2.488.926 [id number] Univers 16:30:00 17:23:01 Visit Linda KAPLAN 350.1.13.10 ity of C[place].2.[place] AT [phone] Pr hollis [address] 2021-12-07 2021-12-07 Outpatient R YONY [facility] [id number] Univers 16:30:00 16:30:00 LINDA ity [facility] 2021-12-07 2021-12-07 Telephone SANTANA Hahn 1.2.840.114 [id number] Univers 00:00:00 00:00:00 [facility] 350.1.13.10 i ty of CLINICS 4.[place] [phone] [facility] [address] 2021-12-04 2021-12-04 Office Grace [facility] 1.2.840.114 [id number] Univers 13:45:00 14:15:00 Visit Joseph ZIMMERMAN 350.1.13.10 i ty of [place] [id number] [facility] [address] 2021-12-04 2021-12-04 Outpatient R GRACE [facility] [id number] Univers 13:45:00 13:45:00 JOSEPH quiñones [facility] 2021-12-04 2021-12-04 Ancillary Ami Hanna [facility] 1.2 .840.114 [id number] Univers 13:00:00 13:45:00 Visit Neva Palma 350.1.13.1 0 it[place] of [place] [id number] [facility] [address] 2021-12-04 2021-12-04 Orders Doctor REGAN 1.2.840.114 [id number] Univers 00:00:00 00:00:00 Only Unassigned, GILDA 350.1.13.10 ity of [facility] 4.2.7.2.686 Mir as [id number] [facility] [address] 2021-12-02 2021-12-02 Telephone SANTANA Hahn 1.2.840.114 [id number] Univers 00:00:00 00:00:00 Jacqui Y HEALTH 350.1.13.10 i ty of CLINICS [place] [id number] [facility] [address] 2021-12-02 2021-12-02 Telephone Krista Jacob [facility] 1.2.881.817 [id number] Univers 00:00:00 00:00:00 Adult SPECIALTY 350.1.13.10 ity of Infusion CARE 4.2.7.2.686 Mir as Nurse CENTER AT [phone] Pr sanjayshelby FREEMAN [facility] 2021-12-01 2021-12-01 Outpatient Laurie COYLE [facility] [id number] Univers 14:45:00 15:51:06 ADELFO quiñones [facility] 2021-12-01 2021-12-01 Ancillary Celia Shaikh [facility] 1.2. 840.114 [id number] Univers 14:45:00 15:51:06 Visit Adelfo Coyle [facility] 350.1.13.10 ity of [facility] [place].2.7.2.[place] [phone] [address] ([facility]) 2021-12-01 2021-12-01 Outpatient Laurie COYLE [facility] [id number] Univers 14:45:00 15:51:06 ADELFO quiñones [facility] 2021-12-01 2021-12-01 Outpatient Laurie COYLE [facility] [id number] Univers 14:45:00 15:51:06 AEDLFO quiñones [facility] 2021-12-01 2021-12-01 Outpatient Laurie COYLE [facility] [id number] Univers 14:45:00 15:51:06 ADELFO quiñones [facility] 2021-12-01 2021-12-01 Outpatient Laurie COYLE [facility] [id number] Univers 14:45:00 14:45:00 ADELFO quiñones [facility] 2021-12-01 2021-12-01 Outpatient R [facility] [id number] Univers 13:00:00 13:00:00 ity [facility] 2021-11-27 2021-11-27 Outpatient R GRACE [facility] [id number] Univers 14:30:00 14:30:00 JOSEPH ity [facility] 2021-11-27 2021-11-27 Outpatient R GRACE [facility] [id number] Univers 14:30:00 14:30:00 JOSEPH ity [facility] 2021-11-27 2021-11-27 Outpatient R GRACE [facility] [id number] Univers 14:30:00 14:30:00 JOSEPH y [facility] 2021-11-27 2021-11-27 Outpatient R GRACE [facility] [id number] Univers 14:30:00 14:30:00 JOSEPH [facility] 2021-11-27 2021-11-27 Outpatient R GRACE [facility] [id number] Univers 14:30:00 14:30:00 [facility] 2021-11-27 2021-11-27 Outpatient R [facility] [id number] Univers 11:00:00 11:00:00 ity [facility] 2021-11-27 2021-11-27 Outpatient R [facility] [id number] Univers 11:00:00 11:00:00 ity [facility] 2021-11-27 2021-11-27 Outpatient R [facility] [id number] Univers 11:00:00 11:00:00 ity [facility] 2021-11-27 2021-11-27 Outpatient R [facility] [id number] Univers 11:00:00 11:00:00 ity [facility] 2021-11-27 2021-11-27 Outpatient R [facility] [id number] Univers 11:00:00 11:00:00 ity [facility] 2021-11-25 2021-11-25 Outpatient R MICHAEL SRIKANTH [facility] [id number] Univers 11:30:00 11:30:00 ity [facility] 2021-11-25 2021-11-25 Outpatient R SRIKANTH RODRIGUEZ [facility] [id number] Univers 11:30:00 11:30:00 ity [facility] 2021-11-25 2021-11-25 Outpatient R SRIKANTH RODRIGUEZ [facility] [id number] Univers 11:30:00 11:30:00 ity [facility] 2021-11-25 2021-11-25 Outpatient R MICHAEL [facility] [id number] Univers 11:30:00 11:30:00 ity [facility] 2021-11-25 2021-11-25 Outpatient R MICHAEL SRIKANTH [facility] [id number] Univers 11:30:00 11:30:00 ity [facility] 2021-11-25 2021-11-25 Outpatient R MICHAEL [facility] [id number] Univers 11:30:00 11:30:00 ity [facility] 2021-11-25 2021-11-25 Patient Michael [facility] 1.2.071.670 [id number] Univers 00:00:00 00:00:00 [facility] 350.1.13.10 [place] [phone] Pr dicshelby FREEMAN [facility] [facility] 2021-11-24 2021-11-24 Office Shruti [facility] 1.2.840.114 [id number] Univers 13:20:00 15:10:08 Visit [place] PRIMARY 350.1.13. 10 ity of C[place].2.686 [place] [id number] Pr dical [address] 2021-11-24 2021-11-24 Outpatient R [facility] [id number] Univers 13:20:00 15:10:08 , EL quiñones [facility] 2021-11-24 2021-11-24 Outpatient R [facility] [id number] Univers 13:20:00 15:10:08 , EL quiñones [facility] 2021-11-24 2021-11-24 Outpatient R [facility] [id number] Univers 13:20:00 15:10:08 , EL quiñones [facility] 2021-11-24 2021-11-24 Outpatient R [facility] [id number] Univers 13:20:00 15:10:08 , EL quiñones [facility] 2021-11-24 2021-11-24 Outpatient R [facility] [id number] Univers 13:20:00 13:20:00 , EL quiñones [facility] 2021-11-16 2021-11-16 Outpatient R CHARI, [facility] [id number] Univers 16:20:00 18:00:09 WU [facility] 2021-11-16 2021-11-16 Office [facility] 1.2.686.696 [id number] Univers 16:20:00 18:00:09 Visit Wu [facility] 350.1.13.10 it y of CARE 4.2.7.2.686 Epifanio JAUREGUI [id number] [address] 2021-11-16 2021-11-16 Outpatient R FAILJESUSITA, [facility] [id number] Univers 16:20:00 18:00:09 WU lexi [facility] 2021-11-16 2021-11-16 Outpatient R FAILJESUSITA, [facility] [id number] Univers 16:20:00 16:20:00 WU lexi [facility] 2021-11-16 2021-11-16 Outpatient R FAILJESUSITA, [facility] [id number] Univers 16:20:00 16:20:00 WU [facility] 2021-11-16 2021-11-16 Outpatient R FAILLALIZETTE, [facility] [id number] Univers 16:20:00 16:20:00 WU [facility] 2021-11-16 2021-11-16 Telephone [facility] 1.2.546.993 [id number] Univers 00:00:00 00:00:00 [facility] 350.1.13.10 it y of CLEAR 4.2.7.2.686 Epifanio NUNES [id number] Medi stan MEDICAL [address] OFFICE BUILDING 2021-11-11 2021-11-11 Nurse 3, Krista Adult Infusion Nurse [facility] 1.2.840.114 [id number] Univers 11:30:00 13:00:00 Visit Srikanth Rodriguez SPECIALTY 350.1.13.1 0 ity of CARE 4.2.7.2.686 [facility] AT [phone] Pr hollis [place] [address] [facility] 2021-11-11 2021-11-11 Outpatient R SRIKANTH RODRIGUEZ [facility] [id number] Univers 11:30:00 11:30:00 ity [facility] 2021-11-11 2021-11-11 Outpatient R SRIKANTH RODRIGUEZ [facility] [id number] Univers 11:30:00 11:30:00 ity [facility] 2021-11-11 2021-11-11 Outpatient R SRIKANTH RODRIGUEZ [facility] [id number] Univers 11:30:00 11:30:00 ity [facility] 2021-11-11 2021-11-11 Outpatient R SRIKANTH RODRIGUEZ [facility] [id number] Univers 11:30:00 11:30:00 ity [facility] 2021-11-11 2021-11-11 Outpatient R SRIKANTH RODRIGUEZ [facility] [id number] Univers 11:30:00 11:30:00 ity [facility] 2021-11-11 2021-11-11 Outpatient R SRIKANTH RODRIGUEZ [facility] [id number] Univers 11:30:00 11:30:00 ity [facility] 2021-11-11 2021-11-11 Outpatient R SRIKANTH RODRIGUEZ [facility] [id number] Univers 11:30:00 11:30:00 ity [facility] 2021-11-10 2021-11-10 Outpatient R ADRIANA [facility] [id number] Univers 11:00:00 23:59:00 ANIL ity [facility] 2021-11-10 2021-11-10 [facility] LEONOR Wright 1.2.840.114 [id number] Univers 11:00:00 23:59:00 Encounter Anil H 350.1.13.10 ity of BUILDING 4.2.7.2.686 Mir as [id number] [facility] [address] 2021-11-04 2021-11-04 Office DON WrightIT 1.2.891.780 [id number] Univers 15:40:00 16:00:00 Visit [facility] 350.1.13.10 i ty of CLINICS [place] [id number] [facility] [address] 2021-11-04 2021-11-04 Outpatient R ADRIANA [facility] [id number] Univers 15:40:00 15:40:00 ANIL ity of [facility] 2021-10-31 2021-10-31 Emergency [facility] [id number] Univers 15:18:00 [facility]:40:[facility] 2021-10-31 2021-10-31 Emergency Mario, TRAUMA 1.2.520.581 [id number] Univers 15:18:00 16:40:00 [facility] 350.1.13.10 i ty of [place] [id number] [facility] [address] 2021-10-31 2021-10-31 Emergency X [facility] [id number] Univers 15:18:00 16:40:00 [facility] 2021-10-31 2021-10-31 Nurse WU Zhu 1.2.840.114 [id number] Univers 00:00:00 00:00:00 Triage Yuly ARELLANO 350.1.13.10 it y of HOSPITAL 4.2.7.2.686 Mir as [id number] [facility] [address] 2021-10-28 2021-10-28 Nurse Krista Jacob Adult Infusion Nurse [facility] 1.2.840.114 [id number] Univers 13:00:00 14:30:00 Visit Srikanth Rodriguez SPECIALTY 350.1.13.1 0 ity of C[place] AT [id number] Pr hollis FREEMAN [address] [place] [address] 2021-10-28 2021-10-28 Outpatient R SRIKANTH RODRIGUEZ [facility] [id number] Univers 13:00:00 [facility] 2021-10-28 2021-10-28 Outpatient R SRIKANTH RODRIGUEZ [facility] [id number] Univers 13:00:00 13:00:[facility] 2021-10-28 2021-10-28 Outpatient R MICHAEL SRIKANTH [facility] [id number] Univers 13:00:00 13:00:[facility] 2021-10-28 2021-10-28 Outpatient R MICHAEL [facility] [id number] Univers 13:00:00 13:00:00 [facility] 2021-10-28 2021-10-28 Outpatient R MICHAEL [facility] [id number] Univers 13:00:00 13:00:[facility] 2021-10-28 2021-10-28 Outpatient R MICHAEL [facility] [id number] Univers 13:00:00 13:00:00 [facility] 2021-10-28 2021-10-28 Outpatient R MICHAEL [facility] [id number] Univers 13:00:00 13:00:00 [facility] 2021-10-28 2021-10-28 Outpatient R MICHAEL [facility] [id number] Univers 13:00:00 13:00:00 [facility] 2021-10-26 2021-10-26 Office LUIS FELIX 1.2.840.114 [id number] [facility] 14:09:00 15:55:34 Visit KAREL AMBULATOR 350.1.13.21 College Y 0.2.7.2.686 [id number] [facility] corine 800 e 2021-10-21 2021-10-21 Outpatient R ADRIANA [facility] [id number] Univers 16:20:00 16:20:00 [facility] 2021-10-20 2021-10-20 Outpatient R CHARI [facility] [id number] Univers 18:49:06 23:59:00 WU quiñones [facility] 2021-10-20 2021-10-20 [facility] 1.2.840.114 [id number] Univers 18:49:06 23:59:00 Encounter Wu SPECIALTY 350.1.13.10 ity of CARE 4.2.7.2.686 [place] [facility] AT [phone] [facility] [address] [place] [address] 2021-10-20 2021-10-20 [facility] [id number] Univers 18:49:06 23:59:00 WU quiñones [facility] 2021-10-20 2021-10-20 Outpatient Laurie [facility] [id number] Univers 18:49:06 23:59:00 WU quiñones [facility] 2021-10-20 2021-10-20 Outpatient [facility] [id number] Univers 18:49:06 23:59:00 [facility] 2021-10-20 2021-10-20 Telephone [facility] 1.2.374.808 [id number] Univers 00:00:00 00:00:00 [facility] HEALTH 350.1.13.10 it y of CLEAR 4.2.7.2.686 [facility] [id number] [place] [id number] OFFICE BUILDING 2021-10-14 2021-10-14 Outpatient R SRIKANTH RODRIGUEZ [facility] [id number] Univers 11:30:00 11:30:00 ity [facility] 2021-10-14 2021-10-14 Outpatient R MICHAEL [facility] [id number] Univers 11:30:00 11:30:00 ity [facility] 2021-10-14 2021-10-14 Outpatient R MICHAEL [facility] [id number] Univers 11:30:00 11:30:00 ity [facility] 2021-10-14 2021-10-14 Outpatient R MICHAEL [facility] [id number] Univers 11:30:00 11:30:00 ity of [facility] 2021-10-14 2021-10-14 Outpatient R SRIKANTH RODRIGUEZ [facility] [id number] Univers 11:30:00 11:30:00 ity [facility] 2021-10-14 2021-10-14 Outpatient R SRIKANTH RODRIGUEZ [facility] [id number] Univers 11:30:00 11:30:[facility] 2021-10-14 2021-10-14 Outpatient R MICHAEL SRIKANTH [facility] [id number] Univers 11:30:00 11:30:00 [facility] 2021-10-05 2021-10-05 Office [facility] 1.2.391.271 [id number] Univers 16:07:34 17:08:08 Visit Wu [facility] 350.1.13.10 it y of CARE 4.2.7.2.686 Epifanio JAUREGUI [id number] [address] 2021-10-05 2021-10-05 Outpatient R FAILLACE, [facility] [id number] Univers 15:50:00 17:08:08 [facility] 2021-10-05 2021-10-05 Outpatient R FAILLALIZETTE, [facility] [id number] Univers 15:50:00 17:08:08 [facility] 2021-10-05 2021-10-05 Outpatient R FAILJESUSITA [facility] [id number] Univers 15:50:00 15:50:00 [facility] 2021-09-30 2021-09-30 Outpatient R SRIKANTH RODRIGUEZ [facility] [id number] Univers 11:30:00 14:28:[facility]-09-30 2021-09-30 Outpatient R SRIKANTH RODRIGUEZ [facility] [id number] Univers 11:30:00 14:28:09 [facility] 2021-09-30 2021-09-30 Outpatient R SRIKANTH RODRIGUEZ [facility] [id number] Univers 11:30:00 14:28:09 [facility] 2021-09-30 2021-09-30 Outpatient R SRIKANTH RODRIGUEZ [facility] [id number] Univers 11:30:00 14:28:09 [facility] 2021-09-30 2021-09-30 Outpatient R MICHAEL [facility] [id number] Univers 11:30:00 14:28:09 ity [facility] 2021-09-30 2021-09-30 Nurse 3Krista Adult Infusion Nurse [facility] [id number] Univers 11:13:44 12:43:44 Visit Srikanth Rodriguez [id number] [facility] AT [phone] Pr sanjayshelby [facility]MI[facility] 2021-09-30 2021-09-30 Outpatient R MICHAEL [facility] [id number] Univers 11:30:00 11:30:00 ity [facility] 2021-09-30 2021-09-30 Outpatient R MICHAEL [facility] [id number] Univers 11:30:00 11:30:00 ity [facility] 2021-09-21 2021-09-21 Outpatient R UNKNOWN, ATTENDING [facility] [id number] Univers 10:00:00 10:00:00 DAVID DELA CRUZ ity [facility] 2021-09-21 2021-09-21 [facility] 1.2.840. 114 [id number] Univers 09:30:51 09:45:51 Care Unknown, Attending [facility] 350.1.13.10 [facility] 4.2.7.2.686 [facility] [id number] [facility] PRIMARY & [facility] SPECIALTY CARE 2021-09-16 2021-09-16 Outpatient R MICHAEL [facility] [id number] Univers 11:30:00 11:30:00 ity [facility] 2021-09-16 2021-09-16 Outpatient R MICHAEL [facility] [id number] Univers 11:30:00 11:30:00 ity [facility] 2021-09-16 2021-09-16 Outpatient R MICHAEL [facility] [id number] Univers 11:30:00 11:30:00 ity [facility] 2021-09-16 2021-09-16 Outpatient R MICHAEL [facility] [id number] Univers 11:30:00 11:30:00 ity [facility] 2021-09-16 2021-09-16 Outpatient R MICHAEL [facility] [id number] Univers 11:30:00 11:30:00 ity [facility] 2021-09-16 2021-09-16 Outpatient R MICHAEL [facility] [id number] Univers 11:30:[facility] 2021-09-16 Outpatient R MICHAEL [facility] [id number] Univers 11:30:00 11:30:[facility] 2021-09-15 2021-09-15 [facility] 1.2.685.969 [id number] Univers 14:48:46 15:18:[address] [facility] SPECIALTY 350.1.13.10 ity of [facility] 4.2.7.2.686 [facility] AT [id number] [address] 2021-09-15 2021-09-15 Outpatient R MICHAEL [facility] [id number] Univers 15:00:00 [facility]:00:[facility] 2021-09-15 2021-09-15 Outpatient R MICHAEL [facility] [id number] Univers 15:00:00 [facility]:00:[facility] 2021-09-15 2021-09-15 Outpatient R MICHAEL [facility] [id number] Univers 15:00:00 [facility]:00:[facility] 2021-09-14 2021-09-14 [facility] [id number] Univers 08:10:00 08:10:00 [facility] 2021-09-05 2021-09-05 [facility] 1.2.840.114 [id number] Univers 00:00:00 00:00:00 Srikanth PRIMARY 350.1.13.10 it y of CARE 4.[place].7.2.686 [place] [facility] [id number] Pr hollis [address] 2021-09-02 2021-09-02 Nurse 3, Krista Adult Infusion Nurse [facility] 1.2.840.114 [id number] Univers 11:41:28 13:11:28 Visit u, Srikanth [facility] SPECIALTY 350.1.13.1 0 [place].686 [place] [id number] Pr hollis FREEMAN 053 [facility] 2021-09-02 2021-09-02 Nurse 3, Krista Adult Infusion Nurse [facility] 1.2.840.114 [id number] Univers 11:41:28 13:11:28 Visit [facility], Srikanth Robertss SPECIALTY 350.1.13.1 0 [place] [id number] Pr hollis FREEMAN 3 [facility] 2021-09-02 2021-09-02 Outpatient R GOU, [facility] [id number] Univers 11:30:00 11:30:00 ity [facility] 2021-09-02 2021-09-02 Outpatient R GOU, [facility] [id number] Univers 11:30:00 11:30:00 ity [facility] 2021-09-02 2021-09-02 Outpatient R GOU, [facility] [id number] Univers 11:30:00 11:30:00 ity [facility] 2021-09-02 2021-09-02 Outpatient R GOU, [facility] [id number] Univers 11:30:00 11:30:00 ity [facility] 2021-09-02 2021-09-02 Outpatient R GOU, [facility] [id number] Univers 11:30:00 11:30:00 ity [facility] 2021-09-02 2021-09-02 Outpatient R GOU, [facility] [id number] Univers 11:30:00 11:30:00 ity [facility] 2021-09-02 2021-09-02 Outpatient SRIKANTH HER [facility] [id number] Univers 11:30:00 11:30:00 ity [facility] 2021-09-02 2021-09-02 Outpatient SRIKANTH HER [facility] [id number] Univers 11:30:00 11:30:00 ity [facility] 2021-09-01 2021-09-01 Outpatient RAVEN [facility] [id number] [place] 15:52:29 15:52:29 ORE-OFDeclanOLUW He alth ATOMI 2021-09-01 2021-09-01 Office Raven [facility] 6400 1.2.857.222 [id number] [place] 15:50:21 15:50:34 Visit [facility] [address] 350.1.13.58 Health atomi 9.2.7.2.686 [id number] 2021-09-01 2021-09-01 Office BRIT Brewer 6400 1.2.950.493 [id number] [place] 15:50:21 15:50:34 Visit [facility] [address] 350.1.13.58 Health atomi 9.2.7.2.686 [id number] 2021-09-01 2021-09-01 Outpatient [facility] [id number] [place] 14:35:21 14:35:21 Health 2021-09-01 2021-09-01 Outpatient [facility] [id number] [place] 14:35:21 14:35:21 Health 2021-08-19 2021-08-19 Nurse 3Krista Adult Infusion Nurse [facility] 1.2.840.114 [id number] Univers 11:38:04 13:08:04 Visit Srikanth Rodriguez SPECIALTY 350.1.13.1 0 ity of CARE 4.2.7.2.686 [facility] AT [id number] Pr sanjayshelby [address] 2021-08-19 2021-08-19 Outpatient SRIKANTH HER [facility] [id number] Univers 11:30:00 11:30:00 ity [facility] 2021-08-19 2021-08-19 Outpatient R GOU, [facility] [id number] Univers 11:30: 11:30:00 ity of [facility] 2021-08-19 2021-08-19 Outpatient R GOU, [facility] [id number] Univers 11:30 11:30:00 ity [facility] 2021-08-19 2021-08-19 Outpatient R GOU, [facility] [id number] Univers 11:30: 11:30:00 ity [facility] 2021-08-19 2021-08-19 Outpatient R GOU, [facility] [id number] Univers 11:30 11:30:00 ity [facility] 2021-08-19 2021-08-19 Outpatient R GOU, [facility] [id number] Univers 11:30 11:30:00 ity [facility] 2021-08-19 2021-08-19 Outpatient R GOU, [facility] [id number] Univers 11:30:00 11:30:00 ity [facility] 2021-08-19 2021-08-19 Outpatient R GOU, [facility] [id number] Univers 11:30 11:30:00 ity [facility] 2021-08-19 2021-08-19 Outpatient R GOU, [facility] [id number] Univers 11:30 11:30:00 ity [facility] 2021-08-15 2021-08-15 [facility] 1.2.840.114 [id number] Univers 00:00:00 00:00:00 Paz POLLOCK 350.1.13.10 [facility] 4.2.7.2.686 [facility] [id number] [facility] AND ABREU [address] [facility] 2021-08-13 2021-08-13 Outpatient R IRENEHBCASSIE, [facility] [id number] Univers 13:50:00 13:50:00 NIK ity [facility] 2021-08-12 2021-08-12 Telephone [facility] 1.2.840.114 [id number] Univers 00:00:00 00:00:00 [place] SPECIALTY 350.1.13.10 it[place] C[place].2.[place] [id number] Pr hollis FREEMAN 072 [facility] 2021-08-12 2021-08-12 Refsangeeta [facility]UN[facility] 1.2.840.114 [id number] Univers 00:00:00 00:00:00 Nyajuok PRIMARY 350.1.13.10 it y of CARE 4.2.7.2.686 [place] [facility] [id number] Pr hollis [address] [place] [address] 2021-08-12 2021-08-12 Patient [facility] 1.2.877.821 [id number] Univers 00:00:00 00:00:00 Secure Msg [place] SPECIALTY 350.1.13.10 ity of CARE 4.2.7.2.686 [facility] AT [id number] Pr hollis FREEMAN [address] [place] [address] 2021-08-05 2021-08-05 Outpatient R GOU, [facility] [id number] Univers 11:30:00 15:46:57 ity of [facility] 2021-08-05 2021-08-05 Outpatient R GOU, [facility] [id number] Univers 11:30:00 15:46:57 ity of [facility] 2021-08-05 2021-08-05 Outpatient R GOU, [facility] [id number] Univers 11:30:00 15:46:57 ity of [facility] 2021-08-05 2021-08-05 Outpatient R GOU, [facility] [id number] Univers 11:30:00 11:30:00 ity of [facility] 2021-08-04 2021-08-04 Rolanda [facility] 1.2.840.114 [id number] Univers 00:00:00 00:00:00 Srikanth PRIMARY 350.1.13.10 it y of CARE 4.2.7.2.686 [place] [id number] Pr hollis [address] 2021-07-29 2021-07-29 Office LUIS Felix 1.2.840.114 [id number] [facility] 13:08:54 15:43:56 Visit [place] AMBULATOR 350.1.13.21 [place] Fredy 0.2.7.2.686 of [id number] [facility] 800 e 2021-07-28 2021-07-28 [facility] 1.2.840.114 [id number] Univers 13:46:32 23:59:00 Encounter Cory SPECIALTY 350.1.13.10 ity of [facility] [place].2.7.2.686 [place] [id number] Pr hollis FREEMAN 809 [facility] 2021-07-28 2021-07-28 [facility] 1.2.840.114 [id number] Univers 13:46:32 23:59:00 Encounter Cory SPECIALTY 350.1.13.10 ity of [facility] [place].2.7.2.686 [place] [id number] Pr hollis FREEMAN 809 [facility] 2021-07-28 2021-07-28 Outpatient [facility] [id number] Univers 13:46:32 23:59:00 CORY ity [facility] 2021-07-28 2021-07-28 Outpatient [facility] [id number] Univers 13:46:32 23:59:00 CORY ity of [facility] 2021-07-28 2021-07-28 Outpatient [facility] [id number] Univers 13:46:32 23:59:00 CORY ity [facility] 2021-07-28 2021-07-28 Outpatient [facility] [id number] Univers 13:46:32 23:59:00 CORY ity [facility] 2021-07-28 2021-07-28 Outpatient [facility] [id number] Univers 13:46:32 23:59:00 CORY quiñones [facility] 2021-07-28 2021-07-28 [facility] [id number] Univers 13:46:32 23:59:00 CORY quiñones [facility] 2021-07-28 2021-07-28 [facility] 1.2.727.988 [id number] Univers 13:36:49 14:47:29 Visit Cory SPECIALTY 350.1.13.10 ity of [facility] CARE 4.2.7.2.[place] AT [id number] Pr hollis FREEMAN [address] [place] [address] 2021-07-28 2021-07-28 [facility] [id number] Univers 13:30:00 13:30:00 CORY quiñones [facility] 2021-07-28 2021-07-28 [facility] [id number] Univers 10:30:00 10:30:00 CORY quiñones [facility] 2021-07-27 2021-07-27 Telephone [facility] 1.2.840.114 [id number] Univers 00:00:00 00:00:00 [place] SPECIALTY 350.1.13.10 it[place] CARE [place].7.2.686 [place] [id number] Pr hollis FREEMAN [address] [place] [address] 2021-07-27 2021-07-27 Telephone [facility] 1.2.840.114 [id number] Univers 00:00:00 00:00:00 [place] SPECIALTY 350.1.13.10 [place] C[place].2.686 [place] AT [id number] Pr hollis FREEMAN [address] [place] [address] 2021-07-24 2021-07-24 Telephone [facility] 1.2.840.114 [id number] Univers 00:00:00 00:00:00 [place] SPECIALTY 350.1.13.10 [place] of CARE [place].2.[place] AT [id number] Pr hollis FREEMAN 072 [facility] 2021-07-24 2021-07-24 Telephone Srikanth Rodriguez [facility] 1.2.840.114 [id number] Univers 00:00:00 00:00:00 [place] SPECIALTY 350.1.13.10 it[place] of CARE 4.[place].2.686 [place] [id number] Pr hollis FREEMAN 072 [facility] 2021-07-23 2021-07-23 Telephone [facility] 1.2.840.114 [id number] Univers 00:00:00 00:00:00 Srikanth PRIMARY 350.1.13.10 it [place] C[place].2.686 [place] [id number] Pr hollis [address] 2021-07-23 2021-07-23 Telephone [facility] 1.2.840.114 [id number] Univers 00:00:00 00:00:00 Srikanth PRIMARY 350.1.13.10 it [place] CARE 4.2.7.2.686 [place] [id number] Pr hollis [address] 2021-07-22 2021-07-22 Outpatient R GOLacie, [facility] [id number] Univers 11:30:00 14:56:26 ity [facility] 2021-07-22 2021-07-22 Outpatient R MICHAEL, [facility] [id number] Univers 11:30:00 14:56:26 ity [facility] 2021-07-22 2021-07-22 Outpatient R GOU, [facility] [id number] Univers 11:30:00 14:56:26 ity [facility] 2021-07-22 2021-07-22 Nurse 3Krista Adult Infusion Nurse [facility] 1.2.840.114 [id number] Univers 11:50:25 13:20:25 Visit Srikanth Rodriguezs SPECIALTY 350.1.13.1 0 it[place] of CARE [place].2.7.2.686 [place] [id number] Pr hollis FREEMAN 053 [facility] 2021-07-22 2021-07-22 Nurse 3, Krista Adult Infusion Nurse [facility] 1.2.840.114 [id number] Univers 11:50:25 13:20:25 Visit Srikanth Rodriguez SPECIALTY 350.1.13.1 0 it[place] of C[place].2.7.2.686 [place] AT [id number] Pr hollis FREEMAN [address] [place] [address] 2021-07-22 2021-07-22 Outpatient SRIKANTH HER [facility] [id number] Univers 11:30:00 11:30:00 ity of [facility] 2021-07-10 2021-07-10 Hospital Jama Willams [facility] 1.2.840.114 [id number] Univers 08:50:12 23:59:00 Encounter [facility] 350.1.13.10 ity of CLINICS 4.2.7.2.686 [place] [id number] [facility] [address] 2021-07-10 2021-07-10 Outpatient JAMA BENNETT [facility] [id number] Univers 08:50:12 23:59:00 ity of [facility] 2021-07-10 2021-07-10 Outpatient JAMA BENNETT [facility] [id number] Univers 08:50:12 23:59:00 ity of [facility] 2021-07-10 2021-07-10 Outpatient JAMA BENNETT [facility] [id number] Univers 08:50:12 23:59:00 ity of [facility] 2021-07-10 2021-07-10 Outpatient JAMA BENNETT [facility] [id number] Univers 08:50:12 23:59:00 ity of [facility] 2021-07-10 2021-07-10 Outpatient JAMA BENNETT [facility] [id number] Univers 08:50:12 23:59:00 ity of [facility] 2021-07-10 2021-07-10 Outpatient JAMA BENNETT [facility] [id number] Univers 08:50:12 23:59:00 ity of [facility] 2021-07-10 2021-07-10 Outpatient JAMA BENNETT [facility] [id number] Univers 08:50:12 23:59:00 ity of [facility] 2021-07-10 2021-07-10 [facility] Jama Willams [facility] 1.2.840.114 [id number] Univers 08:50:12 23:59:00 Encounter [facility]a [facility] 350.1.13.10 ity of CLINICS 4.2.7.2.686 [place] [id number] [facility] [address] 2021-07-10 2021-07-10 Outpatient R JAMA WILLAMS [facility] [id number] Univers 00:00:00 00:00:00 ity of [facility] 2021-07-08 2021-07-08 Outpatient R SRIKANTH RODRIGUEZ [facility] [id number] Univers 11:30:00 11:30:00 ity [facility] 2021-07-01 2021-07-01 Outpatient [facility] [id number] [place] 13:53:48 13:53:48 Health 2021-07-01 2021-07-01 Outpatient [facility] [id number] [place] 13:53:48 13:53:48 [facility] 2021-06-30 2021-06-30 Office Srikanth Bahena [facility] 1.2.840.114 [id number] Univers 13:27:56 14:42:52 Visit Linda Bhakta PRIMARY 350.1.13.10 it[place] of C[place].2.686 [place] [id number] [address] 2021-06-30 2021-06-30 Outpatient R YONY [facility] [id number] Univers 13:40:00 13:40:00 LINDA ity of [facility] 2021-06-26 2021-06-26 Outpatient R [facility] [id number] Univers 10:30:00 10:30:00 ity [facility] 2021-06-25 2021-06-25 Nurse Krista Jacob Adult Infusion Nurse [facility] 1.2.840.114 [id number] Univers 14:31:11 16:30:21 Visit Srikanth Rodriguez SPECIALTY 350.1.13.1 0 it[place] C[place].2.7.2.686 [place] AT [id number] Pr hollis FREEMAN [address] [facility] 2021-06-25 2021-06-25 Outpatient R SRIKANTH RODRIGUEZ [facility] [id number] Univers 14:30:00 [facility] 2021-06-25 Outpatient R GOUSRIKANTH [facility] [id number] Univers 14:30:00 16:30:[facility] 2021-06-25 2021-06-25 Outpatient R GOU, SRIKANTH [facility] [id number] Univers 14:30:00 16:30:[facility] 2021-06-25 2021-06-25 Outpatient R GOUSRIKANTH [facility] [id number] Univers 14:30:00 16:30:21 [facility] 2021-06-25 2021-06-25 Outpatient R PIERCEUSRIKANTH [facility] [id number] Univers 14:30:00 14:30:00 [facility] 2021-06-24 2021-06-24 Outpatient R MICHAEL SRIKANTH [facility] [id number] Univers 11:30:00 11:30:00 [facility] 2021-06-23 2021-06-23 Outpatient R LATTRIXIEAIS, [facility] [id number] Univers 15:00:00 15:00:00 [facility] 2021-06-23 2021-06-23 Outpatient R LATIOLAIS, [facility] [id number] Univers 15:00:00 15:00:00 [facility] 2021-06-23 2021-06-23 Outpatient R LATIOLAIS, [facility] [id number] Univers 15:00:00 15:00:00 [facility] 2021-06-23 2021-06-23 Outpatient R LATIOLAIS, [facility] [id number] Univers 15:00:00 15:00:00 [facility] 2021-06-23 2021-06-23 Outpatient R LATIOLAIS, [facility] [id number] Univers 15:00:00 15:00:00 LYRIC itlexi [facility] 2021-06-21 2021-06-22 Emergency Downs, TRAUMA 1.2.666.506 [id number] Univers 16:13:00 00:38:00 Judd CENTER 350.1.13.10 [place].2.[place] [id number] [address] 2021-06-21 2021-06-22 Emergency X DOWNS, [facility] ERT [id number] Univers 16:13:00 00:38:00 JUDD [facility] 2021-06-12 2021-06-12 Outpatient RAVEN [facility] [id number] [place] 20:39:31 20:39:31 WILLI craft ATOMI 2021-06-11 2021-06-11 Telephone [facility] 1.2.840.114 [id number] Univers 00:00:00 00:00:00 [facility] 350.1.13.10 [place].7.2.[place] AT [id number] Pr hollis FREEMAN [address] [place] [address] 2021-06-11 2021-06-11 Telephone [facility] 1.2.840.114 [id number] Univers 00:00:00 00:00:00 [place] SPECIALTY 350.1.13.10 it[place] of C[place].2.7.2.[place] AT [id number] Pr dicshelby FREEMAN [address] [place] [address] 2021-06-10 2021-06-10 Outpatient R SRIKANTH RODRIGUEZ [facility] [id number] Univers 11:30:00 11:30:00 ity [facility] 2021-06-08 2021-06-08 Outpatient [facility] [id number] Univers 13:40:00 13:40:00 ADELFO [facility] 2021-06-08 2021-06-08 Case [facility] 1.2.840.114 [id number] Univers 00:00:00 00:00:00 Management Giuseppe D [facility] 350.1.13.10 ity of [place].2.686 [place] [facility] [id number] [address] ([facility]) 2021-06-06 2021-06-06 Refill Yony [facility] 1.2.530.803 [id number] Univers 00:00:00 00:00:00 Linda PRIMARY 350.1.13.10 it y of CARE [place].2.7.2.686 [place] [facility] [id number] Pr dical [address] 2021-06-03 2021-06-03 Outpatient R DAPHNE [facility] [id number] Univers 14:45:00 14:45:00 JESS ity [facility] 2021-06-01 2021-06-01 Outpatient R PAN [facility] [id number] Univers 14:00:00 14:00:00 DENNIS ity [facility] 2021-05-29 2021-05-29 [facility] Srikanth Rodriguez 1.2.840.114 [id number] Univers 09:25:55 23:59:00 Encounter Clare Kim [facility] 350.1.13.10 ity of CLINICS 4.2.7.2.[place] [id number] [facility] [address] 2021-05-29 2021-05-29 Outpatient R SRIKANTH RODRIGUEZ [facility] [id number] Univers 00:00:00 00:00:00 ity [facility] 2021-05-27 2021-05-27 Outpatient R SRIKANTH RODRIGUEZ [facility] [id number] Univers 11:30:00 16:17:28 ity of [facility] 2021-05-27 2021-05-27 Outpatient R SRIKANTH RODRIGUEZ [facility] [id number] Univers 11:30:00 16:17:28 ity [facility] 2021-05-27 2021-05-27 Nurse Krista Jacob Adult Infusion Nurse [facility] 1.2.840.114 [id number] Univers 11:20:31 12:50:31 Visit Srikanth [facility] 350.1.13.1 0 ity of CARE 4.2.7.2.686 [place] AT [id number] Pr hollis FREEMAN 053 [facility] 2021-05-27 2021-05-27 Outpatient R SRIKANTH RODRIGUEZ [facility] [id number] Univers 11:30:00 11:30:00 ity [facility] 2021-05-20 2021-05-20 Unhairing Inspector Pcp-Lab [facility] 1.2.840.114 [id number] Univers 14:42:45 14:57:45 Visit El Milligan Laurie PRIMARY 350.1.13. 10 it[place] C[place].2.686 [place] [id number] Pr dicshelby [address] 2021-05-20 2021-05-20 Office Luz Mar [facility] 1.2.840.114 [id number] Univers 13:35:45 14:42:56 Visit Chel El Sullivan PRIMARY 350.1.13. 10 ity of CARE 4.2.7.2.686 [place] s PAVILLION [id number] Pr dicshelby [address] 2021-05-20 2021-05-20 Outpatient R CHEL [facility] [id number] Univers 14:00:00 14:00:00 , EL ity of [facility] 2021-05-19 2021-05-19 Outpatient R YAMILE RODRIGUEZIC [facility] [id number] Univers 00:00:00 00:00:00 ity [facility] 2021-05-13 2021-05-13 Outpatient R PIERCELacieYAMILEIC [facility] [id number] Univers 11:30:00 17:05:34 ity of [facility] 2021-05-13 2021-05-13 Outpatient R PIERCELacie SRIKANTH [facility] [id number] Univers 11:30:00 17:05:34 ity of [facility] 2021-05-13 2021-05-13 Nurse Krista Jacob Adult Infusion Nurse [facility] 1.2.840.114 [id number] Univers 10:42:19 13:52:19 Visit Srikanth Rodriguez SPECIALTY 350.1.13.1 0 it[place] of C[place].2.[place] AT [id number] Pr dicshelby [facility] [address] [facility] 2021-05-13 2021-05-13 Outpatient R PIERCELacie SRIKANTH [facility] [id number] Univers 11:30:00 11:30:00 ity [facility] 2021-05-13 2021-05-13 Outpatient R JONNA [facility] [id number] Univers 08:00:00 08:00:00 ADELFO ity [facility] 2021-05-10 2021-05-10 [facility] [id number] Univers 00:00:00 00:00:00 Linda PRIMARY 350.1.13.10 [place] [id number] Pr dicshelby [address] 2021-05-01 2021-05-01 Office Luz Mar [facility] [id number] Univers 12:37:29 13:58:03 Visit Shaji Nunez PRIMARY 350.1.13.10 [place] [id number] Pr dical [address] 2021-05-01 2021-05-01 Outpatient R ENRIQUE [facility] [id number] Univers 13:00:00 13:00:00 SHAJI [facility] 2021-05-01 2021-05-01 Emergency Chrissy, TRAUMA [id number] Univers 02:02:00 05:00:00 Osmar [facility] 350.1.13.10 [place] [id number] [facility] stan [address] 2021-04-29 2021-04-29 Office LUIS Feilx 1.2.840.114 [id number] [facility] 14:05:29 15:26:50 [place] AMBULATOR 350.1.13.21 [place] Fredy Y 0.2.7.2.686 of [id number] [facility] corine 800 e 2021-04-29 2021-04-29 Outpatient R SRIKANTH RODRIGUEZ [facility] [id number] Univers 11:30:00 13:47:25 [facility] [facility] 2021-04-29 2021-04-29 Outpatient R SRIKANTH RODRIGUEZ [facility] [id number] Univers 11:30:00 13:47:25 ity [facility] 2021-04-29 2021-04-29 Nurse 3, Krista [facility] 1.2.840.114 [id number] 11:30:04 13:00:04 Visit Adult SPECIALTY 350.1.13.10 Infusion CARE 4.2.7.2.686 Nurse CENTER AT [phone] [address] 2021-04-29 2021-04-29 Nurse 3Krista Adult Infusion Nurse [facility] 1.2.840.114 [id number] [facility] 11:30:04 13:00:04 Visit Michael Srikanth Armandos SPECIALTY 350.1.13.1 0 [place] [phone] [address] 2021-04-29 2021-04-29 Outpatient R SRIKANTH RODRIGUEZ [facility] [id number] [facility] 11:30:00 11:30:00 ity [facility] 2021-04-29 2021-04-[facility] 1.2.840.114 [id number] 00:00:00 00:00:00 , El R PRIMARY 350.1.13.10 CARE 4.2.7.2.686 PAVILLION [id number] [facility] 2021-04-29 2021-04-[address] [facility] 1.2.840.114 [id number] [facility] 00:00:00 00:00:00 , El R PRIMARY 350.1.13.10 [place] [phone] [address] 2021-04-22 2021-04-22 Telephone Wur, [facility] 1.2.621.581 [id number] 00:00:00 00:00:00 Nyajuok PRIMARY 350.1.13.10 CARE 4.2.7.2.686 PAVILLION [phone] 044 2021-04-22 2021-04-22 [facility] 1.2.595.982 [id number] Univers 00:00:00 00:00:00 Luz PRIMARY 350.1.13.10 it [place] [phone] Pr dical 044 Branch 2021-04-17 2021-04-17 [facility] 1.2.177.746 [id number] [facility] 15:36:47 16:38:14 Visit [facility] PRIMARY 350.1.13.10 it y of [place] [id number] Pr dical [address] 2021-04-17 2021-04-17 [facility] [id number] [facility] 15:30:00 15:30:00 LINDA ity [facility] 2021-04-17 2021-04-17 Unhairing Inspector Pcp-Lab [facility] 1.2.840.114 [id number] [facility] 15:04:58 15:19:58 Visit lE Milligan PRIMARY 350.1.13. 10 it[place] of C[place] [phone] Pr dical [address] 2021-04-17 2021-04-17 [facility] 1.2.840.114 [id number] 13:47:59 15:01:31 Visit Luz PRIMARY 350.1.13.10 CARE 4.2.7.2.686 PAVILLION [id number] [facility] 2021-04-17 2021-04-[address] [facility] 1.2.840.114 [id number] [facility] 13:47:59 15:01:31 Visit El Milligan R PRIMARY 350.1.13. 10 it[place] [phone] Pr dical 044 Branch 2021-04-17 2021-04-17 Outpatient R [facility] [id number] Univers 14:00:00 14:00:00 ity [facility] 2021-04-15 2021-04-15 Outpatient R MICHAELYAMILEIC [facility] [id number] Univers 11:30:00 16:30:44 ity [facility] 2021-04-15 2021-04-15 Outpatient R MICHAELYAMILEIC [facility] [id number] Univers 11:30:00 16:30:44 ity [facility] 2021-04-15 2021-04-15 Nurse 2, Krista Adult Infusion Nurse [facility] 1.2.840.114 [id number] Univers 11:18:36 12:48:36 Visit Srikanth Rodriguez SPECIALTY 350.1.13.1 0 ity of CARE 4.2.7.2.686 [facility] [phone] Pr hollis FREEMAN 053 [facility] 2021-04-15 2021-04-15 Outpatient R MICHAEL SRIKANTH [facility] [id number] Univers 11:30:00 [facility]:30[facility] 2021-04-09 2021-04-09 [facility] 1.2.840.114 [id number] Univers 16:58:54 23:59:00 Encounter Shaji Manriquez SPECIALTY 350.1.13.10 ity of CARE 4.2.7.2.686 [facility] CENTER AT [phone] Pr hollis FREEMAN 804 [facility] 2021-04-09 2021-04-09 Outpatient R ENRIQUE [facility] [id number] Univers 16:58:54 23:59:00 SHAJI quiñones [facility] 2021-04-09 2021-04-09 Outpatient R ENRIQUE [facility] [id number] Univers 16:58:54 23:59:00 SHAJI quiñones [facility] 2021-04-09 2021-04-09 Outpatient R ENRIQUE [facility] [id number] Univers 00:00:00 00:00:00 SHAJI quiñones [facility] 2021-04-08 2021-04-08 Outpatient R ADRIANA [facility] [id number] Univers 09:00:00 09:00:00 ANIL ity [facility] 2021-04-08 2021-04-08 Outpatient R ADRIANA [facility] [id number] Univers 09:00:00 09:00:00 ANIL [facility] 2021-04-08 2021-04-08 Outpatient Laurie WRIGHT [facility] [id number] Univers 09:00:00 09:00:00 ANIL [facility] 2021-04-08 2021-04-08 Outpatient Laurie WRIGHT [facility] [id number] Univers 09:00:00 09:00:00 ANIL [facility] 2021-04-08 2021-04-08 Outpatient Laurie WRIGHT [facility] [id number] Univers 09:00:00 09:00:00 ANIL ity [facility] 2021-04-08 2021-04-08 Telephone Srikanth Rodriguez [facility] 1.2.840.114 [id number] Univers 00:00:00 00:00:[address] [facility] SPECIALTY 350.1.13.10 ity of [facility] 4.2.7.2.686 [facility] AT [phone] Pr hollis FREEMAN 2 Branch [facility] 2021-04-05 2021-04-05 [facility] 1.2.712.830 [id number] Univers 13:15:00 23:59:00 Encounter Christel Whitten [facility] 350.1.13.10 ity of [place] 4.2.7.2.686 [facility] [phone] [facility] Primary & 808 Branch Specialty Care 2021-04-05 2021-04-05 Outpatient R JOE [facility] [id number] Univers 13:15:00 23:59:00 CHRISTEL quiñones [facility] 2021-04-05 2021-04-05 Outpatient R JOE [facility] [id number] Univers 13:15:00 23:59:00 CHRISTEL quiñones [facility] 2021-04-05 2021-04-05 [facility] [id number] Univers 13:15:00 23:59:00 PETER lexi [facility] 2021-04-05 2021-04-05 Outpatient R JOE [facility] [id number] Univers 13:15:00 23:59:00 CHRISTEL y [facility] 2021-04-05 2021-04-05 Urgent Christel Diaz [facility] 1.2.840.1 14 [id number] Univers 12:53:07 13:08:07 Care Unknown, Attending HEALTH 350.1.13.10 ity [facility] 4.2.7.2.686 [facility] [phone] [facility] Primary & 370 Branch Specialty Care 2021-04-05 2021-04-05 Outpatient R DESIREE, [facility] [id number] Univers 12:45:00 12:45:00 [facility] 2021-04-01 2021-04-01 Outpatient R SRIKANTH RODRIGUEZ [facility] [id number] Univers 11:30:00 18:07:10 [facility] 2021-04-01 2021-04-01 Nurse 3Krista Adult Infusion Nurse [facility] 1.2.840.114 [id number] Univers 11:31:03 13:01:03 Visit Srikanth Rodriguez SPECIALTY 350.1.13.1 0 ity of CARE 4.2.7.2.686 [facility] AT [phone] Pr hollis FREEMAN 053 [facility] 2021-04-01 2021-04-01 Outpatient R SRIKANTH RODRIGUEZ [facility] [id number] Univers 11:30:00 11:30:00 ity [facility] 2021-04-01 2021-04-01 Patient Srikanth Rodriguez [facility] 1.2.099.750 [id number] Univers 00:00:00 00:00:00 Secure Msg Armandos SPECIALTY 350.1.13.10 ity of CARE 4.2.7.2.686 [facility] AT [phone] Pr hollis FREEMAN 072 [facility] 2021-03-30 2021-03-30 Office Venus Martins [facility] 1.2.840.11 [id number] Univers 10:49:15 11:48:39 Visit Shaji Nunez E PRIMARY 350.1.13.10 it[place] of C[place].2.7.2.686 [place] [facility] [phone] Pr hollis [facility] 2021-03-30 2021-03-30 Outpatient R ENRIQUE [facility] [id number] Univers 10:40:00 10:40:00 SHAJI [facility] 2021-03-27 2021-03-27 Telephone [facility] 1.2.840.114 [id number] Univers 00:00:00 00:00:00 Winsons SPECIALTY 350.1.13.10 [place] AT [phone] Pr hollis FREEMAN [address] [place] [address] 2021-03-20 2021-03-20 Outpatient R MICHAEL [facility] [id number] Univers 11:30:00 11:30:00 ity [facility] 2021-03-20 2021-03-20 Outpatient R MICHAEL [facility] [id number] Univers 11:30:00 11:30:00 ity [facility] 2021-03-18 2021-03-18 Outpatient R MICHAEL [facility] [id number] Univers 11:30:00 11:30:00 ity [facility] 2021-03-11 2021-03-11 Telephone [facility] 1.2.840.114 [id number] Univers 00:00:00 00:00:00 [place] SPECIALTY 350.1.13.10 [place] [phone] Pr dicshelby Wang [facility] 2021-03-06 2021-03-06 Telephone [facility] 1.2.840.114 [id number] Univers 00:00:00 00:00:00 [place] SPECIALTY 350.1.13.10 it[place] of [place].2.[place] AT [phone] Pr dicshelby Wang [facility] 2021-03-04 2021-03-04 Outpatient R SRIKANTH RODRIGUEZ [facility] [id number] Univers 10:30:00 17:41:40 ity of [facility] 2021-03-04 2021-03-04 Nurse 3, Krista Adult Infusion Nurse [facility] 1.2.840.114 [id number] Univers 10:19:33 11:49:33 Visit Srikanth Rodriguez SPECIALTY 350.1.13.1 0 ity of [facility] 4.2.7.2.686 [facility] AT [phone] Pr hollis FREEMAN [address] [place] [address] 2021-03-04 2021-03-04 Outpatient R SRIKANTH RODRIGUEZ [facility] [id number] Univers 10:30:00 10:30:00 ity of [facility] 2021-02-25 2021-02-25 Nurse 3, Krista Adult Infusion Nurse [facility] 1.2.840.114 [id number] Univers 11:13:34 12:43:34 Visit Fito Busby SPECIALTY 350.1.13.10 ity of Srikanth Rodriguez CARE 4.2.7.2.686 [facility] AT [phone] Pr hollis FREEMAN [address] [place] [address] 2021-02-25 2021-02-25 Outpatient R SRIKANTH RODRIGUEZ [facility] [id number] Univers 11:30:00 11:30:00 ity of [facility] 2021-02-25 2021-02-25 Out[facility] [id number] Univers 11:30:00 11:30:00 ity of [facility] 2021-02-20 2021-02-20 Orders Doctor REGAN 1.2.840.114 [id number] Univers 00:00:00 00:00:00 Only Unassigned, GILDA 350.1.13.10 ity of [place] [facility] 4.2.7.2.686 [facility] [phone] [address] 2021-02-18 2021-02-18 Outpatient R SRIKANTH RODRIGUEZ [facility] [id number] Univers 11:30:00 18:44:59 ity of [facility] 2021-02-18 2021-02-18 Nurse 3, Krista Adult Infusion Nurse [facility] 1.2.840.114 [id number] Univers 11:46:22 13:16:22 Visit Srikanth Rodriguez SPECIALTY 350.1.13.1 0 it[place] C[place].2.[place] AT [phone] Pr dicshelby VICTORY 053 Branch [facility] 2021-02-18 2021-02-18 Outpatient R SRIKANTH RODRIGUEZ [facility] [id number] Univers 11:30:00 11:30:00 ity of [facility] 2021-02-17 2021-02-17 Telemedici WoodyJihan [facility] 1.2.840.1 14 [id number] Univers 14:48:36 16:51:38 ne Visit [facility]Sent[facility] 350.1 .13.10 ity of CARE 4.2.7.2.686 [place] [facility] [phone] Pr dical 044 Branch 2021-02-17 2021-02-17 Outpatient R JENNIE [facility] [id number] Univers 16:00:00 16:00:00 , ity [facility] 2021-02-17 2021-02-17 Outpatient R YONY [facility] [id number] Univers 15:00:00 15:00:00 LINDA ity [facility] 2021-02-14 2021-02-14 Telephone Srikanth Rodriguez 1.2.840.114 [id number] Univers 00:00:00 00:00:00 Clare Arellano 350.1.13.10 it y of Hospital 4.2.7.2.686 Mir as [phone] [facility] 803 Branch 2021-02-13 2021-02-13 Hospital Srikanth Rodriguez 1.2.840.114 [id number] Univers 09:15:00 23:59:00 Encounter Clare [facility] 350.1.13.10 ity of CLINICS [place].2.[place] [id number] [facility] 803 Branch 2021-02-13 2021-02-13 [facility] Srikanth Rodriguez [facility] 1.2.840.114 [id number] Univers 09:14:25 09:14:25 Encounter [place] Y HEALTH 350.1.13.10 ity of CLINICS [place].2.7.2.[place] [id number] [facility] 803 Branch 2021-02-13 2021-02-13 Outpatient R MICHAEL [facility] [id number] Univers 09:14:25 09:14:25 ity of [facility] 2021-02-13 2021-02-13 Outpatient R MICHAEL [facility] [id number] Univers 00:00:00 00:00:00 ity [facility] 2021-02-10 2021-02-10 RefWU Amin 1.2.507.601 [id number] Univers 00:00:00 00:00:00 Pedro Luis GILDA 350.1.13.10 it y of HOSPITAL 4.2.7.2.686 Mir as [phone] [facility] 019 Branch 2021-02-09 2021-02-09 Refill Adriana [facility] 1.2.840.114 [id number] Univers 00:00:00 00:00:00 [facility] 350.1.13.10 it [place] [phone] [facility] 059 Branch Office Building 2021-02-06 2021-02-06 Refsangeeta Meza [facility] 1.2.840.114 [id number] Univers 00:00:00 00:00:00 Kleber PRIMARY 350.1.13.10 it y of C[place].7.2.[place] [phone] Pr dical 044 Branch 2021-02-05 2021-02-05 Emergency Ronald [facility] 1.2.177.573 [id number] Univers 01:04:00 03:00:00 Franky [facility] 350.1.13.10 it y of [place].2.686 [place] [phone] [address] ([facility]) 2021-02-05 2021-02-05 Emergency X RONALD, [facility] ERT [id number] Univers 01:04:00 03:00:00 FRANKY ity of [facility] 2021-02-05 2021-02-05 Rolanda Meza [facility] 1.2.840.114 [id number] Univers 00:00:00 00:00:00 Baring PRIMARY 350.1.13.10 it y of C[place].2.[place] [id number] Pr dical 044 [address] 2021-02-04 2021-02-04 Outpatient R MICHAEL SRIKANTH [facility] [id number] Univers 10:30:00 17:28:49 ity of [facility] 2021-02-04 2021-02-04 Nurse 3, Krista Adult Infusion Nurse [facility] 1.2.840.114 [id number] Univers 10:47:18 12:17:18 Visit Srikanth Rodriguez SPECIALTY 350.1.13.1 0 it[place] of C[place].2.[place].2.[place] AT [phone] Pr dical VICTORY 053 [facility] 2021-02-04 2021-02-04 Outpatient R PIERCELacie SRIKANTH [facility] [id number] Univers 10:30:00 10:30:00 ity of [facility] 2021-02-04 2021-02-04 Patient Piercelacie Srikanth [facility] 1.2.835.033 [id number] Univers 00:00:00 00:00:00 Secure Msg [place] SPECIALTY 350.1.13.10 ity of C[place].2.[place].2.[place] C[place] AT [phone] Pr dical VICTORY 072 Branch [facility] 2021-02-03 2021-02-03 Patient Ron [facility] 1.2.840.114 [id number] Univers 00:00:00 00:00:00 Outreach Eladio PRIMARY 350.1.13.10 i ty of Don CARE [place].2.7.2.[place] [id number] Pr dical 388 [address] 2021-01-27 2021-01-27 [facility] 1.2.840.114 [id number] Univers 15:12:17 23:59:00 Encounter [facility] HEALTH 350.1.13.10 ity of [place] 4.2.7.2.686 [facility] [phone] [facility] Primary & 808 Branch Specialty Care 2021-01-27 2021-01-27 [facility] 1.2.840.114 [id number] Univers 15:12:02 23:59:00 Encounter [facility] HEALTH 350.1.13.10 ity of [place] 4.2.7.2.686 [facility] [phone] [facility] Primary & 808 Branch Specialty Care 2021-01-27 2021-01-27 Outpatient R BARIX [facility] [id number] Univers 15:12:02 23:59:00 [facility] 2021-01-27 2021-01-27 Outpatient R [facility]IX [facility] [id number] Univers 15:12:02 23:59:00 [facility] 2021-01-27 2021-01-27 Outpatient R [facility]IX [facility] [id number] Univers 15:12:02 23:59:00 [facility] 2021-01-27 2021-01-27 Outpatient R UNKNOWN, [facility] [id number] Univers 15:15:00 15:15:00 ATTENDING ity [facility] 2021-01-27 2021-01-27 [facility] 1.2.840.114 [id number] Univers 15:10:00 15:11:00 Encounter [facility] HEALTH 350.1.13.10 ity of [place] 4.2.7.2.686 [facility] [id number] [facility] Primary & 808 Branch Specialty Care 2021-01-27 2021-01-27 [facility] 1.2.840. 114 [id number] Univers 14:48:03 15:03:03 Care Unknown, Attending HEALTH 350.1.13.10 ity of [place] 4.2.7.2.686 [facility] [id number] [facility] Primary & 370 Branch Specialty Care 2021-01-27 2021-01-27 Telephone Dominik [facility] 1.2.840.114 [id number] Univers 00:00:00 00:00:00 [facility] 350.1.13.10 it y of [place] 4.2.7.2.686 [facility] [id number] [facility] Primary & 370 Branch Specialty Care 2021-01-22 2021-01-22 Patient Srikanth Rodriguez [facility] 1.2.634.768 [id number] Univers 00:00:00 00:00:00 [facility] 350.1.13.10 ity of CARE 4.2.7.2.686 [facility] AT [phone] Pr hollis FREEMAN 072 [facility] 2021-01-21 2021-01-21 Nurse 3Krista Adult Infusion Nurse [facility] 1.2.840.114 [id number] Univers 11:21:21 12:51:21 Visit Srikanth Rodriguez SPECIALTY 350.1.13.1 0 ity of CARE 4.2.7.2.686 [facility] AT [phone] Pr hollis FREEMAN 053 [facility] 2021-01-21 2021-01-21 Outpatient R SRIKANTH RODRIGUEZ [facility] [id number] Univers 11:00:00 11:00:00 ity of [facility] 2021-01-19 2021-01-19 Outpatient Laurie HARE [facility] [id number] Univers 11:00:00 11:00:00 PAZ dawson [facility] 2021-01-19 2021-01-19 Telemedici Ananya [facility] 1.2.840.114 [id number] Univers 08:23:41 08:53:41 ne Visit Paz Reynoso PRIMARY 350.1.13.10 ity of CARE 4.2.7.2.686 [facility] [phone] Pr hollis 056 [address] 2021-01-16 2021-01-16 Outpatient Laurie WRIGHT [facility] [id number] Univers 13:00:00 13:00:00 ANIL ity of [facility] 2021-01-16 2021-01-16 Thanh Hare WVKAREN 1.2.840.114 [id number] Univers 00:00:00 00:00:00 Paz KASPERPEC 350.1.13.10 ity of [place] 4.2.7.2.[address] [place] [phone] [facility] 2021-01-15 2021-01-15 Orders Doctor WU 1.2.840.114 [id number] Univers 00:00:00 00:00:00 Only Unassigned, GILDA 350.1.13.10 ity of [place] [address] [place] [id number] 2021-01-07 2021-01-07 Outpatient R SRIKANTH RODRIGUEZ [facility] [id number] Univers 11:00:00 11:00:00 ity of [facility] 2021-01-02 2021-01-02 Rolanda Hare [facility] 1.2.840.114 [id number] Univers 00:00:00 00:00:00 Paz POLLOCK 350.1.13.10 ity of IALTY 4.2.7.2.[address] [place] [phone] [facility]INIC 2021-01-01 2021-01-01 Outpatient R DESIREE, [facility] [id number] Univers 17:00:00 17:00:00 ATTENDING ity of [facility] 2020-12-30 2020-12-30 Emergency Ronald WVKAREN 1.2.174.747 [id number] Univers 01:31:00 04:37:00 Franky A [facility] 350.1.13.10 it y of [place] 4.2.7.2.[address] [place] [phone] ([facility]) 2020-12-30 2020-12-30 Emergency X RONALD, WVKAREN ERT [id number] Univers 01:31:00 04:37:00 FRANKY ity of [facility] 2020-12-29 2020-12-29 Outpatient R DERIK VALENTINE [facility] [id number] Univers 13:20:00 13:20:00 ity [facility] 2020-12-27 2020-12-27 Telephone Dominik [facility] 1.2.840.114 [id number] Univers 00:00:00 00:00:00 [facility] 350.1.13.10 it y of [place] 4.2.7.2.686 [facility] [phone] [facility] Primary & 370 Branch Specialty Care 2020-12-26 2020-12-26 Outpatient R [facility] [id number] Univers 14:30:00 14:30:00 ity [facility] 2020-12-24 2020-12-24 Urgent Wojciech Lemon [facility] 1.2.840. 114 [id number] Univers 15:04:45 15:43:08 Care Unknown, Attending HEALTH 350.1.13.10 ity of [place] 4.2.7.2.686 [facility] [id number] [facility] Primary & 370 Branch Specialty Care 2020-12-24 2020-12-24 Outpatient R SRIKANTH RODRIGUEZ [facility] [id number] Univers 11:00:00 11:00:00 ity [facility] 2020-12-24 2020-12-24 Outpatient R MICHAEL SRIKANTH [facility] [id number] Univers 11:00:00 11:00:00 ity [facility] 2020-12-18 2020-12-18 Office [facility] 1.2.840.114 [id number] Univers 16:13:18 16:33:18 Visit Anil [facility] 350.1.13.10 it y of [place] 4.2.7.2.686 [facility] [phone] [facility] 059 Branch Office Building 2020-12-18 2020-12-18 Outpatient R ADRIANA [facility] [id number] Univers 16:00:00 16:00:00 ANIL ity [facility] 2020-12-17 2020-12-17 Outpatient R CELIO [facility] [id number] Univers 15:00:00 15:00:00 LYDIA ity [facility] 2020-12-10 2020-12-10 Outpatient R SRIKANTH RODRIGUEZ [facility] [id number] Univers 11:30:00 18:58:10 ity [facility] 2020-12-10 2020-12-10 Nurse 3, Krista Adult Infusion Nurse [facility] 1.2.840.114 [id number] Univers 11:46:15 13:16:15 Visit Srikanth Rodriguez SPECIALTY 350.1.13.1 0 ity of [place]2.7.2.[place] C[place] AT [phone] Pr hollis EMILE [address] [place] [address] 2020-12-10 2020-12-10 Outpatient R SRIKANTH RODRIGUEZ [facility] [id number] Univers 11:30:00 11:30:00 ity [facility] 2020-12-10 2020-12-10 Orders Doctor WU 1.2.840.114 [id number] Univers 00:00:00 00:00:00 Only Unassigned, GILDA 350.1.13.10 ity of [place] [facility] 4.2.7.2.686 Mir as [phone] [address] 2020-12-05 2020-12-05 Rolanda Johnson [facility] 1.2.840.114 [id number] Univers 00:00:00 00:00:00 [place] PRIMARY 350.1.13.10 [facility] [place].2.[place] [phone] Pr hollis [address] 2020-11-28 2020-11-28 Outpatient R ELVIE [facility] [id number] Univers 12:00:00 12:00:00 VIC dawson [facility] 2020-11-26 2020-11-26 Outpatient R JONNA [facility] [id number] Univers 15:40:00 15:40:00 ADELFO ity [facility] 2020-11-26 2020-11-26 Outpatient R SRIKANTH RODRIGUEZ [facility] [id number] Univers 13:00:00 13:00:00 ity [facility] 2020-11-21 2020-11-21 Orders Doctor WU 1.2.840.114 [id number] Univers 00:00:00 00:00:00 Only Unassigned, GILDA 350.1.13.10 ity of [place] [facility] 4.2.7.2.686 Mir as [phone] [facility] [address] 2020-11-13 2020-11-13 Outpatient R ADRIANA [facility] [id number] Univers 08:00:00 08:00:00 ANIL ity of [facility] 2020-11-12 2020-11-12 Outpatient R MICHAEL [facility]TA [facility] [id number] Univers 11:00:00 13:41:49 ity of [facility] 2020-11-12 2020-11-12 Nurse 3, Krista Adult Infusion Nurse [facility] 1.2.840.114 [id number] Univers 10:14:21 11:44:21 Visit Srikanth Rodriguez SPECIALTY 350.1.13.1 0 it[place] [phone] Pr sanjayshelby FREEMAN 053 [facility] 2020-11-12 2020-11-12 Outpatient R MICHAEL [facility] [id number] Univers 11:00:00 11:00:00 ity of [facility] 2020-11-12 2020-11-12 Telephone [facility] 1.2.840.114 [id number] Univers 00:00:00 00:00:00 Winsons SPECIALTY 350.1.13.10 [place] [phone] Pr sanjayshelby FREEMAN 072 [facility] 2020-11-04 2020-11-04 Rolanda Meza [facility] 1.2.840.114 [id number] Univers 00:00:00 00:00:00 Baring PRIMARY 350.1.13.10 it y of C[place] [phone] Pr dical [address] 2020-10-29 2020-10-29 Outpatient R MICHAEL [facility] [id number] Univers 11:00:00 16:32:22 ity of [facility] 2020-10-29 2020-10-29 Nurse 3, Krista Adult Infusion Nurse [facility] 1.2.840.114 [id number] Univers 11:20:00 12:50:00 Visit Srikanth Rodriguez SPECIALTY 350.1.13.1 0 [place] [phone] Pr hollis FREEMAN 053 [facility] 2020-10-29 2020-10-29 Outpatient R SRIKANTH RODRIGUEZ [facility] [id number] [id number] Univers 11:00:00 11:00:00 ity of [facility] 2020-10-29 2020-10-29 Ancillary Mert Willis [facility] 1.2.8 40.114 [id number] Univers 10:12:20 10:52:20 Visit Adelfo Coyle 350.1.13.10 ity of [facility] 4.2.7.2.686 [place] [facility] [phone] [address] ([facility]) 2020-10-29 2020-10-29 Outpatient R JONNA [facility] [id number] Univers 10:20:00 10:20:00 ADELFO ity of [facility] 2020-10-27 2020-10-27 Office Araceli [facility] 1.2.840.114 [id number] Univers 11:34:25 11:56:10 Visit Nik SPECIALTY 350.1.13.10 ity of CARE 4.2.7.2.686 [facility] CENTER AT [phone] Pr hollis FREEMAN 198 [facility] 2020-10-27 2020-10-27 Outpatient R ARACELI [facility] [id number] Univers 11:20:00 11:20:00 NIK ity of [facility] 2020-10-27 2020-10-27 Patient Doctor UNIVERSIT 1.2.086.720 [id number] Univers 00:00:00 00:00:00 Secure Msg Unassigned, Y HEALTH 350.1.13.10 ity of [place] [phone] [address] 2020-10-25 2020-10-25 Emergency José Miguel [facility] 1.2.173.951 [id number] [id number] Univers 18:38:00 21:25:00 Mendoza [facility] 350.1.13.10 it[place] [phone] [facility] [address] Branch ([facility]) 2020-10-25 2020-10-25 Nurse Meera Chun 1.2.840.114 [id number] Univers 00:00:00 00:00:00 Triage GILDA 350.1.13.10 it y of HOSPITAL 4.2.7.2.686 [place] as [phone] [facility] [address] 2020-10-23 2020-10-23 Patient Adriana [facility] 1.2.840.114 [id number] Univers 00:00:00 00:00:00 Secure Msg Anil [facility] 350.1.13.10 it[place] [phone] [place] [address] [facility] 2020-10-22 2020-10-22 Office Pool, [facility] Resident UNIVERSIT 1.2.8 40.114 [id number] Univers 13:52:19 15:39:23 Visit Massey, Marii Kim HEALTH 350.1.13. 10 ity of CLINICS 4.2.[place] [phone] [facility] [address] 2020-10-22 2020-10-22 Outpatient R [facility] [id number] Univers 14:00:00 14:00:00 ity [facility] 2020-10-15 2020-10-15 Outpatient R SRIKANTH RODRIGUEZ [facility] [id number] Univers 11:00:00 16:26:04 ity [facility] 2020-10-15 2020-10-15 Nurse Krista Persaud Adult Infusion Nurse [facility] 1.2.840.114 [id number] Univers 10:48:51 12:18:51 Visit Srikanth Rodriguez SPECIALTY 350.1.13.1 0 it[place] C[place] AT [phone] Pr hollis [address] 2020-10-15 2020-10-15 Outpatient R SRIKANTH RODRIGUEZ [facility] [id number] [id number] Univers 11:00:00 11:00:00 ity of [facility] 2020-10-06 2020-10-06 Telemedici Ananya [facility] 1.2.840.114 [id number] Univers 11:18:31 11:33:31 ne Visit Paz Reynoso PRIMARY 350.1.13.10 ity of CARE 4.2.7.2.686 [facility] [phone] Pr dicshelby [address] [place] [address] 2020-10-06 2020-10-06 [facility] 1029 [id number] Univers 11:30:00 11:30:00 PAZ quiñones o f [facility] 2020-10-06 2020-10-06 Telephone [facility] 1.2.840.114 [id number] Univers 00:00:00 00:00:00 Paz Reynoso MULTISPEC 350.1.13.10 ity of IALTY 4.2.7.2.686 [facility] [phone] [facility] stan AND LOIS [address] [place] [address] DIABETES CLINIC 2020-10-01 2020-10-01 Office LUIS Felix 1.2.840.114 [id number] [facility] 13:33:54 16:38:22 Visit Karel AMBULATOR 350.1.13.21 [place] Fredy [phone] [facility] corine 800 e 2020-10-01 2020-10-01 Outpatient R SRIKANTH RODRIGUEZ [facility] [id number] Univers 11:00:00 13:23:46 ity of [facility] 2020-10-01 2020-10-01 Nurse 2Krista Adult Infusion Nurse [facility] 1.2.840.114 [id number] Univers 10:53:12 13:23:46 Visit Srikanth Rodriguez SPECIALTY 350.1.13.1 0 ity of CARE 4.2.7.2.686 [facility] AT [phone] Pr sanjayshelby FREEMAN [address] [place] [address] 2020-10-01 2020-10-01 Outpatient R SRIKANTH RODRIGUEZ [facility] [id number] Univers 11:00:00 11:00:00 ity of [facility] 2020-10-01 2020-10-01 Telephone Ananya [facility] 1.2.840.114 [id number] Univers 00:00:00 00:00:00 Paz Reynoso MULTISPEC 350.1.13.10 ity of IALTY 4.2.7.2.686 [facility] [phone] [facility] AND ABREU [address] DIABETES CLINIC 2020-09-29 2020-09-29 Patient Srikanth Rodriguez [facility] 1.2.149.923 [id number] Univers 00:00:00 00:00:00 Secure Msg [place] SPECIALTY 350.1.13.10 ity of CARE 4.2.7.2.686 [facility] AT [phone] Pr sanjayshelby BAPTISTELexi [address] [place] [address] 2020-09-25 2020-09-25 Ancillary Mert Willis [facility] 1.2.8 40.114 [id number] Univers 16:16:20 17:16:20 Visit Adelfo Coyle [facility] 350.1.13.10 ity of [place] 4.2.7.2.686 [facility] [phone] [address] ([facility]) 2020-09-25 2020-09-25 Outpatient R JONNA [facility] [id number] Univers 16:00:00 16:00:00 ADELFO quiñones [facility] 2020-09-25 2020-09-25 Nurse Cinda REGAN 1.2.840.114 [id number] Univers 00:00:00 00:00:00 Triage GILDA Hendrix 350.1.13.10 ity of [facility] 4.2.7.2.686 Mir as [phone] [facility] [address] 2020-09-25 2020-09-25 Orders Doctor WU 1.2.840.114 [id number] Univers 00:00:00 00:00:00 Only UnassignedGILDA 350.1.13.10 ity of [place] [facility] 4.2.7.2.686 Mir as [phone] [facility] [address] 2020-09-23 2020-09-23 Outpatient R DESIREE [facility] [id number] Univers 18:15:00 18:15:00 ATTENDING ity of [facility] 2020-09-19 2020-09-19 Outpatient R SRIKANTH RODRIGUEZ [facility] [id number] Univers 10:30:00 10:30:00 ity of [facility] 2020-09-17 2020-09-17 Outpatient R SRIKANTH RODRIGUEZ [facility] [id number] Univers 11:00:00 11:00:00 ity of [facility] 2020-09-17 2020-09-17 Telephone Andrew [facility] 1.2.866.032 [id number] Univers 00:00:00 00:00:00 Sherin MULTISPEC 350.1.13.10 ity of IALTY 4.2.7.2.686 [facility] [phone] [facility] AND ABREU [address] DIABETES CLINIC 2020-09-17 2020-09-17 Telephone Krista Persaud [facility] 1.2.390.743 [id number] Univers 00:00:00 00:00:00 Adult SPECIALTY 350.1.13.10 ity of Infusion CARE 4.2.7.2.686 [facility] Nurse CENTER AT [phone] [address] 2020-09-13 2020-09-13 Hospital [facility] 1.2.840.114 [id number] Univers 10:40:00 23:59:[address] [facility] 350.1.13.10 ity of [place] 4.2.7.2.686 [facility] [phone] [facility] Primary & 808 [address] Specialty Care 2020-09-13 2020-09-13 Urgent [facility] 1.2.840.11 4 [id number] Univers 10:03:24 10:45:26 Care Unknown, Attending HEALTH 350.1.13.10 ity of [place] 4.2.7.2.686 [facility] [phone] [facility] Primary & 370 [address] Specialty Care 2020-09-13 2020-09-13 Outpatient R UNKNOWN, [facility] [id number] Univers 10:30:00 10:30:00 ATTENDING ity of [facility] 2020-09-10 2020-09-10 Outpatient R [facility] [id number] Univers 20:00:00 20:00:00 ity of [facility] 2020-09-10 2020-09-10 Unhairing Inspector Lab, Sleep ROS 1.2.840.114 [id number] Univers 12:47:38 15:17:38 Visit Gwyn Gilmore 350.1.13.10 ity of [place] [phone] [facility] [address] 2020-09-10 2020-09-10 Laboratory Only, [facility] Test UNIVERSIT 1.2.84 0.114 [id number] Univers 11:14:18 11:29:18 Only Sherin Morales [facility] 350.1.13.10 ity of CLINICS 4.2.[place] [id number] [facility] [address] 2020-09-10 2020-09-10 Orders [facility] 1.2.840.114 [id number] Univers 00:00:00 00:00:00 Only Sherin MULTISPEC 350.1.13.10 it[place] [phone] [facility] LOIS [address] [place] [address] [facility] 2020-09-08 2020-09-08 Telemedici [facility] [place] 1.2.840.114 [id number] Univers 16:03:30 16:18:30 ne Visit Shelia JOHN 350.1.13.10 it[place] of C[place] 4.2.[place].2.[place] [phone] Pr dicct [address] 2020-09-08 2020-09-08 Outpatient [facility] [id number] [id number] Univers 16:00:00 16:00:00 SHELIA ity of [facility] 2020-09-05 2020-09-05 [facility]ic [facility] 1.2.840.114 [id number] Univers 07:41:52 13:56:30 ne Visit Sherin POLLOCK 350.1.13.10 it[place] of I[place].2.[place]2.[place] [phone] [facility] LOIS [address] [place] [address] [facility] 2020-09-05 2020-09-05 Outpatient [facility] [id number] Univers 13:00:00 13:00:00 SHERIN ity [facility] 2020-09-04 2020-09-04 [facility] 1.2.840.114 [id number] Univers 16:45:41 23:59:00 Encounter Shelia Lewis SPECIALTY 350.1.13.10 it[place] C[place] [phone] Pr hollis FREEMAN 804 [facility] 2020-09-04 2020-09-04 Outpatient [facility] [id number] Univers 00:00:00 00:00:00 SHELIA ity [facility] 2020-09-03 2020-09-03 Nurse 2Krista Adult Infusion Nurse [facility] 1.2.840.114 [id number] Univers 11:01:52 15:00:10 Visit Srikanth Rodriguez SPECIALTY 350.1.13.1 0 ity of CARE 4.2.7.2.686 [facility] [phone] Pr sanjayshelby FREEMAN 053 [facility] 2020-09-03 2020-09-03 Outpatient R MICHAEL SRIKANTH [facility] [id number] Univers 11:00:00 11:00:00 ity [facility] 2020-08-26 2020-08-26 Outpatient R MICHAEL SRIKANTH [facility] [id number] Univers 16:00:00 16:00:00 ity [facility] 2020-08-26 2020-08-26 Telemedici [facility] 1.2.840.114 7 [id number] Univers 06:35:58 07:05:[address] [facility] SPECIALTY 350.1.13.10 ity of CARE 4.2.7.2.686 [facility] AT [phone] Pr sanjayshelby FREEMAN 072 [facility] 2020-08-22 2020-08-22 Outpatient R ANDREW [facility] [id number] Univers 08:30:00 08:30:00 SHERIN ity [facility] 2020-08-20 2020-08-20 Nurse 2Krista Adult Infusion Nurse [facility] 1.2.840.114 [id number] Univers 11:03:18 12:33:18 Visit Srikanth Rodriguezsalomon SPECIALTY 350.1.13.1 0 ity of CARE 4.2.7.2.686 [facility] AT [phone] Pr sanjayshelby FREEMAN 053 [facility] 2020-08-20 2020-08-20 Outpatient R SRIKANTH RODRIGUEZ [facility] [id number] [id number] Univers 11:00:00 11:00:00 ity of [facility] 2020-08-18 2020-08-18 RefRomero Carranza [facility] 1.2.840.114 [id number] Univers 00:00:00 00:00:00 S HEALTH 350.1.13.10 it y of FAMILY 4.2.7.2.686 [facility] MEDICINE [phone] Med ical [place] 044 [facility] 2020-08-16 2020-08-16 Rolanda Hare [facility] 1.2.840.114 [id number] Univers 00:00:00 00:00:00 Paz KASPERPEC 350.1.13.10 ity of IALTY 4.2.7.2.686 [facility] [id number] [facility] AND LOIS [address] DIABETES CLINIC 2020-08-15 2020-08-15 Hospital Srikanth Rodriguez [facility] 1.2.840.114 7 [id number] Univers 10:12:28 23:59:00 Encounter Clare Y HEALTH 350.1.13.10 ity of CLINICS [place].2.[place].2.[place] [id number] [facility] 803 [address] 2020-08-15 2020-08-15 Outpatient R [facility] [id number] [id number] Univers 00:00:00 00:00:00 ity of [facility] 2020-08-11 2020-08-11 Case [facility] 1.2.735.618 [id number] Univers 00:00:00 00:00:00 Management [place] SPECIALTY 350.1.13.10 ity of CARE 4.2.7.2.686 [facility] AT [phone] Pr sanjayshelby FREEMAN 072 [facility] 2020-08-06 2020-08-06 Nurse 2Krista Adult Infusion Nurse [facility] 1.2.840.114 [id number] Univers 11:21:21 14:37:04 Visit Srikanth Rodriguez [place] SPECIALTY 350.1.13.1 0 it[place] of C[place].2.[place] AT [phone] Pr hollis FREEMAN 053 [facility] 2020-08-06 2020-08-06 Outpatient R SRIKANTH RODRIGUEZ [facility] [id number] Univers 11:00:00 11:00:00 ity of [facility] 2020-08-05 2020-08-05 Outpatient R ELIZABETH [facility] [id number] Univers 15:00:00 15:00:00 ASTON [facility] 2020-08-05 2020-08-05 Telemedici [facility] 1.2.840.114 [id number] Univers 08:08:02 08:28:02 ne Visit [facility] 350.1.13.10 i ty of [place] [phone] Med ical [place] 044 [facility] 2020-08-01 2020-08-01 Telephone Srikanth Rodriguez [facility] 1.2.840.114 [id number] Univers 00:00:00 00:00:00 Clare SPECIALTY 350.1.13.10 it[place] C[place].2.[place] AT [phone] Pr sanjayshelby FREEMAN 072 [facility] 2020-07-31 2020-07-31 [facility] 1.2.840.114 7 [id number] Univers 15:08:07 23:59:00 Encounter Nik PRIMARY 350.1.13.10 it[place] of C[place].2.[place] [id number] Pr sanjayshelby [address] 2020-07-31 2020-07-31 Outpatient [facility] [id number] Univers 16:20:00 16:20:00 INK ity [facility] 2020-07-31 2020-07-31 Office [facility] 1.2.840.114 77 [id number] Univers 14:57:57 15:59:14 Visit Nik PRIMARY 350.1.13.10 it y of CARE [place].2.7.2.[place] [phone] Pr dical [address] 2020-07-31 2020-07-31 Telephone SANTANA Wright 1.2.840.114 78 [id number] Univers 00:00:00 00:00:00 Anil Y HEALTH 350.1.13.10 i ty of CLINICS 4.2.7.2.[place] [phone] [facility] [address] 2020-07-30 2020-07-30 Nurse Ryan REGAN 1.2.840.114 [id number] Univers 00:00:00 00:00:00 Triage dLaura 350.1.13.10 ity of HOSPITAL 4.2.7.2.686 Mir as [phone] [facility] [address] 2020-07-28 2020-07-28 Outpatient R SRIKANTH RODRIGUEZ [facility] [id number] Univers 14:30:00 14:30:00 ity [facility] 2020-07-26 2020-07-26 Emergency [facility] 1.2.840.114 [id number] Univers 17:33:00 20:57:00 [facility] 350.1.13.10 i ty of [place] [phone] [facility] 014 Branch (CLC) 2020-07-23 2020-07-23 Nurse Visit/Fp, [facility] Nurse MINNIE Forman 1.2.840.114 [id number] Univers 14:27:02 15:00:20 Visit Jacqui Hahn Y HEALTH 350.1.13.10 ity of CLINICS 4.2.7.2.[place] [id number] [facility] [address] 2020-07-23 2020-07-23 Outpatient R [facility] [id number] Univers 14:30:00 14:30:00 ity [facility] 2020-07-21 2020-07-21 Telephone Ananya [facility] 1.2.840.114 7 [id number] Univers 00:00:00 00:00:00 Paz KASPERPEC 350.1.13.10 ity of IAL[place].2.7.2.686 [place] [id number] [facility] AND [address] DIABETES CLINIC 2020-07-18 2020-07-18 Emergency [facility] 1.2.840.114 77 [id number] Univers 14:36:00 18:43:00 [facility] 350.1.13.10 i ty [place] [phone] [address] (CLC) 2020-07-17 2020-07-17 Telephone Srikanth Rodriguez [facility] 1.2.840.114 [id number] Univers 00:00:00 00:00:00 [facility] SPECIALTY 350.1.13.10 ity of CARE [place].2.7.2.[place] C[place] AT [phone] Pr hollis [address] 2020-07-16 2020-07-16 Outpatient Laur[facility] [id number] Univers 15:00:00 15:00:00 [facility] 2020-07-16 2020-07-16 Telephone [facility] 1.2.840.114 [id number] Univers 00:00:00 00:00:00 Suzi MANUAL QA TESTER 350.1.13.10 ity of REGIONAL 4.2.7.2.686 Mir as MATERNAL [phone] Med ical & CHILD [address] [place] [address] 2020-07-04 2020-07-15 Telemedici Ananya [facility] 1.2.840.114 [id number] Univers 07:53:51 14:04:18 ne Visit Paz POLLOCK 350.1.13.10 ity of I[place] 4.2.7.2.686 [place] [phone] [address] DIABETES CLINIC 2020-07-09 2020-07-09 Outpatient Laurie GILLIAM [facility] [id number] Univers 15:00:00 15:00:00 [facility] 2020-07-07 2020-07-07 Refill Srikanth Rodriguez [facility] 1.2.867.537 [id number] Univers 00:00:00 00:00:00 [place] SPECIALTY 350.1.13.10 ity of CARE [place].2.7.2.[place] C[place] AT [id number] Pr hollis FREEMAN 072 [facility] 2020-07-04 2020-07-04 Outpatient R ANANYA, [facility] 1026 [id number] Univers 14:00:00 14:00:00 PAZ dawson [facility] 2020-07-03 2020-07-03 Telephone Srikanth Rodriguez [facility] 1.2.840.114 [id number] Univers 00:00:00 00:00:00 [place] SPECIALTY 350.1.13.10 ity of CARE 4.2.7.2.686 [place] AT [phone] Pr hollis FREEMAN [address] [place] [address] 2020-07-02 2020-07-02 Office LUIS Felix 1.2.840.114 [id number] [facility] 14:44:11 15:43:54 Visit Karel AMBULATOR 350.1.13.21 Radha Kim 0.2.7.2.686 [id number] Medi corine 800 e 2020-07-01 2020-07-01 Outpatient R CELIO, [facility] [id number] Univers 08:30:00 08:30:00 LYDIA [facility] 2020-07-01 2020-07-01 Outpatient R YONY [facility] [id number] Univers 00:00:00 00:00:00 LINDA [facility] 2020-06-26 2020-06-26 Outpatient R ZHANE [facility] [id number] Univers 13:00:00 13:00:00 KATERYNA [facility] 2020-06-26 2020-06-26 Telemedici [facility] 1.2.840.114 [id number] Univers 07:14:40 07:29:40 ne Visit Kateryna Hill SPECIALTY 350.1.13.10 ity of C[place].2.7.2.686 [place] AT [phone] Pr sanjayshelby FREEMAN 204 [facility] 2020-06-26 2020-06-26 Orders Doctor REGAN 1.2.840.114 [id number] Univers 00:00:00 00:00:00 Only Unassigned, GILDA 350.1.13.10 ity of [place] [facility] 4.2.7.2.686 Mir as [phone] [facility] [address] 2020-06-25 2020-06-25 Office Mohan, [facility] Resident UNIVERSIT 1.2.8 40.114 [id number] Univers 14:44:19 16:44:19 Visit Marii Massey 350.1.13. 10 ity of CLINICS 4.2.[place].2.[place] [id number] [facility] [address] 2020-06-25 2020-06-25 Outpatient R [facility] [id number] Univers 14:30:00 14:30:00 ity [facility] 2020-06-24 2020-06-24 Rolanda [facility]UN[facility] 1.2.840.114 [id number] Univers 00:00:00 00:00:00 Baring PRIMARY 350.1.13.10 it y of CARE [place]2.7.2.[place] PAVSARAHON [phone] [address] 2020-06-19 2020-06-19 Outpatient [facility] [id number] Univers 11:45:00 11:45:00 KATERYNA ity [facility] 2020-06-18 2020-06-18 Outpatient [facility] [id number] Univers 10:00:00 10:00:00 JESS ity [facility] 2020-06-16 2020-06-16 Outpatient [facility] [id number] Univers 13:00:00 13:00:00 ADELFO ity [facility] 2020-06-16 2020-06-16 Sami [facility]UN[facility] 1.2.840.114 [id number] Univers 00:00:00 00:00:00 Management Gely [facility] 350.1.13.10 [place].686 [place] [phone] [address] ([facility]) 2020-06-12 2020-06-12 Office [facility] 1.2.840.114 [id number] Univers 11:00:35 12:20:21 Visit Lydia MULTISPEC 350.1.13.10 ity of I[place].2.686 [place] [phone] [facility] AND [place] [address] DIABETES CLINIC 2020-06-12 2020-06-12 Outpatient R CELIO [facility] [id number] Univers 11:00:00 11:00:00 LYDIA [facility] 2020-06-10 2020-06-12 Inpatient HCAMN LALA [id number] [facility] 13:00:00 05:46:21 12 [facility] 2020-06-11 2020-06-11 Outpatient R PATTIE [facility] [id number] Univers 00:00:00 00:00:00 WILLIAM [facility] 2020-06-11 2020-06-11 Transition Isis Alejandra 1.2.840.114 [id number] Univers 00:00:00 00:00:00 of Care Zabrina Garcia [id number] i ty of [place] [id number] [facility] [id number] [facility] [address] 2020-06-05 2020-06-06 [facility] 1.2.840.114 [id number] Univers 21:41:28 00:15:00 [facility] [id number] it y of [place] [id number] [facility] [id number] [address] ([facility]) 2020-06-04 2020-06-04 Outpatient Laurie COYLE [facility] [id number] Univers 10:00:00 10:00:00 ADELFO ity [facility] 2020-06-04 2020-06-04 Telephone Srikanth Rodriguez [facility] 1.2.840.114 [id number] Univers 00:00:00 00:00:00 [place] [facility] [id number] [id number] [phone] Pr hollis [address] 2020-06-02 2020-06-02 Outpatient R SRIKANTH RODRIGUEZ [facility] [id number] Univers 14:30:00 14:30:00 ity of [facility] 2020-06-02 2020-06-02 [facility]medici [facility] 1.2.840.114 [id number] Univers 07:10:25 07:40:25 ne Visit [place] SPECIALTY [id number] [id number] [id number] Pr dical VICTORY 072 [facility] 2020-05-28 2020-05-28 Refill Asael [facility] 1.2.840.114 [id number] Univers 00:00:00 00:00:00 [facility] [id number] [id number] [facility] [id number] [facility] Primary & [address] [facility] 2020-05-27 2020-05-27 Outpatient R YAMILE RODRIGUEZIC [facility] [id number] Univers 13:00:00 13:00:00 ity of [facility] 2020-05-27 2020-05-27 Refsangeeta Meza [facility] 1.2.840.114 [id number] Univers 00:00:00 00:00:00 [place] PRIMARY [id number] [id number] [id number] Pr dicshelby [address] 2020-05-23 2020-05-23 Nurse Visit/Fp, [facility] [facility] UNIVERSI T 1.2.840.114 [id number] Univers 14:25:56 14:57:33 Visit Jacqui Hahn 350.1.13.10 it[place] of CL[place]ICS [place] [id number] [facility] [address] 2020-05-23 2020-05-23 Outpatient R [facility] [id number] Univers 14:30:00 14:30:00 ity of [facility] 2020-05-23 2020-05-23 Orders Doctor REGAN 1.2.840.114 [id number] Univers 00:00:00 00:00:00 Only Unassigned, GILDA 350.1.13.10 ity of [place] [facility] 4.2.7.2.686 Mir as [id number] [facility] stan [address] 2020-05-22 2020-05-22 Outpatient R RONRACHEL [facility] [id number] Univers 14:00:00 14:00:00 RACHEL VELASQUEZ [facility] 2020-05-21 2020-05-21 Outpatient R DERRICK, [facility] [id number] Univers 10:40:00 10:40:00 KLEBER [facility] 2020-05-21 2020-05-21 Outpatient R JONNA, [facility] [id number] Univers 09:40:00 09:40:00 ADELFO [facility] 2020-05-16 2020-05-16 Office [facility] [place] 1.2.049.788 [id number] Univers 15:58:47 16:28:47 Visit Shelia JOHN 350.1.13.10 it[place] [phone] Pr sanjayshelby [address] 2020-05-16 2020-05-16 Outpatient R MARIANO, [facility] [id number] Univers 14:30:00 14:30:00 [facility]-15 2020-05-15 Hospital [facility] 1.2.840.114 [id number] Univers 15:10:00 23:59:00 Encounter David SPECIALTY 350.1.13.10 [place] [phone] Pr sanjayshelby FREEMAN 8[facility] 2020-05-15 2020-05-15 Urgent David Dela Cruz [facility] 1.2.840. 114 [id number] Univers 14:46:35 16:19:22 Care Unknown, Attending SPECIALTY 350.1.13. 10 it[place] [id number] Pr sanjayshelby FREEMAN 370 [facility] 2020-05-15 2020-05-15 Outpatient R UNKNOWN, [facility] [id number] Univers 15:00:00 15:00:00 [facility] 2020-05-15 2020-05-15 Abstract [facility] 1.2.840.114 [id number] Univers 00:00:00 00:00:00 Shelia J PRIMARY 350.1.13.10 it[place] [phone] Pr dicshelby [address] 2020-05-12 2020-05-12 Telephone [facility] UNIVERSIT 1.2.840.114 [id number] Univers 00:00:00 00:00:00 Resident Y HEALTH 350.1.13.10 it[place] of CL[place]ICS [place] [id number] [facility] [address] 2020-05-06 2020-05-06 [facility] 1.2.840.114 [id number] Univers 00:00:00 00:00:00 Management Baring PRIMARY 350.1.13.10 it[place] of [place] [id number] Pr dicshelby [address] 2020-05-05 2020-05-05 Outpatient R YONY [facility] [id number] Univers 14:00:00 14:00:00 [facility] 2020-05-05 2020-05-05 [facility] 1.2.840.114 [id number] Univers 00:00:00 00:00:00 [place]ana SPECIALTY 350.1.13.10 it[place] AT [id number] Pr hollis FREEMAN 370 [facility] 2020-05-05 2020-05-05 Srikanth Allen [facility] 1.2.961.386 [id number] Univers 00:00:00 00:00:00 Winsons SPECIALTY 350.1.13.10 it[place] C[place] [id number] Pr dicshelby FREEMAN 072 [facility] 2020-05-03 2020-05-03 [facility] [id number] Univers 15:22:29 23:59:00 SANDRA [facility] 2020-05-03 2020-05-03 [facility] 1.2.840.114 [id number] Univers 15:20:00 23:59:00 Encounter Tamela SPECIALTY 350.1.13.10 it[place] [phone] Pr hollis FREEMAN 808 [facility] 2020-05-03 2020-05-03 Urgent Tamela Hall [facility] 1.2.840 .114 [id number] Univers 11:59:46 12:14:46 Care Unknown, Attending SPECIALTY 350.1.13. 10 it[place] [id number] Pr hollis FREEMAN 370 [facility] 2020-05-03 2020-05-03 Outpatient R DESIREE, [facility] [id number] Univers 12:00:00 12:00:00 ATTENDING ity [facility] 2020-05-02 2020-05-02 Telephone Srikanth Rodriguez [facility] 1.2.840.114 [id number] Univers 00:00:00 00:00:00 [place] SPECIALTY 350.1.13.10 it[place] C[place] AT [phone] Pr hollis FREEMAN 072 [facility] 2020-05-01 2020-05-01 Patient Doctor UNIVERSIT 1.2.409.597 [id number] Univers 00:00:00 00:00:00 Secure Msg Unassigned, Y HEALTH 350.1.13.10 ity of [place] CL[place] [id number] [facility] [address] 2020-04-29 2020-04-29 Office Cecilio Thurman [facility] 1.2.8 40.114 [id number] Univers 13:47:17 14:20:54 Visit Kleber Meza PRIMARY 350.1.13.10 it[place] C[place] [id number] Pr hollis Burkett [place] 2020-04-29 2020-04-29 Outpatient R DERRICK [facility] [id number] Univers 13:40:00 13:40:00 KLEBER ity [facility] 2020-04-29 2020-04-29 Case [facility] 1.2.840.114 [id number] Univers 00:00:00 00:00:00 Management Baring PRIMARY 350.1.13.10 it[place] of [place] [id number] Pr dical [address] 2020-04-29 2020-04-29 [facility] 1.2.840.114 [id number] Univers 00:00:00 00:00:00 Baring PRIMARY 350.1.13.10 it y of C[place] [id number] Pr dical [address] 2020-04-28 2020-04-28 Telephone [facility] 1.2.840.114 [id number] Univers 00:00:00 00:00:00 Linda PRIMARY 350.1.13.10 it y of C[place].2.[place] [id number] Pr dical [address] 2020-04-27 2020-04-27 [facility] 1.2.840.114 [id number] Univers 00:00:00 00:00:00 Baring PRIMARY 350.1.13.10 it y of [place] 4[place] [id number] Pr dical [address] 2020-04-25 2020-04-25 Emergency X [facility] ERT [id number] Univers 10:51:14 14:01:00 TIFFANY quiñones o f [facility] 2020-04-25 2020-04-25 Emergency Tiffany Martin TRAUMA 1.2. 840.114 [id number] Univers 10:51:14 14:01:00 Tiffany Martin CENTER 350.1.13.1 0 [place] [id number] [facility] [address] 2020-04-24 2020-04-24 Outpatient R YONYUC [facility] [id number] Univers 14:44:30 23:59:00 LINDA ity of [facility] 2020-04-24 2020-04-24 [facility] 1.2.840.114 [id number] Univers 14:30:00 23:59:00 Encounter Linda Y HEALTH 350.1.13.10 ity of CLINICS 4[place] [id number] [facility] [address] 2020-04-24 2020-04-24 Office Pool, [facility] Resident UNIVERSIT 1.2.8 40.114 [id number] Univers 13:47:38 14:42:13 Visit Romana Owen Y HEALTH 350.1.13.10 it[place] of CL[place] [id number] [address] 2020-04-23 2020-04-23 Outpatient R SRIKANTH RODRIGUEZ [facility] [id number] Univers 14:00:00 14:00:00 ity of [facility] 2020-04-17 2020-04-17 Telephone Brianna Natarajan UNIVERSIT 1.2.840.114 [id number] Univers 00:00:00 00:00:00 Y HEALTH 350.1.13.10 i ty of CL[place]ICS [place] [id number] [address] 2020-04-16 2020-04-16 Telephone [place] UNIVERSIT 1.2.840.114 [id number] Univers 00:00:00 00:00:00 Jacqui Y HEALTH 350.1.13.10 i ty of CL[place] [id number] [address] 2020-04-15 2020-04-15 Patient Doctor UNIVERSIT 1.2.993.699 [id number] Univers 00:00:00 00:00:00 Secure Msg Unassigned, Y HEALTH 350.1.13.10 ity of [place] CL[place] 4[place] [id number] [place] [id number] [place] 2020-04-14 2020-04-14 Outpatient Laurie BHAKTA [facility] [id number] Univers 16:42:17 23:59:00 LINDA ity of [facility] 2020-04-14 2020-04-14 Outpatient Laurie BHAKTA [facility] [id number] Univers 16:10:00 16:10:00 LINDA ity [facility] 2020-04-11 2020-04-11 Outpatient R CELIO [facility] [id number] Univers 15:00:00 15:00:00 LYDIA ity [facility] 2020-04-10 2020-04-10 Office Pool, [facility] Resident UNIVERSIT 1.2.8 40.114 [id number] Univers 15:09:43 16:52:34 Visit Romana Owen [facility] 350.1.13.10 ity of CL[place] [id number] [address] 2020-04-10 2020-04-10 Outpatient R [facility] [id number] Univers 15:00:00 15:00:00 ity [facility] 2020-04-09 2020-04-09 Urgent Zaira Jenkins [facility] 1.2.840.1 14 [id number] Univers 15:56:44 16:39:13 Care Unknown, Attending SPECIALTY 350.1.13. 10 [place] C[place] AT [phone] Pr hollis FREEMAN 370 [facility] 2020-04-09 2020-04-09 Nurse 2Krista Adult Infusion Nurse [facility] 1.2.840.114 [id number] Univers 13:28:47 14:58:47 Visit Srikanth Rodriguez SPECIALTY 350.1.13.1 0 it[place] of C[place] AT [id number] Pr hollis FREEMAN 053 [facility] 2020-04-09 2020-04-09 Outpatient R SRIKANTH RODRIGUEZ [facility] [id number] Univers 13:30:00 13:30:00 ity of [facility] 2020-04-07 2020-04-07 Emergency X GARO [facility] ERT [id number] Univers 20:39:00 22:18:00 CYNISE ity [facility] 2020-04-07 2020-04-07 Emergency Garo [facility] 1.2.460.956 [id number] Univers 20:39:00 22:18:00 [facility] 350.1.13.10 it [place] [phone] [address] ([facility]) 2020-04-03 2020-04-03 Office Shalini LUIS 1.2.840.114 [id number] [facility] 13:09:47 13:39:47 Visit Karel AMBULATOR 350.1.13.21 [place] Fredy Y 0.2.7.2.686 of [id number] [facility] 800 e 2020-04-03 2020-04-03 Refsangeeta Meza [facility] 1.2.840.114 [id number] Univers 00:00:00 00:00:00 Kleber PRIMARY 350.1.13.10 it y of C[place] [id number] Pr dicshelby [facility] Branch 2020-04-02 2020-04-02 Nurse 2, Krista Adult Infusion Nurse [facility] 1.2.840.114 [id number] Univers 13:26:34 14:33:48 Visit Srikanth Rodriguez SPECIALTY 350.1.13.1 0 it[place] C[place] AT [phone] Pr dicshelby VICTORY 053 [facility] 2020-04-02 2020-04-02 Outpatient SRIKANTH HER [facility] [id number] Univers 13:30:00 13:30:00 ity of [facility] 2020-02-28 2020-03-30 Telemedici Adriana [facility] 1.2.840.114 [id number] Univers 08:12:36 22:44:50 ne Visit [facility] 350.1.13.10 i ty of [place] [phone] [facility] [address] Office Building 2020-03-27 2020-03-27 Rolanda Vyas [facility] 1.2.840.114 [id number] Univers 00:00:00 00:00:00 Britton HEALTH 350.1.13.10 it [place] of [place].7.2.[place] [id number] [facility] Primary & [address] Specialty Care 2020-03-26 2020-03-26 Outpatient R SRIKANTH RODRIGUEZ [facility] [id number] Univers 14:00:00 14:00:00 ity of [facility] 2020-03-21 2020-03-21 Outpatient R KINGSTON, [facility] [id number] Univers 11:00:00 11:00:00 [facility] 2020-03-21 2020-03-21 Video Game Developer [facility] 1.2.773.073 [id number] Univers 07:59:35 08:59:35 Visit Jess MULTISPEC 350.1.13.10 ity of I[place].2.[place].2.[place] [id number] [address] [facility] 2020-03-20 2020-03-20 [facility] [id number] Univers 10:00:00 10:00:00 SAM quiñones o f [facility] 2020-03-17 2020-03-17 Outpatient [facility] [id number] Univers 09:30:00 09:30:00 [facility] 2020-03-17 2020-03-17 Telephone [facility] 1.2.840.114 [id number] Univers 00:00:00 00:00:00 [place] SPECIALTY 350.1.13.10 ity of CARE 4.2.7.2.686 [facility] AT [id number] Pr hollis FREEMAN [address] [place] [address] 2020-03-14 2020-03-14 Telemedici [facility]UN[facility] 1.2.840.114 [id number] Univers 10:42:14 16:16:50 ne Visit Lydia MAJOPEC 350.1.13.10 ity of IALTY 4.2.7.2.686 [facility] [phone] [facility] ABREU [address] DIABETES CLINIC 2020-03-14 2020-03-14 Outpatient [facility] [id number] Univers 13:30:00 13:30:00 [facility] 2020-03-12 2020-03-12 Outpatient [facility] [id number] Univers 10:20:42 23:59:00 WILLIAM ity of [facility] 2020-03-12 2020-03-12 [facility] Pattie [facility] 1.2.840.114 [id number] Univers 10:20:00 23:59:00 Encounter William [facility] 350.1.13.10 ity of [facility] 4.2.7.2.[place] [id number] [facility] [address] 2020-03-12 2020-03-12 Outpatient R SRIKANTH RODRIGUEZ [facility] [id number] Univers 14:00:00 14:00:00 ity of [facility] 2020-03-10 2020-03-10 [facility]medici [facility] 1.2.840.114 [id number] Univers 07:09:47 17:10:12 ne Visit Kleber PRIMARY 350.1.13.10 i ty of [facility] 4.2.7.2.[place] [id number] Pr dical [address] 2020-03-10 2020-03-10 Outpatient R [facility] [id number] Univers 16:20:00 16:20:00 KLEBER ity of [facility] 2020-03-05 2020-03-05 [facility] 1..423.474 [id number] Univers 00:00:00 00:00:00 Nathaniel L PRIMARY 350.1.13.10 ity of [facility] 4.2.7.2.[place] [id number] Pr dical [address] 2020-03-03 2020-03-04 Outpatient X GABI [facility] [id number] Univers 19:39:18 17:40:00 SINDI ity of [facility] 2020-03-03 2020-03-04 Emergency Valerie Singh 1.2.840. 114 [id number] Univers 19:39:18 17:40:00 Sindi Shepard 350.1.13.10 ity [facility] 4.2.7.2.686 Mir as [phone] [facility] [address] 2020-03-04 2020-03-04 Outpatient R IBIDAPO-OBE [facility] [id number] Univers 11:20:00 11:20:00 , ity of OYETOKUNBO [facility] 2020-03-03 2020-03-03 Telemedici [facility] 1.2.840.114 [id number] Univers 07:49:33 13:10:29 ne Visit Nik SPECIALTY 350.1.13.10 it[place] C[place] AT [id number] Pr dical WEEMSLexi [address] [place] [address] 2020-03-03 2020-03-03 Outpatient [facility] [id number] Univers 12:50:00 12:50:00 NIK ity [facility] 2020-03-03 2020-03-03 Telephone [facility] 1.2.840.114 [id number] Univers 00:00:00 00:00:00 Baring PRIMARY 350.1.13.10 it y [place] CARE [place].2.[place].2.[place] [facility] [phone] Pr hollis [address] [place] [address] 2020-03-03 2020-03-03 Nurse WU Narvaez 1.2.840.114 [id number] Univers 00:00:00 00:00:00 Triage Roslyn ARELLAON 350.1.13.10 it y of HOSPITAL 4.2.7.2.686 Mir as [id number] [address] 2020-03-01 2020-03-01 Outpatient [facility] [id number] Univers 13:30:00 13:30:00 DIAMOND ity [facility] 2020-03-01 2020-03-01 Nurse Ryan REGAN 1.2.840.114 [id number] Univers 00:00:00 00:00:00 Triage Laura humphrey 350.1.13.10 ity of HOSPITAL 4.2.7.2.686 Mir as [id number] [address] 2020-02-29 2020-02-29 Telephone [facility] 1.2.840.114 [id number] Univers 00:00:00 00:00:00 Nik SPECIALTY 350.1.13.10 it[place] AT [id number] Pr hollis FREEMAN 198 [facility] 2020-02-28 2020-02-28 Outpatient R ADRIANA [facility] [id number] Univers 14:00:00 14:00:00 ANIL ity [facility] 2020-02-27 2020-02-27 Nurse 2, Krista Adult Infusion Nurse [facility] 1.2.840.114 [id number] Univers 13:43:37 15:08:26 Visit Srikanth Rodriguez SPECIALTY 350.1.13.1 0 it[place] C[place] AT [id number] Pr hollis FREEMAN 053 [facility] 2020-02-27 2020-02-27 Outpatient R MICHAEL SRIKANTH [facility] [id number] Univers 14:00:00 14:00:00 ity [facility] 2020-02-26 2020-02-26 Outpatient R MICHAEL [facility] [id number] Univers 13:00:00 13:00:00 ity [facility] 2020-02-26 2020-02-26 Telemedici [facility] 1.2.840.114 [id number] Univers 07:03:35 07:33:35 ne Visit Delvissons SPECIALTY 350.1.13.10 ity [place] C[place] AT [phone] Pr hollis FREEMAN 072 [facility] 2020-02-26 2020-02-26 Telephone lacie [facility] 1.2.840.114 [id number] Univers 00:00:00 00:00:00 [place] SPECIALTY 350.1.13.10 ity of [place] AT [phone] Pr hollis FREEMAN 053 [facility] 2020-02-21 2020-02-21 Outpatient R ARACELI [facility] [id number] Univers 15:36:51 23:59:00 NIK ity [facility] 2020-02-21 2020-02-21 [facility] 1.2.840.114 [id number] Univers 15:36:00 23:59:00 Encounter Nik SPECIALTY 350.1.13.10 it[place] AT [id number] Pr dical VICTORY 807 [facility] 2020-02-21 2020-02-21 Outpatient R ARACELI, [facility] [id number] Univers 15:45:00 15:45:00 NIK ity [facility] 2020-02-18 2020-02-21 Office Dennisanthony Miller Hollyjimmie [facility] 1.2.840.114 [id number] Univers 16:05:04 09:00:43 Visit Paz Kohler 350.1.13.10 ity of C[place].2.[place] [id number] Pr sanjayshelby Burk[address] 2020-02-20 2020-02-20 Outpatient R CHARI [facility] [id number] Univers 16:20:00 16:20:00 WU ity [facility] 2020-02-19 2020-02-19 Telephone Srikanth Rodriguez [facility] 1.2.840.114 [id number] Univers 00:00:00 00:00:00 Clare SPECIALTY 350.1.13.10 it[place] AT [id number] Pr sanjayshelby FREEMAN 072 [facility] 2020-02-18 2020-02-18 Outpatient R JOSE F [facility] [id number] Univers 16:00:00 16:00:00 PAZ dawson [facility] 2020-02-18 2020-02-18 Telephone Ty [facility] 1.2.881.677 [id number] Univers 00:00:00 00:00:00 Nathaniel Reynoso FAMILY 350.1.13.10 ity of MEDICINE 4.2.7.2.686 Mir as CLINIC - [phone] [address] 2020-02-13 2020-02-13 Nurse 2Krista Adult Infusion Nurse [facility] 1.2.840.114 [id number] Univers 13:56:14 15:26:14 Visit Srikanth Rodriguez SPECIALTY 350.1.13.1 0 ity of C[place].2.[place] AT [id number] Pr hollis FREEMAN 053 [facility] 2020-02-13 2020-02-13 Outpatient R SRIKANTH RODRIGUEZ [facility] [id number] Univers 14:00:00 14:00:00 ity of [facility] 2020-02-13 2020-02-13 Telephone Srikanth Rodriguez [facility] 1.2.840.114 [id number] Univers 00:00:00 00:00:00 [place] SPECIALTY 350.1.13.10 ity of C[place] AT [id number] Pr hollis FREEMAN 072 [facility] 2020-02-11 2020-02-12 Telemedici DerrickUN[facility] 1.2.840.114 [id number] Univers 13:06:01 16:44:03 ne Visit Baring PRIMARY 350.1.13.10 i ty of CARE 4.2.7.2.[place] 091.0702360 Pr hollis [address] 2020-02-11 2020-02-11 Outpatient R ARACELI [facility] [id number] Univers 10:00:00 10:00:00 NIK ity of [facility] 2020-02-11 2020-02-11 [facility] t[facility]cal[facility]ai IrenecassieUN[facility] 1.2.840.114 [id number] Univers 07:58:58 08:13:58 ne Visit Nik SPECIALTY 350.1.13.10 ity of CARE 4.2.7.2.686 [facility] CENTER AT [id number] Pr hollis FREEMAN 198 [facility] 2020-02-04 2020-02-04 Telephone Ar[facility]UN[facility] 1.2.840.114 [id number] Univers 00:00:00 00:00:00 Nik PRIMARY 350.1.13.10 it y of CARE 4.[place].2.[place] [phone] Pr hollis [address] 2020-02-01 2020-02-01 Urgent Tobi Vyas [facility] 1.2.840.114 [id number] Univers 21:00:31 21:15:31 Care Unknown, Attending HEALTH 350.1.13.10 [place]2.[place] [facility] [phone] [facility] Primary & [address] Specialty Care 2020-02-01 2020-02-01 Outpatient R DESIREE [facility] [id number] Univers 21:00:00 21:00:00 ATTENDING ity of [facility] 2020-02-01 2020-02-01 Telephone Srikanth Rodriguez [facility] 1.2.840.114 [id number] Univers 00:00:00 00:00:00 [place] SPECIALTY 350.1.13.10 ity of CARE 4.2.7.2.686 [facility] AT [phone] Pr hollis FREEMAN 072 [facility] 2020-01-31 2020-01-31 Telephone Derrick [facility] 1.2.840.114 [id number] Univers 00:00:00 00:00:00 Kleber PRIMARY 350.1.13.10 it y of CARE 4.2.7.2.686 [facility] [phone] Pr hollis [address] 2020-01-29 2020-01-29 Nurse 3Krista Adult Infusion Nurse [facility] 1.2.840.114 [id number] Univers 10:34:46 12:04:46 Visit Srikanth Rodriguezs SPECIALTY 350.1.13.1 0 ity of CARE 4.2.7.2.686 [facility] CENTER AT [phone] Pr hollis FREEMAN 053 [facility] 2020-01-29 2020-01-29 Outpatient R MICHAEL SRIKANTH [facility] [id number] Univers 10:30:00 10:30:00 ity of [facility] 2020-01-28 2020-01-29 Office [facility] 1.2.160.447 [id number] Univers 15:00:18 09:18:52 Visit Delvissons SPECIALTY 350.1.13.10 ity of CARE 4.2.7.2.686 [facility] CENTER AT [phone] Pr hollis FREEMAN [address] [place] [address] 2020-01-28 2020-01-28 Outpatient R SRIKANTH RODRIGUEZ [facility] [id number] Univers 15:00:00 15:00:00 ity of [facility] 2020-01-23 2020-01-23 Outpatient R [facility] [id number] Univers 10:00:00 10:00:00 ity of [facility] 2020-01-21 2020-01-21 Telephone Srikanth Rodriguez [facility] 1.2.840.114 [id number] Univers 00:00:00 00:00:00 Clare SPECIALTY [id number] ity of CARE 4.2.7.2.686 [facility] AT [phone] Pr sanjayshelby FREEMAN 2 [facility] 2020-01-14 2020-01-14 Orders Doctor WU 1.2.840.114 [id number] Univers 00:00:00 00:00:00 Only Unassigned, GILDA 350.1.13.10 ity of Go[place]ner [facility] 4.2.7.2.686 [facility] [id number] [facility] [address] 2020-01-04 2020-01-04 [facility] [id number] Univers 13:00:00 13:40:38 PAZ dawson [facility] 2020-01-04 2020-01-04 [facility] 1.2.840.114 [id number] Univers 12:55:15 13:40:38 Visit Paz POLLOCK 350.1.13.10 ity of IALTY 4.2.7.2.686 [facility] [phone] [facility] AND LOIS [address] [facility] 2020-01-02 2020-01-02 Office LUIS Felix 1.2.840.114 [id number] [facility] 12:33:06 15:28:17 Visit Karel AMBULATOR 350.1.13.21 [facility] 0.2.7.2.686 [phone] [facility] corine 800 e 2020-01-01 2020-01-01 Telephone Joe [facility] 1.2.840.114 [id number] Univers 00:00:00 00:00:00 Christel A HEALTH 350.1.13.10 it y of [place] 4.2.7.2.686 [facility] [phone] [facility] Primary & [address] [facility] 2020-01-01 2020-01-01 Patient Yamile Rodriguezic [facility] 1.2.119.350 [id number] Univers 00:00:00 00:00:00 Secure Msg Robertssalomon SPECIALTY 350.1.13.10 ity of [facility] 4.2.7.2.686 Epifanio [facility] AT [phone] Pr hollis Diez2 [facility] 2019-12-31 2019-12-31 [facility]phone [facility] [id number] Univers 00:00:00 00:00:00 Nathaniel Reynoso MANUAL QA TESTER 350.1.13.10 ity of [facility] 4.2.7.2.686 Mir as MATERNAL [phone] Med ical & CHILD 110 [facility] 2019-12-29 2019-12-29 Outpatient Laurie DIAZ [facility] [id number] Univers 12:15:00 13:04:23 CHRISTEL quiñones [facility] 2019-12-29 2019-12-29 Urgent Christel Diaz [facility] 1.2.840.1 [id number] Univers 12:09:35 12:24:35 Care Unknown, Attending HEALTH 350.1.13.10 ity of [place] 4.2.7.2.686 [facility] [phone] [facility] Primary & [facility] Branch Specialty Care 2019-12-28 2019-12-28 Unhairing Inspector Lab, [facility] 1.2.840. 114 [id number] Univers 09:59:49 10:18:27 Visit Nathaniel Crawford MANUAL QA TESTER 350.1.13.10 ity [facility] 4.2.7.2.686 Mir as MATERNAL [phone] Med ical & CHILD 130 [facility] 2019-12-28 2019-12-28 Outpatient R TY [facility] [id number] Univers 10:00:00 10:14:57 NATHANIEL ding f [facility] 2019-12-27 2019-12-27 Office [facility] 1.2.840.114 [id number] Univers 14:54:36 16:53:18 Visit Nathaniel Reynoso MANUAL QA TESTER 350.1.13.10 ity [facility] 4.2.7.2.686 Mir as MATERNAL [phone] Med ical & CHILD 130 [facility] CLINIC-TE [facility] 2019-12-27 2019-12-27 Outpatient Laurie CRAWFORD [facility] [id number] Univers 14:45:00 16:53:18 NATHANIEL blancoy o f [facility] 2019-12-27 2019-12-27 Orders Doctor WU 1.2.840.114 [id number] Univers 00:00:00 00:00:00 Only Unassigned, GILDA 350.1.13.10 ity of [place] 4.2.7.2.686 Imr [phone] [facility] [address] 2019-12-26 2019-12-26 Telephone Piercelacie Srikanth [facility] 1.2.840.114 [id number] Univers 00:00:00 00:00:00 Clare SPECIALTY 350.1.13.10 ity of CARE 4.2.7.2.686 [facility] AT [phone] Pr sanjayshelby EMILELexi 2 [facility] 2019-12-25 2019-12-25 Outpatient Laurie COYLE [facility] [id number] Univers 15:40:00 15:40:00 ADELFO quiñones [facility] 2019-12-14 2019-12-14 Outpatient Laurie PISANO [facility] [id number] Univers 08:43:36 23:59:00 MICHAEL quiñones [facility] 2019-12-14 2019-12-14 [facility] Michael Pisano [facility] UNIVERSIT 1.2. 840.114 [id number] Univers 08:43:00 23:59:00 Encounter Genia Valdez HEALTH 350.1.13.10 ity of Lexy Beatty [facility] 4.2.7.2.686 [place] [id number] [facility] [address] 2019-11-28 2019-12-13 Ancillary Therapy-Krista MazariegosZcv-He-Zcwjt [facility] 1.2.840.114 [id number] Univers 12:06:28 08:53:25 Visit Adelfo [facility] 350.1.13.10 ity of [place] 4.2.7.2.686 [facility] [phone] [facility] 178 [facility] ([facility] 2019-12-11 2019-12-11 Rolanda Duarte [facility] 1.2.840.114 [id number] Univers 00:00:00 00:00:00 [facility] 350.1.13.10 it y of [place].2.[place] [facility] [phone] Med ical [place] 044 [facility] 2019-12-10 2019-12-10 Outpatient R [facility] [id number] Univers 15:07:52 23:59:00 LINDA ity [facility] 2019-12-10 2019-12-10 [facility] 1.2.840.114 [id number] Univers 15:07:00 23:59:00 Encounter Linda SPECIALTY 350.1.13.10 it[place] [phone] Pr hollis FREEMAN 809 [facility] 2019-12-10 2019-12-10 Office [facility] 1.2.691.288 [id number] Univers 14:54:06 16:16:04 Visit Linda SPECIALTY 350.1.13.10 it[place] [phone] Pr hollis BAPTISTE 198 [facility] 2019-12-08 2019-12-08 Nurse WU Coyle 1.2.840.114 [id number] Univers 00:00:00 00:00:00 Triage Shelia Ramirez GILDA 350.1.13.10 ity of [facility] 4.2.7.2.686 Mir as [phone] [address] 2019-12-04 2019-12-04 Outpatient R [facility] [id number] Univers 08:00:00 08:00:00 YEN ity [facility] 2019-11-28 2019-11-28 Outpatient R [facility] [id number] Univers 11:05:21 23:59:00 WU y [facility] 2019-11-28 2019-11-28 [facility] 1.2.840.114 [id number] Univers 11:00:00 23:59:00 Encounter Wu SPECIALTY 350.1.13.10 it[place] [phone] Pr dical VICTORY 809 [facility] 2019-11-28 2019-11-28 Office [facility] 1.2.429.360 [id number] Univers 10:29:46 14:59:54 Visit Wu SPECIALTY 350.1.13.10 it[place] [phone] Pr dicshelby FREEMAN 198 [facility] 2019-11-28 2019-11-28 Outpatient R JONNA [facility] [id number] Univers 13:00:00 14:32:18 ADELFO lexi [facility] 2019-11-28 2019-11-28 Telephone Srikanth Rodriguez [facility] 1.2.840.114 [id number] Univers 00:00:00 00:00:00 Clare SPECIALTY 350.1.13.10 it[place] [phone] Pr dicshelby FREEMAN 072 [facility] 2019-11-27 2019-11-27 Abstract [facility] 1.2.840.114 [id number] Univers 00:00:00 00:00:00 James SPECIALTY 350.1.13.10 ity of [facility] 4.2.7.2.686 [facility] AT [phone] Pr hollis FREEMAN 198 [facility] 2019-10-31 2019-10-31 Outpatient R JUDITH [facility] [id number] Univers 17:30:00 18:26:51 , MAURICE quiñones [facility] 2019-10-29 2019-10-29 Outpatient R SELMA [facility] [id number] Univers 14:45:00 15:25:54 JACQUI quiñones [facility] 2019-10-25 2019-10-25 Outpatient R ALIYA [facility] [id number] Univers 08:39:35 23:59:00 MICHAEL quiñones [facility] 2019-10-25 2019-10-25 Nurse Room, Pcp Amado Vega [facility] 1.2.8 40.114 [id number] Univers 10:38:55 11:07:23 Visit Pisano, Gunvir Mo PRIMARY 350.1.13.10 ity of C[place].2.[place] [id number] Pr dical 198 Branch 2019-10-15 2019-10-15 Outpatient R CHARI, [facility] [id number] Univers 14:39:55 23:59:00 WU quiñones [facility] 2019-10-15 2019-10-15 Outpatient R CHARI, [facility] [id number] Univers 14:39:55 23:59:00 WU quiñones [facility] 2019-10-03 2019-10-03 Outpatient R RIC, [facility] [id number] Univers 18:26:31 23:59:00 DEION ishmael o [facility] 2019-09-28 2019-09-28 Outpatient R ANANYA, [facility] [id number] Univers 13:30:00 13:16:58 PAZ blancolexi o [facility] 2019-09-19 2019-09-19 Outpatient R CHARI, [facility] [id number] Univers 13:50:00 13:42:15 WU [facility] 2019-09-17 2019-09-17 Outpatient R CHARI, [facility] [id number] Univers 13:37:41 23:59:00 WU [facility] 2019-09-11 2019-09-11 Outpatient R LATONIA, [facility] [id number] Univers 09:00:00 09:00:00 YEN [facility] 2019-08-03 2019-08-03 Office [facility] 1.2.840.114 [id number] Univers 09:19:20 10:01:40 Visit Baring PRIMARY 350.1.13.10 it y of C[place] [phone] [facility] 044 [address] 2019-07-31 2019-07-31 Outpatient R ARACELI, [facility] [id number] Univers 14:29:07 23:59:00 NIK [facility] 2019-07-31 2019-07-31 [facility] DON CharlesIT 1.2.840.114 [id number] Univers 14:15:00 23:59:00 Encounter Nik Y HEALTH 350.1.13.10 ity of CLINICS [place].2.[place] [id number] [facility] 8[address] 2019-07-26 2019-07-26 Outpatient R RONALD [facility] [id number] Univers 13:35:20 23:59:00 ILYA ity of [facility] 2019-07-26 2019-07-26 Hospital [facility] 1.2.840.114 [id number] Univers 13:35:20 23:59:00 Encounter Ilya GRULLON 350.1.13.10 ity of [place].2.686 [place] [id number] [facility] [address] 2019-07-26 2019-07-26 Office [facility] 1.2.804.821 [id number] Univers 13:31:11 15:05:52 Visit Ilya GRULLON 350.1.13.10 it y of [place].2.7.2.[place] [id number] [facility] 198 [address] 2019-07-24 2019-07-24 Rolanda [facility] 1.2.840.114 [id number] Univers 00:00:00 00:00:00 [place]aring PRIMARY 350.1.13.10 it y of C[place].2.[place] [id number] Pr dical 044 Branch 2019-07-23 2019-07-23 Telephone Adriana [facility] 1.2.021.529 [id number] Univers 00:00:00 00:00:00 [facility] 350.1.13.10 it y [place] [phone] [facility] 059 [address] Office Building 2019-07-22 2019-07-22 Nurse WU Long 1.2.840.114 [id number] Univers 00:00:00 00:00:00 Triage Jeannette ARELLANO 350.1.13.10 i ty of HOSPITAL 4.2.7.2.686 Mir as [id number] [facility] 019 Branch 2019-07-22 2019-07-22 Rolanda Meza [facility] 1.2.840.114 [id number] Univers 00:00:00 00:00:00 Kleber PRIMARY 350.1.13.10 it y of C[place].2.[place].2.[place] [phone] Pr hollis 044 [address] 2019-07-21 2019-07-21 Refsangeeta [facility]UN[facility] 1.2.840.114 [id number] Univers 00:00:00 00:00:00 [place] PRIMARY 350.1.13.10 it y of C[place].2.[place].2.[place] [phone] Pr hollis 044 [address] 2019-07-17 2019-07-17 Orders Doctor WU 1.2.840.114 [id number] Univers 00:00:00 00:00:00 Only Unassigned, GILDA 350.1.13.10 ity of [place] [facility] 4.2.7.2.686 Mir as [id number] [facility] 009 [address] 2019-07-17 2019-07-17 Telephone Srikanth Rodriguez [facility] 1.2.840.114 [id number] Univers 00:00:00 00:00:00 Winsons SPECIALTY 350.1.13.10 ity of CARE 4.2.7.2.686 [place] AT [phone] Pr hollis FREEMAN [address] [place] [address] 2019-07-09 2019-07-09 Outpatient R TAMIR [facility] [id number] Univers 00:00:00 00:00:00 FORTINO quiñones [facility] 2019-07-06 2019-07-06 Outpatient R ARCELIA [facility] [id number] Univers 21:25:00 23:59:00 SERGE ity [facility] 2019-07-06 2019-07-06 Hospital Arcelia [facility] 1.2.086.826 [id number] Univers 21:25:00 23:59:[address] [facility] 350.1.13.10 it[place] of [place].2.[place] [facility] [phone] [facility] Primary & 808 Branch Specialty Care 2019-07-05 2019-07-05 Patient Isis Alejandra 1.2.840.114 [id number] Univers 00:00:00 00:00:00 Outreach Zabrina Reynoso Garcia 350.1.13.10 ity of [place].2.7.2.[place] [id number] [place] [address] Branch 2019-07-04 2019-07-04 Emergency Lucrecia, [facility] 1.2.840.114 [id number] Univers 14:31:54 19:35:00 [facility] 350.1.13.10 it y [place].2.686 [place] [phone] [address] ([facility]) 2019-07-03 2019-07-03 Telephone [facility] 1.2.840.114 [id number] Univers 00:00:00 00:00:00 [place] SPECIALTY 350.1.13.10 ity of C[place].2.[place].2.[place] AT [phone] Pr hollis WEEMSLexi [address] [place] [address] 2019-07-02 2019-07-02 Telephone [facility] 1.2.840.114 [id number] Univers 00:00:00 00:00:00 [place] SPECIALTY 350.1.13.10 ity of CARE [place].2.[place].2.[place] AT [phone] Pr sanjayVaughan Regional Medical CenterLexi [address] [place] [address] 2019-06-29 2019-06-29 Telephone Srikanth Rodriguez [facility] 1.2.840.114 [id number] Univers 00:00:00 00:00:00 [place] SPECIALTY 350.1.13.10 ity of CARE [place].2.[place].2.[place] AT [phone] Pr sanjayVaughan Regional Medical CenterLexi [address] [place] [address] 2019-06-29 2019-06-29 Telephone Dallin Romero [facility] 1.2.840.114 [id number] Univers 00:00:00 00:00:00 S HEALTH 350.1.13.10 it [place] of [place]2.7.2.686 [place] [phone] [facility] Primary & 231 Branch Specialty Care 2019-06-28 2019-06-28 Urgent Keira Tucker [facility] 1.2.840.11 [id number] [facility] 10:25:47 10:40:47 Care Unknown, Attending HEALTH 350.1.13.10 ity of [place] 4.2.7.2.686 [facility] [phone] [facility] Primary & 370 Branch Specialty Care 2019-06-26 2019-06-26 Rolanda Meza [facility] 1.2.840.114 [id number] Univers 00:00:00 00:00:00 [place] PRIMARY 350.1.13.10 it y of CARE 4.2.7.2.686 [facility] [id number] Pr dical 044 Branch 2019-06-25 2019-06-25 Office LUIS Felix 1.2.840.114 [id number] [facility] 14:12:33 16:30:40 Visit [place] AMBULATOR 350.1.13.21 [facility] 0.2.7.2.686 [id number] [facility] 800 e 2019-06-22 2019-06-22 Telephone [facility] 1.2.840.114 [id number] Univers 00:00:00 00:00:00 Kateryna Liz SPECIALTY 350.1.13.10 ity of CARE 4.2.7.2.686 [facility] AT [phone] Pr sanjayshelby VICTORY 098 [facility] 2019-06-21 2019-06-21 Rolanda [facility] 1.2.840.114 [id number] Univers 00:00:00 00:00:00 [place] PRIMARY 350.1.13.10 it y of CARE 4.2.7.2.686 [facility] [phone] Pr dical 044 Branch 2019-06-21 2019-06-21 [facility] 1.2.840.114 [id number] Univers 00:00:00 00:00:00 Kateryna Liz HEALTH 350.1.13.10 ity of [place] 4.2.7.2.686 [facility] [id number] [facility] Primary & 204 Branch Specialty Care 2019-06-19 2019-06-19 Rolanda Meza [facility] 1.2.840.114 [id number] Univers 00:00:00 00:00:00 Kleber PRIMARY 350.1.13.10 it y [place] C[place]2.[place] [id number] [address] 2019-06-19 2019-06-19 Patient Doctor WU 1.2.840.114 [id number] Univers 00:00:00 00:00:00 Secure Msg Unassigned, GILDA 350.1.13.10 ity of [facility] 4.2.7.2.686 Mir as [id number] [address] 2019-06-18 2019-06-18 Telephone [facility] 1.2.840.114 [id number] Univers 00:00:00 00:00:00 Kateryna Liz SPECIALTY 350.1.13.10 ity of C[place]2.[place] AT [phone] [facility] 204 [facility] 2019-06-16 2019-06-16 Telephone SANTANA Puente 1.2.840.114 [id number] Univers 00:00:00 00:00:00 Mario Y HEALTH 350.1.13.10 i ty of CLINICS 4.2.7.2.[place] [phone] [facility] [address] 2019-06-16 2019-06-16 Case Cindi WU 1.2.840.114 [id number] Univers 00:00:00 00:00:00 Management Mario ARELLANO 350.1.13.10 ity of HOSPITAL 4.2.7.2.686 Mir as [id number] [facility] [address] 2019-06-15 2019-06-15 Office DON Phelan 1.2.840.114 [id number] Univers 08:55:25 09:46:23 Visit Kateryna Liz Y HEALTH 350.1.13.10 ity of CLINICS 4.2.7.2.[place] [id number] [facility] [address] 2019-06-15 2019-06-15 Telephone [facility] 1.2.840.114 [id number] Univers 00:00:00 00:00:00 Kleber PRIMARY 350.1.13.10 it y of CARE [place].2.[place] [id number] Pr dicct [address] 2019-06-15 2019-06-15 Patient Srikanth Rodriguez [facility] 1.2.566.852 [id number] Univers 00:00:00 00:00:00 Secure Msg [place] SPECIALTY 350.1.13.10 ity of CARE [place]2.[place].2.[place] AT [phone] [facility] FREEMAN [address] [place] [address] 2019-06-13 2019-06-13 Telephone [facility] 1.2.840.114 [id number] Univers 00:00:00 00:00:00 Kleber PRIMARY 350.1.13.10 it y of C[place] [phone] [address] 2019-06-13 2019-06-13 Tele[facility] 1.2.840.114 [id number] Univers 00:00:00 00:00:00 Kleber PRIMARY 350.1.13.10 it y of C[place] [id number] [address] 2019-06-13 2019-06-13 Patient Derrick [facility] 1.2.840.114 [id number] Univers 00:00:00 00:00:00 Secure Msg [place] PRIMARY 350.1.13.10 ity of C[place].2.[place] [id number] [address] 2019-06-07 2019-06-07 Patient Doctor REGAN 1.2.840.114 [id number] Univers 00:00:00 00:00:00 Secure Msg Unassigned, GILDA 350.1.13.10 ity of [facility] 4.2.7.2.686 Mir as [phone] [address] 2019-06-04 2019-06-04 Outpatient R ARACELI [facility] [id number] Univers 08:09:47 23:59:00 NIK ity of [facility] 2019-06-04 2019-06-04 Office Araceli [facility] 1.2.840.114 [id number] Univers 07:44:05 08:44:10 Visit Nik SPECIALTY 350.1.13.10 ity of CARE [place].2.[place] AT [phone] Pr hollis FREEMAN 198 [facility] 2019-06-01 2019-06-01 Patient Derrick [facility] 1.2.840.114 [id number] Univers 00:00:00 00:00:00 Secure Msg Kleber PRIMARY 350.1.13.10 ity of C[place] 4.2.[place].2.[place] [id number] Pr hollis [address] 2019-05-18 2019-05-18 Letter Chari [facility] 1.2.664.788 [id number] Univers 00:00:00 00:00:00 (Out) Wu PRIMARY 350.1.13.10 it y of C[place] 4.2.[place].2.[place] [id number] Pr hollis [address] 2019-05-11 2019-05-11 Patient Srikanth Rodriguez [facility] 1.2.172.481 [id number] Univers 00:00:00 00:00:00 Secure Msg [place] SPECIALTY 350.1.13.10 ity [place].2.[place] [id number] Pr hollis FREEMAN 072 [facility] 2019-05-02 2019-05-02 Outpatient Laurie PISANO [facility] [id number] Univers 08:30:56 15:20:00 MICHAEL [facility] 2019-04-20 2019-04-20 Outpatient Laurie LEMON [facility] [id number] Univers 21:15:00 23:59:00 WOJCIECH [facility] 2019-04-16 2019-04-16 Outpatient Laurie FERRIS [facility] [id number] Univers 08:34:20 23:59:00 CORY [facility] 2019-03-29 2019-03-29 Outpatient DERIK WEST [facility] [id number] Univers 18:55:00 23:59:00 ity [facility] 2019-01-16 2019-01-16 Outpatient Laurie ARZOLA [facility] [id number] Univers 13:20:01 23:59:00 MERT quiñones of [facility] Results Test Description Test Time Test Comments Results Result Comments Source POCT GLUCOSE (AUTOMATED) 2023-01-07 12:36:14 Test Item Value Reference Range Interpretation Comme nts POCT GLU (test code = 3413159432) 157 mg/dL 70-110 H Lab Interpretation (test code = 14164-6) [facility] 12:36:14 Test Item Value Reference Range Interpretation Comments POCT GLU (test code = 9000110961) 157 mg/dL 70-110 H Lab Interpretation (test code = Abnormal 80928-5) [facility] [id number] 12:30:00 Test Item Value Reference Range Interpretation Comments POCT PREG (test code = 1605) Negative On board controls acceptable with C Yes Line (test code = 3574) POCT PREG LOT # (test code = 3575) POCT PREG TEST DATE (test code = 3576) [facility] [id number] 12:30:00 Test Item Value Reference Range Interpretation Comments POCT PREG (test code = 1605) Negative On board controls acceptable with C Yes Line (test code = 3574) POCT PREG LOT # (test code = 3575) POCT PREG TEST DATE (test code = 3576) [facility] WITH [id number] 03:34:04 Test Item Value Reference Range Interpretation Comments WBC (test code = 7.30 See_Comment [Automated 0790-2) message] The sy stem which generated this result transmitted reference range : 4.30 - 11.10 10*3/?L. The reference range was not used to interpret this result as normal/abnormal . RBC (test code = 4.39 See_Comment [Automated 480-8) message] The sy stem which generated this result transmitted reference range : 3.93 - 5.25 10*6/?L. The reference range was not used to interpret this result as normal/abnormal . HGB (test code = 12.5 g/dL 11.6-15.0 718-7) HCT (test code = 38.2 % 35.7-45.2 4544-3) MCV (test code = 87.0 fL 80.6-95.5 787-2) MCH (test code = 28.5 pg 25.9-32.8 785-6) MCHC (test code = 32.7 g/dL 31.6-35.1 786-4) RDW-SD (test code = 41.3 fL 39.0-49.9 85008-3) RDW-CV (test code = 13.2 % 12.0-15.5 788-0) PLT (test code = 273 See_Comment [Automated 777-3) message] The sy stem which generated this result transmitted reference range : 166 - 358 10*3/ ?L. The reference r maurice was not used to interpret this result as normal/abnormal . MPV (test code = 9.3 fL 9.5-12.9 L 10097-2) NRBC/100 WBC (test 0.0 See_Comment [Automat ed code = 7388402909) message] The system which generated this result transmitted reference range : 0.0 - 10.0 /100 WBCs. The refer ence range was not u sed to interpret th is result as normal/abnormal . NRBC x10^3 (test code See_Comment [Auto mated = 5904733260) message] The s ystem which generated this result transmitted reference range : 10*3/?L. The reference range was not used to interpret this result as normal/abnormal . GRAN MAT (NEUT) % 57.5 % (test code = 770-8) IMM GRAN % (test code 0.40 % = 7082142929) LYMPH % (test code = 32.3 % 736-9) MONO % (test code = 6.8 % 5905-5) EOS % (test code = 2.6 % 713-8) BASO % (test code = 0.4 % 706-2) GRAN MAT x10^3(ANC) 4.19 10*3/uL 1.88-7.09 (test code = 6780990482) IMM GRAN x10^3 (test 0.03 10*3/uL 0.00-0.06 code = 4998514447) LYMPH x10^3 (test code 2.36 10*3/uL 1.32-3.29 = 731-0) MONO x10^3 (test code 0.50 10*3/uL 0.33-0.92 = 742-7) EOS x10^3 (test code = 0.19 10*3/uL 0.03-0.39 711-2) BASO x10^3 (test code 0.03 10*3/uL 0.01-0.07 = 704-7) Lab Interpretation Abnormal (test code = 84040-3) [facility] SARS-COV-2 ANTIGEN (BINAX NOW)2022-11-10 22:55:00 Test Item Value Reference Range Interpretation Comments POCT SARS-COV-2 ANTIGEN (test code = Positive Not Detected A 72511-5) On board controls acceptable with C Yes Line (test code = 3574) Lab Interpretation (test code = Abnormal 62711-6) [facility] MOLECULAR [id number] 22:21:48 Test Item Value Reference Range Interpretation Comments POCT Molecular FluA (test code = Negative Negative 78925-1) POCT Molecular FluB (test code = Negative Negative 77826-6) Lab Interpretation (test code = Normal 55254-4) [facility] MOLECULAR [id number] 22:15:32 Test Item Value Reference Range Interpretation Comments POCT Molecular Strep (test code = Negative Negative 51294-0) Lab Interpretation (test code = Normal 47563-8) [id number] 19:59:08 Test Item Value Reference Range Interpretation Comments MEDICATION 1 SEE NOTE No Information Provided (test code = Reference range indicates 82151) cutoff for posi tive result determination. Specimen Type: Urine Urine sonido g and metabolite conc entrations are dependent on ma nyfactors, including patie nt compliance, drug dosing, do sing interval,indivi dual variation in drug absorpt ion and metabolism, urineconcentrat ion, and limitations of testing. Assay is intended for medical purposes only, not for forensic use. T hese tests were developed and t heir performance characteristics determined by [facility] ([facility]). These nieto ve not beencleared or approved by the U.[place]. Food and D rug Administration (FDA).The FDA has determined that such clearance or ap proval is notnecessary. T hese tests are used for clinic al purposes and should not diane garded as investigational or for research. [facility] i s qualified toperform high complexity testing under t he Clinical LaboratoryImpro vement Amendments (CLI A). Unless Otherwise Indic ated, All Testing Perform ed At: [facility], [address] [place] [address] Laboratory Dire ctor: Keon Xiao M.D. CLIA Number [id number] [place]. [id number] [facility]ID[facility] [id number] 19:59:08 Test Item Value Reference Range Interpretation Comments CREATININE (test code 80 mg/dL 20-250 = 77511-4) SPECIFIC GRAVITY 1.003-1.019 (test code = 91216-2) PH (test code = 4.0-11.0 [place] [address]-1) [facility] [address] [place] [address], BUILDING [address], [address] [address] CLIA NO: [id number] Unle ss Otherwise Indic ated, All Testing Perform ed At: [facility], [address] [place] [address] Laboratory Dire ctor: Keon valdes M.D. CLIA Number [id number] [place] [address]21 [facility] W/SCREEN/RFL, [id number] 17:53:09 Test Item Value Reference Range Interpretation Comments HT OPIATES, CLASS Negative SCR/RFLX (test code = 11815-6) HT OXYCODONE SCR/RFLX Negative (test code = 09196-8) HT FENTANYL SCR/RFLX Negative (test code = 64578-0) HT BENZO SCR/RFLX (test Negative code = 83569-0) HT AMPHET SCR/RFLX Negative (test code = 18119-1) HT AMPHET, ARMEN SCR/RFLX Negative (test code = 71270-8) HT ILLICIT, CLASS Negative Unless Ot herwise SCR/RFLX (test code = Indica reggie, All Testing 15024-6) Performed At: [facility], [address] [place] [address] Laborator y Director: Keon Xiao M.D. CLIA Number [id number] [facility] [place]reditation [place] o. [id number] GABAPENTIN (test code = Negative 89425) GABAPENTIN RES (test <1000 See_Comment [Autom ated message] code = 00313-8) The system w [employer] generated this result transmitted ref erence range: <=1000. The reference range was not used to int erpret this result as normal/abnormal . PREGABALIN (test code = Positive A 2108) PREGABALIN RES (test >59928 See_Comment H [Autom ated message] code = 47315-6) The system w [employer] generated this result transmitted ref erence range: <=1000. The reference range was not used to int erpret this result as normal/abnormal . HT ETHANOL METAB Negative SCR/RFLX (test code = 21597-9) Lab Interpretation Abnormal (test code = 09845-7) [facility] [id number] 23:38:00 Test Item Value Reference Range Interpretation Comments POCT PREG (test code = 1605) negative On board controls acceptable with present C Line (test code = 3574) POCT PREG LOT # (test code = 3575) [id number] POCT PREG TEST DATE (test 2024-02-12 code = 3576) Lab Interpretation (test code = Normal 02409-0) [facility] [id number] 07:39:00 Test Item Value Reference Range Interpretation Comments POCT PREG (test code = 1605) NEGATIVE On board controls acceptable with Present C Line (test code = 3574) POCT PREG LOT # (test code = 3575) [id number] POCT PREG TEST DATE (test 2024-02-12 code = 3576) Lab Interpretation (test code = Normal 04396-0) [facility] [id number] 06:15:55 Test Item Value Reference Interpretation Comments Range TROPONIN I (test 0.011 ng/mL See_Comment [Automated code = 3539340765) message] The system which generated this result transmitted reference range : <=0.034. The reference range was not used to interpret this result as normal/abnormal . CLAIRE (test code = Reference (Normal) CLAIRE) Range (defined by the 99th percentile reference limit): <= 0.034 ng/mL Note: Cardiac troponin begins to rise 3-4 hours after the onset of ischemia. Repeat in 4-6 hours if the sample was drawn within 3-4 hours of the onset of the symptom and found normal. Diagnosis of myocardial injury is made with acute changes in cTn concentrations with at least one serial sample above the 99th percentile upper reference limit (URL), taken together with the patient's clinical presentation. Biotin has been reported to cause a negative bias, interpret results relative to patient's use of biotin. Lab Interpretation Normal (test code = 07396-9) [facility]IP[facility]2022-[facility]-04 05:52:16 Test Item Value Reference Range Interpretation Comments LIPASE (test code = 173 U/L 0-220 Hemolyze d specimen [id number]) Lab Interpretation (test Normal code = 36052-5) [facility] WITH [id number] 05:27:13 Test Item Value Reference Range Interpretation Comments WBC (test code = See_Comment H [Automated 1408-2) message] The sy stem which generated this result transmitted reference range : 4.30 - 11.10 10*3/?L. The reference range was not used to interpret this result as normal/abnormal . RBC (test code = See_Comment [Automated 269-8) message] The sy stem which generated this result transmitted reference range : 3.93 - 5.25 10*6/?L. The reference range was not used to interpret this result as normal/abnormal . HGB (test code = 12.4 g/dL 11.6-15.0 718-7) HCT (test code = 36.8 % 35.7-45.2 4544-3) MCV (test code = 88.5 fL 80.6-95.5 787-2) MCH (test code = 29.8 pg 25.9-32.8 785-6) MCHC (test code = 33.7 g/dL 31.6-35.1 786-4) RDW-SD (test code = 42.0 fL 39.0-49.9 64068-0) RDW-CV (test code = 13.1 % 12.0-15.5 788-0) PLT (test code = See_Comment [Automated 777-3) message] The sy stem which generated this result transmitted reference range : 166 - 358 10*3/ ?L. The reference r maurice was not used to interpret this result as normal/abnormal . MPV (test code = 9.7 fL 9.5-12.9 70647-5) NRBC/100 WBC (test See_Comment [Automat ed code = 8687401300) message] The system which generated this result transmitted reference range : 0.0 - 10.0 /100 WBCs. The refer ence range was not u sed to interpret th is result as normal/abnormal . NRBC x10^3 (test code See_Comment [Auto mated = 0372380715) message] The s ystem which generated this result transmitted reference range : 10*3/?L. The reference range was not used to interpret this result as normal/abnormal . GRAN MAT (NEUT) % 58.9 % (test code = 770-8) IMM GRAN % (test code 0.90 % = 1557306777) LYMPH % (test code = 31.3 % 736-9) MONO % (test code = 6.2 % 5905-5) EOS % (test code = 2.2 % 713-8) BASO % (test code = 0.5 % 706-2) GRAN MAT x10^3(ANC) 6.91 10*3/uL 1.88-7.09 (test code = 1850141544) IMM GRAN x10^3 (test 0.11 10*3/uL 0.00-0.06 H code = 8940069120) LYMPH x10^3 (test code 3.68 10*3/uL 1.32-3.29 H = 731-0) MONO x10^3 (test code 0.73 10*3/uL 0.33-0.92 = 742-7) EOS x10^3 (test code = 0.26 10*3/uL 0.03-0.39 711-2) BASO x10^3 (test code 0.06 10*3/uL 0.01-0.07 = 704-7) Lab Interpretation Abnormal (test code = 69267-9) [facility] [id number] 04:18:00 Test Item Value Reference Range Interpretation Comments POCT PREG (test code = 1605) negative On board controls acceptable with present C Line (test code = 3574) POCT PREG LOT # (test code = 3575) [id number] POCT PREG TEST DATE (test 02 12 2024 code = 3576) Lab Interpretation (test code = Normal 18821-9) [facility] [id number] 04:44:00 Test Item Value Reference Range Interpretation Comments POCT PREG (test code = 1605) negative On board controls acceptable with present C Line (test code = 3574) POCT PREG LOT # (test code = 3575) [id number] POCT PREG TEST DATE (test code = 3576) Lab Interpretation (test code = Normal 99050-4) [facility] HEMOGLOBIN A1C [id number] 19:25:00 Test Item Value Reference Range Interpretation Comments POCT HBA1C (test code = 4548-4) 6.3 % 4-6 A Lab Interpretation (test code = Abnormal 50650-2) [facility] HEMOGLOBIN A1C [id number] 19:25:00 Test Item Value Reference Range Interpretation Comments POCT HBA1C (test code = 4548-4) 6.3 % 4-6 A Lab Interpretation (test code = Abnormal 11282-5) [facility] RFLX MICR CULT IF [id number] 15:12:00 Test Item Value Reference Range Interpretation Comments UA GLUCOSE DIPSTICK NORMAL mg/dl NORMAL (test code = DGLUU) UA BILIRUBIN DIPSTICK NEGATIVE mg/dL NEGATIVE (test code = BILU) UA KETONE DIPSTICK NEGATIVE mg/dl NEGATIVE (test code = KETU) UA SPECIFIC GRAVITY 1.020 1.000-1.030 (test code = SGU) UA BLOOD DIPSTICK 10 Ranjit/micL NEGATIVE A (test code = RICHARD) Ranjit/micL UA PH DIPSTICK (test 6.0 5.0-9.0 code = HEATHER) UA PROTEIN DIPSTICK NEGATIVE mg/dl NEGATIVE (test code = PROU) UA UROBILINIOGEN NORMAL mg/dl NORMAL DIPSTICK (test code = URO) UA NITRITE DIPSTICK NEGATIVE NEGATIVE (test code = ESTEFANÍA) UA LEUKOCYTE ESTERASE NEGATIVE NEGATIVE DIPSTICK (test code = Gilberto/micL LEUU) UA WBC (test code = 0-3 WBC/HPF NONE WBCU) UA SQUAMOUS CELLS 2-5 #/hpf (test code = SQU) UA CULTURE NEEDED? NO, WBC<10 Culture Chk Criteria not (test code = UACULT) Criteria met, Ur ine Culture cancelled. Indication for culture: Dysuria/FrequencySpecimen Description: CLEAN CATCHBASIC METABOLIC [id number] 15:12:00 Test Item Value Reference Range Interpretation Comments SODIUM (test code = NA) 139 mmol/l 134.0-147.0 N POTASSIUM (test code = K) 4.2 mmol/L 3.6-5.2 N CHLORIDE (test code = CL) 103 mmol/l 98.0-107.0 N CARBON DIOXIDE (test code = CO2) 30.2 mmol/l 21.0-33.0 N ANION GAP (test code = GAP) 10.0 0-20 N GLUCOSE (test code = GLU) 89 mg/dl 70.0-110.0 N BLOOD UREA NITROGEN (test code = 8 mg/dl 7.0-18.0 N BUN) CREATININE (test code = CREAT) 0.75 mg/dL 0.60-1.30 N GFR NON BLACK (test code = 95 mL/min 105-110 L GFRNONBLACK) GFR BLACK (test code = GFRBLACK) 115 mL/min 127-133 L CALCIUM (test code = CA) 8.2 mg/dl 8.0-10.5 N UR HCG [id number] 15:04:00 Test Item Value Reference Range Interpretation Comments UR HCG QUAL (test code = HCGQLU) NEGATIVE NEGATIVE UA RFLX MICR CULT IF [id number] 15:03:00 Test Item Value Reference Range Interpretation Comments UA GLUCOSE DIPSTICK (test NORMAL mg/dl NORMAL code = DGLUU) UA BILIRUBIN DIPSTICK NEGATIVE mg/dL NEGATIVE (test code = BILU) UA KETONE DIPSTICK (test NEGATIVE mg/dl NEGATIVE code = KETU) UA SPECIFIC GRAVITY (test 1.020 1.000-1.030 code = SGU) UA BLOOD DIPSTICK (test 10 Ranjit/micL Ranjit/micL NEGATIVE A code = RICHARD) UA PH DIPSTICK (test code 6.0 5.0-9.0 = HEATHER) UA PROTEIN DIPSTICK (test NEGATIVE mg/dl NEGATIVE code = PROU) UA UROBILINIOGEN DIPSTICK NORMAL mg/dl NORMAL (test code = URO) UA NITRITE DIPSTICK (test NEGATIVE NEGATIVE code = ESTEFANÍA) UA LEUKOCYTE ESTERASE NEGATIVE Gilberto/micL NEGATIVE DIPSTICK (test code = LEUU) UA WBC (test code = WBCU) WBC/HPF NONE UA CULTURE NEEDED? (test Criteria Culture Chk code = UACULT) Indication for culture: Dysuria/FrequencySpecimen Description: CLEAN CATCHCBC W/AUTO [id number] 15:02:00 Test Item Value Reference Range Interpretation Comments WHITE BLOOD CELL (test code = 6.8 K/mm3 4.5-11.0 N WBC) RED BLOOD CELL (test code = 3.85 M/mm3 3.80-5.20 N RBC) HEMOGLOBIN (test code = HGB) 11.2 gm/dL 12.0-16.0 L HEMATOCRIT (test code = HCT) 34.9 % 36.0-48.0 L MEAN CELL VOLUME (test code = 90.6 UM3 82.0-99.0 N MCV) MEAN CELL HGB (test code = MCH) 29.1 UUG 25.5-32.5 N MEAN CELL HGB CONCETRATION 32.1 gm/dL 29.0-35.5 N (test code = MCHC) RED CELL DISTRIBUTION WIDTH 13.3 % 11.5-15.0 N (test code = RDW) RED CELL DISTRIBUTION WIDTH SD 43.8 fL 34.8-50.2 N (test code = RDW-SD) PLATELET COUNT (test code = 358 K/mm3 150-400 N PLT) MEAN PLATELET VOLUME (test code 9.5 fl 7.4-10.4 N = MPV) NEUTROPHIL % (test code = NT%) 61.5 % 49.0-76.0 N IMMATURE GRANULOCYTE % (test 0.4 % 0.0-0.4 N code = IG%) LYMPHOCYTE % (test code = LY%) 26.3 % 23.0-38.0 N MONOCYTE % (test code = MO%) 7.4 % 1.0-10.0 N EOSINOPHIL % (test code = EO%) 4.0 % 1.0-5.0 N BASOPHIL % (test code = BA%) 0.4 % 0.0-1.0 N NEUTROPHIL # (test code = NT#) 4.2 K/mm3 2.4-6.3 N IMMATURE GRANULOCYTE # (test 0.03 x10 3/uL 0.00-0.07 N code = IG#) LYMPHOCYTE # (test code = LY#) 1.8 K/mm3 1.2-4.0 N MONOCYTE # (test code = MO#) 0.5 K/mm3 0.0-0.6 N EOSINOPHIL # (test code = EO#) 0.3 K/MM3 0.0-0.7 N BASOPHIL # (test code = BA#) 0.0 K/mm3 0.0-0.2 N - US TRANSVAGINAL NON [id number] 14:33:00 FAX: Romero Miller MD [phone] [place]: St: [facility] FAX: Jd France MD [phone] --------- Name: COLLEENALDOBETH [facility] : 1990 Age/S: 30/F [address] [facility] Unit #: [id number] Loc: [address] Phys: [place] [address] Acct: [id number] Dis Date: Status: REG ER PHONE #: [phone] Exam Date: 06/10/2020 [facility] FAX #: [phone] Reason: heavy vaginal bleeding and cramping EXAMS: CPT CODE: [id number] [place] [address] EXAM: Pelvic ultrasound Dictation location: B2 COMPARISON: None INDICATION: Pelvic pain, vaginal bleeding. DISCUSSION: Doss scale and color Doppler transabdominal and transvaginal images of the pelvis were obtained. The uterus measures 7.4 x 3.9 x 4.8 cm. An anterior lower uterine segment myometrial mass measures up to 1.45 cm, suggestive of a fibroid. The endometrial stripe measures 1.4 cm; there are heterogeneous endometrial canal contents, possibly blood. A cervical nabothian cyst is seen. The ovaries are normal in size and echogenicity. The right ovary measures 1.6 x 1.5 x 1.3 cm and the left ovary measures 4.3 x 4 x 3.9. There is a simple left ovarian cyst occupying most of the left ovary; this is almost certainly benign, and no imaging follow-up for this is recommended. Spectral flow to the ovaries is normal. No free fluid is seen. IMPRESSION: 1. Heterogeneous endometrial canal contents, possibly blood. An anterior lower uterine segment 1.4 cm mass is identified, consistent with a fibroid. 2. Simple left ovarian cyst. Theovaries are otherwise unremarkable. There is no evidence of torsion. at 1433 Reported and signed by: Adelfo Benoit M.D. CC: Romero Powell MD; Jd France MD Technologist: [id number] 2; RAF MARTIN Trnnvrd Date/Time/By: 06/10/2020 (1433) : By: [email or web address] PAGE 1 Signed Report FAX: Romero Miller MD [phone] [place]: St: [facility]: Jd France MD [phone] Name: COLLEENALDO LYRIC [facility] : 1990 Age/S: 30/F [address] [facility] Unit #: [id number] Loc: [address] Phys: Jd [place] [address]Poiu: [id number] Dis Date: Status: REG ER PHONE #: [phone] Exam Date: 06/10/2020 1423 FAX #: Reason: heavy vaginal bleeding and cramping EXAMS: CPT CODE: [id number] [place] [address] <Continued> Orig Print D/T: S: 06/10/2020 (3009) PAGE 2 Signed Report- DUP AB/PEL/SC [id number] 14:33:00 FAX: Romero Miller MD [phone] [place]: St: [facility] FAX: Jd France MD [phone] Name: MACIASALDOZABETH [facility] : 1990 Age/S: 30/F [address] [facility] Unit #: [id number] Loc: [address] Phys: [place] [address] Acct: [id number] Dis Date: Status: REG ER PHONE #: [phone] Exam Date: 06/10/2020 1423 FAX #: [phone] Reason: heavy vaginal bleeding andcramping EXAMS: CPT CODE: [id number] DUP AB/PEL/SC COMP 22573 EXAM: Pelvic ultrasound Dictation location: B2 COMPARISON: None INDICATION: Pelvic pain, vaginal bleeding. DISCUSSION: Doss scale and colorDoppler transabdominal and transvaginal images of the pelvis were obtained. The uterus measures 7.4 x 3.9 x 4.8 cm. An anterior lower uterine segment myometrial mass measures up to 1.45 cm, suggestive of a fibroid. The endometrial stripe measures 1.4 cm; there are heterogeneous endometrial canal contents, possibly blood. A cervical nabothian cyst is seen. The ovaries are normal in size and echogenicit y. The right ovary measures 1.6 x 1.5 x 1.3 cm and the left ovary measures 4.3 x 4 x 3.9. There is asimple left ovarian cyst occupying most of the left ovary; this is almost certainly benign, and no imaging follow-up for this is recommended. Spectral flow to the ovaries is normal. No free fluid is seen. IMPRESSION: 1. Heterogeneous endometrial canal contents, possibly blood. An anterior lower uterine segment 1.4 cm mass is identified, consistent with a fibroid. 2. Simple left ovarian cyst. The ovaries are otherwise unremarkable. There is no evidence of torsion. at 1433 Reported and signed by: Adelfo Benoit M.D. CC: Romero Miller MD; Jd France MD Technologist: [id number]; RAF MARTIN Trnscrd Date/Time/By: 06/10/2020 (1523) : By: [email or web address] PAGE 1 Signed Report FAX: Romero Miller MD [phone] [place]: St: [facility] FAX:Jd France MD [phone] Name: COLLEENALDOZABETH [facility] : 1990 Age/S: 30/F [address] [facility] Unit #: [id number] Loc: [address] [place], [place] Phys: [place] [address] Acct: [id number] Dis Date: Status: REG ER PHONE #: [phone] Exam Date: 06/10/2020 1423 FAX #: [phone] Reason: heavy vaginal bleeding and cramping EXAMS: CPT CODE: [id number] DUP AB/PEL/SC COMP 50572 <Continued> Orig Print D/T: S: 06/10/2020 (4505) PAGE 2 Signed Report- US PELVIS [id number] 14:33:00 FAX: Romero Miller MD [phone] [place]: St: [facility] FAX: Jd France MD [phone] Name: ALDO MACIAS [facility] : 1990 Age/S: 30/F [address] [facility] Unit #: [id number] Loc: [address] Phys: [place] [address] Acct: [id number] Dis Date: Status: REG ER PHONE #: [phone] Exam Date: 06/10/2020 1423 FAX #: [phone] Reason: Pelvic Pain EXAMS: CPT CODE: [id number] US PELVIS COMPLETE 91754 EXAM: Pelvic ultrasound Dictation location: B2 COMPARISON: None INDICATION: Pelvic pain, vaginal bleeding. DISCUSSION: Doss scale and color Doppler transabdominaland transvaginal images of the pelvis were obtained. The uterus measures 7.4 x 3.9 x 4.8 cm. An anterior lower uterine segment myometrial mass measures up to 1.45 cm, suggestive of a fibroid. The endometrial stripe measures 1.4 cm; there are heterogeneous endometrial canal contents, possibly blood. Acervical nabothian cyst is seen. The ovaries are normal in size and echogenicity. The right ovary measures 1.6 x 1.5 x 1.3 cm and the left ovary measures 4.3 x 4 x 3.9. There is a simple left ovarian cyst occupying most of the left ovary; this is almost certainly benign, and no imaging follow-up for this is recommended. Spectral flow to the ovaries is normal. No free fluid is seen. IMPRESSION: 1. Hete rogeneous endometrial canal contents, possibly blood. An anterior lower uterine segment 1.4 cm mass is identified, consistent with a fibroid. 2. Simple left ovarian cyst. The ovaries are otherwise unremarkable. There is no evidence of torsion. at 1433 Reported and signed by: Adelfo Benoit M.D. CC: Romero Miller MD; Jd Gonsalez Technologist: RAF MARTIN Trnnvrd Date/Time/By: 06/10/2020 (3458) : By: [email or web address] PAGE 1 SignedReport FAX: Romero Miller MD [phone] [place]: St: [facility] FAX: Jd France MD [phone] ---- Name: MOHAN MACIAS [facility] : 1990 Age/S: 30/F [address] [facility] Unit #: [id number] Loc: [address] [place], [place]: [place] [address] Acct: [id number] Dis Date: Status: REGER PHONE #: [phone] Exam Date: 06/10/2020 [facility] FAX #: [phone] Reason: Pelvic Pain EXAMS: CPT CODE: [id number] US PELVIS COMPLETE 99304 <Continued> Orig Print D/T: S: 06/10/2020 (4660) PAGE 2 Signed ReportBASI METABOLIC [id number] 20:26:00 Test Item Value Reference Range Interpretation Comments SODIUM (test code = NA) 140 mmol/l 134.0-147.0 N POTASSIUM (test code = K) 4.4 mmol/L 3.6-5.2 N CHLORIDE (test code = CL) 106 mmol/l 98.0-107.0 N CARBON DIOXIDE (test code = CO2) 24.6 mmol/l 21.0-33.0 N ANION GAP (test code = GAP) 13.8 0-20 N GLUCOSE (test code = GLU) 103 mg/dl 70.0-110.0 N BLOOD UREA NITROGEN (test code = 11 mg/dl 7.0-18.0 N BUN) CREATININE (test code = CREAT) 0.86 mg/dL 0.60-1.30 N GFR NON BLACK (test code = 82 mL/min 105-110 L GFRNONBLACK) GFR BLACK (test code = GFRBLACK) 99 mL/min 127-133 L CALCIUM (test code = CA) 9.0 mg/dl 8.0-10.5 N BASIC METABOLIC [id number] 20:24:00 Test Item Value Reference Range Interpretation Comments SODIUM (test code = NA) 140 mmol/l 134.0-147.0 N POTASSIUM (test code = K) 4.4 mmol/L 3.6-5.2 N CHLORIDE (test code = CL) 106 mmol/l 98.0-107.0 N CARBON DIOXIDE (test code = CO2) 24.6 mmol/l 21.0-33.0 N ANION GAP (test code = GAP) 13.8 0-20 N GLUCOSE (test code = GLU) mg/dl 70.0-110.0 BLOOD UREA NITROGEN (test code = mg/dl 7.0-18.0 BUN) CREATININE (test code = CREAT) mg/dL 0.60-1.30 GFR NON BLACK (test code = mL/min 105-110 GFRNONBLACK) GFR BLACK (test code = GFRBLACK) mL/min 127-133 CALCIUM (test code = CA) mg/dl 8.0-10.5 CBC W/AUTO [id number] 20:19:00 Test Item Value Reference Range Interpretation Comments WHITE BLOOD CELL (test code = 9.8 K/mm3 4.5-11.0 N WBC) RED BLOOD CELL (test code = 4.45 M/mm3 3.80-5.20 N RBC) HEMOGLOBIN (test code = HGB) 12.8 gm/dL 12.0-16.0 N HEMATOCRIT (test code = HCT) 39.0 % 36.0-48.0 N MEAN CELL VOLUME (test code = 87.6 UM3 82.0-99.0 N MCV) MEAN CELL HGB (test code = MCH) 28.8 UUG 25.5-32.5 N MEAN CELL HGB CONCETRATION 32.8 gm/dL 29.0-35.5 N (test code = MCHC) RED CELL DISTRIBUTION WIDTH 13.4 % 11.5-15.0 N (test code = RDW) RED CELL DISTRIBUTION WIDTH SD 42.6 fL 34.8-50.2 N (test code = RDW-SD) PLATELET COUNT (test code = 418 K/mm3 150-400 H PLT) MEAN PLATELET VOLUME (test code 9.4 fl 7.4-10.4 N = MPV) NEUTROPHIL % (test code = NT%) 70.6 % 49.0-76.0 N IMMATURE GRANULOCYTE % (test 0.3 % 0.0-0.4 N code = IG%) LYMPHOCYTE % (test code = LY%) 20.2 % 23.0-38.0 L MONOCYTE % (test code = MO%) 7.1 % 1.0-10.0 N EOSINOPHIL % (test code = EO%) 1.4 % 1.0-5.0 N BASOPHIL % (test code = BA%) 0.4 % 0.0-1.0 N NEUTROPHIL # (test code = NT#) 6.9 K/mm3 2.4-6.3 H IMMATURE GRANULOCYTE # (test 0.03 x10 3/uL 0.00-0.07 N code = IG#) LYMPHOCYTE # (test code = LY#) 2.0 K/mm3 1.2-4.0 N MONOCYTE # (test code = MO#) 0.7 K/mm3 0.0-0.6 H EOSINOPHIL # (test code = EO#) 0.1 K/MM3 0.0-0.7 N BASOPHIL # (test code = BA#) 0.0 K/mm3 0.0-0.2 N - XR CHEST 1 [id number] 19:51:00 FAX: Romero Miller MD [phone] [place]: [address]: REG Name: ALDO MACIAS [facility] : 1990 Age[facility]S: 29[facility]F [address] [facility] [id number] Loc: [address] [place]: [place] [address] Acct: [id number] Dis Date: Status: REG ER PHONE #: [phone] Exam Date: 1948 FAX #: [phone] Reason: SOB EXAMS: CPT CODE: [id number] XR CHEST 1 V 28246 AP VIEW OF THE CHEST LOCATION: R16 CLINICAL HISTORY: Shortness of breath. COMPARISON: Chest radiograph 04/16/2019. FINDINGS: The cardiomediastinal shadow is within normal limits. The lungs are clear. No pleural fluids. No acute bony abnormality is found. IMPRESSION: Unremarkable radiographic study of the chest. at 1950 Reported and signed by: Lilibeth Forbes M.D. CC: Romero Miller MD Technologist: NEGRO GEE Trnscrd Date/Time/By: 06/23/2019 (1950) : By: Katalina.JSL PAGE 1 Signed Report FAX: Romero Miller MD [phone] [place]: St: REG Name: ALDO MACIAS [facility] : 1990 Age/S: 29[facility]F [address] [facility]: [id number] Loc: [address] [place]: [place] [address] Acct: [id number] Dis Date: Status: REG ER PHONE#: [phone] Exam Date: 06/23/20191946 FAX #: [phone] Reason: SOB EXAMS: CPT CODE: [id number] XR CHEST 1 V 15569 <Continued> Orig Print D/T: S: 06/23/2019 (1953) PAGE 2 Signed ReportBASIC METABOLIC [id number] 07:11:00 Test Item Value Reference Range Interpretation Comments SODIUM (test code = NA) 138 mmol/l 134.0-147.0 N POTASSIUM (test code = K) 3.6 mmol/L 3.6-5.2 N CHLORIDE (test code = CL) 105 mmol/l 98.0-107.0 N CARBON DIOXIDE (test code = CO2) 25.9 mmol/l 21.0-33.0 N ANION GAP (test code = GAP) 10.7 0-20 N GLUCOSE (test code = GLU) 112 mg/dl 70.0-110.0 H BLOOD UREA NITROGEN (test code = 7 mg/dl 7.0-18.0 N BUN) CREATININE (test code = CREAT) 0.56 mg/dL 0.60-1.30 L GFR NON BLACK (test code = 135 mL/min 105-110 H GFRNONBLACK) GFR BLACK (test code = GFRBLACK) 163 mL/min 127-133 H CALCIUM (test code = CA) 8.2 mg/dl 8.0-10.5 N [id number] 07:11:00 Test Item Value Reference Range Interpretation Comments MAGNESIUM (test code = MAG) 2.2 mg/dl 1.8-2.4 N CBC W/AUTO [id number] 07:09:00 Test Item Value Reference Range Interpretation Comments WHITE BLOOD CELL (test code = 6.8 K/mm3 4.5-11.0 N WBC) RED BLOOD CELL (test code = 3.75 M/mm3 3.80-5.20 L RBC) HEMOGLOBIN (test code = HGB) 10.8 gm/dL 12.0-16.0 L HEMATOCRIT (test code = HCT) 34.6 % 36.0-48.0 L MEAN CELL VOLUME (test code = 92.3 UM3 82.0-99.0 N MCV) MEAN CELL HGB (test code = MCH) 28.8 UUG 25.5-32.5 N MEAN CELL HGB CONCETRATION 31.2 gm/dL 29.0-35.5 N (test code = MCHC) RED CELL DISTRIBUTION WIDTH 13.9 % 11.5-15.0 N (test code = RDW) RED CELL DISTRIBUTION WIDTH SD 47.3 fL 34.8-50.2 N (test code = RDW-SD) PLATELET COUNT (test code = 352 K/mm3 150-400 N PLT) MEAN PLATELET VOLUME (test code 9.3 fl 7.4-10.4 N = MPV) NEUTROPHIL % (test code = NT%) 59.8 % 49.0-76.0 N IMMATURE GRANULOCYTE % (test 0.9 % 0.0-0.4 H code = IG%) LYMPHOCYTE % (test code = LY%) 27.1 % 23.0-38.0 N MONOCYTE % (test code = MO%) 9.5 % 1.0-10.0 N EOSINOPHIL % (test code = EO%) 2.3 % 1.0-5.0 N BASOPHIL % (test code = BA%) 0.4 % 0.0-1.0 N NEUTROPHIL # (test code = NT#) 4.1 K/mm3 2.4-6.3 N IMMATURE GRANULOCYTE # (test 0.06 x10 3/uL 0.00-0.07 N code = IG#) LYMPHOCYTE # (test code = LY#) 1.9 K/mm3 1.2-4.0 N MONOCYTE # (test code = MO#) 0.7 K/mm3 0.0-0.6 H EOSINOPHIL # (test code = EO#) 0.2 K/MM3 0.0-0.7 N BASOPHIL # (test code = BA#) 0.0 K/mm3 0.0-0.2 N [id number] 19:58:00 Test Item Value Reference Range Interpretation Comments GLUBED (test code = GLUBED) 133 mg/dL 70-110 H [id number] 17:42:00 Test Item Value Reference Range Interpretation Comments GLUBED (test code = GLUBED) 104 mg/dL 70-110 N URINALYSIS [id number] 14:24:00 Test Item Value Reference Range Interpretation Comments UA COLOR (test code = COLU) YELLOW UA APPEARANCE (test code = CLEAR APPU) UA GLUCOSE DIPSTICK (test NORMAL mg/dl NORMAL code = DGLUU) UA BILIRUBIN DIPSTICK (test NEGATIVE mg/dL NEGATIVE code = BILU) UA KETONE DIPSTICK (test 5 mg/dl mg/dl NEGATIVE A code = KETU) UA SPECIFIC GRAVITY (test 1.010 1.000-1.030 code = SGU) UA BLOOD DIPSTICK (test NEGATIVE Ranjit/micL NEGATIVE code = RICHARD) UA PH DIPSTICK (test code = 8.0 5.0-9.0 HEATHER) UA PROTEIN DIPSTICK (test NEGATIVE mg/dl NEGATIVE code = PROU) UA UROBILINIOGEN DIPSTICK NORMAL mg/dl NORMAL (test code = URO) UA NITRITE DIPSTICK (test NEGATIVE NEGATIVE code = ESTEFANÍA) UA LEUKOCYTE ESTERASE NEGATIVE Gilberto/micL NEGATIVE DIPSTICK (test code = LEUU) UA WBC (test code = WBCU) 0-2 WBC/HPF NONE UA RBC (test code = RBCU) 0-2 RBC/HPF 0-3 UA EPITHELIAL CELLS (test 0-3 EPI/HPF 0-3 code = EPIU) UA BACTERIA (test code = NONE SEEN NONE BACU) URINALYSIS [id number] 14:17:00 Test Item Value Reference Range Interpretation Comments UA COLOR (test code = COLU) UA APPEARANCE (test code = APPU) UA GLUCOSE DIPSTICK (test NORMAL mg/dl NORMAL code = DGLUU) UA BILIRUBIN DIPSTICK (test NEGATIVE mg/dL NEGATIVE code = BILU) UA KETONE DIPSTICK (test 5 mg/dl mg/dl NEGATIVE A code = KETU) UA SPECIFIC GRAVITY (test 1.010 1.000-1.030 code = SGU) UA BLOOD DIPSTICK (test NEGATIVE Ranjit/micL NEGATIVE code = RICHARD) UA PH DIPSTICK (test code = 8.0 5.0-9.0 HEATHER) UA PROTEIN DIPSTICK (test NEGATIVE mg/dl NEGATIVE code = PROU) UA UROBILINIOGEN DIPSTICK NORMAL mg/dl NORMAL (test code = URO) UA NITRITE DIPSTICK (test NEGATIVE NEGATIVE code = ESTEFANÍA) UA LEUKOCYTE ESTERASE NEGATIVE Gilberto/micL NEGATIVE DIPSTICK (test code = LEUU) UA WBC (test code = WBCU) WBC/HPF NONE UA RBC (test code = RBCU) RBC/HPF 0-3 UA EPITHELIAL CELLS (test EPI/HPF 0-3 code = EPIU) UA BACTERIA (test code = NONE BACU) [id number] 12:23:00 Test Item Value Reference Range Interpretation Comments GLUBED (test code = GLUBED) 110 mg/dL 70-110 N THYROID STIMULATING [id number] 11:58:00 Test Item Value Reference Range Interpretation Comments THYROID STIMULATING 0.36 IU/ML 0.47-5.01 L Result i s in HORMONE (test code = Interna tional TSH) Units/millilite r [id number] 10:57:00 Test Item Value Reference Range Interpretation Comments MAGNESIUM (test code = MAG) 2.3 mg/dl 1.8-2.4 N [id number] 07:07:00 Test Item Value Reference Range Interpretation Comments GLUBED (test code = GLUBED) 112 mg/dL 70-110 H BASIC METABOLIC [id number] 15:37:00 Test Item Value Reference Range Interpretation Comments SODIUM (test code = NA) 132 mmol/l 134.0-147.0 L POTASSIUM (test code = K) 3.9 mmol/L 3.6-5.2 N CHLORIDE (test code = CL) 98 mmol/l 98.0-107.0 N CARBON DIOXIDE (test code = CO2) 24.7 mmol/l 21.0-33.0 N ANION GAP (test code = GAP) 13.2 0-20 N GLUCOSE (test code = GLU) 189 mg/dl 70.0-110.0 H BLOOD UREA NITROGEN (test code = 7 mg/dl 7.0-18.0 N BUN) CREATININE (test code = CREAT) 0.77 mg/dL 0.60-1.30 N GFR NON BLACK (test code = 93 mL/min 105-110 L GFRNONBLACK) GFR BLACK (test code = GFRBLACK) 113 mL/min 127-133 L CALCIUM (test code = CA) 9.0 mg/dl 8.0-10.5 N BASIC METABOLIC [id number] 15:35:00 Test Item Value Reference Range Interpretation Comments SODIUM (test code = NA) 132 mmol/l 134.0-147.0 L POTASSIUM (test code = K) 3.9 mmol/L 3.6-5.2 N CHLORIDE (test code = CL) 98 mmol/l 98.0-107.0 N CARBON DIOXIDE (test code = CO2) 24.7 mmol/l 21.0-33.0 N ANION GAP (test code = GAP) 13.2 0-20 N GLUCOSE (test code = GLU) mg/dl 70.0-110.0 BLOOD UREA NITROGEN (test code = mg/dl 7.0-18.0 BUN) CREATININE (test code = CREAT) mg/dL 0.60-1.30 GFR NON BLACK (test code = mL/min 105-110 GFRNONBLACK) GFR BLACK (test code = GFRBLACK) mL/min 127-133 CALCIUM (test code = CA) mg/dl 8.0-10.5 - XR CHEST 1 [id number] 15:33:00 FAX: Romero Miller MD [phone] [place]: St: PRE Name: MARIANNE MACIASINE LYRIC [facility] : 1990 Age/S: 28/F [address] [facility] Unit #: [id number] Loc: [address] Phys: [place] [id number] Acct: [id number] Dis Date: Status: PRE ER PHONE #: [phone] Exam Date: 04/16/2019 1532 FAX #: [phone] Reason: SOB EXAMS: CPT CODE: [id number] XR CHEST 1 V 82592 Chest one viewClinical indication: Shortness of breath Comparison: 04/02/2019 Location B2 Lungs are clear. Heart, mediastinum and bony structures are unremarkable. Clothing artifact overlies the subscapular left upper lobe Impression: Normal [id number] Reported and signed by: Rosa Soria M.D. CC: Romero Miller MD Technologist: PAZ TOPETE Trnscrd Date/Time/By: 04/16/2019 (9034) : By: Fina PAGE 1 Signed Report FAX: Eduardo Miller MD [phone] [place]: St: PRE Name: COLLEENALDO LYIRC [facility] : 1990 Age/S: 28/F [address] [facility] Unit #: [id number] Loc: [address] Phys: [place] [address] Acct: [id number] Dis Date: Status: PRE ER PHONE #: [phone] Exam Date: 04/16/2019 1532 FAX #: [phone] Reason: SOB EXAMS: CPT CODE: [id number] XR CHEST 1 V 11018 <Continued> Orig Print D/T: S: 04/16/2019 (7159) PAGE 2 Signed ReportCBC W/AUTO [id number] 15:29:00 Test Item Value Reference Range Interpretation Comments WHITE BLOOD CELL (test code = 14.4 K/mm3 4.5-11.0 H WBC) RED BLOOD CELL (test code = 4.22 M/mm3 3.80-5.20 N RBC) HEMOGLOBIN (test code = HGB) 12.0 gm/dL 12.0-16.0 N HEMATOCRIT (test code = HCT) 37.9 % 36.0-48.0 N MEAN CELL VOLUME (test code = 89.8 UM3 82.0-99.0 N MCV) MEAN CELL HGB (test code = MCH) 28.4 UUG 25.5-32.5 N MEAN CELL HGB CONCETRATION 31.7 gm/dL 29.0-35.5 N (test code = MCHC) RED CELL DISTRIBUTION WIDTH 13.6 % 11.5-15.0 N (test code = RDW) RED CELL DISTRIBUTION WIDTH SD 44.6 fL 34.8-50.2 N (test code = RDW-SD) PLATELET COUNT (test code = 415 K/mm3 150-400 H PLT) MEAN PLATELET VOLUME (test code 10.1 fl 7.4-10.4 N = MPV) NEUTROPHIL % (test code = NT%) 83.7 % 49.0-76.0 H IMMATURE GRANULOCYTE % (test 0.7 % 0.0-0.4 H code = IG%) LYMPHOCYTE % (test code = LY%) 9.7 % 23.0-38.0 L MONOCYTE % (test code = MO%) 4.9 % 1.0-10.0 N EOSINOPHIL % (test code = EO%) 0.8 % 1.0-5.0 L BASOPHIL % (test code = BA%) 0.2 % 0.0-1.0 N NEUTROPHIL # (test code = NT#) 12.0 K/mm3 2.4-6.3 H IMMATURE GRANULOCYTE # (test 0.10 x10 3/uL 0.00-0.07 H code = IG#) LYMPHOCYTE # (test code = LY#) 1.4 K/mm3 1.2-4.0 N MONOCYTE # (test code = MO#) 0.7 K/mm3 0.0-0.6 H EOSINOPHIL # (test code = EO#) 0.1 K/MM3 0.0-0.7 N BASOPHIL # (test code = BA#) 0.0 K/mm3 0.0-0.2 N URINALYSIS [id number] 18:18:00 Test Item Value Reference Range Interpretation Comments UA COLOR (test code = COLU) YELLOW UA APPEARANCE (test code = CLEAR APPU) UA GLUCOSE DIPSTICK (test NORMAL mg/dl NORMAL code = DGLUU) UA BILIRUBIN DIPSTICK (test NEGATIVE mg/dL NEGATIVE code = BILU) UA KETONE DIPSTICK (test NEGATIVE mg/dl NEGATIVE code = KETU) UA SPECIFIC GRAVITY (test 1.015 1.000-1.030 code = SGU) UA BLOOD DIPSTICK (test NEGATIVE Ranjit/micL NEGATIVE code = RICHARD) UA PH DIPSTICK (test code = 6.5 5.0-9.0 HEATHER) UA PROTEIN DIPSTICK (test NEGATIVE mg/dl NEGATIVE code = PROU) UA UROBILINIOGEN DIPSTICK NORMAL mg/dl NORMAL (test code = URO) UA NITRITE DIPSTICK (test NEGATIVE NEGATIVE code = ESTEFANÍA) UA LEUKOCYTE ESTERASE NEGATIVE Gilberto/micL NEGATIVE DIPSTICK (test code = LEUU) UA WBC (test code = WBCU) 1-3/HPF WBC/HPF NONE UA RBC (test code = RBCU) 0-2 RBC/HPF 0-3 UA EPITHELIAL CELLS (test 0-3 EPI/HPF 0-3 code = EPIU) UA BACTERIA (test code = TRACE NONE BACU) UR HCG [id number] 18:18:00 Test Item Value Reference Range Interpretation Comments UR HCG QUAL (test code = HCGQLU) NEGATIVE NEGATIVE URINALYSIS [id number] 18:15:00 Test Item Value Reference Range Interpretation Comments UA COLOR (test code = COLU) UA APPEARANCE (test code = APPU) UA GLUCOSE DIPSTICK (test NORMAL mg/dl NORMAL code = DGLUU) UA BILIRUBIN DIPSTICK (test NEGATIVE mg/dL NEGATIVE code = BILU) UA KETONE DIPSTICK (test NEGATIVE mg/dl NEGATIVE code = KETU) UA SPECIFIC GRAVITY (test 1.015 1.000-1.030 code = SGU) UA BLOOD DIPSTICK (test NEGATIVE Ranjit/micL NEGATIVE code = RICHARD) UA PH DIPSTICK (test code = 6.5 5.0-9.0 HEATHER) UA PROTEIN DIPSTICK (test NEGATIVE mg/dl NEGATIVE code = PROU) UA UROBILINIOGEN DIPSTICK NORMAL mg/dl NORMAL (test code = URO) UA NITRITE DIPSTICK (test NEGATIVE NEGATIVE code = ESTEFANÍA) UA LEUKOCYTE ESTERASE NEGATIVE Gilberto/micL NEGATIVE DIPSTICK (test code = LEUU) UA WBC (test code = WBCU) WBC/HPF NONE UA RBC (test code = RBCU) RBC/HPF 0-3 UA EPITHELIAL CELLS (test EPI/HPF 0-3 code = EPIU) UA BACTERIA (test code = NONE BACU) UR HCG [id number] 18:15:00 Test Item Value Reference Range Interpretation Comments UR HCG QUAL (test code = HCGQLU) NEGATIVE NEGATIVE URINALYSIS [id number] 18:12:00 Test Item Value Reference Range Interpretation Comments UA COLOR (test code = COLU) UA APPEARANCE (test code = APPU) UA GLUCOSE DIPSTICK (test NORMAL mg/dl NORMAL code = DGLUU) UA BILIRUBIN DIPSTICK (test NEGATIVE mg/dL NEGATIVE code = BILU) UA KETONE DIPSTICK (test NEGATIVE mg/dl NEGATIVE code = KETU) UA SPECIFIC GRAVITY (test 1.015 1.000-1.030 code = SGU) UA BLOOD DIPSTICK (test NEGATIVE Ranjit/micL NEGATIVE code = RICHARD) UA PH DIPSTICK (test code = 6.5 5.0-9.0 HEATHER) UA PROTEIN DIPSTICK (test NEGATIVE mg/dl NEGATIVE code = PROU) UA UROBILINIOGEN DIPSTICK NORMAL mg/dl NORMAL (test code = URO) UA NITRITE DIPSTICK (test NEGATIVE NEGATIVE code = ESTEFANÍA) UA LEUKOCYTE ESTERASE NEGATIVE Gilberto/micL NEGATIVE DIPSTICK (test code = LEUU) UA WBC (test code = WBCU) WBC/HPF NONE UA RBC (test code = RBCU) RBC/HPF 0-3 UA EPITHELIAL CELLS (test EPI/HPF 0-3 code = EPIU) UA BACTERIA (test code = NONE BACU) UR HCG [id number] 18:12:00 Test Item Value Reference Range Interpretation Comments UR HCG QUAL (test code = HCGQLU) NEGATIVE COMPREHENSIVE METABOLIC [id number] 15:11:00 Test Item Value Reference Range Interpretation Comments SODIUM (test code = NA) 136 mmol/l 134.0-147.0 N POTASSIUM (test code = K) 4.3 mmol/L 3.6-5.2 N CHLORIDE (test code = CL) 101 mmol/l 98.0-107.0 N CARBON DIOXIDE (test code = CO2) 26.7 mmol/l 21.0-33.0 N ANION GAP (test code = GAP) 12.6 0-20 N GLUCOSE (test code = GLU) 206 mg/dl 70.0-110.0 H BLOOD UREA NITROGEN (test code = 11 mg/dl 7.0-18.0 N BUN) CREATININE (test code = CREAT) 0.65 mg/dL 0.60-1.30 N GFR NON BLACK (test code = 113 mL/min 105-110 H GFRNONBLACK) GFR BLACK (test code = GFRBLACK) 137 mL/min 127-133 H TOTAL PROTEIN (test code = PROT) 8.2 gm/dL 6.4-8.2 N ALBUMIN (test code = ALB) 4.0 gm/dl 3.2-4.7 N CALCIUM (test code = CA) 9.2 mg/dl 8.0-10.5 N BILIRUBIN TOTAL (test code = 0.3 mg/dl 0.0-1.0 N BILT) SGOT/AST (test code = AST) 14 Units/L 15.0-37.0 L SGPT/ALT (test code = ALT) 29 Units/L 12.0-78.0 N ALKALINE PHOSPHATASE TOTAL (test 75 Units/L 50.0-136.0 N code = ALKP) COMPREHENSIVE METABOLIC [id number] 14:59:00 Test Item Value Reference Range Interpretation Comments SODIUM (test code = NA) 136 mmol/l 134.0-147.0 N POTASSIUM (test code = K) 4.3 mmol/L 3.6-5.2 N CHLORIDE (test code = CL) 101 mmol/l 98.0-107.0 N CARBON DIOXIDE (test code = CO2) 26.7 mmol/l 21.0-33.0 N ANION GAP (test code = GAP) 12.6 0-20 N GLUCOSE (test code = GLU) mg/dl 70.0-110.0 BLOOD UREA NITROGEN (test code = mg/dl 7.0-18.0 BUN) CREATININE (test code = CREAT) mg/dL 0.60-1.30 GFR NON BLACK (test code = mL/min 105-110 GFRNONBLACK) GFR BLACK (test code = GFRBLACK) mL/min 127-133 TOTAL PROTEIN (test code = PROT) gm/dL 6.4-8.2 ALBUMIN (test code = ALB) gm/dl 3.2-4.7 CALCIUM (test code = CA) mg/dl 8.0-10.5 BILIRUBIN TOTAL (test code = mg/dl 0.0-1.0 BILT) SGOT/AST (test code = AST) Units/L 15.0-37.0 SGPT/ALT (test code = ALT) Units/L 12.0-78.0 ALKALINE PHOSPHATASE TOTAL (test Units/L 50.0-136.0 code = ALKP) CBC W/AUTO [id number] 14:56:00 Test Item Value Reference Range Interpretation Comments WHITE BLOOD CELL (test code = 10.3 K/mm3 4.5-11.0 N WBC) RED BLOOD CELL (test code = 4.34 M/mm3 3.80-5.20 N RBC) HEMOGLOBIN (test code = HGB) 12.2 gm/dL 12.0-16.0 N HEMATOCRIT (test code = HCT) 38.6 % 36.0-48.0 N MEAN CELL VOLUME (test code = 88.9 UM3 82.0-99.0 N MCV) MEAN CELL HGB (test code = MCH) 28.1 UUG 25.5-32.5 N MEAN CELL HGB CONCETRATION 31.6 gm/dL 29.0-35.5 N (test code = MCHC) RED CELL DISTRIBUTION WIDTH 14.2 % 11.5-15.0 N (test code = RDW) RED CELL DISTRIBUTION WIDTH SD 45.8 fL 34.8-50.2 N (test code = RDW-SD) PLATELET COUNT (test code = 449 K/mm3 150-400 H PLT) MEAN PLATELET VOLUME (test code 9.4 fl 7.4-10.4 N = MPV) NEUTROPHIL % (test code = NT%) 81.6 % 49.0-76.0 H IMMATURE GRANULOCYTE % (test 1.0 % 0.0-0.4 H code = IG%) LYMPHOCYTE % (test code = LY%) 11.5 % 23.0-38.0 L MONOCYTE % (test code = MO%) 5.8 % 1.0-10.0 N EOSINOPHIL % (test code = EO%) 0.0 % 1.0-5.0 L BASOPHIL % (test code = BA%) 0.1 % 0.0-1.0 N NEUTROPHIL # (test code = NT#) 8.4 K/mm3 2.4-6.3 H IMMATURE GRANULOCYTE # (test 0.10 x10 3/uL 0.00-0.07 H code = IG#) LYMPHOCYTE # (test code = LY#) 1.2 K/mm3 1.2-4.0 N MONOCYTE # (test code = MO#) 0.6 K/mm3 0.0-0.6 N EOSINOPHIL # (test code = EO#) 0.0 K/MM3 0.0-0.7 N BASOPHIL # (test code = BA#) 0.0 K/mm3 0.0-0.2 N - CT ANGIO [id number] 14:13:00 Name: ALDO MACIAS [facility] : 1990 Age/S: 28 / F [address] [place] [address] Unit #: [id number] Loc: [place] [address] Phys: Corin Coyle Debbie [facility] Acct: [id number] Dis Date: Status: REG ER PHONE #: [phone] Exam Date: 04/02/2019 1340 FAX #: [phone] Reason: CHEST PAIN; EVALUATE FOR PE-HX OF PE EXAMS: CPT CODE: [id number] CT ANGIO CHEST [address]8318 PROCEDURE: CTA CHEST WITH IV CONTRAST AND 3-D MIP RECONSTRUCTION PULMONARY ARTERIES INDICATION: Acute chest pain. COMPARISON: Today's chest x-ray. TECHNIQUE: CTA of the pulmonary arteries was performed with 100 ml Isovue 300intravenous contrast. Helical imaging performed apices to the lung bases. Multiplanar and 3-D MIP angiographic reconstructions are reviewed. CT imaging performed at this location utilizes radiation dose optimization techniques which include one or more of the following: -Automated exposure control -Adjustment of the mA and/or [...] No evidence of pulmonary emboli. END IMPRESSION [id number] PAGE 1 Signed Report (CONTINUED) Name: ALDO MACIAS [facility] : 1990 Age/S: 28 /F [address] [place] [address] Unit #: [id number] Loc: [place] [address] Phys: Corin Coyle Acct: [id number] Dis Date: Status: REG ER PHONE #: [phone] Exam Date: 04/02/2019 1340 FAX #: [phone] Reason: CHEST PAIN; EVALUATE FOR PE-HX OF PE EXAMS: CPT CODE: [id number] CT ANGIO CHEST 55563 (C ontinued) at 1413 Reported and signed by: Ilya Adams M.D. CC: Romero Miller MD; Corin Coyle Technologist:RT Gi(R) CTDI: DLP: Trnscb Date/Time: 04/02/2019 (141) Gilma Orig Print D/T: S: 04/02/2019 (6142) PAGE 2 Signed ReportPROTHROMBIN [id number] 12:41:00 Test Item Value Reference Range Interpretation Comments PROTHROMBIN TIME 11.6 SECONDS 9.3-12.9 N PATIENT (test code = PTP) INTERNATIONAL NORMAL 1.0 0.8-1.2 N TARGET INR BY RATIO (test code = INDICATIO N Indication INR) INR1. Prophylax is of venous thrombos is 2.0 - 3.0 (orthoped ic surgery), Proph ylaxis of venous throm bosis (other than hig h-risk surgery), Treat ment of Deep Vein Thrombosis/Pulm onary Embolism, Preve ntion of systemic emb olism - Tissue heart va lves, Acute Myocardia l Infarction (to prevent systemic emboli sm), Valvular heart disease, Atrial Fibrillation, Bileaflet mecha nical valve in aortic position.2. Mec hanical prosthetic valv es (high risk), 2. 5 - 3.5 Presence of Lup us Anticoagulant o r Antiphospholipi d Antibodies, Pre vention of systemic emb olism - Acute Myocardia l Infarction (to prevent recurrent infar ct). THROMBOPLASTIN TIME [id number] 12:41:00 Test Item Value Reference Range Interpretation Comments THROMBOPLASTIN TIME 31.7 Seconds 25.0-39.5 N Therape utic Range: PARTIAL (test code = 50.4 - 88.3 Seconds PTT) Effective 02/27/2019 [id number] 12:41:00 Test Item Value Reference Range Interpretation Comments D-DIMER (test 258 ng/mlFEU <=500 N THROMBOSIS AND /OR PULMONARY code = EMBOLISM AND TH E CLINICAL DDIMER) CUT- OFF VALUE FOR EXCLUSION (500 ng/mL FEU) OF THESE CONDITIONSIS VA LIDATED BY THE MANUFACTURE R OF THE METHOD. A NEGAT MERI D-DIMER RESULT WHEN COM BINED WITH A CLINICALASSESSM ENT OF LOW PRETEST PROBABI LITY HAS BEEN SHOWN TO HAVEA HIGH NEGATIVE PREDICTIVE VALU E OF DVT OR PE. D-DIMER MIRIAN UES >500 ng/mL FEU ARE N OT DIAGNOSTIC FOR DVT, PEor D IC WITHOUT OTHER CONFIRMAT ORY TESTS AND APPROPRIATECLIN ICAL EUALUATIONS. HCG SERUM [id number] 12:36:00 Test Item Value Reference Range Interpretation Comments HCG SERUM QUAL (test code = SERUM NEGATIVE NEGATIVE HCGQL) [id number] 12:23:00 Test Item Value Reference Range Interpretation Comments METHEMOGLOBIN (test code = METHGB) 0.0 % 0-1.5 N CBC W/AUTO [id number] 10:43:00 Test Item Value Reference Range Interpretation Comments WHITE BLOOD CELL (test code = 7.67 x10 3/uL 4.5-11.0 N WBC) RED BLOOD CELL (test code = 4.15 x10 6/uL 3.54-5.02 N RBC) HEMOGLOBIN (test code = HGB) 11.9 g/dL 11.0-15.0 N HEMATOCRIT (test code = HCT) 37.6 % 33.0-45.0 N MEAN CELL VOLUME (test code = 90.6 fL 81.0-99.0 N MCV) MEAN CELL HGB (test code = MCH) 28.7 pg 27.0-33.0 N MEAN CELL HGB CONCETRATION 31.6 g/dL 33.0-37.0 L (test code = MCHC) RED CELL DISTRIBUTION WIDTH CV 14.5 % 11.5-14.5 N (test code = RDW) RED CELL DISTRIBUTION WIDTH SD 47.7 fL 37.0-54.0 N (test code = RDW-SD) PLATELET COUNT (test code = 398 x10 3/uL 150-400 N PLT) MEAN PLATELET VOLUME (test code 9.7 fL 7.0-9.0 H = MPV) NEUTROPHIL % (test code = NT%) 65.4 % 56.0-77.0 N IMMATURE GRANULOCYTE % (test 0.9 % 0.0-2.0 N code = IG%) LYMPHOCYTE % (test code = LY%) 21.8 % 14.0-32.0 N MONOCYTE % (test code = MO%) 9.4 % 4.8-9.0 H EOSINOPHIL % (test code = EO%) 2.0 % 0.3-3.7 N BASOPHIL % (test code = BA%) 0.5 % 0.0-2.0 N NUCLEATED RBC % (test code = 0.0 % 0-0 N NRBC%) NEUTROPHIL # (test code = NT#) 5.02 x10 3/uL 2.0-7.6 N IMMATURE GRANULOCYTE # (test 0.07 x10 3/uL 0.00-0.03 H code = IG#) LYMPHOCYTE # (test code = LY#) 1.67 x10 3/uL 1.0-3.8 N MONOCYTE # (test code = MO#) 0.72 x10 3/uL 0.1-0.8 N EOSINOPHIL # (test code = EO#) 0.15 x10 3/uL 0.0-0.2 N BASOPHIL # (test code = BA#) 0.04 x10 3/uL 0.0-0.2 N NUCLEATED RBC # (test code = 0.00 x10 3/uL 0.0-0.1 N NRBC#) MANUAL DIFF REQUIRED (test code NO = MDIFF) COMPREHENSIVE METABOLIC [id number] 10:35:00 Test Item Value Reference Range Interpretation Comments SODIUM (test code = NA) 136 mEq/L 134-147 N POTASSIUM (test code = 4.1 mEq/L 3.4-5.0 N K) CHLORIDE (test code = 105 mEq/L 100-108 N CL) CARBON DIOXIDE (test 25 mEq/L 21-33 N code = CO2) ANION GAP (test code = 10 0-20 N GAP) GLUCOSE (test code = 126 mg/dL 70-110 H GLU) BLOOD UREA NITROGEN 8 mg/dL 7-18 N (test code = BUN) GLOMERULAR FILTRATION 144.9 105-110 H Units of measure = RATE (test code = GFR) ml/mi n/1.73 m2 CREATININE (test code = 0.5 mg/dL 0.6-1.3 L CREAT) TOTAL PROTEIN (test 7.4 g/dL 6.4-8.2 N code = PROT) ALBUMIN (test code = 3.60 g/dL 3.4-5.0 N ALB) CALCIUM (test code = 8.6 mg/dL 8.0-10.5 N CA) BILIRUBIN TOTAL (test 0.30 mg/dL 0.0-1.0 N code = BILT) SGOT/AST (test code = 25 IUnit/L 15-37 N AST) SGPT/ALT (test code = 53 IUnit/L 15-65 N ALT) ALKALINE PHOSPHATASE 85 IUnit/L 20-125 N TOTAL (test code = ALKP) [id number] 10:35:00 Test Item Value Reference Range Interpretation Comments LIPASE (test code = LIP) 85 IUnit/L 73-393 N COMPREHENSIVE METABOLIC [id number] 10:31:00 Test Item Value Reference Range Interpretation Comments SODIUM (test code = NA) 136 mEq/L 134-147 N POTASSIUM (test code = 4.1 mEq/L 3.4-5.0 N K) CHLORIDE (test code = 105 mEq/L 100-108 N CL) CARBON DIOXIDE (test 25 mEq/L 21-33 N code = CO2) ANION GAP (test code = 10 0-20 N GAP) GLUCOSE (test code = 126 mg/dL 70-110 H GLU) BLOOD UREA NITROGEN 8 mg/dL 7-18 N (test code = BUN) GLOMERULAR FILTRATION 144.9 105-110 H Units of measure = RATE (test code = GFR) ml/mi n/1.73 m2 CREATININE (test code = 0.5 mg/dL 0.6-1.3 L CREAT) TOTAL PROTEIN (test g/dL 6.4-8.2 code = PROT) ALBUMIN (test code = 3.60 g/dL 3.4-5.0 N ALB) CALCIUM (test code = 8.6 mg/dL 8.0-10.5 N CA) BILIRUBIN TOTAL (test mg/dL 0.0-1.0 code = BILT) SGOT/AST (test code = 25 IUnit/L 15-37 N AST) SGPT/ALT (test code = 53 IUnit/L 15-65 N ALT) ALKALINE PHOSPHATASE IUnit/L 20-125 TOTAL (test code = ALKP) [id number] 10:31:00 Test Item Value Reference Range Interpretation Comments LIPASE (test code = LIP) 85 IUnit/L 73-393 N URINALYSIS [id number] 10:26:00 Test Item Value Reference Range Interpretation Comments UA COLOR (test code = COLU) YELLOW YEL/STRAW UA APPEARANCE (test code = CLEAR CLEAR APPU) UA GLUCOSE DIPSTICK (test code NEGATIVE NEGATIVE = DGLUU) UA BILIRUBIN DIPSTICK (test NEGATIVE NEGATIVE code = BILU) UA KETONE DIPSTICK (test code NEGATIVE NEGATIVE = KETU) UA SPECIFIC GRAVITY (test code 1.011 1.005-1.030 N = SGU) UA BLOOD DIPSTICK (test code = NEGATIVE NEGATIVE RICHARD) UA PH DIPSTICK (test code = 7.0 5.0-7.0 N HEATHER) UA PROTEIN DIPSTICK (test code NEGATIVE NEGATIVE = PROU) UA UROBILINIOGEN DIPSTICK 0.2 mg/dL 0.2-1.0 (test code = URO) UA NITRITE DIPSTICK (test code NEGATIVE NEGATIVE = ESTEFANÍA) UA LEUKOCYTE ESTERASE DIPSTICK NEGATIVE NEGATIVE (test code = LEUU) UA WBC (test code = WBCU) 0-3 WBC/HPF 0-3 UA RBC (test code = RBCU) 0-3 RBC/HPF 0-3 UA BACTERIA (test code = BACU) NONE SEEN /HPF NONE SEEN UA SQUAMOUS CELLS (test code = 0-5 /HPF NONE SEEN SQU) UA MUCUS (test code = MUCU) 1+ /LPF NONE SEEN - XR CHEST 2 [id number] 10:26:00 FAX: Romero Miller MD [phone] [place]: St: REG FAX: Corin Coyle [phone] Name: ALDO MACIAS [facility] [place] : 1990 Age/S: 28/F [address] [place] [address] Unit #: [id number] Loc: [place] [address] Phys: Corin Coyle Acct: [id number] Dis Date: Status: REG ER PHONE #: [phone] Exam Date: 04/02/2019 1014 FAX #: [phone] Reason: CHEST PAIN EXAMS: CPT CODE: [id number] XR CHEST 2 V [id number] CHEST RADIOGRAPHS - PA AND LATERAL: COMPARISON: July 14, 2017 CLINICAL HISTORY: CHEST PAIN The cardiopericardial silhouette is within normal limits. Lungs are clear. No vascularcongestion or pneumothorax. IMPRESSION: No acute pulmonary abnormality. at 1026 Reported and signed by: Rayshawn Teran M.D. CC: Romero Miller MD; Corin Coyle Technologist: RT Chrissy(Luarie) Trnscrd Date/Time/By: 04/02/2019 (1026): By: [email or web address] Orig Print D/T: S: 04/02/2019 (7150) PAGE 1 Signed ReportURINALYSIS W/ [id number] 23:33:00 Test Item Value Reference Range Interpretation Comments COLOR (BEAKER) (test code = 470) Yellow CLARITY (BEAKER) (test code = 469) Clear SPECIFIC GRAVITY UA (BEAKER) (test 1.025 1.001-1.035 code = 468) PH UA (BEAKER) (test code = 467) 6.5 5.0-8.0 PROTEIN UA (BEAKER) (test code = 30 mg/dL Negative A 464) GLUCOSE UA (BEAKER) (test code = Negative Negative 365) KETONES UA (BEAKER) (test code = Negative Negative 371) BILIRUBIN UA (BEAKER) (test code = Negative Negative 462) BLOOD UA (BEAKER) (test code = 461) Moderate Negative A NITRITE UA (BEAKER) (test code = Negative Negative 465) LEUKOCYTE ESTERASE UA (BEAKER) Negative Negative (test code = 466) UROBILINOGEN UA (BEAKER) (test code 0.2 mg/dL 0.2-1.0 = 463) RBC UA (BEAKER) (test code = 519) 108 /HPF WBC UA (BEAKER) (test code = 520) 3 /HPF MUCUS (BEAKER) (test code = 1574) Moderate SQUAMOUS EPITHELIAL (BEAKER) (test 2 /HPF code = 516) SOURCE(BEAKER) (test code = 2795) SCREEN, [id number] 23:28:00 Test Item Value Reference Range Interpretation Comments TEST URINE (BEAKER) (test Negative code = 583) [id number] 21:25:00 Test Item Value Reference Range Interpretation Comments LIPASE (BEAKER) (test code = 749) 25 U/L 8-78 [id number] 21:25:00 Test Item Value Reference Range Interpretation Comments AMYLASE (BEAKER) (test 40 U/L 25-125 Speci men slightly code = 349) hemolyzed BASIC METABOLIC [id number] 21:25:00 Test Item Value Reference Range Interpretation Comments SODIUM (BEAKER) 136 meq/L 136-145 (test code = 381) POTASSIUM (BEAKER) 4.2 meq/L 3.5-5.1 Specimen slightly (test code = 379) hemolyzed CHLORIDE (BEAKER) 104 meq/L 98-107 (test code = 382) CO2 (BEAKER) (test 25 meq/L 22-29 code = 355) BLOOD UREA NITROGEN 13 mg/dL 7-21 (BEAKER) (test code = 354) CREATININE (BEAKER) 0.65 mg/dL 0.57-1.25 Specimen slightly (test code = 358) hemolyzed GLUCOSE RANDOM 128 mg/dL 70-105 H (BEAKER) (test code = 652) CALCIUM (BEAKER) 9.5 mg/dL 8.4-10.2 (test code = 697) EGFR (BEAKER) (test 107 mL/min/1.73 ESTIM ATED GFR IS code = 1092) sq m NOT ACCURATE CREATININE CLEARANCE IN PREDICTING GLOMERULAR FILTRATION RATE . ESTIMATED GFR I S NOT APPLICABLE FOR DIALYSIS PATIEN TS. HEPATIC FUNCTION [id number] 21:25:00 Test Item Value Reference Range Interpretation Comments TOTAL PROTEIN (BEAKER) 7.6 gm/dL 6.0-8.3 Speci men slightly (test code = 770) hemolyzed ALBUMIN (BEAKER) (test 4.1 g/dL 3.5-5.0 Speci men slightly code = 1145) hemolyzed BILIRUBIN TOTAL 0.3 mg/dL 0.2-1.2 Specimen sli ghtly (BEAKER) (test code = hemoly zed 377) BILIRUBIN DIRECT 0.2 mg/dL 0.1-0.5 Specimen sl ightly (BEAKER) (test code = hemoly zed 706) ALKALINE PHOSPHATASE 75 U/L 40-150 (BEAKER) (test code = 346) AST (SGOT) (BEAKER) 24 U/L 5-34 Specimen slightly (test code = 353) hemolyzed ALT (SGPT) (BEAKER) 43 U/L 6-55 Specimen slightly (test code = 347) hemolyzed CBC W/PLT COUNT & AUTO [id number] 21:07:00 Test Item Value Reference Range Interpretation Comments WHITE BLOOD CELL COUNT (BEAKER) 9.9 K/ L 3.5-10.5 (test code = 775) RED BLOOD CELL COUNT (BEAKER) 4.33 M/ L 3.93-5.22 (test code = 761) HEMOGLOBIN (BEAKER) (test code = 12.6 GM/DL 11.2-15.7 410) HEMATOCRIT (BEAKER) (test code = 40.4 % 34.1-44.9 411) MEAN CORPUSCULAR VOLUME (BEAKER) 93.3 fL 79.4-94.8 (test code = 753) MEAN CORPUSCULAR HEMOGLOBIN 29.1 pg 25.6-32.2 (BEAKER) (test code = 751) MEAN CORPUSCULAR HEMOGLOBIN CONC 31.2 GM/DL 32.2-35.5 L (BEAKER) (test code = 752) RED CELL DISTRIBUTION WIDTH 14.0 % 11.7-14.4 (BEAKER) (test code = 412) PLATELET COUNT (BEAKER) (test 417 K/CU MM 150-450 code = 756) MEAN PLATELET VOLUME (BEAKER) 9.3 fL 9.4-12.3 L (test code = 754) NUCLEATED RED BLOOD CELLS 0 /100 WBC 0-0 (BEAKER) (test code = 413) NEUTROPHILS RELATIVE PERCENT 69 % (BEAKER) (test code = 429) LYMPHOCYTES RELATIVE PERCENT 21 % (BEAKER) (test code = 430) MONOCYTES RELATIVE PERCENT 7 % (BEAKER) (test code = 431) EOSINOPHILS RELATIVE PERCENT 1 % (BEAKER) (test code = 432) BASOPHILS RELATIVE PERCENT 0 % (BEAKER) (test code = 437) NEUTROPHILS ABSOLUTE COUNT 6.77 K/ L 1.56-6.13 H (BEAKER) (test code = 670) LYMPHOCYTES ABSOLUTE COUNT 2.09 K/ L 1.18-3.74 (BEAKER) (test code = 414) MONOCYTES ABSOLUTE COUNT (BEAKER) 0.72 K/ L 0.24-0.36 H (test code = 415) EOSINOPHILS ABSOLUTE COUNT 0.13 K/ L 0.04-0.36 (BEAKER) (test code = 416) BASOPHILS ABSOLUTE COUNT (BEAKER) 0.04 K/ L 0.01-0.08 (test code = 417) IMMATURE GRANULOCYTES-RELATIVE 1 % 0-1 PERCENT (BEAKER) (test code = 2801) CT, [id number] 15:27:00Reason for exam:->abdominal painIs the patient ?->NoWhat [...] ductal dilatation. ADRENALS: No adrenal nodules.KIDNEYS/URETERS: No hydronephro sis, stones, or solid mass lesions.PELVIC ORGANS/BLADDER: A [...] images 46 through 51. BONES AND SOFT TISSUES: Unremarkable. IMPRESSION: 1.No definite explanation for the abdominal pain on this CT. 2.There appears to be a connection between the jejunum and the skin. This could be a site of a prior jejunostomy or afistula. 3.Mild splenomegaly. 4.Leiomyomas of the uterus. Signed: Keny Lee Verified Date/Time: 09/04/2018 15:27:26 Reading Location: [address] Radiology Reading Room HEPATIC FUNCTION [id number] 14:11:00 Test Item Value Reference Range Interpretation Comments TOTAL PROTEIN (BEAKER) (test code = 7.7 gm/dL 6.0-8.5 770) ALBUMIN (BEAKER) (test code = 1145) 4.0 g/dL 3.5-5.0 BILIRUBIN TOTAL (BEAKER) (test code 0.6 mg/dL 0.1-1.2 = 377) BILIRUBIN DIRECT (BEAKER) (test 0.4 mg/dL 0.0-0.4 code = 706) ALKALINE PHOSPHATASE (BEAKER) (test 62 U/L 30-115 code = 346) AST (SGOT) (BEAKER) (test code = 36 U/L 5-40 353) ALT (SGPT) (BEAKER) (test code = 33 U/L 5-50 347) [id number] 14:11:00 Test Item Value Reference Range Interpretation Comments LIPASE (BEAKER) (test code = 749) 81 U/L 40-240 BASIC METABOLIC [id number] 14:11:00 Test Item Value Reference Range Interpretation Comments SODIUM (BEAKER) 137 meq/L 135-148 (test code = 381) POTASSIUM (BEAKER) 4.4 meq/L 3.6-5.5 (test code = 379) CHLORIDE (BEAKER) 101 meq/L 98-106 (test code = 382) CO2 (BEAKER) (test 23 meq/L 24-32 L code = 355) BLOOD UREA NITROGEN 13 mg/dL 10-26 (BEAKER) (test code = 354) CREATININE (BEAKER) 0.47 mg/dL 0.50-1.20 L (test code = 358) GLUCOSE RANDOM 117 mg/dL 70-110 H (BEAKER) (test code = 652) CALCIUM (BEAKER) 9.0 mg/dL 8.5-10.5 (test code = 697) EGFR (BEAKER) (test 156 mL/min/1.73 ESTIM ATED GFR IS code = 1092) sq m NOT ACCURATE CREATININE CLEARANCE IN PREDICTING GLOMERULAR FILTRATION RATE . ESTIMATED GFR I S NOT APPLICABLE FOR DIALYSIS PATIEN TS. URINALYSIS W/ [id number] 14:05:00 Test Item Value Reference Range Interpretation Comments COLOR (BEAKER) (test code = Yellow 470) CLARITY (BEAKER) (test code = Clear 469) SPECIFIC GRAVITY UA (BEAKER) 1.015 1.001-1.035 (test code = 468) PH UA (BEAKER) (test code = 7.0 5.0-8.0 467) PROTEIN UA (BEAKER) (test code Negative Negative = 464) GLUCOSE UA (BEAKER) (test code Negative Negative = 365) KETONES UA (BEAKER) (test code Negative Negative = 371) BILIRUBIN UA (BEAKER) (test Negative Negative code = 462) BLOOD UA (BEAKER) (test code = Negative Negative 461) NITRITE UA (BEAKER) (test code Positive Negative A = 465) LEUKOCYTE ESTERASE UA (BEAKER) Negative Negative (test code = 466) UROBILINOGEN UA (BEAKER) (test 0.2 mg/dL 0.2-1.0 code = 463) BACTERIA (BEAKER) (test code = Moderate 517) AMORPHOUS CRYSTALS (BEAKER) Few (test code = 1584) RBC UA-MANUAL (BEAKER) (test None Seen /HPF code = 1659) WBC UA-MANUAL (BEAKER) (test <5 /HPF code = 1661) SQUAMOUS EPITHELIAL MANUAL <5 /HPF (BEAKER) (test code = 1663) SOURCE(BEAKER) (test code = 7630) SCREEN, [id number] 14:00:00 Test Item Value Reference Range Interpretation Comments TEST URINE (BEAKER) (test Negative code = 583) CBC W/PLT COUNT & AUTO [id number] 13:59:00 Test Item Value Reference Range Interpretation Comments WHITE BLOOD CELL COUNT (BEAKER) 10.9 K/ L 4.0-10.0 H (test code = 775) RED BLOOD CELL COUNT (BEAKER) 4.27 M/ L 4.00-5.00 (test code = 761) HEMOGLOBIN (BEAKER) (test code = 12.3 GM/DL 12.0-15.0 410) HEMATOCRIT (BEAKER) (test code = 37.9 % 36.0-45.0 411) MEAN CORPUSCULAR VOLUME (BEAKER) 88.7 fL 82.0-99.0 (test code = 753) MEAN CORPUSCULAR HEMOGLOBIN 28.7 pg 27.0-33.0 (BEAKER) (test code = 751) MEAN CORPUSCULAR HEMOGLOBIN CONC 32.4 GM/DL 32.0-36.0 (BEAKER) (test code = 752) RED CELL DISTRIBUTION WIDTH 13.7 % 10.3-14.2 (BEAKER) (test code = 412) PLATELET COUNT (BEAKER) (test 577 K/CU MM 150-430 H code = 756) MEAN PLATELET VOLUME (BEAKER) 7.4 fL 6.5-10.5 (test code = 754) NEUTROPHILS RELATIVE PERCENT 68 % (BEAKER) (test code = 429) LYMPHOCYTES RELATIVE PERCENT 21 % (BEAKER) (test code = 430) MONOCYTES RELATIVE PERCENT 8 % (BEAKER) (test code = 431) EOSINOPHILS RELATIVE PERCENT 2 % (BEAKER) (test code = 432) BASOPHILS RELATIVE PERCENT 1 % (BEAKER) (test code = 437) NEUTROPHILS ABSOLUTE COUNT 7.41 K/ L 1.80-8.00 (BEAKER) (test code = 670) LYMPHOCYTES ABSOLUTE COUNT 2.30 K/ L 1.48-4.50 (BEAKER) (test code = 414) MONOCYTES ABSOLUTE COUNT (BEAKER) 0.91 K/ L 0.00-1.30 (test code = 415) EOSINOPHILS ABSOLUTE COUNT 0.20 K/ L 0.00-0.50 (BEAKER) (test code = 416) BASOPHILS ABSOLUTE COUNT ([facility]) 0.11 K/ L 0.00-0.20 (test code = 417) PROTHROMBIN [id number] 09:47:00 Test Item Value Reference Range Interpretation Comments PROTIME ([facility]) (test code = 16.2 seconds 11.7-14.7 H 759) INR ([facility]) (test code = 370) 1.3 <=5.9 RECOMMENDED COUMADIN/WARFARIN INR THERAPY RANGESSTANDARD DOSE: 2.0 - 3.0 Includes: PROPHYLAXIS for venous thrombosis, systemic embolization; TREATMENT for venous thrombosis and/or pulmonary embolus.HIGH RISK: Target INR is 2.5-3.5 for patients with mechanical heart valves.POCT-GLUCOSE [id number] 09:37:00 Test Item Value Reference Range Interpretation Comments POC-GLUCOSE METER 95 mg/dL 70-[address] [facility] [address] ([facility]) (test code = [place] [address] 1538)
[2023-01-16 13:04] VITALS: TEMP 98.2
[2023-01-16 13:05] VITALS: BP 109/53; O2SAT 98
== END 2023-01-16 12:46 | disposition home or self-care (01) ==
LOC: ER 12:00
DX: T24.212A Burn of second degree of left thigh, initial encounter (principal)
CPT/HCPCS: 99282